=== PATIENT | male | born 1965 | race Caucasian/White ===

== ENCOUNTER 2018-01-26 13:25 | Emergency (ER) | payer SELFPAY ==
[2018-01-26 13:26] VITALS: BP 210/106; PULSE 101; RESP 18; TEMP 35.7; O2SAT 96; BMI 48.7
--- NOTE | 2018-01-26 13:35 | CT_ITS ---
STUDY: CT ABDOMEN AND PELVIS WITHOUT CONTRAST REASON FOR EXAM: Male, 52 years old. Pain, hernia RADIATION DOSAGE (If Supplied By Facility): CTDIvol = ( 33.97 ) mGy, DLP = ( 2071.05 ) mGycm TECHNIQUE: Transaxial images were obtained from the dome of the diaphragm to the symphysis pubis without oral contrast, and without intravenous contrast. Sagittal and coronal images were reconstructed. Individualized dose optimization techniques were used for this CT. COMPARISON: None. FINDINGS: Body wall soft tissues: Wall portions of the right and left anterior lateral abdominal wall are partially excluded from the field of view and not dilated. There is a tiny fat filled umbilical hernia. There is no inguinal hernia. Osseous structures: No acute osseous process. Inferior chest: Bibasilar bronchial wall thickening with mild tubular bronchiectasis, in a pattern most consistent with chronic inflammation/infection/chronic bronchiolitis. This could potentially reflect chronic low-grade aspiration. Close attention is advised. A follow-up CT chest for evaluation of the remainder of each Distal esophagus is normal. The cardiac base is normal in size with no effusion. Coronary calcifications are present. Hepatobiliary: Craniocaudal liver 24 cm, hepatomegaly. Normal gallbladder and biliary tree. Pancreas: No acute process. Spleen: Normal. Adrenal glands: Normal. Urogenital: Chronic bilateral perinephric stranding. Punctate nonobstructing calyceal calculus left renal lower pole, 3 punctate nonobstructing calyceal calculus of the right kidney mid to lower pole. Each of these calculi measures less than 2 mm. There is a cyst of the right renal inferior pole measuring approximately 2.9 cm in diameter, a small portion of which is exophytic, round shape with sharply circumscribed cuello. Grossly simple cystic features but incompletely characterized. Collecting systems and ureters are nondilated. Normal urinary bladder. Normal prostate and seminal vesicles. Pelvic floor and sidewalls and retroperitoneum: No mass or adenopathy. Vasculature: No acute process. Stomach: No acute process. Small bowel and mesentery: No acute process. Large bowel: Normal appendix. Unremarkable large bowel and rectum. Free fluid or free air: None. CT/Abdomen/Pelvis without Cont IMPRESSION: 1. There is a small fat filled umbilical hernia, likely of no clinical consequence. 2. Hepatomegaly. 3. Nonobstructing calyceal calculi of the right and left kidneys. No evidence of recent calculus passage. 4. No other acute abdominopelvic process is evident. Electronically Signed: Renny Jo, at 15:30 EDT Tel , Service support ,
--- NOTE | 2018-01-26 13:37 | ED.DCSUM_ITS ---
- ER Visit Summary Date of Service: 01/26/18 Chief Complaint: I think I have a hernia History of Present Illness: The patient is a 52 M who believes he has a hernia. He has felt pressure in his left upper quadrant for 1 month. No nausea, vomiting, diarrhea or constipation. No urinary symptoms. He has no history of hernias in the past that his has had a hernia. No history of any abdominal surgeries. He states he has a history of fatty liver disease. Physical Examination: Vital signs reviewed. HEENT exam unremarkable. Heart is regular rate and rhythm without murmurs. Lungs are clear to auscultation. Abdomen is soft and nontender. Extremities reveal no edema. Skin exam normal. Neurologic exam normal. Test Results: Labs are unremarkable except for glucose of 192. CAT scan reveals a very small umbilical hernia with other chronic issues. Emergency Department Course and Treatment: Patient has a very small umbilical hernia. It is not causing the pain and pressure in his left upper quadrant. Patient will be discharged he will follow-up with the surgeon for the small hernia. Treatment Plan: [] Disposition: Discharge Impression: Umbilical hernia This note was generated with [employer] dictation software. It may contain incorrect words, spelling, and punctuation that were not noted in review of the chart prior to signing ED Disposition - Plan for ED Patient: Chief Complaint: Abd Pain Referrals: Vimal White DO [Primary Care Provider] -
[2018-01-26] MEDS: 0.9% Normal Saline 1,000 ML 1000 ML IV (13:59)
[2018-01-26 14:03] VITALS: BP 172/85; PULSE 91; RESP 16; O2SAT 98
[2018-01-26 14:05] LABS: Absolute Lymphocyte Count 2.04 X10^3/ul (0.83-4.51); Basophil# 0.07 X10^3/uL; Basophil% 0.8 % (0-1); Eosinophils% 4.5 % (0-5); Hematocrit 41.9 % (40-54); Hemoglobin 14.2 g/dl (13.0-16.5); Lymphocyte # 2.04 X10^3/ul (4.0); Lymphocyte % 22.8 % (19-41); Mean Corp Hgb Conc 33.9 g/gl (32-36); Mean Corpuscular Hgb 32.1 pg (27.0-32.0); Mean Corpuscular Volume 94.6 fL (80-94); Mean Platelet Vol. 9.9 fl (6.2-12.0); Monocyte% 4.5 % (0-10); Neutrophil # 6.02 X10^3/uL (2.7-7.7); Neutrophil % 67.2 % (47-70); Platelet Count 178 K/mm3 (150-450); RBC Distribution Width SD 43.4 fl (35.1-43.9); Red Blood Count 4.43 M/mm3 (4.6-6.2)
[2018-01-26 14:11] LABS: POSITIVE COUNT NO; POSITIVE DIFFERENTIAL NO; POSITIVE MORPHOLOGY NO
[2018-01-26 14:15] LABS: ALB/GLOB Ratio 0.9 RATIO (0.9-2.4); AST(SGOT) 28 U/L (15-37); Alanine Aminotransfer ALT/SGPT 26 U/L (16-61); Albumin, Serum 3.5 g/dL (3.2-5.0); Alkaline Phosphatase 101 U/L (45-117); Anion Gap 6 (5-15); BUN 9 mg/dL (7-18); BUN/Creat Ratio 9.6 RATIO (10-20); Chloride 104 mmol/L (98-107); Creatinine, Serum 0.93 mg/dL (0.70-1.30); EST Glomerular Filtration Rate 90 mL/min (>60); Est Glom Filt Rate - Afr Amer 109 mL/min (>60); Estimated Creatinine Clearance 92.92 ml/min; Globulin 3.9 g/dL (2.2-4.2); Glucose 192 mg/dL (74-106); Potassium 3.5 mmol/L (3.5-5.1); Protein, Total 7.4 g/dL (6.4-8.2); Sodium Level 138 mmol/L (136-145)
--- NOTE | 2018-01-26 15:40 | ED.DEP ---
ED Disposition - Plan for ED Patient: Disposition: Home or Assisted Living Chief Complaint: Abd Pain Instructions: What Is a Hernia? Referrals: Vimal White DO [Primary Care Provider] -
[2018-01-26 16:04] VITALS: BP 168/94; PULSE 80; RESP 16; O2SAT 97
== END 2018-01-26 16:06 | disposition home or self-care (01) ==
PROVIDERS: Emergency Provider Emergency Medicine; Family Provider Student in an Organized Health Care Education/Training Program; PCP Student in an Organized Health Care Education/Training Program
DX: K42.9 Umbilical hernia without obstruction or gangrene (principal); K76.0 Fatty (change of) liver, not elsewhere classified
CPT/HCPCS: 74176; 80053; 85025; 96360; 96361; 99283; J7030; A4216

== ENCOUNTER 2018-04-13 13:26 | Emergency (ER) | payer SELFPAY ==
[2018-04-13 13:27] VITALS: BP 175/97; PULSE 83; RESP 18; TEMP 36.1; O2SAT 97; BMI 47.9
--- NOTE | 2018-04-13 14:15 | EKG12_ITS ---
Test Reason : GEN ILLNESS Blood Pressure : / mmHG Vent. Rate : 072 BPM Atrial Rate : 072 BPM P-R Int : 206 ms QRS Dur : 100 ms QT Int : 392 ms P-R-T Axes : 052 000 103 degrees QTc Int : 429 ms Normal sinus rhythm Nonspecific T wave abnormality Abnormal ECG Confirmed by BREANNA HODGES, MONET ([id number]), clinical editor IMAN PAEZ ([id number]) on 04/15/2018 1:27:40 PM Referred By: JUAN DAVID Confirmed By:MONET CARLOS MD
--- NOTE | 2018-04-13 14:15 | RAD_ITS ---
STUDY: X-RAY CHEST REASON FOR EXAM: Male, 52 years old. Fatigue. Weakness and muscle cramping. TECHNIQUE: PA and lateral views of the chest. COMPARISON: Comparison is made with prior study dated April 11 FINDINGS: Increased markings at the left lung base with areas of confluence suggestive of a left basilar infiltrate. Mild increased markings at the right lung base suggestive of atelectasis. There is no demonstrated pleural abnormality. There is borderline cardiomegaly. Normal mediastinum and kalia. Normal visualized pulmonary arteries. There is atherosclerotic tortuosity of the aortic arch and descending thoracic aorta. There are diffuse degenerative changes of the visualized thoracic spine. Normal visualized ribs, clavicles, and shoulders. There is no demonstrated abnormality of the visualized soft tissue structures of the upper abdomen. RAD/Chest PA and Lateral IMPRESSION: 5 suggestive of infiltration and/or atelectasis at the left lung base with mild degree of increased markings at the right lung base as well. Electronically Signed: Hernando Cook MD at 15:34 EDT Tel [phone], Service support ,
[2018-04-13] MEDS: 0.9% Normal Saline 1,000 ML 1000 ML IV (14:34)
--- NOTE | 2018-04-13 15:00 | ED.VISSUMM ---
- ER Visit Summary Date of Service: 04/13/18 Chief Complaint: Generalized weakness History of Present Illness: The patient is a 52 M presents to the emergency department with approximately 6 weeks of generalized weakness. Patient does have a history of hypothyroidism, hypertension, and tdo-izigvly-rsrawykuo diabetes. He states he is not really been compliant with his medications. He describes some diffuse muscle aches and arthralgias. He describes low energy. He has had a scant cough. He denies any weight loss, fevers, or night sweats. He denies exertional dyspnea. The patient did have similar symptoms before when his thyroid was low. Physical Examination: Vital signs reviewed General: Well-nourished, well-developed Head: Normocephalic, atraumatic Eyes: Pupils equal and reactive, extraocular muscles intact Neck, supple, no lymphadenopathy Heart: Regular rate and rhythm Respiratory: No distress, clear bilaterally Abdomen: Soft, nontender, nondistended, no peritoneal signs Back: Nontender Extremities: Nontender, no edema, no cords Skin: Normal color no rash Neuro: Alert and oriented, no focal or lateralizing deficits Test Results: [] Emergency Department Course and Treatment: Metabolic workup was pursued. IV was established. Patient was given IV fluids. EKG was obtained which showed sinus rhythm without acute ischemic change. Labs are relatively unremarkable except for a markedly decreased thyroid with a TSH of almost 60. The patient does have the same symptoms before secondary to not taking his medications. I was going to order IV replacement, but the patient is able to tolerate p.o. He is given a large dose of 400 which is equivalent to 200 IV. His x-ray shows atelectasis versus infiltrate in the left base. He has had a scant cough. Again, is not hypoxic or tachypneic. He does smoke. I am going to cover him for atypical infection with doxycycline. The patient was counseled on the importance of taking his medications. At this time, I do feel it is safe for outpatient therapy. He will be discharged home. Treatment Plan: [] Disposition: Discharge Impression: 1. Hypothyroidism 2. Bronchitis This note was generated with [employer] software. It may contain incorrect words, spelling, and punctuation that were not noted in review of the chart prior to signing ED Disposition - Plan for ED Patient: Chief Complaint: General Illness Instructions: ED Upper Resp Infec Abx Tx, ED Hypothyroidism Prescriptions: Levothyroxine [Synthroid] 75 mcg PO DAILY #30 tab Doxycycline Monohydrate 100 mg PO BID #20 cap Referrals: Vimal White DO [Primary Care Provider] -
[2018-04-13 15:07] LABS: ALB/GLOB Ratio 0.8 RATIO (0.9-2.4); AST(SGOT) 38 U/L (15-37); Alanine Aminotransfer ALT/SGPT 37 U/L (16-61); Albumin, Serum 3.6 g/dL (3.2-5.0); Alkaline Phosphatase 96 U/L (45-117); Anion Gap 7 (5-15); BUN 11 mg/dL (7-18); BUN/Creat Ratio 9.5 RATIO (10-20); Calcium,Total 8.3 mg/dL (8.5-10.1); Chloride 99 mmol/L (98-107); Creatinine, Serum 1.16 mg/dL (0.70-1.30); EST Glomerular Filtration Rate 70 mL/min (>60); Est Glom Filt Rate - Afr Amer 85 mL/min (>60); Estimated Creatinine Clearance 74.49 ml/min; Globulin 4.5 g/dL (2.2-4.2); Glucose 146 mg/dL (74-106); Potassium 3.5 mmol/L (3.5-5.1); Protein, Total 8.1 g/dL (6.4-8.2); Sodium Level 138 mmol/L (136-145)
[2018-04-13 15:14] LABS: Absolute Lymphocyte Count 1.88 X10^3/ul (0.83-4.51); Absolute Neutrophil Count 6.5 X10^3/uL (2.0-7.7); Basophil# 0.05 X10^3/uL; Basophil% 0.5 % (0-1); Eosinophils% 3.3 % (0-5); Hematocrit 43.6 % (40-54); Hemoglobin 14.4 g/dl (13.0-16.5); Lymphocyte # 1.88 X10^3/ul (4.0); Lymphocyte % 20.6 % (19-41); Mean Corpuscular Hgb 31.8 pg (27.0-32.0); Mean Corpuscular Volume 96.2 fL (80-94); Mean Platelet Vol. 10.3 fl (6.2-12.0); Monocyte# 0.36 X10^3/uL; Monocyte% 3.9 % (0-10); Neutrophil # 6.51 X10^3/uL (2.7-7.7); Neutrophil % 71.5 % (47-70); Platelet Count 198 K/mm3 (150-450); RBC Distribution Width CV 14.2 % (11.6-14.6); RBC Distribution Width SD 50.3 fl (35.1-43.9); Red Blood Count 4.53 M/mm3 (4.6-6.2); White Blood Count 9.1 K/mm3 (4.4-11.0)
[2018-04-13 15:15] LABS: POSITIVE COUNT NO; POSITIVE DIFFERENTIAL NO; POSITIVE MORPHOLOGY NO
[2018-04-13] MEDS: Levothyroxine 100 MCG Tablet 400 MCG PO (15:38)
[2018-04-13 15:47] VITALS: BP 145/84; PULSE 72; RESP 18
== END 2018-04-13 15:47 | disposition home or self-care (01) ==
LOC: ED 14:43
PROVIDERS: Emergency Provider Emergency Medicine; Family Provider Student in an Organized Health Care Education/Training Program; PCP Student in an Organized Health Care Education/Training Program
DX: E03.9 Hypothyroidism, unspecified (principal); J40 Bronchitis, not specified as acute or chronic; I10 Essential (primary) hypertension; E11.9 Type 2 diabetes mellitus without complications; E66.9 Obesity, unspecified; Z72.0 Tobacco use; Z91.14 Patient's other noncompliance with medication regimen
CPT/HCPCS: 71046; 80053; 84443; 85025; 93005; 96360; 99285; A4216

== ENCOUNTER 2018-07-07 08:53 | Outpatient (RCR) | payer SELFPAY ==
[2018-07-07 09:13] VITALS: BP 149/98; PULSE 78; RESP 18; TEMP 36.8; BMI 53.1
--- NOTE | 2018-07-07 10:20 | HP.PCM_ITS ---
(1) Leg swelling Status: Chronic Current Visit: Yes Code(s): M79.89 - Other specified soft tissue disorders (2) Edema of both legs Status: Chronic Current Visit: Yes Code(s): R60.0 - Localized edema (3) Dependent edema Status: Chronic Current Visit: Yes Code(s): R60.9 - Edema, unspecified (4) Diabetes mellitus Status: Chronic Current Visit: Yes Qualifiers: Diabetes mellitus type: type 2 Code(s): E11.9 - Type 2 diabetes mellitus without complications (5) Morbid obesity with BMI of 50.0-59.9, adult Status: Chronic Current Visit: Yes Code(s): E66.01 - Morbid (severe) obesity due to excess calories; Z68.43 - Body mass index (BMI) 50-59.9, adult (6) Poor hygiene Status: Chronic Current Visit: Yes Code(s): R46.0 - Very low level of personal hygiene (7) Hypertension Status: Chronic Current Visit: No Code(s): I10 - Essential (primary) hypertension (8) Hypothyroidism Status: Chronic Current Visit: No Qualifiers: Hypothyroidism type: postoperative Qualified Code(s): E89.0 - Postprocedural hypothyroidism Code(s): E03.9 - Hypothyroidism, unspecified (9) Depression Status: Chronic Current Visit: No Code(s): F32.9 - Major depressive disorder, single episode, unspecified (10) Callus of foot Status: Chronic Current Visit: Yes Code(s): L84 - Corns and callosities (11) Hypertrophic condition of skin Status: Chronic Current Visit: Yes Code(s): L91.9 - Hypertrophic disorder of the skin, unspecified (12) History of thyroid cancer Status: Chronic Current Visit: No Code(s): Z85.850 - Personal history of malignant neoplasm of thyroid History of Present Illness Date of Service: 07/07/18 Chief Complaint: Chronic swelling and edema of the lower extremities, associated with skin changes of the right great toe and left posterior calf History of Wound: This is a 53-year-old morbidly obese male with multiple medical problems, which include diabetes mellitus, hypertension, hypothyroidism, depression, and a history of thyroid cancer. The patient presents with significant skin changes involving the left posterior calf and on the right great toe. These do not appear to be josé luis open ulcerations at this time. The patient has a history of chronic swelling and edema in his lower extremities bilaterally. It appears to be due to chronic dependency. The patient sleeps in a sitting position. He sits a great deal of each day. He claims to be active, though his lifestyle, pre-existing medical conditions, and need to assist his ill likely limit his activity level. Patient claims to have had skin changes on the left posterior calf for many months. He has a large callus on his right great toe as well, which she admits is likely due to poorly-fitted boots. He is currently on a prescription for Keflex orally, as prescribed by his primary care physician. Past Medical History Past Medical History: Chronic Problems Leg swelling (Chronic) Edema of both legs (Chronic) Dependent edema (Chronic) Diabetes mellitus (Chronic) Morbid obesity with BMI of 50.0-59.9, adult (Chronic) Poor hygiene (Chronic) Hypertension (Chronic) Hypothyroidism (Chronic) Depression (Chronic) Callus of foot (Chronic) Hypertrophic condition of skin (Chronic) History of thyroid cancer (Chronic) Past Medical History: The patient denies a history of myocardial infarction, congestive heart failure, cerebrovascular accident, pulmonary disease, and renal disease. He has a history of thyroid cancer. He has a history of diabetes mellitus, hypertension, hypothyroidism (postsurgical), depression, and morbid obesity. Surgical History: - - Patient has previously undergone partial thyroidectomy. He has also undergone left knee surgery in the past. Allergies/Adverse Reactions: Allergies No Known Allergies Allergy (Verified 04/13/18 13:31) Home Medications: Ambulatory Orders Medication Instructions Recorded Aspirin [Aspir-Low] 81 mg PO DAILY 04/11/17 Citalopram Hydrobromide [Celexa] 40 mg PO DAILY #60 tablet 04/11/17 Levothyroxine [Synthroid] 75 mcg PO DAILY 04/11/17 Lisinopril [Zestril] 10 mg PO DAILY 04/11/17 Metformin HCl 500 mg PO BID 04/11/17 Simvastatin 20 mg PO QHS 05/29/17 Penicillin V Potassium 500 mg PO 4X/DAY #40 tablet 07/16/17 Doxycycline Monohydrate 100 mg PO BID #20 cap 04/13/18 Levothyroxine [Synthroid] 75 mcg PO DAILY #30 tab 04/13/18 - Family History Paternal - - The patient's father is 78 years of age, with a history of diabetes mellitus, alcoholism, and heart disease. The patient's mother is , having at the age of 73 with a history of cerebrovascular accident. Social History: The patient lives with his sick , who suffers from morbid obesity, Parkinson's disease, and diabetes mellitus, among other elements. The patient claims he spends a great deal of his time tending to her medical needs. 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 He quit smoking in the . He is a former heavy user of alcohol, having quit approximately 26 years ago, now only drinking occasionally. Lives: Spouse/ Significant Other Smoking Status: Former smoker Tobacco Use: Non-smoker Alcohol: Rare Drugs: None Review of Systems Constitutional: Denies: Chills, Fever, Weight Change Eyes: Denies: Pain, Vision Change HEENT: Denies: Difficulty Hearing, Difficulty Swallowing, Sinus Congestion Cardiovascular: Denies: Chest Pain, Palpitations Respiratory: Denies: Cough, Shortness of Breath Gastrointestinal: Denies: Diarrhea, Nausea, Vomiting Genitourinary: Denies: Dysuria, Hematuria Endocrine: Denies: Heat/ Cold Intolerance, Polydipsia, Polyuria Hematologic/ Lymphatic: Denies: Easy Bruising, Easy Bleeding - Physical Exam Vital Signs Temp Pulse Resp BP 98.2 F 78 18 149/98 H 07/07/18 09:13 07/07/18 09:13 07/07/18 09:13 07/07/18 09:13 General: Alert, Oriented x3, Cooperative, No apparent distress, Well developed, Well nourished, - - The patient is morbidly obese. The patient's hygiene is suboptimal. It appears as though he has not bathed or showered in quite some time, with dirt noted diffusely about his body and limbs. Furthermore, there is an odor which corresponds to the patient's appearance. HEENT: Atraumatic, PERRLA, EOMI, Normocephalic Oral: Moist Mucosa, - - Poor dentition is noted Neck: Supple, No JVD, Negative Hepatojugular Reflux, No Nuchal Rigidity, Trachea Midline Lungs: Clear to auscultation, Normal air movement, No rhonchi Cardiovascular: Regular rate, Regular Rhythm, Normal S1, Normal S2 Abdomen: Soft, Non Tender, Non-Distended, Obese Extremities: No clubbing, No cyanosis, No Calf Tenderness, Edema - Bilateral lower extremity swelling and edema is noted. It is rather significant in severity. Circumference measurements are documented elsewhere. The left posterior calf reveals diffusely hypertrophic skin with multiple fissures and crevices. There are no josé luis open wounds or ulcerations. There is a very large callus involving the right great toe, though no josé luis open wounds. Patient's toenails are extremely long and untended. Dirt and debris is caked on the the digits of the patient's feet., - - The left posterior calf reveals diffusely hypertrophic skin with multiple fissures and crevices. There are no josé luis open wounds or ulcerations. There is a very large callus involving the right great toe, though no josé luis open wounds. Patient's toenails are extremely long and untended. Dirt and debris is caked on the the digits of the patient's feet. Multiple skin tags are noted in the patient's axillary regions bilaterally. Skin: No rashes Wound Measurements and Assessment WC - Nurse 1 - General Ulcer Measurement Start: 07/07/18 09:04 Freq: Status: Active Protocol: Activity Type Activity Date Activity User E-Sign Co-Sign Detail Recorded Client Recorded Date Recorded By Document 07/07/18 09:13 AN [id number] 07/07/18 09:48 AN 07/07/18 09:13 Wound Center Nurse 1 [Ulcer Assessment] #2 Right great toe plantar -Current Size (cm) - Length 0.7 -Current Size (cm) - Width 0.3 -Current Size (cm) - Depth 0.4 -Total Square Cm 0.21 -Date of Last Picture (Recall this 07/07/18 field) -Photo Taken Yes -Epithelialization None Present -Tunneling No -Undermining/Tunneling No -Classification - Thickness Full Thickness without Exposed Support Structure -Classification - Pressure Ulcer Unstageable -Exudate Amt Small -Exudate Type Serous -Wound Margin Distinct, Outline Attached -Granulation Amt None Present (0 %) -Necrosis Amt Large (67-100%) -Necrotic Tissue Type Eschar -Texture (Capri-wound Skin Appearance) Callus -Temperature (Capri-wound Skin No Abnormality Appearance) (Pt Warm) -Tenderness on Palpation (Capri-wound No Skin Appearance) -Ulcer Cleansing Rinsed/ Irrigated with Saline -Foul Odor after Cleansing Yes -Anesthetic Used 4% Lidocaine Solution #1 left posterior calf -Current Size (cm) - Length 16 -Current Size (cm) - Width 21 -Current Size (cm) - Depth 0.1 -Total Square Cm 336 -Date of Last Picture (Recall this 07/07/18 field) -Photo Taken Yes -Epithelialization None Present -Tunneling No -Undermining/Tunneling No -Classification - Thickness Full Thickness without Exposed Support Structure -Exudate Amt Large -Exudate Type Serosanguineous -Wound Margin Indistinct, Non -Visible -Granulation Amt Small (1-33%) -Granulation Quality [place] -Slough/Fibrin Yes -Necrosis Amt Large (67-100%) -Necrotic Tissue Type Adherent Slough -Texture (Capri-wound Skin Appearance) Localized Edema -Moisture (Capri-wound Skin Appearance Weeping ) Dry/Scaly -Color (Capri-wound Skin Appearance) Erythema -Temperature (Capri-wound Skin No Abnormality Appearance) (Pt Warm) -Tenderness on Palpation (Capri-wound No Skin Appearance) -Ulcer Cleansing Rinsed/ Irrigated with Saline -Foul Odor after Cleansing Yes -Anesthetic Used 4% Lidocaine Solution [Edema Assessment] -Right Calf (cm) 54.5 -Right Ankle (cm) 32.5 -Left Calf (cm) 53.6 -Left Ankle (cm) 33.8 Musculoskeletal: No Muscle Wasting Neurological: Cranial nerves II-XII grossly intact, Neuro grossly intact Psych/Mental Status: Normal Affect, Appropriate, Alert and oriented to time, place, person, mood and affect Debridement Note No debridement was completed today Assessment/Plan Active Problems Leg swelling (Chronic) Edema of both legs (Chronic) Dependent edema (Chronic) Diabetes mellitus (Chronic) Morbid obesity with BMI of 50.0-59.9, adult (Chronic) Poor hygiene (Chronic) Callus of foot (Chronic) Hypertrophic condition of skin (Chronic) Assessment: This is a 53-year-old morbidly obese male with medical problems as delineated above. He presents with chronic swelling and edema in his lower extremities, which appears to be related to chronic dependency. Skin changes are noted on the left posterior calf and on the right great toe. Initial inspection reveals no josé luis open wounds. Plan: We are to initiate a diagnostic evaluation. Blood tests will be obtained, including a CBC, conference of metabolic profile, hemoglobin A1c, and a serum prealbumin. We are to obtain lower extremity vascular studies, both a noninvasive lower extremity arterial study and a venous duplex examination. Patient will return following completion of his diagnostic studies. We are to implement conservative treatment measures initially, which have been discussed with the patient thoroughly and in detail. Patient is to elevate his lower extremities as much as possible. Elevation is to be to heart level, or higher. This is to occur even during daytime hours. He is to sleep on a flat mattress at night, rather than in a sitting position. Activity has been encouraged. Prolonged idle sitting has been discouraged. The patient has been advised to lose weight. Ultimately, following completion of his vascular studies, the patient will be introduced to some form of compression to his lower extremities. This will likely involve either [place] boots or multilayer compression wraps, and ultimately graduated compression stockings, which can be worn for the long-term. Issues related to hygiene are clearly an issue for this patient. This has been discussed with the patient. He has been encouraged to improve hygiene, and to bathe or shower frequently. We are to request consultation with podiatry for assessment of the callus on the patient's right great toe, counseling as to proper foot care, implementation of proper footwear, and trimming of the patient's toenails, as he is known to be diabetic. The patient is non-smoker. Influenza vaccine was not administered today. The patient stands 5 feet 9 inches tall. He weighs 260 pounds. His BMI is 53.1, which places him in a morbidly obese, stage III obesity category. Weight loss has been recommended, in collaboration with the patient's primary care physician has been advised.
== END 2018-07-23 23:59 ==
LOC: WC 08:53
PROVIDERS: Family Provider Student in an Organized Health Care Education/Training Program; PCP Student in an Organized Health Care Education/Training Program; Visit Provider Surgery
DX: R60.0 Localized edema (principal); M79.89 Other specified soft tissue disorders; E66.9 Obesity, unspecified; E66.01 Morbid (severe) obesity due to excess calories; Z68.43 Body mass index [BMI] 50.0-59.9, adult; Z71.3 Dietary counseling and surveillance; I10 Essential (primary) hypertension; L84 Corns and callosities; Z85.850 Personal history of malignant neoplasm of thyroid; E03.9 Hypothyroidism, unspecified; F32.9 Major depressive disorder, single episode, unspecified; Z79.899 Other long term (current) drug therapy; Z79.82 Long term (current) use of aspirin; Z79.84 Long term (current) use of oral hypoglycemic drugs; Z87.891 Personal history of nicotine dependence
CPT/HCPCS: 99205; G0463

== ENCOUNTER 2018-10-28 23:27 | Emergency (ER) | payer SELFPAY ==
[2018-10-28 23:28] VITALS: BP 185/103; PULSE 92; RESP 16; TEMP 37; O2SAT 95; BMI 54.6
--- NOTE | 2018-10-28 23:44 | CT_ITS ---
STUDY: CT ABDOMEN AND PELVIS WITHOUT CONTRAST REASON FOR EXAM: Male, 53 years old. Left flank pain RADIATION DOSAGE (If Supplied By Facility): CTDIvol = ( 24.18 ) mGy, DLP = ( 2502.97 ) mGycm TECHNIQUE: Transaxial images were obtained from the dome of the diaphragm to the symphysis pubis without oral contrast, and without intravenous contrast. Sagittal and coronal images were reconstructed. Individualized dose optimization techniques were used for this CT. COMPARISON: None. FINDINGS: The platelike atelectatic changes in the lung bases-especially the left The liver is normal. No dilated intrahepatic biliary radicles. The gallbladder is contracted and contains no calculi. The spleen is normal. The pancreas is normal. Both adrenals are normal. Nonobstructing calyceal calculi bilaterally. 3 are in the right kidney with the largest measuring 1.2 cm 2. Are in the left kidney with the larger measuring 3.7 mm. No hydronephrosis The stomach is normal. There is no bowel distention, acute appendicitis or diverticulitis. No constricting lesions are seen in large bowel. The abdominal wall is intact with no hernias. There is no ascites or any free intraperitoneal air. No indication of epiploic appendagitis The vascular structures in the retroperitoneum are normal. There is no retrocrural, retroperitoneal or mesenteric adenopathy. The bones and joints are normal. The urinary bladder is normal.--The prostate is normal. There is no inguinal or pelvic adenopathy. There is no inguinal hernia. . CT/Abdomen/Pelvis without Cont IMPRESSION: Nonobstructing calyceal calculi bilaterally. No acute appendicitis or diverticulitis. Bibasilar platelike atelectatic changes Electronically Signed: Ender Siddiqui MD at 1:04 EDT Tel , Service support ,
--- NOTE | 2018-10-28 23:47 | RAD_ITS ---
STUDY: X-RAY CHEST REASON FOR EXAM: Male, 53 years old. Cough TECHNIQUE: One view COMPARISON: April 13, 2018 FINDINGS: There is cardiomegaly with central vascular congestive changes. Platelike atelectatic changes remain in the left lung base. This is slightly elevated left hemidiaphragm. Normal visualized thoracic spine. Normal visualized ribs, clavicles, and shoulders. There is no demonstrated abnormality of the visualized soft tissue structures of the upper abdomen. RAD/Chest PA and Lateral IMPRESSION: Cardiomegaly with central vascular congestion. Platelike atelectatic changes in the left lung base Electronically Signed: Ender Siddiqui MD at 0:57 EDT Tel , Service support ,
--- NOTE | 2018-10-28 23:59 | ED.DCSUM_ITS ---
- ER Visit Summary Date of Service: 10/28/18 Chief Complaint: Abdominal pain History of Present Illness: The patient is a 53 M who presents for 4 months of abdominal pain. Patient states he has an upset stomach and left upper quadrant pain, and he has been working with his primary care doctor's nurse practitioner for it. He has been on Pepto-Bismol but denies being on any prescription medicines for it. He denies any nausea, vomiting, diarrhea or urinary symptoms. His concern today is that he is felt more tired and he had a panic attack last night. Patient has a history of hypothyroidism and GERD. Patient is a poor historian and is unable to give many details about why he is here today. He does state his is in hospice at this time. He denies any current alcohol or tobacco use. Physical Examination: Vital signs: afebrile, hemodynamically stable, no hypoxia on room air General: well nourished, well developed, BMI of 55, unkempt appearing, in no distress Skin: warm, dry, no rash, no pallor, significant acanthosis nigra cans of the neck HEENT: normocephalic and atraumatic; PERRL, EOMI, bilateral watery discharge and mild conjunctival injection, moist mucous membranes Cardiovascular: regular rate and rhythm without murmurs, 2+ radial pulses Respiratory: No increased work of breathing, lungs are clear to auscultation bilaterally, no rales, rhonchi or wheezing Abdominal: Abdomen is soft, obese, nontender with normoactive bowel sounds, no guarding or rebound, no masses MSK: Moves all extremities, no deformities, normal strength Neuro: Awake and alert, oriented ?4. No facial droop, sensation and motor function intact and symmetric Test Results: Abnormal Lab Results 10/28/18 10/29/18 10/29/18 23:59 00:10 00:10 WBC 8.6 RBC 4.86 Hgb 15.1 Hct 45.6 MCV 93.8 MCH 31.1 MCHC 33.1 RDW 14.1 RDW Differential 48.4 H Plt Count 104 L MPV 11.4 Immature Gran % (Auto) 0.100 Neut % (Auto) 69.6 Lymph % (Auto) 22.0 [place] % (Auto) 4.6 Eos % (Auto) 3.3 Baso % (Auto) 0.4 Absolute Neuts (auto) 6.0 Absolute Lymphs (auto) 1.88 Total Counted Not Reportable Sodium 133 L Potassium 3.3 L Chloride 97 L Carbon Dioxide 31.0 Anion Gap 5 BUN 8 Creatinine 1.04 Estim Creat Clear Calc 82.14 Est GFR (MDRD) Af Amer 96 Est GFR (MDRD) Non-Af 79 BUN/Creatinine Ratio 7.7 L Glucose 251 H Calcium 7.7 L Total Bilirubin 0.30 AST 37 ALT 34 Alkaline Phosphatase 131 H Total Protein 8.3 H Albumin 4.0 Globulin 4.3 H Albumin/Globulin Ratio 0.9 Lipase 202 TSH 60.90 H Free T4 Urine Color Urine Clarity Urine pH Ur Specific [place] Urine Protein Urine Glucose (UA) Urine Ketones Urine Occult Blood Urine Nitrite Urine Bilirubin Urine Urobilinogen Ur Leukocyte Esterase Urine RBC Urine WBC Ur Squamous Epith Cells Urine Bacteria Urine Mucus POC Glucose 268 H 10/29/18 10/29/18 00:10 00:27 WBC RBC Hgb Hct MCV MCH MCHC RDW RDW Differential Plt Count MPV Immature Gran % (Auto) Neut % (Auto) Lymph % (Auto) [place] % (Auto) Eos % (Auto) Baso % (Auto) Absolute Neuts (auto) Absolute Lymphs (auto) Total Counted Sodium Potassium Chloride Carbon Dioxide Anion Gap BUN Creatinine Estim Creat Clear Calc Est GFR (MDRD) Af Amer Est GFR (MDRD) Non-Af BUN/Creatinine Ratio Glucose Calcium Total Bilirubin AST ALT Alkaline Phosphatase Total Protein Albumin Globulin Albumin/Globulin Ratio Lipase TSH Free T4 0.16 L Urine Color Straw Urine Clarity Clear Urine pH 7.0 Ur Specific [place] 1.010 Urine Protein Negative Urine Glucose (UA) 250 H Urine Ketones Negative Urine Occult Blood Negative Urine Nitrite Negative Urine Bilirubin Negative Urine Urobilinogen Normal Ur Leukocyte Esterase Negative Urine RBC 0 SEEN Urine WBC 0-5 SEEN Ur Squamous Epith Cells 0-5 SEEN Urine Bacteria 0 SEEN Urine Mucus 0 SEEN POC Glucose Medications Given Discontinued Medications Al Hydroxide/Mg Hydroxide (Mylanta Ii) 30 ml PO X1 ONE Stop: 10/28/18 23:44 Last Admin: 10/29/18 00:47 Dose: 30 ml Sodium Chloride () 1,000 mls @ 1,000 mls/hr IV .Q1H ONE Stop: 10/29/18 00:42 Last Admin: 10/29/18 00:57 Dose: 1,000 mls/hr Levothyroxine Sodium (Synthroid) 150 mcg PO X1 ONE Stop: 10/29/18 01:44 Lidocaine HCl (Xylocaine Viscous) 15 ml PO X1 ONE Stop: 10/28/18 23:44 Last Admin: 10/29/18 00:47 Dose: 15 ml Multi-Ingredient GI Drug () 1 each PO X1 ONE Stop: 10/28/18 23:44 Last Admin: 10/29/18 00:47 Dose: 1 each Emergency Department Course and Treatment: Patient presents with vague complaints with nothing acute, mainly abdominal discomfort for 4 months for which he is seeing his primary care doctor and feeling tired for the last month. Patient is a poor historian and does not seem health literate, thus a comprehensive work-up was performed to look for underlying issues contributing to the patient's ongoing symptoms. Patient's blood sugar is elevated but no signs of DKA or HHS. Patient was given IV fluids due to complaint of feeling dehydrated. Patient's TSH was significantly elevated at 60, with a free T4 low at 0.16. Patient was questioned about his thyroid medications, and he does not know the dose. He then stated he has not been taking them and he thinks he is out of them. Patient was given an initial dose of levothyroxine in the emergency department of 150 mcg, and a prescription for his normal dose was written so that he can resume the medication. Patient was strongly encouraged to follow-up as soon as possible with his primary care doctor to get his hypothyroidism back under control. We discussed that his tiredness could easily be related to his hypothyroidism. Patient did not have any concerning findings on his physical exam for myxedema that would be an emergent hypothyroid crisis. Patient CT of his abdomen and pelvis did not show any acute findings concerning for his ongoing complaint of the upper abdominal pressure and discomfort. Patient did receive a GI cocktail. On reevaluation he was well-appearing and in no distress. Patient was discharged home and again strongly encouraged to follow-up as soon as possible with his primary care doctor to get his health care needs back under close management. Treatment Plan: [] Disposition: [] Impression: Hypothyroidism, medication noncompliance This note was generated with [employer]cher[employer]ation software. It may contain incorrect words, spelling, and punctuation that were not noted in review of the chart prior to signing ED Disposition - Plan for ED Patient: Disposition: Home or Assisted Living Instructions: ED Abdominal Pain Unkn Cause, ED Hypothyroidism Prescriptions: Levothyroxine [Synthroid] 75 mcg PO DAILY 30 Days #30 tab Referrals: Vimal White DO [Primary Care Provider] - As soon as possible Additional Instructions: You have been given refills of your hypothyroidism medication, levothyroxine. Take it every morning before breakfast. Do not miss any doses. Please follow- up as soon as possible with your doctor to further discuss your medical conditions, including hypothyroidism, your diabetes, and your ongoing abdominal pain. If you have any worsening of your condition or any new concerning symptoms, please return immediately to the emergency department for another evaluation.
[2018-10-29 00:06] LABS: Bedside Glucose 268 mg/dL (70-110)
[2018-10-29 00:27] LABS: Absolute Lymphocyte Count 1.88 X10^3/ul (0.83-4.51); Basophil# 0.03 X10^3/uL; Basophil% 0.4 % (0-1); Eosinophil# 0.28 X10^3/uL; Eosinophils% 3.3 % (0-5); Hematocrit 45.6 % (40-54); Hemoglobin 15.1 g/dl (13.0-16.5); Lymphocyte # 1.88 X10^3/ul (4.0); Mean Corp Hgb Conc 33.1 g/gl (32-36); Mean Corpuscular Hgb 31.1 pg (27.0-32.0); Mean Corpuscular Volume 93.8 fL (80-94); Mean Platelet Vol. 11.4 fl (6.2-12.0); Monocyte# 0.39 X10^3/uL; Monocyte% 4.6 % (0-10); Neutrophil # 5.96 X10^3/uL (2.7-7.7); Neutrophil % 69.6 % (47-70); Platelet Count 104 K/mm3 (150-450); RBC Distribution Width CV 14.1 % (11.6-14.6); RBC Distribution Width SD 48.4 fl (35.1-43.9); Red Blood Count 4.86 M/mm3 (4.6-6.2); White Blood Count 8.6 K/mm3 (4.4-11.0)
[2018-10-29 00:28] LABS: POSITIVE COUNT NO; POSITIVE DIFFERENTIAL NO; POSITIVE MORPHOLOGY NO
[2018-10-29 00:31] LABS: Bacteria 0 SEEN /hpf (None Seen); Mucous, Urine 0 SEEN /hpf (<or=2+); Red Blood Cells-Urine 0 SEEN /hpf (0-5)
[2018-10-29 00:41] LABS: Color, Urine Straw (Yellow); Glucose, Dipstick 250 mg/dl (Normal); Ketone-Dipstick Negative (Negative); Leukocyte Esterase-Dipstick Negative /ul (Negative); Nitrite-Dipstick Negative (Negative); Occult Blood-Urine Negative /ul (Negative); Protein-Dipstick Negative (Negative); Urine Bilirubin Dipstick Negative (Negative); Urine Clarity Clear (Clear); Urine Urobilinogen Normal (Normal)
[2018-10-29 00:47] LABS: Squamous Epithelial Cells - UA 0-5 SEEN /hpf (0-5); White Blood Cells 0-5 SEEN /hpf (0-5)
[2018-10-29] MEDS: Mag Hydrox/Al Hydrox/Simeth 30 ML UDC PO (00:47)
[2018-10-29 00:49] LABS: ALB/GLOB Ratio 0.9 RATIO (0.9-2.4); AST(SGOT) 37 U/L (15-37); Alanine Aminotransfer ALT/SGPT 34 U/L (16-61); Alkaline Phosphatase 131 U/L (45-117); Anion Gap 5 (5-15); BUN 8 mg/dL (7-18); BUN/Creat Ratio 7.7 RATIO (10-20); Calcium,Total 7.7 mg/dL (8.5-10.1); Chloride 97 mmol/L (98-107); Creatinine, Serum 1.04 mg/dL (0.70-1.30); EST Glomerular Filtration Rate 79 mL/min (>60); Est Glom Filt Rate - Afr Amer 96 mL/min (>60); Estimated Creatinine Clearance 82.14 ml/min; Globulin 4.3 g/dL (2.2-4.2); Glucose 251 mg/dL (74-106); Lipase 202 U/L (73-393); Potassium 3.3 mmol/L (3.5-5.1); Protein, Total 8.3 g/dL (6.4-8.2); Sodium Level 133 mmol/L (136-145)
[2018-10-29] MEDS: 0.9% Normal Saline 1,000 ML 1000 ML IV (00:57)
[2018-10-29 01:21] LABS: T4 Free Direct 0.16 ng/dL (0.76-1.46)
[2018-10-29] MEDS: Levothyroxine 150 MCG Tablet PO (02:01)
[2018-10-29 02:03] VITALS: BP 164/102; PULSE 76; O2SAT 92
== END 2018-10-29 02:06 | disposition home or self-care (01) ==
PROVIDERS: Emergency Provider Emergency Medicine; Family Provider Student in an Organized Health Care Education/Training Program; PCP Student in an Organized Health Care Education/Training Program
DX: E03.9 Hypothyroidism, unspecified (principal); Z91.14 Patient's other noncompliance with medication regimen; R10.12 Left upper quadrant pain; R05 Cough; K21.9 Gastro-esophageal reflux disease without esophagitis; E66.9 Obesity, unspecified; Z68.43 Body mass index [BMI] 50.0-59.9, adult; Z79.82 Long term (current) use of aspirin; Z79.899 Other long term (current) drug therapy
CPT/HCPCS: 71046; 74176; 80053; 81001; 82962; 83690; 84439; 84443; 85025; 96360; 99285; J7030; A4216

== ENCOUNTER 2018-12-12 11:47 | Inpatient (IN) | payer MEDICAID, SELFPAY ==
[2018-12-12] VITALS (9 sets, daily range): BP systolic 135–210; BP diastolic 85–102; PULSE 74–100; RESP 16–20; TEMP 36.7–37.1; O2SAT 84–98; BMI 47.2; BMI 56.2; BMI 56.3
--- NOTE | 2018-12-12 11:53 | EKG12_ITS ---
Test Reason : SOB Blood Pressure : / mmHG Vent. Rate : 086 BPM Atrial Rate : 086 BPM P-R Int : 188 ms QRS Dur : 096 ms QT Int : 350 ms P-R-T Axes : 044 -08 085 degrees QTc Int : 418 ms Poor data quality, interpretation may be adversely affected Normal sinus rhythm Inferior infarct , age undetermined Abnormal ECG Confirmed by GALINA GARVEY ([id number]), editor farm journal MAXIMILIANO SORIA ([id number]) on 12/16/2018 1:59:43 PM Referred By: Marcellus Gunn Confirmed By:GALINA GARVEY
--- NOTE | 2018-12-12 11:53 | RAD_ITS ---
STUDY: X-RAY CHEST REASON FOR EXAM: Male, 53 years old. TECHNIQUE: 1 view COMPARISON: October 29, 2018 FINDINGS: Again noted. Linear atelectasis in the left base. With heavy markings in the right base. The apices are clear. The trachea is in the midline. The cardiac silhouette is not enlarged. There is mild tortuosity of the thoracic aorta. The visualized bones are intact RAD/Chest 1 View IMPRESSION: Still noted linear atelectasis in the left base with heavy markings in the right lower lung. Electronically Signed: Sandy Salas, at 14:04 EDT Tel , Service support ,
--- NOTE | 2018-12-12 12:05 | ED.DCSUM_ITS ---
History of Present Illness Chief Complaint: Shortness of Breath Informant: Patient Onset: Month(s) Current Severity: Moderate Narrative: Patient has history of diabetes most this he denies other conditions, he indicates he supposed to be on metformin but because of his social economic issues he does not take that medicine for months he is living in his truck, his has cancer and is a resident in a intermediate in [place], indicates he is been sleeping upright in his truck he can only take those symptoms, he also reports progressively worsening drainage related to infection left leg that had cleared up Past Medical History - Allergies and Home Meds Allergies/Adverse Reactions: Allergies No Known Allergies Allergy (Verified 12/12/18 11:48) Primary Care Physician: Vimal White DO [Primary Care Provider] - Past Medical History: - - He indicates his only past history is diabetes infection in the leg possibly to MRSA he denies a history of [place] PE DVT CHF or heart disease Surgical History: - - Patient has previously undergone partial thyroidectomy. He has also undergone left knee surgery in the past. Smoking Status: Former smoker - Family History Paternal Family History: Reports: - - The patient's father is 78 years of age, with a history of diabetes mellitus, alcoholism, and heart disease. The patient's mother is , having at the age of 73 with a history of cere brovascular accident. Review of Systems General: Denies: Chills, Fever, Sweats Eyes: Denies: Visual changes - bilaterally, Diplopia ENT: Denies: Rhinorrhea, Sore throat Cardiovascular: Denies: Chest pain, Palpitations Respiratory: Reports: Dyspnea, Dyspnea on exertion, Orthopnea, Paroxysmal nocturnal dyspnea. Denies: Cough Gastrointestinal: Denies: Abdominal pain, Nausea, Vomiting, Diarrhea, Melena, Hematochezia Genitourinary: Denies: Dysuria, Hematuria, Frequency Musculoskeletal: Denies: Back pain, Extremity Pain Skin: Reports: Wounds, - - He has excoriation and thick skin edema to both lower extremities he has a draining shallow ulcer to the left calf region. Denies: Rash Neurological: Denies: Headache, Weakness, Numbness Physical Exam Vital Signs/Narrative: Vital Signs Temp Pulse Resp BP Pulse Ox 12/12/18 11:49 98.0 F 98 20 H 210/102 H 89 General: Well nourished, Well developed, - - The patient is just generally disheveled with very poor hygiene overall he has a draining lesion to his left leg that has foul odor to it., He indicates been living in his truck due to homelessness Head: Normocephalic, Atraumatic Eyes: Perrl, EOMI ENT: Moist mucous membranes, No rhinorrhea Neck: Supple, Nontender Cardiovascular: Regular rate, Regular rhythm, No murmurs Respiratory: No distress, Chest nontender, Rales, - - His breath sounds are markedly reduced he has lower excursion he has a slight distended abdomen he denies shortness of breath in the room on 2 L of oxygen his pulse ox is 98% is afebrile, his blood pressure noted to be 200/100 he denies history of hypertension Abdomen: Soft, Nontender, Nondistended, Normal bowel sounds Back: Nontender, Normal Inspection Extremities: Nontender, Edema, - - He has diffuse extensive edema to his lower extremities scaling of the skin thick brawny skin bilaterally, to the left mid medial calf area there is about a 10 cm circular ulcer that is draining clear fluid there is an odor to his skin, he has generally poor hygiene Skin: Normal color, No rash Neurological: Alert, Oriented x3, Cranial nerves II-XII grossly intact, Normal Strength, Normal Sensation Psychological: Normal affect, Normal Mood Diagnostic/Tx/Re-eval - Medical Decision Making The differential on this patient is quite extensive includes CHF lower extremity infection diabetic related infection there is some notation from his history he may have MRSA there are certainly other complication related to diabetes given all the above complaints of elevations pursued Patient screening labs are generally unremarkable chest x-ray shows no acute changes, see all those reports Patient indicates that he is feeling better while at rest if he moves at all he gets quite dyspneic he has chronic changes of edema and early infection involving the left leg given his diabetes and his overall disheveled condition I believe he might benefit from admission for management of the leg infection his dyspnea, I have asked to the hospitalist have see him. For further management. Admission status pending hospitalist evaluation Final impression Dyspnea, extensive lower extremity edema, left lower extremity infection, diabetes congestive heart failure ED Disposition - Plan for ED Patient: Referrals: Vimal White DO [Primary Care Provider] -
[2018-12-12] MEDS: Ipratropium/Albuterol Sulfate 3 ML AMPUL.NEB INHALATION (12:18)
[2018-12-12 12:21] LABS: Absolute Lymphocyte Count 1.55 X10^3/ul (0.83-4.51); Absolute Neutrophil Count 6.4 X10^3/uL (2.0-7.7); Basophil# 0.02 X10^3/uL; Basophil% 0.2 % (0-1); Eosinophil# 0.36 X10^3/uL; Eosinophils% 4.1 % (0-5); Hematocrit 45.1 % (40-54); Hemoglobin 14.6 g/dl (13.0-16.5); Lymphocyte # 1.55 X10^3/ul (4.0); Lymphocyte % 17.5 % (19-41); Mean Corp Hgb Conc 32.4 g/gl (32-36); Mean Corpuscular Volume 95.8 fL (80-94); Mean Platelet Vol. 9.7 fl (6.2-12.0); Monocyte% 5.6 % (0-10); POSITIVE COUNT NO; POSITIVE DIFFERENTIAL NO; POSITIVE MORPHOLOGY NO; Platelet Count 157 K/mm3 (150-450); RBC Distribution Width CV 14.1 % (11.6-14.6); RBC Distribution Width SD 49.3 fl (35.1-43.9); Red Blood Count 4.71 M/mm3 (4.6-6.2); White Blood Count 8.9 K/mm3 (4.4-11.0)
[2018-12-12 12:34] LABS: Anion Gap 5 (5-15); BUN 8 mg/dL (7-18); BUN/Creat Ratio 7.5 RATIO (10-20); Calcium,Total 7.8 mg/dL (8.5-10.1); Chloride 97 mmol/L (98-107); Creatinine, Serum 1.06 mg/dL (0.70-1.30); EST Glomerular Filtration Rate 78 mL/min (>60); Est Glom Filt Rate - Afr Amer 94 mL/min (>60); Estimated Creatinine Clearance 80.59 ml/min; Glucose 316 mg/dL (74-106); Potassium 3.8 mmol/L (3.5-5.1); Sodium Level 135 mmol/L (136-145)
[2018-12-12 12:46] LABS: BNP,B-Type NATRIURETIC PEPTIDE 6.6 pg/mL (0-100)
--- NOTE | 2018-12-12 13:30 | RAD_ITS ---
STUDY: X-RAY - LEFT TIBIA AND FIBULA REASON FOR EXAM: Male, 53 years old. TECHNIQUE: view(s) of the tibia and fibula were obtained. COMPARISON: None. FINDINGS: Normal visualized tibia. Normal visualized fibula. The soft tissue structures are unremarkable. Inferior to the patella there are some calcifications that are needed to be evaluated by CT scan. RAD/Tibia & Fibula 2 Views IMPRESSION: No fracture of the tibia or fibula but there is. Calcification inferior to the patella as mentioned above Electronically Signed: Sandy Salas, at 14:02 EDT Tel , Service support ,
--- NOTE | 2018-12-12 14:36 | NURSING ---
DR KIANA FARIAS
[2018-12-12 14:59] LABS: Mucous, Urine 0 SEEN /hpf (<or=2+); Red Blood Cells-Urine 0 SEEN /hpf (0-5); White Blood Cells 0 SEEN /hpf (0-5)
[2018-12-12 15:01] LABS: Color, Urine Yellow (Yellow); Glucose, Dipstick 250 mg/dl (Normal); Ketone-Dipstick Negative (Negative); Leukocyte Esterase-Dipstick Negative /ul (Negative); Nitrite-Dipstick Negative (Negative); Occult Blood-Urine Negative /ul (Negative); Protein-Dipstick Negative (Negative); Urine Bilirubin Dipstick Negative (Negative); Urine Clarity Clear (Clear); Urine Urobilinogen Normal (Normal)
[2018-12-12] MEDS: Furosemide 40 MG/4 ML Vial IV ×2 (15:01→17:02)
--- NOTE | 2018-12-12 15:05 | NURSING ---
MED SURG KIANA CHF, DIABETES, LOWER EXTREMITY EDEMA INFECTION OBS
[2018-12-12 15:07] LABS: Bacteria RARE /hpf (None Seen); Squamous Epithelial Cells - UA 0-5 SEEN /hpf (0-5)
--- NOTE | 2018-12-12 15:17 | HP.PCM_ITS ---
Problem List (1) Leg swelling Status: Chronic (2) Edema of both legs Status: Chronic (3) Dependent edema Status: Chronic (4) Diabetes mellitus Status: Chronic Qualifiers: Diabetes mellitus type: type 2 (5) Morbid obesity with BMI of 50.0-59.9, adult Status: Chronic (6) Poor hygiene Status: Chronic (7) Hypertension Status: Chronic (8) Hypothyroidism Status: Chronic Qualifiers: Hypothyroidism type: postoperative Qualified Code(s): E89.0 - Postprocedural hypothyroidism (9) Depression Status: Chronic (10) Callus of foot Status: Chronic (11) Hypertrophic condition of skin Status: Chronic (12) History of thyroid cancer Status: Chronic (13) Acute respiratory insufficiency Status: Acute (14) Possible pneumonia Status: Acute History of Present Illness Date of Admission: 12/12/18 Chief Complaint: Shortness of breath for 2 to 3 weeks The patient is a 53 year old M with multiple comorbidities including diabetes mellitus type 2, hypertension and hypothyroidism, homeless, not able to afford medications came to ED for progressively worsening shortness of breath for 2 to 3 weeks. The patient also has dry cough and feels chest congestion, not able to bring up phlegm. Patient has history of smoking a pack per day for 3 to 4 years, quit about 10 years ago. Patient has chills but denies any fever. Denies chest pain. In ED, basic evaluation shows blood pressure 210/102, heart rate 98/min, pulse ox 89% on room air. Patient is morbidly obese, 320 pounds. Chest x-ray shows linear atelectasis in left base with 3 markings in the right lung base possible effusion on left lung base. EKG shows normal sinus rhythm at 86 bpm sinus arrhythmia. Bilateral lower extremities chronic edema for more than 6 months, probably for 2 to 3 years. There is a skin tear on the anterior aspect of left leg. Past Medical History Past Medical History (Chronic Problems): Chronic Problems Leg swelling (Chronic) Edema of both legs (Chronic) Dependent edema (Chronic) Diabetes mellitus (Chronic) Morbid obesity with BMI of 50.0-59.9, adult (Chronic) Poor hygiene (Chronic) Hypertension (Chronic) Hypothyroidism (Chronic) Depression (Chronic) Callus of foot (Chronic) Hypertrophic condition of skin (Chronic) History of thyroid cancer (Chronic) Allergies No Known Allergies Allergy (Verified 12/12/18 11:48) Home Medications: Ambulatory Orders Medication Instructions Recorded Aspirin [Aspir-Low] 81 mg PO DAILY 04/11/17 Levothyroxine [Synthroid] 75 mcg PO DAILY 04/11/17 Lisinopril [Zestril] 10 mg PO DAILY 04/11/17 Metformin HCl 500 mg PO BID 04/11/17 Simvastatin 20 mg PO QHS 05/29/17 Surgical History: - - Patient has previously undergone partial thyroidectomy. He has also undergone left knee surgery in the past. Smoking Status: Former smoker - *Family History Paternal History Items: - - The patient's father is 78 years of age, with a history of diabetes mellitus, alcoholism, and heart disease. The patient's mother is , having at the age of 73 with a history of cerebrovascular accident. Review of Systems Constitutional: Reports: Chills, - - Morbid obesity HEENT: Denies: Head Aches, Sinus Congestion, Sinus Drainage Cardiovascular: Reports: Edema. Denies: Chest Pain, Palpitations Respiratory: Reports: Cough, Shortness of breath upon exertion. Denies: Shortness of breath at rest, Sputum production Gastrointestinal: Reports: Abdominal Pain - Sometimes abdominal pain on left side, most probably due to pendulous fat abdomen, Constipation. Denies: Nausea, Vomiting Genitourinary: Denies: Dysuria Musculoskeletal: Reports: Joint Pain, Joint stiffness. Denies: Joint Tenderness Skin: Reports: Skin Changes, Wounds - Superficial skin tear/ulcer on the anterior aspect of left leg, - - Bilateral toes are dirty with black stain. Overall unhygienic condition of the skin. Denies: Rash Neurological: Denies: Numbness, Tingling, Focal weakness Psychiatric: Denies: Anxiety, Depression, Homicidal Ideations, Suicidal Ideations Hematologic/ Lymphatic: Denies: Easy Bruising, Easy Bleeding VTE Information - Inpt Only VTE Present on Admission: No VTE Mechan Device Prophylaxis: None VTE Pharm Prophylaxis ordered?: Yes Patient Problems: Active and Suspected Problems Acute respiratory insufficiency (Acute) Possible pneumonia (Acute) - Physical Exam General: Alert, Oriented x3, Cooperative HEENT: Atraumatic, PERRLA, EOMI, Normocephalic Oral: - - Deep pharyngeal structures are crowded and not clearly visualized Neck: Supple, No JVD, Negative Carotid Bruits Lungs: Clear to auscultation, Diminished - Air entry is diminished in bilateral lung bases., Wheezes Cardiovascular: Regular rate, Regular Rhythm, Normal S1, Normal S2, No murmurs Abdomen: Bowel Sounds Present, Soft, Non Tender, Non-Distended Extremities: Capillary Refill Less than 3 Seconds, Edema - Bilateral chronic edema/soft tissue hypertrophy bilateral lower extremities Skin: Ulcer/ Wound - Ulcer of anterior aspect of left leg Musculoskeletal: No Tenderness to Palpation of Joints or Extremities, Arthritic Changes Lymphatic: No Cervical, Supraclavicular, or Inguinal Adenopathy Neurological: Cranial nerves II-XII grossly intact, Deep Tendon Reflexes 2+/4 and Symmetrical, Neuro grossly intact Psych/Mental Status: Normal Affect, Appropriate Vital Signs Temp Pulse Resp BP Pulse Ox 98.0 F 78 16 150/96 H 96 12/12/18 11:49 12/12/18 15:06 12/12/18 15:06 12/12/18 15:06 12/12/18 15:06 Oxygen Flow Rate (L/min) 2 Oxygen Delivery Method Nasal Cannula Weight: 320 lb Body Mass Index (BMI) 47.2 Finger Stick Blood Glucose 268 Laboratory Tests Past 24 Hrs 12/12/18 12/12/18 12/12/18 12:01 12:01 12:01 WBC 8.9 RBC 4.71 Hgb 14.6 Hct 45.1 MCV 95.8 H MCH 31.0 MCHC 32.4 RDW 14.1 RDW Differential 49.3 H Plt Count 157 MPV 9.7 Immature Gran % (Auto) 0.600 Neut % (Auto) 72.0 H Lymph % (Auto) 17.5 L [place] % (Auto) 5.6 Eos % (Auto) 4.1 Baso % (Auto) 0.2 Absolute Neuts (auto) 6.4 Absolute Lymphs (auto) 1.55 Total Counted Not Reportable Sodium 135 L Potassium 3.8 Chloride 97 L Carbon Dioxide 33.0 H Anion Gap 5 BUN 8 Creatinine 1.06 Estim Creat Clear Calc 80.59 Est GFR (MDRD) Af Amer 94 Est GFR (MDRD) Non-Af 78 BUN/Creatinine Ratio 7.5 L Glucose 316 H Lactic Acid Calcium 7.8 L Troponin I < 0.015 B-Natriuretic Peptide 6.6 Urine Color Urine Clarity Urine pH Ur Specific [place] Urine Protein Urine Glucose (UA) Urine Ketones Urine Occult Blood Urine Nitrite Urine Bilirubin Urine Urobilinogen Ur Leukocyte Esterase Urine RBC Urine WBC Ur Squamous Epith Cells Urine Bacteria Urine Mucus Acetone Level 12/12/18 12/12/18 12/12/18 12:26 12:26 14:50 WBC RBC Hgb Hct MCV MCH MCHC RDW RDW Differential Plt Count MPV Immature Gran % (Auto) Neut % (Auto) Lymph % (Auto) [place] % (Auto) Eos % (Auto) Baso % (Auto) Absolute Neuts (auto) Absolute Lymphs (auto) Total Counted Sodium Potassium Chloride Carbon Dioxide Anion Gap BUN Creatinine Estim Creat Clear Calc Est GFR (MDRD) Af Amer Est GFR (MDRD) Non-Af BUN/Creatinine Ratio Glucose Lactic Acid 2.0 Calcium Troponin I B-Natriuretic Peptide Urine Color Yellow Urine Clarity Clear Urine pH 7.0 Ur Specific [place] 1.010 Urine Protein Negative Urine Glucose (UA) 250 H Urine Ketones Negative Urine Occult Blood Negative Urine Nitrite Negative Urine Bilirubin Negative Urine Urobilinogen Normal Ur Leukocyte Esterase Negative Urine RBC 0 SEEN Urine WBC 0 SEEN Ur Squamous Epith Cells 0-5 SEEN Urine Bacteria RARE Urine Mucus 0 SEEN Acetone Level NEGATIVE Assessment/Plan All Active Problems Acute respiratory insufficiency (Acute) Possible pneumonia (Acute) The patient is a 53 year old M with multiple comorbidities including diabetes mellitus type 2, hypertension and hypothyroidism, homeless, not able to afford medications came to ED for progressively worsening shortness of breath for 2 to 3 weeks. The patient also has dry cough and feels chest congestion, not able to bring up phlegm. Patient has history of smoking a pack per day for 3 to 4 years, quit about 10 years ago. Patient has chills but denies any fever. Denies chest pain. In ED, basic evaluation shows blood pressure 210/102, heart rate 98/min, pulse ox 89% on room air. Patient is morbidly obese, 320 pounds. Chest x-ray shows linear atelectasis in left base with 3 markings in the right lung base possible effusion on left lung base. EKG shows normal sinus rhythm at 86 bpm sinus arrhythmia. Bilateral lower extremities chronic edema for more than 6 months, probably for 2 to 3 years. There is a skin tear on the anterior aspect of left leg. 1 acute respiratory insufficiency, possible due to community-acquired pneumonia/mild pleural effusions and atelectasis: Patient is being admitted to [facility] floor. Started on IV Rocephin and Zithromax. Patient received vancomycin and Zosyn the ED. Pneumonia work-up including urinary antigens, MRSA nasal screen, respiratory panel and sputum culture. Incentive spirometry and chest physiotherapy. Albuterol as needed. 2. Chronic cough with former smoking, 3-4 pack years of his smoking: Will need formal PFT as an outpatient. 3. Bilateral lower extremity swelling/edema with concern of heart failure: BNP 6. But BNP is of lower sensitivity in morbidly obese patient. Patient BMI is 47. 2D echo is ordered to further evaluate for heart failure. Empirically started on Lasix 40 mg IV q. 12 hourly. Blood pressure was uncontrolled 210/102. Currently 150/96. Continue lisinopril 10 mg daily. Superficial ulcer on the left lower lower leg. Dressing as per nursing protocol. 4. type II with hyperglycemia: Accu-Chek before meals and at bedtime cover with Humalog sliding scale. A1c tomorrow a.m. Glucose and BMP 10 at 16. Lantus 10 seconds twice daily diabetes mellitus 5. Hypertension and hypothyroidism: Continue Synthroid 75 mcg daily. TSH and free T4 tomorrow a.m. 6. DVT prophylaxis: Lovenox 40 subcu daily Laboratory Results 12/12/18 12:01: WBC 8.9, RBC 4.71, Hgb 14.6, Hct 45.1, MCV 95.8 H, MCH 31.0, M CHC 32.4, RDW 14.1, RDW Differential 49.3 H, Plt Count 157, MPV 9.7, Immature Gran % (Auto) 0.600, Neut % (Auto) 72.0 H, Lymph % (Auto) 17.5 L, [place] % (Auto) 5.6, Eos % (Auto) 4.1, Baso % (Auto) 0.2, Absolute Neuts (auto) 6.4, Absolute Lymphs (auto) 1.55, Total Counted Not Reportable 12/12/18 12:01: Sodium 135 L, Potassium 3.8, Chloride 97 L, Carbon Dioxide 33.0 H, Anion Gap 5, BUN 8, Creatinine 1.06, Estim Creat Clear Calc 80.59, Est GFR (MDRD) Af Amer 94, Est GFR (MDRD) Non-Af 78, BUN/Creatinine Ratio 7.5 L, Glucose 316 H, Calcium 7.8 L, Troponin I < 0.015 06/22/19 12:01: B-Natriuretic Peptide 6.6 12/12/18 12:26: Acetone Level NEGATIVE 12/12/18 12:26: Lactic Acid 2.0 12/12/18 14:50: Urine Color Yellow, Urine Clarity Clear, Urine pH 7.0, Ur Specific [place] 1.010, Urine Protein Negative, Urine Glucose (UA) 250 H, Urine Ketones Negative, Urine Occult Blood Negative, Urine Nitrite Negative, Urine Bilirubin Negative, Urine Urobilinogen Normal, Ur Leukocyte Esterase Negative, Urine RBC 0 SEEN, Urine WBC 0 SEEN, Ur Squamous Epith Cells 0-5 SEEN, Urine Bacteria RARE, Urine Mucus 0 SEEN Clinical Impression(s) from Imaging Studies Chest X-Ray 12/12/18 11:53 IMPRESSION: Still noted linear atelectasis in the left base with heavy markings in the right lower lung. Electronically Signed: Sandy Salas, at 14:04 EDT Tel , Service support , Tibia/Fibula X-Ray 12/12/18 13:30 IMPRESSION: No fracture of the tibia or fibula but there is. Calcification inferior to the patella as mentioned above Code Visit Inpatient E&M: 04267 Init Hosp L3
--- NOTE | 2018-12-12 16:10 | NURSING ---
PT ARRIVED TO UNIT APPROX [id number], USED RESTROOM AND THEN IV SITE COVERED AND PT INTO SHOWER
[2018-12-12 16:26] LABS: Reflex Lactate? Y
[2018-12-12] MEDS: guaiFENesin 1,200 MG Tablet 1200 MG PO ×2 (16:37→21:28)
[2018-12-12] MEDS: Enoxaparin 40 MG/0.4 ML Syringe SC (16:38)
[2018-12-12 16:50] LABS: Bedside Glucose 176 mg/dL (70-110)
[2018-12-12] MEDS: Insulin Lispro 100 UNIT/ML INSULN.PEN SC ×2 (17:02→21:17)
[2018-12-12 17:32] LABS: Lactic Acid 1.6 mmol/L (0.4-2.0)
[2018-12-12 18:13] LABS: Probe Check PASS
[2018-12-12 18:15] LABS: M R Staph aureus DNA By PCR POSITIVE (Negative)
[2018-12-12 21:25] LABS: Bedside Glucose 214 mg/dL (70-110)
[2018-12-12] MEDS: Famotidine 20 MG Tablet PO (21:28)
[2018-12-12] MEDS: Ceftriaxone 1 GM/50 ML BAG IV (21:29)
[2018-12-12] MEDS: Atorvastatin Calcium 10 MG Tablet PO (21:29)
[2018-12-13] MEDS: Levothyroxine 75 MCG Tablet PO (05:24)
[2018-12-13 05:26] VITALS: BP 131/66; PULSE 77; RESP 18; TEMP 36.6; O2SAT 94
[2018-12-13] MEDS: Insulin Lispro 100 UNIT/ML INSULN.PEN SC ×4 (05:33→22:17)
[2018-12-13 05:41] LABS: Bedside Glucose 186 mg/dL (70-110)
--- NOTE | 2018-12-13 05:55 | ECHOD_ITS ---
Reason For Study: Leg Swelling Procedure This was a 2D Doppler, Color Flow transthoracic echocardiogram. The study was technically difficult. Exam performed portable in patient room. Left Ventricle Normal LV size. Moderate concentric left ventricular hypertrophy. Left ventricular systolic function is normal. The estimated ejection fraction is 60 %. Stage 1 diastolic dysfunction. No regional wall motion abnormalities noted. Right Ventricle Normal RV size. Normal systolic function. Atria Normal left atrium. Normal right atrium. Mitral Valve Normal mitral valve. Tricuspid Valve Normal tricuspid valve. Aortic Valve The aortic valve is not well visualized. Pulmonic Valve The pulmonic valve is not well visualized. Great Vessels Normal aortic root. The pulmonary artery is normal size. Normal inferior vena cava. Pericardium/Pleural No pericardial effusion. MMode/2D Measurements & Calculations LVIDd: 4.6 cm IVSd: 1.9 cm Ao root diam: 3.7 cm LVIDs: 3.1 cm LVPWd: 1.3 cm FS: 32.4 % LAV(MOD-bp): 41.2 ml LVAd ap4: 24.8 cm2 SV(MOD-sp4): 41.6 ml LAV(MOD-bp) Indexed: 15.2 ml/m2 EDV(MOD-sp4): 67.7 ml LAV(MOD-sp2): 39.8 ml EDV(sp4-el): 66.7 ml LAV(MOD-sp4): 42.8 ml LVAs ap4: 14.0 cm2 ESV(MOD-sp4): 26.1 ml ESV(sp4-el): 25.5 ml EF(MOD-sp4): 61.5 % EF(sp4-el): 61.8 % SV(sp4-el): 41.2 ml LA A4 area: 18.0 cm2 LA dimension(2D): 4.3 cm RA A4 area: 15.7 cm2 Doppler Measurements & Calculations MV E max navin: 40.8 cm/sec Lat Peak E' Navin: 3.9 cm/sec Med Peak E' Navin: 5.7 cm/sec MV A max navin: 51.2 cm/sec E/E' lat: 10.5 E/E' med: 7.2 MV E/A: 0.80 Ao V2 max: 105.0 cm/sec LV V1 max: 92.0 cm/sec PA V2 max: 79.6 cm/sec Ao max P.4 mmHg LV V1 max P.4 mmHg Ao V2 mean: 88.6 cm/sec Ao mean P.3 mmHg Ao V2 VTI: 23.4 cm Interpretation Summary Normal LV size. Moderate concentric left ventricular hypertrophy. Left ventricular systolic function is normal. The estimated ejection fraction is 60 %. Stage 1 diastolic dysfunction. Ordering Physician: Marcellus Gunn Referring Physician: Vimal Hyman Performed By: Alise George, ARLEEN, RVT
[2018-12-13 06:35] LABS: Absolute Lymphocyte Count 1.48 X10^3/ul (0.83-4.51); Absolute Neutrophil Count 7.5 X10^3/uL (2.0-7.7); Basophil# 0.04 X10^3/uL; Basophil% 0.4 % (0-1); Eosinophil# 0.42 X10^3/uL; Eosinophils% 4.2 % (0-5); Hematocrit 47.3 % (40-54); Lymphocyte # 1.48 X10^3/ul (4.0); Lymphocyte % 14.9 % (19-41); Mean Corp Hgb Conc 31.7 g/gl (32-36); Mean Corpuscular Hgb 30.4 pg (27.0-32.0); Mean Corpuscular Volume 95.7 fL (80-94); Mean Platelet Vol. 9.9 fl (6.2-12.0); Monocyte# 0.46 X10^3/uL; Monocyte% 4.6 % (0-10); Neutrophil # 7.46 X10^3/uL (2.7-7.7); Neutrophil % 75.5 % (47-70); Platelet Count 164 K/mm3 (150-450); RBC Distribution Width CV 14.4 % (11.6-14.6); RBC Distribution Width SD 48.8 fl (35.1-43.9); Red Blood Count 4.94 M/mm3 (4.6-6.2); White Blood Count 9.9 K/mm3 (4.4-11.0)
[2018-12-13 06:37] LABS: POSITIVE COUNT NO; POSITIVE DIFFERENTIAL NO; POSITIVE MORPHOLOGY NO
[2018-12-13 06:56] LABS: Anion Gap 7 (5-15); BUN 9 mg/dL (7-18); BUN/Creat Ratio 10.4 RATIO (10-20); Calcium,Total 7.7 mg/dL (8.5-10.1); Chloride 94 mmol/L (98-107); Cholesterol 210 mg/dL (200); Creatinine, Serum 0.86 mg/dL (0.70-1.30); EST Glomerular Filtration Rate 98 mL/min (>60); Est Glom Filt Rate - Afr Amer 119 mL/min (>60); Glucose 162 mg/dL (74-106); High Density Lipoprotein 37 mg/dL; Potassium 3.4 mmol/L (3.5-5.1); Sodium Level 138 mmol/L (136-145); T4 Free Direct 0.15 ng/dL (0.76-1.46); Triglycerides 259 mg/dL; Very Low Density Lipoprotein 52 mg/dL (5-40)
[2018-12-13 09:38] LABS: Hemoglobin A1c 7.5 % (4.2-6.3)
[2018-12-13 09:50] VITALS: BP 138/78; PULSE 78; RESP 16; TEMP 36.6; O2SAT 92
[2018-12-13] MEDS: Ceftriaxone 1 GM/50 ML BAG IV ×2 (09:58→22:19)
[2018-12-13] MEDS: guaiFENesin 1,200 MG Tablet 1200 MG PO ×2 (10:00→22:19)
[2018-12-13] MEDS: Aspirin E.C. 81 MG Tablet PO (10:00)
[2018-12-13] MEDS: Famotidine 20 MG Tablet PO ×2 (10:00→22:19)
[2018-12-13] MEDS: Lisinopril 10 MG Tablet PO (10:00)
[2018-12-13] MEDS: Furosemide 40 MG/4 ML Vial IV ×2 (10:01→17:03)
[2018-12-13] MEDS: Enoxaparin 40 MG/0.4 ML Syringe SC (10:02)
--- NOTE | 2018-12-13 11:48 | PCM.PN.HOSP ---
Patient Problems: Active and Suspected Problems Acute respiratory insufficiency (Acute) Possible pneumonia (Acute) Subjective: Patient feels improvement in shortness of breath. Patient is more awake and alert. Pulse ox 92% on room air. Patient is diuresing well. Vitals/I&O's: Vital Signs Temp Pulse Resp BP Pulse Ox 97.9 F 77 18 131/66 H 94 12/13/18 05:26 12/13/18 05:26 12/13/18 05:26 12/13/18 05:26 12/13/18 05:26 Oxygen Flow Rate (L/min) 2 Oxygen Delivery Method Room Air Weight: 370 lb 5 oz Body Mass Index (BMI) 56.2 Finger Stick Blood Glucose 268 Intake and Output for Last 24 Hours 12/11/18 12/12/18 12/13/18 23:59 23:59 23:59 Intake Total 813.7 / 813.7 Output Total 275 / 275 Balance 538.7 / 538.7 General: Alert, Oriented x3, Cooperative HEENT: Atraumatic, PERRLA, EOMI, Normocephalic Neck: Supple, No JVD, Negative Carotid Bruits Lungs: Clear to auscultation, No rhonchi, No wheeze, No rales, Diminished - Air entry is diminished bilateral lung bases Cardiovascular: Regular rate, Regular Rhythm, Normal S1, Normal S2, No murmurs Abdomen: Bowel Sounds Present, Soft, Non Tender, Non-Distended Extremities: Capillary Refill Less than 3 Seconds, Edema - Bilateral chronic lymphedema of lower extremities. Soft tissue hypertrophy Skin: Ulcer/ Wound - Superficial Ulcer of anterior aspect of left leg Musculoskeletal: No Tenderness to Palpation of Joints or Extremities, Arthritic Changes Lymphatic: No Cervical, Supraclavicular, or Inguinal Adenopathy Neurological: Cranial nerves II-XII grossly intact, Deep Tendon Reflexes 2+/4 and Symmetrical, Neuro grossly intact Psych/Mental Status: Normal Affect, Appropriate Microbiology Past 72 Hours 12/12/18 19:50 Mucosa - Nasopharyngeal Respiratory Panel (PCR) - Final 12/12/18 14:50 Urine, Clean Catch Legionella Antigen - Final 12/12/18 14:50 Urine, Clean Catch Streptococcus pneumoniae Antigen (M - Final Laboratory Results 12/12/18 12:01: WBC 8.9, RBC 4.71, Hgb 14.6, Hct 45.1, MCV 95.8 H, MCH 31.0, MCHC 32.4, RDW 14.1, RDW Differential 49.3 H, Plt Count 157, MPV 9.7, Immature Gran % (Auto) 0.600, Neut % (Auto) 72.0 H, Lymph % (Auto) 17.5 L, [place] % (Auto) 5.6, Eos % (Auto) 4.1, Baso % (Auto) 0.2, Absolute Neuts (auto) 6.4, Absolute Lymphs (auto) 1.55, Total Counted Not Reportable 12/12/18 12:01: Sodium 135 L, Potassium 3.8, Chloride 97 L, Carbon Dioxide 33.0 H, Anion Gap 5, BUN 8, Creatinine 1.06, Estim Creat Clear Calc 80.59, Est GFR (MDRD) Af Amer 94, Est GFR (MDRD) Non-Af 78, BUN/Creatinine Ratio 7.5 L, Glucose 316 H, Calcium 7.8 L, Troponin I < 0.015 12/12/18 12:01: B-Natriuretic Peptide 6.6 12/12/18 12:26: Acetone Level NEGATIVE 12/12/18 12:26: Lactic Acid 2.0 12/12/18 14:50: Urine Color Yellow, Urine Clarity Clear, Urine pH 7.0, Ur Specific Grace 1.010, Urine Protein Negative, Urine Glucose (UA) 250 H, Urine Ketones Negative, Urine Occult Blood Negative, Urine Nitrite Negative, Urine Bilirubin Negative, Urine Urobilinogen Normal, Ur Leukocyte Esterase Negative, Urine RBC 0 SEEN, Urine WBC 0 SEEN, Ur Squamous Epith Cells 0-5 SEEN, Urine Bacteria RARE, Urine Mucus 0 SEEN 12/12/18 15:55: MRSA (PCR) POSITIVE H 12/12/18 16:35: Lactic Acid 1.6 12/12/18 16:43: POC Glucose 176 H 12/12/18 21:16: POC Glucose 214 H 12/13/18 05:28: WBC 9.9, RBC 4.94, Hgb 15.0, Hct 47.3, MCV 95.7 H, MCH 30.4, MCHC 31.7 L, RDW 14.4, RDW Differential 48.8 H, Plt Count 164, MPV 9.9, Immature Gran % (Auto) 0.400, Neut % (Auto) 75.5 H, Lymph % (Auto) 14.9 L, [place] % (Auto) 4.6, Eos % (Auto) 4.2, Baso % (Auto) 0.4, Absolute Neuts (auto) 7.5, Absolute Lymphs (auto) 1.48, Total Counted Not Reportable 12/13/18 05:28: Sodium 138, Potassium 3.4 L, Chloride 94 L, Carbon Dioxide 37.0 H, Anion Gap 7, BUN 9, Creatinine 0.86, Estim Creat Clear Calc 96.10, Est GFR (MDRD) Af Amer 119, Est GFR (MDRD) Non-Af 98, BUN/Creatinine Ratio 10.4, Glucose 162 H, Calcium 7.7 L, Triglycerides 259 H, Cholesterol 210 H, LDL Cholesterol 121, VLDL Cholesterol 52 H, HDL Cholesterol 37 L, TSH 47.30 H, Free T4 0.15 L 12/13/18 05:28: Hemoglobin A1c 7.5 H 12/13/18 05:31: POC Glucose 186 H Current Medications Acetaminophen (Tylenol) 650 mg PO Q6H PRN PRN PRN Reason: Mild Pain (1-3)/Temp > 100.7 F Al Hydroxide/Mg Hydroxide (Mylanta Ii) 30 ml PO Q6H PRN PRN PRN Reason: Gastric Burning Albuterol Sulfate (Ventolin Aerosols) 2.5 mg INHALATION Q2H PRN PRN PRN Reason: SHORTNESS OF BREATH Aspirin (Ecotrin) 81 mg PO DAILY@0800 [facility] Last Admin: 12/13/18 10:00 Dose: 81 mg Documented by: Atorvastatin Calcium (Lipitor) 10 mg PO QHS [facility] Last Admin: 12/12/18 21:29 Dose: 10 mg Documented by: Dextrose (D50w Syringe) 0 gm IV X1 PRN; Protocol PRN Reason: Hypoglycemia Enoxaparin Sodium (Lovenox) 40 mg SC DAILY [facility] Last Admin: 12/13/18 10:02 Dose: 40 mg Documented by: Famotidine (Pepcid) 20 mg PO BID [facility] Last Admin: 12/13/18 10:00 Dose: 20 mg Documented by: Furosemide (Lasix) 40 mg IV BID@1000,1800 [facility] Last Admin: 12/13/18 10:01 Dose: 40 mg Documented by: Glucagon () 1 mg IM .X1 PRN PRN Reason: Hypoglycemia Guaifenesin (Mucinex) 1,200 mg PO BID [facility] Last Admin: 12/13/18 10:00 Dose: 1,200 mg Documented by: Ceftriaxone Sodium (Rocephin) 1 gm in 50 mls @ 100 mls/hr IV Q12H [facility] Last Admin: 12/13/18 09:58 Dose: 100 mls/hr Documented by: Azithromycin 500 mg/ Dextrose 255 mls @ 250 mls/hr IV Q24 [facility] Stop: 12/14/18 11:02 Last Admin: 12/13/18 10:48 Dose: 250 mls/hr Documented by: Insulin Glargine (Lantus (Bk)) 10 units SC BREAKFAST [facility] Last Admin: 12/13/18 08:28 Dose: 10 units Documented by: Insulin Glargine (Lantus (Bk)) 10 units SC QHS [facility] Last Admin: 12/12/18 21:18 Dose: 10 units Documented by: Insulin Human Lispro (Humalog Kwikpen ([facility])) 0 unit SC ACHS [facility]; Protocol Last Admin: 12/13/18 11:45 Dose: 4 u Documented by: Levothyroxine Sodium (Synthroid) 75 mcg PO DAILY@0600 [facility] Last Admin: 12/13/18 05:24 Dose: 75 mcg Documented by: Lisinopril (Zestril) 10 mg PO DAILY [facility] Last Admin: 12/13/18 10:00 Dose: 10 mg Documented by: Ondansetron HCl (Zofran) 4 mg IV Q8H PRN PRN PRN Reason: NAUSEA Oxycodone HCl (Oxyir) 10 mg PO Q4H PRN PRN PRN Reason: Moderate Pain (4-6/10) Promethazine HCl (Phenergan) 25 mg IV Q6H PRN PRN PRN Reason: Breakthrough nausea/vomiting Psyllium Hydrophilic Mucilloid (Metamucil) 1 packet PO DAILY PRN PRN PRN Reason: Constipation Senna/Docusate Sodium (Senokot-S, Capri-Colace) 2 tablet PO BID [facility] Last Admin: 12/13/18 10:01 Dose: Not Given Documented by: Zolpidem Tartrate (Ambien (Generic)) 5 mg PO QHS PRN PRN PRN Reason: SLEEP Medical Necessity - Tobacco Use Smoking Status: Former smoker Assessment/Plan All Active Problems Acute respiratory insufficiency (Acute) Possible pneumonia (Acute) The patient is a 53 year old M with multiple comorbidities including diabetes mellitus type 2, hypertension and hypothyroidism, homeless, not able to afford medications came to ED for progressively worsening shortness of breath for 2 to 3 weeks. The patient also has dry cough and feels chest congestion, not able to bring up phlegm. Patient has history of smoking a pack per day for 3 to 4 years, quit about 10 years ago. Patient has chills but denies any fever. Denies chest pain. In ED, basic evaluation shows blood pressure 210/102, heart rate 98/min, pulse ox 89% on room air. Patient is morbidly obese, 320 pounds. Chest x-ray shows linear atelectasis in left base with 3 markings in the right lung base possible effusion on left lung base. EKG shows normal sinus rhythm at 86 bpm sinus arrhythmia. Bilateral lower extremities chronic edema for more than 6 months, probably for 2 to 3 years. There is a skin tear on the anterior aspect of left leg. 1 acute respiratory insufficiency, possible due to community-acquired pneumonia/mild pleural effusions and atelectasis: Patient is being admitted to MedSurg floor. Started on IV Rocephin and Zithromax. Patient received vancomycin and Zosyn the ED. Pneumonia work-up including urinary antigens, respiratory panel are negative. Incentive spirometry and chest physiotherapy. Albuterol as needed. 2. Chronic cough with former smoking, 3-4 pack years of his smoking: Will need formal PFT as an outpatient. 3. Bilateral lower extremity swelling/edema with concern of heart failure: BNP 6. But BNP is of lower sensitivity in morbidly obese patient. Patient BMI is 47. 2D echo is ordered to further evaluate for heart failure. Empirically started on Lasix 40 mg IV q. 12 hourly. Blood pressure was uncontrolled 210/102. Blood pressure is controlled continue lisinopril 10 mg daily. Venous Doppler ordered. Podiatry consult. Monitor BMP. Superficial ulcer on the left lower lower leg, present since admission. Tissue culture from left leg showed staph aureus. MRSA PCR is positive. Started on the Bactrim. Wound care nurse consult. 4. Diabetes type II with hyperglycemia: Accu-Chek before meals and at bedtime cover with Humalog sliding scale. A1c 7.5. Lantus insulin further titrated up, 20 units breakfast and 15 units at bedtime daily. 5. Severe hypothyroidism :: TSH 47.3, free T4 0.15. TSH uninhibited, high. Increase Synthroid to 150 mcg daily. Synthroid increased to 150 mcg daily. Monitor TSH and free T4 after 1 week Hypertension: Blood pressure is controlled 6. DVT prophylaxis: Lovenox 40 MG subcu daily Microbiology Past 72 Hours 12/12/18 13:25 Tissue - Leg, Left Gram Stain - Final 12/12/18 13:25 Tissue - Leg, Left Wound Culture - Preliminary Staphylococcus aureus 12/12/18 19:50 Mucosa - Nasopharyngeal Respiratory Panel (PCR) - Final 12/12/18 14:50 Urine, Clean Catch Legionella Antigen - Final 12/12/18 14:50 Urine, Clean Catch Streptococcus pneumoniae Antigen (M - Final Laboratory Results 12/12/18 14:50: Urine Color Yellow, Urine Clarity Clear, Urine pH 7.0, Ur Specific Grace 1.010, Urine Protein Negative, Urine Glucose (UA) 250 H, Urine Ketones Negative, Urine Occult Blood Negative, Urine Nitrite Negative, Urine Bilirubin Negative, Urine Urobilinogen Normal, Ur Leukocyte Esterase Negative, Urine RBC 0 SEEN, Urine WBC 0 SEEN, Ur Squamous Epith Cells 0-5 SEEN, Urine Bacteria RARE, Urine Mucus 0 SEEN 12/12/18 15:55: MRSA (PCR) POSITIVE H 12/12/18 16:35: Lactic Acid 1.6 12/12/18 16:43: POC Glucose 176 H 12/12/18 21:16: POC Glucose 214 H 12/13/18 05:28: WBC 9.9, RBC 4.94, Hgb 15.0, Hct 47.3, MCV 95.7 H, MCH 30.4, MCHC 31.7 L, RDW 14.4, RDW Differential 48.8 H, Plt Count 164, MPV 9.9, Immature Gran % (Auto) 0.400, Neut % (Auto) 75.5 H, Lymph % (Auto) 14.9 L, [place] % (Auto) 4.6, Eos % (Auto) 4.2, Baso % (Auto) 0.4, Absolute Neuts (auto) 7.5, Absolute Lymphs (auto) 1.48, Total Counted Not Reportable 12/13/18 05:28: Sodium 138, Potassium 3.4 L, Chloride 94 L, Carbon Dioxide 37.0 H, Anion Gap 7, BUN 9, Creatinine 0.86, Estim Creat Clear Calc 96.10, Est GFR (MDRD) Af Amer 119, Est GFR (MDRD) Non-Af 98, BUN/Creatinine Ratio 10.4, Glucose 162 H, Calcium 7.7 L, Triglycerides 259 H, Cholesterol 210 H, LDL Cholesterol 121, VLDL Cholesterol 52 H, HDL Cholesterol 37 L, TSH 47.30 H, Free T4 0.15 L 12/13/18 05:28: Hemoglobin A1c 7.5 H 12/13/18 05:31: POC Glucose 186 H 12/13/18 11:43: POC Glucose 233 H Active Medications Acetaminophen (Tylenol) 650 mg PO Q6H PRN PRN PRN Reason: Mild Pain (1-3)/Temp > 100.7 F Al Hydroxide/Mg Hydroxide (Mylanta Ii) 30 ml PO Q6H PRN PRN PRN Reason: Gastric Burning Albuterol Sulfate (Ventolin Aerosols) 2.5 mg INHALATION Q2H PRN PRN PRN Reason: SHORTNESS OF BREATH Aspirin (Ecotrin) 81 mg PO DAILY@0800 [facility] Last Admin: 12/13/18 10:00 Dose: 81 mg Documented by: Atorvastatin Calcium (Lipitor) 10 mg PO QHS [facility] Last Admin: 12/12/18 21:29 Dose: 10 mg Documented by: Dextrose (D50w Syringe) 0 gm IV X1 PRN; Protocol PRN Reason: Hypoglycemia Enoxaparin Sodium (Lovenox) 40 mg SC DAILY [facility] Last Admin: 12/13/18 10:02 Dose: 40 mg Documented by: Famotidine (Pepcid) 20 mg PO BID [facility] Last Admin: 12/13/18 10:00 Dose: 20 mg Documented by: Furosemide (Lasix) 40 mg IV BID@1000,1800 [facility] Last Admin: 12/13/18 10:01 Dose: 40 mg Documented by: Glucagon () 1 mg IM .X1 PRN PRN Reason: Hypoglycemia Guaifenesin (Mucinex) 1,200 mg PO BID [facility] Last Admin: 12/13/18 10:00 Dose: 1,200 mg Documented by: Ceftriaxone Sodium (Rocephin) 1 gm in 50 mls @ 100 mls/hr IV Q12H [facility] Last Admin: 12/13/18 09:58 Dose: 100 mls/hr Documented by: Azithromycin 500 mg/ Dextrose 255 mls @ 250 mls/hr IV Q24 [facility] Stop: 12/14/18 11:02 Last Admin: 12/13/18 10:48 Dose: 250 mls/hr Documented by: Insulin Glargine (Lantus (Bkc)) 15 units SC QHS [facility] Insulin Glargine (Lantus (Bkc)) 20 units SC BREAKFAST [facility] Insulin Human Lispro (Humalog Kwikpen (Bkc)) 0 unit SC ACHS [facility]; Protocol Last Admin: 12/13/18 11:45 Dose: 4 u Documented by: Levothyroxine Sodium (Synthroid) 150 mcg PO DAILY@0600 [facility] Lisinopril (Zestril) 10 mg PO DAILY [facility] Last Admin: 12/13/18 10:00 Dose: 10 mg Documented by: Ondansetron HCl (Zofran) 4 mg IV Q8H PRN PRN PRN Reason: NAUSEA Oxycodone HCl (Oxyir) 10 mg PO Q4H PRN PRN PRN Reason: Moderate Pain (4-6/10) Promethazine HCl (Phenergan) 25 mg IV Q6H PRN PRN PRN Reason: Breakthrough nausea/vomiting Psyllium Hydrophilic Mucilloid (Metamucil) 1 packet PO DAILY PRN PRN PRN Reason: Constipation Senna/Docusate Sodium (Senokot-S, Capri-Colace) 2 tablet PO BID [facility] Last Admin: 12/13/18 10:01 Dose: Not Given Documented by: Zolpidem Tartrate (Ambien (Generic)) 5 mg PO QHS PRN PRN PRN Reason: SLEEP Clinical Impression(s) from Imaging Studies Chest X-Ray 12/12/18 11:53 IMPRESSION: Still noted linear atelectasis in the left base with heavy markings in the right lower lung. Electronically Signed: Sandy Salas, at 14:04 EDT Tel , Service support , Tibia/Fibula X-Ray 12/12/18 13:30 IMPRESSION: No fracture of the tibia or fibula but there is. Calcification inferior to the patella as mentioned above Code Visit Inpatient E&M: 25178 Subs Hosp L3
[2018-12-13 11:50] LABS: Bedside Glucose 233 mg/dL (70-110)
--- NOTE | 2018-12-13 14:08 | VDLE_ITS ---
Reason For Study: edema RIGHT LEFT GSV is normal. GSV is normal. CFV is compressible, spontaneous, phasic, CFV is compressible, spontaneous, phasic, competent and demonstrates normal competent, and demonstrates normal augmentation. augmentation. FV is compressible, spontaneous, phasic, FV is compressible, spontaneous, phasic, competent and demonstrates normal competent and demonstrates normal augmentation. augmentation. POP V is compressible, spontaneous, phasic, POP V is compressible, spontaneous, phasic, competent and demonstrates normal competent and demonstrates normal augmentation. augmentation. T/P Trunk is compressible. T/P Trunk is compressible. PTV is compressible. PTV is compressible. RT PerV is compressible. LT PerV is compressible. Procedure Exam performed portable in patient room. The study was technically difficult. Due to obesity. Interpretation Summary Deep veins of the lower extremities are bilaterally patent and compressible segmentally. There is no evidence of deep vein thrombosis on either side. Valvular competence appears intact within the proximal deep venous systems bilaterally. The greater saphenous veins appear bilaterally patent and compressible segmentally. Ordering Physician: Marcellus Gunn Referring Physician: Vimal Hyman Performed By: Lucita Maynard, ARLEEN, RVT
[2018-12-13 15:20] VITALS: BP 131/68; PULSE 79; RESP 18; TEMP 36.5; O2SAT 92
[2018-12-13] MEDS: Smz/Tmp Ds Tablet 1 TABLET PO ×2 (15:23→22:17)
[2018-12-13 17:41] LABS: Bedside Glucose 158 mg/dL (70-110)
[2018-12-13] MEDS: Glucerna Shake 120 ML LIQUID PO ×2 (18:06→22:25)
[2018-12-13 19:35] VITALS: BP 129/73; PULSE 80; RESP 16; TEMP 36.9; O2SAT 94
--- NOTE | 2018-12-13 19:49 | PCM.CONS.GEN ---
Problem List (1) Ulcer of left lower extremity with fat layer exposed Status: Chronic (2) Tinea unguium Status: Chronic (3) Edema of both legs Status: Chronic (4) Diabetes mellitus Status: Chronic Qualifiers: Diabetes mellitus type: type 2 (5) Poor hygiene Status: Chronic (6) Callus of foot Status: Chronic (7) Hypertrophic condition of skin Status: Chronic Reason for Consult Date of Consultation: 12/13/18 Reason for Consultation: Leg swelling, leg ulcer, thick toenails, calluses, diabetic neuropathy History of Present Illness: The patient is a 53 year old M with multiple comorbidities was seen bedside this evening for multiple concerns including thickened toenails, calluses, chronic leg swelling with some discomfort, left leg wound. He reports he is homeless and has trouble caring for himself. He relates he sleeps in a seated position and his legs are dangling down most of the time. He denies recent trauma. He is unaware of how long his left leg ulcer site has been present and reports it may have started in July 2018. He was previously seen at the [facility] in which debridements and compression therapies were administered. He also has skin buildup noted on his legs and feet which she denies known drainage or redness. His toenails are also long thick in which she is unable to trim safely on his own; he asked for help today. His pain is rated as a 7 out of 10. He denies previous history of congestive heart failure however does relate difficulty breathing while lying flat. He has diabetes and is unaware of his last hemoglobin A1c. He denies claudication with ambulation. He does not report rest burning tingling or numbness of the feet or legs. He reports he does not check his legs or feet on a regular basis. Past Medical History Past Medical History (Chronic Problems): Chronic Problems Leg swelling (Chronic) Edema of both legs (Chronic) Dependent edema (Chronic) Diabetes mellitus (Chronic) Morbid obesity with BMI of 50.0-59.9, adult (Chronic) Poor hygiene (Chronic) Hypertension (Chronic) Hypothyroidism (Chronic) Depression (Chronic) Callus of foot (Chronic) Hypertrophic condition of skin (Chronic) History of thyroid cancer (Chronic) Tinea unguium (Chronic) Ulcer of left lower extremity with fat layer exposed (Chronic) Allergies No Known Allergies Allergy (Verified 12/12/18 11:48) Home Medications: Ambulatory Orders Medication Instructions Recorded Aspirin [Aspir-Low] 81 mg PO DAILY 04/11/17 Levothyroxine [Synthroid] 75 mcg PO DAILY 04/11/17 Lisinopril [Zestril] 10 mg PO DAILY 04/11/17 Metformin HCl 500 mg PO BID 04/11/17 Simvastatin 20 mg PO QHS 05/29/17 Surgical History: - - Patient has previously undergone partial thyroidectomy. He has also undergone left knee surgery in the past. Lives: Homeless Smoking Status: Former smoker - *Family History Paternal History Items: - - The patient's father is 78 years of age, with a history of diabetes mellitus, alcoholism, and heart disease. The patient's mother is , having at the age of 73 with a history of cerebrovascular accident. Review of Systems Constitutional: Reports: Fatigue. Denies: Chills, Fever Cardiovascular: Reports: Edema, Orthopnea. Denies: Chest Pain, Claudication Respiratory: Reports: Shortness of Breath Gastrointestinal: Reports: Abdominal Pain. Denies: Vomiting Musculoskeletal: Reports: Joint stiffness. Denies: Foot Pain Skin: Reports: Skin Changes, Wounds, - - thick toenails Neurological: Reports: Balance problems, Incoordination. Denies: Numbness Patient Problems: Active and Suspected Problems Acute respiratory insufficiency (Acute) Possible pneumonia (Acute) - Physical Exam General: Alert, Oriented x3, Cooperative HEENT: Atraumatic Extremities: No cyanosis, Capillary Refill Less than 3 Seconds, No Calf Tenderness - Negative Mendosa sign bilateral. Compartments are soft to palpate bilateral lower extremities, Diminished Peripheral Pulses - 2 out of 4 palpable DP pulses bilateral and 0 out of 4 PT pulses bilateral possibly secondary to +3 lower extremity edema bilateral. This edema also has concurrent hyperpigmentation and lichenification of the skin bilateral legs., Edema, - - Active range of motion toes and ankles bilateral. No pain on palpation to callus or nail sites. No pain with ulcer manipulation or debridement left leg Skin: Ulcer/ Wound - Pre-debridement 3.8 x 3.8 x 0.1 cm ulcer to anterior medial left leg and post debridement measurement 4.0 x 4.0 x 0.1 cm. The ulcer bed is 100% granular and overlying skin from previous bulla was removed. Excisional subcutaneous debridement was performed to remove nonviable subcutaneous tissue, fibrous tissue, biofilm, slough. No deep tissue or necrosis erythema or purulence or streaking was identified. Most of the lichenification is located to posterior mid leg bilateral with some skin invagination., - - There is no interdigital maceration bilateral the skin is atrophic and hairless to bilateral lower extremities. There is a callus sub-first metatarsal head plantar medial aspect of the right foot and left foot. And also to the medial rim of the right heel. His toenails are long thick dystrophic with subungual debris with discomfort on palpation bilateral 1, 2, 3, 4, 5 Musculoskeletal: No Tenderness to Palpation of Joints or Extremities, Muscle Wasting Neurological: - - Altered sensation light touch bilateral lower extremities Psych/Mental Status: Normal Affect, Appropriate Vital Signs Temp Pulse Resp BP Pulse Ox 98.5 F 80 16 129/73 H 94 12/13/18 19:35 12/13/18 19:35 12/13/18 19:35 12/13/18 19:35 12/13/18 19:35 Oxygen Flow Rate (L/min) 2 Oxygen Delivery Method Room Air Weight: 168 kg Body Mass Index (BMI) 56.2 Finger Stick Blood Glucose 268 Intake and Output for Last 24 Hours 12/11/18 12/12/18 12/13/18 23:59 23:59 23:59 Intake Total 1982.7 / 1982.7 Output Total 275 / 275 Balance 1707.7 / 1707.7 Microbiology Past 72 Hours 12/12/18 13:25 Gram Stain - Final Tissue - Leg, Left Wound Culture - Preliminary Staphylococcus aureus 12/12/18 19:50 Respiratory Panel (PCR) - Final Mucosa - Nasopharyngeal 12/12/18 14:50 Legionella Antigen - Final Urine, Clean Catch 12/12/18 14:50 Streptococcus pneumoniae Antigen (M - Final Urine, Clean Catch Laboratory Tests Past 24 Hrs 12/13/18 12/13/18 12/13/18 05:28 05:28 05:28 WBC 9.9 RBC 4.94 Hgb 15.0 Hct 47.3 MCV 95.7 H MCH 30.4 MCHC 31.7 L RDW 14.4 RDW Differential 48.8 H Plt Count 164 MPV 9.9 Immature Gran % (Auto) 0.400 Neut % (Auto) 75.5 H Lymph % (Auto) 14.9 L [place] % (Auto) 4.6 Eos % (Auto) 4.2 Baso % (Auto) 0.4 Absolute Neuts (auto) 7.5 Absolute Lymphs (auto) 1.48 Total Counted Not Reportable Sodium 138 Potassium 3.4 L Chloride 94 L Carbon Dioxide 37.0 H Anion Gap 7 BUN 9 Creatinine 0.86 Estim Creat Clear Calc 96.10 Est GFR (MDRD) Af Amer 119 Est GFR (MDRD) Non-Af 98 BUN/Creatinine Ratio 10.4 Glucose 162 H Hemoglobin A1c 7.5 H Calcium 7.7 L Triglycerides 259 H Cholesterol 210 H LDL Cholesterol 121 VLDL Cholesterol 52 H HDL Cholesterol 37 L TSH 47.30 H Free T4 0.15 L POC Glucose 12/13/18 12/13/18 12/13/18 17:01 11:43 05:31 POC Glucose 158 H 233 H 186 H 12/12/18 21:16 POC Glucose 214 H Assessment/Plan All Active Problems Acute respiratory insufficiency (Acute) Possible pneumonia (Acute) Left leg ulcer with fat layer exposed, no infection Lower extremity edema secondary to potential venous insufficiency, lymphedema, fluid overload, other etiologies Chronic lower extremity skin changes including lichenification Callus bilateral hallux and right heel Tinea unguium versus onychomycosis bilateral 1, 2, 3, 4, 5 with bilateral toe pain Diabetes with neuropathy I reviewed and discussed his case his evening. Other comorbidities Poor hygiene His diagnostic data was reviewed. He does not demonstrate any local lower extremity signs of infection and his white blood cell count is 9.9. It is noted his last hemoglobin A1c on file 7.5%. To continue proper glycemic control to optimize diabetes management. To check feet daily and wear protective shoes and socks to prevent ulcer and infection formation. To dry well between the webspaces. To moisturize legs with lotion. This will be ordered while he was in the hospital as well with additional surgical scrub to help remove dried skin debris. The left leg ulcer site was debrided with a 15 blade scalpel as noted in the physical exam section after verbal consent was obtained. He tolerated this well and no local anesthetic was deemed necessary. Pressure was applied to maintain hemostasis. A dry gauze dressing was applied. I recommend application of Aquacel Ag daily. Edema control with continued Lasix and bilateral lower extremity elevation is recommended. I do also recommend compression garments after deep venous thrombosis is ruled out. It is noted these exams for bilateral lower extremity was ordered for tomorrow and the compression plan will be revisited after that is reviewed. He was reassured no local signs of infection are noted. The calluses were also debrided with a 15 blade without incident. To moisturize and file with an emery board periodically. His toenails were also debrided with a sterile nail nipper in length and thickness bilateral 1, 2, 3, 4, 5 without incident. This was performed to reduce fungal load, decreased pressure and wound formation. He tolerated this well. I recommend he follows up with the wound healing center within 1 week of discharge. Nutritional supplementation was also recommended to optimize heailng; Germán ordered. Medical management and DVT prophylaxis per medical team is appreciated. We will continue to follow him on a weekly basis while in house. Thank you very much for the consultation. Please not hesitate to call if you have any questions. Janeen Wilkinson DPM, F[facility] [phone]
--- NOTE | 2018-12-13 20:07 | DCINST_ITS ---
Weight Bearing Status: Weight bearing as tolerated - with protective shoe gear Keep extremity elevated above heart level: Left Leg, Right Leg Call your doctor if your incision/area has: Continuous Slow Oozing, Sudden Increased Bleeding, Increased Pain/ Swelling, Increased Redness, Foul Smelling Discharge Call your doctor if you observe: Fever of 101 or Higher, Calf discomfort, Uncontrolled pain Cleanse incision/area with: Soap & Water - wash daily, Keep Dressing Clean & Dry, - - change dressing every 1 - 2 days with aquacel ag, gauze, kerlix Allergies/Adverse Reactions: Allergies No Known Allergies Allergy (Verified 12/12/18 11:48) Medications to take at Discharge Aspirin [Aspir-Low] 81 mg PO DAILY 04/11/17 Levothyroxine [Synthroid] 75 mcg PO DAILY 04/11/17 Lisinopril [Zestril] 10 mg PO DAILY 04/11/17 Metformin HCl 500 mg PO BID 04/11/17 Simvastatin 20 mg PO QHS 05/29/17 Primary Care Physician: Vimal White DO [Primary Care Provider] - Test Results: Test results from this visit will be discussed in further detail at your follow- up appointment, if applicable. Please Follow Up With: Clinic,Wound When: 1 week after discharge
[2018-12-13] MEDS: Atorvastatin Calcium 10 MG Tablet PO (22:19)
[2018-12-13 22:26] LABS: Bedside Glucose 181 mg/dL (70-110)
[2018-12-14 04:44] VITALS: BP 118/75; PULSE 73; RESP 16; TEMP 36.7; O2SAT 93
[2018-12-14] MEDS: Levothyroxine 150 MCG Tablet PO (05:00)
[2018-12-14 06:07] LABS: Anion Gap 8 (5-15); BUN 12 mg/dL (7-18); BUN/Creat Ratio 13.9 RATIO (10-20); Calcium,Total 8.3 mg/dL (8.5-10.1); Chloride 94 mmol/L (98-107); Creatinine, Serum 0.86 mg/dL (0.70-1.30); EST Glomerular Filtration Rate 98 mL/min (>60); Est Glom Filt Rate - Afr Amer 119 mL/min (>60); Glucose 154 mg/dL (74-106); Potassium 3.7 mmol/L (3.5-5.1); Sodium Level 137 mmol/L (136-145)
[2018-12-14] MEDS: Insulin Lispro 100 UNIT/ML INSULN.PEN SC ×3 (06:39→17:21)
[2018-12-14 06:45] LABS: Bedside Glucose 158 mg/dL (70-110)
[2018-12-14 08:13] VITALS: BP 105/74; PULSE 701; RESP 18; TEMP 36.6; O2SAT 93
[2018-12-14] MEDS: Glucerna Shake 120 ML LIQUID PO ×3 (08:30→17:20)
[2018-12-14] MEDS: Aspirin E.C. 81 MG Tablet PO (08:56)
[2018-12-14] MEDS: Enoxaparin 40 MG/0.4 ML Syringe SC (08:57)
[2018-12-14] MEDS: Smz/Tmp Ds Tablet 1 TABLET PO (08:57)
[2018-12-14] MEDS: guaiFENesin 1,200 MG Tablet 1200 MG PO (08:57)
[2018-12-14] MEDS: Furosemide 40 MG/4 ML Vial IV (08:58)
[2018-12-14] MEDS: Senna/Docusate Sodium 1 Tablet 2 TABLET PO (08:58)
[2018-12-14] MEDS: Lisinopril 10 MG Tablet PO (08:58)
[2018-12-14] MEDS: Famotidine 20 MG Tablet PO (08:58)
--- NOTE | 2018-12-14 11:04 | PCM.DC ---
- Discharge Diagnoses Current Active Problems: Current Active and Chronic Problems Acute respiratory insufficiency (Acute) Possible pneumonia (Acute) Tinea unguium (Chronic) Ulcer of left lower extremity with fat layer exposed (Chronic) You will use the following diet at home:: Calorie/Carbohydrate Controlled (specify 1200, 1400, etc) - 1800 CHUN Your food should be the consistency of: Regular Your liquids should be the consistency of: Regular/Thin Discharge Activity: Return to Normal Activity Weight Bearing Status: Weight bearing as tolerated - with protective shoe gear Keep extremity elevated above heart level: Left Leg, Right Leg Call your doctor if your incision/area has: Continuous Slow Oozing, Sudden Increased Bleeding, Increased Pain/ Swelling, Increased Redness, Foul Smelling Discharge Call your doctor if you observe: Fever of 101 or Higher, Calf discomfort, Uncontrolled pain Cleanse incision/area with: Soap & Water - wash daily, Keep Dressing Clean & Dry, - - change dressing every 1 - 2 days with aquacel ag, gauze, kerlix Allergies/Adverse Reactions: Allergies No Known Allergies Allergy (Verified 12/12/18 11:48) Medications to take at Discharge Aspirin [Aspir-Low] 81 mg PO DAILY 04/11/17 Levothyroxine [Synthroid] 75 mcg PO DAILY 04/11/17 Atorvastatin Calcium [Lipitor] 10 mg PO QHS #30 tab 12/14/18 Furosemide [Lasix] 40 mg PO DAILY #30 tab 12/14/18 Lisinopril [Zestril] 10 mg PO DAILY #30 tab 12/14/18 Metformin HCl 500 mg PO BID #60 tab 12/14/18 Smz/Tmp Ds [Bactrim Ds] 1 tab PO BID #20 tab 12/14/18 The following prescriptions were given: Smz/Tmp Ds [Bactrim Ds] 1 tab PO BID #20 tab Transmission Status: Received by [facility] Furosemide [Lasix] 40 mg PO DAILY #30 tab Transmission Status: Received by [facility] Atorvastatin Calcium [Lipitor] 10 mg PO QHS #30 tab Transmission Status: Received by [facility] Metformin HCl 500 mg PO BID #60 tab Transmission Status: Received by [facility] Lisinopril [Zestril] 10 mg PO DAILY #30 tab Transmission Status: Received by [facility] Primary Care Physician: Vimal White DO [Primary Care Provider] - Please follow up with your Primary Care Physician in: IN ONE WEEK Test Results: Test results from this visit will be discussed in further detail at your follow-up appointment, if applicable. Please Follow Up With: Clinic,Wound When: 1 week after discharge
[2018-12-14 11:21] LABS: Bedside Glucose 250 mg/dL (70-110)
--- NOTE | 2018-12-14 11:43 | CASEMGMT ---
Addendum entered by Christine Bush 12/14/18 12:03: Pt states that he also has a history of anxiety and depression, states that he was going to counseling at [facility] and states that once he finds a place to live he wants to get back into counseling at [facility]. Pt denied additional needs or concerns. Original Note: Social Work Note SW updated by that pt is homeless and living in his car. SW met with pt, introduced self and role at [facility]. Pt is alert and orientated x3. Pt confirms that he is homeless and living in his car. Pt denied having any family or friends that he can live with. Pt states that he has burned those bridges and denied having any supports from any family or friends. Pt states that he has started the process of filling out social security but has questions regarding the application. SW encouraged pt to call Social Security office in regards to his questions and ask Social Security if he is able to get assistance with the application if needed. NORMA educated pt on [facility], [place] [id number], [employer], [facility], and RX assistance program. SW encouraged pt to either call or stop into [facility] and ask for application/assistance completing application. Pt states understanding, states that he will be able to do daily dressing changes. Pt denied additional needs or concerns at this time. Christine Bush [employer], [employer]ER
[2018-12-14 14:00] VITALS: BP 119/74; PULSE 82; RESP 18; TEMP 36.8; O2SAT 91
[2018-12-14 16:45] LABS: Bedside Glucose 170 mg/dL (70-110)
[2018-12-14 17:53] VITALS: BP 119/74; PULSE 82; RESP 18; TEMP 36.8; O2SAT 91
--- NOTE | 2018-12-16 08:49 | PCM.DC.SUM ---
Discharge Date and Diagnosis Date of Admission: 12/12/18 Date of Discharge: 12/14/18 - Primary Discharge Diagnosis #1 dyspnea secondary to atelectasis and deconditioning #2 probable chronic obstructive pulmonary disease #3 lower extremity edema-etiology unclear #4 type 2 diabetes-uncontrolled #5 hypothyroidism #6 noncompliance with medical regimen #7 superficial ulceration of the skin of the left lower leg due to stasis dermatitis #8 stasis dermatitis of both lower legs - Secondary Discharge Diagnosis Chronic Problems Leg swelling (Chronic) Edema of both legs (Chronic) Dependent edema (Chronic) Diabetes mellitus (Chronic) Morbid obesity with BMI of 50.0-59.9, adult (Chronic) Poor hygiene (Chronic) Hypertension (Chronic) Hypothyroidism (Chronic) Depression (Chronic) Callus of foot (Chronic) Hypertrophic condition of skin (Chronic) History of thyroid cancer (Chronic) Tinea unguium (Chronic) Ulcer of left lower extremity with fat layer exposed (Chronic) Hospital Course and Treatment Operations: None Procedures: 2-D Echocardiogram Summary of Care Provided: The patient is a 53 year old M who was seen in the emergency room at [facility] with a chief complaint of shortness of breath over the last several months. Patient is noncompliant with his medications and is supposed to be taking medications for diabetes and other medical problems but does not follow-up as directed and does not take medications. Patient lives in a truck. Chest x-ray was obtained in the emergency room which showed atelectasis but there is no evidence of CHF. His CBC was unremarkable, BMP was remarkable for a glucose of 316, beta nitrate peptide was normal. Patient was admitted to [place] [address], he was placed on IV Lasix for generalized leg edema, he had a chronic wound on his left leg which appeared to be superficial and noninfected, dressings were placed over this area. Patient had evidence of stasis dermatitis on both lower extremities. Patient had an echocardiogram performed which showed a normal EF and no evidence of pulmonary hypertension. Patient had a TSH performed which was highly elevated and his free T4 was low, however, patient had not been taking any medication as prescribed previously. Patient was also seen by podiatry due to a chronic left lower leg wound felt to be secondary to stasis dermatitis, this wound did not appear to be infected and podiatry recommended follow-up at the wound care center for the patient. On 12/14/2018, patient was seen and examined: On examination he appeared in good health and spirits. Vital signs as documented. Skin warm and dry and without overt rashes. Neck without JVD. Lungs clear. Heart exam notable for regular rhythm, normal sounds and absence of murmurs, rubs or gallops. Abdomen unremarkable and without evidence of organomegaly, masses, or abdominal aortic enlargement. Extremities-generalized edema both lower legs is noted along with stasis dermatitis changes. Neuro: Cranial nerves II through XII are grossly intact, no focal motor deficits were noted, sensation to light touch and pinprick intact. Psych: Patient is alert and oriented x3, he does not appear anxious or depressed On 12/14/2018, patient was seen and examined and felt to be in stable condition for discharge, this examiner felt that the patient would probably not be compliant with medical treatment, his prescriptions were phoned in and he was instructed to follow-up with his family doctor. - Physical Exam Vital Signs Temp Pulse Resp BP Pulse Ox 98.3 F 82 18 119/74 91 12/14/18 17:53 12/14/18 17:53 12/14/18 17:53 12/14/18 17:53 12/14/18 17:53 Oxygen Flow Rate (L/min) 2 Oxygen Delivery Method Room Air Weight: 160.3 kg Body Mass Index (BMI) 56.2 Finger Stick Blood Glucose 268 Intake and Output for Last 24 Hours 12/14/18 12/15/18 12/16/18 23:59 23:59 23:59 Intake Total 1210.4 / 1210.4 Balance 1210.4 / 1210.4 Microbiology Past 72 Hours 12/14/18 13:42 Gram Stain - Final Sputum, Expectorated/Coughed Respiratory Culture - Preliminary Appears to be normal respiratory danielle. Further studies to follow. 12/12/18 13:25 Gram Stain - Final Tissue - Leg, Left Wound Culture - Final Meth. resistant Staph. aureus 12/12/18 19:50 Respiratory Panel (PCR) - Final Mucosa - Nasopharyngeal Discharge Activity: Return to Normal Activity Weight Bearing Status: Weight bearing as tolerated - with protective shoe gear Keep extremity elevated above heart level: Left Leg, Right Leg Call your doctor if your incision/area has: Continuous Slow Oozing, Sudden Increased Bleeding, Increased Pain/ Swelling, Increased Redness, Foul Smelling Discharge Call your doctor if you observe: Fever of 101 or Higher, Calf discomfort, Uncontrolled pain Cleanse incision/area with: Soap & Water - wash daily, Keep Dressing Clean & Dry, - - change dressing every 1 - 2 days with aquacel ag, gauze, kerlix Home Medications: Medications to take at Discharge Aspirin [Aspir-Low] 81 mg PO DAILY 04/11/17 Levothyroxine [Synthroid] 75 mcg PO DAILY 04/11/17 Atorvastatin Calcium [Lipitor] 10 mg PO QHS #30 tab 12/14/18 Furosemide [Lasix] 40 mg PO DAILY #30 tab 12/14/18 Lisinopril [Zestril] 10 mg PO DAILY #30 tab 12/14/18 Metformin HCl 500 mg PO BID #60 tab 12/14/18 Smz/Tmp Ds [Bactrim Ds] 1 tab PO BID #20 tab 12/14/18 Following Prescrptions Were Given to Patient: Smz/Tmp Ds [Bactrim Ds] 1 tab PO BID #20 tab Transmission Status: Received by [facility] 181 Furosemide [Lasix] 40 mg PO DAILY #30 tab Transmission Status: Received by [facility] 181 Atorvastatin Calcium [Lipitor] 10 mg PO QHS #30 tab Transmission Status: Received by [facility] 181 Metformin HCl 500 mg PO BID #60 tab Transmission Status: Received by [facility] 181 Lisinopril [Zestril] 10 mg PO DAILY #30 tab Transmission Status: Received by [facility] [id number] Primary Care Physician: Vimal White DO [Primary Care Provider] - Please follow up with your Primary Care Physician in: IN ONE WEEK Please Follow Up With: Clinic,Wound When: 1 week after discharge Disposition: Home Minutes spent on discharge:: 32 Patient Condition:: Stable Medical Necessity - Tobacco Use Smoking Status: Former smoker Meaningful Use Info Meaningful Use Diagnoses (Choose all that apply): None applicable Code Visit Inpatient E&M: 55137 Disch Hosp
== END 2018-12-14 17:53 | disposition home or self-care (01) | DRG 143 ==
LOC: ED 12:35 → MS3 15:27
PROVIDERS: Admitting Provider Internal Medicine; Emergency Provider Emergency Medicine; Family Provider Student in an Organized Health Care Education/Training Program; PCP Student in an Organized Health Care Education/Training Program; Referring Provider Internal Medicine; Visit Provider Internal Medicine
DX: J98.11 Atelectasis (principal); E66.01 Morbid (severe) obesity due to excess calories; Z68.43 Body mass index [BMI] 50.0-59.9, adult; E11.65 Type 2 diabetes mellitus with hyperglycemia; Z59.0 Homelessness; L84 Corns and callosities; L97.222 Non-pressure chronic ulcer of left calf with fat layer exposed; E11.40 Type 2 diabetes mellitus with diabetic neuropathy, unspecified; B35.1 Tinea unguium; L28.0 Lichen simplex chronicus; R06.00 Dyspnea, unspecified; E89.0 Postprocedural hypothyroidism; I87.2 Venous insufficiency (chronic) (peripheral); T38.3X6A Underdosing of insulin and oral hypoglycemic [antidiabetic] drugs, initial encounter; Z91.120 Patient's intentional underdosing of medication regimen due to financial hardship; I10 Essential (primary) hypertension; J44.9 Chronic obstructive pulmonary disease, unspecified; R60.0 Localized edema; Z85.850 Personal history of malignant neoplasm of thyroid; Z87.891 Personal history of nicotine dependence; F32.9 Major depressive disorder, single episode, unspecified
CPT/HCPCS: 36415; 71045; 73590; 80048; 80061; 81001; 82009; 82962; 83036; 83605; 83880; 84439; 84443; 84484; 85025; 87070; 87077; 87186; 87205; 87449; 87633; 87641; 93005; 93306; 93970; 94640; 94667; 97802; 99285; J7030; J7050; Q9957; A4216; J1940

== ENCOUNTER 2018-12-14 20:48 | Emergency (ER) | payer MEDICAID, SELFPAY ==
[2018-12-12 15:40] VITALS: BMI 56.2
[2018-12-14 20:49] VITALS: BP 160/85; PULSE 89; RESP 23; TEMP 36.8; O2SAT 95; BMI 55.2
--- NOTE | 2018-12-14 23:07 | EKG12_ITS ---
Test Reason : Blood Pressure : / mmHG Vent. Rate : 079 BPM Atrial Rate : 079 BPM P-R Int : 184 ms QRS Dur : 088 ms QT Int : 400 ms P-R-T Axes : 048 000 093 degrees QTc Int : 458 ms Normal sinus rhythm Low voltage QRS Non- specific T- Wave Abnormality Abnormal ECG Confirmed by BREANNA HODGES, MONET ([id number]), loan expeditor MAXIMILIANO SORIA ([id number]) on 12/16/2018 8:01:19 AM Referred By: ARCELIA Confirmed By:MONET CARLOS MD
--- NOTE | 2018-12-14 23:07 | RAD_ITS ---
HISTORY: Short of Breath/Dyspnea EXAMINATION/TECHNIQUE: XR Chest 2 Views: COMPARISON: Chest x-ray exams 12/12/2018 and 10/29/[address] abdomen and pelvis 10/29/2018 FINDINGS: No significant change. Chronic mild elevation of left hemidiaphragm accompanied by left basilar and lingular segment chronic discoid atelectasis/scarring. Bibasilar coarse bronchovascular markings without significant change in keeping with bronchiectasis. Left apical emphysema suggested. No new or acute infiltrate seen. Normal heart size. No vascular congestion or significant pleural effusion. No pneumothorax. RAD/Chest PA and Lateral IMPRESSION: 1. Chronic lung disease with left basilar and lingular segment chronic discoid atelectasis/scarring. 2. Bibasilar chronic bronchiectasis suggested. 3. No acute infiltrate seen. at 0134 Reported and signed by: Jarad Ramos MD Electronically Signed: Jarad Ramos, at 1:33 EDT Tel , Service support ,
--- NOTE | 2018-12-14 23:20 | ED.VIS.GEN ---
History of Present Illness Chief Complaint: Shortness of Breath Informant: Patient Narrative: Complaining of persistent shortness of breath. Patient stated that he was in the hospital and discharged at 5:00 today. He stated that he was never given a diagnosis but they did send him some antibiotics to the pharmacy that he has not filled. He is unsure if he actually has a pneumonia. He denies any chronic lung or heart problems. He had a echocardiogram of his heart that showed no significant abnormalities. EF was 60%. He had a ultrasound of his lower extremities due to chronic venous stasis insufficiency. There is no DVT found. He was started on a water pill and that hospital. Patient has a finger pulse ox and he is been checking at home. Its been ranging from 80 to 94%. This is why he came in. He denies any new cough fevers or chills. Denies any chest pain. Wanted to be checked out again. - Past Medical History (1) Acute respiratory insufficiency Status: Acute (2) Possible pneumonia Status: Acute (3) Callus of foot Status: Chronic (4) Dependent edema Status: Chronic (5) Depression Status: Chronic (6) Diabetes mellitus Status: Chronic (7) Edema of both legs Status: Chronic (8) History of thyroid cancer Status: Chronic (9) Hypertension Status: Chronic (10) Hypertrophic condition of skin Status: Chronic (11) Hypothyroidism Status: Chronic (12) Leg swelling Status: Chronic (13) Morbid obesity with BMI of 50.0-59.9, adult Status: Chronic (14) Poor hygiene Status: Chronic (15) Tinea unguium Status: Chronic (16) Ulcer of left lower extremity with fat layer exposed Status: Chronic Past Medical History - Allergies and Home Meds Allergies/Adverse Reactions: Allergies No Known Allergies Allergy (Verified 12/14/18 20:52) Primary Care Physician: Vimal White DO [Primary Care Provider] - Prior records reviewed: Yes Surgical History: - - Patient has previously undergone partial thyroidectomy. He has also undergone left knee surgery in the past. Lives: Alone Smoking Status: Former smoker Alcohol: None Drugs: None - Family History Paternal Family History: Reports: - - The patient's father is 78 years of age, with a history of diabetes mellitus, alcoholism, and heart disease. The patient's mother is , having at the age of 73 with a history of cerebrovascular accident. Review of Systems General: Denies: Chills, Fever, Sweats Eyes: Denies: Visual changes - bilaterally, Diplopia ENT: Denies: Rhinorrhea, Sore throat Cardiovascular: Denies: Chest pain, Palpitations Respiratory: Reports: Dyspnea. Denies: Cough, Dyspnea on exertion Gastrointestinal: Denies: Abdominal pain, Nausea, Vomiting, Diarrhea, Melena, Hematochezia Genitourinary: Denies: Dysuria, Hematuria, Frequency Musculoskeletal: Denies: Back pain, Extremity Pain Skin: Denies: Rash, Wounds Neurological: Denies: Headache, Weakness, Numbness Physical Exam Vital Signs/Narrative: Vital Signs Temp Pulse Resp BP Pulse Ox 12/14/18 20:49 98.3 F 89 23 H 160/85 H 95 General: Well nourished, Well developed, No Acute Distress Head: Normocephalic, Atraumatic Eyes: Perrl, EOMI ENT: Moist mucous membranes, No rhinorrhea Neck: Supple, Nontender Cardiovascular: Regular rate, Regular rhythm, No murmurs Respiratory: No distress, CTA bilaterally, Chest nontender Abdomen: Soft, Nontender, Nondistended, Normal bowel sounds Back: Nontender, Normal Inspection Extremities: Nontender, Edema - Chronic edema of the lower extremities bilaterally due to venous stasis that is severe. Negative for: No edema Skin: - - Half-dollar sized venous stasis ulcer on the left medial ankle. No evidence of infection.. Negative for: Normal color, No rash Neurological: Alert, Oriented x3, Cranial nerves II-XII grossly intact, Normal Strength, Normal Sensation Psychological: Normal affect, Normal Mood Diagnostic/Tx/Re-eval - Medical Decision Making Resting comfortably. Reassured in the department that his lungs sound nice and clear. Nonetheless repeat lab work EKG and chest x-ray obtained to rule out abnormality lab work reviewed. Patient has slight leukocytosis. Troponin negative. EKG shows normal sinus rhythm at a rate of 79. No acute ischemia. Troponin negative. Chest x-ray shows chronic changes. Chronic elevation left hemidiaphragm. Atelectasis noted. No new infiltrates. Patient remains stable resting comfortably. Reassured. I do not think he has CHF. He had normal echocardiogram on his last admission. Will be discharged to follow-up. ED Disposition - Plan for ED Patient: Disposition: Home or Assisted Living Diagnosis: Dyspnea Instructions: Dyspnea Referrals: Vimal White DO [Primary Care Provider] -
[2018-12-14 23:38] VITALS: BP 131/82; PULSE 77; RESP 18; O2SAT 91
[2018-12-15 00:05] LABS: Absolute Lymphocyte Count 2.16 X10^3/ul (0.83-4.51); Absolute Neutrophil Count 8.6 X10^3/uL (2.0-7.7); Basophil# 0.03 X10^3/uL; Basophil% 0.3 % (0-1); Eosinophil# 0.43 X10^3/uL; Eosinophils% 3.6 % (0-5); Hematocrit 48.4 % (40-54); Hemoglobin 15.8 g/dl (13.0-16.5); Lymphocyte # 2.16 X10^3/ul (4.0); Lymphocyte % 18.3 % (19-41); Mean Corp Hgb Conc 32.6 g/gl (32-36); Mean Corpuscular Hgb 31.3 pg (27.0-32.0); Mean Platelet Vol. 10.1 fl (6.2-12.0); Monocyte% 5.1 % (0-10); Neutrophil # 8.55 X10^3/uL (2.7-7.7); Neutrophil % 72.4 % (47-70); Platelet Count 187 K/mm3 (150-450); RBC Distribution Width CV 14.4 % (11.6-14.6); RBC Distribution Width SD 50.6 fl (35.1-43.9); Red Blood Count 5.04 M/mm3 (4.6-6.2); White Blood Count 11.8 K/mm3 (4.4-11.0)
[2018-12-15 00:06] LABS: POSITIVE COUNT NO; POSITIVE DIFFERENTIAL NO; POSITIVE MORPHOLOGY NO
[2018-12-15 00:32] LABS: Anion Gap 3 (5-15); BUN 20 mg/dL (7-18); BUN/Creat Ratio 16.1 RATIO (10-20); Calcium,Total 9.1 mg/dL (8.5-10.1); Chloride 96 mmol/L (98-107); Creatinine, Serum 1.24 mg/dL (0.70-1.30); EST Glomerular Filtration Rate 65 mL/min (>60); Est Glom Filt Rate - Afr Amer 78 mL/min (>60); Estimated Creatinine Clearance 66.65 ml/min; Glucose 146 mg/dL (74-106); Potassium 3.8 mmol/L (3.5-5.1); Sodium Level 135 mmol/L (136-145)
[2018-12-15 00:43] VITALS: O2SAT 95
[2018-12-15 01:52] VITALS: BP 121/78; PULSE 82; RESP 20; O2SAT 96
== END 2018-12-15 01:53 | disposition home or self-care (01) ==
PROVIDERS: Emergency Provider Emergency Medicine; Family Provider Student in an Organized Health Care Education/Training Program; PCP Student in an Organized Health Care Education/Training Program
DX: R06.00 Dyspnea, unspecified (principal); E11.9 Type 2 diabetes mellitus without complications; I10 Essential (primary) hypertension; R60.0 Localized edema; E66.01 Morbid (severe) obesity due to excess calories; Z68.43 Body mass index [BMI] 50.0-59.9, adult; Z85.850 Personal history of malignant neoplasm of thyroid; Z87.891 Personal history of nicotine dependence; Z79.84 Long term (current) use of oral hypoglycemic drugs; Z79.899 Other long term (current) drug therapy; Z79.82 Long term (current) use of aspirin
CPT/HCPCS: 71046; 80048; 84484; 85025; 93005; 99285; A4216

== ENCOUNTER 2018-12-17 13:18 | Outpatient (RCR) | payer MEDICAID, SELFPAY ==
[2018-12-12 15:40] VITALS: BMI 56.2
[2018-12-17 13:32] VITALS: BP 153/93; PULSE 88; RESP 18; TEMP 36.9; BMI 55.0
--- NOTE | 2018-12-17 14:06 | WC ---
WOUND ADMIT COMPLETE. PT CONVEYED TO THIS NURSE THAT HE IS HOMELESS. LIVING OUT OF TRUCK. DOES NOT HAVE MONEY FOR MEDICATIONS. ONLY HAD 4$ RECENTLY AFTER BEING DISCHARGED FROM [facility] TO GET HIS SYNTHROID. WILL REPORT TO SAVANNAH PAREDES AND ELODIA NAVAS.
--- NOTE | 2018-12-17 18:44 | PCM.WC.HP ---
(1) Ulcer of left lower extremity with fat layer exposed Status: Chronic Current Visit: Yes Code(s): L97.922 - Non-pressure chronic ulcer of unspecified part of left lower leg with fat layer exposed (2) Venous insufficiency (chronic) (peripheral) Status: Chronic Current Visit: Yes Code(s): I87.2 - Venous insufficiency (chronic) (peripheral) (3) Venous stasis dermatitis of both lower extremities Status: Acute Current Visit: Yes Code(s): I87.2 - Venous insufficiency (chronic) (peripheral) (4) Hypertension Status: Chronic Current Visit: No Code(s): I10 - Essential (primary) hypertension (5) Hypothyroidism Status: Chronic Current Visit: No Qualifiers: Code(s): E03.9 - Hypothyroidism, unspecified (6) Morbid obesity with BMI of 50.0-59.9, adult Status: Chronic Current Visit: No Code(s): E66.01 - Morbid (severe) obesity due to excess calories; Z68.43 - Body mass index (BMI) 50-59.9, adult History of Present Illness Date of Service: 12/18/18 Chief Complaint: Chronic swelling and edema of the lower extremities, associated with ulceration to left lower extremity History of Wound: This is a 53-year-old morbidly obese male with multiple medical problems, which include uncontrolled diabetes mellitus, hypertension, hypothyroidism, depression, and a history of thyroid cancer. The patient was recently admitted to [facility] from 12/12/2018 through 12/14/2018 for dyspnea. He was worked up with an echocardiogram and BNP which was normal. He was discharged home and instructed to follow-up with his primary care for management of his diabetes which is poorly controlled. Patient does have a history of noncompliance with medical management. The patient states that he has had his wound to his left lower extremity for approximately 6 months. He is currently living out of his truck and is not using anything for wound care. He states that he has a history of chronic lower extremity edema and spends a majority of his time sitting. He denies. He does state that there is a small amount of serous drainage coming from the open ulceration. He otherwise denies any fever, chills, nausea, vomiting, worsening shortness of breath, chest pain or pressure, syncope or presyncopal episodes. Past Medical History Past Medical History: Chronic Problems Leg swelling (Chronic) Edema of both legs (Chronic) Dependent edema (Chronic) Diabetes mellitus (Chronic) Morbid obesity with BMI of 50.0-59.9, adult (Chronic) Poor hygiene (Chronic) Hypertension (Chronic) Hypothyroidism (Chronic) Depression (Chronic) Callus of foot (Chronic) Hypertrophic condition of skin (Chronic) History of thyroid cancer (Chronic) Tinea unguium (Chronic) Ulcer of left lower extremity with fat layer exposed (Chronic) Venous insufficiency (chronic) (peripheral) (Chronic) Surgical History: - - Patient has previously undergone partial thyroidectomy. He has also undergone left knee surgery in the past. Allergies/Adverse Reactions: Allergies No Known Allergies Allergy (Verified 12/17/18 13:56) Home Medications: Ambulatory Orders Medication Instructions Recorded Aspirin [Aspir-Low] 81 mg PO DAILY 04/11/17 Levothyroxine [Synthroid] 75 mcg PO DAILY 04/11/17 Atorvastatin Calcium [Lipitor] 10 mg PO QHS #30 tab 12/14/18 Furosemide [Lasix] 40 mg PO DAILY #30 tab 12/14/18 Lisinopril [Zestril] 10 mg PO DAILY #30 tab 12/14/18 Metformin HCl 500 mg PO BID #60 tab 12/14/18 Smz/Tmp Ds [Bactrim Ds] 1 tab PO BID #20 tab 12/14/18 - Family History Paternal - - The patient's father is 78 years of age, with a history of diabetes mellitus, alcoholism, and heart disease. The patient's mother is , having at the age of 73 with a history of cerebrovascular accident. Smoking Status: Former smoker Review of Systems Constitutional: Denies: Chills, Fever, Weight Change Eyes: Denies: Pain, Vision Change HEENT: Denies: Difficulty Hearing, Difficulty Swallowing, Sinus Congestion Cardiovascular: Denies: Chest Pain, Palpitations Respiratory: Denies: Cough, Shortness of Breath Gastrointestinal: Denies: Diarrhea, Nausea, Vomiting Genitourinary: Denies: Dysuria, Hematuria Skin: Reports: Wounds - See HPI Endocrine: Denies: Heat/ Cold Intolerance, Polydipsia, Polyuria Hematologic/ Lymphatic: Denies: Easy Bruising, Easy Bleeding - Physical Exam Vital Signs Temp Pulse Resp BP 98.4 F 88 18 153/93 H 12/17/18 13:32 12/17/18 13:32 12/17/18 13:32 12/17/18 13:32 General: Alert, Oriented x3, Cooperative, No apparent distress HEENT: PERRLA, EOMI Neck: Supple, No JVD Lungs: Clear to auscultation, Diminished - In the bases Cardiovascular: Regular rate, Regular Rhythm Abdomen: Soft, Non Tender, Obese Extremities: Capillary Refill Less than 3 Seconds, Edema - 3+ pitting edema bilateral lower extremities, Peripheral Pulses Normal - Bilateral dorsal pedis pulses normal, - - Chronic venous changes noted to bilateral lower extremities Skin: Ulcer/ Wound - Ulceration present to the left lower extremity with adherent slough to wound bed, no redness streaking or warmth at this time Wound Measurements and Assessment WC - Nurse 1 - General Ulcer Measurement Start: 12/17/18 13:29 Freq: Status: Active Protocol: Activity Type Activity Date Activity User E-Sign Co-Sign Detail Recorded Client Recorded Date Recorded By Document 12/17/18 13:32 [facility] [id number] 12/17/18 13:53 [facility] 12/17/18 13:32 Wound Center Nurse 1 [Ulcer Assessment] #3- L MEDIAL LE -Combined with other wound No -Current Size (cm) - Length 3.2 -Current Size (cm) - Width 4 -Current Size (cm) - Depth 0.1 -Total Square Cm 12.8 -Date of Last Picture (Recall this 12/17/18 field) -Photo Taken Yes -Epithelialization None Present -Tunneling No -Undermining/Tunneling No -Circular Undermining No -Exudate Amt Small -Exudate Type Serous -Wound Margin Distinct, Outline Attached -Granulation Amt Large (67-100%) -Granulation Quality [place] -Slough/Fibrin Yes -Necrosis Amt Small (1-33%) -Necrotic Tissue Type Adherent Slough -Texture (Capri-wound Skin Appearance) Assessed, Scarring -Moisture (Capri-wound Skin Appearance Assessed,Dry/ ) Scaly -Color (Capri-wound Skin Appearance) Assessed, Hemosiderin Staining -Temperature (Capri-wound Skin No Abnormality Appearance) (Pt Warm) -Tenderness on Palpation (Capri-wound No Skin Appearance) -Foul Odor after Cleansing No -Anesthetic Used 5% Lidocaine Gel [Edema Assessment] -Lower Limb Edema Present Yes -Right Calf (cm) 55.5 -Right Ankle (cm) 32.8 -Left Calf (cm) 55.5 -Left Ankle (cm) 33.1 WC - Nurse 2 - General Ulcer CM Notes Start: 12/17/18 13:29 Freq: Status: Active Protocol: Activity Type Activity Date Activity User E-Sign Co-Sign Detail Recorded Client Recorded Date Recorded By Document 12/17/18 14:26 AN [id number] 12/17/18 14:34 AN 12/17/18 14:26 Wound Center Nurse 2 [Procedure/Treatment] #3- L MEDIAL LE -Time 14:32 -Correct Patient Yes -Correct Side, Site, Position Yes -Correct Procedure Yes -Procedure Performed Yes -Type of Procedure Debridement -Clinical Debridement Subcutaneous -Post Debridement Size (cm) - Length 4.5 -Post Debridement Size (cm) - Width 5 -Post Debridement Size (cm) - Depth 0.1 -Total Square Cm 22.5 -Wound/Ulcer Outcome Not Healed -Ulcer Cleansing Rinsed/ Irrigated with Saline -Foul Odor after Cleansing No -Bioengineered Tissue No -Bleeding Controlled with Pressure -Offloading No -Treatment Response Procedure Tolerated Well [See Physician Procedure note for Specifics] Pain Scale: 0-10 Numeric [Pain] -Is Patient Pain Free? Yes Neurological: Neuro grossly intact Psych/Mental Status: Normal Affect, Appropriate, Alert and oriented to time, place, person, mood and affect Debridement Note Post-Debridement Measurements/Treatment WC - Nurse 2 - General Ulcer CM Notes Start: 12/17/18 13:29 Freq: Status: Active Protocol: Activity Type Activity Date Activity User E-Sign Co-Sign Detail Recorded Client Recorded Date Recorded By Document 12/17/18 14:26 AN [id number] 12/17/18 14:34 AN 12/17/18 14:26 Wound Center Nurse 2 #3- L MEDIAL LE -Time 14:32 -Correct Patient Yes -Correct Side, Site, Position Yes -Correct Procedure Yes -Procedure Performed Yes -Type of Procedure Debridement -Clinical Debridement Subcutaneous -Post Debridement Size (cm) - Length 4.5 -Post Debridement Size (cm) - Width 5 -Post Debridement Size (cm) - Depth 0.1 -Total Square Cm 22.5 -Wound/Ulcer Outcome Not Healed -Ulcer Cleansing Rinsed/ Irrigated with Saline -Foul Odor after Cleansing No -Bioengineered Tissue No -Bleeding Controlled with Pressure -Offloading No -Treatment Response Procedure Tolerated Well Pain Scale: 0-10 Numeric Is Patient Pain Free? Yes Wound debrided: Venous leg ulcer left lower extremity Type of Debridement: Excisional debridement Anesthesia Used: 4% Lidocaine Solution Depth: in the subcutaneous layer Percentage of wound debrided: 100 Instrument Used: 5mm curette Tissue Removed: Slough and devitalized tissue Severity: Fat Layer Exposed Amount of bleeding with debridement: Mild Bleeding Controlled with: Pressure Patient tolerated procedure well Assessment/Plan Active Problems Ulcer of left lower extremity with fat layer exposed (Chronic) Venous insufficiency (chronic) (peripheral) (Chronic) Venous stasis dermatitis of both lower extremities (Acute) Assessment: See above diagnoses Plan: The patient was seen and examined at the wound center today and was updated on the plan of care. A subcutaneous debridement was performed today. The patient tolerated the procedure well. The patients wound care will consist of: Application of Aquacel silver and Unna boot which patient has tolerated well in the past, patient to return 4 days for nurse visit and change of Unna boot. Wound cultures were held at this time as wound appears noninfected. Baseline bloodwork reviewed from hospitalization and patient instructed to follow-up with primary care regarding his poorly controlled diabetes as this will help optimize wound healing and regarding his hypothyroidism. Vascular studies held at this time, patient does have a history of venous insufficiency. Patient educated on the importance of diet on wound healing and instructed to increase protein and vitamin C intake. Patient verbalized understanding. Patient will follow up at wound healing center in one week or sooner if needed with provider in 4 days for Unna boot change. This note was generated with [employer] dictation software. It may contain incorrect words, spelling, and punctuation that were not noted in checking the note before signing. Code Visit Office Visits / Consults: [id number] OV L4 Est 111xxx-113xx: [id number] Meli subq tissue 20 sq cm/<
== END 2018-12-20 23:59 ==
LOC: WC 13:18
PROVIDERS: Family Provider Student in an Organized Health Care Education/Training Program; PCP Student in an Organized Health Care Education/Training Program; Visit Provider Nurse Practitioner Family
DX: E11.622 Type 2 diabetes mellitus with other skin ulcer (principal); I87.2 Venous insufficiency (chronic) (peripheral); L97.822 Non-pressure chronic ulcer of other part of left lower leg with fat layer exposed; I10 Essential (primary) hypertension; E03.9 Hypothyroidism, unspecified; E66.01 Morbid (severe) obesity due to excess calories; Z68.43 Body mass index [BMI] 50.0-59.9, adult; Z71.3 Dietary counseling and surveillance; Z79.899 Other long term (current) drug therapy; R60.0 Localized edema; E11.65 Type 2 diabetes mellitus with hyperglycemia; Z85.850 Personal history of malignant neoplasm of thyroid; Z79.82 Long term (current) use of aspirin; Z79.84 Long term (current) use of oral hypoglycemic drugs; Z87.891 Personal history of nicotine dependence
CPT/HCPCS: 11042; 99213; G0463

== ENCOUNTER 2019-01-01 14:45 | Outpatient (RCR) | payer MEDICAID, SELFPAY ==
[2018-12-21 01:10] VITALS: BP 153/93; PULSE 88; RESP 18; TEMP 36.9
[2018-12-21 13:55] VITALS: BP 168/92; PULSE 91; RESP 16; TEMP 37; O2SAT 94; BMI 55.0
[2018-12-25 16:07] VITALS: BP 182/91; PULSE 82; RESP 18; TEMP 36.6; BMI 55.0
--- NOTE | 2018-12-25 18:52 | HP.PCM_ITS ---
(1) Edema of both legs Status: Chronic Current Visit: Yes Code(s): R60.0 - Localized edema (2) Diabetes mellitus Status: Chronic Current Visit: Yes Qualifiers: Diabetes mellitus type: type 2 Diabetes mellitus terminal carman insulin use: unspecified terminal carman insulin use status Diabetes mellitus complication status: with skin complications Diabetes mellitus complication detail: with other skin ulcer Qualified Code(s): E11.622 - Type 2 diabetes mellitus with other skin ulcer; L98.499 - Non-pressure chronic ulcer of skin of other sites with unspecified severity Code(s): E11.9 - Type 2 diabetes mellitus without complications (3) Morbid obesity with BMI of 50.0-59.9, adult Status: Chronic Current Visit: Yes Code(s): E66.01 - Morbid (severe) obesity due to excess calories; Z68.43 - Body mass index (BMI) 50-59.9, adult (4) Poor hygiene Status: Chronic Current Visit: Yes Code(s): R46.0 - Very low level of personal hygiene (5) Ulcer of left lower extremity with fat layer exposed Status: Chronic Current Visit: Yes Code(s): L97.922 - Non-pressure chronic ulcer of unspecified part of left lower leg with fat layer exposed History of Present Illness Date of Service: 12/25/18 Chief Complaint: Chronic swelling and edema of the lower extremities, associated with ulceration to left lower extremity History of Wound: This is a 53-year-old morbidly obese male with multiple medical problems, which include uncontrolled diabetes mellitus, hypertension, hypothyroidism, depression, and a history of thyroid cancer. The patient was recently admitted to [facility] from 12/12/2018 through 12/14/2018 for dyspnea. He was worked up with an echocardiogram and BNP which was normal. He was discharged home and instructed to follow-up with his primary care for management of his diabetes which is poorly controlled. Patient does have a history of noncompliance with medical management. The patient states that he has had the wound to his left lower extremity for approximately 6 months. He tolerated UNNA boot and Aquacel dressing last week. He states that he has a history of chronic lower extremity edema and spends a majority of his time sitting. He does state that there is a small amount of serous drainage coming from the open ulceration. He otherwise denies any fever, chills, nausea, vomiting, worsening shortness of breath, chest pain or pressure, syncope or presyncopal episodes. Past Medical History Past Medical History: Chronic Problems Leg swelling (Chronic) Edema of both legs (Chronic) Dependent edema (Chronic) Diabetes mellitus (Chronic) Morbid obesity with BMI of 50.0-59.9, adult (Chronic) Poor hygiene (Chronic) Hypertension (Chronic) Hypothyroidism (Chronic) Depression (Chronic) Callus of foot (Chronic) Hypertrophic condition of skin (Chronic) History of thyroid cancer (Chronic) Tinea unguium (Chronic) Ulcer of left lower extremity with fat layer exposed (Chronic) Venous insufficiency (chronic) (peripheral) (Chronic) Surgical History: - - Patient has previously undergone partial thyroidectomy. He has also undergone left knee surgery in the past. Allergies/Adverse Reactions: Allergies No Known Allergies Allergy (Verified 12/17/18 13:56) Home Medications: Ambulatory Orders Medication Instructions Recorded Aspirin [Aspir-Low] 81 mg PO DAILY 04/11/17 Levothyroxine [Synthroid] 75 mcg PO DAILY 04/11/17 Atorvastatin Calcium [Lipitor] 10 mg PO QHS #30 tab 12/14/18 Furosemide [Lasix] 40 mg PO DAILY #30 tab 12/14/18 Lisinopril [Zestril] 10 mg PO DAILY #30 tab 12/14/18 Metformin HCl 500 mg PO BID #60 tab 12/14/18 Smz/Tmp Ds [Bactrim Ds] 1 tab PO BID #20 tab 12/14/18 - Family History Paternal - - The patient's father is 78 years of age, with a history of diabetes mellitus, alcoholism, and heart disease. The patient's mother is , having at the age of 73 with a history of cerebrovascular accident. Lives: Alone Smoking Status: Former smoker Tobacco Use: Non-smoker Alcohol: None Drugs: None Review of Systems Constitutional: Denies: Chills, Fever, Weight Change Eyes: Denies: Pain, Vision Change HEENT: Denies: Difficulty Hearing, Difficulty Swallowing, Sinus Congestion Cardiovascular: Denies: Chest Pain, Palpitations Respiratory: Denies: Cough, Shortness of Breath Gastrointestinal: Denies: Diarrhea, Nausea, Vomiting Genitourinary: Denies: Dysuria, Hematuria Skin: Reports: Wounds Psychiatric: Reports: Depression Endocrine: Denies: Heat/ Cold Intolerance, Polydipsia, Polyuria Hematologic/ Lymphatic: Denies: Easy Bruising, Easy Bleeding - Physical Exam Vital Signs Temp Pulse Resp BP Pulse Ox 98 F 82 18 182/91 H 94 12/25/18 16:07 12/25/18 16:07 12/25/18 16:07 12/25/18 16:07 12/21/18 13:55 General: Alert, Oriented x3, Cooperative, No apparent distress HEENT: Atraumatic, Normocephalic Oral: Moist Mucosa Neck: Supple Lungs: Clear to auscultation Cardiovascular: Regular rate, Regular Rhythm Abdomen: Soft Extremities: Edema Skin: Ulcer/ Wound Wound Measurements and Assessment WC - Nurse 1 - General Ulcer Measurement Start: 12/21/18 13:54 Freq: Status: Active Protocol: Activity Type Activity Date Activity User E-Sign Co-Sign Detail Recorded Client Recorded Date Recorded By Document 12/25/18 16:07 RB [id number] 12/25/18 16:11 RB 12/25/18 16:07 Wound Center Nurse 1 [Ulcer Assessment] #3- L MEDIAL LE -Combined with other wound No -Current Size (cm) - Length 2.2 -Current Size (cm) - Width 2.4 -Current Size (cm) - Depth 0.1 -Total Square Cm 5.28 -Tunneling No -Undermining/Tunneling No -Circular Undermining No -Exudate Amt Small -Exudate Type Serosanguineous -Wound Margin Distinct, Outline Attached -Granulation Amt Medium (34-66%) -Granulation [employer] -Slough/Fibrin Yes -Necrosis Amt Small (1-33%) -Necrotic Tissue Type Adherent Slough -Structure Exposed N/A -Texture (Capri-wound Skin Appearance) Assessed -Moisture (Capri-wound Skin Appearance Dry/Scaly ) -Color (Capri-wound Skin Appearance) Hemosiderin Staining -Temperature (Capri-wound Skin No Abnormality Appearance) (Pt Warm) -Tenderness on Palpation (Capri-wound No Skin Appearance) -Ulcer Cleansing Wound Cleanser -Anesthetic Used 5% Lidocaine Gel [Edema Assessment] -Lower Limb Edema Present Yes -Left Calf (cm) 51.5 -Left Ankle (cm) 35.5 WC - Nurse 2 - General Ulcer CM Notes Start: 12/21/18 13:54 Freq: Status: Active Protocol: Activity Type Activity Date Activity User E-Sign Co-Sign Detail Recorded Client Recorded Date Recorded By Document 12/25/18 16:42 DV [id number] 12/25/18 16:47 DV 12/25/18 16:42 Wound Center Nurse 2 [Procedure/Treatment] #3- L [facility] LE -Time 16:45 -Correct Patient Yes -Correct Side, Site, Position Yes -Correct Procedure Yes -Procedure Performed Yes -Type of Procedure Debridement -Clinical Debridement Subcutaneous -Post Debridement Size (cm) - Length 2.0 -Post Debridement Size (cm) - Width 2.5 -Post Debridement Size (cm) - Depth 0.1 -Total Square Cm 5.00 -Wound/Ulcer Outcome Not Healed -Ulcer Cleansing Rinsed/ Irrigated with Saline -Foul Odor after Cleansing No -Bioengineered Tissue No -Bleeding Controlled with Pressure -Treatment Response Procedure Tolerated Well [See Physician Procedure note for Specifics] Pain Scale: 0-10 Numeric [Pain] -Is Patient Pain Free? Yes Psych/Mental Status: Normal Affect, Appropriate Debridement Note Post-Debridement Measurements/Treatment WC - Nurse 2 - General Ulcer CM Notes Start: 12/21/18 13:54 Freq: Status: Active Protocol: Activity Type Activity Date Activity User E-Sign Co-Sign Detail Recorded Client Recorded Date Recorded By Document 12/25/18 16:42 DV [id number] 12/25/18 16:47 DV 12/25/18 16:42 Wound Center Nurse 2 #3- L [facility] LE -Time 16:45 -Correct Patient Yes -Correct Side, Site, Position Yes -Correct Procedure Yes -Procedure Performed Yes -Type of Procedure Debridement -Clinical Debridement Subcutaneous -Post Debridement Size (cm) - Length 2.0 -Post Debridement Size (cm) - Width 2.5 -Post Debridement Size (cm) - Depth 0.1 -Total Square Cm 5.00 -Wound/Ulcer Outcome Not Healed -Ulcer Cleansing Rinsed/ Irrigated with Saline -Foul Odor after Cleansing No -Bioengineered Tissue No -Bleeding Controlled with Pressure -Treatment Response Procedure Tolerated Well Pain Scale: 0-10 Numeric Is Patient Pain Free? Yes Wound debrided: left medial LE Laterality: Left Type of Debridement: Excisional debridement Anesthesia Used: 4% Lidocaine Solution, 5% Lidocaine Gel Depth: Down to and including healthy tissue, in the subcutaneous layer Percentage of wound debrided: 100 Instrument Used: 5mm curette Tissue Removed: yellow slough, devitalized tissue Severity: Fat Layer Exposed Amount of bleeding with debridement: Mild Bleeding Controlled with: Compression and gauze Patient tolerated procedure well Assessment/Plan Active Problems Edema of both legs (Chronic) Diabetes mellitus (Chronic) Morbid obesity with BMI of 50.0-59.9, adult (Chronic) Poor hygiene (Chronic) Ulcer of left lower extremity with fat layer exposed (Chronic) Assessment: See above diagnoses Plan: The patient was seen and examined at the wound center today and was updated on the plan of care. A subcutaneous debridement was performed today. The patient tolerated the procedure well. The patients wound care will consist of: Application of Aquacel silver and Unna boot which patient has tolerated well in the past, patient to return in 1 week for nurse visit and change of Unna boot. Wound cultures were held at this time as wound appears noninfected. Baseline bloodwork reviewed from hospitalization and patient instructed to follow-up with primary care regarding his poorly controlled diabetes as this will help optimize wound healing and regarding his hypothyroidism. Vascular studies held at this time, patient does have a history of venous insufficiency. Patient educated on the importance of diet on wound healing and instructed to increase protein and vitamin C intake. Patient verbalized understanding. Patient will follow up at wound healing center in one week. This note was generated with [employer] dictation software. It may contain incorrect words, spelling, and punctuation that were not noted in checking the note before signing.
[2018-12-29 11:43] VITALS: BP 139/91; PULSE 79; RESP 20; TEMP 36.6; BMI 55.0
[2019-01-01 14:22] VITALS: BP 158/99; PULSE 84; RESP 16; TEMP 35.9; BMI 55.0
--- NOTE | 2019-01-01 18:33 | PCM.WC.PN ---
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: unspecified intermodal owner operator truck driver insulin use status Diabetes mellitus complication status: with skin complications Diabetes mellitus complication detail: with other skin ulcer Qualified Code(s): E11.622 - Type 2 diabetes mellitus with other skin ulcer; L98.499 - Non-pressure chronic ulcer of skin of other sites with unspecified severity Code(s): E11.9 - Type 2 diabetes mellitus without complications (3) Morbid obesity with BMI of 50.0-59.9, adult Status: Chronic Current Visit: Yes Code(s): E66.01 - Morbid (severe) obesity due to excess calories; Z68.43 - Body mass index (BMI) 50-59.9, adult (4) Poor hygiene Status: Chronic Current Visit: Yes Code(s): R46.0 - Very low level of personal hygiene (5) Ulcer of left lower extremity with fat layer exposed Status: Chronic Current Visit: Yes Code(s): L97.922 - Non-pressure chronic ulcer of unspecified part of left lower leg with fat layer exposed Type of Wound Date of Service: 01/01/19 Chief Complaint: Chronic swelling and edema of the lower extremities, associated with ulceration to left lower extremity History of Wound: This is a 53-year-old morbidly obese male with multiple medical problems, which include uncontrolled diabetes mellitus, hypertension, hypothyroidism, depression, and a history of thyroid cancer. The patient was recently admitted to [facility] from 12/12/2018 through 12/14/2018 for dyspnea. He was worked up with an echocardiogram and BNP which was normal. He was discharged home and instructed to follow-up with his primary care for management of his diabetes which is poorly controlled. Patient does have a history of noncompliance with medical management. The patient states that he has had the wound to his left lower extremity for approximately 6 months. He tolerated UNNA boot and Aquacel dressing last week. He states that he has a history of chronic lower extremity edema and spends a majority of his time sitting. He does state that there is a small amount of serous drainage coming from the open ulceration. He otherwise denies any fever, chills, nausea, vomiting, worsening shortness of breath, chest pain or pressure, syncope or presyncopal episodes. Progress of Wound: His ulcers are healed today. - Physical Exam Vital Signs Temp Pulse Resp BP Pulse Ox 96.6 F L 84 16 158/99 H 94 01/01/19 14:22 01/01/19 14:22 01/01/19 14:22 01/01/19 14:22 12/21/18 13:55 General: Alert, Oriented x3, Cooperative, No apparent distress HEENT: Atraumatic, Normocephalic Oral: Moist Mucosa Abdomen: Obese Extremities: Edema Skin: Ulcer/ Wound Wound Measurements and Assessment WC - Nurse 1 - General Ulcer Measurement Start: 12/21/18 13:54 Freq: Status: Active Protocol: Activity Type Activity Date Activity User E-Sign Co-Sign Detail Recorded Client Recorded Date Recorded By Document 01/01/19 14:22 [facility] [id number] 01/01/19 14:32 [facility] 01/01/19 14:22 Wound Center Nurse 1 [Ulcer Assessment] #3- L MEDIAL LE -Combined with other wound No -Current Size (cm) - Length 0.1 -Current Size (cm) - Width 0.1 -Current Size (cm) - Depth 0.1 -Total Square Cm 0.01 -Photo Taken No -Epithelialization Large 67-100% -Tunneling No -Undermining/Tunneling No -Circular Undermining No -Exudate Amt None Present -Texture (Capri-wound Skin Appearance) Assessed, Scarring -Moisture (Capri-wound Skin Appearance Assessed,Dry/ ) Scaly -Color (Capri-wound Skin Appearance) Assessed, Hemosiderin Staining -Temperature (Capri-wound Skin No Abnormality Appearance) (Pt Warm) -Tenderness on Palpation (Capri-wound No Skin Appearance) -Ulcer Cleansing SOAP AND WATER -Foul Odor after Cleansing No -Anesthetic Used 4% Lidocaine Solution [Edema Assessment] -Lower Limb Edema Present Yes -Left Calf (cm) 50.6 -Left Ankle (cm) 32.4 WC - Nurse 2 - General Ulcer CM Notes Start: 12/21/18 13:54 Freq: Status: Active Protocol: Activity Type Activity Date Activity User E-Sign Co-Sign Detail Recorded Client Recorded Date Recorded By Document 01/01/19 15:17 DV [id number] 01/01/19 15:20 DV 01/01/19 15:17 Wound Center Nurse 2 [Procedure/Treatment] #3- L MEDIAL LE -Time 15:19 -Correct Patient Yes -Correct Side, Site, Position Yes -Correct Procedure No -Procedure Performed No -Post Debridement Size (cm) - Length 0 -Post Debridement Size (cm) - Width 0 -Post Debridement Size (cm) - Depth 0 -Total Square Cm 0 -Wound/Ulcer Outcome Healed- Epithelialized [See Physician Procedure note for Specifics] Pain Scale: 0-10 Numeric [Pain] -Is Patient Pain Free? Yes Psych/Mental Status: Normal Affect, Appropriate Debridement Note Post-Debridement Measurements/Treatment WC - Nurse 2 - General Ulcer CM Notes Start: 12/21/18 13:54 Freq: Status: Active Protocol: Activity Type Activity Date Activity User E-Sign Co-Sign Detail Recorded Client Recorded Date Recorded By Document 12/25/18 16:42 DV [id number] 12/25/18 16:47 DV Document 01/01/19 15:17 DV [id number] 01/01/19 15:20 DV 12/25/18 01/01/19 16:42 15:17 Wound Center Nurse 2 #3- L MEDIAL LE -Time 16:45 15:19 -Correct Patient Yes Yes -Correct Side, Site, Position Yes Yes -Correct Procedure Yes No -Procedure Performed Yes No -Type of Procedure Debridement -Clinical Debridement Subcutaneous -Post Debridement Size (cm) - Length 2.0 0 -Post Debridement Size (cm) - Width 2.5 0 -Post Debridement Size (cm) - Depth 0.1 0 -Total Square Cm 5.00 0 -Wound/Ulcer Outcome Not Healed Healed- Epithelialized -Ulcer Cleansing Rinsed/ Irrigated with Saline -Foul Odor after Cleansing No -Bioengineered Tissue No -Bleeding Controlled with Pressure -Treatment Response Procedure Tolerated Well Pain Scale: 0-10 Numeric Is Patient Pain Free? Yes Yes Wound debrided: left medial LE Laterality: Left No debridement was completed today - due to it being healed Assessment/Plan Active Problems Edema of both legs (Chronic) Diabetes mellitus (Chronic) Morbid obesity with BMI of 50.0-59.9, adult (Chronic) Poor hygiene (Chronic) Ulcer of left lower extremity with fat layer exposed (Chronic) Assessment: See above diagnoses Plan: The patient was seen and examined at the wound center today and is healed. He will use spandigrip for compression and was advised to follow up as needed. He will be discharged from treatment at this time.
== END 2019-01-20 23:59 ==
LOC: WC 14:45
PROVIDERS: Family Provider Student in an Organized Health Care Education/Training Program; PCP Student in an Organized Health Care Education/Training Program; Visit Provider Nurse Practitioner Family
DX: E11.622 Type 2 diabetes mellitus with other skin ulcer (principal); R60.0 Localized edema; E66.01 Morbid (severe) obesity due to excess calories; L97.822 Non-pressure chronic ulcer of other part of left lower leg with fat layer exposed; I10 Essential (primary) hypertension; E11.65 Type 2 diabetes mellitus with hyperglycemia; E03.9 Hypothyroidism, unspecified; Z68.43 Body mass index [BMI] 50.0-59.9, adult; Z71.3 Dietary counseling and surveillance; Z85.850 Personal history of malignant neoplasm of thyroid; Z91.19 Patient's noncompliance with other medical treatment and regimen; Z87.891 Personal history of nicotine dependence; I87.2 Venous insufficiency (chronic) (peripheral)
CPT/HCPCS: 11042; 29580; 29581; 99212; 99213; G0463

== ENCOUNTER 2019-02-28 16:00 | Emergency (ER) | payer MEDICAID, SELFPAY ==
[2019-02-28 16:01] VITALS: BP 164/99; PULSE 75; RESP 18; TEMP 36.4; O2SAT 95; BMI 52.5
--- NOTE | 2019-02-28 16:20 | CT_ITS ---
STUDY: CT ABDOMEN AND PELVIS WITHOUT CONTRAST REASON FOR EXAM: Male, 53 years old. Left flank pain and pressure today RADIATION DOSAGE (If Supplied By Facility): CTDIvol = ( 33.96 ) mGy, DLP = ( 2257.51 ) mGycm TECHNIQUE: Transaxial images were obtained from the dome of the diaphragm to the symphysis pubis without oral contrast, and without intravenous contrast. Sagittal and coronal images were reconstructed. Exam is limited due to patient body habitus. Individualized dose optimization techniques were used for this CT. COMPARISON: 10/29/2018 FINDINGS: The visualized lung bases are unremarkable. The visualized portions of the heart are within normal limits. There is decreased attenuation of the liver consistent with steatosis. Normal gallbladder and extrahepatic biliary system. Normal spleen. Normal pancreas. Normal bilateral adrenal glands. Simple cyst of the inferior right kidney is stable. There is small bilateral renal calcifications, similar in size and number since the prior study. No hydronephrosis. There is a 2 mm calcification in the left urinary bladder in the region of the UVJ on image 166 of series 2. Normal visualized stomach. Normal small intestine. Normal colon. There is non-visualization of the appendix. There is diffuse atherosclerotic calcification of the abdominal aorta, without a demonstrated aneurysm. Normal inferior vena cava. Normal retroperitoneum. Nondistended urinary bladder. Normal abdominal wall. There are degenerative changes of the thoracolumbar spine. CT/Abdomen/Pelvis without Cont IMPRESSION: 1. 2 mm calculus in the region of the left UVJ/urinary bladder. No hydronephrosis. 2. Bilateral nephrolithiasis. 3. Hepatic steatosis. Electronically Signed: Иван Michaud MD ([place]) at 17:00 EDT , Service support ,
[2019-02-28] MEDS: Ondansetron 4 MG/2 ML Vial IV (16:33)
[2019-02-28] MEDS: Ketorolac 30 MG/ML Syringe IV (16:33)
[2019-02-28] MEDS: 0.9% Normal Saline 1,000 ML 1000 ML IV (16:33)
[2019-02-28 16:34] LABS: Bacteria 0 SEEN /hpf (None Seen); White Blood Cells 0 SEEN /hpf (0-5)
[2019-02-28 16:38] LABS: Color, Urine Yellow (Yellow); Glucose, Dipstick 50 mg/dl (Normal); Ketone-Dipstick Negative (Negative); Leukocyte Esterase-Dipstick Negative /ul (Negative); Nitrite-Dipstick Negative (Negative); Occult Blood-Urine 250 /ul (Negative); Protein-Dipstick 15 mg/dl (Negative); Specific Gravity, Urine 1.015 (1.002-1.030); Urine Bilirubin Dipstick Negative (Negative); Urine Clarity Clear (Clear); Urine Urobilinogen 4 mg/dl (Normal); Urine pH 6.5 (5.0 - 8.0)
[2019-02-28 16:45] LABS: Red Blood Cells-Urine 10-25 SEEN /hpf (0-5)
[2019-02-28 16:46] LABS: Mucous, Urine 1+ /hpf (<or=2+); Squamous Epithelial Cells - UA 0-5 SEEN /hpf (0-5)
[2019-02-28 16:48] LABS: Absolute Lymphocyte Count 1.35 X10^3/uL (0.83-4.51); Absolute Neutrophil Count 6.4 X10^3/uL (2.0-7.7); Basophil# 0.05 X10^3/uL; Basophil% 0.6 % (0-1); Eosinophils% 2.3 % (0-5); Hematocrit 44.1 % (40-54); Hemoglobin 14.5 g/dL (13.0-16.5); Lymphocyte # 1.35 X10^3/ul (4.0); Lymphocyte % 15.8 % (19-41); Mean Corp Hgb Conc 32.9 g/dL (32-36); Mean Corpuscular Hgb 31.2 pg (27.0-32.0); Mean Corpuscular Volume 94.8 fL (80-94); Mean Platelet Vol. 10.5 fl (6.2-12.0); Monocyte# 0.51 X10^3/uL; NRBC Flagged by Analyzer 0 % (0-5); Neutrophil # 6.39 X10^3/uL (2.7-7.7); Neutrophil % 74.6 % (47-70); Platelet Count 165 K/mm3 (150-450); RBC Distribution Width CV 13.2 % (11.6-14.6); RBC Distribution Width SD 45.9 fl (35.1-43.9); Red Blood Count 4.65 M/mm3 (4.6-6.2); White Blood Count 8.6 K/mm3 (4.4-11.0)
[2019-02-28 17:02] LABS: Anion Gap 5 (5-15); BUN 12 mg/dL (7-18); BUN/Creat Ratio 14.2 RATIO (10-20); Calcium,Total 7.9 mg/dL (8.5-10.1); Chloride 104 mmol/L (98-107); Creatinine, Serum 0.84 mg/dL (0.70-1.30); EST Glomerular Filtration Rate 101 mL/min (>60); Est Glom Filt Rate - Afr Amer 122 mL/min (>60); Glucose 189 mg/dL (74-106); Potassium 3.9 mmol/L (3.5-5.1); Sodium Level 137 mmol/L (136-145)
--- NOTE | 2019-02-28 17:09 | ED.VISSUMM ---
- ER Visit Summary Date of Service: 02/28/19 Chief Complaint: Flank pain History of Present Illness: The patient is a 53 M with left flank pain. He also reports gas. Denies any history of kidney stones. Denies any urinary symptoms. Physical Examination: Left CVA mildly tender. Abdomen nontender. Vital signs unremarkable. Skin normal. Test Results: Blood in his urine. CBC and BMP unremarkable. CT showed a 2 mm left UVJ stone without hydro-. He has fatty liver. Emergency Department Course and Treatment: Patient treated with fluids, Zofran, Toradol. He is appropriate for outpatient care based on his findings and symptoms. He will be treated with pain meds, nausea meds, Flomax. Strain urine. Referred to urology. Treatment Plan: As above Disposition: Discharged Impression: 1. Left ureteral colic This note was generated with [employer] dictation software. It may contain incorrect words, spelling, and punctuation that were not noted in review of the chart prior to signing ED Disposition - Plan for ED Patient: Referrals: Vimal White DO [Primary Care Provider] -
--- NOTE | 2019-02-28 17:10 | ED.DEP ---
ED Disposition - Plan for ED Patient: Instructions: KIDNEY STONE w/ Colic Prescriptions: Tamsulosin HCl [Flomax] 0.4 mg PO DAILY #7 cap Prescription Printed Oxycodone HCl/Acetaminophen [Percocet 5/325] 1 tab PO Q6H PRN PRN 3 Days #12 tab PRN Reason: Pain Prescription Printed Ondansetron [Zofran Odt] 4 mg PO Q8H PRN PRN #10 tab PRN Reason: Nausea Prescription Printed Referrals: Kory Longo MD [STAFF PHYSICIAN] -
[2019-02-28] MEDS: proMETHazine 25 MG/ML Syringe 6.25 MG IV (17:23)
[2019-02-28] MEDS: HYDROcodone Bitartrate/Apap 5/325 Tablet PO (17:23)
[2019-02-28 17:30] VITALS: BP 153/90; PULSE 80; RESP 16
== END 2019-02-28 17:34 | disposition home or self-care (01) ==
LOC: ED 16:24
PROVIDERS: Emergency Provider Emergency Medicine; Family Provider Student in an Organized Health Care Education/Training Program; PCP Student in an Organized Health Care Education/Training Program
DX: N20.1 Calculus of ureter (principal); E11.9 Type 2 diabetes mellitus without complications; I10 Essential (primary) hypertension; Z87.891 Personal history of nicotine dependence; Z79.84 Long term (current) use of oral hypoglycemic drugs; Z79.82 Long term (current) use of aspirin; Z79.899 Other long term (current) drug therapy
CPT/HCPCS: 74176; 80048; 81001; 85025; 96361; 96374; 96375; 99284; J7030; A4216; J2405

== ENCOUNTER 2019-04-20 13:12 | Outpatient (RCR) | payer MEDICAID, SELFPAY ==
--- NOTE | 2019-04-20 13:49 | WC ---
pt to room for new admission . Pt states he saw Brissa SQUADRON WORKER at [facility] last week and hasn't changed dressing since then . He also never filled RX as ordered. Washed pt feet of stool between toes bilat. Pt was foul smelling very poor hygiene . Pt states he is homeless. Pt left lower lateral extremity was wrapped in a adwoa wrap and kerlix when starting to remove dressing maggots and several different bugs came from wound bed . we closed dressing back up and wrapped an adwoa around LLE. covered with chux secured with tape. Charge nurse Ismael notified and instructed pt to go Emergency department at [facility]. Emergency wall mirror department supervisor nurse called with report and p left per own self per his vehicle. assisted to vehicle per .
== END 2019-04-22 23:59 ==
LOC: WC 13:12
PROVIDERS: Family Provider Student in an Organized Health Care Education/Training Program; PCP Student in an Organized Health Care Education/Training Program; Visit Provider Nurse Practitioner Family
DX: Z09 Encounter for follow-up examination after completed treatment for conditions other than malignant neoplasm (principal)

== ENCOUNTER 2019-04-20 14:33 | Inpatient (IN) | payer MEDICAID, SELFPAY ==
[2019-04-20 14:34] VITALS: BP 149/79; PULSE 88; RESP 20; TEMP 36.6; O2SAT 95; BMI 55.5
[2019-04-20 15:15] LABS: Bedside Glucose 389 mg/dL (70-110)
[2019-04-20 15:38] VITALS: BP 137/69; PULSE 89; RESP 18; RESP 19; TEMP 36.6; O2SAT 97
--- NOTE | 2019-04-20 15:50 | ED.VISSUMM ---
- ER Visit Summary Date of Service: 04/20/19 Chief Complaint: Left leg wound History of Present Illness: The patient is a 53 M 3 of diabetes, hypertension, high cholesterol and hypothyroidism. Patient states he had a wound on his left calf for approximately a month. He has been taking care of by the wound care center. The centimeter for evaluation today. He said it is red and warm. It also smells. Has had some drainage. Physical Examination: Middle-aged male no acute distress vital signs are stable and afebrile. He does not look septic or toxic.H EENT exam poor dentition. Neck nontender. Lungs clear to auscultation bilaterally. Heart regular rhythm no murmur. Abdomen morbidly obese but soft. Nontender normal bowel sounds no peritoneal signs. Patient is moving all 4 extremities. He is chronic venous stasis changes to both lower extremities and the skin. On the left calf is red mildly tender and warm to touch. There is a very foul odor from the skin but currently no pus. Both feet are motor intact with normal dorsi and plantar flexion. Decreased mental status neurologically is awake alert with no focal motor deficits. Test Results: BC white count is 9. Hemoglobin 14. Chemistries unremarkable sodium 132. Gap is 6. BUN 9 creatinine of 1. Blood sugars elevated. Emergency Department Course and Treatment: Concerned that the patient's left leg is cellulitis. Started on IV antibiotics both Zosyn and vancomycin. Treatment Plan: Hospitalist on page for admission Disposition: Admission Impression: Acute left calf cellulitis Diabetic lower extremity Infection Hyperglycemia with a history of diabetes This note was generated with [employer] dictation software. It may contain incorrect words, spelling, and punctuation that were not noted in review of the chart prior to signing ED Disposition - Plan for ED Patient: Referrals: Vimal White DO [Primary Care Provider] -
[2019-04-20 16:20] VITALS: BP 150/94; PULSE 87; RESP 18; TEMP 37.1; O2SAT 98
[2019-04-20 16:26] LABS: Anion Gap 6 (5-15); BUN 9 mg/dL (7-18); Calcium,Total 8.5 mg/dL (8.5-10.1); Chloride 92 mmol/L (98-107); EST Glomerular Filtration Rate 83 mL/min (>60); Est Glom Filt Rate - Afr Amer 101 mL/min (>60); Estimated Creatinine Clearance 85.43 ml/min; Glucose 349 mg/dL (74-106); Potassium 3.9 mmol/L (3.5-5.1); Sodium Level 132 mmol/L (136-145)
[2019-04-20 16:27] LABS: Absolute Lymphocyte Count 1.57 X10^3/uL (0.83-4.51); Absolute Neutrophil Count 6.8 X10^3/uL (2.0-7.7); Basophil# 0.06 X10^3/uL; Basophil% 0.7 % (0-1); Eosinophil# 0.25 X10^3/uL; Eosinophils% 2.7 % (0-5); Hemoglobin 14.7 g/dL (13.0-16.5); Lymphocyte # 1.57 X10^3/ul (4.0); Lymphocyte % 17.2 % (19-41); Mean Corp Hgb Conc 32.7 g/dL (32-36); Mean Corpuscular Volume 94.9 fL (80-94); Mean Platelet Vol. 10.3 fl (6.2-12.0); Monocyte# 0.38 X10^3/uL; Monocyte% 4.2 % (0-10); NRBC Flagged by Analyzer 0 % (0-5); Neutrophil # 6.82 X10^3/uL (2.7-7.7); Neutrophil % 74.7 % (47-70); Platelet Count 175 K/mm3 (150-450); RBC Distribution Width CV 13.5 % (11.6-14.6); RBC Distribution Width SD 47.4 fl (35.1-43.9); Red Blood Count 4.74 M/mm3 (4.6-6.2); White Blood Count 9.1 K/mm3 (4.4-11.0)
[2019-04-20 17:36] VITALS: BP 158/96; PULSE 90; RESP 18; TEMP 37.1; O2SAT 96
[2019-04-20] MEDS: 0.9% Normal Saline 1,000 ML 999 ML IV (17:36)
--- NOTE | 2019-04-20 17:39 | HP.PCM_ITS ---
Problem List (1) Cellulitis of left lower extremity Status: Acute History of Present Illness Date of Admission: 04/20/19 Chief Complaint: left leg wound The patient is a 53 year old M sent over from the wound care center for nonhealing left lower extremity wound. Patient has had this wound for sometimes been cared for by the wound center. Today, the patient presented to the wound clinic and it was red, warm and malodorous with drainage. Sent to the emergency room. In the emergency room, the patient's work-up was unremarkable with lab work. Patient received Pipracil and/tazobactam and vancomycin. Patient was also noted to have maggots coming out of the wound as well. Patient really denies any complaints other than the odor. Has no fever but states that he did feel slightly chilled. Patient is a diabetic and states that he has not checked his blood sugar in sometime. When asked to clarify what sometimes is, he said it was about 6 months. [] Past Medical History Past Medical History (Chronic Problems): Chronic Problems Leg swelling (Chronic) Edema of both legs (Chronic) Dependent edema (Chronic) Diabetes mellitus (Chronic) Morbid obesity with BMI of 50.0-59.9, adult (Chronic) Poor hygiene (Chronic) Hypertension (Chronic) Hypothyroidism (Chronic) Depression (Chronic) Callus of foot (Chronic) Hypertrophic condition of skin (Chronic) History of thyroid cancer (Chronic) Tinea unguium (Chronic) Ulcer of left lower extremity with fat layer exposed (Chronic) Venous insufficiency (chronic) (peripheral) (Chronic) Allergies No Known Allergies Allergy (Verified 04/20/19 14:41) Home Medications: Ambulatory Orders Medication Instructions Recorded Levothyroxine [Synthroid] 75 mcg PO DAILY 04/11/17 Lisinopril [Zestril] 10 mg PO DAILY #30 tab 12/14/18 Metformin HCl 500 mg PO BID #60 tab 12/14/18 Tamsulosin HCl [Flomax] 0.4 mg PO DAILY #7 cap 02/28/19 Surgical History: - - Patient has previously undergone partial thyroidectomy. He has also undergone left knee surgery in the past. Smoking Status: Former smoker Tobacco Use: Non-smoker Alcohol: Rare - *Family History Paternal History Items: - - The patient's father is 78 years of age, with a history of diabetes mellitus, alcoholism, and heart disease. The patient's mother is , having at the age of 73 with a history of cerebrovascular accident. Review of Systems Constitutional: Reports: Chills. Denies: Anorexia, Fever Eyes: Denies: Blurred vision, Double vision HEENT: Denies: Head Aches, Sinus Congestion, Sinus Drainage Cardiovascular: Denies: Chest Pain, Palpitations Respiratory: Denies: Cough, Shortness of breath at rest, Sputum production Gastrointestinal: Reports: Abdominal Pain - Left upper quadrant. Denies: Diarrhea, Nausea, Vomiting Genitourinary: Denies: Dysuria, Frequency Musculoskeletal: Denies: Joint Pain, Joint Tenderness Skin: Reports: - - Left leg wound. Neurological: Denies: Numbness, Tingling, Focal weakness Psychiatric: Denies: Anxiety, Depression Endocrine: Denies: Change in Body Habitus, Heat/ Cold Intolerance Hematologic/ Lymphatic: Denies: Easy Bruising, Easy Bleeding, Hx of blood clot Comment: All review systems are otherwise negative except for as mentioned above and in HPI. VTE Information - Inpt Only VTE Present on Admission: No VTE Mechan Device Prophylaxis: None Patient Problems: Active and Suspected Problems Cellulitis of left lower extremity (Acute) - Physical Exam Vitals/I&O's: Vital Signs Temp Pulse Resp BP Pulse Ox 37.1 C 90 18 158/96 H 96 04/20/19 17:36 04/20/19 17:36 04/20/19 17:36 04/20/19 17:36 04/20/19 17:36 Oxygen Delivery Method Room Air Weight: 170.8 kg Body Mass Index (BMI) 55.5 Finger Stick Blood Glucose 389 General: Alert, No apparent distress, - - Disheveled HEENT: Atraumatic, Normocephalic, - - No icterus Oral: Moist Mucosa, - - Poor dentition Neck: No Nodes, Thyroid Normal Size and Texture Lungs: Clear to auscultation, Normal air movement, No rhonchi, No wheeze, No rales Cardiovascular: Regular rate, Regular Rhythm, Normal S1, Normal S2, No murmurs Abdomen: Bowel Sounds Present, Soft, Non Tender, Non-Distended, Obese Extremities: No Calf Tenderness, Edema Skin: - - Acanthosis nigricans around the nape of his neck. Venous stasis dermatitis changes to the right lower extremity. Patient also has venous stasis dermatitis on the left anterior franklin but also a very macerated large lesion in the posterior aspect of his left leg which is able to express some maggot out of. Very malodorous with some serous drainage appreciated no purulence that I can see. Musculoskeletal: No Tenderness to Palpation of Joints or Extremities, No Muscle Wasting Neurological: Coordination normal, - - No clonus Psych/Mental Status: Normal Affect, Appropriate Laboratory Results 04/20/19 14:57: POC Glucose 389 H 04/20/19 15:20: WBC Cancelled, Corrected WBC Cancelled, RBC Cancelled, Hgb Cancelled, Hct Cancelled, MCV Cancelled, MCH Cancelled, MCHC Cancelled, RDW Std Deviation Cancelled, RDW Coeff of Jovany Cancelled, Plt Count Cancelled, MPV Cancelled, Immature Gran % (Auto) Cancelled, Neut % (Auto) Cancelled, Lymph % (Auto) Cancelled, Bacon % (Auto) Cancelled, Eos % (Auto) Cancelled, Baso % (Auto) Cancelled, Absolute Neuts (auto) Cancelled, Absolute Lymphs (auto) Cancelled, Total Counted Cancelled, Neutrophils % (Manual) Cancelled, Band Neutrophils % Cancelled, Lymphocytes % (Manual) Cancelled, Monocytes % (Manual) Cancelled, Eosinophils % (Manual) Cancelled, Basophils % (Manual) Cancelled, Metamyelocytes % Cancelled, Myelocytes % Cancelled, Promyelocytes % Cancelled, Blast Cells % Cancelled, Plasma Cell % (Manual) Cancelled, Other Cells % Cancelled, Nucleated RBC % Cancelled, Nucleated RBCs/100 WBC Cancelled, Differential Comment Cancelled, Diff Path Review Cancelled, Hypersegmented Neuts Cancelled, Atypical Lymphocytes Cancelled, Reactive Lymphocytes Cancelled, Smudge Cells Cancelled, Toxic Granulation Cancelled, Toxic Vacuolation Cancelled, Dohle Bodies Cancelled, Kanwal Rods Cancelled, Platelet Estimate Cancelled, Plt Morphology Comment Cancelled, RBC Morphology Cancelled, Polychromasia Cancelled, Hypochromasia Cancelled, Poikilocytosis Cancelled, Basophilic Stippling Cancelled, Anisocytosis Cancelled, Microcytosis Cancelled, Macrocytosis Cancelled, Spherocytes Cancelled, Sickle Cells Cancelled, Target Cells Cancelled, Tear Drop Cells Cancelled, Ovalocytes Cancelled, Stomatocytes Cancelled, De Oliveira-Storrs Bodies Cancelled, [place] Cells Cancelled, Bite Cells Cancelled, Crenated Cell Cancelled, Acanthocytes (Spur) Cancelled, Rouleaux Cancelled, Schistocytes Cancelled 04/20/19 15:20: Sodium Cancelled, Potassium Cancelled, Chloride Cancelled, Carbon Dioxide Cancelled, Anion Gap Cancelled, BUN Cancelled, Creatinine Cancelled, Estim Creat Clear Calc Cancelled, Est GFR (MDRD) Af Amer Cancelled, Est GFR (MDRD) Non-Af Cancelled, BUN/Creatinine Ratio Cancelled, Glucose Cancelled, Calcium Cancelled 04/20/19 15:58: Sodium 132 L, Potassium 3.9, Chloride 92 L, Carbon Dioxide 34.0 H, Anion Gap 6, BUN 9, Creatinine 1.00, Estim Creat Clear Calc 85.43, Est GFR (MDRD) Af Amer 101, Est GFR (MDRD) Non-Af 83, BUN/Creatinine Ratio 9.0 L, Glucose 349 H, Calcium 8.5 04/20/19 15:58: WBC 9.1, RBC 4.74, Hgb 14.7, Hct 45.0, MCV 94.9 H, MCH 31.0, MCHC 32.7, RDW Std Deviation 47.4 H, RDW Coeff of Jovany 13.5, Plt Count 175, MPV 10.3, Immature Gran % (Auto) 0.500, Neut % (Auto) 74.7 H, Lymph % (Auto) 17.2 L, Bacon % (Auto) 4.2, Eos % (Auto) 2.7, Baso % (Auto) 0.7, Absolute Neuts (auto) 6.8, Absolute Lymphs (auto) 1.57, Nucleated RBC % 0 Current Medications Vancomycin HCl 2,000 mg/ (Sodium Chloride) 540 mls @ 250 mls/hr IV X1 ONE Stop: 04/20/19 19:39 Sodium Chloride () 1,000 mls @ 999 mls/hr IV .Q1H1M ONE Stop: 04/20/19 18:14 Last Admin: 04/20/19 17:36 Dose: 999 mls/hr Documented by: Sodium Chloride () 10 - 40 ml IV UD PRN PRN Reason: SALINE FLUSH Assessment/Plan All Active Problems Acute respiratory insufficiency (Acute) Possible pneumonia (Acute) Venous stasis dermatitis of both lower extremities (Acute) Cellulitis of left lower extremity (Acute) 1. Left lower extremity cellulitis/diabetic leg wound * Given the location I imagine it may be some maceration due to pressure., Try to offload pressure as much as possible. * Patient received Pipracil and/tazobactam and vancomycin in the emergency room. I will continue with vancomycin given the ongoing drainage though not seeing any obvious purulence but also add ampicillin/sulbactam * Check a wound culture as well as wound MRSA * Check a CT scan of his leg. Given the patient's body habitus, I do not feel that he would fit into an MRI machine * Will consult plastic surgery for evaluation and potential debridement. Before any kind of surgery goes underway patient will need ankle-brachial index which I have ordered as well. 2. Diabetes mellitus type 2 * Uncontrolled and elevated * I suspect that the patient is chronically elevated as he states that he has not checked his blood sugar in 6 months * Patient has signs of just chronic uncontrolled diabetes with acanthosis * Patient be on a sliding scale insulin for now but imagine the patient would require some basal and prandial insulin tubing and how his blood sugars performed. I would prefer to wait before initiating insulin to know what his blood sugars are on other checks during his hospitalization * Check an A1c 3. Hypertension * Fair control * Continue with lisinopril 4. Hypothyroidism * Continue with levothyroxine * Check TSH 5. VTE prophylaxis: Moderate risk. Low molecular weight heparin Code Visit Inpatient E&M: 97060 Init Hosp L3
[2019-04-20 18:13] VITALS: BP 163/100; PULSE 86; RESP 18; TEMP 36.6; O2SAT 95
[2019-04-20 18:15] VITALS: BMI 54.5
[2019-04-20 18:20] VITALS: BMI 54.5
--- NOTE | 2019-04-20 19:14 | CT_ITS ---
Comparison: None available. TECHNIQUE: Multiple CT images were obtained of the left leg without IV contrast. Reconstructions were performed. FINDINGS: There is no fracture or dislocation. There are no aggressive appearing osseous lesions or erosions. There is prominent diffuse soft tissue swelling. There is no discrete loculated fluid collection. No foreign body is present. CT/Extremity Lower WITH Contrast IMPRESSION: No fracture or dislocation. Diffuse prominent soft tissue swelling without discrete loculated fluid collection. Pending Final Proof Editing
--- NOTE | 2019-04-20 19:14 | ART_ITS ---
Reason For Study: LLE Cellulitis/Infected left leg wound Procedure A bilateral lower extremity continuous wave Doppler with analog waveform analysis and ankle brachial indexes. Left Segmental Pressures Left brachial= 137mmHg. Left posterior tibial artery = 179mmHg. Left dorsalis pedis artery = 174mmHg. Left digit = 109 mmHg. The left dorsalis pedis waveforms are triphasic. The left posterior tibial artery waveforms are triphasic. Right Segmental Pressures Right brachial= 140mmHg. Right posterior tibial artery = 177mmHg. Right dorsalis pedis artery = 155mmHg. Right digit = 117 mmHg. The right dorsalis pedis waveforms are triphasic. The right posterior tibial artery waveforms are triphasic. Indices The right ankle brachial index by the dorsalis pedis is 1.11. The right ankle brachial index by the posterior tibial artery is 1.26. The right digital-brachial index is 0.84. The left ankle brachial index by the dorsalis pedis is 1.24. The left ankle brachial index by the posterior tibial artery is 1.28. The left digital-brachial index is 0.78. Interpretation Summary Triphasic Doppler waveforms are noted at ankle level bilaterally. Pulse-volume recordings appear satisfactory at ankle and digital level bilaterally. Resting ankle-brachial indices are normal bilaterally. Digital-brachial indices are normal bilaterally. There is no evidence of significant arterial occlusive disease in the lower extremities bilaterally. Ordering Physician: Alex Mayen Referring Physician: Vimal Hyman Performed By: Christine Hodgson RVT
--- NOTE | 2019-04-20 19:35 | PCM.RX.CS ---
Consult Pharmacy has been consulted to manage selected antiobiotic: Vancomycin Type of Consult: New start Suspected Infection: Skin/Soft tissue Prior Doses of Antibiotics Received/Current Regimen: Received 2000mg IV x1 in E.R. tonight starting at 18:40 Labs: Sodium 132 mmol/L (136-145) L 04/20/19 15:58 Potassium 3.9 mmol/L (3.5-5.1) 04/20/19 15:58 Chloride 92 mmol/L (98-107) L 04/20/19 15:58 Carbon Dioxide 34.0 mmol/L (21.0-32.0) H 04/20/19 15:58 Anion Gap 6 (5-15) 04/20/19 15:58 BUN 9 mg/dL (7-18) 04/20/19 15:58 Creatinine 1.00 mg/dL (0.70-1.30) 04/20/19 15:58 Est GFR (MDRD) Af Amer 101 mL/min (>60) 04/20/19 15:58 Est GFR (MDRD) Non-Af 83 mL/min (>60) 04/20/19 15:58 BUN/Creatinine Ratio 9.0 RATIO (10-20) L 04/20/19 15:58 Glucose 349 mg/dL (74-106) H 04/20/19 15:58 Weight used for dosin.5 kg Estimated Creatinine Clearance: 132ml/min Goal Trough: 10-15 mcg/mL Pharmacy Plan for Drug Dosing: After initial dose in E.R. as noted above, will continue with 1750mg IV q12h to start tomorrow morning. A trough will be drawn before the 4th total dose. The patient's CrCl of 132 ml/min was calculated using an adjusted body weight of 109.4 kg since the patient's actual weight is more then 120% over ideal body weight. Pharmacy Service will continue to monitor and adjust dosing as required. Follow-Up Labs: Trough Vancomycin Labs to be done on [date and time ordered]: 04/22/19 06:30
[2019-04-20 23:18] LABS: M R Staph aureus DNA By PCR Negative (Negative); Probe Check PASS; Specimen Processing Control PASS; Staph aureus DNA By PCR NEGATIVE (Negative)
[2019-04-20 23:31] LABS: Bedside Glucose 240 mg/dL (70-110)
[2019-04-21] MEDS: Insulin Lispro 100 UNIT/ML INSULN.PEN SC ×5 (00:22→22:33)
[2019-04-21 00:30] VITALS: BP 135/66; PULSE 86; RESP 18; TEMP 37; O2SAT 94
[2019-04-21 05:43] LABS: Absolute Lymphocyte Count 1.58 X10^3/uL (0.83-4.51); Absolute Neutrophil Count 7.1 X10^3/uL (2.0-7.7); Basophil# 0.06 X10^3/uL; Basophil% 0.6 % (0-1); Eosinophil# 0.27 X10^3/uL; Eosinophils% 2.8 % (0-5); Hematocrit 41.4 % (40-54); Hemoglobin 13.4 g/dL (13.0-16.5); Lymphocyte # 1.58 X10^3/ul (4.0); Lymphocyte % 16.5 % (19-41); Mean Corp Hgb Conc 32.4 g/dL (32-36); Mean Corpuscular Hgb 31.1 pg (27.0-32.0); Mean Corpuscular Volume 96.1 fL (80-94); Mean Platelet Vol. 9.9 fl (6.2-12.0); Monocyte# 0.49 X10^3/uL; Monocyte% 5.1 % (0-10); NRBC Flagged by Analyzer 0 % (0-5); Neutrophil # 7.11 X10^3/uL (2.7-7.7); Neutrophil % 74.5 % (47-70); Platelet Count 174 K/mm3 (150-450); RBC Distribution Width CV 13.6 % (11.6-14.6); RBC Distribution Width SD 48.3 fl (35.1-43.9); Red Blood Count 4.31 M/mm3 (4.6-6.2); White Blood Count 9.6 K/mm3 (4.4-11.0)
[2019-04-21] MEDS: Levothyroxine 75 MCG Tablet PO (06:11)
[2019-04-21 06:19] LABS: ALB/GLOB Ratio 0.8 RATIO (0.9-2.4); AST(SGOT) 27 U/L (15-37); Alanine Aminotransfer ALT/SGPT 30 U/L (16-61); Alkaline Phosphatase 104 U/L (45-117); Anion Gap 6 (5-15); BUN 8 mg/dL (7-18); BUN/Creat Ratio 9.9 RATIO (10-20); Calcium,Total 7.7 mg/dL (8.5-10.1); Chloride 96 mmol/L (98-107); Creatinine, Serum 0.81 mg/dL (0.70-1.30); EST Glomerular Filtration Rate 106 mL/min (>60); Est Glom Filt Rate - Afr Amer 128 mL/min (>60); Estimated Creatinine Clearance 105.47 ml/min; Glucose 233 mg/dL (74-106); Sodium Level 132 mmol/L (136-145)
[2019-04-21 06:42] VITALS: BP 119/67; PULSE 79; RESP 18; TEMP 36.8; O2SAT 92
[2019-04-21 07:06] LABS: Bedside Glucose 229 mg/dL (70-110)
[2019-04-21 07:56] LABS: Hemoglobin A1c 9.5 % (4.2-6.3)
--- NOTE | 2019-04-21 08:42 | NURSING ---
skin photo: left lower leg
--- NOTE | 2019-04-21 08:44 | NURSING ---
wound photo: left posterior lower leg
[2019-04-21] MEDS: Glucerna Shake 120 ML LIQUID PO ×3 (09:07→16:16)
[2019-04-21] MEDS: Lisinopril 10 MG Tablet PO (09:08)
[2019-04-21] MEDS: metFORMIN HCl 500 MG Tablet PO ×2 (09:08→16:16)
[2019-04-21] MEDS: Enoxaparin 40 MG/0.4 ML Syringe SC (09:08)
[2019-04-21 09:10] VITALS: BP 146/80; PULSE 81; RESP 16; TEMP 36.7; O2SAT 94
[2019-04-21 11:35] LABS: Bedside Glucose 257 mg/dL (70-110)
--- NOTE | 2019-04-21 12:10 | CASEMGMT ---
Addendum entered by Dolly Astudillo 04/21/19 13:39: Pt states he does not have a Stained Glass Installer through [facility], but he is interested in having one. Call placed to [facility]. Pt then got on the phone and spoke with a [facility] hospital insurance representative to get established with a Stained Glass Installer at this time. Addendum entered by Dolly Astudillo 04/21/19 13:36: If pt does not go to a SNF @ discharge, will need a glucometer. Original Note: RN CM ERP MANAGER CM to room to meet with patient for initial transition planning/care coordination assessment. RN CM introduced self and role at [facility]. Pt voices understanding and consents to assessment at this time. Pt resting in bed in no distress at this time. Pt is A/O at this time and answers all questions appropriately. Care providers, pharmacy, and demographics verified/updated at this time. He states the address listed on the demographics is his daughter's address where he receives his mail, but he is living with his grandson and grandson's orquidea and that address is: [address] [place] [address] [address] [place], [place] PCP: [facility]: Wound Center, Also, states someone is supposed to be sending me information about making an appt with the lung doctor--Dr Bustillo I think. Preferred Pharmacy: [facility] Insurance: [facility] Prescription Benefit: Yes Living Will/HPOA: does not have LW or HCPOA . Interested in more information and would like to talk with SW to complete paperwork. Given info packet on AD and Analysis Director Rac Card. LNOK: Daughter, Nikunj Naranjo Living Arrangements: stays in a room in trailer with his grandson and grandsons orquidea. He states they both work full-time and are not home often. He states he takes care of his own meals, finances, and meds/appts. He states it is difficult to bathe himself d/t can't bend over. States he showers when I'm able to. Stressors/barrriers: just recently (December 2018) and that he has not checked his blood sugar levels for many months d/t depression. He states he has limited income. He states he just recently filed for disability. Transportation: Pt states drives self and states no transportation concerns at this time. States is aware of [facility] Van transportation because. Made aware of [facility] free transportation assistance as well, if in the future he needs assistance with transportation. DME: Has only DME is a hand-held shower. States does not have a glucometer and would like one. Denies need for further DME at this time. HHC/SNF: States no history of HHC or SNF. States is interested in going to a SNF @ discharge. Also states has been interested in going to an Assisted Living facility long-term. Discussed options of HHC and CCN at this time. Pt declines both, stating he does not want anyone coming into the home. Pt states, The home ain't the best right now. SW/CM to follow for further discharge planning/needs. Advised pt to ask for CM if any further questions/concerns/needs arise. Voices understanding. PLAN: TBD. Is interested in going to a SNF @ discharge. SW referral for depression/loss of spouse recently, limited support, limited income, AD, interested in information re: Assisted Living, and SNF. Jyoti RHODESN RN CM
--- NOTE | 2019-04-21 12:52 | CASEMGMT ---
SW received referral from CM for pt for: follow up w/pulmonology, possible SNF placement, waiver application, LW/POA forms, counseling. NORMA called Dr. Bustillo/Josr's office. They do not have a referral, pt can call himself to make an appt and they will reach out to pt's PCP, w/pt's permission, for records. SW spoke w/pt in room. SW inquired initially about appt w/pulmonology. Pt explained he applied for disability and they are to make referral, they want pt to see pulmonology. SW explained that pt can also call to make appt and they will follow up w/his PCP, w/his permission, for records, then set up appt. Pt states understanding. NORMA asked pt about going to SNF. Pt may be agreeable to this, depending on what his needs are. He has difficulty attending to his wound care. SW gave pt a list of nursing homes that take his insurance. Pt states his was at [facility] but he did not particularly like this facility. NORMA explained we can see the plan w/Dr. Morris, and see if he will qualify for jail. SW provided a list of nursing homes that take pt's insurance. SW asked pt to choose a couple of facilities, explained not all the facilities can accommodate him due to his weight. Pt may be interested in [facility]. NORMA explained we can follow up w/him on this tomorrow. NORMA also spoke w/pt about waiver, as he had mentioned to CM interested in assisted living. NORMA explained that the first step will be to complete the waiver application. Once his phone is more charged he will be able to look up phone numbers on the phone so the application can be completed. NORMA explained we can return tomorrow to attain the rest of this demographic information, complete the form and have him sign it, and mail it. Pt agreeable to completed the form tomorrow. NORMA gave pt copies of LW/POA, ELOISE had already given pt the rack card. NORMA explained to pt when he is ready to call the dept and he can make an appointment to complete the forms. Pt states understanding. NORMA also asked pt about mental health. Pt reports lost his recently. He was interested in starting counseling but has not been able to do so due to not feeling well. SW gave pt information on counseling options in the area. Pt's was on hospice. SW let pt know that they offer bereavement services. Pt was aware of this. SW added [facility] to list of counseling agencies and encouraged pt to follow up. SW will continue to follow, will assist in completing waiver application and will make referral to pt's jail of choice should this level of care be needed. SANJIV Veronica
--- NOTE | 2019-04-21 14:32 | PCM.CONS.GEN ---
Reason for Consult Date of Consultation: 04/21/19 Reason for Consultation: Macerated infected diabetic ulcer left posterior leg. REFERRING PHYSICIAN: Dr. Mayen. LADIES' HAT TRIMMER: Dr. Morris. History of Present Illness: The patient is a 53 year old M was admitted yesterday after coming over from the wound care center for nonhealing left lower extremity wound. The wound was red, warm and malodorous with drainage and had the presence of maggots. In the emergency room, the WBC was normal at 9.1. His HgbA1c was 9.5. He was admitted and started on Vancomycin and Unasyn. CT scan showed No fracture or dislocation. Diffuse prominent soft tissue swelling without discrete loculated fluid collection. I was asked to evaluate this patient for surgical options for treatment. 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) Leg swelling (Chronic) Edema of both legs (Chronic) Dependent edema (Chronic) Diabetes mellitus (Chronic) Morbid obesity with BMI of 50.0-59.9, adult (Chronic) Poor hygiene (Chronic) Hypertension (Chronic) Hypothyroidism (Chronic) Depression (Chronic) Callus of foot (Chronic) Hypertrophic condition of skin (Chronic) History of thyroid cancer (Chronic) Tinea unguium (Chronic) Ulcer of left lower extremity with fat layer exposed (Chronic) Venous insufficiency (chronic) (peripheral) (Chronic) Venous stasis dermatitis of both lower extremities (Chronic) Allergies No Known Allergies Allergy (Verified 04/20/19 14:41) Current Medications Acetaminophen (Tylenol) 650 mg PO Q6H PRN PRN PRN Reason: Pain Score 1-3/Temp > 100.7 F Dextrose (D50w Syringe) 0 gm IV X1 PRN; Protocol PRN Reason: Hypoglycemia Enoxaparin Sodium (Lovenox) 40 mg SC DAILY@1000 [facility] Last Admin: 04/21/19 09:08 Dose: 40 mg Documented by: Glucagon () 1 mg IM .X1 PRN PRN Reason: Hypoglycemia Ampicillin Sodium/Sulbactam (Sodium 3 gm/ Sodium Chloride) 112 mls @ 150 mls/hr IV Q6 [facility] Last Infusion: 04/21/19 12:11 Dose: Infused Documented by: Vancomycin IV Pharmacy to Dose (1 ea/ Sodium Chloride) 500 mls @ 250 mls/hr IV X1 PRN; Protocol PRN Reason: Rx to Dose Vancomycin HCl 1,750 mg/ (Sodium Chloride) 535 mls @ 250 mls/hr IV Q12H [facility] Last Infusion: 04/21/19 09:17 Dose: Infused Documented by: Insulin Human Lispro (Humalog Kwikpen (Bkc)) 0 unit SC ACHS [facility]; Protocol Last Admin: 04/21/19 11:24 Dose: 3 u Documented by: Levothyroxine Sodium (Synthroid) 75 mcg PO DAILY@0600 [facility] Last Admin: 04/21/19 06:11 Dose: 75 mcg Documented by: Lisinopril (Zestril) 10 mg PO DAILY [facility] Last Admin: 04/21/19 09:08 Dose: 10 mg Documented by: Melatonin (Melatonin) 3 mg PO QHS PRN PRN PRN Reason: INSOMNIA Metformin HCl (Glucophage) 500 mg PO BIDCM [facility] Last Admin: 04/21/19 09:08 Dose: 500 mg Documented by: Nutritional Formula (Lactose Free) (Glucerna Shake) 120 ml PO TIDCM [facility] Last Admin: 04/21/19 11:26 Dose: 120 ml Documented by: Nystatin (Mycostatin Powder) 1 applic TOPICAL TID [facility]; Protocol Ondansetron HCl (Zofran) 4 mg IV Q8H PRN PRN PRN Reason: NAUSEA/VOMITING Oxycodone HCl (Oxyir) 5 mg PO Q4H PRN PRN PRN Reason: Pain Score 4-10/10 Senna/Docusate Sodium (Senokot-S, Capri-Colace) 2 tablet PO BID PRN PRN PRN Reason: Constipation Sodium Chloride () 10 - 40 ml IV UD PRN PRN Reason: SALINE FLUSH Tamsulosin HCl (Flomax) 0.4 mg PO DAILY@1730 [facility] Home Medications: Ambulatory Orders Medication Instructions Recorded Levothyroxine [Synthroid] 75 mcg PO DAILY 04/11/17 Lisinopril [Zestril] 10 mg PO DAILY #30 tab 12/14/18 Metformin HCl 500 mg PO BID #60 tab 12/14/18 Tamsulosin HCl [Flomax] 0.4 mg PO DAILY #7 cap 02/28/19 Surgical History: - - Patient has previously undergone partial thyroidectomy. He has also undergone left knee surgery in the past. Smoking Status: Former smoker Tobacco Use: Cigarettes, Cigars, Chew, Pipe Alcohol: Rare - *Family History Paternal History Items: - - The patient's father is 78 years of age, with a history of diabetes mellitus, alcoholism, and heart disease. The patient's mother is , having at the age of 73 with a history of cerebrovascular accident. Review of Systems Comment: Constitutional: Reports: Chills. Denies: Anorexia, Fever. Eyes: Denies: Blurred vision, Double vision. HEENT: Denies: Head Aches, Sinus Congestion, Sinus Drainage. Cardiovascular: Denies: Chest Pain, Palpitations. Respiratory: Denies: Cough, Shortness of breath at rest, Sputum production. Gastrointestinal: Reports: Abdominal Pain - Left upper quadrant. Denies: Diarrhea, Nausea, Vomiting. Genitourinary: Denies: Dysuria, Frequency. Musculoskeletal: Denies: Joint Pain, Joint Tenderness. Skin: Reports: - - Left leg wound. Neurological: Denies: Numbness, Tingling, Focal weakness. Psychiatric: Denies: Anxiety, Depression. Endocrine: Denies: Change in Body Habitus, Heat/ Cold Intolerance. Hematologic/ Lymphatic: Denies: Easy Bruising, Easy Bleeding, Hx of blood clot Patient Problems: Active and Suspected Problems Cellulitis of left lower extremity (Acute) - Physical Exam Vitals/I&O's: General: Alert, No apparent distress, - - Disheveled HEENT: PERRL. EOMI. Oral: Moist Mucosa, - - Poor dentition Neck: soft, nontender. No cervical adenopathy. Lungs: Clear to auscultation. Cardiovascular: Regular rate, Regular Rhythm. Abdomen: Soft, Non-Distended, Obese Extremities: Venous stasis dermatitis changes to bilateral lower extremities. Edema present. Large macerated area in the posterior aspect of his left leg which is able to express some maggots and some drainage. Very malodorous with some serous drainage appreciated, but no purulence noted. Some tenderness to palpation. Measures 18 x 18 cm. Musculoskeletal: No Tenderness to Palpation of Joints or Extremities, No Muscle Wasting Neurological: CN II - XII grossly intact. Psych/Mental Status: Normal Affect, Appropriate Vital Signs Temp Pulse Resp BP Pulse Ox 98.1 F 81 16 146/80 H 94 04/21/19 09:10 04/21/19 09:10 04/21/19 09:10 04/21/19 09:10 04/21/19 09:10 Oxygen Flow Rate (L/min) 2 Oxygen Delivery Method Room Air Weight: 369 lb 4.812 oz Body Mass Index (BMI) 54.5 Finger Stick Blood Glucose 389 Intake and Output for Last 24 Hours 04/19/19 04/20/19 04/21/19 23:59 23:59 23:59 Intake Total 1640 / 1640 2251 / 2251 Balance 1640 / 1640 2251 / 2251 Microbiology Past 72 Hours 04/20/19 21:30 Wound Abcess - Leg, Left Gram Stain - Final 04/20/19 21:30 Wound Abcess - Leg, Left Wound Culture - Preliminary Gram negative mark Beta streptococcus Laboratory Results 04/20/19 14:57: POC Glucose 389 H 04/20/19 15:20: WBC Cancelled, Corrected WBC Cancelled, RBC Cancelled, Hgb Cancelled, Hct Cancelled, MCV Cancelled, MCH Cancelled, MCHC Cancelled, RDW Std Deviation Cancelled, RDW Coeff of Jovany Cancelled, Plt Count Cancelled, MPV Cancelled, Immature Gran % (Auto) Cancelled, Neut % (Auto) Cancelled, Lymph % (Auto) Cancelled, [place] % (Auto) Cancelled, Eos % (Auto) Cancelled, Baso % (Auto) Cancelled, Absolute Neuts (auto) Cancelled, Absolute Lymphs (auto) Cancelled, Total Counted Cancelled, Neutrophils % (Manual) Cancelled, Band Neutrophils % Cancelled, Lymphocytes % (Manual) Cancelled, Monocytes % (Manual) Cancelled, Eosinophils % (Manual) Cancelled, Basophils % (Manual) Cancelled, Metamyelocytes % Cancelled, Myelocytes % Cancelled, Promyelocytes % Cancelled, Blast Cells % Cancelled, Plasma Cell % (Manual) Cancelled, Other Cells % Cancelled, Nucleated RBC % Cancelled, Nucleated RBCs/100 WBC Cancelled, Differential Comment Cancelled, Diff Path Review Cancelled, Hypersegmented Neuts Cancelled, Atypical Lymphocytes Cancelled, Reactive Lymphocytes Cancelled, Smudge Cells Cancelled, Toxic Granulation Cancelled, Toxic Vacuolation Cancelled, Dohle Bodies Cancelled, Kanwal Rods Cancelled, Platelet Estimate Cancelled, Plt Morphology Comment Cancelled, RBC Morphology Cancelled, Polychromasia Cancelled, Hypochromasia Cancelled, Poikilocytosis Cancelled, Basophilic Stippling Cancelled, Anisocytosis Cancelled, Microcytosis Cancelled, Macrocytosis Cancelled, Spherocytes Cancelled, Sickle Cells Cancelled, Target Cells Cancelled, Tear Drop Cells Cancelled, Ovalocytes Cancelled, Stomatocytes Cancelled, De Olive[place] Bodies Cancelled, Keyser Cells Cancelled, Bite Cells Cancelled, Crenated Cell Cancelled, Acanthocytes (Spur) Cancelled, Rouleaux Cancelled, Schistocytes Cancelled 04/20/19 15:20: Sodium Cancelled, Potassium Cancelled, Chloride Cancelled, Carbon Dioxide Cancelled, Anion Gap Cancelled, BUN Cancelled, Creatinine Cancelled, Estim Creat Clear Calc Cancelled, Est GFR (MDRD) Af Amer Cancelled, Est GFR (MDRD) Non-Af Cancelled, BUN/Creatinine Ratio Cancelled, Glucose Cancelled, Calcium Cancelled 04/20/19 15:58: Sodium 132 L, Potassium 3.9, Chloride 92 L, Carbon Dioxide 34.0 H, Anion Gap 6, BUN 9, Creatinine 1.00, Estim Creat Clear Calc 85.43, Est GFR (MDRD) Af Amer 101, Est GFR (MDRD) Non-Af 83, BUN/Creatinine Ratio 9.0 L, Glucose 349 H, Calcium 8.5 04/20/19 15:58: WBC 9.1, RBC 4.74, Hgb 14.7, Hct 45.0, MCV 94.9 H, MCH 31.0, MCHC 32.7, RDW Std Deviation 47.4 H, RDW Coeff of Jovany 13.5, Plt Count 175, MPV 10.3, Immature Gran % (Auto) 0.500, Neut % (Auto) 74.7 H, Lymph % (Auto) 17.2 L, [place] % (Auto) 4.2, Eos % (Auto) 2.7, Baso % (Auto) 0.7, Absolute Neuts (auto) 6.8, Absolute Lymphs (auto) 1.57, Nucleated RBC % 0 04/20/19 21:30: S.aureus Protein A PCR NEGATIVE, MRSA (PCR) Negative 04/20/19 23:27: POC Glucose 240 H 04/21/19 05:20: Sodium 132 L, Potassium 4.0, Chloride 96 L, Carbon Dioxide 30.0, Anion Gap 6, BUN 8, Creatinine 0.81, Estim Creat Clear Calc 105.47, Est GFR (MDRD) Af Amer 128, Est GFR (MDRD) Non-Af 106, BUN/Creatinine Ratio 9.9 L, Glucose 233 H, Calcium 7.7 L, Total Bilirubin 1.00, AST 27, ALT 30, Alkaline Phosphatase 104, Total Protein 7.0, Albumin 3.0 L, Globulin 4.0, Albumin/Globulin Ratio 0.8 L, TSH 53.10 H 04/21/19 05:20: WBC 9.6, RBC 4.31 L, Hgb 13.4, Hct 41.4, MCV 96.1 H, MCH 31.1, MCHC 32.4, RDW Std Deviation 48.3 H, RDW Coeff of Jovany 13.6, Plt Count 174, MPV 9.9, Immature Gran % (Auto) 0.500, Neut % (Auto) 74.5 H, Lymph % (Auto) 16.5 L, [place] % (Auto) 5.1, Eos % (Auto) 2.8, Baso % (Auto) 0.6, Absolute Neuts (auto) 7.1, Absolute Lymphs (auto) 1.58, Nucleated RBC % 0 04/21/19 05:20: Hemoglobin A1c 9.5 H 04/21/19 06:52: POC Glucose 229 H 04/21/19 11:23: POC Glucose 257 H Diagnostic Data Lower Extremity CT 04/20/19 19:14 IMPRESSION: No fracture or dislocation. Diffuse prominent soft tissue swelling without discrete loculated fluid collection. Current Medications Acetaminophen (Tylenol) 650 mg PO Q6H PRN PRN PRN Reason: Pain Score 1-3/Temp > 100.7 F Dextrose (D50w Syringe) 0 gm IV X1 PRN; Protocol PRN Reason: Hypoglycemia Enoxaparin Sodium (Lovenox) 40 mg SC DAILY@1000 [facility] Last Admin: 04/21/19 09:08 Dose: 40 mg Documented by: Glucagon () 1 mg IM .X1 PRN PRN Reason: Hypoglycemia Ampicillin Sodium/Sulbactam (Sodium 3 gm/ Sodium Chloride) 112 mls @ 150 mls/hr IV Q6 [facility] Last Infusion: 04/21/19 12:11 Dose: Infused Documented by: Vancomycin IV Pharmacy to Dose (1 ea/ Sodium Chloride) 500 mls @ 250 mls/hr IV X1 PRN; Protocol PRN Reason: Rx to Dose Vancomycin HCl 1,750 mg/ (Sodium Chloride) 535 mls @ 250 mls/hr IV Q12H [facility] Last Infusion: 04/21/19 09:17 Dose: Infused Documented by: Insulin Human Lispro (Humalog Kwikpen (Bkc)) 0 unit SC ACHS [facility]; Protocol Last Admin: 04/21/19 11:24 Dose: 3 u Documented by: Levothyroxine Sodium (Synthroid) 75 mcg PO DAILY@0600 [facility] Last Admin: 04/21/19 06:11 Dose: 75 mcg Documented by: Lisinopril (Zestril) 10 mg PO DAILY [facility] Last Admin: 04/21/19 09:08 Dose: 10 mg Documented by: Melatonin (Melatonin) 3 mg PO QHS PRN PRN PRN Reason: INSOMNIA Metformin HCl (Glucophage) 500 mg PO BIDCM [facility] Last Admin: 04/21/19 09:08 Dose: 500 mg Documented by: Nutritional Formula (Lactose Free) (Glucerna Shake) 120 ml PO TIDCM [facility] Last Admin: 04/21/19 11:26 Dose: 120 ml Documented by: Nystatin (Mycostatin Powder) 1 applic TOPICAL TID [facility]; Protocol Ondansetron HCl (Zofran) 4 mg IV Q8H PRN PRN PRN Reason: NAUSEA/VOMITING Oxycodone HCl (Oxyir) 5 mg PO Q4H PRN PRN PRN Reason: Pain Score 4-10/10 Senna/Docusate Sodium (Senokot-S, Capri-Colace) 2 tablet PO BID PRN PRN PRN Reason: Constipation Sodium Chloride () 10 - 40 ml IV UD PRN PRN Reason: SALINE FLUSH Tamsulosin HCl (Flomax) 0.4 mg PO DAILY@1730 [facility] Assessment/Plan All Active Problems Skin maceration (Acute) Cellulitis and abscess of left leg (Acute) Infected stasis ulcer of left lower extremity (Acute) Acute respiratory insufficiency (Resolved) Possible pneumonia (Resolved) Cellulitis of left lower extremity (Acute) 1. Nonhealing infected diabetic macerated ulcer left posterior leg with cellulitis. 2. Diabetes mellitus. 3. Chronic venous stasis dermatitis bilateral lower extremities. 4. Infected stasis ulcer left posterior leg. 5. Bilateral lower extremity edema. 6. Poor hygiene. 7. Obesity. CT reviewed. No discrete abscess seen. Extensive swelling and edema present. Continue Vancomycin and Unasyn. Wound culture thus far shows Gram negative mark and Beta Streptococcus. Recommend operative intervention with incision and drainage and excisional debridement of this nonhealing infected diabetic ulcer left posterior leg. He is a poorly controlled diabetic with a HgbA1c of 9.5. Upon presentation there were maggots coming from the ulcer which is indicative of presence of nonviable tissue. No discrete ulcer noted as there is large amount of maceration present which is what is causing the skin breakdown leading to scattered ulcerations in the macerated tissue. He is at risk for worsening of the infection which can be life threatening and which increases the risk of amputation. Will send tissue to Pathology for analysis to rule out carcinoma and to Microbiology for culture. A positive culture will necessitate antibiotic therapy. The wound will be left open and wound care started with the VAC. His home situation is less than optimal and he would be best served to go to an ECF at discharge especially with the presence of a complex VAC dressing change. He may also need IV antibiotics through a PICC line. After discharge he may followup at the Wound Center. If there is a plateau in the healing process and his HgbA1c decreases down to 8 or less, then can proceed with delayed closure with skin grafting. Because of the infection and proposed surgery, he will have increased metabolic demands. Will check a Prealbumin and encourage nutritional supplementation with protein to help the healing process. Patient was informed of the risks and complications of the procedure including alternatives to surgery. These were discussed with the patient personally. Patient voices understanding and wishes to proceed. He understands that he is at increased risk for amputation if aggressive measures are not taken and he voices understanding and wishes to proceed. Will schedule the surgery for tomorrow. Code Visit Inpatient E&M: 13874 Init Hosp L2 - ICD-10 - E11.622, L03.116, I83.229, L98.8, I87.2, R60.0, R46.0, E66.01
[2019-04-21 14:35] VITALS: BP 135/65; PULSE 89; RESP 16; TEMP 36.9; O2SAT 92
--- NOTE | 2019-04-21 15:11 | CHAPLAIN ---
patient was on phone but welcomed this burnishing machine operator into room; pt continued on phone for long time for medical questions, but this burnishing machine operator waited in room; then came to see pt; visit was not completed
[2019-04-21] MEDS: Nystatin Powder 15gm Bottle 1 APPLIC TOPICAL ×2 (16:11→22:33)
[2019-04-21] MEDS: 0.9% Saline Lock 10 ML Syringe IV (16:13)
[2019-04-21] MEDS: Tamsulosin HCl 0.4 MG Capsule PO (16:17)
--- NOTE | 2019-04-21 16:21 | PN_ITS ---
Patient Problems: Active and Suspected Problems Cellulitis of left lower extremity (Acute) Subjective: Patient was seen and examined today, his hygiene is very poor and there is an odor in the room during the time of my examination which I believe is from the patient's poor hygiene (lack of bathing). I noted that the patient's TSH was high-I am not sure he is taking his medications as directed, I saw this patient earlier this year and was unconvinced he was able to be compliant with his medications. I talked to the wound care nurse briefly about his left leg wound. I examined the pictures that were taken by the wound care nurse, I am not sure that any surgery needs to be done on the patient's leg at this time. He is be ing seen by plastic surgery for consultation regarding possible surgery. - Physical Exam Vitals/I&O's: Vital Signs Temp Pulse Resp BP Pulse Ox 98.5 F 89 16 135/65 H 92 04/21/19 14:35 04/21/19 14:35 04/21/19 14:35 04/21/19 14:35 04/21/19 14:35 Oxygen Flow Rate (L/min) 2 Oxygen Delivery Method Room Air Weight: 167.512 kg Body Mass Index (BMI) 54.5 Finger Stick Blood Glucose 389 Intake and Output for Last 24 Hours 04/19/19 04/20/19 04/21/19 23:59 23:59 23:59 Intake Total 1640 / 1640 2251 / 2251 Balance 1640 / 1640 2251 / 2251 General: Alert, Oriented x3, Cooperative, No apparent distress, - - Patient exhibits poor overall hygiene HEENT: Atraumatic, PERRLA, EOMI, Normocephalic Oral: Moist Mucosa Neck: Supple, No JVD, Negative Carotid Bruits, Trachea Midline, Thyroid Normal Size and Texture Lungs: Clear to auscultation, Normal air movement, No rhonchi, No wheeze, No rales Cardiovascular: Regular rate, Regular Rhythm, Normal S1, Normal S2, No murmurs, No Ectopic Activity Abdomen: Bowel Sounds Present, Soft, Non Tender, Non-Distended, Obese Extremities: No clubbing, No cyanosis, Capillary Refill Less than 3 Seconds, Edema - Generalized lower leg edema is noted bilaterally, I did not remove the patient's David wraps for inspection of the patient's left leg wound Neurological: Cranial nerves II-XII grossly intact, Neuro grossly intact, Sensory exam intact to light touch and pain, Coordination normal Psych/Mental Status: Normal Affect, Appropriate, Alert and oriented to time, place, person, mood and affect Microbiology Past 72 Hours 04/20/19 21:30 Wound Abcess - Leg, Left Gram Stain - Final 04/20/19 21:30 Wound Abcess - Leg, Left Wound Culture - Preliminary Gram negative mark Beta streptococcus Laboratory Results 04/20/19 15:58: Sodium 132 L, Potassium 3.9, Chloride 92 L, Carbon Dioxide 34.0 H, Anion Gap 6, BUN 9, Creatinine 1.00, Estim Creat Clear Calc 85.43, Est GFR (MDRD) Af Amer 101, Est GFR (MDRD) Non-Af 83, BUN/Creatinine Ratio 9.0 L, Glucose 349 H, Calcium 8.5 04/20/19 15:58: WBC 9.1, RBC 4.74, Hgb 14.7, Hct 45.0, MCV 94.9 H, MCH 31.0, MCHC 32.7, RDW Std Deviation 47.4 H, RDW Coeff of Jovany 13.5, Plt Count 175, MPV 10.3, Immature Gran % (Auto) 0.500, Neut % (Auto) 74.7 H, Lymph % (Auto) 17.2 L, [place] % (Auto) 4.2, Eos % (Auto) 2.7, Baso % (Auto) 0.7, Absolute Neuts (auto) 6.8, Absolute Lymphs (auto) 1.57, Nucleated RBC % 0 04/20/19 21:30: S.aureus Protein A PCR NEGATIVE, MRSA (PCR) Negative 04/20/19 23:27: POC Glucose 240 H 04/21/19 05:20: Sodium 132 L, Potassium 4.0, Chloride 96 L, Carbon Dioxide 30.0, Anion Gap 6, BUN 8, Creatinine 0.81, Estim Creat Clear Calc 105.47, Est GFR (MDRD) Af Amer 128, Est GFR (MDRD) Non-Af 106, BUN/Creatinine Ratio 9.9 L, Glucose 233 H, Calcium 7.7 L, Total Bilirubin 1.00, AST 27, ALT 30, Alkaline Phosphatase 104, Total Protein 7.0, Albumin 3.0 L, Globulin 4.0, Albumin/Globulin Ratio 0.8 L, TSH 53.10 H 04/21/19 05:20: WBC 9.6, RBC 4.31 L, Hgb 13.4, Hct 41.4, MCV 96.1 H, MCH 31.1, MCHC 32.4, RDW Std Deviation 48.3 H, RDW Coeff of Jovany 13.6, Plt Count 174, MPV 9.9, Immature Gran % (Auto) 0.500, Neut % (Auto) 74.5 H, Lymph % (Auto) 16.5 L, [place] % (Auto) 5.1, Eos % (Auto) 2.8, Baso % (Auto) 0.6, Absolute Neuts (auto) 7.1, Absolute Lymphs (auto) 1.58, Nucleated RBC % 0 04/21/19 05:20: Hemoglobin A1c 9.5 H 04/21/19 06:52: POC Glucose 229 H 04/21/19 11:23: POC Glucose 257 H Current Medications Acetaminophen (Tylenol) 650 mg PO Q6H PRN PRN PRN Reason: Pain Score 1-3/Temp > 100.7 F Dextrose (D50w Syringe) 0 gm IV X1 PRN; Protocol PRN Reason: Hypoglycemia Enoxaparin Sodium (Lovenox) 40 mg SC DAILY@1000 [facility] Last Admin: 04/21/19 09:08 Dose: 40 mg Documented by: Furosemide (Lasix) 40 mg PO BID@1000,1800 [facility] Glucagon () 1 mg IM .X1 PRN PRN Reason: Hypoglycemia Ampicillin Sodium/Sulbactam (Sodium 3 gm/ Sodium Chloride) 112 mls @ 150 mls/hr IV Q6 [facility] Last Infusion: 04/21/19 12:11 Dose: Infused Documented by: Vancomycin IV Pharmacy to Dose (1 ea/ Sodium Chloride) 500 mls @ 250 mls/hr IV X1 PRN; Protocol PRN Reason: Rx to Dose Vancomycin HCl 1,750 mg/ (Sodium Chloride) 535 mls @ 250 mls/hr IV Q12H [facility] Last Infusion: 04/21/19 09:17 Dose: Infused Documented by: Insulin Human Lispro (Humalog Kwikpen (Bkc)) 0 unit SC ACHS [facility]; Protocol Last Admin: 04/21/19 16:11 Dose: 2 u Documented by: Levothyroxine Sodium (Synthroid) 75 mcg PO DAILY@0600 [facility] Last Admin: 04/21/19 06:11 Dose: 75 mcg Documented by: Lisinopril (Zestril) 10 mg PO DAILY [facility] Last Admin: 04/21/19 09:08 Dose: 10 mg Documented by: Melatonin (Melatonin) 3 mg PO QHS PRN PRN PRN Reason: INSOMNIA Metformin [facility] ([facility]) [facility] Last Admin: 04/21/19 16:16 Dose: 500 mg Documented by: Nutritional Formula (Lactose Free) (Glucerna Shake) 120 ml PO TIDCM [facility] Last Admin: 04/21/19 16:16 Dose: 120 ml Documented by: Nystatin (Mycostatin Powder) 1 applic TOPICAL TID [facility]; Protocol Last Admin: 04/21/19 16:11 Dose: 1 applic Documented by: Ondansetron HCl (Zofran) 4 mg IV Q8H PRN PRN PRN Reason: NAUSEA/VOMITING Oxycodone HCl (Oxyir) 5 mg PO Q4H PRN PRN PRN Reason: Pain Score 4-10/10 Potassium Chloride (K-Dur) 20 meq [facility] Senna/Docusate Sodium (Senokot-S, Capri-Colace) 2 tablet PO BID PRN PRN PRN Reason: Constipation Sodium Chloride () 10 - 40 ml IV UD PRN PRN Reason: SALINE FLUSH Last Admin: 04/21/19 16:13 Dose: 10 ml Documented by: Tamsulosin HCl (Flomax) 0.4 mg PO DAILY@1730 [facility] Last Admin: 04/21/19 16:17 Dose: 0.4 mg Documented by: Medical Necessity - Tobacco Use Smoking Status: Former smoker Tobacco Use: Cigarettes, Cigars, Chew, Pipe Assessment/Plan All Active Problems Acute respiratory insufficiency (Resolved) Possible pneumonia (Resolved) Cellulitis of left lower extremity (Acute) #1 cellulitis of the left lower leg-patient's culture results grew out gram- negative mark and strep-I have decided to stop the patient's vancomycin and keep the patient on Unasyn for now, due to chronic leg edema, I decided to place patient on Lasix. The last time I took care of the patient earlier this year he was discharged to home on Lasix, I do not know how this got stopped. #2 [id number] complicates care with the patient and recovery, patient states that he lives with his grandson #3 chronic stasis edema of the legs-again I placed the patient on Lasix today #4 hypothyroidism-patient appears noncompliant with taking his thyroid medication, I will check a T3 and T4. #5 essential hypertension #6 morbid obesity Code Visit Inpatient E&M: 77395 Subs Hosp L2
[2019-04-21 16:41] LABS: Bedside Glucose 210 mg/dL (70-110)
[2019-04-21 16:55] LABS: Free T3 0.7 pg/mL (2.18-3.98); T4 Free Direct 0.29 ng/dL (0.76-1.46)
[2019-04-21] MEDS: Furosemide 40 MG Tablet PO (17:37)
[2019-04-21 22:38] VITALS: BP 116/67; PULSE 86; RESP 20; TEMP 36.7; O2SAT 92
[2019-04-21 22:41] VITALS: O2SAT 95
[2019-04-22 00:01] LABS: Bedside Glucose 262 mg/dL (70-110)
[2019-04-22 02:32] VITALS: BP 105/58; PULSE 90; RESP 16; TEMP 36.5; O2SAT 94
[2019-04-22 06:40] LABS: Bedside Glucose 248 mg/dL (70-110)
[2019-04-22] MEDS: Levothyroxine 75 MCG Tablet PO (06:59)
[2019-04-22] MEDS: Nystatin Powder 15gm Bottle 1 APPLIC TOPICAL ×3 (07:02→21:20)
[2019-04-22 08:07] VITALS: BP 117/67; PULSE 82; RESP 16; TEMP 36.6; O2SAT 97
[2019-04-22 09:00] VITALS: PULSE 76
--- NOTE | 2019-04-22 10:44 | CASEMGMT ---
Social Work Note SW met with pt to follow up on discharge plans. Pt singed waiver form. SW to mail form for pt to [facility]. SW discussed SNF options with pt. Pt is scheduled to have debridement with Dr. Morris today at 1300. Pt states that he is agreeable to either [facility] or [facility]. SW explained referral process and that pt will need insurance approval. Pt states understanding, denied additional needs or concerns at this time. SW placed a call to both Jackie at [facility] and Laure at [facility] and provide referral. SW faxed referral to both [facility] and [facility]. Plan: SNF pending acceptance and pre-cert Christine Bush TOOL SHAPER SET UP OPERATOR, IRRIGATOR HEAD
--- NOTE | 2019-04-22 10:47 | NURSING ---
Pt is scheduled for surgery with Dr Morris this afternoon. will leave dressing intact at this time since patient will be picked up in about an hour. possible wound VAC post op depending on the extent of debridement.
--- NOTE | 2019-04-22 11:30 | NURSING ---
skin photo: left lower leg
--- NOTE | 2019-04-22 11:30 | NURSING ---
skin photo: left lower leg
[2019-04-22 12:05] LABS: Bedside Glucose 223 mg/dL (70-110)
--- NOTE | 2019-04-22 12:08 | PN.SURG_ITS ---
Patient Problems: Active and Suspected Problems Cellulitis of left lower extremity (Acute) Subjective: Patient resting comfortably. He was given Lasix and applied adwoa wrap for compression. His legs feel better with no pain. The macerated area in question has dried up and appears stable at this time. - Physical Exam Vitals/I&O's: Vital Signs Temp Pulse Resp BP Pulse Ox 97.9 F 76 16 117/67 97 04/22/19 08:07 04/22/19 09:00 04/22/19 08:07 04/22/19 08:07 04/22/19 08:07 Oxygen Flow Rate (L/min) 2 Oxygen Delivery Method Nasal Cannula Weight: 369 lb 4.812 oz Body Mass Index (BMI) 54.5 Finger Stick Blood Glucose 389 Intake and Output for Last 24 Hours 04/20/19 04/21/19 04/22/19 23:59 23:59 23:59 Intake Total 1640 / 1640 2763 / 3430 891 / 891 Balance 1640 / 1640 2763 / 3430 891 / 891 General: Alert, Oriented x3 HEENT: PERRLA, EOMI Oral: Moist Mucosa Neck: Supple Lungs: Clear to auscultation Cardiovascular: Regular rate, Regular Rhythm Abdomen: Soft, Non-Distended Extremities: Edema - much improved with the Lasix and adwoa compression. Skin: Ulcer/ Wound - macerated area dry and stable. Nontender. Cellulitis resolved. Will hold off on surgery today. Neurological: Cranial nerves II-XII grossly intact Psych/Mental Status: Normal Affect, Appropriate Microbiology Past 72 Hours 04/20/19 21:30 Wound Abcess - Leg, Left Gram Stain - Final 04/20/19 21:30 Wound Abcess - Leg, Left Wound Culture - Preliminary Gram negative mark Streptococcus group C Laboratory Results 04/21/19 05:20: Free T4 0.29 L, Free T3 pg/dL 0.7 L 04/21/19 16:10: POC Glucose 210 H 04/21/19 22:31: POC Glucose 262 H 04/22/19 06:19: POC Glucose 248 H 04/22/19 12:01: POC Glucose 223 H Current Medications Acetaminophen (Tylenol) 650 mg PO Q6H PRN PRN PRN Reason: Pain Score 1-3/Temp > 100.7 F Dextrose (D50w Syringe) 0 gm IV X1 PRN; Protocol PRN Reason: Hypoglycemia Enoxaparin Sodium (Lovenox) 40 mg SC DAILY@1000 [facility] Last Admin: 04/22/19 10:27 Dose: Not Given Documented by: Furosemide (Lasix) 40 mg PO BID@1000,1800 [facility] Last Admin: 04/22/19 10:26 Dose: Not Given Documented by: Glucagon () 1 mg IM .X1 PRN PRN Reason: Hypoglycemia Ampicillin Sodium/Sulbactam (Sodium 3 gm/ Sodium Chloride) 112 mls @ 150 mls/hr IV Q6 [facility] Last Infusion: 04/22/19 07:42 Dose: Infused Documented by: Sodium Chloride () 250 mls @ 15 mls/hr IV .[id number] PRN PRN Reason: Saline Flush Insulin Human Lispro (Humalog Kwikpen (Bkc)) 0 unit SC ACHS [facility]; Protocol Last Admin: 04/22/19 07:28 Dose: Not Given Documented by: Levothyroxine Sodium (Synthroid) 75 mcg PO DAILY@0600 [facility] Last Admin: 04/22/19 06:59 Dose: 75 mcg Documented by: Lisinopril (Zestril) 10 mg PO DAILY [facility] Last Admin: 04/21/19 09:08 Dose: 10 mg Documented by: Melatonin (Melatonin) 3 mg PO QHS PRN PRN PRN Reason: INSOMNIA Metformin [facility] ([facility]ucophage) [facility] Last Admin: 04/22/19 10:26 Dose: Not Given Documented by: Nutritional Formula (Lactose Free) (Glucerna Shake) 120 ml PO TIDCM [facility] Last Admin: 04/22/19 10:26 Dose: Not Given Documented by: Nystatin (Mycostatin Powder) 1 applic TOPICAL TID [facility]; Protocol Last Admin: 04/22/19 07:02 Dose: 1 applic Documented by: Ondansetron HCl (Zofran) 4 mg IV Q8H PRN PRN PRN Reason: NAUSEA/VOMITING Oxycodone HCl (Oxyir) 5 mg PO Q4H PRN PRN PRN Reason: Pain Score 4-10/10 Potassium Chloride (K-Dur) 20 meq [facility] Last Admin: 04/22/19 10:26 Dose: Not Given Documented by: Senna/Docusate Sodium (Senokot-S, Capri-Colace) 2 tablet PO BID PRN PRN PRN Reason: Constipation Sodium Chloride () 10 - 40 ml IV UD PRN PRN Reason: SALINE FLUSH Last Admin: 04/21/19 16:13 Dose: 10 ml Documented by: Tamsulosin HCl (Flomax) 0.4 mg PO DAILY@1730 [facility] Last Admin: 04/21/19 16:17 Dose: 0.4 mg Documented by: Medical Necessity - Tobacco Use Smoking Status: Former smoker Tobacco Use: Cigarettes, Cigars, Chew, Pipe Assessment/Plan All Active Problems Skin maceration (Acute) Cellulitis and abscess of left leg (Acute) Infected stasis ulcer of left lower extremity (Acute) Acute respiratory insufficiency (Resolved) Possible pneumonia (Resolved) Cellulitis of left lower extremity (Acute) 1. Nonhealing infected diabetic macerated ulcer left posterior leg, greatly improved. 2. Cellulitis resolved. 2. Diabetes mellitus. 3. Chronic venous stasis dermatitis bilateral lower extremities. 4. Infected stasis ulcer left posterior leg, greatly improved. 5. Bilateral lower extremity edema, greatly improved with adwoa compression and Lasix. 6. Poor hygiene. 7. Obesity. Macerated area dryer and much improved with Lasix and adwoa compression. Continue Unasyn. The Vancomycin has been stopped. Wound culture thus far shows Gram negative mark and Streptococcus group C. Can switch to po antibiotics at discharge. Will hold off on surgical debridement today. Had a discussion with the patient. Even though the legs look better with Lasix and adwoa compression, it is imperative that he continue the adwoa compression after discharge. He is still at risk for worsening of the infection which can be life threatening and which increases the risk of amputation. He voices understanding that he will followup with his PCP on a more consistent basis and keep his diabetes under much better control. His home situation is less than optimal and he would be best served to go to an ECF at discharge. He is being evaluated for that. Patient understands that even though surgery is postponed for today, he may still need surgery in the future depending on how he takes care of his legs after discharge. Code Visit Inpatient E&M: 21519 Subs Hosp L2 - ICD-10 - E11.622, L03.116, I83.229, L98.8, I87.2, R60.0, R46.0, E66.01
[2019-04-22] MEDS: Insulin Lispro 100 UNIT/ML INSULN.PEN SC ×3 (12:14→21:20)
[2019-04-22] MEDS: Lisinopril 10 MG Tablet PO (12:35)
[2019-04-22] MEDS: Glucerna Shake 120 ML LIQUID PO ×2 (12:36→17:42)
--- NOTE | 2019-04-22 13:31 | PN_ITS ---
Patient Problems: Active and Suspected Problems Cellulitis of left lower extremity (Acute) Subjective: Patient was seen and examined today, I talked extensively with plastic surgery today concerning his care, plastic surgery reevaluated his medical condition today and did not feel that they need to do surgery on the patient's left leg. Patient will need outpatient wound care and it is still unclear whether the patient needs to go to an extended care facility-PT and OT will see the patient today. Patient's thyroid levels were low indicating is probably not taking his Synthroid as an outpatient. Patient's hemoglobin A1c was also elevated. - Physical Exam Vitals/I&O's: Vital Signs Temp Pulse Resp BP Pulse Ox 97.9 F 76 16 117/67 97 04/22/19 08:07 04/22/19 09:00 04/22/19 08:07 04/22/19 08:07 04/22/19 08:07 Oxygen Flow Rate (L/min) 2 Oxygen Delivery Method Nasal Cannula Weight: 167.512 kg Body Mass Index (BMI) 54.5 Finger Stick Blood Glucose 389 Intake and Output for Last 24 Hours 04/20/19 04/21/19 04/22/19 23:59 23:59 23:59 Intake Total 1640 / 1640 2763 / 3430 1003 / 1003 Balance 1640 / 1640 2763 / 3430 1003 / 1003 General: Alert, Oriented x3, Cooperative, No apparent distress, Well developed HEENT: Atraumatic, PERRLA, EOMI, Normocephalic Oral: Moist Mucosa Neck: Supple, Trachea Midline, Thyroid Normal Size and Texture Lungs: Clear to auscultation, Normal air movement, No rhonchi, No wheeze, No rales Cardiovascular: Regular rate, Regular Rhythm, Normal S1, Normal S2, No murmurs Abdomen: Bowel Sounds Present, Soft, Non Tender, Non-Distended Extremities: Capillary Refill Less than 3 Seconds, Edema - Generalized edema is noted over the patient's both lower legs Skin: Excoriated - There is excoriation noted over the posterior aspect of the patient's left calf area, this area is approximately 5 inches x 3 inches across. Neurological: Cranial nerves II-XII grossly intact, Neuro grossly intact, Sensory exam intact to light touch and pain, Coordination normal Psych/Mental Status: Normal Affect, Appropriate, Alert and oriented to time, place, person, mood and affect Microbiology Past 72 Hours 04/20/19 21:30 Wound Abcess - Leg, Left Gram Stain - Final 04/20/19 21:30 Wound Abcess - Leg, Left Wound Culture - Preliminary Gram negative mark Streptococcus group C Laboratory Results 04/21/19 05:20: Free T4 0.29 L, Free T3 pg/dL 0.7 L 04/21/19 16:10: POC Glucose 210 H 04/21/19 22:31: POC Glucose 262 H 04/22/19 06:19: POC Glucose 248 H 04/22/19 12:01: POC Glucose 223 H Current Medications Acetaminophen (Tylenol) 650 mg PO Q6H PRN PRN PRN Reason: Pain Score 1-3/Temp > 100.7 F Dextrose (D50w Syringe) 0 gm IV X1 PRN; Protocol PRN Reason: Hypoglycemia Enoxaparin Sodium (Lovenox) 40 mg SC DAILY@1000 [facility] Last Admin: 04/22/19 10:27 Dose: Not Given Documented by: Furosemide (Lasix) 40 mg PO BID@1000,1800 [facility] Last Admin: 04/22/19 10:26 Dose: Not Given Documented by: Glucagon () 1 mg IM .X1 PRN PRN Reason: Hypoglycemia Ampicillin Sodium/Sulbactam (Sodium 3 gm/ Sodium Chloride) 112 mls @ 150 mls/hr IV Q6 [facility] Last Infusion: 04/22/19 13:17 Dose: Infused Documented by: Sodium Chloride () 250 mls @ 15 mls/hr IV .[id number] PRN PRN Reason: Saline Flush Last Admin: 04/22/19 13:30 Dose: 15 mls/hr Documented by: Insulin Human Lispro (Humalog Kwikpen (Bkc)) 0 unit SC ACHS [facility]; Protocol Last Admin: 04/22/19 12:14 Dose: 2 u Documented by: Levothyroxine Sodium (Synthroid) 75 mcg PO DAILY@0600 [facility] Last Admin: 04/22/19 06:59 Dose: 75 mcg Documented by: Lisinopril (Zestril) 10 mg PO DAILY [facility] Last Admin: 04/22/19 12:35 Dose: 10 mg Documented by: Melatonin (Melatonin) 3 mg PO QHS PRN PRN PRN Reason: INSOMNIA Metformin HCl (Glucophage) 500 mg PO BIDCM [facility] Last Admin: 04/22/19 10:26 Dose: Not Given Documented by: Nutritional Formula (Lactose Free) (Glucerna Shake) 120 ml PO TIDCM [facility] Last Admin: 04/22/19 12:36 Dose: 120 ml Documented by: Nystatin (Mycostatin Powder) 1 applic TOPICAL TID [facility]; Protocol Last Admin: 04/22/19 07:02 Dose: 1 applic Documented by: Ondansetron HCl (Zofran) 4 mg IV Q8H PRN PRN PRN Reason: NAUSEA/VOMITING Oxycodone HCl (Oxyir) 5 mg PO Q4H PRN PRN PRN Reason: Pain Score 4-10/10 Pot[facility] Admin: 04/22/19 10:26 Dose: Not Given Documented by: Senna/Docusate Sodium (Senokot-S, Capri-Colace) 2 tablet PO BID PRN PRN PRN Reason: Constipation Sodium Chloride () 10 - 40 ml IV UD PRN PRN Reason: SALINE FLUSH Last Admin: 04/21/19 16:13 Dose: 10 ml Documented by: Tamsulosin HCl (Flomax) 0.4 mg PO DAILY@1730 [facility] Last Admin: 04/21/19 16:17 Dose: 0.4 mg Documented by: Medical Necessity - Tobacco Use Smoking Status: Former smoker Tobacco Use: Cigarettes, Cigars, Chew, Pipe Assessment/Plan All Active Problems Skin maceration (Acute) Cellulitis and abscess of left leg (Acute) Infected stasis ulcer of left lower extremity (Acute) Acute respiratory insufficiency (Resolved) Possible pneumonia (Resolved) Cellulitis of left lower extremity (Acute) #1 cellulitis of the left lower leg-patient's culture results grew out gram- negative mark and strep-patient will remain on Unasyn #2 [id number]-[id number]-[id number] complicates care with the patient and recovery, patient states that he lives with his grandson, he will be seen by PT and OT in the hospital, it is unknown whether he will need inpatient skilled care #3 chronic stasis edema of the legs-patient will remain on Lasix #4 hypothyroidism-patient appears noncompliant with taking his thyroid medication #5 essential hypertension #6 morbid obesity #7 type 2 diabetes-uncontrolled, continue to monitor blood sugars, I will place the patient on Humulin N for improved blood sugar control. Code Visit Inpatient E&M: 47112 Subs Hosp L2
--- NOTE | 2019-04-22 14:00 | CHAPLAIN ---
Type of Pastoral Visit _x__ Initial Visit ___ Follow-up Visit ___ On-call Visit ___ General Patient Visit ___ Spiritual Assessment ___ Family Conference ___ Bereavement ___ Rapid Response ___ Code Blue ___ Other (describe below) Pastoral Care Referral From _x__ Patient ___ Family ___ Nurse ___ Physician ___ Oil Plant Operator ___ Claim Specialist ___ Other (describe below) Sacrament/Intervention _x__ Active listening ___ Anointing ___ Catholic ___ Bereavement ___ Communion _x__ Rosa exploration ___ ___ Life review _x__ Prayer ___ Reconciliation ___ Sacrament of Sick _x__ Supportive presence ___ Wedding ___ Other (describe below) Pastoral Comments
[2019-04-22 14:04] VITALS: BP 129/70; PULSE 85; RESP 16; TEMP 36.8; O2SAT 93
[2019-04-22] MEDS: DULoxetine Hcl 30 MG Capsule PO (14:48)
--- NOTE | 2019-04-22 16:05 | CASEMGMT ---
Social Work Note SW received message from Jackie at [facility] stating [facility] is able to accept pt but not [facility]. NORMA received message from Laure at [facility] stating they are able to accept pt. NORMA met with pt. NORMA updated pt on acceptance to [facility] not [facility] and acceptance to [facility]. Pt agreeable to [facility]. Pt is not having surgery with Dr. Morris now. NORMA spoke with PT/OT who state pt would benefit from SNF at discharge. NORMA faxed PT/OT notes to [facility] and wrote on fax coversheet to submit for pre-cert. Plan: [facility] pending pre-cert Christine Bush BLENDER SNUFF, DOPE FIRER
[2019-04-22 16:45] LABS: Bedside Glucose 277 mg/dL (70-110)
[2019-04-22] MEDS: 0.9% Saline Lock 10 ML Syringe IV (17:44)
[2019-04-22] MEDS: Tamsulosin HCl 0.4 MG Capsule PO (17:45)
[2019-04-22] MEDS: Furosemide 40 MG Tablet PO (17:46)
[2019-04-22] MEDS: metFORMIN HCl 500 MG Tablet PO (17:46)
[2019-04-22] MEDS: Insulin NPH Human 100 UNITS/ML PEN 15 UNITS SC (17:47)
[2019-04-22 20:19] VITALS: BP 147/81; PULSE 84; RESP 16; TEMP 37.2; O2SAT 94
[2019-04-22 21:30] LABS: Bedside Glucose 220 mg/dL (70-110)
[2019-04-23] VITALS (7 sets, daily range): BP systolic 117–139; BP diastolic 63–79; PULSE 73–83; RESP 16–18; TEMP 36.5–36.7; O2SAT 88–96
[2019-04-23] MEDS: Levothyroxine 75 MCG Tablet PO (05:02)
[2019-04-23] MEDS: Nystatin Powder 15gm Bottle 1 APPLIC TOPICAL ×2 (05:03→15:31)
[2019-04-23] MEDS: Glucerna Shake 120 ML LIQUID PO ×2 (08:18→11:17)
[2019-04-23] MEDS: metFORMIN HCl 500 MG Tablet PO ×2 (08:21→17:41)
[2019-04-23] MEDS: Insulin Lispro 100 UNIT/ML INSULN.PEN SC ×3 (08:21→17:40)
[2019-04-23] MEDS: Insulin NPH Human 100 UNITS/ML PEN 15 UNITS SC ×2 (08:22→17:41)
[2019-04-23] MEDS: Lisinopril 10 MG Tablet PO (08:23)
[2019-04-23] MEDS: DULoxetine Hcl 30 MG Capsule PO (08:23)
[2019-04-23] MEDS: Furosemide 40 MG Tablet PO ×2 (08:23→17:42)
[2019-04-23 08:36] LABS: Bedside Glucose 219 mg/dL (70-110)
[2019-04-23] MEDS: Enoxaparin 40 MG/0.4 ML Syringe SC (11:13)
[2019-04-23] MEDS: 0.9% Saline Lock 10 ML Syringe IV (11:17)
[2019-04-23 11:31] LABS: Bedside Glucose 228 mg/dL (70-110)
--- NOTE | 2019-04-23 12:41 | PCM.TXEXTCAR ---
- Diet 04/22/19 12:08 Diet: Calorie Controlled Is pt able to select menu?: Yes How many daily calories?: 1800 calorie - Routine Orders/Code Status Routine Lab Work: - - fingerstick blood sugars ACQHS, coverage with sliding scale Humalog SQ per protocol: 200-250: 5 units, 251-300: 10 units, 301-350: 12 units, 351-400: 15 units - Wound(s) L LEG Wound Type: Abscess left posterior lower leg Wound Type: healed dry skin Dressing Change: Dry Sterile Dressing - Therapies Weight Bearing: Full weight bearing Physical Therapy: Eval and Treat Occupational Therapy: Eval and Treat - Problem/Diagnosis (1) Cellulitis of leg without foot, left Status: Acute Current Visit: Yes (2) Edema of both legs Status: Chronic Current Visit: No (3) Diabetes mellitus Status: Chronic Current Visit: No (4) Morbid obesity with BMI of 50.0-59.9, adult Status: Chronic Current Visit: No (5) Hypertension Status: Chronic Current Visit: No (6) Hypothyroidism Status: Chronic Current Visit: No (7) Depression Status: Chronic Current Visit: No (8) Non compliance w medication regimen Status: Chronic Current Visit: Yes (9) Poor hygiene Status: Chronic Current Visit: No - Allergies/Procedures Done in Hospital Allergies/Adverse Reactions: Allergies No Known Allergies Allergy (Verified 04/20/19 14:41) Procedures: None - Type of Care/Length of Stay Estimated LOS: Convalescent Care Less Than 30 days Type of Care Needed: Skilled Rehab Potential: Good Prognosis: Good - Additional Orders/Day of Discharge H&P will serve as current which was dated: 04/21/19 Day of Discharge: 04/23/19 - Dietary and Speech Recommendations Dietitian Recommendations/Changes: Recommend 1800 Calorie Controlled Diet. Recommend Germán 1 pckt BID--order from pharmacy. - Follow Up Care Primary Care Physician: Vimal White DO [Primary Care Provider] -
--- NOTE | 2019-04-23 12:59 | CASEMGMT ---
Addendum entered by Christine Bush 04/23/19 13:52: NORMA faxed completed discharge paperwork to Laure at [facility] including transfer to extended care facility, signed medication list and any scripts. Original in SNF Folder and copy on pt's chart. NORMA completed convalescent 7000 in [facility] and original in SNF folder and copy on pt's chart. Original Note: Social Work Note NORMA received call from Laure at [facility] stating pre-cert has been obtained and pt can discharge to [facility] today. Physician updated. NORMA spoke with RN regarding transportation. RN states pt has to have his legs elevated during transportation, is not in isolation and will need to transport with oxygen. SW in to speak with pt. NORMA asked pt if his family is able to transport pt. Pt states no, pt states that his car is at [facility] and asked if he could transport pt. NORMA informed pt that it is not likely that he will be able to transport himself. SW will not be able to get bariatric wheelchair for pt due to pt's weight and no bariatric wheelchair's being available. NORMA placed a call to Laure at [facility] and asked if they have any bariatric wheelchair vans available and if they are able to transport pt. Laure states she will check and call this worker. NORMA received call from Laure at [facility] stating they are not able to transport pt as their van is in the shop. NORMA placed a call to [facility] and spoke with Jelena and asked if pt qualifies for bariatric cot. Jelena states pt will qualify for bariatric cot. NORMA arranged transportation via bariatric cot for 6:30pm. Transportation form completed and placed on pt's chart. NORMA placed a call to Laure at [facility] and updated her on transportation time. NORMA updated RN on transportation time. NORMA attempted to update pt but pt soundly sleeping. SW to fax completed discharge paperwork once completed by physician. Plan: [facility] today skilled with [facility] transporting via bariatric cot at 6:30pm Christine Bush MSW, ICE CREAM MIXER
[2019-04-23] MEDS: levoFLOXacin 500 MG Tablet PO (15:30)
[2019-04-23] MEDS: Tamsulosin HCl 0.4 MG Capsule PO (17:41)
[2019-04-23 17:56] LABS: Bedside Glucose 242 mg/dL (70-110)
--- NOTE | 2019-04-23 18:22 | NURSING ---
called Zandra at [facility] and gave report. pt transferred via cot at this time.
--- NOTE | 2019-04-24 08:42 | PCM.DC.SUM ---
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) Leg swelling (Chronic) Edema of both legs (Chronic) Dependent edema (Chronic) Diabetes mellitus (Chronic) Morbid obesity with BMI of 50.0-59.9, adult (Chronic) Poor hygiene (Chronic) Hypertension (Chronic) Hypothyroidism (Chronic) Depression (Chronic) Callus of foot (Chronic) Hypertrophic condition of skin (Chronic) History of thyroid cancer (Chronic) Tinea unguium (Chronic) Ulcer of left lower extremity with fat layer exposed (Chronic) Venous insufficiency (chronic) (peripheral) (Chronic) Venous stasis dermatitis of both lower extremities (Chronic) Hospital Course and Treatment Consultations 04/20/19 19:14 Consult: Onc/Wound/roundhouse worker Routine Comment: Operations: None Procedures: None Summary of Care Provided: The patient is a 53 year old M seen in the emergency room at [facility] with a chief complaint of a wound on his left calf area for approximately a month and complains of warmth and redness in the area and drainage from the left calf area. Work-up in the emergency room included labs which showed a normal white blood cell count, blood sugars were elevated, on examination of the patient's left calf area, there was foul-smelling odor but no obvious purulent discharge. The left calf was tender and warm to the touch. Patient was started on Zosyn and vancomycin for left leg cellulitis, he was admitted to [place] [id number] and seen by the wound care nurse, his hygiene was noted to be very poor and his body had terrible odor. Patient stated that he was not taking care of himself at home due to a lack of motivation to do so. He felt that he was depressed. Patient was seen in consultation by PT and OT as well as Lasix surgery, initially plastic surgery felt that the patient would benefit from surgery in the left calf area but the patient's wound improved during his hospital stay and it was not felt that surgery was necessary. Patient's thyroid functions were checked and it was noted that he was hypothyroid-patient however was not taking his medication at home. Patient was started on an antidepressant during his hospital stay. On 04/23/2019, patient was seen and examined: On examination he appeared in good health and spirits. Vital signs as documented. Skin: There was noted to be excoriation of the patient's left posterior calf area, no purulent drainage was noted to be present however, the area was slightly warm to the touch but did not seem tender.. Neck without JVD. Lungs clear. Heart exam notable for regular rhythm, normal sounds and absence of murmurs, rubs or gallops. Abdomen unremarkable and without evidence of organomegaly, masses, or abdominal aortic enlargement. Extremities and stasis dermatitis changes were noted over both lower legs along with chronic edematous changes.. Neuro: Cranial nerves II through XII are grossly intact, no focal motor deficits were noted, sensation to light touch and pinprick intact. Psych: Patient is alert and oriented x3, he does not appear anxious or depressed On 04/23/2019, we received approval for the patient to go to a care home facility for short-term care, he was discharged on that date in stable condition. - Physical Exam Vitals/I&O's: Vital Signs Temp Pulse Resp BP Pulse Ox 97.9 F 83 18 139/79 H 94 04/23/19 17:44 04/23/19 17:44 04/23/19 17:44 04/23/19 17:44 04/23/19 17:44 Oxygen Flow Rate (L/min) 2 Oxygen Delivery Method Nasal Cannula Weight: 167.512 kg Body Mass Index (BMI) 54.5 Finger Stick Blood Glucose 389 Intake and Output for Last 24 Hours 04/22/19 04/23/19 04/24/19 23:59 23:59 23:59 Intake Total 1148.75 / 1148.75 1190.5 / 1190.5 Balance 1148.75 / 1148.75 1190.5 / 1190.5 Microbiology Past 72 Hours 04/20/19 21:30 Wound Abcess - Leg, Left Gram Stain - Final 04/20/19 21:30 Wound Abcess - Leg, Left Wound Culture - Final Morganella morganii sp morgani Streptococcus group C Proteus mirabilis Laboratory Results 04/23/19 11:15: POC Glucose 228 H 04/23/19 17:39: POC Glucose 242 H Home Medications: Medications to take at Discharge Lisinopril [Zestril] 10 mg PO DAILY #30 tab 12/14/18 Tamsulosin HCl [Flomax] 0.4 mg PO DAILY #7 cap 02/28/19 Acetaminophen [Tylenol Tablet] 650 mg PO Q6H PRN PRN tab 04/23/19 Furosemide [Lasix] 40 mg PO BID@1000,1800 tab 04/23/19 Insulin NPH Human [Humulin N Pen] 20 units SUBCUT BIDCM #1 pen 04/23/19 Levofloxacin [Levaquin] 500 mg PO DAILY #10 tab 04/23/19 Levothyroxine [Synthroid] 100 mcg PO DAILY #1 tab 04/23/19 Metformin HCl 1,000 mg PO BID #1 tab 04/23/19 Nystatin Powder [Mycostatin Powder] 1 applic TOPICAL TID bottle 04/23/19 Potassium Chloride [K-Dur] 20 meq PO DAILYCM tab 04/23/19 Following Prescrptions Were Given to Patient: Insulin NPH Human [Humulin N Pen] 20 units SUBCUT BIDCM #1 pen Levofloxacin [Levaquin] 500 mg PO DAILY #10 tab Metformin HCl 1,000 mg PO BID #1 tab Levothyroxine [Synthroid] 100 mcg PO DAILY #1 tab Primary Care Physician: Vimal White DO [Primary Care Provider] - Disposition: [facility] facility Minutes spent on discharge:: 32 Patient Condition:: Stable Medical Necessity - Tobacco Use Smoking Status: Former smoker Tobacco Use: Cigarettes, Cigars, Chew, Pipe Meaningful Use Info Meaningful Use Diagnoses (Choose all that apply): None applicable Code Visit Inpatient E&M: 66892 Disch Hosp
== END 2019-04-23 18:13 | disposition skilled nursing facility (03) | DRG 383 ==
LOC: ED 15:18 → MS3 17:56
PROVIDERS: Emergency Provider Emergency Medicine; Family Provider Student in an Organized Health Care Education/Training Program; PCP Student in an Organized Health Care Education/Training Program; Visit Provider Internal Medicine
DX: L03.116 Cellulitis of left lower limb (principal); B96.89 Other specified bacterial agents as the cause of diseases classified elsewhere; E03.9 Hypothyroidism, unspecified; Z68.43 Body mass index [BMI] 50.0-59.9, adult; E66.01 Morbid (severe) obesity due to excess calories; I87.2 Venous insufficiency (chronic) (peripheral); L97.929 Non-pressure chronic ulcer of unspecified part of left lower leg with unspecified severity; R60.0 Localized edema; I10 Essential (primary) hypertension; E11.65 Type 2 diabetes mellitus with hyperglycemia; B95.4 Other streptococcus as the cause of diseases classified elsewhere; B96.4 Proteus (mirabilis) (morganii) as the cause of diseases classified elsewhere; Z91.19 Patient's noncompliance with other medical treatment and regimen; F32.9 Major depressive disorder, single episode, unspecified; Z79.84 Long term (current) use of oral hypoglycemic drugs
CPT/HCPCS: 36415; 73701; 80048; 80053; 82962; 83036; 84439; 84443; 84481; 85025; 87070; 87077; 87186; 87205; 87640; 93922; 97116; 97162; 97166; 97530; 97802; 99285; J7030; J7040; J7050; Q9967; A4216; J0295

== ENCOUNTER → 2019-08-12 05:00 | Outpatient (REF) | payer MEDICAID, SELFPAY ==
[2019-04-23 01:35] VITALS: BMI 55.5
[2019-08-12 07:52] LABS: Hematocrit 43.8 % (40-54); Mean Corpuscular Hgb 31.6 pg (27.0-32.0); Mean Corpuscular Volume 98.9 fL (80-94); Mean Platelet Vol. 10.1 fl (6.2-12.0); Platelet Count 154 K/mm3 (150-450); RBC Distribution Width CV 13.3 % (11.6-14.6); RBC Distribution Width SD 48.2 fl (35.1-43.9); Red Blood Count 4.43 M/mm3 (4.6-6.2)
[2019-08-12 08:26] LABS: Anion Gap 6 (5-15); BUN 10 mg/dL (7-18); BUN/Creat Ratio 14.6 RATIO (10-20); Calcium,Total 8.5 mg/dL (8.5-10.1); Chloride 97 mmol/L (98-107); Cholesterol 124 mg/dL (200); Creatinine, Serum 0.69 mg/dL (0.70-1.30); EST Glomerular Filtration Rate 128 mL/min (>60); Est Glom Filt Rate - Afr Amer 154 mL/min (>60); Glucose 138 mg/dL (74-106); High Density Lipoprotein 34 mg/dL; Potassium 4.2 mmol/L (3.5-5.1); Sodium Level 135 mmol/L (136-145); Triglycerides 167 mg/dL; Very Low Density Lipoprotein 33 mg/dL (5-40)
[2019-08-12 08:43] LABS: Hemoglobin A1c 6.1 % (4.2-6.3)
== END ==
LOC: OLS.WCC 05:00
PROVIDERS: PCP Student in an Organized Health Care Education/Training Program; Visit Provider Family Medicine
DX: E11.9 Type 2 diabetes mellitus without complications (principal); I10 Essential (primary) hypertension; E78.5 Hyperlipidemia, unspecified; E03.9 Hypothyroidism, unspecified; Z79.899 Other long term (current) drug therapy
CPT/HCPCS: 36415; 80048; 80061; 83036; 84443; 85027

== ENCOUNTER → 2019-09-24 05:00 | Outpatient (REF) | payer MEDICAID, SELFPAY ==
[2019-04-23 01:35] VITALS: BMI 55.5
== END ==
LOC: OLS.WCC 05:00
PROVIDERS: PCP Student in an Organized Health Care Education/Training Program; Visit Provider Family Medicine
DX: E03.9 Hypothyroidism, unspecified (principal)
CPT/HCPCS: 36415; 84443

== ENCOUNTER → 2019-11-03 05:00 | Outpatient (REF) | payer MEDICAID, SELFPAY ==
[2019-04-23 01:35] VITALS: BMI 55.5
[2019-11-03 08:19] LABS: Hematocrit 44.8 % (40-54); Hemoglobin 14.2 g/dL (13.0-16.5); Mean Corp Hgb Conc 31.7 g/dL (32-36); Mean Corpuscular Hgb 30.1 pg (27.0-32.0); Mean Corpuscular Volume 95.1 fL (80-94); Mean Platelet Vol. 10.8 fl (6.2-12.0); Platelet Count 170 K/mm3 (150-450); RBC Distribution Width CV 13.2 % (11.6-14.6); RBC Distribution Width SD 45.8 fl (35.1-43.9); Red Blood Count 4.71 M/mm3 (4.6-6.2); White Blood Count 10.5 K/mm3 (4.4-11.0)
[2019-11-03 08:43] LABS: Anion Gap 4 (5-15); BUN 9 mg/dL (7-18); Calcium,Total 8.7 mg/dL (8.5-10.1); Chloride 100 mmol/L (98-107); EST Glomerular Filtration Rate 149 mL/min (>60); Est Glom Filt Rate - Afr Amer 181 mL/min (>60); Glucose 87 mg/dL (74-106); Potassium 4.5 mmol/L (3.5-5.1); Sodium Level 136 mmol/L (136-145); Thyroid Stim Hormone (TSH) 6.58 uIU/mL (0.358-3.74)
== END ==
LOC: OLS.WCC 05:00
PROVIDERS: PCP Student in an Organized Health Care Education/Training Program; Visit Provider Family Medicine
DX: E03.9 Hypothyroidism, unspecified (principal); Z79.899 Other long term (current) drug therapy
CPT/HCPCS: 36415; 80048; 84443; 85027

== ENCOUNTER → 2019-11-22 10:20 | Outpatient (REF) | payer MEDICAID, SELFPAY ==
[2019-04-23 01:35] VITALS: BMI 55.5
== END ==
LOC: OLS.WCC 10:20
PROVIDERS: PCP Student in an Organized Health Care Education/Training Program; Visit Provider Family Medicine
DX: Z11.59 Encounter for screening for other viral diseases (principal)
CPT/HCPCS: 87635; U0003

== ENCOUNTER → 2019-12-13 04:00 | Outpatient (REF) | payer MEDICAID, SELFPAY ==
[2019-04-23 01:35] VITALS: BMI 55.5
[2019-12-13 08:21] LABS: Thyroid Stim Hormone (TSH) 2.86 uIU/mL (0.358-3.74)
== END ==
LOC: OLS.WCC 04:00
PROVIDERS: PCP Student in an Organized Health Care Education/Training Program; Referring Provider Family Medicine; Visit Provider Family Medicine
DX: E03.9 Hypothyroidism, unspecified (principal); Z79.899 Other long term (current) drug therapy
CPT/HCPCS: 36415; 84436; 84443

== ENCOUNTER → 2020-02-03 05:00 | Outpatient (REF) | payer MEDICAID, SELFPAY ==
[2019-04-23 01:35] VITALS: BMI 55.5
[2020-02-03 09:07] LABS: Hematocrit 42.9 % (40-54); Hemoglobin 13.4 g/dL (13.0-16.5); Mean Corp Hgb Conc 31.2 g/dL (32-36); Mean Platelet Vol. 10.9 fl (6.2-12.0); Platelet Count 167 K/mm3 (150-450); RBC Distribution Width CV 14.3 % (11.6-14.6); RBC Distribution Width SD 49.9 fl (35.1-43.9); Red Blood Count 4.47 M/mm3 (4.6-6.2); White Blood Count 11.1 K/mm3 (4.4-11.0)
[2020-02-03 09:12] LABS: Scan Indicated on CBC? Y/N NO
[2020-02-03 09:26] LABS: Anion Gap 3 (5-15); BUN 12 mg/dL (7-18); BUN/Creat Ratio 20.3 RATIO (10-20); Calcium,Total 8.3 mg/dL (8.5-10.1); Chloride 102 mmol/L (98-107); Cholesterol 110 mg/dL (200); Creatinine, Serum 0.59 mg/dL (0.70-1.30); EST Glomerular Filtration Rate 152 mL/min (>60); Est Glom Filt Rate - Afr Amer 183 mL/min (>60); Glucose 115 mg/dL (74-106); High Density Lipoprotein 30 mg/dL; Sodium Level 137 mmol/L (136-145); Thyroid Stim Hormone (TSH) 6.74 uIU/mL (0.358-3.74); Triglycerides 102 mg/dL; Very Low Density Lipoprotein 20 mg/dL (5-40)
[2020-02-03 09:43] LABS: Hemoglobin A1c 6.8 % (3.8-5.6)
== END ==
LOC: OLS.WCC 05:00
PROVIDERS: PCP Student in an Organized Health Care Education/Training Program; Visit Provider Family Medicine
DX: E11.9 Type 2 diabetes mellitus without complications (principal); I10 Essential (primary) hypertension; E78.5 Hyperlipidemia, unspecified; E03.9 Hypothyroidism, unspecified; Z79.899 Other long term (current) drug therapy
CPT/HCPCS: 36415; 80048; 80061; 83036; 84443; 85027

== ENCOUNTER → 2020-02-16 13:30 | Outpatient (REF) | payer MEDICAID, SELFPAY ==
[2019-04-23 01:35] VITALS: BMI 55.5
== END ==
LOC: OLS.WCC 13:30
PROVIDERS: PCP Student in an Organized Health Care Education/Training Program; Referring Provider Family Medicine; Visit Provider Family Medicine
DX: Z20.828 Contact with and (suspected) exposure to other viral communicable diseases (principal)
CPT/HCPCS: 87635; U0003

== ENCOUNTER → 2020-02-23 20:05 | Outpatient (REF) | payer MEDICAID, SELFPAY ==
[2019-04-23 01:35] VITALS: BMI 55.5
== END ==
LOC: OLS.WCC 20:05
PROVIDERS: PCP Student in an Organized Health Care Education/Training Program; Referring Provider Family Medicine; Visit Provider Family Medicine
DX: Z20.828 Contact with and (suspected) exposure to other viral communicable diseases (principal)
CPT/HCPCS: 87635; U0003

== ENCOUNTER → 2020-03-08 13:15 | Outpatient (REF) | payer MEDICAID, SELFPAY ==
[2019-04-23 01:35] VITALS: BMI 55.5
== END ==
LOC: LABSPEC 13:15
PROVIDERS: PCP Student in an Organized Health Care Education/Training Program; Referring Provider Family Medicine; Visit Provider Family Medicine
DX: Z20.828 Contact with and (suspected) exposure to other viral communicable diseases (principal)
CPT/HCPCS: 87635; U0003

== ENCOUNTER → 2020-03-15 12:58 | Outpatient (REF) | payer MEDICAID, SELFPAY ==
[2019-04-23 01:35] VITALS: BMI 55.5
== END ==
LOC: OLS.WCC 12:58
PROVIDERS: PCP Student in an Organized Health Care Education/Training Program; Visit Provider Family Medicine
DX: Z20.828 Contact with and (suspected) exposure to other viral communicable diseases (principal)
CPT/HCPCS: 87635; U0003

== ENCOUNTER → 2020-03-16 15:20 | Outpatient (REF) | payer MEDICAID, SELFPAY ==
[2019-04-23 01:35] VITALS: BMI 55.5
[2020-03-16 17:35] LABS: T4 Free Direct 1.12 ng/dL (0.76-1.46); Thyroid Stim Hormone (TSH) 9.13 uIU/mL (0.358-3.74)
== END ==
LOC: OLS.WCC 15:20
PROVIDERS: PCP Student in an Organized Health Care Education/Training Program; Referring Provider Family Medicine; Visit Provider Family Medicine
DX: E03.9 Hypothyroidism, unspecified (principal)
CPT/HCPCS: 84439; 84443

== ENCOUNTER → 2020-04-05 14:15 | Outpatient (REF) | payer MEDICAID, SELFPAY ==
[2019-04-23 01:35] VITALS: BMI 55.5
== END ==
LOC: OLS.WCC 14:15
PROVIDERS: PCP Student in an Organized Health Care Education/Training Program; Visit Provider Family Medicine
DX: Z20.828 Contact with and (suspected) exposure to other viral communicable diseases (principal)
CPT/HCPCS: 87635; U0003

== ENCOUNTER → 2020-04-10 12:15 | Outpatient (REF) | payer MEDICAID, SELFPAY ==
[2019-04-23 01:35] VITALS: BMI 55.5
== END ==
LOC: OLS.WCC 12:15
PROVIDERS: PCP Student in an Organized Health Care Education/Training Program; Visit Provider Family Medicine
DX: Z20.828 Contact with and (suspected) exposure to other viral communicable diseases (principal)
CPT/HCPCS: 87635; U0003

== ENCOUNTER → 2020-04-17 11:57 | Outpatient (REF) | payer MEDICAID, SELFPAY ==
[2019-04-23 01:35] VITALS: BMI 55.5
== END ==
LOC: OLS.WCC 11:57
PROVIDERS: PCP Student in an Organized Health Care Education/Training Program; Visit Provider Family Medicine
DX: Z20.828 Contact with and (suspected) exposure to other viral communicable diseases (principal)
CPT/HCPCS: 87635; U0003

== ENCOUNTER → 2020-04-20 12:15 | Outpatient (REF) | payer MEDICAID, SELFPAY ==
[2019-04-23 01:35] VITALS: BMI 55.5
== END ==
LOC: OLS.WCC 12:15
PROVIDERS: PCP Student in an Organized Health Care Education/Training Program; Visit Provider Family Medicine
DX: Z20.828 Contact with and (suspected) exposure to other viral communicable diseases (principal)
CPT/HCPCS: 87635; U0003

== ENCOUNTER → 2020-05-05 05:00 | Outpatient (REF) | payer MEDICAID, SELFPAY ==
[2019-04-23 01:35] VITALS: BMI 55.5
[2020-05-05 09:01] LABS: Hematocrit 42.4 % (40-54); Hemoglobin 13.2 g/dL (13.0-16.5); Mean Corp Hgb Conc 31.1 g/dL (32-36); Mean Corpuscular Hgb 29.5 pg (27.0-32.0); Mean Corpuscular Volume 94.6 fL (80-94); Mean Platelet Vol. 11.1 fl (6.2-12.0); Platelet Count 153 K/mm3 (150-450); RBC Distribution Width CV 14.3 % (11.6-14.6); RBC Distribution Width SD 49.7 fl (35.1-43.9); Red Blood Count 4.48 M/mm3 (4.6-6.2); White Blood Count 11.1 K/mm3 (4.4-11.0)
[2020-05-05 09:16] LABS: Anion Gap 4 (5-15); BUN 11 mg/dL (7-18); BUN/Creat Ratio 15.5 RATIO (10-20); Calcium,Total 8.5 mg/dL (8.5-10.1); Chloride 100 mmol/L (98-107); Creatinine, Serum 0.71 mg/dL (0.70-1.30); EST Glomerular Filtration Rate 123 mL/min (>60); Est Glom Filt Rate - Afr Amer 148 mL/min (>60); Glucose 170 mg/dL (74-106); Potassium 4.1 mmol/L (3.5-5.1); Sodium Level 135 mmol/L (136-145)
== END ==
LOC: OLS.WCC 05:00
PROVIDERS: PCP Student in an Organized Health Care Education/Training Program; Visit Provider Family Medicine
DX: I10 Essential (primary) hypertension (principal); Z79.899 Other long term (current) drug therapy
CPT/HCPCS: 36415; 80048; 85027

== ENCOUNTER → 2020-07-28 05:00 | Outpatient (REF) | payer MEDICAID, SELFPAY ==
[2019-04-23 01:35] VITALS: BMI 55.5
[2020-07-28 07:48] LABS: Hemoglobin 13.5 g/dL (13.0-16.5); Mean Corp Hgb Conc 32.1 g/dL (32-36); Mean Corpuscular Hgb 29.8 pg (27.0-32.0); Mean Corpuscular Volume 92.7 fL (80-94); Mean Platelet Vol. 11.2 fl (6.2-12.0); Platelet Count 187 K/mm3 (150-450); RBC Distribution Width CV 14.2 % (11.6-14.6); RBC Distribution Width SD 47.4 fl (35.1-43.9); Red Blood Count 4.53 M/mm3 (4.6-6.2); White Blood Count 11.5 K/mm3 (4.4-11.0)
[2020-07-28 08:24] LABS: Anion Gap 5 (5-15); BUN 11 mg/dL (7-18); Calcium,Total 8.7 mg/dL (8.5-10.1); Chloride 98 mmol/L (98-107); Cholesterol 123 mg/dL (200); Creatinine, Serum 0.69 mg/dL (0.70-1.30); EST Glomerular Filtration Rate 127 mL/min (>60); Est Glom Filt Rate - Afr Amer 154 mL/min (>60); Glucose 166 mg/dL (74-106); High Density Lipoprotein 32 mg/dL; Potassium 3.9 mmol/L (3.5-5.1); Sodium Level 133 mmol/L (136-145); Triglycerides 152 mg/dL; Very Low Density Lipoprotein 30 mg/dL (5-40)
[2020-07-28 09:14] LABS: Hemoglobin A1c 8.6 % (3.8-5.6)
== END ==
LOC: OLS.WCC 05:00
PROVIDERS: PCP Student in an Organized Health Care Education/Training Program; Visit Provider Family Medicine
DX: E11.9 Type 2 diabetes mellitus without complications (principal); E03.9 Hypothyroidism, unspecified; Z79.899 Other long term (current) drug therapy
CPT/HCPCS: 36415; 80048; 80061; 83036; 84443; 85027

== ENCOUNTER → 2020-10-25 05:00 | Outpatient (REF) | payer MEDICAID, SELFPAY ==
[2019-04-23 01:35] VITALS: BMI 55.5
[2020-10-25 08:07] LABS: Hemoglobin 13.4 g/dL (13.0-16.5); Mean Corp Hgb Conc 31.2 g/dL (32-36); Mean Corpuscular Hgb 29.6 pg (27.0-32.0); Mean Corpuscular Volume 94.9 fL (80-94); Platelet Count 169 K/mm3 (150-450); RBC Distribution Width CV 13.8 % (11.6-14.6); RBC Distribution Width SD 48.2 fl (35.1-43.9); Red Blood Count 4.53 M/mm3 (4.6-6.2); White Blood Count 11.3 K/mm3 (4.4-11.0)
[2020-10-25 08:24] LABS: Anion Gap 6 (5-15); BUN 8 mg/dL (7-18); BUN/Creat Ratio 12.3 RATIO (10-20); Calcium,Total 8.6 mg/dL (8.5-10.1); Chloride 96 mmol/L (98-107); Creatinine, Serum 0.65 mg/dL (0.70-1.30); EST Glomerular Filtration Rate 135 mL/min (>60); Est Glom Filt Rate - Afr Amer 163 mL/min (>60); Glucose 235 mg/dL (74-106); Potassium 4.3 mmol/L (3.5-5.1); Sodium Level 133 mmol/L (136-145)
[2020-10-25 08:28] LABS: Hemoglobin A1c 9.1 % (3.8-5.6)
== END ==
LOC: OLS.WCC 05:00
PROVIDERS: PCP Student in an Organized Health Care Education/Training Program; Visit Provider Family Medicine
DX: E11.9 Type 2 diabetes mellitus without complications (principal); I10 Essential (primary) hypertension; E03.9 Hypothyroidism, unspecified; Z79.899 Other long term (current) drug therapy
CPT/HCPCS: 36415; 80048; 83036; 85027

== ENCOUNTER → 2021-01-15 05:00 | Outpatient (REF) | payer MEDICAID, SELFPAY ==
[2019-04-23 01:35] VITALS: BMI 55.5
[2021-01-15 08:35] LABS: Hematocrit 41.8 % (40-54); Hemoglobin 13.3 g/dL (13.0-16.5); Mean Corp Hgb Conc 31.8 g/dL (32-36); Mean Corpuscular Hgb 29.8 pg (27.0-32.0); Mean Corpuscular Volume 93.7 fL (80-94); Mean Platelet Vol. 11.1 fl (6.2-12.0); Platelet Count 168 K/mm3 (150-450); RBC Distribution Width CV 14.2 % (11.6-14.6); RBC Distribution Width SD 48.5 fl (35.1-43.9); Red Blood Count 4.46 M/mm3 (4.6-6.2); White Blood Count 13.2 K/mm3 (4.4-11.0)
[2021-01-15 09:06] LABS: Anion Gap 5 (5-15); BUN 10 mg/dL (7-18); BUN/Creat Ratio 14.1 RATIO (10-20); Calcium,Total 8.5 mg/dL (8.5-10.1); Chloride 97 mmol/L (98-107); Creatinine, Serum 0.71 mg/dL (0.70-1.30); EST Glomerular Filtration Rate 123 mL/min (>60); Est Glom Filt Rate - Afr Amer 149 mL/min (>60); Glucose 235 mg/dL (74-106); Potassium 4.1 mmol/L (3.5-5.1); Sodium Level 133 mmol/L (136-145); Thyroid Stim Hormone (TSH) 2.78 uIU/mL (0.358-3.74); Troponin-I HS 12.5 pg/mL (3.0-78.5)
== END ==
LOC: OLS.WCC 05:00
PROVIDERS: PCP Student in an Organized Health Care Education/Training Program; Visit Provider Family Medicine
DX: I10 Essential (primary) hypertension (principal); E03.9 Hypothyroidism, unspecified; Z79.899 Other long term (current) drug therapy
CPT/HCPCS: 36415; 80048; 84443; 84484; 85027

== ENCOUNTER 2021-01-18 09:41 | Inpatient (IN) | payer MEDICAID, SELFPAY ==
[2019-04-23 01:35] VITALS: BMI 55.5
[2021-01-18] VITALS (28 sets, daily range): BP systolic 100–149; BP diastolic 44–107; PULSE 9–185; RESP 14–30; TEMP 35.5–37.3; O2SAT 88–100; BMI 51.2; BMI 50.4
--- NOTE | 2021-01-18 09:49 | EKG12_ITS ---
Test Reason : CHEST PAIN Blood Pressure : / mmHG Vent. Rate : 122 BPM Atrial Rate : 100 BPM P-R Int : 176 ms QRS Dur : 092 ms QT Int : 352 ms P-R-T Axes : 043 020 050 degrees QTc Int : 501 ms Sinus rhythm with frequent and consecutive Premature ventricular complexes Nonspecific ST abnormality Abnormal ECG Confirmed by ETHAN HODGES, PARK ([id number]), food editor ELODIA FARRAR ([id number]) on 01/22/2021 9:11:42 AM Referred By: STEPHEN Confirmed By:JODY LONG MD
--- NOTE | 2021-01-18 09:58 | EDS_ITS ---
HPI History of Present Illness Chief Complaint: Chest Pain Informant: patient Onset/Context/Timing Onset: Today Activity at onset: gradual Timing: Continuous Quality: Positive for Tightness Location: Substernal Worsened By: Nothing Relieved By: Nothing Associated Symptoms: Positive for Nausea, Diaphoresis, Dyspnea and Lightheadedness; Negative for Vomiting, Cough, Fever, Acid Reflux and Palpitations Narrative Narrative: Patient presents with chest pain and shortness of breath that began today. Patient states he was at rest when the pain began. Patient describes it as a tightness. Patient states it is over the substernal area. Patient states nothing makes it better nothing makes it worse. Patient denies any fevers or chills. Patient admits to some diaphoresis with the pain. Patient admits to nausea but denies any vomiting. Patient also admits to some lightheadedness. [facility] Medical History (Updated 01/18/21 @ 13:[address] Alex Mccray, DO) Asthma Diabetes Hypertension Hypothyroidism Home Medications lisinopril 10 mg PO DAILY #30 tab 12/14/18 [Rx Last Taken 04/19/19] tamsulosin 0.4 mg PO DAILY #7 cap 02/28/19 [Rx Last Taken 04/20/19] acetaminophen 650 mg PO Q6H PRN PRN tab 04/23/19 [Rx Last Taken Unknown] furosemide 40 mg PO BID@1000,1800 tab 04/23/19 [Rx Last Taken Unknown] insulin NPH isoph U-100 human 20 units SUBCUT BIDCM #1 pen 04/23/19 [Rx Last Taken Unknown] levofloxacin 500 mg PO DAILY #10 tab 04/23/19 [Rx Last Taken Unknown] metformin 1,000 mg PO BID #1 tab 04/23/19 [Rx Last Taken Unknown] nystatin 1 applic TOPICAL TID bottle 04/23/19 [Rx Last Taken Unknown] potassium chloride 20 meq PO DAILYCM tab 04/23/19 [Rx Last Taken Unknown] atorvastatin 10 mg PO DAILY 01/18/21 [History Last Taken Unknown] citalopram 20 mg PO DAILY 01/18/21 [History Last Taken Unknown] dulaglutide [Trulicity] 3 mg SUBCUT QWEEK 01/18/21 [History Last Taken Unknown] duloxetine 60 mg PO DAILY 01/18/21 [History Last Taken Unknown] glipizide 5 mg PO DAILY 01/18/21 [History Last Taken Unknown] levothyroxine 200 mcg PO DAILY 01/18/21 [History Last Taken Unknown] mometasone-formoterol [Dulera] 2 puff INHALATION DAILY 01/18/21 [History Last Taken Unknown] omeprazole 40 mg PO DAILY 01/18/21 [History Last Taken Unknown] Allergy/AdvReac Type Severity Reaction Status Date / Time No Known Allergies Allergy Verified 04/20/19 14:41 Surgical History (Updated 01/18/21 @ 10:[address] Alex Mccray DO) History of thyroidectomy Social History Smoking Status: Unknown if ever smoked ROS ROS ED Constitutional Constitutional ED: Denies chills or fever(s) Eyes Eyes: Denies blurry vision or change in vision ENT ENT ED: Denies rhinorrhea or sore throat Cardiovascular Cardiovascular: Reports chest pain; Denies palpitations Respiratory/Chest Respiratory/Chest: Reports dyspnea; Denies cough Gastrointestinal Gastrointestinal: Reports nausea; Denies abdominal pain or vomiting Genitourinary Genitourinary ED: Denies dysuria or hematuria Musculoskeletal Musculoskeletal: Denies back pain or neck pain Integumentary Denies abscess or rash Neurologic Neurologic: Denies headache(s) or weakness Allergic/Immunologic Allergic/Immunologic ED: Denies mouth swelling or urticaria EXAM Physical Exam Const Vital Signs: 01/18/21 09:42 01/18/21 09:47 01/18/21 09:48 Temperature 96 F L Temperature Source Temporal Pulse Rate 111 H 118 H Respiratory Rate 20 H 19 H Respiratory Effort Short of Breath Labored Respiratory Pattern Tachypnea Blood Pressure 149/49 H 149/49 H Blood Pressure Mean 82 82 Blood Pressure Source Blood Pressure Position Blood Pressure Location Pulse Ox 96 97 Oxygen Delivery Method Nasal Cannula Nasal Cannula Oxygen Flow Rate (L/min) 6 6 01/18/21 09:49 01/18/21 09:56 01/18/21 10:07 Temperature Temperature Source Pulse Rate 185 H 115 H Respiratory Rate 18 20 H Respiratory Effort Respiratory Pattern Blood Pressure 139/107 H Blood Pressure Mean 117 Blood Pressure Source Monitor Blood Pressure Position Semi-Fowlers Blood Pressure Location Right Arm Pulse Ox 97 96 99 Oxygen Delivery Method Nasal Cannula Nasal Cannula Nasal Cannula Oxygen Flow Rate (L/min) 6 6 6 01/18/21 10:30 01/18/21 10:31 01/18/21 12:35 Temperature Temperature Source Pulse Rate 140 H 9 L 108 H Respiratory Rate 18 22 H 18 Respiratory Effort Respiratory Pattern Blood Pressure 146/93 H 101/70 122/87 H Blood Pressure Mean 110 80 98 Blood Pressure Source Monitor Blood Pressure Position Semi-Fowlers Blood Pressure Location Right Arm Pulse Ox 97 93 Oxygen Delivery Method Nasal Cannula Room Air Oxygen Flow Rate (L/min) 6 Positive well nourished, well developed and obese General Appearance ED: well developed Nutritional Appearance: obese HEENT normocephalic and atraumatic Eyes PERRL and EOMs intact bilaterally Neck supple and no JVD Chest Wall palpation of chest normal Resp normal respiratory effort and clear to auscultation bilaterally Effort and Inspection: Negative for respiratory distress Cardio regular rate Rhythm: abnormal rhythm regularly irregular GI normal to inspection, nondistended, normoactive bowel sounds, soft to palpation, non-tender and non-distended Extremity normal to inspection General Extremety ED: Negative for edema or tenderness General Extremity: Negative for edema Neuro oriented x3, CN's II-XII intact bilaterally and no sensory deficits noted Sensorium / Orientation: awake and alert Motor Exam: strength 5/5 throughout Psych mental status grossly normal Heart Score History: Moderately Suspicious ECG: Nonspecific Repolarization Age: >45 - <65 years Risk Factors: 1 or 2 Risk Factors Troponin: </= Normal Limit Score: 4 MDM MDM MDM Narrative Medical decision making narrative: EKG was obtained. On my interpretation, it showed sinus tachycardia with runs of ventricular tachycardia. There are no acute ST or T wave changes noted. CBC and basic metabolic profile were obtained and were essentially within normal limits. Leukos was elevated at 275. White blood cell count was 11.3. PT with INR and PTT were normal. High-sensitivity troponin was normal at 10.1. Portable chest x-ray was obtained. There is 1 view. On my interpretation, there is evidence of congestive heart failure. There is left basilar atelectasis. Bony thorax is normal. There is borderline cardiomegaly. Radiologist also interpreted the x-ray and agrees. Patient was having longer runs of ventricular tachycardia. Patient was given bolus of amiodarone 150 mg and started on amiodarone drip. Patient was still having persistent runs of ventricular tachycardia and a repeat bolus of amiodarone 150 mg was given. Patient's PVCs decreased down to couplets and triplets. BNP was ordered and is slightly elevated at 222. Patient was given a dose of Lasix. Case was discussed with the hospitalist. He will admit the patient to ICU. He requested I discussed the case with cardiology. Case was discussed with Dr. Rodriguez. He did not have any further recommendations. He will follow the patient in the ICU. Patient understood and was agreeable with the plan. All questions were answered. Lab Data Attestation: I reviewed the patient's lab results. Labs: Laboratory Results - last 24 hr 01/18/21 01/18/21 01/18/21 09:45 09:45 09:45 WBC 11.3 H RBC 4.75 Hgb 14.3 Hct 44.3 MCV 93.3 MCH 30.1 MCHC 32.3 RDW Std Deviation 48.5 H RDW Coeff of Jovany 14.3 Plt Count 152 MPV 10.7 Immature Gran % (Auto) 0.600 Neut % (Auto) 74.0 H Lymph % (Auto) 16.2 L [place] % (Auto) 4.7 Eos % (Auto) 4.0 Baso % (Auto) 0.5 Absolute Neuts (auto) 8.4 H Absolute Lymphs (auto) 1.83 Nucleated RBC % 0 PT INR APTT Sodium 133 L Potassium 4.2 Chloride 95 L Carbon Dioxide 30.0 Anion Gap 8 BUN 20 H Creatinine 0.97 Estim Creat Clear Calc 94.44 Est GFR (MDRD) Af Amer 103 Est GFR (MDRD) Non-Af 85 BUN/Creatinine Ratio 20.6 H Glucose 275 H Calcium 8.6 Troponin I High Sens 10.1 B-Natriuretic Peptide 222.0 H 01/18/21 01/18/21 10:00 11:35 WBC RBC Hgb Hct MCV MCH MCHC RDW Std Deviation RDW Coeff of Jovany Plt Count MPV Immature Gran % (Auto) Neut % (Auto) Lymph % (Auto) [place] % (Auto) Eos % (Auto) Baso % (Auto) Absolute Neuts (auto) Absolute Lymphs (auto) Nucleated RBC % PT 13.9 INR 1.1 APTT 30.8 Sodium Potassium Chloride Carbon Dioxide Anion Gap BUN Creatinine Estim Creat Clear Calc Est GFR (MDRD) Af Amer Est GFR (MDRD) Non-Af BUN/Creatinine Ratio Glucose Calcium Troponin I High Sens 12.1 B-Natriuretic Peptide Radiography Chest X-Ray - ED: 1 View, Read by ED Physician, Read by Radiologist and CHF Diagnostic Testing: Radiology Impression Chest X-Ray 01/18/21 10:15 IMPRESSION: Findings in keeping with CHF and left basilar atelectasis. Electronically Signed: Hernando Cook MD at 10:32 EDT , Service support , EKG Initial EKG: Attestation: I personally reviewed and interpreted this EKG as follows: Interpretation: Sinus Tachycardia (122 with 4 beat runs of ventricular tachycardia) and Non-Specific ST Changes Prior EKG tracings: available for review Prior: Changed (The episodes of ventricular tachycardia are new compared to prior EKG, otherwise there are no changes from previous EKG) Treatment and Re-Evaluation Vital Sign Attestation:: Vital signs were reviewed prior to admission. Patient's heart rate is improved but is still tachycardic at 108. Critical Care Time Critical Care Time: Yes Critical care time (excluding procedures): 30-74 minutes (37), Including time spent:, Discussing w/Patient &/or Family/Manager Requirements, Discussing w/Consultants, Arranging Admission or Transfer and Performing Direct Patient Care at Bedside Discharge Plan Dx/Rx/DC Orders Clinical Impression: Ventricular tachycardia Disposition Disposition: Acute Care [facility]
[2021-01-18 10:01] LABS: Absolute Lymphocyte Count 1.83 X10^3/uL (0.83-4.51); Absolute Neutrophil Count 8.4 X10^3/uL (2.0-7.7); Basophil# 0.06 X10^3/uL; Basophil% 0.5 % (0-1); Eosinophil# 0.45 X10^3/uL; Hematocrit 44.3 % (40-54); Hemoglobin 14.3 g/dL (13.0-16.5); Lymphocyte # 1.83 X10^3/ul (0.83-4.51); Lymphocyte % 16.2 % (19-41); Mean Corp Hgb Conc 32.3 g/dL (32-36); Mean Corpuscular Hgb 30.1 pg (27.0-32.0); Mean Corpuscular Volume 93.3 fL (80-94); Mean Platelet Vol. 10.7 fl (6.2-12.0); Monocyte# 0.53 X10^3/uL; Monocyte% 4.7 % (0-10); NRBC Flagged by Analyzer 0 % (0-5); Neutrophil # 8.37 X10^3/uL (2.7-7.7); Platelet Count 152 K/mm3 (150-450); RBC Distribution Width CV 14.3 % (11.6-14.6); RBC Distribution Width SD 48.5 fl (35.1-43.9); Red Blood Count 4.75 M/mm3 (4.6-6.2); White Blood Count 11.3 K/mm3 (4.4-11.0)
[2021-01-18] MEDS: Amiodarone 360 MG in Dextrose 5% Viaflo Bag 192.8 ML 33.3 MG CONT INF (10:07)
[2021-01-18 10:13] LABS: International Normalized Ratio 1.1; Prothrombin Time (Protime)PT. 13.9 SECONDS (11.7-14.9)
[2021-01-18 10:14] LABS: Partial Thromboplast Time 30.8 Seconds (24.1-36.2)
--- NOTE | 2021-01-18 10:15 | RAD_ITS ---
STUDY: X-RAY CHEST REASON FOR EXAM: Male, 55 years old. Chest pain. Shortness of breath. TECHNIQUE: Single AP portable view of the chest. COMPARISON: Comparison is made with prior study dated 12/14/2018. FINDINGS: EKG electrodes are seen. There is evidence of vascular congestion and mild CHF. There is elevation of the left hemidiaphragm with evidence of atelectasis at the left lung base. There is borderline cardiomegaly. Normal mediastinum and kalia. Normal visualized pulmonary arteries. Normal visualized aortic arch and descending thoracic aorta. There are diffuse degenerative changes of the visualized thoracic spine. Normal visualized ribs, clavicles, and shoulders. There is no demonstrated abnormality of the visualized soft tissue structures of the upper abdomen. RAD/Chest 1 View (Portable) IMPRESSION: Findings in keeping with CHF and left basilar atelectasis. Electronically Signed: Hernando Cook MD at 10:32 EDT , Service support ,
[2021-01-18 10:19] LABS: Anion Gap 8 (5-15); BUN 20 mg/dL (7-18); BUN/Creat Ratio 20.6 RATIO (10-20); Calcium,Total 8.6 mg/dL (8.5-10.1); Chloride 95 mmol/L (98-107); Creatinine, Serum 0.97 mg/dL (0.70-1.30); EST Glomerular Filtration Rate 85 mL/min (>60); Est Glom Filt Rate - Afr Amer 103 mL/min (>60); Estimated Creatinine Clearance 94.44 ml/min; Glucose 275 mg/dL (74-106); Potassium 4.2 mmol/L (3.5-5.1); Sodium Level 133 mmol/L (136-145); Troponin-I HS 10.1 pg/mL (3.0-78.5)
--- NOTE | 2021-01-18 10:32 | ED.RN ---
iv push amio trevor and second dose, pushed by елена cantu, per verbal orders.
[2021-01-18 11:59] LABS: Troponin-I HS 12.1 pg/mL (3.0-78.5)
[2021-01-18] MEDS: Furosemide 40 MG/4 ML Vial IV ×2 (12:35→18:09)
--- NOTE | 2021-01-18 13:31 | ED.RN ---
PT REPORT CALLED TO ICU BY THIS RN.
--- NOTE | 2021-01-18 13:35 | HP.PCM.HOS_ITS ---
HPI - General HPI Narrative ZAK HOYT, is a 55 M with known history of COPD, HFpEF, EF 60% on last echo 12/03/2018 came to ER from [facility] with shortness of breath and intermittent chest pressure for last 1 week. Patient states he has been short of breath for 1 year progressively getting worse to minimal exertion. He described chest pain as right to midsternal, tightness, localized without radiation which is more frequent on exertion, every few days. No fever or chills. No new cough or fever. The EMS found intermittent 4 beats of ventricular beats and in the ER patient had long runs of V. tach. Patient also has generalized swelling of lower extremities and is morbidly obese on 40 mg Lasix twice daily. Twelve-lead EKG shows sinus rhythm with 4 beats of intermittent ventricular rhythm. Previous EKG 12/14/2018 shows normal sinus rhythm, low voltage with nonspecific ST-T abnormalities. Chest x-ray suggestive of pulmonary venous congestion. BNP elevated. ER physician started on amiodarone drip and disk operator notified. [facility] Medical History (Updated 01/18/21 @ 13:[address] Marcellus Gunn MD) Asthma COPD exacerbation Diabetes Hypertension Hypothyroidism Home Medications lisinopril 10 mg PO DAILY #30 tab 12/14/18 [Rx Last Taken 04/19/19] tamsulosin 0.4 mg PO DAILY #7 cap 02/28/19 [Rx Last Taken 04/20/19] acetaminophen 650 mg PO Q6H PRN PRN tab 04/23/19 [Rx Last Taken Unknown] furosemide 40 mg PO BID@1000,1800 tab 04/23/19 [Rx Last Taken Unknown] insulin NPH isoph U-100 human 20 units SUBCUT BIDCM #1 pen 04/23/19 [Rx Last Taken Unknown] levofloxacin 500 mg PO DAILY #10 tab 04/23/19 [Rx Last Taken Unknown] metformin 1,000 mg PO BID #1 tab 04/23/19 [Rx Last Taken Unknown] nystatin 1 applic TOPICAL TID bottle 04/23/19 [Rx Last Taken Unknown] potassium chloride 20 meq PO DAILYCM tab 04/23/19 [Rx Last Taken Unknown] atorvastatin 10 mg PO DAILY 01/18/21 [History Last Taken Unknown] citalopram 20 mg PO DAILY 01/18/21 [History Last Taken Unknown] dulaglutide [Trulicity] 3 mg SUBCUT QWEEK 01/18/21 [History Last Taken Unknown] duloxetine 60 mg PO DAILY 01/18/21 [History Last Taken Unknown] glipizide 5 mg PO DAILY 01/18/21 [History Last Taken Unknown] levothyroxine 200 mcg PO DAILY 01/18/21 [History Last Taken Unknown] mometasone-formoterol [Dulera] 2 puff INHALATION DAILY 01/18/21 [History Last Taken Unknown] omeprazole 40 mg PO DAILY 01/18/21 [History Last Taken Unknown] Allergy/AdvReac Type Severity Reaction Status Date / Time No Known Allergies Allergy Verified 04/20/19 14:41 Surgical History History of thyroidectomy Social History Smoking Status: Unknown if ever smoked ROS ROS Narrative Constitutional: Reports fatigue and weakness, shortness of breath on minimal exertion. Generalized swelling HEENT: Reports systems reviewed and no addt'l complaints, except as documented Respiratory/Chest: Shortness of breath. Chest pain on exertion at rest Gastrointestinal: Denies coffee ground emesis, hematemesis or vomiting Genitourinary: Denies burning urination or new urinary tract symptoms Musculoskeletal: Mild arthritis in hip and knee joints. limited range of motion Neurologic: Denies seizure-like activity skin: On abdominal fold of his skin Endocrinology: Reports systems reviewed and no addt'l complaints, except as documented Hematologic/Lymphatic: Reports systems reviewed and no addt'l complaints, except as documented Rest 12 ROS are negative except as mentioned in HPI Vital Signs Vital Signs Vital Signs: 01/18/21 09:42 01/18/21 09:47 01/18/21 09:48 Temperature 96 F L Temperature Source Temporal Pulse Rate 111 H 118 H Respiratory Rate 20 H 19 H Respiratory Effort Short of Breath Labored Respiratory Pattern Tachypnea Blood Pressure 149/49 H 149/49 H Blood Pressure Mean 82 82 Blood Pressure Source Blood Pressure Position Blood Pressure Location Pulse Ox 96 97 Oxygen Delivery Method Nasal Cannula Nasal Cannula Oxygen Flow Rate (L/min) 6 6 01/18/21 09:49 01/18/21 09:56 01/18/21 10:07 Temperature Temperature Source Pulse Rate 185 H 115 H Respiratory Rate 18 20 H Respiratory Effort Respiratory Pattern Blood Pressure 139/107 H Blood Pressure Mean 117 Blood Pressure Source Monitor Blood Pressure Position Semi-Fowlers Blood Pressure Location Right Arm Pulse Ox 97 96 99 Oxygen Delivery Method Nasal Cannula Nasal Cannula Nasal Cannula Oxygen Flow Rate (L/min) 6 6 6 01/18/21 10:30 01/18/21 10:31 01/18/21 12:35 Temperature Temperature Source Pulse Rate 140 H 9 L 108 H Respiratory Rate 18 22 H 18 Respiratory Effort Respiratory Pattern Blood Pressure 146/93 H 101/70 122/87 H Blood Pressure Mean 110 80 98 Blood Pressure Source Monitor Blood Pressure Position Semi-Fowlers Blood Pressure Location Right Arm Pulse Ox 97 93 Oxygen Delivery Method Nasal Cannula Room Air Oxygen Flow Rate (L/min) 6 Weight Weight: 377 lb 6.902 oz Body Mass Index (BMI) 51.2 Physical Exam Narrative Physical exam General: Alert, Oriented x3, Cooperative morbid obese BMI 51.2 kg/m? HEENT: Atraumatic, PERRLA, EOMI, Normocephalic Oral: No Gingival or Mucosal Lesions/ Ulcerations. Oral mucosa dry. Neck: Supple, No JVD, Negative Carotid Bruits Lungs: Air entry diminished in all over. No wheezing but fine rales. Hypoxia. Cardiovascular: Sinus rhythm with NSVT, PVCs. Normal S1, Normal S2, No murmurs Abdomen: Bowel Sounds Present, Soft, Non Tender, Non-Distended. Fat abdomen : No renal angle tenderness. No suprapubic tenderness. Extremities: Bilateral lower extremity pitting edema. Capillary Refill Less than 3 Seconds Skin: Erythema/intertrigo over abdominal fat and groin. Macerated skin of the above toes. Musculoskeletal: No Tenderness to Palpation of Joints or Extremities Neurological: Cranial nerves II-XII grossly intact, Deep Tendon Reflexes 2+/4 and Symmetrical, Neuro grossly intact Psych/Mental Status: Normal Affect, Appropriate. Results Lab / Micro Data Result Diagrams: 01/18/21 09:45 01/18/21 09:45 Labs: Laboratory Results - last 24 hr 01/18/21 09:45: WBC 11.3 H, RBC 4.75, Hgb 14.3, Hct 44.3, MCV 93.3, MCH 30.1, MCHC 32.3, RDW Std Deviation 48.5 H, RDW Coeff of Jovany 14.3, Plt Count 152, MPV 10.7, Immature Gran % (Auto) 0.600, Neut % (Auto) 74.0 H, Lymph % (Auto) 16.2 L, [place] % (Auto) 4.7, Eos % (Auto) 4.0, Baso % (Auto) 0.5, Absolute Neuts (auto) 8.4 H, Absolute Lymphs (auto) 1.83, Nucleated RBC % 0 01/18/21 09:45: Sodium 133 L, Potassium 4.2, Chloride 95 L, Carbon Dioxide 30.0, Anion Gap 8, BUN 20 H, Creatinine 0.97, Estim Creat Clear Calc 94.44, Est GFR (MDRD) Af Amer 103, Est GFR (MDRD) Non-Af 85, BUN/Creatinine Ratio 20.6 H, Glucose 275 H, Calcium 8.6, Troponin I High Sens 10.1 01/18/21 09:45: B-Natriuretic Peptide 222.0 H 01/18/21 10:00: PT 13.9, INR 1.1, APTT 30.8 01/18/21 11:35: Troponin I High Sens 12.1 Radiology Impression Chest X-Ray 01/18/21 10:15 IMPRESSION: Findings in keeping with CHF and left basilar atelectasis. Electronically Signed: Hernando Cook MD at 10:32 EDT , Service support , Assessment & Plan Assessment/Plan (1) NSVT (nonsustained ventricular tachycardia): (2) Atypical chest pain: (3) Diabetes mellitus: QUALIFIERS: Diabetes mellitus type: type 2 Diabetes mellitus long distance operator insulin use: unspecified long distance operator insulin use status Diabetes mellitus complication status: with skin complications Diabetes mellitus complication detail: with other skin ulcer Qualified Code(s): E11.622 - Type 2 diabetes mellitus with other skin ulcer; L98.499 - Non-pressure chronic ulcer of skin of other sites with unspecified severity PLAN: ZAK HOYT, is a 55 M with known history of COPD, HFpEF, EF 60% on last echo 12/03/2018 came to ER from [facility] with shortness of breath and intermittent chest pressure for last 1 week Twelve-lead EKG shows sinus rhythm with 4 beats of intermittent ventricular rhythm. Previous EKG 12/14/2018 shows normal sinus rhythm, low voltage with nonspecific ST-T abnormalities. Chest x-ray suggestive of pulmonary venous congestion. BNP elevated. 1. Atypical chest pain with NSVT: Patient is being admitted in ICU on amiodarone drip. Patient agreeable to DC cardioversion if gets hemodynamically unstable for V. tach. Honey Blender consult. Serial hs-troponin enzymes. Repeat EKG. 2D echo today. Previous echo of November 2018 shows EF 60% with moderate concentric LVH and diastolic dysfunction. Last arterial study of March 2019 reported normal. 2. Acute hypoxic respiratory failure most recent COPD exacerbation and CHF exacerbation: ABG ordered. Patient chest pain/tightness might be pleuritic as it is more right-sided. BiPAP as needed. DuoNeb, Solu-Medrol, incentive spirometry and Pep. 3. Acute on chronic HFpEF/diastolic CHF exacerbation: Lasix 40 mg IV twice daily. Heart failure core measures including intake and output, fluid restricti on less than 1500 mL, daily weight monitoring, kidney and electrolytes monitoring. Continue lisinopril. Beta-mili once patient gets euvolemic and COPD exacerbation controlled. David wrap bandage. 4. Diabetes mellitus type 2, hypertension, hypothyroidism, anxiety and depression and morbid obesity: Accu-Cheks before meals and cover with Humalog sliding scale. Lantus 10 units subcutaneous twice daily. Glipizide 5 mg daily. Hold Metformin. DVT prophylaxis, high risk: Lovenox 40 mg subcu twice daily because of morbid obesity Living will/advanced directive/end of life care: Patient does not have living will or advanced directive. After discussion of benefits/risks procedures involved with full code, DNR CC arrest and DNR CC, the patient opted for full code Patient does want artificial life support including intubation, tube feed, ventilator and/chest compression, central venous catheter, vasopressor and DC shock if needed Total time spent in [id number] encounter in discussion of advanced directive 16 minutes. Charges/Coding Visit Charges Inpatient E&M: 56067 Init Hosp L3 Procedures Hospitalists Procedures: 48424 Advncd Care Plan 30 Min
--- NOTE | 2021-01-18 14:04 | EKG12_ITS ---
Test Reason : AM EKG Blood Pressure : / mmHG Vent. Rate : 069 BPM Atrial Rate : 069 BPM P-R Int : 190 ms QRS Dur : 098 ms QT Int : 418 ms P-R-T Axes : 015 010 031 degrees QTc Int : 447 ms Normal sinus rhythm Normal ECG Confirmed by BREANNA HODGES, MONET ([id number]), editorial director ELODIA FARRAR ([id number]) on 01/26/2021 9:11:25 AM Referred By: DR BRUNO Confirmed By:MONET CARLOS MD
--- NOTE | 2021-01-18 14:04 | ECHOCS_ITS ---
Reason For Study: Arrhythmia Procedure This was a 2D Doppler, Color Flow transthoracic echocardiogram. The study was technically difficult. Contrast injection was performed. Exam performed portable in ICU/CCU. Left Ventricle Based upon the 2D echocardiographic and contrast enhanced images obtained appears to be grossly normal left ventricular size, wall motion, and systolic function. The estimated ejection fraction is 60 %. Diastolic function is indeterminate. Right Ventricle Based upon the 2D echocardiographic images obtained there appears to be grossly normal right ventricular size and systolic function. Atria The left atrium is mildly enlarged. Normal right atrium. No doppler evidence for ASD. Mitral Valve There is no mitral annular calcification. Normal mitral valve. Trivial mitral valve insufficiency. Tricuspid Valve Normal tricuspid valve. Trivial tricuspid valve insufficiency. Unable to estimate RV systolic pressure/pulmonary artery pressure due to technically difficult study. Aortic Valve Trisinus/trileaflet aortic valve. Mild focal aortic valve calcification. Pulmonic Valve The pulmonic valve is not well visualized. Great Vessels Normal sized aortic root. Pericardium/Pleural No pericardial effusion. Medication Diluted definity 2ml given slow IV push to enhance endocardial definition. MMode/2D Measurements & Calculations LVIDd: 6.0 cm IVSd: 1.3 cm Ao root diam: 3.5 cm LVIDs: 4.4 cm LVPWd: 1.5 cm RVDd: 3.4 cm FS: 25.9 % LAV(MOD-bp): 66.7 ml LVAd ap4: 41.0 cm2 SV(MOD-sp4): 108.1 ml LAV(MOD-bp) Indexed: 23.9 ml/m2 LVLd ap4: 8.6 cm LAV(MOD-sp2): 65.8 ml EDV(MOD-sp4): 159.8 ml LAV(MOD-sp4): 64.1 ml EDV(sp4-el): 165.0 ml LVAs ap4: 20.7 cm2 LVLs ap4: 6.9 cm ESV(MOD-sp4): 51.7 ml ESV(sp4-el): 52.7 ml EF(MOD-sp4): 67.7 % EF(sp4-el): 68.0 % SV(sp4-el): 112.3 ml LA A4 area: 24.6 cm2 LA dimension(2D): 4.4 cm RA A4 area: 20.7 cm2 Doppler Measurements & Calculations MV E max navin: 91.1 cm/sec Lat Peak E' Navin: 8.4 cm/sec Med Peak E' Navin: 9.3 cm/sec MV A max navin: 87.3 cm/sec E/E' lat: 10.8 E/E' med: 9.8 MV E/A: 1.0 Ao V2 max: 173.7 cm/sec LV V1 max: 130.3 cm/sec PA V2 max: 128.9 cm/sec Ao max P.1 mmHg LV V1 max P.8 mmHg Ao V2 mean: 121.8 cm/sec Ao mean P.5 mmHg Ao V2 VTI: 32.5 cm ECHO/Echo Complete W/ Contrast Interpretation Summary The study was technically difficult. Contrast injection was performed. Based upon the 2D echocardiographic and contrast enhanced images obtained appea rs to be grossly normal left ventricular size, wall motion, and systolic function. The estimated ejection fraction is 60 %. The left atrium is mildly enlarged. Trivial mitral valve insufficiency. Trivial tricuspid valve insufficiency. Mild focal aortic valve calcification. Unable to estimate RV systolic pressure/pulmonary artery pressure due to techni sarah difficult study. Diastolic function is indeterminate. Ordering Physician: Marcellus Gunn Referring Physician: Nain Elizalde Performed By: Alise George, ARLEEN, RVT
--- NOTE | 2021-01-18 14:42 | CASEMGMT ---
Addendum entered by Theresa Fry 01/18/21 14:44: [facility] pt [facility] from their assisted living. SW will update [facility] tomorrow regarding pt. SANJIV Veronica Original Note: As per the demographics, pt is here from [facility]. SW called [facility], message left for admissions to call SW back. SANJIV Veronica
--- NOTE | 2021-01-18 14:51 | PCM.CONS.C ---
Assessment & Plan Assessment/Plan (1) NSVT (nonsustained ventricular tachycardia): PLAN: Improved with amiodarone drip. We will proceed with coronary angiography to look for ischemic etiology. Magnesium level is pending. Potassium is 4.2. BNP is elevated. He had an echo in 2019 that showed preserved EF. HPI Consult Data Date of Consult: 01/18/21 HPI Narrative HPI Narrative: ZAK HOYT, is a 55 M who presents with what he describes as heart not beating right. He states that he felt his heart was going to slow. In the emergency room he was found to have frequent PVCs sometimes and short runs of nonsustained V. tach. Patient states that he has had on and off chest pain. Currently he does not have any chest pain and the last episode of chest pain he says is a few days back. He says when he does have the chest pain it is like a pressure in the retrosternal region. He denies any shortness of breath but does appear to be dyspneic. Review of systems: All systems reviewed. All else is negative except that in the HPI. [facility] Medical History (Updated 01/18/21 @ 14:25 by Karen Tineo) Asthma Chest pain COPD (chronic obstructive pulmonary disease) COPD exacerbation Diabetes Former smoker Hepatitis Hypertension Hypothyroidism Irregular heart beat Kidney stones Home Medications lisinopril 10 mg PO DAILY #30 tab 12/14/18 [Rx Last Taken 01/18/21] furosemide 40 mg PO BID@1000,1800 tab 04/23/19 [Rx Last Taken 01/18/21] potassium chloride 20 meq PO DAILYCM tab 04/23/19 [Rx Last Taken 01/18/21] atorvastatin 10 mg PO QHS 01/18/21 [History Last Taken 01/17/21] citalopram 20 mg PO DAILY 01/18/21 [History Last Taken 01/18/21] dulaglutide [Trulicity] 3 mg SUBCUT FR 01/18/21 [History Last Taken Unknown] duloxetine 60 mg PO DAILY 01/18/21 [History Last Taken 01/18/21] guaifenesin [Greer-Tussin] 200 mg PO QHS 01/18/21 [History Last Taken 01/17/21] metformin 1,000 mg PO DAILY 01/18/21 [History Last Taken 01/18/21] metoprolol tartrate 25 mg PO BID 01/18/21 [History Last Taken 01/17/21] mometasone-formoterol [Dulera] 2 puff INHALATION DAILY 01/18/21 [History Last Taken 01/18/21] omeprazole 40 mg PO DAILY 01/18/21 [History Last Taken 01/18/21] Allergy/AdvReac Type Severity Reaction Status Date / Time No Known Allergies Allergy Verified 04/20/19 14:41 Surgical History History of thyroidectomy Social History Smoking Status: Former smoker Physical Exam Const alert and oriented x3 Orientation / Consciousness: awake HEENT normocephalic Eyes no scleral icterus Chest inspection of chest normal Resp clear to auscultation bilaterally Cardio Cardio Narrative: Irregular rhythm Extremity General Extremity: edema bilateral lower extremity Details: mild Skin no rashes or lesions noted Neuro oriented x3 Psych mental status grossly normal Charges/Coding Visit Charges Inpatient E&M: 65027 Init Hosp L3 Objective Data Vital Signs: Vital Signs Temp Pulse Resp BP Pulse Ox 97.2 F L 90 19 H 100/53 L 95 01/18/21 13:53 01/18/21 13:53 01/18/21 13:53 01/18/21 13:53 01/18/21 13:53 Oxygen Flow Rate (L/min) 6 Oxygen Delivery Method Room Air Weight: 372 lb 2.244 oz Body Mass Index (BMI) 50.4 Lab / Micro Data Result Diagrams: 01/18/21 09:45 01/18/21 09:45 Labs: Laboratory Results - last 24 hr 01/18/21 09:45: WBC 11.3 H, RBC 4.75, Hgb 14.3, Hct 44.3, MCV 93.3, MCH 30.1, MCHC 32.3, RDW Std Deviation 48.5 H, RDW Coeff of Jovany 14.3, Plt Count 152, MPV 10.7, Immature Gran % (Auto) 0.600, Neut % (Auto) 74.0 H, Lymph % (Auto) 16.2 L, [place] % (Auto) 4.7, Eos % (Auto) 4.0, Baso % (Auto) 0.5, Absolute Neuts (auto) 8.4 H, Absolute Lymphs (auto) 1.83, Nucleated RBC % 0 01/18/21 09:45: Sodium 133 L, Potassium 4.2, Chloride 95 L, Carbon Dioxide 30.0, Anion Gap 8, BUN 20 H, Creatinine 0.97, Estim Creat Clear Calc 94.44, Est GFR (MDRD) Af Amer 103, Est GFR (MDRD) Non-Af 85, BUN/Creatinine Ratio 20.6 H, Glucose 275 H, Calcium 8.6, Troponin I High Sens 10.1 01/18/21 09:45: B-Natriuretic Peptide 222.0 H 01/18/21 10:00: PT 13.9, INR 1.1, APTT 30.8 01/18/21 11:35: Troponin I High Sens 12.1 Cardiology Labs/Tests 01/18/21 09:45: WBC 11.3 H, RBC 4.75, Hgb 14.3, Hct 44.3, MCV 93.3, MCH 30.1, MCHC 32.3, Plt Count 152, MPV 10.7, Immature Gran % (Auto) 0.600, Neut % (Auto) 74.0 H, Lymph % (Auto) 16.2 L, [place] % (Auto) 4.7, Eos % (Auto) 4.0, Baso % (Auto) 0.5, Absolute Neuts (auto) 8.4 H, Nucleated RBC % 0 01/18/21 09:45: Sodium 133 L, Potassium 4.2, Chloride 95 L, Carbon Dioxide 30.0, Anion Gap 8, BUN 20 H, Creatinine 0.97, Est GFR (MDRD) Af Amer 103, Est GFR (MDRD) Non-Af 85, BUN/Creatinine Ratio 20.6 H, Glucose 275 H, Calcium 8.6 01/18/21 09:45: B-Natriuretic Peptide 222.0 H 01/18/21 10:00: PT 13.9, INR 1.1, APTT 30.8 Rhythm: EKG: ECHO: Stress Test: Cardiac Cath: PCI: CT Surgery: Holter monitor: EPS: PPM: CXR: Chest CT Scan: Radiography Diagnostic Testing: Radiology Impression Chest X-Ray 01/18/21 10:15 IMPRESSION: Findings in keeping with CHF and left basilar atelectasis. Electronically Signed: Hernando Cook MD at 10:32 EDT , Service support ,
[2021-01-18] MEDS: Amiodarone 360 MG in Dextrose 5% Viaflo Bag 192.8 ML 16.7 MG CONT INF (17:00)
--- NOTE | 2021-01-18 17:00 | EKG12_ITS ---
Test Reason : AM EKG Blood Pressure : / mmHG Vent. Rate : 112 BPM Atrial Rate : 037 BPM P-R Int : 216 ms QRS Dur : 096 ms QT Int : 374 ms P-R-T Axes : 019 017 050 degrees QTc Int : 510 ms Marked sinus bradycardia with 1st degree A-V block with frequent and consecutive Premature ventricula r complexes Low voltage QRS Abnormal ECG Confirmed by BREANNA HODGES, MONET ([id number]), development editor ELODIA FARRAR ([id number]) on 01/26/2021 9:19:13 AM Referred By: ETHAN Confirmed By:MONET CARLOS MD
[2021-01-18 17:56] LABS: Base Excess 3 mmol/L (-2 to +2); Bicarbonate 28.5 mmol/L (22-26); Blood Gas Specimen Type ART; O2 Delivery Device Cannula; PO2 77 mmHG (75-100); SITE L Radial; SO2 95 % (95-99); Total Carbon Dioxide 30 mmol/L; pCO2 48.1 mmHg (35-45); pH 7.38 (7.35-7.45)
[2021-01-18] MEDS: Enoxaparin 40 MG/0.4 ML Syringe SC ×2 (18:09→21:20)
[2021-01-18] MEDS: 0.9% Normal Saline 1,000 ML 80 ML IV (18:10)
[2021-01-18 18:51] LABS: Absolute Lymphocyte Count 1.26 X10^3/uL (0.83-4.51); Absolute Neutrophil Count 7.5 X10^3/uL (2.0-7.7); Basophil# 0.06 X10^3/uL; Basophil% 0.6 % (0-1); Eosinophil# 0.35 X10^3/uL; Eosinophils% 3.6 % (0-5); Hematocrit 30.8 % (40-54); Lymphocyte # 1.26 X10^3/ul (0.83-4.51); Mean Corp Hgb Conc 32.5 g/dL (32-36); Mean Corpuscular Hgb 30.2 pg (27.0-32.0); Mean Corpuscular Volume 93.1 fL (80-94); Mean Platelet Vol. 11.2 fl (6.2-12.0); Monocyte# 0.43 X10^3/uL; Monocyte% 4.4 % (0-10); NRBC Flagged by Analyzer 0 % (0-5); Neutrophil % 77.5 % (47-70); Platelet Count 100 K/mm3 (150-450); RBC Distribution Width CV 14.3 % (11.6-14.6); RBC Distribution Width SD 48.7 fl (35.1-43.9); Red Blood Count 3.31 M/mm3 (4.6-6.2); White Blood Count 9.7 K/mm3 (4.4-11.0)
[2021-01-18 19:35] LABS: Anion Gap 9 (5-15); BUN 12 mg/dL (7-18); BUN/Creat Ratio 32.6 RATIO (10-20); Calcium,Total 5.4 mg/dL (8.5-10.1); Chloride 113 mmol/L (98-107); Creatinine, Serum 0.37 mg/dL (0.70-1.30); EST Glomerular Filtration Rate 261 mL/min (>60); Est Glom Filt Rate - Afr Amer 316 mL/min (>60); Glucose 129 mg/dL (74-106); Magnesium 1.2 mg/dL (1.6-2.6); Phosphorus 2.6 mg/dL (2.5-4.9); Potassium 2.8 mmol/L (3.5-5.1); Sodium Level 143 mmol/L (136-145)
[2021-01-18] MEDS: Ipratropium/Albuterol Sulfate 3 ML AMPUL.NEB INHALATION (19:35)
[2021-01-18] MEDS: TICAGRELOR 90 MG TABLET PO (21:19)
[2021-01-18] MEDS: Metoprolol Tartrate 25 MG Tablet PO (21:19)
[2021-01-18] MEDS: Atorvastatin Calcium 40 MG Tablet PO (21:19)
[2021-01-18] MEDS: Potassium Chloride Oral Tablet 20 MEQ 60 MEQ PO (21:21)
[2021-01-19] VITALS (33 sets, daily range): BP systolic 112–136; BP diastolic 46–97; PULSE 72–116; RESP 16–24; TEMP 36.2–37.2; O2SAT 92–98
[2021-01-19 01:04] LABS: Absolute Lymphocyte Count 1.41 X10^3/uL (0.83-4.51); Absolute Neutrophil Count 11.7 X10^3/uL (2.0-7.7); Basophil# 0.08 X10^3/uL; Basophil% 0.6 % (0-1); Eosinophil# 0.39 X10^3/uL; Eosinophils% 2.7 % (0-5); Hematocrit 42.6 % (40-54); Hemoglobin 13.8 g/dL (13.0-16.5); Lymphocyte # 1.41 X10^3/ul (0.83-4.51); Lymphocyte % 9.8 % (19-41); Mean Corp Hgb Conc 32.4 g/dL (32-36); Mean Corpuscular Volume 92.6 fL (80-94); Mean Platelet Vol. 10.9 fl (6.2-12.0); Monocyte# 0.75 X10^3/uL; Monocyte% 5.2 % (0-10); NRBC Flagged by Analyzer 0 % (0-5); Neutrophil # 11.66 X10^3/uL (2.7-7.7); Neutrophil % 81.1 % (47-70); Platelet Count 150 K/mm3 (150-450); RBC Distribution Width CV 14.5 % (11.6-14.6); RBC Distribution Width SD 48.3 fl (35.1-43.9); White Blood Count 14.4 K/mm3 (4.4-11.0)
[2021-01-19 01:19] LABS: Anion Gap 5 (5-15); BUN 15 mg/dL (7-18); Calcium,Total 8.8 mg/dL (8.5-10.1); Chloride 101 mmol/L (98-107); Creatinine, Serum 0.71 mg/dL (0.70-1.30); EST Glomerular Filtration Rate 121 mL/min (>60); Est Glom Filt Rate - Afr Amer 147 mL/min (>60); Estimated Creatinine Clearance 129.03 ml/min; Glucose 214 mg/dL (74-106); Potassium 4.6 mmol/L (3.5-5.1); Sodium Level 133 mmol/L (136-145)
[2021-01-19] MEDS: Amiodarone 360 MG in Dextrose 5% Viaflo Bag 192.8 ML 16.7 MG CONT INF (05:00)
[2021-01-19] MEDS: CHLORHEXIDINE GLUC 2% CLOTH 1 EACH TOWELETTE TOPICAL (05:21)
[2021-01-19] MEDS: Levothyroxine 100 MCG Tablet 200 MCG PO (05:21)
[2021-01-19] MEDS: 0.9% Saline Lock 10 ML Syringe IV ×2 (05:22→22:49)
[2021-01-19 05:32] LABS: Hematocrit 42.9 % (40-54); Hemoglobin 14.1 g/dL (13.0-16.5); Mean Corp Hgb Conc 32.9 g/dL (32-36); Mean Corpuscular Hgb 30.6 pg (27.0-32.0); Mean Corpuscular Volume 93.1 fL (80-94); Mean Platelet Vol. 11.1 fl (6.2-12.0); Platelet Count 180 K/mm3 (150-450); RBC Distribution Width CV 14.7 % (11.6-14.6); RBC Distribution Width SD 49.9 fl (35.1-43.9); Red Blood Count 4.61 M/mm3 (4.6-6.2); White Blood Count 14.3 K/mm3 (4.4-11.0)
[2021-01-19 06:18] LABS: ALB/GLOB Ratio 0.7 RATIO (0.9-2.4); AST(SGOT) 43 U/L (15-37); Alanine Aminotransfer ALT/SGPT 54 U/L (16-61); Albumin, Serum 3.3 g/dL (3.2-5.0); Alkaline Phosphatase 197 U/L (45-117); Anion Gap 6 (5-15); BUN 12 mg/dL (7-18); BUN/Creat Ratio 14.1 RATIO (10-20); Calcium,Total 8.6 mg/dL (8.5-10.1); Chloride 99 mmol/L (98-107); Cholesterol 116 mg/dL (200); Creatinine, Serum 0.85 mg/dL (0.70-1.30); EST Glomerular Filtration Rate 99 mL/min (>60); Est Glom Filt Rate - Afr Amer 120 mL/min (>60); Estimated Creatinine Clearance 107.78 ml/min; Globulin 4.5 g/dL (2.2-4.2); Glucose 204 mg/dL (74-106); High Density Lipoprotein 28 mg/dL; Magnesium 2.3 mg/dL (1.6-2.6); Potassium 4.8 mmol/L (3.5-5.1); Protein, Total 7.8 g/dL (6.4-8.2); Sodium Level 133 mmol/L (136-145); Thyroid Stim Hormone (TSH) 3.81 uIU/mL (0.358-3.74); Triglycerides 191 mg/dL; Very Low Density Lipoprotein 38 mg/dL (5-40)
[2021-01-19] MEDS: Ipratropium/Albuterol Sulfate 3 ML AMPUL.NEB INHALATION ×3 (06:45→19:09)
--- NOTE | 2021-01-19 07:50 | PN.HOSP_ITS ---
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 Patient had frequent PVCs, runs of NSVT for which patient on amiodarone. Magnesium and potassium are low and replaced. Frequency of NSVT decreased. Patient denies exacerbation of cough, shortness of breath or chest tightness. Objective Data Objective Data Vital Signs: Vital Signs Temp Pulse Resp BP Pulse Ox 98.8 F 113 H 18 113/59 L 94 01/19/21 05:00 01/19/21 06:45 01/19/21 06:45 01/19/21 06:00 01/19/21 06:45 Oxygen Flow Rate (L/min) 2 Oxygen Delivery Method Room Air Weight: 366 lb 13.587 oz Body Mass Index (BMI) 50.4 Intake & Output: Intake and Output for Last 24 Hours 01/17/21 01/18/21 01/19/21 23:59 23:59 23:59 Intake Total 1147.17 / 1147.17 304 / 304 Output Total 2500 / 3650 1350 / 1350 Balance -1352.83 / -2502.83 -1046 / -1046 Lab / Micro Data Result Diagrams: 01/19/21 05:25 01/19/21 05:25 Labs: Laboratory Results - last 24 hr 01/18/21 09:45: WBC 11.3 H, RBC 4.75, Hgb 14.3, Hct 44.3, MCV 93.3, MCH 30.1, MCHC 32.3, RDW Std Deviation 48.5 H, RDW Coeff of Jovany 14.3, Plt Count 152, MPV 10.7, Immature Gran % (Auto) 0.600, Neut % (Auto) 74.0 H, Lymph % (Auto) 16.2 L, [place] % (Auto) 4.7, Eos % (Auto) 4.0, Baso % (Auto) 0.5, Absolute Neuts (auto) 8.4 H, Absolute Lymphs (auto) 1.83, Nucleated RBC % 0 01/18/21 09:45: Sodium 133 L, Potassium 4.2, Chloride 95 L, Carbon Dioxide 30.0, Anion Gap 8, BUN 20 H, Creatinine 0.97, Estim Creat Clear Calc 94.44, Est GFR (MDRD) Af Amer 103, Est GFR (MDRD) Non-Af 85, BUN/Creatinine Ratio 20.6 H, Glucose 275 H, Calcium 8.6, Troponin I High Sens 10.1 01/18/21 09:45: B-Natriuretic Peptide 222.0 H 01/18/21 10:00: PT 13.9, INR 1.1, APTT 30.8 01/18/21 11:35: Troponin I High Sens 12.1 01/18/21 17:15: Magnesium Cancelled 01/18/21 17:15: Phosphorus Cancelled 01/18/21 17:15: WBC Cancelled, Corrected WBC Cancelled, RBC Cancelled, Hgb Cancelled, Hct Cancelled, MCV Cancelled, MCH Cancelled, MCHC Cancelled, RDW Std Deviation Cancelled, RDW Coeff of Jovany Cancelled, Plt Count Cancelled, MPV Cancelled, Diff Path Review Cancelled 01/18/21 17:15: WBC Cancelled, Corrected WBC Cancelled, RBC Cancelled, Hgb Cancelled, Hct Cancelled, MCV Cancelled, MCH Cancelled, MCHC Cancelled, RDW Std Deviation Cancelled, RDW Coeff of Jovany Cancelled, Plt Count Cancelled, MPV Cancelled, Diff Path Review Cancelled 01/18/21 18:40: WBC 9.7, RBC 3.31 L, Hgb 10.0 L, Hct 30.8 L, MCV 93.1, MCH 30.2, MCHC 32.5, RDW Std Deviation 48.7 H, RDW Coeff of Jovany 14.3, Plt Count 100 L, MPV 11.2, Immature Gran % (Auto) 0.900, Neut % (Auto) 77.5 H, Lymph % (Auto) 13.0 L, [place] % (Auto) 4.4, Eos % (Auto) 3.6, Baso % (Auto) 0.6, Absolute Neuts (auto) 7.5, Absolute Lymphs (auto) 1.26, Nucleated RBC % 0 01/18/21 18:40: Sodium 143, Potassium 2.8 L, Chloride 113 H, Carbon Dioxide 21.0, Anion Gap 9, BUN 12, Creatinine 0.37 L, Estim Creat Clear Calc 247.60, Est GFR (MDRD) Af Amer 316, Est GFR (MDRD) Non-Af 261, BUN/Creatinine Ratio 32.6 H, Glucose 129 H, Calcium 5.4 L*, Phosphorus 2.6, Magnesium 1.2 L 01/19/21 00:50: WBC 14.4 H, RBC 4.60, Hgb 13.8, Hct 42.6, MCV 92.6, MCH 30.0, MCHC 32.4, RDW Std Deviation 48.3 H, RDW Coeff of Jovany 14.5, Plt Count 150, MPV 10.9, Immature Gran % (Auto) 0.600, Neut % (Auto) 81.1 H, Lymph % (Auto) 9.8 L, [place] % (Auto) 5.2, Eos % (Auto) 2.7, Baso % (Auto) 0.6, Absolute Neuts (auto) 11.7 H, Absolute Lymphs (auto) 1.41, Nucleated RBC % 0 01/19/21 00:50: Sodium 133 L, Potassium 4.6, Chloride 101, Carbon Dioxide 27.0, Anion Gap 5, BUN 15, Creatinine 0.71, Estim Creat Clear Calc 129.03, Est GFR (MDRD) Af Amer 147, Est GFR (MDRD) Non-Af 121, BUN/Creatinine Ratio 21.0 H, Glucose 214 H, Calcium 8.8 01/19/21 05:25: WBC 14.3 H, RBC 4.61, Hgb 14.1, Hct 42.9, MCV 93.1, MCH 30.6, MCHC 32.9, RDW Std Deviation 49.9 H, RDW Coeff of Jovany 14.7 H, Plt Count 180, MPV 11.1 01/19/21 05:25: Sodium 133 L, Potassium 4.8, Chloride 99, Carbon Dioxide 28.0, Anion Gap 6, BUN 12, Creatinine 0.85, Estim Creat Clear Calc 107.78, Est GFR (MDRD) Af Amer 120, Est GFR (MDRD) Non-Af 99, BUN/Creatinine Ratio 14.1, Glucose 204 H, Calcium 8.6, Magnesium 2.3, Total Bilirubin 0.70, AST 43 H, ALT 54, Alkaline Phosphatase 197 H, Total Protein 7.8, Albumin 3.3, Globulin 4.5 H, Albumin/Globulin Ratio 0.7 L, Triglycerides 191, Cholesterol 116, LDL Cholesterol 50, VLDL Cholesterol 38, HDL Cholesterol 28 L, TSH 3.81 H ABG Data ABG results: ABG 01/18/21 17:48 Specimen Type ART Sample Site L Radial pH 7.38 Bicarbonate Actual 28.5 H Total CO2 30 Base Excess 3 H O2 Saturation 95 ABG pCO2 48.1 H ABG pO2 77 O2 Delivery Device Cannula Liter Flow 2.0 Radiography Diagnostic Testing: Radiology Impression Chest X-Ray 01/18/21 10:15 IMPRESSION: Findings in keeping with CHF and left basilar atelectasis. Electronically Signed: Hernando Cook MD at 10:32 EDT , Service support , Physical Exam Narrative Physical exam General: Alert, Oriented x3, morbid obese BMI 51.2 kg/m? HEENT: Atraumatic, PERRLA, EOMI, Normocephalic Oral: No Gingival or Mucosal Lesions/ Ulcerations. Oral mucosa dry. Neck: Supple, No JVD, Negative Carotid Bruits Lungs: Air entry diminished in all over. No wheezing crepitation/rhonchi. Not tachypneic. Cardiovascular: Sinus rhythm with couplets and PVCs. Normal S1, Normal S2, No murmurs Abdomen: Bowel Sounds Present, Soft, Non Tender, Non-Distended. Fat abdomen : No renal angle tenderness. No suprapubic tenderness. Extremities: Bilateral lower extremity pitting edema better. Capillary Refill Less than 3 Seconds Skin: Erythema/intertrigo over abdominal fat and groin. Macerated skin of the above toes. Musculoskeletal: No Tenderness to Palpation of Joints or Extremities Neurological: Cranial nerves II-XII grossly intact, Deep Tendon Reflexes 2+/4 Psych/Mental Status: Normal Affect, Appropriate. Assessment & Plan Assessment/Plan (1) NSVT (nonsustained ventricular tachycardia): (2) Atypical chest pain: (3) Diabetes mellitus: QUALIFIERS: Diabetes mellitus type: type 2 Diabetes mellitus senior care insulin use: unspecified senior care insulin use status Diabetes mellitus complication status: with skin complications Diabetes mellitus complication detail: with other skin ulcer Qualified Code(s): E11.622 - Type 2 diabetes jackelin litus with other skin ulcer; L98.499 - Non-pressure chronic ulcer of skin of other sites with unspecified severity PLAN: ZAK HOYT, is a 55 M with known history of COPD, HFpEF, EF 60% on last echo 12/03/2018 came to ER from [facility] with shortness of breath and intermittent chest pressure for last 1 week Twelve-lead EKG shows sinus rhythm with 4 beats of intermittent ventricular rhythm. Previous EKG 12/14/2018 shows normal sinus rhythm, low voltage with nons pecific ST-T abnormalities. Chest x-ray suggestive of pulmonary venous congestion. BNP elevated. 1. Atypical chest pain with NSVT: Patient is being admitted in ICU on amiodarone drip. Patient agreeable to DC cardioversion if gets hemodynamically unstable for V. tach. General Technician consult. Serial hs-troponin enzymes. Repeat EKG. 2D echo today. Previous echo of November 2018 shows EF 60% with moderate concentric LVH and diastolic dysfunction. Last arterial study of March 2019 reported normal. 01/19: Patient had cardiac cath on 01/18 and PCI/stent to mid LAD. Arrhythmia is controlled with intermittent couplets and PVCs but frequency is less. 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 Transfer to PCU later today. Magnesium and potassium electrolytes are normal range. LDL 50. HDL 28. Continue high intensity statin 2. Acute hypoxic respiratory failure most recent COPD exacerbation and CHF exacerbation: ABG ordered. Patient chest pain/tightness might be pleuritic as it is more right-sided. BiPAP as needed. DuoNeb, Solu-Medrol, incentive spirometry and Pep. 01/19: ABG 7.38/48/77/30 on 2 L of oxygen overall it seems patient is a chronic CO2 retainer and that is baseline. Discontinue Solu-Medrol. COPD exacerbation got better. Patient seems mainly CHF exacerbation. Patient will need formal PFT and sleep study evaluation as an outpatient 3. Acute on chronic HFpEF/diastolic CHF exacerbation: Lasix 40 mg IV twice daily. Heart failure core measures including intake and output, fluid restriction less than 1500 mL, daily weight monitoring, kidney and electrolytes monitoring. Continue lisinopril. Beta-mili once patient gets euvolemic and COPD exacerbation controlled. David wrap bandage. 4. Diabetes mellitus type 2, hypertension, hypothyroidism, anxiety and depression and morbid obesity: Accu-Cheks before meals and cover with Humalog sliding scale. Lantus 10 units subcutaneous twice daily. Glipizide 5 mg daily. Hold Metformin. TSH elevated 3.81. Free T4 ordered. DVT prophylaxis, high risk: Lovenox 40 mg subcu twice daily because of morbid obesity Living will/advanced directive/end of life care: Patient does not have living will or advanced directive. After discussion of benefits/risks procedures involved with full code, DNR CC arrest and DNR CC, the patient opted for full code Patient does want artificial life support including intubation, tube feed, ventilator and/chest compression, central venous catheter, vasopressor and DC shock if needed Total time spent in [id number] encounter in discussion of advanced dir ective 16 minutes. 01/19/21 05:25: WBC 14.3 H, RBC 4.61, Hgb 14.1, Hct 42.9, MCV 93.1, MCH 30.6, MCHC 32.9, RDW Std Deviation 49.9 H, RDW Coeff of Jovany 14.7 H, Plt Count 180, MPV 11.1 01/19/21 05:25: Sodium 133 L, Potassium 4.8, Chloride 99, Carbon Dioxide 28.0, Anion Gap 6, BUN 12, Creatinine 0.85, Estim Creat Clear Calc 107.78, Est GFR (MDRD) Af Amer 120, Est GFR (MDRD) Non-Af 99, BUN/Creatinine Ratio 14.1, Glucose 204 H, Calcium 8.6, Magnesium 2.3, Total Bilirubin 0.70, AST 43 H, ALT 54, Alkaline Phosphatase 197 H, Total Protein 7.8, Albumin 3.3, Globulin 4.5 H, Albumin/Globulin Ratio 0.7 L, Triglycerides 191, Cholesterol 116, LDL Cholesterol 50, VLDL Cholesterol 38, HDL Cholesterol 28 L, TSH 3.81 H Charges/Coding Visit Charges Inpatient E&M: 60038 Subs Hosp L3
[2021-01-19 08:30] LABS: T4 Free Direct 1.12 ng/dL (0.76-1.46)
--- NOTE | 2021-01-19 08:52 | CRPHASE1 ---
Patient Communication PHII Cardiac Rehab Discussed with Patient:: Yes Guide to Cardiac Rehab Given to Patient:: Yes Cardiac Rehab Facility Choice List Given to Patient:: Yes Choice Program [facility] CR PHII:: Communication Given to CR Choice Program Other:: Communication Given to CR Block Sealer:: Ty Rodriguez Refer Phase II Cardiac Rehab:: Yes Sessions:: 36 sessions - 3 days/wk, 12 weeks - pt from [facility] Cardiac Rehabilitation Info Cardiac Rehabilitation Program Information: Cardiac Rehabilitation is important for patients like you who are recovering from a heart problem. Cardiac rehabilitation programs are recognized as integral to the continued care of the patient with coronary heart disease. The cardiac rehabilitation program is designed to optimize a patient's physical, psychological, and social functioning. Health healthcare administrator work in cardiac rehabilitation programs and assist you with getting the treatments you need to get stronger and healthier - like exercise, healthy eating habits, and medications. Cardiac rehabilitation has been show to help people with heart problems live longer and have better life enjoyment than people who do not go to cardiac rehabilitation. Please contact the Cardiac Rehabilitation Program at [facility] at in two weeks if you have not heard from them.
--- NOTE | 2021-01-19 08:53 | CRPH1.INSTRU ---
General Education CAD and cardiac anatomy and function:: Patient communicates acknowledgment Explanation of diagnoses and procedures:: Patient communicates acknowledgment Sign/Symptoms of UT:: Patient communicates acknowledgment Antiplatelet therapy: Patient communicates acknowledgment Smoking Patient Nicotine/Smoking Risk Factors Are:: Never smoked Dyslipidemia Patient Dyslipidemia Risk Factors Are:: Total Cholesterol, Triglycerides, HDL, LDL Recommendations Include:: Lipid profile provided, Reviewed NCEP/ATP guidelines, Therapeutic Lifestyle Change dietary guidelines Dyslipidemia Response Code:: Patient communicates acknowledgment Overweight/Obesity Patient Overweight/Obesity Risk Factors Are:: Obesity - > or = 30 Recommendations Include:: Weight loss of 5-10%, Reduced calorie diet, Exercise 5-7 times/week Overweight/Obesity:: Patient communicates acknowledgment Hypertension Recommendations Include:: Maintain BP <130/85, DASH dietary guidelines, Decrease/maintain normal body weight Hypertension:: Patient communicates acknowledgment Diabetes Patient Diabetes Risk Factors Are:: No documented hx of diabetes Metabolic Syndrome Patient Metabolic Syndrome Risk Factors Are [3 of 5]:: Fasting blood sugar > 100 mg/dL, Waist circumference > 35 [female] or 40 [male], High triglyceride >150, Hypertension, Low HDL <40 [male] or < 50 [female] Recommendations Include:: Reinforce compliance to risk factor modifications, Encouraged follow-up with Primary Care Physician Metabolic Syndrome Response Code:: Patient communicates acknowledgment Sedentary Patient Sedentary Risk Factors Are:: Lack of regular exercise Recommendations Include:: Aerobic exercise 5-7 times/week for 20-30 minutes continuously, Benefits of regular exercise, Discussed home walking program, Monitored Outpatient Cardiac Rehab Sedentary Response Code:: Patient communicates acknowledgment Stress Patient Stress Risk Factors Are:: Patient denies stress as a risk factor
[2021-01-19] MEDS: Aspirin E.C. 81 MG Tablet PO (10:16)
[2021-01-19] MEDS: glipiZIDE 5 MG Tablet PO (10:16)
[2021-01-19] MEDS: Tamsulosin HCl 0.4 MG Capsule PO (10:17)
[2021-01-19] MEDS: Potassium Chloride Oral Tablet 20 MEQ PO (10:17)
[2021-01-19] MEDS: DULoxetine Hcl 60 MG Capsule PO (10:17)
[2021-01-19] MEDS: TICAGRELOR 90 MG TABLET PO ×2 (10:17→21:43)
[2021-01-19] MEDS: Enoxaparin 40 MG/0.4 ML Syringe SC ×2 (10:17→21:43)
[2021-01-19] MEDS: Metoprolol Tartrate 25 MG Tablet PO ×3 (10:17→22:49)
[2021-01-19] MEDS: Lisinopril 10 MG Tablet PO (10:17)
[2021-01-19] MEDS: Pantoprazole Sodium 40 MG Tablet PO (10:17)
[2021-01-19] MEDS: guaiFENesin 1,200 MG Tablet 1200 MG PO ×2 (10:18→21:43)
--- NOTE | 2021-01-19 10:50 | CASEMGMT ---
Addendum entered by Theresa Fry 01/19/21 12:04: Pt would need transport back to [place] at time of discharge. Green sheet with ambulette form on chart in anticipation of weekend discharge. [facility] did request a COVID test be completed prior to discharge, this has been written on the green sheet. SANJIV Veronica Original Note: SW met w/pt in room, pt confirms he lives at the assisted living at [facility]. Pt is independent in ambulation, uses no cane or walker. Pt confirms has been up out of bed here and is moving fine. Pt plans to return to [facility] [place] at discharge. Pt does get his medications through the pharmacy at the [facility]. SW has a Brillinta card for pt, he states to put w/his discharge instructions. SW put on chart for staff to put with his discharge instructions. NORMA called [facility], left message for Lucinda letting her know pt will be returning to [place] at discharge. NORMA will fax updates shortly and will place green sheet on the chart. SANJIV Veronica
[2021-01-19 11:41] LABS: Bedside Glucose 199 mg/dL (70-110)
--- NOTE | 2021-01-19 13:51 | PN.CARD_ITS ---
Subjective Subjective Patient is doing well. Overnight his potassium and magnesium were also replaced and his PVC/nonsustained V. tach burden has gone down significantly. He is also status post FFR guided PCI to the LAD. Objective Data Vital Signs: Vital Signs Temp Pulse Resp BP Pulse Ox 97.5 F L 75 22 H 125/66 H 92 01/19/21 12:00 01/19/21 13:00 01/19/21 13:00 01/19/21 13:00 01/19/21 13:00 Oxygen Flow Rate (L/min) 2 Oxygen Delivery Method Room Air Weight: 366 lb 13.587 oz Body Mass Index (BMI) 50.4 Intake & Output: Intake and Output for Last 24 Hours 01/17/21 01/18/21 01/19/21 23:59 23:59 23:59 Intake Total 1147.17 / 1147.17 437 / 437 Output Total 2500 / 3650 1650 / 1650 Balance -1352.83 / -2502.83 -1213 / -1213 Lab / Micro Data Result Diagrams: 01/19/21 05:25 01/19/21 05:25 Labs: Laboratory Results - last 24 hr 01/18/21 17:15: Magnesium Cancelled 01/18/21 17:15: Phosphorus Cancelled 01/18/21 17:15: WBC Cancelled, Corrected WBC Cancelled, RBC Cancelled, Hgb Cancelled, Hct Cancelled, MCV Cancelled, MCH Cancelled, MCHC Cancelled, RDW Std Deviation Cancelled, RDW Coeff of Jovany Cancelled, Plt Count Cancelled, MPV Cancelled, Diff Path Review Cancelled 01/18/21 17:15: WBC Cancelled, Corrected WBC Cancelled, RBC Cancelled, Hgb Cancelled, Hct Cancelled, MCV Cancelled, MCH Cancelled, MCHC Cancelled, RDW Std Deviation Cancelled, RDW Coeff of Jovany Cancelled, Plt Count Cancelled, MPV Cancelled, Diff Path Review Cancelled 01/18/21 18:40: WBC 9.7, RBC 3.31 L, Hgb 10.0 L, Hct 30.8 L, MCV 93.1, MCH 30.2, MCHC 32.5, RDW Std Deviation 48.7 H, RDW Coeff of Jovany 14.3, Plt Count 100 L, MPV 11.2, Immature Gran % (Auto) 0.900, Neut % (Auto) 77.5 H, Lymph % (Auto) 13.0 L, [place] % (Auto) 4.4, Eos % (Auto) 3.6, Baso % (Auto) 0.6, Absolute Neuts (auto) 7.5, Absolute Lymphs (auto) 1.26, Nucleated RBC % 0 01/18/21 18:40: Sodium 143, Potassium 2.8 L, Chloride 113 H, Carbon Dioxide 21.0, Anion Gap 9, BUN 12, Creatinine 0.37 L, Estim Creat Clear Calc 247.60, Est GFR (MDRD) Af Amer 316, Est GFR (MDRD) Non-Af 261, BUN/Creatinine Ratio 32.6 H, Glucose 129 H, Calcium 5.4 L*, Phosphorus 2.6, Magnesium 1.2 L 01/19/21 00:50: WBC 14.4 H, RBC 4.60, Hgb 13.8, Hct 42.6, MCV 92.6, MCH 30.0, MCHC 32.4, RDW Std Deviation 48.3 H, RDW Coeff of Jovany 14.5, Plt Count 150, MPV 10.9, Immature Gran % (Auto) 0.600, Neut % (Auto) 81.1 H, Lymph % (Auto) 9.8 L, [place] % (Auto) 5.2, Eos % (Auto) 2.7, Baso % (Auto) 0.6, Absolute Neuts (auto) 11.7 H, Absolute Lymphs (auto) 1.41, Nucleated RBC % 0 01/19/21 00:50: Sodium 133 L, Potassium 4.6, Chloride 101, Carbon Dioxide 27.0, Anion Gap 5, BUN 15, Creatinine 0.71, Estim Creat Clear Calc 129.03, Est GFR (MDRD) Af Amer 147, Est GFR (MDRD) Non-Af 121, BUN/Creatinine Ratio 21.0 H, Glucose 214 H, Calcium 8.8 01/19/21 05:25: WBC 14.3 H, RBC 4.61, Hgb 14.1, Hct 42.9, MCV 93.1, MCH 30.6, MCHC 32.9, RDW Std Deviation 49.9 H, RDW Coeff of Jovany 14.7 H, Plt Count 180, MPV 11.1 01/19/21 05:25: Sodium 133 L, Potassium 4.8, Chloride 99, Carbon Dioxide 28.0, Anion Gap 6, BUN 12, Creatinine 0.85, Estim Creat Clear Calc 107.78, Est GFR (MDRD) Af Amer 120, Est GFR (MDRD) Non-Af 99, BUN/Creatinine Ratio 14.1, Glucose 204 H, Calcium 8.6, Magnesium 2.3, Total Bilirubin 0.70, AST 43 H, ALT 54, Alkaline Phosphatase 197 H, Total Protein 7.8, Albumin 3.3, Globulin 4.5 H, Albumin/Globulin Ratio 0.7 L, Triglycerides 191, Cholesterol 116, LDL Cholesterol 50, VLDL Cholesterol 38, HDL Cholesterol 28 L, TSH 3.81 H 01/19/21 05:25: Free T4 1.12 01/19/21 11:32: POC Glucose 199 H ABG Data ABG results: ABG 01/18/21 17:48 Specimen Type ART Sample Site L Radial pH 7.38 Bicarbonate Actual 28.5 H Total CO2 30 Base Excess 3 H O2 Saturation 95 ABG pCO2 48.1 H ABG pO2 77 O2 Delivery Device Cannula Liter Flow 2.0 Cardiology Labs/Tests 01/18/21 17:15: Magnesium Cancelled 01/18/21 17:15: Phosphorus Cancelled 01/18/21 17:15: WBC Cancelled, Corrected WBC Cancelled, RBC Cancelled, Hgb Cancelled, Hct Cancelled, MCV Cancelled, MCH Cancelled, MCHC Cancelled, Plt Count Cancelled, MPV Cancelled 01/18/21 17:15: WBC Cancelled, Corrected WBC Cancelled, RBC Cancelled, Hgb Cancelled, Hct Cancelled, MCV Cancelled, MCH Cancelled, MCHC Cancelled, Plt Count Cancelled, MPV Cancelled 01/18/21 17:48: pH 7.38, Bicarbonate Actual 28.5 H, Base Excess 3 H, O2 Saturation 95, ABG pCO2 48.1 H, ABG pO2 77 01/18/21 18:40: WBC 9.7, RBC 3.31 L, Hgb 10.0 L, Hct 30.8 L, MCV 93.1, MCH 30.2, MCHC 32.5, Plt Count 100 L, MPV 11.2, Immature Gran % (Auto) 0.900, Neut % (Auto) 77.5 H, Lymph % (Auto) 13.0 L, [place] % (Auto) 4.4, Eos % (Auto) 3.6, Baso % (Auto) 0.6, Absolute Neuts (auto) 7.5, Nucleated RBC % 0 01/18/21 18:40: Sodium 143, Potassium 2.8 L, Chloride 113 H, Carbon Dioxide 21.0, Anion Gap 9, BUN 12, Creatinine 0.37 L, Est GFR (MDRD) Af Amer 316, Est GFR (MDRD) Non-Af 261, BUN/Creatinine Ratio 32.6 H, Glucose 129 H, Calcium 5.4 L*, Phosphorus 2.6, Magnesium 1.2 L 01/19/21 00:50: WBC 14.4 H, RBC 4.60, Hgb 13.8, Hct 42.6, MCV 92.6, MCH 30.0, MCHC 32.4, Plt Count 150, MPV 10.9, Immature Gran % (Auto) 0.600, Neut % (Auto) 81.1 H, Lymph % (Auto) 9.8 L, [place] % (Auto) 5.2, Eos % (Auto) 2.7, Baso % (Auto) 0.6, Absolute Neuts (auto) 11.7 H, Nucleated RBC % 0 01/19/21 00:50: Sodium 133 L, Potassium 4.6, Chloride 101, Carbon Dioxide 27.0, Anion Gap 5, BUN 15, Creatinine 0.71, Est GFR (MDRD) Af Amer 147, Est GFR (MDRD) Non-Af 121, BUN/Creatinine Ratio 21.0 H, Glucose 214 H, Calcium 8.8 01/19/21 05:25: WBC 14.3 H, RBC 4.61, Hgb 14.1, Hct 42.9, MCV 93.1, MCH 30.6, MCHC 32.9, Plt Count 180, MPV 11.1 01/19/21 05:25: Sodium 133 L, Potassium 4.8, Chloride 99, Carbon Dioxide 28.0, Anion Gap 6, BUN 12, Creatinine 0.85, Est GFR (MDRD) Af Amer 120, Est GFR (MDRD) Non-Af 99, BUN/Creatinine Ratio 14.1, Glucose 204 H, Calcium 8.6, Magnesium 2.3, Total Bilirubin 0.70, Triglycerides 191, Cholesterol 116, LDL Cholesterol 50, VLDL Cholesterol 38, HDL Cholesterol 28 L Rhythm: EKG: ECHO: Stress Test: Cardiac Cath: PCI: CT Surgery: Holter monitor: EPS: PPM: CXR: Chest CT Scan: Radiography Diagnostic Testing: Radiology Impression Echocardiogram 01/18/21 14:04 Interpretation Summary The study was technically difficult. Contrast injection was performed. Based upon the 2D echocardiographic and contrast enhanced images obtained appears to be grossly normal left ventricular size, wall motion, and systolic function. The estimated ejection fraction is 60 %. The left atrium is mildly enlarged. Trivial mitral valve insufficiency. Trivial tricuspid valve insufficiency. Mild focal aortic valve calcification. Unable to estimate RV systolic pressure/pulmonary artery pressure due to technically difficult study. Diastolic function is indeterminate. Ordering Physician: Marcellus Gunn Referring Physician: Nain Elizalde Performed By: Alise George RDCS, RVT Physical Exam Const alert and oriented x3 Orientation / Consciousness: awake HEENT normocephalic Chest inspection of chest normal Resp normal respiratory effort Cardio regular rate Assessment & Plan Assessment/Plan (1) Atherosclerosis of coronary artery of [place] heart without angina pectoris: QUALIFIERS: Coronary Disease-Associated Artery/Lesion type: [place] artery Qualified Code(s): I25.10 - Atherosclerotic heart disease of [place] coronary artery without angina pectoris PLAN: Status post FFR guided PCI to the LAD. Continue aspirin, Brilinta, beta-mili, statin. He does have preserved EF. (2) NSVT (nonsustained ventricular tachycardia): PLAN: Likely due to a combination of hypokalemia, hypomagnesemia and CAD. His electrolytes have been replaced and he is status post PCI to the LAD. Okay to stop the amiodarone and monitor him overnight. Charges/Coding Visit Charges Inpatient E&M: 92777 Subs Hosp L3
--- NOTE | 2021-01-19 14:30 | CL.I_ITS ---
Patient Name: ZAK HOYT Study Date: 01/18/2021 Performing: Ludwig Rodriguez MD Ht: 72 inches 183 cm : 1965 Wt: 373.1 lbs 169 kg Age: 55 Gender: male BSA: 2.78 PROCEDURE(S) PERFORMED BX49-ZLR/COR/LV ZE62-FFG W OR WO PTCA, SINGLE CORONARY ARTERY CLINICAL PROFILE AND CO-MORBIDITIES Indications: Cardiac Arrythmia Heart Failure: None Stress/Imaging Stress/Image Study Performed: No CAD Presentations: Unstable angina. CONCLUSIONS Single vessel CAD as described. Preserved EF. No significant or MR. Successful PCI to mLAD with ba re metal stent RECOMMENDATIONS DESCRIPTION OF PROCEDURE The patient arrived to the procedure lab. The risks and benefits of the procedure as well as a full d escription of our services here and lack of surgical backup were fully explained to the patient and/o r their significant other prior to the catheterization. The Timeout was completed, verifying the daniel ect patient and procedure. The patient's procedural site was prepped and draped in the usual fashion. Local anesthetic was given subcutaneously to right radial region with Lidocaine 2%. Using a modified Seldinger technique, arterial access was obtained via the right radial artery, a 6Fr sheath was inse rted.. Right Coronary Artery selective angiography was then performed in multiple views using a 5 Fr . JR 4 catheter. Left Ventriculography was performed in ODOM projection using a 5 Fr. Pigtail catheter . LV to AO pullback pressures were then recordedThe images were reviewed and options discussed. A dec ision was then made to proceed with an Intervention, IVUS or other adjunct procedure. Angiogram performed pre balloon dilatation. XB 3.5 Guide catheter was inserted and engaged into t he LCA. The FFR/iFR wire was inserted. Adenosine was then given per protocol. Pressures and FFR/iFR w ere then recorded. FFR Ratio Baseline: .99 FFR Ratio post Adenosine: 0.78 3.0 x 12 Emerge Balloon cat heter was advanced across lesion in the LAD, mid. PTCA balloon inflated at 6 atms for 11 secs. Rebel 4.0 X 32 Bare Metal stent was advanced across the lesion in the LAD, mid. Angiogram performed post st ent deployment. 4.0 x 20 NC Emerge Balloon catheter was inserted post stent. PTCA balloon inflated at 12 atms for 14 secs. Angiogram performed post balloon dilatation. The arterial sheath was pulled a nd a TR Band was applied for hemostasis CORONARY ANGIOGRAPHY DOMINANCE: Right Dominant LEFT HEART ASSESSMENT Left Ventricular Ejection Fraction: by LV Gram 65 % Normal LV wall motion LEFT MAIN: Mild luminal irregularities LEFT ANTERIOR DESCENDING ARTERY: MID LAD: 70 % Stenosis CIRCUMFLEX ARTERY: Angiographically normal RIGHT CORONARY ARTERY: Angiographically normal VALVE FINDINGS: No Aortic Valve Stenosis No Mitral Insufficency INTERVENTION INFORMATION LESION SITE: LAD (Mid) Lesion Complexity: High/C, chronic total occlusion: No, lesion at bifurcation: No, thrombus present: No, lesion length: 32 mm, culprit lesion: Yes, Previously treated lesion: No Pre Stenosis: 70 % Pre intervention ANAHI flow: 3 PROCEDURE: FFR, Bare Metal Stent with pre and post dilatation. Post Stenosis: 0 % Post intervention ANAHI flow: 3 Lesion Devices: Cardinal 6 Fr XB3.5 100cm Guide Catheter IGT Devices ( [employer] [employer]) Coronary FFR Wire [employer] Dae Sci EMERGE MR 3.00x12 BALLOON Dae Sci Rebel MR BMS 4.00x32 Dae Sci NC EMERGE MR 4.00x20 BALLOON COMPLICATIONS No Complications PROCEDURE MEDICATIONS Versed 1 mg IV Fentanyl 50 mcg IV Oxygen: 4 L/min via nasal cannula Amiodarone drip continues to run at 16.7 mls/hr ^FreeText^ 01/18/2021 16:20:08 Adenosine drip for FFR 999 ml IV, 47.3 ml infused. 01/18/2021 16:20:36 Brilinta 180 mg PO @ 01/18/2021 16:49:00 Heparin given IA 01/18/2021 15:40:53 Heparin 23878 unit(s) IV 01/18/2021 16:16:38 Heparin 3000 unit(s) IV 01/18/2021 16:31:13 Verapamil 2.5mg, Ntg 100mcgs, 3000 units of Heparin given IA 01/18/2021 15:40:53 SUMMARY OF HEMODYNAMIC DATA Time AIR REST ECG 15:19:30 ECG 15:27:58 AO 102/76 (86) SA 15:44:57 AO 102/73 (83) 15:54:20 AO 114/82 (97) 16:00:14 LV 101/6, 12 16:03:58 LV 109/9, 10 16:04:14 LV 112/7, 18 16:04:23 LV 116/-2, 20 16:05:04 LV 115/4, 22 16:05:18 LVp 116/-4, 21 16:05:26 AOp 111/68 (88) 16:05:31 AO 112/67 (87) 16:05:42 AO 121/76 (95) 16:34:44 Signed By Ludwig Rodriguez MD On 01/19/2021 14:29:34 Ludwig Rodriguez MD
--- NOTE | 2021-01-19 15:38 | CM.UR ---
SW spoke w/Lucinda at [facility], she states that they can take pt Friday into their skilled unit, they don't want to take him back into assisted living as they do not have 24 hour nursing in the assisted living. SW inquired why pt needs skilled care, she states her director biostatistics said he needs it. SW inquired if a precert is needed, she states yes. SW inquired if they need therapy, as pt is up independent in the room. She states therapy would be needed. SW explained it can be ordered though it did not seem necessary as pt is up independent in the room. She is going to check back with her director biostatistics and let this SW know. SANJIV Veronica
--- NOTE | 2021-01-19 15:42 | CASEMGMT ---
Addendum entered by Theresa Fry 01/19/21 16:06: NORMA spoke Joi again at [facility] and she again reiterated the learning coach Yuki is saying pt needs to come back skilled. SW called Yuki, spoke w/her in regard to pt. She states that there is no nursing in the [place], and they think pt needs to go to the skilled side for a short time to be monitored, and have PT/OT. As per Yuki, pt was getting PT/OT prior to coming to the hospital. She states pt needs to be able to walk 200-300 feet independently to get to the dining crockett. Additionally, she states pt should be monitored when he returns by nursing. Yuki states if pt becomes short of breath or is having chest pain in the assisted living, pt would need to return to the hospital, vs if he is in the intermediate side, they can call the stonemason supervisor doctor, provide O2, monitor pt. Upon further discussion, plan now is for pt to have PT/OT here at the hospital on the weekend and follow up w/Yuki on Friday, to see if pt is doing well enough to return to assisted living. NORMA did explain to Yuki that if pt does not have the need for PT/OT or other skilled needs however, he may not be authorized by insurance for a skilled stay. Yuki states understanding, SW to follow up w/Yuki on Friday. NORMA spoke w/pt, explained that [facility] is concerned w/pt returning to [place]. NORMA explained that he will have PT/OT on the weekend and we will reassess Friday to see if pt needs to go to [facility] on the skilled side or can return to the assisted living. Pt would prefer to return to [place] and not the skilled side. NORMA explained we will follow up w/him and with [facility] on Friday. SANJIV Veronica Original Note: NORMA spoke Joi at [facility], she states that they can take pt Friday into their skilled unit, they don't want to take him back into assisted living as they do not have 24 hour nursing in the assisted living. SW inquired why pt needs skilled care, she states her director external communications said he needs it. SW inquired if a precert is needed, she states yes. SW inquired if they need therapy, as pt is up independent in the room. She states therapy would be needed. NORMA explained it can be ordered though it did not seem necessary as pt is up independent in the room. She is going to check back with her director external communications and let this SW know. SANJIV Veronica
[2021-01-19] MEDS: Atorvastatin Calcium 40 MG Tablet PO (21:43)
[2021-01-19 21:50] LABS: Bedside Glucose 308 mg/dL (70-110)
[2021-01-19] MEDS: Insulin Lispro 100 UNIT/ML INSULN.PEN SC (22:50)
[2021-01-19] MEDS: Amiodarone 360 MG in Dextrose 5% Viaflo Bag 192.8 ML 33.3 MG CONT INF (22:51)
[2021-01-20] VITALS (20 sets, daily range): BP systolic 101–142; BP diastolic 52–89; PULSE 67–107; RESP 11–23; TEMP 36.2–36.6; O2SAT 92–98
[2021-01-20] MEDS: Amiodarone 360 MG in Dextrose 5% Viaflo Bag 192.8 ML 16.7 MG CONT INF ×2 (04:26→15:56)
[2021-01-20] MEDS: Levothyroxine 100 MCG Tablet 200 MCG PO (06:32)
[2021-01-20] MEDS: 0.9% Saline Lock 10 ML Syringe IV (06:33)
[2021-01-20] MEDS: Insulin Lispro 100 UNIT/ML INSULN.PEN SC ×3 (06:33→16:46)
[2021-01-20 06:55] LABS: Bedside Glucose 233 mg/dL (70-110)
[2021-01-20] MEDS: Ipratropium/Albuterol Sulfate 3 ML AMPUL.NEB INHALATION ×2 (06:56→13:14)
[2021-01-20 08:25] LABS: Hematocrit 41.4 % (40-54); Hemoglobin 13.5 g/dL (13.0-16.5); Mean Corp Hgb Conc 32.6 g/dL (32-36); Mean Corpuscular Hgb 30.5 pg (27.0-32.0); Mean Corpuscular Volume 93.5 fL (80-94); Mean Platelet Vol. 10.7 fl (6.2-12.0); Platelet Count 185 K/mm3 (150-450); RBC Distribution Width CV 14.6 % (11.6-14.6); RBC Distribution Width SD 50.3 fl (35.1-43.9); Red Blood Count 4.43 M/mm3 (4.6-6.2); White Blood Count 22.7 K/mm3 (4.4-11.0)
[2021-01-20 08:40] LABS: ALB/GLOB Ratio 0.8 RATIO (0.9-2.4); AST(SGOT) 27 U/L (15-37); Alanine Aminotransfer ALT/SGPT 46 U/L (16-61); Albumin, Serum 3.3 g/dL (3.2-5.0); Alkaline Phosphatase 175 U/L (45-117); Anion Gap 6 (5-15); BUN 16 mg/dL (7-18); BUN/Creat Ratio 19.8 RATIO (10-20); Calcium,Total 8.6 mg/dL (8.5-10.1); Chloride 102 mmol/L (98-107); Creatinine, Serum 0.81 mg/dL (0.70-1.30); EST Glomerular Filtration Rate 105 mL/min (>60); Est Glom Filt Rate - Afr Amer 127 mL/min (>60); Globulin 4.3 g/dL (2.2-4.2); Glucose 184 mg/dL (74-106); Magnesium 2.2 mg/dL (1.6-2.6); Potassium 4.6 mmol/L (3.5-5.1); Protein, Total 7.6 g/dL (6.4-8.2); Sodium Level 133 mmol/L (136-145)
[2021-01-20] MEDS: Pantoprazole Sodium 40 MG Tablet PO (09:12)
[2021-01-20] MEDS: Aspirin E.C. 81 MG Tablet PO (09:12)
[2021-01-20] MEDS: guaiFENesin 1,200 MG Tablet 1200 MG PO (09:12)
[2021-01-20] MEDS: TICAGRELOR 90 MG TABLET PO (09:12)
[2021-01-20] MEDS: Tamsulosin HCl 0.4 MG Capsule PO (09:12)
[2021-01-20] MEDS: glipiZIDE 5 MG Tablet PO (09:12)
[2021-01-20] MEDS: DULoxetine Hcl 60 MG Capsule PO (09:12)
[2021-01-20] MEDS: Potassium Chloride Oral Tablet 20 MEQ PO (09:13)
[2021-01-20] MEDS: Enoxaparin 40 MG/0.4 ML Syringe SC (09:13)
[2021-01-20] MEDS: Metoprolol Tartrate 50 MG Tablet PO (09:23)
--- NOTE | 2021-01-20 09:39 | CASEMGMT ---
According to the [facility] website, the following are in-network tertiary facilities: [facility], [place], [facility], [facility], [facility], [facility], [facility], [facility], and . Juaquin BEARD CM
--- NOTE | 2021-01-20 09:59 | PN.CARD_ITS ---
Subjective Subjective The patient is awake and alert. He denies any ongoing chest discomfort, difficulty breathing, or the obvious sensation of palpitations. There is been no sensation of lightheadedness, dizziness, nor has he experienced near syncope or syncope. Objective Data Vital Signs: Vital Signs Temp Pulse Resp BP Pulse Ox 97.8 F 99 19 H 115/55 L 97 01/20/21 09:00 01/20/21 09:23 01/20/21 09:00 01/20/21 09:00 01/20/21 09:00 Oxygen Flow Rate (L/min) 2 Oxygen Delivery Method Room Air Weight: 361 lb 12.457 oz Body Mass Index (BMI) 50.4 Intake & Output: Intake and Output for Last 24 Hours 01/18/21 01/19/21 01/20/21 23:59 23:59 23:59 Intake Total 1147.17 / 1147.17 809.99 / 1118.32 731.67 / 731.67 Output Total 2500 / 3650 1650 / 1650 0 / 0 Balance -1352.83 / -2502.83 -840.01 / -531.68 731.67 / 731.67 Lab / Micro Data Result Diagrams: 01/20/21 08:10 01/20/21 08:10 Labs: Laboratory Results - last 24 hr 01/19/21 11:32: POC Glucose 199 H 01/19/21 21:46: POC Glucose 308 H 01/20/21 06:32: POC Glucose 233 H 01/20/21 08:10: WBC 22.7 H, RBC 4.43 L, Hgb 13.5, Hct 41.4, MCV 93.5, MCH 30.5, MCHC 32.6, RDW Std Deviation 50.3 H, RDW Coeff of Jovany 14.6, Plt Count 185, MPV 10.7 01/20/21 08:10: Sodium 133 L, Potassium 4.6, Chloride 102, Carbon Dioxide 25.0, Anion Gap 6, BUN 16, Creatinine 0.81, Estim Creat Clear Calc 113.10, Est GFR (MDRD) Af Amer 127, Est GFR (MDRD) Non-Af 105, BUN/Creatinine Ratio 19.8, Glucose 184 H, Calcium 8.6, Magnesium 2.2, Total Bilirubin 0.60, AST 27, ALT 46, Alkaline Phosphatase 175 H, Total Protein 7.6, Albumin 3.3, Globulin 4.3 H, Albumin/Globulin Ratio 0.8 L Cardiology Labs/Tests 01/20/21 08:10: WBC 22.7 H, RBC 4.43 L, Hgb 13.5, Hct 41.4, MCV 93.5, MCH 30.5, MCHC 32.6, Plt Count 185, MPV 10.7 01/20/21 08:10: Sodium 133 L, Potassium 4.6, Chloride 102, Carbon Dioxide 25.0, Anion Gap 6, BUN 16, Creatinine 0.81, Est GFR (MDRD) Af Amer 127, Est GFR (MDRD) Non-Af 105, BUN/Creatinine Ratio 19.8, Glucose 184 H, Calcium 8.6, Magnesium 2.2, Total Bilirubin 0.60 Rhythm: Sinus rhythm; frequent episodes of PVCs, ventricular couplets, ventricular triplets, as well as runs of wide-complex tachycardia lasting up to approximately 8-9 beats in duration. Of note based upon the cardiac telemetry available for review it appears the underlying ventricular morphology appears to be uniform. EKG: Sinus rhythm Cardiac Cath / PCI: 01-18-2021 Left ventricle: Normal LV wall motion: LVEF 65% Left main: Mild irregularities LAD: Mid 70% stenosis LCx: Angiographically normal RCA: Angiographically normal FFR of the LAD: 0.78 PCI of the LAD: 4.0x32 bare-metal stent Radiography Diagnostic Testing: Radiology Impression Echocardiogram 01/18/21 14:04 Interpretation Summary The study was technically difficult. Contrast injection was performed. Based upon the 2D echocardiographic and contrast enhanced images obtained appears to be grossly normal left ventricular size, wall motion, and systolic function. The estimated ejection fraction is 60 %. The left atrium is mildly enlarged. Trivial mitral valve insufficiency. Trivial tricuspid valve insufficiency. Mild focal aortic valve calcification. Unable to estimate RV systolic pressure/pulmonary artery pressure due to technic ally difficult study. Diastolic function is indeterminate. Ordering Physician: Marcellus Gunn Referring Physician: Nain Elizalde Performed By: Alise George RDCS, RVT Physical Exam Narrative The patient is awake and alert and in no acute distress. Const alert, oriented x3 and no apparent distress Orientation / Consciousness: awake HEENT normocephalic, head/scalp atraumatic and hearing grossly normal bilaterally Eyes PERRL and EOMs intact bilaterally Neck full ROM, supple and no JVD Chest inspection of chest normal Resp normal respiratory effort and clear to auscultation bilaterally Cardio regular rate, regular rhythm, S1 normal heart sound and S2 normal heart sound Cardio Narrative: Ectopic complexes GI normal to inspection, nondistended, normoactive bowel sounds Psych mental status grossly normal Assessment & Plan Assessment/Plan (1) Atherosclerosis of coronary artery of [place] heart without angina pectoris: QUALIFIERS: Coronary Disease-Associated Artery/Lesion type: [place] artery Qualified Code(s): I25.10 - Atherosclerotic heart disease of [place] coronary artery without angina pectoris PLAN: The patient has been diagnosed with underlying CAD. He has undergone noninvasive and invasive studies. This led to LAD PCI with a bare-metal stent. He appears to be without acute symptoms at this time. (2) History of coronary artery stent placement: PLAN: The patient's coronary artery disease history was reviewed. He has recently received LAD bare-metal stent. He continues medical therapy. (3) Ventricular tachycardia: PLAN: The patient was noted to have episodes of frequent ventricular ectopy and nonsustained ventricular tachycardia. It reportedly improved after electrolyte supplements and initiation of IV amio darone therapy. He then had discontinuation of his IV amiodarone therapy. He has now had recurrence of his frequent ventricular ectopy and nonsustained ventricular tachycardia. This is despite his electrolytes appearing to be acceptable at this time. His beta-mili dose has been increased. He has been placed back on IV amiodarone. If his cardiac ectopy/dysrhythmia does not appear to improve then he may need to be considered for transfer to a tertiary care center for further electrophysio logy opinion as to whether or not he requires additional diagnostic studies, additional antiarrhythmic therapy, or as his underlying ventricular ectopy appears to be uniform in morphology at this time whether he would be considered a candidate for an EPS/RFA procedure. The above has been discussed with the patient. He states he was agreeable to continued medical therapy locally and/or transfer to a tertiary care center for additional evaluation and care if needed. (4) Hypertension: QUALIFIERS: Hypertension type: unspecified Qualified Code(s): I10 - Essential (primary) hypertension PLAN: His blood pressure will be followed. His medications can be adjusted accordingly. Addt'l Comments This note was generated using a voice recognition system and there may be incorrect words, spelling or punctuation that were not noted when reviewing the office note prior to saving.
--- NOTE | 2021-01-20 10:00 | EKG12_ITS ---
Test Reason : PCI Blood Pressure : / mmHG Vent. Rate : 081 BPM Atrial Rate : 081 BPM P-R Int : 192 ms QRS Dur : 092 ms QT Int : 396 ms P-R-T Axes : 017 008 036 degrees QTc Int : 460 ms Normal sinus rhythm Low voltage QRS Borderline ECG Confirmed by BREANNA HODGES, MONET ([id number]), assistant production editor ELODIA FARRAR ([id number]) on 01/26/2021 9:19:26 AM Referred By: ETHAN Confirmed By:MONET CARLOS MD
--- NOTE | 2021-01-20 11:31 | PCM.PN.HOSP ---
Subjective Subjective Patient is still having short runs of NSVT about 4 beats frequent. It was more frequent yesterday and started on amiodarone drip. Patient does not have shortness of breath, fever or chest pain. Patient was started on amiodarone drip again yesterday night. Discussed with the rotary veneer machine operator. Patient heart rate is controlled. Patient does not have fever, chills, chest pain or shortness of breath. Mild clear sputum that is his baseline. No clear focus of signs and symptoms of sepsis. Leukocytosis probably of steroid. Objective Data Objective Data Vital Signs: Vital Signs Temp Pulse Resp BP Pulse Ox 97.8 F 83 20 H 113/70 93 01/20/21 09:00 01/20/21 11:00 01/20/21 11:00 01/20/21 11:00 01/20/21 11:00 Oxygen Flow Rate (L/min) 2 Oxygen Delivery Method Room Air Weight: 361 lb 12.457 oz Body Mass Index (BMI) 50.4 Intake & Output: Intake and Output for Last 24 Hours 01/18/21 01/19/21 01/20/21 23:59 23:59 23:59 Intake Total 1147.17 / 1147.17 809.99 / 1118.32 765.07 / 765.07 Output Total 2500 / 3650 1650 / 1650 0 / 0 Balance -1352.83 / -2502.83 -840.01 / -531.68 765.07 / 765.07 Medical Nutrition Assessment Dietitian: Nutrition Therapy Diagnosis Start: 01/19/21 10:09 Freq: Status: Active Protocol: Document 01/19/21 10:09 JANIYA (Rec: 01/19/21 10:09 JANIYA [id number]) Nutrition Malnutrition Evidence of Malnutrition Exists No Intake Problem Inadequate Oral Intake Etiology r/t acute illness and decreased appetite Signs/Symptoms as evidenced by pt report of consuming 50% of meals. Status Active Problem Recommendation Dietitian Recommendations/Changes Change to cardiac consistent carbohydrate diet without calorie restriction. Monitor daily weight. Oral nutrition supplement such as glucerna if intake regresses at meals. Lab / Micro Data Result Diagrams: 01/20/21 08:10 01/20/21 08:10 Labs: Laboratory Results - last 24 hr 01/19/21 11:32: POC Glucose 199 H 01/19/21 21:46: POC Glucose 308 H 01/20/21 06:32: POC Glucose 233 H 01/20/21 08:10: WBC 22.7 H, RBC 4.43 L, Hgb 13.5, Hct 41.4, MCV 93.5, MCH 30.5, MCHC 32.6, RDW Std Deviation 50.3 H, RDW Coeff of Jovany 14.6, Plt Count 185, MPV 10.7 01/20/21 08:10: Sodium 133 L, Potassium 4.6, Chloride 102, Carbon Dioxide 25.0, Anion Gap 6, BUN 16, Creatinine 0.81, Estim Creat Clear Calc 113.10, Est GFR (MDRD) Af Amer 127, Est GFR (MDRD) Non-Af 105, BUN/Creatinine Ratio 19.8, Glucose 184 H, Calcium 8.6, Magnesium 2.2, Total Bilirubin 0.60, AST 27, ALT 46, Alkaline Phosphatase 175 H, Total Protein 7.6, Albumin 3.3, Globulin 4.3 H, Albumin/Globulin Ratio 0.8 L Radiography Diagnostic Testing: Radiology Impression Echocardiogram 01/18/21 14:04 Interpretation Summary The study was technically difficult. Contrast injection was performed. Based upon the 2D echocardiographic and contrast enhanced images obtained appears to be grossly normal left ventricular size, wall motion, and systolic function. The estimated ejection fraction is 60 %. The left atrium is mildly enlarged. Trivial mitral valve insufficiency. Trivial tricuspid valve insufficiency. Mild focal aortic valve calcification. Unable to estimate RV systolic pressure/pulmonary artery pressure due to technically difficult study. Diastolic function is indeterminate. Ordering Physician: Marcellus Gunn Referring Physician: Nain Elizalde Performed By: Alise George, ARLEEN, RVT Physical Exam Narrative On environmental monitoring specialist, 4-5 beats of NSVT on fairly regular interval after every 4-5 normal sinus beats. General: Alert, Oriented x3, Cooperative morbid obese BMI 51.2 kg/m? HEENT: Atraumatic, PERRLA, EOMI, Normocephalic Oral: No Gingival or Mucosal Lesions/ Ulcerations. Oral mucosa dry. Neck: Supple, No JVD, Negative Carotid Bruits Lungs: Air entry diminished in all over. No wheezing/crepitation or rhonchi. Cardiovascular: Sinus rhythm with NSVT, PVCs. Normal S1, Normal S2, No murmurs Abdomen: Bowel Sounds Present, Soft, Non Tender, Non-Distended. Fat abdomen : No renal angle tenderness. No suprapubic tenderness. Extremities: Bilateral lower extremity pitting edema much improved. Capillary Refill Less than 3 Seconds Skin: Erythema/intertrigo over abdominal fat and groin. Macerated skin of the above toes. Musculoskeletal: No Tenderness to Palpation of Joints or Extremities Neurological: Cranial nerves II-XII grossly intact, Deep Tendon Reflexes 2+/4 and Symmetrical, Neuro grossly intact Psych/Mental Status: Normal Affect, Appropriate. Assessment & Plan Assessment/Plan (1) NSVT (nonsustained ventricular tachycardia): (2) Atypical chest pain: (3) Diabetes mellitus: QUALIFIERS: Diabetes mellitus complication detail: with other skin ulcer Diabetes mellitus complication status: with skin complications Diabetes mellitus shelter insulin use: unspecified shelter insulin use status Diabetes mellitus type: type 2 Qualified Code(s): E11.622 - Type 2 diabetes mellitus with other skin ulcer; L98.499 - Non-pressure chronic ulcer of skin of other sites with unspecified severity PLAN: ZAK HOYT, is a 55 M with known history of COPD, HFpEF, EF 60% on last echo 12/03/2018 came to ER from [facility] with shortness of breath and intermittent chest pressure for last 1 week Twelve-lead EKG shows sinus rhythm with 4 beats of intermittent ventricular rhythm. Previous EKG 12/14/2018 shows normal sinus rhythm, low voltage with nonspecific ST-T abnormalities. Chest x-ray suggestive of pulmonary venous congestion. BNP elevated. 1. Atypical chest pain with NSVT: Patient is being admitted in ICU on amiodarone drip. Patient agreeable to DC cardioversion if gets hemodynamically unstable for V. tach. Accounts Receivable Clerk consult. Serial hs-troponin enzymes. Repeat EKG. 2D echo today. Previous echo of November 2018 shows EF 60% with moderate concentric LVH and diastolic dysfunction. Last arterial study of March 2019 reported normal. 01/19: Patient had cardiac cath on 01/18 and PCI/stent to mid LAD. Arrhythmia is controlled with intermittent couplets and PVCs but frequency is less. Continue amiodarone infusion transition to oral as per rotary veneer machine operator. Transfer to PCU later today. Magnesium and potassium electrolytes are normal range. LDL 50. HDL 28. Continue high intensity statin 01/20: Patient was again started on IV midodrine around 10 PM on 01/19 after going frequent NSVT. No chest pain or shortness of breath but frequent regular monomorphic 4 beats of NSVT and then 4-5 beats of sinus rhythm. Discussed with the rotary veneer machine operator. As the NSVT still regular, there is suspicion of unifocal arrhythmogenic point therefore may be amenable to ablation. Need EP evaluation therefore called [facility] for further evaluation and management. 2. Acute hypoxic respiratory failure most recent COPD exacerbation and CHF exacerbation: ABG ordered. Patient chest pain/tightness might be pleuritic as it is more right-sided. BiPAP as needed. DuoNeb, Solu-Medrol, incentive spirometry and Pep. 01/19: ABG 7.38/48//30 on 2 L of oxygen overall it seems patient is a chronic CO2 retainer and that is baseline. Discontinue Solu-Medrol. COPD exacerbation got better. Patient seems mainly CHF exacerbation. Patient will need formal PFT and sleep study evaluation as an outpatient 01/20: Leukocytosis probably reactive from steroid. Solu-Medrol has been discontinued. Monitor CBC. Patient does not have fever chills or signs and symptoms of obvious infection or sepsis. 3. Acute on chronic HFpEF/diastolic CHF exacerbation: Lasix 40 mg IV twice daily. Heart failure core measures including intake and output, fluid restriction less than 1500 mL, daily weight monitoring, kidney and electrolytes monitoring. Continue lisinopril. Beta-mili once patient gets euvolemic and COPD exacerbation controlled. David wrap bandage. 4. Diabetes mellitus type 2, hypertension, hypothyroidism, anxiety and depression and morbid obesity: Accu-Cheks before meals and cover with Humalog sliding scale. Lantus 10 units subcutaneous twice daily. Glipizide 5 mg daily. Hold Metformin. TSH elevated 3.81. Free T4 ordered. DVT prophylaxis, high risk: Lovenox 40 mg subcu twice daily because of morbid obesity Patient is septic in [facility]. Please see discharge summary Living will/advanced directive/end of life care: Patient does not have living will or advanced directive. After discussion of benefits/risks procedures involved with full code, DNR CC arrest and DNR CC, the patient opted for full code Patient does want artificial life support including intubation, tube feed, ventilator and/chest compression, central venous catheter, vasopressor and DC shock if needed Total time spent in [id number] encounter in discussion of advanced directive 16 minutes. 01/19/21 05:25: , Triglycerides 191, Cholesterol 116, LDL Cholesterol 50, VLDL Cholesterol 38, HDL Cholesterol 28 L, TSH 3.81 H
[2021-01-20 11:46] LABS: Bedside Glucose 301 mg/dL (70-110)
--- NOTE | 2021-01-20 11:59 | PCM.DC.SUM ---
Providers Date of Admission: 01/18/21 Primary Care Physician: Dr. Nain Elizalde MD Consultations 01/18/21 13:54 Consult: Cardiology Routine Consulting Provider: Ty Rodriguez Reason for Consult: Chest pain with NSVT, CHF exa EMERGENT Consult: No MD Notified: Yes Date Notified: 01/18/21 Time Notified: 13:00 Method of Notification: Verbal Reason For Visit: V. TACH WITH CHEST PAIN Diagnosis Discharge Diagnosis (1) NSVT (nonsustained ventricular tachycardia): Status: Acute Code(s): I47.2 - Ventricular tachycardia (2) Atypical chest pain: Status: Acute Code(s): R07.89 - Other chest pain (3) Diabetes mellitus: Status: Chronic Code(s): E11.9 - Type 2 diabetes mellitus without complications Qualifiers: Diabetes mellitus complication detail: with other skin ulcer Diabetes mellitus complication status: with skin complications Diabetes mellitus terminal operations supervisor insulin use: unspecified terminal operations supervisor insulin use status Diabetes mellitus type: type 2 Qualified Code(s): E11.622 - Type 2 diabetes mellitus with other skin ulcer; L98.499 - Non-pressure chronic ulcer of skin of other sites with unspecified severity Medications at Discharge Home Medications lisinopril 10 mg PO DAILY #30 tab 12/14/18 furosemide 40 mg PO BID@1000,1800 tab 04/23/19 potassium chloride 20 meq PO DAILYCM tab 04/23/19 atorvastatin 10 mg PO QHS 01/18/21 citalopram 20 mg PO DAILY 01/18/21 dulaglutide [Trulicity] 3 mg SUBCUT FR 01/18/21 duloxetine 60 mg PO DAILY 01/18/21 guaifenesin [Greer-Tussin] 200 mg PO QHS 01/18/21 metformin 1,000 mg PO DAILY 01/18/21 metoprolol tartrate 25 mg PO BID 01/18/21 mometasone-formoterol [Dulera] 2 puff INHALATION DAILY 01/18/21 omeprazole 40 mg PO DAILY 01/18/21 Hospital Course Summary of Care Provided Hospital Course: ZAK HOYT, is a 55 M with known history of COPD, HFpEF, EF 60% on last echo 12/03/2018 came to ER from [facility] with shortness of breath and intermittent chest pressure for last 1 week Twelve-lead EKG shows sinus rhythm with 4 beats of intermittent ventricular rhythm. Previous EKG 12/14/2018 shows normal sinus rhythm, low voltage with nonspecific ST-T abnormalities. Chest x-ray suggestive of pulmonary venous congestion. BNP elevated. 1. Atypical chest pain with NSVT: Patient is being admitted in ICU on amiodarone drip. Patient agreeable to DC cardioversion if gets hemodynamically unstable for V. tach. Cement Patcher consult. Serial hs-troponin enzymes. Repeat EKG. 2D echo today. Previous echo of November 2018 shows EF 60% with moderate concentric LVH and diastolic dysfunction. Last arterial study of March 2019 reported normal.Patient had cardiac cath on 01/18 and PCI/stent to mid LAD. Initially NSVT was controlled with intermittent couplets and PVC on amiodarone drip and was discontinued on 01/19 morning but by same day evening, he was having frequent and prolonged NSVT therefore put back on amiodarone drip at about 10 PM. Patient is still having frequent and regular 4 beats NSVT about 4 beats after 4-5 beats of sinus rhythm. Discussed with napper fixer Dr. Graham and it seems patient might have unifocal arrhythmogenic point at [facility] Arrhythmia is controlled with intermittent couplets and PVCs but frequency is less. Continue amiodarone infusion transition to oral as per napper fixer. Transfer to PCU later today. Magnesium and potassium electrolytes are normal range. LDL 50. HDL 28. Continue high intensity statin 01/20: Patient was again started on IV midodrine around 10 PM on 01/19 after going frequent NSVT. No chest pain or shortness of breath but frequent regular monomorphic 4 beats of NSVT and then 4-5 beats of sinus rhythm. Discussed with the napper fixer. As the NSVT still regular, there is suspicion of unifocal arrhythmogenic point therefore may be amenable to ablation. I talked with [facility] and discussed the clinical information and findings with Dr. Renteria, client manager large law and he was accepted in his service. Transfer to a [facility] when bed is available. 2. Acute hypoxic respiratory failure most recent COPD exacerbation and CHF exacerbation: ABG ordered. Patient chest pain/tightness might be pleuritic as it is more right-sided. BiPAP as needed. DuoNeb, Solu-Medrol, incentive spirometry and Pep. ABG 7.38/48/77/30 on 2 L of oxygen overall it seems patient is a chronic CO2 retainer and that is baseline. Discontinue Solu-Medrol. COPD exacerbation got better. Patient seems mainly CHF exacerbation. Patient will need formal PFT and sleep study evaluation as an outpatient Leukocytosis probably reactive from steroid. Solu-Medrol has been discontinued. Monitor CBC. Patient does not have fever chills or signs and symptoms of obvious infection or sepsis. 3. Acute on chronic HFpEF/diastolic CHF exacerbation: Lasix 40 mg IV twice daily. Heart failure core measures including intake and output, fluid restriction less than 1500 mL, daily weight monitoring, kidney and electrolytes monitoring. Continue lisinopril. Beta-mili was resumed and uptitrated. David wrap bandage. 4. Diabetes mellitus type 2, hypertension, hypothyroidism, anxiety and depression and morbid obesity: Accu-Cheks before meals and cover with Humalog sliding scale. Lantus 10 units subcutaneous twice daily. Glipizide 5 mg daily. Hold Metformin. TSH elevated 3.81. Free T4 1.12 normal. DVT prophylaxis, high risk: Lovenox 40 mg subcu twice daily because of morbid obesity Patient is being accepted in [facility]. Transfer process is in progress. Living will/advanced directive/end of life care: Patient does not have living will or advanced directive. After discussion of benefits/risks procedures involved with full code, DNR CC arrest and DNR CC, the patient opted for full code Patient does want artificial life support including intubation, tube feed, ventilator and/chest compression, central venous catheter, vasopressor and DC shock if needed Total time of the visit including total time spent in counseling or coordination of care, (more than 50% of the total time, spent in obtaining medical information from nurses and other ancillary care providers,explaining to the patient about labs, imaging, diagnosis and management), discussion with consultants, napper fixer and transfer process to [facility], Dr Renteria, review of labs and imaging is 35 minutes. 01/19/21 05:25: , Triglycerides 191, Cholesterol 116, LDL Cholesterol 50, VLDL Cholesterol 38, HDL Cholesterol 28 L, TSH 3.81 H Physical Exam Narrative Please see exam findings and progress note of same date. Medical Records Data Medical Nutrition Assessment Dietitian: Nutrition Therapy Diagnosis Start: 01/19/21 10:09 Freq: Status: Active Protocol: Document 01/19/21 10:09 JANIYA (Rec: 01/19/21 10:09 [facility] [id number]) Nutrition Malnutrition Evidence of Malnutrition Exists No Intake Problem Inadequate Oral Intake Etiology r/t acute illness and decreased appetite Signs/Symptoms as evidenced by pt report of consuming 50% of meals. Status Active Problem Recommendation Dietitian Recommendations/Changes Change to cardiac consistent carbohydrate diet without calorie restriction. Monitor daily weight. Oral nutrition supplement such as glucerna if intake regresses at meals. Weight / BMI Weight Weight: 361 lb 12.457 oz Body Mass Index (BMI) 50.4 ABG / Lab / Microbiology Data Result Diagrams: 01/20/21 08:10 01/20/21 08:10 Laboratory: Laboratory Results - last 24 hr 01/19/21 21:46: POC Glucose 308 H 01/20/21 06:32: POC Glucose 233 H 01/20/21 08:10: WBC 22.7 H, RBC 4.43 L, Hgb 13.5, Hct 41.4, MCV 93.5, MCH 30.5, MCHC 32.6, RDW Std Deviation 50.3 H, RDW Coeff of Jovany 14.6, Plt Count 185, MPV 10.7 01/20/21 08:10: Sodium 133 L, Potassium 4.6, Chloride 102, Carbon Dioxide 25.0, Anion Gap 6, BUN 16, Creatinine 0.81, Estim Creat Clear Calc 113.10, Est GFR (MDRD) Af Amer 127, Est GFR (MDRD) Non-Af 105, BUN/Creatinine Ratio 19.8, Glucose 184 H, Calcium 8.6, Magnesium 2.2, Total Bilirubin 0.60, AST 27, ALT 46, Alkaline Phosphatase 175 H, Total Protein 7.6, Albumin 3.3, Globulin 4.3 H, Albumin/Globulin Ratio 0.8 L 01/20/21 11:35: POC Glucose 301 H Radiography Diagnostic Testing: Radiology Impression Echocardiogram 01/18/21 14:04 Interpretation Summary The study was technically difficult. Contrast injection was performed. Based upon the 2D echocardiographic and contrast enhanced images obtained appears to be grossly normal left ventricular size, wall motion, and systolic function. The estimated ejection fraction is 60 %. The left atrium is mildly enlarged. Trivial mitral valve insufficiency. Trivial tricuspid valve insufficiency. Mild focal aortic valve calcification. Unable to estimate RV systolic pressure/pulmonary artery pressure due to technically difficult study. Diastolic function is indeterminate. Ordering Physician: Marcellus Gunn Referring Physician: Nain Elizalde Performed By: Alise George RDCS, RVT Meaningful Use Info Meaningful Use Diagnoses (Choose all that apply): None applicable Discharge Plan Admission Admit Date/Time: 01/18/21 13:33 Attending Provider: Marcellus Gunn Primary Care Provider: Nain Elizalde Consulting Providers: Ty Rodriguez Discharge Orders/Prescriptions Prescriptions: No Action lisinopril 10 MG tablet 10 mg PO DAILY Qty: 30 RF: 0 furosemide 40 MG tablet 40 mg PO BID@1000,1800 RF: 0 potassium chloride 20 MEQ tablet 20 meq PO DAILYCM RF: 0 atorvastatin 10 mg tablet 10 mg PO QHS RF: 0 duloxetine 60 mg capsule,delayed release(DR/EC) 60 mg PO DAILY RF: 0 Dulera 100-5 mcg/actuation Hfa Aerosol Inhaler 2 puff INHALATION DAILY RF: 0 omeprazole 40 mg Capsule,Delayed Release(Dr/Ec) 40 mg PO DAILY RF: 0 Trulicity 3 mg/0.5 mL Pen Injector 3 mg SUBCUT FR RF: 0 guaifenesin [Greer-Tussin] 100 mg/5 mL Liquid 200 mg PO QHS RF: 0 citalopram 20 mg tablet 20 mg PO DAILY RF: 0 metformin 1,000 mg tablet 1,000 mg PO DAILY RF: 0 metoprolol tartrate 25 mg tablet 25 mg PO BID RF: 0 Referrals / Follow Up: Nain Elizalde MD [Primary Care Provider] - Disposition Discharge Orders: Discharge Patient (Routine); Ordered 01/20/21 Ordered By: Dr. Marcellus Gunn Charges/Coding Visit Charges Inpatient E&M: 90813 Disch Hosp
[2021-01-20 17:00] LABS: Bedside Glucose 240 mg/dL (70-110)
== END 2021-01-20 17:27 | disposition short-term general hospital (02) | DRG 175 ==
LOC: ED 13:08 → ICU 13:39 → PCU 01-20 02:32
PROVIDERS: Family Medicine; Specialist; Admitting Provider Internal Medicine; Emergency Provider Emergency Medicine; Visit Provider Internal Medicine
DX: I47.2 Ventricular tachycardia (principal); I50.33 Acute on chronic diastolic (congestive) heart failure; I25.110 Atherosclerotic heart disease of native coronary artery with unstable angina pectoris; Z68.43 Body mass index [BMI] 50.0-59.9, adult; E11.622 Type 2 diabetes mellitus with other skin ulcer; L98.499 Non-pressure chronic ulcer of skin of other sites with unspecified severity; I11.0 Hypertensive heart disease with heart failure; J44.9 Chronic obstructive pulmonary disease, unspecified; E66.01 Morbid (severe) obesity due to excess calories; E03.9 Hypothyroidism, unspecified; F41.9 Anxiety disorder, unspecified; F32.9 Major depressive disorder, single episode, unspecified; R07.89 Other chest pain; I49.3 Ventricular premature depolarization; Z79.899 Other long term (current) drug therapy; Z79.84 Long term (current) use of oral hypoglycemic drugs; Z87.891 Personal history of nicotine dependence
CPT/HCPCS: 36415; 36600; 71045; 80048; 80053; 80061; 82803; 82962; 83735; 83880; 84100; 84439; 84443; 84484; 85025; 85027; 85610; 85730; 92928; 93005; 93306; 93458; 93571; 94640; 94667; 94668; 97802; 99152; 99153; 99285; J0153; J7030; J7040; Q9957; Q9967; A4216; C1725; C1769; C1876; C1887; C1894; C8929; J0610; J1327; J1940; J3490

== ENCOUNTER 2021-02-11 21:04 | Emergency (ER) | payer MEDICAID, SELFPAY ==
[2021-02-11 21:08] VITALS: BP 135/113; PULSE 92; RESP 16; TEMP 37.2; O2SAT 94; BMI 49.1
[2021-02-11 21:20] VITALS: BP 119/60; PULSE 90; RESP 16; O2SAT 94
--- NOTE | 2021-02-11 21:32 | EX.ED.DYSGE1 ---
HPI History of Present Illness Chief Complaint: Chest Pain Narrative Narrative: Patient presenting for evaluation secondary to dyspnea. Patient states that today he has been dealing with some feelings of exertional dyspnea. States that it also has been associated with a pounding in his head tonight. Patient states that he took nitro this evening, it seemed to alleviate both of those symptoms. Patient states that he has chest pain chronically, this is unchanged. It typically is on his right side. Some also been associated with some chronic left-sided abdominal pain. Patient does report that he had a recent hospital admission with cardiac stenting. Patient denies any history of DVT or PE, any hemoptysis. He denies any recent infectious signs or symptoms. Review of systems otherwise negative. [facility] Medical History Asthma Atherosclerosis of coronary artery of [place] heart without angina pectoris Chest pain COPD (chronic obstructive pulmonary disease) COPD exacerbation Diabetes Former smoker Hepatitis Hypertension Hypothyroidism Irregular heart beat Kidney stones Home Medications lisinopril 10 mg PO DAILY #30 tab 12/14/18 [Rx Last Taken 01/18/21] furosemide 40 mg PO BID@1000,1800 tab 04/23/19 [Rx Last Taken 01/18/21] potassium chloride 20 meq PO DAILYCM tab 04/23/19 [Rx Last Taken 01/18/21] citalopram 20 mg PO DAILY 01/18/21 [History Last Taken 01/18/21] dulaglutide [Trulicity] 4.5 mg SUBCUT FR 01/18/21 [History Last Taken Unknown] duloxetine 60 mg PO DAILY 01/18/21 [History Last Taken 01/18/21] guaifenesin [Greer-Tussin] 200 mg PO QHS 01/18/21 [History Last Taken 01/17/21] metformin 1,000 mg PO BID 01/18/21 [History Last Taken 01/18/21] metoprolol tartrate 25 mg PO BID 01/18/21 [History Last Taken 01/17/21] mometasone-formoterol [Dulera] 2 puff INHALATION DAILY 01/18/21 [History Last Taken 01/18/21] aspirin 81 mg tablet,delayed release 81 mg PO DAILY 02/05/21 [History Last Taken Unknown] atorvastatin 10 mg tablet 80 mg PO QHS tab 02/05/21 [History Last Taken Unknown] levothyroxine 200 mcg capsule 200 mcg PO DAILY 02/05/21 [History Last Taken Unknown] levothyroxine 25 mcg capsule 25 mcg PO DAILY 02/05/21 [History Last Taken Unknown] sennosides 8.6 mg-docusate sodium 50 mg tablet 1 tab-cap PO QHS 02/05/21 [History Last Taken Unknown] sotalol 120 mg tablet 120 mg PO BID 02/05/21 [History Last Taken Unknown] tamsulosin 0.4 mg capsule 0.4 mg PO DAILY 02/05/21 [History Last Taken Unknown] ticagrelor 90 mg tablet 90 mg PO BID 02/05/21 [History Last Taken Unknown] albuterol sulfate 2 puff INHALATION Q4H PRN 02/11/21 [History Last Taken Unknown] Allergy/AdvReac Type Severity Reaction Status Date / Time No Known Allergies Allergy Verified 02/11/21 21:07 Surgical History History of coronary artery stent placement (01/18/21) History of thyroidectomy Social History Smoking Status: Former smoker ROS ROS ED Constitutional Constitutional ED: Denies fever(s) Eyes Eyes: Denies change in vision ENT ENT ED: Denies rhinorrhea or sore throat Cardiovascular Cardiovascular: Reports chest pain Respiratory/Chest Respiratory/Chest: Reports dyspnea Gastrointestinal Gastrointestinal: Denies abdominal pain, nausea or vomiting Genitourinary Genitourinary ED: Denies dysuria Musculoskeletal Musculoskeletal: Denies myalgias or neck pain Integumentary Denies rash Neurologic Neurologic: Reports headache(s) Psychiatric Psychiatric: Denies depression Endocrine Endocrinology: Denies polydipsia or polyuria Hematologic/Lymphatic Hematologic/Lymphatic: Denies easy bleeding or easy bruising Allergic/Immunologic Allergic/Immunologic ED: Denies urticaria EXAM Physical Exam Const Vital Signs: 02/11/21 21:08 02/11/21 21:11 02/11/21 21:20 Temperature 98.9 F Temperature Source Temporal Pulse Rate 92 90 Respiratory Rate 16 16 Respiratory Pattern Normal Blood Pressure 135/113 H 119/60 Blood Pressure Mean 120 79 Pulse Ox 94 94 Oxygen Delivery Method Room Air Room Air 02/11/21 21:51 Temperature Temperature Source Pulse Rate Respiratory Rate Respiratory Pattern Blood Pressure Blood Pressure Mean Pulse Ox 94 Oxygen Delivery Method Room Air Positive well nourished and well developed Constitutional Narrative: Obese male sitting upright in bed no acute distress General Appearance ED: well developed and NAD HEENT Reports moist mucous membranes normocephalic and atraumatic Eyes EOMs intact bilaterally Neck no lymphadenopathy, supple and no JVD Chest Wall inspection of chest normal and palpation of chest normal Chest Narrative: No evidence of vesicular rash Resp normal respiratory effort and clear to auscultation bilaterally Auscultation: Negative for rales, rhonchi or wheezes Cardio regular rate, regular rhythm, S1 normal heart sound, S2 normal heart sound and no murmurs Peripheral Pulses: radial pulses present and posterior tibial pulses present GI normal to inspection, nondistended, normoactive bowel sounds and soft to palpation GI Narrative: Tenderness palpation noted in the left mid abdomen which the patient states is chronic and unchanged Extremity normal to inspection Extremity Narrative: Calves are supple no palpable cord General Extremety ED: Yes edema; Negative for tenderness General Extremity: edema Neuro oriented x3 and no sensory deficits noted Sensorium / Orientation: awake and alert Psych mental status grossly normal Skin no rashes or lesions noted Skin Narrative: Chronic venous stasis changes of the legs bilaterally MDM MDM MDM Narrative Medical decision making narrative: Patient presented with chronic chest pain, some exertional dyspnea and pounding in his head. EKG was obtained was found to be unremarkable. CBC shows leukocytosis of 12,000 which is actually improved from patient's prior labs where he had 22,000. No signs of anemia, normal platelet count. Chemistry was unremarkable with normal renal function no electrolyte derangements. High-sensitivity troponin was found to be 5. Chest x-ray by my personal review as well as radiology shows some elevation of the patient's left hemidiaphragm, no signs of infiltrate. Patient had very atypical sounding symptoms, I do not believe that he requires further cardiac work-up or admission. Patient was given reassurance. Patient was discharged in stable condition. Lab Data Labs: Laboratory Results - last 24 hr 02/11/21 02/11/21 21:50 21:50 WBC 12.9 H RBC 4.46 L Hgb 13.7 Hct 41.2 MCV 92.4 MCH 30.7 MCHC 33.3 RDW Std Deviation 48.1 H RDW Coeff of Jovany 14.2 Plt Count 187 MPV 9.8 Immature Gran % (Auto) 0.400 Neut % (Auto) 72.9 H Lymph % (Auto) 15.9 L [place] % (Auto) 6.9 Eos % (Auto) 3.6 Baso % (Auto) 0.3 Absolute Neuts (auto) 9.4 H Absolute Lymphs (auto) 2.05 Nucleated RBC % 0 Sodium 135 L Potassium 4.3 Chloride 98 Carbon Dioxide 28.0 Anion Gap 9 BUN 15 Creatinine 0.83 Estim Creat Clear Calc 110.37 Est GFR (MDRD) Af Amer 123 Est GFR (MDRD) Non-Af 102 BUN/Creatinine Ratio 18.1 Glucose 228 H Calcium 8.9 Troponin I High Sens 5 Radiography Chest X-Ray - ED: 2 View, Read by ED Physician and Chronic Changes Diagnostic Testing: Radiology Impression Chest X-Ray 02/11/21 21:34 IMPRESSION: CHF and chronic left hemidiaphragm elevation. Electronically Signed: Javon Lee MD at 22:24 EDT Tel , Service support , EKG Initial EKG: Attestation: I personally reviewed and interpreted this EKG as follows: (Sinus rhythm at [address] segments normal T waves normal [place] and QTc intervals no evidence of acute ischemia or arrhythmia. No change from prior EKG in December of this year.) Discharge Plan Triage Chief Complaint: Chest Pain ED Provider: Michael Hermosillo Dx/Rx/DC Orders Clinical Impression: Atypical chest pain Instructions: ED Chest Pain, Noncardiac Prescriptions: No Action aspirin [Adult Low Dose Aspirin] 81 mg tablet,delayed release (DR/EC) 81 mg PO DAILY RF: 0 levothyroxine 200 mcg capsule 200 mcg PO DAILY RF: 0 levothyroxine 25 mcg capsule 25 mcg PO DAILY RF: 0 sennosides-docusate sodium [Senna Plus] 8.6-50 mg tablet 1 tab-cap PO QHS RF: 0 sotalol 120 mg tablet 120 mg PO BID RF: 0 tamsulosin 0.4 mg capsule 0.4 mg PO DAILY RF: 0 ticagrelor 90 mg tablet 90 mg PO BID RF: 0 lisinopril 10 MG tablet 10 mg PO DAILY Qty: 30 RF: 0 furosemide 40 MG tablet 40 mg PO BID@1000,1800 RF: 0 potassium chloride 20 MEQ tablet 20 meq PO DAILYCM RF: 0 duloxetine 60 mg capsule,delayed release(DR/EC) 60 mg PO DAILY RF: 0 Dulera 100-5 mcg/actuation Hfa Aerosol Inhaler 2 puff INHALATION DAILY RF: 0 Trulicity 3 mg/0.5 mL Pen Injector 4.5 mg SUBCUT FR RF: 0 guaifenesin [Gerer-Tussin] 100 mg/5 mL Liquid 200 mg PO QHS RF: 0 citalopram 20 mg tablet 20 mg PO DAILY RF: 0 metformin 1,000 mg tablet 1,000 mg PO BID RF: 0 metoprolol tartrate 25 mg tablet 25 mg PO BID RF: 0 atorvastatin 10 mg tablet 80 mg PO QHS RF: 0 albuterol sulfate 90 mcg/actuation HFA aerosol inhaler 2 puff INHALATION Q4H PRN (Reason: Shortness Of Breath Or Wheezing) RF: 0 Primary Care Provider: Nain Elizalde Referrals: Nain Elizalde MD [Primary Care Provider] - 3-5 Days Disposition Disposition: Home, Self Care
--- NOTE | 2021-02-11 21:34 | EKG12_ITS ---
Test Reason : CP Blood Pressure : / mmHG Vent. Rate : 090 BPM Atrial Rate : 090 BPM P-R Int : 192 ms QRS Dur : 090 ms QT Int : 366 ms P-R-T Axes : 030 -04 040 degrees QTc Int : 447 ms Normal sinus rhythm Inferior infarct , age undetermined Abnormal ECG Confirmed by JOSE ALEJANDRO HODGES, MYRIAM ([id number]), city editor ELODIA FARRAR ([id number]) on 02/15/2021 10:55:59 AM Referred By: JANETTE ZAPATA Confirmed By:MYRIAM BLOUNT MD
--- NOTE | 2021-02-11 21:34 | RAD_ITS ---
STUDY: X-RAY CHEST REASON FOR EXAM: Male, 55 years old. Chest pain TECHNIQUE: Portable, upright, AP chest radiograph COMPARISON: 01/18/2021 FINDINGS: Persistent left basilar atelectasis with elevated hemidiaphragm. The right lung appears clear. There is no demonstrated pleural abnormality. There is borderline cardiomegaly. Normal mediastinum and kalia. There is prominence of the pulmonary hilar arteries and peripheral pulmonary arteries, consistent with congestive heart failure (CHF). Normal visualized aortic arch and descending thoracic aorta. Thoracic Spine there is obscured by overlying soft tissue structures. Normal visualized ribs, clavicles, and shoulders. There is no demonstrated abnormality of the visualized soft tissue structures of the upper abdomen. RAD/Chest 1 View (Portable) IMPRESSION: CHF and chronic left hemidiaphragm elevation. Electronically Signed: Javon Lee MD at 22:24 EDT Tel , Service support ,
[2021-02-11 21:51] VITALS: O2SAT 94
[2021-02-11 21:59] LABS: Absolute Lymphocyte Count 2.05 X10^3/uL (0.83-4.51); Absolute Neutrophil Count 9.4 X10^3/uL (2.0-7.7); Basophil# 0.04 X10^3/uL; Basophil% 0.3 % (0-1); Eosinophil# 0.46 X10^3/uL; Eosinophils% 3.6 % (0-5); Hematocrit 41.2 % (40-54); Hemoglobin 13.7 g/dL (13.0-16.5); Lymphocyte # 2.05 X10^3/ul (0.83-4.51); Lymphocyte % 15.9 % (19-41); Mean Corp Hgb Conc 33.3 g/dL (32-36); Mean Corpuscular Hgb 30.7 pg (27.0-32.0); Mean Corpuscular Volume 92.4 fL (80-94); Mean Platelet Vol. 9.8 fl (6.2-12.0); Monocyte# 0.89 X10^3/uL; Monocyte% 6.9 % (0-10); NRBC Flagged by Analyzer 0 % (0-5); Neutrophil % 72.9 % (47-70); Platelet Count 187 K/mm3 (150-450); RBC Distribution Width CV 14.2 % (11.6-14.6); RBC Distribution Width SD 48.1 fl (35.1-43.9); Red Blood Count 4.46 M/mm3 (4.6-6.2); White Blood Count 12.9 K/mm3 (4.4-11.0)
[2021-02-11 22:30] LABS: Anion Gap 9 (5-15); BUN 15 mg/dL (7-18); BUN/Creat Ratio 18.1 RATIO (10-20); Calcium,Total 8.9 mg/dL (8.5-10.1); Chloride 98 mmol/L (98-107); Creatinine, Serum 0.83 mg/dL (0.70-1.30); EST Glomerular Filtration Rate 102 mL/min (>60); Est Glom Filt Rate - Afr Amer 123 mL/min (>60); Estimated Creatinine Clearance 110.37 ml/min; Glucose 228 mg/dL (74-106); Potassium 4.3 mmol/L (3.5-5.1); Sodium Level 135 mmol/L (136-145); Troponin-I HS 5 pg/mL (3.0-78.0)
[2021-02-11 23:10] VITALS: BP 120/83; PULSE 84; RESP 16; O2SAT 98
== END 2021-02-12 | disposition home or self-care (01) ==
PROVIDERS: Emergency Provider Emergency Medicine
DX: R07.89 Other chest pain (principal); I25.10 Atherosclerotic heart disease of native coronary artery without angina pectoris; J44.9 Chronic obstructive pulmonary disease, unspecified; E11.9 Type 2 diabetes mellitus without complications; I10 Essential (primary) hypertension; E03.9 Hypothyroidism, unspecified; Z79.51 Long term (current) use of inhaled steroids; Z79.82 Long term (current) use of aspirin; Z79.84 Long term (current) use of oral hypoglycemic drugs; Z87.891 Personal history of nicotine dependence; Z95.5 Presence of coronary angioplasty implant and graft
CPT/HCPCS: 71045; 80048; 84484; 85025; 93005; 99285; A4216

== ENCOUNTER → 2021-02-16 11:55 | Outpatient (CLI) | payer MEDICAID, SELFPAY ==
[2021-01-18 14:10] VITALS: BMI 50.4
== END ==
PROVIDERS: Referring Provider Internal Medicine Cardiovascular Disease; Visit Provider Internal Medicine Cardiovascular Disease
DX: I25.10 Atherosclerotic heart disease of native coronary artery without angina pectoris (principal); I47.2 Ventricular tachycardia; R55 Syncope and collapse; Z95.5 Presence of coronary angioplasty implant and graft
CPT/HCPCS: 93225; 93226

== ENCOUNTER → 2021-02-27 04:00 | Outpatient (REF) | payer MEDICAID, SELFPAY ==
[2021-02-27 09:16] LABS: Hematocrit 43.7 % (40-54); Hemoglobin 14.5 g/dL (13.0-16.5); Mean Corp Hgb Conc 33.2 g/dL (32-36); Mean Corpuscular Hgb 30.9 pg (27.0-32.0); Mean Platelet Vol. 9.8 fl (6.2-12.0); Platelet Count 188 K/mm3 (150-450); RBC Distribution Width CV 14.5 % (11.6-14.6); RBC Distribution Width SD 49.5 fl (35.1-43.9); White Blood Count 12.4 K/mm3 (4.4-11.0)
[2021-02-27 09:46] LABS: Anion Gap 7 (5-15); BUN 10 mg/dL (7-18); BUN/Creat Ratio 15.7 RATIO (10-20); Calcium,Total 8.8 mg/dL (8.5-10.1); Chloride 93 mmol/L (98-107); Cholesterol 101 mg/dL (200); Creatinine, Serum 0.64 mg/dL (0.70-1.30); EST Glomerular Filtration Rate 139 mL/min (>60); Est Glom Filt Rate - Afr Amer 168 mL/min (>60); Glucose 172 mg/dL (74-106); High Density Lipoprotein 33 mg/dL; Sodium Level 131 mmol/L (136-145); Thyroid Stim Hormone (TSH) 1.64 uIU/mL (0.358-3.74); Triglycerides 155 mg/dL; Very Low Density Lipoprotein 31 mg/dL (5-40)
[2021-02-27 09:49] LABS: Hemoglobin A1c 7.4 % (3.8-5.6)
== END ==
LOC: OLS.WCC 04:00
PROVIDERS: Visit Provider Family Medicine
DX: E11.9 Type 2 diabetes mellitus without complications (principal); I10 Essential (primary) hypertension; E78.5 Hyperlipidemia, unspecified; E03.9 Hypothyroidism, unspecified; Z79.899 Other long term (current) drug therapy
CPT/HCPCS: 36415; 80048; 80061; 83036; 84443; 85027

== ENCOUNTER → 2021-04-27 05:00 | Outpatient (REF) | payer MEDICAID, SELFPAY ==
[2021-04-27 07:20] LABS: Hematocrit 36.9 % (40-54); Hemoglobin 11.9 g/dL (13.0-16.5); Mean Corp Hgb Conc 32.2 g/dL (32-36); Mean Corpuscular Hgb 30.9 pg (27.0-32.0); Mean Corpuscular Volume 95.8 fL (80-94); Platelet Count 166 K/mm3 (150-450); RBC Distribution Width CV 13.8 % (11.6-14.6); RBC Distribution Width SD 48.4 fl (35.1-43.9); Red Blood Count 3.85 M/mm3 (4.6-6.2); White Blood Count 11.1 K/mm3 (4.4-11.0)
[2021-04-27 07:39] LABS: Anion Gap 5 (5-15); BUN 9 mg/dL (7-18); BUN/Creat Ratio 13.6 RATIO (10-20); Calcium,Total 8.3 mg/dL (8.5-10.1); Chloride 98 mmol/L (98-107); Creatinine, Serum 0.66 mg/dL (0.70-1.30); EST Glomerular Filtration Rate 133 mL/min (>60); Est Glom Filt Rate - Afr Amer 160 mL/min (>60); Glucose 268 mg/dL (74-106); Potassium 3.9 mmol/L (3.5-5.1); Sodium Level 133 mmol/L (136-145)
== END ==
LOC: OLS.WCC 05:00
PROVIDERS: Visit Provider Family Medicine
DX: E11.9 Type 2 diabetes mellitus without complications (principal); I10 Essential (primary) hypertension; E78.5 Hyperlipidemia, unspecified; Z79.899 Other long term (current) drug therapy; Z79.01 Long term (current) use of anticoagulants
CPT/HCPCS: 36415; 80048; 83036; 85027

== ENCOUNTER → 2021-07-16 | Outpatient (REF) | payer MEDICAID, SELFPAY | END | disposition home or self-care (01) | LOC: OLS.WCC 15:55 | PROVIDERS: Visit Provider Family Medicine | DX: Z20.822 Contact with and (suspected) exposure to COVID-19 (principal) | CPT/HCPCS: 87635; U0003; U0005 ==

== ENCOUNTER 2021-09-13 11:28 | Inpatient (IN) | payer MEDICARE, MEDICAID, SELFPAY ==
[2021-09-13] VITALS (11 sets, daily range): BP systolic 109–126; BP diastolic 52–86; PULSE 58–123; RESP 12–18; TEMP 36.1–36.6; O2SAT 92–100; BMI 43.8; BMI 41.0
--- NOTE | 2021-09-13 12:23 | EKG12_ITS ---
Test Reason : VTACH Blood Pressure : / mmHG Vent. Rate : 102 BPM Atrial Rate : 102 BPM P-R Int : 174 ms QRS Dur : 090 ms QT Int : 362 ms P-R-T Axes : 043 005 047 degrees QTc Int : 471 ms Sinus tachycardia with frequent and consecutive Premature ventricular complexes Low voltage QRS Abnormal ECG Confirmed by JOSE ALEJANDRO HODGES, MYRIAM ([id number]), assistant production editor ELODIA FARRAR ([id number]) on 09/17/2021 10:40:12 AM Referred By: SLOAN/ESTRELLA Confirmed By:MYRIAM BLOUNT MD
--- NOTE | 2021-09-13 12:25 | EX.ED.DYSGE1 ---
HPI History of Present Illness Chief Complaint: Weakness Informant: patient Onset/Context/Timing Onset: Today Current Severity: Mild Maximum Severity: Mild Narrative Narrative: 56-year-old male history of CAD with 1 stent, COPD and diabetes. Today just felt weak. At times he felt dizzy and lightheaded. Says he thought his heart rate might be running low. He denies any chest pain. Currently denies any shortness of breath. Denies any nausea vomiting or diarrhea or recent illness. No fever or chills. Prior similar symptoms: No Recent Illness/Hospitalization: No PFSH PFSH Medical History Asthma Atherosclerosis of coronary artery of [place] heart without angina pectoris Chest pain COPD (chronic obstructive pulmonary disease) COPD exacerbation Diabetes Former smoker Hepatitis Hypertension Hypothyroidism Irregular heart beat Kidney stones Home Medications lisinopril 10 mg PO DAILY #30 tab 12/14/18 [Rx Last Taken 01/18/21] furosemide 40 mg PO BID@1000,1800 tab 04/23/19 [Rx Last Taken 01/18/21] potassium chloride 20 meq PO DAILYCM tab 04/23/19 [Rx Last Taken 01/18/21] metformin 1,000 mg PO BID 01/18/21 [History Last Taken 01/18/21] metoprolol tartrate 25 mg PO BID 01/18/21 [History Last Taken 01/17/21] mometasone-formoterol [Dulera] 2 puff INHALATION DAILY 01/18/21 [History Last Taken 01/18/21] aspirin 81 mg tablet,delayed release 81 mg PO DAILY 02/05/21 [History Last Taken Unknown] atorvastatin 10 mg tablet 80 mg PO QHS tab 02/05/21 [History Last Taken Unknown] levothyroxine 200 mcg capsule 200 mcg PO DAILY 02/05/21 [History Last Taken Unknown] levothyroxine 25 mcg capsule 25 mcg PO DAILY 02/05/21 [History Last Taken Unknown] sennosides 8.6 mg-docusate sodium 50 mg tablet 2 tab-cap PO QHS 02/05/21 [History Last Taken Unknown] sotalol 120 mg tablet 120 mg PO BID 02/05/21 [History Last Taken Unknown] tamsulosin 0.4 mg capsule 0.4 mg PO DAILY 02/05/21 [History Last Taken Unknown] ticagrelor 90 mg tablet 90 mg PO BID 02/05/21 [History Last Taken Unknown] albuterol sulfate 2 puff INHALATION Q4H PRN 02/11/21 [History Last Taken Unknown] dulaglutide 4.5 mg/0.5 mL subcutaneous pen injector 4.5 mg SUBCUT QWEEK ml 05/22/21 [History Last Taken Unknown] duloxetine 60 mg capsule,delayed release 60 mg PO BID cap 05/22/21 [History Last Taken Unknown] Allergy/AdvReac Type Severity Reaction Status Date / Time No Known Allergies Allergy Verified 09/13/21 11:33 Surgical History History of coronary artery stent placement (01/18/21) History of thyroidectomy Social History Smoking Status: Former smoker how long ago did patient quit smokin years ago alcohol intake: never substance use type: does not use caffeine: Yes Type: carbonated beverages ROS ROS ED ROS Narrative Lightheaded. Review of Systems ROS Unobtainable: Denies due to encephalopathy Constitutional Constitutional ED: Denies fever(s) Eyes Eyes: Denies change in vision ENT ENT ED: Denies ear pain Cardiovascular Cardiovascular: Denies chest pain Respiratory/Chest Respiratory/Chest: Denies dyspnea Gastrointestinal Gastrointestinal: Denies abdominal pain, constipation, diarrhea, nausea or vomiting Musculoskeletal Musculoskeletal: Denies myalgias Integumentary Denies rash Neurologic Neurologic: Denies headache(s) Psychiatric Psychiatric: Denies depression Endocrine Endocrinology: Denies polyuria Allergic/Immunologic Allergic/Immunologic ED: Denies urticaria EXAM Physical Exam Narrative Exam Narrative: 56-year-old male no acute distress. Vital signs stable afebrile has frequent PVCs on the monitor. HEENT exam unremarkable. Neck nontender. No JVD. Lungs clear to auscultation. Heart tachycardic rate about 110 no murmur. Chest wall nontender. Abdomen soft nontender. Obese. Moving all 4 extremities. 1+ pitting edema. Normal interventional radiology tech strength bilaterally. Normal dorsi plantar flexion. Neurologically awake with no focal motor deficits. Const Vital Signs: 09/13/21 11:29 09/13/21 13:11 09/13/21 14:12 Temperature 97.8 F Temperature Source Temporal Pulse Rate 111 H 85 86 Respiratory Rate 12 16 14 Blood Pressure 122/64 H 110/66 123/60 H Blood Pressure Mean 83 80 81 Pulse Ox 97 100 96 Oxygen Delivery Method Room Air Room Air Room Air Positive well nourished and well developed; Negative for obese, cachectic, contractures or unkempt General Appearance ED: well developed and NAD; Negative for unkempt, cachectic, contractures, cyanotic, diaphoretic or pallor Nutritional Appearance: Negative for cachectic or obese HEENT Reports moist mucous membranes Negative for trauma or tenderness Eyes PERRL and EOMs intact bilaterally General Eye ED: Negative for pale conjunctiva or scleral icterus Neck no lymphadenopathy, supple and no JVD General: Negative for tenderness Chest Wall inspection of chest normal and palpation of chest normal Resp normal respiratory effort and clear to auscultation bilaterally Auscultation: Negative for rales, rhonchi or wheezes Cardio regular rate, regular rhythm, S1 normal heart sound, S2 normal heart sound and no murmurs GI normal to inspection, nondistended, normoactive bowel sounds, non-tender, non-distended and no masses Inspection: Negative for abdominal distention Auscultation: normoactive bowel sounds Palpation: soft; Negative for tender, guarding or rebound tenderness present Back/Spine no CVA tenderness General Back: Negative for CVA tenderness Cervical Spine: Negative for cervical spine tenderness Thoracic Spine / Upper Back: Negative for thoracic spinal tenderness Extremity normal to inspection General Extremety ED: Yes edema; Negative for tenderness General Extremity: edema Neuro oriented x3 Sensorium / Orientation: alert; Negative for orientation impaired, lethargic or stuporous Motor Exam: strength 5/5 throughout Psych mental status grossly normal Appearance: Negative for unkempt Mood & Affect: Negative for depressed or tearful Skin no rashes or lesions noted and no wounds General Skin Exam: Negative for jaundice or pallor MDM MDM MDM Narrative Medical decision making narrative: 56-year-old male with lightheadedness. Undergo a cardiac work-up. Repeat exam patient is doing well 3:30 PM. Exam benign. I will speak to the hospitalist about admission. Lab Data Attestation: I reviewed the patient's lab results. Lab results narrative: CBC shows white count 13. H&H of 13 and 41. Platelets 209. Electrolytes show a gap of 8 normal BUN and creatinine. Glucose 213. Troponin normal at 3. Labs: Laboratory Results - last 24 hr 09/13/21 09/13/21 12:10 12:10 WBC 13.0 H RBC 4.49 L Hgb 13.8 Hct 41.3 MCV 92.0 MCH 30.7 MCHC 33.4 RDW Std Deviation 46.7 H RDW Coeff of Jovany 13.9 Plt Count 209 MPV 10.0 Immature Gran % (Auto) 0.500 Neut % (Auto) 75.1 H Lymph % (Auto) 15.4 L [place] % (Auto) 5.4 Eos % (Auto) 3.2 Baso % (Auto) 0.4 Absolute Neuts (auto) 9.8 H Absolute Lymphs (auto) 2.01 Nucleated RBC % 0 Sodium 136 Potassium 3.8 Chloride 98 Carbon Dioxide 30.0 Anion Gap 8 BUN 10 Creatinine 0.81 Estim Creat Clear Calc 115.08 Est GFR (MDRD) Af Amer 127 Est GFR (MDRD) Non-Af 105 BUN/Creatinine Ratio 12.4 Glucose 213 H Calcium 9.1 Troponin I High Sens 3 Radiography Chest X-Ray - ED: 1 View, Read by ED Physician, Heart, Lungs, Mediastinum, Bony Structures, No Acute Disease and Chronic Changes Diagnostic Testing: Clinical Impression(s) from Imaging Studies Chest X-Ray 09/13/21 12:30 IMPRESSION: Elevation of the left hemidiaphragm with increased markings at the left lung base suggestive of a basilar atelectasis superimposed on scarring. This has progressed as compared to prior study. Electronically Signed: Hernando Cook MD at 12:55 EDT , Chest x-ray, portable, read by myself and radiologist shows chronic changes. Atelectasis. No acute process. Rhythm Strip Rhythm Strip: Sinus Tach Rate: 102 Ectopy: PVC(s) EKG Initial EKG: Interpretation: Sinus Rhythm, No Acute Injury Pattern and Sinus Tachycardia Comments: Sinus tachycardia rate of 102. Frequent PVCs. No acute signs of UT or ischemia. Discharge Plan Triage Chief Complaint: Weakness ED Provider: Antoine Hahn Dx/Rx/DC Orders Prescriptions: No Action aspirin [Adult Low Dose Aspirin] 81 mg tablet,delayed release (DR/EC) 81 mg PO DAILY RF: 0 levothyroxine 200 mcg capsule 200 mcg PO DAILY RF: 0 levothyroxine 25 mcg capsule 25 mcg PO DAILY RF: 0 sennosides-docusate sodium [Senna Plus] 8.6-50 mg tablet 2 tab-cap PO QHS RF: 0 sotalol 120 mg tablet 120 mg PO BID RF: 0 tamsulosin 0.4 mg capsule 0.4 mg PO DAILY RF: 0 ticagrelor 90 mg tablet 90 mg PO BID RF: 0 Trulicity 4.5 mg/0.5 mL pen injector 4.5 mg subcut QWEEK RF: 0 lisinopril 10 MG tablet 10 mg PO DAILY Qty: 30 RF: 0 furosemide 40 MG tablet 40 mg PO BID@1000,1800 RF: 0 potassium chloride 20 MEQ tablet 20 meq PO DAILYCM RF: 0 Dulera 100-5 mcg/actuation Hfa Aerosol Inhaler 2 puff INHALATION DAILY RF: 0 metformin 1,000 mg tablet 1,000 mg PO BID RF: 0 metoprolol tartrate 25 mg tablet 25 mg PO BID RF: 0 atorvastatin 10 mg tablet 80 mg PO QHS RF: 0 duloxetine 60 mg capsule,delayed release(DR/EC) 60 mg PO BID RF: 0 albuterol sulfate 90 mcg/actuation HFA aerosol inhaler 2 puff INHALATION Q4H PRN (Reason: Shortness Of Breath Or Wheezing) RF: 0 Primary Care Provider: Nain Elizalde
--- NOTE | 2021-09-13 12:30 | RAD_ITS ---
STUDY: X-RAY CHEST REASON FOR EXAM: Male, 56 years old. Chest pain TECHNIQUE: Single AP portable view of the chest. COMPARISON: Comparison is made with prior study dated 02/11/2021. FINDINGS: EKG electrodes are seen. Stable elevation of the left hemidiaphragm with left basilar atelectasis and/or infiltrate. This has progressed as compared to prior study. There is no demonstrated pleural abnormality. Normal size heart. Normal mediastinum and kalia. Normal visualized pulmonary arteries. There is atherosclerotic tortuosity of the aortic arch and descending thoracic aorta. There are diffuse degenerative changes of the visualized thoracic spine. Normal visualized ribs, clavicles, and shoulders. There is no demonstrated abnormality of the visualized soft tissue structures of the upper abdomen. RAD/Chest 1 View (Portable) IMPRESSION: Elevation of the left hemidiaphragm with increased markings at the left lung base suggestive of a basilar atelectasis superimposed on scarring. This has progressed as compared to prior study. Electronically Signed: Hernando Cook MD at 12:55 EDT ,
[2021-09-13 12:32] LABS: Absolute Lymphocyte Count 2.01 X10^3/uL (0.83-4.51); Absolute Neutrophil Count 9.8 X10^3/uL (2.0-7.7); Basophil# 0.05 X10^3/uL; Basophil% 0.4 % (0-1); Eosinophil# 0.42 X10^3/uL; Eosinophils% 3.2 % (0-5); Hematocrit 41.3 % (40-54); Hemoglobin 13.8 g/dL (13.0-16.5); Lymphocyte # 2.01 X10^3/ul (0.83-4.51); Lymphocyte % 15.4 % (19-41); Mean Corp Hgb Conc 33.4 g/dL (32-36); Mean Corpuscular Hgb 30.7 pg (27.0-32.0); Monocyte# 0.71 X10^3/uL; Monocyte% 5.4 % (0-10); NRBC Flagged by Analyzer 0 % (0-5); Neutrophil # 9.77 X10^3/uL (2.7-7.7); Neutrophil % 75.1 % (47-70); Platelet Count 209 K/mm3 (150-450); RBC Distribution Width CV 13.9 % (11.6-14.6); RBC Distribution Width SD 46.7 fl (35.1-43.9); Red Blood Count 4.49 M/mm3 (4.6-6.2)
[2021-09-13 13:01] LABS: Anion Gap 8 (5-15); BUN 10 mg/dL (7-18); BUN/Creat Ratio 12.4 RATIO (10-20); Calcium,Total 9.1 mg/dL (8.5-10.1); Chloride 98 mmol/L (98-107); Creatinine, Serum 0.81 mg/dL (0.70-1.30); EST Glomerular Filtration Rate 105 mL/min (>60); Est Glom Filt Rate - Afr Amer 127 mL/min (>60); Estimated Creatinine Clearance 115.08 ml/min; Glucose 213 mg/dL (74-106); Potassium 3.8 mmol/L (3.5-5.1); Sodium Level 136 mmol/L (136-145); Troponin-I HS 3 pg/mL (3.0-78.0)
--- NOTE | 2021-09-13 16:24 | HP.PCM.HOS_ITS ---
HPI - General General Date of Admission: 09/13/21 HPI Narrative ZAK HOYT, is a 56 M who presents via the ED with a complaint of weakness. He said he felt dizzy and lightheaded, though he didnt pass out. Patient thought he may be having a slow heart rate. He tells me his heart rate went as low as the 40s. He says he has had such bradycardia in the past. EMR captured some PVCs and ?wide complex tachycardia. There was concern about whether he was having Vtach. HE denied any nausea, vomiting, fever, chills, palpitations, chest pain, diarrhea or any other symptoms. Review of systems is otherwise negative. Vitals in the ED were blood pressure 121/73, pulse rate of 85, respiratory rate of 16 and oxygen saturation of 97% on room air. CBC showed WBC of 13 and hemoglobin of 13.8 and platelets of 219. BMP was unremarkable. Chest x-ray showed elevation of the left hemidiaphragm with increased markings at the left lung base suggestive of basal atelectasis superimposed on scarring. He is being admitted to be managed for weakness and bradycardia. [facility] Medical History Asthma Atherosclerosis of coronary artery of [place] heart without angina pectoris Chest pain COPD (chronic obstructive pulmonary disease) COPD exacerbation Diabetes Former smoker Hepatitis Hypertension Hypothyroidism Irregular heart beat Kidney stones Home Medications furosemide 40 mg PO BID@1000,1800 tab 04/23/19 [Rx Last Taken 09/12/21] potassium chloride 20 meq PO DAILYCM tab 04/23/19 [Rx Last Taken 09/13/21] metformin 1,000 mg PO BID 01/18/21 [History Last Taken 09/13/21] metoprolol tartrate 25 mg PO BID 01/18/21 [History Last Taken 09/13/21] mometasone-formoterol [Dulera] 2 puff INHALATION DAILY 01/18/21 [History Last Taken 09/13/21] aspirin 81 mg tablet,delayed release 81 mg PO DAILY 02/05/21 [History Last Taken Unknown] atorvastatin 10 mg tablet 80 mg PO QHS tab 02/05/21 [History Last Taken 09/12/21] levothyroxine 200 mcg capsule 225 mcg PO DAILY 02/05/21 [History Last Taken 09/13/21] sennosides 8.6 mg-docusate sodium 50 mg tablet 2 tab-cap PO QHS 02/05/21 [History Last Taken Unknown] sotalol 120 mg tablet 120 mg PO BID 02/05/21 [History Last Taken 09/13/21] tamsulosin 0.4 mg capsule 0.4 mg PO DAILY 02/05/21 [History Last Taken 09/12/21] ticagrelor 90 mg tablet 90 mg PO BID 02/05/21 [History Last Taken 09/13/21] albuterol sulfate 2 puff INHALATION Q4H PRN 02/11/21 [History Last Taken Unknown] dulaglutide 4.5 mg/0.5 mL subcutaneous pen injector 4.5 mg SUBCUT QWEEK ml 05/22/21 [History Last Taken 09/07/21] duloxetine 60 mg capsule,delayed release 60 mg PO BID cap 05/22/21 [History Last Taken 09/13/21] lisinopril 10 mg PO DAILY 09/13/21 [History Last Taken 09/13/21] Allergy/AdvReac Type Severity Reaction Status Date / Time No Known Allergies Allergy Verified 09/13/21 11:33 Surgical History History of coronary artery stent placement (01/18/21) History of thyroidectomy Social History Smoking Status: Former smoker how long ago did patient quit smokin years ago alcohol intake: never substance use type: does not use caffeine: Yes Type: carbonated beverages ROS Constitutional Constitutional: Reports fatigue, malaise and weakness; Denies anorexia, chills or fever(s) Eyes Eyes: Denies change in vision ENT HEENT: Denies abnormal hearing or dysphagia Cardiovascular Cardiovascular: Reports lightheadedness; Denies chest pain, dyspnea on exertion, edema, orthopnea, palpitations, paroxysmal nocturnal dyspnea, rapid heart rate or syncope Respiratory/Chest Respiratory/Chest: Denies cough, dyspnea, productive cough, shortness of breath at rest, shortness of breath with exertion or wheezing Gastrointestinal Gastrointestinal: Denies abdominal pain, nausea or vomiting Genitourinary Genitourinary: Denies burning urination or dysuria Musculoskeletal Musculoskeletal: Denies back pain or joint pain Neurologic Neurologic: Denies confusion Psychiatric Psychiatric: Denies anxiety or depression Hematologic/Lymphatic Hematologic/Lymphatic: Denies anemia Allergic/Immunologic Allergic/Immunologic: Reports asthma Vital Signs Vital Signs Vital Signs: 09/13/21 11:29 09/13/21 13:11 09/13/21 14:12 Temperature 97.8 F Temperature Source Temporal Pulse Rate 111 H 85 86 Respiratory Rate 12 16 14 Blood Pressure 122/64 H 110/66 123/60 H Blood Pressure Mean 83 80 81 Pulse Ox 97 100 96 Oxygen Delivery Method Room Air Room Air Room Air 09/13/21 15:57 Temperature Temperature Source Pulse Rate 85 Respiratory Rate 16 Blood Pressure 121/73 H Blood Pressure Mean 89 Pulse Ox 97 Oxygen Delivery Method Room Air Weight Weight: 332 lb 7.313 oz Body Mass Index (BMI) 43.8 Physical Exam Const alert, oriented x3 and no apparent distress General Appearance: cooperative HEENT normocephalic, head/scalp atraumatic, hearing grossly normal bilaterally and moist oral mucous membranes Eyes PERRL, EOMs intact bilaterally and conjunctivae normal Neck no lymphadenopathy, supple and no JVD Resp normal respiratory effort, no retractions, no use of accessory muscles and clear to auscultation bilaterally Cardio regular rate, regular rhythm, S1 normal heart sound, S2 normal heart sound and no murmurs GI normal to inspection, nondistended, normoactive bowel sounds, soft to palpation and non-tender Extremity normal to inspection, full ROM and no clubbing, cyanosis or edema Peripheral Pulses: Yes pulses 2+ throughout Skin no rashes or lesions noted Neuro oriented x3 and CN's II-XII intact bilaterally Sensorium / Orientation: awake and alert Psych affect normal Results Lab / Micro Data Result Diagrams: 09/13/21 12:10 09/13/21 12:10 Labs: Laboratory Results - last 24 hr 09/13/21 12:10: WBC 13.0 H, RBC 4.49 L, Hgb 13.8, Hct 41.3, MCV 92.0, MCH 30.7, MCHC 33.4, RDW Std Deviation 46.7 H, RDW Coeff of Jovany 13.9, Plt Count 209, MPV 10.0, Immature Gran % (Auto) 0.500, Neut % (Auto) 75.1 H, Lymph % (Auto) 15.4 L, [place] % (Auto) 5.4, Eos % (Auto) 3.2, Baso % (Auto) 0.4, Absolute Neuts (auto) 9.8 H, Absolute Lymphs (auto) 2.01, Nucleated RBC % 0 09/13/21 12:10: Sodium 136, Potassium 3.8, Chloride 98, Carbon Dioxide 30.0, Anion Gap 8, BUN 10, Creatinine 0.81, Estim Creat Clear Calc 115.08, Est GFR (MDRD) Af Amer 127, Est GFR (MDRD) Non-Af 105, BUN/Creatinine Ratio 12.4, Glucose 213 H, Calcium 9.1, Troponin I High Sens 3 Rhythm Strip Rhythm Strip: Sinus Tach Rate: 102 Ectopy: PVC(s) Radiology Impression Chest X-Ray 09/13/21 12:30 IMPRESSION: Elevation of the left hemidiaphragm with increased markings at the left lung base suggestive of a basilar atelectasis superimposed on scarring. This has progressed as compared to prior study. Electronically Signed: Hernando Cook MD at 12:55 EDT , Assessment & Plan Assessment/Plan (1) Dizziness: (2) Bradycardia: PLAN: #Near syncope * thought to be due to near syncope * patient says he felt lightheaded and dizzy and realised his heart rate was slow * per EMS, there was concern for vtach, * EKG showed NSR with some PVCs * admit to PCU with telemetry * potassium WNL; will check magnesium * consult cardiology * ordeer 2D echo * #History of CAD s/p stent * On aspirin and Brilinta as well as metoprolol and high intensity statin * #Type 2 diabetes mellitus: Hold Metformin. On dulaglutide weekly. Insulin sliding scale. Checks ACH S. #Hypothyroidism: On Synthroid #Hypertension: On lisinopril and metoprolol #Hypothyroidism: On Synthroid #Hyperlipidemia: On statin * #HFpEF: has known EF of 60%. nOt in exacerbation. on lasix 40mg bid * DVT prophylaxis: lovenox CODE STATUS: Full code * Patient counseled extensively about different types of CODE STATUS including full code, DNR CCA and DNR CCA. Patient elects to be full code. * Total [id number] time 17 minutes. Charges/Coding Visit Charges OBSV E&M: 19390 Initial observation care L3 Procedures Hospitalists Procedures: 94218 Advncd Care Plan 30 Min
--- NOTE | 2021-09-13 17:43 | ECHOCS_ITS ---
Reason For Study: Arrhythmia Procedure This was a 2D Doppler, Color Flow transthoracic echocardiogram. The study was technically difficult. The study was technically limited. Exam performed portable in patient room. Left Ventricle Normal left ventricle. The estimated ejection fraction is 55-60 %. Right Ventricle The right ventricle is not well visualized. Atria The left atrium is mildly enlarged. Normal right atrium. Mitral Valve Trivial eccentric mitral valve insufficiency. Tricuspid Valve Normal tricuspid valve. No tricuspid valve insufficiency. Aortic Valve Mild focal aortic valve calcification. Trivial aortic valve insufficiency. Pulmonic Valve The pulmonic valve is not well visualized. Pericardium/Pleural No pericardial effusion. Medication Diluted definity 2ml given slow IV push to enhance endocardial definition. MMode/2D Measurements & Calculations Ao root diam: 3.7 cm LA dimension(2D): 4.0 cm Doppler Measurements & Calculations MV E max navin: 49.0 cm/sec Lat Peak E' Navin: 9.9 cm/sec Med Peak E' Navin: 6.9 cm/sec MV A max navin: 73.6 cm/sec E/E' lat: 5.0 E/E' med: 7.1 MV E/A: 0.67 Ao V2 max: 153.9 cm/sec LV V1 max: 112.2 cm/sec PA V2 max: 119.2 cm/sec Ao max P.5 mmHg LV V1 max P.0 mmHg ECHO/Echo Complete W/ Contrast Interpretation Summary The estimated ejection fraction is 55-60 %. Normal LV systolic function No significant changes from prior Echo Ordering Physician: Iwona Benton Performed By: Mayuri Kelsey RDCS
[2021-09-13 18:25] LABS: Bedside Glucose 111 mg/dL (74-106)
[2021-09-13] MEDS: Furosemide 40 MG Tablet PO (18:46)
[2021-09-13 19:19] LABS: Troponin-I HS < 3 pg/mL (3.0-78.0)
[2021-09-13] MEDS: Senna/Docusate Sodium 1 Tablet 2 TABLET PO (19:45)
[2021-09-13] MEDS: DULoxetine Hcl 60 MG Capsule PO (19:45)
[2021-09-13] MEDS: TICAGRELOR 90 MG TABLET PO (19:45)
[2021-09-13] MEDS: Atorvastatin Calcium 80 MG Tablet PO (19:45)
--- NOTE | 2021-09-13 19:47 | NURSING ---
Meds given. Pt new admission getting caught up on missed meds
--- NOTE | 2021-09-13 20:48 | NURSING ---
pt up to bathroom. return to his chair. pt has 6 beat run of vtach and then a couple 3 beats. denies any complaints . vitals done
[2021-09-13] MEDS: Budesonide Respules 0.5 MG/2 ML AMPUL.NEB. INHALATION (21:10)
[2021-09-13] MEDS: Albuterol 2.5 MG/3 ML VIAL.NEB. INHALATION (21:10)
[2021-09-13 21:31] LABS: Magnesium 1.8 mg/dL (1.6-2.6); Phosphorus 3.2 mg/dL (2.5-4.9)
[2021-09-13] MEDS: Potassium Chloride Oral Tablet 20 MEQ 40 MEQ PO (21:39)
--- NOTE | 2021-09-13 21:47 | NURSING ---
Pt having 13 beat run of vtach. pt denies and complaints. hr 116. bp 109/57
[2021-09-13] MEDS: Insulin Lispro 100 UNIT/ML INSULN.PEN SC (21:48)
[2021-09-13 22:01] LABS: Bedside Glucose 197 mg/dL (74-106)
--- NOTE | 2021-09-13 22:34 | EKG12_ITS ---
Test Reason : RHYTHM CHANGE Blood Pressure : / mmHG Vent. Rate : 137 BPM Atrial Rate : 101 BPM P-R Int : 214 ms QRS Dur : 094 ms QT Int : 344 ms P-R-T Axes : 057 012 056 degrees QTc Int : 519 ms Sinus tachycardia with 1st degree A-V block with frequent and consecutive Premature ventricular compl exes Abnormal ECG When compared with ECG of 13-SEP-2021 11:34, MANUAL COMPARISON REQUIRED, DATA IS UNCONFIRMED Confirmed by JOSE ALEJANDRO HODGES, MYRIAM ([id number]), film and video editor ELODIA FARRAR ([id number]) on 09/17/2021 10:48:27 AM Referred By: DR ALVARADO Confirmed By:MYRIAM BLOUNT MD
[2021-09-13] MEDS: Metoprolol Tartrate 25 MG Tablet PO (22:46)
--- NOTE | 2021-09-13 22:48 | NURSING ---
ekg texted to denzel
--- NOTE | 2021-09-13 22:56 | PCM.HOSP.N ---
Hospitalist Note Nurse called me that patient has frequent PVCs. Twelve-lead EKG done shows sinus tachycardia at 137 bpm with frequent PVCs. First-degree block. Metoprolol 25 mg p.o. twice daily started first dose now. Magnesium 1.8, magnesium 2 g IV infusion 1 dose started. Potassium 3.8. Patient is on potassium supplement. Serum phosphorus normal. Continue to monitor.
[2021-09-13] MEDS: Acetaminophen 325 MG Tablet 650 MG PO (23:42)
[2021-09-14] VITALS (17 sets, daily range): BP systolic 100–117; BP diastolic 64–78; PULSE 60–120; RESP 18–20; TEMP 36.4–36.6; O2SAT 95–100
--- NOTE | 2021-09-14 00:25 | NURSING ---
Dr mahoney here to see pt
[2021-09-14] MEDS: Metoprolol Tartrate 25 MG Tablet 12.5 MG PO (00:45)
[2021-09-14 05:38] LABS: Absolute Lymphocyte Count 2.74 X10^3/uL (0.83-4.51); Absolute Neutrophil Count 9.7 X10^3/uL (2.0-7.7); Basophil# 0.06 X10^3/uL; Basophil% 0.4 % (0-1); Eosinophil# 0.74 X10^3/uL; Eosinophils% 5.3 % (0-5); Hematocrit 39.5 % (40-54); Hemoglobin 13.3 g/dL (13.0-16.5); Lymphocyte # 2.74 X10^3/ul (0.83-4.51); Lymphocyte % 19.7 % (19-41); Mean Corp Hgb Conc 33.7 g/dL (32-36); Mean Corpuscular Hgb 30.9 pg (27.0-32.0); Mean Corpuscular Volume 91.9 fL (80-94); Mean Platelet Vol. 9.7 fl (6.2-12.0); Monocyte# 0.68 X10^3/uL; Monocyte% 4.9 % (0-10); NRBC Flagged by Analyzer 0 % (0-5); Neutrophil # 9.65 X10^3/uL (2.7-7.7); Neutrophil % 69.2 % (47-70); Platelet Count 204 K/mm3 (150-450); RBC Distribution Width SD 47.1 fl (35.1-43.9); White Blood Count 13.9 K/mm3 (4.4-11.0)
[2021-09-14] MEDS: Levothyroxine 100 MCG Tablet 200 MCG PO (05:41)
[2021-09-14] MEDS: 0.9% Saline Lock 10 ML Syringe IV (05:42)
[2021-09-14 06:10] LABS: Anion Gap 6 (5-15); BUN 12 mg/dL (7-18); Calcium,Total 8.5 mg/dL (8.5-10.1); Chloride 100 mmol/L (98-107); Creatinine, Serum 0.63 mg/dL (0.70-1.30); EST Glomerular Filtration Rate 140 mL/min (>60); Est Glom Filt Rate - Afr Amer 169 mL/min (>60); Estimated Creatinine Clearance 147.96 ml/min; Glucose 152 mg/dL (74-106); Potassium 3.9 mmol/L (3.5-5.1); Sodium Level 134 mmol/L (136-145)
[2021-09-14] MEDS: Insulin Lispro 100 UNIT/ML INSULN.PEN SC ×4 (06:34→20:52)
[2021-09-14 06:41] LABS: Bedside Glucose 157 mg/dL (74-106)
[2021-09-14] MEDS: Albuterol 2.5 MG/3 ML VIAL.NEB. INHALATION ×3 (07:01→19:32)
[2021-09-14] MEDS: Budesonide Respules 0.5 MG/2 ML AMPUL.NEB. INHALATION ×2 (07:01→19:32)
--- NOTE | 2021-09-14 08:35 | CON.PCM.CA_ITS ---
Documented by User: CLAUDIA Zhang 09/14/21 14:57 Assessment & Plan Assessment/Plan (1) Atherosclerosis of coronary artery of quinault heart without angina pectoris: QUALIFIERS: Coronary Disease-Associated Artery/Lesion type: [place] artery Qualified Code(s): I25.10 - Atherosclerotic heart disease of [place] coronary artery without angina pectoris (2) History of coronary artery stent placement: (3) Hypertension: QUALIFIERS: Hypertension type: unspecified Qualified Code(s): I10 - Essential (primary) hypertension (4) NSVT (nonsustained ventricular tachycardia): (5) Bradycardia: PLAN: * Pt does have a hx of NSVT. Would like to resume his sotalol and discontinue his metoprolol. Will monitor his PVCs. If they are stable and have not worsening okay to d/c home with a 30 day event monitor. * with his negative troponin feel that stress test/echo could be done on OP basis. * electrolytes are normal HPI Consult Data Date of Consult: 09/14/21 HPI Narrative HPI Narrative: ZAK HOYT, is a 56 M who presented to the ER for over low HR. He also had weakness/lightheadedness. he did have NSVT on monitor. He was admitted for a cardiac workup. He does have a history of CAD with bare metal stenting to his mid LAD (12/2020). After his stenting he continued to have concerns over NSVT despite being on amiodarone. He was transferred to [facility] for EP evaluation. Amiodarone was switched to Sotalol. he did not undergo an ablation. Pt notes that at home he was having low HRs in the 40s. On the EMS telemetry there was concern over wide complex tachycardia. he is a resident at [facility]. he notes that the staff noted that his HR was in the 40's and he just felt off. At that time he did not have any chest pain, although today he does have some right shoulder pain. Last night he did have ST with HR of 137 with frequent PVCs. Metoprolol increased to 25 mg BID. He was also given Mg. Electrolytes were normal [facility] Medical History (Updated 09/14/21 @ 10:54 by Rupali TAYLOR PA) Asthma Atherosclerosis of coronary artery of quina[place] heart without angina pectoris Chest pain COPD (chronic obstructive pulmonary disease) COPD exacerbation Diabetes Former smoker Hepatitis Hypertension Hypothyroidism Irregular heart beat Kidney stones NSVT (nonsustained ventricular tachycardia) Home Medications furosemide 40 mg PO BID@1000,1800 tab 04/23/19 [Rx Last Taken 09/12/21] potassium chloride 20 meq PO DAILYCM tab 04/23/19 [Rx Last Taken 09/13/21] metformin 1,000 mg PO BID 01/18/21 [History Last Taken 09/13/21] metoprolol tartrate 25 mg PO BID 01/18/21 [History Last Taken 09/13/21] mometasone-formoterol [Dulera] 2 puff INHALATION DAILY 01/18/21 [History Last Taken 09/13/21] aspirin 81 mg tablet,delayed release 81 mg PO DAILY 02/05/21 [History Last Taken Unknown] atorvastatin 10 mg tablet 80 mg PO QHS tab 02/05/21 [History Last Taken 09/12/21] levothyroxine 200 mcg capsule 200 mcg PO DAILY 02/05/21 [History Last Taken 09/13/21] sennosides 8.6 mg-docusate sodium 50 mg tablet 2 tab-cap PO QHS 02/05/21 [History Last Taken Unknown] sotalol 120 mg tablet 120 mg PO BID 02/05/21 [History Last Taken 09/13/21] tamsulosin 0.4 mg capsule 0.4 mg PO DAILY 02/05/21 [History Last Taken 09/12/21] ticagrelor 90 mg tablet 90 mg PO BID 02/05/21 [History Last Taken 09/13/21] albuterol sulfate 2 puff INHALATION Q4H PRN 02/11/21 [History Last Taken Unknown] dulaglutide 4.5 mg/0.5 mL subcutaneous pen injector 4.5 mg SUBCUT QWEEK ml 05/22/21 [History Last Taken 09/07/21] duloxetine 60 mg capsule,delayed release 60 mg PO BID cap 05/22/21 [History Last Taken 09/13/21] lisinopril 10 mg PO DAILY 09/13/21 [History Last Taken 09/13/21] Allergy/AdvReac Type Severity Reaction Status Date / Time No Known Allergies Allergy Verified 09/13/21 11:33 Surgical History (Updated 09/14/21 @ 10:54 by Rupali TAYLOR, PA) History of coronary artery stent placement (01/18/21) History of thyroidectomy Social History Smoking Status: Former smoker how long ago did patient quit smokin years ago alcohol intake: never substance use type: does not use caffeine: Yes Type: carbonated beverages ROS Constitutional Constitutional: Reports fatigue and malaise; Denies chills or frequent falls Eyes Eyes: Reports acute decrease in peripheral vision; Denies change in vision, double vision or loss of vision ENT HEENT: Reports dizziness; Denies bleeding gums Cardiovascular Cardiovascular: Reports as per HPI Respiratory/Chest Respiratory/Chest: Denies cough, shortness of breath at rest or shortness of breath with exertion Gastrointestinal Gastrointestinal: Reports other Details: Some lLUQ pain that is not new ; Denies bloating or heartburn Musculoskeletal Musculoskeletal: Reports arthralgias Physical Exam Const alert, oriented x3 and no apparent distress Nutritional Appearance: obese HEENT normocephalic, head/scalp atraumatic, hearing grossly normal bilaterally, external nose normal and moist oral mucous membranes Eyes PERRL, EOMs intact bilaterally, conjunctivae normal and no scleral icterus Neck full ROM, supple and no JVD Resp normal respiratory effort Auscultation: crackles bilateral base Cardio regular rate, regular rhythm, S1 normal heart sound, S2 normal heart sound, no murmurs, no rub, no gallops and no clicks GI normal to inspection, nondistended, normoactive bowel sounds, soft to palpation, non-tender and non-distended Extremity no clubbing, cyanosis or edema Extremity Narrative: chronic venous status Neuro oriented x3, CN's II-XII intact bilaterally, moves all extremities, no focal motor deficits and no sensory deficits noted Risk Stratification Risk Stratification Applicable: No Charges/Coding Visit Charges Office Visits / Consults: 92453 IP Consult L3 Objective Data Vital Signs: Vital Signs Temp Pulse Resp BP Pulse Ox 98 F 81 18 108/66 96 09/14/21 05:39 09/14/21 07:00 09/14/21 06:59 09/14/21 05:39 09/14/21 06:59 Oxygen Flow Rate (L/min) 2 Oxygen Delivery Method Room Air Weight: 310 lb 13.628 oz Body Mass Index (BMI) 41.0 Intake & Output: Intake and Output for Last 24 Hours 09/12/21 09/13/21 09/14/21 23:59 23:59 23:59 Intake Total 600 / 600 344 / 344 Balance 600 / 600 344 / 344 Lab / Micro Data Result Diagrams: 09/14/21 05:30 09/14/21 05:30 Labs: Laboratory Results - last 24 hr 09/13/21 12:10: WBC 13.0 H, RBC 4.49 L, Hgb 13.8, Hct 41.3, MCV 92.0, MCH 30.7, MCHC 33.4, RDW Std Deviation 46.7 H, RDW Coeff of Jovany 13.9, Plt Count 209, MPV 10.0, Immature Gran % (Auto) 0.500, Neut % (Auto) 75.1 H, Lymph % (Auto) 15.4 L, [place] % (Auto) 5.4, Eos % (Auto) 3.2, Baso % (Auto) 0.4, Absolute Neuts (auto) 9.8 H, Absolute Lymphs (auto) 2.01, Nucleated RBC % 0 09/13/21 12:10: Sodium 136, Potassium 3.8, Chloride 98, Carbon Dioxide 30.0, Anion Gap 8, BUN 10, Creatinine 0.81, Estim Creat Clear Calc 115.08, Est GFR (MDRD) Af Amer 127, Est GFR (MDRD) Non-Af 105, BUN/Creatinine Ratio 12.4, Glucose 213 H, Calcium 9.1, Troponin I High Sens 3 09/13/21 12:10: Phosphorus 3.2, Magnesium 1.8 09/13/21 18:18: POC Glucose 111 H 09/13/21 18:50: Troponin I High Sens < 3 L 09/13/21 21:36: POC Glucose 197 H 09/14/21 05:30: WBC 13.9 H, RBC 4.30 L, Hgb 13.3, Hct 39.5 L, MCV 91.9, MCH 30.9, MCHC 33.7, RDW Std Deviation 47.1 H, RDW Coeff of Jovany 14.0, Plt Count 204, MPV 9.7, Immature Gran % (Auto) 0.500, Neut % (Auto) 69.2, Lymph % (Auto) 19.7, [place] % (Auto) 4.9, Eos % (Auto) 5.3 H, Baso % (Auto) 0.4, Absolute Neuts (auto) 9.7 H, Absolute Lymphs (auto) 2.74, Nucleated RBC % 0 09/14/21 05:30: Sodium 134 L, Potassium 3.9, Chloride 100, Carbon Dioxide 28.0, Anion Gap 6, BUN 12, Creatinine 0.63 L, Estim Creat Clear Calc 147.96, Est GFR (MDRD) Af Amer 169, Est GFR (MDRD) Non-Af 140, BUN/Creatinine Ratio 19.0, Glucose 152 H, Calcium 8.5 09/14/21 06:32: POC Glucose 157 H Rhythm Strip Rhythm Strip: Sinus Tach Rate: 102 Ectopy: PVC(s) Cardiology Labs/Tests 09/13/21 12:10: WBC 13.0 H, RBC 4.49 L, Hgb 13.8, Hct 41.3, MCV 92.0, MCH 30.7, MCHC 33.4, Plt Count 209, MPV 10.0, Immature Gran % (Auto) 0.500, Neut % (Auto) 75.1 H, Lymph % (Auto) 15.4 L, [place] % (Auto) 5.4, Eos % (Auto) 3.2, Baso % (Auto) 0.4, Absolute Neuts (auto) 9.8 H, Nucleated RBC % 0 09/13/21 12:10: Sodium 136, Potassium 3.8, Chloride 98, Carbon Dioxide 30.0, Anion Gap 8, BUN 10, Creatinine 0.81, Est GFR (MDRD) Af Amer 127, Est GFR (MDRD) Non-Af 105, BUN/Creatinine Ratio 12.4, Glucose 213 H, Calcium 9.1 09/13/21 12:10: Phosphorus 3.2, Magnesium 1.8 09/14/21 05:30: WBC 13.9 H, RBC 4.30 L, Hgb 13.3, Hct 39.5 L, MCV 91.9, MCH 30.9, MCHC 33.7, Plt Count 204, MPV 9.7, Immature Gran % (Auto) 0.500, Neut % (A uto) 69.2, Lymph % (Auto) 19.7, [place] % (Auto) 4.9, Eos % (Auto) 5.3 H, Baso % (Auto) 0.4, Absolute Neuts (auto) 9.7 H, Nucleated RBC % 0 09/14/21 05:30: Sodium 134 L, Potassium 3.9, Chloride 100, Carbon Dioxide 28.0, Anion Gap 6, BUN 12, Creatinine 0.63 L, Est GFR (MDRD) Af Amer 169, Est GFR (MDRD) Non-Af 140, BUN/Creatinine Ratio 19.0, Glucose 152 H, Calcium 8.5 Rhythm: SR with PVCs, episdoes of NSVT ECHO from 01/18/2021: Based upon the 2D echocardiographic and contrast enhanced images obtained appears to be grossly normal left ventricular size, wall motion, and systolic function. The estimated ejection fraction is 60 %. The left atrium is mildly enlarged. Trivial mitral valve insufficiency. Trivial tricuspid valve insufficiency. Mild focal aortic valve calcification. Unable to estimate RV systolic pressure/pulmonary artery pressure due to technically difficult study. Diastolic function is indeterminate. Radiography Diagnostic Testing: Radiology Impression Chest X-Ray 09/13/21 12:30 IMPRESSION: Elevation of the left hemidiaphragm with increased markings at the left lung base suggestive of a basilar atelectasis superimposed on scarring. This has progressed as compared to prior study. Electronically Signed: Hernando Cook MD at 12:55 EDT , Documented by User: Dr. Cliff Roman MD 09/14/21 16:13 Assessment & Plan Assessment/Plan (1) Atherosclerosis of coronary artery of qu[place] heart without angina pectoris: QUALIFIERS: Coronary Disease-Associated Artery/Lesion type: [place] artery Qualified Code(s): I25.10 - Atherosclerotic heart disease of [place] coronary artery without angina pectoris (2) History of coronary artery stent placement: (3) NSVT (nonsustained ventricular tachycardia): PLAN: I independently evaluated this patient, examined, reviewed the current data including the lab tests, cardiac telemetry, EKG's current medication Patient had history of CAD with a PCI and stent of the mid LAD and had episodes of nonsustained ventricular tachycardia seen and evaluated by the hand paint mixer and started on sotalol He does not have any active chest pain and cardiac work-up with a series of high sensitive troponins were negative I formulated cardiac care plan and agree with the current cardiac care plan as documented by the midlevel Patient will follow up with his primary gauge checker at [facility]. With the plan of event monitor, echocardiogram and myocardial perfusion study which can be set up as an outpatient. HPI Consult Data Date of Consult: 09/14/21 [facility] Medical History (Updated 09/14/21 @ 10:54 by Rupali Wheatley PA, PA) Asthma Atherosclerosis of coronary artery of qu[place] heart without angina pectoris Chest pain COPD (chronic obstructive pulmonary disease) COPD exacerbation Diabetes Former smoker Hepatitis Hypertension Hypothyroidism Irregular heart beat Kidney stones NSVT (nonsustained ventricular tachycardia) Home Medications furosemide 40 mg PO BID@1000,1800 tab 04/23/19 [Rx Last Taken 09/12/21] potassium chloride 20 meq PO DAILYCM tab 04/23/19 [Rx Last Taken 09/13/21] metformin 1,000 mg PO BID 01/18/21 [History Last Taken 09/13/21] metoprolol tartrate 25 mg PO BID 01/18/21 [History Last Taken 09/13/21] mometasone-formoterol [Dulera] 2 puff INHALATION DAILY 01/18/21 [History Last Taken 09/13/21] aspirin 81 mg tablet,delayed release 81 mg PO DAILY 02/05/21 [History Last Taken Unknown] atorvastatin 10 mg tablet 80 mg PO QHS tab 02/05/21 [History Last Taken 09/12/21] levothyroxine 200 mcg capsule 200 mcg PO DAILY 02/05/21 [History Last Taken 09/13/21] sennosides 8.6 mg-docusate sodium 50 mg tablet 2 tab-cap PO QHS 02/05/21 [Histor y Last Taken Unknown] sotalol 120 mg tablet 120 mg PO BID 02/05/21 [History Last Taken 09/13/21] tamsulosin 0.4 mg capsule 0.4 mg PO DAILY 02/05/21 [History Last Taken 09/12/21] ticagrelor 90 mg tablet 90 mg PO BID 02/05/21 [History Last Taken 09/13/21] albuterol sulfate 2 puff INHALATION Q4H PRN 02/11/21 [History Last Taken Unknown] dulaglutide 4.5 mg/0.5 mL subcutaneous pen injector 4.5 mg SUBCUT QWEEK ml 05/22/21 [History Last Taken 09/07/21] duloxetine 60 mg capsule,delayed release 60 mg PO BID cap 05/22/21 [History Last Taken 09/13/21] lisinopril 10 mg PO DAILY 09/13/21 [History Last Taken 09/13/21] Allergy/AdvReac Type Severity Reaction Status Date / Time No Known Allergies Allergy Verified 09/13/21 11:33 Surgical History (Updated 09/14/21 @ 10:54 by Rupali Wheatley PA, PA) History of coronary artery stent placement (01/18/21) History of thyroidectomy Social History Smoking Status: Former smoker how long ago did patient quit smokin years ago alcohol intake: never substance use type: does not use caffeine: Yes Type: carbonated beverages Lab / Micro Data Result Diagrams: 09/14/21 05:30 09/14/21 05:30
[2021-09-14] MEDS: DULoxetine Hcl 60 MG Capsule PO ×2 (10:52→20:52)
[2021-09-14] MEDS: Potassium Chloride Oral Tablet 20 MEQ 40 MEQ PO (10:52)
[2021-09-14] MEDS: Tamsulosin HCl 0.4 MG Capsule PO (10:52)
[2021-09-14] MEDS: Aspirin E.C. 81 MG Tablet PO (10:52)
[2021-09-14] MEDS: TICAGRELOR 90 MG TABLET PO ×2 (10:52→20:52)
[2021-09-14] MEDS: Furosemide 40 MG Tablet PO ×2 (10:52→17:49)
[2021-09-14] MEDS: Lisinopril 10 MG Tablet PO (10:53)
[2021-09-14] MEDS: Enoxaparin 40 MG/0.4 ML Syringe SC (10:53)
[2021-09-14] MEDS: Metoprolol Tartrate 25 MG Tablet PO (11:02)
[2021-09-14 11:21] LABS: Bedside Glucose 222 mg/dL (74-106)
--- NOTE | 2021-09-14 11:31 | CASEMGMT ---
Addendum entered by Parisa Abel 09/14/21 12:15: Social Work Return call from Yuki at [facility]. Yuki states pt lives in an independent living apartment at [facility]. The staff is not involved with pt, he must be completely independent. Pt is active with [facility]. Pt can return to his home at time of discharge. Plan: Return home with resumption of [facility] ROSALIO Edgar Original Note: Social Work Pt is currently living at [facility]. NORMA placed call to Aundrea at [facility] who states pt is a resident of the Assisted Living. In the [place], there is no nursing supervision. If pt would need nursing supervision, they do have a bed available in the SNF. NORMA met with pt and introduced self and role of SW. Pt would prefer to return to Assisted Living and does not feel this will be a problem. Pt will need transportation back to [place]. Updated clinicals faxed to [facility]. Cardiology reports pt can follow up as an outpt. Plan is to return to [place]. Plan: [facility], Assisted Living ROSALIO Edgar
--- NOTE | 2021-09-14 14:18 | PN.HOSP_ITS ---
Subjective Subjective Patient seen and examined. He felt well and had no active complaints today. He had an uneventful night and review of systems otherwise negative. He was noted to have some PVCs overnight. He was therefore given a dose of metoprolol. Cardiology consulted. Objective Data Objective Data Vital Signs: Vital Signs Temp Pulse Resp BP Pulse Ox 97.8 F 90 18 114/78 96 09/14/21 10:50 09/14/21 12:56 09/14/21 12:56 09/14/21 11:02 09/14/21 12:56 Oxygen Flow Rate (L/min) 2 Oxygen Delivery Method Room Air Weight: 310 lb 13.628 oz Body Mass Index (BMI) 41.0 Intake & Output: Intake and Output for Last 24 Hours 09/12/21 09/13/21 09/14/21 23:59 23:59 23:59 Intake Total 600 / 600 824 / 824 Balance 600 / 600 824 / 824 Lab / Micro Data Result Diagrams: 09/14/21 05:30 09/14/21 05:30 Labs: Laboratory Results - last 24 hr 09/13/21 12:10: Phosphorus 3.2, Magnesium 1.8 09/13/21 18:18: POC Glucose 111 H 09/13/21 18:50: Troponin I High Sens < 3 L 09/13/21 21:36: POC Glucose 197 H 09/14/21 05:30: WBC 13.9 H, RBC 4.30 L, Hgb 13.3, Hct 39.5 L, MCV 91.9, MCH 30.9, MCHC 33.7, RDW Std Deviation 47.1 H, RDW Coeff of Jovany 14.0, Plt Count 204, MPV 9.7, Immature Gran % (Auto) 0.500, Neut % (Auto) 69.2, Lymph % (Auto) 19.7, [place] % (Auto) 4.9, Eos % (Auto) 5.3 H, Baso % (Auto) 0.4, Absolute Neuts (auto) 9.7 H, Absolute Lymphs (auto) 2.74, Nucleated RBC % 0 09/14/21 05:30: Sodium 134 L, Potassium 3.9, Chloride 100, Carbon Dioxide 28.0, Anion Gap 6, BUN 12, Creatinine 0.63 L, Estim Creat Clear Calc 147.96, Est GFR (MDRD) Af Amer 169, Est GFR (MDRD) Non-Af 140, BUN/Creatinine Ratio 19.0, Glucose 152 H, Calcium 8.5 09/14/21 06:32: POC Glucose 157 H 09/14/21 11:07: POC Glucose 222 H Rhythm Strip Rhythm Strip: Sinus Tach Rate: 102 Ectopy: PVC(s) Physical Exam Const alert, oriented x3 and no apparent distress General Appearance: cooperative Exam Limitations: no limitations HEENT normocephalic, head/scalp atraumatic, hearing grossly normal bilaterally and moist oral mucous membranes Head and Scalp: normocephalic Eyes PERRL, EOMs intact bilaterally and conjunctivae normal Neck no lymphadenopathy, supple and no JVD Resp normal respiratory effort, no retractions, no use of accessory muscles and clear to auscultation bilaterally Cardio regular rate, regular rhythm, S1 normal heart sound, S2 normal heart sound and no murmurs GI normal to inspection, nondistended, normoactive bowel sounds, soft to palpation and non-tender Extremity normal to inspection, full ROM and no clubbing, cyanosis or edema Peripheral Pulses: Yes pulses 2+ throughout Skin no rashes or lesions noted Neuro oriented x3 and CN's II-XII intact bilaterally Sensorium / Orientation: awake and alert Psych affect normal Assessment & Plan Assessment/Plan (1) Dizziness: (2) Bradycardia: PLAN: #Near syncope * had numerous PVCs overnight. * potassium WNL. magnesium was also WNL * metoprlol discontinued. Sotalol resumed per cardiology * per cardiology, to have stress test and echo on outpatient basis. * does have a history of nonsustained Vtach. * if he doesnt have any more sVTs overnight, to be discharged home on a 30 day event monitor * #History of CAD s/p stent * On aspirin and Brilinta as well as metoprolol and high intensity statin. Metoprolol discontinued * #History of nonsustained vtach * Electrolytes are within normal limits. * On sotalol * #Type 2 diabetes mellitus: Hold Metformin. On dulaglutide weekly. Insulin sliding scale. Checks ACH S. #Hypertension: On lisinopril and metoprolol #Hypothyroidism: On Synthroid #Hyperlipidemia: On statin * #HFpEF: has known EF of 60%. NOt in exacerbation. on lasix 40mg bid * DVT prophylaxis: lovenox CODE STATUS: Full code * Disposition: For likely discharge tomorrow Charges/Coding Visit Charges Inpatient E&M: 25627 Subs Hosp L2
--- NOTE | 2021-09-14 15:02 | CASEMGMT ---
Patient will need transportation home. SW put a transport form and green sheet on patient's chart. Plan: d/c home which is independent living at [facility]. Elisabeth KING
--- NOTE | 2021-09-14 15:10 | CASEMGMT ---
CHIRAG NAVAS assessment: Face to Face with patient for initial transition planning/care coordination assessment. CHIRAG NAVAS introduced self and role at [facility], pt voices understanding and consents to assessment. Pt is sitting up in chair in no distress on room air. Pt is A/Ox4 and answers most questions appropriately. Care providers, pharmacy, and demographics verified. Presentation: Pt c/o lightheaded/weakness-pt had runs of vtach on EMS 12 lead Admitting dx: Intermittent Vtach, weakness, falls PCP: Tonio Specialists: Gladys, cardio Preferred Pharmacy: [facility] gets pt's meds-he was in there [place] but is now independent living-pt states 'I am the only one left.' Insurance: [employer] A/B, [facility] Prescription Benefit: [employer]ACI Living Will/HPOA: Pt does not have LW/HPOA and declines AD info. LNOK: Nikunj Naranjo, daughter Living Arrangements: Pt lives alone in independent living at [facility] and states no concerns at home. Pt states is independent with ADL's. Transportation: Pt states can drive self, if needed and declines transportation concerns. DME/HHC: Pt states has grab bars and shower chair. Pt declines need for any further DME. Pt states have been to [facility] in past. Pt is active with [facility]. Pt states no concerns with going home at time of discharge. Pt is on disability. Pt states does not smoke cigarettes or drink ETOH but did in the past. Pt voices no further concerns/needs. CM to follow for any further discharge planning/needs. Advised pt to ask for CM if any further questions/concerns/needs arise, voices understanding. Pt Goal: Home Plan[place] CHIRAG NAVAS
[2021-09-14] MEDS: Sotalol Hydrochloride 80 MG Tablet 120 MG PO ×2 (16:06→20:53)
[2021-09-14 16:26] LABS: Bedside Glucose 241 mg/dL (74-106)
[2021-09-14] MEDS: Atorvastatin Calcium 80 MG Tablet PO (20:52)
[2021-09-14] MEDS: Senna/Docusate Sodium 1 Tablet 2 TABLET PO (20:53)
[2021-09-14 21:11] LABS: Bedside Glucose 248 mg/dL (74-106)
[2021-09-15 03:00] VITALS: PULSE 80
[2021-09-15 03:25] VITALS: BP 117/73; PULSE 81; RESP 16; TEMP 35.6; O2SAT 99
[2021-09-15 05:14] LABS: Absolute Lymphocyte Count 1.87 X10^3/uL (0.83-4.51); Absolute Neutrophil Count 9.1 X10^3/uL (2.0-7.7); Basophil# 0.05 X10^3/uL; Basophil% 0.4 % (0-1); Eosinophil# 0.55 X10^3/uL; Eosinophils% 4.4 % (0-5); Hematocrit 40.6 % (40-54); Hemoglobin 13.8 g/dL (13.0-16.5); Lymphocyte # 1.87 X10^3/ul (0.83-4.51); Lymphocyte % 15.1 % (19-41); Mean Corpuscular Hgb 30.5 pg (27.0-32.0); Mean Corpuscular Volume 89.8 fL (80-94); Mean Platelet Vol. 9.8 fl (6.2-12.0); Monocyte# 0.72 X10^3/uL; Monocyte% 5.8 % (0-10); NRBC Flagged by Analyzer 0 % (0-5); Neutrophil # 9.11 X10^3/uL (2.7-7.7); Neutrophil % 73.7 % (47-70); Platelet Count 187 K/mm3 (150-450); RBC Distribution Width CV 14.1 % (11.6-14.6); RBC Distribution Width SD 45.8 fl (35.1-43.9); Red Blood Count 4.52 M/mm3 (4.6-6.2); White Blood Count 12.4 K/mm3 (4.4-11.0)
[2021-09-15] MEDS: Levothyroxine 100 MCG Tablet 200 MCG PO (05:20)
[2021-09-15 05:30] LABS: Anion Gap 4 (5-15); BUN 14 mg/dL (7-18); Calcium,Total 8.4 mg/dL (8.5-10.1); Chloride 100 mmol/L (98-107); EST Glomerular Filtration Rate 124 mL/min (>60); Est Glom Filt Rate - Afr Amer 150 mL/min (>60); Estimated Creatinine Clearance 133.17 ml/min; Glucose 221 mg/dL (74-106); Potassium 3.9 mmol/L (3.5-5.1); Sodium Level 134 mmol/L (136-145)
[2021-09-15] MEDS: Insulin Lispro 100 UNIT/ML INSULN.PEN SC ×2 (06:51→11:28)
[2021-09-15 07:00] VITALS: PULSE 85
[2021-09-15 07:01] LABS: Bedside Glucose 197 mg/dL (74-106)
[2021-09-15] MEDS: Albuterol 2.5 MG/3 ML VIAL.NEB. INHALATION (07:30)
[2021-09-15] MEDS: Budesonide Respules 0.5 MG/2 ML AMPUL.NEB. INHALATION (07:30)
[2021-09-15 07:45] VITALS: PULSE 83; RESP 21
[2021-09-15 08:18] VITALS: O2SAT 95
[2021-09-15] MEDS: Potassium Chloride Oral Tablet 20 MEQ 40 MEQ PO (08:53)
[2021-09-15] MEDS: Aspirin E.C. 81 MG Tablet PO (08:53)
[2021-09-15] MEDS: Lisinopril 10 MG Tablet PO (08:54)
[2021-09-15] MEDS: Furosemide 40 MG Tablet PO (08:54)
[2021-09-15] MEDS: Tamsulosin HCl 0.4 MG Capsule PO (08:54)
[2021-09-15] MEDS: DULoxetine Hcl 60 MG Capsule PO (08:54)
[2021-09-15] MEDS: TICAGRELOR 90 MG TABLET PO (08:54)
[2021-09-15] MEDS: Sotalol Hydrochloride 80 MG Tablet 120 MG PO (08:55)
[2021-09-15] MEDS: Enoxaparin 40 MG/0.4 ML Syringe SC (08:55)
[2021-09-15 09:00] VITALS: BP 124/77; PULSE 80; RESP 18; TEMP 36.2; O2SAT 100
--- NOTE | 2021-09-15 11:35 | PCM.DC.SUM ---
Providers Date of Admission: 09/14/21 Primary Care Physician: Dr. Nain Elizalde MD Consultations 09/13/21 17:43 Consult: Cardiology Routine Consulting Provider: Cliff Roman Reason for Consult: symptomatic bradycardia EMERGENT Consult: No MD Notified: Yes Date Notified: 09/13/21 Time Notified: 17:40 Method of Notification: Text Reason For Visit: WEAKNESS Diagnosis Discharge Diagnosis (1) Atherosclerosis of coronary artery of [place] heart without angina pectoris: Status: Acute Code(s): I25.10 - Atherosclerotic heart disease of [place] coronary artery without angina pectoris Qualifiers: Coronary Disease-Associated Artery/Lesion type: [place] artery Qualified Code(s): I25.10 - Atherosclerotic heart disease of [place] coronary artery without angina pectoris (2) History of coronary artery stent placement: Status: Chronic Code(s): Z95.5 - Presence of coronary angioplasty implant and graft (3) NSVT (nonsustained ventricular tachycardia): Status: Acute Code(s): I47.2 - Ventricular tachycardia Medications at Discharge Home Medications furosemide 40 mg PO BID@1000,1800 tab 04/23/19 potassium chloride 20 meq PO DAILYCM tab 04/23/19 Dulera 2 puff INHALATION DAILY 01/18/21 metformin 1,000 mg PO BID 01/18/21 aspirin 81 mg tablet,delayed release 81 mg PO DAILY 02/05/21 atorvastatin 10 mg tablet 80 mg PO QHS tab 02/05/21 levothyroxine 200 mcg capsule 200 mcg PO DAILY 02/05/21 sennosides 8.6 mg-docusate sodium 50 mg tablet 2 tab-cap PO QHS 02/05/21 sotalol 120 mg tablet 120 mg PO BID 02/05/21 tamsulosin 0.4 mg capsule 0.4 mg PO DAILY 02/05/21 ticagrelor 90 mg tablet 90 mg PO BID 02/05/21 albuterol sulfate 2 puff INHALATION Q4H PRN 02/11/21 dulaglutide 4.5 mg/0.5 mL subcutaneous pen injector 4.5 mg SUBCUT QWEEK ml 05/22/21 duloxetine 60 mg capsule,delayed release 60 mg PO BID cap 05/22/21 lisinopril 10 mg PO DAILY 09/13/21 Hospital Course Operations None Procedures 2-D Echocardiogram Summary of Care Provided Minutes Spent on Discharge: 40 Hospital Course: ZAK HOYT, is a 56 M who presents via the ED with a complaint of weakness. He said he felt dizzy and lightheaded, though he didnt pass out. Patient thought he may be having a slow heart rate. He tells me his heart rate went as low as the 40s. He says he has had such bradycardia in the past. EMR captured some PVCs and ?wide complex tachycardia. There was concern about whether he was having Vtach. HE denied any nausea, vomiting, fever, chills, palpitations, chest pain, diarrhea or any other symptoms. Review of systems is otherwise negative. Vitals in the ED were blood pressure 121/73, pulse rate of 85, respiratory rate of 16 and oxygen saturation of 97% on room air. CBC showed WBC of 13 and hemoglobin of 13.8 and platelets of 219. BMP was unremarkable. Chest x-ray showed elevation of the left hemidiaphragm with increased markings at the left lung base suggestive of basal atelectasis superimposed on scarring. He was admitted to be managed for weakness and bradycardia. Cardiology was consulted and his sotalol and metoprolol were initially held. He subsequently developed numerous PVCs and sotalol was restarted. He had 2D echo which showed EF of 55 to 60% with mildly enlarged left atrium and normal right atrium m and normal left ventricular systolic function. His medications were adjusted by cardiology. Patient did not have any arrhythmias anymore during admission and per cardiology, he could have outpatient stress test. His sotalol was resumed and metoprolol discontinued. His electrolytes were stable during admission. His troponins were also negative. Patient remained stable and was discharged on 09/15/2021. He is to follow-up with cardiology on outpatient basis for stress test and was also sent home with a 48-hour Holter monitor in the interim while the 30-day event monitor is also ordered to assess for arrhythmias. Patient seen and examined prior to discharge. He felt much better and had no active complaints. He had an uneventful night and review of systems otherwise negative. Labs and vitals reviewed. Home medication reviewed and reconciled. Physical Exam Const alert, oriented x3 and no apparent distress General Appearance: cooperative, comfortable and well kempt Exam Limitations: no limitations HEENT normocephalic, head/scalp atraumatic, hearing grossly normal bilaterally and moist oral mucous membranes Eyes PERRL, EOMs intact bilaterally and conjunctivae normal Neck no lymphadenopathy, supple and no JVD Resp normal respiratory effort, no retractions, no use of accessory muscles and clear to auscultation bilaterally Cardio regular rate, regular rhythm, S1 normal heart sound, S2 normal heart sound and no murmurs GI normal to inspection, nondistended, normoactive bowel sounds, soft to palpation and non-tender Extremity normal to inspection, full ROM and no clubbing, cyanosis or edema Skin no rashes or lesions noted Neuro oriented x3 and CN's II-XII intact bilaterally Sensorium / Orientation: awake and alert Psych affect normal Weight / BMI Weight Weight: 310 lb 13.628 oz Body Mass Index (BMI) 41.0 ABG / Lab / Microbiology Data Result Diagrams: 09/15/21 04:50 09/15/21 04:50 Laboratory: Laboratory Results - last 24 hr 09/14/21 16:04: POC Glucose 241 H 09/14/21 20:48: POC Glucose 248 H 09/15/21 04:50: WBC 12.4 H, RBC 4.52 L, Hgb 13.8, Hct 40.6, MCV 89.8, MCH 30.5, MCHC 34.0, RDW Std Deviation 45.8 H, RDW Coeff of Jovany 14.1, Plt Count 187, MPV 9.8, Immature Gran % (Auto) 0.600, Neut % (Auto) 73.7 H, Lymph % (Auto) 15.1 L, Beadle % (Auto) 5.8, Eos % (Auto) 4.4, Baso % (Auto) 0.4, Absolute Neuts (auto) 9.1 H, Absolute Lymphs (auto) 1.87, Nucleated RBC % 0 09/15/21 04:50: Sodium 134 L, Potassium 3.9, Chloride 100, Carbon Dioxide 30.0, Anion Gap 4 L, BUN 14, Creatinine 0.70, Estim Creat Clear Calc 133.17, Est GFR (MDRD) Af Amer 150, Est GFR (MDRD) Non-Af 124, BUN/Creatinine Ratio 20.0, Glucose 221 H, Calcium 8.4 L 09/15/21 06:50: POC Glucose 197 H Radiography Diagnostic Testing: Radiology Impression Echocardiogram 09/13/21 17:43 Interpretation Summary The estimated ejection fraction is 55-60 %. Normal LV systolic function No significant changes from prior Echo Ordering Physician: Iwona Benton Performed By: Mayuri Kelsey RDCS D/C Instructions Discharge Diet: Low fat / Low cholesterol Discharge Activity: Return to Normal Activity Weight Bearing Status: Weight bearing as tolerated Call your doctor if you observe: Fever of 101 or Higher, Shortness of breath, Dizziness, Chest pain and Increased palpitations (irregular heartbeat) Meaningful Use Info Meaningful Use Diagnoses (Choose all that apply): None applicable Discharge Plan Admission Admit Date/Time: 09/14/21 14:54 Primary Reason for Your Visit: bradycardia, arrhythmia Attending Provider: Iwona Benton Primary Care Provider: Nain Elizalde Consulting Providers: Cliff Roman Instructions Patient Instructions: Understanding Bradycardia Discharge Orders/Prescriptions Prescriptions: Continued aspirin [Adult Low Dose Aspirin] 81 mg tablet,delayed release (DR/EC) 81 mg PO DAILY RF: 0 levothyroxine 200 mcg capsule 200 mcg PO DAILY RF: 0 sennosides-docusate sodium [Senna Plus] 8.6-50 mg tablet 2 tab-cap PO QHS RF: 0 sotalol 120 mg tablet 120 mg PO BID RF: 0 tamsulosin 0.4 mg capsule 0.4 mg PO DAILY RF: 0 ticagrelor 90 mg tablet 90 mg PO BID RF: 0 dulaglutide 4.5 mg/0.5 mL pen injector 4.5 mg subcut QWEEK RF: 0 furosemide 40 MG tablet 40 mg PO BID@1000,1800 RF: 0 potassium chloride 20 MEQ tablet 20 meq PO DAILYCM RF: 0 Dulera 100-5 mcg/actuation Hfa Aerosol Inhaler 2 puff INHALATION DAILY RF: 0 metformin 1,000 mg tablet 1,000 mg PO BID RF: 0 atorvastatin 10 mg tablet 80 mg PO QHS RF: 0 duloxetine 60 mg capsule,delayed release(DR/EC) 60 mg PO BID RF: 0 albuterol sulfate 90 mcg/actuation HFA aerosol inhaler 2 puff INHALATION Q4H PRN (Reason: Shortness Of Breath Or Wheezing) RF: 0 lisinopril 10 MG tablet 10 mg PO DAILY RF: 0 Discontinued metoprolol tartrate 25 mg tablet 25 mg PO BID RF: 0 Referrals / Follow Up: Nain Elizalde MD [Primary Care Provider] - Within 2 Weeks Javon Graham MD [STAFF PHYSICIAN] - Within 2 Weeks Disposition Disposition (needs filled in before D/C Order can be placed): Home, Self Care Charges/Coding Visit Charges Inpatient E&M: 84788 Disch Hosp
[2021-09-15 11:36] LABS: Bedside Glucose 287 mg/dL (74-106)
== END 2021-09-15 13:23 | disposition home or self-care (01) | DRG 309 ==
LOC: ED 16:19 → PCU 16:58
PROVIDERS: Internal Medicine; Admitting Provider Student in an Organized Health Care Education/Training Program; Emergency Provider Emergency Medicine; Visit Provider Student in an Organized Health Care Education/Training Program
DX: R00.1 Bradycardia, unspecified (principal); I50.30 Unspecified diastolic (congestive) heart failure; I11.0 Hypertensive heart disease with heart failure; I47.2 Ventricular tachycardia; E11.9 Type 2 diabetes mellitus without complications; J44.9 Chronic obstructive pulmonary disease, unspecified; I25.10 Atherosclerotic heart disease of native coronary artery without angina pectoris; E78.5 Hyperlipidemia, unspecified; E03.9 Hypothyroidism, unspecified; Z87.891 Personal history of nicotine dependence; I49.3 Ventricular premature depolarization; Z79.02 Long term (current) use of antithrombotics/antiplatelets; Z79.84 Long term (current) use of oral hypoglycemic drugs; Z79.82 Long term (current) use of aspirin; Z79.51 Long term (current) use of inhaled steroids; Z79.899 Other long term (current) drug therapy; Z79.890 Hormone replacement therapy
CPT/HCPCS: 36415; 71045; 80048; 82962; 83735; 84100; 84484; 85025; 93005; 93225; 93226; 93306; 94640; 99285; Q9957; A4216; C8929

== ENCOUNTER 2021-09-15 13:26 | Outpatient (CLI) | payer MEDICARE, MEDICAID, SELFPAY | END 2021-09-15 23:59 | disposition home or self-care (01) | PROVIDERS: Visit Provider Student in an Organized Health Care Education/Training Program | DX: Z00.00 Encounter for general adult medical examination without abnormal findings (principal) ==

== ENCOUNTER → 2022-01-23 | Outpatient (CLI) | payer MEDICARE, MEDICAID, SELFPAY | END | disposition home or self-care (01) | PROVIDERS: PCP Family Medicine; Referring Provider Nurse Practitioner Adult Health; Visit Provider Nurse Practitioner Adult Health | DX: G47.33 Obstructive sleep apnea (adult) (pediatric) (principal) | CPT/HCPCS: 95810 ==

== ENCOUNTER → 2022-02-18 | Outpatient (CLI) | payer MEDICARE, MEDICAID, SELFPAY ==
--- NOTE | 2022-02-18 14:22 | PFTCOMP_ITS ---
COMPLETE PULMONARY FUNCTION TEST INTERPRETATION Brief HPI: Patient is a 56-year-old male, currently under the care of myself, who presents to [facility] for complete pulmonary function tests secondary to diagnosis of dyspnea. Respiratory therapist reports good effort and reproducible results. Interpretation: Forced expiration spirometry shows a severe large airways obstructive ventilatory defect with an FEV1 of 44% predicted. There is no significant bronchodilator response by strict ATS criteria. Spirograms are of good quality and plateau slowly, indicating slowly emptying areas of the lungs. The respiratory flow volume loop shows decreased expiratory flow rates at high lung volumes consistent with small airways obstruction. Lung volumes by body plethysmography show a decreased total lung capacity at 5.01 L, 70% predicted. FRC and RV are elevated out of proportion. Lung volume measurements are consistent with air-trapping. Diffusion capacity by carbon monoxide is decreased at 54% predicted. The airway resistance is normal. No previous pulmonary function tests were available for review. Impression: Irreversible severe mixed ventilatory defect with a symmetric reduction diffusion capacity
== END | disposition home or self-care (01) ==
LOC: PSN 10:31
PROVIDERS: PCP Family Medicine; Referring Provider Internal Medicine Critical Care Medicine; Visit Provider Internal Medicine Critical Care Medicine
DX: R06.02 Shortness of breath (principal)
CPT/HCPCS: 94060; 94726; 94729

== ENCOUNTER 2022-02-26 10:00 | Outpatient (RCR) | payer MEDICARE, MEDICAID, SELFPAY ==
--- NOTE | 2022-01-17 10:57 | HP.OTEVAL ---
Patient's Visit Information ZAK HOYT is a 56 year old M, referred to Occupational Therapy by Radha Barajas, DANISH-C, with a diagnosis of lack of coordination/weakness. Date of Evaluation: 01/17/22 Occupational Therapist: Rupali Slaughter, OTR/L, CHT - Subjective This 56 year old male was seen for OT eval with dx lack of coordination and weakness- pt states about 8 weeks ago he had a fall on the sidewalk outside his apt. pt states he did get skinned up. pt states he does not exercise but will walk about a city block or even up to 3 blocks. pt states he gets winded or SOB with ambulation- pt states his cutter first follows him. - ADLs Comments: pt states he was living at [facility] (lived there late 2018 until October 2021) but due to changes in insurance he was transferred to [facility]. pt states this is an assisted living facility- the staff helps pt by making sure he takes his medication-. pt states he has a tub shower combination- has grab bars states he can perform his bathing at DWIGHT level-. pt reports he is DWIGHT with dressing. using a sock aide. Pt states he does not have any other adaptive eq. at this time- denies need. pt states he sleep in recliner lift chair. Meals are provided. Cleaning is provided 1x a week. [place] is provided. Takes public transportation - ROM ROM Comments: pt demo ROM WFL in bilateral UE- - Strength Shoulder: peak force right 32 left 31 Elbow: peak force right 20 left 19 Enterprise Application Administrator: right 100# left 85# Lateral Pinch: right 16# left 12# Tripod Pinch: right 16# left 14# Strength Comments: pt states left hand strength has not been same since a spider bite in the 90's - Sensation Sensation Comments: denies - Quick DASH-Disab of Arm,Shoulder& Hand Quick DASH Score: 4.5450 - Rehabilitation General Assessment: pt demo functional ROM of UB and strength pt ambulated 300 feet IND with a steady gait- pt denies needs for adaptive equipment at his apt. Staff assist with his meals, cleaning and laundry-pt does not demo need for skilled OT services will defer care to PT to address pts concerns of ambulation and leg weakness. pt agrees to POC. - Anticipated Interventions Other Other Interventions: At this time pt demo UE ROM and strength WFL-. Pts concerns with ambulation and will be evaluated by physical therapy - Visit Plan General Plan: Pt will be seen by Physical therapy for his concerns with leg weakness TEXT: Thank you for the opportunity to evaluate your patient. For Medicare and Medicare HMO plans, please review the plan of care and approve it. It will need to be FAXED BACK to us at [phone] for Medicare purposes. Please let me know if there are questions or concerns regarding this plan of care. Physician Signature: Date:
--- NOTE | 2022-01-17 13:26 | HP.PTEVAL_ITS ---
Patient's Visit Information ZAK HOYT is a 56 year old M referred to Physical Therapy by CHRISTIANO TamezC with a diagnosis of UNSTEADY GAIT. Date of Evaluation: 01/17/22 Physical Therapist: Jeferson Amin, PT, Cert MDT, OCS - Visit Plan Frequency: 2x /Week Duration: 4 Weeks Plan: PT INTERVETIONS ENDURANCE PROGRAM , STRENGTHENING BLE ,BALANCE PROGRAM AND FUNCTIONAL STRENGTHNEING - Subjective This 56 y/o male presents to physical therapy with unsteady gait. Patient has had problems with weakness and SOB affects ADL's. Patient has been in Assisted living at [facility] then transferred to [facility]. Patient has h ad fall 2 weeks on uneven cement on side walk -mechanical fall . Patient main issue is weakness and tiredness with gait ~ 3 blocks . Patient has occasional paresthesia/tingling leg. Patient able to bath and dress self. Meals are provided. Patient has tub/shower set-up. Patient has difficulty sleeping. Patient has occasional pain feet and knees left > right. Patient condition affects QOL and function. SOCIAL: . VOCATION: disability - Objective POSTURE: mild forward posture. EDEMA: 2+ lower legs. GAIT: reciprocal pattern slow kwesi mild antalgic gait no LOB. SKIN: dry, scaly. BALANCE: good-. AROM KNEE FLEXION: 0-125. MMT: (PEAK FORCE) quads 26.7,hams 27.8 ,hip flexion 28 .7 - Balance/Special Test Scores Functional Gait Assessment Score: 22 % Disability: 26.6700 CATSIB Score (Max score 120 seconds): 110 Lower Extremity Functional Score: 23 30 Second Chair Rise Test Seconds: 12 - Goals Goal 1:: Patient to be I with HEP Goal Time Frame: 4-6 Weeks Goal 2:: Patient to demonstrate 50% improvement to improve function with ADLS Goal Time Frame: 4-6 Weeks Goal 3:: Patient improve 30sec sit-stand by 4-5x to improve endurance Goal Time Frame: 4-6 Weeks Goal 4:: Patient to improve LFES by 5-10 to improve function and gait. Goal Time Frame: 4-6 Weeks Goal 5:: Patient to improve peak force quads/hams by 5-10 to improve function and gait Goal Time Frame: 4-6 Weeks - Rehabilitation Potential Physical Therapy Diagnosis: This patient has generalized weakness and decrease endurance for function impairs and ADL's thus benefit from skilled PT Rehabilitation Potential: Good - Anticipated Interventions Patient/Client Instruction: Educate patient on: Condition, Plan of Care For the Purpose of:: To decrease pain, To improve nutrient delivery to tissue, To improve muscle performance and motor function, To improve ability to perform ADL's, To increase tolerance to activity/condition/position, To improve ability of physical actions for home/community/work/leisure, To improve gait and locomotor functions, To increase flexibility/ROM, To improve endurance, To improve balance, To assume or resume ADL's, To improve tolerance to ADL's Therapeutic Exercise to Include: Strength training, Endurance training, Balance training, Flexibilty training, Gait and locomotor training, Active ROM For the Purpose of:: To improve muscle performance and motor function, To improve ability to perform ADL's, To increase tolerance to activity/condition/position, To improve ability of physical actions for home/community/work/leisure, To increase flexibility/ROM, To improve endurance, To improve balance, To improve health and function, To improve tolerance to ADL's Thank you for the opportunity to evaluate your patient. For Medicare and Medicare HMO plans, please review the plan of care and approve it. It will need to be FAXED BACK to us at [phone] for Medicare purposes. For Medicare only, by signing this I certify the plan of care. Please let me know if there are questions or concerns regarding this plan of care. Physician Signature: Date:
--- NOTE | 2022-01-21 19:11 | HP.PTEVAL_ITS ---
Patient's Visit Information ZAK HOYT is a 56 year old M referred to Physical Therapy by Radha Barajas NP-C with a diagnosis of MUSCLE WEAKNESS,REPEATED FALLS,. Date of Evaluation: 01/17/22 Physical Therapist: Jeferson Amin, PT, Cert MDT, OCS - Visit Plan Frequency: 2x /Week Duration: 4 Weeks Plan: PT INTERVETIONS ENDURANCE PROGRAM , STRENGTHENING BLE ,BALANCE PROGRAM AND FUNCTIONAL STRENGTHNEING - Subjective This 56 y/o male presents to physical therapy with unsteady gait. Patient has had problems with weakness and SOB affects ADL's. Patient has been in Assisted living at [facility] then transferred to [facility]. Patient has had fall 2 weeks on uneven cement on side walk -mechanical fall . Patient main issue is weakness and tiredness with gait ~ 3 blocks . Patient has occasional paresthesia/tingling leg. Patient able to bath and dress self. Meals are provided. Patient has tub/shower set-up. Patient has difficulty sleeping. Patient has occasional pain feet and knees left > right. Patient condition affe cts QOL and function. SOCIAL: . VOCATION: disability - Objective POSTURE: mild forward posture. EDEMA: 2+ lower legs. GAIT: reciprocal pattern slow kwesi mild antalgic gait no LOB. SKIN: dry, scaly. BALANCE: good-. AROM KNEE FLEXION: 0-125. MMT: (PEAK FORCE) quads 26.7,hams 27.8 ,hip flexion 28 .7 - Balance/Special Test Scores Functional Gait Assessment Score: 22 % Disability: 26.6700 CATSIB Score (Max score 120 seconds): 110 Lower Extremity Functional Score: 23 30 Second Chair Rise Test Seconds: 12 - Goals Goal 1:: Patient to be I with HEP Goal Time Frame: 4-6 Weeks Goal 2:: Patient to demonstrate 50% improvement to improve function with ADLS Goal Time Frame: 4-6 Weeks Goal 3:: Patient improve 30sec sit-stand by 4-5x to improve endurance Goal Time Frame: 4-6 Weeks Goal 4:: Patient to improve LFES by 5-10 to improve function and gait. Goal Time Frame: 4-6 Weeks Goal 5:: Patient to improve peak force quads/hams by 5-10 to improve function and gait Goal Time Frame: 4-6 Weeks - Rehabilitation Potential Physical Therapy Diagnosis: This patient has generalized weakness and decrease endurance for function impairs and ADL's thus benefit from skilled PT Rehabilitation Potential: Good - Anticipated Interventions Patient/Client Instruction: Educate patient on: Condition, Plan of Care For the Purpose of:: To decrease pain, To improve nutrient delivery to tissue, To improve muscle performance and motor function, To improve ability to perform ADL's, To increase tolerance to activity/condition/position, To improve ability of physical actions for home/community/work/leisure, To improve gait and locomotor functions, To increase flexibility/ROM, To improve endurance, To improve balance, To assume or resume ADL's, To improve tolerance to ADL's Therapeutic Exercise to Include: Strength training, Endurance training, Balance training, Flexibilty training, Gait and locomotor training, Active ROM For the Purpose of:: To improve muscle performance and motor function, To improve ability to perform ADL's, To increase tolerance to activity/condition/position, To improve ability of physical actions for home/community/work/leisure, To increase flexibility/ROM, To improve endurance, To improve balance, To improve health and function, To improve tolerance to ADL's Thank you for the opportunity to evaluate your patient. For Medicare and Medicare HMO plans, please review the plan of care and approve it. It will need to be FAXED BACK to us at [phone] for Medicare purposes. For Medicare only, by signing this I certify the plan of care. Please let me know if there are questions or concerns regarding this plan of care. Physician Signature: Date:
--- NOTE | 2022-02-26 10:36 | HP.PTDCSUM ---
It has been my pleasure to treat ZAK HOYT referred by Radha Barajas NP-C, with the diagnosis of MUSCLE WEAKNESS,REPEATED FALLS, for a total of 9 visit(s). Discharge Date: Please see the following information for a summary of their discharge status. Subjective: Doing better overall. Like to improve endurance . Patient has to do 6 min walk test.. cardiopulmonary % Improvement: 70 Objective/Function: POSTURE: mild forward posture. GAIT: reciprocal pattern. MMT: quads/hams/hips by increase 10 peak forse Goal 1:: Patient to be I with HEP Goal Progress: Goal Met Goal 2:: Patient to demonstrate 50% improvement to improve function with ADLS Goal Progress: Goal Met Goal 3:: Patient improve 30sec sit-stand by 4-5x to improve endurance Goal Progress: Progressing Goal 4:: Patient to improve LFES by 5-10 to improve function and gait. Goal Progress: Progressing Goal 5:: Patient to improve peak force quads/hams by 5-10 to improve function and gait Goal Progress: Goal Met Plan: D/C If there are questions or concerns regarding this patient's physical therapy, please feel free to call me at [phone]. Thank you for the referral of this patient. Sincerely, Jeferson Amin, PT, Cert MDT, OCS Balance/Gait/Functional tests - Balance/Special Test Scores Functional Gait Assessment Score: 24 % Disability: 20.0000 CATSIB Score (Max score 120 seconds): 115 Lower Extremity Functional Score: 51 30 Second Chair Rise Test Seconds: 10 6 Minute Walk Test: 1088 feet
== END 2022-02-26 19:00 | disposition home or self-care (01) ==
LOC: PT 10:00
PROVIDERS: PCP Family Medicine; Referring Provider Nurse Practitioner Adult Health; Visit Provider Nurse Practitioner Adult Health
DX: M62.81 Muscle weakness (generalized) (principal); R29.6 Repeated falls
CPT/HCPCS: 97110; 97162; 97166; 97530

== ENCOUNTER → 2022-02-26 | Outpatient (CLI) | payer MEDICARE, MEDICAID, SELFPAY ==
[2022-02-26 13:43] VITALS: PULSE 103; PULSE 106; PULSE 107; PULSE 108; PULSE 87; PULSE 88; O2SAT 92; O2SAT 93; O2SAT 94; O2SAT 96; O2SAT 97; O2SAT 98
--- NOTE | 2022-02-27 10:09 | PCM.PSN.6M ---
PSN 6 Minute Walk Test 6 Minute Walk Test 6 Minute Walk Test: 6 Minute Walk Test PSN:6-Minute Walk Test Start: 02/26/22 13:42 Freq: Status: Active Protocol: [id number].6MINW Document 02/26/22 13:43 [email or web address] (Rec: 02/26/22 13:45 BRYANT [id number]) 6 Minute Walk Test Date Performed 02/26/22 Time Performed 13:30 Height 6 ft 1 in Weight: 321 lb Weight in Pounds 321.[address]: Enrico Bustillo Assistive device used: None Pre-test Oxygen Delivery Method Room Air Pulse Ox (%) 96 Pulse Rate (60-100 beats/min) 88 Dyspnea Fabian Scale (0-10) 0.5 Exertion Fabian Scale (6-20) 6 1st minute Oxygen Delivery Method Room Air Pulse Ox (%) 97 Pulse Rate (60-100 beats/min) 103 H 2nd minute Oxygen Delivery Method Room Air Pulse Ox (%) 94 Pulse Rate (60-100 beats/min) 107 H 3rd minute Oxygen Delivery Method Room Air Pulse Ox (%) 94 Pulse Rate (60-100 beats/min) 106 H 4th minute Oxygen Delivery Method Room Air Pulse Ox (%) 92 Pulse Rate (60-100 beats/min) 107 H 5th minute Oxygen Delivery Method Room Air Pulse Ox (%) 93 Pulse Rate (60-100 beats/min) 107 H 6th minute Oxygen Delivery Method Room Air Pulse Ox (%) 92 Pulse Rate (60-100 beats/min) 108 H Dyspnea Fabian Scale (0-10) 3 Exertion Fabian Scale (6-20) 13 Post-test Oxygen Delivery Method Room Air Pulse Ox (%) 98 Pulse Rate (60-100 beats/min) 87 Full Laps Walked 18 Partial Lap, Number of Tiles Walked 22 Total Distance Walked (ft) 1084 Interpretation Interpretation: The patient ambulated 1084 feet over the course of 6 minutes beginning on room air without assistive devices. Pretesting oxygen saturation was noted to be 96% on room air. With ambulation, the birgit oxygen saturation was 92%. This represents a significant exertional oxygen desaturation. Recommendations Recommendations: There is no indication for the use of supplemental oxygen at this time.
== END | disposition home or self-care (01) ==
LOC: PSN 13:11
PROVIDERS: PCP Family Medicine; Referring Provider Internal Medicine Critical Care Medicine; Visit Provider Internal Medicine Critical Care Medicine
DX: R06.02 Shortness of breath (principal)
CPT/HCPCS: 94618

== ENCOUNTER 2022-03-21 07:31 | Day surgery (SDC) | payer MEDICARE, MEDICAID, SELFPAY ==
[2022-03-21] VITALS (8 sets, daily range): BP systolic 86–129; BP diastolic 58–81; PULSE 73–79; RESP 16–18; TEMP 36.4–36.7; O2SAT 92–98; BMI 41.8
[2022-03-21] MEDS: Lactated Ringers 1,000 ML 15 ML IV (07:45)
[2022-03-21] MEDS: Ipratropium/Albuterol Sulfate 3 ML AMPUL.NEB INHALATION (08:14)
--- NOTE | 2022-03-21 08:45 | COLBX_PTH ---
PATIENT: ZAK HOYT LOC: EN U#:[id number] AGE/SX: 56/M ROOM: RE03/21/[address]: Dr. Mata Pastor DO : 1965 BED: DIS: 03/21/2022 SPEC #: [id number] RECD: 03/21/22 11:41 STATUS: ARY JOSÉ #: [id number] ABELARDO: 03/21/22 08:[address]: Mata Pastor DEPT: SURGICAL PATHOLOGY RECD BY: Latrice Garcia ENTERED: 03/21/22 12:37 SP TYPE: COLON BX MILADY DR: Dr. Nain Elizalde MD Tissues: A - COLON BIOPSY B - COLON BIOPSY C - Sigmoid colon biopsy D - Rectum, NOS Procedures: Surgery Specimen Level IV HEADER OPERATION: Colonoscopy ? open access (MAC), polypectomy PRE-OP DIAGNOSIS: Screening TISSUE SUBMITTED: A ? Random colonic biopsy, B ? Splenic flexure polyp, C ? Sigmoid polyp, D ? Rectal polyp MICROSCOPIC DIAGNOSIS A. Colon, random biopsy: Mild melanosis coli. B. Colonic polyp at splenic flexure, biopsy: Inflammatory polyp. C. Sigmoid colon polyp, biopsy: Fragments of inflammatory polyp. D. Rectal polyp, biopsy: Inflammatory polyp. AM:natalie 03/22/2022 MICROSCOPIC DESCRIPTION Slides are reviewed. GROSS DESCRIPTION A - Received in fixative is one container labeled with the patient's name and designated random colonic biopsy. The specimen consists of multiple irregular fragments of light holley soft tissue that in aggregate measure 1.5 x 0.3 x 0.1 cm. The specimen is totally submitted in one cassette. B - Received in fixative is one container labeled with the patient's name and designated splenic flexure polyp. The specimen consists of a holley-pink polyp measuring 0.5 x 0.5 x 0.4 cm. The entire specimen is submitted in one cassette. C - Received in fixative is one container labeled with the patient's name and designated sigmoid polyp. The specimen consists of two irregular fragments of light holley soft tissue that in aggregate measure 0.9 x 0.5 x 0.3 cm. The specimen is totally submitted in one cassette. D - Received in fixative is one container labeled with the patient's name and designated rectal polyp. The specimen consists of a holley-pink polyp measuring 1 x 1 x 0.6 cm. The apparent base is inked and the polyp is bisected. The entire specimen is submitted in one cassette. / TASHIA:natalie 03/21/2022 TC:5 CPT: 98490 x4
[2022-03-21 08:50] LABS: Bedside Glucose 151 mg/dL (74-106)
--- NOTE | 2022-03-21 09:03 | PCM.HP.STD ---
[facility] - General General Date of Admission: 03/21/22 Date of Service: 03/21/22 Chief Complaint: Screening colonoscopy HPI Misa HOYT, is a 56 M who presents today for screening colonoscopy. He is not having any nausea vomiting or diarrhea. He is not having chest pain or shortness of breath. He is not have any weakness. He is not have any headache or dizziness. He has not had a colonoscopy in the past. He has no family history of colorectal malignancy. [facility] Medical History (Updated 03/21/22 @ 08:25 by Yeni Wu RN) Asthma Atherosclerosis of coronary artery of [place] heart without angina pectoris Chest pain COPD (chronic obstructive pulmonary disease) COPD exacerbation Diabetes Former smoker Hepatitis Hypertension Hypertension Hypothyroidism Irregular heart beat Kidney stones NSVT (nonsustained ventricular tachycardia) Tumor Home Medications furosemide 40 mg tablet 40 mg PO BID@1000,1800 04/23/19 [Rx Last Taken 09/12/21] potassium chloride 20 mEq tablet,extended release(part/cryst) 20 meq PO DAILYCM 04/23/19 [Rx Last Taken 09/13/21] metformin 1,000 mg tablet 1,000 mg PO BID DM 01/18/21 [History Last Taken 09/13/21] atorvastatin 10 mg tablet 80 mg PO QHS CHOLESTEROL 02/05/21 [History Last Taken 09/12/21] levothyroxine 200 mcg capsule 200 mcg PO DAILY thyroid 02/05/21 [History Last Taken 09/13/21] sennosides 8.6 mg-docusate sodium 50 mg tablet (Senna Plus) 2 tab-cap PO QHS constipation 02/05/21 [History Last Taken Unknown] sotalol 120 mg tablet 120 mg PO BID heart rate 02/05/21 [History Last Taken 09/13/21] tamsulosin 0.4 mg capsule 0.4 mg PO DAILY prostate 02/05/21 [History Last Taken 09/12/21] albuterol sulfate 90 mcg/actuation aerosol inhaler 2 puff inhalation Q4H PRN Shortness Of Breath Or Wheezing 02/11/21 [History Last Taken Unknown] dulaglutide 4.5 mg/0.5 mL subcutaneous pen injector 4.5 mg subcut QWEEK diabetes 05/22/21 [History Last Taken 09/07/21] duloxetine 60 mg capsule,delayed release 60 mg PO BID DEPRESSION 05/22/21 [History Last Taken 09/13/21] metoprolol tartrate 25 mg tablet 25 mg PO BID 10/02/21 [History Last Taken Unknown] lisinopril 10 mg tablet 5 mg PO DAILY blood pressure 01/10/22 [History Last Taken Unknown] melatonin 3 mg capsule 3 mg PO HS PRN Sleep 01/10/22 [History Last Taken Unknown] montelukast 10 mg tablet (Singulair) 10 mg PO QHS 01/10/22 [History Last Taken Unknown] acetaminophen 650 mg tablet,extended release (Tylenol Arthritis Pain) 650 mg PO Q8H PRN pain 02/04/22 [History Last Taken Unknown] aluminum-mag hydroxide-simethicone 400 mg-400 mg-40 mg/5 mL oral susp (Mylanta Maximum Strength) 30 ml PO TID PRN Indigestion 02/04/22 [History Last Taken Unknown] guaifenesin 600 mg tablet, extended release 12 hr (Mucinex) 600 mg PO Q12H PRN Congestion 02/04/22 [History Last Taken Unknown] omega-3 fatty acids 1,000 mg capsule 1,000 mg PO BID 02/04/22 [History Last Taken Unknown] Allergy/AdvReac Type Severity Reaction Status Date / Time No Known Allergies Allergy Verified 03/21/22 08:11 Surgical History History of coronary artery stent placement (01/18/21) History of thyroidectomy Social History Smoking Status: Former smoker how long ago did patient quit smokin years ago alcohol intake: never substance use type: does not use caffeine: Yes Type: carbonated beverages ROS Constitutional Constitutional: Reports fatigue and malaise; Denies chills or frequent falls Eyes Eyes: Reports acute decrease in peripheral vision; Denies change in vision, double vision or loss of vision ENT HEENT: Reports dizziness; Denies bleeding gums Cardiovascular Cardiovascular: Reports as per HPI Respiratory/Chest Respiratory/Chest: Denies cough, shortness of breath at rest or shortness of breath with exertion Gastrointestinal Gastrointestinal: Reports other Details: Some lLUQ pain that is not new ; Denies bloating or heartburn Musculoskeletal Musculoskeletal: Reports arthralgias Vital Signs Vital Signs Vital Signs: 03/21/22 08:13 03/21/22 08:13 03/21/22 08:14 Temperature 97.6 F L Temperature Source Temporal Pulse Rate 79 79 Respiratory Rate 16 18 Respiratory Pattern Normal Normal Blood Pressure 129/81 H Blood Pressure Mean 97 Blood Pressure Source Monitor Blood Pressure Position Sitting Blood Pressure Location Right Arm Pulse Ox 98 Oxygen Delivery Method Room Air Weight Weight: 308 lb 3.3 oz Body Mass Index (BMI) 41.8 Physical Exam Const alert, oriented x3 and no apparent distress General Appearance: cooperative, comfortable and well kempt Exam Limitations: no limitations HEENT normocephalic, head/scalp atraumatic, hearing grossly normal bilaterally and moist oral mucous membranes Eyes PERRL, EOMs intact bilaterally and conjunctivae normal Neck no lymphadenopathy, supple and no JVD Resp normal respiratory effort, no retractions, no use of accessory muscles and clear to auscultation bilaterally Cardio regular rate, regular rhythm, S1 normal heart sound, S2 normal heart sound and no murmurs GI normal to inspection, nondistended, normoactive bowel sounds, soft to palpation and non-tender Extremity normal to inspection, full ROM and no clubbing, cyanosis or edema Skin no rashes or lesions noted Neuro oriented x3 and CN's II-XII intact bilaterally Sensorium / Orientation: awake and alert Psych affect normal Results Lab / Micro Data Labs: Laboratory Results - last 24 hr 03/21/22 08:09: POC Glucose 151 H Assessment & Plan Assessment/Plan (1) Encounter for screening for malignant neoplasm of colon: PLAN: He was explained alternatives, risk, benefits include not withstanding bleeding, infection, sepsis, perforation, need for emergent turn to . He will look have an ASA of 3.
--- NOTE | 2022-03-21 09:58 | OP.COLON_ITS ---
Patient Name: Derrell Naranjo Procedure Date: 03/21/2022 9:05 AM Date of : 1965 Age: 56 Procedure: Colonoscopy Indications: Screening for colorectal malignant neoplasm Providers: Mata Pastor DO Referring MD: Mata Pastor DO Medicines: Monitored Anesthesia Care Patient Profile: This is a 56 year old male. Refer to note in patient chart for documentation of history and physical. Last Colonoscopy: none. The patient's first colonoscopy is today. Complications: No immediate complications. Procedure: Pre-Anesthesia Assessment: - Prior to the procedure, a History and Physical was performed, and patient medications and allergies were reviewed. The patient is competent. The risks and benefits of the procedure and the sedation options and risks were discussed with the patient. All questions were answered and informed consent was obtained. Patient identification and proposed procedure were verified by the physician in the pre-procedure area. Mental Status Examination: alert and oriented. Airway Examination: normal oropharyngeal airway and neck mobility. Respiratory Examination: clear to auscultation. CV Examination: normal. Prophylactic Antibiotics: The patient does not require prophylactic antibiotics. Prior Anticoagulants: The patient has taken no previous anticoagulant or antiplatelet agents. After reviewing the risks and benefits, the patient was deemed in satisfactory condition to undergo the procedure. The anesthesia plan was to use monitored anesthesia care (MAC). Immediately prior to administration of medications, the patient was re-assessed for adequacy to receive sedatives. The heart rate, respiratory rate, oxygen saturations, blood pressure, adequacy of pulmonary ventilation, and response to care were monitored throughout the procedure. The physical status of the patient was re-assessed after the procedure. After I obtained informed consent, the scope was passed under direct vision. Throughout the procedure, the patient's blood pressure, pulse, and oxygen saturations were monitored continuously. The was introduced through the anus and advanced to the cecum, identified by appendiceal orifice and ileocecal valve. The colonoscopy was performed without difficulty. The patient tolerated the procedure well. The quality of the bowel preparation was fair. Scope In: 9:17:33 AM Scope Withdrawal Time 0 hours 19 minutes 17 seconds Scope Out: 9:43:57 AM Total Procedure Duration Time 0 hours 26 minutes 24 seconds Findings: The perianal and digital rectal examinations were normal. Multiple sessile, non-bleeding polyps were found in the entire colon. The polyps were 5 mm in size. Three sessile polyps were found in the rectum, sigmoid colon and descending colon. The polyps were 1 to 2 mm in size. These polyps were removed with a hot snare. Resection and retrieval were complete. Verification of patient identification for the specimen was done. Estimated blood loss was minimal. An area of moderately congested mucosa was found in the entire colon. Biopsies were taken with a cold forceps for histology. Verification of patient identification for the specimen was done. Estimated blood loss was minimal. A few small and large-mouthed diverticula were found in the recto-sigmoid colon and sigmoid colon. Impression: - Preparation of the colon was fair. - Multiple 5 mm, non-bleeding polyps in the entire colon. - Three 1 to 2 mm polyps in the rectum, in the sigmoid colon and in the descending colon, removed with a hot snare. Resected and retrieved. - Congested mucosa in the entire examined colon. Biopsied. - Diverticulosis in the recto-sigmoid colon and in the sigmoid colon. Recommendation: - Discharge patient to home. - Resume previous diet. - Continue present medications. - Repeat colonoscopy in 3 months because the bowel preparation was poor. -I suspect that there is a hereditary polyposis syndrome. This is possibly secondary to hyperplastic polyposis syndrome. I will see what the pathology is from the polyps that were removed and the biopsies that were taken so we can know if there needs to be genetic testing done. Procedure Code(s): --- Professional --- 57411, Colonoscopy, flexible; with removal of tumor(s), polyp(s), or other lesion(s) by snare technique 71742, 59, Colonoscopy, flexible; with biopsy, single or multiple CPT copyright 2017 [employer]. All rights reserved. The codes documented in this report are preliminary and upon woodworking machinist review may be revised to meet current compliance requirements. Mata Pastor DO 03/21/2022 9:57:42 AM This report has been signed electronically. Number of Addenda: 0 Note Initiated On: 03/21/2022 9:05 AM
--- NOTE | 2022-03-21 09:59 | OP.CCLET_ITS ---
03/21/2022 Nain Elizalde [address] [place] [id number] Re : Colonoscopy procedure for Derrell Woodsover Dear Dr. Elizalde This procedure was performed on February. My impressions and recommendations are as follows: Impressions : - Preparation of the colon was fair. - Multiple 5 mm, non-bleeding polyps in the entire colon. - Three 1 to 2 mm polyps in the rectum, in the sigmoid colon and in the descending colon, removed with a hot snare. Resected and retrieved. - Congested mucosa in the entire examined colon. Biopsied. - Diverticulosis in the recto-sigmoid colon and in the sigmoid colon. Recommendations : - Discharge patient to home. - Resume previous diet. - Continue present medications. - Repeat colonoscopy in 3 months because the bowel preparation was poor. -I suspect that there is a hereditary polyposis syndrome. This is possibly secondary to hyperplastic polyposis syndrome. I will see what the pathology is from the polyps that were removed and the biopsies that were taken so we can know if there needs to be genetic testing done. My findings are described in the full procedure note, which is enclosed. If I can be of further assistance, please feel free to contact me at . Sincerely, Mata Pastor, 03/21/2022 9:57:42 AM This report has been signed electronically.
--- NOTE | 2022-03-21 11:02 | SUR.PHASEII ---
Dr. Pastor updated that patient arrived to the hospital via hospital transportation and does not have a responsible person with him or that he can call to ride home with him. Dr. Pastor states patient is cleared to go home with hospital transportation with no responsible person. Patient aware of risks of not having someone with him.
== END 2022-03-21 11:11 | disposition home or self-care (01) ==
LOC: EN 07:32 → AC 07:33
PROVIDERS: PCP Family Medicine; Referring Provider Family Medicine; Visit Provider Internal Medicine Gastroenterology
PROC: 0DJD8ZZ Inspection of Lower Intestinal Tract, Via Natural or Artificial Opening Endoscopic (ICD-10-PCS; CPT 45378; principal; 2022-03-21 08:40)
DX: Z12.11 Encounter for screening for malignant neoplasm of colon (principal); J44.9 Chronic obstructive pulmonary disease, unspecified; K51.40 Inflammatory polyps of colon without complications; E11.9 Type 2 diabetes mellitus without complications; I25.10 Atherosclerotic heart disease of native coronary artery without angina pectoris; K63.89 Other specified diseases of intestine; K57.30 Diverticulosis of large intestine without perforation or abscess without bleeding; K62.1 Rectal polyp; I10 Essential (primary) hypertension; E78.5 Hyperlipidemia, unspecified; E03.9 Hypothyroidism, unspecified; Z79.84 Long term (current) use of oral hypoglycemic drugs; Z95.5 Presence of coronary angioplasty implant and graft; Z87.891 Personal history of nicotine dependence; Z79.899 Other long term (current) drug therapy
CPT/HCPCS: 45385; 45380; 82962; 88305; 94640; J7120; J2405

== ENCOUNTER 2022-09-17 11:08 | Day surgery (SDC) | payer MEDICARE, MEDICAID, SELFPAY ==
[2022-09-17 11:55] VITALS: BP 136/83; PULSE 80; RESP 16; TEMP 36.4; O2SAT 95; BMI 42.7
[2022-09-17] MEDS: Lactated Ringers 1,000 ML 15 ML IV (11:58)
[2022-09-17 12:20] LABS: Bedside Glucose 148 mg/dL (74-106)
--- NOTE | 2022-09-17 12:30 | COLBX_PTH ---
PATIENT: ZAK HOYT LOC: EN U#:[id number] AGE/SX: 57/M ROOM: RE09/17/[address]: Dr. Mata Pastor DO : 1965 BED: DIS: 09/17/2022 SPEC #: [id number] RECD: 09/17/22 16:43 STATUS: ARY JOSÉ #: [id number] ABELARDO: 09/17/22 12:[address]: Mata Pastor DEPT: SURGICAL PATHOLOGY RECD BY: Latrice Garcia ENTERED: 09/18/22 09:24 SP TYPE: COLON BX MILADY DR: Dr. Nain Elizalde MD Tissues: A - Sigmoid colon biopsy B - Transverse colon C - Ascending colon Procedures: Surgery Specimen Level IV HEADER OPERATION: Colonoscopy (MAC), polypectomy PRE-OP DIAGNOSIS: History of colonic polyps TISSUE SUBMITTED: A ? Sigmoid polyp x2, B ? Transverse colon polyp, C ? Ascending colon polyp MICROSCOPIC DIAGNOSIS A. Sigmoid colon polyps, biopsy: Consistent with fragments of inflammatory polyp. B. Transverse colon polyp, biopsy: Fragments of tubular adenoma. C. Ascending colon polyp, biopsy: Consistent with inflammatory polyp. AM:natalie 09/19/2022 MICROSCOPIC DESCRIPTION Slides are reviewed. GROSS DESCRIPTION A - Received in fixative is one container labeled with the patient's name and designated sigmoid polyp x2. The specimen consists of multiple irregular fragments of light holley soft tissue that in aggregate measure 1.5 x 0.5 x 0.1 cm. The specimen is totally submitted in one cassette. B - Received in fixative is one container labeled with the patient's name and designated transverse colon polyp. The specimen consists of two irregular fragments of light holley soft tissue that in aggregate measure 0.8 x 0.5 x 0.3 cm. The specimen is totally submitted in one cassette. C - Received in fixative is one container labeled with the patient's name and designated ascending colon polyp. The specimen consists of one irregular fragment of light holley soft tissue that measures 0.3 x 0.3 x 0.2 cm. The specimen is totally submitted in one cassette. / TASHIA:natalie 09/18/2022 TC:5 CPT: 31918 x3
--- NOTE | 2022-09-17 12:36 | HP.PCM_ITS ---
[facility] - General General Date of Admission: 09/17/22 Date of Service: 09/17/22 Chief Complaint: History of polyps [facility] Narrative ZAK HOYT, is a 57 M who presents today for follow-up colonoscopy. He had a colonoscopy approximately 5 months ago and was discovered to have multiple polyps during the procedure. He also had a very poor prep during the procedure. He comes back today for follow-up colonoscopy. He has a past medical history morbid obesity, diabetes, chronic basis uses, history of pneumonia, OPD, CAD status post PTCA with stents and hyperlipidemia. He is not have any chest pain at this time. He denies any shortness of breath. He does not have any nausea vomit diarrhea. [facility] Medical History (Updated 09/17/22 @ 12:[address] August Friend, DO) Asthma Atherosclerosis of coronary artery of [place] heart without angina pectoris Cardiology follow-up encounter COPD (chronic obstructive pulmonary disease) CPAP (continuous positive airway pressure) dependence Depression Diabetes Dietary restriction Fatty liver Former smoker History of echocardiogram History of edema Hypertension Hypothyroidism Irregular heart beat Kidney stones Lives in assisted living facility [place] NSVT (nonsustained ventricular tachycardia) Shortness of breath on exertion Syncope Tumor Wears dentures Wears glasses Home Medications furosemide 40 mg tablet 40 mg PO BID@1000,1800 04/23/19 [Rx Last Taken 09/12/21] potassium chloride 20 mEq tablet,extended release(part/cryst) 20 meq PO DAILYCM 04/23/19 [Rx Last Taken 09/13/21] metformin 1,000 mg tablet 1,000 mg PO BID DM 01/18/21 [History Last Taken 09/13/21] atorvastatin 10 mg tablet 80 mg PO QHS CHOLESTEROL 02/05/21 [History Last Taken 09/12/21] sennosides 8.6 mg-docusate sodium 50 mg tablet (Senna Plus) 2 tab-cap PO QHS constipation 02/05/21 [History Last Taken Unknown] sotalol 120 mg tablet 120 mg PO BID heart rate 02/05/21 [History Last Taken 09/17/22 07:55] tamsulosin 0.4 mg capsule 0.4 mg PO QHS prostate 02/05/21 [History Last Taken 09/12/21] albuterol sulfate 90 mcg/actuation aerosol inhaler 2 puff inhalation Q4H PRN Shortness Of Breath Or Wheezing 02/11/21 [History Last Taken Unknown] duloxetine 60 mg capsule,delayed release 60 mg PO BID DEPRESSION 05/22/21 [History Last Taken 09/13/21] metoprolol tartrate 25 mg tablet 25 mg PO BID 10/02/21 [History Last Taken 08/22 02/12 07:55] lisinopril 10 mg tablet 5 mg PO DAILY blood pressure 01/10/22 [History Last Taken 09/17/22 07:55] montelukast 10 mg tablet (Singulair) 10 mg PO QHS 01/10/22 [History Last Taken Unknown] acetaminophen 650 mg tablet,extended release (Tylenol Arthritis Pain) 650 mg PO Q8H PRN pain 02/04/22 [History Last Taken Unknown] aluminum-mag hydroxide-simethicone 400 mg-400 mg-40 mg/5 mL oral susp (Mylanta Maximum Strength) 30 ml PO TID PRN Indigestion 02/04/22 [History Last Taken Unknown] guaifenesin 600 mg tablet, extended release 12 hr (Mucinex) 600 mg PO Q12H PRN Congestion 02/04/22 [History Last Taken Unknown] omega-3 fatty acids 1,000 mg capsule 2,000 mg PO BID 02/04/22 [History Last Taken Unknown] dulaglutide 4.5 mg/0.5 mL subcutaneous pen injector (Trulicity) 4.5 mg subcut FR 07/31/22 [History Last Taken Unknown] fluticasone propionate 115 mcg-salmeterol 21 mcg/actuation HFA inhaler (Advair HFA) 2 puff inhalation BID 07/31/22 [History Last Taken Unknown] levothyroxine 175 mcg tablet 200 mcg PO DAILY 07/31/22 [History Last Taken 09/17/22 07:55] melatonin 10 mg tablet 10 mg PO HS 07/31/22 [History Last Taken Unknown] Allergy/AdvReac Type Severity Reaction Status Date / Time No Known Allergies Allergy Verified 09/17/22 11:53 Surgical History History of coronary artery stent placement (01/18/21) History of thyroidectomy Social History Smoking Status: Former smoker how long ago did patient quit smokin years ago alcohol intake: never substance use type: does not use caffeine: Yes Type: carbonated beverages ROS Constitutional Constitutional: Reports fatigue and malaise; Denies chills or frequent falls Eyes Eyes: Reports acute decrease in peripheral vision; Denies change in vision, double vision or loss of vision ENT HEENT: Reports dizziness; Denies bleeding gums Cardiovascular Cardiovascular: Reports as per HPI Respiratory/Chest Respiratory/Chest: Denies cough, shortness of breath at rest or shortness of breath with exertion Gastrointestinal Gastrointestinal: Reports other Details: Some lLUQ pain that is not new ; Denies bloating or heartburn Musculoskeletal Musculoskeletal: Reports arthralgias Vital Signs Vital Signs Vital Signs: 09/17/22 11:55 09/17/22 11:55 Temperature 97.6 F L Temperature Source Temporal Pulse Rate 80 Respiratory Rate 16 Respiratory Pattern Normal Blood Pressure 136/83 H Blood Pressure Mean 100 Blood Pressure Source Monitor Blood Pressure Position Sitting Blood Pressure Location Right Forearm Pulse Ox 95 Oxygen Delivery Method Room Air Weight Weight: 324 lb 4.8 oz Body Mass Index (BMI) 42.7 Physical Exam Const alert, oriented x3 and no apparent distress General Appearance: cooperative, comfortable and well kempt Exam Limitations: no limitations HEENT normocephalic, head/scalp atraumatic, hearing grossly normal bilaterally and moist oral mucous membranes Eyes PERRL, EOMs intact bilaterally and conjunctivae normal Neck no lymphadenopathy, supple and no JVD Resp normal respiratory effort, no retractions, no use of accessory muscles and clear to auscultation bilaterally Cardio regular rate, regular rhythm, S1 normal heart sound, S2 normal heart sound and no murmurs GI normal to inspection, nondistended, normoactive bowel sounds, soft to palpation and non-tender Extremity normal to inspection, full ROM and no clubbing, cyanosis or edema Skin no rashes or lesions noted Neuro oriented x3 and CN's II-XII intact bilaterally Sensorium / Orientation: awake and alert Psych affect normal Results Lab / Micro Data Labs: Laboratory Results - last 24 hr 09/17/22 11:45: POC Glucose 148 H Assessment & Plan Assessment/Plan (1) Personal history of colonic polyps: PLAN: He will undergo colonoscopy. He was explained alternatives, risk, benefits including outstanding bleeding, infection, sepsis, perforation, need for emergent . He will have an ASA of 3.
[2022-09-17 13:20] VITALS: BP 101/64; BP 136/83; PULSE 75; RESP 16; TEMP 36.3; O2SAT 100
--- NOTE | 2022-09-17 13:24 | OP.COLON_ITS ---
Patient Name: Derrell Naranjo Procedure Date: 09/17/2022 12:31 PM Date of : 1965 Age: 57 Procedure: Colonoscopy Indications: High risk colon cancer surveillance: Personal history of colonic polyps Providers: Mata Pastor DO Medicines: Monitored Anesthesia Care Patient Profile: This is a 57 year old male. Refer to note in patient chart for documentation of history and physical. Last Colonoscopy: 6 months ago. Complications: No immediate complications. Procedure: Pre-Anesthesia Assessment: - Prior to the procedure, a History and Physical was performed, and patient medications and allergies were reviewed. The risks and benefits of the procedure and the sedation options and risks were discussed with the patient. All questions were answered and informed consent was obtained. Patient identification and proposed procedure were verified by the physician. Mental Status Examination: normal. Airway Examination: normal oropharyngeal airway and neck mobility. Respiratory Examination: clear to auscultation. CV Examination: normal. Prophylactic Antibiotics: The patient does not require prophylactic antibiotics. Prior Anticoagulants: The patient has taken no previous anticoagulant or antiplatelet agents. After reviewing the risks and benefits, the patient was deemed in satisfactory condition to undergo the procedure. The anesthesia plan was to use monitored anesthesia care (MAC). Immediately prior to administration of medications, the patient was re-assessed for adequacy to receive sedatives. The heart rate, respiratory rate, oxygen saturations, blood pressure, adequacy of pulmonary ventilation, and response to care were monitored throughout the procedure. The physical status of the patient was re-assessed after the procedure. After I obtained informed consent, the scope was passed under direct vision. Throughout the procedure, the patient's blood pressure, pulse, and oxygen saturations were monitored continuously. The pediatric colonoscope was introduced through the anus and advanced to the cecum, identified by appendiceal orifice and ileocecal valve. The colonoscopy was performed without difficulty. The patient tolerated the procedure well. The quality of the bowel preparation was fair. Scope In: 12:44:56 PM Scope Withdrawal Time 0 hours 15 minutes 49 seconds Scope Out: 1:12:13 PM Total Procedure Duration Time 0 hours 27 minutes 17 seconds Findings: The perianal and digital rectal examinations were normal. A few small-mouthed diverticula were found in the recto-sigmoid colon and sigmoid colon. Five sessile polyps were found in the sigmoid colon, transverse colon and ascending colon. The polyps were 1 to 2 mm in size. These polyps were removed with a hot snare. Resection and retrieval were complete. Verification of patient identification for the specimen was done. Estimated blood loss was minimal. A moderate amount of stool was found in the rectum, in the recto-sigmoid colon, in the sigmoid colon, in the descending colon, at the splenic flexure and in the cecum, precluding visualization. Impression: - Preparation of the colon was fair. - Diverticulosis in the recto-sigmoid colon and in the sigmoid colon. - Five 1 to 2 mm polyps in the sigmoid colon, in the transverse colon and in the ascending colon, removed with a hot snare. Resected and retrieved. - Stool in the rectum, in the recto-sigmoid colon, in the sigmoid colon, in the descending colon, at the splenic flexure and in the cecum. Recommendation: - Discharge patient to home. - Resume previous diet. - Repeat colonoscopy in 6 months for surveillance. - Continue present medications. Procedure Code(s): --- Professional --- 38403, Colonoscopy, flexible; with removal of tumor(s), polyp(s), or other lesion(s) by snare technique CPT copyright 2017 [employer]. All rights reserved. The codes documented in this report are preliminary and upon dining room captain review may be revised to meet current compliance requirements. Mata Pastor DO 09/17/2022 1:24:01 PM This report has been signed electronically. Number of Addenda: 0 Note Initiated On: 09/17/2022 12:31 PM
[2022-09-17 13:25] VITALS: BP 100/65; BP 136/83; PULSE 75; RESP 18; O2SAT 96
--- NOTE | 2022-09-17 13:25 | OP.CCLET_ITS ---
09/17/2022 Nain Elizalde [address] [place] [id number] Re : Colonoscopy procedure for Derrell [place] Dear Dr. Elizalde This procedure was performed on Saturday, September 17, 2022. My impressions and recommendations are as follows: Impressions : - Preparation of the colon was fair. - Diverticulosis in the recto-sigmoid colon and in the sigmoid colon. - Five 1 to 2 mm polyps in the sigmoid colon, in the transverse colon and in the ascending colon, removed with a hot snare. Resected and retrieved. - Stool in the rectum, in the recto-sigmoid colon, in the sigmoid colon, in the descending colon, at the splenic flexure and in the cecum. Recommendations : - Discharge patient to home. - Resume previous diet. - Repeat colonoscopy in 6 months for surveillance. - Continue present medications. My findings are described in the full procedure note, which is enclosed. If I can be of further assistance, please feel free to contact me at . Sincerely, Mata Pastor, 09/17/2022 1:24:01 PM This report has been signed electronically.
[2022-09-17 13:30] VITALS: BP 111/69; BP 136/83; PULSE 75; RESP 16; O2SAT 96
[2022-09-17 13:35] VITALS: BP 120/71; BP 136/83; PULSE 77; RESP 18; TEMP 36.7; O2SAT 94
[2022-09-17 13:56] VITALS: BP 136/83
== END 2022-09-17 14:08 | disposition home or self-care (01) ==
PROVIDERS: PCP Family Medicine; Referring Provider Family Medicine; Visit Provider Internal Medicine Gastroenterology
PROC: 0DJD8ZZ Inspection of Lower Intestinal Tract, Via Natural or Artificial Opening Endoscopic (ICD-10-PCS; CPT 45378; principal; 2022-09-17 12:25)
DX: D12.3 Benign neoplasm of transverse colon (principal); J44.9 Chronic obstructive pulmonary disease, unspecified; E66.01 Morbid (severe) obesity due to excess calories; E11.9 Type 2 diabetes mellitus without complications; K57.30 Diverticulosis of large intestine without perforation or abscess without bleeding; I10 Essential (primary) hypertension; I25.10 Atherosclerotic heart disease of native coronary artery without angina pectoris; E78.5 Hyperlipidemia, unspecified; K76.0 Fatty (change of) liver, not elsewhere classified; F32.A Depression, unspecified; E03.9 Hypothyroidism, unspecified; Z95.5 Presence of coronary angioplasty implant and graft; Z79.899 Other long term (current) drug therapy; Z79.84 Long term (current) use of oral hypoglycemic drugs; Z86.010 Personal history of colon polyps; Z87.891 Personal history of nicotine dependence
CPT/HCPCS: 45385; 82962; 88305; J7120; J2405

== ENCOUNTER 2022-11-15 13:14 | Emergency (ER) | payer MEDICARE, MEDICAID, SELFPAY ==
[2022-11-15 13:15] VITALS: BP 144/84; PULSE 81; RESP 20; TEMP 36.1; O2SAT 97; BMI 45.0
--- NOTE | 2022-11-15 14:48 | EDS_ITS ---
HPI History of Present Illness Chief Complaint: Fall Narrative Narrative: Patient is a 57-year-old male who is presenting to the ER after he fell face forward and hit the right side of his face on the ground. Patient has no symptoms at this time. Patient lives at assisted living facility. Patient says that he was bending down to pick something off the ground, lost his balance, and then fell forward, landing on his knees and the right side of his face. Patient takes a baby aspirin daily. Patient has no symptoms. Patient is currently living at a nursing facility. He has no headache, neck pain, no facial pain. Patient did have a small episode of right epistaxis that has stopped. Patient has no pain in the facial bones, no pain to his nose. No dental injury. No extremity complaints. Patient is not sure why he is here in the Emergency Room, he believes that the nursing facility sent him in because a close head injury just to be safe. Patient's had no nausea, vomiting, no loss of consciousness, patient looks well. Patient presented by EMS, no cervical collar. [facility] Medical History (Updated 11/15/22 @ 14:[address] Abdi Cohen, ) Asthma Atherosclerosis of coronary artery of [place] heart without angina pectoris Cardiology follow-up encounter COPD (chronic obstructive pulmonary disease) CPAP (continuous positive airway pressure) dependence Depression Diabetes Dietary restriction Fatty liver Former smoker History of echocardiogram History of edema Hypertension Hypothyroidism Irregular heart beat Kidney stones Lives in assisted living facility Low iron NSVT (nonsustained ventricular tachycardia) Shortness of breath on exertion Syncope Tumor Wears dentures Wears glasses Home Medications furosemide 40 mg tablet 40 mg PO BID@1000,1800 04/23/19 [Rx Last Taken 09/12/21] potassium chloride 20 mEq tablet,extended release(part/cryst) 20 meq PO DAILYCM 04/23/19 [Rx Last Taken 09/13/21] metformin 1,000 mg tablet 1,000 mg PO BID DM 01/18/21 [History Last Taken 09/13/21] atorvastatin 10 mg tablet 80 mg PO QHS CHOLESTEROL 02/05/21 [History Last Taken 09/12/21] sennosides 8.6 mg-docusate sodium 50 mg tablet (Senna Plus) 2 tab-cap PO QHS constipation 02/05/21 [History Last Taken Unknown] sotalol 120 mg tablet 120 mg PO BID heart rate 02/05/21 [History Last Taken 09/17/22 07:55] tamsulosin 0.4 mg capsule 0.4 mg PO QHS prostate 02/05/21 [History Last Taken 09/12/21] albuterol sulfate 90 mcg/actuation aerosol inhaler 2 puff inhalation Q4H PRN Shortness Of Breath Or Wheezing 02/11/21 [History Last Taken Unknown] duloxetine 60 mg capsule,delayed release 60 mg PO BID DEPRESSION 05/22/21 [History Last Taken 09/13/21] metoprolol tartrate 25 mg tablet 25 mg PO BID 10/02/21 [History Last Taken 09/17/22 07:55] lisinopril 10 mg tablet 5 mg PO DAILY blood pressure 01/10/22 [History Last Taken 09/17/22 07:55] montelukast 10 mg tablet (Singulair) 10 mg PO QHS 01/10/22 [History Last Taken Unknown] acetaminophen 650 mg tablet,extended release (Tylenol Arthritis Pain) 650 mg PO Q8H PRN pain 02/04/22 [History Last Taken Unknown] aluminum-mag hydroxide-simethicone 400 mg-400 mg-40 mg/5 mL oral susp (Mylanta Maximum Strength) 30 ml PO TID PRN Indigestion 02/04/22 [History Last Taken Unknown] guaifenesin 600 mg tablet, extended release 12 hr (Mucinex) 600 mg PO Q12H PRN Congestion 02/04/22 [History Last Taken Unknown] omega-3 fatty acids 1,000 mg capsule 2,000 mg PO BID 02/04/22 [History Last Taken Unknown] dulaglutide 4.5 mg/0.5 mL subcutaneous pen injector (Trulicity) 4.5 mg subcut FR 07/31/22 [History Last Taken Unknown] fluticasone propionate 115 mcg-salmeterol 21 mcg/actuation HFA inhaler (Advair HFA) 2 puff inhalation BID 07/31/22 [History Last Taken Unknown] levothyroxine 175 mcg tablet 200 mcg PO DAILY 07/31/22 [History Last Taken 09/17/22 07:55] melatonin 10 mg tablet 10 mg PO HS 07/31/22 [History Last Taken Unknown] Allergy/AdvReac Type Severity Reaction Status Date / Time No Known Allergies Allergy Verified 09/17/22 11:53 Surgical History History of coronary artery stent placement (01/18/21) History of thyroidectomy Social History Smoking Status: Former smoker how long ago did patient quit smokin years ago alcohol intake: never substance use type: does not use caffeine: Yes Type: carbonated beverages ROS ROS ED ROS Narrative All systems are negative except as noted/marked. All systems reviewed and otherwise negative. EXAM Physical Exam Narrative Exam Narrative: Nurses note and vital signs reviewed and patient is not hypoxic. General: The patient appears well and in no apparent distress. Patient is resting comfortably on cart. Patient is not toxic, lethargic, or listless Skin: Warm, dry, no pallor noted. There is no rash noted. No petechiae, purpura. Head: Normocephalic, atraumatic. Patient has no tenderness to palpation around his orbits bilateral, no pain and nasal bridge, no facial bony tenderness to palpation. Eye: Normal conjunctiva, no drainage, EOMI. PERRL. Ears, Nose, Mouth, and Throat: oral mucosa is moist. Nares patent. Mouth without vesicles. Patient has minimal amount of dried blood in the right nostril. No septal hematoma, no septal deviation. No active bleeding. No blood to the posterior pharynx. Cardiovascular: Regular Rate and Rhythm, no murmur, gallop, rub Respiratory: Patient is in no distress, no accessory muscle use, lungs are clear to auscultation, no wheezing, rales or rhonchi. Back: non-tender, no CVA tenderness bilaterally to percussion. No CT LS midline pain GI: soft, obese, no tenderness to palpation, no masses appreciated. No sukhdev ound, guarding, or rigidity noted. No flank pain bilateral, No distention Musculoskeletal: Patient has full range of motion of all of the extremities, no motor, sensory, or focal neurological deficits Neurological: A&O x3, normal speech Psychiatric: Cooperative Const Vital Signs: 11/15/22 13:15 11/15/22 13:18 Temperature 97.0 F L Temperature Source Temporal Pulse Rate 81 Respiratory Rate 20 H Respiratory Effort Normal Non-Labored Respiratory Pattern Normal Blood Pressure 144/84 H Blood Pressure Mean 104 Pulse Ox 97 Oxygen Delivery Method Room Air Room Air MDM MDM MDM Narrative Medical decision making narrative: Patient has been eating and drinking with no difficulty. Patient drank 2 cokes. Patient will be sent back to nursing facility. Close head injury and epistaxis was discussed at bedside and on discharge paperwork. There is no indication for any testing. Patient is not on blood thinners. Patient has no symptoms at all. Patient not needing any type of medical workup, patient states that he's had some imbalance and intermittent lightheaded and dizziness for months to years, there is nothing acute about his fall today. Patient did not want any type of lab testing or imaging either, but it did not appear to be warranted. Patient is thankful for having the drinks, has been pleasant waiting several hours for transport to go back to nursing facility. Discharge Plan Triage Chief Complaint: Fall ED Provider: Abdi Cohen Dx/Rx/DC Orders Clinical Impression: CHI (closed head injury), Facial contusion, Right-sided epistaxis Instructions: ED Epistaxis (Adult), ED Facial Contusion, ED Head Injury (Adult) Prescriptions: No Action sennosides-docusate sodium [Senna Plus] 8.6-50 mg tablet 2 tab-cap PO QHS sotalol 120 mg tablet 120 mg PO BID tamsulosin 0.4 mg capsule 0.4 mg PO QHS acetaminophen [Tylenol Arthritis Pain] 650 mg tablet extended release 650 mg PO Q8H PRN (Reason: pain) alum-mag hydroxide-simeth [Mylanta Maximum Strength] 400-400-40 mg/5 mL suspension 30 ml PO TID PRN (Reason: Indigestion) guaifenesin [Mucinex] 600 mg tablet extended release 12hr 600 mg PO Q12H PRN (Reason: Congestion) omega-3 fatty acids 1,000 mg capsule 2,000 mg PO BID metoprolol tartrate 25 mg tablet 25 mg PO BID montelukast [Singulair] 10 mg tablet 10 mg PO QHS levothyroxine 175 mcg tablet 200 mcg PO DAILY Advair HFA 115-21 mcg/actuation HFA aerosol inhaler 2 puff inhalation BID melatonin 10 mg tablet 10 mg PO HS Trulicity 4.5 mg/0.5 mL pen injector 4.5 mg subcut FR furosemide 40 MG tablet 40 mg PO BID@1000,1800 0RF potassium chloride 20 MEQ tablet 20 meq PO DAILYCM 0RF metformin 1,000 mg tablet 1,000 mg PO BID atorvastatin 10 mg tablet 80 mg PO QHS duloxetine 60 mg capsule,delayed release(DR/EC) 60 mg PO BID albuterol sulfate 90 mcg/actuation HFA aerosol inhaler 2 puff INHALATION Q4H PRN (Reason: Shortness Of Breath Or Wheezing) lisinopril 10 mg tablet 5 mg PO DAILY Primary Care Provider: Nain Elizalde Referrals: Nain Elizalde MD [Primary Care Provider] - Activity Restrictions/Additional Instructions: Use Tylenol as needed for headache or pain. Increase fluids. Follow-up with PCP. Disposition Disposition: Home, Self Care Discharge Date/Time: 11/15/22 16:30
[2022-11-15 14:58] VITALS: RESP 18
== END 2022-11-15 16:30 | disposition home or self-care (01) ==
PROVIDERS: Emergency Provider Emergency Medicine; PCP Family Medicine; Visit Provider Emergency Medicine
DX: S00.83XA Contusion of other part of head, initial encounter (principal); R04.0 Epistaxis; I25.10 Atherosclerotic heart disease of native coronary artery without angina pectoris; Z87.891 Personal history of nicotine dependence; Z95.5 Presence of coronary angioplasty implant and graft; W19.XXXA Unspecified fall, initial encounter; Z79.82 Long term (current) use of aspirin
CPT/HCPCS: 99284

== ENCOUNTER 2023-11-06 05:56 | Day surgery (SDC) | payer MEDICARE, MEDICAID, SELFPAY ==
[2023-11-06] MEDS: Lactated Ringers 1,000 ML 15 ML IV (06:45)
[2023-11-06 06:46] VITALS: BP 111/67; PULSE 74; RESP 18; TEMP 36.7; O2SAT 96; BMI 41.5
--- NOTE | 2023-11-06 07:00 | COLBX_PTH ---
PATIENT: ZAK HOYT LOC: EN U#:[id number] AGE/SX: 58/M ROOM: RE11/06/[address]: Dr. Mata Pastor DO : 1965 BED: DIS: 11/06/2023 SPEC #: [id number] RECD: 11/06/23 09:18 STATUS: ARY JOSÉ #: [id number] ABELARDO: 11/06/23 07:[address]: Mata Pastor DEPT: SURGICAL PATHOLOGY RECD BY: Anastacio Orozco ENTERED: 11/06/23 12:31 SP TYPE: COLON BX OT DR: Radha Barajas, DIRECTOR OF STAFF DEVELOPMENT-C Tissues: A - Ascending colon B - Gastric mucous membrane C - SPLENIC FLEXURE D - Sigmoid colon biopsy Procedures: Surgery Specimen Level IV HEADER OPERATION: Colonoscopy, polypectomy PRE-OP DIAGNOSIS: Personal history of colonic polyps TISSUE SUBMITTED: A- Ascending polyps snare and biopsy, B- Hepatic flexure polyp , C- Splenic flexure polyps, D- Sigmoid polyps MICROSCOPIC DIAGNOSIS A. Ascending colon polyp, biopsy: Fragments of inflammatory polyp. B. Colonic polyp at hepatic flexure , biopsy: Polypoid fragments of benign colonic tissue with focal hyperplastic change. C. Splenic flexure polyp, biopsy: Tubular adenoma. D. Sigmoid colon polyps, biopsy: Polypoid fragments of colonic mucosa with focal hyperplastic change. / 11/07/2023 MICROSCOPIC DESCRIPTION Slides are reviewed. GROSS DESCRIPTION A. Received in fixative is one container labeled with the patient's name and designated Ascending polyps. The specimen consists of multiple irregular fragments of light [place] soft tissue that in aggregate measure 2.0 x 0.5 x 0.1 cm. The specimen is totally submitted in one cassette. B. Received in fixative is one container labeled with the patient's name and designated Hepatic flexure polyp. The specimen consists of two irregular fragments of light [place] soft tissue that in aggregate measure 0.6 x 0.4 x 0.1 cm. The specimen is totally submitted in one cassette. C. Received in fixative is one container labeled with the patient's name and designated Splenic flexure polyp. The specimen consists of multiple irregular fragments of light [place] soft tissue that in aggregate measure 0.8 x 0.5 x 0.1 cm. The specimen is totally submitted in one cassette. D. Received in fixative is one container labeled with the patient's name and designated Sigmoid polyps. The specimen consists of multiple irregular fragments of light [place] soft tissue that in aggregate measure 1.2 x 0.5 x 0.1 cm. The specimen is totally submitted in one cassette. TASHIA/ 11/06/2023 TC:5 CPT:02149l8
--- NOTE | 2023-11-06 07:15 | PCM.HP.BLA ---
History and Physical Date of Admission: 11/06/23 ZAK HOYT, is a 57 M who presents today for follow-up colonoscopy. He had a colonoscopy approximately 12 months ago and was discovered to have multiple polyps during the procedure. He also had a very poor prep during the procedure. He comes back today for follow-up colonoscopy. He has a past medical history morbid obesity, diabetes, chronic basis uses, history of pneumonia, OPD, CAD status post PTCA with stents and hyperlipidemia. He is not have any chest pain at this time. He denies any shortness of breath. He does not have any nausea vomit diarrhea. [facility] Medical History (Updated 09/17/22 @ 12:[address] August Friend, DO) Asthma Atherosclerosis of coronary artery of [place] heart without angina pectoris Cardiology follow-up encounter COPD (chronic obstructive pulmonary disease) CPAP (continuous positive airway pressure) dependence Depression Diabetes Dietary restriction Fatty liver Former smoker History of echocardiogram History of edema Hypertension Hypothyroidism Irregular heart beat Kidney stones Lives in assisted living facility Low iron NSVT (nonsustained ventricular tachycardia) Shortness of breath on exertion Syncope Tumor Wears dentures Wears glasses Home Medications furosemide 40 mg tablet 40 mg PO BID@1000,1800 04/23/19 [Rx Last Taken 09/12/21] potassium chloride 20 mEq tablet,extended release(part/cryst) 20 meq PO DAILYCM 04/23/19 [Rx Last Taken 09/13/21] metformin 1,000 mg tablet 1,000 mg PO BID DM 01/18/21 [History Last Taken 09/13/21] atorvastatin 10 mg tablet 80 mg PO QHS CHOLESTEROL 02/05/21 [History Last Taken 09/12/21] sennosides 8.6 mg-docusate sodium 50 mg tablet (Senna Plus) 2 tab-cap PO QHS constipation 02/05/21 [History Last Taken Unknown] sotalol 120 mg tablet 120 mg PO BID heart rate 02/05/21 [History Last Taken 09/17/22 07:55] tamsulosin 0.4 mg capsule 0.4 mg PO QHS prostate 02/05/21 [History Last Taken 09/12/21] albuterol sulfate 90 mcg/actuation aerosol inhaler 2 puff inhalation Q4H PRN Shortness Of Breath Or Wheezing 02/11/21 [History Last Taken Unknown] duloxetine 60 mg capsule,delayed release 60 mg PO BID DEPRESSION 11/30/21 [History Last Taken 09/13/21] metoprolol tartrate 25 mg tablet 25 mg PO BID 10/02/21 [History Last Taken 09/17/22 07:55] lisinopril 10 mg tablet 5 mg PO DAILY blood pressure 01/10/22 [History Last Taken 09/17/22 07:55] montelukast 10 mg tablet (Singulair) 10 mg PO QHS 01/10/22 [History Last Taken Unknown] acetaminophen 650 mg tablet,extended release (Tylenol Arthritis Pain) 650 mg PO Q8H PRN pain 02/04/22 [History Last Taken Unknown] aluminum-mag hydroxide-simethicone 400 mg-400 mg-40 mg/5 mL oral susp (Mylanta Maximum Strength) 30 ml PO TID PRN Indigestion 02/04/22 [History Last Taken Unknown] guaifenesin 600 mg tablet, extended release 12 hr (Mucinex) 600 mg PO Q12H PRN Congestion 02/04/22 [History Last Taken Unknown] omega-3 fatty acids 1,000 mg capsule 2,000 mg PO BID 02/04/22 [History Last Taken Unknown] dulaglutide 4.5 mg/0.5 mL subcutaneous pen injector (Trulicity) 4.5 mg subcut FR 07/31/22 [History Last Taken Unknown] fluticasone propionate 115 mcg-salmeterol 21 mcg/actuation HFA inhaler (Advair HFA) 2 puff inhalation BID 07/31/22 [History Last Taken Unknown] levothyroxine 175 mcg tablet 200 mcg PO DAILY 07/31/22 [History Last Taken 09/17/22 07:55] melatonin 10 mg tablet 10 mg PO HS 07/31/22 [History Last Taken Unknown] Allergy/AdvReac Type Severity Reaction Status Date / Time No Known Allergies Allergy Verified 09/17/22 11:53 Surgical History History of coronary artery stent placement (01/18/21) History of thyroidectomy Social History Smoking Status: Former smoker how long ago did patient quit smokin years ago alcohol intake: never substance use type: does not use caffeine: Yes Type: carbonated beverages ROS Constitutional Constitutional: Reports fatigue and malaise; Denies chills or frequent falls Eyes Eyes: Reports acute decrease in peripheral vision; Denies change in vision, double vision or loss of vision ENT HEENT: Reports dizziness; Denies bleeding gums Cardiovascular Cardiovascular: Reports as per HPI Respiratory/Chest Respiratory/Chest: Denies cough, shortness of breath at rest or shortness of breath with exertion Gastrointestinal Gastrointestinal: Reports other Details: Some lLUQ pain that is not new ; Denies bloating or heartburn Musculoskeletal Musculoskeletal: Reports arthralgias Vital Signs Vital Signs Vital Signs: 09/17/2310:55 09/17/2310:55 Temperature 97.6 F L Temperature Source Temporal Pulse Rate 80 Respiratory Rate 16 Respiratory Pattern Normal Blood Pressure 136/83 H Blood Pressure Mean 100 Blood Pressure Source Monitor Blood Pressure Position Sitting Blood Pressure Location Right Forearm Pulse Ox 95 Oxygen Delivery Method Room Air Weight Weight: 324 lb 4.8 oz Body Mass Index (BMI) 42.7 Physical Exam Const alert, oriented x3 and no apparent distress General Appearance: cooperative, comfortable and well kempt Exam Limitations: no limitations HEENT normocephalic, head/scalp atraumatic, hearing grossly normal bilaterally and moist oral mucous membranes Eyes PERRL, EOMs intact bilaterally and conjunctivae normal Neck no lymphadenopathy, supple and no JVD Resp normal respiratory effort, no retractions, no use of accessory muscles and clear to auscultation bilaterally Cardio regular rate, regular rhythm, S1 normal heart sound, S2 normal heart sound and no murmurs GI normal to inspection, nondistended, normoactive bowel sounds, soft to palpation and non-tender Extremity normal to inspection, full ROM and no clubbing, cyanosis or edema Skin no rashes or lesions noted Neuro oriented x3 and CN's II-XII intact bilaterally Sensorium / Orientation: awake and alert Psych affect normal Results Lab / Micro Data Labs: Laboratory Results - last 24 hr 09/17/22 11:45: POC Glucose 148 H Assessment & Plan Assessment/Plan (1) Personal history of colonic polyps: PLAN: He will undergo colonoscopy. He was explained alternatives, risk, benefits including outstanding bleeding, infection, sepsis, perforation, need for emergent . He will have an ASA of 3. I have examined the patient and the H&P has been reviewed. There are no clinical changes since date of exam.
[2023-11-06 07:16] LABS: Bedside Glucose 165 mg/dL (74-106)
[2023-11-06 08:11] VITALS: BP 111/67; BP 115/71; PULSE 76; RESP 18; TEMP 36.4; O2SAT 96
[2023-11-06 08:15] VITALS: BP 111/67; BP 115/74; PULSE 79; RESP 18; O2SAT 96
--- NOTE | 2023-11-06 08:15 | OP.COLON_ITS ---
Patient Name: Derrell Naranjo Procedure Date: 11/06/2023 7:14 AM Date of : 1965 Age: 58 Procedure: Colonoscopy Indications: High risk colon cancer surveillance: Personal history of colonic polyps Providers: Mata Pastor DO Medicines: Monitored Anesthesia Care Patient Profile: This is a 58 year old male. Refer to note in patient chart for documentation of history and physical. Last Colonoscopy: 1 year ago. Complications: No immediate complications. Procedure: Pre-Anesthesia Assessment: - Prior to the procedure, a History and Physical was performed, and patient medications and allergies were reviewed. The patient is competent. The risks and benefits of the procedure and the sedation options and risks were discussed with the patient. All questions were answered and informed consent was obtained. Patient identification and proposed procedure were verified by the physician in the pre-procedure area. Mental Status Examination: alert and oriented. Airway Examination: normal oropharyngeal airway and neck mobility. Respiratory Examination: clear to auscultation. CV Examination: normal. Prophylactic Antibiotics: The patient does not require prophylactic antibiotics. Prior Anticoagulants: The patient has taken no anticoagulant or antiplatelet agents. ASA Grade Assessment: III - A patient with severe systemic disease. After reviewing the risks and benefits, the patient was deemed in satisfactory condition to undergo the procedure. The anesthesia plan was to use monitored anesthesia care (MAC). Immediately prior to administration of medications, the patient was re-assessed for adequacy to receive sedatives. The heart rate, respiratory rate, oxygen saturations, blood pressure, adequacy of pulmonary ventilation, and response to care were monitored throughout the procedure. The physical status of the patient was re-assessed after the procedure. After I obtained informed consent, the scope was passed under direct vision. Throughout the procedure, the patient's blood pressure, pulse, and oxygen saturations were monitored continuously. The Colonoscope was introduced through the anus and advanced to the ascending colon. The colonoscopy was performed without difficulty. The patient tolerated the procedure well. The quality of the bowel preparation was poor. Anatomical landmarks were photographed. Scope In: 7:24:07 AM Scope Withdrawal Time 0 hours 29 minutes 26 seconds Scope Out: 8:04:46 AM Total Procedure Duration Time 0 hours 40 minutes 39 seconds Findings: The perianal and digital rectal examinations were normal. Many sessile polyps were found in the sigmoid colon, hepatic flexure and ascending colon. The polyps were 1 to 2 mm in size. These polyps were removed with a hot snare. Resection and retrieval were complete. Verification of patient identification for the specimen was done. Estimated blood loss was minimal. Multiple sessile polyps were found in the sigmoid colon and transverse colon. The polyps were 4 mm in size. These polyps were removed with a jumbo cold forceps. Resection and retrieval were complete. Verification of patient identification for the specimen was done. Estimated blood loss was minimal. A large amount of stool was found in the rectum, in the recto-sigmoid colon, in the transverse colon, at the hepatic flexure, in the ascending colon and in the cecum. Small and large-mouthed diverticula were found in the recto-sigmoid colon and sigmoid colon. Impression: - Preparation of the colon was poor. - Many 1 to 2 mm polyps in the sigmoid colon, at the hepatic flexure and in the ascending colon, removed with a hot snare. Resected and retrieved. - Multiple 4 mm polyps in the sigmoid colon and in the transverse colon, removed with a jumbo cold forceps. Resected and retrieved. - Stool in the rectum, in the recto-sigmoid colon, in the transverse colon, at the hepatic flexure, in the ascending colon and in the cecum. - Diverticulosis in the recto-sigmoid colon and in the sigmoid colon. Recommendation: - Discharge patient to home. - Resume previous diet. - Continue present medications. - Await pathology results. - Repeat colonoscopy in 6 months for surveillance of multiple polyps. Procedure Code(s): --- Professional --- 43329, 52, Colonoscopy, flexible; with removal of tumor(s), polyp(s), or other lesion(s) by snare technique 93667, 59,52, Colonoscopy, flexible; with biopsy, single or multiple CPT copyright 2021 [employer]. All rights reserved. The codes documented in this report are preliminary and upon division chair review may be revised to meet current compliance requirements. Mata Pastor DO 11/06/2023 8:14:47 AM This report has been signed electronically. Number of Addenda: 0 Note Initiated On: 11/06/2023 7:14 AM
--- NOTE | 2023-11-06 08:15 | OP.CCLET_ITS ---
11/06/2023 Radha Barajas Re : Colonoscopy procedure for Derrell Naranjo Dear Karl This procedure was performed on October. My impressions and recommendations are as follows: Impressions : - Preparation of the colon was poor. - Many 1 to 2 mm polyps in the sigmoid colon, at the hepatic flexure and in the ascending colon, removed with a hot snare. Resected and retrieved. - Multiple 4 mm polyps in the sigmoid colon and in the transverse colon, removed with a jumbo cold forceps. Resected and retrieved. - Stool in the rectum, in the recto-sigmoid colon, in the transverse colon, at the hepatic flexure, in the ascending colon and in the cecum. - Diverticulosis in the recto-sigmoid colon and in the sigmoid colon. Recommendations : - Discharge patient to home. - Resume previous diet. - Continue present medications. - Await pathology results. - Repeat colonoscopy in 6 months for surveillance of multiple polyps. My findings are described in the full procedure note, which is enclosed. If I can be of further assistance, please feel free to contact me at . Sincerely, Mata Pastor DO 11/06/2023 8:14:47 AM This report has been signed electronically.
[2023-11-06 08:20] VITALS: BP 111/67; BP 125/64; PULSE 77; RESP 18; O2SAT 97
[2023-11-06 08:25] VITALS: BP 111/67; BP 124/73; PULSE 76; RESP 18; TEMP 36.6; O2SAT 100
[2023-11-06 08:32] VITALS: BP 111/67
== END 2023-11-06 08:46 | disposition home or self-care (01) ==
LOC: EN 05:56 → AC 05:58
PROVIDERS: PCP Nurse Practitioner Adult Health; Referring Provider Nurse Practitioner Adult Health; Visit Provider Internal Medicine Gastroenterology
PROC: 0DJD8ZZ Inspection of Lower Intestinal Tract, Via Natural or Artificial Opening Endoscopic (ICD-10-PCS; CPT 45378; principal; 2023-11-06 06:55)
DX: D12.3 Benign neoplasm of transverse colon (principal); J44.9 Chronic obstructive pulmonary disease, unspecified; E66.01 Morbid (severe) obesity due to excess calories; E11.9 Type 2 diabetes mellitus without complications; K57.30 Diverticulosis of large intestine without perforation or abscess without bleeding; Z87.891 Personal history of nicotine dependence; I10 Essential (primary) hypertension; Z86.010 Personal history of colon polyps; I25.10 Atherosclerotic heart disease of native coronary artery without angina pectoris; Z79.51 Long term (current) use of inhaled steroids; Z95.5 Presence of coronary angioplasty implant and graft; Z79.84 Long term (current) use of oral hypoglycemic drugs; Z79.899 Other long term (current) drug therapy; E89.0 Postprocedural hypothyroidism; Z79.890 Hormone replacement therapy
CPT/HCPCS: 45385; 45380; 82962; 88305; J7120; J2405

== ENCOUNTER 2023-11-18 09:47 | Emergency (ER) | payer MEDICARE, MEDICAID, SELFPAY ==
[2023-11-18] VITALS (9 sets, daily range): BP systolic 76–128; BP diastolic 51–87; PULSE 35–140; RESP 12–20; TEMP 36.1–37.1; O2SAT 96–99; BMI 43.4
--- NOTE | 2023-11-18 10:15 | EKG12_ITS ---
Test Reason : WEAKNESS Blood Pressure : / mmHG Vent. Rate : 108 BPM Atrial Rate : 108 BPM P-R Int : 196 ms QRS Dur : 150 ms QT Int : 338 ms P-R-T Axes : 000 077 -87 degrees QTc Int : 452 ms Sinus tachycardia with Premature ventricular complexes or Fusion complexes Abnormal ECG Confirmed by ETHAN HODGES, PARK ([id number]), web content editor ELODIA FARRAR ([id number]) on 11/20/2023 6:26:01 AM Referred By: Confirmed By:JODY LONG MD
--- NOTE | 2023-11-18 10:33 | EDS_ITS ---
HPI History of Present Illness Chief Complaint: Weakness Informant: patient and EMS Narrative Narrative: 58-year-old male multiple medical problems presenting to the emergency department chief complaint of lightheadedness. Patient states symptoms have been ongoing for the past several weeks. About 2 weeks ago he underwent colonoscopy and did well. He states that yesterday and this morning he had more lightheadedness than normal. He denies chest pain. He states that breathing is off. He states he is not breathing fast. He does not have a sensation of shortness of breath but at times feels the need to take a deep breath. He states he has a history of coronary artery disease having had a stent placed here and was transferred to [facility] for doing that (as he points to the monitor). He states that he has not seen cardiology in over a year. From what I can see in the computer he was transferred to [facility] after his cardiac cath for nonsustained V. tach and electrophysiologic study medical therapy was recommended. He has had Holter monitor that showed significant amount of ectopy/NSVT/ventricular couplets. [facility] Medical History Lives in assisted living facility Wears glasses Wears dentures Depression Low iron Fatty liver Syncope Dietary restriction CPAP (continuous positive airway pressure) dependence Shortness of breath on exertion History of edema History of echocardiogram Cardiology follow-up encounter Tumor Atherosclerosis of coronary artery of [place] heart without angina pectoris Kidney stones COPD (chronic obstructive pulmonary disease) Former smoker Irregular heart beat NSVT (nonsustained ventricular tachycardia) Diabetes Asthma Hypothyroidism Hypertension Home Medications ?Medication ?Instructions ?Recorded ?Last Taken ?Type furosemide 40 mg tablet 40 mg PO BID@1000,1800 04/23/19 11/18/23 Rx potassium chloride 20 mEq 20 meq PO DAILYCM 04/23/19 11/18/23 Rx tablet,extended release(part/cryst) metformin 1,000 mg tablet 1,000 mg PO BID DM 01/18/21 11/18/23 History sennosides 8.6 mg-docusate sodium 2 tab PO QHS constipation 02/05/21 Unknown History 50 mg tablet (Senna Plus) sotalol 120 mg tablet 120 mg PO BID heart rate 02/05/21 11/18/23 History tamsulosin 0.4 mg capsule 0.4 mg PO QHS prostate 02/05/21 11/17/23 History albuterol sulfate 90 mcg/actuation 2 puff inhalation Q4H PRN 02/11/21 Unknown History aerosol inhaler Shortness Of Breath Or Wheezing duloxetine 60 mg capsule,delayed 60 mg PO BID DEPRESSION 05/22/21 11/18/23 History release metoprolol tartrate 25 mg tablet 12.5 mg PO BID 10/02/21 11/18/23 History montelukast 10 mg tablet 10 mg PO QHS 01/10/22 11/17/23 History (Singulair) acetaminophen 650 mg 650 mg PO Q8H PRN pain 02/04/22 Unknown History tablet,extended release (Tylenol Arthritis Pain) aluminum-mag hydroxide-simethicone 30 ml PO TID PRN Indigestion 02/04/22 11/18/23 History 400 mg-400 mg-40 mg/5 mL oral susp (Mylanta Maximum Strength) guaifenesin 600 mg tablet, 600 mg PO Q12H PRN Congestion 02/04/22 11/18/23 Hi story extended release 12 hr (Mucinex) omega-3 fatty acids 1,000 mg 2,000 mg PO BID 02/04/22 11/18/23 History capsule fluticasone propionate 115 2 puff inhalation BID 07/31/22 11/18/23 History mcg-salmeterol 21 mcg/actuation HFA inhaler (Advair HFA) melatonin 10 mg tablet 10 mg PO HS 07/31/22 11/17/23 History artifi.tears(hypromellose)(PF) 1.7 1 drp ophthalmic (eye) Q6H PRN dry 11/25/22 Unknown History % eye drops with applicator eyes blood sugar diagnostic 11/25/22 Unknown History sodium chloride 0.65 % nasal spray 2 spray intranasal Q4H PRN dry 11/25/22 U nknown History aerosol (Deep Sea Nasal) nares omeprazole 20 mg capsule,delayed 20 mg PO DAILY 10/22/23 11/18/23 History release semaglutide 2 mg/dose (8 mg/3 mL) 2 mg subcut TH 10/22/23 11/13/23 History subcutaneous pen injector (Ozempic) trazodone 50 mg tablet 25 mg PO QHS 11/05/23 11/17/23 History atorvastatin 80 mg tablet 80 mg PO DAILY 11/18/23 11/18/23 History insulin glargine 100 unit/mL (3 38 unit subcut QPM 11/18/23 11/17/23 History mL) subcutaneous pen (Lantus Solostar U-100 Insulin) levothyroxine 200 mcg tablet 200 mcg PO DAILY 11/18/23 11/17/23 History lisinopril 2.5 mg tablet 2.5 mg PO DAILY 11/18/23 11/18/23 History Allergy/AdvReac Type Severity Reaction Status Date / Time No Known Allergies Allergy Verified 11/18/23 09:48 Family History Unknown Colon polyps Surgical History Hx of colonoscopy History of coronary artery stent placement (01/18/21) History of thyroidectomy Social History household members: other details: Assisted living housing: assisted living facility current occupational status: disabled Smoking Status: Former smoker how long ago did patient quit smokin years ago alcohol intake: never substance use type: does not use caffeine: Yes Type: carbonated beverages ROS ROS ED ROS Narrative Lightheadedness Constitutional Constitutional ED: Denies chills or weight loss Eyes Eyes: Denies blurry vision, change in vision or diplopia ENT ENT ED: Denies ear pain, rhinorrhea or sore throat Cardiovascular Cardiovascular: Denies chest pain, orthopnea, palpitations or racing heartbeat Respiratory/Chest Respiratory/Chest: Denies cough, dyspnea or orthopnea Gastrointestinal Gastrointestinal: Denies abdominal pain, diarrhea, nausea or vomiting Genitourinary Genitourinary ED: Denies dysuria, hematuria or urinary frequency Musculoskeletal Musculoskeletal: Denies arthralgias or myalgias Integumentary Denies abscess or rash Neurologic Neurologic: Denies headache(s) or weakness Psychiatric Psychiatric: Denies anxiety, depression, suicidal ideation or suicidal thoughts Endocrine Endocrinology: Denies polydipsia, polyphagia or polyuria Allergic/Immunologic Allergic/Immunologic ED: Denies mouth swelling, tongue swelling or urticaria EXAM Physical Exam Const Vital Signs: 11/18/23 09:48 11/18/23 09:49 11/18/23 10:46 Temperature 96.9 F L Temperature Source Temporal Pulse Rate 56 L 35 L Pulse Rate [Lying] 95 Pulse Rate [Sitting (for 1 minute prior to obtaining)] 104 H Pulse Rate [Standing (for 1 minute prior to obtaining)] 64 Respiratory Rate 12 Blood Pressure 110/56 L Blood Pressure [Lying] 115/73 Blood Pressure [Sitting (for 1 minute prior to obtaining)] 109/59 L Blood Pressure [Standing (for 1 minute prior to obtaining)] 76/51 L Blood Pressure Mean 74 Blood Pressure Mean [Lying] 87 Blood Pressure Mean [Sitting (for 1 minute prior to obtaining)] 75 Blood Pressure Mean [Standing (for 1 minute prior to obtaining)] 59 Pulse Ox 97 Oxygen Delivery Method Room Air 11/18/23 11:16 11/18/23 13:00 Temperature Temperature Source Pulse Rate 140 H Pulse Rate [Lying] Pulse Rate [Sitting (for 1 minute prior to obtaining)] Pulse Rate [Standing (for 1 minute prior to obtaining)] Respiratory Rate 15 Blood Pressure 103/65 108/60 Blood Pressure [Lying] Blood Pressure [Sitting (for 1 minute prior to obtaining)] Blood Pressure [Standing (for 1 minute prior to obtaining)] Blood Pressure Mean 77 76 Blood Pressure Mean [Lying] Blood Pressure Mean [Sitting (for 1 minute prior to obtaining)] Blood Pressure Mean [Standing (for 1 minute prior to obtaining)] Pulse Ox 96 Oxygen Delivery Method Room Air Positive well nourished, well developed and obese General Appearance ED: well developed Nutritional Appearance: obese HEENT Reports normocephalic, head/scalp atraumatic and moist mucous membranes Eyes PERRL and EOMs intact bilaterally Neck no lymphadenopathy, supple and no JVD Resp normal respiratory effort and clear to auscultation bilaterally Cardio regular rate, regular rhythm and no murmurs Rhythm: abnormal rhythm other (Palpation of his heart rate appears in a bigeminy like fashion.) GI normal to inspection, nondistended, normoactive bowel sounds and non-tender Palpation: soft Back/Spine no CVA tenderness and normal ROM Extremity Extremity Narrative: Chronic venous stasis changes bilaterally with a woody like skin appearance and mild edema Neuro oriented x3 and CN's II-XII intact bilaterally Sensorium / Orientation: alert Motor Exam: strength 5/5 throughout Psych mental status grossly normal Mood & Affect: Negative for depressed or tearful Skin no rashes or lesions noted and no wounds MDM MDM MDM Narrative Medical decision making narrative: Differential diagnosis includes but not limited to ACS, electrolyte abnormality, electrophysiologic abnormalities such as reentry rhythm versus nonsustained A. tach versus other, anemia, dehydration. Patient's EKG shows a sinus rhythm followed by a couplet of ventricular beats and sinus and repeating. White count 11.5 hemoglobin 12 platelet count of 169. INR 1.2 PTT 31.1 sodium 131 potassium 4.7 magnesium is normal at 1.9 glucose 192 normal creatinine 0.89. Initial troponin is 10. My independent interpretation of the single view chest x-ray is chronic scarring at the left base. It is noted that the patient is orthostatic when he stands his blood pressure went to about 76 systolic and he was very diaphoretic. Patient states if I can just keep moving and power through it I would be okay. No chest pain. I asked local cardiology to review the EKG here. I am not sure if this may require a formal EP study or if increasing his sotalol would be reasonable option. Recommendation is to get EP input. We went ahead and gave 2 g of magnesium while we worked on disposition. About 20 minutes into the magnesium run he went into a normal sinus rhythm for about 5 minutes then went back to the frequent ventricular beats. As mentioned above the patient had prior EP evaluation in [facility]. They do not have readily available beds and may be up to 3 days. I spoke with the patient who states that wherever he can be transferred to would be acceptable. I spoke with [facility] transfer line and then medicine and then cardiology at [facility]. Patient has been accepted. History & Record Review Discussion w/independent historian: Patient Additional record(s) reviewed:: Prior inpatient record, Prior outpatient record, Prior ED visit and Prior labs Lab Data Attestation: I reviewed the patient's lab results. Labs: Laboratory Results - last 24 hr 11/18/23 10:30 WBC 11.5 H RBC 5.09 Hgb 12.0 L Hct 40.1 MCV 78.8 L MCH 23.6 L MCHC 29.9 L RDW Std Deviation 48.8 H RDW Coeff of Jovany 17.1 H Plt Count 169 MPV 10.2 Immature Gran % (Auto) 0.300 Neut % (Auto) 73.2 H Lymph % (Auto) 16.8 L [place] % (Auto) 5.9 Eos % (Auto) 3.2 Baso % (Auto) 0.6 Absolute Neuts (auto) 8.4 H Absolute Lymphs (auto) 1.93 Nucleated RBC % 0 PT 14.7 INR 1.2 APTT 31.1 Sodium 131 L Potassium 4.7 Chloride 98 Carbon Dioxide 27.0 Anion Gap 6 BUN 13 Creatinine 0.89 Est GFR (MDRD) Af Amer 113 Est GFR (MDRD) Non-Af 94 BUN/Creatinine Ratio 14.7 Glucose 192 H Calcium 8.8 Magnesium 1.9 Total Bilirubin 0.70 AST 57 H ALT 44 Alkaline Phosphatase 263 H Troponin I High Sens 10 Total Protein 7.8 Albumin 3.2 Globulin 4.6 H Albumin/Globulin Ratio 0.7 L Radiography Diagnostic Testing: Clinical Impression(s) from Imaging Studies Chest X-Ray 11/18/23 10:35 IMPRESSION: Stable elevation of the left hemidiaphragm with increased markings at the left lung base suggestive of scarring. Mild increased markings at the right lung base suggests mild scarring. There has been no change. Electronically Signed: Hernando Cook MD at 11:03 EDT , EKG Initial EKG: Attestation: I personally reviewed and interpreted this EKG as follows: Comments: Sinus rhythm with ventricular ectopy and a couplet like fashion Management Discussion w/another healthcare provider: Feed Research Aide (Dr. Rodriguez ([facility] Cardiology) [facility] Medicine and Cardiology inclusion manager) Discharge Plan Triage Chief Complaint: Weakness ED Provider: Honorio Morris Dx/Rx/DC Orders Prescriptions: No Action sennosides-docusate sodium [Senna Plus] 8.6-50 mg tablet 2 tab PO QHS sotalol 120 mg tablet 120 mg PO BID tamsulosin 0.4 mg capsule 0.4 mg PO QHS acetaminophen [Tylenol Arthritis Pain] 650 mg tablet extended release 650 mg PO Q8H PRN (Reason: pain) alum-mag hydroxide-simeth [Mylanta Maximum Strength] 400-400-40 mg/5 mL suspension 30 ml PO TID PRN (Reason: Indigestion) guaifenesin [Mucinex] 600 mg tablet extended release 12hr 600 mg PO Q12H PRN (Reason: Congestion) omega-3 fatty acids 1,000 mg capsule 2,000 mg PO BID metoprolol tartrate 25 mg tablet 12.5 mg PO BID montelukast [Singulair] 10 mg tablet 10 mg PO QHS Advair HFA 115-21 mcg/actuation HFA aerosol inhaler 2 puff inhalation BID melatonin 10 mg tablet 10 mg PO HS (DME) blood sugar diagnostic Kit See Rx Instructions .Route Rx Instructions: As directed Deep Sea Nasal 0.65 % aerosol,spray 2 spray intranasal Q4H PRN (Reason: dry nares) artifi.tears(hypromellose)(PF) 1.7 % drops with applicator 1 drp ophthalmic (eye) Q6H PRN (Reason: dry eyes) omeprazole 20 mg capsule,delayed release(DR/EC) 20 mg PO DAILY Ozempic 2 mg/dose (8 mg/3 mL) pen injector 2 mg subcut TH Patient Comments: PT TOOK HALF DOSE ON 11/13/23 BECAUSE HE HAD TO MISS THE WEEK BEFORE. furosemide 40 MG tablet 40 mg PO BID@1000,1800 0RF potassium chloride 20 MEQ tablet 20 meq PO DAILYCM 0RF metformin 1,000 mg tablet 1,000 mg PO BID duloxetine 60 mg capsule,delayed release(DR/EC) 60 mg PO BID albuterol sulfate 90 mcg/actuation HFA aerosol inhaler 2 puff INHALATION Q4H PRN (Reason: Shortness Of Breath Or Wheezing) trazodone 50 mg tablet 25 mg PO QHS atorvastatin 80 mg tablet 80 mg PO DAILY levothyroxine 200 mcg tablet 200 mcg PO DAILY lisinopril 2.5 mg tablet 2.5 mg PO DAILY insulin glargine [Lantus Solostar U-100 Insulin] 100 unit/mL (3 mL) insulin pen 38 unit subcut QPM Primary Care Provider: Radha Barajas CLINICAL BIOSTATISTICIAN Referrals: Radha Barajas CLINICAL BIOSTATISTICIAN, CLINICAL BIOSTATISTICIAN-C [Primary Care Provider] - Print Language: Palestinian
--- NOTE | 2023-11-18 10:35 | RAD_ITS ---
STUDY: X-RAY CHEST REASON FOR EXAM: Male, 58 years old. cad TECHNIQUE: Single AP portable view of the chest. COMPARISON: Comparison is made with prior study dated September 13, 2021. FINDINGS: EKG electrodes are seen. Stable elevation of the left hemidiaphragm with increased markings at the left lung base suggestive of left basilar scarring. This is unchanged. Mild degree of scarring at the right lung base as well. Blunting of the left costophrenic angle. Normal size heart. Normal mediastinum and kalia. Normal visualized pulmonary arteries. Normal visualized aortic arch and descending thoracic aorta. Normal visualized thoracic spine. Normal visualized ribs, clavicles, and shoulders. There is no demonstrated abnormality of the visualized soft tissue structures of the upper abdomen. RAD/Chest 1 View (Portable) IMPRESSION: Stable elevation of the left hemidiaphragm with increased markings at the left lung base suggestive of scarring. Mild increased markings at the right lung base suggests mild scarring. There has been no change. Electronically Signed: Hernando Cook MD at 11:03 EDT ,
[2023-11-18 10:41] LABS: Absolute Lymphocyte Count 1.93 X10^3/uL (0.83-4.51); Absolute Neutrophil Count 8.4 X10^3/uL (2.0-7.7); Basophil# 0.07 X10^3/uL; Basophil% 0.6 % (0-1); Eosinophil# 0.37 X10^3/uL; Eosinophils% 3.2 % (0-5); Hematocrit 40.1 % (40-54); Lymphocyte # 1.93 X10^3/ul (0.83-4.51); Lymphocyte % 16.8 % (19-41); Mean Corp Hgb Conc 29.9 g/dL (32-36); Mean Corpuscular Hgb 23.6 pg (27.0-32.0); Mean Corpuscular Volume 78.8 fL (80-94); Mean Platelet Vol. 10.2 fl (6.2-12.0); Monocyte# 0.68 X10^3/uL; Monocyte% 5.9 % (0-10); NRBC Flagged by Analyzer 0 % (0-5); Neutrophil # 8.39 X10^3/uL (2.7-7.7); Neutrophil % 73.2 % (47-70); Platelet Count 169 K/mm3 (150-450); RBC Distribution Width CV 17.1 % (11.6-14.6); RBC Distribution Width SD 48.8 fl (35.1-43.9); Red Blood Count 5.09 M/mm3 (4.6-6.2); White Blood Count 11.5 K/mm3 (4.4-11.0)
[2023-11-18 11:01] LABS: International Normalized Ratio 1.2; Partial Thromboplast Time 31.1 Seconds (24.1-36.2); Prothrombin Time (Protime)PT. 14.7 SECONDS (11.7-14.9)
--- NOTE | 2023-11-18 11:05 | ED.RN ---
Dr Morris notified of orthostatic vital sign results.
[2023-11-18 11:11] LABS: ALB/GLOB Ratio 0.7 RATIO (0.9-2.4); AST(SGOT) 57 U/L (15-37); Alanine Aminotransfer ALT/SGPT 44 U/L (16-61); Albumin, Serum 3.2 g/dL (3.2-5.0); Alkaline Phosphatase 263 U/L (45-117); Anion Gap 6 (5-15); BUN 13 mg/dL (7-18); BUN/Creat Ratio 14.7 RATIO (10-20); Calcium,Total 8.8 mg/dL (8.5-10.1); Chloride 98 mmol/L (98-107); Creatinine, Serum 0.89 mg/dL (0.70-1.30); EST Glomerular Filtration Rate 94 mL/min (>60); Est Glom Filt Rate - Afr Amer 113 mL/min (>60); Globulin 4.6 g/dL (2.2-4.2); Glucose 192 mg/dL (74-106); Magnesium 1.9 mg/dL (1.6-2.6); Potassium 4.7 mmol/L (3.5-5.1); Protein, Total 7.8 g/dL (6.4-8.2); Sodium Level 131 mmol/L (136-145); Troponin-I HS 10 pg/mL (3.0-78.0)
[2023-11-18] MEDS: Magnesium Sulfate 2 GM in Dextrose 5%-Water (100mL Bag) 100 ML IV (13:48)
--- NOTE | 2023-11-18 13:58 | NURSING ---
CALLED [facility] FOR TRANSFER
--- NOTE | 2023-11-18 14:02 | NURSING ---
FAXED FACESHEET TO [facility] CALLED RADIOLOGY TO TRANSMIT RAD
--- NOTE | 2023-11-18 14:16 | EKG12_ITS ---
Test Reason : REPEAT Blood Pressure : / mmHG Vent. Rate : 104 BPM Atrial Rate : 078 BPM P-R Int : 188 ms QRS Dur : 090 ms QT Int : 376 ms P-R-T Axes : 048 003 038 degrees QTc Int : 494 ms Sinus rhythm with frequent and consecutive Premature ventricular complexes Possible Inferior infarct , age undetermined Abnormal ECG Confirmed by ETHAN HODGES, PARK ([id number]), editor sound ELODIA FARRAR ([id number]) on 11/20/2023 6:27:26 AM Referred By: Confirmed By:JODY LONG MD
--- NOTE | 2023-11-18 14:53 | ED.RN ---
Updated Arturo of 13 run of Ruthie
--- NOTE | 2023-11-18 15:02 | NURSING ---
[facility] ACCEPTED. WAITING ON ACCEPTING INFO
--- NOTE | 2023-11-18 15:48 | NURSING ---
ACCEPTING DR IS DR SINGH
--- NOTE | 2023-11-18 15:56 | NURSING ---
[facility] BED 4 REPORT [id number]
[2023-11-18 18:53] LABS: Bedside Glucose 154 mg/dL (74-106)
== END 2023-11-18 20:20 | disposition short-term general hospital (02) ==
LOC: ED 10:38
PROVIDERS: Emergency Provider Emergency Medicine; PCP Nurse Practitioner Adult Health; Visit Provider Emergency Medicine
DX: R53.1 Weakness (principal); J44.9 Chronic obstructive pulmonary disease, unspecified; E11.9 Type 2 diabetes mellitus without complications; I25.10 Atherosclerotic heart disease of native coronary artery without angina pectoris; F32.A Depression, unspecified; E03.9 Hypothyroidism, unspecified; I10 Essential (primary) hypertension; E66.9 Obesity, unspecified; Z79.51 Long term (current) use of inhaled steroids; Z79.899 Other long term (current) drug therapy; Z79.84 Long term (current) use of oral hypoglycemic drugs; Z95.5 Presence of coronary angioplasty implant and graft; Z87.891 Personal history of nicotine dependence
CPT/HCPCS: 71045; 80053; 82962; 83735; 84484; 85025; 85610; 85730; 93005; 96365; 96366; 99285; A4216

== ENCOUNTER 2023-12-14 19:15 | Emergency (ER) | payer MEDICARE, MEDICAID, SELFPAY ==
[2023-12-14 19:16] VITALS: BP 142/74; PULSE 85; RESP 16; TEMP 36.7; O2SAT 95; BMI 45.8
--- NOTE | 2023-12-14 19:44 | EKG12_ITS ---
Test Reason : DYSRHYTHMIA Blood Pressure : / mmHG Vent. Rate : 083 BPM Atrial Rate : 083 BPM P-R Int : 196 ms QRS Dur : 092 ms QT Int : 358 ms P-R-T Axes : 015 -01 028 degrees QTc Int : 420 ms Normal sinus rhythm Inferior infarct (cited on or before 18-NOV-2023) Abnormal ECG Confirmed by Michael Allred ([id number]), manager editorial SHIELA ALBERTO ([id number]) on 12/16/2023 8:01:23 AM Referred By: Confirmed By:Michael Allred
--- NOTE | 2023-12-14 19:44 | ED.VIS.CHEST ---
HPI History of Present Illness Chief Complaint: Edema Detail of Chief Complaint: Worsening bilateral lower extremity edema over the last several days. Informant: patient Onset/Context/Timing Onset: Days Activity at onset: gradual Timing: Continuous Current Severity: Mild Maximum Severity: Mild Worsened By: Nothing Relieved By: Nothing Narrative Narrative: 38-year-old male history of anemia, diabetes, CHF, CAD with cardiac stents. His most recent echo here was 2021 with a EF of 55%. Since he was told to take his Lasix as needed by his nurse practitioner. When his leg started swelling he began taking it last several days. Denies any chest pain. Denies any fever. Denies any shortness of breath. Just says his legs are more swollen than normal. Prior Similar Symptoms: Yes Recent Illness/Hospitalization: Yes CVD Risk Factors: Positive for Diabetes PE Risk Factors: Positive for Recent Immobilization; Negative for Recent Travel/Surgery, Prior DVT or PE or Cancer TAD Risk Factors: Negative for Marfan's Syndrome, Hypertension or Family History [facility] Medical History Lives in assisted living facility Wears glasses Wears dentures Depression Low iron Fatty liver Syncope Dietary restriction CPAP (continuous positive airway pressure) dependence Shortness of breath on exertion History of edema History of echocardiogram Cardiology follow-up encounter Tumor Atherosclerosis of coronary artery of [place] heart without angina pectoris Kidney stones COPD (chronic obstructive pulmonary disease) Former smoker Irregular heart beat NSVT (nonsustained ventricular tachycardia) Diabetes Asthma Hypothyroidism Hypertension Home Medications ?Medication ?Instructions ?Recorded ?Last Taken ?Type furosemide 40 mg tablet 40 mg PO BID@1000,1800 04/23/19 11/18/23 Rx potassium chloride 20 mEq 20 meq PO DAILYCM 04/23/19 11/18/23 Rx tablet,extended release(part/cryst) metformin 1,000 mg tablet 1,000 mg PO BID DM 01/18/21 11/18/23 History sennosides 8.6 mg-docusate sodium 2 tab PO QHS constipation 02/05/21 Unknown History 50 mg tablet (Senna Plus) sotalol 120 mg tablet 120 mg PO BID heart rate 02/05/21 11/18/23 History tamsulosin 0.4 mg capsule 0.4 mg PO QHS prostate 02/05/21 11/17/23 History albuterol sulfate 90 mcg/actuation 2 puff inhalation Q4H PRN 02/11/21 Unknown History aerosol inhaler Shortness Of Breath Or Wheezing duloxetine 60 mg capsule,delayed 60 mg PO BID DEPRESSION 05/22/21 11/18/23 History release montelukast 10 mg tablet 10 mg PO QHS 01/10/22 11/17/23 History (Singulair) acetaminophen 650 mg 650 mg PO Q8H PRN pain 02/04/22 Unknown History tablet,extended release (Tylenol Arthritis Pain) aluminum-mag hydroxide-simethicone 30 ml PO TID PRN Indigestion 02/04/22 11/18/23 History 400 mg-400 mg-40 mg/5 mL oral susp (Mylanta Maximum Strength) guaifenesin 600 mg tablet, 600 mg PO Q12H PRN Congestion 02/04/22 11/18/23 History extended release 12 hr (Mucinex) omega-3 fatty acids 1,000 mg 2,000 mg PO BID 02/04/22 11/18/23 History capsule fluticasone propionate 115 2 puff inhalation BID 07/31/22 11/18/23 History mcg-salmeterol 21 mcg/actuation HFA inhaler (Advair HFA) melatonin 10 mg tablet 10 mg PO HS 07/31/22 11/17/23 History artifi.tears(hypromellose)(PF) 1.7 1 drp ophthalmic (eye) Q6H PRN dry 11/25/22 Unknown History % eye drops with applicator eyes blood sugar diagnostic 11/25/22 Unknown History sodium chloride 0.65 % nasal spray 2 spray intranasal Q4H PRN dry 11/25/22 Unknown History aerosol (Deep Sea Nasal) nares omeprazole 20 mg capsule,delayed 20 mg PO DAILY 10/22/23 11/18/23 History release semaglutide 2 mg/dose (8 mg/3 mL) 2 mg subcut TH 10/22/23 11/13/23 History subcutaneous pen injector (Ozempic) trazodone 50 mg tablet 25 mg PO QHS 11/05/23 11/17/23 History atorvastatin 80 mg tablet 80 mg PO DAILY 11/18/23 11/18/23 History insulin glargine 100 unit/mL (3 38 unit subcut QPM 11/18/23 11/17/23 History mL) subcutaneous pen (Lantus Solostar U-100 Insulin) levothyroxine 200 mcg tablet 225 mcg PO DAILY 11/18/23 11/17/23 History lisinopril 2.5 mg tablet 2.5 mg PO DAILY 11/18/23 11/18/23 History metoprolol tartrate 100 mg tablet 100 mg PO BID 12/14/23 Unknown History Allergy/AdvReac Type Severity Reaction Status Date / Time No Known Allergies Allergy Verified 12/14/23 19:18 Family History Unknown Colon polyps Surgical History Hx of colonoscopy History of coronary artery stent placement (01/18/21) History of thyroidectomy Social History household members: other details: Assisted living housing: assisted living facility current occupational status: disabled Smoking Status: Former smoker how long ago did patient quit smokin years ago alcohol intake: never substance use type: does not use caffeine: Yes Type: carbonated beverages ROS ROS ED ROS Narrative Increased lower extremity edema. No chest pain. Review of Systems ROS Unobtainable: Denies due to encephalopathy Constitutional Constitutional ED: Denies chills or fever(s) ENT ENT ED: Denies ear pain Cardiovascular Cardiovascular: Denies as per HPI or chest pain Respiratory/Chest Respiratory/Chest: Denies cough, dyspnea or dyspnea on exertion Gastrointestinal Gastrointestinal: Denies abdominal pain, diarrhea or vomiting Genitourinary Genitourinary ED: Denies dysuria or hematuria Musculoskeletal Musculoskeletal: Denies arthralgias Integumentary Denies abscess Neurologic Neurologic: Denies headache(s) Psychiatric Psychiatric: Denies anxiety Endocrine Endocrinology: Denies cold intolerance Hematologic/Lymphatic Hematologic/Lymphatic: Denies easy bleeding Allergic/Immunologic Allergic/Immunologic ED: Denies mouth swelling, tongue swelling or urticaria EXAM Physical Exam Narrative Exam Narrative: 58-year-old male vital signs are stable afebrile. Pulse ox 95% room air no signs hypoxia. He is in no distress. He is actually standing when I came in the room. H EENT exam unremarkable. Neck nontender no JVD. Lungs clear to auscultation bilaterally. Heart regular rhythm rate about 80 no murmur. Chest wall and ribs nontender. Abdomen soft nontender. Moving all 4 extremities. Normal motor strength. 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 Normal dorsi plantarflexion. 1-2+ pitting edema both lower extremities. Equal symmetrical. Calves are nontender without cords. Neurologically is awake alert no focal motor deficits. Const Vital Signs: 12/14/23 19:16 12/14/23 19:37 12/14/23 19:44 Temperature 98.1 F Temperature Source Oral Pulse Rate 85 Respiratory Rate 16 Respiratory Effort Normal Respiratory Pattern Normal Blood Pressure 142/74 H Blood Pressure Mean 96 Pulse Ox 95 Oxygen Delivery Method Room Air Room Air 12/14/23 20:18 12/14/23 20:30 12/14/23 20:45 Temperature Temperature Source Pulse Rate 85 84 Respiratory Rate 18 18 Respiratory Effort Respiratory Pattern Blood Pressure 119/79 115/74 Blood Pressure Mean 91 86 Pulse Ox 96 Oxygen Delivery Method Positive well nourished and well developed; Negative for cachectic, contractures or unkempt General Appearance ED: well developed and NAD; Negative for unkempt, cachectic, contractures or pallor Nutritional Appearance: Negative for cachectic HEENT Reports moist mucous membranes normocephalic and atraumatic; Negative for trauma or tenderness Eyes PERRL and EOMs intact bilaterally General Eye ED: Negative for pale conjunctiva or scleral icterus Neck no lymphadenopathy, supple and no JVD General: Negative for tenderness Chest Wall inspection of chest normal and palpation of chest normal Resp normal respiratory effort and clear to auscultation bilaterally Effort and Inspection: Negative for respiratory distress Auscultation: Negative for rales, rhonchi or wheezes Cardio regular rate, regular rhythm, S1 normal heart sound, S2 normal heart sound and no murmurs Rate: Negative for bradycardia or tachycardic Rhythm: Negative for abnormal rhythm GI normal to inspection, nondistended, normoactive bowel sounds, soft to palpation, non-tender, non-distended and no masses Back/Spine no CVA tenderness and no thoracic nor lumbar tenderness General Back: Negative for CVA tenderness Cervical Spine: Negative for cervical spine tenderness Extremity Negative for normal to inspection Extremity Narrative: Bilateral lower extremity 1-2+ pitting edema from the knees down. Nontender. General Extremety ED: Yes edema; Negative for pulses abnormal or tenderness General Extremity: edema; Negative for pulses abnormal Neuro oriented x3 and CN's II-XII intact bilaterally Sensorium / Orientation: awake, alert, oriented to person, oriented to place and oriented to time; Negative for confused, lethargic or stuporous Motor Exam: strength 5/5 throughout Psych mental status grossly normal Appearance: Negative for unkempt Attitude: No agitated Mood & Affect: Negative for depressed, anxious or tearful Skin no rashes or lesions noted General Skin Exam: Negative for jaundice or pallor Trauma: Negative for abrasion MDM MDM MDM Narrative Medical decision making narrative: 58-year-old male with bilateral lower extremity edema with a history of CHF. He will undergo cardiac workup. He is not hypoxic. He is really not complaining of any chest pain or shortness of breath. He is already on Lasix and been taking it. Repeat exam patient is doing well at 10 PM. He is in no distress. He said he feels fine. He and I discussed his test results. He will continue on his Lasix 20 a day. He has an appointment to see the cardiology office in a little over a month. I told him to call them to see if and get in sooner. He knows to return if worse. He is comfortable with the plan of being discharged home. History & Record Review Discussion w/independent historian: Patient Additional record(s) reviewed:: Prior inpatient record, Prior outpatient record, Prior ED visit and Prior labs Lab Data Attestation: I reviewed the patient's lab results. Lab results narrative: CBC shows a normal white count 10.8. H&H 12.1 and 39. Platelets 164. Electrolytes show sodium 133. A gap of 5. A normal BUN of 9 and creatinine 0.8. A glucose of 177. Troponin is normal at 10. BNP is only 6.6 Chest x-ray shows bilateral lower lobe vascular congestion consistent with mild pulmonary edema. Labs: Laboratory Results - last 24 hr 12/14/23 19:57 WBC 10.8 RBC 4.80 Hgb 12.1 L Hct 39.7 L MCV 82.7 MCH 25.2 L MCHC 30.5 L RDW Std Deviation 59.3 H RDW Coeff of Jovany 20.0 H Plt Count 164 MPV 10.1 Immature Gran % (Auto) 0.400 Neut % (Auto) 69.2 Lymph % (Auto) 18.1 L Davidson % (Auto) 6.8 Eos % (Auto) 4.9 Baso % (Auto) 0.6 Absolute Neuts (auto) 7.5 Absolute Lymphs (auto) 1.96 Nucleated RBC % 0 Sodium 133 L Potassium 4.2 Chloride 96 L Carbon Dioxide 32.0 Anion Gap 5 BUN 9 Creatinine 0.80 Estim Creat Clear Calc 153.47 Est GFR (MDRD) Af Amer 127 Est GFR (MDRD) Non-Af 105 BUN/Creatinine Ratio 11.2 Glucose 177 H Calcium 9.1 Troponin I High Sens 10 B-Natriuretic Peptide 6.6 Radiography Chest X-Ray - ED: 1 View, Read by ED Physician, Normal, Heart, Mediastinum, Bony Structures, Chronic Changes and - (Bibasilar congestion.) Diagnostic Testing: Clinical Impression(s) from Imaging Studies Chest X-Ray 12/14/23 20:00 IMPRESSION: 1. Vascular congestion without josé luis interstitial edema. 2. Stable LEFT basilar volume loss atelectasis and elevation LEFT hemidiaphragm. 3. Interval increase in interstitial markings at the RIGHT lung base. Early interstitial infiltrate in the RIGHT lower lobe is a consideration Electronically Signed: Renny Herrmann MD at 20:25 EDT , Chest x-ray, portable, single view shows extra congestion in both bases consistent with mild pulmonary edema. Rhythm Strip Rhythm Strip: Sinus Rhythm Rate: 83 Ectopy: None EKG Initial EKG: Attestation: I personally reviewed and interpreted this EKG as follows: Interpretation: Sinus Rhythm and No Acute Injury Pattern Comments: Normal sinus rhythm rate 83 no acute signs of acute IA or ischemia. May be an old inferior IA. Discharge Plan Triage Chief Complaint: Edema ED Provider: Antoine Hahn Dx/Rx/DC Orders Clinical Impression: Bilateral edema of lower extremity, History of diabetes mellitus, History of CHF (congestive heart failure), History of coronary artery disease, History of COPD, History of anemia Instructions: ED Peripheral Edema, Bilateral Prescriptions: No Action sennosides-docusate sodium [Senna Plus] 8.6-50 mg tablet 2 tab PO QHS sotalol 120 mg tablet 120 mg PO BID tamsulosin 0.4 mg capsule 0.4 mg PO QHS acetaminophen [Tylenol Arthritis Pain] 650 mg tablet extended release 650 mg PO Q8H PRN (Reason: pain) alum-mag hydroxide-simeth [Mylanta Maximum Strength] 400-400-40 mg/5 mL suspension 30 ml PO TID PRN (Reason: Indigestion) guaifenesin [Mucinex] 600 mg tablet extended release 12hr 600 mg PO Q12H PRN (Reason: Congestion) omega-3 fatty acids 1,000 mg capsule 2,000 mg PO BID montelukast [Singulair] 10 mg tablet 10 mg PO QHS Advair HFA 115-21 mcg/actuation HFA aerosol inhaler 2 puff inhalation BID melatonin 10 mg tablet 10 mg PO HS (DME) blood sugar diagnostic Kit See Rx Instructions .Route Rx Instructions: As directed Deep Sea Nasal 0.65 % aerosol,spray 2 spray intranasal Q4H PRN (Reason: dry nares) artifi.tears(hypromellose)(PF) 1.7 % drops with applicator 1 drp ophthalmic (eye) Q6H PRN (Reason: dry eyes) omeprazole 20 mg capsule,delayed release(DR/EC) 20 mg PO DAILY Ozempic 2 mg/dose (8 mg/3 mL) pen injector 2 mg subcut TH Patient Comments: PT TOOK HALF DOSE ON 11/13/23 BECAUSE HE HAD TO MISS THE WEEK BEFORE. furosemide 40 MG tablet 40 mg PO BID@1000,1800 0RF potassium chloride 20 MEQ tablet 20 meq PO DAILYCM 0RF metformin 1,000 mg tablet 1,000 mg PO BID duloxetine 60 mg capsule,delayed release(DR/EC) 60 mg PO BID albuterol sulfate 90 mcg/actuation HFA aerosol inhaler 2 puff INHALATION Q4H PRN (Reason: Shortness Of Breath Or Wheezing) trazodone 50 mg tablet 25 mg PO QHS atorvastatin 80 mg tablet 80 mg PO DAILY levothyroxine 200 mcg tablet 225 mcg PO DAILY lisinopril 2.5 mg tablet 2.5 mg PO DAILY insulin glargine [Lantus Solostar U-100 Insulin] 100 unit/mL (3 mL) insulin pen 38 unit subcut QPM metoprolol tartrate 100 mg tablet 100 mg PO BID Primary Care Provider: Radha Barajas BLUE CRABBER Referrals: Radha Barajas BLUE CRABBER, BL[facility]-C [Primary Care Provider] - As soon as possible Activity Restrictions/Additional Instructions: For now take your Lasix 20 mg a day. If the swelling is getting worse increase it to 40 mg a day. Continue to take the 20 mg every day for now. Follow-up with your nurse practitioner Heather Barajas. Call your computer designer office and see if they can move up your appointment to the next 1 to 2 weeks. Return to emergency department if you are feeling worse. Your labs, EKG and chest x-ray today looks good. Print Language: Bangladeshi Disposition Disposition: Home, Self Care
--- NOTE | 2023-12-14 20:00 | RAD_ITS ---
INDICATION: chest pain EXAMINATION/TECHNIQUE: X-RAY - XR Chest 1 View COMPARISON: 528.4 FINDINGS: LIFE-SUPPORT AND LINES: 1. None HEART AND VESSELS: Cardiac silhouette is unchanged, there is vascular congestion. No josé luis interstitial edema. LUNGS AND PLEURAL SPACES: Persistent elevation LEFT hemidiaphragm and LEFT basilar volume loss and atelectasis. There are is an increase in interstitial markings at the RIGHT lung base. MEDIASTINUM AND HILAR REGIONS: No masses adenopathy noted. No areas of calcification. Visualized upper airway is normal in position. BONY ELEMENTS: No acute bony changes noted. RAD/Chest 1 View (Portable) IMPRESSION: 1. Vascular congestion without josé luis interstitial edema. 2. Stable LEFT basilar volume loss atelectasis and elevation LEFT hemidiaphragm. 3. Interval increase in interstitial markings at the RIGHT lung base. Early interstitial infiltrate in the RIGHT lower lobe is a consideration Electronically Signed: Renny Herrmann MD at 20:25 EDT ,
[2023-12-14 20:03] LABS: Absolute Lymphocyte Count 1.96 X10^3/uL (0.83-4.51); Absolute Neutrophil Count 7.5 X10^3/uL (2.0-7.7); Basophil# 0.06 X10^3/uL; Basophil% 0.6 % (0-1); Eosinophil# 0.53 X10^3/uL; Eosinophils% 4.9 % (0-5); Hematocrit 39.7 % (40-54); Hemoglobin 12.1 g/dL (13.0-16.5); Lymphocyte # 1.96 X10^3/ul (0.83-4.51); Lymphocyte % 18.1 % (19-41); Mean Corp Hgb Conc 30.5 g/dL (32-36); Mean Corpuscular Hgb 25.2 pg (27.0-32.0); Mean Corpuscular Volume 82.7 fL (80-94); Mean Platelet Vol. 10.1 fl (6.2-12.0); Monocyte# 0.74 X10^3/uL; Monocyte% 6.8 % (0-10); NRBC Flagged by Analyzer 0 % (0-5); Neutrophil # 7.48 X10^3/uL (2.7-7.7); Neutrophil % 69.2 % (47-70); Platelet Count 164 K/mm3 (150-450); RBC Distribution Width SD 59.3 fl (35.1-43.9); White Blood Count 10.8 K/mm3 (4.4-11.0)
[2023-12-14 20:18] VITALS: PULSE 85; RESP 18; O2SAT 96
[2023-12-14 20:27] LABS: Anion Gap 5 (5-15); BUN 9 mg/dL (7-18); BUN/Creat Ratio 11.2 RATIO (10-20); Calcium,Total 9.1 mg/dL (8.5-10.1); Chloride 96 mmol/L (98-107); EST Glomerular Filtration Rate 105 mL/min (>60); Est Glom Filt Rate - Afr Amer 127 mL/min (>60); Estimated Creatinine Clearance 153.47 ml/min; Glucose 177 mg/dL (74-106); Potassium 4.2 mmol/L (3.5-5.1); Sodium Level 133 mmol/L (136-145); Troponin-I HS 10 pg/mL (3.0-78.0)
[2023-12-14 20:30] VITALS: BP 119/79
[2023-12-14 20:45] VITALS: BP 115/74; PULSE 84; RESP 18
[2023-12-14 21:02] LABS: BNP,B-Type NATRIURETIC PEPTIDE 6.6 pg/mL (0-100)
[2023-12-14 22:15] VITALS: BP 108/80; PULSE 83; RESP 18; TEMP 36.1; O2SAT 98
--- NOTE | 2023-12-14 22:30 | NURSING ---
Pt up for dc back to [facility]. Pt does not have a ride here and does not qualify for squad or WC transport. Pt able to ambulate independantly. Pt reports he has no money for Taxi. Facility called and notified pt is dc'ed and is waiting in the waiting room for ride back to their facility. Verbalized understanding.
== END 2023-12-14 22:41 | disposition home or self-care (01) ==
PROVIDERS: Emergency Provider Emergency Medicine; PCP Nurse Practitioner Adult Health; Visit Provider Emergency Medicine
DX: M79.89 Other specified soft tissue disorders (principal); I11.0 Hypertensive heart disease with heart failure; I50.9 Heart failure, unspecified; J44.9 Chronic obstructive pulmonary disease, unspecified; E11.9 Type 2 diabetes mellitus without complications; Z79.4 Long term (current) use of insulin; I25.10 Atherosclerotic heart disease of native coronary artery without angina pectoris; E03.9 Hypothyroidism, unspecified; Z95.5 Presence of coronary angioplasty implant and graft; Z79.51 Long term (current) use of inhaled steroids; Z79.899 Other long term (current) drug therapy; Z79.84 Long term (current) use of oral hypoglycemic drugs; Z87.891 Personal history of nicotine dependence
CPT/HCPCS: 71045; 80048; 83880; 84484; 85025; 93005; 99284; A4216

== ENCOUNTER 2023-12-30 10:59 | Inpatient (IN) | payer MEDICARE, MEDICAID, SELFPAY ==
[2023-12-30] VITALS (9 sets, daily range): BP systolic 122–152; BP diastolic 68–81; PULSE 71–95; RESP 16–19; TEMP 35.7–36.9; O2SAT 92–98; BMI 45.5; BMI 44.6
--- NOTE | 2023-12-30 12:36 | EX.ED.DYSGE1 ---
HPI History of Present Illness Chief Complaint: Lower Extremity Injury [facility] Medical History Lives in assisted living facility Wears glasses Wears dentures Depression Low iron Fatty liver Syncope Dietary restriction CPAP (continuous positive airway pressure) dependence Shortness of breath on exertion History of edema History of echocardiogram Cardiology follow-up encounter Tumor Atherosclerosis of coronary artery of [place] heart without angina pectoris Kidney stones COPD (chronic obstructive pulmonary disease) Former smoker Irregular heart beat NSVT (nonsustained ventricular tachycardia) Diabetes Asthma Hypothyroidism Hypertension Home Medications ?Medication ?Instructions ?Recorded ?Last Taken ?Type potassium chloride 20 mEq 20 meq PO DAILYCM SUPPLEMENT 04/23/19 12/30/23 Rx tablet,extended release(part/cryst) metformin 1,000 mg tablet 1,000 mg PO BID DIABETES 01/18/21 12/30/23 History sennosides 8.6 mg-docusate sodium 2 tab PO QPM CONSTIPATION 02/05/21 12/29/23 History 50 mg tablet (Senna Plus) sotalol 120 mg tablet 120 mg PO Q12H HEART ARRHYTHMIA 02/05/21 12/30/23 History tamsulosin 0.4 mg capsule 0.4 mg PO QHS PROSTATE 02/05/21 12/29/23 History albuterol sulfate 90 mcg/actuation 2 puff inhalation Q4H PRN 02/11/21 Unknown History aerosol inhaler SHORTNESS OF BREATH/WHEEZING duloxetine 60 mg capsule,delayed 60 mg PO BID DEPRESSION 05/22/21 12/30/23 History release montelukast 10 mg tablet 10 mg PO QHS ALLERGIES 01/10/22 12/29/23 History (Singulair) acetaminophen 650 mg 650 mg PO Q8H PRN PAIN/FEVER 02/04/22 Unknown History tablet,extended release (Tylenol Arthritis Pain) aluminum-mag hydroxide-simethicone 30 ml PO TID PRN INDIGESTION 02/04/22 11/18/23 History 400 mg-400 mg-40 mg/5 mL oral susp (Mylanta Maximum Strength) guaifenesin 600 mg tablet, 600 mg PO Q12H PRN CONGESTION 02/04/22 11/18/23 History extended release 12 hr (Mucinex) omega-3 fatty acids 1,000 mg 2,000 mg PO BID SUPPLEMENT 02/04/22 12/30/23 History capsule fluticasone propionate 115 2 puff inhalation BID COPD 07/31/22 12/30/23 History mcg-salmeterol 21 mcg/actuation HFA inhaler (Advair HFA) melatonin 10 mg tablet 10 mg PO QHS SLEEP 07/31/22 12/29/23 History artifi.tears(hypromellose)(PF) 1.7 1 drp ophthalmic (eye) Q6H PRN DRY 11/25/22 Unknown History % eye drops with applicator EYES blood sugar diagnostic 11/25/22 Unknown History sodium chloride 0.65 % nasal spray 2 spray intranasal Q4H PRN DRY 11/25/22 Unknown History aerosol (Deep Sea Nasal) NARES omeprazole 20 mg capsule,delayed 20 mg PO DAILY GERD 10/22/23 12/30/23 History release semaglutide 2 mg/dose (8 mg/3 mL) 2 mg subcut TH DIABETES 10/22/23 12/25/23 History subcutaneous pen injector (Ozempic) trazodone 50 mg tablet 25 mg PO QHS SLEEP 11/05/23 12/29/23 History atorvastatin 80 mg tablet 80 mg PO QHS CHOLESTEROL 11/18/23 12/29/23 History insulin glargine 100 unit/mL (3 38 unit subcut QHS DIABETES 11/18/23 12/29/23 History mL) subcutaneous pen (Lantus Solostar U-100 Insulin) levothyroxine 200 mcg tablet 200 mcg PO DAILY THYROID 11/18/23 12/30/23 History lisinopril 2.5 mg tablet 2.5 mg PO DAILY BLOOD PRESSURE 11/18/23 12/30/23 History furosemide 40 mg tablet 40 mg PO BID EDEMA 12/30/23 12/30/23 History metoprolol tartrate 25 mg tablet 12.5 mg PO BID BLOOD PRESSURE 12/30/23 12/30/23 History mineral oil-hydrophil petrolat 1 applic topical QHS DRY SKIN 12/30/23 12/29/23 History topical ointment (AmeriPhor topical ointment) nystatin 100,000 unit/gram topical 1 applic topical TID PRN 12/30/23 Unknown History powder REDNESS/RASH Allergy/AdvReac Type Severity Reaction Status Date / Time No Known Allergies Allergy Verified 06/23/24 19:18 Family History Unknown Colon polyps Surgical History Hx of colonoscopy History of coronary artery stent placement (01/18/21) History of thyroidectomy Social History household members: other details: Assisted living housing: assisted living facility current occupational status: disabled Smoking Status: Former smoker how long ago did patient quit smokin years ago alcohol intake: never substance use type: does not use caffeine: Yes Type: carbonated beverages EXAM Physical Exam Const Vital Signs: 12/30/23 11:00 12/30/23 11:00 12/30/23 13:00 Temperature 96.3 F L 96.3 F L Temperature Source Temporal Temporal Pulse Rate 87 71 86 Respiratory Rate 16 16 Blood Pressure 122/68 H 131/71 H Blood Pressure Mean 86 91 Pulse Ox 96 98 Oxygen Delivery Method Room Air Room Air 12/30/23 16:00 12/30/23 16:40 Temperature 96.8 F L 97.2 F L Temperature Source Temporal Temporal Pulse Rate 91 90 Respiratory Rate 17 18 Blood Pressure 137/71 H 152/81 H Blood Pressure Mean 93 104 Pulse Ox 98 97 Oxygen Delivery Method Room Air MDM MDM MDM Narrative Medical decision making narrative: HISTORY OF PRESENT ILLNESS: 58-year-old male presents with concern for infected legs. Notes a nurse at [facility] he thinks he may have a severe infection of his lower extremity. Notes 2 to 3 weeks of increasing redness and drainage from specifically left lower extremity also noticed redness of right lower extremity. Denies any significant pain, fever, vomiting REVIEW OF SYSTEMS: Pertinent positives: Leg swelling, leg redness and pain Pertinent negatives: Fever, vomiting PHYSICAL EXAM: Nursing triage notes reviewed, Vital signs reviewed Constitutional: please see mdm HENT: MMM Eyes: Pupils equal round and reactive to light, Extraocular muscles intact Neck: No stridor, no JVD, full neck ROM Lungs: Clear to auscultation, No wheezing or rales. No increased work of breathing, no conversational dyspnea, no accessory muscle use, no nasal flaring. No respiratory distress noted Heart: Regular rate and rhythm, No murmurs, No rubs and No gallops, 2+ distal pulses (radial, femoral, posterior tibial) in all extremities Abdomen: Soft, there is no tenderness, rigidity, rebound or guarding, no obvious peritoneal signs, no palpable pulsatile abdominal masses, no auscultated abdominal bruit : No CVAT Extremities: No edema, 1-2+ edema in bilateral lower extremities Neuro: No focal neurological deficits, cranial nerves II through XII intact, 5/5 strength in all extremities. Intact sensation to light touch in all extremities, 2+ reflexes bilateral patella tendons. No ataxia. Skin: Erythema, large ulceration noted to left lower extremity it is very superficial but has yellow drainage, is warm it is not tender to touch, MEDICAL DECISION MAKING: Chief Complaint: Leg pain, concern for leg infection External records reviewed: Seen in November 2023 in the ED for leg swelling. That time he had 1-2+ pitting edema in the legs from the knees down. Factors affecting care: Type 2 diabetes, hypertension, GERD, hyperlipidemia, CHF, CAD with cardiac stent Social determinants of health: History of medication noncompliance History obtained from others: none Consults: Internal medicine open sees Dr. Gunn) MDM Narrative: Patient was hemodynamically stable, afebrile and nontoxic-appearing. Exam with confluent erythema noted to bilateral lower extremities, warmth, yellow drainage chronic appearing ulceration to left lower extremity. Patient's clinical exam is not consistent with necrotizing fasciitis as there is no bullae or crepitus or pain on proportion to exam. There is no signs of gangrene, eschar, significant decreased perfusion. There is no evidence of septic joint as he had no joint tenderness. I considered the following differential diagnosis: Cellulitis, necrotizing fasciitis, DVT, compartment syndrome, septic arthritis ALL IMAGES (IF OBTAINED) HAVE BEEN PERSONALLY REVIEWED AND INTERPRETED BY MYSELF. CBC with leukocytosis suggestive of systemic inflammation, noted mild anemia but no thrombocytopenia BMP without evidence of significant electrolyte abnormalities, no anion gap, no acute kidney injury. Lactate consistent with endorgan hypoperfusion DVT ultrasound was negative for acute DVT 3:31 PM: Given bilateral nature of the patient's erythema, history of diabetes, evidence of systemic inflammation and endorgan hypoperfusion with elevated white blood cell count and elevated lactate patient require inpatient mission. Give 1 L normal saline IV vancomycin. After discussion with the hospitalist he requested a CT scan lower extremity to rule out gangrene. CT scan was obtained. Awaiting final read on CT scan at this time. 4:[address] was read by myself shows no evidence of obvious deep infection or obvious gangrene or significant tissue gas. Awaiting radiologist read. Dr. Gunn is seeing the patient. He is okay with admission without final CT results. The patient and/or family, caregivers express understanding. The patient and/or family, caregivers agrees with the plan. Shared decision making: I will have a discussion with the patient and or visitors regarding risk/benefits of further testing or admission. They will be made aware of of the risk/benefits inherent in this decision they will be given the opportunity to voice understanding. Total critical care time today provided was at least 0 minutes. This excludes separately billable procedures. Critical care time (if documented) is secondary to the patient having high probability of clinically significant/life threatening deterioration in the patient's condition which required my urgent intervention. Impression: 1. Bilateral lower extremity cellulitis 2. History of type 2 diabetes 3. Elevated lactate Dispo: Admit to [facility] This note was generated with [employer] dictation software. It may contain incorrect words, spelling, and punctuation that were not noted in review of the chart prior to signing. Lab Data Labs: Laboratory Results - last 24 hr 12/30/23 12/30/23 13:00 14:09 WBC 11.1 H RBC 4.58 L Hgb 11.5 L Hct 37.6 L MCV 82.1 MCH 25.1 L MCHC 30.6 L RDW Std Deviation 57.0 H RDW Coeff of Jovany 19.3 H Plt Count 164 MPV 9.5 Immature Gran % (Auto) 0.500 Neut % (Auto) 76.0 H Lymph % (Auto) 13.1 L Russell % (Auto) 6.2 Eos % (Auto) 3.7 Baso % (Auto) 0.5 Absolute Neuts (auto) 8.4 H Absolute Lymphs (auto) 1.45 Nucleated RBC % 0 Sodium 131 L Potassium 3.9 Chloride 95 L Carbon Dioxide 30.0 Anion Gap 6 BUN 10 Creatinine 0.72 Estim Creat Clear Calc 170.14 Est GFR (MDRD) Af Amer 144 Est GFR (MDRD) Non-Af 119 BUN/Creatinine Ratio 13.9 Glucose 253 H Lactic Acid 2.5 H* Calcium 8.9 Radiography Diagnostic Testing: Clinical Impression(s) from Imaging Studies Venous Doppler Study 12/30/23 13:00 Interpretation Summary Deep veins of the left lower extremity are patent and compressible segmentally. There is no evidence of left lower extremity deep vein thrombosis. The left great saphenous vein appears patent and compressible segmentally. Ordering Physician: Von Gutierrez Referring Physician: Radha Barajas Performed By: Trey Nettles RVT Discharge Plan Triage Chief Complaint: Lower Extremity Injury ED Provider: Von Gutierrez Dx/Rx/DC Orders Primary Care Provider: Radha Barajas [employer]
--- NOTE | 2023-12-30 13:00 | VDLE_ITS ---
Reason For Study: LLE Swelling RIGHT LEFT FV is compressible, spontaneous, phasic, GSV is normal. competent and demonstrates normal CFV is compressible, spontaneous, phasic, augmentation. competent, and demonstrates normal Procedure augmentation. This is a venous duplex using B-mode, color FV is compressible, spontaneous, phasic, flow and spectral Doppler. competent and demonstrates normal Exam performed portable in ED. augmentation. The study was technically difficult. POP V is compressible, spontaneous, phasic, A preliminary report was called and/or faxed competent and demonstrates normal to ED RN Responsible for patient. augmentation. T/P Trunk is compressible. PTV is compressible. LT PerV is compressible. Unable to visualize distal PTV / Alin V due to wound. VL/Venous Duplex US, Unilateral Interpretation Summary Deep veins of the left lower extremity are patent and compressible segmentally. There is no evidence of left lower extremity deep vein thrombosis. The left great saphenous vein susi ears patent and compressible segmentally. Ordering Physician: Von Gutierrez Referring Physician: Radha Barajas Performed By: Trey Nettles RVT
[2023-12-30 13:06] LABS: Absolute Lymphocyte Count 1.45 X10^3/uL (0.83-4.51); Absolute Neutrophil Count 8.4 X10^3/uL (2.0-7.7); Basophil# 0.05 X10^3/uL; Basophil% 0.5 % (0-1); Eosinophil# 0.41 X10^3/uL; Eosinophils% 3.7 % (0-5); Hematocrit 37.6 % (40-54); Hemoglobin 11.5 g/dL (13.0-16.5); Lymphocyte # 1.45 X10^3/ul (0.83-4.51); Lymphocyte % 13.1 % (19-41); Mean Corp Hgb Conc 30.6 g/dL (32-36); Mean Corpuscular Hgb 25.1 pg (27.0-32.0); Mean Corpuscular Volume 82.1 fL (80-94); Mean Platelet Vol. 9.5 fl (6.2-12.0); Monocyte# 0.69 X10^3/uL; Monocyte% 6.2 % (0-10); NRBC Flagged by Analyzer 0 % (0-5); Neutrophil # 8.44 X10^3/uL (2.7-7.7); Platelet Count 164 K/mm3 (150-450); RBC Distribution Width CV 19.3 % (11.6-14.6); Red Blood Count 4.58 M/mm3 (4.6-6.2); White Blood Count 11.1 K/mm3 (4.4-11.0)
[2023-12-30] MEDS: Vancomycin HCl 2,000 MG in 0.9% Normal Saline (500mL Bag) 500 ML 250 MG IV (13:21)
[2023-12-30 13:23] LABS: Anion Gap 6 (5-15); BUN 10 mg/dL (7-18); BUN/Creat Ratio 13.9 RATIO (10-20); Calcium,Total 8.9 mg/dL (8.5-10.1); Chloride 95 mmol/L (98-107); Creatinine, Serum 0.72 mg/dL (0.70-1.30); EST Glomerular Filtration Rate 119 mL/min (>60); Est Glom Filt Rate - Afr Amer 144 mL/min (>60); Estimated Creatinine Clearance 170.14 ml/min; Glucose 253 mg/dL (74-106); Potassium 3.9 mmol/L (3.5-5.1); Sodium Level 131 mmol/L (136-145)
[2023-12-30 14:53] LABS: Lactic Acid 2.5 mmol/L (0.4-1.9)
--- NOTE | 2023-12-30 14:54 | ED.RN ---
lactic 2.5 dr rowan
--- NOTE | 2023-12-30 15:22 | CT_ITS ---
INDICATION: gangrene EXAMINATION: - CT Left Tibia/Fibula W/O Contrast Injection TECHNIQUE: Routine noncontrast bone CT protocol was performed of the left lower leg. 2-D reformats were performed by the technologist. The protocol utilizes one or more of the following dose reduction techniques: automated exposure control, adjustment of mA and/or kV according to patient size,and/or use of iterative reconstruction technique. IV Contrast dosage and agent: None. RADIATION DOSAGE (If Supplied By Facility): CTDIvol = ( 15.35 ) mGy, DLP = ( 887.21 ) mGycm COMPARISON: FINDINGS: SOFT TISSUES: There is lateral and posterior subcutaneous edema of the lower leg. Calcifications in the Hoffa''s fat pad. No subcutaneous emphysema. No drainable collection. No radiopaque foreign body. BONES/JOINTS: No acute fracture or subluxation. Focal sclerosis and possible osteochondral lesion of the lateral femoral condyle. Normal alignment. Preservation of the joint space. CT/Extremity Lower without Contra IMPRESSION: Subcutaneous edema. No drainable collection. Electronically Signed: Benjamin Bishop DO at 16:59 EDT Reading Location ID and State: [facility] / [place] Tel [phone], Service support ,
--- NOTE | 2023-12-30 16:35 | NURSING ---
MED SURG KIANA CELLULITIS
[2023-12-30] MEDS: 0.9% Normal Saline (1000mL) 1,000 ML 999 ML IV (16:39)
--- NOTE | 2023-12-30 17:05 | PCM.HP.STD ---
HPI - General General Date of Admission: 12/30/23 Date of Service: 12/30/23 Chief Complaint: Left leg yellowish discharge and crust, cellulitis for 4 weeks HPI Narrative ZAK HOYT, is a 58 M with history of diabetes mellitus was sent to ED from [facility] for left leg cellulitis. Patient has increased swelling of left leg below knee level with erythema, yellowish discharge with crust and sometimes clear oozing of fluid. This has been ongoing for 4 weeks. Patient denies fever. Vitals in the ED in normal range. Mild leukocytosis. Patient had CT of the lower extremity which shows subcutaneous edema but no drainable collection. Venous Doppler study shows deep veins of left lower extremity are patent and compressible with no evidence of DVT [facility] Medical History Sleep apnea Lives in assisted living facility Wears glasses Wears dentures Depression Low iron Fatty liver Syncope Dietary restriction CPAP (continuous positive airway pressure) dependence Shortness of breath on exertion History of edema History of echocardiogram Cardiology follow-up encounter Tumor Atherosclerosis of coronary artery of [place] heart without angina pectoris Kidney stones COPD (chronic obstructive pulmonary disease) Former smoker Irregular heart beat NSVT (nonsustained ventricular tachycardia) Diabetes Asthma Hypothyroidism Hypertension Home Medications ?Medication ?Instructions ?Recorded ?Last Taken ?Type potassium chloride 20 mEq 20 meq PO DAILYCM SUPPLEMENT 04/23/19 12/30/23 Rx tablet,extended release(part/cryst) metformin 1,000 mg tablet 1,000 mg PO BID DIABETES 01/18/21 12/30/23 History sennosides 8.6 mg-docusate sodium 2 tab PO QPM CONSTIPATION 02/05/21 12/29/23 History 50 mg tablet (Senna Plus) sotalol 120 mg tablet 120 mg PO Q12H HEART ARRHYTHMIA 02/05/21 12/30/23 History tamsulosin 0.4 mg capsule 0.4 mg PO QHS PROSTATE 02/05/21 12/29/23 History albuterol sulfate 90 mcg/actuation 2 puff inhalation Q4H PRN 02/11/21 Unknown History aerosol inhaler SHORTNESS OF BREATH/WHEEZING duloxetine 60 mg capsule,delayed 60 mg PO BID DEPRESSION 05/22/21 12/30/23 History release montelukast 10 mg tablet 10 mg PO QHS ALLERGIES 01/10/22 12/29/23 History (Singulair) acetaminophen 650 mg 650 mg PO Q8H PRN PAIN/FEVER 02/04/22 Unknown History tablet,extended release (Tylenol Arthritis Pain) aluminum-mag hydroxide-simethicone 30 ml PO TID PRN INDIGESTION 02/04/22 11/18/23 History 400 mg-400 mg-40 mg/5 mL oral susp (Mylanta Maximum Strength) guaifenesin 600 mg tablet, 600 mg PO Q12H PRN CONGESTION 02/04/22 11/18/23 History extended release 12 hr (Mucinex) omega-3 fatty acids 1,000 mg 2,000 mg PO BID SUPPLEMENT 02/04/22 12/30/23 History capsule fluticasone propionate 115 2 puff inhalation BID COPD 07/31/22 12/30/23 History mcg-salmeterol 21 mcg/actuation HFA inhaler (Advair HFA) melatonin 10 mg tablet 10 mg PO QHS SLEEP 07/31/22 12/29/23 History artifi.tears(hypromellose)(PF) 1.7 1 drp ophthalmic (eye) Q6H PRN DRY 11/25/22 Unknown History % eye drops with applicator EYES blood sugar diagnostic 11/25/22 Unknown History sodium chloride 0.65 % nasal spray 2 spray intranasal Q4H PRN DRY 11/25/22 Unknown History aerosol (Deep Sea Nasal) NARES omeprazole 20 mg capsule,delayed 20 mg PO DAILY GERD 10/22/23 12/30/23 History release semaglutide 2 mg/dose (8 mg/3 mL) 2 mg subcut TH DIABETES 10/22/23 12/25/23 History subcutaneous pen injector (Ozempic) trazodone 50 mg tablet 25 mg PO QHS SLEEP 11/05/23 12/29/23 History atorvastatin 80 mg tablet 80 mg PO QHS CHOLESTEROL 11/18/23 12/29/23 History insulin glargine 100 unit/mL (3 38 unit subcut QHS DIABETES 11/18/23 12/29/23 History mL) subcutaneous pen (Lantus Solostar U-100 Insulin) levothyroxine 200 mcg tablet 200 mcg PO DAILY THYROID 11/18/23 12/30/23 History lisinopril 2.5 mg tablet 2.5 mg PO DAILY BLOOD PRESSURE 11/18/23 12/30/23 History furosemide 40 mg tablet 40 mg PO BID EDEMA 12/30/23 12/30/23 History metoprolol tartrate 25 mg tablet 12.5 mg PO BID BLOOD PRESSURE 12/30/23 12/30/23 History mineral oil-hydrophil petrolat 1 applic topical QHS DRY SKIN 12/30/23 12/29/23 History topical ointment (AmeriPhor topical ointment) nystatin 100,000 unit/gram topical 1 applic topical TID PRN 12/30/23 Unknown History powder REDNESS/RASH Allergy/AdvReac Type Severity Reaction Status Date / Time No Known Allergies Allergy Verified 12/14/23 19:18 Family History Unknown Colon polyps Surgical History Hx of colonoscopy History of coronary artery stent placement (01/18/21) History of thyroidectomy Social History household members: other details: Assisted living housing: assisted living facility current occupational status: disabled Smoking Status: Former smoker how long ago did patient quit smokin years ago alcohol intake: never substance use type: does not use caffeine: Yes Type: carbonated beverages ROS ROS Narrative Constitutional: Reports chronic fatigue and weakness. Mild fever. HEENT: Reports systems reviewed and no addt'l complaints, except as documented Respiratory/Chest: No acute shortness of breath or respiratory distress or wheezing. CVS: No chest pain or tightness. Gastrointestinal: Denies coffee ground emesis, hematemesis or vomiting Genitourinary: Denies burning urination or new urinary tract symptoms Musculoskeletal: Denies acute joint pain or limited range of motion. No acute injury Neurologic: Denies seizure-like symptoms. skin: Rash with superficial ulceration left leg Endocrinology: History of diabetes mellitus type 2 on insulin. Reports systems reviewed and no addt'l complaints, except as documented Hematologic/Lymphatic: Reports systems reviewed and no addt'l complaints, except as documented Rest 14 ROS are negative except as mentioned in HPI Vital Signs Vital Signs Vital Signs: 12/30/23 11:00 12/30/23 11:00 12/30/23 13:00 Temperature 96.3 F L 96.3 F L Temperature Source Temporal Temporal Pulse Rate 87 71 86 Respiratory Rate 16 16 Blood Pressure 122/68 H 131/71 H Blood Pressure Mean 86 91 Pulse Ox 96 98 Oxygen Delivery Method Room Air Room Air 12/30/23 16:00 12/30/23 16:40 12/30/23 16:57 Temperature 96.8 F L 97.2 F L 98.5 F Temperature Source Temporal Temporal Pulse Rate 91 90 92 Respiratory Rate 17 18 19 H Blood Pressure 137/71 H 152/81 H 147/75 H Blood Pressure Mean 93 104 99 Pulse Ox 98 97 92 Oxygen Delivery Method Room Air Weight Weight: 336 lb 3.279 oz Body Mass Index (BMI) 45.5 Physical Exam Narrative General: Alert, Oriented x3, Cooperative. Morbid obesity BMI 44.7 kg/m? HEENT: Atraumatic, PERRLA, EOMI, Normocephalic Oral: No Gingival or Mucosal Lesions/ Ulcerations Neck: Supple, No JVD, Negative Carotid Bruits Chest wall/Lungs: Air entry diminished in bilateral lung bases. No crepitation/rhonchi Cardiovascular: Regular rate, Regular Rhythm, Normal S1, Normal S2, No M/G/R Abdomen: Bowel Sounds Present, Soft, Non Tender, Non-Distended : No dysuria. No renal angle tenderness. No suprapubic tenderness. Extremities: Mild superficial edema of left leg, Capillary Refill Less than 3 Seconds Skin: Left leg below knee is edematous, tender, induration with superficial ulceration on the medial aspect with yellow crust. Venous trademark Musculoskeletal: No Tenderness to Palpation of Joints or Extremities Neurological: Cranial nerves II-XII grossly intact, DTR 2+/4. No acute focal neurological deficit. Psych/Mental Status: Flat affect Results Lab / Micro Data 12/30/23 13:00 12/30/23 13:00 Labs: Laboratory Results - last 24 hr 12/30/23 13:00: WBC 11.1 H, RBC 4.58 L, Hgb 11.5 L, Hct 37.6 L, MCV 82.1, MCH 25.1 L, MCHC 30.6 L, RDW Std Deviation 57.0 H, RDW Coeff of Jovany 19.3 H, Plt Count 164, MPV 9.5, Immature Gran % (Auto) 0.500, Neut % (Auto) 76.0 H, Lymph % (Auto) 13.1 L, Adams % (Auto) 6.2, Eos % (Auto) 3.7, Baso % (Auto) 0.5, Absolute Neuts (auto) 8.4 H, Absolute Lymphs (auto) 1.45, Nucleated RBC % 0, Sodium 131 L, Potassium 3.9, Chloride 95 L, Carbon Dioxide 30.0, Anion Gap 6, BUN 10, Creatinine 0.72, Estim Creat Clear Calc 170.14, Est GFR (MDRD) Af Amer 144, Est GFR (MDRD) Non-Af 119, BUN/Creatinine Ratio 13.9, Glucose 253 H, Calcium 8.9 12/30/23 14:09: Lactic Acid 2.5 H* Imaging Radiology Impression Venous Doppler Study 12/30/23 13:00 Interpretation Summary Deep veins of the left lower extremity are patent and compressible segmentally. There is no evidence of left lower extremity deep vein thrombosis. The left great saphenous vein appears patent and compressible segmentally. Ordering Physician: Von Gutierrez Referring Physician: Radha Barajas Performed By: Trey Nettles, Ro Lower Extremity CT 12/30/23 15:22 IMPRESSION: Subcutaneous edema. No drainable collection. Electronically Signed: Benjamin Bishop DO at 16:59 EDT Reading Location ID and State: [facility] / [place] Tel [phone], Service support , Assessment & Plan Assessment/Plan (1) Cellulitis: PLAN: Plan This is 58-year-old gentleman being admitted for left lower leg cellulitis. 1. Left lower leg cellulitis with superficial ulceration and venous hypertension and lymphedema: Patient is being admitted [facility] floor. Patient started on IV antibiotic vancomycin and ceftriaxone. Lactic acid elevated 2.5 but patient clinically does not look septic therefore sepsis ruled out. Lactic acidosis most likely due to metformin or sluggish circulation of lower extremities. Tylenol for fever. Marsala from left leg superficial ulcer ordered. Mild leukocytosis. CT of lower extremity shows subcutaneous edema but no drainable collection. Venous duplex was negative for DVT and left lower extremity. 2. History of CAD status post stent: Patient also had NSVT during previous hospitalization in August. Home cardiac medications metoprolol, lisinopril, atorvastatin and sotalol continued. Hold furosemide now but reevaluate later on as patient might need to be resumed 3. Diabetes mellitus type 2, uncontrolled: Glucose 253 in BMP. Patient on Lantus insulin 32 subcutaneously at bedtime daily. Lantus continued. Hold metformin. 4. Hypertension: On lisinopril and metoprolol 5. Hypothyroidism: On levothyroxine, continued 6. Hyperlipidemia: On atorvastatin 7. Chronic HFpEF: Echo in August 2018 shows EF 55 to 60%. Normal LV systolic function. Patient on Lasix 40 mg twice daily which is held but might be continued later on. 8. DVT prophylaxis, high risk: Enoxaparin 40 mg SQ twice daily. Living will/advanced directive/end of life care: Patient does not have living will or advanced directive. After discussion of benefits/risks procedures involved with full code, DNR CC arrest and DNR CC, the patient opted for full code. Patient does want artificial life support including intubation, tube feed, ventilator and/chest compression, central venous catheter, vasopressor and DC shock if needed Total time spent in [id number] encounter in discussion of advanced directive 17 minutes. Clinical Impression(s) from Imaging Studies Venous Doppler Study 12/30/23 13:00 Interpretation Summary Deep veins of the left lower extremity are patent and compressible segmentally. There is no evidence of left lower extremity deep vein thrombosis. The left great saphenous vein appears patent and compressible segmentally. Lower Extremity CT 12/30/23 15:22 IMPRESSION: Subcutaneous edema. No drainable collection. Electronically Signed: Benjamin Bishop at 16:59 EDT , 2D echo in August 2021 Interpretation Summary The estimated ejection fraction is 55-60 %. Normal LV systolic function No significant changes from prior Echo Laboratory Results 12/30/23 13:00: WBC 11.1 H, RBC 4.58 L, Hgb 11.5 L, Hct 37.6 L, MCV 82.1, MCH 25.1 L, MCHC 30.6 L, RDW Std Deviation 57.0 H, RDW Coeff of Jovany 19.3 H, Plt Count 164, MPV 9.5, Immature Gran % (Auto) 0.500, Neut % (Auto) 76.0 H, Lymph % (Auto) 13.1 L, Adams % (Auto) 6.2, Eos % (Auto) 3.7, Baso % (Auto) 0.5, Absolute Neuts (auto) 8.4 H, Absolute Lymphs (auto) 1.45, Nucleated RBC % 0, Sodium 131 L, Potassium 3.9, Chloride 95 L, Carbon Dioxide 30.0, Anion Gap 6, BUN 10, Creatinine 0.72, Estim Creat Clear Calc 170.14, Est GFR (MDRD) Af Amer 144, Est GFR (MDRD) Non-Af 119, BUN/Creatinine Ratio 13.9, Glucose 253 H, Calcium 8.9 12/30/23 14:09: Lactic Acid 2.5 H* Charges/Coding Visit Charges Inpatient E&M: 80853 Init Hosp L3 Procedures Hospitalists Procedures: 80414 Advncd Care Plan 30 Min
[2023-12-30] MEDS: 0.9% Normal Saline (1000mL) 1,000 ML 100 ML IV (17:31)
[2023-12-30] MEDS: Ceftriaxone 2 GM in 0.9% Normal Saline (50mL MB+) 50 ML IV (17:49)
[2023-12-30 18:16] LABS: Reflex Lactate? Y
--- NOTE | 2023-12-30 18:29 | PCM.RX.CS ---
Consult Antibiotic Management Pharmacy has been consulted to manage selected antibiotic: Vancomycin Type of Intervention Type of Consult: New start Suspected Infection Suspected Infection: Skin/Soft tissue Prior Doses of Antibiotics Prior Doses of Antibiotics Received/Current Regimen: the patient received 2000mg IV x1 in E.R. starting at 13:21 today Labs Labs: Sodium 131 mmol/L (136-145) L 12/30/23 13:00 Potassium 3.9 mmol/L (3.5-5.1) 12/30/23 13:00 Chloride 95 mmol/L (98-107) L 12/30/23 13:00 Carbon Dioxide 30.0 mmol/L (21.0-32.0) 12/30/23 13:00 Anion Gap 6 (5-15) 12/30/23 13:00 BUN 10 mg/dL (7-18) 12/30/23 13:00 Creatinine 0.72 mg/dL (0.70-1.30) 12/30/23 13:00 Est GFR (MDRD) Af Amer 144 mL/min (>60) 12/30/23 13:00 Est GFR (MDRD) Non-Af 119 mL/min (>60) 12/30/23 13:00 BUN/Creatinine Ratio 13.9 RATIO (10-20) 12/30/23 13:00 Glucose 253 mg/dL (74-106) H 12/30/23 13:00 Dosing Weight Weight used for dosin lb 9.457 oz Estimated Creatinine Clearance Estimated Creatinine Clearance: >100ml/min Goal Trough Goal Trough: 15-20 mcg/mL Pharmacy Plan for Drug Dosing Pharmacy Plan for Drug Dosing: The patient already got the loading dose in ER so will continue after that with vanc 1500mg IV q8h per [facility] dosing protocol. Will check a trough before the 4th total dose tomorrow. Pharmacy Service will continue to monitor and adjust dosing as required. Follow-Up Labs Follow-Up Labs: Trough: Vancomycin Date/Time Labs Ordered Labs to be done on [date and time ordered]: 12/31/23 13:30
[2023-12-30 19:22] LABS: Lactic Acid 2.2 mmol/L (0.4-1.9)
[2023-12-30] MEDS: Albuterol 2.5 MG/3 ML VIAL.NEB. INHALATION (20:15)
[2023-12-30] MEDS: Budesonide Respules 0.5 MG/2 ML AMPUL.NEB. INHALATION (20:16)
[2023-12-30 21:12] LABS: M R Staph aureus DNA By PCR Negative (Negative); Probe Check PASS; Specimen Processing Control PASS; Staph aureus DNA By PCR NEGATIVE (Negative)
[2023-12-30] MEDS: Senna/Docusate Sodium 1 Tablet 2 TABLET PO (21:15)
[2023-12-30] MEDS: DULoxetine Hcl 60 MG Capsule PO (21:15)
[2023-12-30] MEDS: Sotalol Hydrochloride 80 MG Tablet 120 MG PO (21:15)
[2023-12-30] MEDS: traZODone 50 MG Tablet 25 MG PO (21:16)
[2023-12-30] MEDS: Tamsulosin HCl 0.4 MG Capsule PO (21:16)
[2023-12-30] MEDS: Insulin Lispro 100 UNIT/ML INSULN.PEN SC (21:16)
[2023-12-30] MEDS: Insulin Glargine-YFGN 100 UNIT/ML Pen 38 UNIT SC (21:16)
[2023-12-30] MEDS: Vancomycin HCl 1,500 MG in 0.9% Normal Saline (500mL Bag) 500 ML 250 MG IV (21:17)
[2023-12-30] MEDS: Metoprolol Tartrate 25 MG Tablet 12.5 MG PO (21:17)
[2023-12-30] MEDS: Montelukast 10 MG Tablet PO (21:17)
[2023-12-30] MEDS: Atorvastatin Calcium 80 MG Tablet PO (21:17)
[2023-12-30] MEDS: MELATONIN 10 MG TABLET PO (21:17)
[2023-12-30] MEDS: Enoxaparin 40 MG/0.4 ML Syringe SC (21:17)
[2023-12-30 23:14] LABS: Bedside Glucose 190 mg/dL (74-106)
[2023-12-31] VITALS (8 sets, daily range): BP systolic 118–137; BP diastolic 62–85; PULSE 79–85; RESP 16–20; TEMP 36.3–37; O2SAT 93–95; BMI 44.6
[2023-12-31] MEDS: 0.9% Normal Saline (1000mL) 1,000 ML 100 ML IV (03:26)
[2023-12-31] MEDS: Nystatin Powder 15gm Bottle 1 APPLIC TOPICAL ×3 (06:28→21:06)
[2023-12-31] MEDS: Levothyroxine 100 MCG Tablet 200 MCG PO (06:28)
[2023-12-31] MEDS: Vancomycin HCl 1,500 MG in 0.9% Normal Saline (500mL Bag) 500 ML 250 MG IV (06:28)
[2023-12-31] MEDS: Insulin Lispro 100 UNIT/ML INSULN.PEN SC ×4 (06:28→21:02)
[2023-12-31 07:02] LABS: Bedside Glucose 173 mg/dL (74-106)
--- NOTE | 2023-12-31 07:08 | PCM.PN.HOSP ---
Reason for Visit Reason for Visit: Diagnoses Cellulitis, unspecified (12/30/23) Subjective Subjective Patient is a 58-year-old gentleman admitted with left lower extremity redness and warmth consistent with cellulitis admitted to regular nursing floor for further management Objective Data Objective Data Vital Signs: Vital Signs Temp Pulse Resp BP Pulse Ox O2 Del Method 98.2 F 80 18 118/66 95 Room Air 12/31/23 03:25 12/31/23 03:25 12/31/23 03:25 12/31/23 03:25 12/31/23 03:25 12/31/23 03:33 Oxygen Delivery Method Room Air Weight: 149.5 kg Body Mass Index (BMI) 44.6 Intake & Output: Intake and Output for Last 24 Hours 12/29/23 12/30/23 12/31/23 23:59 23:59 23:59 Intake Total 2151.67 / 2771.67 1530 / 1530 Balance 2151.67 / 2771.67 1530 / 1530 Lab / Micro Data 12/31/23 06:20 12/31/23 06:20 Labs: Laboratory Results - last 24 hr 12/30/23 13:00: WBC 11.1 H, RBC 4.58 L, Hgb 11.5 L, Hct 37.6 L, MCV 82.1, MCH 25.1 L, MCHC 30.6 L, RDW Std Deviation 57.0 H, RDW Coeff of Jovany 19.3 H, Plt Count 164, MPV 9.5, Immature Gran % (Auto) 0.500, Neut % (Auto) 76.0 H, Lymph % (Auto) 13.1 L, [place] % (Auto) 6.2, Eos % (Auto) 3.7, Baso % (Auto) 0.5, Absolute Neuts (auto) 8.4 H, Absolute Lymphs (auto) 1.45, Nucleated RBC % 0, Sodium 131 L, Potassium 3.9, Chloride 95 L, Carbon Dioxide 30.0, Anion Gap 6, BUN 10, Creatinine 0.72, Estim Creat Clear Calc 170.14, Est GFR (MDRD) Af Amer 144, Est GFR (MDRD) Non-Af 119, BUN/Creatinine Ratio 13.9, Glucose 253 H, Calcium 8.9 12/30/23 14:09: Lactic Acid 2.5 H* 12/30/23 18:48: Lactic Acid 2.2 H* 12/30/23 19:25: S.aureus Protein A PCR NEGATIVE, MRSA (PCR) Negative 12/30/23 21:12: POC Glucose 190 H 12/31/23 06:27: POC Glucose 173 H Radiography Diagnostic Testing: Radiology Impression Venous Doppler Study 12/30/23 13:00 Interpretation Summary Deep veins of the left lower extremity are patent and compressible segmentally. There is no evidence of left lower extremity deep vein thrombosis. The left great saphenous vein appears patent and compressible segmentally. Ordering Physician: Von Gutierrez Referring Physician: Radha Barajas Performed By: Trey Nettles, T Lower Extremity CT 12/30/23 15:22 IMPRESSION: Subcutaneous edema. No drainable collection. Electronically Signed: Benjamin Bishop DO at 16:59 EDT Reading Location ID and State: [facility] / [place] Tel [phone], Service support , Physical Exam Narrative GENERAL: cooperative HEENT: Atraumatic; normocephalic EYES; Anicteric, Normal Conjunctiva NECK; supple, normal thyroid, RESPIRATORY: Diminished to auscultation CARDIOVASCULAR: Regular S1 S2, GI: soft, normoactive bowel sounds, : No Renal angle tenderness; EXTREMITIES: No edema, no clubbing, MUSCULOSKELETAL: no muscle wasting NEURO: Awake; no lateralizing signs. SKIN: superficial ulceration on the medial aspect LLE distally PSYCH; Flat affect Assessment & Plan Assessment/Plan (1) Cellulitis: PLAN: Plan This is 58-year-old gentleman being admitted for left lower leg cellulitis. 1. Left lower leg cellulitis -with superficial ulceration and venous hypertension and lymphedema. Patient was admitted to regular nursing floor treatment initiated with ceftriaxone as well as vancomycin cultures including MRSA swab ordered 2. Lactic acidosis ? Patient did not meet criteria for sepsis on admission this was attributed to patient being on metformin 3. Coronary artery disease ? With previous stent placement remained stable 4. Diabetes mellitus type II -patient's oral hypoglycemics held. Placed on long acting insulin, Accu-Cheks a.c. and at bedtime and covered with sliding scale insulin 5. Hypothyroidism - Patient is on levothyroxine home dose continued 6. Hypertension - Blood pressure controlled, home medications continued with dose adjustment as needed 7. Dyslipidemia -Patient is on statin therapy, continued at home dose 8. Class III obesity with BMI of 44.7 ? Complicating care weight loss advised 9. Chronic congestive heart failure with preserved ejection fraction ? Echo from August 2018 demonstrated EF of 55 to 60%. Patient remains euvolemic 10. DVT prophylaxis ? SC Lovenox Time spent in the patient's overall evaluation,decision-making process, review of diagnostic data, adjustment of management, discussion with other providers, nursing nursing and ancillary staff involved in patient's care documentation, 35 Minutes Charges/Coding Visit Charges Inpatient E&M: 39294 Subs Hosp L2
[2023-12-31 07:33] LABS: Absolute Lymphocyte Count 1.28 X10^3/uL (0.83-4.51); Absolute Neutrophil Count 6.4 X10^3/uL (2.0-7.7); Basophil# 0.05 X10^3/uL; Basophil% 0.6 % (0-1); Eosinophil# 0.41 X10^3/uL; Eosinophils% 4.7 % (0-5); Hemoglobin 11.8 g/dL (13.0-16.5); Lymphocyte # 1.28 X10^3/ul (0.83-4.51); Lymphocyte % 14.6 % (19-41); Mean Corp Hgb Conc 29.5 g/dL (32-36); Mean Corpuscular Volume 84.7 fL (80-94); Mean Platelet Vol. 9.9 fl (6.2-12.0); Monocyte# 0.59 X10^3/uL; Monocyte% 6.7 % (0-10); NRBC Flagged by Analyzer 0 % (0-5); Neutrophil # 6.39 X10^3/uL (2.7-7.7); Neutrophil % 72.9 % (47-70); Platelet Count 167 K/mm3 (150-450); RBC Distribution Width CV 19.3 % (11.6-14.6); RBC Distribution Width SD 59.7 fl (35.1-43.9); Red Blood Count 4.72 M/mm3 (4.6-6.2); White Blood Count 8.8 K/mm3 (4.4-11.0)
[2023-12-31 08:01] LABS: Anion Gap 4 (5-15); BUN 8 mg/dL (7-18); BUN/Creat Ratio 12.4 RATIO (10-20); Calcium,Total 8.5 mg/dL (8.5-10.1); Chloride 100 mmol/L (98-107); Creatinine, Serum 0.64 mg/dL (0.70-1.30); EST Glomerular Filtration Rate 136 mL/min (>60); Est Glom Filt Rate - Afr Amer 164 mL/min (>60); Estimated Creatinine Clearance 189.27 ml/min; Glucose 180 mg/dL (74-106); Potassium 3.9 mmol/L (3.5-5.1); Sodium Level 134 mmol/L (136-145)
[2023-12-31] MEDS: Sotalol Hydrochloride 80 MG Tablet 120 MG PO ×2 (08:04→21:01)
[2023-12-31] MEDS: Lisinopril 2.5 MG Tablet PO (08:04)
[2023-12-31] MEDS: Pantoprazole Sodium 20 MG Tablet PO (08:04)
[2023-12-31] MEDS: Metoprolol Tartrate 25 MG Tablet 12.5 MG PO ×2 (08:04→21:01)
[2023-12-31] MEDS: DULoxetine Hcl 60 MG Capsule PO ×2 (08:04→21:00)
[2023-12-31] MEDS: Enoxaparin 40 MG/0.4 ML Syringe SC ×2 (08:05→21:06)
--- NOTE | 2023-12-31 09:17 | WOUNDNOTE ---
wound photo: left lower leg
--- NOTE | 2023-12-31 09:18 | WOUNDNOTE ---
wound photo: left lower leg
--- NOTE | 2023-12-31 09:49 | CASEMGMT ---
Social Work- SW met with pt to complete SDOH; findings in assessment. SW provided transportation resources. Pt reports plans to return to [facility]. Pt reports that he receives cleaning and laundry assistance once per week. SW called [facility] to confirm service connection. Pt CM is Lena Meyers [phone], fax: [phone]. SW called [facility] and left a voicemail to confirm pt return at d/c. ROSALIO Montague
[2023-12-31] MEDS: Ceftriaxone 2 GM in 0.9% Normal Saline (50mL MB+) 50 ML IV (10:38)
[2023-12-31 11:21] LABS: Bedside Glucose 209 mg/dL (74-106)
[2023-12-31] MEDS: Albuterol 2.5 MG/3 ML VIAL.NEB. INHALATION ×2 (12:47→19:13)
[2023-12-31 14:17] LABS: Vancomycin, Trough Level 14.5 ug/mL (5.0-15.0)
--- NOTE | 2023-12-31 14:32 | PHA.PHARE_ITS ---
Consult Antibiotic Management Pharmacy has been consulted to manage selected antibiotic: Vancomycin Type of Intervention Type of Consult: Follow-up Suspected Infection Suspected Infection: Skin/Soft tissue Labs Labs: Sodium 134 mmol/L (136-145) L 12/31/23 06:20 Potassium 3.9 mmol/L (3.5-5.1) 12/31/23 06:20 Chloride 100 mmol/L (98-107) 12/31/23 06:20 Carbon Dioxide 30.0 mmol/L (21.0-32.0) 12/31/23 06:20 Anion Gap 4 (5-15) L 12/31/23 06:20 BUN 8 mg/dL (7-18) 12/31/23 06:20 Creatinine 0.64 mg/dL (0.70-1.30) L 12/31/23 06:20 Est GFR (MDRD) Af Amer 164 mL/min (>60) 12/31/23 06:20 Est GFR (MDRD) Non-Af 136 mL/min (>60) 12/31/23 06:20 BUN/Creatinine Ratio 12.4 RATIO (10-20) 12/31/23 06:20 Glucose 180 mg/dL (74-106) H 12/31/23 06:20 Vancomycin Trough 14.5 ug/mL (5.0-15.0) 12/31/23 13:41 Pharmacy Plan for Drug Dosing Pharmacy Plan for Drug Dosing: VANCOMYCIN LEVEL RECEIVED Current Vancomycin Dose: 1500MG Q8 Number of Doses Received: 2 X 1500MG, 1 X 2000MG Vancomycin Level: 14.5 MG/DL Hours Since Last Dose: 7 Renal Function: SCr 0.64 mg/dL, CrCl 189 mL/min Renal Function Trend: stable Lab/Micro: wound cx with morganella, Group G strep, proetus Vancomycin Plan/Comments: 7 hour level is subtherapeutic at 14.5mg/dL (goal 15- 20 mg/dL). Will increase dose to 1750mg Q8 and get a level prior to 4th dose per policy. Pending Level: 01/01/24 @ 1430 Pharmacy Service will continue to monitor and adjust dosing as required.
--- NOTE | 2023-12-31 14:57 | CHAPLAIN ---
Type of Pastoral Visit _x__ Initial Visit ___ Follow-up Visit ___ On-call Visit ___ General Patient Visit ___ Spiritual Assessment ___ Family Conference ___ Bereavement ___ Rapid Response ___ Code Blue ___ Other (describe below) Pastoral Care Referral From _x__ Patient ___ Family ___ Nurse ___ Physician ___ Cotton Presser ___ Street Photographer ___ Other (describe below) Sacrament/Intervention ___ Active listening ___ Anointing ___ Restoration ___ Bereavement ___ Communion ___ Rosa exploration ___ ___ Life review ___ Prayer ___ Reconciliation ___ Sacrament of Sick _x__ Supportive presence ___ Wedding ___ Other (describe below) Pastoral Comments offered presence and support to patient; pt declares that he is fine and just relaxed about everything; pt says that someone is watching his pet and he has no other worries; declined offer of care
[2023-12-31] MEDS: Vancomycin HCl 1,750 MG in 0.9% Normal Saline (500mL Bag) 500 ML 250 MG IV ×2 (15:08→22:27)
[2023-12-31] MEDS: 0.9% Normal Saline (250mL Bag) 250 ML 15 ML IV (15:09)
[2023-12-31 16:44] LABS: Bedside Glucose 217 mg/dL (74-106)
[2023-12-31] MEDS: Budesonide Respules 0.5 MG/2 ML AMPUL.NEB. INHALATION (19:14)
[2023-12-31] MEDS: Senna/Docusate Sodium 1 Tablet 2 TABLET PO (20:54)
[2023-12-31] MEDS: Atorvastatin Calcium 80 MG Tablet PO (21:00)
[2023-12-31] MEDS: MELATONIN 10 MG TABLET PO (21:00)
[2023-12-31] MEDS: Montelukast 10 MG Tablet PO (21:00)
[2023-12-31] MEDS: traZODone 50 MG Tablet 25 MG PO (21:01)
[2023-12-31] MEDS: Tamsulosin HCl 0.4 MG Capsule PO (21:01)
[2023-12-31] MEDS: Insulin Glargine-YFGN 100 UNIT/ML Pen 38 UNIT SC (21:02)
[2023-12-31 21:15] LABS: Bedside Glucose 202 mg/dL (74-106)
[2024-01-01 02:19] VITALS: BP 122/68; PULSE 80; RESP 16; TEMP 36.6; O2SAT 92
[2024-01-01 05:15] VITALS: BMI 45.3
[2024-01-01] MEDS: Insulin Lispro 100 UNIT/ML INSULN.PEN SC ×2 (06:21→12:04)
[2024-01-01] MEDS: Vancomycin HCl 1,750 MG in 0.9% Normal Saline (500mL Bag) 500 ML 250 MG IV (06:21)
[2024-01-01] MEDS: Nystatin Powder 15gm Bottle 1 APPLIC TOPICAL (06:21)
[2024-01-01] MEDS: Levothyroxine 100 MCG Tablet 200 MCG PO (06:23)
[2024-01-01 06:49] LABS: Bedside Glucose 179 mg/dL (74-106)
[2024-01-01 07:37] VITALS: PULSE 80; RESP 18
[2024-01-01] MEDS: Budesonide Respules 0.5 MG/2 ML AMPUL.NEB. INHALATION (07:37)
[2024-01-01] MEDS: Albuterol 2.5 MG/3 ML VIAL.NEB. INHALATION ×2 (07:37→13:18)
[2024-01-01 08:41] LABS: Absolute Lymphocyte Count 1.35 X10^3/uL (0.83-4.51); Absolute Neutrophil Count 6.5 X10^3/uL (2.0-7.7); Basophil# 0.05 X10^3/uL; Basophil% 0.6 % (0-1); Eosinophil# 0.49 X10^3/uL; Eosinophils% 5.4 % (0-5); Hematocrit 37.7 % (40-54); Hemoglobin 11.4 g/dL (13.0-16.5); Lymphocyte # 1.35 X10^3/ul (0.83-4.51); Mean Corp Hgb Conc 30.2 g/dL (32-36); Mean Corpuscular Hgb 25.2 pg (27.0-32.0); Mean Corpuscular Volume 83.4 fL (80-94); Mean Platelet Vol. 9.5 fl (6.2-12.0); Monocyte# 0.55 X10^3/uL; Monocyte% 6.1 % (0-10); NRBC Flagged by Analyzer 0 % (0-5); Neutrophil # 6.54 X10^3/uL (2.7-7.7); Neutrophil % 72.3 % (47-70); Platelet Count 156 K/mm3 (150-450); RBC Distribution Width CV 18.9 % (11.6-14.6); RBC Distribution Width SD 57.1 fl (35.1-43.9); Red Blood Count 4.52 M/mm3 (4.6-6.2)
[2024-01-01 09:09] LABS: Anion Gap 4 (5-15); BUN 7 mg/dL (7-18); BUN/Creat Ratio 11.6 RATIO (10-20); Calcium,Total 8.6 mg/dL (8.5-10.1); Chloride 103 mmol/L (98-107); EST Glomerular Filtration Rate 146 mL/min (>60); Est Glom Filt Rate - Afr Amer 176 mL/min (>60); Estimated Creatinine Clearance 203.79 ml/min; Glucose 184 mg/dL (74-106); Magnesium 2.1 mg/dL (1.6-2.6); Potassium 4.4 mmol/L (3.5-5.1); Sodium Level 135 mmol/L (136-145)
[2024-01-01 09:26] VITALS: BP 134/69; PULSE 79; RESP 16; TEMP 36.6; O2SAT 92
[2024-01-01] MEDS: Ceftriaxone 2 GM in 0.9% Normal Saline (50mL MB+) 50 ML IV (09:27)
[2024-01-01] MEDS: Enoxaparin 40 MG/0.4 ML Syringe SC (09:28)
[2024-01-01] MEDS: Lisinopril 2.5 MG Tablet PO (09:28)
[2024-01-01] MEDS: Pantoprazole Sodium 20 MG Tablet PO (09:28)
[2024-01-01] MEDS: Sotalol Hydrochloride 80 MG Tablet 120 MG PO (09:28)
[2024-01-01 09:29] VITALS: BP 134/69; PULSE 79
[2024-01-01] MEDS: Metoprolol Tartrate 25 MG Tablet 12.5 MG PO (09:29)
[2024-01-01] MEDS: DULoxetine Hcl 60 MG Capsule PO (09:30)
[2024-01-01 11:37] LABS: Bedside Glucose 185 mg/dL (74-106)
[2024-01-01] MEDS: 0.9% Saline Lock 10 ML Syringe IV (12:05)
--- NOTE | 2024-01-01 12:27 | PCM.DC ---
Discharge Instructions Diet Discharge Diet: 1800 Calorie Control Diet Activity Discharge Activity: Return to Normal Activity Weight Bearing Status: Full weight bearing Follow Up Care Test Results: Test results from this visit will be discussed in further detail at your follow-up appointment, if applicable. Discharge Plan Admission Admit Date/Time: 12/30/23 17:07 Primary Reason for Your Visit: Cellulitis of the left leg Attending Provider: Chandu Pierson Primary Care Provider: Radha Barajas [employer] [facility] Consulting Providers: Marcellus Gunn; Ernesto Shultz Discharge Orders/Prescriptions Prescriptions: New ciprofloxacin HCl [Cipro] 500 mg tablet 500 mg PO BID Qty: 10 0RF Rx Instructions: start on 01/02/24 Continued sennosides-docusate sodium [Senna Plus] 8.6-50 mg tablet 2 tab PO QPM sotalol 120 mg tablet 120 mg PO Q12H tamsulosin 0.4 mg capsule 0.4 mg PO QHS acetaminophen [Tylenol Arthritis Pain] 650 mg tablet extended release 650 mg PO Q8H PRN (Reason: PAIN/FEVER) alum-mag hydroxide-simeth [Mylanta Maximum Strength] 400-400-40 mg/5 mL suspension 30 ml PO TID PRN (Reason: INDIGESTION ) guaifenesin [Mucinex] 600 mg tablet extended release 12hr 600 mg PO Q12H PRN (Reason: CONGESTION ) montelukast [Singulair] 10 mg tablet 10 mg PO QHS fluticasone propion-salmeterol [Advair HFA] 115-21 mcg/actuation HFA aerosol inhaler 2 puff inhalation BID melatonin 10 mg tablet 10 mg PO QHS (DME) blood sugar diagnostic Kit See Rx Instructions .Route Rx Instructions: As directed Deep Sea Nasal 0.65 % aerosol,spray 2 spray intranasal Q4H PRN (Reason: DRY NARES ) artifi.tears(hypromellose)(PF) 1.7 % drops with applicator 1 drp ophthalmic (eye) Q6H PRN (Reason: DRY EYES ) omeprazole 20 mg capsule,delayed release(DR/EC) 20 mg PO DAILY Ozempic 2 mg/dose (8 mg/3 mL) pen injector 2 mg subcut TH potassium chloride 20 MEQ tablet 20 meq PO DAILYCM 0RF metformin 1,000 mg tablet 1,000 mg PO BID duloxetine 60 mg capsule,delayed release(DR/EC) 60 mg PO BID albuterol sulfate 90 mcg/actuation HFA aerosol inhaler 2 puff INHALATION Q4H PRN (Reason: SHORTNESS OF BREATH/WHEEZING ) trazodone 50 mg tablet 25 mg PO QHS atorvastatin 80 mg tablet 80 mg PO QHS levothyroxine 200 mcg tablet 200 mcg PO DAILY lisinopril 2.5 mg tablet 2.5 mg PO DAILY insulin glargine [Lantus Solostar U-100 Insulin] 100 unit/mL (3 mL) insulin pen 38 unit subcut QHS metoprolol tartrate 25 mg tablet 12.5 mg PO BID AmeriPhor Ointment 1 applic topical QHS Rx Instructions: APPLY ONE APPLICATION TOPICALLY TO BILATERAL LOWER EXTREMITIES AT BEDTIME nystatin 100,000 unit/gram powder 1 applic topical TID PRN (Reason: REDNESS/RASH) Rx Instructions: APPLY ONE APPLICATION TOPICALLY TO ABDOMINAL FOLDS THREE TIMES DAILY NEEDED FOR REDNESS/RASH furosemide 40 MG tablet 40 mg PO BID Discontinued omega-3 fatty acids 1,000 mg capsule 2,000 mg PO BID Referrals / Follow Up: Radha Barajas [employer], [facility] [facility] [facility] [Primary Care Provider] - Within 2 Weeks Disposition Disposition (needs filled in before D/C Order can be placed): Assisted Living
--- NOTE | 2024-01-01 12:43 | PCM.DC.SUM ---
Providers Date of Admission: 12/30/23 Date of Discharge: 01/01/24 Primary Care Physician: Radha Barajas, [facility] Reason For Visit: CELLULITIS Diagnosis Discharge Diagnosis (1) Cellulitis: Status: Acute Code(s): L03.90 - Cellulitis, unspecified Plan 1. Left lower leg cellulitis #2 coronary artery disease #3 type 2 diabetes #4 morbid obesity #5 essential hypertension #6 lactic acidosis-etiology unclear, not related to sepsis Medications at Discharge Home Medications potassium chloride 20 mEq tablet,extended release(part/cryst) 20 meq PO DAILYCM SUPPLEMENT 04/23/19 metformin 1,000 mg tablet 1,000 mg PO BID DIABETES 01/18/21 sennosides 8.6 mg-docusate sodium 50 mg tablet (Senna Plus) 2 tab PO QPM CONSTIPATION 02/05/21 sotalol 120 mg tablet 120 mg PO Q12H HEART ARRHYTHMIA 02/05/21 tamsulosin 0.4 mg capsule 0.4 mg PO QHS PROSTATE 02/05/21 albuterol sulfate 90 mcg/actuation aerosol inhaler 2 puff inhalation Q4H PRN SHORTNESS OF BREATH/WHEEZING 02/11/21 duloxetine 60 mg capsule,delayed release 60 mg PO BID DEPRESSION 05/22/21 montelukast 10 mg tablet (Singulair) 10 mg PO QHS ALLERGIES 01/10/22 acetaminophen 650 mg tablet,extended release (Tylenol Arthritis Pain) 650 mg PO Q8H PRN PAIN/FEVER 02/04/22 aluminum-mag hydroxide-simethicone 400 mg-400 mg-40 mg/5 mL oral susp (Mylanta Maximum Strength) 30 ml PO TID PRN INDIGESTION 02/04/22 guaifenesin 600 mg tablet, extended release 12 hr (Mucinex) 600 mg PO Q12H PRN CONGESTION 02/04/22 fluticasone propionate 115 mcg-salmeterol 21 mcg/actuation HFA inhaler (Advair HFA) 2 puff inhalation BID COPD 07/31/22 melatonin 10 mg tablet 10 mg PO QHS SLEEP 07/31/22 artifi.tears(hypromellose)(PF) 1.7 % eye drops with applicator 1 drp ophthalmic (eye) Q6H PRN DRY EYES 11/25/22 blood sugar diagnostic 11/25/22 sodium chloride 0.65 % nasal spray aerosol (Deep Sea Nasal) 2 spray intranasal Q4H PRN DRY NARES 11/25/22 omeprazole 20 mg capsule,delayed release 20 mg PO DAILY GERD 10/22/23 semaglutide 2 mg/dose (8 mg/3 mL) subcutaneous pen injector (Ozempic) 2 mg subcut TH DIABETES 10/22/23 trazodone 50 mg tablet 25 mg PO QHS SLEEP 11/05/23 atorvastatin 80 mg tablet 80 mg PO QHS CHOLESTEROL 11/18/23 insulin glargine 100 unit/mL (3 mL) subcutaneous pen (Lantus Solostar U-100 Insulin) 38 unit subcut QHS DIABETES 11/18/23 levothyroxine 200 mcg tablet 200 mcg PO DAILY THYROID 11/18/23 lisinopril 2.5 mg tablet 2.5 mg PO DAILY BLOOD PRESSURE 11/18/23 furosemide 40 mg tablet 40 mg PO BID EDEMA 12/30/23 metoprolol tartrate 25 mg tablet 12.5 mg PO BID BLOOD PRESSURE 12/30/23 mineral oil-hydrophil petrolat topical ointment (AmeriPhor topical ointment) 1 applic topical QHS DRY SKIN 12/30/23 nystatin 100,000 unit/gram topical powder 1 applic topical TID PRN REDNESS/RASH 12/30/23 ciprofloxacin HCl 500 mg tablet (Cipro) 500 mg PO BID #10 tabs 01/01/24 Hospital Course Operations None Procedures None Summary of Care Provided Minutes Spent on Discharge: 32 Hospital Course: This 58-year-old white male was seen in the emergency room at [facility] with concerns regarding a possible cellulitis of his legs. He noted 2 to 3 weeks of increased redness and drainage from the left lower extremity along with redness of the right lower extremity. Workup in the emergency room included a CBC which was abnormal for a white blood cell count of 11.1 and hemoglobin of 11.5. Chemistry profile was remarkable for glucose of 253, patient's lactic acid was elevated at 2.5. Patient had evidence of stasis dermatitis of both lower extremities and there was an open area on the patient's left lower leg. Patient was admitted to [place] [address], he was placed on IV antibiotics, cultures grew out Morganella, strep group C, and Proteus mirabilis. He was seen in consultation by the wound care nurse. On 01/01/2024, patient was seen and examined: On examination he appeared in good health and spirits. Patient was morbidly obese. Vital signs as documented. Skin warm and dry and without overt rashes. Neck without JVD, neck was supple, trachea midline, thyroid was normal. Lungs clear bilaterally, normal air movement was noted. Heart exam notable for regular rhythm, normal sounds and absence of murmurs, rubs or gallops. Abdomen unremarkable and without evidence of organomegaly, masses, or abdominal aortic enlargement. Bowel sounds are present, abdomen is not distended. Extremities there is noted to be generalized edema of both lower extremities, stasis dermatitis changes were noted over the patient's lower legs, there is a small open area present over the anterior aspect of the patient's left lower leg. Neuro: Cranial nerves II through XII are grossly intact, no focal motor deficits were noted, sensation to light touch and pinprick intact, motor exam 5/5 throughout. Psych: Patient is alert and oriented x3, he does not appear anxious or depressed, he does not appear agitated. Patient was felt to be stable for discharge to assisted living on 01/01/2024. Weight / BMI Weight Weight: 152 kg Body Mass Index (BMI) 45.3 ABG / Lab / Microbiology Data 01/01/24 08:22 01/01/24 08:22 Laboratory: Laboratory Results - last 24 hr 12/31/23 13:41: Vancomycin Trough 14.5 12/31/23 16:08: POC Glucose 217 H 12/31/23 20:52: POC Glucose 202 H 01/01/24 06:20: POC Glucose 179 H 01/01/24 08:22: WBC 9.0, RBC 4.52 L, Hgb 11.4 L, Hct 37.7 L, MCV 83.4, MCH 25.2 L, MCHC 30.2 L, RDW Std Deviation 57.1 H, RDW Coeff of Jovany 18.9 H, Plt Count 156, MPV 9.5, Immature Gran % (Auto) 0.600, Neut % (Auto) 72.3 H, Lymph % (Auto) 15.0 L, Forrest % (Auto) 6.1, Eos % (Auto) 5.4 H, Baso % (Auto) 0.6, Absolute Neuts (auto) 6.5, Absolute Lymphs (auto) 1.35, Nucleated RBC % 0, Sodium 135 L, Potassium 4.4, Chloride 103, Carbon Dioxide 28.0, Anion Gap 4 L, BUN 7, Creatinine 0.60 L, Estim Creat Clear Calc 203.79, Est GFR (MDRD) Af Amer 176, Est GFR (MDRD) Non-Af 146, BUN/Creatinine Ratio 11.6, Glucose 184 H, Calcium 8.6, Phosphorus 3.0, Magnesium 2.1 01/01/24 11:15: POC Glucose 185 H D/C Instructions Discharge Diet: 1800 Calorie Control Diet Weight Bearing Status: Full weight bearing Meaningful Use Info Meaningful Use Meaningful Use Diagnoses (Choose all that apply): None applicable Ischemic Stroke Statin Dosing Therapy Reference: STATIN DOSE THERAPY REFERENCE: * Patients > 75 years receive moderate or high dose statin therapy. * Patients 75 years or YOUNGER should receive HIGH intensity statin dose unless contraindicated. You will be required to document reason for non-treatment if statin daily dose does not meet guidelines. HIGH DOSE STATIN THERAPY DAILY Atorvastatin > than or = to 40 mg Rosuvastatin > than or = to 20 mg Amlodipine + Atorvastatin > than or = to 2.5/40 mg Ezetimibe + Simvastatin 10/80 mg Simvastatin 80mg Discharge Plan Admission Admit Date/Time: 12/30/23 17:07 Primary Reason for Your Visit: Cellulitis of the left leg Attending Provider: Chandu Pierson Primary Care Provider: Radha Barajas [facility] Consulting Providers: Marcellus Gunn; Ernesto Shultz Discharge Orders/Prescriptions Prescriptions: New ciprofloxacin HCl [Cipro] 500 mg tablet 500 mg PO BID Qty: 10 0RF Rx Instructions: start on 01/02/24 Continued sennosides-docusate sodium [Senna Plus] 8.6-50 mg tablet 2 tab PO QPM sotalol 120 mg tablet 120 mg PO Q12H tamsulosin 0.4 mg capsule 0.4 mg PO QHS acetaminophen [Tylenol Arthritis Pain] 650 mg tablet extended release 650 mg PO Q8H PRN (Reason: PAIN/FEVER) alum-mag hydroxide-simeth [Mylanta Maximum Strength] 400-400-40 mg/5 mL suspension 30 ml PO TID PRN (Reason: INDIGESTION ) guaifenesin [Mucinex] 600 mg tablet extended release 12hr 600 mg PO Q12H PRN (Reason: CONGESTION ) montelukast [Singulair] 10 mg tablet 10 mg PO QHS fluticasone propion-salmeterol [Advair HFA] 115-21 mcg/actuation HFA aerosol inhaler 2 puff inhalation BID melatonin 10 mg tablet 10 mg PO QHS (DME) blood sugar diagnostic Kit See Rx Instructions .Route Rx Instructions: As directed Deep Sea Nasal 0.65 % aerosol,spray 2 spray intranasal Q4H PRN (Reason: DRY NARES ) artifi.tears(hypromellose)(PF) 1.7 % drops with applicator 1 drp ophthalmic (eye) Q6H PRN (Reason: DRY EYES ) omeprazole 20 mg capsule,delayed release(DR/EC) 20 mg PO DAILY Ozempic 2 mg/dose (8 mg/3 mL) pen injector 2 mg subcut TH potassium chloride 20 MEQ tablet 20 meq PO DAILYCM 0RF metformin 1,000 mg tablet 1,000 mg PO BID duloxetine 60 mg capsule,delayed release(DR/EC) 60 mg PO BID albuterol sulfate 90 mcg/actuation HFA aerosol inhaler 2 puff INHALATION Q4H PRN (Reason: SHORTNESS OF BREATH/WHEEZING ) trazodone 50 mg tablet 25 mg PO QHS atorvastatin 80 mg tablet 80 mg PO QHS levothyroxine 200 mcg tablet 200 mcg PO DAILY lisinopril 2.5 mg tablet 2.5 mg PO DAILY insulin glargine [Lantus Solostar U-100 Insulin] 100 unit/mL (3 mL) insulin pen 38 unit subcut QHS metoprolol tartrate 25 mg tablet 12.5 mg PO BID AmeriPhor Ointment 1 applic topical QHS Rx Instructions: APPLY ONE APPLICATION TOPICALLY TO BILATERAL LOWER EXTREMITIES AT BEDTIME nystatin 100,000 unit/gram powder 1 applic topical TID PRN (Reason: REDNESS/RASH) Rx Instructions: APPLY ONE APPLICATION TOPICALLY TO ABDOMINAL FOLDS THREE TIMES DAILY NEEDED FOR REDNESS/RASH furosemide 40 MG tablet 40 mg PO BID Discontinued omega-3 fatty acids 1,000 mg capsule 2,000 mg PO BID Referrals / Follow Up: Radha Barajas [facility], [facility] [Primary Care Provider] - Within 2 Weeks Disposition Disposition (needs filled in before D/C Order can be placed): Assisted Living Charges/Coding Visit Charges Inpatient E&M: 23794 Disch Hosp >30min
[2024-01-01 13:18] VITALS: PULSE 76; RESP 18
--- NOTE | 2024-01-01 13:29 | CASEMGMT ---
Social Work- Pt determined to be medically ready for d/c by physician. SW called [facility] for transportation. Pt to be picked up between 1:30-3:30. Confirmation #: [id number]. Discharge paperwork faxed to [facility]. SW called to confirm receipt and provide d/c timeframe. Discharge paperwork also faxed to [facility] and a voicemail left to advise of discharge. Pt and bedside nurse notified of discharge time. ROSALIO Montague
--- NOTE | 2024-01-01 14:51 | PHA.DC.MR.R ---
Pharmacy PA Med Reconciliation Pharmacy Service has performed discharge medication reconciliation for this patient. The patient's discharge medication list was reviewed for discrepancies and discrepancies were resolved. Medications at Discharge Home Medications potassium chloride 20 mEq tablet,extended release(part/cryst) 20 meq PO DAILYCM SUPPLEMENT 04/23/19 metformin 1,000 mg tablet 1,000 mg PO BID DIABETES 01/18/21 sennosides 8.6 mg-docusate sodium 50 mg tablet (Senna Plus) 2 tab PO QPM CONSTIPATION 02/05/21 sotalol 120 mg tablet 120 mg PO Q12H HEART ARRHYTHMIA 02/05/21 tamsulosin 0.4 mg capsule 0.4 mg PO QHS PROSTATE 02/05/21 albuterol sulfate 90 mcg/actuation aerosol inhaler 2 puff inhalation Q4H PRN SHORTNESS OF BREATH/WHEEZING 02/11/21 duloxetine 60 mg capsule,delayed release 60 mg PO BID DEPRESSION 05/22/21 montelukast 10 mg tablet (Singulair) 10 mg PO QHS ALLERGIES 01/10/22 acetaminophen 650 mg tablet,extended release (Tylenol Arthritis Pain) 650 mg PO Q8H PRN PAIN/FEVER 02/04/22 aluminum-mag hydroxide-simethicone 400 mg-400 mg-40 mg/5 mL oral susp (Mylanta Maximum Strength) 30 ml PO TID PRN INDIGESTION 02/04/22 guaifenesin 600 mg tablet, extended release 12 hr (Mucinex) 600 mg PO Q12H PRN CONGESTION 02/04/22 fluticasone propionate 115 mcg-salmeterol 21 mcg/actuation HFA inhaler (Advair HFA) 2 puff inhalation BID COPD 07/31/22 melatonin 10 mg tablet 10 mg PO QHS SLEEP 07/31/22 artifi.tears(hypromellose)(PF) 1.7 % eye drops with applicator 1 drp ophthalmic (eye) Q6H PRN DRY EYES 11/25/22 blood sugar diagnostic 11/25/22 sodium chloride 0.65 % nasal spray aerosol (Deep Sea Nasal) 2 spray intranasal Q4H PRN DRY NARES 11/25/22 omeprazole 20 mg capsule,delayed release 20 mg PO DAILY GERD 10/22/23 semaglutide 2 mg/dose (8 mg/3 mL) subcutaneous pen injector (Ozempic) 2 mg subcut TH DIABETES 10/22/23 trazodone 50 mg tablet 25 mg PO QHS SLEEP 11/05/23 atorvastatin 80 mg tablet 80 mg PO QHS CHOLESTEROL 11/18/23 insulin glargine 100 unit/mL (3 mL) subcutaneous pen (Lantus Solostar U-100 Insulin) 38 unit subcut QHS DIABETES 11/18/23 levothyroxine 200 mcg tablet 200 mcg PO DAILY THYROID 11/18/23 lisinopril 2.5 mg tablet 2.5 mg PO DAILY BLOOD PRESSURE 11/18/23 furosemide 40 mg tablet 40 mg PO BID EDEMA 12/30/23 metoprolol tartrate 25 mg tablet 12.5 mg PO BID BLOOD PRESSURE 12/30/23 mineral oil-hydrophil petrolat topical ointment (AmeriPhor topical ointment) 1 applic topical QHS DRY SKIN 12/30/23 nystatin 100,000 unit/gram topical powder 1 applic topical TID PRN REDNESS/RASH 12/30/23 ciprofloxacin HCl 500 mg tablet (Cipro) 500 mg PO BID #10 tabs 01/01/24
[2024-01-01 15:12] VITALS: BP 156/96; PULSE 79; RESP 18; TEMP 36.6; O2SAT 96
== END 2024-01-01 15:17 | disposition home or self-care (01) | DRG 638 ==
LOC: ED 13:07 → MS3 17:00
PROVIDERS: Internal Medicine; Admitting Provider Internal Medicine; Emergency Provider Emergency Medicine; PCP Nurse Practitioner Adult Health; Visit Provider Internal Medicine
DX: E11.628 Type 2 diabetes mellitus with other skin complications (principal); L03.116 Cellulitis of left lower limb; E87.20 Acidosis, unspecified; L03.115 Cellulitis of right lower limb; Z68.41 Body mass index [BMI] 40.0-44.9, adult; L97.921 Non-pressure chronic ulcer of unspecified part of left lower leg limited to breakdown of skin; I50.32 Chronic diastolic (congestive) heart failure; E11.622 Type 2 diabetes mellitus with other skin ulcer; B96.4 Proteus (mirabilis) (morganii) as the cause of diseases classified elsewhere; B95.4 Other streptococcus as the cause of diseases classified elsewhere; J44.9 Chronic obstructive pulmonary disease, unspecified; I11.0 Hypertensive heart disease with heart failure; E66.01 Morbid (severe) obesity due to excess calories; Z79.4 Long term (current) use of insulin; E89.0 Postprocedural hypothyroidism; I89.0 Lymphedema, not elsewhere classified; E78.5 Hyperlipidemia, unspecified; I25.10 Atherosclerotic heart disease of native coronary artery without angina pectoris; Z95.5 Presence of coronary angioplasty implant and graft; Z66 Do not resuscitate; Z79.51 Long term (current) use of inhaled steroids; Z51.5 Encounter for palliative care; Z87.891 Personal history of nicotine dependence; Z79.84 Long term (current) use of oral hypoglycemic drugs
CPT/HCPCS: 36415; 73700; 80048; 80202; 82962; 83605; 83735; 84100; 85025; 87640; 93971; 94640; 97802; 99285; J7030; J7040; J7050; A4216; J0696

== ENCOUNTER 2024-03-10 13:30 | Outpatient (RCR) | payer MEDICARE, MEDICAID, SELFPAY ==
--- NOTE | 2024-01-29 15:21 | HP.PTEVAL_ITS ---
Patient's Visit Information Visit Information Visit Information: ZAK HOYT is a 58 year old M referred to Physical Therapy by UNRULY Tamez with a diagnosis of weakness/falls. Date of Evaluation: 01/29/24 Physical Therapist: Stephanie Lorenzo MPT Visit Plan Frequency: 2x /Week Duration: 3 Months Plan: 2X/ week for 12 weeks for endurance (increase walking capacity), transfers, stairs, LE strength, and HEP Subjective Subjective: Pt has no endurance. He still gets winded with walking. If he tries to get a quicker pace he gets winded. This has always been going on and basically getting worse. He has stairs at home and he can alternate feet and he uses 1 railing. He has to make sure he plants his feet going up and down curb steps. He stumbles if he does not pay attention to his feet. Sit to stand and uses his legs to push up he might get a little unsteady when he stands up. He has had a fall in the past but none recently. He has some trouble getting out of a car. He sleeps sitting up. Pain Headache: Pain Intensity (Out of 10): 3 Objective Objective: R hip flex 12.7 and L 11.4 R knee ext 15.1 and l 17 R knee flex 9.7 and L 10.8 Gait: walked 49 seconds (88 feet) and felt tired and asked to sit due to starting to get winded. Walks with WBOS, decrease stride length and decrease heel to toe. Able to walk with horizontal head turns with no dizziness at slow pace Pt is able to stand for 30 sec with EO/EC WITH NO LOB Sit to stand: able to get up slowly on first attempt with using hands on thighs and very Wide legs. Stairs: up and down varying reciprocal and step two pattern using 2 hand rails to help pull self up Balance/Special Test Scores Lower Extremity Functional Score: 44 Goals Goal 1:: I HEP Goal Time Frame: 6-8 Weeks Goal 2:: Be able to walk entire lap around inside building (around 340 feet) without having to take a rest break (at eval walked 88 feet in 49 seconds) Goal Time Frame: 6-8 Weeks Goal 3:: Be able to perform 10 sit to stands with ease and no SOB Goal Time Frame: 6-8 Weeks Goal 4:: Stairs: up and down recip with 1-2 hand rail with ease Goal Time Frame: 6-8 Weeks Rehabilitation Potential Rehabilitation Potential: Good Anticipated Interventions Patient/Client Instruction: Educate patient on: Condition and Plan of Care For the Purpose of:: To improve muscle performance and motor function, To improve ability to perform ADL's, To increase tolerance to activity/condition /position, To improve performance and independence with ADL's, To decrease level of supervision to perform tasks, To improve ability of physical actions for home/community/work/leisure, To improve gait and locomotor functions, To decrease soft tissue restriction, To increase flexibility/ROM, To improve endurance, To improve balance and To improve safety with gait Therapeutic Exercise to Include: Strength training, Endurance training, Balance training, Postural training, Flexibilty training, Gait and locomotor training, Active ROM and Dynamic Lumbar Stabilization For the Purpose of:: To improve muscle performance and motor function, To improve ability to perform ADL's, To increase tolerance to activity/condition/position, To improve performance and independence with ADL's, To decrease level of supervision to perform tasks, To improve ability of physical actions for home/community/work/leisure, To improve gait and locomotor functions, To improve health of tissue, To decrease soft tissue restriction, To increase flexibility/ROM, To improve endurance and To improve balance Functional Training to Include: Gait training For the Purpose of:: To improve gait and locomotor functions and To improve safety with gait Text: Thank you for the opportunity to evaluate your patient. For Medicare and Medicare HMO plans, please review the plan of care and approve it. It will need to be FAXED BACK to us at [phone] for Medicare purposes. For Medicare only, by signing this I certify the plan of care. Please let me know if there are questions or concerns regarding this plan of care. Physician Signature: Date:
--- NOTE | 2024-03-10 13:55 | HP.PTDCSUM_ITS ---
Discharge Summary D/C summary: It has been my pleasure to treat ZAK HOYT referred by Radha Barajas NP-C, with the diagnosis of weakness/falls for a total of 9 visit(s). Discharge Date: 03/10/24 Please see the following information for a summary of their discharge status. Subjective Subjective: Pt feels that he is getting stronger and his walking time is better. He is still winded and struggles with that. He sets his own pace and he does well. He walks a lot at home.... to the [facility] and back. Pain Headache: Pain Intensity (Out of 10): 0 Overall Improvement % Improvement: 70 Objective Objective/Function: Sit to stands: X 10 with light SOB Stairs: up and down recip with 2 hand rails (he struggles with his L foot ascending the step but this is nothing new) Goals Goal 1:: I HEP Goal Progress: Goal Met Goal 2:: Be able to walk entire lap around inside building (around 340 feet) without having to take a rest break (at eval walked 88 feet in 49 seconds) Goal Progress: Goal Met Goal 3:: Be able to perform 10 sit to stands with ease and no SOB Goal Progress: Goal Met Goal 4:: Stairs: up and down recip with 1-2 hand rail with ease Goal Progress: Goal Met Plan Plan: 2X/ week for 12 weeks for endurance (increase walking capacity), transfers, stairs, LE strength, and HEP D/C Information Discharge Comments: DC PT to walking program at home d/c sentence: If there are questions or concerns regarding this patient's physical therapy, please feel free to call me at [phone]. Thank you for the referral of this patient. Sincerely, Stephanie Lorenzo, MPT Balance/Gait/Functional tests Balance/Special Test Scores Lower Extremity Functional Score: 52 TUG Test Time Seconds: 12.24 Tug Test: <20 sec.=mostly independent 30 Second Chair Rise Test Seconds: 8 6 Minute Walk Test: 210 Improvement % Improvement: 70
== END 2024-03-10 19:00 | disposition home or self-care (01) ==
LOC: PT 13:30
PROVIDERS: PCP Nurse Practitioner Adult Health; Referring Provider Nurse Practitioner Adult Health; Visit Provider Nurse Practitioner Adult Health
DX: R53.1 Weakness (principal); Z91.81 History of falling
CPT/HCPCS: 97110; 97161; 97530

== ENCOUNTER 2024-03-29 08:25 | Inpatient (IN) | payer MEDICARE, MEDICAID, SELFPAY ==
[2024-03-29 07:57] VITALS: BMI 44.4
[2024-03-29 08:06] VITALS: BP 111/57; PULSE 110; RESP 18; TEMP 36.4; O2SAT 97
--- OUTSIDE RECORDS SUMMARY | 2024-03-29 08:08 | XMS RPT_ITS | CCD ---
Author Organization [facility] Care Team Providers Care Drive Worker Name Role Phone RABIA POE, (RE EXAMINER) Attending FRANCHESKA Wilson (RE EXAMINER) Referring RABIA Frankel, (RE EXAMINER) Referring RABIA Santana, (RE EXAMINER) Attending FRANCHESKA Wilson (RE EXAMINER) Referring RABIA Frankel, (RE EXAMINER) Attending RABIA Santana, (RE EXAMINER) Attending RABIA Santana, (RE EXAMINER) Attending LUKAS Serna Referring Reinaldo Serrano MD Primary Care Provider HONORIO OVALLE Referring Unavailable REINALDO PAEZ Primary Care Unavailable CHIDI LIU Admitting Unavailable CHIDI ARROYO Consulting Unavailable AIXA PAEZ Attending EDY Logan Referring Unavailable REINALDO PAEZ Primary Care Unavailable Medications Current Medications Medication Drug Class(es) Dates Sig (Normalized) Sig (Original) acetaminophen 325 mg oral tablet (2 sources) take 2 tablets by mouth every eight hours as needed acetaminophen (TYLENOL) 325 mg tablet Take 650 mg by mouth every 8 hours as needed for pain or fever (specify temp.). 0 Active [id number] 200 actuat albuterol 0.09 mg/actuat metered dose inhaler (2 sources) beta2-Adrenergic Agonist take 2 puff(s) by inhalation every four hours as needed for wheezing albuterol HFA (PROVENTIL HFA, VENTOLIN HFA) 90 mcg/actuation inhaler Inhale 2 Puffs as instructed every 4 hours as needed for wheezing/shortness of breath. 0 Active aluminum hydroxide 80 mg/ml / magnesium hydroxide 80 mg/ml / simethicone 8 mg/ml oral suspension (2 sources) take 15 mL by mouth every three hours as needed aluminum & magnesium hydroxide-simethico ne (MYLANTA MAXIMUM STRENGTH) 400-400-40 mg/5 mL suspension Take 15 mL by mouth every 3 hours as needed (indigestion). 0 Active aspirin 81 mg delayed release oral tablet (2 sources) Platelet Aggregation Inhibitor, Nonsteroidal Anti-inflammatory Drug Start: 01-24-2021 take 1 tablet by mouth once daily aspirin, enteric coated (ASPIRIN, ENTERIC COATED) 81 mg EC tablet Take 1 tablet by mouth once daily. 7 tablet 0 01/24/2021 Active atorvastatin 80 mg oral tablet (2 sources) HMG-CoA Reductase Inhibitor Start: 01-24-2021 take 1 tablet by mouth once daily atorvastatin (LIPITOR) 80 mg tablet Take 1 tablet by mouth once daily. 30 tablet 2 01/24/2021 Active benzocaine 0.2 mg/mg oral gel (2 sources) Standardized Chemical Allergen benzocaine 20 % gel Use 1 application as instructed as needed (sore gums). One dental application every 4 hours as needed for sore gums (supervised self-administration ) 0 Active Blood-Glucose Meter (FREESTYLE LITE METER) monitoring kit (2 sources) Start: 09-01-2014 Blood-Glucose Meter (FREESTYLE LITE METER) monitoring kit Freestyle LITE Meter Kit - 1 Each 0 09/01/2014 Active Start: 09-01-2014 Blood-Glucose Meter (FREESTYLE LITE METER) monitoring kit Freestyle LITE Meter Kit - 1 Each 0 09/01/2014 Suspended carboxymethylcellulose sodium 10 mg/ml ophthalmic solution (2 sources) carboxymethylcel lulose sodium (ARTIFICIAL TEARS) 1 % drops Use 1 Drop in both eyes as needed (dry eyes). 0 Active citalopram 20 mg oral tablet (2 sources) Serotonin Reuptake Inhibitor take 1 tablet by mouth once daily citalopram (CELEXA) 20 mg tablet Take 20 mg by mouth once daily. 0 Active docusate sodium 50 mg / sennosides, residential 8.6 mg oral tablet (2 sources) take 2 tablets by mouth once daily at bedtime senna-docusate (SENNA-S) 8.6-50 mg per tablet Take 2 tablets by mouth daily at bedtime. 0 Active DULoxetine 60 mg delayed release oral capsule (2 sources) Serotonin and Norepinephrine Reuptake Inhibitor take 1 capsule by mouth twice daily DULoxetine (CYMBALTA) 60 mg capsule Take 60 mg by mouth two times a day. 0 Active Fish Oil-[place]-3 Fatty Acids (FISH OIL) 340-1,000 mg cap (2 sources) take 2 capsules by mouth once daily Fish Oil-[place]-3 Fatty Acids (FISH OIL) 340-1,000 mg cap Take 2 capsules by mouth once daily. 0 Active take 2 capsules by mouth once da nguyen Fish Oil-[place]-3 Fatty Acids (FISH OIL) 340-1,000 mg cap Take 2 capsules by mouth once daily. 0 Suspended 120 actuat fluticasone propionate 0.115 mg/actuat / salmeterol 0.021 mg/actuat metered dose inhaler (2 sources) Corticosteroid, beta2-Adrenergic Agonist take 2 puff(s) by inhalation twice daily fluticasone-salmeterol HFA (ADVAIR HFA) 115-21 mcg/actuation inhaler Inhale 2 Puffs as instructed two times a day. 0 Active 60 actuat formoterol fumarate 0.005 mg/actuat / mometasone furoate 0.1 mg/actuat metered dose inhaler (2 sources) Corticosteroid, beta2-Adrenergic Agonist take 2 puff(s) by inhalation twice daily mometasone-formoterol (DULERA) 100-5 mcg/actuation inhaler Inhale 2 Puffs as instructed twice daily. 0 Active furosemide 40 mg oral tablet (2 sources) Loop Diuretic Start : 11-21 take 1 tablet by mouth once daily as needed for edema, then take 3 tablets by mouth once daily as needed for edema furosemide (LASIX) 40 mg tablet Take 1 tablet by mouth once daily as needed (Lower extremity edema if persisting despite leg elevation and/or COREY hose, or greater than 3 lb weight gain within days). 0 11/22/2023 Active take 1 tablet by mouth twice josé miguel ly furosemide (LASIX) 40 mg tablet Take 40 mg by mouth twice daily. 0 Suspended 0.2 ml glucagon 5 mg/ml auto-injector (2 sources) Antihypoglycemic Agent glucagon (GVOKE HYPOPEN 1-PACK) 1 mg/0.2 mL AutoInjector Inject 1 Dose subcutaneously as needed (for unresponsive hypoglycemia). 0 Active guaiFENesin 20 mg/ml oral solution (4 sources) take 200 mg by mouth once daily at bedtime for cough guaiFENesin (ROBITUSSIN) 100 mg/5 mL syrup Take 200 mg by mouth daily at bedtime. For cough 0 Active guaiFENesin (MUC INEX) 600 mg 12 hr tablet Take 1,200 mg by mouth twice daily as needed (congestion). 0 Active insulin glargine 100 unt/ml injectable solution (2 sources) Insulin Analog inject 38 [IU] by subcutaneous injection once daily at bedtime insulin glargine (LANTUS U-100 INSULIN) 100 unit/mL injection Inject 38 Units subcutaneously daily at bedtime. 0 Active levothyroxine sodium 0.025 mg oral tablet (5 sources) l-Thyroxine Start: 11-22-19 24 take 1 tablet by mouth once daily in the morning levothyroxine (SYNTHROID) 25 mcg tablet Take 1 tablet by mouth daily at 6 am. Add to 200 mcg tablets for total 225 mcg 30 tablet 1 11/23/2023 Active levothyroxine (S YNTHROID) 200 mcg tablet Take 200 mcg by mouth daily before breakfast. Add to 25 mcg tablet for a total dose of 225 mcg each morning. 0 Active levothyroxine (S YNTHROID) 25 mcg tablet Take 25 mcg by mouth daily before breakfast. Add to 200 mcg tablet for a total dose of 225 mcg each morning. 0 Suspended melatonin 3 mg oral tablet (2 sources) Start: 11-22-2023 take 1 tablet by mouth once daily at bedtime melatonin 3 mg tablet Take 1 tablet by mouth daily at bedtime. 30 tablet 0 11/22/2023 Active take 1 tablet by roosevelt th once daily at bedtime melatonin 10 mg tab Take 10 mg by mouth daily at bedtime. 0 Suspended metFORMIN hydrochloride 1000 mg oral tablet (2 sources) Biguanide take 1 tablet by mouth twice daily metFORMIN (GLUCOPHAGE) 1,000 mg tablet Take 1,000 mg by mouth twice daily with meals. Give one tablet in the morning and one tablet in the afternoon (supervised self-administration) 0 Active metoprolol tartrate 100 mg oral tablet (2 sources) beta-Adrenergic Ligia Start: 024 take 1 tablet by mouth twice daily metoprolol tartrate, short acting, (LOPRESSOR) 100 mg tablet Take 1 tablet by mouth two times a day. 60 tablet 0 11/22/2023 Active metoprolol tartr ate, short acting, (LOPRESSOR) 25 mg tablet Take 12.5 mg by mouth two times a day. For frequent PVCs. Hold medication if pulse is 0 Suspended montelukast 10 mg oral tablet (2 sources) Leukotriene Receptor Antagonist take 1 tablet by mouth once daily at bedtime montelukast (SINGULAIR) 10 mg tablet Take 10 mg by mouth daily at bedtime. 0 Active omeprazole 20 mg delayed release oral capsule (2 sources) Proton Pump Inhibitor take 1 capsule by mouth once daily omeprazole (PRILOSEC) 20 mg capsule Take 20 mg by mouth once daily. 0 Active polyethylene glycol 3350 18930 mg powder for oral solution (2 sources) Osmotic Laxative polyethylene gl ycol 3350 17 gram packet Take 17 g by mouth once daily as needed for constipation. Dissolve dose in 4 - 8 ounces of liquid and take as directed. 0 Active microencapsulated potassium chloride 20 meq extended release oral tablet (2 sources) Start: 11-22-19 24 potassium chloride ER (KLOR-CON) 20 mEq tablet Take 1 tablet by mouth as directed. Only need to take if taking lasix/furosemide 0 11/22/2023 Active potassium chlori de ER (K-DUR, KLOR-CON) 20 mEq tablet Take 20 mEq by mouth daily in the late morning. 0 Suspended 1 mg dose 1.5 ml semaglutide 1.34 mg/ml pen injector (2 sources) inject 2 mg by subcu taneous injection every week semaglutide (OZEMPIC) 1 mg/0.75 ml subcutaneous pen injector Inject 2 mg subcutaneously one time a week. 0 Active Sodium Chloride (2 sources) sodium chloride (OCEAN NASAL MIST NASAL) Use 2 Sprays in the nose every 4 hours as needed (For dry nares). 0 Active sodium chloride (OCEAN NASAL MIST NASAL) Use 2 Sprays in the nose every 4 hours as needed (For dry nares). 0 Suspended tamsulosin hydrochloride 0.4 mg oral capsule (2 sources) alpha-Adrenergic Ligia take 0.4 mg by mouth once daily at bedtime tamsulosin (FLOMAX) 0.4 mg Take 0.4 mg by mouth daily at bedtime. 0 Active traZODone hydrochloride 50 mg oral tablet (2 sources) Serotonin Reuptake Inhibitor take 1 tablet by mouth once daily at bedtime traZODone (DESYREL) 50 mg tablet Take 50 mg by mouth daily at bedtime. 0 Active Completed/Discontinued Medications Medication Drug Class(es) Dates Sig (Normalized) Sig (Original) dulaglutide (TRULICITY) 4.5 mg/0.5 mL pen injector (1 source) Start: 01-24-2021 inject 4.5 mg by subcutaneous injection every week dulaglutide (TRULICITY) 4.5 mg/0.5 mL pen injector Inject 4.5 mg subcutaneously one time a week. 2 mL 1 01/24/2021 Suspended lisinopril 10 mg oral tablet (1 source) Angiotensin Converting Enzyme Inhibitor Start: 04-12-2019 take 1 tablet by mouth once daily lisinopril (PRINIVIL) 10 mg tablet Take 1 tablet by mouth once daily. 30 tablet 3 04/12/2019 Suspended sotalol hydrochloride 120 mg oral tablet (1 source) Antiarrhythmic Start: 01-24-2021 take 1 tablet by mouth twice daily sotalol (BETAPACE) 120 mg tablet Take 1 tablet by mouth twice daily. 30 tablet 2 01/24/2021 Suspended ticagrelor 90 mg oral tablet (1 source) Start: 01-24-2021 take 1 tablet by mouth twice daily ticagrelor (BRILINTA) 90 mg tablet Take 1 tablet by mouth twice daily. 60 tablet 1 01/24/2021 Suspended Problems Active Problems Problem Classification Problem Date Documented Da te Episodic/Chronic Cancer of thyroid (2 sources) Papillary thyroid carcinoma; Translations: [Malignant neoplasm of thyroid gland] Onset: 05-11-2015 05-11-2015 Chronic Cardiac dysrhythmias (7 sources) Nonsustained ventricular tachycardia ; Translations: [Ventricular tachycardia, nonsustained] Onset: 01-20-2021 Resolved: 11-22-2023 01-22-2021 Chronic Chronic ulcer of skin (2 sources) Non-pressure chronic ulcer of unspecified part of left lower leg limited to breakdown of skin; Translations: [Non-pressure chronic ulcer of other part of right foot with necrosis of muscle] Onset: 08-20-2018 Chronic Congestive heart failure; nonhypertensive (2 sources) Chronic heart failure co-occurrent with normal ejection fraction; Translations: [Chronic diastolic (congestive) heart failure] Onset: 01-22-2021 01-22-2021 Chronic Coronary atherosclerosis and other heart disease (2 sources) Coronary arteriosclerosis; Translations: [Atherosclerotic heart disease of hopi coronary artery without angina pectoris] Onset: 01-22-2021 01-22-2021 Chronic Diabetes mellitus with complications (3 sources) Type 2 diabetes mellitus with foot ulcer; Translations: [Type 2 diabetes mellitus in obese] Onset: 11-02-2012 01-22-2021 Chronic Essential hypertension (2 sources) Essential hypertension; Translations: [Essential (primary) hypertension] Onset: 10-16-2012 01-22-2021 Chronic Immunizations and screening for infectious disease (1 source) Carrier or suspected carrier of Methicillin resistant Staphylococcus aureus; Translations: [Carrier or suspected carrier of methicillin resistant Staphylococcus aureus] Onset: 08-28-2018 Episodic Other nutritional; endocrine; and metabolic disorders (2 sources) Cholesterol level - finding; Translations: [Lipoprotein deficiency] Onset: 10-19-2012 10-19-2012 Chronic Other nutritional; endocrine; and metabolic disorders (2 sources) Body mass index 40+ - severely obese; Translations: [Morbid (severe) obesity due to excess calories] Onset: 10-30-2017 01-22-2021 Chronic Thyroid disorders (2 sources) Non-toxic multinodular goiter; Translations: [Nontoxic multinodular goiter] Onset: 02-05-2015 02-05-2015 Chronic Unclassified (1 source) Wound Care Onset: 08-21-2018 Unclassified (1 source) NSVT (nonsustained ventricular tachycardia) (HCC); Translations: [NSVT (nonsustained ventricular tachycardia) (HCC)] Onset: 11-18-2023 Past or Other Problems Problem Classification Problem Date Documented Da te Episodic/Chronic Diabetes mellitus without complication (2 sources) Hyperglycemia; Translations: [Hyperglycemia, unspecified] Onset: 10-19-2012 Resolved: 01-17-2016 01-17-2016 Episodic Other aftercare (2 sources) Taking high risk medication; Translations: [Other termite technician (current) drug therapy] Onset: 01-22-2021 01-22-2021 Episodic Other aftercare (2 sources) Patient encounter status; Translations: [Encounter for therapeutic drug level monitoring] Onset: 01-24-2021 01-24-2021 Episodic Results Test Name Value Interpretation Reference Range [facility] 01-21-2024 CNCO Letter Text Normal [facility] CNPNon 11-26-2023 CNPN Telephone ([facility]) ----- DERRELL HOYT ([id number]) 1965 Bren[place] Date Time Provider Department 11/26/23 BOB DU [facility] During your visit today, we recorded the following information about you: Bob Du, FABRIC WORKER SUPERVISOR.RE EXAMINER 11/26/2023 3:10 PM Signed 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 He was sent home on Lopressor 100 mg twice daily. Patient needs a 30-day event monitor then Hospital follow-up in 8 weeks. Yris Lyn MA 11/26/2023 3:42 PM Addendum Left voicemail for patient to return call in regards to Providers message. Follow up appointment for patient already made. I am going to see if the patient wants to have the monitor mailed to him or if he wants to come in the office to have it put on. Yris Lyn MA 11/27/2023 3:10 PM Signed Left voicemail for patient to return call in regards to Providers message. Follow up appointment for patient already made. I am going to see if the patient wants to have the monitor mailed to him or if he wants to come in the office to have it put on. Yris Lyn MA 11/28/2023 11:44 AM Signed Left voicemail for patient to return call in regards to Providers message. Follow up appointment for patient already made. I am going to see if the patient wants to have the monitor mailed to him or if he wants to come in the office to have it put on. Yris Lyn MA 12/01/2023 11:05 AM Signed Left voicemail for patient to return call in regards to Providers message. Follow up appointment for patient already made. I am going to see if the patient wants to have the monitor mailed to him or if he wants to come in the office to have it put on. Yris Lyn MA 12/03/2023 11:55 AM Signed Left voicemail for patient to return call in regards to Providers message. Follow up appointment for patient already made. I am going to see if the patient wants to have the monitor mailed to him or if he wants to come in the office to have it put on. Yris Lyn MA 12/04/2023 9:54 AM Signed Letter mailed to patient due to not being able to get a hold of the patient.. Allergies As of Date: 11/26/2023 (No Known Allergies) Date Reviewed: 11/22/2023 Reviewed by: Nikunj Lizama RN - Fully Assessed Reason for Visit: Results [95] Patient Update [1234] Prescriptions as of 12/04/2023 - levothyroxine (SYNTHROID) 25 mcg tablet Take 1 tablet by mouth daily before breakfast. Add to 200 mcg tablet for a total dose of 225 mcg each morning. - metoprolol tartrate, short acting, (LOPRESSOR) 100 mg tablet Take 1 tablet by mouth two times a day. - melatonin 3 mg tablet Take 1 tablet by mouth daily at bedtime. - levothyroxine (SYNTHROID) 25 mcg tablet Take 1 tablet by mouth daily at 6 am. Add to 200 mcg tablets for total 225 mcg - furosemide (LASIX) 40 mg tablet Take 1 tablet by mouth once daily as needed (Lower extremity edema if persisting despite leg elevation and/or COREY hose, or greater than 3 lb weight gain within days). - potassium chloride ER (KLOR-CON) 20 mEq tablet Take 1 tablet by mouth as directed. Only need to take if taking lasix/furosemide - sodium chloride (OCEAN NASAL MIST NASAL) Use 2 Sprays in the nose every 4 hours as needed (For dry nares). - polyethylene glycol 3350 17 gram packet Take 17 g by mouth once daily as needed for constipation. Dissolve dose in 4 - 8 ounces of liquid and take as directed. - fluticasone-salmeterol HFA (ADVAIR HFA) 115-21 mcg/actuation inhaler Inhale 2 Puffs as instructed two times a day. - Fish Oil-[place]-3 Fatty Acids (FISH OIL) 340-1,000 mg cap Take 2 capsules by mouth once daily. - montelukast (SINGULAIR) 10 mg tablet Take 10 mg by mouth daily at bedtime. - omeprazole (PRILOSEC) 20 mg capsule Take 20 mg by mouth once daily. - semaglutide (OZEMPIC) 1 mg/0.75 ml subcutaneous pen injector Inject 2 mg subcutaneously one time a week. - insulin glargine (LANTUS U-100 INSULIN) 100 unit/mL injection Inject 38 Units subcutaneously daily at bedtime. - traZODone (DESYREL) 50 mg tablet Take 50 mg by mouth daily at bedtime. - aspirin, enteric coated (ASPIRIN, ENTERIC COATED) 81 mg EC tablet Take 1 tablet by mouth once daily. - atorvastatin (LIPITOR) 80 mg tablet Take 1 tablet by mouth once daily. - acetaminophen (TYLENOL) 325 mg tablet Take 650 mg by mouth every 8 hours as needed for pain or fever (specify temp.). - albuterol HFA (PROVENTIL HFA, VENTOLIN HFA) 90 mcg/actuation inhaler Inhale 2 Puffs as instructed every 4 hours as needed for wheezing/shortness of breath. - benzocaine 20 % gel Use 1 application as instructed as needed (sore gums). One dental application every 4 hours as needed for sore gums (supervised self-administration) - carboxymethylcellulose sodium (ARTIFICIAL TEARS) 1 % drops Use 1 Drop in both eyes as needed (dry eyes). - citalopram (CELEXA) 20 mg tablet Take 20 mg by mouth once daily (more content not included)... Normal [facility] Basic metabolic 2000 panelon 11-22-2023 Anion gap [Moles/Vol] 3 mmol/L Low 5-16 [facility] Comment on above: Order Comment: Yogi plascencia Type: BLOOD SPECIMEN Ordering Facility: [facility] Address: [address] [place] [id number] Performed By: #### 3 4528-0, 12975-4 #### [facility] CLIA [id number] [facility] [place] [address] [place] Calcium [Mass/Vol] 8.4 mg/dL Low 8.5-10.5 [facility] Comment on above: Order Comment: Speci men Type: BLOOD SPECIMEN Ordering Facility: [facility] Address: [address] [place] [address] Performed By: #### 3 4528-0, 93942-3 #### [facility] CLIA [id number] [address] [place], [place] [id number] [place] Chloride [Moles/Vol] 104 mmol/L Normal 98-107 [facility] Comment on above: Order Comment: Speci men Type: BLOOD SPECIMEN Ordering Facility: [facility] Address: [address] [place] [address] Performed By: #### 3 4528-0, 23523-5 #### [facility] CLIA [id number] [address] [place] [address] [place] CO2 [Moles/Vol] 32 mmol/L Normal 21-32 [facility] Comment on above: Order Comment: Speci men Type: BLOOD SPECIMEN Ordering Facility: [facility] Address: [address] [place] [address] Performed By: #### 3 4528-0, 52353-0 #### [facility] CLIA [id number] [address] [place] [address] [place] Creatinine [Mass/Vol] 0.61 mg/dL Normal 0.50-1.40 [facility] Comment on above: Order Comment: Speci men Type: BLOOD SPECIMEN Ordering Facility: [facility] Address: [address] [place] [address] Result Comment: Diane ents receiving either N-Acetylcysteine (NAC) or Metamizole prior to venipuncture, may have falsely depressed results. Performed By: #### 3 4528-0, 83072-9 #### [facility] CLIA [id number] [address] [place] [address] [place] Creatinine and Glomerular filtration rate.predicted panel (S/P/Bld) 111 mL/min/1.73m??? Normal >=60 [facility] Comment on above: Order Comment: Speci men Type: BLOOD SPECIMEN Ordering Facility: [facility] Address: [address] [place] [address] Result Comment: Sudha mated Glomerular Filtration Rate (eGFR) is calculated using the 2020 CKD-EPI creatinine equation. This equation utilizes serum creatinine, sex, and age as parameters. The creatinine assay has traceable calibration to isotope dilution-mass spectrometry. Refer to KDIGO guidelines for clinical interpretation. In patients with unstable renal function, e.g. those with acute kidney injury, the eGFR may not accurately reflect actual GFR. Performed By: #### 3 4528-0, 63044-6 #### [facility] CLIA [id number] [address] [place] [address] [place] Glucose [Mass/Vol] 134 mg/dL High 70-100 [facility] Comment on above: Order Comment: Yogi plascencia Type: BLOOD SPECIMEN Ordering Facility: [facility] Address: [address] [place] [address] Result Comment: The [place] Diabetes Association (ADA) provides guidance for cutoff values for fasting glucose and random glucose. The ADA defines fasting as no caloric intake for at least 8 hours. Fasting plasma glucose results between 100 to 125 mg/dL indicate increased risk for diabetes (prediabetes). Fasting plasma glucose results greater than or equal to 126 mg/dL meet the criteria for diagnosis of diabetes. In the absence of unequivocal hyperglycemia, results should be confirmed by repeat testing. In a patient with classic symptoms of hyperglycemia or hyperglycemic crisis, random plasma glucose results greater than or equal to 200 mg/dL meet the criteria for diagnosis of diabetes. Reference: Standards of Medical Care in Diabetes 2016, [place] [employer] Association. Diabetes Care. 2016.39(Suppl 1). Results may be falsely elevated after the administration of Sulfapyridine. Results may be falsely depressed after the administration of Sulfasalazine. Performed By: #### 3 4528-0, 90459-3 #### [facility] CLIA [id number] [address] [place], [place] [id number] [place] Potassium [Moles/Vol] 4.2 mmol/L Normal 3.5-5.1 [facility] Comment on above: Order Comment: Yogi plascencia Type: BLOOD SPECIMEN Ordering Facility: [facility] Address: [address] [id number] Performed By: #### 3 4528-0, 25431-9 #### [facility] CLIA [id number] [address] [place] [address] [place] Sodium [Moles/Vol] 139 mmol/L Normal 136-145 [facility] Comment on above: Order Comment: Speci men Type: BLOOD SPECIMEN Ordering Facility: [facility] Address: [address] [place] [address] Performed By: #### 3 4528-0, 71018-6 #### [facility] CLIA [id number] [address] [place] [address] [place] Urea nitrogen [Mass/Vol] 8 mg/dL Normal 7-26 [facility] Comment on above: Order Comment: Speci men Type: BLOOD SPECIMEN Ordering Facility: [facility] Address: [address] [place] [address] Performed By: #### 3 4528-0, 66932-2 #### [facility] CLIA [id number] [address] [place] [address] CNDSon 11-22-2023 CNDS HNO ID: [id number] Author: AIXA PAEZ DO Service: Hospital Medicine Author Type: Physician Type: Discharge Summary Filed: 11/22/2023 19:54 Note Text: DISCHARGE SUMMARY PATIENT NAME: Derrell Hoyt Code Status: Full Code Highest Readmission Risk Score: 14 The 30 day readmissions risk score is derived from an internally validated risk model which evaluates patient level characteristics, utilization history, medication orders and lab results up until the day of discharge. Patients with a score of 40 or above are considered highest risk for readmission. Specific patient level drivers will be listed at the bottom of the summary. Admission Information Admission Information ADMIT DATE: 11/18/2023 DISCHARGE DATE: 11/22/2023 MY DOCTORS AND MEDICAL TEAM: My Main Hospital Doctor: Aixa Paez DO Primary Care Provider: Reinaldo Paez MD My Medical Team Members: Treatment Team: Attending Provider: Aixa Paez DO Consulting: Chidi Arroyo MD Attending: MR NILESH CALVIN MY CONDITION AT DISCHARGE: Fair REASON I WAS IN THE HOSPITAL: Pre-syncopal episode with cardiac dysrhythmia SUMMARY OF WHAT HAPPENED WHILE I WAS IN THE HOSPITAL: Was transferred to our heart unit for close monitoring of NSVT with Cardiology/Electrophysiol ogy consultation to adjust medications, needed off lasix and to give fluids to help blood pressures especially when standing. Symptoms improved, underwent stress test which was indeterminate followed by left heart cath which was clean for coronary arteries. Notably very iron deficient and anemic so iv iron was supplemented and thyroid not appearing fully hormonally replaced so intended increase of levothyroxine accomplished, Cardiology cleared pt for discharge on new regimen. Echo cardiogram - EF 63% moderate LVH. 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 BPH Hypothyroidism Resolved Problems: BOY on CKD OPERATIONS PERFORMED WHILE IN THE HOSPITAL: None IMPORTANT TEST/PROCEDURES: Echocardiogram, Heart Catheterization: No intervention, and Stress Test TEST RESULTS NOT AVAILABLE AT THIS TIME: No pending results Discharge Disposition Discharge Disposition: [facility] Activity When You Leave the Hospital Lifting is restricted to: less than 10 pounds with right hand for 2 days after cath procedure Resume pre-hospital activity Diet Instructions Diabetic Low Cholesterol Low Fat Low Salt Regular Wound/Surgical Site Care Check your wound every day If the bruising expands or the bump enlarges please call your doctor Some bruising, soreness or a small bump under the skin at the inserion site is normal Call Your Doctor If There is an unusual odor from the wound area There is an unusual odor from the wound area There is severe pain at the operative site There is severe pain at the operative site You have a severe headache You have lightheadedness, fainting, or confusion You have persistent nausea/vomiting over 24 hours You have persistent or heavy bleeding You have redness, swelling, pus or drainage from the wound You have redness, swelling, pus or drainage from the wound You have swollen glands or cold and clammy skin Your temperature is greater than 101F Follow Up Appointments Follow-Up Appointment Within upcoming week - May change office based on proximity/availability - to set up 30 day monitor When: In: Chidi Arroyo MD [phone] [facility] RADHA BARNETT [facility] [address] PCP Requested Referral Additional Provider to Provider Information: Treatment Team: Attending Provider: Aixa Paez DO Consulting: Chidi Arrooy MD Attending: MR NILESH CALVIN Transitions of Care Critical Issues: SPECIALIST FOLLOW-UP: Cardiology LABS AND PROCEDURES PENDING AT DISCHARGE: No pending results. FOLLOW-UP APPOINTMENTS ALREADY SCHEDULED WITH A [facility] PROVIDER: No future appointments. ALLERGIES No Known Allergies DISCHARGE MEDICATION: Medication List CHANGE how you take these medications atorvastatin 80 mg tablet Commonly known as: LIPITOR Take 1 tablet by mouth once daily. What changed: when to take this Blood-Glucose Meter monitoring kit Commonly known as: FREESTYLE LITE METER Freestyle LITE Meter Kit - What changed: how much to take how to take this when to take this furosemide 40 mg tablet Commonly known as: LASIX Take 1 tablet by mouth once daily as needed (Lower extremity edema if persisting despite leg elevation and/or COREY hose, or greater than 3 lb weight gain within days). What changed: when to take this reasons to take this Lancet (more content not included)... Normal [facility] ECG COMPLETEon 11-22-2023 ECG COMPLETE Ventricular Rate : 8 0 BPM Atrial Rate : 80 BPM P-R Interval : 190 ms QRS Duration : 92 ms Q-T Interval : 366 ms QTC Calculation(Bazett) : 422 ms Calculated P Charlotte : 5 degrees Calculated R Charlotte : 4 degrees Calculated T Charlotte : 28 degrees Normal sinus rhythm EKG done during metoprolol tartrate 75 mg po q12 hrs Normal ECG When compared with ECG of 21-Nov-2023 06:21, No significant change was found Confirmed by CHIDI ARROYO MD ([id number]) on 11/22/2023 9:45:33 AM NAME : DERRELL HOYT PID : [id number] : 1965 Gender : Male Race : Unknown ORD : [id number] Procedure Date : Nov 22 2023 06:46:11 Edit Date : Nov 22 2023 09:45:35 Diagnosis: Normal sinus rhythm EKG done during metoprolol tartrate 75 mg po q12 hrs Normal ECG When compared with ECG of 21-Nov-2023 06:21, No significant change was found Confirmed by CHIDI ARROYO MD ([id number]) on 11/22/2023 9:45:33 AM Test Reason : RT Location : 13 : U CCU Overread By : CHIDI ARROYO MD Edited By : CHIDI ARROYO MD Referred By : HONORIO OVALLE Acquired by : MIGUEL YODER [facility] Magnesium Venessal-marianne 11-21 Magnesium [Mass/Vol] 2.1 mg/dL Normal 1.6-2.6 [facility] Comment on above: Order Comment: Speci men Type: BLOOD SPECIMEN Ordering Facility: [facility] Address: [facility] [place] [address] Performed By: #### 3 4528-0, 12946-3 #### [facility] CLIA [id number] [address] BRIEF OP NOTon 11-21-2023 BRIEF OP NOT HNO ID: [id number] Author: CHIDI BOYER MD Service: Cardiovascular Medicine Author Type: Physician Type: Brief Op Note Filed: 11/21/2023 09:56 Note Text: Left heart catheterization with bilateral coronary angiography without crossing aortic valve or ventriculgram via the right radial artery Date of procedure: 11/20/2021. Indication 58-year-old ith a past medical history of CAD, COPD, NAFLD, morbid obesity, hypertension, papillary thyroid carcinoma s/p thyroidectomy now with hypothyroidism, Hx nonsustained VT treated with sotalol, syncope, asthma, diabetes, SHAHANA (noncompliant) and CAD s/p stent of the mid LAD performed [facility] 01/18/2021 (images available and single but no report available) who initially presented to [facility] with complaints of lightheadedness and dizziness found to have bradycardia and intermittent runs of nonsustained VT. He was having some vague feelings of feeling unwell as well as some abdominal pain. Been evaluated Dr. Arroyo of EP who is impression that the VT is right ventricular outflow tract PVCs and nonsustained ventricular tachycardia. This arrhythmia is associated with normal hearts and does not have an adverse prognostic significance in terms of sudden . The patient is completely asymptomatic with this ectopy. He continues to have normal left ventricular systolic function and thus does not have evidence of a tachycardia induced cardiomyopathy from this ectopy. He is recommended continuing sotalol and uptitrating metoprolol. Because of his vague symptoms he underwent stress testing which showed a possible small area of ischemia in the lateral wall. Findings: Left main: Normal LAD: Widely patent stent in the proximal LAD beginning of the large diagonal branch with maximal 20% narrowing the distal edge of the stent and otherwise mild irregularities LCx: Minimal luminal regularities RCA: Minimal luminal regularities LV: Not performed see recent echo Impression: 1. Widely patent stent in LAD and otherwise minimal coronary disease 2. Normal LV function 3. Right ventricular outflow track tachycardia Plan: 1. Patient remain on aspirin long-term if well-tolerated given his history of LAD stenting. 2. Continue high intensity atorvastatin 80 mg 3. Continue treatment with sotalol and metoprolol as guided by Dr. Arroyo of EP. 4. Follow-up with electrophysiology postdischarge to determine whether with Dr. 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 Can be seen by either [facility] or [facility] dusting and brushing machine operator approximately once yearly if requested. Chidi Boyer MD Normal [facility] Basic metabolic 2000 panelon 11-21-2023 Anion gap [Moles/Vol] 3 mmol/L Low 5-16 [facility] Comment on above: Order Comment: Yogi plascencia Type: BLOOD SPECIMEN Ordering Facility: [facility] Address: [address] [place] [address] Performed By: #### 3 4528-0, 94438-6 #### [facility] CLIA [id number] [address] [place] [address] [place] Calcium [Mass/Vol] 8.7 mg/dL Normal 8.5-10.5 [facility] Comment on above: Order Comment: Yogi plascencia Type: BLOOD SPECIMEN Ordering Facility: [facility] Address: [address] [place] [address] Performed By: #### 3 4528-0, 77153-9 #### [facility] CLIA [id number] [address] [place] [address] [place] Chloride [Moles/Vol] 103 mmol/L Normal 98-107 [facility] Comment on above: Order Comment: Yogi plascencia Type: BLOOD SPECIMEN Ordering Facility: [facility] Address: [address] [place] [address] Performed By: #### 3 4528-0, 13645-2 #### [facility] CLIA [id number] [address] [place] [address] [place] CO2 [Moles/Vol] 30 mmol/L Normal 21-32 [facility] Comment on above: Order Comment: Speci men Type: BLOOD SPECIMEN Ordering Facility: [facility] Address: [address] [place] [address] Performed By: #### 3 4528-0, 13003-5 #### [facility] CLIA [id number] [address] [place] [address] [place] Creatinine [Mass/Vol] 0.75 mg/dL Normal 0.50-1.40 [facility] Comment on above: Order Comment: Speci men Type: BLOOD SPECIMEN Ordering Facility: [facility] Address: [address] [place] [address] Result Comment: Diane ents receiving either N-Acetylcysteine (NAC) or Metamizole prior to venipuncture, may have falsely depressed results. Performed By: #### 3 4528-0, 90098-0 #### [facility] CLIA [id number] [address] [place] [address] Creatinine and Glomerular filtration rate.predicted panel (S/P/Bld) 105 mL/min/1.73m??? Normal >=60 [facility] Comment on above: Order Comment: Speci men Type: BLOOD SPECIMEN Ordering Facility: [facility] Address: [address] [place] [address] Result Comment: Sudha mated Glomerular Filtration Rate (eGFR) is calculated using the 2020 CKD-EPI creatinine equation. This equation utilizes serum creatinine, sex, and age as parameters. The creatinine assay has traceable calibration to isotope dilution-mass spectrometry. Refer to KDIGO guidelines for clinical interpretation. In patients with unstable renal function, e.g. those with acute kidney injury, the eGFR may not accurately reflect actual GFR. Performed By: #### 3 4528-0, 71073-4 #### [facility] CLIA [id number] [address] [place] [address] [place] Glucose [Mass/Vol] 145 mg/dL High 70-100 [facility] Comment on above: Order Comment: Yogi plascencia Type: BLOOD SPECIMEN Ordering Facility: [facility] Address: [address] [place] [address] Result Comment: The [place] Diabetes Association (ADA) provides guidance for cutoff values for fasting glucose and random glucose. The ADA defines fasting as no caloric intake for at least 8 hours. Fasting plasma glucose results between 100 to 125 mg/dL indicate increased risk for diabetes (prediabetes). Fasting plasma glucose results greater than or equal to 126 mg/dL meet the criteria for diagnosis of diabetes. In the absence of unequivocal hyperglycemia, results should be confirmed by repeat testing. In a patient with classic symptoms of hyperglycemia or hyperglycemic crisis, random plasma glucose results greater than or equal to 200 mg/dL meet the criteria for diagnosis of diabetes. Reference: Standards of Medical Care in Diabetes 2016, [place] [employer] Association. Diabetes Care. 2016.39(Suppl 1). Results may be falsely elevated after the administration of Sulfapyridine. Results may be falsely depressed after the administration of Sulfasalazine. Performed By: #### 3 4528-0, 54710-8 #### [facility] CLIA [id number] [address] [place] [address] [place] Potassium [Moles/Vol] 4.0 mmol/L Normal 3.5-5.1 [facility] Comment on above: Order Comment: Yogi plascencia Type: BLOOD SPECIMEN Ordering Facility: [facility] Address: [address] [place] [address] Performed By: #### 3 4528-0, 79105-8 #### [facility] CLIA [id number] [address] [place] [address] [place] Sodium [Moles/Vol] 136 mmol/L Normal 136-145 [facility] Comment on above: Order Comment: Yogi plascencia Type: BLOOD SPECIMEN Ordering Facility: [facility] Address: [address] [place], [place] [address] Performed By: #### 3 4528-0, 54548-0 #### [facility] CLIA [id number] [address] [place] [address] STATES [facility] Urea nitrogen [Mass/Vol] 8 mg/dL Normal 7-26 [facility] Comment on above: Order Comment: Speci men Type: BLOOD SPECIMEN Ordering Facility: [facility] Address: [address] [place] [address] Performed By: #### 3 4528-0, 70598-9 #### [facility] CLIA [id number] [address] [place], [place] [id number] [facility] [place] CARD CATH DIAGNOSTICon 11-20 CARD CATH DIAGNOSTIC Site Id: [facility] Lab #: DEFAULT Study Date: 11/21/2023 Start Time: End Time: Name Duty Chidi Boyer MD PROC MD 1 Mayuri Sapp(R) [facility] Yadira Maria RN PROC CIRC 1 KyawCarmen RN PROC RECORD 1 + + PATIENT INFORMATION + + Name: DERRELL HOYT : 1965 Age: 58 years Gender: M + ----+ CLINICAL HISTORY/INDICATIONS + ----+ Appropriate Use Criteria (Diag): Ventricular tachycardia with symptoms; AUC score = 9Mid Risk (5-10% Ischemia on Stress SPECT/PET Induced 1 seg WMA on SE/CMR) Symptomatic; AUC score = 7. Procedural Status: Elective CAD Presentation: Symptoms Likely to be Ischemic Angina Classification (within 2 weeks): CCS I No Heart Failure Clinical History: 58-year-old ith a past medical history of CAD, COPD, NAFLD, morbid obesity, hypertension, papillary thyroid carcinoma s/p thyroidectomy now with hypothyroidism, Hx nonsustained VT treated with sotalol, syncope, asthma, diabetes, SHAHANA (noncompliant) and CAD s/p stent of the mid LAD performed [facility] 01/18/2021 (images available and single but no report available) who initially presented to [facility] with complaints of lightheadedness and dizziness found to have bradycardia and intermittent runs of nonsustained VT. He was having some vague feelings of feeling unwell as well as some abdominal pain. Been evaluated Dr. Arroyo of EP who is impression that the VT is right ventricular outflow tract PVCs and nonsustained ventricular tachycardia. This arrhythmia is associated with normal hearts and does not have an adverse prognostic significance in terms of sudden . The patient is completely asymptomatic with this ectopy. He continues to have normal left ventricular systolic function and thus does not have evidence of a tachycardia induced cardiomyopathy from this ectopy. He is recommended continuing sotalol and uptitrating metoprolol. Because of his vague symptoms he underwent stress testing which showed a possible small area of ischemia in the lateral wall. + + DIAGNOSTIC FINDINGS + + Coronary Anatomy: Right Dominant Injection Site(s): Left Main Coronary Artery and Right Coronary Artery LMT: _ The LMT is normal. LAD: _ The mid LAD is narrowed 20 % - focal disease. Additional Comment: Widely patent stent in the proximal LAD beginning of the large diagonal branch with maximal 20% narrowing the distal edge of the stent and otherwise mild irregularities. LCX: _ The Circumflex has mild luminal irregularities. RAMUS: _ The Ramus is Absent. RCA: _ The RCA has mild luminal irregularities. + + IMPRESSION/PLAN + + Impression:Left heart catheterization with bilateral coronary angiography without crossing aortic valve or ventriculgram via the right radial artery Impression: 1. Widely patent stent in LAD and otherwise minimal coronary disease 2. Normal LV function 3. Right ventricular outflow track tachycardia Recommended Treatment: Medical Therapy. Plan: 1. Patient remain on aspirin long-term if well-tolerated given his history of LAD stenting. 2. Continue high intensity atorvastatin 80 mg 3. Continue treatment with sotalol and metoprolol as guided by Dr. Arroyo of EP. 4. Follow-up with electrophysiology postdischarge to determine whether with Dr. 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 Can be seen by either [facility] or [facility] dusting and brushing machine operator approximately once yearly if requested. + + HEMODYNAMICS - XPER + + + +------+ -----+-------+-----+----- -+------+ Measurement Name Sys Devika End Devika Mean A Wave V Wave + +------+ -----+-------+-----+----- -+------+ AO 102.00 75.00 87.00 + +------+ -----+-------+-----+----- -+------+ Oximetry: +----+----+ + --+---+--+ Time Site O2 Saturation O2 PO2 HB +----+----+ + --+---+--+ + + ADVERSE OUTCOME(s)/COMPLICATION(s ) + + None + ------+ PROCEDURAL & TECHNICAL DETAILS + ------+ Date Time Description 11/21/2023 12:00:00 AM D - CORS- LV *MEDICAL HISTORY* CAD Presentation: Symptoms Likely to be Ischemic Angina Classification (within 2 weeks): CCS I No Heart Failure Family History of CAD: Unknown Coronary Artery Disease: Yes Dyslipidemia: Yes Dialysis: Currently not on dialysis Left Ventricle EF: 63% by Echo. LVEF at Discharge: Procedure Details: Blood Loss: < 30ml Specimen: No Specimen Obtained Recent PCI Failure of Treated Vessel: Contrast: Radiation: Procedure performed under Fluoroscopic Guidance Total Dose 2 (more content not included)... Normal [facility] CBC panel Auto (Bld)on 11-20 Erythrocyte distribution width (RBC) [Ratio] 17.5 % High 11.5-15.0 [facility] Comment on above: Order Comment: Yogi plascencia Type: BLOOD SPECIMEN Ordering Facility: [facility] Address: [address] [place] [address] Performed By: #### 3 4528-0, 21767-0 #### [facility] CLIA [id number] [address] [place] [address] [place] Hematocrit (Bld) [Volume fraction] 37.8 % Low 39.0-51.0 [facility] Comment on above: Order Comment: Yogi plascencia Type: BLOOD SPECIMEN Ordering Facility: [facility] Address: [address] [place] [address] Performed By: #### 3 4528-0, 16829-2 #### [facility] CLIA [id number] [address] [place] [address] [place] Hemoglobin (Bld) [Mass/Vol] 11.2 g/dL Low 13.0-17.0 [facility] Comment on above: Order Comment: Yogi plascencia Type: BLOOD SPECIMEN Ordering Facility: [facility] Address: [address] [place] [address] Performed By: #### 3 4528-0, 97986-0 #### [facility] CLIA [id number] [address] [place] [address] [place] MCH (RBC) [Entitic mass] 24.0 pg Low 26.0-34.0 [facility] Comment on above: Order Comment: Speci men Type: BLOOD SPECIMEN Ordering Facility: [facility] Address: [address] [place] [address] Performed By: #### 3 4528-0, 71868-6 #### [facility] CLIA [id number] [address] [place] [address] [place] MCHC (RBC) [Mass/Vol] 29.6 g/dL Low 30.5-36.0 [facility] Comment on above: Order Comment: Speci men Type: BLOOD SPECIMEN Ordering Facility: [facility] Address: [address] [place] [address] Performed By: #### 3 4528-0, 03575-6 #### [facility] CLIA [id number] [address] [place] [address] [place] MCV (RBC) [Entitic vol] 81.1 fL Normal 80.0-100.0 [facility] Comment on above: Order Comment: Speci men Type: BLOOD SPECIMEN Ordering Facility: [facility] Address: [address] [place] [address] Performed By: #### 3 4528-0, 71621-9 #### [facility] CLIA [id number] [address] [place] [address] [place] Nucleated RBC (Bld) [#/Vol] 10*3/uL Normal <0.01 [facility] Comment on above: Order Comment: Speci men Type: BLOOD SPECIMEN Ordering Facility: [facility] Address: [address] [place] [address] Performed By: #### 3 4528-0, 07270-7 #### [facility] CLIA [id number] [address] [place] [address] [place] Platelet mean volume (Bld) [Entitic vol] 10.1 fL Normal 9.0-12.7 [facility] Comment on above: Order Comment: Speci men Type: BLOOD SPECIMEN Ordering Facility: [facility] Address: [address] [place], [place] [address] [id number] Performed By: #### 3 4528-0, 45964-5 #### [facility] CLIA [id number] [address] [place], [place] [id number] [facility] Platelets (Bld) [#/Vol] 179 10*3/uL Normal 150-400 [facility] Comment on above: Order Comment: Speci men Type: BLOOD SPECIMEN Ordering Facility: [facility] Address: [address] [place] [address] [place] [address] Performed By: #### 3 4528-0, 51178-0 #### [facility] CLIA [id number] [address] [place] [address] [place] RBC (Bld) [#/Vol] 4.66 10*6/uL Normal 4.20-6.00 [facility] Comment on above: Order Comment: Speci men Type: BLOOD SPECIMEN Ordering Facility: [facility] Address: [address] [place] [address] Performed By: #### 3 4528-0, 51216-5 #### [facility] CLIA [id number] [address] [place] [address] OF [place] WBC (Bld) [#/Vol] 12.39 10*3/uL High 3.70-11.00 [facility] Comment on above: Order Comment: Speci men Type: BLOOD SPECIMEN Ordering Facility: [facility] Address: [address] [place] [address] Performed By: #### 3 4528-0, 38731-2 #### [facility] CLIA [id number] [address] [place], [place] [id number] [facility] ECG COMPLETEon 11-21-2023 ECG COMPLETE Ventricular Rate : 8 0 BPM Atrial Rate : 80 BPM P-R Interval : 194 ms QRS Duration : 92 ms Q-T Interval : 376 ms QTC Calculation(Bazett) : 433 ms Calculated P Charlotte : 42 degrees Calculated R Charlotte : 7 degrees Calculated T Charlotte : 48 degrees Normal sinus rhythm Low voltage QRS Borderline ECG When compared with ECG of 20-Nov-2023 16:13, No PVC or ventricular couplets noted on current EKG Confirmed by JASON MORALES MD ([id number]) on 11/21/2023 4:48:08 PM NAME : DERRELL HOYT PID : [id number] : 1965 Gender : Male Race : Unknown ORD : [id number] Procedure Date : Nov 21 2023 06:21:33 Edit Date : Nov 21 2023 16:48:10 Diagnosis: Normal sinus rhythm Low voltage QRS Borderline ECG When compared with ECG of 20-Nov-2023 16:13, No PVC or ventricular couplets noted on current EKG Confirmed by JASON MORALES MD ([id number]) on 11/21/2023 4:48:08 PM Test Reason : RT Location : 13 : [facility] CCU Overread By : JASON MORALES MD Edited By : JASON MORALES MD Referred By : HONORIO OVALLE Acquired by : LAILA GRIER [facility] Hepatic function 2000 panelo n 11-21-2023 Albumin [Mass/Vol] 3.4 g/dL Normal 3.2-5.0 [facility] Comment on above: Order Comment: Speci men Type: BLOOD SPECIMEN Ordering Facility: [facility] Address: [address] [place] [address] Performed By: #### 3 4528-0, 11814-1 #### [facility] CLIA [id number] [address] [place] [address] [place] ALP [Catalytic activity/Vol] 250 U/L High 45-117 [facility] Comment on above: Order Comment: Speci men Type: BLOOD SPECIMEN Ordering Facility: [facility] Address: [address] [place] [address] Performed By: #### 3 4528-0, 24819-6 #### [facility] CLIA [id number] [address] [place] [address] [place] ALT [Catalytic activity/Vol] 25 U/L Normal 13-61 [facility] Comment on above: Order Comment: Speci men Type: BLOOD SPECIMEN Ordering Facility: [facility] Address: [address] [place] [address] Result Comment: Resu lts may be falsely depressed after the administration of Sulfasalazine and/or Sulfapyridine. Performed By: #### 3 4528-0, 88306-0 #### [facility] CLIA [id number] [address] [place] [address] [place] AST [Catalytic activity/Vol] 32 U/L Normal 8-34 [facility] Comment on above: Order Comment: Speci temo Type: BLOOD SPECIMEN Ordering Facility: [facility] Address: [address] [place] [address] Result Comment: Resu lts may be falsely depressed after the administration of Sulfasalazine and/or Sulfapyridine. Performed By: #### 3 4528-0, 71364-8 #### [facility] CLIA [id number] [address] [place] [address] [place] Bilirubin [Mass/Vol] 0.5 mg/dL Normal 0.2-1.0 [facility] Comment on above: Order Comment: Elpidioi temo Type: BLOOD SPECIMEN Ordering Facility: [facility] Address: [address] [place] [address] Performed By: #### 3 4528-0, 70678-0 #### [facility] CLIA [id number] [address] [place] [address] [place] Bilirubin.conjugated [Mass/Vol] 0.2 mg/dL Normal 0.0-0.4 [facility] Comment on above: Order Comment: Yogi plascencia Type: BLOOD SPECIMEN Ordering Facility: [facility] Address: [address] [place] [address] Performed By: #### 3 4528-0, 24728-7 #### [facility] CLIA [id number] [address] [place] [address] [place] Protein [Mass/Vol] 7.1 g/dL Normal 6.0-8.5 [facility] Comment on above: Order Comment: Yogi plascencia Type: BLOOD SPECIMEN Ordering Facility: [facility] Address: [address] [place] [address] Performed By: #### 3 4528-0, 01933-5 #### [facility] CLIA [id number] [address] [place] [address] [place] Magnesium SerPl-mCncon 11-20 Magnesium [Mass/Vol] 2.2 mg/dL Normal 1.6-2.6 [facility] Comment on above: Order Comment: Speci men Type: BLOOD SPECIMEN Ordering Facility: [facility] Address: [address] [place] [address] Performed By: #### 3 4528-0, 36078-8 #### [facility] CLIA [id number] [address] [place] [address] [place] Basic metabolic 2000 panelon 11-20-2023 Anion gap [Moles/Vol] 3 mmol/L Low 5-16 [facility] Comment on above: Order Comment: Speci men Type: BLOOD SPECIMENOrdering Facility: [facility] Address: [address] [place] [address] Performed By: #### 2 4321-2, 07967-3, ####[facility]ORYCLIA [id number] [place] [address] [place] Calcium [Mass/Vol] 8.7 mg/dL Normal 8.5-10.5 [facility] Comment on above: Order Comment: Speci men Type: BLOOD SPECIMENOrdering Facility: [facility] Address: [address] [place] [address] Performed By: #### 2 4321-2, 00707-6, ####[facility]ORYCLIA [id number] [place] [id number] [place] Chloride [Moles/Vol] 102 mmol/L Normal 98-107 [facility] Comment on above: Order Comment: Speci men Type: BLOOD SPECIMENOrdering Facility: [facility] Address: [address] [place] [address] Performed By: #### 2 4321-2, 00533-7, ####[facility]ORYCLIA [id number] [place] [address] [place] CO2 [Moles/Vol] 32 mmol/L Normal 21-32 [facility] Comment on above: Order Comment: Speci men Type: BLOOD SPECIMENOrdering Facility: [facility] Address: [address] [place] [address] Performed By: #### 2 4321-2, 97802-0, ####[facility]ORYCLIA [id number] [place] [id number] [place] Creatinine [Mass/Vol] 0.71 mg/dL Normal 0.50-1.40 [facility] Comment on above: Order Comment: Speci men Type: BLOOD SPECIMENOrdering Facility: [facility] Address: [address] [place] [address] Result Comment: Diane ents receiving either N-Acetylcysteine (NAC) or Metamizole prior to venipuncture, may have falsely depressed results. Performed By: #### 2 4321-2, 98372-8, ####[facility]ORYCLIA [id number] [address] Creatinine and Glomerular filtration rate.predicted panel (S/P/Bld) 106 mL/min/1.73m??? Normal >=60 [facility] Comment on above: Order Comment: Speci men Type: BLOOD SPECIMENOrdering Facility: [facility] Address: [address] [place] [address] Result Comment: Sudha mated Glomerular Filtration Rate (eGFR) is calculated using the 2020 CKD-EPI creatinine equation. This equation utilizes serum creatinine, sex, and age as parameters. The creatinine assay has traceable calibration to isotope dilution-mass spectrometry. Refer to KDIGO guidelines for clinical interpretation. In patients with unstable renal function, e.g. those with acute kidney injury, the eGFR may not accurately reflect actual GFR. Performed By: #### 2 4321-2, 66593-8, ####[facility]ORYCLIA [id number] [place] [id number] [place] Glucose [Mass/Vol] 145 mg/dL High 70-100 [facility] Comment on above: Order Comment: Yogi plascencia Type: BLOOD SPECIMENOrdering Facility: [facility] Address: [address] [place] [id number] Result Comment: The [place] Diabetes Association (ADA) provides guidance for cutoff values for fasting glucose and random glucose. The ADA defines fasting as no caloric intake for at least 8 hours. Fasting plasma glucose results between 100 to 125 mg/dL indicate increased risk for diabetes (prediabetes). Fasting plasma glucose results greater than or equal to 126 mg/dL meet the criteria for diagnosis of diabetes. In the absence of unequivocal hyperglycemia, results should be confirmed by repeat testing. In a patient with classic symptoms of hyperglycemia or hyperglycemic crisis, random plasma glucose results greater than or equal to 200 mg/dL meet the criteria for diagnosis of diabetes. Reference: Standards of Medical Care in Diabetes 2016, [place] Diabetes Association. Diabetes Care. 2016.39(Suppl 1). Results may be falsely elevated after the administration of Sulfapyridine. Results may be falsely depressed after the administration of Sulfasalazine. Performed By: #### 2 4321-2, 35240-5, ####[facility]ORYCLIA [id number] [place] [address] [place] Potassium [Moles/Vol] 4.5 mmol/L Normal 3.5-5.1 [facility] Comment on above: Order Comment: Yogi plascencia Type: BLOOD SPECIMENOrdering Facility: [facility] Address: [address] [place] [address] Performed By: #### 2 4321-2, 36079-5, ####[facility]ORYCLIA [id number] [place] [id number] [place] Sodium [Moles/Vol] 137 mmol/L Normal 136-145 [facility] Comment on above: Order Comment: Yogi plascencia Type: BLOOD SPECIMENOrdering Facility: [facility] Address: [address] [place] [address] Performed By: #### 2 4321-2, 86811-3, ####[facility]ORYCLIA [id number] [address] [place] Urea nitrogen [Mass/Vol] 8 mg/dL Normal 7-26 [facility] Comment on above: Order Comment: Speci men Type: BLOOD SPECIMENOrdering Facility: [facility] Address: [address] [place] [address] Performed By: #### 2 4321-2, 91333-3, 66075-2 ####[facility]ORYCLIA [id number] [place] [id number] [place] CBC panel Auto (Bld)on 11-19 Erythrocyte distribution width (RBC) [Ratio] 17.3 % High 11.5-15.0 [facility] Comment on above: Order Comment: Speci men Type: BLOOD SPECIMENOrdering Facility: [facility] Address: [address] [place] [address] Performed By: #### 5 8410-2 ####[facility]ORYCLIA [id number] [place] [id number] [place] Hematocrit (Bld) [Volume fraction] 37.5 % Low 39.0-51.0 [facility] Comment on above: Order Comment: Speci men Type: BLOOD SPECIMENOrdering Facility: [facility] Address: [address] [place] [address] Performed By: #### 5 8410-2 ####[facility]ORYCLIA [id number] [place] [id number] [place] Hemoglobin (Bld) [Mass/Vol] 11.1 g/dL Low 13.0-17.0 [facility] Comment on above: Order Comment: Speci men Type: BLOOD SPECIMENOrdering Facility: [facility] Address: [address] [place] [address] Performed By: #### 5 8410-2 ####[facility]ORYCLIA [id number] [place] [id number] [place] MCH (RBC) [Entitic mass] 23.6 pg Low 26.0-34.0 [facility] Comment on above: Order Comment: Speci men Type: BLOOD SPECIMENOrdering Facility: [facility] Address: [address] [place] [address] Performed By: #### 5 8410-2 ####[facility]ORYCLIA [id number] [place] [id number] [place] MCHC (RBC) [Mass/Vol] 29.6 g/dL Low 30.5-36.0 [facility] Comment on above: Order Comment: Speci men Type: BLOOD SPECIMENOrdering Facility: [facility] Address: [address] [place] [address] Performed By: #### 5 8410-2 ####[facility]ORYCLIA [id number] [place] [address] [facility] [place] MCV (RBC) [Entitic vol] 79.6 fL Low 80.0-100.0 [facility] Comment on above: Order Comment: Speci men Type: BLOOD SPECIMENOrdering Facility: [facility] Address: [address] [place] [address] Performed By: #### 5 8410-2 ####[facility]ORYCLIA [id number] [place] [address] [place] Nucleated RBC (Bld) [#/Vol] 10*3/uL Normal <0.01 [facility] Comment on above: Order Comment: Speci men Type: BLOOD SPECIMENOrdering Facility: [facility] Address: [address] [place] [address] Performed By: #### 5 8410-2 ####[facility]ORYCLIA [id number] [place] [address] [place] Platelet mean volume (Bld) [Entitic vol] 10.0 fL Normal 9.0-12.7 [facility] Comment on above: Order Comment: Speci men Type: BLOOD SPECIMENOrdering Facility: [facility] Address: [address] [place] [address] Performed By: #### 5 8410-2 ####[facility]ORYCLIA [id number] [place] [id number] [place] Platelets (Bld) [#/Vol] 173 10*3/uL Normal 150-400 [facility] Comment on above: Order Comment: Speci men Type: BLOOD SPECIMENOrdering Facility: [facility] Address: [address] [place], [place] [address] Performed By: #### 5 8410-2 ####[facility]ORYCLIA [id number] [place] [id number] [place] RBC (Bld) [#/Vol] 4.71 10*6/uL Normal 4.20-6.00 [facility] Comment on above: Order Comment: Speci men Type: BLOOD SPECIMENOrdering Facility: [facility] Address: [address] [place], [place] [address] Performed By: #### 5 8410-2 ####[facility]ORYCLIA [id number] [place] [id number] [facility] WBC (Bld) [#/Vol] 9.70 10*3/uL Normal 3.70-11.00 [facility] Comment on above: Order Comment: Speci men Type: BLOOD SPECIMENOrdering Facility: [facility] Address: [address] [place], [place] [address] Performed By: #### 5 8410-2 ####[facility]ATORYCLIA [id number] [place] [id number] [facility] EKGon 11-20-2023 Electrocardiogram Ventricular Rate : 1 18 BPM Atrial Rate : 87 BPM P-R Interval : 212 ms QRS Duration : 88 ms Q-T Interval : 336 ms QTC Calculation(Bazett) : 470 ms Calculated P Charlotte : 55 degrees Calculated R Charlotte : 16 degrees Calculated T Charlotte : 57 degrees Sinus rhythm 1st degree AV block with frequent and consecutive Premature ventricular complexes Low voltage QRS Abnormal ECG When compared with ECG of 20-Nov-2023 09:06, Frequent PVC and PVC couplets noted on current EKG. Confirmed by JASON MORALES MD ([id number]) on 11/21/2023 4:43:02 PM NAME : DERRELL HOYT PID : [id number] : 1965 Gender : Male Race : Unknown ORD : Procedure Date : Nov 20 2023 16:13:23 Edit Date : Nov 21 2023 16:43:04 Diagnosis: Sinus rhythm 1st degree AV block with frequent and consecutive Premature ventricular complexes Low voltage QRS Abnormal ECG When compared with ECG of 20-Nov-2023 09:06, Frequent PVC and PVC couplets noted on current EKG. Confirmed by JASON MORALES MD ([id number]) on 11/21/2023 4:43:02 PM Test Reason : RT Location : 13 : CCU CCU4 Overread By : JASON MORALES MD Edited By : JASON MORALES MD Referred By : CADY SANCHEZ Acquired by : PAULIE LICEA Normal [facility] HbA1c (Bld)on 11-20-2023 Average glucose Estimated from glycated hemoglobin (Bld) [Mass/Vol] 217 mg/dL Normal [facility] Comment on above: Order Comment: Yogi plascencia Type: BLOOD SPECIMEN Ordering Facility: [facility] Address: [address] [place] [address] Result Comment: eAG: (Estimated average glucose) is a calculated value from HgbA1c and is account representative of the average blood glucose level in the last 2-3 month period. Performed By: #### 3 4528-0, 50507-1 #### [facility] CLIA [id number] [address] [place] [address] [place] HbA1c (Bld) [Mass fraction] 9.2 % High 4.3-5.6 [facility] Comment on above: Order Comment: Yogi plascencia Type: BLOOD SPECIMEN Ordering Facility: [facility] Address: [address] [place] [address] Result Comment: [place] Diabetes Association guidelines indicate that patients with HgbA1c in the range 5.7-6.4% are at increased risk for development of diabetes, and intervention by lifestyle modification may be beneficial. HgbA1c greater or equal to 6.5% is considered diagnostic of diabetes. Performed By: #### 3 4528-0, 53548-6 #### [facility] CLIA [id number] [address] [place] [address] [place] Lipid 1996 panelon Cholesterol [Mass/Vol] 90 mg/dL Normal 0-199 [facility] Comment on above: Order Comment: Speci men Type: BLOOD SPECIMENOrdering Facility: [facility] Address: [address] [place] [address] Result Comment: <200 mg/dL, Desirable 200-239 mg/dL, Borderline high >239 mg/dL, High Performed By: #### 2 4321-2, 59550-5, ####[facility]ATORYCLIA [id number] [place] [id number] [facility] Cholesterol in HDL [Mass/Vol] 24 mg/dL Low >40 [facility] Comment on above: Order Comment: Speci men Type: BLOOD SPECIMENOrdering Facility: [facility] Address: [address] [place] [address] Result Comment: 40-5 9 mg/dL, Acceptable >59 mg/dL, High: Negative risk factor for coronary heart disease <40 mg/dL, Low: Positive risk factor for coronary heart disease Performed By: #### 2 4321-2, 66446-2, ####[facility]ATORYCLIA [id number] [place] [address] [place] Cholesterol in LDL [Mass/Vol] 38 mg/dL Normal 0-129 [facility] Comment on above: Order Comment: Speci men Type: BLOOD SPECIMENOrdering Facility: [facility] Address: [address] [place] [address] Result Comment: <100 mg/dL, Optimal 100-129 mg/dL, Near optimal/above optimal 130-159 mg/dL, Borderline high 160-189 mg/dL, High >189 mg/dL, Very high Secondary prevention optimal LDL Cholesterol levels are recommended to be < 70 mg/dL Performed By: #### 2 4321-2, 71749-3, ####[facility]ORYCLIA [id number] [place] [id number] [facility] OF [place] Cholesterol in LDL/Cholesterol in HDL [Mass ratio] 1.58 {ratio} Normal <2.54 [facility] Comment on above: Order Comment: Speci men Type: BLOOD SPECIMENOrdering Facility: [facility] Address: [address] [place] [address] Result Comment: Efraín dickerson: 1. National Cholesterol Education Program ATP III Guideline At-A-Glance Quick Desk Reference: National Heart, Lung, and Blood [place]. National Institutes of Health. 2001: NIH Publication No. 01-3305. 2. An International Atherosclerosis Society position paper: global recommendations for the management of dyslipidemia: executive summary, Atherosclerosis. 2014: 232(2):410-413. Performed By: #### 2 4321-2, 47230-9, ####[facility]ATORYCLIA [id number] [place] [id number] [place] Cholesterol in VLDL [Mass/Vol] 28 mg/dL Normal <30 [facility] Comment on above: Order Comment: Speci men Type: BLOOD SPECIMENOrdering Facility: [facility] Address: [address] [place] [address] Performed By: #### 2 4321-2, 54014-9, ####[facility]ORATORYCLIA [id number] [place] [id number] [place] Cholesterol non HDL [Mass/Vol] 66 mg/dL Normal <130 [facility] Comment on above: Order Comment: Yogi plascencia Type: BLOOD SPECIMENOrdering Facility: [facility] Address: [address] [place] [address] Result Comment: <130 mg/dL, Optimal 130-159 mg/dL, Near optimal/above optimal 160-189 mg/dL, Borderline high 190-219 mg/dL, High >219 mg/dL, Very high Secondary prevention optimal non HDL Cholesterol levels are recommended to be <100 mg/dL Performed By: #### 2 4321-2, 80743-5, ####[facility]ATORYCLIA [id number] [place] [id number] [facility] OF [place] Cholesterol.total/Ch olesterol in HDL [Mass ratio] 3.75 {ratio} Normal <5.10 [facility] Comment on above: Order Comment: Elpidioi men Type: BLOOD SPECIMENOrdering Facility: [facility] Address: [address] [place] [address] Performed By: #### 2 4321-2, 36126-2, ####[facility]ORATORYCLIA [id number] [place] [address] [place] FASTING TIME 8 hours Normal [facility] Comment on above: Order Comment: Speci men Type: BLOOD SPECIMENOrdering Facility: [facility] Address: [address] [place] [address] Performed By: #### 2 4321-2, 61669-3, ####[facility]ATORYCLIA [id number] [place] [id number] [place] Triglyceride [Mass/Vol] 140 mg/dL Normal 30-149 [facility] Comment on above: Order Comment: Speci men Type: BLOOD SPECIMENOrdering Facility: [facility] Address: [address] [place] [address] Result Comment: <150 mg/dL, Normal 150-199 mg/dL, Borderline high 200-499 mg/dL, High >499 mg/dL, Very high Patients receiving either N-Acetylcysteine (NAC) or Metamizole prior to venipuncture, may have falsely depressed results. Performed By: #### 2 4321-2, 95452-8, ####[facility]ATORYCLIA [id number] [place] [id number] [place] Magnesium SerPl-mCncon 11-19 Magnesium [Mass/Vol] 2.2 mg/dL Normal 1.6-2.6 [facility] Comment on above: Order Comment: Speci men Type: BLOOD SPECIMENOrdering Facility: [facility] Address: [address] [place] [address] Performed By: #### 2 4321-2, 94490-0, ####[facility] LABORATORYCLIA [id number] [place] [address] [place] NM CARDIAC PERF STRESS/PHARM on 11-20-2023 NM CARDIAC PERF STRESS/PHARM * * *Final Report* * * DATE OF EXAM: Nov 20 2023 10:40AM RHN 0006 - NM CARDIAC PERF STRESS/PHARM / PROCEDURE REASON: Chest pain/anginal equiv, high CAD risk, treadmill candidate * * * * Physician Interpretation * * * * Stress Certified Prosthetist Vice President Report: [facility] Date of service: 11/20/2023 8:31:18 AM Supervising physician: Jason Morales MD PATIENT: Name: MR. DERRELL HOYT Age: 58 years Gender: M The supervising physician was in the department and immediately available. * * * Final * * * PATIENT: Name: MR. DERRELL HOYT Age: 58 years Gender: M CONCLUSIONS: 1. SPECT Perfusion Study: Abnormal. 2. No evidence of scarred myocardium. 3. There is mild (<10%) ischemia in the territory of the LCX. 4. Left ventricle is normal in size. The left ventricle systolic function is hyperdynamic. 5. Right ventricle is normal in size. The right ventricle systolic function is normal. 6. This is an indeterminate risk scan. Gated Stress FBP LVEF % 75 Prior Study Comparison No prior nuclear cardiology exam available for comparison. Nuclear Med Report:1-Day Gated SPECT Myocardial Perfusion with Regadenoson Stress: Myocardial perfusion imaging was performed at rest 30 minutes following the IV injection of the radiotracer. The patient received 0.4 mg of regadenoson, via rapid IV push, immediately followed by radiotracer IV. Gated post stress tomographic imaging was performed 30 to 60 minutes later. See administered radiotracer and doses below. [facility] Date of service: 11/20/2023 8:31:18 AM Ordering Physician: CADY SANCHEZ. Requesting Physician: CADY SANCHEZ Indication: Arrhythmia Interpreting physician: Jason Morales MD Previous Cardiovascular Interventions: Diagnostic cath (2021) PCI (2021) Height: 185.42 cm BSA: 2.68 m? Weight: 139.71 kg BMI: 40.6 kg/m? Exam Type: Rest Stress Radiopharm: Tc-99m Tetrofosmin Tc-99m Tetrofosmin Dosage(mCi): 16.9 53.8 Atten Correction: not performed not performed Stress Agent: Regadenoson 0.4mg Supply provided from [facility] Resting Blood Press: 124/67 mmHg Image Quality The overall study imaging quality was deemed to be good. FINDINGS: Stress FBP Gated Stress FBP LVEF: 75 % ED Volume: 175 ml ES Volume: 44 ml TID: 1.11 Perfusion Findings Stress FBP - Summed Score=4 There is a moderate perfusion defect in the mid inferolateral segment. There is a mild perfusion defect in the basal inferolateral segment and apical lateral segment. All remaining scored segments show normal perfusion. Rest FBP - Summed Score=5 There is a moderate perfusion defect in the basal inferolateral segment and apical lateral segment. There is a mild perfusion defect in the mid inferolateral segment. All remaining scored segments show normal perfusion. Gated Stress FBP - Summed Score=4 There is a moderate perfusion defect in the mid inferolateral segment. There is a mild perfusion defect in the basal inferolateral segment and apical lateral segment. All remaining scored segments show normal perfusion. Stress FBP Rest FBP Gated Stress FBP Summed Score=4 Summed Score=5 Summed Score=4 LEFT VENTRICLE The left ventricle is normal in size. Left ventricular systolic function is hyperdynamic. Right Ventricle The right ventricle is normal in size. Right ventricle systolic function is normal. Stress Test Findings: There is no evidence of scarring. The left ventricular cavity size is unchanged with stress. * * * Final * * * Stress ECG Report: [facility] Date of service: 11/20/2023 8:31:18 AM Ordering physician: CADY SANCHEZ citizen participation specialist: Stephanie Flower Interpreting physician: Jason Morales MD Patient name: MR. DERRELL HOYT Age: 58 years Gender: M Height: 185.42 cm BSA: 2.68 m? Weight: 139.71 kg BMI: 40.6 kg/m? Indication: Encounter for screening for cardiovascular disorders and Abnormal resting ECG Stress ECG Conclusion: Conclusion: Non-diagnostic due to inadequate HR response Stress ECG Summary: The patient's resting heart rate was 81 bpm and blood pressure was 124/67 mmHg. The patient received regadenoson 0.4 mg IVP over approximately 15 seconds followed immediately by injection of nuclear isotope. The test was terminated due to end of protocol. Other symptoms during the test included SOB and headache. The maximum heart rate was 99 bpm, which is 61% of the predicted heart rate for age. This is an inadequate heart rate response. Peak blood pressure was 138/75 mmHg. The double product achieved was [address]. Previ (more content not included)... Normal [facility] Urate SerPl-mCncon Urate [Mass/Vol] 6.6 mg/dL High 2.6-6.0 [facility] Comment on above: Order Comment: Yogi plascencia Type: BLOOD SPECIMENOrdering Facility: [facility] Address: [address] [place] [address] Result Comment: Diane ents receiving Metamizole prior to venipuncture, may have falsely depressed results. Performed By: #### 3 084-1 ####[facility] [id number] [place] [address] [place] Basic metabolic 2000 panelon 11-19-2023 Anion gap [Moles/Vol] 3 mmol/L Low 5-16 [facility] Comment on above: Order Comment: Yogi plascencia Type: BLOOD SPECIMEN Ordering Facility: [facility] Address: [address] [place] [address] Performed By: #### 1 995-0 #### [facility] CLIA [id number] [address] [place] [address] [place] Calcium [Mass/Vol] 9.2 mg/dL Normal 8.5-10.5 [facility] Comment on above: Order Comment: Yogi plascencia Type: BLOOD SPECIMEN Ordering Facility: [facility] Address: [address] [place] [address] Performed By: #### 1 995-0 #### [facility] CLIA [id number] [address] [place] [address] [place] Chloride [Moles/Vol] 101 mmol/L Normal 98-107 [facility] Comment on above: Order Comment: Speci men Type: BLOOD SPECIMEN Ordering Facility: [facility] Address: [address] [place] [address] Performed By: #### 1 995-0 #### [facility] CLIA [id number] [address] [place] [address] [place] CO2 [Moles/Vol] 31 mmol/L Normal 21-32 [facility] Comment on above: Order Comment: Speci men Type: BLOOD SPECIMEN Ordering Facility: [facility] Address: [address] [place] [address] Performed By: #### 1 995-0 #### [facility] CLIA [id number] [address] [place] [address] [place] Creatinine [Mass/Vol] 0.61 mg/dL Normal 0.50-1.40 [facility] Comment on above: Order Comment: Speci men Type: BLOOD SPECIMEN Ordering Facility: [facility] Address: [address] [place] [address] Result Comment: Diane ents receiving either N-Acetylcysteine (NAC) or Metamizole prior to venipuncture, may have falsely depressed results. Performed By: #### 1 995-0 #### [facility] CLIA [id number] [address] [place] [address] [place] Creatinine and Glomerular filtration rate.predicted panel (S/P/Bld) 111 mL/min/1.73m??? Normal >=60 [facility] Comment on above: Order Comment: Speci men Type: BLOOD SPECIMEN Ordering Facility: [facility] Address: [address] [place] [address] Result Comment: Sudha mated Glomerular Filtration Rate (eGFR) is calculated using the 2020 CKD-EPI creatinine equation. This equation utilizes serum creatinine, sex, and age as parameters. The creatinine assay has traceable calibration to isotope dilution-mass spectrometry. Refer to KDIGO guidelines for clinical interpretation. In patients with unstable renal function, e.g. those with acute kidney injury, the eGFR may not accurately reflect actual GFR. Performed By: #### 1 995-0 #### [facility] CLIA [id number] [address] [place] [address] [place] Glucose [Mass/Vol] 113 mg/dL High 70-100 [facility] Comment on above: Order Comment: Yogi plascencia Type: BLOOD SPECIMEN Ordering Facility: [facility] Address: [facility] [place] [id number] Result Comment: The [place] Diabetes Association (ADA) provides guidance for cutoff values for fasting glucose and random glucose. The ADA defines fasting as no caloric intake for at least 8 hours. Fasting plasma glucose results between 100 to 125 mg/dL indicate increased risk for diabetes (prediabetes). Fasting plasma glucose results greater than or equal to 126 mg/dL meet the criteria for diagnosis of diabetes. In the absence of unequivocal hyperglycemia, results should be confirmed by repeat testing. In a patient with classic symptoms of hyperglycemia or hyperglycemic crisis, random plasma glucose results greater than or equal to 200 mg/dL meet the criteria for diagnosis of diabetes. Reference: Standards of Medical Care in Diabetes 2016, [place] [employer]. Diabetes Care. 2016.39(Suppl 1). Results may be falsely elevated after the administration of Sulfapyridine. Results may be falsely depressed after the administration of Sulfasalazine. Performed By: #### 1 995-0 #### [facility] CLIA [id number] [address] [place] [address] [place] Potassium [Moles/Vol] 3.8 mmol/L Normal 3.5-5.1 [facility] Comment on above: Order Comment: Yogi plascencia Type: BLOOD SPECIMEN Ordering Facility: [facility] Address: [address] [place] [address] Performed By: #### 1 995-0 #### [facility] CLIA [id number] [address] [place] [address] [place] Sodium [Moles/Vol] 135 mmol/L Low 136-145 [facility] Comment on above: Order Comment: Yogi plascencia Type: BLOOD SPECIMEN Ordering Facility: [facility] Address: [address] [place] [address] Performed By: #### 1 995-0 #### [facility] CLIA [id number] [address] [place] [address] [place] Urea nitrogen [Mass/Vol] 9 mg/dL Normal - [facility] Comment on above: Order Comment: Speci men Type: BLOOD SPECIMEN Ordering Facility: [facility] Address: [address] [place] [address] Performed By: #### 1 995-0 #### [facility] CLIA [id number] [address] [place] [address] [place] CBC W Auto Differential pane l (Bld)on 11-19-2023 Basophils (Bld) [#/Vol] 0.05 10*3/uL Normal <0.11 [facility] Comment on above: Order Comment: Speci men Type: BLOOD SPECIMEN Ordering Facility: [facility] Address: [address] [place] [address] Performed By: #### 1 995-0 #### [facility] CLIA [id number] [address] [place] [address] [place] Basophils/100 WBC (Bld) 0.4 % Normal [facility] Comment on above: Order Comment: Speci men Type: BLOOD SPECIMEN Ordering Facility: [facility] Address: [address] [place] [address] Performed By: #### 1 995-0 #### [facility] CLIA [id number] [address] [place] [address] [place] Differential cell count method Nom (Bld) Auto Normal [facility] Comment on above: Order Comment: Speci men Type: BLOOD SPECIMEN Ordering Facility: [facility] Address: [address] [place] [address] Performed By: #### 1 995-0 #### [facility] CLIA [id number] [address] [place] [address] [place] Eosinophils (Bld) [#/Vol] 0.42 10*3/uL Normal <0.46 [facility] Comment on above: Order Comment: Speci men Type: BLOOD SPECIMEN Ordering Facility: [facility] Address: [address] [place] [address] Performed By: #### 1 995-0 #### [facility] CLIA [id number] [address] [place] [address] [place] Eosinophils/100 WBC (Bld) 3.3 % Normal [facility] Comment on above: Order Comment: Speci men Type: BLOOD SPECIMEN Ordering Facility: [facility] Address: [address] [place] [address] Performed By: #### 1 995-0 #### [facility] CLIA [id number] [address] [place] [address] [place] Erythrocyte distribution width (RBC) [Ratio] 17.7 % High 11.5-15.0 [facility] Comment on above: Order Comment: Speci men Type: BLOOD SPECIMEN Ordering Facility: [facility] Address: [address] [place] [address] Performed By: #### 1 995-0 #### [facility] CLIA [id number] [address] [place] [address] [place] Hematocrit (Bld) [Volume fraction] 39.5 % Normal 39.0-51.0 [facility] Comment on above: Order Comment: Speci men Type: BLOOD SPECIMEN Ordering Facility: [facility] Address: [address] [place] [address] Performed By: #### 1 995-0 #### [facility] CLIA [id number] [address] [place] [address] [place] Hemoglobin (Bld) [Mass/Vol] 12.1 g/dL Low 13.0-17.0 [facility] Comment on above: Order Comment: Speci men Type: BLOOD SPECIMEN Ordering Facility: [facility] Address: [address] [place] [address] Performed By: #### 1 995-0 #### [facility] CLIA [id number] [address] [place] [address] [place] Immature granulocytes (Bld) [#/Vol] 0.06 10*3/uL Normal <0.10 [facility] Comment on above: Order Comment: Speci men Type: BLOOD SPECIMEN Ordering Facility: [facility] Address: [address] [place] [address] Performed By: #### 1 995-0 #### [facility] CLIA [id number] [address] [place] [address] [place] Immature granulocytes/100 WBC (Bld) 0.5 % Normal [facility] Comment on above: Order Comment: Speci men Type: BLOOD SPECIMEN Ordering Facility: [facility] Address: [address] [place] [address] Performed By: #### 1 995-0 #### [facility] IA [id number] [address] [place] [address] [place] Lymphocytes (Bld) [#/Vol] 2.44 10*3/uL Normal 1.00-4.00 [facility] Comment on above: Order Comment: Speci men Type: BLOOD SPECIMEN Ordering Facility: [facility] Address: [address] [place] [address] Performed By: #### 1 995-0 #### [facility] IA [id number] [address] [place] [address] [place] Lymphocytes/100 WBC (Bld) 19.3 % Normal [facility] Comment on above: Order Comment: Speci men Type: BLOOD SPECIMEN Ordering Facility: [facility] Address: [address] [place] [address] Performed By: #### 1 995-0 #### [facility] IA [id number] [address] [place] [address] [place] MCH (RBC) [Entitic mass] 23.9 pg Low 26.0-34.0 [facility] Comment on above: Order Comment: Speci men Type: BLOOD SPECIMEN Ordering Facility: [facility] Address: [address] [place] [address] Performed By: #### 1 995-0 #### [facility] CLIA [id number] [address] [place] [address] [place] MCHC (RBC) [Mass/Vol] 30.6 g/dL Normal 30.5-36.0 [facility] Comment on above: Order Comment: Speci men Type: BLOOD SPECIMEN Ordering Facility: [facility] Address: [address] [place] [address] Performed By: #### 1 995-0 #### [facility] CLIA [id number] [address] [place] [address] [place] MCV (RBC) [Entitic vol] 77.9 fL Low 80.0-100.0 [facility] Comment on above: Order Comment: Speci men Type: BLOOD SPECIMEN Ordering Facility: [facility] Address: [address] [place] [address] Performed By: #### 1 995-0 #### [facility] CLIA [id number] [address] [place] [address] [place] Monocytes (Bld) [#/Vol] 0.88 10*3/uL High <0.87 [facility] Comment on above: Order Comment: Speci men Type: BLOOD SPECIMEN Ordering Facility: [facility] Address: [address] [place] [address] Performed By: #### 1 995-0 #### [facility] CLIA [id number] [address] [place] [address] [place] Monocytes/100 WBC (Bld) 6.9 % Normal [facility] Comment on above: Order Comment: Speci men Type: BLOOD SPECIMEN Ordering Facility: [facility] Address: [address] [place] [address] Performed By: #### 1 995-0 #### [facility] CLIA [id number] [address] [place] [address] [place] Neutrophils (Bld) [#/Vol] 8.82 10*3/uL High 1.45-7.50 [facility] Comment on above: Order Comment: Speci men Type: BLOOD SPECIMEN Ordering Facility: [facility] Address: [address] [place] [address] Performed By: #### 1 995-0 #### [facility] CLIA [id number] [address] [place] [address] [place] Neutrophils/100 WBC (Bld) 69.6 % Normal [facility] Comment on above: Order Comment: Speci men Type: BLOOD SPECIMEN Ordering Facility: [facility] Address: [address] [place] [address] Performed By: #### 1 995-0 #### [facility] CLIA [id number] [address] [place] [address] [place] Nucleated RBC (Bld) [#/Vol] 10*3/uL Normal <0.01 [facility] Comment on above: Order Comment: Speci men Type: BLOOD SPECIMEN Ordering Facility: [facility] Address: [address] [place] [address] Performed By: #### 1 995-0 #### [facility] CLIA [id number] [address] [place] [address] [place] Nucleated RBC/100 WBC (Bld) [Ratio] 0.0 /100 WBC Normal [facility] Comment on above: Order Comment: Speci men Type: BLOOD SPECIMEN Ordering Facility: [facility] Address: [address] [place] [address] Performed By: #### 1 995-0 #### [facility] CLIA [id number] [address] [place] [address] [place] Platelet mean volume (Bld) [Entitic vol] 10.1 fL Normal 9.0-12.7 [facility] Comment on above: Order Comment: Speci men Type: BLOOD SPECIMEN Ordering Facility: [facility] Address: [address] [place] [address] Performed By: #### 1 995-0 #### [facility] CLIA [id number] [address] [place] [address] [place] Platelets (Bld) [#/Vol] 193 10*3/uL Normal 150-400 [facility] Comment on above: Order Comment: Speci men Type: BLOOD SPECIMEN Ordering Facility: [facility] Address: [address] [place], [place] [id number] Performed By: #### 1 995-0 #### [facility] CLIA [id number] [address] [place], [place] [id number] [facility] [place] RBC (Bld) [#/Vol] 5.07 10*6/uL Normal 4.20-6.00 [facility] Comment on above: Order Comment: Speci men Type: BLOOD SPECIMEN Ordering Facility: [facility] Address: [address] [place], [place] [id number] Performed By: #### 1 995-0 #### [facility] CLIA [id number] [address] [place], [place] [id number] [facility] WBC (Bld) [#/Vol] 12.67 10*3/uL High 3.70-11.00 [facility] Comment on above: Order Comment: Speci men Type: BLOOD SPECIMEN Ordering Facility: [facility] Address: [address] [place] [address] Performed By: #### 1 995-0 #### [facility] CLIA [id number] [address] [place], [place] [id number] [facility] ECG COMPLETEon 11-19-2023 ECG COMPLETE Ventricular Rate : 8 5 BPM Atrial Rate : 85 BPM P-R Interval : 182 ms QRS Duration : 90 ms Q-T Interval : 376 ms QTC Calculation(Bazett) : 447 ms Calculated P [place] : 36 degrees Calculated R [place] : 13 degrees Calculated T [place] : 42 degrees Normal sinus rhythm Low voltage QRS Borderline ECG When compared with ECG of 18-Nov-2023 23:05, No significant change was found Confirmed by JASON MORALES MD ([id number]) on 11/21/2023 3:34:16 PM NAME : DERRELL HOYT PID : [id number] : 1965 Gender : Male Race : Unknown ORD : [id number] Procedure Date : Nov 19 2023 06:07:47 Edit Date : Nov 21 2023 15:34:19 Diagnosis: Normal sinus rhythm Low voltage QRS Borderline ECG When compared with ECG of 18-Nov-2023 23:05, No significant change was found Confirmed by JASON MORALES MD ([id number]) on 11/21/2023 3:34:16 PM Test Reason : RT Location : 13 : [facility] CCU Overread By : JASON MORALES MD Edited By : JASON MORALES MD Referred By : HONORIO OVALLE Acquired by : OMAR SIM [facility] ECHOon 11-19-2023 Echocardiography Echocardiography Rep ort: Transthoracic Echo [facility] Date of service: 11/19/2023 9:10:02 AM Ordering physician: EDY BHATIA Indication: [place] Technologist: Clarence Riley RDCS Interpreting physician: Rachel Silva MD PATIENT: Name: DERRELL HOYT : 1965 Age: 58 years Gender: M History of hypertension, diabetes mellitus and coronary artery disease. Primary rhythm: sinus. Height: 185.40 cm BSA: 2.69 m Weight: 140.00 kg BMI: 40.7 kg/m Heart rate 86 bpm Blood pressure 120/60 mmHg Technically difficult exam due to body habitus. Color Doppler was utilized to interrogate the cardiac valves assessed and spectral Doppler was utilized to determine the flow velocities and pressure gradients reported in this exam. MEASUREMENTS: Value Indexed Normal Max aortic dimension 3.5 cm Ao < 3.8 Left atrial volume 53 ml (biplane A-L) 20 ml/m Vanesa <= 34 LV ID (diastole) 4.5 cm (2D) 1.68 cm/m LV ID (systole) 3.3 cm (2D) 1.23 cm/m IVS, leaflet tips 1.6 cm (2D) Posterior wall thickness 1.6 cm (2D) Left ventricular mass 305 g (2D) 113 g/m LV stroke volume 130 ml (2D biplane) LVOT stroke volume 57 ml 22 ml/m LV end diastolic volume 207 ml (2D biplane) 76.9 ml/m 34<=EDVi<75 LV end systolic volume 77 ml (2D biplane) 28.5 ml/m Ejection Fraction 63 % (2D biplane) EF > 52 FINDINGS: LEFT VENTRICLE The left ventricle is mildly dilated. There is moderate concentric left ventricular hypertrophy. Left ventricular systolic function is normal. Left ventricular diastolic function was not evaluated due to inconsistent or technically suboptimal data. Mitral annular lateral E/e': 4.8. Mitral annular septal E/e': 6.7. Definity contrast used for endocardial border detection. Wall Motion: All scored segments are normal. RIGHT VENTRICLE The right ventricle is unseen or not interrogated. RV systolic tissue Doppler velocity is 15.0 cm/s. Tricuspid annular displacement is 2.1 cm. Estimated right ventricular systolic pressure is 7 mmHg consistent with normal pulmonary artery pressures. Estimated right atrial pressure is 3 mmHg based on IVC assessment. LEFT ATRIUM Unable to reliably measure LA volume due to technical limitations. RIGHT ATRIUM Unable to reliably measure RA volume due to technical limitations. Inferior Vena Cava: The inferior vena cava appears normal measuring 2.1 cm. The vessel decreases greater than 50 percent with inspiration. MITRAL VALVE [place] mitral valve. There is no mitral stenosis. There is trace mitral valve regurgitation. There is no thickening. The peak mitral valve gradient is 3 mmHg. The mean mitral valve gradient is 2 mmHg. The pressure half time is 72 msec. The peak mitral E/A ratio is 0.78. The average mitral E/e' ratio is 5.8. The mitral flow deceleration time is 248 msec. TRICUSPID VALVE [place] tricuspid valve. There is no tricuspid stenosis. There is trace tricuspid valve regurgitation. There is no calcification. AORTIC VALVE The aortic valve was not seen or not interrogated. There is no aortic valve stenosis. There is no aortic valve regurgitation. The peak gradient is 6 mmHg (peak velocity = 120.5 cm/s). The mean gradient is 3 mmHg. The LVOT mean velocity is 60.0 cm/s. The LVOT diameter is 2.0 cm. The aortic VTI is 22.0 cm. The mean velocity in the aortic valve is 79.6 cm/s. The dimensionless valve index is 0.83. AV area is 2.61 cm (0.97 cm /m ) by continuity, VTI. The LVOT stroke volume index is 22 ml/m . PULMONIC VALVE The pulmonic valve was not seen or not interrogated. The peak gradient is 5 mmHg. AORTA The visualized aorta is normal in size. Measurements - Sinus: 3.5 cm. Sinotubular junction 3.4 cm. Mid ascending aorta 3.5 cm. INTERATRIAL SEPTUM There is no patent foramen ovale as detected by Doppler. PERICARDIUM The pericardium is normal. CONCLUSIONS: - Technically difficult exam due to body habitus. - Exam indication: VT - The left ventricle is mildly dilated. There is moderate concentric left ventricular hypertrophy. Left ventricular systolic function is normal. EF = 63 5% (2D biplane) Definity contrast used for endocardial border detection. No RWMA - There is no patent foramen ovale as detected by Doppler. rest of lory study is difficult due to body habitus - Exam was compared with the prior OUTSIDE echocardiographic exam performed on 01/19/2021 * * * Final * * * [facility] [employer] [facility] : [id number] Normal [facility] Ferritin SerPl-mCncon 2023 Ferritin [Mass/Vol] 12.5 ng/mL Low 24.0-388.0 [facility] Comment on above: Order Comment: Speci men Type: BLOOD SPECIMEN Ordering Facility: [facility] Address: [address] [place], [place] [address] Performed By: #### 1 995-0 #### [facility] CLIA [id number] [address] [place] [address] [place] Gas and Carbon monoxide pane l (BldV)on 11-19-2023 Base excess Calc (BldV) [Moles/Vol] 2 mmol/L Normal 0-2 [facility] Comment on above: Order Comment: Speci men Type: BLOOD SPECIMEN Ordering Facility: [facility] Address: [address] [place] [address] Performed By: #### 1 995-0 #### [facility] CLIA [id number] [address] [place] [address] [place] Body temperature 98.06 [degF] Normal [facility] Comment on above: Order Comment: Speci men Type: BLOOD SPECIMEN Ordering Facility: [facility] Address: [address] [place] [address] Performed By: #### 1 995-0 #### [facility] CLIA [id number] [address] [place] [address] [place] Calcium.ionized (Bld) [Mass/Vol] 1.09 mmol/L Normal 1.08-1.30 [facility] Comment on above: Order Comment: Speci men Type: BLOOD SPECIMEN Ordering Facility: [facility] Address: [address] [place] [address] Performed By: #### 1 995-0 #### [facility] CLIA [id number] [address] [place] [address] [place] Carboxyhemoglobin (BldV) [Mass fraction] 2.2 % High 0.0-2.0 [facility] Comment on above: Order Comment: Speci men Type: BLOOD SPECIMEN Ordering Facility: [facility] Address: [address] [place] [address] Result Comment: Carb oxyhemoglobin Reference Range for Smokers: 2.0-8.0% Performed By: #### 1 995-0 #### [facility] CLIA [id number] [address] [place] [address] [place] CO2 (BldV) [Partial pressure] 43 mm[Hg] Normal 42-55 [facility] Comment on above: Order Comment: Speci men Type: BLOOD SPECIMEN Ordering Facility: [facility] Address: [address] [place] [address] Performed By: #### 1 995-0 #### [facility] CLIA [id number] [address] [place] [address] [place] CO2 adjusted to patient's actual temperature (BldV) [Partial pressure] Normal [facility] Comment on above: Order Comment: Speci men Type: BLOOD SPECIMEN Ordering Facility: [facility] Address: [address] [place] [address] Performed By: #### 1 995-0 #### [facility] CLIA [id number] [address] [place] [address] [place] Glucose [Mass/Vol] 109 mg/dL High 60-105 [facility] Comment on above: Order Comment: Speci men Type: BLOOD SPECIMEN Ordering Facility: [facility] Address: [address] [place] [address] Performed By: #### 1 995-0 #### [facility] CLIA [id number] [address] [place] [address] [place] HCO3 (Bld) [Moles/Vol] 27 mmol/L Normal 24-28 [facility] Comment on above: Order Comment: Speci men Type: BLOOD SPECIMEN Ordering Facility: [facility] Address: [address] [place] [address] Performed By: #### 1 995-0 #### [facility] CLIA [id number] [address] [place] [address] [place] Hemoglobin (Bld) [Mass/Vol] 13.5 g/dL Normal 13.0-17.0 [facility] Comment on above: Order Comment: Speci men Type: BLOOD SPECIMEN Ordering Facility: [facility] Address: [address] [place] [address] Performed By: #### 1 995-0 #### [facility] CLIA [id number] [address] [place] [address] [place] Lactate [Moles/Vol] 1.7 mmol/L Normal 0.5-2.2 [facility] Comment on above: Order Comment: Speci men Type: BLOOD SPECIMEN Ordering Facility: [facility] Address: [address] [place] [address] Performed By: #### 1 995-0 #### [facility] CLIA [id number] [address] [place] [address] [place] Methemoglobin (Bld) [Mass fraction] 0.2 % Normal 0.0-1.5 [facility] Comment on above: Order Comment: Speci men Type: BLOOD SPECIMEN Ordering Facility: [facility] Address: [address] [place] [address] Performed By: #### 1 995-0 #### [facility] CLIA [id number] [address] [place] [address] [place] O2 THERAPY RA=Room Air Normal [facility] Comment on above: Order Comment: Speci men Type: BLOOD SPECIMEN Ordering Facility: [facility] Address: [address] [place], [place] [address] Performed By: #### 1 995-0 #### [facility] CLIA [id number] [address] [place] [address] [facility] [place] Oxygen (BldV) [Partial pressure] 98 mm[Hg] High 35-45 [facility] Comment on above: Order Comment: Speci men Type: BLOOD SPECIMEN Ordering Facility: [facility] Address: [address] [place] [address] Performed By: #### 1 995-0 #### [facility] [place] [id number] [address] [place] [address] [place] Oxygen adjusted to patient's actual temperature (BldV) [Partial pressure] [facility] Comment on above: Order Comment: Speci men Type: BLOOD SPECIMEN Ordering Facility: [facility] Address: [address] [place] [address] Performed By: #### 1 995-0 #### [facility] [place] [id number] [address] [place] [address] [place] Oxygen saturation in Venous blood 94 % High 60-85 [facility] Comment on above: Order Comment: Speci men Type: BLOOD SPECIMEN Ordering Facility: [facility] Address: [address] [place] [address] Performed By: #### 1 995-0 #### [facility] [place] [id number] [address] [place] [address] [place] Oxyhemoglobin (BldV) [Mass fraction] 94 % Normal 4-98 [facility] Comment on above: Order Comment: Speci men Type: BLOOD SPECIMEN Ordering Facility: [facility] Address: [address] [place] [address] Performed By: #### 1 995-0 #### [facility] CLIA [id number] [address] [place] [address] [place] pH (BldV) 7.42 [pH] Normal 7.32-7.42 [facility] Comment on above: Order Comment: Speci men Type: BLOOD SPECIMEN Ordering Facility: [facility] Address: [address] [place] [address] Performed By: #### 1 995-0 #### [facility] CLIA [id number] [address] [place] [address] STATES [facility] pH adjusted to patient's actual temperature (BldV) Normal [facility] Comment on above: Order Comment: Speci men Type: BLOOD SPECIMEN Ordering Facility: [facility] Address: [address] [place] [address] Performed By: #### 1 995-0 #### [facility] CLIA [id number] [address] [place] [address] [place] Potassium [Moles/Vol] 3.8 mmol/L Normal 2.5-6.0 [facility] Comment on above: Order Comment: Speci men Type: BLOOD SPECIMEN Ordering Facility: [facility] Address: [address] [place] [address] Performed By: #### 1 995-0 #### [facility] CLIA [id number] [address] [place] [address] [place] Sodium [Moles/Vol] 136 mmol/L Normal 136-144 [facility] Comment on above: Order Comment: Speci men Type: BLOOD SPECIMEN Ordering Facility: [facility] Address: [address] [place] [address] Performed By: #### 1 995-0 #### [facility] CLIA [id number] [address] [place] [address] [place] Iron and Iron binding capaci ty panelon 11-19-2023 Iron [Mass/Vol] 26 ug/dL Low 65-175 [facility] Comment on above: Order Comment: Speci men Type: BLOOD SPECIMEN Ordering Facility: [facility] Address: [address] [place], [place] [address] Result Comment: Diane ents treated with metal-binding drugs (e.g.deferoxamine) may have depressed iron values, as chelated iron may not properly react in the Siemens iron assay. Performed By: #### 1 995-0 #### [facility] CLIA [id number] [address] [place] [address] [place] Iron binding capacity [Mass/Vol] 329 ug/dL Normal 221-481 [facility] Comment on above: Order Comment: Speci men Type: BLOOD SPECIMEN Ordering Facility: [facility] Address: [address] [place] [address] Performed By: #### 1 995-0 #### [facility] CLIA [id number] [address] [place] [address] [place] Iron/TIBC [Molar ratio] 7.9 % Low 22.0-44.0 [facility] Comment on above: Order Comment: Speci men Type: BLOOD SPECIMEN Ordering Facility: [facility] Address: [address] [place] [address] Performed By: #### 1 995-0 #### [facility] CLIA [id number] [address] [place] [address] [place] Magnesium SerPl-mCncon 11-18 Magnesium [Mass/Vol] 1.9 mg/dL Normal 1.6-2.6 [facility] Comment on above: Order Comment: Speci men Type: BLOOD SPECIMEN Ordering Facility: [facility] Address: [address] [place] [address] Performed By: #### 1 995-0 #### [facility] CLIA [id number] [address] [place] [address] [place] T3Free SerPl-mCncon 11-19-19 24 Free T3 [Mass/Vol] 2.2 pg/mL Normal 2.2-4.0 [facility] Comment on above: Order Comment: Speci men Type: BLOOD SPECIMEN Ordering Facility: [facility] Address: [address] [address] Performed By: #### 1 995-0 #### [facility] CLIA [id number] [address] [place], [place] [address] [place] T4 Free SerPl-mCncon 024 Free T4 [Mass/Vol] 1.1 ng/dL Normal 0.8-1.5 [facility] Comment on above: Order Comment: Speci men Type: BLOOD SPECIMEN Ordering Facility: [facility] Address: [address] [place], [place] [address] Performed By: #### 1 995-0 #### [facility] CLIA [id number] [address] [place], [place] [address] [place] Basic metabolic 2000 panelon 11-18-2023 Anion gap [Moles/Vol] 3 mmol/L Low 5-16 [facility] Comment on above: Order Comment: Speci men Type: BLOOD SPECIMEN Ordering Facility: [facility] Address: [address] [place], [place] [address] Performed By: #### 2 4321-2, , 3015-3 #### [facility] CLIA [id number] [address] [place], [place] [address] [place] Calcium [Mass/Vol] 9.1 mg/dL Normal 8.5-10.5 [facility] Comment on above: Order Comment: Speci men Type: BLOOD SPECIMEN Ordering Facility: [facility] Address: [address] [place], [place] [address] Performed By: #### 2 4321-2, , 3015-3 #### [facility] CLIA [id number] [address] [place], [place] [address] [place] Chloride [Moles/Vol] 100 mmol/L Normal 98-107 [facility] Comment on above: Order Comment: Speci men Type: BLOOD SPECIMEN Ordering Facility: [facility] Address: [address] [place], [place] [address] Performed By: #### 2 4321-2, 42968-3, 3016-3 #### [facility] CLIA [id number] [address] [place] [address] [place] CO2 [Moles/Vol] 32 mmol/L Normal 21-32 [facility] Comment on above: Order Comment: Speci men Type: BLOOD SPECIMEN Ordering Facility: [facility] Address: [address] [place] [address] Performed By: #### 2 4321-2, , 3 #### [facility] CLIA [id number] [address] [place] [address] Creatinine [Mass/Vol] 0.66 mg/dL Normal 0.50-1.40 [facility] Comment on above: Order Comment: Speci men Type: BLOOD SPECIMEN Ordering Facility: [facility] Address: [address] [place] [address] Result Comment: Diane ents receiving either N-Acetylcysteine (NAC) or Metamizole prior to venipuncture, may have falsely depressed results. Performed By: #### 2 4321-2, , 3 #### [facility] CLIA [id number] [address] [place] [address] Creatinine and Glomerular filtration rate.predicted panel (S/P/Bld) 109 mL/min/1.73m??? Normal >=60 [facility] Comment on above: Order Comment: Speci men Type: BLOOD SPECIMEN Ordering Facility: [facility] Address: [address] [place] [address] Result Comment: Sudha mated Glomerular Filtration Rate (eGFR) is calculated using the 2020 CKD-EPI creatinine equation. This equation utilizes serum creatinine, sex, and age as parameters. The creatinine assay has traceable calibration to isotope dilution-mass spectrometry. Refer to KDIGO guidelines for clinical interpretation. In patients with unstable renal function, e.g. those with acute kidney injury, the eGFR may not accurately reflect actual GFR. Performed By: #### 2 4321-2, 11420-7, 3 #### [facility] CLIA [id number] [address] [place] [address] [place] Glucose [Mass/Vol] 135 mg/dL High 70-100 [facility] Comment on above: Order Comment: Yogi plascencia Type: BLOOD SPECIMEN Ordering Facility: [facility] Address: [address] [place] [address] Result Comment: The [place] [employer] (ADA) provides guidance for cutoff values for fasting glucose and random glucose. The ADA defines fasting as no caloric intake for at least 8 hours. Fasting plasma glucose results between 100 to 125 mg/dL indicate increased risk for diabetes (prediabetes). Fasting plasma glucose results greater than or equal to 126 mg/dL meet the criteria for diagnosis of diabetes. In the absence of unequivocal hyperglycemia, results should be confirmed by repeat testing. In a patient with classic symptoms of hyperglycemia or hyperglycemic crisis, random plasma glucose results greater than or equal to 200 mg/dL meet the criteria for diagnosis of diabetes. Reference: Standards of Medical Care in Diabetes 2016, [place] [employer]. Diabetes Care. 2016.39(Suppl 1). Results may be falsely elevated after the administration of Sulfapyridine. Results may be falsely depressed after the administration of Sulfasalazine. Performed By: #### 2 4321-2, , 3015-3 #### [facility] CLIA [id number] [address] [place] [address] [place] Potassium [Moles/Vol] 4.2 mmol/L Normal 3.5-5.1 [facility] Comment on above: Order Comment: Yogi plascencia Type: BLOOD SPECIMEN Ordering Facility: [facility] Address: [address] [place] [address] Performed By: #### 2 4321-2, , 3015-3 #### [facility] CLIA [id number] [address] [place], [place] [address] [place] Sodium [Moles/Vol] 135 mmol/L Low 136-145 [facility] Comment on above: Order Comment: Yogi plascencia Type: BLOOD SPECIMEN Ordering Facility: [facility] Address: [address] [place] [address] Performed By: #### 2 4321-2, , 3015-3 #### [facility] CLIA [id number] [address] [place] [address] [place] Urea nitrogen [Mass/Vol] 11 mg/dL Normal 01-15 [facility] Comment on above: Order Comment: Speci men Type: BLOOD SPECIMEN Ordering Facility: [facility] Address: [address] [place] [address] Performed By: #### 2 4321-2, 92235-9, 3016-3 #### [facility] CLIA [id number] [address] [place] [address] [place] CBC W Auto Differential pane l (Bld)on 11-18-2023 Basophils (Bld) [#/Vol] 0.06 10*3/uL Normal <0.11 [facility] Comment on above: Order Comment: Speci men Type: BLOOD SPECIMEN Ordering Facility: [facility] Address: [address] [place] [address] Performed By: #### 5 7021-8 #### [facility] CLIA [id number] [address] [place] [address] [place] Basophils/100 WBC (Bld) 0.5 % Normal [facility] Comment on above: Order Comment: Speci men Type: BLOOD SPECIMEN Ordering Facility: [facility] Address: [address] [place] [address] Performed By: #### 5 7021-8 #### [facility] CLIA [id number] [address] [place] [address] [place] Differential cell count method Nom (Bld) Auto Normal [facility] Comment on above: Order Comment: Speci men Type: BLOOD SPECIMEN Ordering Facility: [facility] Address: [address] [place] [address] Performed By: #### 5 7021-8 #### [facility] CLIA [id number] [address] [place], [place] [address] [place] Eosinophils (Bld) [#/Vol] 0.34 10*3/uL Normal <0.46 [facility] Comment on above: Order Comment: Speci men Type: BLOOD SPECIMEN Ordering Facility: [facility] Address: [address] [place] [address] Performed By: #### 5 7021-8 #### [facility] CLIA [id number] [address] [place] [address] [place] Eosinophils/100 WBC (Bld) 2.9 % Normal [facility] Comment on above: Order Comment: Speci men Type: BLOOD SPECIMEN Ordering Facility: [facility] Address: [address] [place] [address] Performed By: #### 5 7021-8 #### [facility] CLIA [id number] [address] [place] [address] [place] Erythrocyte distribution width (RBC) [Ratio] 17.8 % High 11.5-15.0 [facility] Comment on above: Order Comment: Speci men Type: BLOOD SPECIMEN Ordering Facility: [facility] Address: [address] [place] [address] Performed By: #### 5 7021-8 #### [facility] CLIA [id number] [address] [place] [address] [place] Hematocrit (Bld) [Volume fraction] 41.1 % Normal 39.0-51.0 [facility] Comment on above: Order Comment: Speci men Type: BLOOD SPECIMEN Ordering Facility: [facility] Address: [address] [place] [address] Performed By: #### 5 7021-8 #### [facility] CLIA [id number] [address] [place] [address] [place] Hemoglobin (Bld) [Mass/Vol] 12.5 g/dL Low 13.0-17.0 [facility] Comment on above: Order Comment: Speci men Type: BLOOD SPECIMEN Ordering Facility: [facility] Address: [address] [place] [address] Performed By: #### 5 7021-8 #### [facility] CLIA [id number] [address] [place] [address] [place] Immature granulocytes (Bld) [#/Vol] 0.04 10*3/uL Normal <0.10 [facility] Comment on above: Order Comment: Speci men Type: BLOOD SPECIMEN Ordering Facility: [facility] Address: [address] [place] [address] Performed By: #### 5 7021-8 #### [facility] CLIA [id number] [address] [place] [address] [place] Immature granulocytes/100 WBC (Bld) 0.3 % Normal [facility] Comment on above: Order Comment: Speci men Type: BLOOD SPECIMEN Ordering Facility: [facility] Address: [address] [place] [address] Performed By: #### 5 7021-8 #### [facility] CLIA [id number] [address] [place] [address] [place] Lymphocytes (Bld) [#/Vol] 2.21 10*3/uL Normal 1.00-4.00 [facility] Comment on above: Order Comment: Speci men Type: BLOOD SPECIMEN Ordering Facility: [facility] Address: [address] [place] [address] Performed By: #### 5 7021-8 #### [facility] CLIA [id number] [address] [place] [address] [place] Lymphocytes/100 WBC (Bld) 18.7 % Normal [facility] Comment on above: Order Comment: Speci men Type: BLOOD SPECIMEN Ordering Facility: [facility] Address: [address] [place] [address] Performed By: #### 5 7021-8 #### [facility] CLIA [id number] [address] [place] [address] [place] MCH (RBC) [Entitic mass] 23.7 pg Low 26.0-34.0 [facility] Comment on above: Order Comment: Speci men Type: BLOOD SPECIMEN Ordering Facility: [facility] Address: [address] [place] [address] Performed By: #### 5 7021-8 #### [facility] CLIA [id number] [address] [place] [address] [place] MCHC (RBC) [Mass/Vol] 30.4 g/dL Low 30.5-36.0 [facility] Comment on above: Order Comment: Speci men Type: BLOOD SPECIMEN Ordering Facility: [facility] Address: [address] [place] [address] Performed By: #### 5 7021-8 #### [facility] CLIA [id number] [address] [place] [address] [place] MCV (RBC) [Entitic vol] 77.8 fL Low 80.0-100.0 [facility] Comment on above: Order Comment: Speci men Type: BLOOD SPECIMEN Ordering Facility: [facility] Address: [address] [place] [address] Performed By: #### 5 7021-8 #### [facility] CLIA [id number] [address] [place] [address] [place] Monocytes (Bld) [#/Vol] 0.67 10*3/uL Normal <0.87 [facility] Comment on above: Order Comment: Speci men Type: BLOOD SPECIMEN Ordering Facility: [facility] Address: [address] [place] [address] Performed By: #### 5 7021-8 #### [facility] CLIA [id number] [address] [place] [address] [place] Monocytes/100 WBC (Bld) 5.7 % Normal [facility] Comment on above: Order Comment: Speci men Type: BLOOD SPECIMEN Ordering Facility: [facility] Address: [address] [place] [address] Performed By: #### 5 7021-8 #### [facility] CLIA [id number] [address] [place] [address] [place] Neutrophils (Bld) [#/Vol] 8.52 10*3/uL High 1.45-7.50 [facility] Comment on above: Order Comment: Speci men Type: BLOOD SPECIMEN Ordering Facility: [facility] Address: [address] [place] [address] Performed By: #### 5 7021-8 #### [facility] CLIA [id number] [address] [place] [address] [place] Neutrophils/100 WBC (Bld) 71.9 % Normal [facility] Comment on above: Order Comment: Speci men Type: BLOOD SPECIMEN Ordering Facility: [facility] Address: [address] [place] [address] Performed By: #### 5 7021-8 #### [facility] CLIA [id number] [address] [place] [address] [place] Nucleated RBC (Bld) [#/Vol] 10*3/uL Normal <0.01 [facility] Comment on above: Order Comment: Speci men Type: BLOOD SPECIMEN Ordering Facility: [facility] Address: [address] [place] [address] Performed By: #### 5 7021-8 #### [facility] CLIA [id number] [address] [place] [address] [place] Nucleated RBC/100 WBC (Bld) [Ratio] 0.0 /100 WBC Normal [facility] Comment on above: Order Comment: Speci men Type: BLOOD SPECIMEN Ordering Facility: [facility] Address: [address] [place] [address] Performed By: #### 5 7021-8 #### [facility] CLIA [id number] [address] [place] [address] [place] Platelet mean volume (Bld) [Entitic vol] 10.0 fL Normal 9.0-12.7 [facility] Comment on above: Order Comment: Speci men Type: BLOOD SPECIMEN Ordering Facility: [facility] Address: [address] [place] [address] Performed By: #### 5 7021-8 #### [facility] CLIA [id number] [address] [place], [place] [address] [place] Platelets (Bld) [#/Vol] 186 10*3/uL Normal 150-400 [facility] Comment on above: Order Comment: Yogi plascencia Type: BLOOD SPECIMEN Ordering Facility: [facility] Address: [address] [place] [address] Performed By: #### 5 7021-8 #### [facility] CLIA [id number] [address] [place] [address] [facility] [place] RBC (Bld) [#/Vol] 5.28 10*6/uL Normal 4.20-6.00 [facility] Comment on above: Order Comment: Elpidioi men Type: BLOOD SPECIMEN Ordering Facility: [facility] Address: [address] [place], [place] [address] Performed By: #### 5 7021-8 #### [facility] CLIA [id number] [address] [place], [place] [address] [facility] [place] WBC (Bld) [#/Vol] 11.84 10*3/uL High 3.70-11.00 [facility] Comment on above: Order Comment: Yogi plascencia Type: BLOOD SPECIMEN Ordering Facility: [facility] Address: [address] [place], [place] [address] Performed By: #### 5 7021-8 #### [facility] CLIA [id number] [address] [place], [place] [address] [facility] CONSULTon 11-18-2023 CONSULT HNO ID: [id number] Author: CHIDI ARROYO MD Service: Cardiovascular Medicine Author Type: Physician Type: Consults Filed: 11/19/2023 20:16 Note Text: CARDIOLOGY CONSULT STAFF CHIEF GREEN OFFICER: CHIDI ARROYO Requesting Provider: Chidi Liu MD Opinion/advice regarding: NSVT CHIEF COMPLAINT: Dizzy and lightheaded HPI: This is a 58 year old male with a past medical history of CAD, COPD, NAFLD, morbid obesity, hypertension, papillary thyroid carcinoma s/p thyroidectomy now with hypothyroidism, Hx NSVT, syncope, asthma, diabetes, SHAHANA (noncompliant) who initially presented to [facility] with complaints of lightheadedness and dizziness. He just had an feeling of being unwell , had some mild diaphoresis, denies palpitations, chest pain/discomfort. The symptoms have been ongoing for several weeks. He endorses baseline COPD so does have some shortness of breath but he felt that his breathing was a little off compared to the usual . Reported to have had cardiac cath with stent placement in 2020 [facility] however required transfer to [facility] for nonsustained V. tach and EP evaluation and possible ablation evaluation at that time. He required IV amiodarone at that time and then switched to oral sotalol, which was to be a short-term. There was no decision for further EP study or catheter ablation at the time and he was continued on antiarrhythmic drug therapy and he was to be monitored on the sotalol for ventricular polyarrhythmia such as polymorphic VT or torsades. He was eventually discharged back to his assisted living facility on sotalol. Unsure as to whether or not he has followed up with cardiology since that time. 58-year-old male who lives in an assisted living facility. He had previously been homeless, and he is unable to offer any further information as to why or how he ended up in the assisted living facility. He currently has most of his care provided at the facility by the advanced practice nurse. His current home medications included sotalol 120 mg tablets twice daily, metoprolol 25 mg twice daily Lasix 40 mg twice daily Synthroid 225 mcg daily. He is also on trazodone which can along with the sotalol increase the QTc on EKG. PAST MEDICAL HISTORY: PAST MEDICAL HISTORY Diagnosis Date Coronary artery disease involving hopi coronary artery of hopi heart without angina pectoris 01/22/2021 Depression DM (diabetes mellitus) (HCC) HTN (hypertension) Multinodular goiter 01/2015 Papillary thyroid carcinoma (HCC) 01/2015 PAST SURGICAL HISTORY: PAST SURGICAL HISTORY Procedure Laterality Date ; THYROIDECTOMY TOTAL OR COMPLETE 04/2015 KNEE LEFT OP SURGERY 1997 benign tumor TONSILLECTOMY AND ADENOIDECTOMY HX 73 FAMILY HISTORY: FAMILY HISTORY Problem Relation Age of Onset Heart Father valve disease Alcohol/Drug Father Diabetes Father Cancer Paternal Grandfather pancreatic, alcoholic Prostate Cancer Paternal Grandfather Hypertension Paternal Grandmother Heart Paternal Grandmother Colon Cancer Paternal Uncle Heart Mother Alcohol/Drug Mother Diabetes Mother Stroke Mother SOCIAL HISTORY: Social History Tobacco Use Smoking status: Former Packs/day: 1.00 Years: 10.00 Additional pack years: 0.00 Total pack years: 10.00 Types: Cigars, Cigarettes Quit date: 09/07/2010 Years since quittin.2 Smokeless tobacco: Never Tobacco comments: occasionally Substance Use Topics Alcohol use: No Comment: quit, hx of Drug use: No MEDICATIONS: Prior to Admission Medications: aspirin, enteric coated (ASPIRIN, ENTERIC COATED) 81 mg EC tabletTake 1 tablet by mouth once daily.Disp: 7 tabletRfl: 0 ticagrelor (BRILINTA) 90 mg tabletTake 1 tablet by mouth twice daily.Disp: 60 tabletRfl: 1 dulaglutide (TRULICITY) 4.5 mg/0.5 mL pen injectorInject 4.5 mg subcutaneously one time a week.Disp: 2 mLRfl: 1 atorvastatin (LIPITOR) 80 mg tabletTake 1 tablet by mouth once daily.Disp: 30 tabletRfl: 2 sotalol (BETAPACE) 120 mg tabletTake 1 tablet by mouth twice daily.Disp: 30 tabletRfl: 2 acetaminophen (TYLENOL) 325 mg tabletTake 650 mg by mouth every 4 hours as needed for pain or fever (specify).Disp: Rfl: albuterol HFA (PROVENTIL HFA, VENTOLIN HFA) 90 mcg/actuation inhalerInhale 2 Puffs as instructed every 4 hours as needed for wheezing/shortness of breath.Disp: Rfl: benzocaine 20 % gelUse 1 application as instructed as needed (sore gums). One dental application every 4 hours as needed for sore gums (supervised self-administration)Disp: Rfl: carboxymethylcellulose sodium (ARTIFICIAL TEARS) 1 % dropsUse 1 Drop in both eyes as needed (dry eyes).Disp: Rfl: citalopram (CELEXA) 20 mg tabletTake 20 mg by mouth once daily. Disp: Rfl: mometasone-formoterol (DULERA) 100-5 mcg/actuation inhalerInhale 2 Puffs as instructed twice daily.Disp: Rfl: DULoxetine (CYMBALTA) 6 (more content not included)... Normal [facility] Calcium.ionized [Moles/Vol]o n 11-18-2023 Calcium.ionized (Bld) [Mass/Vol] 1.15 mmol/L Low 1.16-1.32 [facility] Comment on above: Order Comment: Speci men Type: BLOOD SPECIMEN Ordering Facility: [facility] Address: [address] [place] [address] Performed By: #### 1 995-0 #### [facility] CLIA [id number] [address] [place], [place] [address] [facility] ECG COMPLETEon 11-18-2023 ECG COMPLETE Ventricular Rate : 8 2 BPM Atrial Rate : 82 BPM P-R Interval : 188 ms QRS Duration : 92 ms Q-T Interval : 388 ms QTC Calculation(Bazett) : 453 ms Calculated P Charlotte : 43 degrees Calculated R Charlotte : 9 degrees Calculated T Charlotte : 44 degrees Normal sinus rhythm Normal ECG No previous ECGs available Confirmed by JASON MORALES MD ([id number]) on 11/21/2023 3:24:15 PM NAME : DERRELL HOYT PID : [id number] : 1965 Gender : Male Race : Unknown ORD : [id number] Procedure Date : Nov 18 2023 23:05:42 Edit Date : Nov 21 2023 15:24:16 Diagnosis: Normal sinus rhythm Normal ECG No previous ECGs available Confirmed by JASON MORALES MD ([id number]) on 11/21/2023 3:24:15 PM Test Reason : VTACH Location : 13 : [facility] CCU4 Overread By : JASON MORALES MD Edited By : JASON MORALES MD Referred By : HONORIO OVALLE Acquired by : Rosaura FORD [facility] HIGH SENSITIVITY TROPONIN Io n 11-18-2023 Tropinin I.cardiac panel High sensitivity method 3.6 pg/mL Normal 0.0-54.0 [facility] Comment on above: Order Comment: Speci men Type: BLOOD SPECIMEN Ordering Facility: [facility] Address: [address] [place] [address] Result Comment: This assay uses different antibodies than our current assay, and assays, even by the same mine patrol may recognize different regions of the antibody and cannot be used interchangeably. Expect results of this assay to run higher than the previous assay. Performed By: #### H STROP #### [facility] CLIA [id number] [address] [place], [place] [address] [facility] [place] HISTORY PHYSICALon HISTORY PHYSICAL HNO ID: [id number] Author: CHIDI LIU MD Service: Hospital Medicine Author Type: Physician Type: H&P Filed: 11/18/2023 22:37 Note Text: HISTORY AND PHYSICAL EXAMINATION SERVICE DATE: 11/18/2023 SERVICE TIME: 10:28 PM PRIMARY CARE PHYSICIAN: Reinaldo Paez MD Subjective HPI the patient is a 58-year-old male who resides in an assisted living facility. Reportedly became lightheaded earlier today and nursing supposedly checked on him and noted him to have a low heart rate? Either way he was sent to outside hospital for evaluation and was thought to be having episodes of NSVT. They requested transfer to [facility] for evaluation by electrophysiology. He is not currently complaining of chest pain, shortness of breath. He stated earlier today he did break into a sweat with his symptoms. Denies fevers chills recent illness FUNCTIONAL STATUS: Independent PAST MEDICAL HISTORY Diagnosis Date Coronary artery disease involving hopi coronary artery of hopi heart without angina pectoris 01/22/2021 Depression DM (diabetes mellitus) (HCC) HTN (hypertension) Multinodular goiter 01/2015 Papillary thyroid carcinoma (HCC) 01/2015 Kidney stone, COPD, asthma, hypothyroidism PAST SURGICAL HISTORY Procedure Laterality Date ; THYROIDECTOMY TOTAL OR COMPLETE 04/2015 KNEE LEFT OP SURGERY 1998 benign tumor TONSILLECTOMY AND ADENOIDECTOMY HX 73 Colonoscopy, cardiac stent FAMILY HISTORY Problem Relation Age of Onset Heart Father valve disease Alcohol/Drug Father Diabetes Father Cancer Paternal Grandfather pancreatic, alcoholic Prostate Cancer Paternal Grandfather Hypertension Paternal Grandmother Heart Paternal Grandmother Colon Cancer Paternal Uncle Heart Mother Alcohol/Drug Mother Diabetes Mother Stroke Mother Social History Tobacco Use Smoking status: Former Packs/day: 1.00 Years: 10.00 Additional pack years: 0.00 Total pack years: 10.00 Types: Cigars, Cigarettes Quit date: 09/07/2010 Years since quittin.2 Smokeless tobacco: Never Tobacco comments: occasionally Substance Use Topics Alcohol use: No Comment: quit, hx of Drug use: No aspirin, enteric coated (ASPIRIN, ENTERIC COATED) 81 mg EC tablet, Take 1 tablet by mouth once daily., Disp: 7 tablet, Rfl: 0 ticagrelor (BRILINTA) 90 mg tablet, Take 1 tablet by mouth twice daily., Disp: 60 tablet, Rfl: 1 dulaglutide (TRULICITY) 4.5 mg/0.5 mL pen injector, Inject 4.5 mg subcutaneously one time a week., Disp: 2 mL, Rfl: 1 atorvastatin (LIPITOR) 80 mg tablet, Take 1 tablet by mouth once daily., Disp: 30 tablet, Rfl: 2 sotalol (BETAPACE) 120 mg tablet, Take 1 tablet by mouth twice daily., Disp: 30 tablet, Rfl: 2 acetaminophen (TYLENOL) 325 mg tablet, Take 650 mg by mouth every 4 hours as needed for pain or fever (specify)., Disp: , Rfl: albuterol HFA (PROVENTIL HFA, VENTOLIN HFA) 90 mcg/actuation inhaler, Inhale 2 Puffs as instructed every 4 hours as needed for wheezing/shortness of breath., Disp: , Rfl: benzocaine 20 % gel, Use 1 application as instructed as needed (sore gums). One dental application every 4 hours as needed for sore gums (supervised self-administration), Disp: , Rfl: carboxymethylcellulose sodium (ARTIFICIAL TEARS) 1 % drops, Use 1 Drop in both eyes as needed (dry eyes)., Disp: , Rfl: citalopram (CELEXA) 20 mg tablet, Take 20 mg by mouth once daily. , Disp: , Rfl: mometasone-formoterol (DULERA) 100-5 mcg/actuation inhaler, Inhale 2 Puffs as instructed twice daily., Disp: , Rfl: DULoxetine (CYMBALTA) 60 mg capsule, Take 60 mg by mouth once daily., Disp: , Rfl: furosemide (LASIX) 40 mg tablet, Take 40 mg by mouth twice daily., Disp: , Rfl: guaiFENesin (ROBITUSSIN) 100 mg/5 mL syrup, Take 200 mg by mouth daily at bedtime. For cough, Disp: , Rfl: guaiFENesin (MUCINEX) 600 mg 12 hr tablet, Take 1,200 mg by mouth twice daily as needed (congestion)., Disp: , Rfl: glucagon (GVOKE HYPOPEN 1-PACK) 1 mg/0.2 mL AutoInjector, Inject 1 Dose subcutaneously as needed (for unresponsive hypoglycemia)., Disp: , Rfl: levothyroxine (SYNTHROID) 200 mcg tablet, Take 200 mcg by mouth daily before breakfast. Add to 25 mcg tablet for a total dose of 225 mcg each morning., Disp: , Rfl: levothyroxine (SYNTHROID) 25 mcg tablet, Take 25 mcg by mouth daily before breakfast. Add to 200 mcg tablet for a total dose of 225 mcg each morning., Disp: , Rfl: metFORMIN (GLUCOPHAGE) 1,000 mg tablet, Take 1,000 mg by mouth twice daily with meals. Give one tablet in the morning and one tablet in the afternoon (supervised self-administration), Disp: , Rfl: metoprolol tartrate, short acting, (LOPRESSOR) 25 mg tablet, Take 25 mg by mouth twice daily. For frequent PVCs. Hold medication if pulse is <55, Disp: , Rfl: aluminum AND magnesium hydroxide-simethicone (MYLANTA MAXIMUM STRENGTH) 400-400-40 mg/5 mL suspension, Take 15 mL by mouth every 3 hours as needed (indigestion)., Disp: , Rfl (more content not included)... Normal [facility] Lactate (Bld) [Moles/Vol]on 11-18-2023 Lactate [Moles/Vol] 1.7 mmol/L Normal 0.4-2.0 [facility] Comment on above: Order Comment: Yogi plascencia Type: BLOOD SPECIMEN Ordering Facility: [facility] Address: [address] [place] [address] Performed By: #### 3 2693-4 #### [facility] CLIA [id number] [address] [place] [address] [place] Magnesium SerPl-mCncon 11-17 Magnesium [Mass/Vol] 2.1 mg/dL Normal 1.6-2.6 [facility] Comment on above: Order Comment: Yogi plascencia Type: BLOOD SPECIMEN Ordering Facility: [facility] Address: [address] [place], [place] [address] Performed By: #### 2 4321-2, 69776-0, 3016-3 #### [facility] CLIA [id number] [address] [place] [address] [place] PT panel Coag (PPP)on 2023 INR Coag (PPP) [Relative time] 1.1 {INR} Normal 0.9-1.3 [facility] Comment on above: Order Comment: Yogi plascencia Type: BLOOD SPECIMEN Ordering Facility: [facility] Address: [address] [place], [place] [address] Result Comment: Xin min K Antagonist (VKA) Therapeutic Range: INR 2 to 3 (Target INR of 2.5) Note: For patients treated with VKA drugs, such as warfarin, the [employer] 2012 Guideline recommends a therapeutic INR range of 2 to 3 (target INR of 2.5). This recommendation includes high-risk patients with antiphospholipid syndrome with previous arterial or venous thromboembolism, current-generation mechanical or bioprosthetic aortic heart valve replacement. Note: Patients with mechanical aortic valve replacement and additional risk factors for thromboembolic events (atrial fibrillation, previous thromboembolism, LV dysfunction, hypercoagulable conditions) or an older generation mechanical AVR (i.e., ball in-Cage) or any mechanical MVR should have a INR therapeutic range of 2.5 to 3.5 (target INR of 3). Erin VARMA, et al. Chest 2012, 141:7S-47S Radha RA, et al. [facility] 2017, 70: 252-289 Performed By: #### 3 4528-0, 27138-9 #### [facility] CLIA [id number] [address] [place] [address] [place] PT Coag (PPP) [Time] 11.7 s Normal 9.7-13.0 [facility] Comment on above: Order Comment: Speci men Type: BLOOD SPECIMEN Ordering Facility: [facility] Address: [address] [place] [address] Performed By: #### 3 4528-0, 48276-0 #### [facility] CLIA [id number] [address] [place] [address] [place] TSH SerPl-aCncon 11-18-2023 TSH Qn 10.919 m[IU]/L High 0.358-3.740 [facility] Comment on above: Order Comment: Speci men Type: BLOOD SPECIMEN Ordering Facility: [facility] Address: [address] [place] [address] Result Comment: 3rd generation ultra sensitive TSH. Performed By: #### 2 4321-2, 46855-0, 3016-3 #### [facility] CLIA [id number] [address] [place] [place] [address] [place] aPTT PPPon 11-18-2023 aPTT Coag (PPP) [Time] 28.8 s Normal 23.0-32.4 [facility] Comment on above: Order Comment: Speci men Type: BLOOD SPECIMEN Ordering Facility: [facility] Address: [facility] [place] [address] Performed By: #### 3 4528-0, 35550-0 #### [facility] CLIA [id number] [address] [place] [place] [address] [facility] [place] CNNURSEon 01-31-2021 CNNURSE Nurse Visit (AGCARDP OB) ----- DERRELL HOYT ([id number]) 1965 M Date Time Provider Department 01/31/21 11:00 AM NURSE CARD AG JOSE POB AGCARDPOB During your visit today, we recorded the following information about you: Pulse Blood pressure Weight Height 80/minute 99/66 167.8 kg 1.753 m Marlee Truong MA 01/31/2021 10:57 AM Signed No cardiac concerns today Sharon Eubanks RN 01/31/2021 11:09 AM Signed EKG reviewed. CHIRAG Cassidy APRN.JAVIER 01/31/2021 4:52 PM Signed I reviewed EKG done today in our office which showed normal sinus rhythm, 70 bpm, QTC 446 ms. Stable to continue sotalol 120 mg every 12 hours. I spoke to patient at this time and he verified that the assisted-living is giving him sotalol 120 mg twice a day and I told him that the same dose should be continued. I reminded him that he needs a 48-hour Holter monitor to be applied about 2 weeks after discharge from the hospital. He has not been notified yet from central scheduling department to schedule it. I tried to give him the phone number for central scheduling so he could call to get it scheduled but he assured me that the assisted living will take care of it. I told him the assisted living might not know what number to call and told him to call our office if he does not get it scheduled within the next week. I informed him that he has follow-up visit in our office with Yuki Hedrick on 02/27/2021 at 9:45 AM. Kaleb Duckworth APRN.[facility] Referring Provider: SELF [200] Allergies As of Date: 01/31/2021 (No Known Allergies) Date Reviewed: 01/31/2021 Reviewed by: Marlee Truong MA - Fully Assessed Reason for Visit: EKG [793] Cmt: nurse visit Primary Visit Diagnosis:Ventricular tachycardia, nonsustained (HCC) [I47.2] Order(s):ECG B/O W INTERP (MED OFFICE) [ECG06] Order #: [id number] Prescriptions as of 01/31/2021 - aspirin, enteric coated (ASPIRIN, ENTERIC COATED) 81 mg EC tablet Take 1 tablet by mouth once daily. - ticagrelor (BRILINTA) 90 mg tablet Take 1 tablet by mouth twice daily. - dulaglutide (TRULICITY) 4.5 mg/0.5 mL pen injector Inject 4.5 mg subcutaneously one time a week. - atorvastatin (LIPITOR) 80 mg tablet Take 1 tablet by mouth once daily. - sotalol (BETAPACE) 120 mg tablet Take 1 tablet by mouth twice daily. - acetaminophen (TYLENOL) 325 mg tablet Take 650 mg by mouth every 4 hours as needed for pain or fever (specify). - albuterol HFA (PROVENTIL HFA, VENTOLIN HFA) 90 mcg/actuation inhaler Inhale 2 Puffs as instructed every 4 hours as needed for wheezing/shortness of breath. - benzocaine 20 % gel Use 1 application as instructed as needed (sore gums). One dental application every 4 hours as needed for sore gums (supervised self-administration) - carboxymethylcellulose sodium (ARTIFICIAL TEARS) 1 % drops Use 1 Drop in both eyes as needed (dry eyes). - citalopram (CELEXA) 20 mg tablet Take 20 mg by mouth once daily. - mometasone-formoterol (DULERA) 100-5 mcg/actuation inhaler Inhale 2 Puffs as instructed twice daily. - DULoxetine (CYMBALTA) 60 mg capsule Take 60 mg by mouth once daily. - furosemide (LASIX) 40 mg tablet Take 40 mg by mouth twice daily. - guaiFENesin (ROBITUSSIN) 100 mg/5 mL syrup Take 200 mg by mouth daily at bedtime. For cough - guaiFENesin (MUCINEX) 600 mg 12 hr tablet Take 1,200 mg by mouth twice daily as needed (congestion). - glucagon (GVOKE HYPOPEN 1-PACK) 1 mg/0.2 mL AutoInjector Inject 1 Dose subcutaneously as needed (for unresponsive hypoglycemia). - levothyroxine (SYNTHROID) 200 mcg tablet Take 200 mcg by mouth daily before breakfast. Add to 25 mcg tablet for a total dose of 225 mcg each morning. - levothyroxine (SYNTHROID) 25 mcg tablet Take 25 mcg by mouth daily before breakfast. Add to 200 mcg tablet for a total dose of 225 mcg each morning. - metFORMIN (GLUCOPHAGE) 1,000 mg tablet Take 1,000 mg by mouth twice daily with meals. Give one tablet in the morning and one tablet in the afternoon (supervised self-administration) - metoprolol tartrate, short acting, (LOPRESSOR) 25 mg tablet Take 25 mg by mouth twice daily. For frequent PVCs. Hold medication if pulse is <55 - aluminum AND magnesium hydroxide-simethicone (MYLANTA MAXIMUM STRENGTH) 400-400-40 mg/5 mL suspension Take 15 mL by mouth every 3 hours as needed (indigestion). - potassium chloride ER (K-DUR, KLOR-CON) 20 mEq tablet Take 20 mEq by mouth daily in the late morning. - senna-docusate (SENNA-S) 8.6-50 mg per tablet Take 2 tablets by mouth daily at bedtime. - tamsulosin (FLOMAX) 0.4 mg Take 0.4 mg by mouth daily at bedtime. - lisinopril (PRINIVIL) 10 mg tablet Take 1 tablet by mouth once daily. - blood sugar diagnostic (FREESTYLE LITE STRIPS) test strip Test blood sugar(s) 1 times daily. Dx: Type 2 diabetes E11.9. - Blood-Glucose Meter (FREESTYLE LITE METER) monitoring kit Freestyle (more content not included)... Normal [facility] CBC W Auto Differential pane l (Bld)on 01-24-2021 Basophils (Bld) [#/Vol] 0.07 10*3/uL Normal <0.11 [facility] Comment on above: Order Comment: Speci men Type: BLOOD SPECIMEN Performed By: #### 5 7021-8 #### [facility] CLIA [id number] [address] [place] [address] Basophils/100 WBC (Bld) 0.5 % Normal [facility] Comment on above: Order Comment: Speci men Type: BLOOD SPECIMEN Performed By: #### 5 7021-8 #### [facility] CLIA [id number] [address] [place] [address] Differential cell count method Nom (Bld) Auto Normal [facility] Comment on above: Order Comment: Speci men Type: BLOOD SPECIMEN Performed By: #### 5 7021-8 #### [facility] CLIA [id number] [address] [place] [address] Eosinophils (Bld) [#/Vol] 0.91 10*3/uL High <0.46 [facility] Comment on above: Order Comment: Speci men Type: BLOOD SPECIMEN Performed By: #### 5 7021-8 #### [facility] CLIA [id number] [address] [place] [address] Eosinophils/100 WBC (Bld) 6.9 % Normal [facility] Comment on above: Order Comment: Speci men Type: BLOOD SPECIMEN Performed By: #### 5 7021-8 #### [facility] CLIA [id number] [address] [place] [address] Erythrocyte distribution width (RBC) [Ratio] 14.4 % Normal 11.5-15.0 [facility] Comment on above: Order Comment: Speci men Type: BLOOD SPECIMEN Performed By: #### 5 7021-8 #### [facility] CLIA [id number] [address] [place] [address] Hematocrit (Bld) [Volume fraction] 43.0 % Normal 39.0-51.0 [facility] Comment on above: Order Comment: Speci men Type: BLOOD SPECIMEN Performed By: #### 5 7021-8 #### [facility] CLIA [id number] [address] [place] [address] Hemoglobin (Bld) [Mass/Vol] 13.9 g/dL Normal 13.0-17.0 [facility] Comment on above: Order Comment: Speci men Type: BLOOD SPECIMEN Performed By: #### 5 7021-8 #### [facility] CLIA [id number] [address] [place] [address] IMMATURE GRAN % 0.9 % Normal [facility] Comment on above: Order Comment: Speci men Type: BLOOD SPECIMEN Performed By: #### 5 7021-8 #### [facility] CLIA [id number] [address] [place] [address] IMMATURE GRAN ABS 0.12 k/uL High <0.10 [facility] Comment on above: Order Comment: Speci men Type: BLOOD SPECIMEN Performed By: #### 5 7021-8 #### [facility] CLIA [id number] [address] [place] [address] Lymphocytes (Bld) [#/Vol] 1.95 10*3/uL Normal 1.00-4.00 [facility] Comment on above: Order Comment: Speci men Type: BLOOD SPECIMEN Performed By: #### 5 7021-8 #### [facility] CLIA [id number] [address] [place] [address] Lymphocytes/100 WBC (Bld) 14.7 % Normal [facility] Comment on above: Order Comment: Speci men Type: BLOOD SPECIMEN Performed By: #### 5 7021-8 #### [facility] CLIA [id number] [address] [place] [address] MCH (RBC) [Entitic mass] 30.8 pg Normal 26.0-34.0 [facility] Comment on above: Order Comment: Speci men Type: BLOOD SPECIMEN Performed By: #### 5 7021-8 #### [facility] CLIA [id number] [address] [place] [address] MCHC (RBC) [Mass/Vol] 32.3 g/dL Normal 30.5-36.0 [facility] Comment on above: Order Comment: Speci men Type: BLOOD SPECIMEN Performed By: #### 5 7021-8 #### [facility] CLIA [id number] [address] [place] [address] MCV (RBC) [Entitic vol] 95.1 fL Normal 80.0-100.0 [facility] Comment on above: Order Comment: Speci men Type: BLOOD SPECIMEN Performed By: #### 5 7021-8 #### [facility] CLIA [id number] [address] [place] [address] Monocytes (Bld) [#/Vol] 0.70 10*3/uL Normal <0.87 [facility] Comment on above: Order Comment: Speci men Type: BLOOD SPECIMEN Performed By: #### 5 7021-8 #### [facility] CLIA [id number] [address] [place] [address] Monocytes/100 WBC (Bld) 5.3 % Normal [facility] Comment on above: Order Comment: Speci men Type: BLOOD SPECIMEN Performed By: #### 5 7021-8 #### [facility] CLIA [id number] [address] [place] [address] Neutrophils (Bld) [#/Vol] 9.53 10*3/uL High 1.45-7.50 [facility] Comment on above: Order Comment: Speci men Type: BLOOD SPECIMEN Performed By: #### 5 7021-8 #### [facility] CLIA [id number] [address] [place] [address] Neutrophils/100 WBC (Bld) 71.7 % Normal [facility] Comment on above: Order Comment: Speci men Type: BLOOD SPECIMEN Performed By: #### 5 7021-8 #### [facility] CLIA [id number] [address] [place] [address] Nucleated RBC (Bld) [#/Vol] 10*3/uL Normal <0.01 [facility] Comment on above: Order Comment: Speci men Type: BLOOD SPECIMEN Performed By: #### 5 7021-8 #### [facility] CLIA [id number] [address] [place] [address] Nucleated RBC/100 WBC (Bld) [Ratio] 0.0 /100 WBC Normal 0.0 [facility] Comment on above: Order Comment: Speci men Type: BLOOD SPECIMEN Performed By: #### 5 7021-8 #### [facility] CLIA [id number] [address] [place] [address] Platelet mean volume (Bld) [Entitic vol] 10.2 fL Normal 9.0-12.7 [facility] Comment on above: Order Comment: Speci men Type: BLOOD SPECIMEN Performed By: #### 5 7021-8 #### [facility] CLIA [id number] [address] [place] [address] Platelets (Bld) [#/Vol] 199 10*3/uL Normal 150-400 [facility] Comment on above: Order Comment: Speci men Type: BLOOD SPECIMEN Performed By: #### 5 7021-8 #### [facility] CLIA [id number] [address] [place] [address] RBC (Bld) [#/Vol] 4.52 10*6/uL Normal 4.20-6.00 [facility] Comment on above: Order Comment: Speci men Type: BLOOD SPECIMEN Performed By: #### 5 7021-8 #### [facility] CLIA [id number] [address] [place] [address] WBC (Bld) [#/Vol] 13.28 10*3/uL High 3.70-11.00 [facility] Comment on above: Order Comment: Speci men Type: BLOOD SPECIMEN Performed By: #### 5 7021-8 #### [facility] CLIA [id number] [address] [place] [address] CNDSon 01-24-2021 CNDS HNO ID: [id number] Author: Karolina Broussard MD Service: Hospital Medicine Author Type: Physician Type: Discharge Summary Filed: 01/24/2021 8:53 PM Note Text: DISCHARGE SUMMARY PATIENT NAME: Derrell Hoyt ADMISSION DATE: 01/20/2021 DISCHARGE DATE: 01/24/2021 Attending Physician: Karolina Broussard MD Code Status: Not on file Highest Readmission Risk Score: 14 The 30 day readmissions risk score is derived from an internally validated risk model which evaluates patient level characteristics, utilization history, medication orders and lab results up until the day of discharge. Patients with a score of 40 or above are considered highest risk for readmission. Specific patient level drivers will be listed at the bottom of the summary. The 30 day readmissions risk score is derived from an internally validated risk model which evaluates patient level characteristics, utilization history, medication orders and lab results up until the day of discharge. Patients with a score of 40 or above are considered highest risk for readmission. Specific patient level drivers will be listed at the bottom of the summary. PRINCIPAL PROBLEM: Ventricular tachycardia, nonsustained (HCC) Operations During Hospitalization: None Procedures During Hospitalization: EKG Hospital Course: This is a 55 year old male with PMH of MDD, T2DM, HTN, COPD, NAFLD, Papillary Thyroid Carcinoma s/p Thyroidectomy --> Hypothyroidism presented [facility] due to palpitations. Patient states he felt like his heart was beating slower than normal. Patient was recently admitted for acute CHF exacerbation, EF (60% 12/2020), and underwent cath. Patient received stent in mid LAD and treated w/ Lasix and metoprolol. Also was treated for AECOPD on steroids and breathing tx. During admission patient had runs of NSVT and was started on amio drip. Patient did not respond well to transition to oral amiodarone and was kept on drip. Patient transferred to [facility] under EP for possible ablation. Outside Echo (01/18/21) showed EF 60%, mild LA enlargement, mild focal aortic calcification, trivial TV/MV insufficiency. Most recent outside hospital labs showed WBC 22.7, HgB 13.5, PLT 185, K 4.6, Na 133, CL 102, Mg 2.2, Glu 204, Cr 0.85, Pro-BNP 222, free T4 1.12, TSH 3.81, HDL 28, LDL 50, Total cholesterol 116. CXR obtained two days ago show findings consistent with CHF and left basilar atelectasis. Upon evaluation patient states he is currently asymptomatic, denies chest pain, palpitations, SOB, dizziness, abdominal pain, fever, chills, nausea, emesis, constipation, diarrhea, dysuria. Currently labs electrolytes, CBC, CMP being obtained along with CXR. In CVICU he the amiodarone drip was continued. EP study or catheter ablation for the ventricular arrhythmia(s) was not recommended at this time. Dr. Vinson recommended antiarrhythmic drug therapy. Discontinued the IV amiodarone and will start PO sotalol tonight. So far he has tolerated the transition well and it is recommended that he continue to be followed up on the floor. However while on the floor he is to be followed up with daily EKGs to monitor for formation of new arrhythmias before his discharge to home. The patient has been in sinus rhythm as has been cleared by EP for discharge. Principal Problem: Ventricular tachycardia, nonsustained (HCC) POA: Yes Active Problems: Essential hypertension POA: Yes Diabetes mellitus type 2 in obese (HCC) POA: Yes Morbid obesity with BMI of 50.0-59.9, adult (HCC) POA: Yes Premature ventricular contractions (PVCs) (VPCs) POA: Yes High risk medication use POA: Yes Coronary artery disease involving hopi coronary artery of hopi heart without angina pectoris POA: Yes Chronic heart failure with preserved ejection fraction (HCC) POA: Yes Encounter for monitoring sotalol therapy POA: No Resolved Problems: * No resolved hospital problems. * Transitions of Care Critical Issues: NEW BASELINE FOR PATIENT: No change IMAGING FOLLOW-UP: None LAB MONITORING NEEDED: None SPECIALIST FOLLOW-UP: Electrophysiology [facility] MEDICATION CHANGES: Citalopram [address] ecitalopram Metformin 1 gram twice daily Sotalol 120 mg twice daily dulaglutide dose increase to 3 mg/0.5 ml once a week PROCEDURES SCHEDULED: EKG in 1 week. Holter monitor in 2 weeks LABS AND PROCEDURES PENDING AT DISCHARGE: No pending results. Consulting Teams During Hospitalization: Cardiology: for NSVT Patient Condition @ Discharge: Stable Patient is able to complete both ADLS and IADLS which represents a return to baseline mental/physical health. Discharge Disposition: Home/Self Care Diet: Resume pre-hospital diet Low Salt Low Cholesterol Low carb diet: 3-5 carbs/meal, <200 mg cholesterol, low saturated fat Heart Health Diet: 4 gm sodium, <200 mg cholesterol, low saturated fat Activity: Resume pre-hospital activity Wound/Surgical Sit (more content not included)... Normal [facility] CNPNon 01-24-2021 CNPN Telephone (SONJA) ----- DERRELL HOYT ([id number]) 1965 M Date Time Provider Department 01/24/21 KALEB DUCKWORTH During your visit today, we recorded the following information about you: Kaleb Duckworth APRN.[facility] 01/24/2021 1:36 PM Signed Patient seen in the hospital by Dr. Spence and started on short-term sotalol therapy for PVCs/NSVT. He is being discharged today 01/24/2021. He needs nurse visit for EKG in our office in 1 week. I ordered 48-hour Holter monitor to be done in about 2 weeks. He will then need follow-up in the office with EP in 4 to 6 weeks. He lives at [facility] assisted living at [phone] and they arrange his transportation to appointments so he asked to schedule the appointment through them. Kaleb Duckworth APRN.BART Mendes 01/25/2021 8:58 AM Signed Contacted [facility] with scheduled appointments. Left message for Fuad at extension 2015 with dates and times. BART Sims Allergies As of Date: 01/24/2021 (No Known Allergies) Date Reviewed: 01/22/2021 Reviewed by: Vandana Castellon, CHIRAG - Fully Assessed Reason for Visit: Appointment [186] Prescriptions as of 01/25/2021 - aspirin, enteric coated (ASPIRIN, ENTERIC COATED) 81 mg EC tablet Take 1 tablet by mouth once daily. - ticagrelor (BRILINTA) 90 mg tablet Take 1 tablet by mouth twice daily. - dulaglutide (TRULICITY) 4.5 mg/0.5 mL pen injector Inject 4.5 mg subcutaneously one time a week. - atorvastatin (LIPITOR) 80 mg tablet Take 1 tablet by mouth once daily. - sotalol (BETAPACE) 120 mg tablet Take 1 tablet by mouth twice daily. - acetaminophen (TYLENOL) 325 mg tablet Take 650 mg by mouth every 4 hours as needed for pain or fever (specify). - albuterol HFA (PROVENTIL HFA, VENTOLIN HFA) 90 mcg/actuation inhaler Inhale 2 Puffs as instructed every 4 hours as needed for wheezing/shortness of breath. - benzocaine 20 % gel Use 1 application as instructed as needed (sore gums). One dental application every 4 hours as needed for sore gums (supervised self-administration) - carboxymethylcellulose sodium (ARTIFICIAL TEARS) 1 % drops Use 1 Drop in both eyes as needed (dry eyes). - citalopram (CELEXA) 20 mg tablet Take 20 mg by mouth once daily. - mometasone-formoterol (DULERA) 100-5 mcg/actuation inhaler Inhale 2 Puffs as instructed twice daily. - DULoxetine (CYMBALTA) 60 mg capsule Take 60 mg by mouth once daily. - furosemide (LASIX) 40 mg tablet Take 40 mg by mouth twice daily. - guaiFENesin (ROBITUSSIN) 100 mg/5 mL syrup Take 200 mg by mouth daily at bedtime. For cough - guaiFENesin (MUCINEX) 600 mg 12 hr tablet Take 1,200 mg by mouth twice daily as needed (congestion). - glucagon (GVOKE HYPOPEN 1-PACK) 1 mg/0.2 mL AutoInjector Inject 1 Dose subcutaneously as needed (for unresponsive hypoglycemia). - levothyroxine (SYNTHROID) 200 mcg tablet Take 200 mcg by mouth daily before breakfast. Add to 25 mcg tablet for a total dose of 225 mcg each morning. - levothyroxine (SYNTHROID) 25 mcg tablet Take 25 mcg by mouth daily before breakfast. Add to 200 mcg tablet for a total dose of 225 mcg each morning. - metFORMIN (GLUCOPHAGE) 1,000 mg tablet Take 1,000 mg by mouth twice daily with meals. Give one tablet in the morning and one tablet in the afternoon (supervised self-administration) - metoprolol tartrate, short acting, (LOPRESSOR) 25 mg tablet Take 25 mg by mouth twice daily. For frequent PVCs. Hold medication if pulse is <55 - aluminum AND magnesium hydroxide-simethicone (MYLANTA MAXIMUM STRENGTH) 400-400-40 mg/5 mL suspension Take 15 mL by mouth every 3 hours as needed (indigestion). - potassium chloride ER (K-DUR, KLOR-CON) 20 mEq tablet Take 20 mEq by mouth daily in the late morning. - senna-docusate (SENNA-S) 8.6-50 mg per tablet Take 2 tablets by mouth daily at bedtime. - tamsulosin (FLOMAX) 0.4 mg Take 0.4 mg by mouth daily at bedtime. - lisinopril (PRINIVIL) 10 mg tablet Take 1 tablet by mouth once daily. - blood sugar diagnostic (FREESTYLE LITE STRIPS) test strip Test blood sugar(s) 1 times daily. Dx: Type 2 diabetes E11.9. - Blood-Glucose Meter (FREESTYLE LITE METER) monitoring kit Freestyle LITE Meter Kit - - Lancets (FREESTYLE LANCETS) lancets Test blood sugar(s) 2 times daily. Dx: DM 250.0 Insulin: No Problem List As Of Date 01/24/2021 Noted Resolved Essential hypertension [I10] 10/16/2012 Low HDL (under 40) [E78.6] 10/19/2012 Hyperglycemia [R73.9] 10/19/2012 01/17/2016 Diabetes mellitus type 2 in obese (HCC) [E11.69*11/02/2012 Goiter, nontoxic, multinodular [E04.2] 02/05/2015 Papillary thyroid carcinoma (HCC) [C73] 05/11/2015 Morbid obesity with BMI of 50.0-59.9, adult (HC*10/30/2017 Ventricular tachycardia, nonsustained (HCC) [I4*01/20/2021 Premature ventricular contractions (PVCs) (VPCs*01/22/2021 High risk medication use [Z79.899] (more content not included)... Normal [facility] CONSULT PROGoene 01-24-2021 CONSULT PROG HNO ID: [id number] Author: Kaleb Duckworth APRN.[facility] Service: Electrophysiology Author Type: Nurse Specialist Type: Consult Progress Note Filed: 01/24/2021 1:30 PM Note Text: PROGRESS NOTE ELECTROPHYSIOLOGY SERVICE SERVICE DATE: 01/24/2021 SERVICE TIME: 11:33 AM Subjective INTERIM HISTORY: Chart reviewed. Discussed with Dr. Spence. Patient seen and examined. He was sitting in the chair at the bedside. He denied any palpitations, dizziness or lightheadedness, syncope or near syncope, chest discomfort or shortness of breath. Review of Systems Constitutional: Negative for chills, fever and malaise/fatigue. HENT: Negative. Respiratory: Positive for cough. Negative for hemoptysis, sputum production and shortness of breath. Cardiovascular: Positive for leg swelling. Negative for chest pain and palpitations. Gastrointestinal: Negative for blood in stool, constipation, diarrhea, nausea and vomiting. Genitourinary: Negative for dysuria and hematuria. Musculoskeletal: Negative for falls. Skin: Negative for rash. Neurological: Negative for dizziness and loss of consciousness. Objective PHYSICAL EXAM: Body mass index is 48.97 kg/m?. O2 Therapy: Room Air Patient Vitals for the past 24 hrs: BP Temp Temp src Pulse Resp SpO2 Weight 01/24/21 0830 125/67 36.3 ?C (97.3 ?F) Oral 66 18 93 % ? 01/24/21 0349 135/76 36 ?C (96.8 ?F) Axillary 68 16 96 % (!) 163.8 kg (361 lb 1.6 oz) 01/23/21 2320 123/56 36.1 ?C (97 ?F) Axillary 68 16 96 % ? 01/23/212022 130/70 36.8 ?C (98.2 ?F) Oral 73 18 94 % ? 01/23/21 1853 125/70 36.9 ?C (98.4 ?F) Oral 77 18 94 % ? 01/23/21 1800 100/55 ? ? 75 16 95 % ? 01/23/21 1700 118/92 ? ? 77 15 91 % ? 01/23/21 1600 120/78 ? ? 73 17 94 % ? 01/23/21 1500 112/72 36.1 ?C (97 ?F) Temporal 73 11 95 % ? 01/23/21 1400 107/78 ? ? 70 17 91 % ? 01/23/21 1300 107/59 ? ? 74 19 95 % ? 01/23/21 1200 105/72 ? ? 74 20 95 % ? Pleasant, comfortable, not in acute distress. SKIN: warm AND dry; normal color. HEENT: Normocephalic. NECK: Supple, thick, no JVD, no carotid bruits auscultated. LUNGS: Clear to auscultation bilaterally with decreased breath sounds throughout. Respirations unlabored at rest. CARDIAC: Normal S1, S2, regular rate AND rhythm, no murmurs or gallops auscultated. ABDOMEN: Soft, obese, nontender to superficial palpation, bowel sounds auscultated. EXTREMITIES: 1-2+ edema lower extremities and discolored brown NEURO: awake, alert, oriented X 3, moves all 4 extremities. PULSES: bilateral radial pulses palpable. MEDICATIONS: Current Facility-Administered Medications Medication Dose Route Frequency - lisinopril 10 mg tab(s) (ZESTRIL, PRINIVIL) 10 mg ORAL DAILY - fluticasone-vilanterol 100-25 mcg/dose 1 Inhalation (BREO ELLIPTA) 1 Inhalation INHALATION DAILY - citalopram 20 mg tab(s) (CeleXA) 20 mg ORAL DAILY - aspirin, enteric coated 81 mg tab(s) 81 mg ORAL DAILY - NaCl 0.9% iv flush bag 20 mL INTRAVENOUS PRN - sodium chloride 0.9 % (flush) 3-5 mL (BD POSIFLUSH) 3-5 mL INTRAVENOUS q 12 H - dextrose 40 % 15 g 15 g ORAL PRN Or - glucagon 1 mg injection 1 mg INTRAMUSCULAR PRN Or - dextrose 50% in water 25 mL syringe 12.5 g INTRAVENOUS PRN - rosuvastatin 40 mg tab(s) (CRESTOR) 40 mg ORAL AT BEDTIME - ticagrelor 90 mg tab(s) (BRILINTA) 90 mg ORAL BID - sotalol 120 mg (BETAPACE) 120 mg ORAL q 12 H - enoxaparin 60 mg injection (LOVENOX) 60 mg SUBCUTANEOUS q 12 HR - [MAR Hold due to Transfer] levothyroxine (SYNTHROID) tab(s) 225 mcg 225 mcg ORAL DAILY (6 AM) - insulin lispro pen (rapid acting) (HumaLOG KWIKPEN) SUBCUTANEOUS w MEALS - metFORMIN 1,000 mg tab(s) (GLUCOPHAGE) 1,000 mg ORAL BID w MEALS DATA: Diagnostic tests reviewed for today's visit: Most recent labs results. 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 Only 11 alarms for PVCs since 2209 on 01/23/21 Past 72 Hour Labs: Recent Labs 01/24/21 0348 01/24/21 0347 01/23/21 0606 WBC 13.28* -- < > RBC 4.52 -- < > HB 13.9 -- < > HCT 43.0 -- < > MCV 95.1 -- < > MCH 30.8 -- < > MCHC 32.3 -- < > RDWCV 14.4 -- < > PLT 199 -- < > MPV 10.2 -- < > NEUTP 71.7 -- < > LYMPHP 14.7 -- < > MONOP 5.3 -- < > BASOP 0.5 -- < > ABSNEUT 9.53* -- < > ABSMONO 0.70 -- < > ABSEOSIN 0.91* -- < > ABSBASO 0.07 -- < > GLUC -- 156* -- BUN -- 13 -- CREAT -- 0.69* -- NA -- 135* -- K -- 4.7 -- CHLOR -- 99 -- CO2 -- 28 -- TPROT -- 7.0 -- ALB -- 3.9 -- CA -- 8.8 -- ALKPHOS -- 252* -- TBILI -- 0.6 -- AST -- 33 -- ALT -- 36 -- MG -- 2.1 -- < > = values in this interval not displayed. Assessment/Plan Patient Active Hospital Problem List: Ventricular tachycardia, nonsustained (HCC) (01/20/2021) AND Premature ventricular contractions (PVCs) (VPCs) (01/22/2021) - NSVT noted at [facility] (more content not included)... Normal [facility] Comprehensive metabolic 2000 panelon 01-24-2021 Albumin [Mass/Vol] 3.9 g/dL Normal 3.9-4.9 [facility] Comment on above: Order Comment: Speci men Type: BLOOD SPECIMEN Performed By: #### 5 7021-8 #### [facility] CLIA [id number] [address] [place] [address] ALP [Catalytic activity/Vol] 252 U/L High 38-113 [facility] Comment on above: Order Comment: Speci men Type: BLOOD SPECIMEN Performed By: #### 5 7021-8 #### [facility] CLIA [id number] [address] [place] [address] ALT With P-5'-P [Catalytic activity/Vol] 36 U/L Normal 10-54 [facility] Comment on above: Order Comment: Speci men Type: BLOOD SPECIMEN Performed By: #### 5 7021-8 #### [facility] CLIA [id number] [address] [place] [address] Anion gap [Moles/Vol] 8 mmol/L Low 9-18 [facility] Comment on above: Order Comment: Speci men Type: BLOOD SPECIMEN Performed By: #### 5 7021-8 #### [facility] CLIA [id number] [address] [place] [address] AST With P-5'-P [Catalytic activity/Vol] 33 U/L Normal 14-40 [facility] Comment on above: Order Comment: Speci men Type: BLOOD SPECIMEN Performed By: #### 5 7021-8 #### [facility] CLIA [id number] [address] [place] [address] Bilirubin [Mass/Vol] 0.6 mg/dL Normal 0.2-1.3 [facility] Comment on above: Order Comment: Speci men Type: BLOOD SPECIMEN Performed By: #### 5 7021-8 #### [facility] CLIA [id number] [address] [place] [address] Calcium [Mass/Vol] 8.8 mg/dL Normal 8.5-10.2 [facility] Comment on above: Order Comment: Speci men Type: BLOOD SPECIMEN Performed By: #### 5 7021-8 #### [facility] CLIA [id number] [address] [place] [address] Chloride [Moles/Vol] 99 mmol/L Normal 97-105 [facility] Comment on above: Order Comment: Speci men Type: BLOOD SPECIMEN Performed By: #### 5 7021-8 #### [facility] CLIA [id number] [address] [place] [address] CO2 [Moles/Vol] 28 mmol/L Normal 22-30 [facility] Comment on above: Order Comment: Speci men Type: BLOOD SPECIMEN Performed By: #### 5 7021-8 #### [facility] CLIA [id number] [address] [place] [address] Creatinine [Mass/Vol] 0.69 mg/dL Low 0.73-1.22 [facility] Comment on above: Order Comment: Speci men Type: BLOOD SPECIMEN Performed By: #### 5 7021-8 #### [facility] CLIA [id number] [address] [place] [address] GFR/1.73 sq M.predicted MDRD (S/P/Bld) [Vol rate/Area] mL/min/{1.73_m2} Normal [facility] Comment on above: Order Comment: Speci men Type: BLOOD SPECIMEN Result Comment: >60 eGFR (Estimated GFR) Units of measure: mL/min/1.73 meters squared eGFR is derived from the reexpressed MDRD Study equation using the following parameters: serum creatinine, age, gender and race. The creatinine assay has been calibrated to be traceable to IDMS. An eGFR <60 mL/min/1.73m2 for >3 months is consistent with chronic kidney disease. Refer to KDOQI guidelines for clinical interpretation. In patients with unstable renal function, e.g. those with acute kidney injury, the eGFR may not accurately reflect actual GFR. Performed By: #### 5 7021-8 #### [facility] CLIA [id number] [address] [place] [address] Glucose [Mass/Vol] 156 mg/dL High 74-99 [facility] Comment on above: Order Comment: Speci men Type: BLOOD SPECIMEN Result Comment: The [place] Diabetes Association (ADA) provides guidance for cutoff values for fasting glucose and random glucose. The ADA defines fasting as no caloric intake for at least 8 hours. Fasting plasma glucose results between 100 to 125 mg/dL indicate increased risk for diabetes (prediabetes). Fasting plasma glucose results greater than or equal to 126 mg/dL meet the criteria for diagnosis of diabetes. In the absence of unequivocal hyperglycemia, results should be confirmed by repeat testing. In a patient with classic symptoms of hyperglycemia or hyperglycemic crisis, random plasma glucose results greater than or equal to 200 mg/dL meet the criteria for diagnosis of diabetes. Reference: Standards of Medical Care in Diabetes 2016, [place] [employer]. Diabetes Care. 2016.39(Suppl 1). Performed By: #### 5 7021-8 #### [facility] CLIA [id number] [address] [place] [address] Potassium [Moles/Vol] 4.7 mmol/L Normal 3.7-5.1 [facility] Comment on above: Order Comment: Speci men Type: BLOOD SPECIMEN Performed By: #### 5 7021-8 #### [facility] CLIA [id number] [address] [place] [address] Protein [Mass/Vol] 7.0 g/dL Normal 6.3-8.0 [facility] Comment on above: Order Comment: Speci men Type: BLOOD SPECIMEN Performed By: #### 5 7021-8 #### [facility] CLIA [id number] [address] [place] [address] Sodium [Moles/Vol] 135 mmol/L Low 136-144 [facility] Comment on above: Order Comment: Speci men Type: BLOOD SPECIMEN Performed By: #### 5 7021-8 #### [facility] CLIA [id number] [address] [place] [address] Urea nitrogen [Mass/Vol] 13 mg/dL Normal 9-24 [facility] Comment on above: Order Comment: Speci men Type: BLOOD SPECIMEN Performed By: #### 5 7021-8 #### [facility] CLIA [id number] [address] [place] [address] Magnesium SerPl-mCncon 01-24 Magnesium [Mass/Vol] 2.1 mg/dL Normal 1.7-2.3 [facility] Comment on above: Order Comment: Speci men Type: BLOOD SPECIMEN Performed By: #### 5 7021-8 #### [facility] CLIA [id number] [address] [place] [address] CBC W Auto Differential pane l (Bld)on 01-23-2021 Basophils (Bld) [#/Vol] 0.08 10*3/uL Normal <0.11 [facility] Comment on above: Order Comment: Speci men Type: BLOOD SPECIMEN Performed By: #### 5 7021-8 #### [facility] CLIA [id number] [address] [place] [address] Basophils/100 WBC (Bld) 0.6 % Normal [facility] Comment on above: Order Comment: Speci men Type: BLOOD SPECIMEN Performed By: #### 5 7021-8 #### [facility] CLIA [id number] [address] [place] [address] Differential cell count method Nom (Bld) Auto Normal [facility] Comment on above: Order Comment: Speci men Type: BLOOD SPECIMEN Performed By: #### 5 7021-8 #### [facility] CLIA [id number] [address] [place] [address] Eosinophils (Bld) [#/Vol] 0.71 10*3/uL High <0.46 [facility] Comment on above: Order Comment: Speci men Type: BLOOD SPECIMEN Performed By: #### 5 7021-8 #### [facility] CLIA [id number] [address] [place] [address] Eosinophils/100 WBC (Bld) 5.3 % Normal [facility] Comment on above: Order Comment: Speci men Type: BLOOD SPECIMEN Performed By: #### 5 7021-8 #### [facility] CLIA [id number] [address] [place] [address] Erythrocyte distribution width (RBC) [Ratio] 14.5 % Normal 11.5-15.0 [facility] Comment on above: Order Comment: Speci men Type: BLOOD SPECIMEN Performed By: #### 5 7021-8 #### [facility] CLIA [id number] [address] [place] [address] Hematocrit (Bld) [Volume fraction] 44.5 % Normal 39.0-51.0 [facility] Comment on above: Order Comment: Speci men Type: BLOOD SPECIMEN Performed By: #### 5 7021-8 #### [facility] CLIA [id number] [address] [place] [address] Hemoglobin (Bld) [Mass/Vol] 14.4 g/dL Normal 13.0-17.0 [facility] Comment on above: Order Comment: Speci men Type: BLOOD SPECIMEN Performed By: #### 5 7021-8 #### [facility] CLIA [id number] [address] [place] [address] IMMATURE GRAN % 0.9 % Normal [facility] Comment on above: Order Comment: Speci men Type: BLOOD SPECIMEN Performed By: #### 5 7021-8 #### [facility] CLIA [id number] [address] [place] [address] IMMATURE GRAN ABS 0.12 k/uL High <0.10 [facility] Comment on above: Order Comment: Speci men Type: BLOOD SPECIMEN Performed By: #### 5 7021-8 #### [facility] CLIA [id number] [address] [place] [address] Lymphocytes (Bld) [#/Vol] 1.65 10*3/uL Normal 1.00-4.00 [facility] Comment on above: Order Comment: Speci men Type: BLOOD SPECIMEN Performed By: #### 5 7021-8 #### [facility] CLIA [id number] [address] [place] [address] Lymphocytes/100 WBC (Bld) 12.3 % Normal [facility] Comment on above: Order Comment: Speci men Type: BLOOD SPECIMEN Performed By: #### 5 7021-8 #### [facility] CLIA [id number] [address] [place] [address] MCH (RBC) [Entitic mass] 30.3 pg Normal 26.0-34.0 [facility] Comment on above: Order Comment: Speci men Type: BLOOD SPECIMEN Performed By: #### 5 7021-8 #### [facility] CLIA [id number] [address] [place] [address] MCHC (RBC) [Mass/Vol] 32.4 g/dL Normal 30.5-36.0 [facility] Comment on above: Order Comment: Speci men Type: BLOOD SPECIMEN Performed By: #### 5 7021-8 #### [facility] CLIA [id number] [address] [place] [address] MCV (RBC) [Entitic vol] 93.5 fL Normal 80.0-100.0 [facility] Comment on above: Order Comment: Speci men Type: BLOOD SPECIMEN Performed By: #### 5 7021-8 #### [facility] CLIA [id number] [address] [place] [address] Monocytes (Bld) [#/Vol] 0.73 10*3/uL Normal <0.87 [facility] Comment on above: Order Comment: Speci men Type: BLOOD SPECIMEN Performed By: #### 5 7021-8 #### [facility] CLIA [id number] [address] [place] [address] Monocytes/100 WBC (Bld) 5.5 % Normal [facility] Comment on above: Order Comment: Speci men Type: BLOOD SPECIMEN Performed By: #### 5 7021-8 #### [facility] CLIA [id number] [address] [place] [address] Neutrophils (Bld) [#/Vol] 10.08 10*3/uL High 1.45-7.50 [facility] Comment on above: Order Comment: Speci men Type: BLOOD SPECIMEN Performed By: #### 5 7021-8 #### [facility] CLIA [id number] [address] [place] [address] Neutrophils/100 WBC (Bld) 75.4 % Normal [facility] Comment on above: Order Comment: Speci men Type: BLOOD SPECIMEN Performed By: #### 5 7021-8 #### [facility] CLIA [id number] [address] [place] [address] Nucleated RBC (Bld) [#/Vol] 10*3/uL Normal <0.01 [facility] Comment on above: Order Comment: Speci men Type: BLOOD SPECIMEN Performed By: #### 5 7021-8 #### [facility] CLIA [id number] [address] [place] [address] Nucleated RBC/100 WBC (Bld) [Ratio] 0.0 /100 WBC Normal 0.0 [facility] Comment on above: Order Comment: Speci men Type: BLOOD SPECIMEN Performed By: #### 5 7021-8 #### [facility] CLIA [id number] [address] [place] [address] Platelet mean volume (Bld) [Entitic vol] 9.9 fL Normal 9.0-12.7 [facility] Comment on above: Order Comment: Speci men Type: BLOOD SPECIMEN Performed By: #### 5 7021-8 #### [facility] CLIA [id number] [address] [place] [address] Platelets (Bld) [#/Vol] 183 10*3/uL Normal 150-400 [facility] Comment on above: Order Comment: Speci men Type: BLOOD SPECIMEN Performed By: #### 5 7021-8 #### [facility] CLIA [id number] [address] [place] [address] RBC (Bld) [#/Vol] 4.76 10*6/uL Normal 4.20-6.00 [facility] Comment on above: Order Comment: Speci men Type: BLOOD SPECIMEN Performed By: #### 5 7021-8 #### [facility] CLIA [id number] [address] [place] [address] WBC (Bld) [#/Vol] 13.37 10*3/uL High 3.70-11.00 [facility] Comment on above: Order Comment: Speci men Type: BLOOD SPECIMEN Performed By: #### 5 7021-8 #### [facility] CLIA [id number] [address] [place] [address] Comprehensive metabolic 2000 panelon 01-23-2021 Albumin [Mass/Vol] 4.1 g/dL Normal 3.9-4.9 [facility] Comment on above: Order Comment: Speci men Type: BLOOD SPECIMEN Performed By: #### 2 4323-8 #### [facility] CLIA [id number] [address] [place] [address] ALP [Catalytic activity/Vol] 266 U/L High 38-113 [facility] Comment on above: Order Comment: Speci men Type: BLOOD SPECIMEN Performed By: #### 2 4323-8 #### [facility] CLIA [id number] [address] [place] [address] ALT With P-5'-P [Catalytic activity/Vol] 38 U/L Normal 10-54 [facility] Comment on above: Order Comment: Speci men Type: BLOOD SPECIMEN Performed By: #### 2 4323-8 #### [facility] CLIA [id number] [address] [place] [address] Anion gap [Moles/Vol] 10 mmol/L Normal 9-18 [facility] Comment on above: Order Comment: Speci men Type: BLOOD SPECIMEN Performed By: #### 2 4323-8 #### [facility] CLIA [id number] [address] [place] [address] AST With P-5'-P [Catalytic activity/Vol] 35 U/L Normal 14-40 [facility] Comment on above: Order Comment: Speci men Type: BLOOD SPECIMEN Performed By: #### 2 4323-8 #### [facility] CLIA [id number] [address] [place] [address] Bilirubin [Mass/Vol] 0.7 mg/dL Normal 0.2-1.3 [facility] Comment on above: Order Comment: Speci men Type: BLOOD SPECIMEN Performed By: #### 2 4323-8 #### [facility] CLIA [id number] [address] [place] [address] Calcium [Mass/Vol] 8.9 mg/dL Normal 8.5-10.2 [facility] Comment on above: Order Comment: Speci men Type: BLOOD SPECIMEN Performed By: #### 2 4323-8 #### [facility] CLIA [id number] [address] [place] [address] Chloride [Moles/Vol] 98 mmol/L Normal 97-105 [facility] Comment on above: Order Comment: Speci men Type: BLOOD SPECIMEN Performed By: #### 2 4323-8 #### [facility] CLIA [id number] [address] [place] [address] CO2 [Moles/Vol] 26 mmol/L Normal 22-30 [facility] Comment on above: Order Comment: Speci men Type: BLOOD SPECIMEN Performed By: #### 2 4323-8 #### [facility] CLIA [id number] [address] [place] [address] Creatinine [Mass/Vol] 0.78 mg/dL Normal 0.73-1.22 [facility] Comment on above: Order Comment: Speci men Type: BLOOD SPECIMEN Performed By: #### 2 4323-8 #### [facility] CLIA [id number] [address] [place] [address] GFR/1.73 sq M.predicted MDRD (S/P/Bld) [Vol rate/Area] mL/min/{1.73_m2} Normal [facility] Comment on above: Order Comment: Speci men Type: BLOOD SPECIMEN Result Comment: >60 eGFR (Estimated GFR) Units of measure: mL/min/1.73 meters squared eGFR is derived from the reexpressed MDRD Study equation using the following parameters: serum creatinine, age, gender and race. The creatinine assay has been calibrated to be traceable to IDMS. An eGFR <60 mL/min/1.73m2 for >3 months is consistent with chronic kidney disease. Refer to KDOQI guidelines for clinical interpretation. In patients with unstable renal function, e.g. those with acute kidney injury, the eGFR may not accurately reflect actual GFR. Performed By: #### 2 4323-8 #### [facility] CLIA [id number] [address] [place] [address] Glucose [Mass/Vol] 166 mg/dL High 74-99 [facility] Comment on above: Order Comment: Speci men Type: BLOOD SPECIMEN Result Comment: The [place] Diabetes Association (ADA) provides guidance for cutoff values for fasting glucose and random glucose. The ADA defines fasting as no caloric intake for at least 8 hours. Fasting plasma glucose results between 100 to 125 mg/dL indicate increased risk for diabetes (prediabetes). Fasting plasma glucose results greater than or equal to 126 mg/dL meet the criteria for diagnosis of diabetes. In the absence of unequivocal hyperglycemia, results should be confirmed by repeat testing. In a patient with classic symptoms of hyperglycemia or hyperglycemic crisis, random plasma glucose results greater than or equal to 200 mg/dL meet the criteria for diagnosis of diabetes. Reference: Standards of Medical Care in Diabetes 2016, [place] [employer]. Diabetes Care. 2016.39(Suppl 1). Performed By: #### 2 4323-8 #### [facility] CLIA [id number] [address] [place] [address] Potassium [Moles/Vol] 4.6 mmol/L Normal 3.7-5.1 [facility] Comment on above: Order Comment: Speci men Type: BLOOD SPECIMEN Performed By: #### 2 4323-8 #### [facility] CLIA [id number] [address] [place] [address] Protein [Mass/Vol] 7.4 g/dL Normal 6.3-8.0 [facility] Comment on above: Order Comment: Speci men Type: BLOOD SPECIMEN Performed By: #### 2 4323-8 #### [facility] CLIA [id number] [address] [place] [address] Sodium [Moles/Vol] 134 mmol/L Low 136-144 [facility] Comment on above: Order Comment: Speci men Type: BLOOD SPECIMEN Performed By: #### 2 4323-8 #### [facility] CLIA [id number] [address] [place] [address] Urea nitrogen [Mass/Vol] 11 mg/dL Normal 9-24 [facility] Comment on above: Order Comment: Speci men Type: BLOOD SPECIMEN Performed By: #### 2 4323-8 #### [facility] CLIA [id number] [address] [place] [address] HISTORY PHYSICALon 1 HISTORY PHYSICAL HNO ID: [id number] Author: Karolina Broussard MD Service: Hospital Medicine Author Type: Physician Type: HANDP Filed: 01/24/2021 8:43 PM Note Text: HOUSE MEDICINE SERVICE HISTORY AND PHYSICAL SERVICE DATE: January 23, 2021 SERVICE TIME: 2.46PM NIGHT AND WEEKEND COVERAGE: From 6 AM to 5 PM: You may reach the House Medicine regulatory intern currently assigned to this patient by finding their pager number on the treatment team (they will be assigned as the regulatory intern or resident). It is the last four digits in the phone number beginning with ([phone]). We encourage the use of [employer] Secure Chat. PCP: Reinaldo Paez MD Admitting Attending: Lizbeth Renteria MD SUBJECTIVE Chief Complaint: SVT HPI: This is a 55 year old male with PMH of MDD, T2DM, HTN, COPD, NAFLD, Papillary Thyroid Carcinoma s/p Thyroidectomy --> Hypothyroidism presented [place] [facility] due to palpitations. Patient states he felt like his heart was beating slower than normal. Patient was recently admitted for acute CHF exacerbation, EF (60% 12/2020), and underwent cath. Patient received stent in mid LAD and treated w/ Lasix and metoprolol. Also was treated for AECOPD on steroids and breathing tx. During admission patient had runs of NSVT and was started on amio drip. Patient did not respond well to transition to oral amiodarone and was kept on drip. Patient transferred to [facility] under EP for possible ablation. Most recent outside hospital labs showed WBC 22.7, HgB 13.5, PLT 185, K 4.6, Na 133, CL 102, Mg 2.2, Glu 204, Cr 0.85, Pro-BNP 222, free T4 1.12, TSH 3.81, HDL 28, LDL 50, Total cholesterol 116. CXR obtained two days ago show findings consistent with CHF and left basilar atelectasis. Outside Echo (01/18/21) showed EF 60%, mild LA enlargement, mild focal aortic calcification, trivial TV/MV insufficiency. Upon evaluation patient states he is currently asymptomatic, denies chest pain, palpitations, SOB, dizziness, abdominal pain, fever, chills, nausea, emesis, constipation, diarrhea, dysuria. Currently labs electrolytes, CBC, CMP being obtained along with CXR. Review of Systems: GENERAL: No weight loss, malaise or fevers RESPIRATORY: Negative for cough, hemoptysis, wheezing, COPD, dyspnea or shortness of breath CARDIOVASCULAR: palpitations GI: No nausea, vomiting, or diarrhea : No history of dysuria, frequency or incontinence NEURO: No history of headaches, syncope, paralysis, seizures or tremors PAST MEDICAL HISTORY Diagnosis Date Coronary artery disease involving hopi coronary artery of hopi heart without angina pectoris 01/22/2021 Depression DM (diabetes mellitus) (HCC) HTN (hypertension) Multinodular goiter 01/2015 Papillary thyroid carcinoma (HCC) 01/2015 PAST SURGICAL HISTORY Procedure Laterality Date ; THYROIDECTOMY TOTAL OR COMPLETE 04/2015 KNEE LEFT OP SURGERY 1997 benign tumor TONSILLECTOMY AND ADENOIDECTOMY HX 73 FAMILY HISTORY Problem Relation Age of Onset Heart Father valve disease Alcohol/Drug Father Diabetes Father Cancer Paternal Grandfather pancreatic, alcoholic Prostate Cancer Paternal Grandfather Hypertension Paternal Grandmother Heart Paternal Grandmother Colon Cancer Paternal Uncle Heart Mother Alcohol/Drug Mother Diabetes Mother Stroke Mother Social History Tobacco Use Smoking status: Former Smoker Packs/day: 1.00 Years: 10.00 Pack years: 10.00 Types: Cigars Quit date: 09/07/2010 Years since quittin.3 Smokeless tobacco: Never Used Tobacco comment: occasionally Substance Use Topics Alcohol use: No Comment: quit, hx of Drug use: No Medications: acetaminophen (TYLENOL) 325 mg tablet, Take 650 mg by mouth every 4 hours as needed for pain or fever (specify)., Disp: , Rfl: albuterol HFA (PROVENTIL HFA, VENTOLIN HFA) 90 mcg/actuation inhaler, Inhale 2 Puffs as instructed every 4 hours as needed for wheezing/shortness of breath., Disp: , Rfl: benzocaine 20 % gel, Use 1 application as instructed as needed (sore gums). One dental application every 4 hours as needed for sore gums (supervised self-administration), Disp: , Rfl: carboxymethylcellulose sodium (ARTIFICIAL TEARS) 1 % drops, Use 1 Drop in both eyes as needed (dry eyes)., Disp: , Rfl: atorvastatin (LIPITOR) 10 mg tablet, Take 10 mg by mouth once daily., Disp: , Rfl: citalopram (CELEXA) 20 mg tablet, Take 20 mg by mouth once daily. , Disp: , Rfl: mometasone-formoterol (DULERA) 100-5 mcg/actuation inhaler, Inhale 2 Puffs as instructed twice daily., Disp: , Rfl: DULoxetine (CYMBALTA) 60 mg capsule, Take 60 mg by mouth once daily., Disp: , Rfl: furosemide (LASIX) 40 mg tablet, Take 40 mg by mouth twice daily., Disp: , Rfl: guaiFENesin (ROBITUSSIN) 100 mg/5 mL syrup, Take 200 mg by mouth daily at bedtime. For cough, Disp: , Rfl: glipiZIDE (GLUCOTROL) 5 mg tablet, Take 5 mg by mouth twice daily before meals., Disp: , Rfl: dextrose 40 % gel, Take 15 g by mouth as (more content not included)... Normal [facility] NURSING PROGon 01-23-2021 NURSING PROG HNO ID: [id number] Author: Kyra Hinson RN Service: Nursing Author Type: Registered Nurse Type: Nursing Progress Note Filed: 01/23/2021 6:37 PM Note Text: Summary: transfer note Transferred from [facility] to [facility] via wheelchair with all belongings. 4200 staff in room with patient. Normal [facility] HNO ID: [id number] Author: Connie Grier RN Service: ? 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 Last discharge within 30 days: No Advance Directive: Current Advance Directive: None Business Solutions Consultant Attempted to Assist with AD Completion: Yes Action: Education Provided Health LiteracyHow often do you need to have someone help you when you read instructions, pamphlets, or other written material from your doctor or pharmacy? : 2 - Rarely How confident are you filling out medical forms by yourself?: 2 - Quite a bit If Patient scores > 3 on either question, the following interventions were put into place:: Patient did not score > 3 on either question. Baseline Mental Status Prior to this Illness what was the patient's Baseline Mental Status?: Alert AND Oriented Prior to this illness, has anyone described the patient having any of the following behaviors?: Not Applicable Relationship of the informant to the patient:: Self Functional Status: Needs Assistance Does Patient Currently Receive Any Community Services or Home Care?: None Equipment Prior to Admission: None Has the Patient Been in a Senior Care Facility in the Past 30 days?: No SOCIAL: Living Arrangements: Assisted Living Lives With: Alone Facility Information: [facility] Financial Resources: Disabled Primary Contact: Extended Emergency Contact Information Primary Emergency Contact: No,One Relation: None Supportive Patient Contact:: Yes Contact Resources: Family Family Name/Phone: fabian Calvin Caregiver AssessmentCaregiver is ready, willing and able to meet the patient's needs as recommended by the inter-professional team:: Yes Does the patient have an acute stroke diagnosis, or has the patient had a stroke during this admission?: No Patient's transition needs and plan for meeting these needs: return to [place] Patient's perception of need for this admission: [place] Medication Adherance I am convinced of the importance of my prescription medication: 0 - Agree Completely I worry that my prescription medication will do more harm than good to me : 0 - Disagree Completely I feel financially burdened by my [id number] expenses for my prescription medication:: 0 - Disagree Completely Risk Score: 0 Patient is categorized as: Low risk < 2 Are you interested in bedside delivery of your medications? No Is Patient Psychosocially Complex?: No ASSESSMENT AND PLAN: Medical Needs: Medical Needs: Two or more chronic diseases;Obesity Psychosocial Needs: Psychosocial Needs: Mental Health Diagnosis Mental Health Information: MDD FREEDOM OF CHOICE EXPLAINED: [place] of Choice Given: No Reason Not Given: No placements necessary POTENTIAL TRANSITION PLANS Home Met with pt, explained CM role. Resides in [place] at [facility]. Facility manages his meds. He can drive if he wants to. Plan [place] to return [place] at [place]. SIGNATURE: Connie Grier RN PATIENT NAME: Derrell Hoyt DATE: January 22, 2021 TIME: 11:52 AM PAGER/CONTACT #: [phone] Normal [facility] CBC W Auto Differential pane l (Bld)on 01-22-2021 Basophils (Bld) [#/Vol] 0.07 10*3/uL Normal <0.11 [facility] Comment on above: Order Comment: Speci men Type: BLOOD SPECIMEN Performed By: #### 5 7021-8 #### [facility] CLIA [id number] [address] [place] [address] Basophils/100 WBC (Bld) 0.5 % Normal [facility] Comment on above: Order Comment: Speci men Type: BLOOD SPECIMEN Performed By: #### 5 7021-8 #### [facility] CLIA [id number] [address] [place] [address] Differential cell count method Nom (Bld) Auto Normal [facility] Comment on above: Order Comment: Speci men Type: BLOOD SPECIMEN Performed By: #### 5 7021-8 #### [facility] CLIA [id number] [address] [place] [address] Eosinophils (Bld) [#/Vol] 0.51 10*3/uL High <0.46 [facility] Comment on above: Order Comment: Speci men Type: BLOOD SPECIMEN Performed By: #### 5 7021-8 #### [facility] CLIA [id number] [address] [place] [address] Eosinophils/100 WBC (Bld) 3.9 % Normal [facility] Comment on above: Order Comment: Speci men Type: BLOOD SPECIMEN Performed By: #### 5 7021-8 #### [facility] CLIA [id number] [address] [place] [address] Erythrocyte distribution width (RBC) [Ratio] 14.8 % Normal 11.5-15.0 [facility] Comment on above: Order Comment: Speci men Type: BLOOD SPECIMEN Performed By: #### 5 7021-8 #### [facility] CLIA [id number] [address] [place] [address] Hematocrit (Bld) [Volume fraction] 41.8 % Normal 39.0-51.0 [facility] Comment on above: Order Comment: Speci men Type: BLOOD SPECIMEN Performed By: #### 5 7021-8 #### [facility] CLIA [id number] [address] [place] [address] Hemoglobin (Bld) [Mass/Vol] 13.2 g/dL Normal 13.0-17.0 [facility] Comment on above: Order Comment: Speci men Type: BLOOD SPECIMEN Performed By: #### 5 7021-8 #### [facility] CLIA [id number] [address] [place] [address] IMMATURE GRAN % 0.8 % Normal [facility] Comment on above: Order Comment: Speci men Type: BLOOD SPECIMEN Performed By: #### 5 7021-8 #### [facility] CLIA [id number] [address] [place] [address] IMMATURE GRAN ABS 0.10 k/uL High <0.10 [facility] Comment on above: Order Comment: Speci men Type: BLOOD SPECIMEN Performed By: #### 5 7021-8 #### [facility] CLIA [id number] [address] [place] [address] Lymphocytes (Bld) [#/Vol] 1.49 10*3/uL Normal 1.00-4.00 [facility] Comment on above: Order Comment: Speci men Type: BLOOD SPECIMEN Performed By: #### 5 7021-8 #### [facility] CLIA [id number] [address] [place] [address] Lymphocytes/100 WBC (Bld) 11.5 % Normal [facility] Comment on above: Order Comment: Speci men Type: BLOOD SPECIMEN Performed By: #### 5 7021-8 #### [facility] CLIA [id number] [address] [place] [address] MCH (RBC) [Entitic mass] 30.3 pg Normal 26.0-34.0 [facility] Comment on above: Order Comment: Speci men Type: BLOOD SPECIMEN Performed By: #### 5 7021-8 #### [facility] CLIA [id number] [address] [place] [address] MCHC (RBC) [Mass/Vol] 31.6 g/dL Normal 30.5-36.0 [facility] Comment on above: Order Comment: Speci men Type: BLOOD SPECIMEN Performed By: #### 5 7021-8 #### [facility] CLIA [id number] [address] [place] [address] MCV (RBC) [Entitic vol] 95.9 fL Normal 80.0-100.0 [facility] Comment on above: Order Comment: Speci men Type: BLOOD SPECIMEN Performed By: #### 5 7021-8 #### [facility] CLIA [id number] [address] [place] [address] Monocytes (Bld) [#/Vol] 0.78 10*3/uL Normal <0.87 [facility] Comment on above: Order Comment: Speci men Type: BLOOD SPECIMEN Performed By: #### 5 7021-8 #### [facility] CLIA [id number] [address] [place] [address] Monocytes/100 WBC (Bld) 6.0 % Normal [facility] Comment on above: Order Comment: Speci men Type: BLOOD SPECIMEN Performed By: #### 5 7021-8 #### [facility] CLIA [id number] [address] [place] [address] Neutrophils (Bld) [#/Vol] 10.05 10*3/uL High 1.45-7.50 [facility] Comment on above: Order Comment: Speci men Type: BLOOD SPECIMEN Performed By: #### 5 7021-8 #### [facility] CLIA [id number] [address] [place] [address] Neutrophils/100 WBC (Bld) 77.3 % Normal [facility] Comment on above: Order Comment: Speci men Type: BLOOD SPECIMEN Performed By: #### 5 7021-8 #### [facility] CLIA [id number] [address] [place] [address] Nucleated RBC (Bld) [#/Vol] 10*3/uL Normal <0.01 [facility] Comment on above: Order Comment: Speci men Type: BLOOD SPECIMEN Performed By: #### 5 7021-8 #### [facility] CLIA [id number] [address] [place] [address] Nucleated RBC/100 WBC (Bld) [Ratio] 0.0 /100 WBC Normal 0.0 [facility] Comment on above: Order Comment: Speci men Type: BLOOD SPECIMEN Performed By: #### 5 7021-8 #### [facility] CLIA [id number] [address] [place] [address] Platelet mean volume (Bld) [Entitic vol] 10.5 fL Normal 9.0-12.7 [facility] Comment on above: Order Comment: Speci men Type: BLOOD SPECIMEN Performed By: #### 5 7021-8 #### [facility] CLIA [id number] [address] [place] [address] Platelets (Bld) [#/Vol] 177 10*3/uL Normal 150-400 [facility] Comment on above: Order Comment: Speci men Type: BLOOD SPECIMEN Performed By: #### 5 7021-8 #### [facility] CLIA [id number] [address] [place] [address] RBC (Bld) [#/Vol] 4.36 10*6/uL Normal 4.20-6.00 [facility] Comment on above: Order Comment: Speci men Type: BLOOD SPECIMEN Performed By: #### 5 7021-8 #### [facility] CLIA [id number] [address] [place] [address] WBC (Bld) [#/Vol] 13.00 10*3/uL High 3.70-11.00 [facility] Comment on above: Order Comment: Speci men Type: BLOOD SPECIMEN Performed By: #### 5 7021-8 #### [facility] CLIA [id number] [address] [place] [address] Comprehensive metabolic 2000 panelon 01-22-2021 Albumin [Mass/Vol] 3.8 g/dL Low 3.9-4.9 [facility] Comment on above: Order Comment: Speci men Type: BLOOD SPECIMEN Performed By: #### 2 4323-8 #### [facility] CLIA [id number] [address] [place] [address] ALP [Catalytic activity/Vol] 217 U/L High 38-113 [facility] Comment on above: Order Comment: Speci men Type: BLOOD SPECIMEN Performed By: #### 2 4323-8 #### [facility] CLIA [id number] [address] [place] [address] ALT With P-5'-P [Catalytic activity/Vol] 33 U/L Normal 10-54 [facility] Comment on above: Order Comment: Speci men Type: BLOOD SPECIMEN Performed By: #### 2 4323-8 #### [facility] CLIA [id number] [address] [place] [address] Anion gap [Moles/Vol] 8 mmol/L Low 9-18 [facility] Comment on above: Order Comment: Speci men Type: BLOOD SPECIMEN Performed By: #### 2 4323-8 #### [facility] CLIA [id number] [address] [place] [address] AST With P-5'-P [Catalytic activity/Vol] 30 U/L Normal 14-40 [facility] Comment on above: Order Comment: Speci men Type: BLOOD SPECIMEN Performed By: #### 2 4323-8 #### [facility] CLIA [id number] [address] [place] [address] Bilirubin [Mass/Vol] 0.5 mg/dL Normal 0.2-1.3 [facility] Comment on above: Order Comment: Speci men Type: BLOOD SPECIMEN Performed By: #### 2 4323-8 #### [facility] CLIA [id number] [address] [place] [address] Calcium [Mass/Vol] 8.7 mg/dL Normal 8.5-10.2 [facility] Comment on above: Order Comment: Speci men Type: BLOOD SPECIMEN Performed By: #### 2 4323-8 #### [facility] CLIA [id number] [address] [place] [address] Chloride [Moles/Vol] 98 mmol/L Normal 97-105 [facility] Comment on above: Order Comment: Speci men Type: BLOOD SPECIMEN Performed By: #### 2 4323-8 #### [facility] CLIA [id number] [address] [place] [address] CO2 [Moles/Vol] 27 mmol/L Normal 22-30 [facility] Comment on above: Order Comment: Speci men Type: BLOOD SPECIMEN Performed By: #### 2 4323-8 #### [facility] CLIA [id number] [address] [place] [address] Creatinine [Mass/Vol] 0.82 mg/dL Normal 0.73-1.22 [facility] Comment on above: Order Comment: Speci men Type: BLOOD SPECIMEN Performed By: #### 2 4323-8 #### [facility] CLIA [id number] [address] [place] [address] GFR/1.73 sq M.predicted MDRD (S/P/Bld) [Vol rate/Area] mL/min/{1.73_m2} Normal [facility] Comment on above: Order Comment: Speci men Type: BLOOD SPECIMEN Result Comment: >60 eGFR (Estimated GFR) Units of measure: mL/min/1.73 meters squared eGFR is derived from the reexpressed MDRD Study equation using the following parameters: serum creatinine, age, gender and race. The creatinine assay has been calibrated to be traceable to IDMS. An eGFR <60 mL/min/1.73m2 for >3 months is consistent with chronic kidney disease. Refer to KDOQI guidelines for clinical interpretation. In patients with unstable renal function, e.g. those with acute kidney injury, the eGFR may not accurately reflect actual GFR. Performed By: #### 2 4323-8 #### [facility] CLIA [id number] [address] [place] [address] Glucose [Mass/Vol] 175 mg/dL High 74-99 [facility] Comment on above: Order Comment: Speci men Type: BLOOD SPECIMEN Result Comment: The [place] [employer] (ADA) provides guidance for cutoff values for fasting glucose and random glucose. The ADA defines fasting as no caloric intake for at least 8 hours. Fasting plasma glucose results between 100 to 125 mg/dL indicate increased risk for diabetes (prediabetes). Fasting plasma glucose results greater than or equal to 126 mg/dL meet the criteria for diagnosis of diabetes. In the absence of unequivocal hyperglycemia, results should be confirmed by repeat testing. In a patient with classic symptoms of hyperglycemia or hyperglycemic crisis, random plasma glucose results greater than or equal to 200 mg/dL meet the criteria for diagnosis of diabetes. Reference: Standards of Medical Care in Diabetes 2016, [place] [employer]. Diabetes Care. 2016.39(Suppl 1). Performed By: #### 2 4323-8 #### [facility] CLIA [id number] [address] [place] [address] Potassium [Moles/Vol] 4.4 mmol/L Normal 3.7-5.1 [facility] Comment on above: Order Comment: Speci men Type: BLOOD SPECIMEN Performed By: #### 2 4323-8 #### [facility] CLIA [id number] [address] [place] [address] Protein [Mass/Vol] 6.8 g/dL Normal 6.3-8.0 [facility] Comment on above: Order Comment: Speci men Type: BLOOD SPECIMEN Performed By: #### 2 4323-8 #### [facility] CLIA [id number] [address] [place] [address] Sodium [Moles/Vol] 133 mmol/L Low 136-144 [facility] Comment on above: Order Comment: Speci men Type: BLOOD SPECIMEN Performed By: #### 2 4323-8 #### [facility] CLIA [id number] [address] [place] [address] Urea nitrogen [Mass/Vol] 14 mg/dL Normal 9-24 [facility] Comment on above: Order Comment: Speci men Type: BLOOD SPECIMEN Performed By: #### 2 4323-8 #### [facility] CLIA [id number] [address] [place] [address] CBC W Auto Differential pane l (Bld)on 08-01-2021 Basophils (Bld) [#/Vol] 0.12 10*3/uL High <0.11 [facility] Comment on above: Order Comment: Speci men Type: BLOOD SPECIMEN Performed By: #### 5 7021-8 #### [facility] CLIA [id number] [address] [place] [address] Basophils/100 WBC (Bld) 0.8 % Normal [facility] Comment on above: Order Comment: Speci men Type: BLOOD SPECIMEN Performed By: #### 5 7021-8 #### [facility] CLIA [id number] [address] [place] [address] Differential cell count method Nom (Bld) Auto Normal [facility] Comment on above: Order Comment: Speci men Type: BLOOD SPECIMEN Performed By: #### 5 7021-8 #### [facility] CLIA [id number] [address] [place] [address] Eosinophils (Bld) [#/Vol] 0.19 10*3/uL Normal <0.46 [facility] Comment on above: Order Comment: Speci men Type: BLOOD SPECIMEN Performed By: #### 5 7021-8 #### [facility] CLIA [id number] [address] [place] [address] Eosinophils/100 WBC (Bld) 1.2 % Normal [facility] Comment on above: Order Comment: Speci men Type: BLOOD SPECIMEN Performed By: #### 5 7021-8 #### [facility] CLIA [id number] [address] [place] [address] Erythrocyte distribution width (RBC) [Ratio] 15.0 % Normal 11.5-15.0 [facility] Comment on above: Order Comment: Speci men Type: BLOOD SPECIMEN Performed By: #### 5 7021-8 #### [facility] CLIA [id number] [address] [place] [address] Hematocrit (Bld) [Volume fraction] 43.1 % Normal 39.0-51.0 [facility] Comment on above: Order Comment: Speci men Type: BLOOD SPECIMEN Performed By: #### 5 7021-8 #### [facility] CLIA [id number] [address] [place] [address] Hemoglobin (Bld) [Mass/Vol] 13.7 g/dL Normal 13.0-17.0 [facility] Comment on above: Order Comment: Speci men Type: BLOOD SPECIMEN Performed By: #### 5 7021-8 #### [facility] CLIA [id number] [address] [place] [address] IMMATURE GRAN % 0.9 % Normal [facility] Comment on above: Order Comment: Speci men Type: BLOOD SPECIMEN Performed By: #### 5 7021-8 #### [facility] CLIA [id number] [address] [place] [address] IMMATURE GRAN ABS 0.14 k/uL High <0.10 [facility] Comment on above: Order Comment: Speci men Type: BLOOD SPECIMEN Performed By: #### 5 7021-8 #### [facility] CLIA [id number] [address] [place] [address] Lymphocytes (Bld) [#/Vol] 2.45 10*3/uL Normal 1.00-4.00 [facility] Comment on above: Order Comment: Speci men Type: BLOOD SPECIMEN Performed By: #### 5 7021-8 #### [facility] CLIA [id number] [address] [place] [address] Lymphocytes/100 WBC (Bld) 15.9 % Normal [facility] Comment on above: Order Comment: Speci men Type: BLOOD SPECIMEN Performed By: #### 5 7021-8 #### [facility] CLIA [id number] [address] [place] [address] MCH (RBC) [Entitic mass] 30.4 pg Normal 26.0-34.0 [facility] Comment on above: Order Comment: Speci men Type: BLOOD SPECIMEN Performed By: #### 5 7021-8 #### [facility] CLIA [id number] [address] [place] [address] MCHC (RBC) [Mass/Vol] 31.8 g/dL Normal 30.5-36.0 [facility] Comment on above: Order Comment: Speci men Type: BLOOD SPECIMEN Performed By: #### 5 7021-8 #### [facility] CLIA [id number] [address] [place] [address] MCV (RBC) [Entitic vol] 95.8 fL Normal 80.0-100.0 [facility] Comment on above: Order Comment: Speci men Type: BLOOD SPECIMEN Performed By: #### 5 7021-8 #### [facility] CLIA [id number] [address] [place] [address] Monocytes (Bld) [#/Vol] 0.76 10*3/uL Normal <0.87 [facility] Comment on above: Order Comment: Speci men Type: BLOOD SPECIMEN Performed By: #### 5 7021-8 #### [facility] CLIA [id number] [address] [place] [address] Monocytes/100 WBC (Bld) 4.9 % Normal [facility] Comment on above: Order Comment: Speci men Type: BLOOD SPECIMEN Performed By: #### 5 7021-8 #### [facility] CLIA [id number] [address] [place] [address] Neutrophils (Bld) [#/Vol] 11.76 10*3/uL High 1.45-7.50 [facility] Comment on above: Order Comment: Speci men Type: BLOOD SPECIMEN Performed By: #### 5 7021-8 #### [facility] CLIA [id number] [address] [place] [address] Neutrophils/100 WBC (Bld) 76.3 % Normal [facility] Comment on above: Order Comment: Speci men Type: BLOOD SPECIMEN Performed By: #### 5 7021-8 #### [facility] CLIA [id number] [address] [place] [address] Nucleated RBC (Bld) [#/Vol] 10*3/uL Normal <0.01 [facility] Comment on above: Order Comment: Speci men Type: BLOOD SPECIMEN Performed By: #### 5 7021-8 #### [facility] CLIA [id number] [address] [place] [address] Nucleated RBC/100 WBC (Bld) [Ratio] 0.0 /100 WBC Normal 0.0 [facility] Comment on above: Order Comment: Speci men Type: BLOOD SPECIMEN Performed By: #### 5 7021-8 #### [facility] CLIA [id number] [address] [place] [address] Platelet mean volume (Bld) [Entitic vol] 10.3 fL Normal 9.0-12.7 [facility] Comment on above: Order Comment: Speci men Type: BLOOD SPECIMEN Performed By: #### 5 7021-8 #### [facility] CLIA [id number] [address] [place] [address] Platelets (Bld) [#/Vol] 180 10*3/uL Normal 150-400 [facility] Comment on above: Order Comment: Speci men Type: BLOOD SPECIMEN Performed By: #### 5 7021-8 #### [facility] CLIA [id number] [address] [place] [address] RBC (Bld) [#/Vol] 4.50 10*6/uL Normal 4.20-6.00 [facility] Comment on above: Order Comment: Speci men Type: BLOOD SPECIMEN Performed By: #### 5 7021-8 #### [facility] CLIA [id number] [address] [place] [address] WBC (Bld) [#/Vol] 15.42 10*3/uL High 3.70-11.00 [facility] Comment on above: Order Comment: Speci men Type: BLOOD SPECIMEN Performed By: #### 5 7021-8 #### [facility] CLIA [id number] [address] [place] [address] Comprehensive metabolic 2000 panelon 01-21-2021 Albumin [Mass/Vol] 4.0 g/dL Normal 3.9-4.9 [facility] Comment on above: Order Comment: Speci men Type: BLOOD SPECIMEN Performed By: #### 2 4323-8 #### [facility] CLIA [id number] [address] [place] [address] ALP [Catalytic activity/Vol] 196 U/L High 38-113 [facility] Comment on above: Order Comment: Speci men Type: BLOOD SPECIMEN Performed By: #### 2 4323-8 #### [facility] CLIA [id number] [address] [place] [address] ALT With P-5'-P [Catalytic activity/Vol] 37 U/L Normal 10-54 [facility] Comment on above: Order Comment: Speci men Type: BLOOD SPECIMEN Performed By: #### 2 4323-8 #### [facility] CLIA [id number] [address] [place] [address] Anion gap [Moles/Vol] 10 mmol/L Normal 9-18 [facility] Comment on above: Order Comment: Speci men Type: BLOOD SPECIMEN Performed By: #### 2 4323-8 #### [facility] CLIA [id number] [address] [place] [address] AST With P-5'-P [Catalytic activity/Vol] 29 U/L Normal 14-40 [facility] Comment on above: Order Comment: Speci men Type: BLOOD SPECIMEN Performed By: #### 2 4323-8 #### [facility] CLIA [id number] [address] [place] [address] Bilirubin [Mass/Vol] 0.4 mg/dL Normal 0.2-1.3 [facility] Comment on above: Order Comment: Speci men Type: BLOOD SPECIMEN Performed By: #### 2 4323-8 #### [facility] CLIA [id number] [address] [place] [address] Calcium [Mass/Vol] 8.6 mg/dL Normal 8.5-10.2 [facility] Comment on above: Order Comment: Speci men Type: BLOOD SPECIMEN Performed By: #### 2 4323-8 #### [facility] CLIA [id number] [address] [place] [address] Chloride [Moles/Vol] 99 mmol/L Normal 97-105 [facility] Comment on above: Order Comment: Speci men Type: BLOOD SPECIMEN Performed By: #### 2 4323-8 #### [facility] CLIA [id number] [address] [place] [address] CO2 [Moles/Vol] 25 mmol/L Normal 22-30 [facility] Comment on above: Order Comment: Speci men Type: BLOOD SPECIMEN Performed By: #### 2 4323-8 #### [facility] CLIA [id number] [address] [place] [address] Creatinine [Mass/Vol] 0.85 mg/dL Normal 0.73-1.22 [facility] Comment on above: Order Comment: Speci men Type: BLOOD SPECIMEN Performed By: #### 2 4323-8 #### [facility] CLIA [id number] [address] [place] [address] GFR/1.73 sq M.predicted MDRD (S/P/Bld) [Vol rate/Area] mL/min/{1.73_m2} Normal [facility] Comment on above: Order Comment: Speci men Type: BLOOD SPECIMEN Result Comment: >60 eGFR (Estimated GFR) Units of measure: mL/min/1.73 meters squared eGFR is derived from the reexpressed MDRD Study equation using the following parameters: serum creatinine, age, gender and race. The creatinine assay has been calibrated to be traceable to IDMS. An eGFR <60 mL/min/1.73m2 for >3 months is consistent with chronic kidney disease. Refer to KDOQI guidelines for clinical interpretation. In patients with unstable renal function, e.g. those with acute kidney injury, the eGFR may not accurately reflect actual GFR. Performed By: #### 2 4323-8 #### [facility] CLIA [id number] [address] [place] [address] Glucose [Mass/Vol] 156 mg/dL High 74-99 [facility] Comment on above: Order Comment: Speci men Type: BLOOD SPECIMEN Result Comment: The [place] [employer] (ADA) provides guidance for cutoff values for fasting glucose and random glucose. The ADA defines fasting as no caloric intake for at least 8 hours. Fasting plasma glucose results between 100 to 125 mg/dL indicate increased risk for diabetes (prediabetes). Fasting plasma glucose results greater than or equal to 126 mg/dL meet the criteria for diagnosis of diabetes. In the absence of unequivocal hyperglycemia, results should be confirmed by repeat testing. In a patient with classic symptoms of hyperglycemia or hyperglycemic crisis, random plasma glucose results greater than or equal to 200 mg/dL meet the criteria for diagnosis of diabetes. Reference: Standards of Medical Care in Diabetes 2016, [place] [employer]. Diabetes Care. 2016.39(Suppl 1). Performed By: #### 2 4323-8 #### [facility] CLIA [id number] [address] [place] [address] Potassium [Moles/Vol] 4.4 mmol/L Normal 3.7-5.1 [facility] Comment on above: Order Comment: Speci men Type: BLOOD SPECIMEN Performed By: #### 2 4323-8 #### [facility] CLIA [id number] [address] [place] [address] Protein [Mass/Vol] 7.3 g/dL Normal 6.3-8.0 [facility] Comment on above: Order Comment: Speci men Type: BLOOD SPECIMEN Performed By: #### 2 4323-8 #### [facility] CLIA [id number] [address] [place] [address] Sodium [Moles/Vol] 134 mmol/L Low 136-144 [facility] Comment on above: Order Comment: Speci men Type: BLOOD SPECIMEN Performed By: #### 2 4323-8 #### [facility] CLIA [id number] [address] [place] [address] Urea nitrogen [Mass/Vol] 16 mg/dL Normal 9-24 [facility] Comment on above: Order Comment: Speci men Type: BLOOD SPECIMEN Performed By: #### 2 4323-8 #### [facility] CLIA [id number] [address] [place] [address] Gas and Carbon monoxide pane l (BldV)on 01-21-2021 Base excess Calc (BldV) [Moles/Vol] 0.7 mmol/L Normal 0-2 [facility] Comment on above: Order Comment: Speci men Type: BLOOD SPECIMEN Performed By: #### 5 7021-8 #### [facility] CLIA [id number] [address] [place] [address] Body temperature 97.7 [degF] Normal [facility] Comment on above: Order Comment: Speci men Type: BLOOD SPECIMEN Performed By: #### 5 7021-8 #### [facility] CLIA [id number] [address] [place] [address] CALCIUM IONIZED, PH CORRECTED 1.10 mmol/L Normal 1.08-1.30 [facility] Comment on above: Order Comment: Speci men Type: BLOOD SPECIMEN Performed By: #### 5 7021-8 #### [facility] CLIA [id number] [address] [place] [address] Calcium.ionized (BldV) [Mass/Vol] 1.13 mmol/L Normal 1.08-1.30 [facility] Comment on above: Order Comment: Speci men Type: BLOOD SPECIMEN Performed By: #### 5 7021-8 #### [facility] CLIA [id number] [address] [place] [address] Carboxyhemoglobin (BldV) [Mass fraction] 2.2 % High 0.0-2.0 [facility] Comment on above: Order Comment: Speci men Type: BLOOD SPECIMEN Result Comment: Carb oxyhemoglobin Reference Range for Smokers: 2.0-8.0% Performed By: #### 5 7021-8 #### [facility] CLIA [id number] [address] [place] [address] CO2 (BldV) [Partial pressure] 51 mm[Hg] Normal 42-55 [facility] Comment on above: Order Comment: Speci men Type: BLOOD SPECIMEN Performed By: #### 5 7021-8 #### [facility] CLIA [id number] [address] [place] [address] CO2 [Moles/Vol] 24.0 mmol/L Low 25-29 [facility] Comment on above: Order Comment: Speci men Type: BLOOD SPECIMEN Performed By: #### 5 7021-8 #### [facility] CLIA [id number] [address] [place] [address] CO2 adjusted to patient's actual temperature (BldV) [Partial pressure] 50 mmHg Normal 42-55 [facility] Comment on above: Order Comment: Speci men Type: BLOOD SPECIMEN Performed By: #### 5 7021-8 #### [facility] CLIA [id number] [address] [place] [address] Glucose [Mass/Vol] 181 mg/dL High 60-105 [facility] Comment on above: Order Comment: Speci men Type: BLOOD SPECIMEN Performed By: #### 5 7021-8 #### [facility] CLIA [id number] [address] [place] [address] HCO3 (Bld) [Moles/Vol] 26.9 mmol/L Normal 24-28 [facility] Comment on above: Order Comment: Speci men Type: BLOOD SPECIMEN Performed By: #### 5 7021-8 #### [facility] CLIA [id number] [address] [place] [address] Hematocrit (Bld) [Volume fraction] 43.1 % Normal 39.0-51.0 [facility] Comment on above: Order Comment: Speci men Type: BLOOD SPECIMEN Performed By: #### 5 7021-8 #### [facility] CLIA [id number] [address] [place] [address] Hemoglobin (Bld) [Mass/Vol] 14.0 g/dL Normal 13.0-17.0 [facility] Comment on above: Order Comment: Speci men Type: BLOOD SPECIMEN Performed By: #### 5 7021-8 #### [facility] CLIA [id number] [address] [place] [address] Methemoglobin (Bld) [Mass fraction] % Normal 0.0-1.5 [facility] Comment on above: Order Comment: Speci men Type: BLOOD SPECIMEN Performed By: #### 5 7021-8 #### [facility] CLIA [id number] [address] [place] [address] O2 THERAPY NC = Nasal Cannula Normal [facility] Comment on above: Order Comment: Speci men Type: BLOOD SPECIMEN Performed By: #### 5 7021-8 #### [facility] CLIA [id number] [address] [place] [address] Oxygen (BldV) [Partial pressure] 150 mm[Hg] High 3545 [facility] Comment on above: Order Comment: Speci men Type: BLOOD SPECIMEN Performed By: #### 5 7021-8 #### [facility] CLIA [id number] [address] [place] [address] Oxygen adjusted to patient's actual temperature (BldV) [Partial pressure] 147 mmHg High 35-45 [facility] Comment on above: Order Comment: Speci men Type: BLOOD SPECIMEN Performed By: #### 5 7021-8 #### [facility] CLIA [id number] [address] [place] [address] Oxygen saturation in Blood 97.6 % High 60-85 [facility] Comment on above: Order Comment: Speci men Type: BLOOD SPECIMEN Performed By: #### 5 7021-8 #### [facility] CLIA [id number] [address] [place] [address] Oxyhemoglobin (BldV) [Mass fraction] 95 % High 60-85 [facility] Comment on above: Order Comment: Speci men Type: BLOOD SPECIMEN Performed By: #### 5 7021-8 #### [facility] CLIA [id number] [address] [place] [address] pH (BldV) 7.34 [pH] Normal 7.32-7.42 [facility] Comment on above: Order Comment: Speci men Type: BLOOD SPECIMEN Performed By: #### 5 7021-8 #### [facility] CLIA [id number] [address] [place] [address] pH adjusted to patient's actual temperature (BldV) 7.35 Normal 7.32-7.42 [facility] Comment on above: Order Comment: Speci men Type: BLOOD SPECIMEN Performed By: #### 5 7021-8 #### [facility] CLIA [id number] [address] [place] [address] Potassium [Moles/Vol] 4.6 mmol/L Normal 3.5-5.0 [facility] Comment on above: Order Comment: Speci men Type: BLOOD SPECIMEN Performed By: #### 5 7021-8 #### [facility] CLIA [id number] [address] [place] [address] Sodium [Moles/Vol] 134 mmol/L Low 136-144 [facility] Comment on above: Order Comment: Speci men Type: BLOOD SPECIMEN Performed By: #### 5 7021-8 #### [facility] CLIA [id number] [address] [place] [id number] HGB A1Con 01-21-2021 Average glucose Estimated from glycated hemoglobin (Bld) [Mass/Vol] 197 mg/dL Normal [facility] Comment on above: Order Comment: Speci men Type: BLOOD SPECIMEN Result Comment: eAG: (Estimated average glucose) is a calculated value from HgbA1c and is account representative of the average blood glucose level in the last 2-3 month period. Performed By: #### 5 7021-8 #### [facility] CLIA [id number] [address] [place] [address] HbA1c (Bld) [Mass fraction] 8.5 % High 4.3-5.6 [facility] Comment on above: Order Comment: Speci men Type: BLOOD SPECIMEN Result Comment: Amer [place] Diabetes Association guidelines indicate that patients with HgbA1c in the range 5.7-6.4% are at increased risk for development of diabetes, and intervention by lifestyle modification may be beneficial. HgbA1c greater or equal to 6.5% is considered diagnostic of diabetes. Performed By: #### 5 7021-8 #### [facility] CLIA [id number] [address] [place] [id number] Magnesium SerPl-mCncon 01-21 Magnesium [Mass/Vol] 2.0 mg/dL Normal 1.7-2.3 [facility] Comment on above: Order Comment: Speci men Type: BLOOD SPECIMEN Performed By: #### 5 7021-8 #### [facility] CLIA [id number] [address] [place] [address] PROCALCITONIN (LAB)on 2020 Procalcitonin [Mass/Vol] 0.13 ng/mL High <0.09 [facility] Comment on above: Order Comment: Speci men Type: BLOOD SPECIMEN Result Comment: For a guided interpretation of test results, please visit the Change in Procalcitonin Calculator, [email or web address]. Performed By: #### P ROCAL #### [facility] CLIA [id number] [address] [place] [address] Phosphate SerPl-mCncon 01-21 Phosphate [Mass/Vol] 3.9 mg/dL Normal 2.7-4.8 [facility] Comment on above: Order Comment: Speci men Type: BLOOD SPECIMEN Performed By: #### 5 7021-8 #### [facility] CLIA [id number] [address] [place] [address] SARS-CoV-2 RNA Resp Ql NAMAN+p robeon 01-21-2021 SARS-CoV-2 (COVID-19) RNA NAMAN+probe Ql (Resp) COVID 19 RESULT: SARS-CoV-2 (Agent of COVID-19) Not Detected by PCR. This test has been authorized by FDA under an Emergency Use Authorization (EUA) Normal [facility] Comment on above: Performed By: #### 9 4500-6 ####[facility] [id number] [place] [id number] STAPH AUREUS PCRon 1 S. aureus and MRSA panel NAMAN+probe (Nose) Normal Negative [facility] Comment on above: Order Comment: Speci men Type: SWAB OF INTERNAL NOSE Result Comment: Nega tive for Staphylococcus aureus by PCR. Negative for MRSA by PCR Performed By: #### S APCR #### [facility] CLIA [id number] [address] [place] [address] HISTORY PHYSICALon 1 HISTORY PHYSICAL HNO ID: [id number] Author: Mikhail Vinson MD Service: Cardiovascular Medicine Author Type: Physician Type: HANDP Filed: 01/21/2021 11:36 AM Note Text: HISTORY AND PHYSICAL EXAMINATION SERVICE DATE: 01/20/2021 SERVICE TIME: 7:50 PM PRIMARY CARE PHYSICIAN: Reinaldo Paez MD Subjective CHIEF COMPLAINT: Chest Pain HPI: This is a 55 year old male with PMH of MDD, T2DM, HTN, COPD, NAFLD, Papillary Thyroid Carcinoma s/p Thyroidectomy --> Hypothyroidism presented [place] [facility] due to palpitations. Patient states he felt like his heart was beating slower than normal. Patient was recently admitted for acute CHF exacerbation, EF (60% 12/2020), and underwent cath. Patient received stent in mid LAD and treated w/ Lasix and metoprolol. Also was treated for AECOPD on steroids and breathing tx. During admission patient had runs of NSVT and was started on amio drip. Patient did not respond well to transition to oral amiodarone and was kept on drip. Patient transferred to [facility] under EP for possible ablation. Most recent outside hospital labs showed WBC 22.7, HgB 13.5, PLT 185, K 4.6, Na 133, CL 102, Mg 2.2, Glu 204, Cr 0.85, Pro-BNP 222, free T4 1.12, TSH 3.81, HDL 28, LDL 50, Total cholesterol 116. CXR obtained two days ago show findings consistent with CHF and left basilar atelectasis. Outside Echo (01/18/21) showed EF 60%, mild LA enlargement, mild focal aortic calcification, trivial TV/MV insufficiency. Upon evaluation patient states he is currently asymptomatic, denies chest pain, palpitations, SOB, dizziness, abdominal pain, fever, chills, nausea, emesis, constipation, diarrhea, dysuria. Currently labs electrolytes, CBC, CMP being obtained along with CXR. PAST MEDICAL HISTORY Diagnosis Date - Depression - DM (diabetes mellitus) (HCC) - HTN (hypertension) - Multinodular goiter 01/2015 - Papillary thyroid carcinoma (HCC) 01/2015 PAST SURGICAL HISTORY Procedure Laterality Date - ; THYROIDECTOMY TOTAL OR COMPLETE 04/2015 - KNEE LEFT OP SURGERY 1997 benign tumor - TONSILLECTOMY AND ADENOIDECTOMY HX 73 FAMILY HISTORY Problem Relation Age of Onset - Heart Father valve disease - Alcohol/Drug Father - Diabetes Father - Cancer Paternal Grandfather pancreatic, alcoholic - Prostate Cancer Paternal Grandfather - Hypertension Paternal Grandmother - Heart Paternal Grandmother - Colon Cancer Paternal Uncle - Heart Mother - Alcohol/Drug Mother - Diabetes Mother - Stroke Mother Social History Tobacco Use - Smoking status: Former Smoker Packs/day: 1.00 Years: 10.00 Pack years: 10.00 Types: Cigars Quit date: 09/07/2010 Years since quittin.3 - Smokeless tobacco: Never Used - Tobacco comment: occasionally Substance Use Topics - Alcohol use: No Comment: quit, hx of - Drug use: No lisinopril (PRINIVIL) 10 mg tablet, Take 1 tablet by mouth once daily., Disp: 30 tablet, Rfl: 3 metFORMIN (GLUCOPHAGE) 500 mg tablet, Take 2 tablets by mouth twice daily with meals., Disp: 120 tablet, Rfl: 3 collagenase (SANTYL) ointment, Apply 1 application to affected area once daily., Disp: 250 g, Rfl: 1 citalopram (CELEXA) 40 mg tablet, Take 0.5 tablets by mouth once daily., Disp: 30 tablet, Rfl: 5 Gauze Bandage 4 X 4 bndg, Apply 1 application to affected area once daily., Disp: 100 Each, Rfl: 1 sodium chloride (STERILE SALINE) 0.9 % IRRIGATION, Wet gauze pads liberally, cover ulcer., Disp: 500 mL, Rfl: 1 Gauze Bandage 3 X 75 bndg, Apply 1 application to affected area once daily., Disp: 10 Each, Rfl: 1 Adhesive Tape (PAPER TAPE) 1 X 10 -yard tape, Apply 1 application to affected area once daily., Disp: 1 Each, Rfl: 1 Non-Adherent Bandage (TELFA) 8 X 10 bndg, Apply 1 application to affected area once daily. 4 x 8 inch, Disp: 20 Each, Rfl: 1 levothyroxine (SYNTHROID) 300 mcg tablet, Take 1 tablet by mouth once daily., Disp: 30 tablet, Rfl: 3 albuterol HFA (PROAIR HFA) 90 mcg/actuation inhaler, Inhale 2 Puffs as instructed every 6 hours as needed for Wheezing/Shortness of Breath., Disp: 1 Inhaler, Rfl: 2 fluticasone-vilanterol (BREO ELLIPTA) 100-25 mcg/dose inhaler, Inhale 1 Inhalation as instructed once daily., Disp: 1 Each, Rfl: 3 buPROPion SR (ZYBAN SR; WELLBUTRIN SR) 150 mg 12 hr tablet, Take 1 tablet by mouth once daily., Disp: 30 tablet, Rfl: 3 simvastatin (ZOCOR) 80 mg tablet, Take 1 tablet by mouth daily at bedtime. (Patient not taking: Reported on 04/12/2019 ), Disp: 30 tablet, Rfl: 3 aspirin, enteric coated (ASPIRIN, ENTERIC COATED) 81 mg EC tablet, Take 1 tablet by mouth once daily. (Patient taking differently: Take 81 mg by mouth once daily. Taking prn ), Disp: 7 tablet, Rfl: 0 blood sugar diagnostic (FREESTYLE LITE STRIPS) test strip, Test blood sugar(s) 1 times daily. Dx: Type 2 diabetes E11.9., Disp: 50 Strip, Rfl: 11 Blood-Glucose Meter (FREESTYLE LITE METER) monitoring kit, Freestyle LITE Meter Kit - ( (more content not included)... Normal [facility] US-Echo Complete IMPORTon US-Echo Complete IMPORT Images were obtained outside of [facility] [id number] Normal [facility] OT-Chest 1 View (Portable) I MPORTon 01-18-2021 OT-Chest 1 View (Portable) IMPORT Images were obtained outside of [facility] [id number] Normal [facility] XA-Cardiac IMPORTon 01-19-20 XA-Cardiac IMPORT Images were obtained outside of [facility] [id number] Normal [facility] CNOVon 09-11-2018 CNOV Office Visit ([facility] ) ----- DERRELL HOYT ([id number]) 1965 M Date Time Provider Department 09/11/18 8:00 AM RABIA POE, (RE EXAMINER) [facility] During your visit today, we recorded the following information about you: Temperature Pulse Respiration Blood pressure 98.2 degrees 87/minute 18/minute 176/99 Rabia Poe APRN.RE EXAMINER 09/23/2018 5:07 AM Signed DATE VISIT: 09/11/2018 REASON FOR VISIT: Follow-up, right great toe and left lower leg wounds. HISTORY OF PRESENT ILLNESS: Derrell Hoyt is a 53 year old male who presents to the [facility] for further evaluation and management of non-healing wounds involving the left lower leg and right diabetic foot ulcer. PAST MEDICAL HISTORY Diagnosis Date - Depression - DM (diabetes mellitus) (HCC) - HTN (hypertension) - Multinodular goiter 01/2015 - Papillary thyroid carcinoma (HCC) 01/2015 PAST SURGICAL HISTORY Procedure Laterality Date - ; THYROIDECTOMY TOTAL OR COMPLETE 04/2015 - KNEE LEFT OP SURGERY 1998 benign tumor - TONSILLECTOMY AND ADENOIDECTOMY HX 73 MEDICATIONS: silver sulfADIAZINE (SILVADENE) 1 % cream Apply to bilateral legs as directed levothyroxine (SYNTHROID) 300 mcg tablet Take 1 tablet by mouth once daily. lisinopril (PRINIVIL) 10 mg tablet Take 1 tablet by mouth once daily. metFORMIN (GLUCOPHAGE) 500 mg tablet Take 2 tablets by mouth twice daily with meals. aspirin, enteric coated (ASPIRIN, ENTERIC COATED) 81 mg EC tablet Take 1 tablet by mouth once daily. Lancets (FREESTYLE LANCETS) lancets Test blood sugar(s) 2 times daily. Dx: DM 250.0 Insulin: No sulfamethoxazole-trimetho prim (BACTRIM DS) 800-160 mg per tablet Take 1 tablet by mouth twice daily. clotrimazole (LOTRIMIN, CLOTRIM) 1 % cream Apply to bilateral legs as directed zinc oxide 22 % crea Apply to bilateral legs as directed. lansoprazole orally disintegrating (PREVACID) 30 mg disintegrating tablet Take 1 tablet by mouth twice daily for 14 days. bismuth subsalicylate (PEPTO-BISMOL) 262 mg chew Take 1 tablet by mouth four times daily for 14 days. simvastatin (ZOCOR) 80 mg tablet Take 1 tablet by mouth daily at bedtime. buPROPion SR (ZYBAN SR; WELLBUTRIN SR) 150 mg 12 hr tablet Take 1 tablet by mouth once daily. citalopram (CELEXA) 40 mg tablet Take 1 tablet by mouth once daily. albuterol HFA (PROAIR HFA) 90 mcg/actuation inhaler Inhale 2 Puffs as instructed every 6 hours as needed for Wheezing/Shortness of Breath. blood sugar diagnostic (FREESTYLE LITE STRIPS) test strip Test blood sugar(s) 1 times daily. Dx: Type 2 diabetes E11.9. Blood-Glucose Meter (FREESTYLE LITE METER) monitoring kit Freestyle LITE Meter Kit - ALLERGIES No Known Allergies FAMILY HISTORY Problem Relation Age of Onset - Heart Father valve disease - Cancer Paternal Grandfather pancreatic, alcoholic - Alcohol/Drug Father - Hypertension Paternal Grandmother - Prostate Cancer Paternal Grandfather - Colon Cancer Paternal Uncle - Heart Mother - Heart Paternal Grandmother - Alcohol/Drug Mother Social History Tobacco Use - Smoking status: Former Smoker Packs/day: 1.00 Years: 10.00 Pack years: 10.00 Types: Cigars Last attempt to quit: 09/07/2010 Years since quittin.0 - Smokeless tobacco: Never Used - Tobacco comment: occasionally Substance Use Topics - Alcohol use: No Comment: quit, hx of - Drug use: No REVIEW OF SYSTEM: PAIN ASSESSMENT: Negative for pain, history of chronic pain, or current treatment for a chronic pain condition. GENERAL: No weight loss, malaise or fevers HEENT: Negative for frequent or significant headaches, No changes in hearing or vision, no nose bleeds or other nasal problems NECK: Negative for lumps, goiter, pain and significant neck swelling RESPIRATORY: Negative for cough, hemoptysis, wheezing, COPD, dyspnea or shortness of breath CARDIOVASCULAR: Negative for chest pain, leg swelling, hypertension, CHF or palpitations GI: No nausea, vomiting, or diarrhea : No history of dysuria, frequency or incontinence MUSCULOSKELETAL: Negative for joint pain or swelling, back pain or muscle pain SKIN: As per HPI. Negative for any other lesions, rash, and itching PSYCH: Negative for sleep disturbance, mood disorder and recent psychosocial stressors HEMATOLOGY/LYMPHOLOGY: Negative for prolonged bleeding, bruising easily or swollen nodes ENDOCRINE: Negative for cold or heat intolerance, polyuria, polydipsia and goiter NEURO: No history of headaches, syncope, paralysis, seizures or tremors 09/11/18 0759 09/11/18 0820 BP: 186/92 176/99 Pulse: 87 Resp: 18 Temp: 36.8 ?C (98.2 ?F) TempSrc: Temporal SpO2: 95% PHYSICAL EXAMINATION: Constitutional: Alert and in no acute distress. Well developed, well nourished. HEENT: Head and face normal. Sclera non-icteric, EOM intact, Normal nasal mucosa, septum, and turbinates: Normal oropharynx. Comments: Neck: Supple, no bruit, no masses, thyroid not enlarged. Comments: Chest: Lungs clear to auscultation, no accessory muscle use for respiration Comments: Heart: Regular rate/rhythm, normal S1,S2, no murmur, rubs or gallops Comments: Abdomen: Soft, non-tender, non-distended, + bowel sounds, no bruit, no organomegaly Comments: Extremities: No clubbing, no cyanosis of fingers. Lower extremities normal strength. Dorsalis pedis : Present (Y) Absent Diminished Doppler Posterior Tibialis: Present (Y) Absent Diminished Doppler Capillary Refill: < 3 sec. (Y) > 3 sec. ABIs: Right Left Rubor of Dependency: Negative (Y) Positive (N) [place] Examination: Leg/ankle Measurements Right Calf: 50.0 cm Right Ankle: 28.4 cm Left Calf: 49.0 cm Left Ankle: 29.5 cm Length : 51.0 cm Skin: Normal skin color and pigmentation, normal skin turgor, and no rash. See Wound Assessment . Neurologic: Cortical function: Normal. Comments: Psychiatric: Judgment and insight: Intact. Mood and affect: Normal. Comments: Lymphatic: No cervical lymphadenopathy. Comments: Most recent laboratory data: Hemoglobin A1C = ?? WBC , Hgb , Hct , PLT , Glu , BUN , Cr , Na , K , Cl , Albumin , Total protein WOUND ASSESSMENT: IMPRESSION: 1. Right diabetic foot ulcer, iqbal grade 2, stable with no evidence of active infection. 2. Partial thickness wound (stasis) of the left lower leg in the setting of chronic venous insufficiency with secondary lymphedema. 3. Multiple risk factors or co-morbidities that may contribute to wound healing difficulties include obesity, diabetes mellitus, hypertension, depression and obesity. TREATMENT PLAN: Debridement Type: Autolytic Enzymatic Mechanical Surgical Sharp (N) Other: ?? Wound Dressing: See Nursing Notes for details. . Local Tx: 1. Right first toe plantar surface: Closed 2. Left posterior calf: Closed Area cleaned with soap and water. Skin prep used to remove the zinc oxide. Soap and water used to wash the lower legs. Vitamin AANDD ointment liberally applied to both lower legs. 4 layer profore wraps applied bilateral. 1. Right first toe plantar surface: Wound remains healed. 2. Left posterior calf: Wound remains healed Legs washed with dial soap and water. Vaseline ointment liberally applied to both lower legs. Double layer F tubigrip applied bilaterally. DARELL WRAP/SurePress/Tubi-teacher associate: Foot is warm and pink before and after application. It was demonstrated to the patient how to check for adequate circulation. Patient voices understanding. If circulation becomes compromised by a change in color, increased pain, numbness or tingling to the area, the patient knows to remove the compression and elevate the leg above the heart. PLAN: Return to the wound center to see Latoya as needed Make appt to see your primary care doctor for control of diabetes. PVR and venous doppler studies to be scheduled (09/28/18). Patient is to follow up for regular foot care with Dr Salgado Please see your primary care doctor for your high blood pressure. Follow up with lymphedema clinic Elevate your legs Follow up with [facility] for diabetic shoes. Rx given. Rx: compression stockings Rabia Poe, KELIN.RE EXAMINER Charge Capture: [id number] Barbara Lorenzo MA, FAHEEM 09/11/2018 1:17 PM Addendum Nursing Note See provider note for wound description and measurements Dressing removed In the presence and direction of the provider wound care as written below: Pedal pulses doppled per provider: Consent captured per provider for debridement good until January 2019 for Latoya ____- States his problem started with a scratch to his LLE calf posterior . MHO DM , obesity,.HTN, H/O smoking but not current. BiLE edema . Lives with a room mate, is in jail. Thickened and scaling on BiLE 1. Right first toe plantar surface: Wound remains healed. 2. Left posterior calf: Wound remains healed Legs washed with dial soap and water. Vaseline ointment liberally applied to both lower legs. Double layer F tubigrip applied bilaterally. DARELL WRAP/SurePress/Tubi-teacher associate: Foot is warm and pink before and after application. It was demonstrated to the patient how to check for adequate circulation. Patient voices understanding. If circulation becomes compromised by a change in color, increased pain, numbness or tingling to the area, the patient knows to remove the compression and elevate the leg above the heart. Measurements: Right Calf: 47.5 cm Right Ankle: 27.5 cm Left Calf: 46.0 cm Left Ankle: 28.0 cm Length : 51.0 cm PLAN: Return to the wound center to see Latoya as needed Make appt to see your primary care doctor for control of diabetes to assist in healing wound. PVR and venous doppler studies to be scheduled. Patient is to follow up for regular foot care with Dr Salgado Please see your primary care doctor for your high blood pressure. Follow up with lymphedema [facility] Follow up with [facility] for diabetic shoes Rx: compression stockings Barbara Lorenzo MA, FAHEEM 09/11/2018 8:23 AM Signed WOUND CARE INSTRUCTIONS- Derrell Hoyt Wound location: Right great toe and lower legs Wear compression DAILY Moisturize legs DAILY To give your wound the best chance to heal: - Eat three balanced meals daily focusing on the protein - Control swelling by elevating the extremity above your heart - exercise the extremity - Control your blood sugar. Keep blood sugar less than 200 - Complete your wound care instructions - Vitamin C 500 mg twice daily - Multiple Vitamin Daily - Drink a protein shake daily: Premier ochoa Report any of the following changes to the Wound Center at [phone] or go to the Emergency Department:? Fever or chills ? Increased drainage ? Green or yellow drainage ? Foul odor ? Increased pain ? Hardness around the wound ? Redness, warmth or swelling of the surrounding tissue ? Color change to the wound PLAN: Return to the wound center to see Latoya as needed Make appt to see your primary care doctor for control of diabetes to assist in healing wound. Patient is to follow up for regular foot care with Dr Salgado Please see your primary care doctor for your high blood pressure. Follow up with lymphedema clinic [facility] Follow up with [facility] for diabetic shoes or custom made shoe insert Measurements: Right Calf: 47.5 cm Right Ankle: 27.5 cm Left Calf: 46.0 cm Left Ankle: 28.0 cm Length : 51.0 cm Rabia Poe/ Referring Provider: LUKAS PEREZ [[id number]] Allergies As of Date: 09/11/2018 (No Known Allergies) Date Reviewed: 09/11/2018 Reviewed by: Barbara Ramsey) FAHEEM Lorenzo - Fully Assessed Reason for Visit: Wound Check [133] Cmt: bilateral lower legs Primary Visit Diagnosis:Non-pressure chronic ulcer of left lower leg, limited to breakdown of skin (HCC) [L97.921] Other Visit Diagnoses:Diabetic ulcer of toe of right foot associated with type 2 diabetes mellitus, with necrosis of muscle (HCC) [E11.621, L97.513] Stasis edema of both lower extremities [I87.303] Lymphedema of both lower extremities [I89.0] Prescriptions as of 09/11/2018 Sig: SULFAMETHOXAZOLE 800 MG-TRIME* Take 1 tablet by mouth twice * SILVER SULFADIAZINE 1 % TOPIC* Apply to bilateral legs as di* LEVOTHYROXINE 300 MCG TABLET Take 1 tablet by mouth once d* LISINOPRIL 10 MG TABLET Take 1 tablet by mouth once d* METFORMIN 500 MG TABLET Take 2 tablets by mouth twice* ASPIRIN 81 MG TABLET,DELAYED * Take 1 tablet by mouth once d* CLOTRIMAZOLE 1 % TOPICAL CREAM Apply to bilateral legs as di* Patient not taking: Reported on 08/25/2018 ZINC OXIDE 22 % TOPICAL CREAM Apply to bilateral legs as di* Patient not taking: Reported on 08/25/2018 LANSOPRAZOLE 30 MG DELAYED RE* Take 1 tablet by mouth twice * BISMUTH SUBSALICYLATE 262 MG * Take 1 tablet by mouth four t* SIMVASTATIN 80 MG TABLET Take 1 tablet by mouth daily * Patient not taking: Reported on 08/25/2018 BUPROPION HCL SR 150 MG TABLE* Take 1 tablet by mouth once d* Patient not taking: Reported on 08/25/2018 CITALOPRAM 40 MG TABLET Take 1 tablet by mouth once d* Patient not taking: Reported on 08/25/2018 ALBUTEROL SULFATE HFA 90 MCG/* Inhale 2 Puffs as instructed * Patient not taking: Reported on 08/20/2018 BLOOD SUGAR DIAGNOSTIC STRIPS Test blood sugar(s) 1 times d* Patient not taking: Reported on 08/25/2018 BLOOD-GLUCOSE METER KIT Freestyle LITE Meter Kit - Patient taking differently: 1 Each three times daily. Pierre* LANCETS Test blood sugar(s) 2 times d* Patient taking differently: 1 Each three times daily. Dx:* Problem List As Of Date 09/11/2018 Noted Resolved Hypertension [I10] INVALID FOR* Low HDL (under 40) [E78.6] INVALID FOR* Hyperglycemia [R73.9] INVALID FOR*01/17/2016 Diabetes mellitus type 2 in obese [E11.69, E66.*INVALID FOR* Goiter, nontoxic, multinodular [E04.2] INVALID FOR* Papillary thyroid carcinoma (HCC) [C73] INVALID FOR* Obesity, Class III, BMI 40-49.9 (morbid obesity*INVALID FOR* Other instructions from your clinician: WOUND CARE INSTRUCTIONS- Derrell Hoyt Wound location: Right great toe and lower legs Wear compression DAILY Moisturize legs DAILY To give your wound the best chance to heal: - Eat three balanced meals daily focusing on the protein - Control swelling by elevating the extremity above your heart - exercise the extremity - Control your blood sugar. Keep blood sugar less than 200 - Complete your wound care instructions - Vitamin C 500 mg twice daily - Multiple Vitamin Daily - Drink a protein shake daily: Premier ochoa Report any of the following changes to the Wound Center at [phone] or go to the Emergency Department:? Fever or chills ? Increased drainage ? Green or yellow drainage ? Foul odor ? Increased pain ? Hardness around the wound ? Redness, warmth or swelling of the surrounding tissue ? Color change to the wound PLAN: Return to the wound center to see Latoya as needed Make appt to see your primary care doctor for control of diabetes to assist in healing wound. Patient is to follow up for regular foot care with Dr Salgado Please see your primary care doctor for your high blood pressure. Follow up with lymphedema clinic [facility] Follow up with [facility] for diabetic shoes or custom made shoe insert Measurements: Right Calf: 47.5 cm Right Ankle: 27.5 cm Left Calf: 46.0 cm Left Ankle: 28.0 cm Length : 51.0 cm Rabia Poe/[facility] Visit Notes: >> Barbara (Faheem) FAHEEM Lorenzo FriSep 11, 2018 8:21 AM Status: Addendum Nursing Note See provider note for wound description and measurements Dressing removed In the presence and direction of the provider wound care as written below: Pedal pulses doppled per provider: Consent captured per provider for debridement good until January 2019 for Latoya States his problem started with a scratch to his LLE calf posterior . MHO DM , obesity,.HTN, H/O smoking but not current. BiLE edema . Lives with a room mate, is in jail. Thickened and scaling on BiLE 1. Right first toe plantar surface: Wound remains healed. 2. Left posterior calf: Wound remains healed Legs washed with dial soap and water. Vaseline ointment liberally applied to both lower legs. Double layer F tubigrip applied bilaterally. DARELL WRAP/SurePress/Tubi-teacher associate: Foot is warm and pink before and after application. It was demonstrated to the patient how to check for adequate circulation. Patient voices understanding. If circulation becomes compromised by a change in color, increased pain, numbness or tingling to the area, the patient knows to remove the compression and elevate the leg above the heart. Measurements: Right Calf: 47.5 cm Right Ankle: 27.5 cm Left Calf: 46.0 cm Left Ankle: 28.0 cm Length : 51.0 cm PLAN: Return to the wound center to see Latoya as needed Make appt to see your primary care doctor for control of diabetes to assist in healing wound. PVR and venous doppler studies to be scheduled. Patient is to follow up for regular foot care with Dr Salgado Please see your primary care doctor for your high blood pressure. Follow up with lymphedema clinic [facility] Follow up with [facility] for diabetic shoes Rx: compression stockings Encounter Status:Closed by RABIA POE on 09/23/18 [facility] PROGRESSon 09-11-2018 Protein mass conc HNO ID: [id number] Author: Rabia Soto (Emergency Communications Dispatcher) Consuelo Service: ? Author Type: Nurse Practitioner Type: Progress Notes Filed: 09/23/2018 5:07 AM Note Text: DATE VISIT: 09/11/2018 REASON FOR VISIT: Follow-up, right great toe and left lower leg wounds. HISTORY OF PRESENT ILLNESS: Derrell Hoyt is a 53 year old male who presents to the [facility] for further evaluation and management of non-healing wounds involving the left lower leg and right diabetic foot ulcer. PAST MEDICAL HISTORY Diagnosis Date - Depression - DM (diabetes mellitus) (HCC) - HTN (hypertension) - Multinodular goiter 01/2015 - Papillary thyroid carcinoma (HCC) 01/2015 PAST SURGICAL HISTORY Procedure Laterality Date - ; THYROIDECTOMY TOTAL OR COMPLETE 04/2015 - KNEE LEFT OP SURGERY 1998 benign tumor - TONSILLECTOMY AND ADENOIDECTOMY HX 73 MEDICATIONS: silver sulfADIAZINE (SILVADENE) 1 % cream Apply to bilateral legs as directed levothyroxine (SYNTHROID) 300 mcg tablet Take 1 tablet by mouth once daily. lisinopril (PRINIVIL) 10 mg tablet Take 1 tablet by mouth once daily. metFORMIN (GLUCOPHAGE) 500 mg tablet Take 2 tablets by mouth twice daily with meals. aspirin, enteric coated (ASPIRIN, ENTERIC COATED) 81 mg EC tablet Take 1 tablet by mouth once daily. Lancets (FREESTYLE LANCETS) lancets Test blood sugar(s) 2 times daily. Dx: DM 250.0 Insulin: No sulfamethoxazole-trimetho prim (BACTRIM DS) 800-160 mg per tablet Take 1 tablet by mouth twice daily. clotrimazole (LOTRIMIN, CLOTRIM) 1 % cream Apply to bilateral legs as directed zinc oxide 22 % crea Apply to bilateral legs as directed. lansoprazole orally disintegrating (PREVACID) 30 mg disintegrating tablet Take 1 tablet by mouth twice daily for 14 days. bismuth subsalicylate (PEPTO-BISMOL) 262 mg chew Take 1 tablet by mouth four times daily for 14 days. simvastatin (ZOCOR) 80 mg tablet Take 1 tablet by mouth daily at bedtime. buPROPion SR (ZYBAN SR; WELLBUTRIN SR) 150 mg 12 hr tablet Take 1 tablet by mouth once daily. citalopram (CELEXA) 40 mg tablet Take 1 tablet by mouth once daily. albuterol HFA (PROAIR HFA) 90 mcg/actuation inhaler Inhale 2 Puffs as instructed every 6 hours as needed for Wheezing/Shortness of Breath. blood sugar diagnostic (FREESTYLE LITE STRIPS) test strip Test blood sugar(s) 1 times daily. Dx: Type 2 diabetes E11.9. Blood-Glucose Meter (FREESTYLE LITE METER) monitoring kit Freestyle LITE Meter Kit - ALLERGIES No Known Allergies FAMILY HISTORY Problem Relation Age of Onset - Heart Father valve disease - Cancer Paternal Grandfather pancreatic, alcoholic - Alcohol/Drug Father - Hypertension Paternal Grandmother - Prostate Cancer Paternal Grandfather - Colon Cancer Paternal Uncle - Heart Mother - Heart Paternal Grandmother - Alcohol/Drug Mother Social History Tobacco Use - Smoking status: Former Smoker Packs/day: 1.00 Years: 10.00 Pack years: 10.00 Types: Cigars Last attempt to quit: 09/07/2010 Years since quittin.0 - Smokeless tobacco: Never Used - Tobacco comment: occasionally Substance Use Topics - Alcohol use: No Comment: quit, hx of - Drug use: No REVIEW OF SYSTEM: PAIN ASSESSMENT: Negative for pain, history of chronic pain, or current treatment for a chronic pain condition. GENERAL: No weight loss, malaise or fevers HEENT: Negative for frequent or significant headaches, No changes in hearing or vision, no nose bleeds or other nasal problems NECK: Negative for lumps, goiter, pain and significant neck swelling RESPIRATORY: Negative for cough, hemoptysis, wheezing, COPD, dyspnea or shortness of breath CARDIOVASCULAR: Negative for chest pain, leg swelling, hypertension, CHF or palpitations GI: No nausea, vomiting, or diarrhea : No history of dysuria, frequency or incontinence MUSCULOSKELETAL: Negative for joint pain or swelling, back pain or muscle pain SKIN: As per HPI. Negative for any other lesions, rash, and itching PSYCH: Negative for sleep disturbance, mood disorder and recent psychosocial stressors HEMATOLOGY/LYMPHOLOGY: Negative for prolonged bleeding, bruising easily or swollen nodes ENDOCRINE: Negative for cold or heat intolerance, polyuria, polydipsia and goiter NEURO: No history of headaches, syncope, paralysis, seizures or tremors 09/11/18 0759 09/11/18 0820 BP: 186/92 176/99 Pulse: 87 Resp: 18 Temp: 36.8 ?C (98.2 ?F) TempSrc: Temporal SpO2: 95% PHYSICAL EXAMINATION: Constitutional: Alert and in no acute distress. Well developed, well nourished. HEENT: Head and face normal. Sclera non-icteric, EOM intact, Normal nasal mucosa, septum, and turbinates: Normal oropharynx. Comments: Neck: Supple, no bruit, no masses, thyroid not enlarged. Comments: Chest: Lungs clear to auscultation, no accessory muscle use for respiration Comments: Heart: Regular rate/rhythm, normal S1,S2, no murmur, rubs or gallops Comments: Abdomen: Soft, non-tender, non-distended, + bowel sounds, no bruit, no organomegaly Comments: Extremities: No clubbing, no cyanosis of fingers. Lower extremities normal strength. Dorsalis pedis : Present (Y) Absent Diminished Doppler Posterior Tibialis: Present (Y) Absent Diminished Doppler Capillary Refill: < 3 sec. (Y) > 3 sec. ABIs: Right Left Rubor of Dependency: Negative (Y) Positive (N) [employer] Examination: Leg/ankle Measurements Right Calf: 50.0 cm Right Ankle: 28.4 cm Left Calf: 49.0 cm Left Ankle: 29.5 cm Length : 51.0 cm Skin: Normal skin color and pigmentation, normal skin turgor, and no rash. See Wound Assessment . Neurologic: Cortical function: Normal. Comments: Psychiatric: Judgment and insight: Intact. Mood and affect: Normal. Comments: Lymphatic: No cervical lymphadenopathy. Comments: Most recent laboratory data: Hemoglobin A1C = ?? WBC , Hgb , Hct , PLT , Glu , BUN , Cr , Na , K , Cl , Albumin , Total protein WOUND ASSESSMENT: IMPRESSION: 1. Right diabetic foot ulcer, iqbal grade 2, stable with no evidence of active infection. 2. Partial thickness wound (stasis) of the left lower leg in the setting of chronic venous insufficiency with secondary lymphedema. 3. Multiple risk factors or co-morbidities that may contribute to wound healing difficulties include obesity, diabetes mellitus, hypertension, depression and obesity. TREATMENT PLAN: Debridement Type: Autolytic Enzymatic Mechanical Surgical Sharp (N) Other: ?? Wound Dressing: See Nursing Notes for details. . Local Tx: 1. Right first toe plantar surface: Closed 2. Left posterior calf: Closed Area cleaned with soap and water. Skin prep used to remove the zinc oxide. Soap and water used to wash the lower legs. Vitamin AANDD ointment liberally applied to both lower legs. 4 layer profore wraps applied bilateral. 1. Right first toe plantar surface: Wound remains healed. 2. Left posterior calf: Wound remains healed Legs washed with dial soap and water. Vaseline ointment liberally applied to both lower legs. Double layer F tubigrip applied bilaterally. DARELL WRAP/SurePress/Tubi-teacher associate: Foot is warm and pink before and after application. It was demonstrated to the patient how to check for adequate circulation. Patient voices understanding. If circulation becomes compromised by a change in color, increased pain, numbness or tingling to the area, the patient knows to remove the compression and elevate the leg above the heart. PLAN: Return to the wound center to see Latoya as needed Make appt to see your primary care doctor for control of diabetes. PVR and venous doppler studies to be scheduled (09/28/18). Patient is to follow up for regular foot care with Dr Salgado Please see your primary care doctor for your high blood pressure. Follow up with lymphedema clinic [facility] Follow up with [facility] for diabetic shoes. Rx given. Rx: compression stockings Rabia Poe, KELIN.RE EXAMINER Charge Capture: [id number] [facility] 09-04-2018 [facility] Office Visit ([facility] ) ----- DERRELL HOYT ([id number]) 1965 M Date Time Provider Department 09/04/18 2:45 PM RABIA POE, (RE EXAMINER) [facility] During your visit today, we recorded the following information about you: Temperature Pulse Respiration Blood pressure 98.6 degrees 88/minute 20/minute 187/88 Barbara Lorenzo MA, FAHEEM 09/04/2018 2:37 PM Signed WOUND CENTER HYPERBARIC OXYGEN THERAPY SCREENING 1. Is the patient diabetic? (If No, skip to question 5) Yes 2. Does the patient have a lower extremity wound? Yes 3. Is there exposed/involved tendon or bone? No 4. Has the wound been present for 30 days? Yes If Yes to ALL questions above, consult the Hyperbaric Center 5. Has the patient been diagnosed with osteomyelitis? No 6. Has the patient had a previous skin graft or flap at the wound? No 7. Has the patient had or been offered vascular intervention/evaluation? No 8. Does the patient have a wound at an amputation site? No 9. Has the patient had radiation therapy at the site of the problem? No If Yes to ANY of questions 5-9, consult the Hyperbaric Center Yasemin Inman, RN, RN 09/04/2018 2:48 PM Signed Nursing Note See provider note for wound description and measurements Dressing removed In the presence and direction of the provider wound care as written below: Pedal pulses doppled per provider: Consent captured per provider for debridement good until January 2019 for Latoya ____- States his problem started with a scratch to his LLE calf posterior . MHO DM , obesity,.HTN, H/O smoking but not current. BiLE edema . Lives with a room mate, is in jail. Thickened and scaling on BiLE 1. Right first toe plantar surface: Wound remains healed. 2. Left posterior calf: Wound remains healed Skin prep used to remove the zinc oxide. Soap and water used to wash the lower legs. Vaseline ointment liberally applied to both lower legs. 4 layer profore wraps applied bilateral. Profore Multiple layer Application: A 4- layer system applied to the bilateral lower extremities. A layer of cast padding, crepe bandage, light compression bandage, followed with a layer of coban and stockinet from behind the toes to 1 below the knee. Toes were warm and pink before and post application. + dorsal pedis pulse on palpation. It was demonstrated to the patient how to check for adequate circulation. If the patient exhibits a change in color to the extremity: change in temperature, increased pain, or the compression wrap becomes wet or to tight, the patient has been instructed to remove the wrap or go to the Emergency Department. Patient voices understanding with intent to comply. Measurements: Right Calf: 49.5 cm Right Ankle: 27.5 cm Left Calf: 46.0 cm Left Ankle: 30.0 cm Length : 51.0 cm PLAN: Return to the wound center to see Latoya in one week Make appt to see your primary care doctor for control of diabetes to assist in healing wound. PVR and venous doppler studies to be scheduled. 09/10/09 Patient is to follow up for regular foot care with Dr Salgado Please see your primary care doctor for your high blood pressure. Follow up with lymphedema clinic Ele[facility] your legs Follow up with [facility] for diabetic shoes CHIRAG Luong, KELIN.RE EXAMINER 09/14/2018 10:40 AM Signed DATE VISIT: REASON FOR VISIT: Non-healing wounds of the right great toe and left lower leg. HISTORY OF PRESENT ILLNESS: Derrell Hoyt is a 53 year old male who presents to the [facility] for further evaluation and management of non-healing wounds involving the left lower leg and right diabetic foot ulcer. PAST MEDICAL HISTORY Diagnosis Date - Depression - DM (diabetes mellitus) (HCC) - HTN (hypertension) - Multinodular goiter 01/2015 - Papillary thyroid carcinoma (HCC) 01/2015 PAST SURGICAL HISTORY Procedure Laterality Date - ; THYROIDECTOMY TOTAL OR COMPLETE 04/2015 - KNEE LEFT OP SURGERY 1998 benign tumor - TONSILLECTOMY AND ADENOIDECTOMY HX 73 MEDICATIONS: silver sulfADIAZINE (SILVADENE) 1 % cream Apply to bilateral legs as directed levothyroxine (SYNTHROID) 300 mcg tablet Take 1 tablet by mouth once daily. lisinopril (PRINIVIL) 10 mg tablet Take 1 tablet by mouth once daily. metFORMIN (GLUCOPHAGE) 500 mg tablet Take 2 tablets by mouth twice daily with meals. aspirin, enteric coated (ASPIRIN, ENTERIC COATED) 81 mg EC tablet Take 1 tablet by mouth once daily. Lancets (FREESTYLE LANCETS) lancets Test blood sugar(s) 2 times daily. Dx: DM 250.0 Insulin: No sulfamethoxazole-trimetho prim (BACTRIM DS) 800-160 mg per tablet Take 1 tablet by mouth twice daily. clotrimazole (LOTRIMIN, CLOTRIM) 1 % cream Apply to bilateral legs as directed zinc oxide 22 % crea Apply to bilateral legs as directed. lansoprazole orally disintegrating (PREVACID) 30 mg disintegrating tablet Take 1 tablet by mouth twice daily for 14 days. bismuth subsalicylate (PEPTO-BISMOL) 262 mg chew Take 1 tablet by mouth four times daily for 14 days. simvastatin (ZOCOR) 80 mg tablet Take 1 tablet by mouth daily at bedtime. buPROPion SR (ZYBAN SR; WELLBUTRIN SR) 150 mg 12 hr tablet Take 1 tablet by mouth once daily. citalopram (CELEXA) 40 mg tablet Take 1 tablet by mouth once daily. albuterol HFA (PROAIR HFA) 90 mcg/actuation inhaler Inhale 2 Puffs as instructed every 6 hours as needed for Wheezing/Shortness of Breath. blood sugar diagnostic (FREESTYLE LITE STRIPS) test strip Test blood sugar(s) 1 times daily. Dx: Type 2 diabetes E11.9. Blood-Glucose Meter (FREESTYLE LITE METER) monitoring kit Freestyle LITE Meter Kit - ALLERGIES No Known Allergies FAMILY HISTORY Problem Relation Age of Onset - Heart Father valve disease - Cancer Paternal Grandfather pancreatic, alcoholic - Alcohol/Drug Father - Hypertension Paternal Grandmother - Prostate Cancer Paternal Grandfather - Colon Cancer Paternal Uncle - Heart Mother - Heart Paternal Grandmother - Alcohol/Drug Mother Social History Tobacco Use - Smoking status: Former Smoker Packs/day: 1.00 Years: 10.00 Pack years: 10.00 Types: Cigars Last attempt to quit: 09/07/2010 Years since quittin.0 - Smokeless tobacco: Never Used - Tobacco comment: occasionally Substance Use Topics - Alcohol use: No Comment: quit, hx of - Drug use: No REVIEW OF SYSTEM: PAIN ASSESSMENT: Negative for pain, history of chronic pain, or current treatment for a chronic pain condition. GENERAL: No weight loss, malaise or fevers HEENT: Negative for frequent or significant headaches, No changes in hearing or vision, no nose bleeds or other nasal problems NECK: Negative for lumps, goiter, pain and significant neck swelling RESPIRATORY: Negative for cough, hemoptysis, wheezing, COPD, dyspnea or shortness of breath CARDIOVASCULAR: Negative for chest pain, leg swelling, hypertension, CHF or palpitations GI: No nausea, vomiting, or diarrhea : No history of dysuria, frequency or incontinence MUSCULOSKELETAL: Negative for joint pain or swelling, back pain or muscle pain SKIN: As per HPI. Negative for any other lesions, rash, and itching PSYCH: Negative for sleep disturbance, mood disorder and recent psychosocial stressors HEMATOLOGY/LYMPHOLOGY: Negative for prolonged bleeding, bruising easily or swollen nodes ENDOCRINE: Negative for cold or heat intolerance, polyuria, polydipsia and goiter NEURO: No history of headaches, syncope, paralysis, seizures or tremors 09/04/18 1452 09/04/18 1453 BP: (!) 208/102 187/88 Pulse: 88 Resp: 20 Temp: 37 ?C (98.6 ?F) TempSrc: Oral SpO2: 94% PHYSICAL EXAMINATION: Constitutional: Alert and in no acute distress. Well developed, well nourished. HEENT: Head and face normal. Sclera non-icteric, EOM intact, Normal nasal mucosa, septum, and turbinates: Normal oropharynx. Comments: Neck: Supple, no bruit, no masses, thyroid not enlarged. Comments: Chest: Lungs clear to auscultation, no accessory muscle use for respiration Comments: Heart: Regular rate/rhythm, normal S1,S2, no murmur, rubs or gallops Comments: Abdomen: Soft, non-tender, non-distended, + bowel sounds, no bruit, no organomegaly Comments: Extremities: No clubbing, no cyanosis of fingers. Lower extremities normal strength. Dorsalis pedis : Present (Y) Absent Diminished Doppler Posterior Tibialis: Present (Y) Absent Diminished Doppler Capillary Refill: < 3 sec. (Y) > 3 sec. ABIs: Right Left Rubor of Dependency: Negative (Y) Positive (N) [facility] Examination: Leg/ankle Measurements Right Calf: 50.0 cm Right Ankle: 28.4 cm Left Calf: 49.0 cm Left Ankle: 29.5 cm Length : 51.0 cm Skin: Normal skin color and pigmentation, normal skin turgor, and no rash. See Wound Assessment . Neurologic: Cortical function: Normal. Comments: Psychiatric: Judgment and insight: Intact. Mood and affect: Normal. Comments: Lymphatic: No cervical lymphadenopathy. Comments: Most recent laboratory data: Hemoglobin A1C = ?? WBC , Hgb , Hct , PLT , Glu , BUN , Cr , Na , K , Cl , Albumin , Total protein WOUND ASSESSMENT: IMPRESSION: 1. Right diabetic foot ulcer, iqbal grade 2, stable with no evidence of active infection. 2. Partial thickness wound (stasis) of the left lower leg in the setting of chronic venous insufficiency with secondary lymphedema. 3. Multiple risk factors or co-morbidities that may contribute to wound healing difficulties include obesity, diabetes mellitus, hypertension, depression and obesity. TREATMENT PLAN: Debridement Type: Autolytic Enzymatic Mechanical Surgical Sharp (N) Other: ?? Wound Dressing: See Nursing Notes for details. . Local Tx: 1. Right first toe plantar surface: Closed 2. Left posterior calf: Closed Area cleaned with soap and water. Skin prep used to remove the zinc oxide. Soap and water used to wash the lower legs. Vitamin AANDD ointment liberally applied to both lower legs. 4 layer profore wraps applied bilateral. Profore Multiple layer Application: A 4- layer system applied to the bilateral lower extremities. A layer of cast padding, crepe bandage, light compression bandage, followed with a layer of coban and stockinet from behind the toes to 1 below the knee. Toes were warm and pink before and post application. + dorsal pedis pulse on palpation. It was demonstrated to the patient how to check for adequate circulation. If the patient exhibits a change in color to the extremity: change in temperature, increased pain, or the compression wrap becomes wet or to tight, the patient has been instructed to remove the wrap or go to the Emergency Department. Patient voices understanding with intent to comply. Rx: Doxycycline and Bactrim Nutritional Support: MVI, Zinc Supplement and Protein Supplement Patient is instructed to continue a healthy, well-balanced diet for nutritional support for optimal healing. Protein is the most important nutrient for wound healing. Eating adequate amounts of protein allows the body to create new cells and chemicals to heal the wound, and increases the body?s ability to fight infection. Eating high protein foods daily is recommended such as: lean meats, fish, poultry, cheese, milk, yogurt, eggs and legumes. Vitamins and minerals provide a full range of nutrients for wound healing. It can help jump start the body's production of cells and chemicals needed for healing. Vitamins and minerals can be obtained through healthy foods in your diet and by taking a multiple vitamin supplement. Vitamin C is essential for collagen synthesis. Collagen and fibroblasts compose the basis for the structure of a new wound bed. Also, a deficiency of Vitamin C prolongs the healing time and contributes to reduced resistance to infection. Laboratory: Wound cultures (aerobic, anaerobic and fungal) collected 08/20/18 positive for Strep agalactoae group B, Proteus mirabilis, MRSA. Wound cultures are collected to assess level of bacterial bio-burden. Excessive bio-burden can result in inflammatory and proliferative phase stagnation as well as compromise of normal wound healing physiology. Bacterial proliferation, biofilm production, critical colonization and the development of resistant organism can lead to wound infection, wound deterioration and devastating tissue loss. Knowing the organism that populated the wound can help direct therapy, particularly anti-microbial dressing choices. Diagnostics: We will obtain PVRs of bilateral lower extremity to determine amount of compression that can be safely applied to the patient. Also, venous doppler study to evaluate for thermostat mechanic incompetence. Follow-up is scheduled in 1 week, sooner with any concerns or worsening symptoms. - See patient instructions for further recommendations. - Pt education along with discharge instructions given to patient - Discussed Red Flag signs and when to go to ER. - Pt agreeable with plan and verbalize understanding. Rabia Poe, FABRIC WORKER SUPERVISOR.RE EXAMINER Charge Capture: [id number] Yasemin Inman, RN, RN 09/04/2018 2:48 PM Signed WOUND CARE INSTRUCTIONS- Derrell Hoyt Wound location: Right great toe and lower legs Leave leg wraps in place clean and dry until return to wound center If your leg wraps become uncomfortable - please elevate your legs above your heart. If it continues, please remove wraps and call us. To give your wound the best chance to heal: - Eat three balanced meals daily focusing on the protein - Control swelling by elevating the extremity above your heart - exercise the extremity - Control your blood sugar. Keep blood sugar less than 200 - Complete your wound care instructions - Vitamin C 500 mg twice daily - Multiple Vitamin Daily - Drink a protein shake daily: Premier ochoa Report any of the following changes to the Wound Center at [phone] or go to the Emergency Department:? Fever or chills ? Increased drainage ? Green or yellow drainage ? Foul odor ? Increased pain ? Hardness around the wound ? Redness, warmth or swelling of the surrounding tissue ? Color change to the wound PLAN: Return to the wound center to see Latoya in one week Make appt to see your primary care doctor for control of diabetes to assist in healing wound. PVR and venous doppler studies to be scheduled. 09/10/09 Patient is to follow up for regular foot care with Dr Salgado Please see your primary care doctor for your high blood pressure. 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 mellitus, with necrosis of muscle (HCC) [E11.621, L97.513] Stasis edema of both lower extremities [I87.303] Lymphedema of both lower extremities [I89.0] Prescriptions as of 09/04/2018 Sig: SULFAMETHOXAZOLE 800 MG-TRIME* Take 1 tablet by mouth twice * DOXYCYCLINE MONOHYDRATE 100 M* Take 1 capsule by mouth twice* DOXYCYCLINE MONOHYDRATE 100 M* Take 1 capsule by mouth twice* SILVER SULFADIAZINE 1 % TOPIC* Apply to bilateral legs as di* LEVOTHYROXINE 300 MCG TABLET Take 1 tablet by mouth once d* LISINOPRIL 10 MG TABLET Take 1 tablet by mouth once d* METFORMIN 500 MG TABLET Take 2 tablets by mouth twice* ASPIRIN 81 MG TABLET,DELAYED * Take 1 tablet by mouth once d* CLOTRIMAZOLE 1 % TOPICAL CREAM Apply to bilateral legs as di* Patient not taking: Reported on 08/25/2018 ZINC OXIDE 22 % TOPICAL CREAM Apply to bilateral legs as di* Patient not taking: Reported on 08/25/2018 LANSOPRAZOLE 30 MG DELAYED RE* Take 1 tablet by mouth twice * BISMUTH SUBSALICYLATE 262 MG * Take 1 tablet by mouth four t* SIMVASTATIN 80 MG TABLET Take 1 tablet by mouth daily * Patient not taking: Reported on 08/25/2018 BUPROPION HCL SR 150 MG TABLE* Take 1 tablet by mouth once d* Patient not taking: Reported on 08/25/2018 CITALOPRAM 40 MG TABLET Take 1 tablet by mouth once d* Patient not taking: Reported on 08/25/2018 ALBUTEROL SULFATE HFA 90 MCG/* Inhale 2 Puffs as instructed * Patient not taking: Reported on 08/20/2018 BLOOD SUGAR DIAGNOSTIC STRIPS Test blood sugar(s) 1 times d* Patient not taking: Reported on 08/25/2018 BLOOD-GLUCOSE METER KIT Freestyle LITE Meter Kit - Patient taking differently: 1 Each three times daily. Pierre* LANCETS Test blood sugar(s) 2 times d* Patient taking differently: 1 Each three times daily. Dx:* Problem List As Of Date 09/04/2018 Noted Resolved Hypertension [I10] INVALID FOR* Low HDL (under 40) [E78.6] INVALID FOR* Hyperglycemia [R73.9] INVALID FOR*01/17/2016 Diabetes mellitus type 2 in obese [E11.69, E66.*INVALID FOR* Goiter, nontoxic, multinodular [E04.2] INVALID FOR* Papillary thyroid carcinoma (HCC) [C73] INVALID FOR* Obesity, Class III, BMI 40-49.9 (morbid obesity*INVALID FOR* Other instructions from your clinician: WOUND CARE INSTRUCTIONS- Derrell Hoyt Wound location: Right great toe and lower legs Leave leg wraps in place clean and dry until return to wound center If your leg wraps become uncomfortable - please elevate your legs above your heart. If it continues, please remove wraps and call us. To give your wound the best chance to heal: - Eat three balanced meals daily focusing on the protein - Control swelling by elevating the extremity above your heart - exercise the extremity - Control your blood sugar. Keep blood sugar less than 200 - Complete your wound care instructions - Vitamin C 500 mg twice daily - Multiple Vitamin Daily - Drink a protein shake daily: Premier ochoa Report any of the following changes to the Wound Center at [phone] or go to the Emergency Department:? Fever or chills ? Increased drainage ? Green or yellow drainage ? Foul odor ? Increased pain ? Hardness around the wound ? Redness, warmth or swelling of the surrounding tissue ? Color change to the wound PLAN: Return to the wound center to see Latoya in one week Make appt to see your primary care doctor for control of diabetes to assist in healing wound. PVR and venous doppler studies to be scheduled. 09/10/09 Patient is to follow up for regular foot care with Dr Salgado Please see your primary care doctor for your high blood pressure. Follow up with lymphedema clinic Elevate your legs Follow up with [facility] for diabetic shoes or custom made shoe insert Rabia Poe/veronika Visit Notes: >> Barbara Lorenzo MA FriSep 04, 2018 2:37 PM Status: Signed WOUND CENTER HYPERBARIC OXYGEN THERAPY SCREENING 1. Is the patient diabetic? (If No, skip to question 5) Yes 2. Does the patient have a lower extremity wound? Yes 3. Is there exposed/involved tendon or bone? No 4. Has the wound been present for 30 days? Yes If Yes to ALL questions above, consult the Hyperbaric Center 5. Has the patient been diagnosed with osteomyelitis? No 6. Has the patient had a previous skin graft or flap at the wound? No 7. Has the patient had or been offered vascular intervention/evaluation? No 8. Does the patient have a wound at an amputation site? No 9. Has the patient had radiation therapy at the site of the problem? No If Yes to ANY of questions 5-9, consult the Hyperbaric Center >> Yasemin Perez) CHIRAG Inman FriSep 04, 2018 2:44 PM Status: Signed Nursing Note See provider note for wound description and measurements Dressing removed In the presence and direction of the provider wound care as written below: Pedal pulses doppled per provider: Consent captured per provider for debridement good until January 2019 for Latoya States his problem started with a scratch to his LLE calf posterior . MHO DM , obesity,.HTN, H/O smoking but not current. BiLE edema . Lives with a room mate, is in jail. Thickened and scaling on BiLE 1. Right first toe plantar surface: Wound remains healed. 2. Left posterior calf: Wound remains healed Skin prep used to remove the zinc oxide. Soap and water used to wash the lower legs. Vaseline ointment liberally applied to both lower legs. 4 layer profore wraps applied bilateral. Profore Multiple layer Application: A 4- layer system applied to the bilateral lower extremities. A layer of cast padding, crepe bandage, light compression bandage, followed with a layer of coban and stockinet from behind the toes to 1 below the knee. Toes were warm and pink before and post application. + dorsal pedis pulse on palpation. It was demonstrated to the patient how to check for adequate circulation. If the patient exhibits a change in color to the extremity: change in temperature, increased pain, or the compression wrap becomes wet or to tight, the patient has been instructed to remove the wrap or go to the Emergency Department. Patient voices understanding with intent to comply. Measurements: Right Calf: 49.5 cm Right Ankle: 27.5 cm Left Calf: 46.0 cm Left Ankle: 30.0 cm Length : 51.0 cm PLAN: Return to the wound center to see Latoya in one week Make appt to see your primary care doctor for control of diabetes to assist in healing wound. PVR and venous doppler studies to be scheduled. 09/10/09 Patient is to follow up for regular foot care with Dr Salgado Please see your primary care doctor for your high blood pressure. Follow up with lymphedema clinic Elevate your legs Follow up with [facility] for diabetic shoes Yasemin Inman RN Encounter Status:Closed by RABIA POE on 09/14/18 [facility] PROGRESSon 09-04-2018 Protein mass conc HNO ID: [id number] Author: Rabia Poe Service: ? Author Type: Nurse Practitioner Type: Progress Notes Filed: 09/14/2018 10:40 AM Note Text: DATE VISIT: REASON FOR VISIT: Non-healing wounds of the right great toe and left lower leg. HISTORY OF PRESENT ILLNESS: Derrell Hoyt is a 53 year old male who presents to the [facility] for further evaluation and management of non-healing wounds involving the left lower leg and right diabetic foot ulcer. PAST MEDICAL HISTORY Diagnosis Date - Depression - DM (diabetes mellitus) (HCC) - HTN (hypertension) - Multinodular goiter 01/2015 - Papillary thyroid carcinoma (HCC) 01/2015 PAST SURGICAL HISTORY Procedure Laterality Date - ; THYROIDECTOMY TOTAL OR COMPLETE 04/2015 - KNEE LEFT OP SURGERY 1998 benign tumor - TONSILLECTOMY AND ADENOIDECTOMY HX 73 MEDICATIONS: silver sulfADIAZINE (SILVADENE) 1 % cream Apply to bilateral legs as directed levothyroxine (SYNTHROID) 300 mcg tablet Take 1 tablet by mouth once daily. lisinopril (PRINIVIL) 10 mg tablet Take 1 tablet by mouth once daily. metFORMIN (GLUCOPHAGE) 500 mg tablet Take 2 tablets by mouth twice daily with meals. aspirin, enteric coated (ASPIRIN, ENTERIC COATED) 81 mg EC tablet Take 1 tablet by mouth once daily. Lancets (FREESTYLE LANCETS) lancets Test blood sugar(s) 2 times daily. Dx: DM 250.0 Insulin: No sulfamethoxazole-trimetho prim (BACTRIM DS) 800-160 mg per tablet Take 1 tablet by mouth twice daily. clotrimazole (LOTRIMIN, CLOTRIM) 1 % cream Apply to bilateral legs as directed zinc oxide 22 % crea Apply to bilateral legs as directed. lansoprazole orally disintegrating (PREVACID) 30 mg disintegrating tablet Take 1 tablet by mouth twice daily for 14 days. bismuth subsalicylate (PEPTO-BISMOL) 262 mg chew Take 1 tablet by mouth four times daily for 14 days. simvastatin (ZOCOR) 80 mg tablet Take 1 tablet by mouth daily at bedtime. buPROPion SR (ZYBAN SR; WELLBUTRIN SR) 150 mg 12 hr tablet Take 1 tablet by mouth once daily. citalopram (CELEXA) 40 mg tablet Take 1 tablet by mouth once daily. albuterol HFA (PROAIR HFA) 90 mcg/actuation inhaler Inhale 2 Puffs as instructed every 6 hours as needed for Wheezing/Shortness of Breath. blood sugar diagnostic (FREESTYLE LITE STRIPS) test strip Test blood sugar(s) 1 times daily. Dx: Type 2 diabetes E11.9. Blood-Glucose Meter (FREESTYLE LITE METER) monitoring kit Freestyle LITE Meter Kit - ALLERGIES No Known Allergies FAMILY HISTORY Problem Relation Age of Onset - Heart Father valve disease - Cancer Paternal Grandfather pancreatic, alcoholic - Alcohol/Drug Father - Hypertension Paternal Grandmother - Prostate Cancer Paternal Grandfather - Colon Cancer Paternal Uncle - Heart Mother - Heart Paternal Grandmother - Alcohol/Drug Mother Social History Tobacco Use - Smoking status: Former Smoker Packs/day: 1.00 Years: 10.00 Pack years: 10.00 Types: Cigars Last attempt to quit: 09/07/2010 Years since quittin.0 - Smokeless tobacco: Never Used - Tobacco comment: occasionally Substance Use Topics - Alcohol use: No Comment: quit, hx of - Drug use: No REVIEW OF SYSTEM: PAIN ASSESSMENT: Negative for pain, history of chronic pain, or current treatment for a chronic pain condition. GENERAL: No weight loss, malaise or fevers HEENT: Negative for frequent or significant headaches, No changes in hearing or vision, no nose bleeds or other nasal problems NECK: Negative for lumps, goiter, pain and significant neck swelling RESPIRATORY: Negative for cough, hemoptysis, wheezing, COPD, dyspnea or shortness of breath CARDIOVASCULAR: Negative for chest pain, leg swelling, hypertension, CHF or palpitations GI: No nausea, vomiting, or diarrhea : No history of dysuria, frequency or incontinence MUSCULOSKELETAL: Negative for joint pain or swelling, back pain or muscle pain SKIN: As per HPI. Negative for any other lesions, rash, and itching PSYCH: Negative for sleep disturbance, mood disorder and recent psychosocial stressors HEMATOLOGY/LYMPHOLOGY: Negative for prolonged bleeding, bruising easily or swollen nodes ENDOCRINE: Negative for cold or heat intolerance, polyuria, polydipsia and goiter NEURO: No history of headaches, syncope, paralysis, seizures or tremors 09/04/18 1452 09/04/18 1453 BP: (!) 208/102 187/88 Pulse: 88 Resp: 20 Temp: 37 ?C (98.6 ?F) TempSrc: Oral SpO2: 94% PHYSICAL EXAMINATION: Constitutional: Alert and in no acute distress. Well developed, well nourished. HEENT: Head and face normal. Sclera non-icteric, EOM intact, Normal nasal mucosa, septum, and turbinates: Normal oropharynx. Comments: Neck: Supple, no bruit, no masses, thyroid not enlarged. Comments: Chest: Lungs clear to auscultation, no accessory muscle use for respiration Comments: Heart: Regular rate/rhythm, normal S1,S2, no murmur, rubs or gallops Comments: Abdomen: Soft, non-tender, non-distended, + bowel sounds, no bruit, no organomegaly Comments: Extremities: No clubbing, no cyanosis of fingers. Lower extremities normal strength. Dorsalis pedis : Present (Y) Absent Diminished Doppler Posterior Tibialis: Present (Y) Absent Diminished Doppler Capillary Refill: < 3 sec. (Y) > 3 sec. ABIs: Right Left Rubor of Dependency: Negative (Y) Positive (N) [place] Examination: Leg/ankle Measurements Right Calf: 50.0 cm Right Ankle: 28.4 cm Left Calf: 49.0 cm Left Ankle: 29.5 cm Length : 51.0 cm Skin: Normal skin color and pigmentation, normal skin turgor, and no rash. See Wound Assessment . Neurologic: Cortical function: Normal. Comments: Psychiatric: Judgment and insight: Intact. Mood and affect: Normal. Comments: Lymphatic: No cervical lymphadenopathy. Comments: Most recent laboratory data: Hemoglobin A1C = ?? WBC , Hgb , Hct , PLT , Glu , BUN , Cr , Na , K , Cl , Albumin , Total protein WOUND ASSESSMENT: IMPRESSION: 1. Right diabetic foot ulcer, iqbal grade 2, stable with no evidence of active infection. 2. Partial thickness wound (stasis) of the left lower leg in the setting of chronic venous insufficiency with secondary lymphedema. 3. Multiple risk factors or co-morbidities that may contribute to wound healing difficulties include obesity, diabetes mellitus, hypertension, depression and obesity. TREATMENT PLAN: Debridement Type: Autolytic Enzymatic Mechanical Surgical Sharp (N) Other: ?? Wound Dressing: See Nursing Notes for details. . Local Tx: 1. Right first toe plantar surface: Closed 2. Left posterior calf: Closed Area cleaned with soap and water. Skin prep used to remove the zinc oxide. Soap and water used to wash the lower legs. Vitamin AANDD ointment liberally applied to both lower legs. 4 layer profore wraps applied bilateral. Profore Multiple layer Application: A 4- layer system applied to the bilateral lower extremities. A layer of cast padding, crepe bandage, light compression bandage, followed with a layer of coban and stockinet from behind the toes to 1 below the knee. Toes were warm and pink before and post application. + dorsal pedis pulse on palpation. It was demonstrated to the patient how to check for adequate circulation. If the patient exhibits a change in color to the extremity: change in temperature, increased pain, or the compression wrap becomes wet or to tight, the patient has been instructed to remove the wrap or go to the Emergency Department. Patient voices understanding with intent to comply. Rx: Doxycycline and Bactrim Nutritional Support: MVI, Zinc Supplement and Protein Supplement Patient is instructed to continue a healthy, well-balanced diet for nutritional support for optimal healing. Protein is the most important nutrient for wound healing. Eating adequate amounts of protein allows the body to create new cells and chemicals to heal the wound, and increases the body?s ability to fight infection. Eating high protein foods daily is recommended such as: lean meats, fish, poultry, cheese, milk, yogurt, eggs and legumes. Vitamins and minerals provide a full range of nutrients for wound healing. It can help jump start the body's production of cells and chemicals needed for healing. Vitamins and minerals can be obtained through healthy foods in your diet and by taking a multiple vitamin supplement. Vitamin C is essential for collagen synthesis. Collagen and fibroblasts compose the basis for the structure of a new wound bed. Also, a deficiency of Vitamin C prolongs the healing time and contributes to reduced resistance to infection. Laboratory: Wound cultures (aerobic, anaerobic and fungal) collected 08/20/18 positive for Strep agalactoae group B, Proteus mirabilis, MRSA. Wound cultures are collected to assess level of bacterial bio-burden. Excessive bio-burden can result in inflammatory and proliferative phase stagnation as well as compromise of normal wound healing physiology. Bacterial proliferation, biofilm production, critical colonization and the development of resistant organism can lead to wound infection, wound deterioration and devastating tissue loss. Knowing the organism that populated the wound can help direct therapy, particularly anti-microbial dressing choices. Diagnostics: We will obtain PVRs of bilateral lower extremity to determine amount of compression that can be safely applied to the patient. Also, venous doppler study to evaluate for thermostat mechanic incompetence. Follow-up is scheduled in 1 week, sooner with any concerns or worsening symptoms. - See patient instructions for further recommendations. - Pt education along with discharge instructions given to patient - Discussed Red Flag signs and when to go to ER. - Pt agreeable with plan and verbalize understanding. Rabia Poe APRN.CNP Charge Capture: [id number] [facility] 08-28-2018 [facility] Office Visit ([facility] ) ----- DERRELL HOYT ([id number]) 1965 M Date Time Provider Department 08/28/18 8:00 AM RABIA POE, (RE EXAMINER) [facility] During your visit today, we recorded the following information about you: Temperature Pulse Respiration Blood pressure 98.4 degrees 93/minute 19/minute 144/65 Rabia Poe APRN.CNP 09/07/2018 4:56 AM Signed DATE VISIT: 08/28/2018 REASON FOR VISIT: Non-healing wounds of the right great toe and left lower leg. HISTORY OF PRESENT ILLNESS: Derrell Hoyt is a 53 year old male who presents to the [facility] for further evaluation and management of non-healing wounds involving the left lower leg and right diabetic foot ulcer. PAST MEDICAL HISTORY Diagnosis Date - Depression - DM (diabetes mellitus) (HCC) - HTN (hypertension) - Multinodular goiter 01/2015 - Papillary thyroid carcinoma (HCC) 01/2015 PAST SURGICAL HISTORY Procedure Laterality Date - ; THYROIDECTOMY TOTAL OR COMPLETE 04/2015 - KNEE LEFT OP SURGERY 1998 benign tumor - TONSILLECTOMY AND ADENOIDECTOMY HX 73 MEDICATIONS: silver sulfADIAZINE (SILVADENE) 1 % cream Apply to bilateral legs as directed levothyroxine (SYNTHROID) 300 mcg tablet Take 1 tablet by mouth once daily. lisinopril (PRINIVIL) 10 mg tablet Take 1 tablet by mouth once daily. metFORMIN (GLUCOPHAGE) 500 mg tablet Take 2 tablets by mouth twice daily with meals. aspirin, enteric coated (ASPIRIN, ENTERIC COATED) 81 mg EC tablet Take 1 tablet by mouth once daily. Lancets (FREESTYLE LANCETS) lancets Test blood sugar(s) 2 times daily. Dx: DM 250.0 Insulin: No sulfamethoxazole-trimetho prim (BACTRIM DS) 800-160 mg per tablet Take 1 tablet by mouth twice daily. clotrimazole (LOTRIMIN, CLOTRIM) 1 % cream Apply to bilateral legs as directed zinc oxide 22 % crea Apply to bilateral legs as directed. lansoprazole orally disintegrating (PREVACID) 30 mg disintegrating tablet Take 1 tablet by mouth twice daily for 14 days. bismuth subsalicylate (PEPTO-BISMOL) 262 mg chew Take 1 tablet by mouth four times daily for 14 days. simvastatin (ZOCOR) 80 mg tablet Take 1 tablet by mouth daily at bedtime. buPROPion SR (ZYBAN SR; WELLBUTRIN SR) 150 mg 12 hr tablet Take 1 tablet by mouth once daily. citalopram (CELEXA) 40 mg tablet Take 1 tablet by mouth once daily. albuterol HFA (PROAIR HFA) 90 mcg/actuation inhaler Inhale 2 Puffs as instructed every 6 hours as needed for Wheezing/Shortness of Breath. blood sugar diagnostic (FREESTYLE LITE STRIPS) test strip Test blood sugar(s) 1 times daily. Dx: Type 2 diabetes E11.9. Blood-Glucose Meter (FREESTYLE LITE METER) monitoring kit Freestyle LITE Meter Kit - ALLERGIES No Known Allergies FAMILY HISTORY Problem Relation Age of Onset - Heart Father valve disease - Cancer Paternal Grandfather pancreatic, alcoholic - Alcohol/Drug Father - Hypertension Paternal Grandmother - Prostate Cancer Paternal Grandfather - Colon Cancer Paternal Uncle - Heart Mother - Heart Paternal Grandmother - Alcohol/Drug Mother Social History Tobacco Use - Smoking status: Former Smoker Packs/day: 1.00 Years: 10.00 Pack years: 10.00 Types: Cigars Last attempt to quit: 09/07/2010 Years since quittin.0 - Smokeless tobacco: Never Used - Tobacco comment: occasionally Substance Use Topics - Alcohol use: No Comment: quit, hx of - Drug use: No REVIEW OF SYSTEM: PAIN ASSESSMENT: Negative for pain, history of chronic pain, or current treatment for a chronic pain condition. GENERAL: No weight loss, malaise or fevers HEENT: Negative for frequent or significant headaches, No changes in hearing or vision, no nose bleeds or other nasal problems NECK: Negative for lumps, goiter, pain and significant neck swelling RESPIRATORY: Negative for cough, hemoptysis, wheezing, COPD, dyspnea or shortness of breath CARDIOVASCULAR: Negative for chest pain, leg swelling, hypertension, CHF or palpitations GI: No nausea, vomiting, or diarrhea : No history of dysuria, frequency or incontinence MUSCULOSKELETAL: Negative for joint pain or swelling, back pain or muscle pain SKIN: As per HPI. Negative for any other lesions, rash, and itching PSYCH: Negative for sleep disturbance, mood disorder and recent psychosocial stressors HEMATOLOGY/LYMPHOLOGY: Negative for prolonged bleeding, bruising easily or swollen nodes ENDOCRINE: Negative for cold or heat intolerance, polyuria, polydipsia and goiter NEURO: No history of headaches, syncope, paralysis, seizures or tremors 08/28/18 0815 BP: 144/65 Pulse: 93 Resp: 19 Temp: 36.9 ?C (98.4 ?F) TempSrc: Oral SpO2: 94% PHYSICAL EXAMINATION: Constitutional: Alert and in no acute distress. Well developed, well nourished. HEENT: Head and face normal. Sclera non-icteric, EOM intact, Normal nasal mucosa, septum, and turbinates: Normal oropharynx. Comments: Neck: Supple, no bruit, no masses, thyroid not enlarged. Comments: Chest: Lungs clear to auscultation, no accessory muscle use for respiration Comments: Heart: Regular rate/rhythm, normal S1,S2, no murmur, rubs or gallops Comments: Abdomen: Soft, non-tender, non-distended, + bowel sounds, no bruit, no organomegaly Comments: Extremities: No clubbing, no cyanosis of fingers. Lower extremities normal strength. Dorsalis pedis : Present (Y) Absent Diminished Doppler Posterior Tibialis: Present (Y) Absent Diminished Doppler Capillary Refill: < 3 sec. (Y) > 3 sec. ABIs: Right Left Rubor of Dependency: Negative (Y) Positive (N) [place] Examination: Leg/ankle Measurements Right Calf: 50.0 cm Right Ankle: 28.4 cm Left Calf: 49.0 cm Left Ankle: 29.5 cm Length : 51.0 cm Skin: Normal skin color and pigmentation, normal skin turgor, and no rash. See Wound Assessment . Neurologic: Cortical function: Normal. Comments: Psychiatric: Judgment and insight: Intact. Mood and affect: Normal. Comments: Lymphatic: No cervical lymphadenopathy. Comments: Most recent laboratory data: Hemoglobin A1C = ?? WBC , Hgb , Hct , PLT , Glu , BUN , Cr , Na , K , Cl , Albumin , Total protein WOUND ASSESSMENT: IMPRESSION: 1. Right diabetic foot ulcer, iqbal grade 2, stable with no evidence of active infection. 2. Partial thickness wound (stasis) of the left lower leg in the setting of chronic venous insufficiency with secondary lymphedema. 3. Multiple risk factors or co-morbidities that may contribute to wound healing difficulties include obesity, diabetes mellitus, hypertension, depression and obesity. TREATMENT PLAN: Debridement Type: Autolytic Enzymatic Mechanical Surgical Sharp (N) Other: ?? Wound Dressing: See Nursing Notes for details. . Local Tx: 1. Right first toe plantar surface: Closed 2. Left posterior calf: Closed Area cleaned with soap and water. Skin prep used to remove the zinc oxide. Soap and water used to wash the lower legs. Vitamin AANDD ointment liberally applied to both lower legs. 4 layer profore wraps applied bilateral. Profore Multiple layer Application: A 4- layer system applied to the bilateral lower extremities. A layer of cast padding, crepe bandage, light compression bandage, followed with a layer of coban and stockinet from behind the toes to 1 below the knee. Toes were warm and pink before and post application. + dorsal pedis pulse on palpation. It was demonstrated to the patient how to check for adequate circulation. If the patient exhibits a change in color to the extremity: change in temperature, increased pain, or the compression wrap becomes wet or to tight, the patient has been instructed to remove the wrap or go to the Emergency Department. Patient voices understanding with intent to comply. Rx: Doxycycline and Bactrim Nutritional Support: MVI, Zinc Supplement and Protein Supplement Patient is instructed to continue a healthy, well-balanced diet for nutritional support for optimal healing. Protein is the most important nutrient for wound healing. Eating adequate amounts of protein allows the body to create new cells and chemicals to heal the wound, and increases the body?s ability to fight infection. Eating high protein foods daily is recommended such as: lean meats, fish, poultry, cheese, milk, yogurt, eggs and legumes. Vitamins and minerals provide a full range of nutrients for wound healing. It can help jump start the body's production of cells and chemicals needed for healing. Vitamins and minerals can be obtained through healthy foods in your diet and by taking a multiple vitamin supplement. Vitamin C is essential for collagen synthesis. Collagen and fibroblasts compose the basis for the structure of a new wound bed. Also, a deficiency of Vitamin C prolongs the healing time and contributes to reduced resistance to infection. Laboratory: Wound cultures (aerobic, anaerobic and fungal) collected 08/20/18 positive for Strep agalactoae group B, Proteus mirabilis, MRSA. Wound cultures are collected to assess level of bacterial bio-burden. Excessive bio-burden can result in inflammatory and proliferative phase stagnation as well as compromise of normal wound healing physiology. Bacterial proliferation, biofilm production, critical colonization and the development of resistant organism can lead to wound infection, wound deterioration and devastating tissue loss. Knowing the organism that populated the wound can help direct therapy, particularly anti-microbial dressing choices. Diagnostics: We will obtain PVRs of bilateral lower extremity to determine amount of compression that can be safely applied to the patient. Also, venous doppler study to evaluate for thermostat mechanic incompetence. Follow-up is scheduled in 1 week, sooner with any concerns or worsening symptoms. - See patient instructions for further recommendations. - Pt education along with discharge instructions given to patient - Discussed Red Flag signs and when to go to ER. - Pt agreeable with plan and verbalize understanding. Rabia Poe APRN.[facility] Charge Capture: [id number] Yasemin Inman RN, RN 08/28/2018 8:35 AM Signed Nursing Note See provider note for wound description and measurements Dressing removed In the presence and direction of the provider wound care as written below: Pedal pulses doppled per provider: Consent captured per provider for debridement good until January 2019 for Latoya ____- States his problem started with a scratch to his LLE calf posterior . MHO DM , obesity,.HTN, H/O smoking but not current. BiLE edema . Lives with a room mate, is in jail. Thickened and scaling on BiLE 1. Right first toe plantar surface: Wound has healed and will follow up with Dr. Salgado for regular DM foot care 2. Left posterior calf: Wound has healed Skin prep used to remove the zinc oxide. Soap and water used to wash the lower legs. Vitamin AANDD ointment liberally applied to both lower legs. 4 layer profore wraps applied bilateral. Profore Multiple layer Application: A 4- layer system applied to the bilateral lower extremities. A layer of cast padding, crepe bandage, light compression bandage, followed with a layer of coban and stockinet from behind the toes to 1 below the knee. Toes were warm and pink before and post application. + dorsal pedis pulse on palpation. It was demonstrated to the patient how to check for adequate circulation. If the patient exhibits a change in color to the extremity: change in temperature, increased pain, or the compression wrap becomes wet or to tight, the patient has been instructed to remove the wrap or go to the Emergency Department. Patient voices understanding with intent to comply. Measurements: Right Calf: 50.0 cm Right Ankle: 28.4 cm Left Calf: 49.0 cm Left Ankle: 29.5 cm Length : 51.0 cm PLAN: Return to the wound center to see Latoya in one week Make appt to see your primary care doctor for control of diabetes to assist in healing wound. PVR and venous doppler studies to be scheduled. Patient is to follow up for regular foot care with Dr Salgado Please see your primary care doctor for your high blood pressure. Follow up with lymphedema clinic [facility] your [facility] Rx: Doxycycline and Bactrim CHIRAG Luongissa Leuchtag, RN, RN 08/28/2018 8:32 AM Signed WOUND CARE INSTRUCTIONS- Derrell Hoyt Wound location: Right great toe Leave leg wraps in place clean and dry until return to wound center If your leg wraps become uncomfortable - please elevate your legs above your heart. If it continues, please remove wraps and call us. To give your wound the best chance to heal: - Eat three balanced meals daily focusing on the protein - Control swelling by elevating the extremity above your heart - exercise the extremity - Control your blood sugar. Keep blood sugar less than 200 - Complete your wound care instructions - Vitamin C 500 mg twice daily - Multiple Vitamin Daily - Drink a protein shake daily: Premier ochoa Report any of the following changes to the Wound Center at [phone] or go to the Emergency Department:? Fever or chills ? Increased drainage ? Green or yellow drainage ? Foul odor ? Increased pain ? Hardness around the wound ? Redness, warmth or swelling of the surrounding tissue ? Color change to the wound PLAN: Return to the wound center to see Latoya in one week Make appt to see your primary care doctor for control of diabetes to assist in healing wound. PVR and venous doppler studies to be scheduled. Patient is to follow up for regular foot care with Dr Salgado Please see your primary care doctor for your high blood pressure. Follow up with lymphedema clinic [facility] your [facility] Rx: Doxycycline and Bactrim Rabia Poe/veronika Lorenzo MA, MA 08/28/2018 8:50 AM Signed WOUND CENTER HYPERBARIC OXYGEN THERAPY SCREENING 1. Is the patient diabetic? (If No, skip to question 5) Yes 2. Does the patient have a lower extremity wound? Yes 3. Is there exposed/involved tendon or bone? No 4. Has the wound been present for 30 days? Yes If Yes to ALL questions above, consult the Hyper[facility]ic Center 5. Has the patient been diagnosed with osteomyelitis? No 6. Has the patient had a previous skin graft or flap at the wound? No 7. Has the patient had or been offered vascular intervention/evaluation? No 8. Does the patient have a wound at an amputation site? No 9. Has the patient had radiation therapy at the site of the problem? No If Yes to ANY of questions 5-9, consult the Hyperbaric Center Referring Provider: SELF [[id number]] Allergies As of Date: 08/28/2018 (No Known Allergies) Date Reviewed: 08/28/2018 Reviewed by: Barbara Ramsey) FAHEEM Lorenzo - Fully Assessed Reason for Visit: Wound Check [133] Cmt: right great toe Primary Visit Diagnosis:Non-pressure chronic ulcer of left lower leg, limited to breakdown of skin (HCC) [L97.921] Other Visit Diagnosis:MRSA (methicillin resistant staph aureus) culture positive [Z22.322] Order(s):PVR LEG [facility] [[id number]] Order #: [id number] FUTURE US VENOUS INCOMPETENCY [facility] [[id number]] Order #: [id number] FUTURE sulfamethoxazole-trimetho prim (BACTRIM DS) 800-160 mg per tabletTake 1 tablet by mouth twice daily.Disp: 28 tabletRfl: 0 Prescriptions as of 08/28/2018 Sig: DOXYCYCLINE MONOHYDRATE 100 M* Take 1 capsule by mouth twice* DOXYCYCLINE MONOHYDRATE 100 M* Take 1 capsule by mouth twice* SILVER SULFADIAZINE 1 % TOPIC* Apply to bilateral legs as di* LEVOTHYROXINE 300 MCG TABLET Take 1 tablet by mouth once d* LISINOPRIL 10 MG TABLET Take 1 tablet by mouth once d* METFORMIN 500 MG TABLET Take 2 tablets by mouth twice* ASPIRIN 81 MG TABLET,DELAYED * Take 1 tablet by mouth once d* LANCETS Test blood sugar(s) 2 times d* Patient taking differently: 1 Each three times daily. Dx:* SULFAMETHOXAZOLE 800 MG-TRIME* Take 1 tablet by mouth twice * CLOTRIMAZOLE 1 % TOPICAL CREAM Apply to bilateral legs as di* Patient not taking: Reported on 08/25/2018 ZINC OXIDE 22 % TOPICAL CREAM Apply to bilateral legs as di* Patient not taking: Reported on 08/25/2018 CEPHALEXIN 500 MG CAPSULE Take 1 capsule by mouth four * Patient not taking: Reported on 08/25/2018 LANSOPRAZOLE 30 MG DELAYED RE* Take 1 tablet by mouth twice * BISMUTH SUBSALICYLATE 262 MG * Take 1 tablet by mouth four t* SIMVASTATIN 80 MG TABLET Take 1 tablet by mouth daily * Patient not taking: Reported on 08/25/2018 BUPROPION HCL SR 150 MG TABLE* Take 1 tablet by mouth once d* Patient not taking: Reported on 08/25/2018 CITALOPRAM 40 MG TABLET Take 1 tablet by mouth once d* Patient not taking: Reported on 08/25/2018 ALBUTEROL SULFATE HFA 90 MCG/* Inhale 2 Puffs as instructed * Patient not taking: Reported on 08/20/2018 BLOOD SUGAR DIAGNOSTIC STRIPS Test blood sugar(s) 1 times d* Patient not taking: Reported on 08/25/2018 BLOOD-GLUCOSE METER KIT Freestyle LITE Meter Kit - Patient taking differently: 1 Each three times daily. Pierre* Problem List As Of Date 08/28/2018 Noted Resolved Hypertension [I10] INVALID FOR* Low HDL (under 40) [E78.6] INVALID FOR* Hyperglycemia [R73.9] INVALID FOR*01/17/2016 Diabetes mellitus type 2 in obese [E11.69, E66.*INVALID FOR* Goiter, nontoxic, multinodular [E04.2] INVALID FOR* Papillary thyroid carcinoma (HCC) [C73] INVALID FOR* Obesity, Class III, BMI 40-49.9 (morbid obesity*INVALID FOR* Other instructions from your clinician: WOUND CARE INSTRUCTIONS- Derrell Hoyt Wound location: Right great toe Leave leg wraps in place clean and dry until return to wound center If your leg wraps become uncomfortable - please elevate your legs above your heart. If it continues, please remove wraps and call us. To give your wound the best chance to heal: - Eat three balanced meals daily focusing on the protein - Control swelling by elevating the extremity above your heart - exercise the extremity - Control your blood sugar. Keep blood sugar less than 200 - Complete your wound care instructions - Vitamin C 500 mg twice daily - Multiple Vitamin Daily - Drink a protein shake daily: Premier ochoa Report any of the following changes to the Wound Center at [phone] or go to the Emergency Department:? Fever or chills ? Increased drainage ? Green or yellow drainage ? Foul odor ? Increased pain ? Hardness around the wound ? Redness, warmth or swelling of the surrounding tissue ? Color change to the wound PLAN: Return to the wound center to see Latoya in one week Make appt to see your primary care doctor for control of diabetes to assist in healing wound. PVR and venous doppler studies to be scheduled. Patient is to follow up for regular foot care with Dr Salgado Please see your primary care doctor for your high blood pressure. Follow up with lymphedema clinic [facility] your [facility] Rx: Doxycycline and Bactrim Rabia Poe/veronika Visit Notes: >> Yasemin (Rn) CHIRAG Inman FriAug 28, 2018 8:23 AM Status: Signed Nursing Note See provider note for wound description and measurements Dressing removed In the presence and direction of the provider wound care as written below: Pedal pulses doppled per provider: Consent captured per provider for debridement good until January 2019 for Latoya States his problem started with a scratch to his LLE calf posterior . MHO DM , obesity,.HTN, H/O smoking but not current. BiLE edema . Lives with a room mate, is in jail. Thickened and scaling on BiLE 1. Right first toe plantar surface: Wound has healed and will follow up with Dr. Salgado for regular DM foot care 2. Left posterior calf: Wound has healed Skin prep used to remove the zinc oxide. Soap and water used to wash the lower legs. Vitamin AANDD ointment liberally applied to both lower legs. 4 layer profore wraps applied bilateral. Profore Multiple layer Application: A 4- layer system applied to the bilateral lower extremities. A layer of cast padding, crepe bandage, light compression bandage, followed with a layer of coban and stockinet from behind the toes to 1 below the knee. Toes were warm and pink before and post application. + dorsal pedis pulse on palpation. It was demonstrated to the patient how to check for adequate circulation. If the patient exhibits a change in color to the extremity: change in temperature, increased pain, or the compression wrap becomes wet or to tight, the patient has been instructed to remove the wrap or go to the Emergency Department. Patient voices understanding with intent to comply. Measurements: Right Calf: 50.0 cm Right Ankle: 28.4 cm Left Calf: 49.0 cm Left Ankle: 29.5 cm Length : 51.0 cm PLAN: Return to the wound center to see Latoya in one week Make appt to see your primary care doctor for control of diabetes to assist in healing wound. PVR and venous doppler studies to be scheduled. Patient is to follow up for regular foot care with Dr Salgado Please see your primary care doctor for your high blood pressure. Follow up with lymphedema clinic [facility] your [facility] Rx: Doxycycline and Bactrim Yasemin Inman RN >> Barbara Ramsey) FAHEEM Lorenzo FriAug 28, 2018 8:48 AM Status: Signed WOUND CENTER HYPERBARIC OXYGEN THERAPY SCREENING 1. Is the patient diabetic? (If No, skip to question 5) Yes 2. Does the patient have a lower extremity wound? Yes 3. Is there exposed/involved tendon or bone? No 4. Has the wound been present for 30 days? Yes If Yes to ALL questions above, consult the Hyperbaric Center 5. Has the patient been diagnosed with osteomyelitis? No 6. Has the patient had a previous skin graft or flap at the wound? No 7. Has the patient had or been offered vascular intervention/evaluation? No 8. Does the patient have a wound at an amputation site? No 9. Has the patient had radiation therapy at the site of the problem? No If Yes to ANY of questions 5-9, consult the Hyperbaric Center Prescriptions ordered this encounter Disp Refills Start End SULFAMETHOXAZOLE 800 MG-TRIMETHOPRIM* 28 t* 0 08/28/2018 Route: ORAL Sig: Take 1 tablet by mouth twice daily. Encounter Status:Closed by RABIA POE on 09/07/18 [facility] PROGRESSon 08-28-2018 Protein mass conc HNO ID: [id number] Author: Rabia Soto (Emergency Communications Dispatcher) Consuelo Service: ? Author Type: Nurse Practitioner Type: Progress Notes Filed: 09/07/2018 4:56 AM Note Text: DATE VISIT: 08/28/2018 REASON FOR VISIT: Non-healing wounds of the right great toe and left lower leg. HISTORY OF PRESENT ILLNESS: Derrell Hoyt is a 53 year old male who presents to the [facility] for further evaluation and management of non-healing wounds involving the left lower leg and right diabetic foot ulcer. PAST MEDICAL HISTORY Diagnosis Date - Depression - DM (diabetes mellitus) (HCC) - HTN (hypertension) - Multinodular goiter 01/2015 - Papillary thyroid carcinoma (HCC) 01/2015 PAST SURGICAL HISTORY Procedure Laterality Date - ; THYROIDECTOMY TOTAL OR COMPLETE 04/2015 - KNEE LEFT OP SURGERY 1997 benign tumor - TONSILLECTOMY AND ADENOIDECTOMY HX 73 MEDICATIONS: silver sulfADIAZINE (SILVADENE) 1 % cream Apply to bilateral legs as directed levothyroxine (SYNTHROID) 300 mcg tablet Take 1 tablet by mouth once daily. lisinopril (PRINIVIL) 10 mg tablet Take 1 tablet by mouth once daily. metFORMIN (GLUCOPHAGE) 500 mg tablet Take 2 tablets by mouth twice daily with meals. aspirin, enteric coated (ASPIRIN, ENTERIC COATED) 81 mg EC tablet Take 1 tablet by mouth once daily. Lancets (FREESTYLE LANCETS) lancets Test blood sugar(s) 2 times daily. Dx: DM 250.0 Insulin: No sulfamethoxazole-trimetho prim (BACTRIM DS) 800-160 mg per tablet Take 1 tablet by mouth twice daily. clotrimazole (LOTRIMIN, CLOTRIM) 1 % cream Apply to bilateral legs as directed zinc oxide 22 % crea Apply to bilateral legs as directed. lansoprazole orally disintegrating (PREVACID) 30 mg disintegrating tablet Take 1 tablet by mouth twice daily for 14 days. bismuth subsalicylate (PEPTO-BISMOL) 262 mg chew Take 1 tablet by mouth four times daily for 14 days. simvastatin (ZOCOR) 80 mg tablet Take 1 tablet by mouth daily at bedtime. buPROPion SR (ZYBAN SR; WELLBUTRIN SR) 150 mg 12 hr tablet Take 1 tablet by mouth once daily. citalopram (CELEXA) 40 mg tablet Take 1 tablet by mouth once daily. albuterol HFA (PROAIR HFA) 90 mcg/actuation inhaler Inhale 2 Puffs as instructed every 6 hours as needed for Wheezing/Shortness of Breath. blood sugar diagnostic (FREESTYLE LITE STRIPS) test strip Test blood sugar(s) 1 times daily. Dx: Type 2 diabetes E11.9. Blood-Glucose Meter (FREESTYLE LITE METER) monitoring kit Freestyle LITE Meter Kit - ALLERGIES No Known Allergies FAMILY HISTORY Problem Relation Age of Onset - Heart Father valve disease - Cancer Paternal Grandfather pancreatic, alcoholic - Alcohol/Drug Father - Hypertension Paternal Grandmother - Prostate Cancer Paternal Grandfather - Colon Cancer Paternal Uncle - Heart Mother - Heart Paternal Grandmother - Alcohol/Drug Mother Social History Tobacco Use - Smoking status: Former Smoker Packs/day: 1.00 Years: 10.00 Pack years: 10.00 Types: Cigars Last attempt to quit: 09/07/2010 Years since quittin.0 - Smokeless tobacco: Never Used - Tobacco comment: occasionally Substance Use Topics - Alcohol use: No Comment: quit, hx of - Drug use: No REVIEW OF SYSTEM: PAIN ASSESSMENT: Negative for pain, history of chronic pain, or current treatment for a chronic pain condition. GENERAL: No weight loss, malaise or fevers HEENT: Negative for frequent or significant headaches, No changes in hearing or vision, no nose bleeds or other nasal problems NECK: Negative for lumps, goiter, pain and significant neck swelling RESPIRATORY: Negative for cough, hemoptysis, wheezing, COPD, dyspnea or shortness of breath CARDIOVASCULAR: Negative for chest pain, leg swelling, hypertension, CHF or palpitations GI: No nausea, vomiting, or diarrhea : No history of dysuria, frequency or incontinence MUSCULOSKELETAL: Negative for joint pain or swelling, back pain or muscle pain SKIN: As per HPI. Negative for any other lesions, rash, and itching PSYCH: Negative for sleep disturbance, mood disorder and recent psychosocial stressors HEMATOLOGY/LYMPHOLOGY: Negative for prolonged bleeding, bruising easily or swollen nodes ENDOCRINE: Negative for cold or heat intolerance, polyuria, polydipsia and goiter NEURO: No history of headaches, syncope, paralysis, seizures or tremors 08/28/18 0815 BP: 144/65 Pulse: 93 Resp: 19 Temp: 36.9 ?C (98.4 ?F) TempSrc: Oral SpO2: 94% PHYSICAL EXAMINATION: Constitutional: Alert and in no acute distress. Well developed, well nourished. HEENT: Head and face normal. Sclera non-icteric, EOM intact, Normal nasal mucosa, septum, and turbinates: Normal oropharynx. Comments: Neck: Supple, no bruit, no masses, thyroid not enlarged. Comments: Chest: Lungs clear to auscultation, no accessory muscle use for respiration Comments: Heart: Regular rate/rhythm, normal S1,S2, no murmur, rubs or gallops Comments: Abdomen: Soft, non-tender, non-distended, + bowel sounds, no bruit, no organomegaly Comments: Extremities: No clubbing, no cyanosis of fingers. Lower extremities normal strength. Dorsalis pedis : Present (Y) Absent Diminished Doppler Posterior Tibialis: Present (Y) Absent Diminished Doppler Capillary Refill: < 3 sec. (Y) > 3 sec. ABIs: Right Left Rubor of Dependency: Negative (Y) Positive (N) [place] Examination: Leg/ankle Measurements Right Calf: 50.0 cm Right Ankle: 28.4 cm Left Calf: 49.0 cm Left Ankle: 29.5 cm Length : 51.0 cm Skin: Normal skin color and pigmentation, normal skin turgor, and no rash. See Wound Assessment . Neurologic: Cortical function: Normal. Comments: Psychiatric: Judgment and insight: Intact. Mood and affect: Normal. Comments: Lymphatic: No cervical lymphadenopathy. Comments: Most recent laboratory data: Hemoglobin A1C = ?? WBC , Hgb , Hct , PLT , Glu , BUN , Cr , Na , K , Cl , Albumin , Total protein WOUND ASSESSMENT: IMPRESSION: 1. Right diabetic foot ulcer, iqbal grade 2, stable with no evidence of active infection. 2. Partial thickness wound (stasis) of the left lower leg in the setting of chronic venous insufficiency with secondary lymphedema. 3. Multiple risk factors or co-morbidities that may contribute to wound healing difficulties include obesity, diabetes mellitus, hypertension, depression and obesity. TREATMENT PLAN: Debridement Type: Autolytic Enzymatic Mechanical Surgical Sharp (N) Other: ?? Wound Dressing: See Nursing Notes for details. . Local Tx: 1. Right first toe plantar surface: Closed 2. Left posterior calf: Closed Area cleaned with soap and water. Skin prep used to remove the zinc oxide. Soap and water used to wash the lower legs. Vitamin AANDD ointment liberally applied to both lower legs. 4 layer profore wraps applied bilateral. Profore Multiple layer Application: A 4- layer system applied to the bilateral lower extremities. A layer of cast padding, crepe bandage, light compression bandage, followed with a layer of coban and stockinet from behind the toes to 1 below the knee. Toes were warm and pink before and post application. + dorsal pedis pulse on palpation. It was demonstrated to the patient how to check for adequate circulation. If the patient exhibits a change in color to the extremity: change in temperature, increased pain, or the compression wrap becomes wet or to tight, the patient has been instructed to remove the wrap or go to the Emergency Department. Patient voices understanding with intent to comply. Rx: Doxycycline and Bactrim Nutritional Support: MVI, Zinc Supplement and Protein Supplement Patient is instructed to continue a healthy, well-balanced diet for nutritional support for optimal healing. Protein is the most important nutrient for wound healing. Eating adequate amounts of protein allows the body to create new cells and chemicals to heal the wound, and increases the body?s ability to fight infection. Eating high protein foods daily is recommended such as: lean meats, fish, poultry, cheese, milk, yogurt, eggs and legumes. Vitamins and minerals provide a full range of nutrients for wound healing. It can help jump start the body's production of cells and chemicals needed for healing. Vitamins and minerals can be obtained through healthy foods in your diet and by taking a multiple vitamin supplement. Vitamin C is essential for collagen synthesis. Collagen and fibroblasts compose the basis for the structure of a new wound bed. Also, a deficiency of Vitamin C prolongs the healing time and contributes to reduced resistance to infection. Laboratory: Wound cultures (aerobic, anaerobic and fungal) collected 08/20/18 positive for Strep agalactoae group B, Proteus mirabilis, MRSA. Wound cultures are collected to assess level of bacterial bio-burden. Excessive bio-burden can result in inflammatory and proliferative phase stagnation as well as compromise of normal wound healing physiology. Bacterial proliferation, biofilm production, critical colonization and the development of resistant organism can lead to wound infection, wound deterioration and devastating tissue loss. Knowing the organism that populated the wound can help direct therapy, particularly anti-microbial dressing choices. Diagnostics: We will obtain PVRs of bilateral lower extremity to determine amount of compression that can be safely applied to the patient. Also, venous doppler study to evaluate for thermostat mechanic incompetence. Follow-up is scheduled in 1 week, sooner with any concerns or worsening symptoms. - See patient instructions for further recommendations. - Pt education along with discharge instructions given to patient - Discussed Red Flag signs and when to go to ER. - Pt agreeable with plan and verbalize understanding. Rabia Poe APRN.RE EXAMINER Charge Capture: [id number] [facility] CNOVon 08-21-2018 CNOV Office Visit ([facility] ) ----- DERRELL HOYT ([id number]) 1965 M Date Time Provider Department 08/21/18 8:30 AM RABIA POE ([facility]) [facility] During your visit today, we recorded the following information about you: Temperature Pulse Respiration Blood pressure 98.1 degrees 97/minute 18/minute 195/95 Rabia Poe APRN.CNP 10/03/2018 2:53 PM Addendum DATE OF CONSULTATION: 08/21/2018 REQUESTING PHYSICIAN: Francheska Wagner CNP CONSULTING PROVIDER: Rabia Poe APRN.CNP REASON FOR CONSULTATION: Non-healing wounds of the right great toe and left lower leg. HISTORY OF PRESENT ILLNESS: Derrell Hoyt is a 53 year old male who presents to the [facility] for further evaluation and management of non-healing wounds involving the left lower leg and right diabetic foot ulcer. PAST MEDICAL HISTORY Diagnosis Date - Depression - DM (diabetes mellitus) (HCC) - HTN (hypertension) - Multinodular goiter 01/2015 - Papillary thyroid carcinoma (HCC) 01/2015 PAST SURGICAL HISTORY Procedure Laterality Date - ; THYROIDECTOMY TOTAL OR COMPLETE 04/2015 - KNEE LEFT OP SURGERY 1998 benign tumor - TONSILLECTOMY AND ADENOIDECTOMY HX 73 MEDICATIONS: silver sulfADIAZINE (SILVADENE) 1 % cream Apply to bilateral legs as directed zinc oxide 22 % crea Apply to bilateral legs as directed. levothyroxine (SYNTHROID) 300 mcg tablet Take 1 tablet by mouth once daily. simvastatin (ZOCOR) 80 mg tablet Take 1 tablet by mouth daily at bedtime. buPROPion SR (ZYBAN SR; WELLBUTRIN SR) 150 mg 12 hr tablet Take 1 tablet by mouth once daily. lisinopril (PRINIVIL) 10 mg tablet Take 1 tablet by mouth once daily. metFORMIN (GLUCOPHAGE) 500 mg tablet Take 2 tablets by mouth twice daily with meals. citalopram (CELEXA) 40 mg tablet Take 1 tablet by mouth once daily. blood sugar diagnostic (FREESTYLE LITE STRIPS) test strip Test blood sugar(s) 1 times daily. Dx: Type 2 diabetes E11.9. Blood-Glucose Meter (FREESTYLE LITE METER) monitoring kit Freestyle LITE Meter Kit - Lancets (FREESTYLE LANCETS) lancets Test blood sugar(s) 2 times daily. Dx: DM 250.0 Insulin: No sulfamethoxazole-trimetho prim (BACTRIM DS) 800-160 mg per tablet Take 1 tablet by mouth twice daily. doxycycline monohydrate (MONODOX) 100 mg capsule Take 1 capsule by mouth twice daily for 10 days. doxycycline monohydrate (MONODOX) 100 mg capsule Take 1 capsule by mouth twice daily for 10 days. clotrimazole (LOTRIMIN, CLOTRIM) 1 % cream Apply to bilateral legs as directed lansoprazole orally disintegrating (PREVACID) 30 mg disintegrating tablet Take 1 tablet by mouth twice daily for 14 days. bismuth subsalicylate (PEPTO-BISMOL) 262 mg chew Take 1 tablet by mouth four times daily for 14 days. aspirin, enteric coated (ASPIRIN, ENTERIC COATED) 81 mg EC tablet Take 1 tablet by mouth once daily. albuterol HFA (PROAIR HFA) 90 mcg/actuation inhaler Inhale 2 Puffs as instructed every 6 hours as needed for Wheezing/Shortness of Breath. ALLERGIES No Known Allergies FAMILY HISTORY Problem Relation Age of Onset - Heart Father valve disease - Cancer Paternal Grandfather pancreatic, alcoholic - Alcohol/Drug Father - Hypertension Paternal Grandmother - Prostate Cancer Paternal Grandfather - Colon Cancer Paternal Uncle - Heart Mother - Heart Paternal Grandmother - Alcohol/Drug Mother Social History Tobacco Use - Smoking status: Former Smoker Packs/day: 1.00 Years: 10.00 Pack years: 10.00 Types: Cigars Last attempt to quit: 09/07/2010 Years since quittin.9 - Smokeless tobacco: Never Used - Tobacco comment: occasionally Substance Use Topics - Alcohol use: No Comment: quit, hx of - Drug use: No REVIEW OF SYSTEM: PAIN ASSESSMENT: Negative for pain, history of chronic pain, or current treatment for a chronic pain condition. GENERAL: No weight loss, malaise or fevers HEENT: Negative for frequent or significant headaches, No changes in hearing or vision, no nose bleeds or other nasal problems NECK: Negative for lumps, goiter, pain and significant neck swelling RESPIRATORY: Negative for cough, hemoptysis, wheezing, COPD, dyspnea or shortness of breath CARDIOVASCULAR: Negative for chest pain, leg swelling, hypertension, CHF or palpitations GI: No nausea, vomiting, or diarrhea : No history of dysuria, frequency or incontinence MUSCULOSKELETAL: Negative for joint pain or swelling, back pain or muscle pain SKIN: As per HPI. Negative for any other lesions, rash, and itching PSYCH: Negative for sleep disturbance, mood disorder and recent psychosocial stressors HEMATOLOGY/LYMPHOLOGY: Negative for prolonged bleeding, bruising easily or swollen nodes ENDOCRINE: Negative for cold or heat intolerance, polyuria, polydipsia and goiter NEURO: No history of headaches, syncope, paralysis, seizures or tremors 08/21/18 0815 08/21/18 0818 BP: (!) 203/94 195/95 Pulse: 97 Resp: 18 Temp: 36.7 ?C (98.1 ?F) TempSrc: Oral SpO2: 97% PHYSICAL EXAMINATION: Constitutional: Alert and in no acute distress. Well developed, well nourished. HEENT: Head and face normal. Sclera non-icteric, EOM intact, Normal nasal mucosa, septum, and turbinates: Normal oropharynx. Comments: Neck: Supple, no bruit, no masses, thyroid not enlarged. Comments: Chest: Lungs clear to auscultation, no accessory muscle use for respiration Comments: Heart: Regular rate/rhythm, normal S1,S2, no murmur, rubs or gallops Comments: Abdomen: Soft, non-tender, non-distended, + bowel sounds, no bruit, no organomegaly Comments: Extremities: No clubbing, no cyanosis of fingers. Lower extremities normal strength. Dorsalis pedis : Present (Y) Absent Diminished Doppler Posterior Tibialis: Present (Y) Absent Diminished Doppler Capillary Refill: < 3 sec. (Y) > 3 sec. ABIs: Right Left Rubor of Dependency: Negative (Y) Positive (N) [place] Examination: Comments: Edema Right Calf: 56.5 had to be measured over pant leg Right Ankle: 33.5 Left Calf: 54.7 Left Ankle: 35.3 Length : Skin: Normal skin color and pigmentation, normal skin turgor, and no rash. See Wound Assessment . Neurologic: Cortical function: Normal. Comments: Psychiatric: Judgment and insight: Intact. Mood and affect: Normal. Comments: Lymphatic: No cervical lymphadenopathy. Comments: Most recent laboratory data: Hemoglobin A1C = ?? WBC , Hgb , Hct , PLT , Glu , BUN , Cr , Na , K , Cl , Albumin , Total protein WOUND ASSESSMENT: Wound Number: 1 First Assessed Date: 08/20/18 Pre-existing: YES Location: Foot Orientation: Right great toe plantar aspect Wound Etiology: Diabetic Depth of Tissue Injury (Non-pressure): Full ThicknessPartial Thickness Diabetic Wounds:N/A Pressure Injury: N/A Pre-debridement Measurements Initial (First Visit): 0.4 cm length x 1.0 cm width x eschar covered cm depth Post-debridement Measurements (Current): L 0.4 cm x W 1.2 cm X D 0.6 cm % Healing Rate/#Weeks: Initial assessment Wound Bed (Pre-debridement): Leola Wound Bed (Post-debridement): N/A Undermining: No Tunneling: No Tendon/bone exposed: NO Wound Edge/Margins: Well-defined wound edges, Edge attached to base, Epiboly/rolled and Fibrotic scarred Periwound Tissue: Dry,flaky, impaired and Edema Exudate Amount:Scant/Minimal Consistency:Serous Odor:None Localized s/s: None Systemic s/s: None Local/systemic Rx: None Wound Healing Status: Chronic Clinically presenting as: Stalled wound healing Wound Number: 2 First Assessed Date: 08/20/18 Pre-existing: YES Location: Leg Orientation: Left and Posterior Calf Wound Etiology: Venous Depth of Tissue Injury (Non-pressure): Partial Thickness Diabetic Wounds:N/A Pressure Injury: N/A Pre-debridement Measurements Initial (First Visit): 0.2 cm length x 0.8 cm width x 0.1 cm depth Pre-debridement Measurements (Current): N/A % Healing Rate/#Weeks: Week 1 -- Wound Bed (Pre-debridement): Red Wound Bed (Post-debridement): N/A Undermining: No Tunneling: No Tendon/bone exposed: NO Wound Edge/Margins: Well-defined wound edges, Edge attached to base and Fibrotic scarred Periwound Tissue: Normal, intact,uninvolved tissue Exudate Amount:Moderate Consistency:Serous Odor:None Localized s/s: Non-healing Systemic s/s: None Local/systemic Rx: None Wound Healing Status: Chronic Clinically presenting as: Stalled wound healing IMPRESSION: 1. Right diabetic foot ulcer, iqbal grade 2, stable with no evidence of active infection. 2. Partial thickness wound (stasis) of the left lower leg in the setting of chronic venous insufficiency with secondary lymphedema. 3. Multiple risk factors or co-morbidities that may contribute to wound healing difficulties include obesity, diabetes mellitus, hypertension, depression and obesity. TREATMENT PLAN: Debridement Type: Autolytic Enzymatic Mechanical Surgical Sharp (N) Other: ?? Wound Dressing: See Nursing Notes for details. . Local Tx: 1. Right first toe plantar surface, Cleaned with soap and water , Pack wound with vashe soaked gaze. Covered with 4x4 and conform gauze taped in place. 2. Left posterior calf: Area cleaned with soap and water,Cleaned with soap and water Equal parts zinc oxide and hydrocortisone cream applied to lower legs, 4 layer compression wrap applied from one inch below the knee to base of toes. Covered with stockinet, blue socks given and shoe given for BiLE Discussed with patient need for following a pipeman for foot care due to his diabetes, Systemic Rx: Keflex, Lotrimin, Silvadene cream Decongestive Management: Discussed management consisting of decongestive phase to decrease volume of the legs and maintenance when patient will be fitted for appropriate compression garments. Tissue edema compresses and further compromises the microcirculation, adding insult by decreasing O2 and nutrient delivery to the tissues. These factors synergistically threaten wound healing by contributing to the progression of infectious processes and by causing additional tissue necrosis. Right LE/UE: 4-layer Left LE/UE: 4-layer Nutritional Support: MVI, Zinc Supplement and Protein Supplement Patient is instructed to continue a healthy, well-balanced diet for nutritional support for optimal healing. Protein is the most important nutrient for wound healing. Eating adequate amounts of protein allows the body to create new cells and chemicals to heal the wound, and increases the body?s ability to fight infection. Eating high protein foods daily is recommended such as: lean meats, fish, poultry, cheese, milk, yogurt, eggs and legumes. Vitamins and minerals provide a full range of nutrients for wound healing. It can help jump start the body's production of cells and chemicals needed for healing. Vitamins and minerals can be obtained through healthy foods in your diet and by taking a multiple vitamin supplement. Vitamin C is essential for collagen synthesis. Collagen and fibroblasts compose the basis for the structure of a new wound bed. Also, a deficiency of Vitamin C prolongs the healing time and contributes to reduced resistance to infection. Laboratory: Wound cultures (aerobic, anaerobic and fungal) collected to assess level of bacterial bioburden. Patient will be treated accordingly. Wound cultures are collected to assess level of bacterial bio-burden. Excessive bio-burden can result in inflammatory and proliferative phase stagnation as well as compromise of normal wound healing physiology. Bacterial proliferation, biofilm production, critical colonization and the development of resistant organism can lead to wound infection, wound deterioration and devastating tissue loss. Knowing the organism that populated the wound can help direct therapy, particularly anti-microbial dressing choices. Diagnostics: We will obtain PVRs of bilateral lower extremity to determine amount of compression that can be safely applied to the patient. Also, venous doppler study to evaluate for thermostat mechanic incompetence. Follow-up is scheduled in 1 week, sooner with any concerns or worsening symptoms. - See patient instructions for further recommendations. - Pt education along with discharge instructions given to patient - Discussed Red Flag signs and when to go to ER. - Pt agreeable with plan and verbalize understanding. Rabia Poe APRN.RE EXAMINER Charge Capture: [id number] Marivel Benton, RN, RN 08/21/2018 9:47 AM Addendum Nursing Note Debridement signature captured with risks explained per provider Review of New Patient Folder with signature captured See provider note for wound description and measurements Dressing removed In the presence and direction of the provider wound care as written below: Pedal pulses doppled per provider: Consent captured per provider for debridement good until January 2019 for Latoya ____- States his problem started with a scratch to his LLE calf posterior . MHO DM , obesity,.HTN, H/O smoking but not current. BiLE edema . Lives with a room mate, is in jail. Thickened and scaling on BiLE 1. Right first toe plantar surface, probes to bone: L 0.4Cm x W 1.2 Cm X D 0.6 Cm Cleaned with soap and water , Pack wound with vashe soaked gaze. Covered with 4x4 and conform gauze taped in place. 2. Left posterior calf: L 2.0cm x W 8.0 cm X D 0.1cm Area cleaned with soap and water,Cleaned with soap and water BiLE equal parts zinc oxide and hydrocortisone cream applied to lower legs, 4 layer compression wrap applied from one inch below the knee to base of toes. Covered with stockinet, blue socks given and shoe given for BiLE DARELL WRAP/SurePress/Tubi-teacher associate: Foot is warm and pink before and after application. It was demonstrated to the patient how to check for adequate circulation. Patient voices understanding. If circulation becomes compromised by a change in color, increased pain, numbness or tingling to the area, the patient knows to remove the compression and elevate the leg above the heart. Measurements: Right Calf: 56.5 had to be measured over pant leg Right Ankle: 33.5 Left Calf: 54.7 Left Ankle: 35.3 Length : Discussed with patient need for following a pipeman for foot care due to his diabetes, PLAN: Return to the wound center to see Latoya in one week. Make appt to see your primary care doctor for control of diabetes to assist in healing wound. Rx Keflex ,silvadene , lotrimin PVR and venous doppler studies to be scheduled. Patient to see Dr Salgado for foot care Bring all ointments with you to all appointments Please see your primary care doctor for your high blood pressure. Marivel Benton, RN, RN 08/21/2018 9:34 AM Addendum WOUND CARE INSTRUCTIONS- Derrell Hoyt Wound location: Right great toe Leave leg wraps in place clean and dry until return to wound center 1. Wash your hands with soap and water before and after wound care. 2. Gather all supplies needed. 3. Wash wound with Vashe. Pat dry. 4. Apply gauzed moistened with vashe to the wound base. 5. Cover with 4x4, . 6. Secure dressing with conform gauze 7. Change your dressing daily DARELL WRAP/SurePress/Tubi-teacher associate: Foot is warm and pink before and after application. It was demonstrated to the patient how to check for adequate circulation. Patient voices understanding. If circulation becomes compromised by a change in color, increased pain, numbness or tingling to the area, the patient knows to remove the compression and elevate the leg above the heart. To give your wound the best chance to heal: - Eat three balanced meals daily focusing on the protein - Control swelling by elevating the extremity above your heart - exercise the extremity - Control your blood sugar. Keep blood sugar less than 200 - Complete your wound care instructions - Vitamin C 500 mg twice daily - Multiple Vitamin Daily - Drink a protein shake daily : Premier ochoa Report any of the following changes to the Wound Center at [phone] or go to the Emergency Department:? Fever or chills ? Increased drainage ? Green or yellow drainage ? Foul odor ? Increased pain ? Hardness around the wound ? Redness, warmth or swelling of the surrounding tissue ? Color change to the wound PLAN: Return to the wound center to see Latoya in one week. Make appt to see your primary care doctor for control of diabetes to assist in healing wound. Rx Keflex ,silvadene , lotrimin given to patient PVR and venous doppler studies to be scheduled. Patient to see Dr Salgado for foot care Bring all ointments with you to all appointments Please see your primary care doctor about your high blood pressure. Rabia Poe/ monika Referring Provider: FRANCHESKA WAGNER ([facility]) [[id number]] Allergies As of Date: 08/21/2018 (No Known Allergies) Date Reviewed: 08/20/2018 Reviewed by: Barbara Ramsey) FAHEEM Lorenzo - Fully Assessed Reason for Visit: Wound Care [485] Cmt: left lower leg Primary Visit Diagnosis:Diabetic ulcer of toe of right foot associated with type 2 diabetes mellitus, with necrosis of muscle (HCC) [E11.621, L97.513] Other Visit Diagnoses:Non-pressure chronic ulcer of left lower leg, limited to breakdown of skin (HCC) [L97.921] Stasis edema of both lower extremities [I87.303] Lymphedema of both lower extremities [I89.0] Prescriptions as of 08/21/2018 Sig: SILVER SULFADIAZINE 1 % TOPIC* Apply to bilateral legs as di* ZINC OXIDE 22 % TOPICAL CREAM Apply to bilateral legs as di* Patient not taking: Reported on 08/25/2018 CEPHALEXIN 500 MG CAPSULE Take 1 capsule by mouth four * Patient not taking: Reported on 08/25/2018 LEVOTHYROXINE 300 MCG TABLET Take 1 tablet by mouth once d* SIMVASTATIN 80 MG TABLET Take 1 tablet by mouth daily * Patient not taking: Reported on 08/25/2018 BUPROPION HCL SR 150 MG TABLE* Take 1 tablet by mouth once d* Patient not taking: Reported on 08/25/2018 LISINOPRIL 10 MG TABLET Take 1 tablet by mouth once d* METFORMIN 500 MG TABLET Take 2 tablets by mouth twice* CITALOPRAM 40 MG TABLET Take 1 tablet by mouth once d* Patient not taking: Reported on 08/25/2018 BLOOD SUGAR DIAGNOSTIC STRIPS Test blood sugar(s) 1 times d* Patient not taking: Reported on 08/25/2018 BLOOD-GLUCOSE METER KIT Freestyle LITE Meter Kit - Patient taking differently: 1 Each three times daily. Pierre* LANCETS Test blood sugar(s) 2 times d* Patient taking differently: 1 Each three times daily. Dx:* CLOTRIMAZOLE 1 % TOPICAL CREAM Apply to bilateral legs as di* Patient not taking: Reported on 08/25/2018 LANSOPRAZOLE 30 MG DELAYED RE* Take 1 tablet by mouth twice * BISMUTH SUBSALICYLATE 262 MG * Take 1 tablet by mouth four t* ASPIRIN 81 MG TABLET,DELAYED * Take 1 tablet by mouth once d* ALBUTEROL SULFATE HFA 90 MCG/* Inhale 2 Puffs as instructed * Patient not taking: Reported on 08/20/2018 Problem List As Of Date 08/21/2018 Noted Resolved Hypertension [I10] INVALID FOR* Low HDL (under 40) [E78.6] INVALID FOR* Hyperglycemia [R73.9] INVALID FOR*01/17/2016 Diabetes mellitus type 2 in obese [E11.69, E66.*INVALID FOR* Goiter, nontoxic, multinodular [E04.2] INVALID FOR* Papillary thyroid carcinoma (HCC) [C73] INVALID FOR* Obesity, Class III, BMI 40-49.9 (morbid obesity*INVALID FOR* Other instructions from your clinician: WOUND CARE INSTRUCTIONS- Derrell Robert Hoyt Wound location: Right great toe Leave leg wraps in place clean and dry until return to wound center 1. Wash your hands with soap and water before and after wound care. 2. Gather all supplies needed. 3. Wash wound with Vashe. Pat dry. 4. Apply gauzed moistened with vashe to the wound base. 5. Cover with 4x4, . 6. Secure dressing with conform gauze 7. Change your dressing daily DARELL WRAP/SurePress/Tubi-teacher associate: Foot is warm and pink before and after application. It was demonstrated to the patient how to check for adequate circulation. Patient voices understanding. If circulation becomes compromised by a change in color, increased pain, numbness or tingling to the area, the patient knows to remove the compression and elevate the leg above the heart. To give your wound the best chance to heal: - Eat three balanced meals daily focusing on the protein - Control swelling by elevating the extremity above your heart - exercise the extremity - Control your blood sugar. Keep blood sugar less than 200 - Complete your wound care instructions - Vitamin C 500 mg twice daily - Multiple Vitamin Daily - Drink a protein shake daily : Premier ochoa Report any of the following changes to the Wound Center at [phone] or go to the Emergency Department:? Fever or chills ? Increased drainage ? Green or yellow drainage ? Foul odor ? Increased pain ? Hardness around the wound ? Redness, warmth or swelling of the surrounding tissue ? Color change to the wound PLAN: Return to the wound center to see Latoya in one week. Make appt to see your primary care doctor for control of diabetes to assist in healing wound. Rx Keflex ,silvadene , lotrimin given to patient PVR and venous doppler studies to be scheduled. Patient to see Dr Salgado for foot care Bring all ointments with you to all appointments Please see your primary care doctor about your high blood pressure. Rabia Poe/ monika Visit Notes: >> Marivel (Rn) CHIRAG Benton FriAug 21, 2018 8:50 AM Status: Addendum Nursing Note Debridement signature captured with risks explained per provider Review of New Patient Folder with signature captured See provider note for wound description and measurements Dressing removed In the presence and direction of the provider wound care as written below: Pedal pulses doppled per provider: Consent captured per provider for debridement good until January 2019 for Latoya States his problem started with a scratch to his LLE calf posterior . MHO DM , obesity,.HTN, H/O smoking but not current. BiLE edema . Lives with a room mate, is in jail. Thickened and scaling on BiLE 1. Right first toe plantar surface, probes to bone: L 0.4Cm x W 1.2 Cm X D 0.6 Cm Cleaned with soap and water , Pack wound with vashe soaked gaze. Covered with 4x4 and conform gauze taped in place. 2. Left posterior calf: L 2.0cm x W 8.0 cm X D 0.1cm Area cleaned with soap and water,Cleaned with soap and water BiLE equal parts zinc oxide and hydrocortisone cream applied to lower legs, 4 layer compression wrap applied from one inch below the knee to base of toes. Covered with stockinet, blue socks given and shoe given for BiLE DARELL WRAP/SurePress/Tubi-teacher associate: Foot is warm and pink before and after application. It was demonstrated to the patient how to check for adequate circulation. Patient voices understanding. If circulation becomes compromised by a change in color, increased pain, numbness or tingling to the area, the patient knows to remove the compression and elevate the leg above the heart. Measurements: Right Calf: 56.5 had to be measured over pant leg Right Ankle: 33.5 Left Calf: 54.7 Left Ankle: 35.3 Length : Discussed with patient need for following a pipeman for foot care due to his diabetes, PLAN: Return to the wound center to see Latoya in one week. Make appt to see your primary care doctor for control of diabetes to assist in healing wound. Rx Keflex ,silvadene , lotrimin PVR and venous doppler studies to be scheduled. Patient to see Dr Salgado for foot care Bring all ointments with you to all appointments Please see your primary care doctor for your high blood pressure. Marivel Benton RN Encounter Status:Closed by RABIA POE on 08/31/18 [facility] PROGRESSon 08-21-2018 Protein mass conc HNO ID: [id number] Author: Rabia Herman) Consuelo Service: ? Author Type: Nurse Practitioner Type: Progress Notes Filed: 10/03/2018 2:53 PM Note Text: DATE OF CONSULTATION: 08/21/2018 REQUESTING PHYSICIAN: Francheska Wagner CNP CONSULTING PROVIDER: Rabia Poe APRN.CNP REASON FOR CONSULTATION: Non-healing wounds of the right great toe and left lower leg. HISTORY OF PRESENT ILLNESS: Derrell Hoyt is a 53 year old male who presents to the [facility] for further evaluation and management of non-healing wounds involving the left lower leg and right diabetic foot ulcer. PAST MEDICAL HISTORY Diagnosis Date - Depression - DM (diabetes mellitus) (HCC) - HTN (hypertension) - Multinodular goiter 01/2015 - Papillary thyroid carcinoma (HCC) 01/2015 PAST SURGICAL HISTORY Procedure Laterality Date - ; THYROIDECTOMY TOTAL OR COMPLETE 04/2015 - KNEE LEFT OP SURGERY 1998 benign tumor - TONSILLECTOMY AND ADENOIDECTOMY HX 73 MEDICATIONS: silver sulfADIAZINE (SILVADENE) 1 % cream Apply to bilateral legs as directed zinc oxide 22 % crea Apply to bilateral legs as directed. levothyroxine (SYNTHROID) 300 mcg tablet Take 1 tablet by mouth once daily. simvastatin (ZOCOR) 80 mg tablet Take 1 tablet by mouth daily at bedtime. buPROPion SR (ZYBAN SR; WELLBUTRIN SR) 150 mg 12 hr tablet Take 1 tablet by mouth once daily. lisinopril (PRINIVIL) 10 mg tablet Take 1 tablet by mouth once daily. metFORMIN (GLUCOPHAGE) 500 mg tablet Take 2 tablets by mouth twice daily with meals. citalopram (CELEXA) 40 mg tablet Take 1 tablet by mouth once daily. blood sugar diagnostic (FREESTYLE LITE STRIPS) test strip Test blood sugar(s) 1 times daily. Dx: Type 2 diabetes E11.9. Blood-Glucose Meter (FREESTYLE LITE METER) monitoring kit Freestyle LITE Meter Kit - Lancets (FREESTYLE LANCETS) lancets Test blood sugar(s) 2 times daily. Dx: DM 250.0 Insulin: No sulfamethoxazole-trimetho prim (BACTRIM DS) 800-160 mg per tablet Take 1 tablet by mouth twice daily. doxycycline monohydrate (MONODOX) 100 mg capsule Take 1 capsule by mouth twice daily for 10 days. doxycycline monohydrate (MONODOX) 100 mg capsule Take 1 capsule by mouth twice daily for 10 days. clotrimazole (LOTRIMIN, CLOTRIM) 1 % cream Apply to bilateral legs as directed lansoprazole orally disintegrating (PREVACID) 30 mg disintegrating tablet Take 1 tablet by mouth twice daily for 14 days. bismuth subsalicylate (PEPTO-BISMOL) 262 mg chew Take 1 tablet by mouth four times daily for 14 days. aspirin, enteric coated (ASPIRIN, ENTERIC COATED) 81 mg EC tablet Take 1 tablet by mouth once daily. albuterol HFA (PROAIR HFA) 90 mcg/actuation inhaler Inhale 2 Puffs as instructed every 6 hours as needed for Wheezing/Shortness of Breath. ALLERGIES No Known Allergies FAMILY HISTORY Problem Relation Age of Onset - Heart Father valve disease - Cancer Paternal Grandfather pancreatic, alcoholic - Alcohol/Drug Father - Hypertension Paternal Grandmother - Prostate Cancer Paternal Grandfather - Colon Cancer Paternal Uncle - Heart Mother - Heart Paternal Grandmother - Alcohol/Drug Mother Social History Tobacco Use - Smoking status: Former Smoker Packs/day: 1.00 Years: 10.00 Pack years: 10.00 Types: Cigars Last attempt to quit: 09/07/2010 Years since quittin.9 - Smokeless tobacco: Never Used - Tobacco comment: occasionally Substance Use Topics - Alcohol use: No Comment: quit, hx of - Drug use: No REVIEW OF SYSTEM: PAIN ASSESSMENT: Negative for pain, history of chronic pain, or current treatment for a chronic pain condition. GENERAL: No weight loss, malaise or fevers HEENT: Negative for frequent or significant headaches, No changes in hearing or vision, no nose bleeds or other nasal problems NECK: Negative for lumps, goiter, pain and significant neck swelling RESPIRATORY: Negative for cough, hemoptysis, wheezing, COPD, dyspnea or shortness of breath CARDIOVASCULAR: Negative for chest pain, leg swelling, hypertension, CHF or palpitations GI: No nausea, vomiting, or diarrhea : No history of dysuria, frequency or incontinence MUSCULOSKELETAL: Negative for joint pain or swelling, back pain or muscle pain SKIN: As per HPI. Negative for any other lesions, rash, and itching PSYCH: Negative for sleep disturbance, mood disorder and recent psychosocial stressors HEMATOLOGY/LYMPHOLOGY: Negative for prolonged bleeding, bruising easily or swollen nodes ENDOCRINE: Negative for cold or heat intolerance, polyuria, polydipsia and goiter NEURO: No history of headaches, syncope, paralysis, seizures or tremors 08/21/18 0815 08/21/18 0818 BP: (!) 203/94 195/95 Pulse: 97 Resp: 18 Temp: 36.7 ?C (98.1 ?F) TempSrc: Oral SpO2: 97% PHYSICAL EXAMINATION: Constitutional: Alert and in no acute distress. Well developed, well nourished. HEENT: Head and face normal. Sclera non-icteric, EOM intact, Normal nasal mucosa, septum, and turbinates: Normal oropharynx. Comments: Neck: Supple, no bruit, no masses, thyroid not enlarged. Comments: Chest: Lungs clear to auscultation, no accessory muscle use for respiration Comments: Heart: Regular rate/rhythm, normal S1,S2, no murmur, rubs or gallops Comments: Abdomen: Soft, non-tender, non-distended, + bowel sounds, no bruit, no organomegaly Comments: Extremities: No clubbing, no cyanosis of fingers. Lower extremities normal strength. Dorsalis pedis : Present (Y) Absent Diminished Doppler Posterior Tibialis: Present (Y) Absent Diminished Doppler Capillary Refill: < 3 sec. (Y) > 3 sec. ABIs: Right Left Rubor of Dependency: Negative (Y) Positive (N) [place] Examination: Comments: Edema Right Calf: 56.5 had to be measured over pant leg Right Ankle: 33.5 Left Calf: 54.7 Left Ankle: 35.3 Length : Skin: Normal skin color and pigmentation, normal skin turgor, and no rash. See Wound Assessment . Neurologic: Cortical function: Normal. Comments: Psychiatric: Judgment and insight: Intact. Mood and affect: Normal. Comments: Lymphatic: No cervical lymphadenopathy. Comments: Most recent laboratory data: Hemoglobin A1C = ?? WBC , Hgb , Hct , PLT , Glu , BUN , Cr , Na , K , Cl , Albumin , Total protein WOUND ASSESSMENT: Wound Number: 1 First Assessed Date: 08/20/18 Pre-existing: YES Location: Foot Orientation: Right great toe plantar aspect Wound Etiology: Diabetic Depth of Tissue Injury (Non-pressure): Full ThicknessPartial Thickness Diabetic Wounds:N/A Pressure Injury: N/A Pre-debridement Measurements Initial (First Visit): 0.4 cm length x 1.0 cm width x eschar covered cm depth Post-debridement Measurements (Current): L 0.4 cm x W 1.2 cm X D 0.6 cm % Healing Rate/#Weeks: Initial assessment Wound Bed (Pre-debridement): Leola Wound Bed (Post-debridement): N/A Undermining: No Tunneling: No Tendon/bone exposed: NO Wound Edge/Margins: Well-defined wound edges, Edge attached to base, Epiboly/rolled and Fibrotic scarred Periwound Tissue: Dry,flaky, impaired and Edema Exudate Amount:Scant/Minimal Consistency:Serous Odor:None Localized s/s: None Systemic s/s: None Local/systemic Rx: None Wound Healing Status: Chronic Clinically presenting as: Stalled wound healing Wound Number: 2 First Assessed Date: 08/20/18 Pre-existing: YES Location: Leg Orientation: Left and Posterior Calf Wound Etiology: Venous Depth of Tissue Injury (Non-pressure): Partial Thickness Diabetic Wounds:N/A Pressure Injury: N/A Pre-debridement Measurements Initial (First Visit): 0.2 cm length x 0.8 cm width x 0.1 cm depth Pre-debridement Measurements (Current): N/A % Healing Rate/#Weeks: Week 1 -- Wound Bed (Pre-debridement): Red Wound Bed (Post-debridement): N/A Undermining: No Tunneling: No Tendon/bone exposed: NO Wound Edge/Margins: Well-defined wound edges, Edge attached to base and Fibrotic scarred Periwound Tissue: Normal, intact,uninvolved tissue Exudate Amount:Moderate Consistency:Serous Odor:None Localized s/s: Non-healing Systemic s/s: None Local/systemic Rx: None Wound Healing Status: Chronic Clinically presenting as: Stalled wound healing IMPRESSION: 1. Right diabetic foot ulcer, iqbal grade 2, stable with no evidence of active infection. 2. Partial thickness wound (stasis) of the left lower leg in the setting of chronic venous insufficiency with secondary lymphedema. 3. Multiple risk factors or co-morbidities that may contribute to wound healing difficulties include obesity, diabetes mellitus, hypertension, depression and obesity. TREATMENT PLAN: Debridement Type: Autolytic Enzymatic Mechanical Surgical Sharp (N) Other: ?? Wound Dressing: See Nursing Notes for details. . Local Tx: 1. Right first toe plantar surface, Cleaned with soap and water , Pack wound with vashe soaked gaze. Covered with 4x4 and conform gauze taped in place. 2. Left posterior calf: Area cleaned with soap and water,Cleaned with soap and water Equal parts zinc oxide and hydrocortisone cream applied to lower legs, 4 layer compression wrap applied from one inch below the knee to base of toes. Covered with stockinet, blue socks given and shoe given for BiLE Discussed with patient need for following a pipeman for foot care due to his diabetes, Systemic Rx: Keflex, Lotrimin, Silvadene cream Decongestive Management: Discussed management consisting of decongestive phase to decrease volume of the legs and maintenance when patient will be fitted for appropriate compression garments. Tissue edema compresses and further compromises the microcirculation, adding insult by decreasing O2 and nutrient delivery to the tissues. These factors synergistically threaten wound healing by contributing to the progression of infectious processes and by causing additional tissue necrosis. Right LE/UE: 4-layer Left LE/UE: 4-layer Nutritional Support: MVI, Zinc Supplement and Protein Supplement Patient is instructed to continue a healthy, well-balanced diet for nutritional support for optimal healing. Protein is the most important nutrient for wound healing. Eating adequate amounts of protein allows the body to create new cells and chemicals to heal the wound, and increases the body?s ability to fight infection. Eating high protein foods daily is recommended such as: lean meats, fish, poultry, cheese, milk, yogurt, eggs and legumes. Vitamins and minerals provide a full range of nutrients for wound healing. It can help jump start the body's production of cells and chemicals needed for healing. Vitamins and minerals can be obtained through healthy foods in your diet and by taking a multiple vitamin supplement. Vitamin C is essential for collagen synthesis. Collagen and fibroblasts compose the basis for the structure of a new wound bed. Also, a deficiency of Vitamin C prolongs the healing time and contributes to reduced resistance to infection. Laboratory: Wound cultures (aerobic, anaerobic and fungal) collected to assess level of bacterial bioburden. Patient will be treated accordingly. Wound cultures are collected to assess level of bacterial bio-burden. Excessive bio-burden can result in inflammatory and proliferative phase stagnation as well as compromise of normal wound healing physiology. Bacterial proliferation, biofilm production, critical colonization and the development of resistant organism can lead to wound infection, wound deterioration and devastating tissue loss. Knowing the organism that populated the wound can help direct therapy, particularly anti-microbial dressing choices. Diagnostics: We will obtain PVRs of bilateral lower extremity to determine amount of compression that can be safely applied to the patient. Also, venous doppler study to evaluate for thermostat mechanic incompetence. Follow-up is scheduled in 1 week, sooner with any concerns or worsening symptoms. - See patient instructions for further recommendations. - Pt education along with discharge instructions given to patient - Discussed Red Flag signs and when to go to ER. - Pt agreeable with plan and verbalize understanding. Rabia Poe, FABRIC WORKER SUPERVISOR.RE EXAMINER Charge Capture: [id number] Normal [facility] Anaerobe Cultureon 9 Anaerobe Culture Sp. Request/Comment: - Eswab Culture Result - Moderate Mixed anaerobic danielle --> ABNORMAL ALERT No Clostridium perfringens isolated No Bacteroides fragilis group isolated. Critically abnormal [facility] Comment on above: Performed By: #### A AC #### [facility] [address] [place], [place] [address] CNOVon 08-20-2018 CNOV Office Visit ([facility] ) ----- DERRELL HOYT ([id number]) 1965 M Date Time Provider Department 08/20/18 1:00 PM RABIA POE (SOLITARIO) [facility] During your visit today, we recorded the following information about you: Rabia Poe APRN.CNP 09/03/2018 6:14 AM Signed A time out was performed immediately prior to procedure start with the wound care team, correctly identifying the patient name, date of , procedure, anatomy, patient position, safety precautions, and procedure-specific equipment needs. The procedure was explained to the patient including the risks, benefits and alternatives. The risks, including but not limited to infection and bleeding, were reviewed by this provider and the patient agreed to undergo the procedure. After providing local analgesia with Lidocaine 2% gel, a selective debridement of the left posterior calf wound was performed, using a sterile #15 blade, iris scissors, and forceps to remove the non-viable or devitalized tissue, the total surface area of which is (< 20 sq cm). The patient tolerated the procedure well without complications. Hemostasis was achieved with direct pressure. The wound/s was/were then copiously irrigated with sterile normal saline and dressings were applied. Rabia Poe APRN.CNP 09/03/2018 6:14 AM Signed DATE OF CONSULTATION: 08/20/2018 REQUESTING PHYSICIAN: Francheska Wagner CNP CONSULTING PROVIDER: Rabia Poe APRN.CNP REASON FOR CONSULTATION: Non-healing left calf stasis ulcer and right diabetic great toe ulcer. HISTORY OF PRESENT ILLNESS: Derrell Hoyt is a 53 year old male who presents to the [facility] for further evaluation and management of non-healing wounds involving his left [posterior calf and right great toe, plantar aspect. PAST MEDICAL HISTORY Diagnosis Date - Depression - DM (diabetes mellitus) (HCC) - HTN (hypertension) - Multinodular goiter 01/2015 - Papillary thyroid carcinoma (HCC) 01/2015 PAST SURGICAL HISTORY Procedure Laterality Date - ; THYROIDECTOMY TOTAL OR COMPLETE 04/2015 - KNEE LEFT OP SURGERY 1998 benign tumor - TONSILLECTOMY AND ADENOIDECTOMY HX 73 MEDICATIONS: levothyroxine (SYNTHROID) 300 mcg tablet Take 1 tablet by mouth once daily. simvastatin (ZOCOR) 80 mg tablet Take 1 tablet by mouth daily at bedtime. buPROPion SR (ZYBAN SR; WELLBUTRIN SR) 150 mg 12 hr tablet Take 1 tablet by mouth once daily. lisinopril (PRINIVIL) 10 mg tablet Take 1 tablet by mouth once daily. metFORMIN (GLUCOPHAGE) 500 mg tablet Take 2 tablets by mouth twice daily with meals. citalopram (CELEXA) 40 mg tablet Take 1 tablet by mouth once daily. blood sugar diagnostic (FREESTYLE LITE STRIPS) test strip Test blood sugar(s) 1 times daily. Dx: Type 2 diabetes E11.9. Blood-Glucose Meter (FREESTYLE LITE METER) monitoring kit Freestyle LITE Meter Kit - Lancets (FREESTYLE LANCETS) lancets Test blood sugar(s) 2 times daily. Dx: DM 250.0 Insulin: No sulfamethoxazole-trimetho prim (BACTRIM DS) 800-160 mg per tablet Take 1 tablet by mouth twice daily. doxycycline monohydrate (MONODOX) 100 mg capsule Take 1 capsule by mouth twice daily for 10 days. doxycycline monohydrate (MONODOX) 100 mg capsule Take 1 capsule by mouth twice daily for 10 days. silver sulfADIAZINE (SILVADENE) 1 % cream Apply to bilateral legs as directed clotrimazole (LOTRIMIN, CLOTRIM) 1 % cream Apply to bilateral legs as directed zinc oxide 22 % crea Apply to bilateral legs as directed. lansoprazole orally disintegrating (PREVACID) 30 mg disintegrating tablet Take 1 tablet by mouth twice daily for 14 days. bismuth subsalicylate (PEPTO-BISMOL) 262 mg chew Take 1 tablet by mouth four times daily for 14 days. aspirin, enteric coated (ASPIRIN, ENTERIC COATED) 81 mg EC tablet Take 1 tablet by mouth once daily. albuterol HFA (PROAIR HFA) 90 mcg/actuation inhaler Inhale 2 Puffs as instructed every 6 hours as needed for Wheezing/Shortness of Breath. ALLERGIES No Known Allergies FAMILY HISTORY Problem Relation Age of Onset - Heart Father valve disease - Cancer Paternal Grandfather pancreatic, alcoholic - Alcohol/Drug Father - Hypertension Paternal Grandmother - Prostate Cancer Paternal Grandfather - Colon Cancer Paternal Uncle - Heart Mother - Heart Paternal Grandmother - Alcohol/Drug Mother Social History Tobacco Use - Smoking status: Former Smoker Packs/day: 1.00 Years: 10.00 Pack years: 10.00 Types: Cigars Last attempt to quit: 09/07/2010 Years since quittin.9 - Smokeless tobacco: Never Used - Tobacco comment: occasionally Substance Use Topics - Alcohol use: No Comment: quit, hx of - Drug use: No REVIEW OF SYSTEM: PAIN ASSESSMENT: Negative for pain, history of chronic pain, or current treatment for a chronic pain condition. GENERAL: No weight loss, malaise or fevers HEENT: Negative for frequent or significant headaches, No changes in hearing or vision, no nose bleeds or other nasal problems NECK: Negative for lumps, goiter, pain and significant neck swelling RESPIRATORY: Negative for cough, hemoptysis, wheezing, COPD, dyspnea or shortness of breath CARDIOVASCULAR: Negative for chest pain, leg swelling, hypertension, CHF or palpitations GI: No nausea, vomiting, or diarrhea : No history of dysuria, frequency or incontinence MUSCULOSKELETAL: Negative for joint pain or swelling, back pain or muscle pain SKIN: As per HPI. Negative for any other lesions, rash, and itching PSYCH: Negative for sleep disturbance, mood disorder and recent psychosocial stressors HEMATOLOGY/LYMPHOLOGY: Negative for prolonged bleeding, bruising easily or swollen nodes ENDOCRINE: Negative for cold or heat intolerance, polyuria, polydipsia and goiter NEURO: No history of headaches, syncope, paralysis, seizures or tremors There were no vitals filed for this visit. PHYSICAL EXAMINATION: Constitutional: Alert and in no acute distress. Well developed, well nourished. HEENT: Head and face normal. Sclera non-icteric, EOM intact, Normal nasal mucosa, septum, and turbinates: Normal oropharynx. Comments: Neck: Supple, no bruit, no masses, thyroid not enlarged. Comments: Chest: Lungs clear to auscultation, no accessory muscle use for respiration Comments: Heart: Regular rate/rhythm, normal S1,S2, no murmur, rubs or gallops Comments: Abdomen: Soft, non-tender, non-distended, + bowel sounds, no bruit, no organomegaly Comments: Extremities: No clubbing, no cyanosis of fingers. Lower extremities normal strength. Dorsalis pedis : Present (Y) Absent Diminished Doppler Posterior Tibialis: Present (Y) Absent Diminished Doppler Capillary Refill: < 3 sec. (Y) > 3 sec. ABIs: Right Left Rubor of Dependency: Negative (Y) Positive (N) [place] Examination: Comments: Edema Measurements: Right Calf: 56.5 had to be measured over pant leg Right Ankle: 33.5 Left Calf: 54.7 Left Ankle: 35.3 Length : Skin: Normal skin color and pigmentation, normal skin turgor, and no rash. See Wound Assessment . Neurologic: Cortical function: Normal. Comments: Psychiatric: Judgment and insight: Intact. Mood and affect: Normal. Comments: Lymphatic: No cervical lymphadenopathy. Comments: Most recent laboratory data: Hemoglobin A1C = ?? WBC , Hgb , Hct , PLT , Glu , BUN , Cr , Na , K , Cl , Albumin , Total protein WOUND ASSESSMENT: IMPRESSION: 1. TREATMENT PLAN: Debridement Type: Autolytic Enzymatic Mechanical Surgical Sharp (Y) Other: ?? Sharp debridement is performed to freshen up the wound and stimulate the healing cascade. It allows the wound to progress from the inflammatory to the proliferative phase of wound healing. Wound Dressing: See Nursing Notes for details. . Local Tx: 1. Right first toe plantar surface, probes to bone: L 0.4Cm x W 1.2 Cm X D 0.6 Cm Cleaned with soap and water , Wound culture obtained. Pack wound with vashe soaked gaze. Covered with 4x4 and conform gauze taped in place. 2. Left posterior calf: L 2.0cm x W 8.0 cm X D 0.1cm Area cleaned with soap and water,Selective debridement per provider to posterior calf 25cm x 25cm . culture obtained Cleaned with vashe, applied antibiotic oint to open areas. Blood work ordered CBC/D, CRP, Sed rate, prealbumin CMP, HgA1C, xray also ordered Please get xray and blood work done today PVR and venous doppler studies to be scheduled. Patient to see Dr Salgado for foot care Rx Silvadene oint Rx Clotrimazole Systemic Rx: Keflex as prescribed. Decongestive Management: Discussed management consisting of decongestive phase to decrease volume of the legs and maintenance when patient will be fitted for appropriate compression garments. Tissue edema compresses and further compromises the microcirculation, adding insult by decreasing O2 and nutrient delivery to the tissues. These factors synergistically threaten wound healing by contributing to the progression of infectious processes and by causing additional tissue necrosis. Right LE/UE: Left LE/UE: Nutritional Support: MVI, Zinc Supplement and Protein Supplement as directed. Patient is instructed to continue a healthy, well-balanced diet for nutritional support for optimal healing. Protein is the most important nutrient for wound healing. Eating adequate amounts of protein allows the body to create new cells and chemicals to heal the wound, and increases the body?s ability to fight infection. Eating high protein foods daily is recommended such as: lean meats, fish, poultry, cheese, milk, yogurt, eggs and legumes. Vitamins and minerals provide a full range of nutrients for wound healing. It can help jump start the body's production of cells and chemicals needed for healing. Vitamins and minerals can be obtained through healthy foods in your diet and by taking a multiple vitamin supplement. Vitamin C is essential for collagen synthesis. Collagen and fibroblasts compose the basis for the structure of a new wound bed. Also, a deficiency of Vitamin C prolongs the healing time and contributes to reduced resistance to infection. Laboratory: Wound cultures (aerobic, anaerobic and fungal) collected to assess level of bacterial bioburden. Patient will be treated accordingly. Wound cultures are collected to assess level of bacterial bio-burden. Excessive bio-burden can result in inflammatory and proliferative phase stagnation as well as compromise of normal wound healing physiology. Bacterial proliferation, biofilm production, critical colonization and the development of resistant organism can lead to wound infection, wound deterioration and devastating tissue loss. Knowing the organism that populated the wound can help direct therapy, particularly anti-microbial dressing choices. Follow-up is scheduled in 1 week, sooner with any concerns or worsening symptoms. - See patient instructions for further recommendations. - Pt education along with discharge instructions given to patient - Discussed Red Flag signs and when to go to ER. - Pt agreeable with plan and verbalize understanding. RISKS AND BENEFITS OF ADVANCED WOUND CARE: At the time of the initial consultation, the risks and benefits of advanced wound care were discussed with the patient. The benefits, including enhancement of wound healing and the potential risks, including enhancement of wound healing and the potential risks, including mild to moderate pain, the risk of infection, and the potential deterioration of the wound were discussed and explained in detail. The need for periodic wound debridement, obtaining wound cultures and the use of digital photography to document wound progress was also discussed. The patient expressed an understanding of this discussion and was given the opportunity to have questions answered. Verbal acknowledgement of this understanding and consent prior to treatment was obtained. Thank you, Francheska Wagner CNP, for inviting us participate in the care of this patient. We appreciate the opportunity to assist. Please do not hesitate to call with any questions or concerns you may have regarding this patient's current and future wound care. Rabia Poe APRN.[facility] Charge Capture: [id number] aMrivel Benton, RN, RN 08/20/2018 2:40 PM Addendum Nursing Note Debridement signature captured with risks explained per provider Review of New Patient Folder with signature captured See provider note for wound description and measurements Dressing removed In the presence and direction of the provider wound care as written below: Pedal pulses doppled per provider: Consent captured per provider for debridement good until January 2019 for Latoya ____- States his problem started with a scratch to his LLE calf posterior . MHO DM , obesity,.HTN, H/O smoking but not current. BiLE edema . Lives with a room mate, is in jail. Thickened and scaling on BiLE BiLE toes: nails on toes trimmed, with nail clippers. Selective debridement per provider to the Left calf area 1. Right first toe plantar surface, probes to bone: L 0.4Cm x W 1.2 Cm X D 0.6 Cm Cleaned with soap and water , Wound culture obtained. Pack wound with vashe soaked gaze. Covered with 4x4 and conform gauze taped in place. 2. Left posterior calf: L 2.0cm x W 8.0 cm X D 0.1cm Area cleaned with soap and water,Selective debridement per provider to posterior calf 25cm x 25cm . culture obtained Cleaned with vashe, applied antibiotic oint to open areas. Measurements: Right Calf: 56.5 had to be measured over pant leg Right Ankle: 33.5 Left Calf: 54.7 Left Ankle: 35.3 Length : Discussed with patient need for following a pipeman for foot care due to his diabetes, PLAN: Return to the wound center to see Latoya on Friday Blood work ordered CBC/D, CRP, Sed rate, prealbumin CMP, HgA1C, xray also ordered Please get xray and blood work done today Rx Keflex PVR and venous doppler studies to be scheduled. Patient to see Dr Salgado for foot care Rx Silvadene oint Rx Clotrimazole Possible plan for next visits applying Equal amounts silvadene, clobetasol, zinc oxide and apply leg excoriations UNIVERSAL PROTOCOL / SAFETY CHECKLIST Procedure to be performed: Sharp debridement of LLE wound Sign in Communication: 1322 Time Out: Team Confirms the Correct Patient, Correct Procedure, Correct Site and Site Marking, Correct Position (if applicable), Prep and Dry Time (if applicable). Time: 1325 Affirmation of Time Out: 1355 Sign Out Discussion: Procedure completed and the patient tolerated it well without complications. Marivel Benton RN EDUCATION: The patient/family was instructed how to wash the wound(s) with dial soap, rinsing with water, AND patting dry. Visual demonstration on how to apply the dressing. Signs AND symptoms of infection were reviewed: Increased redness, swelling, pain, green, yellow drainage, fever or chills all would need to be evaluated by a Physician. Patient received typed homegoing wound care instructions and has expressed intent to comply. Marivel Benton, RN, RN 08/20/2018 2:27 PM Signed WOUND CARE INSTRUCTIONS- Derrell Jones Hoyt Wound location: Right great toe 1. Wash your hands with soap and water before and after wound care. 2. Gather all supplies needed. 3. Wash wound with Vashe. Pat dry. 4. Apply gauzed moistened with vashe to the wound base. 5. Cover with 4x4, . 6. Secure dressing with conform gauze 7. Change your dressing daily To give your wound the best chance to heal: - Eat three balanced meals daily focusing on the protein - Control swelling by elevating the extremity above your heart - exercise the extremity - Control your blood sugar. Keep blood sugar less than 200 - Complete your wound care instructions - Vitamin C 500 mg twice daily - Multiple Vitamin Daily - Drink a protein shake daily : Premier ochoa Report any of the following changes to the Wound Center at [phone] or go to the Emergency Department:? Fever or chills ? Increased drainage ? Green or yellow drainage ? Foul odor ? Increased pain ? Hardness around the wound ? Redness, warmth or swelling of the surrounding tissue ? Color change to the wound PLAN: Return to the wound center to see Latoya on Friday this week Blood work ordered CBC/D, CRP, Sed rate, prealbumin CMP, HgA1C, xray also ordered Please get xray and blood work done today Rx Keflex PVR and venous doppler studies to be scheduled. Patient to see Dr Salgado for foot care Rx Silvadene oint Rx Clobetasol Rabia Poe/ monika Referring Provider: FRANCHESKA WAGNER ([facility]) [[id number]] Allergies As of Date: 08/20/2018 (No Known Allergies) Date Reviewed: 08/20/2018 Reviewed by: Barbara Ramsey) FAHEEM Lorenzo - Fully Assessed Reason for Visit: Wound Evaluation [1021] Cmt: left lower leg Primary Visit Diagnosis:Diabetic ulcer of toe of right foot associated with type 2 diabetes mellitus, with necrosis of muscle (HCC) [E11.621, L97.513] Order(s):WOUND CULTURE AND GRAM STAIN [SQWCUL] Order #: [id number]. #:[id number] ANAEROBE CULTURE [SQANACUL] Order #: [id number]. #:[id number] FUNGAL CULTURE [SQFCUL] Order #: [id number]. #:[id number] CBC + DIFF [SQCBCDIF] Order #: [id number] FUTURE COMP METABOLIC PANEL [SQCMP] Order #: [id number] FUTURE SED RATE WESTERGREN [SQWSR] Order #: [id number] FUTURE C-REACTIVE PROTEIN (CRP) [SQCRP] Order #: [id number] FUTURE HGB A1C [YXIHR7N] Order #: [id number] FUTURE PREALBUMIN BLD [SQPREALB] Order #: [id number] FUTURE ZINC BLD [SQZINC] Order #: [id number] FUTURE XR FOOT GENERAL 3V AP/LAT/OBL RT [[id number]] Order #: [id number] FUTURE WOUND CULTURE AND GRAM STAIN [SQWCUL] Order #: [id number]. #:[id number] silver sulfADIAZINE (SILVADENE) 1 % creamApply to bilateral legs as directedDisp: 85 gRfl: 1 clotrimazole (LOTRIMIN, CLOTRIM) 1 % creamApply to bilateral legs as directedDisp: 113 gRfl: 1 zinc oxide 22 % creaApply to bilateral legs as directed.Disp: 113 gRfl: 1 [] cephALEXin (KEFLEX) 500 mg capsuleTake 1 capsule by mouth four times daily for 10 days.Disp: 40 capsuleRfl: 0 Prescriptions as of 08/20/2018 Sig: LEVOTHYROXINE 300 MCG TABLET Take 1 tablet by mouth once d* SIMVASTATIN 80 MG TABLET Take 1 tablet by mouth daily * Patient not taking: Reported on 08/25/2018 BUPROPION HCL SR 150 MG TABLE* Take 1 tablet by mouth once d* Patient not taking: Reported on 08/25/2018 LISINOPRIL 10 MG TABLET Take 1 tablet by mouth once d* METFORMIN 500 MG TABLET Take 2 tablets by mouth twice* CITALOPRAM 40 MG TABLET Take 1 tablet by mouth once d* Patient not taking: Reported on 08/25/2018 BLOOD SUGAR DIAGNOSTIC STRIPS Test blood sugar(s) 1 times d* Patient not taking: Reported on 08/25/2018 BLOOD-GLUCOSE METER KIT Freestyle LITE Meter Kit - Patient taking differently: 1 Each three times daily. Pierre* LANCETS Test blood sugar(s) 2 times d* Patient taking differently: 1 Each three times daily. Dx:* SILVER SULFADIAZINE 1 % TOPIC* Apply to bilateral legs as di* CLOTRIMAZOLE 1 % TOPICAL CREAM Apply to bilateral legs as di* Patient not taking: Reported on 08/25/2018 ZINC OXIDE 22 % TOPICAL CREAM Apply to bilateral legs as di* Patient not taking: Reported on 08/25/2018 CEPHALEXIN 500 MG CAPSULE Take 1 capsule by mouth four * Patient not taking: Reported on 08/25/2018 LANSOPRAZOLE 30 MG DELAYED RE* Take 1 tablet by mouth twice * BISMUTH SUBSALICYLATE 262 MG * Take 1 tablet by mouth four t* ASPIRIN 81 MG TABLET,DELAYED * Take 1 tablet by mouth once d* ALBUTEROL SULFATE HFA 90 MCG/* Inhale 2 Puffs as instructed * Patient not taking: Reported on 08/20/2018 Problem List As Of Date 08/20/2018 Noted Resolved Hypertension [I10] INVALID FOR* Low HDL (under 40) [E78.6] INVALID FOR* Hyperglycemia [R73.9] INVALID FOR*01/17/2016 Diabetes mellitus type 2 in obese [E11.69, E66.*INVALID FOR* Goiter, nontoxic, multinodular [E04.2] INVALID FOR* Papillary thyroid carcinoma (HCC) [C73] INVALID FOR* Obesity, Class III, BMI 40-49.9 (morbid obesity*INVALID FOR* Other instructions from your clinician: WOUND CARE INSTRUCTIONS- Derrell Hoyt Wound location: Right great toe 1. Wash your hands with soap and water before and after wound care. 2. Gather all supplies needed. 3. Wash wound with Vashe. Pat dry. 4. Apply gauzed moistened with vashe to the wound base. 5. Cover with 4x4, . 6. Secure dressing with conform gauze 7. Change your dressing daily To give your wound the best chance to heal: - Eat three balanced meals daily focusing on the protein - Control swelling by elevating the extremity above your heart - exercise the extremity - Control your blood sugar. Keep blood sugar less than 200 - Complete your wound care instructions - Vitamin C 500 mg twice daily - Multiple Vitamin Daily - Drink a protein shake daily : Premier ochoa Report any of the following changes to the Wound Center at [phone] or go to the Emergency Department:? Fever or chills ? Increased drainage ? Green or yellow drainage ? Foul odor ? Increased pain ? Hardness around the wound ? Redness, warmth or swelling of the surrounding tissue ? Color change to the wound PLAN: Return to the wound center to see Latoya on Friday this week Blood work ordered CBC/D, CRP, Sed rate, prealbumin CMP, HgA1C, xray also ordered Please get xray and blood work done today Rx Keflex PVR and venous doppler studies to be scheduled. Patient to see Dr Salgado for foot care Rx Silvadene oint Rx Clobetasol Rabia Poe/ monika Visit Notes: >> Marivel (Rn) CHIRAG Benton [facility] Aug 20, 2018 1:19 PM Status: Addendum Nursing Note Debridement signature captured with risks explained per provider Review of New Patient Folder with signature captured See provider note for wound description and measurements Dressing removed In the presence and direction of the provider wound care as written below: Pedal pulses doppled per provider: Consent captured per provider for debridement good until January 2019 for Latoya States his problem started with a scratch to his LLE calf posterior . MHO DM , obesity,.HTN, H/O smoking but not current. BiLE edema . Lives with a room mate, is in jail. Thickened and scaling on BiLE BiLE toes: nails on toes trimmed, with nail clippers. Selective debridement per provider to the Left calf area 1. Right first toe plantar surface, probes to bone: L 0.4Cm x W 1.2 Cm X D 0.6 Cm Cleaned with soap and water , Wound culture obtained. Pack wound with vashe soaked gaze. Covered with 4x4 and conform gauze taped in place. 2. Left posterior calf: L 2.0cm x W 8.0 cm X D 0.1cm Area cleaned with soap and water,Selective debridement per provider to posterior calf 25cm x 25cm . culture obtained Cleaned with vashe, applied antibiotic oint to open areas. Measurements: Right Calf: 56.5 had to be measured over pant leg Right Ankle: 33.5 Left Calf: 54.7 Left Ankle: 35.3 Length : Discussed with patient need for following a pipeman for foot care due to his diabetes, PLAN: Return to the wound center to see Latoya on Friday Blood work ordered CBC/D, CRP, Sed rate, prealbumin CMP, HgA1C, xray also ordered Please get xray and blood work done today Rx Keflex PVR and venous doppler studies to be scheduled. Patient to see Dr Salgado for foot care Rx Silvadene oint Rx Clotrimazole Possible plan for next visits applying Equal amounts silvadene, clobetasol, zinc oxide and apply leg excoriations UNIVERSAL PROTOCOL / SAFETY CHECKLIST Procedure to be performed: Sharp debridement of LLE wound Sign in Communication: 1322 Time Out: Team Confirms the Correct Patient, Correct Procedure, Correct Site and Site Marking, Correct Position (if applicable), Prep and Dry Time (if applicable). Time: 1325 Affirmation of Time Out: 1355 Sign Out Discussion: Procedure completed and the patient tolerated it well without complications. Marivel Benton RN EDUCATION: The patient/family was instructed how to wash the wound(s) with dial soap, rinsing with water, AND patting dry. Visual demonstration on how to apply the dressing. Signs AND symptoms of infection were reviewed: Increased redness, swelling, pain, green, yellow drainage, fever or chills all would need to be evaluated by a Physician. Patient received typed homegoing wound care instructions and has expressed intent to comply. Prescriptions ordered this encounter Disp Refills Start End SILVER SULFADIAZINE 1 % TOPICAL CREAM 85 g 1 08/20/2018 Sig: Apply to bilateral legs as directed CLOTRIMAZOLE 1 % TOPICAL CREAM 113 g 1 08/20/2018 Sig: Apply to bilateral legs as directed ZINC OXIDE 22 % TOPICAL CREAM 113 g 1 08/20/2018 Sig: Apply to bilateral legs as directed. CEPHALEXIN 500 MG CAPSULE 40 c* 0 08/20/2018 08/30/2018 Route: ORAL Sig: Take 1 capsule by mouth four times daily for 10 days. Encounter Status:Closed by RABIA POE on 09/03/18 [facility] Fungal Cultureon 08-20-2018 Fungal Culture Sp. Request/Comment: - Eswab Culture Result - No Fungus isolated after 32 days [facility] Comment on above: Performed By: #### W CUL #### [id number] [place], [place] [address] HISTORY PHYSICALon 9 HISTORY PHYSICAL HNO ID: [id number] Author: Rabia Poe Service: ? Author Type: Nurse Practitioner Type: HANDP Filed: 09/03/2018 6:14 AM Note Text: DATE OF CONSULTATION: 08/20/2018 REQUESTING PHYSICIAN: Francheska Wagner CNP CONSULTING PROVIDER: Rabia Poe APRN.CNP REASON FOR CONSULTATION: Non-healing left calf stasis ulcer and right diabetic great toe ulcer. HISTORY OF PRESENT ILLNESS: Derrell Hoyt is a 53 year old male who presents to the [facility] for further evaluation and management of non-healing wounds involving his left [posterior calf and right great toe, plantar aspect. PAST MEDICAL HISTORY Diagnosis Date - Depression - DM (diabetes mellitus) (HCC) - HTN (hypertension) - Multinodular goiter 01/2015 - Papillary thyroid carcinoma (HCC) 01/2015 PAST SURGICAL HISTORY Procedure Laterality Date - ; THYROIDECTOMY TOTAL OR COMPLETE 04/2015 - KNEE LEFT OP SURGERY 1998 benign tumor - TONSILLECTOMY AND ADENOIDECTOMY HX 73 MEDICATIONS: levothyroxine (SYNTHROID) 300 mcg tablet Take 1 tablet by mouth once daily. simvastatin (ZOCOR) 80 mg tablet Take 1 tablet by mouth daily at bedtime. buPROPion SR (ZYBAN SR; WELLBUTRIN SR) 150 mg 12 hr tablet Take 1 tablet by mouth once daily. lisinopril (PRINIVIL) 10 mg tablet Take 1 tablet by mouth once daily. metFORMIN (GLUCOPHAGE) 500 mg tablet Take 2 tablets by mouth twice daily with meals. citalopram (CELEXA) 40 mg tablet Take 1 tablet by mouth once daily. blood sugar diagnostic (FREESTYLE LITE STRIPS) test strip Test blood sugar(s) 1 times daily. Dx: Type 2 diabetes E11.9. Blood-Glucose Meter (FREESTYLE LITE METER) monitoring kit Freestyle LITE Meter Kit - Lancets (FREESTYLE LANCETS) lancets Test blood sugar(s) 2 times daily. Dx: DM 250.0 Insulin: No sulfamethoxazole-trimetho prim (BACTRIM DS) 800-160 mg per tablet Take 1 tablet by mouth twice daily. doxycycline monohydrate (MONODOX) 100 mg capsule Take 1 capsule by mouth twice daily for 10 days. doxycycline monohydrate (MONODOX) 100 mg capsule Take 1 capsule by mouth twice daily for 10 days. silver sulfADIAZINE (SILVADENE) 1 % cream Apply to bilateral legs as directed clotrimazole (LOTRIMIN, CLOTRIM) 1 % cream Apply to bilateral legs as directed zinc oxide 22 % crea Apply to bilateral legs as directed. lansoprazole orally disintegrating (PREVACID) 30 mg disintegrating tablet Take 1 tablet by mouth twice daily for 14 days. bismuth subsalicylate (PEPTO-BISMOL) 262 mg chew Take 1 tablet by mouth four times daily for 14 days. aspirin, enteric coated (ASPIRIN, ENTERIC COATED) 81 mg EC tablet Take 1 tablet by mouth once daily. albuterol HFA (PROAIR HFA) 90 mcg/actuation inhaler Inhale 2 Puffs as instructed every 6 hours as needed for Wheezing/Shortness of Breath. ALLERGIES No Known Allergies FAMILY HISTORY Problem Relation Age of Onset - Heart Father valve disease - Cancer Paternal Grandfather pancreatic, alcoholic - Alcohol/Drug Father - Hypertension Paternal Grandmother - Prostate Cancer Paternal Grandfather - Colon Cancer Paternal Uncle - Heart Mother - Heart Paternal Grandmother - Alcohol/Drug Mother Social History Tobacco Use - Smoking status: Former Smoker Packs/day: 1.00 Years: 10.00 Pack years: 10.00 Types: Cigars Last attempt to quit: 09/07/2010 Years since quittin.9 - Smokeless tobacco: Never Used - Tobacco comment: occasionally Substance Use Topics - Alcohol use: No Comment: quit, hx of - Drug use: No REVIEW OF SYSTEM: PAIN ASSESSMENT: Negative for pain, history of chronic pain, or current treatment for a chronic pain condition. GENERAL: No weight loss, malaise or fevers HEENT: Negative for frequent or significant headaches, No changes in hearing or vision, no nose bleeds or other nasal problems NECK: Negative for lumps, goiter, pain and significant neck swelling RESPIRATORY: Negative for cough, hemoptysis, wheezing, COPD, dyspnea or shortness of breath CARDIOVASCULAR: Negative for chest pain, leg swelling, hypertension, CHF or palpitations GI: No nausea, vomiting, or diarrhea : No history of dysuria, frequency or incontinence MUSCULOSKELETAL: Negative for joint pain or swelling, back pain or muscle pain SKIN: As per HPI. Negative for any other lesions, rash, and itching PSYCH: Negative for sleep disturbance, mood disorder and recent psychosocial stressors HEMATOLOGY/LYMPHOLOGY: Negative for prolonged bleeding, bruising easily or swollen nodes ENDOCRINE: Negative for cold or heat intolerance, polyuria, polydipsia and goiter NEURO: No history of headaches, syncope, paralysis, seizures or tremors There were no vitals filed for this visit. PHYSICAL EXAMINATION: Constitutional: Alert and in no acute distress. Well developed, well nourished. HEENT: Head and face normal. Sclera non-icteric, EOM intact, Normal nasal mucosa, septum, and turbinates: Normal oropharynx. Comments: Neck: Supple, no bruit, no masses, thyroid not enlarged. Comments: Chest: Lungs clear to auscultation, no accessory muscle use for respiration Comments: Heart: Regular rate/rhythm, normal S1,S2, no murmur, rubs or gallops Comments: Abdomen: Soft, non-tender, non-distended, + bowel sounds, no bruit, no organomegaly Comments: Extremities: No clubbing, no cyanosis of fingers. Lower extremities normal strength. Dorsalis pedis : Present (Y) Absent Diminished Doppler Posterior Tibialis: Present (Y) Absent Diminished Doppler Capillary Refill: < 3 sec. (Y) > 3 sec. ABIs: Right Left Rubor of Dependency: Negative (Y) Positive (N) [place] Examination: Comments: Edema Measurements: Right Calf: 56.5 had to be measured over pant leg Right Ankle: 33.5 Left Calf: 54.7 Left Ankle: 35.3 Length : Skin: Normal skin color and pigmentation, normal skin turgor, and no rash. See Wound Assessment . Neurologic: Cortical function: Normal. Comments: Psychiatric: Judgment and insight: Intact. Mood and affect: Normal. Comments: Lymphatic: No cervical lymphadenopathy. Comments: Most recent laboratory data: Hemoglobin A1C = ?? WBC , Hgb , Hct , PLT , Glu , BUN , Cr , Na , K , Cl , Albumin , Total protein WOUND ASSESSMENT: IMPRESSION: 1. TREATMENT PLAN: Debridement Type: Autolytic Enzymatic Mechanical Surgical Sharp (Y) Other: ?? Sharp debridement is performed to freshen up the wound and stimulate the healing cascade. It allows the wound to progress from the inflammatory to the proliferative phase of wound healing. Wound Dressing: See Nursing Notes for details. . Local Tx: 1. Right first toe plantar surface, probes to bone: L 0.4Cm x W 1.2 Cm X D 0.6 Cm Cleaned with soap and water , Wound culture obtained. Pack wound with vashe soaked gaze. Covered with 4x4 and conform gauze taped in place. 2. Left posterior calf: L 2.0cm x W 8.0 cm X D 0.1cm Area cleaned with soap and water,Selective debridement per provider to posterior calf 25cm x 25cm . culture obtained Cleaned with vashe, applied antibiotic oint to open areas. Blood work ordered CBC/D, CRP, Sed rate, prealbumin CMP, HgA1C, xray also ordered Please get xray and blood work done today PVR and venous doppler studies to be scheduled. Patient to see Dr Salgado for foot care Rx Silvadene oint Rx Clotrimazole Systemic Rx: Keflex as prescribed. Decongestive Management: Discussed management consisting of decongestive phase to decrease volume of the legs and maintenance when patient will be fitted for appropriate compression garments. Tissue edema compresses and further compromises the microcirculation, adding insult by decreasing O2 and nutrient delivery to the tissues. These factors synergistically threaten wound healing by contributing to the progression of infectious processes and by causing additional tissue necrosis. Right LE/UE: Left LE/UE: Nutritional Support: MVI, Zinc Supplement and Protein Supplement as directed. Patient is instructed to continue a healthy, well-balanced diet for nutritional support for optimal healing. Protein is the most important nutrient for wound healing. Eating adequate amounts of protein allows the body to create new cells and chemicals to heal the wound, and increases the body?s ability to fight infection. Eating high protein foods daily is recommended such as: lean meats, fish, poultry, cheese, milk, yogurt, eggs and legumes. Vitamins and minerals provide a full range of nutrients for wound healing. It can help jump start the body's production of cells and chemicals needed for healing. Vitamins and minerals can be obtained through healthy foods in your diet and by taking a multiple vitamin supplement. Vitamin C is essential for collagen synthesis. Collagen and fibroblasts compose the basis for the structure of a new wound bed. Also, a deficiency of Vitamin C prolongs the healing time and contributes to reduced resistance to infection. Laboratory: Wound cultures (aerobic, anaerobic and fungal) collected to assess level of bacterial bioburden. Patient will be treated accordingly. Wound cultures are collected to assess level of bacterial bio-burden. Excessive bio-burden can result in inflammatory and proliferative phase stagnation as well as compromise of normal wound healing physiology. Bacterial proliferation, biofilm production, critical colonization and the development of resistant organism can lead to wound infection, wound deterioration and devastating tissue loss. Knowing the organism that populated the wound can help direct therapy, particularly anti-microbial dressing choices. Follow-up is scheduled in 1 week, sooner with any concerns or worsening symptoms. - See patient instructions for further recommendations. - Pt education along with discharge instructions given to patient - Discussed Red Flag signs and when to go to ER. - Pt agreeable with plan and verbalize understanding. RISKS AND BENEFITS OF ADVANCED WOUND CARE: At the time of the initial consultation, the risks and benefits of advanced wound care were discussed with the patient. The benefits, including enhancement of wound healing and the potential risks, including enhancement of wound healing and the potential risks, including mild to moderate pain, the risk of infection, and the potential deterioration of the wound were discussed and explained in detail. The need for periodic wound debridement, obtaining wound cultures and the use of digital photography to document wound progress was also discussed. The patient expressed an understanding of this discussion and was given the opportunity to have questions answered. Verbal acknowledgement of this understanding and consent prior to treatment was obtained. Thank you, Francheska Wagner CNP, for inviting us participate in the care of this patient. We appreciate the opportunity to assist. Please do not hesitate to call with any questions or concerns you may have regarding this patient's current and future wound care. Rabia Poe, FABRIC WORKER SUPERVISOR.[facility] Charge Capture: [id number], [id number] [facility] PROCEDUREon 08-20-2018 Protein mass conc HNO ID: [id number] Author: Rabia Poe Service: ? Author Type: Nurse Practitioner Type: Procedures Filed: 09/03/2018 6:14 AM Note Text: A time out was performed immediately prior to procedure start with the wound care team, correctly identifying the patient name, date of , procedure, anatomy, patient position, safety precautions, and procedure-specific equipment needs. The procedure was explained to the patient including the risks, benefits and alternatives. The risks, including but not limited to infection and bleeding, were reviewed by this provider and the patient agreed to undergo the procedure. After providing local analgesia with Lidocaine 2% gel, a selective debridement of the left posterior calf wound was performed, using a sterile #15 blade, iris scissors, and forceps to remove the non-viable or devitalized tissue, the total surface area of which is (< 20 sq cm). The patient tolerated the procedure well without complications. Hemostasis was achieved with direct pressure. The wound/s was/were then copiously irrigated with sterile normal saline and dressings were applied. [facility] Wound Culture/Stainon 2018 Wound Culture/Stain Sp. Request/Comment: - Eswab Smear Result - Many Gram positive cocci in pairs --> ABNORMAL ALERT Few --> ABNORMAL ALERT Gram negative bacilli --> ABNORMAL ALERT Rare --> ABNORMAL ALERT Gram positive diphtheroid-like bacilli --> ABNORMAL ALERT Few Polymorphonuclear leukocytes Many Red Blood Cells Culture Result - Moderate Proteus mirabilis --> ABNORMAL ALERT Call the lab ([phone]) in 72 hours if susceptibility testing for ertapenem is required. --> ABNORMAL ALERT Moderate skin danielle ORGANISM: Proteus mirabilis METHOD: Minimum inhibitory concentration(Vitek) Antibiotic Interp ANGELA Status Ampicillin SUSCEPTIBLE <=2 F Gentamicin SUSCEPTIBLE <=1 F Trimeth sulfameth SUSCEPTIBLE <=20 F Ciprofloxacin SUSCEPTIBLE <=0.25 F Cefepime SUSCEPTIBLE <=1 F Piperacillin/Tazobac SUSCEPTIBLE <=4 F Ampicillin Sulbact SUSCEPTIBLE <=2 F Ceftriaxone SUSCEPTIBLE <=1 F Meropenem SUSCEPTIBLE <=0.25 F Critically abnormal [facility] Comment on above: Performed By: #### W CUL #### [place] [id number] [place] [address] Wound Culture/Stain Sp. Request/Comment: - Eswab Smear Result - Many Gram positive cocci in pairs --> ABNORMAL ALERT Few --> ABNORMAL ALERT Gram negative bacilli --> ABNORMAL ALERT Few Polymorphonuclear leukocytes Rare Mononuclear cells Culture Result - Many Streptococcus agalactiae (Group B streptococcus) --> ABNORMAL ALERT Susceptibility testing not performed on beta hemolytic streptococci due to predictable susceptibility to penicillin and other beta lactams. For testing, call Microbiology within 72 hours. --> ABNORMAL ALERT Few --> ABNORMAL ALERT Proteus mirabilis --> ABNORMAL ALERT Refer to specimen collected on --> ABNORMAL ALERT 2.28.19 AT 1430 ([id number]) --> ABNORMAL ALERT Rare --> ABNORMAL ALERT Lactose positive gram negative bacilli --> ABNORMAL ALERT No further workup --> ABNORMAL ALERT Many skin danielle Few --> ABNORMAL ALERT Methicillin resistant Staphylococcus aureus --> ABNORMAL ALERT ORGANISM: Methicillin resistant Staphylococcus aureus METHOD: Minimum inhibitory concentration(Vitek) Antibiotic Interp ANGELA Status Erythromycin RESISTANT >=8 F Clindamycin RESISTANT >=4 F Tetracycline RESISTANT >=16 F Vancomycin SUSCEPTIBLE 1 F Oxacillin RESISTANT >=4 F Oxacillin resistant staphylococci are resistant to all beta lactam antibiotics (except new cephalosporins with anti MRSA activity). Trimeth sulfameth SUSCEPTIBLE <=10 F Gentamicin SUSCEPTIBLE <=0.5 F Rifampin SUSCEPTIBLE <=0.5 F Rifampin should not be used alone for antimicrobial therapy. Daptomycin SUSCEPTIBLE 0.25 F Linezolid SUSCEPTIBLE 4 F Levofloxacin RESISTANT >=8 F Doxycycline SUSCEPTIBLE 2 F Critically abnormal [facility] Comment on above: Performed By: #### W CUL #### [facility] [address] [place], [place] [address] XR FOOT 3V AP/LAT/OBL RTon 0 08-20-2018 XR FOOT 3V AP/LAT/OBL RT * * *Final Report* * * DATE OF EXAM: Aug 20 2018 3:11PM MDX [id number] - XR FOOT 3V AP/LAT/OBL RT / PROCEDURE REASON: multiple diagnoses * * * * Physician Interpretation * * * * Right foot radiographs HISTORY: 53 years old Clinical information: Diabetic ulcer of toe of right foot associated with type 2 diabetes mellitus, with necrosis of muscle (HCC) Diabetic ulcer of toe of right foot associated with type 2 diabetes mellitus, with necrosis of muscle (HCC) TECHNIQUE: Images: XR FOOT 3V AP/LAT/OBL RT Comparison: None. RESULT: Findings: Osteophyte formation subjacent to the first metatarsophalangeal joint. Possible small marginal erosion involving the medial base of the proximal phalanx great toe. No acute fracture, dislocation, aggressive osseous lesion, or radiopaque foreign body identified. Plantar calcaneal spur. Enthesophyte at the Achilles insertion site on the calcaneus. Prominence of the soft tissues of the great toe. IMPRESSION: Soft tissue swelling of the great toe. No radiographic evidence of osteomyelitis.. Possible marginal erosion involving the medial base of the proximal phalanx great toe. This may be related to an underlying inflammatory arthropathy. 1. Pulp Machine Operator: PSCB Transcribe Date/Time: Aug 20 2018 3:38P Dictated by : TRUE ZAPIEN MD This examination was interpreted and the report reviewed and electronically signed by: TRUE ZAPIEN MD on Aug 20 2018 3:40PM EST [id number] Normal [facility] Encounters Encounter Date Encounter Type Care Provider Facility Start: 11-26-2023 Telephone encounter Bob renee APRN.RE EXAMINER Work Phone: [facility] Cardiology Comment on above: Results; Patient Upd ate Start: 11-20-2023 ambulatory Enedina Beckman RT(R) N uclear Medicine Comment on above: Radiology [place] Start: 11-20-2023 Patient encounter procedure Enedina Beckman RT(R) Nuclear Medicine Start: 11-19-2023 End: 11-19-2023 Evaluation and management of inpatient EDY BHATIA Facility:[id number] Start: 11-18-2023 End: 11-22-2023 Evaluation and management of inpatient HONORIO OVALLE Facility:[id number] Start: 09-11-2018 End: 09-11-2018 Patient encounter procedure RABIA Sanchez (RE EXAMINER) [facility] Start: 09-04-2018 End: 09-04-2018 Patient encounter procedure RABIA Sanchez (RE EXAMINER) [facility] Start: 08-28-2018 End: 08-28-2018 Patient encounter procedure RABIA Sanchez, ([facility]) [facility] Start: 08-21-2018 End: 08-21-2018 Patient encounter procedure RABIA Sanchez, ([facility]) [facility] Start: 08-20-2018 Patient encounter procedure RABIA Sanchez, ([facility]) [facility] Start: 08-20-2018 End: 08-20-2018 Patient encounter procedure RABIA J, ([facility]) [facility] Plan of Treatment Date Care Activity Detail Author Start: 11-19-2024 Hepatitis B surface antibody level LDL Cholesterol [facility] Start: 02-22-2024 Influenza vaccination Influenza Vaccine (Season Ended) [facility] Start: 02-20-2024 Hemoglobin A1c measurement HbA1C [facility] Start: 01-21-2024 End: 01-21-2024 Patient encounter procedure 01/21/2024 2:20 PM EDT Office Visit [facility] Cardiology [address] [place] [address] Bob Du APRN.RE EXAMINER [address] [facility] [address] [place] [address] 8 week follow up after [facility] d/c for RVOT [place] [facility] Dre Cardiology Comment on above: 8 week follow up after [facility] d/c for RVOT [place] Start: 11-21-2023 End: 11-21-2023 Evaluation and management of inpatient 11/21/2023 10:00 AM EDT - 11/21/2023 11:00 AM EDT Surgery MR CARDIAC BUNG DRIVER [address] [place] [address] Chidi Boyer MD [address] [place] [address] LEFT HEART CATH INTRAPROCEDURAL INJECT W/ LEFT VENTRICULOGRAPHY IMAGE SUPERVISION/INTERPRETATIO N MR CARDIAC [facility]UNG DRIVER Comment on above: LEFT HEART CATH INTRAPROCEDURAL INJECT W / LEFT VENTRICULOGRAPHY IMAGE SUPERVISION/INTERPRETATION Start: 11-21-2023 End: 11-21-2023 L hrt cath w/njx l ventriculography img s&i LEFT HEART CATH INTRAPROCEDURAL INJECT W/ LEFT VENTRICULOGRAPHY IMAGE SUPERVISION/INTERPRETATIO N Abnormal stress test 11/21/2023 10:00 AM EDT MR BUNG DRIVER Start: 06-23-2023 Behavioral Health Screening Behavioral Health Screening [facility] Start: 02-21-2023 Covid-19 Vaccine ( season) Covid-19 Vaccine ( season) [facility] Start: 10-16-2022 Urine microalbumin profile DTaP,Tdap,Td Vaccine (2 - Td or Tdap) [facility] Start: 04-22-2021 Hemoglobin A1c measurement HbA1C [facility] Start: 09-11-2020 Prostate specific antigen measurement Prostate Cancer Screening Discussion [facility] Start: 04-12-2020 Annual PCP Team Chronic Disease Visit Annual PCP Team Chronic Disease Visit [facility] Start: 04-12-2020 Pneumococcal vaccination Pneumococcal Vaccine (2 of 2 - PCV) [facility] Start: 07-02-2019 Hepatitis B screening Urine Albumin:Creatinine Ratio [facility] Start: 10-06-2016 Glaucoma screening Dilated Retinal Exam [facility] Start: 06-13-2016 Diabetic foot examination Diabetic Foot Exam [facility] Start: 2015 Shingrix Vaccine (1 of 2) Shingrix Vaccine (1 of 2) [facility] Start: 2010 Screening for malignant neoplasm of colon [facility] Start: 1984 Hepatitis B Vaccine (1 of 3 - 19+ 3-dose series) Hepatitis B Vaccine (1 of 3 - 19+ 3-dose series) [facility] Start: 1983 BP Controlled (<130/80) BP Controlled (<130/80) [facility] Start: 1983 Hepatitis C screening Hepatitis C Screening [facility] Start: 1983 HIV screening HIV Screening [facility] Immunizations Immunization Date Immunization Notes Care Provider Fa cility 04-13-2019 influenza, seasonal, injectable, preservative free Enedina McFeely RT(R) [facility] 04-13-2019 influenza virus vacc ine, unspecified formulation Enedina McFeely RT(R) [facility] 04-12-2019 influenza, injectabl e, quadrivalent, contains preservative Enedina McFeely RT(R) [facility] 04-12-2019 pneumococcal polysaccharide vaccine, 23 valent Enedina McFeely RT(R) [facility] 04-14-2017 influenza, injectabl e, quadrivalent, contains preservative Enedina McFeely RT(R) [facility] 10-16-2012 tetanus toxoid, redu susan diphtheria toxoid, and acellular pertussis vaccine, adsorbed Enedina McFeely RT(R) [facility] Payers Date Payer Category Payer Medicaid [id number] 2023 Medicare [id number] 2022 Medicaid [id number] 2022 Medicare [id number] Social History Date Type Detail Facility Start: 09-07-2014 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 [facility] Start: 10-16-2012 Tobacco Comment occasionally [facility] Start: 10-16-2012 Alcohol Comment quit, hx of [facility] Start: 1965 Sex Assigned At Not on file [facility] Medical Equipment Procedure Code Equipment Code Equipment Origin al Text Equipment Identifier Dates Test blood sugar (s) 1 times daily. Dx: Type 2 diabetes E11.9. [id number] Start: 04-18-2015 Test blood sugar (s) 2 times daily. Dx: DM 250.0 Insulin: No [id number] Start: 09-01-2014 Goals Date Patient Goal Desired Activity /State Personal health goal Clinical Notes 01-21-2021 to 11-26-2023 Telephone Encounter - Yris Lyn MA - 11/26/2023 3:38 PM EDTTelephone Encounter - Yris Lyn MA - 11/26/2023 3:38 PM EDTTelephone Encounter - Bob Du, FABRIC WORKER SUPERVISOR.RE EXAMINER - 11/26/2023 3:09 PM EDT Note Date & Type Note Facility 11-26-2023 Telephone encounter Note Left voicemail for patient to return call in regards to Providers message. Follow up appointment for patient already made. I am going to see if the patient wants to have the monitor mailed to him or if he wants to come in the office to have it put on. [facility] 11-26-2023 Miscellaneous Notes Left voicemail for patient to return call in regards to Providers message. Follow up appointment for patient already made. I am going to see if the patient wants to have the monitor mailed to him or if he wants to come in the office to have it put on. 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 He was sent home on Lopressor 100 mg twice daily. Patient needs a 30-day event monitor then Hospital follow-up in 8 weeks. documented in this encounter [facility] 11-26-2023 Telephone encounter Note 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 He was sent home on Lopressor 100 mg twice daily. Patient needs a 30-day event monitor then Hospital follow-up in 8 weeks. [facility] Work Phone: 11-22-2023 Note HNO ID: [id number] Author: CHIDI FRENCH RN Service: Care Management Author Type: Registered Nurse Type: Care Mgt Progress Note Filed: 11/22/2023 14:07 Note Text: CARE MANAGEMENT DISCHARGE NOTE SERVICE DATE: November 22, 2023 SERVICE TIME: 1:48 PM Admission Date: 11/18/2023 LOS: 4 days Discharge Arrangement Services Arranged Provider Name: Phone: Caregiver Assessment Transportation Arrangements Handoff Communication: Additional Information: patient to d/c back to [facility] today. [facility] to setup transport at d/c, transport setup for 5:30pm today. Transport form completed. SIGNATURE: Chidi French RN PATIENT NAME: Derrell Hoyt DATE: November 22, 2023 TIME: 1:47 PM CONTACT #: [phone] [facility] 11-21-2023 Note HNO ID: [id number] Author: AIXA PAEZ DO Service: Hospital Medicine Author Type: Physician Type: Progress Notes Filed: 11/21/2023 19:57 Note Text: INPATIENT PROGRESS NOTE SERVICE DATE: 11/21/2023 SERVICE TIME: 3:15 PM PRIMARY SERVICE: Hospitalist Subjective CHIEF COMPLAINT: Tired INTERVAL HPI: Pt went for heart cath, now trying to nap, denies symptoms or concerns at present. Current Facility-Administered Medications Medication Dose Route Frequency NaCl 0.9% iv flush bag 20 mL INTRAVENOUS PRN melatonin 3 mg tab(s) 3 mg ORAL DAILY (8 PM) ipratropium-albuterol 3 mL nebulizer solution (DUONEB) 3 mL INHALATION QID dextrose 40 % 15 g 15 g ORAL PRN Or dextrose 10% iv bolus 12.5 g INTRAVENOUS PRN insulin lispro injection (rapid acting) (ADMElog) SUBCUTANEOUS w MEALS sodium chloride 0.9 % (flush) 2-10 mL (BD POSIFLUSH) 2-10 mL INTRAVENOUS DIRECTED PRN And perflutren lipid microspheres 1.1 mg/mL 1.3 mL injection (DEFINITY) 1.3 mL INTRAVENOUS DIRECTED PRN aspirin, enteric coated 81 mg tab(s) 81 mg ORAL DAILY guaiFENesin 1,200 mg ER tab(s) (MUCINEX) 1,200 mg ORAL BID PRN guaiFENesin 200 mg oral liquid (ROBITUSSIN) 200 mg ORAL AT BEDTIME budesonide 0.5 mg/2 mL 0.5 mg (PULMICORT) 0.5 mg INHALATION BID senna-docusate 8.6-50 mg 2 tablet (SENNA-S) 2 tablet ORAL AT BEDTIME montelukast 10 mg tab(s) (SINGULAIR) 10 mg ORAL AT BEDTIME pantoprazole DR 20 mg tab(s) (PROTONIX) 20 mg ORAL DAILY (6 AM) traZODone 50 mg tab(s) (DESYREL) 50 mg ORAL AT BEDTIME levothyroxine 200 mcg tab(s) (SYNTHROID) 200 mcg ORAL DAILY (6 AM) atorvastatin 80 mg tab(s) (LIPITOR) 80 mg ORAL q 24 HR tamsulosin 0.4 mg cap(s) (FLOMAX) 0.4 mg ORAL q 24 HR ferric gluconate 250 mg in NaCl 0.9% 100 mL (FERRLECIT) 250 mg INTRAVENOUS DAILY AT 6 PM levothyroxine 25 mcg tab(s) (SYNTHROID) 25 mcg ORAL DAILY (6 AM) insulin glargine 19 Units pen (long acting) 19 Units SUBCUTANEOUS AT BEDTIME nitroglycerin sublingual 0.4 mg tab(s) (NITROQUICK) 0.4 mg SUBLINGUAL q 5 MIN PRN acetaminophen 650 mg tab(s) (TYLENOL) 650 mg ORAL q 6 H PRN ondansetron (PF) 4 mg injection (ZOFRAN) 4 mg INTRAVENOUS q 6 H PRN metoprolol tartrate (short acting) (LOPRESSOR) tab(s) 75 mg 75 mg ORAL BID Objective PHYSICAL EXAM: BP 97/51 Pulse 113 Temp 98 Resp 22 Ht 6' 1 (1.85m) Wt 319 lb 14.2 oz (145.1kg) SpO2 96% BMI 42.21 kg/(m2). O2 Therapy: Nasal Cannula, Liters: 2 Physical Exam Performed GENERAL: Drowsy but easily awoken for conversing, no distress, cooperative, Morbidly Obese, fairly kempt bearded, does fall back asleep LUNGS: Lungs clear to auscultation, Good diaphragmatic excursion CARDIAC: Normal S1 and S2; no rubs, murmurs, or gallops ABDOMEN: Soft, nontender EXTREMITIES: trace pitting edema bilateral lower extremities NEURO: Grossly normal cognition, motor function, and cranial nerves III-XII DATA: Diagnostic tests reviewed for today's visit: Most recent labs and imaging results. Assessment/Plan Principal Problem: NSVT (nonsustained ventricular tachycardia) (HCC) (POA: Yes) Assessment AND Plan: Being transitioned off sotalol by Cardiology in favor of metoprolol, since notably also on trazodone, LHC unremarkable, monitoring tolerance on uptitrated dose of levothyroxine and orthostatics as indicated, Cardio potentially putting back on sotalol, running fluids first to see blood pressure better as it was down after heart cath Orthostatic hypotension Main complaint seeming related to this, improving with fluids will continue assessing accordingly, Cardio notably adjusting fluids Iron deficiency anemia Ferritin is actually markedly low at 12.5 so pt would benefit from iv ferrlecit for maybe a few doses then replenished PO, monitor for bleeding sequelae but possibly diet related, pt had been homeless for a time and now at assisted living. Continuing with feric gluconate 250 mg iv over 2 hours daily tonight again as I ordered, total 4 doses if still in hospital by then vs transition to PO COPD Chronically somewhat dyspneic attributed to this, is on budesonide inh BID and duoneb qid at present, normally on Advair BPH Tamsulosin 0.4 mg po daily Insomnia Trazodone 50 mg po at bedtime Insulin dependent type 2 diabetes Home med list suggests dulaglutide and insulin glargine 38 units subcutaneously at bedtime - now that no longer on and off NPO for stress test and heart cath can consider resumption, has insulin sliding scale, blood sugars ranging 145-179 today and had been NPO, A1c came back at 9.2% so certainly will need blood sugar control 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 [facility] 11-21-2023 Note HNO ID: [id number] Author: EDGAR STEVENSON LSW Service: Care Management Author Type: Tire Repairman Type: Care Mgt Progress Note Filed: 11/21/2023 14:56 Note Text: CARE MANAGEMENT PROGRESS NOTE SERVICE DATE: 11/21/2023 SERVICE TIME: 2:49 PM LOS: 3 days IMM Follow Up Copy Given: Yes Copy given to:: Patient Method: In Person Pt dx: Right ventricular outflow tract PVCs and nonsustained ventricular tachycardia AND orthostatic hypotension Pt is recommended continuing sotalol and uptitrating metoprolol. Because of his vague symptoms he underwent stress testing which showed a possible small area of ischemia in the lateral wall. Pt is from [facility] and can d/c back when medically cleared. Transport referral and forms saved in [facility]. manager statistics, Steffen, from [facility] called asking when patient is discharged that AVS/discharge summary is sent to them at [phone] SIGNATURE: ROSALIO Núñez PATIENT NAME: Derrell Hoyt DATE: November 21, 2023 TIME: 2:49 PM PAGER/CONTACT #: [phone] [facility] 11-21-2023 Note HNO ID: [id number] Author: CHIDI ARROYO MD Service: Cardiovascular Medicine Author Type: Physician Type: Progress Notes Filed: 11/21/2023 20:22 Note Text: CARDIOLOGY INPATIENT PROGRESS NOTE SERVICE DATE: 11/21/2023 SERVICE TIME: 1000 PRIMARY SERVICE: Electrophysiology Subjective Patient is immediately post cardiac catheterization. He is complaining of a headache. He denies any dizziness today. He denies any chest pains, shortness of breath, palpitations, near syncope or syncope Objective SCHEDULED MEDICATIONS: metoprolol tartrate (short acting), 50 mg, BID insulin glargine, 19 Units, AT BEDTIME aspirin, enteric coated, 81 mg, DAILY guaiFENesin, 200 mg, AT BEDTIME budesonide, 0.5 mg, BID senna-docusate, 2 tablet, AT BEDTIME montelukast, 10 mg, AT BEDTIME pantoprazole DR, 20 mg, DAILY (6 AM) traZODone, 50 mg, AT BEDTIME levothyroxine, 200 mcg, DAILY (6 AM) atorvastatin, 80 mg, q 24 HR tamsulosin, 0.4 mg, q 24 HR ferric gluconate, 250 mg, DAILY AT 6 PM levothyroxine, 25 mcg, DAILY (6 AM) melatonin, 3 mg, DAILY (8 PM) ipratropium-albuterol, 3 mL, QID insulin lispro, , w MEALS IV MEDICATIONS: NaCl 0.9%, Last Rate: 75 mL/hr (11/21/23 1000) NaCl 0.9%, Last Rate: 50 mL/hr (11/21/23 0600) PRN MEDICATIONS: nitroglycerin sublingual, 0.4 mg, q 5 MIN PRN acetaminophen, 650 mg, q 6 H PRN ondansetron (PF), 4 mg, q 6 H PRN [COMPLETED] ECHO, , Once AND sodium chloride 0.9 % (flush), 2-10 mL, DIRECTED PRN AND perflutren lipid microspheres, 1.3 mL, DIRECTED PRN guaiFENesin, 1,200 mg, BID PRN NaCl 0.9%, 20 mL, PRN dextrose, 15 g, PRN OR [DISCONTINUED] glucagon, 1 mg, PRN OR dextrose 10%, 12.5 g, PRN PHYSICAL EXAM: 11/21/23 0945 11/21/23 1000 11/21/23 1015 11/21/23 1016 BP: 124/60 103/56 (!) 98/49 89/51 Pulse: 83 81 75 75 Resp: 17 18 17 Temp: SpO2: 98% 98% 98% Weight: Height: Temp (24hrs), Av.8 ?C (98.2 ?F), Min:36.8 ?C (98.2 ?F), Max:36.8 ?C (98.2 ?F) Physical Exam Vitals and nursing note reviewed. Constitutional: Appearance: He is obese. Cardiovascular: Rate and Rhythm: Normal rate and regular rhythm. Pulses: Normal pulses. Heart sounds: Normal heart sounds. Pulmonary: Effort: Pulmonary effort is normal. Breath sounds: Normal breath sounds. Comments: Diminished throughout. Musculoskeletal: Right lower leg: No edema. Left lower leg: No edema. Skin: General: Skin is warm and dry. Capillary Refill: Capillary refill takes less than 2 seconds. Neurological: General: No focal deficit present. Mental Status: He is alert and oriented to person, place, and time. Mental status is at baseline. Psychiatric: Mood and Affect: Mood normal. Behavior: Behavior normal. Thought Content: Thought content normal. Judgment: Judgment normal. DATA: Diagnostic tests reviewed for today's visit: Most recent labs and imaging results. Recent Labs 11/21/2332311/20/2341311/19/23326 HB 11.2* 11.1* 12.1* HCT 37.8* 37.5* 39.5 MCV 81.1 79.6* 77.9* WBC 12.39* 9.70 12.67* PLT 179 173 193 Recent Labs 11/18/233 INR 1.1 PTSEC 11.7 APTT 28.8 Recent Labs 11/21/2332311/20/2341311/19/23326 NA 136 137 135* K 4.0 4.5 3.8 CHLOR 103 102 101 CO2 30 32 31 BUN 8 8 9 CREAT 0.75 0.71 0.61 GLUC 145* 145* 113* MG 2.2 2.2 1.9 TPROT 7.1 -- -- ALB 3.4 -- -- ALKPHOS 250* -- -- TBILI 0.5 -- -- ALT 25 -- -- AST 32 -- -- Triglycerides, Nonfasting 140 11/20/2023 Total Cholesterol, Nonfasting 90 11/20/2023 HDL Cholesterol, Nonfasting 24 11/20/2023 LDL Chol, [place] 38 11/20/2023 Hemoglobin A1C 8.5 01/20/2021 TSH 10.919 11/18/2023 Uric Acid 6.6 11/20/2023 TELEMETRIC MONITORING: RVOT PVCs and NSVT. The last episode was around 10:30 PM November 20, 2023. Patient is asymptomatic. He is currently in normal sinus rhythm. He had a flury of nonsustained VT on the evening of November 20, 2023 and again on the early evening of November 21, 2023 EKG: Normal sinus rhythm at 80 bpm. Otherwise, within normal limits. ECHO: TRANSTHORACIC ECHOCARDIOGRAM AT [facility] NOVEMBER 19, 2023: CONCLUSIONS: - Technically difficult exam due to body habitus. - Exam indication: VT - The left ventricle is mildly dilated. There is moderate concentric left ventricular hypertrophy. Left ventricular systolic function is normal. EF = 63 ? 5% (2D biplane) Definity contrast used for endocardial border detection. No RWMA - There is no patent foramen ovale as detected by Doppler. rest of lory study is difficult due to body habitus - Exam was compared with the prior OUTSIDE echocardiographic exam performed on 01/19/2021 SS TEST: STRESS TEST AT [facility] NOVEMBER 20, 2023: CONCLUSIONS: 1. SPECT Perfusion Study: Abnormal. 2. No evidence of scarred myocardium. 3. There is mild (<10%) (more content not included)... [facility] 11-20-2023 Note HNO ID: [id number] Author: AIXA PAEZ DO Service: Hospital Medicine Author Type: Physician Type: Progress Notes Filed: 11/20/2023 19:28 Note Text: INPATIENT PROGRESS NOTE SERVICE DATE: 11/20/2023 SERVICE TIME: 2:22 PM PRIMARY SERVICE: Hospitalist Subjective CHIEF COMPLAINT: Planning for heart cath INTERVAL HPI: Pt feeling fair overall, less lightheaded less orthostatic, tolerated stress test and now planning for more definitive heart cath tomorrow, pt getting a late lunch in, NPO again at midnight Current Facility-Administered Medications Medication Dose Route Frequency NaCl 0.9% iv flush bag 20 mL INTRAVENOUS PRN melatonin 3 mg tab(s) 3 mg ORAL DAILY (8 PM) acetaminophen 650 mg tab(s) (TYLENOL) 650 mg ORAL q 6 H PRN ipratropium-albuterol 3 mL nebulizer solution (DUONEB) 3 mL INHALATION QID dextrose 40 % 15 g 15 g ORAL PRN Or dextrose 10% iv bolus 12.5 g INTRAVENOUS PRN insulin lispro injection (rapid acting) (ADMElog) SUBCUTANEOUS w MEALS sodium chloride 0.9 % (flush) 2-10 mL (BD POSIFLUSH) 2-10 mL INTRAVENOUS DIRECTED PRN And perflutren lipid microspheres 1.1 mg/mL 1.3 mL injection (DEFINITY) 1.3 mL INTRAVENOUS DIRECTED PRN aspirin, enteric coated 81 mg tab(s) 81 mg ORAL DAILY guaiFENesin 1,200 mg ER tab(s) (MUCINEX) 1,200 mg ORAL BID PRN guaiFENesin 200 mg oral liquid (ROBITUSSIN) 200 mg ORAL AT BEDTIME budesonide 0.5 mg/2 mL 0.5 mg (PULMICORT) 0.5 mg INHALATION BID senna-docusate 8.6-50 mg 2 tablet (SENNA-S) 2 tablet ORAL AT BEDTIME montelukast 10 mg tab(s) (SINGULAIR) 10 mg ORAL AT BEDTIME pantoprazole DR 20 mg tab(s) (PROTONIX) 20 mg ORAL DAILY (6 AM) traZODone 50 mg tab(s) (DESYREL) 50 mg ORAL AT BEDTIME levothyroxine 200 mcg tab(s) (SYNTHROID) 200 mcg ORAL DAILY (6 AM) atorvastatin 80 mg tab(s) (LIPITOR) 80 mg ORAL q 24 HR tamsulosin 0.4 mg cap(s) (FLOMAX) 0.4 mg ORAL q 24 HR ferric gluconate 250 mg in NaCl 0.9% 100 mL (FERRLECIT) 250 mg INTRAVENOUS DAILY AT 6 PM levothyroxine 25 mcg tab(s) (SYNTHROID) 25 mcg ORAL DAILY (6 AM) metoprolol tartrate (short acting) 50 mg tab(s) (LOPRESSOR) 50 mg ORAL BID NaCl 0.9% iv infusion 50 mL/hr INTRAVENOUS CONTINUOUS Objective PHYSICAL EXAM: BP 96/55 Pulse 121 Temp 98 Resp 16 Ht 6' 1 (1.85m) Wt 308 lb 10.3 oz (140.0kg) SpO2 95% BMI 40.73 kg/(m2). O2 Therapy: Room Air Physical Exam Performed GENERAL: Alert, no distress, cooperative, Morbidly Obese, fairly kempt bearded LUNGS: Lungs clear to auscultation, Good diaphragmatic excursion CARDIAC: Normal S1 and S2; no rubs, murmurs, or gallops ABDOMEN: Soft, nontender EXTREMITIES: trace pitting edema bilateral lower extremities, apparent lotion texture NEURO: Grossly normal cognition, motor function, and cranial nerves III-XII DATA: Diagnostic tests reviewed for today's visit: Most recent labs and imaging results. Assessment/Plan Principal Problem: NSVT (nonsustained ventricular tachycardia) (HCC) (POA: Yes) Assessment AND Plan: Being transitioned off sotalol by Cardiology in favor of metoprolol, since notably also on trazodone, Planning for [facility] tomorrow, monitoring tolerance on uptitrated dose of levothyroxine and orthostatics as indicated Orthostatic hypotension Main complaint seeming related to this, improving with fluids will continue assessing accordingly Iron deficiency anemia Ferritin is actually markedly low at 12.5 so pt would benefit from iv ferrlecit for maybe a few doses then replenished PO, monitor for bleeding sequelae but possibly diet related, pt had been homeless for a time and now at assisted living. Continuing with feric gluconate 250 mg iv over 2 hours daily tonight again as I ordered, total 4 doses if still in hospital by then vs transition to PO COPD Chronically somewhat dyspneic attributed to this, is on budesonide inh BID and duoneb qid at present, normally on Advair BPH Tamsulosin 0.4 mg po daily Insomnia Trazodone 50 mg po at bedtime Insulin dependent type 2 diabetes Home med list suggests dulaglutide and insulin glargine 38 units subcutaneously at bedtime - about to be NPO for stress test and has insulin sliding scale, blood sugars ranging 145-166 today but had been NPO, A1c came back at 9.2% so certainly will need blood sugar control - can give half as much as usual insulin glargine tonight anticipating NPO and not nothing, hypoglycemia protocol there, avoid metformin for now Hypothyroidism Pt does endorse occasional brittle nails but no overwhelming syndrome of hypothyroidism though otherwise is nonspecific, does likely need officially prescribed 225 mcg total of levothyroxine according to dispense history, TSH not reflective of control - to be followed up in 4-6 weeks repeat TSH Pending [facility] for further determination by Cardiology, Medication and Non-Pharmacologic VTE Prophylaxis/Anticoagulants Anticoagulant AND Antiplatelet Medications (From admission, onward) St (more content not included)... [facility] 11-20-2023 Note HNO ID: [id number] Author: CHIDI ARROYO MD Service: Cardiovascular Medicine Author Type: Physician Type: Progress Notes Filed: 11/20/2023 13:54 Note Text: CARDIOLOGY INPATIENT PROGRESS NOTE SERVICE DATE: 11/20/2023 SERVICE TIME: 12:26 PM PRIMARY SERVICE: Electrophysiology Subjective Patient without any complaints. He denies any dizziness today. He denies any chest pains, shortness of breath, palpitations, near syncope or syncope Objective SCHEDULED MEDICATIONS: metoprolol tartrate (short acting), 50 mg, BID aspirin, enteric coated, 81 mg, DAILY guaiFENesin, 200 mg, AT BEDTIME budesonide, 0.5 mg, BID senna-docusate, 2 tablet, AT BEDTIME montelukast, 10 mg, AT BEDTIME pantoprazole DR, 20 mg, DAILY (6 AM) traZODone, 50 mg, AT BEDTIME levothyroxine, 200 mcg, DAILY (6 AM) atorvastatin, 80 mg, q 24 HR tamsulosin, 0.4 mg, q 24 HR ferric gluconate, 250 mg, DAILY AT 6 PM levothyroxine, 25 mcg, DAILY (6 AM) melatonin, 3 mg, DAILY (8 PM) ipratropium-albuterol, 3 mL, QID insulin lispro, , w MEALS IV MEDICATIONS: PRN MEDICATIONS: [COMPLETED] ECHO, , Once AND sodium chloride 0.9 % (flush), 2-10 mL, DIRECTED PRN AND perflutren lipid microspheres, 1.3 mL, DIRECTED PRN guaiFENesin, 1,200 mg, BID PRN NaCl 0.9%, 20 mL, PRN acetaminophen, 650 mg, q 6 H PRN dextrose, 15 g, PRN OR [DISCONTINUED] glucagon, 1 mg, PRN OR dextrose 10%, 12.5 g, PRN PHYSICAL EXAM: 11/20/23 1000 11/20/23 1100 11/20/23 1114 11/20/23 1200 BP: Pulse: 82 81 82 Resp: 20 20 Temp: 36.8 ?C (98.2 ?F) SpO2: Weight: Height: Temp (24hrs), Av.8 ?C (98.2 ?F), Min:36.8 ?C (98.2 ?F), Max:36.8 ?C (98.2 ?F) Physical Exam Vitals and nursing note reviewed. Constitutional: Appearance: He is obese. Cardiovascular: Rate and Rhythm: Normal rate and regular rhythm. Pulses: Normal pulses. Heart sounds: Normal heart sounds. Pulmonary: Effort: Pulmonary effort is normal. Breath sounds: Normal breath sounds. Comments: Diminished throughout. Musculoskeletal: Right lower leg: No edema. Left lower leg: No edema. Skin: General: Skin is warm and dry. Capillary Refill: Capillary refill takes less than 2 seconds. Neurological: General: No focal deficit present. Mental Status: He is alert and oriented to person, place, and time. Mental status is at baseline. Psychiatric: Mood and Affect: Mood normal. Behavior: Behavior normal. Thought Content: Thought content normal. Judgment: Judgment normal. DATA: Diagnostic tests reviewed for today's visit: Most recent labs and imaging results. Recent Labs 11/20/2341311/19/2332611/18/232211 HB 11.1* 12.1* 12.5* HCT 37.5* 39.5 41.1 MCV 79.6* 77.9* 77.8* WBC 9.70 12.67* 11.84* PLT 173 193 186 Recent Labs 11/18/232212 INR 1.1 PTSEC 11.7 APTT 28.8 Recent Labs 11/20/2341311/19/2332611/18/232212 NA 137 135* 135* K 4.5 3.8 4.2 CHLOR 102 101 100 CO2 32 31 32 BUN 8 9 11 CREAT 0.71 0.61 0.66 GLUC 145* 113* 135* MG 2.2 1.9 2.1 Triglycerides, Nonfasting 140 11/20/2023 Total Cholesterol, Nonfasting 90 11/20/2023 HDL Cholesterol, Nonfasting 24 11/20/2023 LDL Chol, [place] 38 11/20/2023 Hemoglobin A1C 8.5 01/20/2021 TSH 10.919 11/18/2023 Uric Acid 6.6 11/20/2023 TELEMETRIC MONITORING: No events recorded overnight or today. Unfortunately events were erased we believe this morning. Per nursing patient did not have any ventricular ectopy overnight. He is currently in normal sinus rhythm. EKG: Normal sinus rhythm at 85 bpm. ECHO: TRANSTHORACIC ECHOCARDIOGRAM AT [facility] NOVEMBER 19, 2023: CONCLUSIONS: - Technically difficult exam due to body habitus. - Exam indication: VT - The left ventricle is mildly dilated. There is moderate concentric left ventricular hypertrophy. Left ventricular systolic function is normal. EF = 63 ? 5% (2D biplane) Definity contrast used for endocardial border detection. No RWMA - There is no patent foramen ovale as detected by Doppler. rest of lory study is difficult due to body habitus - Exam was compared with the prior OUTSIDE echocardiographic exam performed on 01/19/2021 SS TEST: STRESS TEST AT [facility] NOVEMBER 20, 2023: CONCLUSIONS: 1. SPECT Perfusion Study: Abnormal. 2. No evidence of scarred myocardium. 3. There is mild (<10%) ischemia in the territory of the LCX. 4. Left ventricle is normal in size. The left ventricle systolic function is hyperdynamic. 5. Right ventricle is normal in size. The right ventricle systolic function is normal. 6. This is an indeterminate risk scan. Gated Stress FBP LVEF % 75 T CATH: No prior records in epic. Assessment/Plan Patient Active Hospital Problem List: 1. Right ventric (more content not included)... [facility] 11-20-2023 Note HNO ID: [id number] Author: HONORIO MATHEWS RT(R) Service: ? Author Type: Technologist Type: Progress Notes Filed: 11/20/2023 09:32 Note Text: RADIOLOGY SERVICE PROGRESS NOTE SERVICE DATE: 11/20/2023 SERVICE TIME: 9:31 AM PATIENT IDENTITY VERIFICATION COMPLETED USING TWO (2) STANDARD IDENTIFIERS: Name and Date of confirmed by patient verbally FALL SCREENING: Has the patient had 2 falls in the last year or 1 fall with injury or currently using an Ambulatory Assistive Device (Walker, Cane, Wheelchair, Crutches, etc.)? Inpatient: Screened on floor PATIENT GENDER DATA: .male ALLERGIES: Reviewed and unchanged MEDICATIONS REVIEWED: Not applicable PATIENT RELEVANT IMPLANT DATA REVIEWED: Not Applicable PATIENT PRESENTS WITH AN IMPLANTABLE OR ATTACHED ENVIRONMENTAL ENGINEERING TECHNICIAN: No CREATININE: Creatinine Date Value Ref Range Status 11/20/2023 0.71 0.50 - 1.40 mg/dL Final Comment: Patients receiving either N-Acetylcysteine (NAC) or Metamizole prior to venipuncture, may have falsely depressed results. 11/19/2023 0.61 0.50 - 1.40 mg/dL Final Comment: Patients receiving either N-Acetylcysteine (NAC) or Metamizole prior to venipuncture, may have falsely depressed results. 11/18/2023 0.66 0.50 - 1.40 mg/dL Final Comment: Patients receiving either N-Acetylcysteine (NAC) or Metamizole prior to venipuncture, may have falsely depressed results. Estimated Glomerular Filtration Rate Date Value Ref Range Status 11/20/2023 106 >=60 mL/min/1.73m? Final Comment: Estimated Glomerular Filtration Rate (eGFR) is calculated using the 2020 CKD-EPI creatinine equation. This equation utilizes serum creatinine, sex, and age as parameters. The creatinine assay has traceable calibration to isotope dilution-mass spectrometry. Refer to KDIGO guidelines for clinical interpretation. In patients with unstable renal function, e.g. those with acute kidney injury, the eGFR may not accurately reflect actual GFR. eGFR- Date Value Ref Range Status 01/24/2021 >60 Final P.O.C.T. RESULTS: N/A November 20, [address] PERFORMED: No IV SITE: Inpatient - refer to LDA documentation POST EXAM PIV STATUS: Inpatient see LDA documentation PROCEDURE TYPE: NM Stress: 16.9 mCi [id number] was administered IV for Rest Imaging at 0810 by [facility]. 53.8 mCi [id number] was administered IV for Stress Imaging at 0930 by [facility]. ADMINISTRATION TIME: 09:30 PATIENT DISCHARGED TO: Patient taken to IP transport area for return to RNF/ICU/ED. A Diagnostic radioactive procedure has taken place, with no further precautions necessary other than routine body substance precautions. More information regarding radiation safety can be found using this link: [email or web address] SIGNATURE: RT Aracely(R) PATIENT NAME: Derrell Hoyt DATE: November 20, 2023 TIME: 9:31 AM PAGER/CONTACT #: [facility] 11-19-2023 Note HNO ID: [id number] Author: AIXA PAEZ DO Service: Hospital Medicine Author Type: Physician Type: Progress Notes Filed: 11/19/2023 21:27 Note Text: INPATIENT PROGRESS NOTE SERVICE DATE: 11/19/2023 SERVICE TIME: 2:49 PM PRIMARY SERVICE: Hospitalist Subjective CHIEF COMPLAINT: Stress testing INTERVAL HPI: Pt feeling fair overall, less lightheaded still slightly short of breath when getting up, blood pressures less orthostatic while having received iv fluids. Had caffeine this morning so stress test deferred to tomorrow. Current Facility-Administered Medications Medication Dose Route Frequency NaCl 0.9% iv flush bag 20 mL INTRAVENOUS PRN melatonin 3 mg tab(s) 3 mg ORAL DAILY (8 PM) acetaminophen 650 mg tab(s) (TYLENOL) 650 mg ORAL q 6 H PRN ipratropium-albuterol 3 mL nebulizer solution (DUONEB) 3 mL INHALATION QID dextrose 40 % 15 g 15 g ORAL PRN Or dextrose 10% iv bolus 12.5 g INTRAVENOUS PRN insulin lispro injection (rapid acting) (ADMElog) SUBCUTANEOUS w MEALS sodium chloride 0.9 % (flush) 2-10 mL (BD POSIFLUSH) 2-10 mL INTRAVENOUS DIRECTED PRN And perflutren lipid microspheres 1.1 mg/mL 1.3 mL injection (DEFINITY) 1.3 mL INTRAVENOUS DIRECTED PRN aspirin, enteric coated 81 mg tab(s) 81 mg ORAL DAILY guaiFENesin 1,200 mg ER tab(s) (MUCINEX) 1,200 mg ORAL BID PRN guaiFENesin 200 mg oral liquid (ROBITUSSIN) 200 mg ORAL AT BEDTIME budesonide 0.5 mg/2 mL 0.5 mg (PULMICORT) 0.5 mg INHALATION BID senna-docusate 8.6-50 mg 2 tablet (SENNA-S) 2 tablet ORAL AT BEDTIME montelukast 10 mg tab(s) (SINGULAIR) 10 mg ORAL AT BEDTIME pantoprazole DR 20 mg tab(s) (PROTONIX) 20 mg ORAL DAILY (6 AM) traZODone 50 mg tab(s) (DESYREL) 50 mg ORAL AT BEDTIME levothyroxine 200 mcg tab(s) (SYNTHROID) 200 mcg ORAL DAILY (6 AM) [START ON 11/20/2023] atorvastatin 80 mg tab(s) (LIPITOR) 80 mg ORAL q 24 HR [START ON 11/20/2023] tamsulosin 0.4 mg cap(s) (FLOMAX) 0.4 mg ORAL q 24 HR magnesium sulfate iv piggyback in sterile water 2 g 50 mL 2 g INTRAVENOUS ONCE NaCl 0.9% iv infusion 100 mL/hr INTRAVENOUS CONTINUOUS metoprolol tartrate (short acting) 25 mg tab(s) (LOPRESSOR) 25 mg ORAL BID Objective PHYSICAL EXAM: BP 137/66 Pulse 94 Temp 98.1 Resp 18 Ht 6' 1 (1.85m) Wt 308 lb 10.3 oz (140.0kg) SpO2 98% BMI 40.73 kg/(m2). O2 Therapy: Room Air Physical Exam Performed GENERAL: Alert, no distress, cooperative, Morbidly Obese, fairly kempt bearded LUNGS: Lungs clear to auscultation, Good diaphragmatic excursion CARDIAC: Normal S1 and S2; no rubs, murmurs, or gallops ABDOMEN: Soft, nontender EXTREMITIES: trace pitting edema bilateral lower extremities, apparent lotion texture NEURO: Grossly normal cognition, motor function, and cranial nerves III-XII DATA: Diagnostic tests reviewed for today's visit: Most recent labs and imaging results. Assessment/Plan Principal Problem: NSVT (nonsustained ventricular tachycardia) (HCC) (POA: Yes) Assessment AND Plan: Being transitioned off sotalol by Cardiology, notably also on trazodone stress test ordered and anticipated tomorrow - would possibly need to be changed to pharm/nuc if pt still orthostatic to be intolerant of exercise. K and Mg to optimize was 3.8 and 1.9 today respectively, received 2 gm magnesium sulfate iv but if persisting could reconsider pantoprazole in favor of famotidine and/or tums, 20 meq potassium chloride also ordered by cardiology with my appreciation. TSH quite elevated at 10.919 but normal T4, pt was on levothyroxine in Cardio's note mentions 225 mcg but 200 mcg appears to have been what's prescribed latest and ordered here - which is not to say pt wouldn't possibly benefit from uptitrating to 225 mcg levothyroxine, questioning first compliance and certainly needs followed up recheck in 4-6 weeks; on further review, it appeared addition of 25 mcg added to the 200 mcg was discussed but I dont see this ever having been dispensed so could prescribe with outpatient follow-up; rate control with metoprolol is anticipated by Cardiology to suffice over sotalol given also pts qtc risk with sotalol and trazodone. Orthostatic hypotension Main complaint seeming related to this, improving with fluids will continue assessing accordingly Iron deficiency anemia Ferritin specifically had not been checked, is actually markedly low at 12.5 so pt would benefit from iv ferrlecit for maybe a few doses then replenished PO, monitor for bleeding sequelae but possibly diet related, pt had been homeless for a time and now at assisted living. COPD Chronically somewhat dyspneic attributed to this, is on budesonide inh BID and duoneb qid at present, normally on Advair BPH Tamsulosin 0.4 mg po daily Insomnia Trazodone 50 mg po at bedtime Insulin dependent type 2 diabetes Home med list suggests dulaglutide and insulin glargine 38 units subcutaneously at bedtime - about to be NPO for stress test and has in (more content not included)... [facility] 11-19-2023 Note HNO ID: [id number] Author: EDGAR STEVENSON LSW Service: Care Management Author Type: Tire Repairman Type: Care Mgt Initial Assessment Filed: 11/19/2023 16:12 Note Text: CARE MANAGEMENT: ASSESSMENT AND DISCHARGE PLAN SERVICE DATE: November 19, 2023 SERVICE TIME: 11:05AM PCP: Reinaldo Paez MD Primary Contact: Extended Emergency Contact Information Primary Emergency Contact: Nikunj Hoyt Relation: Daughter Secondary Emergency Contact: [facility] Relation: Other Admission Status: Inpatient Insurance Provider: [employer]ARE Discharge Planning requested by: Per Department Practice Potential Transition Plans No Services Indicated Advance Directives Current Advance Directive: None Business Solutions Consultant Attempted to Assist with AD Completion: Yes Action: Education Provided;Patient Unwilling Current Living Arrangements and Support Lives with: Type of Residence: Assisted Living Facility Does the patient have to climb stairs at home?: No Care Facility Name: [facility] Support: manager statistics/psych social worker, Home care staff How do you manage to accomplish the following: Independent: Ambulation;Bathe/Shower;Dress;Go ing to the bathroom Needs Assistance: Medication Management Dependent: Meals/Meal Prep;Transportation to appointments/community Current Services/Equipment Current Post-Acute Service(s): None Discharge Planning Patient Goal(s): Increase strength, General wellness [place] [facility] [place] Explained: pt wants to return to current [place] Are you interested in bedside delivery of your medications? No Discharge Planning Participant(s): Patient Patient/Family Comments: Caregiver Assessment: Caregiver is ready, willing and able to meet the patient's needs as recommended by the inter-professional team: No Caregiver needed Transport at Discharge: Transportation Arrangements: [facility] Type of Service: BLS Non-emergency Is Patient Medicaid Pending?: No Was transportation financial coverage discussed with family?: Patient Heel Sander Location: [facility] Destination: [facility] Financial Care Management Responsibility: None Needs Prior to Discharge: Needs Prior to Discharge: To Be Determined;Discharge Prescriptions Post-Acute Discharge Plan: Chart reviewed. patient is a 58-year-old male who resides in an assisted living facility. Reportedly became lightheaded yesterday and nursing supposedly checked on him and noted him to have a low heart rate. [facility] requested transfer to [facility] for evaluation by electrophysiology -pt with several episodes of NSVT, cards consulted -pt with h/o COPD, CHF, DM2, morbid obesity, hypertension Patient lives at [facility] in [place] and pt desires to return there. Pt reports being pretty indpendent at baseline, they provide support for some ADL's. Pt endorses using a walker to ambulate, and has standard AL one floor living, showerseat with grab bars, raised toilet, meals provided along with med management. Facility is currently helping patient to get a liftchair. Pt will need discharge meds/script for his AL to fill through their pharmacy and will need return transportation set up. Initiated referral saved in [facility]. CM to follow for dc back to AL SIGNATURE: ROSALIO Núñez PATIENT NAME: Derrell Hoyt DATE: November 19, 2023 TIME: 2:05 PM CONTACT #: [id number] [facility] 10-22-2023 History of Presen t illness Narrative RADIOLOGY SERVICE PROGRESS NOTE SERVICE DATE: 11/20/2023 SERVICE TIME: 9:31 AM PATIENT IDENTITY VERIFICATION COMPLETED USING TWO (2) STANDARD IDENTIFIERS: Name and Date of confirmed by patient verbally FALL SCREENING: Has the patient had 2 falls in the last year or 1 fall with injury or currently using an Ambulatory Assistive Device (Walker, Cane, Wheelchair, Crutches, etc.)? Inpatient: Screened on floor PATIENT GENDER DATA: .male ALLERGIES: Reviewed and unchanged MEDICATIONS REVIEWED: Not applicable PATIENT RELEVANT IMPLANT DATA REVIEWED: Not Applicable PATIENT PRESENTS WITH AN IMPLANTABLE OR ATTACHED ENVIRONMENTAL ENGINEERING TECHNICIAN: No CREATININE: Creatinine Date Value Ref Range Status 11/20/2023 0.71 0.50 - 1.40 mg/dL Final Comment: Patients receiving either N-Acetylcysteine (NAC) or Metamizole prior to venipuncture, may have falsely depressed results. 11/19/2023 0.61 0.50 - 1.40 mg/dL Final Comment: Patients receiving either N-Acetylcysteine (NAC) or Metamizole prior to venipuncture, may have falsely depressed results. 11/18/2023 0.66 0.50 - 1.40 mg/dL Final Comment: Patients receiving either N-Acetylcysteine (NAC) or Metamizole prior to venipuncture, may have falsely depressed results. Estimated Glomerular Filtration Rate Date Value Ref Range Status 11/20/2023 106 >=60 mL/min/1.73m Final Comment: Estimated Glomerular Filtration Rate (eGFR) is calculated using the 2020 CKD-EPI creatinine equation. This equation utilizes serum creatinine, sex, and age as parameters. The creatinine assay has traceable calibration to isotope dilution-mass spectrometry. Refer to KDIGO guidelines for clinical interpretation. In patients with unstable renal function, e.g. those with acute kidney injury, the eGFR may not accurately reflect actual GFR. eGFR- Date Value Ref Range Status 01/24/2021 >60 Final P.O.C.T. RESULTS: N/A November 20, [address] PERFORMED: No IV SITE: Inpatient - refer to LDA documentation POST EXAM PIV STATUS: Inpatient see LDA documentation PROCEDURE TYPE: NM Stress: 16.9 mCi [id number] was administered IV for Rest Imaging at 0810 by TM. 53.8 mCi [id number] was administered IV for Stress Imaging at 0930 by TM. ADMINISTRATION TIME: 09:30 PATIENT DISCHARGED TO: Patient taken to IP transport area for return to RNF/ICU/ED. A Diagnostic radioactive procedure has taken place, with no further precautions necessary other than routine body substance precautions. More information regarding radiation safety can be found using this link: [email or web address] df SIGNATURE: KAYY Jessica) PATIENT NAME: Derrell Hoyt DATE: November 20, 2023 TIME: 9:31 AM PAGER/CONTACT #: documented in this encounter [facility] 01-31-2021 Note HNO ID: [id number] Author: Kaleb Duckworth APRN.CITY BAILIFF Service: ? Author Type: Nurse Specialist Type: Progress Notes Filed: 01/31/2021 4:52 PM Note Text: I reviewed EKG done today in our office which showed normal sinus rhythm, 70 bpm, QTC 446 ms. Stable to continue sotalol 120 mg every 12 hours. I spoke to patient at this time and he verified that the assisted-living is giving him sotalol 120 mg twice a day and I told him that the same dose should be continued. I reminded him that he needs a 48-hour Holter monitor to be applied about 2 weeks after discharge from the hospital. He has not been notified yet from central scheduling department to schedule it. I tried to give him the phone number for central scheduling so he could call to get it scheduled but he assured me that the assisted living will take care of it. I told him the assisted living might not know what number to call and told him to call our office if he does not get it scheduled within the next week. I informed him that he has follow-up visit in our office with Yuki Hedrick on 02/27/2021 at 9:45 AM. Kaleb Duckworth APRN.CITY BAILIFF [facility] 01-24-2021 Note HNO ID: [id number] Author: Sasha Koehler RN Service: Nursing Author Type: Registered Nurse Type: Progress Notes Filed: 01/24/2021 5:56 PM Note Text: Nurse to Nurse report given to CHIRAG Mirza, at [facility], and provided with patient's pickup up ETA today at 2000. Saran expressed concerns about patient managing his own health at the assisted [facility] and wanted to have the D/C orders postpone until tomorrow, with the hope of having the patient admitted to the skill/jail section of [facility]. This nurse spoke with attending, Dr. Broussard, by which it was stated the patient was cleared to go back to the [facility] with the new medical regimen by the Electro Physiology. At the [facility] patient will not have his new medication available until tomorrow, and this nurse assure to CHIRAG Mirza the patient will have tonight Med prior leaving facility. Per CHIRAG Mirza, she need it the D/C paper be fax to her BANG to [phone]. The discharge paper and MAR were successfully faxed , a copy of the confirmation is in patient's chart. [facility] 01-24-2021 Note HNO ID: [id number] Author: Serenity Virgen RN Service: Care Management Author Type: Registered Nurse Type: Care Mgt Progress Note Filed: 01/24/2021 4:16 PM Note Text: CARE MANAGEMENT DISCHARGE NOTE SERVICE DATE: 01/24/2021 SERVICE TIME: 4:14 PM LOS: 4 days Admission Date: 01/20/2021 DISCHARGE ARRANGEMENT (list agency and phone number) Discharge Arrangement: Assisted living Provider Name: [facility] CAREGIVER ASSESSMENT: HANDOFF COMMUNICATION: Handoff to: Primary Care Physician Primary Care Physician Name/Phone: Dr. Reinaldo Paez [phone] TRANSPORTATION ARRANGEMENTS: Transportation Arrangements: Ambulance/[facility] Transportation Agency and Phone #:: [facility] ( [facility] ) [phone] / [phone] Date of Trip: 01/24/21 Time of Trip: 1999 Type of Service: Wheelchair Is Patient Medicaid Pending?: No Discussion of financial coverage occurred with: Patient Heel Sander Location: [facility] Destination: [facility] Financial Care Management Responsibility: None ADDITIONAL CONTACT RESOURCES: none Patient has been discharged and will return to [facility]. [employer] is transporting patient via at 20:00. Patient notified who will contact his dtr. Morgan. BEARD aware of discharge time. SIGNATURE: Serenity Virgen RN PATIENT NAME: Derrell Hoyt DATE: January 24, 2021 TIME: 4:14 PM PAGER/CONTACT #: [phone] [facility] 01-24-2021 Note HNO ID: [id number] Author: Jose Carlos Dean RPh Service: Pharmacy Author Type: Pharmacist Type: Plan of Care Filed: 01/24/2021 4:10 PM Note Text: DISCHARGE MEDICATION REVIEW AND COUNSELING BY PHARMACY Patient Name: Derrell Hoyt Account #: Data Unavailable Admission Date: 01/20/2021 Date of Contact: January 24, 2021 Time of Contact: 3:46 PM LEARNERS Persons Present: Patient Primary Learner: Patient Medication list was reviewed by a Pharmacist for drug interactions or drug related problems:Yes Below is a summary of pharmacist recommendations discussed with LIP: ? The following medications were discussed with LIP for further review: Atorvastatin 10mg 8tablet qdaily I have discussed the recommendations and the medication orders have been addressed by LIP. ? Order changed to atorvastatin 80mg qdaily Spoke with patient. He is very energetic and excited to go back to his facility. Pt had a question about heart rate medication that he received for stent and the one hes continuing. Clarified to the patient that it is the same medication. READINESS TO LEARN COGNITIVE ABILITY:Alert and oriented MOTIVATION TO LEARN:Interested FAMILY SUPPORT:Unable to assess - Family not present INSTRUCTION PROVIDED TO:Patient PATIENT LEARNS BEST BY:Unable to Assess FACTORS AFFECTING LEARNING:None PHYSICAL LIMITATIONS AFFECTING LEARNING:None LEARNING RESPONSE PATIENT / FAMILY RESPONSE:Verbalizes understanding of: Accurate knowledge of prescribed medication prior to discharge. Daria Luh, [facility] January 24, 2021 3:46 PM Medication List START taking these medications ticagrelor 90 mg tablet Commonly known as: BRILINTA Take 1 tablet by mouth twice daily. TRULICITY 4.5 mg/0.5 mL pen injector Generic drug: dulaglutide Inject 4.5 mg subcutaneously one time a week. Replaces: TRULICITY 3 mg/0.5 mL pen injector CHANGE how you take these medications aspirin, enteric coated 81 mg EC tablet Commonly known as: ASPIRIN, ENTERIC COATED Take 1 tablet by mouth once daily. What changed: additional instructions atorvastatin 80 mg tablet Commonly known as: LIPITOR Take 1 tablet by mouth once daily. What changed: ? medication strength ? how much to take Blood-Glucose Meter monitoring kit Commonly known as: FREESTYLE LITE METER Freestyle LITE Meter Kit - What changed: ? how much to take ? how to take this ? when to take this Lancets lancets Commonly known as: FREESTYLE LANCETS Test blood sugar(s) 2 times daily. Dx: DM 250.0 Insulin: No What changed: ? how much to take ? how to take this ? when to take this ? additional instructions CONTINUE taking these medications acetaminophen 325 mg tablet Commonly known as: TYLENOL albuterol HFA 90 mcg/actuation inhaler Commonly known as: PROVENTIL HFA, VENTOLIN HFA benzocaine 20 % Gel blood sugar diagnostic test strip Commonly known as: FREESTYLE LITE STRIPS Test blood sugar(s) 1 times daily. Dx: Type 2 diabetes E11.9. carboxymethylcellulose sodium 1 % drops Commonly known as: ARTIFICIAL TEARS citalopram 20 mg tablet Commonly known as: CeleXA DULoxetine 60 mg capsule Commonly known as: CYMBALTA furosemide 40 mg tablet Commonly known as: LASIX * guaiFENesin 100 mg/5 mL syrup Commonly known as: ROBITUSSIN * guaiFENesin 600 mg 12 hr tablet Commonly known as: MUCINEX GVOKE HYPOPEN 1-PACK 1 mg/0.2 mL Autoinjector Generic drug: glucagon * levothyroxine 200 mcg tablet Commonly known as: SYNTHROID * levothyroxine 25 mcg tablet Commonly known as: SYNTHROID lisinopril 10 mg tablet Commonly known as: PriniviL Take 1 tablet by mouth once daily. metFORMIN 1,000 mg tablet Commonly known as: GLUCOPHAGE metoprolol tartrate (short acting) 25 mg tablet Commonly known as: LOPRESSOR mometasone-formoterol 100-5 mcg/actuation inhaler Commonly known as: DULERA MYLANTA MAXIMUM STRENGTH 400-400-40 mg/5 mL suspension Generic drug: aluminum AND magnesium hydroxide-simethicone potassium chloride ER 20 mEq tablet Commonly known as: K-DUR, KLOR-CON senna-docusate 8.6-50 mg per tablet Commonly known as: SENNA-S tamsulosin 0.4 mg Commonly known as: FLOMAX * This list has 4 medication(s) that are the same as other medications prescribed for you. Read the directions carefully, and ask your doctor or other care provider to review them with you. STOP taking these medications dextrose 40 % Gel glipiZIDE 5 mg tablet Commonly known as: GLUCOTROL TRULICITY 3 mg/0.5 mL pen injector Generic drug: dulaglutide Replaced by: TRULICITY 4.5 mg/0.5 mL pen injector Where to Get Your Medications These medications were sent to [facility] [address] [place] [address] - [phone] [place], [place] [id number] ? aspirin, enteric coated 81 mg EC tablet ? atorvastatin 80 mg tablet ? ticagrelor 90 mg tablet ? TRULICITY 4.5 mg/0.5 mL pen injector [facility] 01-24-2021 Note HNO ID: [id number] Author: Serenity Virgen RN Service: Care Management Author Type: Registered Nurse Type: Care Mgt Progress Note Filed: 01/24/2021 1:51 PM Note Text: CARE MANAGEMENT PROGRESS NOTE SERVICE DATE: 01/24/2021 SERVICE TIME: 1:46 PM LOS: 4 days Needs Prior to Discharge: Discharge Prescriptions;Pharmacy Bedside Delivery Epic reviewed. Patient with NSVT and frequent PVC's. Continuing with po Sotalol. No EP study or catheter ablation planned for now. Discharge plan is return to [facility] when medically ready . SIGNATURE: Serenity Virgen RN PATIENT NAME: Derrell Hoyt DATE: January 24, 2021 TIME: 1:46 PM PAGER/CONTACT #: [phone] [facility] 01-24-2021 Note HNO ID: [id number] Author: Karolina Broussard MD Service: Hospital Medicine Author Type: Physician Type: Progress Notes Filed: 01/24/2021 8:46 PM Note Text: HOUSE MEDICINE SERVICE PROGRESS NOTE SERVICE DATE: January 24, 2021 SERVICE TIME: 6:45 AM NIGHT AND WEEKEND COVERAGE: From 6 AM to 5 PM: You may reach the House Medicine regulatory intern currently assigned to this patient by finding their pager number on the treatment team (they will be assigned as the regulatory intern or resident). It is the last [phone] in the phone number beginning with ([phone]). We encourage the use of [employer] Secure Chat. SUBJECTIVE HPI: This is a 55 year old male with PMH of MDD, T2DM, HTN, COPD, NAFLD, Papillary Thyroid Carcinoma s/p Thyroidectomy --> Hypothyroidism presented [place] ED due to palpitations. Patient states he felt like his heart was beating slower than normal. Patient was recently admitted for acute CHF exacerbation, EF (60% 12/2020), and underwent cath. Patient received stent in mid LAD and treated w/ Lasix and metoprolol. Also was treated for AECOPD on steroids and breathing tx. During admission patient had runs of NSVT and was started on amio drip. Patient did not respond well to transition to oral amiodarone and was kept on drip. Patient transferred to [facility] under EP for possible ablation. Outside Echo (01/18/21) showed EF 60%, mild LA enlargement, mild focal aortic calcification, trivial TV/MV insufficiency. Most recent outside hospital labs showed WBC 22.7, HgB 13.5, PLT 185, K 4.6, Na 133, CL 102, Mg 2.2, Glu 204, Cr 0.85, Pro-BNP 222, free T4 1.12, TSH 3.81, HDL 28, LDL 50, Total cholesterol 116. CXR obtained two days ago show findings consistent with CHF and left basilar atelectasis. Upon evaluation patient states he is currently asymptomatic, denies chest pain, palpitations, SOB, dizziness, abdominal pain, fever, chills, nausea, emesis, constipation, diarrhea, dysuria. Currently labs electrolytes, CBC, CMP being obtained along with CXR. In CVICU he the amiodarone drip was continued. EP study or catheter ablation for the ventricular arrhythmia(s) was not recommended at this time. Dr. Vinson recommended antiarrhythmic drug therapy. Discontinued the IV amiodarone and will start PO sotalol tonight. So far he has tolerated the transition well and it is recommended that he continue to be followed up on the floor. However while on the floor he is to be followed up with daily EKGs to monitor for formation of new arrhythmias before his discharge to home Review of Systems Constitutional: Negative for chills and fever. Respiratory: Negative for shortness of breath. Cardiovascular: Negative for chest pain and palpitations. Gastrointestinal: Negative for abdominal pain. Musculoskeletal: Negative for myalgias. Interval Events: Improved Reports doing very well. No sob, chest pain, palpitations or dizziness. Feels ready to go home. OBJECTIVE Medications: IV Infusions: Scheduled: enoxaparin, 60 mg, q 12 HR [MAR Hold due to Transfer] levothyroxine, 225 mcg, DAILY (6 AM) insulin lispro, , w MEALS sotalol, 120 mg, q 12 H lisinopril, 10 mg, DAILY fluticasone-vilanterol, 1 Inhalation, DAILY citalopram, 20 mg, DAILY aspirin, enteric coated, 81 mg, DAILY sodium chloride 0.9 % (flush), 3-5 mL, q 12 H rosuvastatin, 40 mg, AT BEDTIME ticagrelor, 90 mg, BID PRN: NaCl 0.9%, 20 mL, PRN dextrose, 15 g, PRN Or glucagon, 1 mg, PRN Or dextrose 50% in water, 12.5 g, PRN Vital Signs: BP 135/76 Pulse 68 Temp (Src) 96.8 (Axillary) Resp 16 Ht 6' 0 (1.83m) Wt 361 lb 1.6 oz (163.8kg) SpO2 96% BMI 48.96 kg/(m2). O2 Therapy: Nasal Cannula, Liters: 2 Physical Exam Performed: HENT: Head: Normocephalic. Eyes: Extraocular Movements: Extraocular movements intact. Cardiovascular: Rate and Rhythm: Normal rate and regular rhythm. Pulmonary: Effort: Pulmonary effort is normal. No respiratory distress. Breath sounds: Normal breath sounds. Abdominal: General: There is no distension. Palpations: Abdomen is soft. Musculoskeletal: General: No swelling. Normal range of motion. Neurological: General: No focal deficit present. Mental Status: He is alert. Lines, Drains, and Airways Line Peripheral 01/20/212117 Left Forearm 20 Gauge 3 days Reviewed lines and needs to be continued: REASONS: Telemetry Data: I have reviewed all of the lab / imaging / pathology from today. Pertinent study results include: None Recent Labs 01/24/21346 CA 8.8 Recent Labs 01/24/21347 WBC 13.28* RBC 4.52 HB 13.9 HCT 43.0 PLT 199 MCV 95.1 MCH 30.8 MPV 10.2 ABSNEUT 9.53* NEUTP 71.7 LYMPHP 14.7 MONOP 5.3 Recent Labs 01/24/21346 GLUC 156* NA 135* K 4.7 CHLOR 99 CO2 28 CREAT 0.69* BUN 13 ANION 8* CA 8.8 TPROT 7.0 ALB 3.9 TBILI 0.6 ALKPHOS 252* AST 33 ALT 36 Recent Labs 01/24/2134601/23/212010 GLUC 15 (more content not included)... [facility] 01-23-2021 Note HNO ID: [id number] Author: Kyra Hinson RN Service: Nursing Author Type: Registered Nurse Type: Nursing Progress Note Filed: 01/23/2021 5:38 PM Note Text: Summary: transfer note Telephone report to Alise BEARD 4200. Plan to transfer when bed is ready. [facility] 01-23-2021 Note HNO ID: [id number] Author: Jose Carlos Dean [facility] Service: Pharmacy Author Type: Pharmacist Type: Plan of Care Filed: 01/24/2021 12:08 PM Note Text: PHARMACY MEDICATION REVIEW Patient Name: Derrell Hoyt : 1965 The following medications were updated within the [facility] medication list: Medications ADDED to [employer] medication list acetaminophen (TYLENOL) 325 mg tablet Take 650 mg by mouth every 4 hours as needed for pain or fever (specify). benzocaine 20 % gel Use 1 application as instructed as needed (sore gums). One dental application every 4 hours as needed for sore gums (supervised self-administration) carboxymethylcellulose sodium (ARTIFICIAL TEARS) 1 % drops Use 1 Drop in both eyes as needed (dry eyes). atorvastatin (LIPITOR) 10 mg tablet Take 10 mg by mouth once daily. mometasone-formoterol (DULERA) 100-5 mcg/actuation inhaler Inhale 2 Puffs as instructed twice daily. DULoxetine (CYMBALTA) 60 mg capsule Take 60 mg by mouth once daily. furosemide (LASIX) 40 mg tablet Take 40 mg by mouth twice daily. guaiFENesin (ROBITUSSIN) 100 mg/5 mL syrup Take 200 mg by mouth daily at bedtime. For cough glipiZIDE (GLUCOTROL) 5 mg tablet Take 5 mg by mouth twice daily before meals. dextrose 40 % gel Take 15 g by mouth as needed (for hypoglycemia). Supervised self-administration guaiFENesin (MUCINEX) 600 mg 12 hr tablet Take 1,200 mg by mouth twice daily as needed (congestion). glucagon (GVOKE HYPOPEN 1-PACK) 1 mg/0.2 mL AutoInjector Inject 1 Dose subcutaneously as needed (for unresponsive hypoglycemia). levothyroxine (SYNTHROID) 200 mcg tablet Take 200 mcg by mouth daily before breakfast. Add to 25 mcg tablet for a total dose of 225 mcg each morning. levothyroxine (SYNTHROID) 25 mcg tablet Take 25 mcg by mouth daily before breakfast. Add to 200 mcg tablet for a total dose of 225 mcg each morning. metoprolol tartrate, short acting, (LOPRESSOR) 25 mg tablet Take 25 mg by mouth twice daily. For frequent PVCs. Hold medication if pulse is <55 aluminum AND magnesium hydroxide-simethicone (MYLANTA MAXIMUM STRENGTH) 400-400-40 mg/5 mL suspension Take 15 mL by mouth every 3 hours as needed (indigestion). potassium chloride ER (K-DUR, KLOR-CON) 20 mEq tablet Take 20 mEq by mouth daily in the late morning. senna-docusate (SENNA-S) 8.6-50 mg per tablet Take 2 tablets by mouth daily at bedtime. tamsulosin (FLOMAX) 0.4 mg Take 0.4 mg by mouth daily at bedtime. dulaglutide (TRULICITY) 3 mg/0.5 mL pen injector Inject 3 mg subcutaneously one time a week. Every Friday. Medications CHANGED on [employer] medication list metFORMIN (GLUCOPHAGE) 1,000 mg tablet Take 1,000 mg by mouth twice daily with meals. Give one tablet in the morning and one tablet in the afternoon (supervised self-administration) albuterol HFA (PROVENTIL HFA, VENTOLIN HFA) 90 mcg/actuation inhaler Inhale 2 Puffs as instructed every 4 hours as needed for wheezing/shortness of breath. citalopram (CELEXA) 20 mg tablet Take 20 mg by mouth once daily. Medications REMOVED from [employer] medication list levothyroxine (SYNTHROID) 300 mcg tablet (See new strength above) Take 200 mcg by mouth daily before breakfast. aspirin, enteric coated (ASPIRIN, ENTERIC COATED) 81 mg EC tablet (not on [facility]) Take 1 tablet by mouth once daily. Patient taking differently: Take 81 mg by mouth once daily. Taking prn simvastatin (ZOCOR) 80 mg tablet (takes atorvastatin) Take 1 tablet by mouth daily at bedtime. Patient not taking: Reported on 04/12/2019 buPROPion SR (ZYBAN SR; WELLBUTRIN SR) 150 mg 12 hr tablet (not on [facility]) Take 1 tablet by mouth once daily. fluticasone-vilanterol (BREO ELLIPTA) 100-25 mcg/dose inhaler (uses Dulera) Inhale 1 Inhalation as instructed once daily. collagenase (SANTYL) ointment (not on [facility]) Apply 1 application to affected area once daily. Gauze Bandage 4 X 4 bndg (entry is from March 2019; not in [facility]) Apply 1 application to affected area once daily. sodium chloride (STERILE SALINE) 0.9 % IRRIGATION (entry is from March 2019; not in [facility]) Wet gauze pads liberally, cover ulcer. Gauze Bandage 3 X 75 bndg (entry is from March 2019; not in [facility]) Apply 1 application to affected area once daily. Adhesive Tape (PAPER TAPE) 1 X 10 -yard tape (entry is from March 2019; not in [facility]) Apply 1 application to affected area once daily. Non-Adherent Bandage (TELFA) 8 X 10 bndg (entry is from March 2019; not in [facility]) Apply 1 application to affected area once daily. 4 x 8 inch Additional comments: N/A The below information represents the best possible medication history: Yes Medication history completed by: Pharmacist: Stephanie Hernandez RPh Source of history: [facility]Other [facility] - [facility]- faxed from [facility] care facility Medication nonadherence identified: No b (more content not included)... [facility] 01-23-2021 Note HNO ID: [id number] Author: Mikhail Vinson MD Service: Cardiovascular Medicine Author Type: Physician Type: Progress Notes Filed: 01/23/2021 3:29 PM Note Text: [facility] CVICU PROGRESS NOTE Service Date: 01/23/2021 Service Time: 8:32 AM HPI: This is a 55 year old male with PMH of MDD, T2DM, HTN, COPD, NAFLD, Papillary Thyroid Carcinoma s/p Thyroidectomy --> Hypothyroidism presented [facility] due to palpitations. Patient states he felt like his heart was beating slower than normal. Patient was recently admitted for acute CHF exacerbation, EF (60% 12/2020), and underwent cath. Patient received stent in mid LAD and treated w/ Lasix and metoprolol. Also was treated for AECOPD on steroids and breathing tx. During admission patient had runs of NSVT and was started on amio drip. Patient did not respond well to transition to oral amiodarone and was kept on drip. Patient transferred to [facility] under EP for possible ablation. Outside Echo (01/18/21) showed EF 60%, mild LA enlargement, mild focal aortic calcification, trivial TV/MV insufficiency. Review of Systems Constitutional: Negative for chills and fever. Respiratory: Negative for shortness of breath. Cardiovascular: Negative for chest pain and palpitations. Gastrointestinal: Negative for abdominal pain. Musculoskeletal: Negative for myalgias. Interval History: No acute issues overnight. Telemetry: Random PVCs present. Inpatient Medications: Current Facility-Administered Medications Medication Dose Route Frequency lisinopril 10 mg tab(s) (ZESTRIL, PRINIVIL) 10 mg ORAL DAILY fluticasone-vilanterol 100-25 mcg/dose 1 Inhalation (BREO ELLIPTA) 1 Inhalation INHALATION DAILY citalopram 20 mg tab(s) (CeleXA) 20 mg ORAL DAILY aspirin, enteric coated 81 mg tab(s) 81 mg ORAL DAILY potassium chloride ER 20-40 mEq tab(s) (K-DUR, KLOR-CON) 20-40 mEq ORAL/FEEDING TUBE PRN Or potassium chloride iv piggyback 20 mEq/100 mL 20 mEq INTRAVENOUS PRN magnesium sulfate in sterile water 2 g in sterile water 50 ml 2 g INTRAVENOUS PRN sodium phosphate 45 mmol in NaCl 0.9% 250 mL 45 mmol INTRAVENOUS PRN calcium gluconate 4 g in NaCl 0.9% 250 mL 4 g INTRAVENOUS PRN enoxaparin 40 mg injection (LOVENOX) 40 mg SUBCUTANEOUS q 24 HR NaCl 0.9% iv flush bag 20 mL INTRAVENOUS PRN sodium chloride 0.9 % (flush) 3-5 mL (BD POSIFLUSH) 3-5 mL INTRAVENOUS q 12 H dextrose 40 % 15 g 15 g ORAL PRN Or glucagon 1 mg injection 1 mg INTRAMUSCULAR PRN Or dextrose 50% in water 25 mL syringe 12.5 g INTRAVENOUS PRN insulin lispro pen (rapid acting) (HumaLOG KWIKPEN) SUBCUTANEOUS q 6 H rosuvastatin 40 mg tab(s) (CRESTOR) 40 mg ORAL AT BEDTIME levothyroxine 200 mcg tab(s) (SYNTHROID) 200 mcg ORAL DAILY ticagrelor 90 mg tab(s) (BRILINTA) 90 mg ORAL BID sotalol 120 mg (BETAPACE) 120 mg ORAL q 12 H Home Medications: lisinopril (PRINIVIL) 10 mg tablet, Take 1 tablet by mouth once daily. metFORMIN (GLUCOPHAGE) 500 mg tablet, Take 2 tablets by mouth twice daily with meals. collagenase (SANTYL) ointment, Apply 1 application to affected area once daily. citalopram (CELEXA) 40 mg tablet, Take 0.5 tablets by mouth once daily. Gauze Bandage 4 X 4 bndg, Apply 1 application to affected area once daily. sodium chloride (STERILE SALINE) 0.9 % IRRIGATION, Wet gauze pads liberally, cover ulcer. Gauze Bandage 3 X 75 bndg, Apply 1 application to affected area once daily. Adhesive Tape (PAPER TAPE) 1 X 10 -yard tape, Apply 1 application to affected area once daily. Non-Adherent Bandage (TELFA) 8 X 10 bndg, Apply 1 application to affected area once daily. 4 x 8 inch levothyroxine (SYNTHROID) 300 mcg tablet, Take 1 tablet by mouth once daily. albuterol HFA (PROAIR HFA) 90 mcg/actuation inhaler, Inhale 2 Puffs as instructed every 6 hours as needed for Wheezing/Shortness of Breath. fluticasone-vilanterol (BREO ELLIPTA) 100-25 mcg/dose inhaler, Inhale 1 Inhalation as instructed once daily. buPROPion SR (ZYBAN SR; WELLBUTRIN SR) 150 mg 12 hr tablet, Take 1 tablet by mouth once daily. simvastatin (ZOCOR) 80 mg tablet, Take 1 tablet by mouth daily at bedtime. aspirin, enteric coated (ASPIRIN, ENTERIC COATED) 81 mg EC tablet, Take 1 tablet by mouth once daily. blood sugar diagnostic (FREESTYLE LITE STRIPS) test strip, Test blood sugar(s) 1 times daily. Dx: Type 2 diabetes E11.9. Blood-Glucose Meter (FREESTYLE LITE METER) monitoring kit, Freestyle LITE Meter Kit - Lancets (FREESTYLE LANCETS) lancets, Test blood sugar(s) 2 times daily. Dx: DM 250.0 Insulin: No Physical Exam: 01/23/21 0500 01/23/21 0600 01/23/21 0700 01/23/21 0800 BP: 107/64 114/50 102/58 Pulse: 70 75 73 Resp: 15 17 17 Temp: 36.2 ?C (97.2 ?F) TempSrc: SpO2: 96% 93% 93% Weight: Height: Physical Exam HENT: Head: Normocephalic. Eyes: Extraocular Movements: Extraocular movements intact. Cardiovascular: Rate and Rhythm: Normal rate and r (more content not included)... [facility] 01-22-2021 Note HNO ID: [id number] Author: Eren Spence MD Service: Electrophysiology Author Type: Physician Type: Progress Notes Filed: 01/22/2021 1:40 PM Note Text: PROGRESS NOTE CARDIOLOGY SERVICE [facility] Electrophysiology (EP) SERVICE DATE: 01/22/2021 SERVICE TIME: 1:29 PM Subjective INTERIM HISTORY: Mr. Hoyt has no complaints, states he feels well. No chest pain, shortness of breath, lightheadedness, palpitations. Objective PHYSICAL EXAM: Body mass index is 50.18 kg/m?. O2 Therapy: Room Air No data recorded Patient Vitals for the past 24 hrs: BP Temp Temp src Pulse Resp SpO2 01/22/21 1115 119/60 ? ? 73 18 93 % 01/22/21 1100 ? (!) 35.9 ?C (96.6 ?F) ? 72 18 94 % 01/22/21 1000 ? ? ? 77 15 93 % 01/22/21 0900 ? ? ? 80 19 94 % 01/22/21 0800 ? ? ? 76 14 97 % 01/22/21 0700 (!) 98/49 (!) 35.6 ?C (96.1 ?F) ? 69 15 96 % 01/22/21 0600 115/67 ? ? 67 16 97 % 01/22/21 0500 117/69 ? ? 64 14 99 % 01/22/21 0400 98/55 ? ? 65 14 91 % 01/22/21 0300 110/71 36.3 ?C (97.3 ?F) Temporal 66 15 97 % 01/22/21 0200 108/68 ? ? 69 14 97 % 01/22/21 0100 129/69 ? ? 69 19 97 % 01/22/21 0000 119/73 ? ? 67 13 100 % 01/21/21 2300 119/68 ? ? 66 14 99 % 01/21/21 2200 103/65 ? ? 66 13 99 % 01/21/21 2100 125/69 ? ? 70 17 100 % 01/21/21 1941 ? 36.6 ?C (97.9 ?F) Temporal ? ? ? 01/21/21 1900 107/65 ? ? 74 20 100 % 01/21/21 1800 107/61 ? ? 75 16 100 % 01/21/21 1700 116/74 ? ? 71 18 96 % 01/21/21 1600 111/74 ? ? 73 16 94 % 01/21/21 1500 115/65 ? ? 71 17 94 % 01/21/21 1400 109/63 ? ? 73 18 96 % Pleasant, comfortable, not in acute distress. Awake, alert, oriented times 3. Moves all extremities. SKIN: No rash or lumps. HEENT: Normocephalic, face symmetrical. EYES: EOMI NECK: No jugulovenous distention, Supple LUNGS: Clear to auscultation bilaterally. CARDIAC: Rhythm: regular rate and rhythm, Rate: normal, no loud murmurs or rubs ABDOMEN: Soft, nontender, bowel sounds present. +obesity EXTREMITIES: 1-2+ pitting edema both legs below knees, with chronic venous stasis changes NEURO: grossly nonfocal motor MEDICATIONS: Current Facility-Administered Medications Medication Dose Route Frequency - lisinopril 10 mg tab(s) (ZESTRIL, PRINIVIL) 10 mg ORAL DAILY - fluticasone-vilanterol 100-25 mcg/dose 1 Inhalation (BREO ELLIPTA) 1 Inhalation INHALATION DAILY - citalopram 20 mg tab(s) (CeleXA) 20 mg ORAL DAILY - aspirin, enteric coated 81 mg tab(s) 81 mg ORAL DAILY - potassium chloride ER 20-40 mEq tab(s) (K-DUR, KLOR-CON) 20-40 mEq ORAL/FEEDING TUBE PRN Or - potassium chloride iv piggyback 20 mEq/100 mL 20 mEq INTRAVENOUS PRN - magnesium sulfate in sterile water 2 g in sterile water 50 ml 2 g INTRAVENOUS PRN - sodium phosphate 45 mmol in NaCl 0.9% 250 mL 45 mmol INTRAVENOUS PRN - calcium gluconate 4 g in NaCl 0.9% 250 mL 4 g INTRAVENOUS PRN - enoxaparin 40 mg injection (LOVENOX) 40 mg SUBCUTANEOUS q 24 HR - NaCl 0.9% iv flush bag 20 mL INTRAVENOUS PRN - sodium chloride 0.9 % (flush) 3-5 mL (BD POSIFLUSH) 3-5 mL INTRAVENOUS q 12 H - dextrose 40 % 15 g 15 g ORAL PRN Or - glucagon 1 mg injection 1 mg INTRAMUSCULAR PRN Or - dextrose 50% in water 25 mL syringe 12.5 g INTRAVENOUS PRN - insulin lispro pen (rapid acting) (HumaLOG KWIKPEN) SUBCUTANEOUS q 6 H - rosuvastatin 40 mg tab(s) (CRESTOR) 40 mg ORAL AT BEDTIME - levothyroxine 200 mcg tab(s) (SYNTHROID) 200 mcg ORAL DAILY - ticagrelor 90 mg tab(s) (BRILINTA) 90 mg ORAL BID - sotalol 120 mg (BETAPACE) 120 mg ORAL q 12 H DATA: Diagnostic tests reviewed for today's visit: Most recent labs and imaging results. Most recent EKG Most recent telemetry monitoring Outside chart from [facility], Dr. Moodispaw reviewed. Past 72 Hour Labs: Recent Labs 01/22/21 0541 01/21/21 0349 01/20/21 2354 WBC 13.00* < > -- RBC 4.36 < > -- HB 13.2 < > -- HCT 41.8 < > -- MCV 95.9 < > -- MCH 30.3 < > -- MCHC 31.6 < > -- RDWCV 14.8 < > -- PLT 177 < > -- MPV 10.5 < > -- NEUTP 77.3 < > -- LYMPHP 11.5 < > -- MONOP 6.0 < > -- BASOP 0.5 < > -- ABSNEUT 10.05* < > -- ABSMONO 0.78 < > -- ABSEOSIN 0.51* < > -- ABSBASO 0.07 < > -- GLUC 175* < > -- BUN 14 < > -- CREAT 0.82 < > -- NA 133* < > -- K 4.4 < > -- CHLOR 98 < > -- CO2 27 < > 24.0* TPROT 6.8 < > -- ALB 3.8* < > -- CA 8.7 < > -- ALKPHOS 217* < > -- TBILI 0.5 < > -- AST 30 < > -- ALT 33 < > -- MG -- -- 2.0 < > = values in this interval not displayed. Last Lab Drawn: TSH 61.040 07/02/2018 Triglycerides, Nonfasting 614 04/12/2019 HDL Cholesterol, Nonfasting 27 04/12/2019 LDL Chol, [facility] Value: Unable to calculate due to increased Triglycerides. See LDL-Chol, Direct. 04/12/2019 Total Cholesterol, Nonfasting 219 04/12/2019 Assessment/Plan Principal Problem: Ventricular tachycardia, nonsustained (HCC) POA: Yes Assessment AND Plan: NSVT; seems to be stable now, not much arrhythmia by cardiac monitoring (more content not included)... [facility] 01-22-2021 Note HNO ID: [id number] Author: Bethany Douglass MD Service: Hospital Medicine Author Type: Resident Type: Progress Notes Filed: 01/22/2021 2:04 PM Note Text: Attestation signed by Eren Spence MD at 01/22/2021 2:10 PM [facility] Electrophysiology (EP) EP Attending Attending Note I personally saw and examined the patient. I reviewed the resident's note. I agree with the resident's assessment and plan unless otherwise noted (see my separate progress note from today where I articulate my treatment plan). Signature: Eren Spence MD Date: 01/22/2021 Time: 2:09 PM [facility] CVICU PROGRESS NOTE Service Date: 01/22/2021 Service Time: 7:31 AM HPI: This is a 55 year old male with PMH of MDD, T2DM, HTN, COPD, NAFLD, Papillary Thyroid Carcinoma s/p Thyroidectomy --> Hypothyroidism presented [facility] due to palpitations. Patient states he felt like his heart was beating slower than normal. Patient was recently admitted for acute CHF exacerbation, EF (60% 12/2020), and underwent cath. Patient received stent in mid LAD and treated w/ Lasix and metoprolol. Also was treated for AECOPD on steroids and breathing tx. During admission patient had runs of NSVT and was started on amio drip. Patient did not respond well to transition to oral amiodarone and was kept on drip. Patient transferred to [facility] under EP for possible ablation. Outside Echo (01/18/21) showed EF 60%, mild LA enlargement, mild focal aortic calcification, trivial TV/MV insufficiency. Interval History: No acute events overnight. Telemetry: Inpatient Medications: Current Facility-Administered Medications Medication Dose Route Frequency - lisinopril 10 mg tab(s) (ZESTRIL, PRINIVIL) 10 mg ORAL DAILY - fluticasone-vilanterol 100-25 mcg/dose 1 Inhalation (BREO ELLIPTA) 1 Inhalation INHALATION DAILY - citalopram 20 mg tab(s) (CeleXA) 20 mg ORAL DAILY - aspirin, enteric coated 81 mg tab(s) 81 mg ORAL DAILY - potassium chloride ER 20-40 mEq tab(s) (K-DUR, KLOR-CON) 20-40 mEq ORAL/FEEDING TUBE PRN Or - potassium chloride iv piggyback 20 mEq/100 mL 20 mEq INTRAVENOUS PRN - magnesium sulfate in sterile water 2 g in sterile water 50 ml 2 g INTRAVENOUS PRN - sodium phosphate 45 mmol in NaCl 0.9% 250 mL 45 mmol INTRAVENOUS PRN - calcium gluconate 4 g in NaCl 0.9% 250 mL 4 g INTRAVENOUS PRN - enoxaparin 40 mg injection (LOVENOX) 40 mg SUBCUTANEOUS q 24 HR - NaCl 0.9% iv flush bag 20 mL INTRAVENOUS PRN - sodium chloride 0.9 % (flush) 3-5 mL (BD POSIFLUSH) 3-5 mL INTRAVENOUS q 12 H - dextrose 40 % 15 g 15 g ORAL PRN Or - glucagon 1 mg injection 1 mg INTRAMUSCULAR PRN Or - dextrose 50% in water 25 mL syringe 12.5 g INTRAVENOUS PRN - insulin lispro pen (rapid acting) (HumaLOG KWIKPEN) SUBCUTANEOUS q 6 H - metoprolol tartrate (short acting) 25 mg tab(s) (LOPRESSOR) 25 mg ORAL q 12 H - rosuvastatin 40 mg tab(s) (CRESTOR) 40 mg ORAL AT BEDTIME - levothyroxine 200 mcg tab(s) (SYNTHROID) 200 mcg ORAL DAILY - amiodarone iv infusion 360 mg in D5W 200 mL (NEXTERONE) 0.5 mg/min INTRAVENOUS CONTINUOUS - ticagrelor 90 mg tab(s) (BRILINTA) 90 mg ORAL BID Home Medications: lisinopril (PRINIVIL) 10 mg tablet, Take 1 tablet by mouth once daily. metFORMIN (GLUCOPHAGE) 500 mg tablet, Take 2 tablets by mouth twice daily with meals. collagenase (SANTYL) ointment, Apply 1 application to affected area once daily. citalopram (CELEXA) 40 mg tablet, Take 0.5 tablets by mouth once daily. Gauze Bandage 4 X 4 bndg, Apply 1 application to affected area once daily. sodium chloride (STERILE SALINE) 0.9 % IRRIGATION, Wet gauze pads liberally, cover ulcer. Gauze Bandage 3 X 75 bndg, Apply 1 application to affected area once daily. Adhesive Tape (PAPER TAPE) 1 X 10 -yard tape, Apply 1 application to affected area once daily. Non-Adherent Bandage (TELFA) 8 X 10 bndg, Apply 1 application to affected area once daily. 4 x 8 inch levothyroxine (SYNTHROID) 300 mcg tablet, Take 1 tablet by mouth once daily. albuterol HFA (PROAIR HFA) 90 mcg/actuation inhaler, Inhale 2 Puffs as instructed every 6 hours as needed for Wheezing/Shortness of Breath. fluticasone-vilanterol (BREO ELLIPTA) 100-25 mcg/dose inhaler, Inhale 1 Inhalation as instructed once daily. buPROPion SR (ZYBAN SR; WELLBUTRIN SR) 150 mg 12 hr tablet, Take 1 tablet by mouth once daily. simvastatin (ZOCOR) 80 mg tablet, Take 1 tablet by mouth daily at bedtime. aspirin, enteric coated (ASPIRIN, ENTERIC COATED) 81 mg EC tablet, Take 1 tablet by mouth once daily. blood sugar diagnostic (FREESTYLE LITE STRIPS) test strip, Test blood sugar(s) 1 times daily. Dx: Type 2 diabetes E11.9. Blood-Glucose Meter (FREESTYLE LITE METER) monitoring kit, Freestyle LITE Meter Kit - [place] (more content not included)... [facility] 01-21-2021 Note HNO ID: [id number] Author: Adarsh Wilson MD Service: Cardiovascular Medicine Author Type: Resident Type: Progress Notes Filed: 01/21/2021 11:52 AM Note Text: Attestation signed by Mikhail Vinson MD at 01/21/2021 11:54 AM CVICU PROGRESS NOTE SERVICE DATE: 01/21/2021 SERVICE TIME: 6:15 AM PRIMARY CARE PHYSICIAN: Reinaldo Paez MD Subjective CHIEF COMPLAINT: Chest Pain HPI: This is a 55 year old male with PMH of MDD, T2DM, HTN, COPD, NAFLD, Papillary Thyroid Carcinoma s/p Thyroidectomy --> Hypothyroidism presented [facility] due to palpitations. Patient states he felt like his heart was beating slower than normal. Patient was recently admitted for acute CHF exacerbation, EF (60% 12/2020), and underwent cath. Patient received stent in mid LAD and treated w/ Lasix and metoprolol. Also was treated for AECOPD on steroids and breathing tx. During admission patient had runs of NSVT and was started on amio drip. Patient did not respond well to transition to oral amiodarone and was kept on drip. Patient transferred to [facility] under EP for possible ablation. Most recent outside hospital labs showed WBC 22.7, HgB 13.5, PLT 185, K 4.6, Na 133, CL 102, Mg 2.2, Glu 204, Cr 0.85, Pro-BNP 222, free T4 1.12, TSH 3.81, HDL 28, LDL 50, Total cholesterol 116. CXR obtained two days ago show findings consistent with CHF and left basilar atelectasis. Outside Echo (01/18/21) showed EF 60%, mild LA enlargement, mild focal aortic calcification, trivial TV/MV insufficiency. Upon initial CVICU evaluation patient states he is currently asymptomatic, denies chest pain, palpitations, SOB, dizziness, abdominal pain, fever, chills, nausea, emesis, constipation, diarrhea, dysuria. Currently labs electrolytes, CBC, CMP being obtained along with CXR. INTERVAL HISTORY: The patient is resting comfortably on evaluation. He is resting in an arm chair watching TV. He denies chest pain, palpitations, shortness of breath, abdominal pain, and nausea/vomiting. Vitals are HR 70 bpm, BP 115/67, and saturating at 94% on room air. TELEMETRY: NSR overnight with 5 beats NSVT x1 PAST MEDICAL HISTORY Diagnosis Date - Depression - DM (diabetes mellitus) (HCC) - HTN (hypertension) - Multinodular goiter 01/2015 - Papillary thyroid carcinoma (HCC) 01/2015 PAST SURGICAL HISTORY Procedure Laterality Date - ; THYROIDECTOMY TOTAL OR COMPLETE 04/2015 - KNEE LEFT OP SURGERY 1997 benign tumor - TONSILLECTOMY AND ADENOIDECTOMY HX 73 FAMILY HISTORY Problem Relation Age of Onset - Heart Father valve disease - Alcohol/Drug Father - Diabetes Father - Cancer Paternal Grandfather pancreatic, alcoholic - Prostate Cancer Paternal Grandfather - Hypertension Paternal Grandmother - Heart Paternal Grandmother - Colon Cancer Paternal Uncle - Heart Mother - Alcohol/Drug Mother - Diabetes Mother - Stroke Mother Social History Tobacco Use - Smoking status: Former Smoker Packs/day: 1.00 Years: 10.00 Pack years: 10.00 Types: Cigars Quit date: 09/07/2010 Years since quittin.3 - Smokeless tobacco: Never Used - Tobacco comment: occasionally Substance Use Topics - Alcohol use: No Comment: quit, hx of - Drug use: No lisinopril (PRINIVIL) 10 mg tablet, Take 1 tablet by mouth once daily., Disp: 30 tablet, Rfl: 3 metFORMIN (GLUCOPHAGE) 500 mg tablet, Take 2 tablets by mouth twice daily with meals., Disp: 120 tablet, Rfl: 3 collagenase (SANTYL) ointment, Apply 1 application to affected area once daily., Disp: 250 g, Rfl: 1 citalopram (CELEXA) 40 mg tablet, Take 0.5 tablets by mouth once daily., Disp: 30 tablet, Rfl: 5 Gauze Bandage 4 X 4 bndg, Apply 1 application to affected area once daily., Disp: 100 Each, Rfl: 1 sodium chloride (STERILE SALINE) 0.9 % IRRIGATION, Wet gauze pads liberally, cover ulcer., Disp: 500 mL, Rfl: 1 Gauze Bandage 3 X 75 bndg, Apply 1 application to affected area once daily., Disp: 10 Each, Rfl: 1 Adhesive Tape (PAPER TAPE) 1 X 10 -yard tape, Apply 1 application to affected area once daily., Disp: 1 Each, Rfl: 1 Non-Adherent Bandage (TELFA) 8 X 10 bndg, Apply 1 application to affected area once daily. 4 x 8 inch, Disp: 20 Each, Rfl: 1 levothyroxine (SYNTHROID) 300 mcg tablet, Take 1 tablet by mouth once daily. (Patient taking differently: Take 200 mcg by mouth once daily. ), Disp: 30 tablet, Rfl: 3 albuterol HFA (PROAIR HFA) 90 mcg/actuation inhaler, Inhale 2 Puffs as instructed every 6 hours as needed for Wheezing/Shortness of Breath., Disp: 1 Inhaler, Rfl: 2 fluticasone-vilanterol (BREO ELLIPTA) 100-25 mcg/dose inhaler, Inhale 1 Inhalation as instructed once daily., Disp: 1 Each, Rfl: 3 buPROPion SR (ZYBAN SR; WELLBUTRIN SR) 150 mg 12 hr tablet, Take 1 tablet by mouth once (more content not included)... [facility] Summary Purpose Family History No Family History Records FoundNo Family History Records FoundNo Family History Records FoundNo Family History Records Found Advance Directives No Advanced Directives Records Found Date Activated Date Inactivated Comments 11/18/2023 10:39 PM 11/22/2023 11:30 PM Question Answer Comments Full Code Order Discussed With: Patient Date Activated Date Inactivated Comments 11/18/2023 10:39 PM Additional Source Comments (unrecognized sect ion and content) No Status Records FoundNo Status Records FoundNo Status Records FoundNo Status Records Found INFORMATION SOURCE (unrecogn ized section and content) DATE CREATED AUTHOR 10/04/2018 [facility] DATE CREATED AUTHOR AUTHOR'S ORGANIZ ATION 02/01/2021 [facility] DATE CREATED AUTHOR AUTHOR'S ORGANIZ ATION 07/22/2021 [facility] DATE CREATED AUTHOR AUTHOR'S ORGANIZ ATION 01/24/2024 [facility] nter Source Comments (unrecognize d section and content) In the event this informatio n is protected by the Federal Confidentiality of Alcohol and Drug Abuse Patient Records regulations: The Federal rules restrict any use of the information to criminally investigate or prosecute any alcohol or drug abuse patient[facility] the event this information is protected by the Federal Confidentiality of Alcohol and Drug Abuse Patient Records regulations: The Federal rules restrict any use of the information to criminally investigate or prosecute any alcohol or drug abuse patient.[facility] Reason for Visit (unrecogniz ed section and content) Reason Comments Radiology NM Reason Comments Results Patient Update Care Teams (unrecognized sec tion and content) Drive 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 This clinical summary was aggregated from multiple sources. Caution should be exercised in using it in the provision of clinical care. This summary normalizes information from multiple sources, and as a consequence, information in this document may materially change the coding, format and clinical context of patient data. In addition, data may be omitted in some cases. CLINICAL DECISIONS SHOULD BE BASED ON THE PRIMARY CLINICAL RECORDS. [facility] [employer] [facility]. provides no warranty or guarantee of the accuracy or completeness of information in this document.
--- NOTE | 2024-03-29 08:24 | EKG12_ITS ---
Test Reason : Blood Pressure : / mmHG Vent. Rate : 075 BPM Atrial Rate : 075 BPM P-R Int : 204 ms QRS Dur : 088 ms QT Int : 402 ms P-R-T Axes : 037 007 044 degrees QTc Int : 448 ms Normal sinus rhythm Low voltage QRS Cannot rule out Inferior infarct , age undetermined Abnormal ECG When compared with ECG of 29-MAR-2024 08:42, MANUAL COMPARISON REQUIRED, DATA IS UNCONFIRMED Confirmed by JOSE ALEJANDRO HODGES, JEFF ([id number]), editor dictionary ELODIA FARRAR ([id number]) on 04/15/2024 2:13:20 PM Referred By: Jeff Weinstein Confirmed By:JEFF WEINSTEIN MD
[2024-03-29] MEDS: Enoxaparin 40 MG/0.4 ML Syringe SC (10:18)
[2024-03-29] MEDS: Sotalol Hydrochloride 80 MG Tablet 120 MG PO ×2 (10:18→21:26)
[2024-03-29] MEDS: Polyethylene Glycol 3350 17 GM PACKET PO (10:22)
[2024-03-29 12:20] VITALS: PULSE 48; RESP 18
[2024-03-29] MEDS: Albuterol 2.5 MG/3 ML VIAL.NEB. INHALATION (12:20)
--- NOTE | 2024-03-29 14:01 | CON.PCM.CA_ITS ---
Assessment & Plan Assessment/Plan (1) Atherosclerosis of coronary artery of [place] heart without angina pectoris: QUALIFIERS: Coronary Disease-Associated Artery/Lesion type: [place] artery Qualified Code(s): I25.10 - Atherosclerotic heart disease of [place] daniella n[place] artery without angina pectoris PLAN: Patient appears to be stable with respect to the above at this time. Last cardiac catheterization demonstrated patency of the previously placed stent. (2) Hypertension: QUALIFIERS: Hypertension type: unspecified Qualified Code(s): I10 - Essential (primary) hypertension PLAN: His blood pressure appears to be quite stable at this particular time I would not recommend that we make any major changes. (3) NSVT (nonsustained ventricular tachycardia): PLAN: He does have a history of nonsustained ventricular tachycardia. My recommendation will be to restart him on the sotalol and 120 mg twice a day with monitoring reduce the metoprolol to 25 mg twice a day and monitor him. He does have preserved left ventricular systolic function and we will repeat his stress test and echo on an outpatient basis. Per recommendation he would need to be here for 5 doses of the sotalol. Thank you for allowing me to participate in the care of your patient. Please don't hesitate to call if any issues arise. (4) Bradycardia: PLAN: Plan * HPI Consult Data Date of Consult: 03/29/24 HPI Narrative HPI Narrative: ZAK HOYT, is a 58 M who presents for sotalol loading. He has a history of CAD status post LAD PTCA/bare-metal stent (01/18/2021), nonsustained ventricular tachycardia status post [facility] electrophysiology evaluation-treated medically, hyperlipidemia, and hypertension. He had underg one a cardiac catheterization in 2021 demonstrating patent stents. In October 2023 he had been transferred to [facility] for close monitoring for nonsustained ventricular tachycardia. A stress test was indeterminate and a cardiac catheterization demonstrated minimal coronary artery disease. He was to continue sotalol and metoprolol as directed by Dr. Fish but he has not followed up with them. It appeared that his sotalol and lisinopril were discontinued. From a cardiac standpoint, the patient is doing well. He denies any palpitations, chest pain, pressure or heaviness. He does acknowledge SOB-he attributes this to his COPD. This is nothing new or worsening. He denies SOB, Orthopnea, and PND. He does not have bleeding issues; no blood in urine, stool or nosebleeds. He denies any decrease in energy level, myalgias, or claudication. He denies edema, or sudden weight gain. He does have chronic bilateral lower extremity edema, and color changes. He denies dizziness, lighth eadedness, syncopal or near syncopal episodes, and headaches. [facility] Medical History Cellulitis Sleep apnea Lives in assisted living facility Wears glasses Wears dentures Depression Low iron Fatty liver Syncope Dietary restriction CPAP (continuous positive airway pressure) dependence Shortness of breath on exertion History of edema History of echocardiogram Cardiology follow-up encounter Tumor Atherosclerosis of coronary artery of [place] heart without angina pectoris Kidney stones COPD (chronic obstructive pulmonary disease) Former smoker Irregular heart beat NSVT (nonsustained ventricular tachycardia) Diabetes Asthma Hypothyroidism Hypertension Home Medications ?Medication ?Instructions ?Recorded ?Last Taken ?Type potassium chloride 20 mEq 20 meq PO DAILYCM SUPPLEMENT 04/23/19 12/30/23 Rx tablet,extended release(part/cryst) metformin 1,000 mg tablet 1,000 mg PO BID DIABETES 01/18/21 12/30/23 History sennosides 8.6 mg-docusate sodium 2 tab PO QPM CONSTIPATION 02/05/21 12/29/23 History 50 mg tablet (Senna Plus) tamsulosin 0.4 mg capsule 0.4 mg PO QHS PROSTATE 02/05/21 12/29/23 History albuterol sulfate 90 mcg/actuation 2 puff inhalation Q4H PRN 02/11/21 Unknown History aerosol inhaler SHORTNESS OF BREATH/WHEEZING duloxetine 60 mg capsule,delayed 60 mg PO BID DEPRESSION 05/22/21 12/30/23 History release montelukast 10 mg tablet 10 mg PO QHS ALLERGIES 01/10/22 12/29/23 History (Singulair) acetaminophen 650 mg 650 mg PO Q8H PRN PAIN/FEVER 02/04/22 Unknown History tablet,extended release (Tylenol Arthritis Pain) aluminum-mag hydroxide-simethicone 30 ml PO TID PRN INDIGESTION 02/04/22 11/18/23 History 400 mg-400 mg-40 mg/5 mL oral susp (Mylanta Maximum Strength) guaifenesin 600 mg tablet, 600 mg PO Q12H PRN CONGESTION 02/04/22 11/18/23 History extended release 12 hr (Mucinex) fluticasone propionate 115 2 puff inhalation BID COPD 07/31/22 12/30/23 History mcg-salmeterol 21 mcg/actuation HFA inhaler (Advair HFA) melatonin 10 mg tablet 10 mg PO QHS SLEEP 07/31/22 12/29/23 History artifi.tears(hypromellose)(PF) 1.7 1 drp ophthalmic (eye) Q6H PRN DRY 11/25/22 Unknown History % eye drops with applicator EYES blood sugar diagnostic 11/25/22 Unknown History sodium chloride 0.65 % nasal spray 2 spray intranasal Q4H PRN DRY 11/25/22 Unknown History aerosol (Deep Sea Nasal) NARES semaglutide 2 mg/dose (8 mg/3 mL) 2 mg subcut TH DIABETES 10/22/23 12/25/23 History subcutaneous pen injector (Ozempic) trazodone 50 mg tablet 25 mg PO QHS SLEEP 11/05/23 12/29/23 History atorvastatin 80 mg tablet 80 mg PO QHS CHOLESTEROL 11/18/23 12/29/23 History nystatin 100,000 unit/gram topical 1 applic topical TID PRN 12/30/23 Unknown History powder REDNESS/RASH aspirin 81 mg tablet,delayed 81 mg PO DAILY 02/11/24 Unknown History release insulin glargine 100 unit/mL (3 40 unit subcut QHS DIABETES 02/11/24 Unknown History mL) subcutaneous pen (Lantus Solostar U-100 Insulin) omeprazole 20 mg capsule,delayed 20 mg PO DAILY PRN GERD 02/11/24 Unknown History release citalopram 20 mg tablet 20 mg PO DAILY 02/12/24 Unknown History furosemide 40 mg tablet 40 mg PO DAILY PRN EDEMA 02/12/24 Unknown History levothyroxine 200 mcg tablet 225 mcg PO DAILY THYROID 02/12/24 Unknown History metoprolol tartrate 25 mg tablet 100 mg PO BID BLOOD PRESSURE 02/12/24 Unknown History omega 3-gwg-pea-fish oil 300 1 cap PO DAILY 02/12/24 Unknown History mg-1,000 mg capsule (Fish Oil) polyethylene glycol 3350 17 4 g PO DAILY 02/12/24 Unknown History gram/dose oral powder (Miralax) Allergy/AdvReac Type Severity Reaction Status Date / Time No Known Allergies Allergy Verified 02/11/24 10:38 Family History Unknown Colon polyps Surgical History Hx of colonoscopy History of coronary artery stent placement (01/18/21) History of thyroidectomy Social History household members: other details: Assisted living housing: assisted living facility current occupational status: disabled Smoking Status: Former smoker how long ago did patient quit smokin years ago alcohol intake: never substance use type: does not use caffeine: Yes Type: carbonated beverages ROS Constitutional Constitutional: Denies fever(s) or weight loss Eyes Eyes: Reports systems reviewed and no addt'l complaints, except as documented ENT HEENT: Reports systems reviewed and no addt'l complaints, except as documented Cardiovascular Cardiovascular: Denies chest pain at rest, chest pain with activity, dyspnea at rest, dyspnea on exertion, edema, palpitations or paroxysmal nocturnal dyspnea Respiratory/Chest Respiratory/Chest: Denies dyspnea on exertion, productive cough, shortness of breath at rest or shortness of breath with exertion Gastrointestinal Gastrointestinal: Denies change in bowel habits, nausea, vomiting or weight changes Genitourinary Genitourinary: Denies difficulty urinating Musculoskeletal Musculoskeletal: Denies joint stiffness or muscle weakness Integumentary Integumentary: Denies lesions Neurologic Neurologic: Denies dizziness or syncope Psychiatric Psychiatric: Denies anxiety Endocrine Endocrinology: Denies excessive sweating or fatigue Hematologic/Lymphatic Hematologic/Lymphatic: Denies anemia Allergic/Immunologic Allergic/Immunologic: Denies seasonal rhinorrhea Physical Exam Const alert, oriented x3 and no apparent distress General Appearance: cooperative HEENT hearing grossly normal bilaterally Head and Scalp: atraumatic Eyes EOMs intact bilaterally Neck General: normal visual inspection Chest inspection of chest normal and palpation of chest normal Resp normal respiratory effort Auscultation: clear to auscultation bilaterally Cardio regular rate, regular rhythm, S1 normal heart sound and S2 normal heart sound Jugular Venous Distention: JVD GI normal to inspection, nondistended, normoactive bowel sounds Extremity normal capillary refill and no pedal edema Peripheral Pulses: Yes pulses 2+ throughout and femoral pulses present Skin no rashes or lesions noted Neuro oriented x3 and CN's II-XII intact bilaterally Psych Appearance: grossly normal and appropriate Risk Stratification Risk Stratification Applicable: No Objective Data Vital Signs: Vital Signs Temp Pulse Resp BP Pulse Ox O2 Del Method 97.6 F L 48 L 18 111/57 L 97 Room Air 03/29/24 08:06 03/29/24 12:20 03/29/24 12:20 03/29/24 08:06 03/29/24 08:06 03/29/24 08:06 Oxygen Delivery Method Room Air Weight: 327 lb 13.238 oz Body Mass Index (BMI) 44.4 Cardiology Labs/Tests Rhythm: EKG: ECHO: Stress Test: Cardiac Cath: PCI: CT Surgery: Holter monitor: EPS: PPM: CXR: Chest CT Scan:
[2024-03-29 14:15] VITALS: BP 92/58; PULSE 110; RESP 18; TEMP 36.9; O2SAT 98
[2024-03-29] MEDS: metFORMIN HCl 1,000 MG Tablet 1000 MG PO (16:17)
[2024-03-29 21:21] VITALS: BP 125/92; PULSE 92; RESP 18; TEMP 37; O2SAT 96
[2024-03-29 21:26] VITALS: PULSE 92
[2024-03-29] MEDS: Metoprolol Tartrate 25 MG Tablet PO (21:26)
[2024-03-29] MEDS: MELATONIN 10 MG TABLET PO (21:26)
[2024-03-29] MEDS: Montelukast 10 MG Tablet PO (21:26)
[2024-03-29] MEDS: Senna/Docusate Sodium 1 Tablet 2 TABLET PO (21:27)
[2024-03-29] MEDS: Atorvastatin Calcium 80 MG Tablet PO (21:27)
[2024-03-29] MEDS: Tamsulosin HCl 0.4 MG Capsule PO (21:27)
[2024-03-29] MEDS: DULoxetine Hcl 60 MG Capsule PO (21:27)
[2024-03-29] MEDS: traZODone 50 MG Tablet 25 MG PO (21:28)
[2024-03-29] MEDS: Insulin Glargine-YFGN 100 UNIT/ML Pen 40 UNIT SC (21:37)
[2024-03-29 21:58] LABS: Bedside Glucose 158 mg/dL (74-106)
[2024-03-30] VITALS (9 sets, daily range): BP systolic 104–130; BP diastolic 51–72; PULSE 62–80; RESP 12–18; TEMP 36.1–36.5; O2SAT 93–97
[2024-03-30] MEDS: Levothyroxine 100 MCG Tablet 200 MCG PO (06:07)
[2024-03-30] MEDS: Levothyroxine 25 MCG TABLET PO (06:07)
[2024-03-30] MEDS: Albuterol 2.5 MG/3 ML VIAL.NEB. INHALATION ×3 (07:18→20:11)
[2024-03-30] MEDS: Budesonide Respules 0.5 MG/2 ML AMPUL.NEB. INHALATION ×2 (07:18→20:11)
--- NOTE | 2024-03-30 08:37 | EKG12_ITS ---
Test Reason : Blood Pressure : / mmHG Vent. Rate : 111 BPM Atrial Rate : 083 BPM P-R Int : 194 ms QRS Dur : 094 ms QT Int : 360 ms P-R-T Axes : 043 -15 045 degrees QTc Int : 489 ms Sinus rhythm with frequent and consecutive Premature ventricular complexes Inferior infarct (cited on or before 18-NOV-2023) Abnormal ECG When compared with ECG of 14-DEC-2023 19:49, Premature ventricular complexes are now Present Confirmed by JEFF WEINSTEIN MD ([id number]), editor at large ELODIA FARRAR ([id number]) on 03/30/2024 11:42:11 AM Referred By: Jeff Weinstein Confirmed By:JEFF WEINSTEIN MD
--- NOTE | 2024-03-30 09:42 | CASEMGMT ---
Addendum entered by Yudi Mix 03/30/24 10:00: Fax confirmation rec'd. Yudi Mix DC Planning Asst. Original Note: [facility]. Yudi Mix DC Planning Asst.
[2024-03-30] MEDS: Potassium Chloride Oral Tablet 20 MEQ PO (09:51)
[2024-03-30] MEDS: Omega-3 Acid Ethyl Esters 1 GM Capsule PO (09:51)
[2024-03-30] MEDS: Aspirin E.C. 81 MG Tablet PO (09:51)
[2024-03-30] MEDS: metFORMIN HCl 1,000 MG Tablet 1000 MG PO ×2 (09:51→18:12)
[2024-03-30] MEDS: Polyethylene Glycol 3350 17 GM PACKET PO (09:52)
[2024-03-30] MEDS: Enoxaparin 40 MG/0.4 ML Syringe SC (09:52)
[2024-03-30] MEDS: DULoxetine Hcl 60 MG Capsule PO ×2 (09:52→22:32)
[2024-03-30] MEDS: Metoprolol Tartrate 25 MG Tablet PO ×2 (09:52→22:34)
[2024-03-30] MEDS: Sotalol Hydrochloride 80 MG Tablet 120 MG PO ×2 (09:53→22:30)
--- NOTE | 2024-03-30 12:16 | CASEMGMT ---
Patient is from [facility]. SW met with patient. Introduced self and role at [facility]. Patient confirmed his plan is to return to [facility] at discharge. Patient also stated he will need transportation back to [facility]. SW will continue to follow. Plan: d/c back to [facility] pending patient being medically ready. Elisabeth KING
--- NOTE | 2024-03-30 12:30 | EKG12_ITS ---
Test Reason : Blood Pressure : / mmHG Vent. Rate : 113 BPM Atrial Rate : 088 BPM P-R Int : 182 ms QRS Dur : 088 ms QT Int : 344 ms P-R-T Axes : 044 003 032 degrees QTc Int : 471 ms Sinus rhythm with frequent and consecutive Premature ventricular complexes Possible Inferior infarct , age undetermined Abnormal ECG When compared with ECG of 30-MAR-2024 07:49, MANUAL COMPARISON REQUIRED, DATA IS UNCONFIRMED Confirmed by JOSE ALEJANDRO HODGES, JEFF ([id number]), web editor SHIELA ALBERTO ([id number]) on 03/31/2024 6:22:31 AM Referred By: Jeff Weinstein Confirmed By:JEFF WEINSTEIN MD
[2024-03-30] MEDS: 0.9% Saline Lock 10 ML Syringe IV (22:29)
[2024-03-30] MEDS: Insulin Glargine-YFGN 100 UNIT/ML Pen 40 UNIT SC (22:29)
[2024-03-30] MEDS: Atorvastatin Calcium 80 MG Tablet PO (22:32)
[2024-03-30] MEDS: Senna/Docusate Sodium 1 Tablet 2 TABLET PO (22:32)
[2024-03-30] MEDS: traZODone 50 MG Tablet 25 MG PO (22:32)
[2024-03-30] MEDS: Montelukast 10 MG Tablet PO (22:35)
[2024-03-30] MEDS: MELATONIN 10 MG TABLET PO (22:35)
[2024-03-30] MEDS: Tamsulosin HCl 0.4 MG Capsule PO (22:35)
--- NOTE | 2024-03-31 00:30 | EKG12_ITS ---
Test Reason : post medication Blood Pressure : / mmHG Vent. Rate : 074 BPM Atrial Rate : 074 BPM P-R Int : 190 ms QRS Dur : 094 ms QT Int : 402 ms P-R-T Axes : 043 003 036 degrees QTc Int : 446 ms Normal sinus rhythm Cannot rule out Inferior infarct , age undetermined Abnormal ECG When compared with ECG of 30-MAR-2024 12:24, MANUAL COMPARISON REQUIRED, DATA IS UNCONFIRMED Confirmed by JOSE ALEJANDRO HODGES, JEFF ([id number]), industrial editor ELODIA FARRAR ([id number]) on 03/31/2024 9:40:25 AM Referred By: Jeff Weinstein Confirmed By:JEFF WEINSTEIN MD
[2024-03-31 00:37] LABS: Absolute Neutrophil Count 7.4 X10^3/uL (2.0-7.7); Basophil# 0.05 X10^3/uL; Basophil% 0.5 % (0-1); Eosinophil# 0.53 X10^3/uL; Eosinophils% 4.9 % (0-5); Hematocrit 39.6 % (40-54); Hemoglobin 11.7 g/dL (13.0-16.5); Lymphocyte % 18.3 % (19-41); Mean Corp Hgb Conc 29.5 g/dL (32-36); Mean Corpuscular Hgb 25.7 pg (27.0-32.0); Mean Corpuscular Volume 86.8 fL (80-94); Mean Platelet Vol. 10.1 fl (6.2-12.0); Monocyte# 0.88 X10^3/uL; Monocyte% 8.1 % (0-10); NRBC Flagged by Analyzer 0 % (0-5); Neutrophil # 7.41 X10^3/uL (2.7-7.7); Neutrophil % 67.7 % (47-70); Platelet Count 157 K/mm3 (150-450); RBC Distribution Width CV 16.4 % (11.6-14.6); RBC Distribution Width SD 52.4 fl (35.1-43.9); Red Blood Count 4.56 M/mm3 (4.6-6.2); White Blood Count 10.9 K/mm3 (4.4-11.0)
[2024-03-31 00:51] LABS: Anion Gap 6 (5-15); BUN 14 mg/dL (7-18); Calcium,Total 9.3 mg/dL (8.5-10.1); Chloride 100 mmol/L (98-107); Creatinine, Serum 0.74 mg/dL (0.70-1.30); EST Glomerular Filtration Rate 116 mL/min (>60); Est Glom Filt Rate - Afr Amer 140 mL/min (>60); Glucose 118 mg/dL (74-106); Potassium 4.6 mmol/L (3.5-5.1); Sodium Level 137 mmol/L (136-145)
[2024-03-31 01:59] LABS: Bedside Glucose 124 mg/dL (74-106)
[2024-03-31 04:00] VITALS: BP 102/63; PULSE 72; RESP 14; TEMP 36.2; O2SAT 95
[2024-03-31] MEDS: Levothyroxine 100 MCG Tablet 200 MCG PO (04:43)
[2024-03-31] MEDS: Levothyroxine 25 MCG TABLET PO (04:43)
[2024-03-31 07:16] VITALS: PULSE 80; RESP 18
[2024-03-31] MEDS: Albuterol 2.5 MG/3 ML VIAL.NEB. INHALATION (07:16)
[2024-03-31] MEDS: Budesonide Respules 0.5 MG/2 ML AMPUL.NEB. INHALATION (07:16)
[2024-03-31 07:17] VITALS: O2SAT 95
[2024-03-31] MEDS: Sotalol Hydrochloride 80 MG Tablet 120 MG PO (07:43)
[2024-03-31] MEDS: Potassium Chloride Oral Tablet 20 MEQ PO (07:43)
[2024-03-31 07:44] VITALS: PULSE 72
[2024-03-31] MEDS: Omega-3 Acid Ethyl Esters 1 GM Capsule PO (07:44)
[2024-03-31] MEDS: DULoxetine Hcl 60 MG Capsule PO (07:44)
[2024-03-31] MEDS: metFORMIN HCl 1,000 MG Tablet 1000 MG PO (07:44)
[2024-03-31] MEDS: Metoprolol Tartrate 25 MG Tablet PO (07:44)
[2024-03-31] MEDS: Aspirin E.C. 81 MG Tablet PO (07:44)
[2024-03-31] MEDS: Enoxaparin 40 MG/0.4 ML Syringe SC (07:44)
[2024-03-31] MEDS: Polyethylene Glycol 3350 17 GM PACKET PO (07:45)
[2024-03-31 10:00] VITALS: BP 124/55; PULSE 78; RESP 15; TEMP 36.6; O2SAT 96
--- NOTE | 2024-03-31 10:00 | EKG12_ITS ---
Test Reason : 10AM EKG Blood Pressure : / mmHG Vent. Rate : 084 BPM Atrial Rate : 084 BPM P-R Int : 174 ms QRS Dur : 084 ms QT Int : 382 ms P-R-T Axes : 031 -05 058 degrees QTc Int : 451 ms Sinus rhythm with occasional and consecutive Premature ventricular complexes Low voltage QRS Abnormal ECG When compared with ECG of 31-MAR-2024 01:12, Premature ventricular complexes are now Present Confirmed by JOSE ALEJANDRO HODGES, JEFF ([id number]), electronic news gathering editor ELODIA FARRAR ([id number]) on 04/01/2024 1:02:08 PM Referred By: Jeff Weinstein Confirmed By:JEFF WEINSTEIN MD
--- NOTE | 2024-03-31 10:28 | PCM.PN.CARD ---
Subjective Subjective Patient seen and evaluated. Appears to be doing well today. Has been asymptomatic. Tolerating the sotalol quite well. Objective Data Vital Signs: Vital Signs Temp Pulse Resp BP Pulse Ox O2 Del Method 98 F 78 15 124/55 H 96 Room Air 03/31/24 10:00 03/31/24 10:00 03/31/24 10:00 03/31/24 10:00 03/31/24 10:00 03/31/24 10:00 Oxygen Delivery Method Room Air Weight: 327 lb 13.238 oz Body Mass Index (BMI) 44.4 Intake & Output: Intake and Output for Last 24 Hours 03/29/24 03/30/24 03/31/24 23:59 23:59 23:59 Intake Total 620 / 620 Balance 620 / 620 Lab / Micro Data 03/31/24 00:20 03/31/24 00:20 Labs: Laboratory Results - last 24 hr 03/30/24 22:27: POC Glucose 124 H 03/31/24 00:20: WBC 10.9, RBC 4.56 L, Hgb 11.7 L, Hct 39.6 L, MCV 86.8, MCH 25.7 L, MCHC 29.5 L, RDW Std Deviation 52.4 H, RDW Coeff of Jovany 16.4 H, Plt Count 157, MPV 10.1, Immature Gran % (Auto) 0.500, Neut % (Auto) 67.7, Lymph % (Auto) 18.3 L, [place] % (Auto) 8.1, Eos % (Auto) 4.9, Baso % (Auto) 0.5, Absolute Neuts (auto) 7.4, Absolute Lymphs (auto) 2.00, Nucleated RBC % 0, Sodium 137, Potassium 4.6, Chloride 100, Carbon Dioxide 31.0, Anion Gap 6, BUN 14, Creatinine 0.74, Estim Creat Clear Calc 163.20, Est GFR (MDRD) Af Amer 140, Est GFR (MDRD) Non-Af 116, BUN/Creatinine Ratio 19.0, Glucose 118 H, Calcium 9.3, Magnesium 2.0 Cardiology Labs/Tests 03/31/24 00:20: WBC 10.9, RBC 4.56 L, Hgb 11.7 L, Hct 39.6 L, MCV 86.8, MCH 25.7 L, MCHC 29.5 L, Plt Count 157, MPV 10.1, Immature Gran % (Auto) 0.500, Neut % (Auto) 67.7, Lymph % (Auto) 18.3 L, [place] % (Auto) 8.1, Eos % (Auto) 4.9, Baso % (Auto) 0.5, Absolute Neuts (auto) 7.4, Nucleated RBC % 0, Sodium 137, Potassium 4.6, Chloride 100, Carbon Dioxide 31.0, Anion Gap 6, BUN 14, Creatinine 0.74, Est GFR (MDRD) Af Amer 140, Est GFR (MDRD) Non-Af 116, BUN/Creatinine Ratio 19.0, Glucose 118 H, Calcium 9.3, Magnesium 2.0 Rhythm: EKG: ECHO: Stress Test: Cardiac Cath: PCI: CT Surgery: Holter monitor: EPS: PPM: CXR: Chest CT Scan: Physical Exam Const alert, oriented x3 and no apparent distress General Appearance: cooperative HEENT hearing grossly normal bilaterally Head and Scalp: atraumatic Eyes EOMs intact bilaterally Neck General: normal visual inspection Chest inspection of chest normal and palpation of chest normal Resp normal respiratory effort Auscultation: clear to auscultation bilaterally Cardio regular rate, regular rhythm, S1 normal heart sound and S2 normal heart sound Jugular Venous Distention: JVD GI normal to inspection, nondistended, normoactive bowel sounds Extremity normal capillary refill and no pedal edema Peripheral Pulses: Yes pulses 2+ throughout and femoral pulses present Skin no rashes or lesions noted Neuro oriented x3 and CN's II-XII intact bilaterally Psych Appearance: grossly normal and appropriate Assessment & Plan Assessment/Plan (1) Atherosclerosis of coronary artery of [place] heart without angina pectoris: QUALIFIERS: Coronary Disease-Associated Artery/Lesion type: [place] artery Qualified Code(s): I25.10 - Atherosclerotic heart disease of [place] coronary artery without angina pectoris PLAN: Patient appears to be stable with respect to the above at this time. Last cardiac catheterization demonstrated patency of the previously placed stent. (2) Hypertension: QUALIFIERS: Hypertension type: unspecified Qualified Code(s): I10 - Essential (primary) hypertension PLAN: His blood pressure appears to be quite stable at this particular time I would not recommend that we make any major changes. (3) NSVT (nonsustained ventricular tachycardia): PLAN: He does have a history of nonsustained ventricular tachycardia. He was started on sotalol 120 mg twice a day and metoprolol 25 mg twice a day and has done remarkably well. His EKG has demonstrated no significant abnormalities and the QT intervals have been within normal limits. His QT C today after his fifth dose of sotalol is 451 ms with a heart rate of 84 bpm. Recommendation will therefore be to discharge him on the same and have an office follow-up in a month with a Holter monitor. Thank you for allowing me to participate in the care of your patient. Please don't hesitate to call if any issues arise. (4) Bradycardia: PLAN: Plan
--- NOTE | 2024-03-31 10:35 | PCM.DC ---
Discharge Instructions Diet Discharge Diet: Low fat / Low cholesterol and 2000 Calorie Control Diet Follow Up Care Please Follow Up With: Jeff Weinstein MD When: Follow -up in [facility] Test Results: Test results from this visit will be discussed in further detail at your follow-up appointment, if applicable. Discharge Plan Admission Admit Date/Time: 03/29/24 08:25 Attending Provider: Jeff Weinstein Primary Care Provider: Radha Barajas [employer] Discharge Orders/Prescriptions Prescriptions: New sotalol 80 mg Tablet 120 mg PO BID Qty: 120 3RF metoprolol tartrate 25 mg Tablet 25 mg PO BID Qty: 120 2RF Continued sennosides-docusate sodium [Senna Plus] 8.6-50 mg tablet 2 tab PO QPM tamsulosin 0.4 mg capsule 0.4 mg PO QHS acetaminophen [Tylenol Arthritis Pain] 650 mg tablet extended release 650 mg PO Q8H PRN (Reason: PAIN/FEVER) guaifenesin [Mucinex] 600 mg tablet extended release 12hr 600 mg PO Q12H PRN (Reason: CONGESTION ) montelukast [Singulair] 10 mg tablet 10 mg PO QHS fluticasone propion-salmeterol [Advair HFA] 115-21 mcg/actuation HFA aerosol inhaler 2 puff inhalation BID melatonin 10 mg tablet 10 mg PO QHS (DME) blood sugar diagnostic Kit See Rx Instructions .Route Rx Instructions: As directed Ozempic 2 mg/dose (8 mg/3 mL) pen injector 2 mg subcut TH omeprazole 20 mg capsule,delayed release(DR/EC) 20 mg PO DAILY PRN (Reason: GERD) polyethylene glycol 3350 [Miralax] 17 gram/dose powder 17 g PO DAILY potassium chloride 20 MEQ tablet 20 meq PO DAILYCM 0RF metformin 1,000 mg tablet 1,000 mg PO BID duloxetine 60 mg capsule,delayed release(DR/EC) 60 mg PO BID albuterol sulfate 90 mcg/actuation HFA aerosol inhaler 2 puff INHALATION Q4H PRN (Reason: SHORTNESS OF BREATH/WHEEZING ) trazodone 50 mg tablet 25 mg PO QHS atorvastatin 80 mg tablet 80 mg PO QHS insulin glargine [Lantus Solostar U-100 Insulin] 100 unit/mL (3 mL) insulin pen 40 unit subcut QHS levothyroxine 200 mcg tablet 225 mcg PO DAILY furosemide 40 mg tablet 40 mg PO DAILY PRN (Reason: EDEMA) Discontinued metoprolol tartrate 25 mg tablet 100 mg PO BID Referrals / Follow Up: Radha Barajas [employer], [employer] [Primary Care Provider] - Disposition Disposition (needs filled in before D/C Order can be placed): Home, Self Care
--- NOTE | 2024-03-31 10:55 | CASEMGMT ---
Patient is ready for discharge back to [facility]. Transport will be arranged with Physicians. Elisabeth KING
--- NOTE | 2024-03-31 10:56 | CASEMGMT ---
Discharge Planning Discharge instructions and transport time faxed to [facility]. Fax confirmation rec'd. Physicians will transport patient by wheelchair at 1p. Nursing, SW, and patient updated. Yudi Mix DC Planning Asst.
--- NOTE | 2024-03-31 11:36 | PHA.DC_ITS ---
Pharmacy [place] Med Reconciliation Pharmacy Service has performed discharge medication reconciliation for this patient. Upon review of fill history, patient has been on both medications before. Did not education counselor. Medications reviewed. The patient's discharge medication list was reviewed for discrepancies and discrepancies were resolved. Medications at Discharge Home Medications potassium chloride 20 mEq tablet,extended release(part/cryst) 20 meq PO DAILYCM SUPPLEMENT 04/23/19 metformin 1,000 mg tablet 1,000 mg PO BID DIABETES 01/18/21 sennosides 8.6 mg-docusate sodium 50 mg tablet (Senna Plus) 2 tab PO QPM CONSTIPATION 02/05/21 tamsulosin 0.4 mg capsule 0.4 mg PO QHS PROSTATE 02/05/21 albuterol sulfate 90 mcg/actuation aerosol inhaler 2 puff inhalation Q4H PRN SHORTNESS OF BREATH/WHEEZING 02/11/21 duloxetine 60 mg capsule,delayed release 60 mg PO BID DEPRESSION 05/22/21 montelukast 10 mg tablet (Singulair) 10 mg PO QHS ALLERGIES 01/10/22 acetaminophen 650 mg tablet,extended release (Tylenol Arthritis Pain) 650 mg PO Q8H PRN PAIN/FEVER 02/04/22 guaifenesin 600 mg tablet, extended release 12 hr (Mucinex) 600 mg PO Q12H PRN CONGESTION 02/04/22 fluticasone propionate 115 mcg-salmeterol 21 mcg/actuation HFA inhaler (Advair HFA) 2 puff inhalation BID COPD 07/31/22 melatonin 10 mg tablet 10 mg PO QHS SLEEP 07/31/22 blood sugar diagnostic 11/25/22 semaglutide 2 mg/dose (8 mg/3 mL) subcutaneous pen injector (Ozempic) 2 mg subcut TH DIABETES 10/22/23 trazodone 50 mg tablet 25 mg PO QHS SLEEP 11/05/23 atorvastatin 80 mg tablet 80 mg PO QHS CHOLESTEROL 11/18/23 insulin glargine 100 unit/mL (3 mL) subcutaneous pen (Lantus Solostar U-100 Insulin) 40 unit subcut QHS DIABETES 02/11/24 omeprazole 20 mg capsule,delayed release 20 mg PO DAILY PRN GERD 02/11/24 furosemide 40 mg tablet 40 mg PO DAILY PRN EDEMA 02/12/24 levothyroxine 200 mcg tablet 225 mcg PO DAILY THYROID 02/12/24 polyethylene glycol 3350 17 gram/dose oral powder (Miralax) 17 g PO DAILY Constipation 02/12/24 metoprolol tartrate 25 mg tablet 25 mg PO BID #120 tabs 03/31/24 sotalol 80 mg tablet 120 mg (1.5 x 80 mg) PO BID #120 tabs 03/31/24
== END 2024-03-31 13:51 | disposition home or self-care (01) | DRG 310 ==
PROVIDERS: Admitting Provider Internal Medicine Cardiovascular Disease; PCP Nurse Practitioner Adult Health; Referring Provider Internal Medicine Cardiovascular Disease; Visit Provider Internal Medicine Cardiovascular Disease
DX: I47.20 Ventricular tachycardia, unspecified (principal); E03.9 Hypothyroidism, unspecified; E11.9 Type 2 diabetes mellitus without complications; J44.9 Chronic obstructive pulmonary disease, unspecified; I10 Essential (primary) hypertension; F32.A Depression, unspecified; I25.10 Atherosclerotic heart disease of native coronary artery without angina pectoris; Z79.4 Long term (current) use of insulin; R00.1 Bradycardia, unspecified; E78.5 Hyperlipidemia, unspecified; G47.30 Sleep apnea, unspecified; Z79.82 Long term (current) use of aspirin; Z79.51 Long term (current) use of inhaled steroids; Z95.5 Presence of coronary angioplasty implant and graft; Z87.891 Personal history of nicotine dependence; Z99.89 Dependence on other enabling machines and devices; Z79.899 Other long term (current) drug therapy; Z79.84 Long term (current) use of oral hypoglycemic drugs; Z79.85 Long-term (current) use of injectable non-insulin antidiabetic drugs; Z79.890 Hormone replacement therapy
CPT/HCPCS: 36415; 80048; 82962; 83735; 85025; 93005; 94640; A4216

== ENCOUNTER 2024-09-22 13:20 | Outpatient (RCR) | payer MEDICARE, MEDICAID, SELFPAY | END 2024-09-22 19:00 | disposition home or self-care (01) | LOC: PT 13:20 | PROVIDERS: PCP Nurse Practitioner Adult Health; Referring Provider Nurse Practitioner Adult Health; Visit Provider Nurse Practitioner Adult Health | DX: R26.89 Other abnormalities of gait and mobility (principal); Z91.81 History of falling; E89.0 Postprocedural hypothyroidism ==

== ENCOUNTER 2024-10-20 07:06 | Day surgery (SDC) | payer MEDICARE, MEDICAID, SELFPAY ==
--- NOTE | 2024-10-18 12:26 | PAT.ANESEVAL ---
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 When Was Last Pacemaker Check QUESTION #4 FULL TEXT: You/Your Family Experience fever (hyperthermia) with Anesthesia Last Oral Intake Last Oral intake: Last Oral Intake NPO since Meds taken in AM with sips of water? Meds patient instructed to take am of surgery PONV PONV - saddle lining stitcher: PONV - saddle lining stitcher Female No 10/18/24 11:26 HX of Motion Sickness No 10/18/24 11:26 HX of N/V After Surgery No 10/18/24 11:26 Non-Smoker Yes 10/18/24 11:26 Duration of Surgery greater No 10/18/24 11:26 than 60 minutes Number of Risk Factors 1 10/18/24 11:26 PONV Score Low Risk 10/18/24 11:26 Height & Weight Height & Weight: Anesthesia: Height & Weight Height 6 ft 07/13/24 14:24 Respiratory Assessment Respiratory Assessment - saddle lining stitcher: Respiratory Tract Infection Hx - saddle lining stitcher Hx Respiratory Tract Infection No 10/18/24 11:26 STOP Sleep Apnea STOP Sleep Apnea - saddle lining stitcher: STOP Sleep Apnea - saddle lining stitcher Hx Hypertension Yes 10/18/24 11:26 Hx Sleep Apnea Yes: DOESNT WEAR CPAP OR 10/18/24 11:26 BIPAP CPAP No 10/18/24 11:26 BIPAP No 10/18/24 11:26 Do you snore loudly (louder than talking or can be heard Do you often feel tired/ fatigued/ sleepy during daytime? Has anyone observed you stop breathing during sleep? STOP Results Positive 10/18/24 11:26 QUESTION #5 FULL TEXT : Do you snore loudly (louder than talking or can be heard through closed doors)? 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 Specify any problems Hx of Preganancy in last 3 N/A 10/18/24 11:26 Months Nurse Filling Out Transfusion [facility] 10/18/24 11:26 & Questions: Date: 10/18/24 10/18/24 11:26 Time: 11:33 10/18/24 11:26 Patient unable to answer at this time (ie. confused, unrespo /Reproduction History /Reproductive History - saddle lining stitcher: /Reproductive Hx- saddle lining stitcher Hx Now No 10/18/24 11:26 Gestational Age (in weeks): EDC: Hx Hx Para Hx Section SAB No 10/18/24 11:26 [facility] Medical History (Updated 10/18/24 @ 11:44 by Cara Woodward) Redness of skin Thyroid disease Insulin dependent diabetes mellitus Anemia Hepatitis High cholesterol Difficulty swallowing History of diverticulitis Chronic cough History of pain when walking History of stress test History of irregular heartbeat Cellulitis Sleep apnea Lives in assisted living facility Wears glasses Wears dentures Depression Low iron Fatty liver Syncope Dietary restriction CPAP (continuous positive airway pressure) dependence Shortness of breath on exertion History of edema History of echocardiogram Cardiology follow-up encounter Tumor Atherosclerosis of coronary artery of [place] heart without angina pectoris Kidney stones COPD (chronic obstructive pulmonary disease) Former smoker Irregular heart beat NSVT (nonsustained ventricular tachycardia) Diabetes Asthma Hypothyroidism Hypertension Home Medications ?Medication ?Instructions ?Recorded ?Last Taken ?Type potassium chloride 20 mEq 20 meq PO DAILYCM SUPPLEMENT 04/23/19 12/30/23 Rx tablet,extended release(part/cryst) metformin 1,000 mg tablet 1,000 mg PO BID DIABETES 01/18/21 12/30/23 History tamsulosin 0.4 mg capsule 0.4 mg PO QHS PROSTATE 02/05/21 12/29/23 History albuterol sulfate 90 mcg/actuation 2 puff inhalation Q4H PRN 02/11/21 Unknown History aerosol inhaler SHORTNESS OF BREATH/WHEEZING duloxetine 60 mg capsule,delayed 60 mg PO BID DEPRESSION 05/22/21 12/30/23 History release montelukast 10 mg tablet 10 mg PO QHS ALLERGIES 01/10/22 12/29/23 History (Singulair) acetaminophen 650 mg 650 mg PO Q8H PRN PAIN/FEVER 02/04/22 Unknown History tablet,extended release (Tylenol Arthritis Pain) guaifenesin 600 mg tablet, 600 mg PO Q12H PRN CONGESTION 02/04/22 11/18/23 History extended release 12 hr (Mucinex) fluticasone propionate 115 2 puff inhalation BID COPD 07/31/22 12/30/23 History mcg-salmeterol 21 mcg/actuation HFA inhaler (Advair HFA) blood sugar diagnostic 11/25/22 Unknown History atorvastatin 80 mg tablet 80 mg PO QHS CHOLESTEROL 11/18/23 12/29/23 History polyethylene glycol 3350 17 17 g PO DAILY PRN Constipation 02/12/24 Unknown History gram/dose oral powder (Miralax) metoprolol tartrate 25 mg tablet 25 mg PO BID #120 tabs 03/31/24 Unknown Rx sotalol 80 mg tablet 120 mg (1.5 x 80 mg) PO BID #120 03/31/24 Unknown Rx tabs levothyroxine 200 mcg tablet 250 mcg PO DAILY THYROID 07/07/24 Unknown History trazodone 50 mg tablet 25 mg PO QHS SLEEP 07/07/24 Unknown History furosemide 40 mg tablet 40 mg PO DAILY PRN PRN EDEMA 07/13/24 Unknown History melatonin 10 mg tablet 9 mg PO QHS SLEEP 07/13/24 Unknown History omeprazole 20 mg capsule,delayed 20 mg PO DAILY GERD 07/13/24 Unknown History release semaglutide 2 mg/dose (8 mg/3 mL) 2 mg subcut .wed DIABETES 07/13/24 10/06/24 History subcutaneous pen injector (Ozempic) aspirin 81 mg capsule 81 mg PO DAILY 09/13/24 Unknown History insulin glargine 100 unit/mL (3 56 unit subcut QPM 09/13/24 Unknown History mL) subcutaneous pen (Lantus Solostar U-100 Insulin) nystatin 100,000 unit/gram topical 1 applic topical 4X/DAY PRN PRN 09/13/24 Unknown History powder SKIN FOLDS omega-3 fatty acids 2,000 mg PO DAILY 09/13/24 Unknown History senna-docusate sodium tablet 2 tab PO QHS 09/13/24 Unknown History Allergy/AdvReac Type Severity Reaction Status Date / Time No Known Allergies Allergy Verified 09/13/24 11:58 Family History Unknown Colon polyps Surgical History (Updated 10/18/24 @ 11:44 by Cara Woodward) History of cardiac catheterization Hx of colonoscopy History of coronary artery stent placement (01/18/21) History of thyroidectomy Social History household members: other details: Assisted living housing: assisted living facility current occupational status: disabled Smoking Status: Former smoker how long ago did patient quit smokin years ago alcohol intake: never substance use type: does not use caffeine: Yes Type: carbonated beverages Audit: Pertinent Findings Pertinent Findings EKG Perinent findings: 05/10/2024. Sinus rhythm. Echo (EF%) pertinent findings: 09/13/2021. EF 55 to 60%. Normal function. Consult pertinent findings: Cardiology 05/10/2024. Status post PTCA. LAD in December 2020. Cardiac catheterization performed in October 2023 which showed patent LAD. Stable. Nonsustained ventricular tachycardia. Directed to be initiated on sotalol therapy. Hypertension. Well-controlled. Pulmonary function results/spirometer pertinent findings: 02/18/2022. Irreversible severe mixed ventilatory defect. Metric reduction diffusion capacity. 54% predicted. Recommendation Anesthesia Recommendation Anesthesia recommendation: OPTIMIZED for anesthesia
[2024-10-20] VITALS (8 sets, daily range): BP systolic 85–118; BP diastolic 35–53; PULSE 75–79; RESP 16–20; TEMP 36.5–36.8; O2SAT 92–96; BMI 45.1
[2024-10-20] MEDS: Lactated Ringers 1,000 ML 15 ML IV (07:52)
--- NOTE | 2024-10-20 08:06 | PCM.PRE.AN2 ---
ASA Classification* ASA Classification ASA Classification: 3 Assessment & Plan Anesthesia* Anesthesia Assessment Anesthesia Assessment: Discussed sedation and/or anesthesia options, risks, benefits, and alternatives with patient/parents/legal guardian/POA. Questions invited. The patient/parents/legal guardian/POA seems to understand and agrees to proceed with anesthesia plan. Reviewed the physical assessment, medical history, allergy history and patient home medications list prior to surgery/procedure/anesthetic and documented any changes. Performed airway and anesthesia risk assessments. Anesthesia Type Anesthesia Type: MAC Anesthesia Focused Assessment* Temperature: 98.2 F Pulse Rate: 75 Blood Pressure: 118/53 Respiratory Rate: 20 Pulse Ox: 92 Airway Assessment Mouth opens: >3 cm Mallampati Score: II Focused Labs Anesthesia Preop lab: CBC WBC 10.9 K/mm3 (4.4-11.0) 03/31/24 00:20 03/31/24 RBC 4.56 M/mm3 (4.6-6.2) L 03/31/24 00:20 03/31/24 Hgb 11.7 g/dL (13.0-16.5) L 03/31/24 00:20 03/31/24 Hct 39.6 % (40-54) L 03/31/24 00:20 03/31/24 Plt Count 157 K/mm3 (150-450) 03/31/24 00:20 03/31/24 CHEMISTRY Potassium 4.6 mmol/L (3.5-5.1) 03/31/24 00:20 03/31/24 Sodium 137 mmol/L (136-145) 03/31/24 00:20 03/31/24 Magnesium 2.0 mg/dL (1.6-2.6) 03/31/24 00:20 03/31/24 Phosphorus 3.0 mg/dL (2.5-4.9) 01/01/24 08:22 01/01/24 BUN 14 mg/dL (7-18) 03/31/24 00:20 03/31/24 Creatinine 0.74 mg/dL (0.70-1.30) 03/31/24 00:20 03/31/24 Glucose 118 mg/dL (74-106) H 03/31/24 00:20 03/31/24 POC Glucose 124 mg/dL (74-106) H 03/30/24 22:27 03/30/24 TSH 1.64 uIU/mL (0.358-3.74) 02/27/21 08:10 02/27/21 COAG PT 14.7 SECONDS (11.7-14.9) 11/18/23 10:30 11/18/23 Pre-Assessment Diagnosis/Proposed Procedure Planned Operative Procedure(s): COLONOSCOPY, EGD Anesthesia History Anesthesia History - impregnator helper: Anesthesia History - impregnator helper Hx Hospitalization No 10/18/24 11:26 Any Problems With Anesthesia No 10/18/24 11:26 Cholinesterase deficiency No 10/18/24 11:26 You/Your Family Experience No 10/18/24 11:26 fever (hyperthermia) with Relationship Recent Exposure to Contagious No 11/06/23 06:46 Disease Does patient have nerve No 10/18/24 11:26 stimulator Patient instructed to have device shut off --Does patient have Pacemaker No 10/20/24 07:44 or ICD? When Was Last Pacemaker Check QUESTION #4 FULL TEXT: You/Your Family Experience fever (hyperthermia) with Anesthesia Last Oral Intake Last Oral intake: Last Oral Intake NPO since 06:30 10/20/24 07:44 Meds taken in AM with sips of water? Meds patient instructed to take am of surgery PONV PONV - impregnator helper: PONV - impregnator helper Female No 10/18/24 11:26 HX of Motion Sickness No 10/18/24 11:26 HX of N/V After Surgery No 10/18/24 11:26 Non-Smoker Yes 10/18/24 11:26 Duration of Surgery greater No 10/18/24 11:26 than 60 minutes Number of Risk Factors 1 10/18/24 11:26 PONV Score Low Risk 10/18/24 11:26 Height & Weight Height & Weight: Anesthesia: Height & Weight Height 6 ft 10/20/24 07:44 Weight: 150.9 kg 10/20/24 07:44 Body Mass Index (BMI) 45.1 10/20/24 07:44 Respiratory Assessment Respiratory Assessment - impregnator helper: Respiratory Tract Infection Hx - impregnator helper Hx Respiratory Tract Infection No 10/18/24 11:26 STOP Sleep Apnea STOP Sleep Apnea - impregnator helper: STOP Sleep Apnea - impregnator helper Hx Hypertension Yes 10/18/24 11:26 Hx Sleep Apnea Yes: DOESNT WEAR CPAP OR 10/18/24 11:26 BIPAP CPAP No 10/18/24 11:26 BIPAP No 10/18/24 11:26 Do you snore loudly (louder than talking or can be heard Do you often feel tired/ fatigued/ sleepy during daytime? Has anyone observed you stop breathing during sleep? STOP Results Positive 10/18/24 11:26 QUESTION #5 FULL TEXT : Do you snore loudly (louder than talking or can be heard through closed doors)? 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 Specify any problems Hx of Preganancy in last 3 N/A 10/18/24 11:26 Months Nurse Filling Out Transfusion [facility] 10/18/24 11:26 & Questions: Date: 10/18/24 10/18/24 11:26 Time: 11:33 10/18/24 11:26 Patient unable to answer at this time (ie. confused, unrespo /Reproduction History /Reproductive History - impregnator helper: /Reproductive Hx- impregnator helper Hx Now No 10/18/24 11:26 Gestational Age (in weeks): EDC: Hx Hx Para Hx Section SAB No 10/18/24 11:26 Active Medications Active Medications: Current Medications Generic Name Dose Route Start Last Admin Trade Name Freq PRN Reason Stop Dose Admin Lactated Ringer's 1,000 mls @ 15 mls/hr 10/20/24 07:30 10/20/24 07:52 IV 15 mls/hr .Q48H MARIAMA Administration PFSH Medical History Redness of skin Thyroid disease Insulin dependent diabetes mellitus Anemia Hepatitis High cholesterol Difficulty swallowing History of diverticulitis Chronic cough History of pain when walking History of stress test History of irregular heartbeat Cellulitis Sleep apnea Lives in assisted living facility Wears glasses Wears dentures Depression Low iron Fatty liver Syncope Dietary restriction CPAP (continuous positive airway pressure) dependence Shortness of breath on exertion History of edema History of echocardiogram Cardiology follow-up encounter Tumor Atherosclerosis of coronary artery of [place] heart without angina pectoris Kidney stones COPD (chronic obstructive pulmonary disease) Former smoker Irregular heart beat NSVT (nonsustained ventricular tachycardia) Diabetes Asthma Hypothyroidism Hypertension Home Medications ?Medication ?Instructions ?Recorded ?Last Taken ?Type potassium chloride 20 mEq 20 meq PO DAILYCM SUPPLEMENT 04/23/19 12/30/23 Rx tablet,extended release(part/cryst) metformin 1,000 mg tablet 1,000 mg PO BID DIABETES 01/18/21 12/30/23 History tamsulosin 0.4 mg capsule 0.4 mg PO QHS PROSTATE 02/05/21 12/29/23 History albuterol sulfate 90 mcg/actuation 2 puff inhalation Q4H PRN 02/11/21 Unknown History aerosol inhaler SHORTNESS OF BREATH/WHEEZING montelukast 10 mg tablet 10 mg PO QHS ALLERGIES 01/10/22 12/29/23 History (Singulair) acetaminophen 650 mg 650 mg PO Q8H PRN PAIN/FEVER 02/04/22 Unknown History tablet,extended release (Tylenol Arthritis Pain) guaifenesin 600 mg tablet, 600 mg PO Q12H PRN CONGESTION 02/04/22 11/18/23 History extended release 12 hr (Mucinex) fluticasone propionate 115 2 puff inhalation BID COPD 07/31/22 12/30/23 History mcg-salmeterol 21 mcg/actuation HFA inhaler (Advair HFA) blood sugar diagnostic 11/25/22 Unknown History atorvastatin 80 mg tablet 80 mg PO QHS CHOLESTEROL 11/18/23 12/29/23 History polyethylene glycol 3350 17 17 g PO DAILY PRN Constipation 02/12/24 10/19/24 History gram/dose oral powder (Miralax) metoprolol tartrate 25 mg tablet 25 mg PO BID #120 tabs 03/31/24 10/20/24 Rx sotalol 80 mg tablet 120 mg (1.5 x 80 mg) PO BID #120 03/31/24 Unknown Rx tabs levothyroxine 200 mcg tablet 275 mcg PO DAILY THYROID 07/07/24 10/20/24 History trazodone 50 mg tablet 25 mg PO QHS SLEEP 07/07/24 Unknown History furosemide 40 mg tablet 40 mg PO DAILY PRN PRN EDEMA 07/13/24 Unknown History melatonin 10 mg tablet 9 mg PO QHS SLEEP 07/13/24 Unknown History omeprazole 20 mg capsule,delayed 20 mg PO DAILY GERD 07/13/24 10/20/24 History release semaglutide 2 mg/dose (8 mg/3 mL) 2 mg subcut .wed DIABETES 07/13/24 10/06/24 History subcutaneous pen injector (Ozempic) aspirin 81 mg capsule 81 mg PO DAILY 09/13/24 Unknown History insulin glargine 100 unit/mL (3 56 unit subcut QPM 09/13/24 Unknown History mL) subcutaneous pen (Lantus Solostar U-100 Insulin) nystatin 100,000 unit/gram topical 1 applic topical 4X/DAY PRN PRN 09/13/24 Unknown History powder SKIN FOLDS omega-3 fatty acids 2,000 mg PO DAILY 09/13/24 Unknown History senna-docusate sodium tablet 2 tab PO QHS 09/13/24 Unknown History lisinopril 2.5 mg tablet 2.5 mg PO DAILY 10/20/24 Unknown History Allergy/AdvReac Type Severity Reaction Status Date / Time No Known Allergies Allergy Verified 10/20/24 07:38 Family History Unknown Colon polyps Surgical History History of cardiac catheterization Hx of colonoscopy History of coronary artery stent placement (01/18/21) History of thyroidectomy Social History household members: other details: Assisted living housing: assisted living facility current occupational status: disabled Smoking Status: Former smoker how long ago did patient quit smokin years ago alcohol intake: never substance use type: does not use caffeine: Yes Type: carbonated beverages Review of Systems (Anesthesia) ROS Narrative System reviewed and no additional complaints, except as documented.
[2024-10-20 08:11] LABS: Bedside Glucose 79 mg/dL (74-106)
--- NOTE | 2024-10-20 09:15 | EGD_PTH ---
PATIENT: ZAK HOYT LOC: [facility] U#:[id number] AGE/SX: 59/M ROOM: RE10/20/[address]: Dr. Mata Pastor DO : 1965 BED: DIS: 10/20/2024 SPEC #: [id number] RECD: 10/20/24 12:13 STATUS: ARY JOSÉ #: [id number] ABELARDO: 10/20/24 09:[address]: Mata Pastor DEPT: SURGICAL PATHOLOGY RECD BY: Nikunj Trevino ENTERED: 10/20/24 14:08 SP TYPE: EGD BIOPSY MILADY DR: Radha Barajas, BLADDER BLOWER-C Tissues: A - Esophagus, NOS B - Gastric fundus C - Gastric mucous membrane D - Ascending colon E - COLON BIOPSY F - Transverse colon G - COLON BIOPSY Procedures: Immunohistochemical Stains Surgery Specimen Level IV HEADER OPERATION: Colonoscopy, EGD and biopsy and polypectomy PRE-OP DIAGNOSIS: Anemia, left upper quadrant pain, personal history of colon polyps, loss of appetite TISSUE SUBMITTED: A- Random esophagus biopsy, B- Gastric fundus biopsy, C- Gastric antrum biopsy, D- Ascending colon polyp, E- Right colon polyp, F- Transverse colon polyp x2, G- Left side of colon biopsy MICROSCOPIC DIAGNOSIS A. Esophagus, random, biopsy: * Benign squamous epithelium with acute and chronic inflammation (See note) Note: A PAS stain is in progress and will be reported as an addendum B. Stomach, gastric fundus, biopsy: * Oxyntic mucosa with mild chronic inflammation * No morphologic evidence of Helicobacter pylori organisms C. Stomach, gastric antrum, biopsy: * Antral mucosa with mild chronic focal active inflammation with reactive changes and intestinal metaplasia * The Helicobacter pylori immunostain is negative D. Ascending colon, polyp, biopsy: * Inflammatory polyp E. Colon, right, polyp, biopsy: * Inflammatory polyp F. Transverse colon, polyp x 2, biopsy: * Colonic mucosa with dilated crypts and lymphoid aggregates G. Colon, left, biopsy: * Focal active cryptitis (See note) Note: Sections show focal active cryptitis with surface inflammation and a mild increase in mixed inflammatory cells within the lamina propria. There is Paneth cell metaplasia identified. There are no granulomas or areas of dysplasia. The findings are not specific and may be seen in infections, medication-induced, NSAIDS and inflammatory bowel disease, among others. Clinical correlation is recommended. MICROSCOPIC DESCRIPTION Slides are reviewed. These tests were developed and their performance characteristics determined by [facility]. They may not have been cleared or approved by the U.[place]. Food and Drug Administration. The FDA has determined that such clearance or approval is not necessary. The above immunohistochemical/dualISH markers are ordered and reviewed by the Pathologist. GROSS DESCRIPTION A. Received in formalin in a container labeled with the patient's name, date of , and random esophagus biopsies are 2 holley-pink fragments of mucosal tissue each measuring approximately 0.5 x 0.3 x 0.2 cm. Submitted in toto in A1. B. Received in formalin in a container labeled with the patient's name, date of , and gastric fundus biopsy are multiple holley-pink fragments of mucosal tissue measuring 0.8 x 0.5 x 0.3 cm in aggregate. Submitted in toto in B1. C. Received in formalin in a container labeled with the patient's name, date of , and gastric antrum biopsy-H. pylori and path are multiple holley-pink fragments of mucosal tissue measuring 0.9 x 0.6 x 0.3 cm in aggregate. Submitted in toto in C1. D. Received in formalin in a container labeled with the patient's name, date of , and ascending colon polyp are multiple holley-pink fragments of mucosal tissue measuring 1.5 x 0.6 x 0.3 cm in aggregate. Submitted in toto in D1. E. Received in formalin in a container labeled with the patient's name, date of , and right colon polyp are multiple holley-pink fragments of mucosal tissue measuring 1.3 x 0.5 x 0.2 cm in aggregate. Submitted in toto in E1. F. Received in formalin in a container labeled with the patient's name, date of , and transverse colon polyp x 2 are multiple holley-pink fragments of mucosal tissue measuring 1.6 x 0.5 x 0.3 cm in aggregate. Submitted in toto in F1. G. Received in formalin in a container labeled with the patient's name, date of , and left side of colon biopsy are multiple holley-pink fragments of mucosal tissue measuring 1.6 x 0.8 x 0.3 cm in aggregate. ES G1. [facility] 10-20-2024 CPT:[id number] ADDENDUM ADDENDUM 10/28/2024 13:35 ADDENDUM 10/28/2024 13:35 ADDENDUM 10/28/2024 13:35 ADDENDUM 10/28/2024 13:35 ADDENDUM 10/28/2024 13:35 The PAS stain is negative
--- NOTE | 2024-10-20 09:42 | PCM.HP.STD ---
HPI - General General Date of Admission: 10/20/24 Date of Service: 10/20/24 Chief Complaint: h/o polyps HPI Narrative ZAK HOYT, is a 59 M who need a colonoscopy LUQ pain - deep pressure applying pressure relieves pain - no change with PO intake or movement - denies any weight loss - denies any HB BOWEL PREP has never been good - no change with eating - Miralax PRN - denies any bleeding BM - daily - does not always fully eliminate - denies any bleeding - weight gain - denies any falls in the past year Colon 11/06/2023 - TA, hyperplastic and inflammatory polyps - Preparation of the colon was poor. - Many 1 to 2 mm polyps in the sigmoid colon, at the hepatic flexure and in the ascending colon, removed with a hot snare. Resected and retrieved. - Multiple 4 mm polyps in the sigmoid colon and in the transverse colon, removed with a jumbo cold forceps. Resected and retrieved. - Stool in the rectum, in the recto-sigmoid colon, in the transverse colon, at the hepatic flexure, in the ascending colon and in the cecum. - Diverticulosis in the recto-sigmoid colon and in the sigmoid colon. Colon 09/17/2022 - TA and inflammatory polyps - Preparation of the colon was fair. - Diverticulosis in the recto-sigmoid colon and in the sigmoid colon. - Five 1 to 2 mm polyps in the sigmoid colon, in the transverse colon and in the ascending colon, removed with a hot snare. Resected and retrieved. - Stool in the rectum, in the recto-sigmoid colon, in the sigmoid colon, in the descending colon, at the splenic flexure and in the cecum. Colon 03/21/2022 - inflammatory polyps, random biopsies melanosis coli - Preparation of the colon was fair. - Multiple 5 mm, non-bleeding polyps in the entire colon. - Three 1 to 2 mm polyps in the rectum, in the sigmoid colon and in the descending colon, removed with a hot snare. Resected and retrieved. - Congested mucosa in the entire examined colon. Biopsied. - Diverticulosis in the recto-sigmoid colon and in the sigmoid colon. [facility] Medical History Redness of skin Thyroid disease Insulin dependent diabetes mellitus Anemia Hepatitis High cholesterol Difficulty swallowing History of diverticulitis Chronic cough History of pain when walking History of stress test History of irregular heartbeat Cellulitis Sleep apnea Lives in assisted living facility Wears glasses Wears dentures Depression Low iron Fatty liver Syncope Dietary restriction CPAP (continuous positive airway pressure) dependence Shortness of breath on exertion History of edema History of echocardiogram Cardiology follow-up encounter Tumor Atherosclerosis of coronary artery of [place] heart without angina pectoris Kidney stones COPD (chronic obstructive pulmonary disease) Former smoker Irregular heart beat NSVT (nonsustained ventricular tachycardia) Diabetes Asthma Hypothyroidism Hypertension Home Medications ?Medication ?Instructions ?Recorded ?Last Taken ?Type potassium chloride 20 mEq 20 meq PO DAILYCM SUPPLEMENT 04/23/19 12/30/23 Rx tablet,extended release(part/cryst) metformin 1,000 mg tablet 1,000 mg PO BID DIABETES 01/18/21 12/30/23 History tamsulosin 0.4 mg capsule 0.4 mg PO QHS PROSTATE 02/05/21 12/29/23 History albuterol sulfate 90 mcg/actuation 2 puff inhalation Q4H PRN 02/11/21 Unknown History aerosol inhaler SHORTNESS OF BREATH/WHEEZING montelukast 10 mg tablet 10 mg PO QHS ALLERGIES 01/10/22 12/29/23 History (Singulair) acetaminophen 650 mg 650 mg PO Q8H PRN PAIN/FEVER 02/04/22 Unknown History tablet,extended release (Tylenol Arthritis Pain) guaifenesin 600 mg tablet, 600 mg PO Q12H PRN CONGESTION 02/04/22 11/18/23 History extended release 12 hr (Mucinex) fluticasone propionate 115 2 puff inhalation BID COPD 07/31/22 12/30/23 History mcg-salmeterol 21 mcg/actuation HFA inhaler (Advair HFA) blood sugar diagnostic 11/25/22 Unknown History atorvastatin 80 mg tablet 80 mg PO QHS CHOLESTEROL 11/18/23 12/29/23 History polyethylene glycol 3350 17 17 g PO DAILY PRN Constipation 02/12/24 10/19/24 History gram/dose oral powder (Miralax) metoprolol tartrate 25 mg tablet 25 mg PO BID #120 tabs 03/31/24 10/20/24 Rx sotalol 80 mg tablet 120 mg (1.5 x 80 mg) PO BID #120 03/31/24 Unknown Rx tabs levothyroxine 200 mcg tablet 275 mcg PO DAILY THYROID 07/07/24 10/20/24 History trazodone 50 mg tablet 25 mg PO QHS SLEEP 07/07/24 Unknown History furosemide 40 mg tablet 40 mg PO DAILY PRN PRN EDEMA 07/13/24 Unknown History melatonin 10 mg tablet 9 mg PO QHS SLEEP 07/13/24 Unknown History omeprazole 20 mg capsule,delayed 20 mg PO DAILY GERD 07/13/24 10/20/24 History release semaglutide 2 mg/dose (8 mg/3 mL) 2 mg subcut .wed DIABETES 07/13/24 10/06/24 History subcutaneous pen injector (Ozempic) aspirin 81 mg capsule 81 mg PO DAILY 09/13/24 Unknown History insulin glargine 100 unit/mL (3 56 unit subcut QPM 09/13/24 Unknown History mL) subcutaneous pen (Lantus Solostar U-100 Insulin) nystatin 100,000 unit/gram topical 1 applic topical 4X/DAY PRN PRN 09/13/24 Unknown History powder SKIN FOLDS omega-3 fatty acids 2,000 mg PO DAILY 09/13/24 Unknown History senna-docusate sodium tablet 2 tab PO QHS 09/13/24 Unknown History lisinopril 2.5 mg tablet 2.5 mg PO DAILY 10/20/24 Unknown History Allergy/AdvReac Type Severity Reaction Status Date / Time No Known Allergies Allergy Verified 10/20/24 07:38 Family History Unknown Colon polyps Surgical History History of cardiac catheterization Hx of colonoscopy History of coronary artery stent placement (01/18/21) History of thyroidectomy Social History household members: other details: Assisted living housing: assisted living facility current occupational status: disabled Smoking Status: Former smoker how long ago did patient quit smokin years ago alcohol intake: never substance use type: does not use caffeine: Yes Type: carbonated beverages ROS Constitutional Constitutional: Denies fatigue, fever(s), poor appetite, weight gain or weight loss Gastrointestinal Gastrointestinal: Denies belching, bloating, change in bowel habits, change in stool character, chewing difficulty, coffee ground emesis, constipation, cramping, diarrhea, dyspepsia, dysphagia, early satiety, excessive flatus, fecal incontinence, heartburn, hematemesis, hematochezia, hemorrhoids, loose stools, melena, nausea, odynophagia, rectal bleeding, tenesmus, vomiting or weight changes Vital Signs Vital Signs Vital Signs: 10/20/24 07:44 10/20/24 07:44 10/20/24 08:06 Temperature 98.2 F 98.2 F Temperature Source Temporal Pulse Rate 75 75 Respiratory Rate 20 H 20 H Respiratory Pattern Normal Blood Pressure 118/53 L 118/53 L Blood Pressure Mean 74 Blood Pressure Source Monitor Blood Pressure Position Semi-Fowlers Blood Pressure Location Left Arm Pulse Ox 92 92 Oxygen Delivery Method Room Air Weight Weight: 332 lb 10.841 oz Body Mass Index (BMI) 45.1 Results Lab / Micro Data Labs: Laboratory Results - last 24 hr 10/20/24 07:37: POC Glucose 79 Assessment & Plan Assessment/Plan (1) LUQ pain: (2) Anemia: (3) Encounter for screening for malignant neoplasm of colon: PLAN: Assessment and Plan Assessment and Plan (1) Personal history of colonic polyps: Status: Acute (2) LUQ pain: Status: Acute (3) Anemia: Status: Acute (4) Loss of appetite: Status: Acute Orders: Orders CBC W/Diff, Automated Today D64.9 - Anemia, unspecified, R10.12 - Left upper quadrant pain, R63.0 - Anorexia, Z86.010 - Personal history of colon polyps Comprehensive Metabolic Profil Today D64.9 - Anemia, unspecified, R10.12 - Left upper quadrant pain, R63.0 - Anorexia, Z86.010 - Personal history of colon polyps Abdomen Complete Today D64.9 - Anemia, unspecified, R10.12 - Left upper quadrant pain, R63.0 - Anorexia, Z86.010 - Personal history of colon polyps Medications: New peg 3350-electrolytes 236-22.74-6.74 -5.86 gram (Golytely) take as directed for split dose bowel prep until fecal effluent is clear 240 mL PO Q10M 4,000 mL 0RF polyethylene glycol 3350 (Miralax) Take as directed for 2day bowel prep 4 grams PO ONCE 238 grams 0RF colonoscopy polyethylene glycol 3350 (Miralax) Take as directed for 2day bowel prep 17 grams PO ONCE 238 grams 0RF colonoscopy Plan 59y/o male presents for consultation with a personal history of colon polyps and c/o LUQ pain. Colonoscopy was last performed October 2023 and revealed adenomas. Historically, all bowel preps in the past have been poor. He complains of LUQ abdominal pain. Pain is not exacerbated with PO intake or movement. He denies any N/V, but does endorse a loss of appetite. I have scheduled him for an ABD US, bidirectional endoscopies and ordered routine labs. Patient Instructions: Colon & EGD - 2 day bowel prep (1d GoLyte and 1d Miralax) ABD US CBC and CMP
--- NOTE | 2024-10-20 10:38 | OP.CCLET_ITS ---
10/20/2024 Radha Barajas Re : Upper GI endoscopy procedure for Derrell Naranjo Dear Karl This procedure was performed on Sunday, October 20, 2024. My impressions and recommendations are as follows: Impressions : - Esophageal polyp(s) were found. Biopsied. - Multiple gastric polyps. Biopsied. - Multiple duodenal polyps. Biopsied. Recommendations : - Discharge patient to home. - Resume previous diet. - Continue present medications. My findings are described in the full procedure note, which is enclosed. If I can be of further assistance, please feel free to contact me at . Sincerely, Mata Pastor, 10/20/2024 10:38:03 AM This report has been signed electronically.
--- NOTE | 2024-10-20 10:38 | OP.EGD_ITS ---
Patient Name: Derrell Naranjo Procedure Date: 10/20/2024 9:51 AM Date of : 1965 Age: 59 Procedure: Upper GI endoscopy Indications: Iron deficiency anemia Providers: Mata Pastor DO Medicines: Monitored Anesthesia Care Patient Profile: This is a 59 year old male. Refer to note in patient chart for documentation of history and physical. Patient has symptoms of chronic epigastric abdominal pain and chronic dyspepsia. Complications: No immediate complications. Procedure: Pre-Anesthesia Assessment: - Prior to the procedure, a History and Physical was performed, and patient medications and allergies were reviewed. The patient is competent. The risks and benefits of the procedure and the sedation options and risks were discussed with the patient. All questions were answered and informed consent was obtained. Patient identification and proposed procedure were verified by the physician in the pre-procedure area. Mental Status Examination: alert and oriented. Airway Examination: normal oropharyngeal airway and neck mobility. Respiratory Examination: clear to auscultation. CV Examination: normal. Prophylactic Antibiotics: The patient does not require prophylactic antibiotics. Prior Anticoagulants: The patient has taken no anticoagulant or antiplatelet agents except for NSAID medication. ASA Grade Assessment: II - A patient with mild systemic disease. After reviewing the risks and benefits, the patient was deemed in satisfactory condition to undergo the procedure. The anesthesia plan was to use monitored anesthesia care (MAC). Immediately prior to administration of medications, the patient was re-assessed for adequacy to receive sedatives. The heart rate, respiratory rate, oxygen saturations, blood pressure, adequacy of pulmonary ventilation, and response to care were monitored throughout the procedure. The physical status of the patient was re-assessed after the procedure. After obtaining informed consent, the endoscope was passed under direct vision. Throughout the procedure, the patient's blood pressure, pulse, and oxygen saturations were monitored continuously. The Colonoscope was introduced through the mouth, and advanced to the third part of duodenum. The upper GI endoscopy was accomplished with ease. The patient tolerated the procedure well. Scope In: 9:59:44 AM Scope Out: 10:04:52 AM Total Procedure Duration Time 0 hours 5 minutes 8 seconds Findings: Multiple 3 mm polyps with no bleeding were found 20 to 40 cm from the incisors. Biopsies were taken with a cold forceps for histology. Verification of patient identification for the specimen was done. Estimated blood loss was minimal. Multiple 5 mm hyperplastic polyps with no bleeding and no stigmata of recent bleeding were found in the entire examined stomach. Biopsies were taken with a cold forceps for histology. Verification of patient identification for the specimen was done. Estimated blood loss was minimal. Multiple 5 mm hyperplastic polyps with no bleeding were found in the entire duodenum. Biopsies were taken with a cold forceps for histology. Verification of patient identification for the specimen was done. Estimated blood loss was minimal. Impression: - Esophageal polyp(s) were found. Biopsied. - Multiple gastric polyps. Biopsied. - Multiple duodenal polyps. Biopsied. Recommendation: - Discharge patient to home. - Resume previous diet. - Continue present medications. Procedure Code(s): --- Professional --- 85938, Esophagogastroduodenoscopy, flexible, transoral; with biopsy, single or multiple CPT copyright 2021 [employer]. All rights reserved. The codes documented in this report are preliminary and upon drama teacher review may be revised to meet current compliance requirements. Mata Pastor DO 10/20/2024 10:38:03 AM This report has been signed electronically. Number of Addenda: 0 Note Initiated On: 10/20/2024 9:51 AM
--- NOTE | 2024-10-20 10:43 | OP.CCLET_ITS ---
10/20/2024 Radha Barajas Re : Colonoscopy procedure for Derrell Naranjo Dear Karl This procedure was performed on Sunday, October 20, 2024. My impressions and recommendations are as follows: Impressions : - Preparation of the colon was fair. - One 15 mm polyp in the ascending colon, removed with a hot snare. Resected and retrieved. - Diverticulosis in the recto-sigmoid colon, in the sigmoid colon and in the descending colon. - Multiple 1 to 2 mm polyps in the entire colon. Biopsied. Recommendations : - Repeat colonoscopy for surveillance. - Continue present medications. My findings are described in the full procedure note, which is enclosed. If I can be of further assistance, please feel free to contact me at . Sincerely, Mata Pastor, 10/20/2024 10:42:28 AM This report has been signed electronically.
--- NOTE | 2024-10-20 10:43 | OP.COLON_ITS ---
Patient Name: eDrrell Naranjo Procedure Date: 10/20/2024 10:04 AM Date of : 1965 Age: 59 Procedure: Colonoscopy Indications: Colon polyps of uncertain behavior Providers: Mata Pastor DO Medicines: Monitored Anesthesia Care Patient Profile: This is a 59 year old male. Refer to note in patient chart for documentation of history and physical. Patient has symptoms of chronic epigastric abdominal pain and chronic dyspepsia. This is a 59 year old male. Refer to note in patient chart for documentation of history and physical. Last Colonoscopy: within the past 3 years. Complications: No immediate complications. Procedure: Pre-Anesthesia Assessment: - Prior to the procedure, a History and Physical was performed, and patient medications and allergies were reviewed. The patient is competent. The risks and benefits of the procedure and the sedation options and risks were discussed with the patient. All questions were answered and informed consent was obtained. Patient identification and proposed procedure were verified by the physician in the pre-procedure area. Mental Status Examination: alert and oriented. Airway Examination: normal oropharyngeal airway and neck mobility. Respiratory Examination: clear to auscultation. CV Examination: normal. Prophylactic Antibiotics: The patient does not require prophylactic antibiotics. Prior Anticoagulants: The patient has taken no anticoagulant or antiplatelet agents except for NSAID medication. ASA Grade Assessment: II - A patient with mild systemic disease. After reviewing the risks and benefits, the patient was deemed in satisfactory condition to undergo the procedure. The anesthesia plan was to use monitored anesthesia care (MAC). Immediately prior to administration of medications, the patient was re-assessed for adequacy to receive sedatives. The heart rate, respiratory rate, oxygen saturations, blood pressure, adequacy of pulmonary ventilation, and response to care were monitored throughout the procedure. The physical status of the patient was re-assessed after the procedure. After I obtained informed consent, the scope was passed under direct vision. Throughout the procedure, the patient's blood pressure, pulse, and oxygen saturations were monitored continuously. The Colonoscope was introduced through the anus and advanced to the cecum, identified by appendiceal orifice and ileocecal valve. The colonoscopy was performed without difficulty. The patient tolerated the procedure well. The quality of the bowel preparation was fair. Scope In: 10:07:20 AM Scope Withdrawal Time 0 hours 14 minutes 54 seconds Scope Out: 10:28:04 AM Total Procedure Duration Time 0 hours 20 minutes 44 seconds Findings: The perianal and digital rectal examinations were normal. A 15 mm polyp was found in the ascending colon. The polyp was sessile. The polyp was removed with a hot snare. Resection and retrieval were complete. Verification of patient identification for the specimen was done. Estimated blood loss was minimal. Multiple small-mouthed diverticula were found in the recto-sigmoid colon, sigmoid colon and descending colon. Multiple sessile polyps were found in the entire colon. The polyps were 1 to 2 mm in size. Biopsies were taken with a cold forceps for histology. Verification of patient identification for the specimen was done. Estimated blood loss was minimal. Impression: - Preparation of the colon was fair. - One 15 mm polyp in the ascending colon, removed with a hot snare. Resected and retrieved. - Diverticulosis in the recto-sigmoid colon, in the sigmoid colon and in the descending colon. - Multiple 1 to 2 mm polyps in the entire colon. Biopsied. Recommendation: - Repeat colonoscopy for surveillance. - Continue present medications. Procedure Code(s): --- Professional --- 16278, Colonoscopy, flexible; with removal of tumor(s), polyp(s), or other lesion(s) by snare technique 11814, 59, Colonoscopy, flexible; with biopsy, single or multiple CPT copyright 2021 [employer] [employer]. All rights reserved. The codes documented in this report are preliminary and upon hims coder review may be revised to meet current compliance requirements. Mata Pastor DO 10/20/2024 10:42:28 AM This report has been signed electronically. Number of Addenda: 0 Note Initiated On: 10/20/2024 10:04 AM
--- NOTE | 2024-10-20 10:45 | PCM.POST.ANE ---
Anesthesia: Postop Eval I Current Vital Signs Temperature: 98.2 F Pulse Rate: 76 Blood Pressure: 85/42 Respiratory Rate: 16 Pulse Ox: 93 Oxygen Delivery Method: Room Air Assessment Airway patent: Yes Spontaneous unlabored respirations: Yes Mental status: Awake and Calm nausea: No Vomiting: No Anesthesia Complication: No Fluid Hydration Crystalloid volume administer (ml): 400 Total IV fluid infused: 400 Progress Note Anesthesia document: Postop Eval 1 completed: Yes
--- NOTE | 2024-10-20 11:08 | PCM.POSTANE2 ---
Anesthesia Postop Eval I Sum Postop Eval Completion status Anesthesia document: Postop Eval 1 completed: Yes Anesthesia Postop Eval I Summary Anesthesia Postop Eval I Summary: Anesthesia Postop Eval I: Assessment Summary Airway patent Yes 10/20/24 10:46 [email or web address] Spontaneous unlabored Yes 10/20/24 10:46 [email or web address] respirations Mental status Awake,Calm 10/20/24 10:46 [email or web address] nausea No 10/20/24 10:46 [email or web address] Vomiting No 10/20/24 10:46 [email or web address] Anesthesia Postop Eval I: Fluid Summary Crystalloid volume administer 400 10/20/24 10:46 [email or web address] (ml) Colloids volume administered ( ml) Blood Product volume administered (ml) Total IV fluid infused 400 10/20/24 10:46 [email or web address] Anesthesia Postop Eval I: Summary Notes Anesthesia Complication No 10/20/24 10:46 [email or web address] Anesthesia Complication Comment: Post-operative progress note Anesthesia: Postop Eval II Evaluation Mental status: Awake Pain Level: 0 nausea: No Vomiting: No
--- NOTE | 2024-10-20 11:08 | SUR.PHASEII ---
report given to nurse at [facility]
== END 2024-10-20 11:34 | disposition home or self-care (01) ==
LOC: EN 07:07 → AC 07:08
PROVIDERS: PCP Nurse Practitioner Adult Health; Referring Provider Nurse Practitioner Adult Health; Visit Provider Internal Medicine Gastroenterology
PROC: 0DJD8ZZ Inspection of Lower Intestinal Tract, Via Natural or Artificial Opening Endoscopic (ICD-10-PCS; CPT 45378; principal; 2024-10-20 09:10)
DX: Z12.11 Encounter for screening for malignant neoplasm of colon (principal); J44.9 Chronic obstructive pulmonary disease, unspecified; E11.9 Type 2 diabetes mellitus without complications; K63.5 Polyp of colon; Z87.891 Personal history of nicotine dependence; I10 Essential (primary) hypertension; K31.7 Polyp of stomach and duodenum; K57.30 Diverticulosis of large intestine without perforation or abscess without bleeding; I25.10 Atherosclerotic heart disease of native coronary artery without angina pectoris; K22.81 Esophageal polyp; Z86.0100 Personal history of colon polyps, unspecified; E78.00 Pure hypercholesterolemia, unspecified; D50.9 Iron deficiency anemia, unspecified; Z79.890 Hormone replacement therapy; Z79.85 Long-term (current) use of injectable non-insulin antidiabetic drugs; E03.9 Hypothyroidism, unspecified; K31.A0 Gastric intestinal metaplasia, unspecified; K62.89 Other specified diseases of anus and rectum; K20.90 Esophagitis, unspecified without bleeding; K29.50 Unspecified chronic gastritis without bleeding; Z79.899 Other long term (current) drug therapy
CPT/HCPCS: 45380; 45385; 43239; 82962; 88305; 88342; J2405

== ENCOUNTER 2024-11-30 12:35 | Emergency (ER) | payer MEDICARE, MEDICAID, SELFPAY ==
[2024-11-30] VITALS (8 sets, daily range): BP systolic 105–113; BP diastolic 51–54; PULSE 67–75; RESP 14–20; TEMP 36.3–36.9; O2SAT 91–100; BMI 45.9
--- NOTE | 2024-11-30 13:27 | EKG12_ITS ---
Test Reason : CHEST PRESSURE Blood Pressure : */* mmHG Vent. Rate : 74 BPM Atrial Rate : 74 BPM P-R Int : 184 ms QRS Dur : 90 ms QT Int : 414 ms P-R-T Axes : 30 23 27 degrees QTcB Int : 459 ms Normal sinus rhythm Normal ECG Confirmed by Michael Allred ([id number]), news video editor ELODIA FARRAR ([id number]) on 12/02/2024 6:11:18 AM Referred By: Confirmed By: Michael Allred
--- NOTE | 2024-11-30 13:30 | RAD_ITS ---
PROCEDURE: CHEST 1 VIEW (PORTABLE) 11/30/2024 REASON FOR EXAM: CHEST PAIN TECHNIQUE: Frontal view of the chest. COMPARISON: Chest x-ray of 12/14/2023. RAD/Chest 1 View (Portable) IMPRESSION: Left hemidiaphragm elevation with the adjacent compressive left basilar atelect asis is again seen. No evidence of pulmonary edema. No focal infiltrate is otherwise noted. No pleural effusion or pneumothorax is seen. Prior coronary artery stenting is again seen. The cardiomediastinal silhouette is stable, without evidence of cardiomegaly. Reading Location: [address]
[2024-11-30] MEDS: Aspirin 81 MG TAB.CHEW 324 MG PO (13:39)
--- NOTE | 2024-11-30 13:39 | EX.ED.DYSGE1 ---
HPI History of Present Illness Chief Complaint: Chest Other Detail of Chief Complaint: Just not feeling myself Informant: patient Onset/Context/Timing Onset: Days Context: Gradual Onset Timing: Continuous Current Severity: Mild Maximum Severity: Mild Narrative Narrative: 59-year-old male states past medical history including diabetes, anemia, COPD, hypertension. Last stress test was 11/20/2023 he said he had a heart cath last year also. Patient is just has not felt like himself the last several days. Said he had a constant chest discomfort. He had nausea and vomiting yesterday x 1. Denies diarrhea. No melena or hematemesis. No fever. No abdominal pain. No dysuria. Prior similar symptoms: No Recent Illness/Hospitalization: No PFSH PFSH Medical History Redness of skin Thyroid disease Insulin dependent diabetes mellitus Anemia Hepatitis High cholesterol Difficulty swallowing History of diverticulitis Chronic cough History of pain when walking History of stress test History of irregular heartbeat Cellulitis Sleep apnea Lives in assisted living facility Wears glasses Wears dentures Depression Low iron Fatty liver Syncope Dietary restriction CPAP (continuous positive airway pressure) dependence Shortness of breath on exertion History of edema History of echocardiogram Cardiology follow-up encounter Tumor Atherosclerosis of coronary artery of [place] heart without angina pectoris Kidney stones COPD (chronic obstructive pulmonary disease) Former smoker Irregular heart beat NSVT (nonsustained ventricular tachycardia) Diabetes Asthma Hypothyroidism Hypertension Home Medications ?Medication ?Instructions ?Recorded ?Last Taken ?Type potassium chloride 20 mEq 20 meq PO DAILYCM SUPPLEMENT 04/23/19 12/30/23 Rx tablet,extended release(part/cryst) metformin 1,000 mg tablet 1,000 mg PO BID DIABETES 01/18/21 12/30/23 History tamsulosin 0.4 mg capsule 0.4 mg PO QHS PROSTATE 02/05/21 12/29/23 History albuterol sulfate 90 mcg/actuation 2 puff inhalation Q4H PRN 02/11/21 Unknown History aerosol inhaler SHORTNESS OF BREATH/WHEEZING montelukast 10 mg tablet 10 mg PO QHS ALLERGIES 01/10/22 12/29/23 History (Singulair) acetaminophen 650 mg 650 mg PO Q8H PRN PAIN/FEVER 02/04/22 Unknown History tablet,extended release (Tylenol Arthritis Pain) guaifenesin 600 mg tablet, 600 mg PO Q12H PRN CONGESTION 02/04/22 11/18/23 History extended release 12 hr (Mucinex) fluticasone propionate 115 2 puff inhalation BID COPD 07/31/22 12/30/23 History mcg-salmeterol 21 mcg/actuation HFA inhaler (Advair HFA) blood sugar diagnostic 11/25/22 Unknown History atorvastatin 80 mg tablet 80 mg PO QHS CHOLESTEROL 11/18/23 12/29/23 History polyethylene glycol 3350 17 17 g PO DAILY PRN Constipation 02/12/24 10/19/24 History gram/dose oral powder (Miralax) metoprolol tartrate 25 mg tablet 25 mg PO BID #120 tabs 03/31/24 10/20/24 Rx levothyroxine 200 mcg tablet 275 mcg PO DAILY THYROID 07/07/24 10/20/24 History omeprazole 20 mg capsule,delayed 20 mg PO DAILY GERD 07/13/24 10/20/24 History release semaglutide 2 mg/dose (8 mg/3 mL) 2 mg subcut QWEEK DIABETES 07/13/24 10/06/24 History subcutaneous pen injector (Ozempic) insulin glargine 100 unit/mL (3 56 unit subcut QPM 09/13/24 Unknown History mL) subcutaneous pen (Lantus Solostar U-100 Insulin) lisinopril 2.5 mg tablet 2.5 mg PO DAILY 10/20/24 Unknown History finasteride 5 mg tablet (Proscar) 5 mg PO QDAY 11/11/24 Unknown History glipizide 5 mg tablet 5 mg PO QDAY 11/11/24 Unknown History melatonin 10 mg tablet 10 mg PO QHS SLEEP 11/11/24 Unknown History sennosides 8.6 mg tablet (Greer-danyel) 17.2 mg PO QDAY 11/11/24 Unknown History trazodone 50 mg tablet 150 mg PO QHS SLEEP 11/11/24 Unknown History bisacodyl 10 mg rectal suppository 10 mg TX ONCE PRN constipation 11/19/24 Unknown History doxycycline hyclate 100 mg capsule 100 mg PO BID 11/19/24 Unknown History furosemide 40 mg tablet 40 mg PO BID EDEMA 11/19/24 Unknown History venlafaxine 37.5 mg tablet 37.5 mg PO BID 11/19/24 Unknown History acetaminophen 325 mg capsule 650 mg PO Q6H PRN pain 11/30/24 Unknown History ammonium lactate 12 % topical cream 1 applic topical BID PRN dry skin 11/30/24 Unknown History levothyroxine 75 mcg tablet 75 mcg PO DAILY 11/30/24 Unknown History (Synthroid) magnesium hydroxide 400 mg/5 mL 30 ml PO DAILY PRN constipation 11/30/24 Unknown History oral suspension (Dulcolax (magnesium hydroxide)) mineral oil-hydrophil petrolat 1 applic topical DAILY 11/30/24 Unknown History topical ointment (AmeriPhor topical ointment) ondansetron 4 mg disintegrating 4 mg PO DAILY PRN nausea and 11/30/24 Unknown History tablet vomiting sotalol 120 mg tablet (Betapace) 120 mg PO BID 11/30/24 Unknown History Allergy/AdvReac Type Severity Reaction Status Date / Time No Known Allergies Allergy Verified 11/19/24 11:00 Family History Unknown Colon polyps Surgical History History of cardiac catheterization Hx of colonoscopy History of coronary artery stent placement (01/18/21) History of thyroidectomy Social History household members: other details: Assisted living housing: assisted living facility current occupational status: disabled Smoking Status: Former smoker how long ago did patient quit smokin years ago alcohol intake: never substance use type: does not use caffeine: Yes Type: carbonated beverages ROS ROS ED ROS Narrative Atypical chest pain. Constitutional Constitutional ED: Denies chills or fever(s) Eyes Eyes: Denies blurry vision ENT ENT ED: Denies ear pain Cardiovascular Cardiovascular: Reports chest pain; Denies palpitations or racing heartbeat Respiratory/Chest Respiratory/Chest: Reports dyspnea; Denies cough Gastrointestinal Gastrointestinal: Denies abdominal pain Genitourinary Genitourinary ED: Denies dysuria or hematuria Musculoskeletal Musculoskeletal: Denies arthralgias or back pain Integumentary Denies abscess or Abrasions Neurologic Neurologic: Denies headache(s) Psychiatric Psychiatric: Denies anxiety or depression Endocrine Endocrinology: Denies cold intolerance Hematologic/Lymphatic Hematologic/Lymphatic: Reports none Allergic/Immunologic Allergic/Immunologic ED: Denies mouth swelling, tongue swelling or urticaria EXAM Physical Exam Narrative Exam Narrative: 59-year-old male sitting upright in bed. Vital signs are stable. Room air sat 91%. Patient does not look septic dicey. He is in no distress. H EENT exam is round react light. Moist mucous membranes. Face scalp not atraumatic. Neck nontender JVD. Back nontender. Lungs clear to auscultation bilaterally. Heart regular rhythm rate about 70 no murmur. Chest wall and ribs nontender. No ecchymosis or bruising. Abdomen soft, nontender, nondistended normal vitals without peritoneal signs. Moving all 4 extremities. 5 out of 5 inspector water pollution control strength. Dorsi plantarflexion. Calves are nontender without edema or cords. Neurologically is awake alert. He is answering questions following commands. Const Vital Signs: 11/30/24 12:43 11/30/24 12:43 11/30/24 12:49 Temperature 98.4 F 98.4 F Temperature Source Oral Oral Pulse Rate 72 72 Respiratory Rate 19 H 20 H Respiratory Effort Normal Non-Labored Blood Pressure 109/51 L 105/52 L Blood Pressure Mean 70 69 Pulse Ox 91 96 Oxygen Delivery Method Room Air Nasal Cannula Oxygen Flow Rate (L/min) 2 11/30/24 13:31 11/30/24 13:38 11/30/24 13:48 Temperature 97.5 F L Temperature Source Oral Pulse Rate 75 72 Respiratory Rate 17 19 H Respiratory Effort Blood Pressure 110/53 L 110/53 L Blood Pressure Mean 72 72 Pulse Ox 98 98 98 Oxygen Delivery Method Room Air Nasal Cannula Oxygen Flow Rate (L/min) 2 2 11/30/24 14:00 11/30/24 14:48 11/30/24 15:45 Temperature 97.4 F L 97.8 F Temperature Source Oral Oral Pulse Rate 67 70 Respiratory Rate 14 14 Respiratory Effort Blood Pressure 108/53 L 108/53 L 113/54 L Blood Pressure Mean 71 71 70 Pulse Ox 97 98 100 Oxygen Delivery Method Nasal Cannula Nasal Cannula Oxygen Flow Rate (L/min) 2 2 Positive well nourished, well developed and obese; Negative for cachectic, contractures or unkempt General Appearance ED: well developed and NAD; Negative for unkempt, cachectic, contractures, cyanotic, diaphoretic or pallor Nutritional Appearance: obese; Negative for cachectic HEENT Reports moist mucous membranes Negative for trauma or tenderness Eyes PERRL and EOMs intact bilaterally General Eye ED: Negative for pale conjunctiva or scleral icterus Neck no lymphadenopathy, supple and no JVD General: Negative for tenderness Chest Wall inspection of chest normal and palpation of chest normal Resp normal respiratory effort and clear to auscultation bilaterally Auscultation: Negative for rales, rhonchi, wheezes or diminished lung sounds Cardio regular rate, regular rhythm, S1 normal heart sound, S2 normal heart sound and no murmurs Palpation: Negative for palpable S3 or palpable S4 Rate: Negative for bradycardia, tachycardic or other GI normal to inspection, nondistended, normoactive bowel sounds, non-tender, non-distended and no masses Auscultation: normoactive bowel sounds Palpation: soft; Negative for tender, guarding or rebound tenderness present Back/Spine no CVA tenderness General Back: Negative for CVA tenderness Cervical Spine: Negative for cervical spine tenderness Thoracic Spine / Upper Back: Negative for thoracic spinal tenderness or paraspinal muscle tenderness Lumbar Spine / Lower Back: Negative for lumbar spinal tenderness Extremity normal to inspection General Extremety ED: Negative for edema or tenderness General Extremity: Negative for edema Neuro oriented x3 and CN's II-XII intact bilaterally Sensorium / Orientation: alert; Negative for orientation impaired, lethargic or stuporous Motor Exam: strength 5/5 throughout Psych mental status grossly normal Appearance: Negative for unkempt Attitude: No agitated Mood & Affect: Negative for depressed, anxious or tearful Skin no rashes or lesions noted and no wounds General Skin Exam: Negative for jaundice or pallor Lesions: No lesion noted Rashes: No rashes noted Trauma: Negative for abrasion Wounds: Negative for wounds noted MDM MDM MDM Narrative Medical decision making narrative: 59-year-old male with complaint of just not feeling himself. Atypical constant chest pain for the last several days. History of cardiac disease. Last heart cath was last year. Denies any history of DVT or PE. Get a general medical workup with cardiac enzymes and a D-dimer. Repeat exam patient is doing well at 4:10 PM. Hemoglobin is 9.4 reportedly was 9.6 yesterday. Lateral most recent labs here 8 months ago. I did do a rectal exam there was no gross blood or black stool. I have his nurse practitioner on page. There is no reason to admit the patient at this time. He is comfortable being discharged home. He has eaten here his blood sugars improved. History & Record Review Discussion w/independent historian: Patient Additional record(s) reviewed:: Prior inpatient record, Prior outpatient record, Prior ED visit and Prior labs Lab Data Attestation: I reviewed the patient's lab results. Lab results narrative: CBC shows white count 13.8. H&H 9.4 and 34. Patient is at baseline anemia. Platelets 257. D-dimer is 0.27 normal. Electrolytes show sodium 136. Gap 11. BUN 13 creatinine 0.60. Initial glucose was only 40 nurses rechecked it was 72 show no signs of acute hypoglycemia. Initial troponin was 22. 2-hour troponin was 20. Labs: Laboratory Results - last 24 hr 11/30/24 11/30/24 11/30/24 12:23 14:30 15:00 WBC 13.8 H RBC 4.66 Hgb 9.4 L Hct 34.2 L MCV 73.4 L MCH 20.2 L MCHC 27.5 L RDW Std Deviation 52.0 H RDW Coeff of Jovany 20.2 H Plt Count 257 MPV 9.6 Immature Gran % (Auto) 0.400 Neut % (Auto) 77.4 H Lymph % (Auto) 11.5 L Ada % (Auto) 8.8 Eos % (Auto) 1.5 Baso % (Auto) 0.4 Absolute Neuts (auto) 10.7 H Absolute Lymphs (auto) 1.59 Nucleated RBC % 0 Platelet Estimate A Polychromasia 1+ Anisocytosis 1+ Ovalocytes 1+ D-Dimer Quant (PE/DVT) 0.27 Sodium 136 Potassium 4.2 Chloride 93 L Carbon Dioxide 32.0 Anion Gap 11 BUN 13 Creatinine 0.68 L Estim Creat Clear Calc 178.68 Est GFR (MDRD) Non-Af 107 BUN/Creatinine Ratio 19.2 Glucose 40 L* Calcium 9.3 Troponin T High Sens 22 Troponin T Hi Sens 2 Hr 20 POC Glucose 52 L 11/30/24 15:17 WBC RBC Hgb Hct MCV MCH MCHC RDW Std Deviation RDW Coeff of Jovany Plt Count MPV Immature Gran % (Auto) Neut % (Auto) Lymph % (Auto) Ada % (Auto) Eos % (Auto) Baso % (Auto) Absolute Neuts (auto) Absolute Lymphs (auto) Nucleated RBC % Platelet Estimate Polychromasia Anisocytosis Ovalocytes D-Dimer Quant (PE/DVT) Sodium Potassium Chloride Carbon Dioxide Anion Gap BUN Creatinine Estim Creat Clear Calc Est GFR (MDRD) Non-Af BUN/Creatinine Ratio Glucose Calcium Troponin T High Sens Troponin T Hi Sens 2 Hr POC Glucose 74 Radiography Chest X-Ray - ED: 1 View, Read by ED Physician, Read by Radiologist, Heart, Lungs, Mediastinum, Bony Structures, No Acute Disease and Chronic Changes Diagnostic Testing: Clinical Impression(s) from Imaging Studies Chest X-Ray 11/30/24 13:30 IMPRESSION: Left hemidiaphragm elevation with the adjacent compressive left basilar atelectasis is again seen. No evidence of pulmonary edema. No focal infiltrate is otherwise noted. No pleural effusion or pneumothorax is seen. Prior coronary artery stenting is again seen. The cardiomediastinal silhouette is stable, without evidence of cardiomegaly. Reading Location: [id number] Chest x-ray, 2 films AP view. Shows chronic changes. No acute process. Bibasilar atelectasis. Rhythm Strip Rhythm Strip: Sinus Rhythm Rate: 74 Ectopy: None EKG Initial EKG: Attestation: I personally reviewed and interpreted this EKG as follows: Interpretation: Sinus Rhythm and No Acute Injury Pattern Comments: Normal sinus rhythm rate of 74 no acute signs of [place] or ischemia. No dysrhythmia. Discharge Plan Triage Chief Complaint: Chest Other ED Provider: Antoine Hahn Dx/Rx/DC Orders Clinical Impression: Malaise, Atypical chest pain, Chronic anemia, Hypoglycemia, History of diabetes mellitus Instructions: ED Chest Pain, Uncertain Cause Prescriptions: No Action tamsulosin 0.4 mg capsule 0.4 mg PO QHS acetaminophen [Tylenol Arthritis Pain] 650 mg tablet extended release 650 mg PO Q8H PRN (Reason: PAIN/FEVER) guaifenesin [Mucinex] 600 mg tablet extended release 12hr 600 mg PO Q12H PRN (Reason: CONGESTION ) montelukast [Singulair] 10 mg tablet 10 mg PO QHS fluticasone propion-salmeterol [Advair HFA] 115-21 mcg/actuation HFA aerosol inhaler 2 puff inhalation BID melatonin 10 mg tablet 10 mg PO QHS (DME) blood sugar diagnostic Kit See Rx Instructions .Route Rx Instructions: As directed omeprazole 20 mg capsule,delayed release(DR/EC) 20 mg PO DAILY Ozempic 2 mg/dose (8 mg/3 mL) pen injector 2 mg subcut QWEEK Rx Instructions: FRIDAY polyethylene glycol 3350 [Miralax] 17 gram/dose powder 17 g PO DAILY PRN (Reason: Constipation) bisacodyl 10 mg suppository 10 mg TX ONCE PRN (Reason: constipation) doxycycline hyclate 100 mg capsule 100 mg PO BID venlafaxine 37.5 mg tablet 37.5 mg PO BID sennosides [Greer-danyel] 8.6 mg tablet 17.2 mg PO QDAY glipizide 5 mg tablet 5 mg PO QDAY finasteride [Proscar] 5 mg tablet 5 mg PO QDAY potassium chloride 20 MEQ tablet 20 meq PO DAILYCM 0RF metformin 1,000 mg tablet 1,000 mg PO BID albuterol sulfate 90 mcg/actuation HFA aerosol inhaler 2 puff INHALATION Q4H PRN (Reason: SHORTNESS OF BREATH/WHEEZING ) trazodone 50 mg tablet 150 mg PO QHS atorvastatin 80 mg tablet 80 mg PO QHS levothyroxine 200 mcg tablet 275 mcg PO DAILY furosemide 40 mg tablet 40 mg PO BID metoprolol tartrate 25 mg Tablet 25 mg PO BID Qty: 120 2RF insulin glargine [Lantus Solostar U-100 Insulin] 100 unit/mL (3 mL) insulin pen 56 unit subcut QPM acetaminophen 325 mg capsule 650 mg PO Q6H PRN (Reason: pain) ammonium lactate 12 % cream 1 applic topical BID PRN (Reason: dry skin) AmeriPhor Ointment 1 applic topical DAILY levothyroxine [Synthroid] 75 mcg tablet 75 mcg PO DAILY Rx Instructions: WITH 200MCG TAB magnesium hydroxide [Dulcolax (magnesium hydroxide)] 400 mg/5 mL suspension 30 ml PO DAILY PRN (Reason: constipation) ondansetron 4 mg tablet,disintegrating 4 mg PO DAILY PRN (Reason: nausea and vomiting) sotalol [Betapace] 120 mg tablet 120 mg PO BID lisinopril 2.5 mg tablet 2.5 mg PO DAILY Primary Care Provider: Radha Barajas [employer] Referrals: Radha Barajas [employer], [employer]-C [Primary Care Provider] - As soon as possible Activity Restrictions/Additional Instructions: Your labs and chest x-ray look good today. Your blood sugar is low that came back up. Your blood count is more anemic than you have been. You are 9.4 today. Supposedly you were 9.6 yesterday. Follow-up with your nurse practitioner Heather Barajas. For repeat evaluation. Probably need to have your blood count rechecked in 1 to 2 weeks. Print Language: [place] Disposition Disposition: Home, Self Care
[2024-11-30 13:42] LABS: Absolute Lymphocyte Count 1.59 X10^3/uL (0.83-4.51); Absolute Neutrophil Count 10.7 X10^3/uL (2.0-7.7); Basophil# 0.06 X10^3/uL; Basophil% 0.4 % (0-1); Eosinophils% 1.5 % (0-5); Hematocrit 34.2 % (40-54); Hemoglobin 9.4 g/dL (13.0-16.5); Lymphocyte # 1.59 X10^3/ul (0.83-4.51); Lymphocyte % 11.5 % (19-41); Mean Corp Hgb Conc 27.5 g/dL (32-36); Mean Corpuscular Hgb 20.2 pg (27.0-32.0); Mean Corpuscular Volume 73.4 fL (80-94); Mean Platelet Vol. 9.6 fl (6.2-12.0); Monocyte# 1.22 X10^3/uL; Monocyte% 8.8 % (0-10); NRBC Flagged by Analyzer 0 % (0-5); Neutrophil # 10.66 X10^3/uL (2.7-7.7); Neutrophil % 77.4 % (47-70); POSITIVE MORPHOLOGY YES; Platelet Count 257 K/mm3 (150-450); RBC Distribution Width CV 20.2 % (11.6-14.6); Red Blood Count 4.66 M/mm3 (4.6-6.2); White Blood Count 13.8 K/mm3 (4.4-11.0)
[2024-11-30 13:43] LABS: Differential Indicated SCAN CRITERIA MET
[2024-11-30 14:21] LABS: Troponin T High Sensitivity 22 ng/L (<=22)
[2024-11-30 14:28] LABS: Anisocytosis 1+; Ovalocyte 1+; Platelet Estimate A (ADEQ); Polychromasia 1+
[2024-11-30 14:35] LABS: Anion Gap 11 (5-15); BUN 13 mg/dL (4-19); BUN/Creat Ratio 19.2 RATIO (10-20); Calcium,Total 9.3 mg/dL (7.6-11.0); Chloride 93 mmol/L (98-108); Creatinine, Serum 0.68 mg/dL (0.70-1.20); EST Glomerular Filtration Rate 107 (>60); Estimated Creatinine Clearance 178.68 ml/min (50-250); Potassium 4.2 mmol/L (3.3-5.1); Sodium Level 136 mmol/L (133-145)
[2024-11-30 14:50] LABS: D-Dimer Quantitative (DVT/PE) 0.27 FEU/ug/m (0.27-0.49)
--- NOTE | 2024-11-30 14:55 | ED.RN ---
checked on pt. SPO2 88%. replace NC @ 2 L
[2024-11-30 15:17] LABS: Bedside Glucose 52 mg/dL (74-106)
[2024-11-30 15:21] LABS: Glucose 40 mg/dL (70-99)
[2024-11-30 15:32] LABS: Troponin T High Sens 2 HR 20 ng/L (<=22)
[2024-11-30 15:35] LABS: Bedside Glucose 74 mg/dL (74-106)
== END 2024-11-30 17:59 | disposition home or self-care (01) ==
PROVIDERS: Emergency Provider Emergency Medicine; PCP Nurse Practitioner Adult Health; Visit Provider Emergency Medicine
DX: R07.89 Other chest pain (principal); J44.9 Chronic obstructive pulmonary disease, unspecified; E11.649 Type 2 diabetes mellitus with hypoglycemia without coma; Z79.4 Long term (current) use of insulin; I25.10 Atherosclerotic heart disease of native coronary artery without angina pectoris; D64.9 Anemia, unspecified; E78.00 Pure hypercholesterolemia, unspecified; Z95.5 Presence of coronary angioplasty implant and graft; Z79.84 Long term (current) use of oral hypoglycemic drugs; Z79.85 Long-term (current) use of injectable non-insulin antidiabetic drugs; Z79.51 Long term (current) use of inhaled steroids; Z79.899 Other long term (current) drug therapy; Z87.891 Personal history of nicotine dependence
CPT/HCPCS: 71045; 80048; 82962; 84484; 85025; 85379; 93005; 99285; A4216

== ENCOUNTER 2024-12-15 18:37 | Inpatient (IN) | payer MEDICARE, MEDICAID, SELFPAY ==
[2024-12-15] VITALS (10 sets, daily range): BP systolic 100–132; BP diastolic 51–70; PULSE 75–89; RESP 18–20; TEMP 36.1–37.3; O2SAT 77–97; BMI 45.3; BMI 44.6
--- NOTE | 2024-12-15 20:18 | ED.RN ---
1999: This RN went into the room to obtain VS on the patient. This RN got a Sp02 reading of 77% on RA while the patient was laying down with his chin was resting on his chest. 2004: With the patient sitting up at the edge of the bed, the patient's Sp02 increased up to 90% on RA. The patient denied any SOB. 2009: The patient admitted to using supplemental oxygen at home for a time, but took himself off of it. While discussing the patient's Sp02 the reading decreased to 87% on RA. This RN put 2L on the patient. MD entered the room at this time, MD made aware of the situation. 2014: MD ordered the supplemental 02 to be taken off of the patient d/t the patient's history of COPD and Sp02 at 97% on 2L.
--- NOTE | 2024-12-15 20:39 | EX.ED.DYSGE1 ---
HPI History of Present Illness Chief Complaint: Wound Narrative Narrative: Chief complaint and HPI: Left lower extremity wounds. 59-year-old male with past medical history of DM2, COPD, HTN presents for evaluation of left lower extremity wounds. Patient states he lives in assisted care facility. States for the past week he has had wounds on his left lower extremity. States that he has been dressing them and applying a cream. He does not know what the cream is called however on chart review it appears that he is likely applying AmeriPhor. Patient states he is unsure if he follows with a foot doctor. Patient states the wounds have become more red and are now draining. Mild pain. He states his sugars have been controlled. He denies any fever, chills, shortness of breath, chest pain, nausea, vomiting. Patient endorses bilateral lower extremity swelling. Review of systems: See HPI Medications: As listed on the chart Allergies: As listed on the chart PFSH: Per chart Vital signs: As listed on the chart. Reviewed. Physical exam: Gen: A&O x3, NAD Head: Normocephalic, atraumatic Eyes: No sclera icterus, conjunctiva clear ENT: Moist mucous membranes Neck: Trachea midline, No JVD CV: RRR, no murmurs, + 2 bilateral peripheral edema of the lower extremities Resp: Lungs diminished in the bilateral bases, difficult to auscultate due to body habitus GI: Obese, abd soft, non-distended, non-tender, no r/r/g Musc: Moves all extremities, no deformity Skin: Warm, patient has chronic lymphedema skin changes to the bilateral lower extremities left lower extremity has multiple large ulcers that are weeping clear drainage, erythematous, mildly warm Neuro: Alert, oriented, grossly intact, sensation intact Psych: Cooperative, appropriate mood and affect [facility] Medical History Redness of skin Thyroid disease Insulin dependent diabetes mellitus Anemia Hepatitis High cholesterol Difficulty swallowing History of diverticulitis Chronic cough History of pain when walking History of stress test History of irregular heartbeat Cellulitis Sleep apnea Lives in assisted living facility Wears glasses Wears dentures Depression Low iron Fatty liver Syncope Dietary restriction CPAP (continuous positive airway pressure) dependence Shortness of breath on exertion History of edema History of echocardiogram Cardiology follow-up encounter Tumor Atherosclerosis of coronary artery of [place] heart without angina pectoris Kidney stones COPD (chronic obstructive pulmonary disease) Former smoker Irregular heart beat NSVT (nonsustained ventricular tachycardia) Diabetes Asthma Hypothyroidism Hypertension Home Medications ?Medication ?Instructions ?Recorded ?Last Taken ?Type potassium chloride 20 mEq 20 meq PO DAILYCM SUPPLEMENT 04/23/19 12/30/23 Rx tablet,extended release(part/cryst) metformin 1,000 mg tablet 1,000 mg PO BID DIABETES 01/18/21 12/30/23 History tamsulosin 0.4 mg capsule 0.4 mg PO QHS PROSTATE 02/05/21 12/29/23 History albuterol sulfate 90 mcg/actuation 2 puff inhalation Q4H PRN 02/11/21 Unknown History aerosol inhaler SHORTNESS OF BREATH/WHEEZING montelukast 10 mg tablet 10 mg PO QHS ALLERGIES 01/10/22 12/29/23 History (Singulair) acetaminophen 650 mg 650 mg PO Q8H PRN PAIN/FEVER 02/04/22 Unknown History tablet,extended release (Tylenol Arthritis Pain) guaifenesin 600 mg tablet, 600 mg PO Q12H PRN CONGESTION 02/04/22 11/18/23 History extended release 12 hr (Mucinex) fluticasone propionate 115 2 puff inhalation BID COPD 07/31/22 12/30/23 History mcg-salmeterol 21 mcg/actuation HFA inhaler (Advair HFA) blood sugar diagnostic 11/25/22 Unknown History atorvastatin 80 mg tablet 80 mg PO QHS CHOLESTEROL 11/18/23 12/29/23 History polyethylene glycol 3350 17 17 g PO DAILY PRN Constipation 02/12/24 10/19/24 History gram/dose oral powder (Miralax) metoprolol tartrate 25 mg tablet 25 mg PO BID #120 tabs 03/31/24 10/20/24 Rx levothyroxine 200 mcg tablet 275 mcg PO DAILY THYROID 07/07/24 10/20/24 History omeprazole 20 mg capsule,delayed 20 mg PO DAILY GERD 07/13/24 10/20/24 History release semaglutide 2 mg/dose (8 mg/3 mL) 2 mg subcut QWEEK DIABETES 07/13/24 10/06/24 History subcutaneous pen injector (Ozempic) insulin glargine 100 unit/mL (3 56 unit subcut QPM 09/13/24 Unknown History mL) subcutaneous pen (Lantus Solostar U-100 Insulin) lisinopril 2.5 mg tablet 2.5 mg PO DAILY 10/20/24 Unknown History finasteride 5 mg tablet (Proscar) 5 mg PO QDAY 11/11/24 Unknown History glipizide 5 mg tablet 5 mg PO QDAY 11/11/24 Unknown History melatonin 10 mg tablet 10 mg PO QHS SLEEP 11/11/24 Unknown History sennosides 8.6 mg tablet (Greer-danyel) 17.2 mg PO QDAY 11/11/24 Unknown History trazodone 50 mg tablet 150 mg PO QHS SLEEP 11/11/24 Unknown History bisacodyl 10 mg rectal suppository 10 mg NH ONCE PRN constipation 11/19/24 Unknown History doxycycline hyclate 100 mg capsule 100 mg PO BID 11/19/24 Unknown History furosemide 40 mg tablet 40 mg PO BID EDEMA 11/19/24 Unknown History venlafaxine 37.5 mg tablet 37.5 mg PO BID 11/19/24 Unknown History acetaminophen 325 mg capsule 650 mg PO Q6H PRN pain 11/30/24 Unknown History ammonium lactate 12 % topical cream 1 applic topical BID PRN dry skin 11/30/24 Unknown History levothyroxine 75 mcg tablet 75 mcg PO DAILY 11/30/24 Unknown History (Synthroid) magnesium hydroxide 400 mg/5 mL 30 ml PO DAILY PRN constipation 11/30/24 Unknown History oral suspension (Dulcolax (magnesium hydroxide)) mineral oil-hydrophil petrolat 1 applic topical DAILY 11/30/24 Unknown History topical ointment (AmeriPhor topical ointment) ondansetron 4 mg disintegrating 4 mg PO DAILY PRN nausea and 11/30/24 Unknown History tablet vomiting sotalol 120 mg tablet (Betapace) 120 mg PO BID 11/30/24 Unknown History Allergy/AdvReac Type Severity Reaction Status Date / Time No Known Allergies Allergy Verified 11/19/24 11:00 Family History Unknown Colon polyps Surgical History History of cardiac catheterization Hx of colonoscopy History of coronary artery stent placement (01/18/21) History of thyroidectomy Social History household members: other details: Assisted living housing: assisted living facility current occupational status: disabled Smoking Status: Former smoker how long ago did patient quit smokin years ago alcohol intake: never substance use type: does not use caffeine: Yes Type: carbonated beverages EXAM Physical Exam Const Vital Signs: 12/15/24 18:39 12/15/24 20:00 12/15/24 20:05 Temperature 99.1 F 98.5 F Temperature Source Oral Oral Pulse Rate 89 82 Respiratory Rate 20 H 18 Respiratory Effort Respiratory Pattern Blood Pressure 132/70 H 126/58 H Blood Pressure Mean 90 80 Pulse Ox 90 77 90 Oxygen Delivery Method Room Air Room Air Room Air Oxygen Flow Rate (L/min) 12/15/24 20:05 12/15/24 20:07 12/15/24 20:10 Temperature Temperature Source Pulse Rate Respiratory Rate Respiratory Effort Respiratory Pattern Blood Pressure Blood Pressure Mean Pulse Ox 90 87 96 Oxygen Delivery Method Room Air Room Air Nasal Cannula Oxygen Flow Rate (L/min) 2 12/15/24 20:15 12/15/24 20:20 12/15/24 20:26 Temperature Temperature Source Pulse Rate Respiratory Rate Respiratory Effort Normal Non-Labored Respiratory Pattern Normal Blood Pressure Blood Pressure Mean Pulse Ox 97 90 Oxygen Delivery Method Nasal Cannula Room Air Oxygen Flow Rate (L/min) 2 12/15/24 21:00 12/15/24 22:00 12/15/24 22:00 Temperature 98.4 F 98.4 F 98.4 F Temperature Source Oral Oral Pulse Rate 79 79 79 Respiratory Rate 18 18 18 Respiratory Effort Respiratory Pattern Blood Pressure 100/51 L 106/57 L 100/51 L Blood Pressure Mean 67 73 67 Pulse Ox 92 91 91 Oxygen Delivery Method Room Air Room Air Oxygen Flow Rate (L/min) MDM MDM MDM Narrative Medical decision making narrative: 59-year-old male with past medical history of DM2, COPD, HTN presents for evaluation of left lower extremity wounds. Left lower extremity wounds have been present for multiple weeks. More erythematous and now draining clear fluid. Also endorses bilateral lower extremity edema. Patient has no history of heart failure. See physical exam findings. Differential diagnosis includes but is not limited to left lower extremity cellulitis, heart failure, peripheral edema, electrolyte abnormality, bacteremia. On chart review, I do not see any notes from podiatry. However patient did see plastic surgery in the past for lower extremity wounds. Basic labs ordered with chest x-ray. CBC with mild leukocytosis 11.5. Patient has baseline anemia with a hemoglobin of 8.6. Platelets unremarkable. BMP relatively unremarkable except for hyperglycemia of 116. BNP unremarkable. Chest x-ray was personally reviewed and interpreted by me, ED physician. Patient has cardiomegaly with pulmonary vascular congestion and bilateral small effusions. Radiology in agreement. Lasix ordered. Although lactic acid is elevated at 2.2. Will not be giving any fluids due to patient's fluid overload. Patient would benefit from admission for continued diuresis as well as antibiotics for his left lower extremity. Originally I ordered Unasyn however on chart review, patient's previous wound cultures grew out multiple bacteria. One of the bacteria was resistant to Unasyn. They were all sensitive to Zosyn. Zosyn ordered and Unasyn DC'd.. Patient was updated of all the results and the plan. He confirmed understanding. Hospitalist accepted admission. Impression: 1. Left lower extremity cellulitis secondary to diabetic wound 2. Fluid overload with peripheral edema, concern for heart failure Lab Data Labs: Laboratory Results - last 24 hr 12/15/24 12/15/24 19:00 20:57 WBC 11.5 H RBC 4.31 L Hgb 8.6 L Hct 31.6 L MCV 73.3 L MCH 20.0 L MCHC 27.2 L RDW Std Deviation 53.4 H RDW Coeff of Jovany 20.6 H Plt Count 217 MPV 9.4 Immature Gran % (Auto) 0.300 Neut % (Auto) 78.6 H Lymph % (Auto) 12.[address] % (Auto) 7.7 Eos % (Auto) 1.1 Baso % (Auto) 0.3 Absolute Neuts (auto) 9.0 H Absolute Lymphs (auto) 1.38 Nucleated RBC % 0 Differential Comment SCANNED Platelet Estimate ADEQUATE Polychromasia 1+ Anisocytosis 1+ Sodium 133 Potassium 4.4 Chloride 92 L Carbon Dioxide 30.8 Anion Gap 10 BUN 14 Creatinine 0.73 Estim Creat Clear Calc 165.21 Est GFR (MDRD) Non-Af 105 BUN/Creatinine Ratio 19.3 Glucose 116 H Lactic Acid 2.2 H* Calcium 8.9 NT pro BNP II 220 Radiography Diagnostic Testing: Clinical Impression(s) from Imaging Studies Chest X-Ray 12/15/24 20:40 IMPRESSION: Findings compatible with CHF/volume overload. Reading Location: [id number] Discharge Plan Triage Chief Complaint: Wound ED Provider: Derrick Camejo Dx/Rx/DC Orders Prescriptions: No Action tamsulosin 0.4 mg capsule 0.4 mg PO QHS acetaminophen [Tylenol Arthritis Pain] 650 mg tablet extended release 650 mg PO Q8H PRN (Reason: PAIN/FEVER) guaifenesin [Mucinex] 600 mg tablet extended release 12hr 600 mg PO Q12H PRN (Reason: CONGESTION ) montelukast [Singulair] 10 mg tablet 10 mg PO QHS fluticasone propion-salmeterol [Advair HFA] 115-21 mcg/actuation HFA aerosol inhaler 2 puff inhalation BID melatonin 10 mg tablet 10 mg PO QHS (DME) blood sugar diagnostic Kit See Rx Instructions .Route Rx Instructions: As directed omeprazole 20 mg capsule,delayed release(DR/EC) 20 mg PO DAILY Ozempic 2 mg/dose (8 mg/3 mL) pen injector 2 mg subcut QWEEK Rx Instructions: FRIDAY polyethylene glycol 3350 [Miralax] 17 gram/dose powder 17 g PO DAILY PRN (Reason: Constipation) bisacodyl 10 mg suppository 10 mg NH ONCE PRN (Reason: constipation) doxycycline hyclate 100 mg capsule 100 mg PO BID venlafaxine 37.5 mg tablet 37.5 mg PO BID sennosides [Greer-danyel] 8.6 mg tablet 17.2 mg PO QDAY glipizide 5 mg tablet 5 mg PO QDAY finasteride [Proscar] 5 mg tablet 5 mg PO QDAY potassium chloride 20 MEQ tablet 20 meq PO DAILYCM 0RF metformin 1,000 mg tablet 1,000 mg PO BID albuterol sulfate 90 mcg/actuation HFA aerosol inhaler 2 puff INHALATION Q4H PRN (Reason: SHORTNESS OF BREATH/WHEEZING ) trazodone 50 mg tablet 150 mg PO QHS atorvastatin 80 mg tablet 80 mg PO QHS levothyroxine 200 mcg tablet 275 mcg PO DAILY furosemide 40 mg tablet 40 mg PO BID metoprolol tartrate 25 mg Tablet 25 mg PO BID Qty: 120 2RF insulin glargine [Lantus Solostar U-100 Insulin] 100 unit/mL (3 mL) insulin pen 56 unit subcut QPM acetaminophen 325 mg capsule 650 mg PO Q6H PRN (Reason: pain) ammonium lactate 12 % cream 1 applic topical BID PRN (Reason: dry skin) AmeriPhor Ointment 1 applic topical DAILY levothyroxine [Synthroid] 75 mcg tablet 75 mcg PO DAILY Rx Instructions: WITH 200MCG TAB magnesium hydroxide [Dulcolax (magnesium hydroxide)] 400 mg/5 mL suspension 30 ml PO DAILY PRN (Reason: constipation) ondansetron 4 mg tablet,disintegrating 4 mg PO DAILY PRN (Reason: nausea and vomiting) sotalol [Betapace] 120 mg tablet 120 mg PO BID lisinopril 2.5 mg tablet 2.5 mg PO DAILY Primary Care Provider: Radha Barajas [employer]UUM CLEANER OPERATOR Referrals: Radha Barajas VACUUM CLEANER OPERATOR, [employer] CLEANER OPERATOR-C [Primary Care Provider] - Print Language: Guinean
--- NOTE | 2024-12-15 20:40 | RAD_ITS ---
PROCEDURE: CHEST PA AND LATERAL 12/15/2024 REASON FOR EXAM: FLUID OVERLOAD TECHNIQUE: CHEST PA AND LATERAL COMPARISON: Chest radiograph 11/30/2024. FINDINGS: Hardware: None. Heart: Stable moderate cardiomegaly with pulmonary vascular congestion. Retrocardiac lucency, compatible with hiatal hernia. Mediastinum: The mediastinal contour is stable. Lungs: Trace pleural effusions. Bibasilar atelectasis/scarring. No obvious focal consolidation or pneumothorax. Bones: Degenerative changes are identified within the thoracic spine. RAD/Chest PA and Lateral IMPRESSION: Findings compatible with CHF/volume overload. Reading Location: [id number]
[2024-12-15 20:44] LABS: Absolute Lymphocyte Count 1.38 X10^3/uL (0.83-4.51); Basophil# 0.04 X10^3/uL; Basophil% 0.3 % (0-1); Eosinophil# 0.13 X10^3/uL; Eosinophils% 1.1 % (0-5); Hematocrit 31.6 % (40-54); Hemoglobin 8.6 g/dL (13.0-16.5); Lymphocyte # 1.38 X10^3/ul (0.83-4.51); Mean Corp Hgb Conc 27.2 g/dL (32-36); Mean Corpuscular Volume 73.3 fL (80-94); Mean Platelet Vol. 9.4 fl (6.2-12.0); Monocyte# 0.88 X10^3/uL; Monocyte% 7.7 % (0-10); NRBC Flagged by Analyzer 0 % (0-5); Neutrophil # 9.02 X10^3/uL (2.7-7.7); Neutrophil % 78.6 % (47-70); POSITIVE MORPHOLOGY YES; Platelet Count 217 K/mm3 (150-450); RBC Distribution Width CV 20.6 % (11.6-14.6); RBC Distribution Width SD 53.4 fl (35.1-43.9); Red Blood Count 4.31 M/mm3 (4.6-6.2); White Blood Count 11.5 K/mm3 (4.4-11.0)
[2024-12-15 20:48] LABS: Differential Indicated SCAN CRITERIA MET
[2024-12-15 21:09] LABS: Anion Gap 10 (5-15); BUN 14 mg/dL (4-19); BUN/Creat Ratio 19.3 RATIO (10-20); Calcium,Total 8.9 mg/dL (7.6-11.0); Carbon Dioxide 30.8 mmol/L (21.0-32.0); Chloride 92 mmol/L (98-108); Creatinine, Serum 0.73 mg/dL (0.70-1.20); EST Glomerular Filtration Rate 105 (>60); Estimated Creatinine Clearance 165.21 ml/min (50-250); Glucose 116 mg/dL (70-99); Potassium 4.4 mmol/L (3.3-5.1); Pro- Brain NATRIURETIC PEPTIDE 220 pg/mL (<=900); Sodium Level 133 mmol/L (133-145)
[2024-12-15 21:37] LABS: Differential Comment SCANNED; Platelet Estimate ADEQUATE (ADEQ)
[2024-12-15 21:38] LABS: Anisocytosis 1+; Polychromasia 1+
[2024-12-15 22:00] LABS: Lactic Acid 2.2 mmol/L (0.0-2.0)
[2024-12-15] MEDS: Piperacil/Tazobactam 3.375 GM in 0.9% Normal Saline (50mL MB+) 50 ML IV (22:12)
[2024-12-15] MEDS: Furosemide 40 MG/4 ML Vial IV (22:12)
--- NOTE | 2024-12-15 22:23 | PCM.HP.STD ---
HPI - General General Date of Admission: 12/15/24 Date of Service: 12/15/24 Chief Complaint: Worsening BL LE edema, LLE wound, increased pain, drainage. HPI Narrative The patient is a 59 y/o M w/ PMHx: Morbid obesity, BPH with obstructive pathology HTN, HLD, Hypothyroidism, IDDM, SHAHANA on CPAP, Chronic microcytic anemia/Fe deficiency anemia, Former tobacco use, Asthma/COPD, CAD s/p PCI who presents to the [facility] ED on 12/15/2024 with history of left lower extremity wounds noted to have worsened over the past week with self application of creams and dressings unclear of exactly what it is but following with podiatry however they become a red and are draining and mildly uncomfortable with no fevers or chills but given persistent worsening appearance prompted ED evaluation. Patient does have worsening bilateral lower extremity swelling with chronic orthopnea he notes. Review of weights in the system note 11/30/2024 weight 338 and now upon current presentation 12/15/2024 weight 334. He does report chronic orthopnea and has had increased bilateral lower extremity swelling but does report that he chronically has increased swelling more so to the left greater than the right. He is unsure of who from podiatry he has been following with outpatient. Patient reports that his left lower extremity primarily throbs and rates the discomfort 4 out of 10 in severity. He denies any severe dyspnea sensation but is chronically dyspneic with activity. Workup in the ED included T99.1 Oral, heart rate 89, BP 122/70, respiratory rate 20, initially 90% on room air however desaturated down to 77% with improvement to 97% on 2 L nasal cannula, CBC with WC 11.5, he one 8.6, MCV 73.3, platelet 217 with left shift, BMP with chloride 92, BUN/Willie 14/0.73, GFR 105, glucose 116, lactic acid 2.2, NT proBNP 220, chest x-ray with questionable pulmonary vascular congestion with stable moderate cardiomegaly. In the ED patient ministered IV Unasyn 3 g IV x 1, Zosyn 3.375 g IV x 1, Lasix 40 mg IV x 1. [facility] Medical History Redness of skin Thyroid disease Insulin dependent diabetes mellitus Anemia Hepatitis High cholesterol Difficulty swallowing History of diverticulitis Chronic cough History of pain when walking History of stress test History of irregular heartbeat Cellulitis Sleep apnea Lives in assisted living facility Wears glasses Wears dentures Depression Low iron Fatty liver Syncope Dietary restriction CPAP (continuous positive airway pressure) dependence Shortness of breath on exertion History of edema History of echocardiogram Cardiology follow-up encounter Tumor Atherosclerosis of coronary artery of [place] heart without angina pectoris Kidney stones COPD (chronic obstructive pulmonary disease) Former smoker Irregular heart beat NSVT (nonsustained ventricular tachycardia) Diabetes Asthma Hypothyroidism Hypertension Home Medications ?Medication ?Instructions ?Recorded ?Last Taken ?Type potassium chloride 20 mEq 20 meq PO DAILYCM SUPPLEMENT 04/23/19 12/30/23 Rx tablet,extended release(part/cryst) metformin 1,000 mg tablet 1,000 mg PO BID DIABETES 01/18/21 12/30/23 History tamsulosin 0.4 mg capsule 0.4 mg PO QHS PROSTATE 02/05/21 12/29/23 History albuterol sulfate 90 mcg/actuation 2 puff inhalation Q4H PRN 02/11/21 Unknown History aerosol inhaler SHORTNESS OF BREATH/WHEEZING montelukast 10 mg tablet 10 mg PO QHS PRN ALLERGIES 01/10/22 12/29/23 History (Singulair) guaifenesin 600 mg tablet, 600 mg PO Q12H PRN CONGESTION 02/04/22 11/18/23 History extended release 12 hr (Mucinex) fluticasone propionate 115 2 puff inhalation BID COPD 07/31/22 12/30/23 History mcg-salmeterol 21 mcg/actuation HFA inhaler (Advair HFA) blood sugar diagnostic 11/25/22 Unknown History atorvastatin 80 mg tablet 80 mg PO QHS CHOLESTEROL 11/18/23 12/29/23 History polyethylene glycol 3350 17 17 g PO DAILY PRN Constipation 02/12/24 10/19/24 History gram/dose oral powder (Miralax) metoprolol tartrate 25 mg tablet 25 mg PO BID #120 tabs 03/31/24 10/20/24 Rx levothyroxine 200 mcg tablet 275 mcg PO DAILY THYROID 07/07/24 10/20/24 History omeprazole 20 mg capsule,delayed 20 mg PO DAILY GERD 07/13/24 10/20/24 History release semaglutide 2 mg/dose (8 mg/3 mL) 2 mg subcut QWEEK DIABETES 07/13/24 10/06/24 History subcutaneous pen injector (Ozempic) insulin glargine 100 unit/mL (3 56 unit subcut QPM 09/13/24 Unknown History mL) subcutaneous pen (Lantus Solostar U-100 Insulin) lisinopril 2.5 mg tablet 2.5 mg PO DAILY 10/20/24 Unknown History finasteride 5 mg tablet (Proscar) 5 mg PO QDAY 11/11/24 Unknown History glipizide 5 mg tablet 5 mg PO QDAY 11/11/24 Unknown History melatonin 10 mg tablet 10 mg PO QHS SLEEP 11/11/24 Unknown History sennosides 8.6 mg tablet (Greer-danyel) 17.2 mg PO QDAY 11/11/24 Unknown History trazodone 50 mg tablet 150 mg PO QHS SLEEP 11/11/24 Unknown History bisacodyl 10 mg rectal suppository 10 mg TX ONCE PRN constipation 11/19/24 Unknown History doxycycline hyclate 100 mg capsule 100 mg PO BID 11/19/24 Unknown History furosemide 40 mg tablet 40 mg PO BID EDEMA 11/19/24 Unknown History venlafaxine 37.5 mg tablet 37.5 mg PO BID 11/19/24 Unknown History acetaminophen 325 mg capsule 650 mg PO Q6H PRN pain 11/30/24 Unknown History ammonium lactate 12 % topical cream 1 applic topical BID PRN dry skin 11/30/24 Unknown History magnesium hydroxide 400 mg/5 mL 30 ml PO DAILY PRN constipation 11/30/24 Unknown History oral suspension (Dulcolax (magnesium hydroxide)) mineral oil-hydrophil petrolat 1 applic topical DAILY 11/30/24 Unknown History topical ointment (AmeriPhor topical ointment) ondansetron 4 mg disintegrating 4 mg PO DAILY PRN nausea and 11/30/24 Unknown History tablet vomiting sotalol 120 mg tablet (Betapace) 120 mg PO BID 11/30/24 Unknown History Allergy/AdvReac Type Severity Reaction Status Date / Time No Known Allergies Allergy Verified 11/19/24 11:00 Family History Father Heart disease Hypertension Mother Brain aneurysm Surgical History History of cardiac catheterization Hx of colonoscopy History of coronary artery stent placement (01/18/21) History of thyroidectomy Social History household members: other details: Assisted living housing: assisted living facility current occupational status: disabled Smoking Status: Former smoker how long ago did patient quit smokin years ago alcohol intake: never substance use type: does not use caffeine: Yes Type: carbonated beverages ROS ROS Narrative Admission Review of Systems: CONSTITUTIONAL: No weight loss, fever, chills, +weakness or fatigue. HEENT: Eyes: No visual loss, blurred vision, double vision or yellow sclerae. Ears, Nose, Throat: No hearing loss, sneezing, congestion, runny nose or sore throat. SKIN: No rash or itching, lesions except + worsening bilateral lower extremity venous stasis disease with left lower extremity stasis blister with eventual stasis ulceration with drainage, purulent appearing, odor. CARDIOVASCULAR: No chest pain, chest pressure or chest discomfort, palpitations, edema, orthopnea, syncopal events. RESPIRATORY: + Increased lower extremity swelling, orthopnea, occasional dyspnea. No marked cough, productive sputum, wheezing or hemoptysis. GASTROINTESTINAL: No anorexia, nausea, vomiting or diarrhea, abdominal pain, melena, BRBPR. GENITOURINARY: No dysuria, frequency, urgency or retention. NEUROLOGICAL: No headache, dizziness, syncope, paralysis, ataxia, numbness or tingling in the extremities, focal weakness, change in bowel or bladder control, seizure. MUSCULOSKELETAL: + muscle, back pain, joint pain or stiffness. HEMATOLOGIC: + Chronic anemia, easy bleeding/bruising. LYMPHATICS: No enlarged nodes. No history of splenectomy. PSYCHIATRIC: No history of depression or anxiety. ENDOCRINOLOGIC: No reports of sweating, cold or heat intolerance. No polyuria or polydipsia. ALLERGIES: + History of asthma, allergic rhinitis. Vital Signs Vital Signs Vital Signs: 12/15/24 18:39 12/15/24 20:00 12/15/24 20:05 Temperature 99.1 F 98.5 F Temperature Source Oral Oral Pulse Rate 89 82 Respiratory Rate 20 H 18 Respiratory Effort Respiratory Pattern Blood Pressure 132/70 H 126/58 H Blood Pressure Mean 90 80 Pulse Ox 90 77 90 Oxygen Delivery Method Room Air Room Air Room Air Oxygen Flow Rate (L/min) 12/15/24 20:05 12/15/24 20:07 12/15/24 20:10 Temperature Temperature Source Pulse Rate Respiratory Rate Respiratory Effort Respiratory Pattern Blood Pressure Blood Pressure Mean Pulse Ox 90 87 96 Oxygen Delivery Method Room Air Room Air Nasal Cannula Oxygen Flow Rate (L/min) 2 12/15/24 20:15 12/15/24 20:20 12/15/24 20:26 Temperature Temperature Source Pulse Rate Respiratory Rate Respiratory Effort Normal Non-Labored Respiratory Pattern Normal Blood Pressure Blood Pressure Mean Pulse Ox 97 90 Oxygen Delivery Method Nasal Cannula Room Air Oxygen Flow Rate (L/min) 2 12/15/24 21:00 12/15/24 22:00 12/15/24 22:00 Temperature 98.4 F 98.4 F 98.4 F Temperature Source Oral Oral Pulse Rate 79 79 79 Respiratory Rate 18 18 18 Respiratory Effort Respiratory Pattern Blood Pressure 100/51 L 106/57 L 100/51 L Blood Pressure Mean 67 73 67 Pulse Ox 92 91 91 Oxygen Delivery Method Room Air Room Air Oxygen Flow Rate (L/min) Weight Weight: 334 lb 3.532 oz Body Mass Index (BMI) 45.3 Physical Exam Narrative Physical Examination: General: Awake, alert, oriented x 3 and cooperative, seated upright in ED bed, leaning forward, notes he cannot lay back because of dyspnea, notes some throbbing discomfort to the left lower extremity rating it 4 out of 10. Skin: Normal color, normal turgor, no icterus, no cyanosis except for significant bilateral lower extremity venous stasis skin changes, notable bilateral lichenification, left lower extremity lateral distal stasis wound with purulent discharge with mild odor noted with mild periwound increased erythema beyond the stasis changes. HEENT: AT/NC, EOMI, PERRLA, MMM, difficult to discern carotid bruit and JVD given thickened neck and frances. Lungs: Diminished, greater bases, mildly increased respiratory rate but no distress, despite chest x-ray unable to appreciate any rales, rhonchi or wheezing. Heart: Regular rate and rhythm; no gallop, rub audible. Abdomen: Soft, morbidly obese, distant BS, difficult to discern distention and HSM given habitus. Extremities: No cyanosis, no cyanosis, see skin, chronic significant bilateral lower extremity lymphedema. Neurological: Patient awake, alert, oriented as noted, cognitive function intact; pupils equally reactive to light and accommodation, cranial nerves grossly ormal, moving all 4 extremities, no focal deficits, strength moderately to severely global decreased Psychiatric: Affect appears fatigued, no acute evidence of depressive or anxiety feelings. Results Lab / Micro Data 12/15/24 19:00 12/15/24 19:00 Labs: Laboratory Results - last 24 hr 12/15/24 19:00: WBC 11.5 H, RBC 4.31 L, Hgb 8.6 L, Hct 31.6 L, MCV 73.3 L, MCH 20.0 L, MCHC 27.2 L, RDW Std Deviation 53.4 H, RDW Coeff of Jovany 20.6 H, Plt Count 217, MPV 9.4, Immature Gran % (Auto) 0.300, Neut % (Auto) 78.6 H, Lymph % (Auto) 12.0 L, Mccormick % (Auto) 7.7, Eos % (Auto) 1.1, Baso % (Auto) 0.3, Absolute Neuts (auto) 9.0 H, Absolute Lymphs (auto) 1.38, Nucleated RBC % 0, Differential Comment SCANNED, Platelet Estimate ADEQUATE, Polychromasia 1+, Anisocytosis 1+, Sodium 133, Potassium 4.4, Chloride 92 L, Carbon Dioxide 30.8, Anion Gap 10, BUN 14, Creatinine 0.73, Estim Creat Clear Calc 165.21, Est GFR (MDRD) Non-Af 105, BUN/Creatinine Ratio 19.3, Glucose 116 H, Calcium 8.9, NT pro BNP II 220 12/15/24 20:57: Lactic Acid 2.2 H* Imaging Radiology Impression Chest X-Ray 12/15/24 20:40 IMPRESSION: Findings compatible with CHF/volume overload. Reading Location: [id number] Assessment & Plan Assessment/Plan (1) Wound cellulitis: PLAN: Plan The patient is a 59 y/o M w/ PMHx: Morbid obesity, BPH with obstructive pathology HTN, HLD, Hypothyroidism, IDDM, SHAHANA on CPAP, Chronic microcytic anemia/Fe deficiency anemia, Former tobacco use, Asthma/COPD, CAD s/p PCI who presents to the [facility] ED on 12/15/2024 with history of left lower extremity wounds noted to have worsened over the past week with self application of creams and dressings unclear of exactly what it is but following with podiatry however they become a red and are draining and mildly uncomfortable with no fevers or chills but given persistent worsening appearance prompted ED evaluation. #1. Left lower extremity concern for infected stasis wound with mild lactic acidosis complicated by BL LE venous stasis disease and #2 potentially as noted: Given stasis wounds with significant discharge, mildly foul odor and mild WC elevation with left shift, will admit to PCU given concurrent #2, maintain on IV Vanco and Zosyn pending wound culture and wound MRSA PCR with de-escalation of antibiotic therapy and narrowing as able, will continue to trend CBC, continue affected extremity elevation above heart when seated and in bed, monitor erythema outline with VS checks, low threshold to obtain duplex US to assure no DVT concurrently. Wound care consulted. Will continue diuresis given this presentation but also #2, will place neck adwoa wraps with elevation of patient able to tolerate. #2. Acute Hypoxia, suspected primarily secondary to SHAHANA, Morbid obesity hypoventilation syndrome, but certainly could be component volume overload/HFpEF exacerbation but uncertain (given habitus do not always expect elevated BNP level) complicated by #3: Patient administered IV lasix in the ED, maintain on cardiac telemetry, continue IV lasix diuresis, monitor I/Os, maintain on intake restriction, continue medical therapy but clarifying antiplatelet therapy history and given worsening anemia we will hold off on adding pending anemia evaluation as noted, obtain TSH and magnesium level. Most recent ECHO noted 11/19/2023 from [facility] with LV mildly dilated, moderate concentric LVH, LV systolic function normal, EF 63? percent thus will request repeat. #3. Chronic COPD/asthma with allergic rhinitis: Will maintain on oxygen with wean as tolerated to room air complicated by presentation as noted #1, will temporally hold on inhaler in the interim will maintain on ATC duonebs, PRN albuterol, HOB, IS parameters, continue home montelukast regimen. #4. Chronic microcytic anemia/iron deficiency anemia: Admission hemoglobin 8.6, MCV 73.3, baseline hemoglobin noted previously 11/30/2024 9.4 and prior to this 03/31/2024 hemoglobin 11.7, has trended downward, currently does not appear to be listed on antiplatelet therapy, potentially bleed related, will obtain iron panel, ferritin, guaiac to be cautious and trend CBC. #5. History NSVT: Will continue patient on sotalol and metoprolol regimen, following with EP cardiology per most recent cardiology note 11/19/2024. #6. CAD: Status post previous PCI LAD PTCA/bare-metal stent 2020, will continue patient home metoprolol, lisinopril, statin therapy, clarifying antiplatelet regimen. #7. Diabetes mellitus type II: Hold oral home regimen, continue home insulin regimen, ADA diet, accu checks w/ ISS, HgbA1c requested given #1. #8. Anxiety and depression: Will continue patient home venlafaxine and low-dose trazodone regimen with hold for sedation if necessary. #9. Hypertension: Will continue patient home sotalol, lisinopril IV Lasix as noted. As needed IV hydralazine. #10. Hyperlipidemia: Will continue patient home statin therapy, FLP in AM. #11. Hypothyroidism: Status post previous thyroidectomy, resulting hypothyroidism, will continue patient home levothyroxine regimen. #12. Former tobacco usage: Encourage continued tobacco cessation. #13. Morbid Obesity: Weight loss and lifestyle changes encouraged. #14. SHAHANA: Will continue CPAP nightly. #15. BPH with obstructive pathology: Will continue patient on Flomax and finasteride regimen, monitor for urinary retention. #16. GERD: Will continue patient on PPI. #17. DVT prophylaxis: SCDs, clarifying why patient is not on antiplatelet therapies and given worsening anemia will hold off on chemoprophylaxis, add if workup unremarkable and noted to be clinically appropriate. #18. CODE status: Patient HCPOA and living will are not in place but he notes his daughter would be his medical decision-maker if necessary. Discussed CODE status at length including difference between FULL code, DNR-CCA and DNR-CC status. Following discussions about the differences in these status, requested Full Code status. Advanced Care Planning Face to Face Time: 16 minutes. Charges/Coding Visit Charges Inpatient E&M: 51093 Init Hosp L3 Procedures Hospitalists Procedures: 47796 Advncd Care Plan 30 Min
--- NOTE | 2024-12-15 22:40 | ED.RN ---
This RN obtained the medication reconciliation from the patient, however the patient is a poor historian. The list is completed to the best of the patient's knowledge but potentially inaccurate.
--- OUTSIDE RECORDS SUMMARY | 2024-12-15 23:04 | XMS RPT_ITS | CCD ---
Author Organization [facility] CliniSyvt Care Team Providers Care Coal Hauler Name Role Phone RABIA POE, (AGRICULTURAL SALES REPRESENTATIVE) Attending FRANCHESKA Wilson (AGRICULTURAL SALES REPRESENTATIVE) Referring UnaRABIA Marlow, (AGRICULTURAL SALES REPRESENTATIVE) Referring Unavaila RABIA Pineda, (AGRICULTURAL SALES REPRESENTATIVE) Attending Unavaila FRANCHESKA May (AGRICULTURAL SALES REPRESENTATIVE) Referring UnavaRABIA Rasmussen, (AGRICULTURAL SALES REPRESENTATIVE) Attending Unavaila RABIA Pineda, (AGRICULTURAL SALES REPRESENTATIVE) Attending Unavaila RABIA Pineda, (AGRICULTURAL SALES REPRESENTATIVE) Attending Unavaila LUKAS Whitaker Referring Unavailable Dr. Reinaldo Paez Primary Care Provider 1([facility])[phone] Dr. Reinaldo Paez Referring Provider 1([facility])[phone] [facility] MARINE CHRONOMETER ASSEMBLER, MARINE CHRONOMETER ASSEMBLER-Brittany Beltran Attending Provider 1([facility])[phone] Dr. Antoine Hahn Emergency Provider Dr. Iwona Benton Admit Provider Dr. Iwona Benton Other Provider Dr. Cliff Roman Other Provider Dr. Marcellus Gunn Attending Provider [phone] Cliff Roman Attending Provider Dr. Iwona Benton Attending Provider Dr. Reinaldo Paez Primary Care Provider 1([facility])[phone] Dr. Jeff Weinstein Attending Provider Dr. Iwona Benton Referring Provider Dr. Iwona Benton Attending Provider Dr. Reinaldo Paez Referring Provider Dioni TAYLOR, PA Rupali Hutton Attending Provider Dr. Reinaldo Paez Primary Care Provider Dr. Jeovany Ovalles Attending Provider Dr. Reinaldo Paez Primary Care Provider Dr. Reinaldo Paez Referring Provider Vesna Ley Attending Provider Unavailable Dr. Reinaldo Paez Referring Provider Dr. Javon Graham Attending Provider Dr. Enrico Bustillo Attending Provider Dr. Enrico Bustillo Referring Provider Dr. Enrico Bustillo Other Provider Reinaldo Paez MD Primary Care Provider HONORIO OVALLE Referring Unavailable REINALDO PAEZ Primary Care Unavailable CHIDI LIU Admitting Unavailable CHIDI ARROYO Consulting Unavailable AIXA PAEZ Attending Unavailable EDY BHATIA Referring Unavailable REINALDO PAEZ Primary Care Unavailable Karl MARINE CHRONOMETER ASSEMBLER-C, [facility] Primary Care Provider Karl MARINE CHRONOMETER ASSEMBLER-C, [facility] Referring Provider Akbar PENG-C, Karen Attending Provider Karl PENG-C, [facility] Attending Provider Dr. Mata Pastor DO Attending Provider Dr. Mata Pastor DO Other Provider ELLA BERNAL Attending Unavailable REINALDO PAEZ Referring Unavailable REINALDO PAEZ Primary Care Unavailable Karl MARINE CHRONOMETER ASSEMBLER-C, [facility] Primary Care Provider Karl MARINE CHRONOMETER ASSEMBLER-C, [facility] Referring Provider Akbar PENG-C, Karen Attending Provider Ross PENG-CBrissa Attending Provider [phone] Jovani HODGES, Dr. Schultz Emergency Provider [phone] aKrl MARINE CHRONOMETER ASSEMBLER, [facility] Referring Unavaila naomi Barajas MARINE CHRONOMETER ASSEMBLER, [facility] Primary Care Unavaila ble Ross MARINE CHRONOMETER ASSEMBLER, Brissa Attending Unavailable Karl MARINE CHRONOMETER ASSEMBLER, [facility] Referring Unavaila ble Karl MARINE CHRONOMETER ASSEMBLER, [facility] Primary Care Unavaila ble Ross PENG, Brissa Attending Unavailable Karl MARINE CHRONOMETER ASSEMBLER, [facility] Primary Care Unavaila ble Karl MARINE CHRONOMETER ASSEMBLER, [facility] Referring Unavaila ble Karen Webber Attending Unavailable Corinna, [place] Referring Unavailable Karl MARINE CHRONOMETER ASSEMBLER, [facility] Primary Care Unavaila ble Corinna, Jeff Admitting Unavailable Corinna, Jeff Consulting Unavailable Corinna, [place] Attending Unavailable Karl MARINE CHRONOMETER ASSEMBLER, [facility] Primary Care Unavaila Antoine Nagel Attending Unavailable Karl MARINE CHRONOMETER ASSEMBLER, [facility] Referring Unavaila ble Karl MARINE CHRONOMETER ASSEMBLER, [facility] Primary Care Unavaila ble Karl MARINE CHRONOMETER ASSEMBLER, [facility] Attending Unavaila ble Karl MARINE CHRONOMETER ASSEMBLER, [facility] Referring Unavaila ble Karl MARINE CHRONOMETER ASSEMBLER, [facility] Primary Care Unavaila ble Karen Webber Attending Unavailable Karl MARINE CHRONOMETER ASSEMBLER, [facility] Primary Care Unavaila ble Dilcia Light Attending Unavailable Ross MARINE CHRONOMETER ASSEMBLER, Brissa Referring Unavailable Karl MARINE CHRONOMETER ASSEMBLER, [facility] Referring Unavaila ble Karl MARINE CHRONOMETER ASSEMBLER, [facility] Primary Care Unavaila Karen Clifton Attending Unavailable Karl MARINE CHRONOMETER ASSEMBLER, [facility] Primary Care Unavaila ble Luis A, Marcellus Admitting Unavailable Luis A, Marcellus Consulting Unavailable Ernesto Shultz Attending Unavailable Ernesto Shultz Consulting Unavailable Chandu Pierson Attending Unavailable Chandu Pierson Consulting Unavailable Karl MARINE CHRONOMETER ASSEMBLER, [facility] Referring Unavaila ble Karl MARINE CHRONOMETER ASSEMBLER, [facility] Attending Unavaila ble Karl MARINE CHRONOMETER ASSEMBLER, [facility] Primary Care Unavaila ble Karl MARINE CHRONOMETER ASSEMBLER, [facility] Primary Care Unavaila Karen Clifton Attending Unavailable Karen Webber Referring Unavailable Karl MARINE CHRONOMETER ASSEMBLER, [facility] Primary Care Unavaila ble Ross MARINE CHRONOMETER ASSEMBLER, Brissa Attending Unavailable Ross MARINE CHRONOMETER ASSEMBLER, Brissa Referring Unavailable Corinna, [place] Attending Unavailable Corinna, [place] Referring Unavailable Karl MARINE CHRONOMETER ASSEMBLER, [facility] Primary Care Unavaila ble Corinna, [place] Admitting Unavailable Luis A, Marcellus Attending Unavailable Karl MARINE CHRONOMETER ASSEMBLER, [facility] Referring Unavaila ble Karl MARINE CHRONOMETER ASSEMBLER, [facility] Primary Care Unavaila ble FriendMata Consulting Unavailable Friend Mata Attending Unavailable Karl MARINE CHRONOMETER ASSEMBLER, [facility] Primary Care Unavaila ble Chandu Pierson Attending Unavailable Luis A, Marcellus Admitting Unavailable Luis A, Marcellus Consulting Unavailable Ernesto Shultz Consulting Unavailable Karl MARINE CHRONOMETER ASSEMBLER, [facility] Referring Unavaila ble Karl MARINE CHRONOMETER ASSEMBLER, [facility] Unavaila ble Darby Mata Attending Unavailable Karl MARINE CHRONOMETER ASSEMBLER, [facility] Unavaila naomi Barajas MARINE CHRONOMETER ASSEMBLER, [facility] Referring Unavaila ble Mata Pastor Attending Unavailable Reinaldo Paez Referring Unavailable Karl MARINE CHRONOMETER ASSEMBLER, [facility] Unavaila ble Michael MARINE CHRONOMETER ASSEMBLER, Priscila Attending Unavailable Alex Hart Attending Unavailable Von Gutierrez Referring Unavailable Karl MARINE CHRONOMETER ASSEMBLER, [facility] Unavaila naomi Barajas MARINE CHRONOMETER ASSEMBLER, [facility] Referring Unavaila naomi Barajas MARINE CHRONOMETER ASSEMBLER, [facility] Unavaila ble Karen Webber Attending Unavailable Karl MARINE CHRONOMETER ASSEMBLER, [facility] Referring Unavaila ble Karl MARINE CHRONOMETER ASSEMBLER, [facility] Unavaila ble Ross MARINE CHRONOMETER ASSEMBLER, Brissa Attending Unavailable Jeff Weinstein Referring Unavailable Karl MARINE CHRONOMETER ASSEMBLER, [facility] Unavaila ble Corinna, [place] Attending Unavailable Karl MARINE CHRONOMETER ASSEMBLER, [facility] Unavaila ble Corinna, [place] Attending Unavailable Ross MARINE CHRONOMETER ASSEMBLER, Brissa Referring Unavailable Medications Current Medications Medication Drug Class(es) Dates Sig (Normalized) Sig (Original) acetaminophen 325 mg oral capsule (13 sources) Start: 11-30-2024 take 2 capsules by mouth every six hours as needed for pain Acetaminophen 325 mg capsule Active 650 mg PO EVERY 6 HOURS as needed for pain November 30, 2024 12:00am Start: 02-04-2022 take 1 tablet by roosevelt th every eight hours as needed for pain Acetaminophen (Tylenol Arthritis Pain) 650 mg tablet extended release Active 650 mg PO Q8H as needed for PAIN/FEVER February 04, 2022 12:00am take 2 tablets by mo uth every eight hours as needed acetaminophen (TYLENOL) 325 mg tablet Take 650 mg by mouth every 8 hours as needed for pain or fever (specify temp.). Active [id number] 200 actuat albuterol 0.09 mg/actuat metered dose inhaler (16 sources) beta2-Adrenergic Agonist Start: 02-11-2021 Albut lloyd Sulfate 90 mcg/actuation HFA aerosol inhaler Active 2 NMA INHALATION Q4H as needed for SHORTNESS OF BREATH/WHEEZING February 11, 2021 12:00am Start: 02-11-2021 take 1 puff(s) by in halation every four hours Albuterol Sulfate Active 2 PUFF INHALATION Q4H February 11, 2021 12:00am take 2 puff(s) by in halation every four hours as needed for wheezing albuterol HFA (PROVENTIL HFA, VENTOLIN HFA) 90 mcg/actuation inhaler Inhale 2 Puffs as instructed every 4 hours as needed for wheezing/shortness of breath. Active aluminum hydroxide 80 mg/ml / magnesium hydroxide 80 mg/ml / simethicone 8 mg/ml oral suspension (7 sources) Start: 02-04-2022 take 1 mL by mouth three times daily Alum-Mag Hydroxide-Simeth (Mylanta Maximum Strength) 400-400-40 mg/5 mL suspension Active 30 ML PO THREE TIMES A DAY February 04, 2022 12:00am take 15 mL by mouth every three hours as needed aluminum & magnesium hydroxide-simethico ne (MYLANTA MAXIMUM STRENGTH) 400-400-40 mg/5 mL suspension Take 15 mL by mouth every 3 hours as needed (indigestion). Active bisacodyl 10 mg rectal suppository (3 sources) Stimulant Laxative Start: 11-19-2024 Bisacodyl 1 0 mg suppository Active 10 mg RC ONCE as needed for constipation November 19, 2024 12:00am Blood Sugar Diagnostic kit (4 sources) Start: 11-25-2022 Blood Sugar Di agnostic kit Active 0 .Route November 25, 2022 12:00am As directed Blood-Glucose Meter (FREESTYLE LITE METER) monitoring kit (4 sources) Start: 09-01-2014 Blood-Glucose Meter (FREESTYLE LITE METER) monitoring kit Freestyle LITE Meter Kit - 1 Each 0 09/01/2014 Active Start: 09-01-2014 Blood-Glucose Meter (FREESTYLE LITE METER) monitoring kit Freestyle LITE Meter Kit - 1 Each 0 09/01/2014 Suspended carboxymethylcellulose sodium 10 mg/ml ophthalmic solution (4 sources) carboxymethylcel lulose sodium (ARTIFICIAL TEARS) 1 % drops Use 1 Drop in both eyes as needed (dry eyes). Active doxycycline hyclate 100 mg oral capsule (3 sources) Tetracycline-c lass Drug Start : 11-19 take 1 capsule by mouth twice daily Doxycycline Hyclate 100 mg capsule Active 100 mg PO TWICE A DAY November 19, 2024 12:00am finasteride 5 mg oral tablet (4 sources) 5-alpha Reductase Inhibitor Start : 11-11 take 1 tablet by mouth once daily Finasteride (Proscar) 5 mg tablet Active 5 mg PO daily November 11, 2024 12:00am Start: 11-02-2024 take 1 tablet by roosevelt th once daily finasteride (PROSCAR) 5 mg tablet Indications: Increased frequency of urination Take 1 tablet by mouth once daily. 90 tablet 3 11/02/2024 Active Fish Oil-[place]-3 Fatty Acids (FISH OIL) 340-1,000 mg cap (4 sources) take 2 capsules by m outh once daily Fish Oil-[place]-3 Fatty Acids (FISH OIL) 340-1,000 mg cap Take 2 capsules by mouth once daily. Active take 2 capsules by mouth once da nguyen Fish Oil-[place]-3 Fatty Acids (FISH OIL) 340-1,000 mg cap Take 2 capsules by mouth once daily. 0 Active take 2 capsules by mouth once da nguyen Fish Oil-[place]-3 Fatty Acids (FISH OIL) 340-1,000 mg cap Take 2 capsules by mouth once daily. 0 Suspended Fluticasone Propion-Salmeterol (8 sources) Corticosteroid, beta2-Adrenergic Agonist Start: 07-31-2022 Fluticasone Propion-Salmeterol (Advair Hfa) 115-21 mcg/actuation HFA aerosol inhaler Active 2 NMA INHALATION TWICE A DAY July 31, 2022 1:00am take 2 puff(s) by in halation twice daily fluticasone-salmeterol HFA (ADVAIR HFA) 115-21 mcg/actuation inhaler Inhale 2 Puffs as instructed two times a day. Active 120 actuat formoterol fumarate 0.005 mg/actuat / mometasone furoate 0.1 mg/actuat metered dose inhaler (12 sources) Corticosteroid, beta2-Adrenergic Agonist Start: 01-18-2021 take 1 puff(s) by inhalation once daily Mometasone-Formoterol (Dulera) 100-5 mcg/actuation Hfa Aerosol Inhaler Active 2 PUFF INHALATION DAILY January 18, 2021 12:00am take 2 puff(s) by in halation twice daily mometasone-formoterol (DULERA) 100-5 mcg/actuation inhaler Inhale 2 Puffs as instructed twice daily. Active furosemide 40 mg oral tablet (20 sources) Loop Diuretic Start: 11-19-2024 take 1 tablet by mouth twice daily Furosemide 40 mg tablet Active 40 mg PO TWICE A DAY November 19, 2024 11:02am Start: 07-13-2024 End: 11-19-2024 take 1 tablet by mouth once daily as needed for edema Furosemide 40 mg tablet Discontinued 40 mg PO DAILY NEEDED as needed for EDEMA July 13, 2024 3:11pm November 19, 2024 11:05am Start: 05-10-2024 End: 07-13-2024 take 1 tablet by mouth twice daily as needed for edema Furosemide 40 mg tablet Discontinued 40 mg PO TWICE A DAY as needed for EDEMA May 10, 2024 11:57am July 13, 2024 3:19pm Start: 11-22-2023 End: 05-10-2024 take 1 tablet by mouth once daily as needed for edema Furosemide 40 mg tablet Discontinued 40 mg PO DAILY as needed for EDEMA February 12, 2024 4:06pm May 10, 2024 12:01pm Start: 04-23-2019 End: 02-12-2024 take 1 tablet by mouth twice daily Furosemide 40 MG tablet Discontinued 40 mg PO TWICE A DAY December 30, 2023 12:00am February 12, 2024 4:13pm glipiZIDE 5 mg oral tablet (8 sources) Sulfonylurea Start: 11-11-2024 take 1 tablet by mouth once daily Glipizide 5 mg tablet Active 5 mg PO daily November 11, 2024 12:00am Start: 05-10-2024 End: 09-13-2024 take 1 tablet by mouth once daily Glipizide 5 mg tablet Discontinued 5 mg PO daily May 10, 2024 1:00am September 13, 2024 12:13pm 0.2 ml glucagon 5 mg/ml auto-injector (4 sources) Antihypoglycemic Agent glucagon (GVOKE HYPOPEN 1-PACK) 1 mg/0.2 mL AutoInjector Inject 1 Dose subcutaneously as needed (for unresponsive hypoglycemia). Active 12 hr guaiFENesin 600 mg extended release oral tablet (15 sources) Start: 2021 take 1 tablet by mouth every twelve hours as needed for congestion, then take 1 tablet by mouth every twelve hours as needed for congestion Guaifenesin (Mucinex) 600 mg tablet extended release 12hr Active 600 mg PO Q12H as needed for CONGESTION February 04, 2022 12:00am take 200 mg by mouth once daily at bedtime for cough guaiFENesin (ROBITUSSIN) 100 mg/5 mL syr up Take 200 mg by mouth daily at bedtime. For cough Active guaiFENesin (MUC INEX) 600 mg 12 hr tablet Take 1,200 mg by mouth twice daily as needed (congestion). Active 3 ml insulin glargine 100 unt/ml pen injector (20 sources) Insulin Analog Start: 09-13-2024 Insulin Glargi ne (Lantus Solostar U-100 Insulin) 100 unit/mL (3 mL) insulin pen Active 56 U SC EVERY EVENING September 13, 2024 12:00am Start: 05-10-2024 End: 07-13-2024 Insulin Glargine (Lantus Jenny ostar U-100 Insulin) 100 unit/mL (3 mL) insulin pen Discontinued 54 U SC AT BEDTIME May 10, 2024 11:57am July 13, 2024 3:18pm Start: 02-11-2024 End: 05-10-2024 Insulin Glargine (Lantus Jenny ostar U-100 Insulin) 100 unit/mL (3 mL) insulin pen Discontinued 40 U SC AT BEDTIME February 11, 2024 11:35am May 10, 2024 12:01pm Start: 11-18-2023 End: 02-11-2024 Insulin Glargine (Lantus Jenny ostar U-100 Insulin) 100 unit/mL (3 mL) insulin pen Discontinued 38 U SC AT BEDTIME November 18, 2023 12:00am February 11, 2024 11:37am inject 38 [IU] by canela bcutaneous injection once daily at bedtime insulin glargine (LANTUS U-100 INSULIN) 100 unit/mL injection Inject 38 Units subcutaneously daily at bedtime. Active ammonium lactate 120 mg/ml topical cream (2 sources) Start: 11-30-2024 Ammonium Lacta te 12 % cream Active 1 NMA TOPICAL TWICE A DAY as needed for dry skin November 30, 2024 12:00am Lactobacillus acidophilus (4 sources) Start: 01-10-2022 Lactobacillus Acidophilus (Acidophilus) capsule Active 2000 MMU CELLS PO DAILY January 10, 2022 12:00am levothyroxine sodium 0.075 mg oral tablet (20 sources) l-Thyroxi ne Start: 11-30-2024 take 1 tablet by mouth once daily Levothyroxine (Synthroid) 75 mcg tablet Active 75 ug PO DAILY November 30, 2024 12:00am WITH 200MCG TAB Start: 07-07-2024 Levothyroxine 200 mcg tablet Active 275 ug PO DAILY July 07, 2024 9:15am Start: 07-07-2024 End: 07-07-2024 take 1 tablet by mouth once daily Levothyroxine 200 mcg tablet Discontinued 200 ug PO DAILY July 07, 2024 9:04am July 07, 2024 9:21am Start: 02-12-2024 End: 07-07-2024 Levothyroxine 200 mcg tablet Discontinued 225 ug PO DAILY February 12, 2024 4:05pm July 07, 2024 9:12am Start: 11-22-2023 take 1 tablet by roosevelt th once daily in the morning levothyroxine (SYNTHROID) 25 mcg tablet Take 1 tablet by mouth daily at 6 am. Add to 200 mcg tablets for total 225 mcg 30 tablet 1 11/23/2023 Active Start: 11-18-2023 End: 02-12-2024 take 1 tablet by mouth once daily Levothyroxine 200 mcg tablet Discontinued 200 ug PO DAILY November 18, 2023 12:00am February 12, 2024 4:13pm Start: 07-31-2022 End: 11-18-2023 Levothyroxine 175 mcg tablet Discontinued 200 ug PO DAILY July 31, 2022 1:00am November 18, 2023 11:56am Start: 10-02-2021 End: 02-04-2022 take 1 capsule by mouth once daily Levothyroxine 25 mcg capsule Discontinued 25 ug PO DAILY October 02, 2021 12:00am February 04, 2022 10:50am Start: 02-05-2021 take 225 ug by mouth once lauren y Levothyroxine Active 225 MCG PO DAILY February 05, 2021 10:30am Start: 02-05-2021 End: 07-31-2022 take 1 capsule by mouth once daily Levothyroxine 200 mcg capsule Discontinued 200 ug PO DAILY February 05, 2021 12:00am July 31, 2022 11:00am Start: 04-23-2019 End: 01-18-2021 take 1 tablet by mouth once daily Levothyroxine 100 MCG tablet Discontinued 100 ug PO DAILY April 23, 2019 12:00am January 18, 2021 10:06am Start: 04-11-2017 End: 04-23-2019 take 1 tablet by mouth once daily Levothyroxine 75 MCG tablet Discontinued 75 ug PO DAILY April 11, 2017 12:00am April 23, 2019 12:23pm levothyroxine (S YNTHROID) 25 mcg tablet Take 25 mcg by mouth daily before breakfast. Add to 200 mcg tablet for a total dose of 225 mcg each morning. 0 Suspended lisinopril 2.5 mg oral tablet (20 sources) Angiotensin Converting Enzyme Inhibitor Start: 10-20-2024 take 1 tablet by mouth once daily Lisinopril 2.5 mg tablet Active 2.5 mg PO DAILY October 20, 2024 12:00am Start: 07-13-2024 End: 09-13-2024 take 1 tablet by mouth once daily Lisinopril 2.5 mg tablet Discontinued 2.5 mg PO daily July 13, 2024 1:00am September 13, 2024 12:13pm Start: 05-10-2024 End: 07-07-2024 take 1 tablet by mouth once daily Lisinopril 2.5 mg tablet Discontinued 2.5 mg PO daily May 10, 2024 1:00am July 07, 2024 9:19am Start: 11-18-2023 End: 02-12-2024 take 1 tablet by mouth once daily Lisinopril 2.5 mg tablet Discontinued 2.5 mg PO DAILY November 18, 2023 12:00am February 12, 2024 4:11pm Start: 01-10-2022 End: 11-18-2023 take 2.5 mg by mouth once daily Lisinopril 10 mg table t Discontinued 2.5 mg PO DAILY January 10, 2022 10:02am November 18, 2023 11:56am Start: 01-10-2022 take 5 mg by mouth once daily Lisinopril Active 5 MG PO DAILY January 10, 2022 10:02am Start: 04-11-2017 End: 01-10-2022 take 1 tablet by mouth once daily Lisinopril 10 MG tablet Discontinued 10 mg PO DAILY September 13, 2021 4:58pm January 10, 2022 10:07am Magnesium Hydroxide (2 sources) Start: 11-30-2024 take 1 mL by mouth o nce daily as needed for constipation Magnesium Hydroxide (Dulcolax (Magnesium Hydroxide)) 400 mg/5 mL suspension Active 30 mL PO DAILY as needed for constipation November 30, 2024 12:00am melatonin 10 mg oral tablet (20 sources) Start: 11-11-2024 take 1 tablet by roosevelt th at bedtime Melatonin 10 mg tablet Active 10 mg PO AT BEDTIME November 11, 2024 3:00pm Start: 07-07-2024 End: 11-11-2024 take 9 mg by mouth at bedtime Melatonin 10 mg tablet Discontinued 9 mg PO AT BEDTIME July 13, 2024 3:14pm November 11, 2024 3:03pm Start: 11-22-2023 take 1 tablet by roosevelt th once daily at bedtime melatonin 3 mg tablet Take 1 tablet by mouth daily at bedtime. 30 tablet 11/22/2023 Active Start: 07-31-2022 End: 07-07-2024 take 1 tablet by mouth at bedtime Melatonin 10 mg tablet Discontinued 10 mg PO AT BEDTIME July 31, 2022 1:00am July 07, 2024 9:12am Start: 01-10-2022 End: 07-31-2022 take 1 capsule by mouth at bedtime as needed for sleep Melatonin 3 mg capsule Discontinued 3 mg PO BEDTIME as needed for Sleep January 10, 2022 12:00am July 31, 2022 11:03am metFORMIN hydrochloride 1000 mg oral tablet (20 sources) Biguanide Start: 01-18-2021 take 1 tablet by mouth twice daily Metformin 1,000 mg tablet Active 1000 mg PO TWICE A DAY January 18, 2021 12:00am Start: 04-11-2017 End: 04-23-2019 take 1 tablet by mouth twice daily Metformin 500 MG tablet Discontinued 500 mg PO TWICE A DAY 60 December 14, 2018 12:00am April 23, 2019 12:36pm metoprolol tartrate 25 mg oral tablet (20 sources) beta-Adrenergic Ligia Start: 03-31-2024 take 1 tablet by mouth twice daily Metoprolol Tartrate 25 mg Tablet Active 25 mg PO TWICE A DAY March 31, 2024 12:00am Start: 02-12-2024 End: 03-31-2024 take 4 tablets by mouth twice daily Metoprolol Tartrate 25 mg tablet Discontinued 100 mg PO TWICE A DAY February 12, 2024 4:05pm March 31, 2024 10:31am Start: 12-30-2023 End: 02-12-2024 Metoprolol Tartrate 25 mg ta blet Discontinued 12.5 mg PO TWICE A DAY December 30, 2023 12:00am February 12, 2024 4:13pm Start: 11-22-2023 End: 12-30-2023 take 1 tablet by mouth twice daily Metoprolol Tartrate 100 mg tablet Discontinued 100 mg PO TWICE A DAY December 14, 2023 12:00am December 30, 2023 3:26pm Start: 10-02-2021 End: 12-14-2023 Metoprolol Tartrate 25 mg ta blet Discontinued 12.5 mg PO TWICE A DAY October 02, 2021 12:00am December 14, 2023 7:30pm Start: 10-02-2021 take 25 mg by mouth twice lauren y Metoprolol Tartrate Active 25 MG PO TWICE A DAY October 02, 2021 12:00am Start: 01-18-2021 End: 09-15-2021 take 1 tablet by mouth twice daily Metoprolol Tartrate 25 mg tablet Discontinued 25 mg PO TWICE A DAY January 18, 2021 12:00am September 15, 2021 11:50am Mineral Oil-Hydrophil Petrol at (Ameriphor) ointment (6 sources) Start: 11-30-2024 Mineral Oil-Hy drophil Petrolat (Ameriphor) ointment Active 1 NMA TOPICAL DAILY November 30, 2024 12:00am Start: 12-30-2023 End: 02-12-2024 Mineral Oil-Hydrophil Petrol at (Ameriphor) ointment Discontinued 1 NMA TOPICAL AT BEDTIME December 30, 2023 12:00am February 12, 2024 4:11pm APPLY ONE APPLICATION TOPICALLY TO BILATERAL LOWER EXTREMITIES AT BEDTIME montelukast 10 mg oral tablet (12 sources) Leukotriene Receptor Antagonist Start: 01-10-2022 take 1 tablet by mouth at bedtime Montelukast (Singulair) 10 mg tablet Active 10 mg PO AT BEDTIME January 10, 2022 12:00am [place]-3 Fatty Acids (3 sources) Start: 02-04-2022 take 1000 mg by mouth twice daily [place]-3 Fatty Acids Active 1000 MG PO TWICE A DAY February 04, 2022 12:00am ondansetron 4 mg disintegrating oral tablet (2 sources) Serotonin-3 Receptor Antagonist Start: 11-30-2024 take 1 tablet by mouth once daily as needed for nausea and vomiting Ondansetron 4 mg tablet,disintegrat ing Active 4 mg PO DAILY as needed for nausea and vomiting November 30, 2024 12:00am microencapsulated potassium chloride 20 meq extended release oral tablet (16 sources) Start: 04-23-2019 take 1 tablet by mouth once daily at mealtime Potassium Chloride 20 MEQ tablet Active 20 meq PO DAILY WITH MEALS April 23, 2019 12:00am 1 mg dose 1.5 ml semaglutide 1.34 mg/ml pen injector (4 sources) inject 2 mg by subcutaneous injection every week semaglutide (OZEMPIC) 1 mg/0.75 ml subcutaneous pen injector Inject 2 mg subcutaneously one time a week. Active Semaglutide (Ozempic) 2 mg/dose (8 mg/3 mL) pen injector (8 sources) Start: 07-13-2024 Semaglutide (Ozempic) 2 mg/dose (8 mg/3 mL) pen injector Active 2 mg SC EVERY WEEK July 13, 2024 3:16pm FRIDAY Start: 07-13-2024 Semaglutide (O zempic) 2 mg/dose (8 mg/3 mL) pen injector Active 2 mg SC .friJuly 13, 2024 3:16pm Start: 10-22-2023 End: 07-13-2024 Semaglutide (Ozempic) 2 mg/d ose (8 mg/3 mL) pen injector Discontinued 2 mg SC TH October 22, 2023 12:00am July 13, 2024 3:18pm Sennosides (Greer-Ajith) 8.6 mg tablet (3 sources) Start: 11-11-2024 Sennosides (Greer-Ajith) 8.6 mg tablet Active 17.2 mg PO daily November 11, 2024 12:00am sennosides, prison 8.6 mg oral tablet (1 source) senna (GREER-AJITH) 8.6 mg tab Take 17.2 mg by mouth every evening. Active sotalol hydrochloride 120 mg oral tablet (20 sources) Antiarrhythmic Start: 11-30-2024 take 1 tablet by mouth twice daily Sotalol (Betapace) 120 mg tablet Active 120 mg PO TWICE A DAY November 30, 2024 12:00am Start: 03-31-2024 End: 11-30-2024 Sotalol 80 mg Tablet Discont inued 120 mg PO TWICE A DAY March 31, 2024 12:00am November 30, 2024 1:09pm Start: 02-05-2021 End: 02-12-2024 take 1 tablet by mouth every twelve hours Sotalol 120 mg tablet Discontinued 120 mg PO Q12H February 05, 2021 12:00am February 12, 2024 4:11pm Start: 01-24-2021 take 120 mg by mouth twice daily Sotalol Active 120 MG PO TWICE A DAY February 05, 2021 12:00am tamsulosin hydrochloride 0.4 mg oral capsule (16 sources) alpha-Adrenergic Ligia Start: 02-05-2021 take 1 capsule by mouth at bedtime Tamsulosin 0.4 mg capsule Active 0.4 mg PO AT BEDTIME February 05, 2021 12:00am traZODone hydrochloride 50 mg oral tablet (15 sources) Serotonin Reuptake Inhibitor Start: 11-11-2024 take 3 tablets by mouth at bedtime Trazodone 50 mg tablet Active 150 mg PO AT BEDTIME November 11, 2024 3:01pm Start: 11-05-2023 End: 11-11-2024 Trazodone 50 mg tablet Disco ntinued 25 mg PO AT BEDTIME July 07, 2024 9:16am November 11, 2024 3:03pm take 1 tablet by roosevelt th once daily at bedtime traZODone (DESYREL) 50 mg tablet Take 50 mg by mouth daily at bedtime. Active venlafaxine 37.5 mg oral tablet (4 sources) Serotonin and Norepinephrine Reuptake Inhibitor Start: 11-19-2024 take 1 tablet by mouth twice daily Venlafaxine 37.5 mg tablet Active 37.5 mg PO TWICE A DAY November 19, 2024 12:00am venlafaxine (EFF EXOR) 25 mg tablet Take 25 mg by mouth two times a day. Increase to 37.5 MG by mouth twice daily after 14 days Active Completed/Discontinued Medications Medication Drug Class(es) Dates Sig (Normalized) Sig (Original) acetaminophen 325 mg / oxyCODONE hydrochloride 5 mg oral tablet (12 sources) Opioid Agonist Start: 02-28-2019 End: 03-05-2019 Oxycodone-Acetamino phen 1 TABLET tablet Discontinued 1 {tbl} PO EVERY 6 HOURS NEEDED as needed for Pain 05 25February 28, 2019 March 02, 2019 12:00am March 05, 2019 12:11am Start: 02-28-2019 End: 03-05-2019 take 1 tablet by mouth every six hours as needed Oxycodone-Acetaminophen Discontinued 1 TABLET PO EVERY 6 HOURS NEEDED 12 February 28, 2019 March 05, 2019 12:11am Alum-Mag Hydroxide-Simeth (Mylanta Maximum Strength) 400-400-40 mg/5 mL suspension (4 sources) Start: 02-04-2022 End: 03-29-2024 take 1 mL by mouth three times daily as needed Alum-Mag Hydroxide-Simeth (Mylanta Maximum Strength) 400-400-40 mg/5 mL suspension Discontinued 30 mL PO THREE TIMES A DAY as needed for INDIGESTION February 04, 2022 12:00am March 29, 2024 4:32pm amoxicillin 875 mg / clavulanate 125 mg oral tablet (8 sources) Penicillin-class Antibacterial Start: 01-10-2022 End: 02-04-2022 Amoxicillin-Pot Clavulanate 875-125 mg tablet Discontinued 1 {tbl} PO TWICE A DAY January 10, 2022 12:00am February 04, 2022 10:50am Start: 01-10-2022 End: 02-04-2022 take 1 tablet by mouth twice daily Amoxicillin-Pot Clavulanate Discontinued 1 TABLET PO TWICE A DAY January 10, 2022 12:00am February 04, 2022 10:50am aspirin 81 mg oral tablet (20 sources) Platelet Aggregation Inhibitor, Nonsteroidal Anti-inflammatory Drug Start: 09-13-2024 End: 11-11-2024 take 1 capsule by mouth once daily Aspirin 81 mg capsule Discontinued 81 mg PO DAILY September 13, 2024 12:00am November 11, 2024 3:03pm Start: 01-24-2021 End: 03-29-2024 take 1 tablet by mouth once daily Aspirin 81 mg tablet,delayed release (DR/EC) Discontinued 81 mg PO DAILY February 11, 2024 12:00am March 29, 2024 4:32pm atorvastatin 10 mg oral tablet (20 sources) HMG-CoA Reductase Inhibitor Start: 02-05-2021 End: 11-18-2023 Atorvastatin 10 mg tablet Discontinued 80 mg PO AT BEDTIME February 05, 2021 10:29am November 18, 2023 11:54am Start: 02-05-2021 take 80 mg by mouth at bedtime Atorvastatin Active 80 MG PO AT BEDTIME February 05, 2021 10:29am Start: 01-24-2021 take 1 tablet by roosevelt th at bedtime Atorvastatin 80 mg tablet Active 80 mg PO AT BEDTIME November 18, 2023 12:00am Start: 01-18-2021 End: 02-05-2021 take 1 tablet by mouth at bedtime Atorvastatin 10 mg tablet Discontinued 10 mg PO AT BEDTIME January 18, 2021 12:00am February 05, 2021 10:32am Benzocaine (8 sources) Standardized Chemical Allergen Start: 11-25-2022 End: 11-05-2023 Benzocaine 7.5 % gel Discontinued NMA MUCOUS MEM EVERY 6 HOURS November 25, 2022 12:00am November 05, 2023 8:40am 4 times daily as needed benzocaine 20 % gel Use 1 application as instructed as needed (sore gums). One dental application every 4 hours as needed for sore gums (supervised self-administration) Active ciprofloxacin 500 mg oral tablet (4 sources) Quinolone Antimicrobial Start: 01-01-2024 End: 02-11-2024 take 1 tablet by mouth twice daily Ciprofloxacin Hcl (Cipro) 500 mg tablet Discontinued 500 mg PO TWICE A DAY January 01, 2024 12:00am February 11, 2024 11:35am start on 01/02/24 citalopram 20 mg oral tablet (20 sources) Serotonin Reuptake Inhibitor Start: 02-12-2024 End: 03-29-2024 take 1 tablet by mouth once daily Citalopram 20 mg tablet Discontinued 20 mg PO DAILY February 12, 2024 12:00am March 29, 2024 4:33pm Start: 01-18-2021 End: 05-22-2021 take 1 tablet by mouth once daily Citalopram 20 mg tablet Discontinued 20 mg PO DAILY January 18, 2021 12:00am May 22, 2021 11:34am [place] 3-Exg-Suq-Fish Oil (4 sources) Start: 02-12-2024 End: 03-29-2024 [place] 6-Yix-Hnp-Fish Oil (Fi sh Oil) 300-1,000 mg capsule Discontinued 1 NMA PO DAILY February 12, 2024 12:00am March 29, 2024 4:35pm docusate sodium 50 mg / sennosides, prison 8.6 mg oral tablet (16 sources) Start: 02-05-2021 End: 07-13-2024 Sennosides-Docusate Sodium (Senna Plus) 8.6-50 mg tablet Discontinued 2 {tbl} PO EVERY EVENING February 05, 2021 12:00am July 13, 2024 3:18pm Start: 02-05-2021 take 2 tablets by [facility] at bedtime Sennosides-Docusate Sodium (Senna Plus) 8.6-50 mg tablet Active 2 TAB-CAP PO AT BEDTIME February 05, 2021 12:00am Dulaglutide (20 sources) GLP-1 Receptor Agonist Start: 07-31-2022 End: 10-22-2023 Dulaglutide (Trulicity) 4.5 mg/0.5 mL pen injector Discontinued 4.5 mg SC FR July 31, 2022 1:00am October 22, 2023 8:49am Start: 05-22-2021 Dulaglutide Ac tive 4.5 MG SC EVERY WEEK May 22, 2021 11:33am Start: 05-22-2021 Dulaglutide (T rulicity) 4.5 mg/0.5 mL pen injector Active 4.5 MG SC EVERY WEEK May 22, 2021 11:33am Start: 05-22-2021 End: 07-31-2022 Dulaglutide 4.5 mg/0.5 mL pe n injector Discontinued 4.5 mg SC EVERY WEEK May 22, 2021 1:00am July 31, 2022 11:04am Start: 05-22-2021 Dulaglutide Ac tive 4.5 MG SC EVERY WEEK May 22, 2021 1:00am Start: 01-18-2021 End: 05-22-2021 Dulaglutide (Trulicity) 3 mg /0.5 mL Pen Injector Discontinued 4.5 MG SC FR January 18, 2021 10:04am May 22, 2021 11:33am Start: 01-18-2021 End: 05-22-2021 Dulaglutide (Trulicity) 3 mg /0.5 mL Pen Injector Discontinued 4.5 mg SC FR January 18, 2021 12:00am May 22, 2021 11:33am Start: 01-18-2021 End: 05-22-2021 Dulaglutide (Trulicity) 3 mg /0.5 mL Pen Injector Discontinued 4.5 MG SC FR January 18, 2021 12:00am May 22, 2021 11:33am dulaglutide (TRULICITY) 4.5 mg/0.5 mL pen injector (1 source) Start: 01-24-2021 inject 4.5 mg by subcutaneous injection every week dulaglutide (TRULICITY) 4.5 mg/0.5 mL pen injector Inject 4.5 mg subcutaneously one time a week. 2 mL 1 01/24/2021 Suspended DULoxetine 60 mg delayed release oral capsule (20 sources) Serotonin and Norepinephrine Reuptake Inhibitor Start: 05-22-2021 End: 10-20-2024 take 1 capsule by mouth twice daily Duloxetine 60 mg capsule,delayed release(DR/EC) Discontinued 60 mg PO TWICE A DAY May 22, 2021 11:31am October 20, 2024 7:41am Start: 01-18-2021 End: 05-22-2021 take 1 capsule by mouth once daily Duloxetine 60 mg capsule,delayed release(DR/EC) Discontinued 60 mg PO DAILY January 18, 2021 12:00am May 22, 2021 11:34am hypromellose 17 mg/ml ophthalmic solution (4 sources) Start: 11-25-2022 End: 03-29-2024 Artifi.Tears(Hypromellose)(P f) 1.7 % drops with applicator Discontinued 1 NMA OPHTHALMIC EVERY 6 HOURS as needed for DRY EYES November 25, 2022 12:00am March 29, 2024 4:32pm Insulin Glargine (Lantus U-100 Insulin) 100 unit/mL solution (8 sources) Start: 10-22-2023 End: 11-18-2023 Insulin Glargine (Lantus U-1 00 Insulin) 100 unit/mL solution Discontinued 38 U SC EVERY EVENING October 22, 2023 8:44am November 18, 2023 11:59am Start: 11-25-2022 End: 10-22-2023 Insulin Glargine (Lantus U-1 00 Insulin) 100 unit/mL solution Discontinued 7 U SC EVERY EVENING November 25, 2022 12:00am October 22, 2023 8:53am nystatin 100 unt/mg topical powder (18 sources) Polyene Antifungal Start: 09-13-2024 End: 11-11-2024 Nystatin 100,000 unit/gram powder Discontinued 1 NMA TOPICAL 4 TIMES DAILY NEEDED as needed for SKIN FOLDS September 13, 2024 12:00am November 11, 2024 3:03pm Start: 12-30-2023 End: 03-29-2024 Nystatin 100,000 unit/gram p owder Discontinued 1 NMA TOPICAL THREE TIMES A DAY as needed for REDNESS/RASH December 30, 2023 12:00am March 29, 2024 4:35pm APPLY ONE APPLICATION TOPICALLY TO ABDOMINAL FOLDS THREE TIMES DAILY NEEDED FOR REDNESS/RASH Start: 10-02-2021 End: 02-04-2022 Nystatin 100,000 unit/gram p owder Discontinued 1 NMA TOPICAL DAILY October 02, 2021 12:00am February 04, 2022 10:50am Start: 10-02-2021 End: 02-04-2022 Nystatin Discontinued 1 APPL IC TOPICAL DAILY October 02, 2021 12:00am February 04, 2022 10:50am [place]-3 Fatty Acids 1,000 mg capsule (8 sources) Start: 07-07-2024 End: 07-13-2024 take 1 capsule by mouth twice daily [place]-3 Fatty Acids 1,000 mg capsule Discontinued 1000 mg PO TWICE A DAY July 07, 2024 1:00am July 13, 2024 3:18pm Start: 02-04-2022 End: 01-01-2024 take 1 capsule by mouth twice daily [place]-3 Fatty Acids 1,000 mg capsule Discontinued 2000 mg PO TWICE A DAY February 04, 2022 12:00am January 01, 2024 12:30pm [place]-3 Fatty Acids capsule (4 sources) Start: 09-13-2024 End: 11-11-2024 take 1 capsule by mouth once daily [place]-3 Fatty Acids capsule Discontinued 2000 mg PO DAILY September 13, 2024 12:00am November 11, 2024 3:03pm Start: 09-13-2024 take 1 capsule by mouth once d aily [place]-3 Fatty Acids capsule Active 2000 mg PO DAILY September 13, 2024 12:00am omeprazole 20 mg delayed release oral capsule (16 sources) Proton Pump Inhibitor Start: 10-22-2023 End: 07-13-2024 take 1 capsule by mouth once daily as needed for gastroesophageal reflux disease Omeprazole 20 mg capsule,delayed release(DR/EC) Discontinued 20 mg PO DAILY as needed for GERD February 11, 2024 11:36am July 13, 2024 3:18pm polyethylene glycol 3350 93175 mg powder for oral solution (16 sources) Osmotic Laxative Start: 07-13-2024 End: 07-13-2024 Polyethylene Glycol 3350 (Miralax) 17 gram/dose powder Discontinued 4 g PO ONCE July 13, 2024 1:00am July 13, 2024 4:14pm Take as directed for 2day bowel prep Start: 02-12-2024 End: 09-13-2024 Polyethylene Glycol 3350 (Mi ralax) 17 gram/dose powder Discontinued 17 g PO ONCE July 13, 2024 4:13pm September 13, 2024 12:07pm Take as directed for 2day bowel prep polyethylene glycol 3350 [id number] mg / potassium chloride 2970 mg / sodium bicarbonate 6740 mg / sodium chloride 5860 mg / sodium sulfate 91585 mg powder for oral solution (4 sources) Osmotic Laxative Start: 07-13-2024 End: 09-13-2024 Peg 3350-Electrolytes (Golytely) 236-22.74-6.74 -5.86 gram recon soln Discontinued 240 mL PO Q10M 3999July 13, 2024 1:00am September 13, 2024 12:07pm take as directed for split dose bowel prep until fecal effluent is clear Senna-Docusate Sodium tablet (4 sources) Start: 09-13-2024 End: 11-11-2024 Senna-Docusate Sodium tablet Discontinued 2 {tbl} PO AT BEDTIME September 13, 2024 12:00am November 11, 2024 3:02pm Start: 09-13-2024 Senna-Docusate Sodium tablet Active 2 {tbl} PO AT BEDTIME September 13, 2024 12:00am simvastatin 20 mg oral tablet (20 sources) HMG-CoA Reductase Inhibitor Start: 04-11-2017 End: 12-14-2018 take 1 tablet by mouth at bedtime Simvastatin 20 MG tablet Discontinued 20 mg PO AT BEDTIME May 29, 2017 3:06pm December 14, 2018 10:57am sodium chloride 0.111 meq/ml nasal spray (8 sources) Start: 11-25-2022 End: 03-29-2024 Sodium Chloride ([place] Nasal) 0.65 % aerosol,spray Discontinued 2 NMA INTRANASAL Q4H as needed for DRY NARES November 25, 2022 12:00am March 29, 2024 4:37pm sodium chloride (OCEAN NASAL MIST NASAL) Use 2 Sprays in the nose every 4 hours as needed (For dry nares). Active sodium chloride (OCEAN NASAL MIST NASAL) Use 2 Sprays in the nose every 4 hours as needed (For dry nares). 0 Active sodium chloride (OCEAN NASAL MIST NASAL) Use 2 Sprays in the nose every 4 hours as needed (For dry nares). 0 Suspended ticagrelor 90 mg oral tablet (13 sources) Start: 01-24-2021 End: 02-04-2022 take 1 tablet by mouth twice daily Ticagrelor 90 mg tablet Discontinued 90 mg PO TWICE A DAY February 05, 2021 12:00am February 04, 2022 11:19am Problems Active Problems Problem Classification Problem Date Documented Da te Episodic/Chronic Abdominal pain (14 sources) Left upper quadrant pain; Translations: [Left upper quadrant pain] Onset: 10-29-2024 07-13-2024 Episodic Attention-deficit, conduct, and disruptive behavior disorders (12 sources) Very low level of personal hygiene; Translations: [Very low level of personal hygiene] 07-07-2018 Episodic Cancer of thyroid (4 sources) Papillary thyroid carcinoma; Translations: [Malignant neoplasm of thyroid gland] Onset: 05-11-2015 05-11-2015 Chronic Cancer of thyroid (12 sources) History of malignant neoplasm of thyroid; Translations: [Personal history of malignant neoplasm of thyroid] 07-07-2018 Episodic Cardiac dysrhythmias (20 sources) Ventricular tachycardia; Translations: [Ventricular tachycardia] Onset: 01-20-2021 Resolved: 11-22-2023 Chronic Chronic ulcer of skin (14 sources) Non-pressure chronic ulcer of unspecified part of left lower leg limited to breakdown of skin; Translations: [Non-pressure chronic ulcer of other part of right foot with necrosis of muscle] Onset: 08-20-2018 12-13-2018 Chronic Conditions associated with dizziness or vertigo (16 sources) Dizziness; Translations: [Dizziness and giddiness] Episodic Congestive heart failure; nonhypertensive (4 sources) Chronic heart failure co-occurrent with normal ejection fraction; Translations: [Chronic diastolic (congestive) heart failure] Onset: 01-22-2021 Resolved: 01-16-2024 01-22-2021 Chronic Coronary atherosclerosis and other heart disease (20 sources) Coronary atherosclerosis; Translations: [Atherosclerotic heart disease of [place] coronary artery without angina pectoris] Onset: 06-23-2020 Chronic Coronary atherosclerosis and other heart disease (17 sources) Presence of coronary angioplasty implant and graft; Translations: [Percutaneous transluminal coronary angioplasty status] Onset: 01-18-2021 Episodic Deficiency and other anemia (9 sources) Anemia; Translations: [Anemia, unspecified] 07-13-2024 Episodic Deficiency and other anemia (2 sources) Chronic anemia; Translations: [Anemia, unspecified] 11-30-2024 Episodic Deficiency and other anemia (2 sources) Anemia, unspecified; Translations: [Anemia, unspecified] Onset: 10-29-2024 Episodic Diabetes mellitus with complications (17 sources) Type 2 diabetes mellitus with foot ulcer; Translations: [Skin ulcer due to diabetes mellitus] Onset: 11-02-2012 Resolved: 01-16-2024 01-22-2021 Chronic Diabetes mellitus without complication (12 sources) Diabetes mellitus; Translations: [Type 2 diabetes mellitus without complications] 12-25-2018 Chronic Disorders of lipid metabolism (15 sources) Hyperlipidemia; Translations: [Hyperlipidemia, unspecified] Onset: 01-16-2024 Chronic Essential hypertension (12 sources) Hypertensive disorder; Translations: [Essential (primary) hypertension] Onset: 10-16-2012 Resolved: 01-16-2024 Chronic Genitourinary symptoms and ill-defined conditions (4 sources) Increased frequency of urination; Translations: [Frequency of micturition] Onset: 11-02-2024 11-02-2024 Episodic Immunizations and screening for infectious disease (1 source) Carrier or suspected carrier of Methicillin resistant Staphylococcus aureus; Translations: [Carrier or suspected carrier of methicillin resistant Staphylococcus aureus] Onset: 08-28-2018 Episodic Malaise and fatigue (2 sources) Malaise; Translations: [Other malaise] 11-30-2024 Episodic Mood disorders (14 sources) Depressive disorder; Translations: [Depression] Onset: 01-16-2024 07-07-2018 Chronic Mycoses (12 sources) Onychomycosis due to dermatophyte ; Translations: [Tinea unguium] 12-13-2018 Episodic Nonspecific chest pain (15 sources) Atypical chest pain; Translations: [Other chest pain] Onset: 12-06-2024 01-18-2021 Episodic Other and unspecified benign neoplasm (5 sources) History of polyp of colon; Translations: [History of colonic polyps] 09-17-2022 Episodic Other circulatory disease (4 sources) H/O: heart failure; Translations: [Personal history of other diseases of the circulatory system] 12-22-2023 Episodic Other circulatory disease (4 sources) H/O: heart disorder; Translations: [Personal history of other diseases of the circulatory system] 12-22-2023 Episodic Other connective tissue disease (12 sources) Swelling of lower limb; Translations: [Other specified soft tissue disorders] 07-07-2018 Episodic Other diseases of veins and lymphatics (8 sources) Stasis dermatitis; Translations: [Venous insufficiency (chronic) (peripheral)] Episodic Other diseases of veins and lymphatics (12 sources) Peripheral venous insufficiency; Translations: [Venous insufficiency (chronic) (peripheral)] 12-18-2018 Episodic Other diseases of veins and lymphatics (4 sources) Disorder of vein of lower extremity; Translations: [Venous insufficiency (chronic) (peripheral)] 04-21-2019 Episodic Other endocrine disorders (2 sources) Hypoglycemia; Translations: [Hypoglycemia, unspecified] 11-30-2024 Chronic Other hematologic conditions (4 sources) History of anemia; Translations: [Personal history of diseases of the blood and blood-forming organs and certain disorders involving the immune mechanism] 12-22-2023 Episodic Other injuries and conditions due to external causes (4 sources) Closed injury of head; Translations: [Unspecified injury of head, initial encounter] 11-23-2022 Episodic Other liver diseases (7 sources) Alkaline phosphatase raised; Translations: [Abnormal levels of other serum enzymes] 07-22-2024 Episodic Other liver diseases (1 source) Abnormal levels of other serum enzymes; Translations: [Abnormal levels of other serum enzymes] Onset: 11-11-2024 Episodic Other lower respiratory disease (12 sources) Acute respiratory insufficiency 04-21-2019 Episodic Other lower respiratory disease (20 sources) Dyspnea; Translations: [Dyspnea, unspecified] 01-10-2022 Episodic Other lower respiratory disease (4 sources) Shortness of breath; Translations: [Shortness of breath] Episodic Other lower respiratory disease (4 sources) History of chronic obstructive airway disease; Translations: [Personal history of other diseases of the respiratory system] 12-22-2023 Episodic Other nutritional; endocrine; and metabolic disorders (16 sources) Body mass index 40+ - severely obese; Translations: [Morbid (severe) obesity due to excess calories] Onset: 10-30-2017 Resolved: 01-16-2024 01-22-2021 Chronic Other nutritional; endocrine; and metabolic disorders (8 sources) Morbid obesity; Translations: [Morbid (severe) obesity due to excess calories] 01-10-2022 Chronic Other nutritional; endocrine; and metabolic disorders (4 sources) Morbid (severe) obesity due to excess calories; Translations: [Morbid obesity] Chronic Other nutritional; endocrine; and metabolic disorders (4 sources) Cholesterol level - finding; Translations: [Lipoprotein deficiency] Onset: 10-19-2012 10-19-2012 Chronic Other nutritional; endocrine; and metabolic disorders (5 sources) Loss of appetite; Translations: [Anorexia] 07-13-2024 Episodic Other nutritional; endocrine; and metabolic disorders (6 sources) H/O: diabetes mellitus; Translations: [Personal history of other endocrine, nutritional and metabolic disease] 12-22-2023 Episodic Other screening for suspected conditions (not mental disorders or infectious disease) (20 sources) Patient encounter status; Translations: [Encounter for screening for malignant neoplasm of colon] Onset: 01-24-2021 01-24-2021 Episodic Other skin disorders (12 sources) Macerated skin; Translations: [Other specified disorders of the skin and subcutaneous tissue] 04-22-2019 Episodic Other skin disorders (12 sources) Hypertrophic condition of skin; Translations: [Hypertrophic disorder of the skin, unspecified] 07-07-2018 Episodic Other skin disorders (12 sources) Foot callus; Translations: [Corns and callosities] 07-07-2018 Episodic Other upper respiratory disease (4 sources) Bleeding from nose; Translations: [Epistaxis] 11-23-2022 Episodic Residual codes; unclassified (4 sources) Obstructive sleep apnea syndrome; Translations: [Obstructive sleep apnea (adult) (pediatric)] 11-25-2022 Chronic Residual codes; unclassified (16 sources) Bilateral lower limb edema; Translations: [Localized edema] 07-07-2018 Episodic Residual codes; unclassified (12 sources) Noncompliance with medication regimen; Translations: [Patient's other noncompliance with medication regimen] 04-23-2019 Episodic Residual codes; unclassified (12 sources) Dependent edema; Translations: [Edema, unspecified] 07-07-2018 Episodic Superficial injury; contusion (4 sources) Contusion of face; Translations: [Contusion of other part of head, initial encounter] 11-23-2022 Episodic Thyroid disorders (20 sources) Hypothyroidism; Translations: [Hypothyroidism, unspecified] Onset: 02-05-2015 02-05-2015 Chronic Unclassified (1 source) Wound Care Onset: 08-21-2018 Unclassified (1 source) NSVT (nonsustained ventricular tachycardia) (HCC); Translations: [NSVT (nonsustained ventricular tachycardia) (HCC)] Onset: 11-18-2023 Unclassified (1 source) Ventricular tachycardia, unspecified; Translations: [Ventricular tachycardia, unspecified] Onset: 08-05-2024 Varicose veins of lower extremity (12 sources) Venous stasis ulcer of leg; Translations: [Varicose veins of left lower extremity with both ulcer of unspecified site and inflammation] 04-22-2019 Episodic Past or Other Problems Problem Classification Problem Date Documented Date Episodic/Chronic Cardiac dysrhythmias (17 sources) Bradycardia; Translations: [Bradycardia, unspecified] Onset: 08-05-2024 Episodic Diabetes mellitus without complication (4 sources) Hyperglycemia; Translations: [Hyperglycemia, unspecified] Onset: 10-19-2012 Resolved: 01-17-2016 01-17-2016 Episodic Other aftercare (4 sources) Taking high risk medication; Translations: [Other [facility] (current) drug therapy] Onset: 01-22-2021 01-22-2021 Episodic Other aftercare (2 sources) Long-term current use of drug therapy; Translations: [Encounter for therapeutic drug level monitoring] Onset: 01-24-2021 Resolved: 01-16-2024 01-16-2024 Episodic Other and unspecified benign neoplasm (1 source) Personal history of colonic polyps; Translations: [Personal history of colon polyps] Onset: 07-13-2024 Episodic Other circulatory disease (2 sources) Orthostatic hypotension; Translations: [Orthostatic hypotension] Onset: 01-16-2024 01-16-2024 Episodic Other nutritional; endocrine; and metabolic disorders (1 source) Anorexia; Translations: [Anorexia] Onset: 07-13-2024 Episodic Pneumonia (except that caused by tuberculosis or sexually transmitted disease) (12 sources) Pneumonia (except that caused by tuberculosis or sexually transmitted disease) 04-21-2019 Residual codes; unclassified (2 sources) History of cardiac catheterization; Translations: [Other specified postprocedural states] Onset: 11-21-2023 01-16-2024 Episodic Residual codes; unclassified (4 sources) Past history of procedure; Translations: [Personal history of other medical treatment] Onset: 11-19-2023 01-16-2024 Episodic Skin and subcutaneous tissue infections (20 sources) Cellulitis of lower limb; Translations: [Cellulitis of left lower limb] Onset: 01-04-2024 04-20-2019 Episodic Results Test Name Value Interpretation Reference Range Facility 12 Lead EKGon 11-30-2024 12 Lead EKG [facility] Cardiovascular Services [address] [place] [address] 12 Lead EKG 11/30/24 1251 MR#: [id number] Acct: [id number] Name: DERRELL HOYT Rep #: [id number] : 1965 59 From: Chidi Allred MD Attending Dr: Status: DEP ER Ordering Dr: Antoine Hahn MD Date: 11/30/24 Location: ED Sex: M C Admitted: Test Reason : CHEST PRESSURE Blood Pressure : */* mmHG Vent. Rate : 74 BPM Atrial Rate : 74 BPM P-R Int : 184 ms QRS Dur : 90 ms QT Int : 414 ms P-R-T Axes : 30 23 27 degrees QTcB Int : 459 ms Normal sinus rhythm Normal ECG Confirmed by Chidi Allred ([id number]), technical writer and editor FRANCHESKA FARRAR ([id number]) on 12/02/2024 6:11:18 AM Referred By: Confirmed By: Chidi Alrled 12/02/24610 Date Chidi Allred MD CC: MARINE CHRONOMETER ASSEMBLER-C Radha Barajas; Dr. Antoine Hahn MD Signed Normal [facility] Absolute lymphocyte countOrd ered By: Antoine Hahn on 11-30-2024 Lymphocytes Auto (Unsp spec) [#/Vol] 1.59 10*3/uL 0.83-4.51 [facility] Absolute neutrophil countOrd ered By: Antoine Hahn on 11-30-2024 Neutrophils (Bld) [#/Vol] 10.7 10*3/uL High 2.0-7.7 [facility] Anion gap in Serum or Plasma Ordered By: Antoine Hahn on 11-30-2024 Anion gap [Moles/Vol] 11 mmol/L 5-15 [facility] Automated lymphocyte count a s percentage of total leukocytesOrdered By: Antoine Hahn on 11-30-2024 Lymphocytes/100 WBC Auto (Unsp spec) 11.5 % Low 19-41 [facility] BUN/creatinine ratioOrdered By: Antoine Hahn on 11-30-2024 Urea nitrogen/Creatinine [Mass ratio] 19.2 mg/mg 10-20 [facility] Basic Metabolic Profile (BMP )on 11-30-2024 Glucose [Mass/Vol] 40 mg/dL Invalid Interpretation Code 70-99 [facility] Comment on above: Result Comment: Crit ical Result(s) Called at 1435: by: KEL NGUYEN [facility]. ??Results read back by same. Critical Result(s) Called at: by:??Results read back by same. AMENDED REPORT 11/30/24 1521 GLU previously reported as: 40 *L mg/dL Critical Result(s) Called at 1435: by: KEL MARTINEZ TO [facility]. ??Results read back by same. Performed By: #### L 500.2500, L100.0100 #### [facility] [address] [place], [address] Basophil percentageOrdered B y: Antoine Hahn on 11-30-2024 Basophils/100 WBC (Bld) 0.4 % 0-1 [facility] Bedside Glucoseon 11-30-2024 FINGERSTICK GLU 74 mg/dL Normal 74-106 [facility] Comment on above: Result Comment: MELI GEMENT OF PATIENT CARE PER NURSING PROTOCOL Performed By: #### L 501.080 #### [facility] [address] [place], [address] FINGERSTICK GLU 52 mg/dL Low 74-106 [facility] Comment on above: Result Comment: MELI GEMENT OF PATIENT CARE PER NURSING PROTOCOL Performed By: #### L 501.080 #### [facility] [address] [place], [address] Blood polychromasia detectio n by light microscopyOrdered By: Antoine Hahn on 11-30-2024 Polychromasia LM Ql (Bld) 1+ [facility] CBC W/Diff, Automatedon 11-21-2024 Anisocytosis Ql (Bld) 1+ Normal [facility] Comment on above: Performed By: #### L 100.0100, L500.2500, L501.4021 ####[facility] [address] [place], [address] OVALOCYTE 1+ Normal [facility] Comment on above: Performed By: #### L 100.0100, L500.2500, L501.4021 ####[facility] [address] [place], [address] PLT EST A Normal ADEQ [facility] Comment on above: Performed By: #### L 100.0100, L500.2500, L501.4021 ####[facility] [address] [place], [address] POLYCHROMASIA 1+ Normal [facility] Comment on above: Performed By: #### L 100.0100, L500.2500, L501.4021 ####[facility] [address] [place], [address] Carbon dioxide, total [Moles /volume] in Central venous bloodOrdered By: Antoine Hahn on 11-30-2024 CO2 [Moles/Vol] 32.0 mmol/L 21.0-32.0 [facility] Chest 1 View (Portable)on Chest 1 View (Portable) [facility] Imaging Services [address] [place] [address] Chest 1 View (Portable) MR#: [id number] Acct: [id number] Name: DERRELL HOYT Rep #: [id number] : 1965 M 59 From: Ernesto Cochran PCP: UNRULY Tamez Status: REG ER Study: Chest 1 View (Portable) Date of Exam: 11/30/24 Exam# [id number] Ordering Dr: Antoine Hahn MD PROCEDURE: CHEST 1 VIEW (PORTABLE) 11/30/2024 REASON FOR EXAM: CHEST PAIN TECHNIQUE: Frontal view of the chest. COMPARISON: Chest x-ray of 12/14/2023. RAD/Chest 1 View (Portable) IMPRESSION: Left hemidiaphragm elevation with the adjacent compressive left basilar atelectasis is again seen. No evidence of pulmonary edema. No focal infiltrate is otherwise noted. No pleural effusion or pneumothorax is seen. Prior coronary artery stenting is again seen. The cardiomediastinal silhouette is stable, without evidence of cardiomegaly. Reading Location: [address] CC: MARINE CHRONOMETER ASSEMBLER-C Radha Barajas; Dr. Antoine Hahn MD Coating Mixer: Signed Normal [facility] Chloride assayOrdered By: Rikki Hahn on 11-30-2024 Chloride [Moles/Vol] 93 mmol/L Low 98-108 [facility] D-Dimer Quantitative (DVT/PE )on 11-30-2024 D-DIMER QUANT 0.27 FEU/ug/m Normal 0.27-0.49 [facility] Comment on above: Result Comment: NORM AL D-Dimer level (<0.50) indicates no DVT or PE. Performed By: #### L 300.8000 ####[facility] [address] [facility] [place], [address] Emergency Department Summary on 11-30-2024 Emergency Department Summary [facility] Medical Records Department [address] [place] [address] Emergency Department Summary 11/30/24 MR#: [id number] Acct: [id number] Name: DERRELL HOYT Rep #: [id number] : 1965 59 From: Antoine Hahn MD PCP: UNRULY Tamez Status:REG ER Location: ED ADDENDUM by Dr. Antoine Hahn MD on 11/30/24 at 1625 Prior to discharge I did speak to the patient's nurse practitioner Heather Barajas. She will follow him up as an outpatient. These are consistent with his baseline labs including his anemia. Patient is comfortable with the plan. 11/30/24 1625 Cosigner Signature (if applicable): cc: MARINE CHRONOMETER ASSEMBLER-C Radha Barajas * Signed HPI History of Present Illness Chief Complaint: Chest Other Detail of Chief Complaint: Just not feeling myself Informant: patient Onset/Context/Timing Onset: Days Context: Gradual Onset Timing: Continuous Current Severity: Mild Maximum Severity: Mild Narrative Narrative: 59-year-old male states past medical history including diabetes, anemia, COPD, hypertension. Last stress test was 11/20/2023 he said he had a heart cath last year also. Patient is just has not felt like himself the last several days. Said he had a constant chest discomfort. He had nausea and vomiting yesterday x 1. Denies diarrhea. No melena or hematemesis. No fever. No abdominal pain. No dysuria. Prior similar symptoms: No Recent Illness/Hospitalization: No PFSH PFSH Medical History Redness of skin Thyroid disease Insulin dependent diabetes mellitus Anemia Hepatitis High cholesterol Difficulty swallowing History of diverticulitis Chronic cough History of pain when walking History of stress test History of irregular heartbeat Cellulitis Sleep apnea Lives in assisted living facility Wears glasses Wears dentures Depression Low iron Fatty liver Syncope Dietary restriction CPAP (continuous positive airway pressure) dependence Shortness of breath on exertion History of edema History of echocardiogram Cardiology follow-up encounter Tumor Atherosclerosis of coronary artery of [place] heart without angina pectoris Kidney stones COPD (chronic obstructive pulmonary disease) Former smoker Irregular heart beat NSVT (nonsustained ventricular tachycardia) Diabetes Asthma Hypothyroidism Hypertension Home Medications ???Medication ???Instructions ???Recorded ???Last Taken ???Type potassium chloride 20 mEq 20 meq PO DAILYCM SUPPLEMENT 04/2312/30/23 Rx tablet,extended release(part/cryst) metformin 1,000 mg tablet 1,000 mg PO BID DIABETES 01/18/21 12/30/23 History tamsulosin 0.4 mg capsule 0.4 mg PO QHS PROSTATE 02/05/21 History albuterol sulfate 90 mcg/actuation 2 puff inhalation Q4H PRN Unknown History aerosol inhaler SHORTNESS OF BREATH/WHEEZING montelukast 10 mg tablet 10 mg PO QHS ALLERGIES 01/10/22 History (Singulair) acetaminophen 650 mg 650 mg PO Q8H PRN PAIN/FEVER 02/04 Unknown History tablet,extended release (Tylenol Arthritis Pain) guaifenesin 600 mg tablet, 600 mg PO Q12H PRN CONGESTION 01/2111/18/23 History extended release 12 hr (Mucinex) fluticasone propionate 115 2 puff inhalation BID COPD 3 12/30/23 History mcg-salmeterol 21 mcg/actuation HFA inhaler (Advair HFA) blood sugar diagnostic 11/25/22 Unknown History atorvastatin 80 mg tablet 80 mg PO QHS CHOLESTEROL 11/18/23 12/29/23 History polyethylene glycol 3350 17 17 g PO DAILY PRN Constipation 10/19/24 History gram/dose oral powder (Miralax) metoprolol tartrate 25 mg tablet 25 mg PO BID #120 tabs 03/31/24 Rx levothyroxine 200 mcg tablet 275 mcg PO DAILY THYROID 07/07/24 10/20/24 History omeprazole 20 mg capsule,delayed 20 mg PO DAILY GERD 07/13/2410/20 History release semaglutide 2 mg/dose (8 mg/3 mL) 2 mg subcut QWEEK DIABETES 10/06/24 History subcutaneous pen injector (Ozempic) insulin glargine 100 unit/mL (3 56 unit subcut QPM 09/13/24 Unknow n History mL) subcutaneous pen (Lantus Solostar U-100 Insulin) lisinopril 2.5 mg tablet 2.5 mg PO DAILY 10/20/24 Unknown H istory finasteride 5 mg tablet (Proscar) 5 mg PO QDAY 11/11/24 Unknown His tory glipizide 5 mg tablet 5 mg PO QDAY 11/11/24 Unknown Hist ory melatonin 10 mg tablet 10 mg PO QHS SLEEP 11/11/24 Unknow n History sennosides 8.6 mg tablet (Greer-ajith) 17.2 mg PO QDAY 11/11/24 Unknow n History trazodone 50 mg tablet 150 mg PO QHS SLEEP 11/11/24 Unkno wn History bisacodyl 10 mg rectal suppository 10 mg OK ONCE PRN constipation 0 11/19/24 Unknown History doxycycline hyclate 100 mg capsule 100 mg PO BID 11/19/24 Unknown H istory furosemide 4 (more content not included)... Normal [facility] Eosinophil percentageOrdered By: Antoine Hahn on 11-30-2024 Eosinophils/100 WBC (Bld) 1.5 % 0-5 [facility] Erythrocyte distribution wid th ratioOrdered By: Antoine Hahn on 11-30-2024 Erythrocyte distribution width (RBC) [Ratio] 20.2 % High 11.6-14.6 [facility] Erythrocyte distribution wid th standard deviationOrdered By: Antoine Hahn on 11-30-2024 Erythrocyte distribution width (RBC) [Ratio] 52.0 fl High 35.1-43.9 [facility] Glomerular filtration rate ( GFR) estimation/1.73 sq m using serum, plasma, or whole bOrdered By: Antoine Hahn on 11-30-2024 GFR/1.73 sq M.predicted among non-blacks MDRD (S/P/Bld) [Vol rate/Area] 107 mL/min/{1.73_m2} >60 [facility] Comment on above: mL/min/1.73m2 CKD-EP I Creatinine Equation (2020) [facility] deOrdered By: Antoine Hahn on 11-30-2024 Glucose [Mass/Vol] 74 mg/dL 74-106 [facility] Comment on above: MANAGEMENT OF PATIEN T CARE PER NURSING PROTOCOL Hematocrit Auto (Bld) [Volum e fraction]Ordered By: Antoine Hahn on 11-30-2024 Hematocrit (Bld) [Volume fraction] 34.2 % Low 40-54 [facility] Hemoglobin measurementOrdere d By: Antoine Hahn on 11-30-2024 Hemoglobin (Bld) [Mass/Vol] 9.4 g/dL Low 13.0-16.5 [facility] Immature granulocytes/100 WB C Auto (Bld)Ordered By: Antoine Hahn on 11-30-2024 Immature granulocytes/100 WBC (Bld) 0.400 % 0.0-0.9 [facility] Comment on above: IG% - Immature Granu locytes (promyelocytes, myelocytes and metamyelocytes) > 1% indicates that a LEFT SHIFT is Present. L499.0042on 11-30-2024 Trop T High Sen 20 ng/L Normal <=22 [facility] Comment on above: Performed By: #### L 499.0042 ####[facility] [address] [place], [place], [address] L499.0043on 11-30-2024 Trop T High Sen Normal <=22 [facility] Comment on above: Result Comment: PT D ISCHARGED Performed By: #### L 499.0043 ####[facility] [address] [place], [place], [address] L501.4021on 11-30-2024 Trop T High Sen 22 ng/L Normal <=22 [facility] Comment on above: Performed By: #### L 500.2500, L100.0100 #### [facility] [address] [place], [address] Laboratory - Hematology and Cell countsOrdered By: Antoine Hahn on 11-30-2024 Anisocytosis Ql (Bld) 1+ [facility] MCV (mean corpuscular volume ) determinationOrdered By: Antoine Hahn on 11-30-2024 MCV (RBC) [Entitic vol] 73.4 fL Low 80-94 [facility] Mean corpuscular hemoglobin (MCH) determinationOrdered By: Antoine Hahn on 11-30-2024 MCH (RBC) [Entitic mass] 20.2 pg Low 27.0-32.0 [facility] Mean corpuscular hemoglobin concentration (MCHC) determinationOrdered By: Antoine Hahn on 11-30-2024 MCHC (RBC) [Mass/Vol] 27.5 g/dL Low 32-36 [facility] Mean platelet volume determi nationOrdered By: Antoine Hahn on 11-30-2024 Platelet mean volume (Bld) [Entitic vol] 9.6 fL 6.2-12.0 [facility] Monocyte percentageOrdered B y: Antoine Hahn on 11-30-2024 Monocytes/100 WBC (Bld) 8.8 % 0-10 [facility] Neutrophil percentageOrdered By: Antoine Hahn on 11-30-2024 Neutrophils/100 WBC (Bld) 77.4 % High 47-70 [facility] Nucleated red blood cell per centageOrdered By: Antoine Hahn on 11-30-2024 Nucleated RBC/100 WBC (Bld) [Ratio] 0 % 0-5 [facility] Ovalocyte detectionOrdered B y: Antoine Hahn on 11-30-2024 Ovalocytes LM Ql (Bld) 1+ [facility] Platelet countOrdered By: Rikki Hahn on 11-30-2024 Platelets (Bld) [#/Vol] 257 10*3/uL 150-450 [facility] Platelet estimateOrdered By: Antoine Hahn on 11-30-2024 Platelets LM Ql (Bld) A ADEQ [facility] Potassium measurement (mass/ volume)Ordered By: Antoine Hahn on 11-30-2024 Potassium (Unsp spec) [Mass/Vol] 4.2 mmol/L 3.3-5.1 [facility] RBC Auto (Bld) [#/Vol]Ordere d By: Antoine Hahn on 11-30-2024 RBC (Bld) [#/Vol] 4.66 10*6/uL 4.6-6.2 [facility] Serum creatinine measurement (mass/volume)Ordered By: Antoine Hahn on 11-30-2024 Creatinine [Mass/Vol] 0.68 mg/dL Low 0.70-1.20 [facility] Serum glucose measurement (m ass/volume)Ordered By: Antoine Hahn on 11-30-2024 Glucose [Mass/Vol] 40 mg/dL Low 70-99 [facility] Comment on above: Critical Result(s) C alled at 1435: by: KEL MARTINEZ TO [facility]. Results read back by same. Critical Result(s) Called at: by: Results read back by same.Previous reported result: 40 mg/dLEdited by: MARGO on 11/30/24:1521 AMENDED REPORT 11/30/24 1521 GLU previously reported as: 40 *L mg/dL Critical Result(s) Called at 1435: by: KEL MARTINEZ TO [facility]. Results read back by same. Serum or plasma calcium davidson urement (mass/volume)Ordered By: Antoine Hahn on 11-30-2024 Calcium [Mass/Vol] 9.3 mg/dL 7.6-11.0 [facility] Serum or plasma urea nitroge n measurement (mass/volume)Ordered By: Antoine Hahn on 11-30-2024 Urea nitrogen [Mass/Vol] 13 mg/dL 4-19 [facility] Sodium levelOrdered By: Antoine Hahn on 11-30-2024 Sodium [Moles/Vol] 136 mmol/L 133-145 [facility] Troponin T.cardiac [Mass/vol ume] in Serum or Plasma by High sensitivity methodOrdered By: Antoine Hahn on 11-30-2024 Troponin T.cardiac High sensitivity method [Mass/Vol] 20 ng/L <22 [facility] Troponin T.cardiac High sensitivity method [Mass/Vol] 22 ng/L <22 [facility] White blood cell (WBC) count Ordered By: Antoine Hahn on 11-30-2024 WBC (Bld) [#/Vol] 13.8 10*3/uL High 4.4-11.0 [facility] Cardiology Visit Reporton Cardiology Visit Report [facility] [address] [place] [address] OFFICE VISIT Date of Service: 11/19/24 MR#: [id number] Acct: [id number] Name: DERRELL HOYT Rep #: [id number] : 1965 Provider: UNRULY caal Age/Sex: 59/M [facility] Status: Signed HPI HPI History of Present Illness Details: This is a 59-year-old white male who presents to the office for outpatient cardiovascular follow-up visit. He has a history of CAD status post LAD PTCA/bare-metal stent (01/18/2021), nonsustained ventricular tachycardia status post [facility] electrophysiology evaluation- treated medically, hyperlipidemia, and hypertension. Patient was transferred to [facility] in October of this year for close monitoring of NSVT. He underwent a stress test which was indeterminate,followed by a left cardiac catheteriza tion which demonstrated widely patent stent in LAD and otherwise minimal coronary disease, normal LV function. He was to continue sotalol and metoprolol as directed by EP. He was to follow-up with EP after discharge from hospital. He states he has not followed up with EP due to location/transportation. After reviewing his discharge paperwork, it appears his sotalol, and lisinopril were discontinued. He was directed admitted to initiate sotalol therapy on 03/29/2024. From a cardiac standpoint, the patient is doing well. He denies any palpitations, chest pain, pressure or heaviness. He does have occasional SOB with exertion-this is nothing new or worsening. He denies Orthopnea, and PND. He does not have bleeding issues; no blood in urine, stool, or nosebleeds. He denies any decrease in energy level, myalgias, or claudication. He does acknowledge bilateral lower extremity edema. He does not have sudden weight gain. He denies lightheadedness, dizziness, syncopal or near syncopal episodes, and headaches. Intake Vital Signs 05/10/24 10:40 10/20/24 07:44 11/19/24 06:15 Height 6 ft 6 ft 6 ft Weight: 334 lb BMI 45.3 BP 111/69 Blood Pressure Location Lt brachial Position Sitting Respiration 20 H Pulse 82 Pulse Source Monitor Pulse Oximetry (%) 92 Intake Visit Reasons: 6 M FU Securities Broker Required: No Is patient in pain?: No Allergies No Known Allergies Allergy (Verified 11/19/24 11:00) Medications ???Medication ???Instructions ???Recorded ???Confirmed ???Type potassium chloride 20 mEq 20 meq PO DAILYCM SUPPLEMENT 04/2311/19/24 Rx tablet,extended release(part/cryst) metformin 1,000 mg tablet 1,000 mg PO BID DIABETES 01/18/21 11/19/24 History tamsulosin 0.4 mg capsule 0.4 mg PO QHS PROSTATE 02/05/21 History albuterol sulfate 90 mcg/actuation 2 puff inhalation Q4H PRN 11/19/24 History aerosol inhaler SHORTNESS OF BREATH/WHEEZING montelukast 10 mg tablet 10 mg PO QHS ALLERGIES 01/10/22 History (Singulair) acetaminophen 650 mg 650 mg PO Q8H PRN PAIN/FEVER 02/0411/19/24 History tablet,extended release (Tylenol Arthritis Pain) guaifenesin 600 mg tablet, 600 mg PO Q12H PRN CONGESTION 01/2111/19/24 History extended release 12 hr (Mucinex) fluticasone propionate 115 2 puff inhalation BID COPD 3 11/19/24 History mcg-salmeterol 21 mcg/actuation HFA inhaler (Advair HFA) blood sugar diagnostic 11/25/22 03/29/24 History atorvastatin 80 mg tablet 80 mg PO QHS CHOLESTEROL 11/18/23 11/19/24 History polyethylene glycol 3350 17 17 g PO DAILY PRN Constipation 11/19/24 History gram/dose oral powder (Miralax) metoprolol tartrate 25 mg tablet 25 mg PO BID #120 tabs 03/31/24 Rx sotalol 80 mg tablet 120 mg (1.5 x 80 mg) PO BID #120 1 11/19/24 Rx tabs levothyroxine 200 mcg tablet 275 mcg PO DAILY THYROID 07/07/24 11/19/24 History omeprazole 20 mg capsule,delayed 20 mg PO DAILY GERD 07/13/2411/19 History release semaglutide 2 mg/dose (8 mg/3 mL) 2 mg subcut .wed DIABETES 5 11/19/24 History subcutaneous pen injector (Ozempic) insulin glargine 100 unit/mL (3 56 unit subcut QPM 09/13/24 History mL) subcutaneous pen (Lantus Solostar U-100 Insulin) lisinopril 2.5 mg tablet 2.5 mg PO DAILY 10/20/24 11/19/24 History finasteride 5 mg tablet (Proscar) 5 mg PO QDAY 11/11/24 11/19/24 Hi story glipizide 5 mg tablet 5 mg PO QDAY 11/11/24 11/19/24 His tory melatonin 10 mg tablet 10 mg PO QHS SLEEP 11/11/24 History sennosides 8.6 mg tablet (Greer-ajith) 17.2 mg PO QDAY 11/11/24 History trazodone 50 mg tablet 150 mg PO QHS SLEEP 11/11/2411/19 History bisacodyl 10 mg rectal suppository 10 mg OK ONCE PRN 11/19/2411/19 History doxycycline hyclate 100 mg capsule 100 mg PO BID (more content not included)... Normal [facility] Gastroenterology Visit Repor ton 11-11-2024 Gastroenterology Visit Report [facility]astroenter[facility] [address] [place] [address] OFFICE VISIT Date of Service: 11/11/24 MR#: [id number] Acct: [id number] Name: DERRELL HOYT Rep #: [id number] : 1965 Provider: UNRULY izaguirre Age/Sex: 59/M [place] [facility] [place]: Signed Intake Vital Signs 10/20/24 07:44 11/11/24 15:19 Height 6 ft 6 ft Weight: 336 lb BMI 45.6 BP 115/74 Respiration 18 Pulse 78 Pulse Oximetry (%) 87 Oxygen Delivery Method room air Intake Visit Reasons: Test Result Chief Complaint: follow-up Securities Broker Required: No Accompanied by: Self Is patient in pain?: No Allergies No Known Allergies Allergy (Verified 11/19/24 11:00) Medications ???Medication ???Instructions ???Recorded ???Confirmed ???Type potassium chloride 20 mEq 20 meq PO DAILYCM SUPPLEMENT 04/2311/19/24 Rx tablet,extended release(part/cryst) metformin 1,000 mg tablet 1,000 mg PO BID DIABETES 01/18/21 11/19/24 History tamsulosin 0.4 mg capsule 0.4 mg PO QHS PROSTATE 02/05/21 History albuterol sulfate 90 mcg/actuation 2 puff inhalation Q4H PRN 11/19/24 History aerosol inhaler SHORTNESS OF BREATH/WHEEZING montelukast 10 mg tablet 10 mg PO QHS ALLERGIES 01/10/22 History (Singulair) acetaminophen 650 mg 650 mg PO Q8H PRN PAIN/FEVER 02/0411/19/24 History tablet,extended release (Tylenol Arthritis Pain) guaifenesin 600 mg tablet, 600 mg PO Q12H PRN CONGESTION 01/2111/19/24 History extended release 12 hr (Mucinex) fluticasone propionate 115 2 puff inhalation BID COPD 3 11/19/24 History mcg-salmeterol 21 mcg/actuation HFA inhaler (Advair HFA) blood sugar diagnostic 11/25/22 03/29/24 History atorvastatin 80 mg tablet 80 mg PO QHS CHOLESTEROL 11/18/23 11/19/24 History polyethylene glycol 3350 17 17 g PO DAILY PRN Constipation 11/19/24 History gram/dose oral powder (Miralax) metoprolol tartrate 25 mg tablet 25 mg PO BID #120 tabs 03/31/24 Rx sotalol 80 mg tablet 120 mg (1.5 x 80 mg) PO BID #120 1 11/19/24 Rx tabs levothyroxine 200 mcg tablet 275 mcg PO DAILY THYROID 07/07/24 11/19/24 History omeprazole 20 mg capsule,delayed 20 mg PO DAILY GERD 07/13/2411/19 History release semaglutide 2 mg/dose (8 mg/3 mL) 2 mg subcut .wed DIABETES 5 11/19/24 History subcutaneous pen injector (Ozempic) insulin glargine 100 unit/mL (3 56 unit subcut QPM 09/13/24 History mL) subcutaneous pen (Lantus Solostar U-100 Insulin) lisinopril 2.5 mg tablet 2.5 mg PO DAILY 10/20/24 11/19/24 History finasteride 5 mg tablet (Proscar) 5 mg PO QDAY 11/11/24 11/19/24 Hi story glipizide 5 mg tablet 5 mg PO QDAY 11/11/24 11/19/24 His tory melatonin 10 mg tablet 10 mg PO QHS SLEEP 11/11/24 History sennosides 8.6 mg tablet (Greer-ajith) 17.2 mg PO QDAY 11/11/24 History trazodone 50 mg tablet 150 mg PO QHS SLEEP 11/11/2411/19 History bisacodyl 10 mg rectal suppository 10 mg OK ONCE PRN 11/19/2411/19 History doxycycline hyclate 100 mg capsule 100 mg PO BID 11/19/24 11/19/24 History furosemide 40 mg tablet 40 mg PO BID PRN EDEMA 11/19/24 History venlafaxine 37.5 mg tablet 37.5 mg PO BID 11/19/24 11/19/24 H istory [facility] Medical History Redness of skin Thyroid disease Insulin dependent diabetes mellitus Anemia Hepatitis High cholesterol Difficulty swallowing History of diverticulitis Chronic cough History of pain when walking History of stress test History of irregular heartbeat Cellulitis Sleep apnea Lives in assisted living facility Wears glasses Wears dentures Depression Low iron Fatty liver Syncope Dietary restriction CPAP (continuous positive airway pressure) dependence Shortness of breath on exertion History of edema History of echocardiogram Cardiology follow-up encounter Tumor Atherosclerosis of coronary artery of [place] heart without angina pectoris Kidney stones COPD (chronic obstructive pulmonary disease) Former smoker Irregular heart beat NSVT (nonsustained ventricular tachycardia) Diabetes Asthma Hypothyroidism Hypertension Surgical History History of cardiac catheterization Hx of colonoscopy History of coronary artery stent placement (01/18/21) History of thyroidectomy Family History Unknown Colon polyps Social History household members: other details: Assisted living housing: assisted living facility current occupational status: dis (more content not included)... [facility] CNOVon 11-02-2024 CNOV Office Visit (UROLWS ) -------- DERRELL HOYT ([id number]) 1965 M Date Time Provider Department 11/02/24 8:30 AM ELLA BERNAL UROAVA During your visit today, we recorded the following information about you: Temperature Pulse Respiration Blood pressure 97.7 degrees 80/minute 20/minute 98/62 Weight Height 147 kg 1.854 m Barbara Arroyo LPN 11/02/2024 1:31 PM Signed Verified name and date of . CC Post Void Residual HPI: Derrell Hoyt is a 59 year old male. The patient is here now for an appointment with ANGELA Sesay MT, PA-COV. Procedure: Explained procedure to patient and verbalizes understanding. Performed a PVR. Patient attempted to urinate but was unable to at this time. Results of scan: 0 mL The patient tolerated the procedure well. Plan: Appointment with Elal Clement PA-C 11/02/2024 1:31 PM Signed [facility] PATIENT CLINIC NOTE (M) Note was generated by [employer] and edited as appropriate SERVICE DATE: November 02, 2024 NAME: Derrell Hoyt GENDER: male CHIEF COMPLAINT: for evaluation of decreased urinary stream. HISTORY OF PRESENT ILLNESS: The patient is a 59-year-old male presenting for evaluation of decreased urinary stream. Decreased Urinary Stream: - Decreased urinary stream, unclear duration. - Attributes symptoms to inadequate hydration. - Unable to provide urine sample today. - Denies recent UTIs, dysuria, or urgency. - Reports urinary frequency, including nocturia. - Currently taking Flomax at bedtime, duration unknown. > We discussed the common causes of urinary frequency and urgency, and restricting water intake In hopes to mitigate the need to urinate, we discussed how this behavior more often worsen the problem not improving it, > We discussed increasing daily water intake to 64-84 oz 7a -7p and try to reduce bladder irritants, caffeine, alcohol and acid foods and drink. LABS: PSA Screening (ng/mL) Date Value 09/12/2015 0.18 No results found for: TESTOST Hematocrit (%) Date Value 11/21/2023 37.8 11/20/2023 37.5 11/19/2023 39.5 04/12/2019 44.4 08/20/2018 45.9 07/02/2018 44.5 PSA Screening (ng/mL) Date Value 09/12/2015 0.18 MEDICATIONS: senna (GREER-AJITH) 8.6 mg tab Take 17.2 mg by mouth every evening. glipiZIDE (GLUCOTROL) 5 mg tablet Take 5 mg by mouth once daily. LISINOPRIL ORAL Take 2.5 mg by mouth once daily. venlafaxine (EFFEXOR) 25 mg tablet Take 25 mg by mouth two times a day. Increase to 37.5 MG by mouth twice daily after 14 days sotalol (BETAPACE) 120 mg tablet Take 120 mg by mouth two times a day. atorvastatin (LIPITOR) 80 mg tablet Take 1 tablet by mouth daily at bedtime. levothyroxine (SYNTHROID) 25 mcg tablet Take 1 tablet by mouth daily before breakfast. Add to 200 mcg tablet for a total dose of 225 mcg each morning. metoprolol tartrate, short acting, (LOPRESSOR) 100 mg tablet Take 1 tablet by mouth two times a day. (Patient taking differently: Take 25 mg by mouth two times a day.) melatonin 3 mg tablet Take 1 tablet by mouth daily at bedtime. (Patient taking differently: Take 10 mg by mouth daily at bedtime.) furosemide (LASIX) 40 mg tablet Take 1 tablet by mouth once daily as needed (Lower extremity edema if persisting despite leg elevation and/or COREY hose, or greater than 3 lb weight gain within days). (Patient taking differently: Take 40 mg by mouth two times a day.) potassium chloride ER (KLOR-CON) 20 mEq tablet Take 1 tablet by mouth as directed. Only need to take if taking lasix/furosemide (Patient taking differently: Take 20 mEq by mouth two times a day.) polyethylene glycol 3350 17 gram packet Take 17 g by mouth once daily as needed for constipation. Dissolve dose in 4 - 8 ounces of liquid and take as directed. fluticasone-salmeterol HFA (ADVAIR HFA) 115-21 mcg/actuation inhaler Inhale 2 Puffs as instructed two times a day. montelukast (SINGULAIR) 10 mg tablet Take 10 mg by mouth daily at bedtime. omeprazole (PRILOSEC) 20 mg capsule Take 20 mg by mouth once daily. semaglutide (OZEMPIC) 1 mg/0.75 ml subcutaneous pen injector Inject 2 mg subcutaneously one time a week. (Patient taking differently: Inject 2 mg subcutaneously one time a week. 0.75 mL sub-q every week on Friday) insulin glargine (LANTUS U-100 INSULIN) 100 unit/mL injection Inject 38 Units subcutaneously daily at bedtime. (Patient taking differently: Inject 56 Units subcutaneously daily at bedtime.) traZODone (DESYREL) 50 mg tablet Take 50 mg by mouth daily at bedtime. (Patient taking differently: Take 150 mg by mouth daily at bedtime.) acetaminophen (TYLENOL) 325 mg tablet Take 650 mg by mouth every 8 hours as needed for pain or fever (specify temp.). albuterol HFA (PROVENTIL HFA, VENTOLIN HFA) 90 mcg/actuation inhaler Inhale 2 (more content not included)... Normal [facility] Glucoseon 10-20-2024 FINGERSTICK GLU 79 mg/dL Normal 74-106 [facility] Comment on above: Result Comment: MELI NAVARRETEMARLENE OF PATIENT CARE PER NURSING PROTOCOL Performed By: #### L 500.2500, L100.0100 #### [facility] [address] [place], [address] Seema 10-20-2024 FRANCISCO JAVIER Telephone (UROLWS) -------- DERRELL HOYT ([id number]) 1965 M Date Time Provider Department 10/20/24 ELLA BERNAL During your visit today, we recorded the following information about you: Barbara Arroyo LPN 10/20/2024 9:24 AM Signed Called patient. No answer- left message to call clinic. Patient has appointment in October to see urology for Increased Urination AND Dysuria. No referral in system. Has patient been seen elsewhere for urological issues and if so where? We like to request records for appointment. MER Wellington Kimberly, LPN 10/28/2024 4:08 PM Signed Called [facility] due to CareEverywhere. Spoke with Rupali. Patient discharged with them in 2019. Barbara Arroyo LPN Allergies As of Date: 10/20/2024 (No Known Allergies) Date Reviewed: 11/22/2023 Reviewed by: Nikunj Lizama, RN - Fully Assessed Reason for Visit: Appointment [186] Prescriptions as of 11/03/2024 - senna (GREER-AJITH) 8.6 mg tab Take 17.2 mg by mouth every evening. - glipiZIDE (GLUCOTROL) 5 mg tablet Take 5 mg by mouth once daily. - LISINOPRIL ORAL Take 2.5 mg by mouth once daily. - venlafaxine (EFFEXOR) 25 mg tablet Take 25 mg by mouth two times a day. Increase to 37.5 MG by mouth twice daily after 14 days - sotalol (BETAPACE) 120 mg tablet Take 120 mg by mouth two times a day. - finasteride (PROSCAR) 5 mg tablet Take 1 tablet by mouth [...] instructed two times a day. - Fish Oil-[place]-3 Fatty Acids (FISH OIL) 340-1,000 mg cap [...] mg by mouth two times a day. - guaiFENesin (ROBITUSSIN) 100 mg/5 mL syrup [...] tablet in the afternoon (supervised self-administration) - (more content not included)... Normal [facility] Colonoscopy Reporton 025 Colonoscopy Report [facility] Medical Records Department [address] [place] [address] Colonoscopy Report MR#: [id number] Acct: [id number] Name: DERRELL HOYT Rep #: [id number] : 1965 59 From: Mata Friend DO PCP: UNRULY Tamez Status:REG [facility] Patient Name: Derrell Hoyt Procedure Date: 10/20/2024 10:04 AM Date of : 1965 Age: 59 Procedure: Colonoscopy Indications: Colon polyps of uncertain behavior Providers: Mata Pastor DO Medicines: Monitored Anesthesia Care Patient Profile: This is a 59 year old male. Refer to note in patient chart for documentation of history and physical. Patient has symptoms of chronic epigastric abdominal pain and chronic dyspepsia. This is a 59 year old male. Refer to note in patient chart for documentation of history and physical. Last Colonoscopy: within the past 3 years. Complications: No immediate complications. Procedure: Pre-Anesthesia Assessment: - Prior to the procedure, a History and Physical was performed, and patient medications and allergies were reviewed. The patient is competent. The risks and benefits of the procedure and the sedation options and risks were discussed with the patient. All questions were answered and informed consent was obtained. Patient identification and proposed procedure were verified by the physician in the pre-procedure area. Mental Status Examination: alert and oriented. Airway Examination: normal oropharyngeal airway and neck mobility. Respiratory Examination: clear to auscultation. CV Examination: normal. Prophylactic Antibiotics: The patient does not require prophylactic antibiotics. Prior Anticoagulants: The patient has taken no anticoagulant or antiplatelet agents except for NSAID medication. ASA Grade Assessment: II - A patient with mild systemic disease. After reviewing the risks and benefits, the patient was deemed in satisfactory condition to undergo the procedure. The anesthesia plan was to use monitored anesthesia care (MAC). Immediately prior to administration of medications, the patient was re-assessed for adequacy to receive sedatives. The heart rate, respiratory rate, oxygen saturations, blood pressure, adequacy of pulmonary ventilation, and response to care were monitored throughout the procedure. The physical status of the patient was re-assessed after the procedure. After I obtained informed consent, the scope was passed under direct vision. Throughout the procedure, the patient's blood pressure, pulse, and oxygen saturations were monitored continuously. The Colonoscope was introduced through the anus and advanced to the cecum, identified by appendiceal orifice and ileocecal valve. The colonoscopy was performed without difficulty. The patient tolerated the procedure well. The quality of the bowel preparation was fair. Scope In: 10:07:20 AM Scope Withdrawal Time 0 hours 14 minutes 54 seconds Scope Out: 10:28:04 AM Total Procedure Duration Time 0 hours 20 minutes 44 seconds Findings: The perianal and digital rectal examinations were normal. A 15 mm polyp was found in the ascending colon. The polyp was sessile. The polyp was removed with a hot snare. Resection and retrieval were complete. Verification of patient identification for the specimen was done. Estimated blood loss was minimal. Multiple small-mouthed diverticula were found in the recto-sigmoid colon, sigmoid colon and descending colon. Multiple sessile polyps were found in the entire colon. The polyps were 1 to 2 mm in size. Biopsies were taken with a cold forceps for histology. Verification of patient identification for the specimen was done. Estimated blood loss was minimal. Impression: - Preparation of the colon was fair. - One 15 mm polyp in the ascending colon, removed with a hot snare. Resected and retrieved. - Diverticulosis in the recto-sigmoid colon, in the sigmoid colon and in the descending colon. - Multiple 1 to 2 mm polyps in the entire colon. Biopsied. Recommendation: - Repeat colonoscopy for surveillance. - Continue present medications. Procedure Code(s): --- Professional --- 18500, Colonoscopy, flexible; with removal of tumor(s), polyp(s), or other lesion(s) by snare technique 18120, 59, Colonoscopy, flexible; with biopsy, single or multiple CPT copyright 2021 [employer]. All rights reserved. The codes documented in this report are preliminary and upon dock supervisor review may be revised to meet current compliance requirements. Mata Pastor DO 10/20/2024 10:42:28 AM This report has been signed electronically. Number of Addenda: 0 Note Initiated On: 10/20/2024 10:04 AM 10/20/24 1042 Date Mata Gaytan Signature: Date (more content not included)... Normal [facility] EGD Reporton 10-20-2024 EGD Report [facility] Medical Records Department [address] [place] [address] EGD Report MR#: [id number] Acct: [id number] Name: DERRELL HOYT Rep #: [id number] : 1965 59 From: Mata Pastor DO PCP: Radha Barajas, MARINE CHRONOMETER ASSEMBLER-C Status:REG [facility] Patient Name: Derrell Hoyt Procedure Date: 10/20/2024 9:51 AM Date of : 1965 Age: 59 Procedure: Upper GI endoscopy Indications: Iron deficiency anemia Providers: Mata Pastor DO Medicines: Monitored Anesthesia Care Patient Profile: This is a 59 year old male. Refer to note in patient chart for documentation of history and physical. Patient has symptoms of chronic epigastric abdominal pain and chronic dyspepsia. Complications: No immediate complications. Procedure: Pre-Anesthesia Assessment: - Prior to the procedure, a History and Physical was performed, and patient medications and allergies were reviewed. The patient is competent. The risks and benefits of the procedure and the sedation options and risks were discussed with the patient. All questions were answered and informed consent was obtained. Patient identification and proposed procedure were verified by the physician in the pre-procedure area. Mental Status Examination: alert and oriented. Airway Examination: normal oropharyngeal airway and neck mobility. Respiratory Examination: clear to auscultation. CV Examination: normal. Prophylactic Antibiotics: The patient does not require prophylactic antibiotics. Prior Anticoagulants: The patient has taken no anticoagulant or antiplatelet agents except for NSAID medication. ASA Grade Assessment: II - A patient with mild systemic disease. After reviewing the risks and benefits, the patient was deemed in satisfactory condition to undergo the procedure. The anesthesia plan was to use monitored anesthesia care (MAC). Immediately prior to administration of medications, the patient was re-assessed for adequacy to receive sedatives. The heart rate, respiratory rate, oxygen saturations, blood pressure, adequacy of pulmonary ventilation, and response to care were monitored throughout the procedure. The physical status of the patient was re-assessed after the procedure. After obtaining informed consent, the endoscope was passed under direct vision. Throughout the procedure, the patient's blood pressure, pulse, and oxygen saturations were monitored continuously. The Colonoscope was introduced through the mouth, and advanced to the third part of duodenum. The upper GI endoscopy was accomplished with ease. The patient tolerated the procedure well. Scope In: 9:59:44 AM Scope Out: 10:04:52 AM Total Procedure Duration Time 0 hours 5 minutes 8 seconds Findings: Multiple 3 mm polyps with no bleeding were found 20 to 40 cm from the incisors. Biopsies were taken with a cold forceps for histology. Verification of patient identification for the specimen was done. Estimated blood loss was minimal. Multiple 5 mm hyperplastic polyps with no bleeding and no stigmata of recent bleeding were found in the entire examined stomach. Biopsies were taken with a cold forceps for histology. Verification of patient identification for the specimen was done. Estimated blood loss was minimal. Multiple 5 mm hyperplastic polyps with no bleeding were found in the entire duodenum. Biopsies were taken with a cold forceps for histology. Verification of patient identification for the specimen was done. Estimated blood loss was minimal. Impression: - Esophageal polyp(s) were found. Biopsied. - Multiple gastric polyps. Biopsied. - Multiple duodenal polyps. Biopsied. Recommendation: - Discharge patient to home. - Resume previous diet. - Continue present medications. Procedure Code(s): --- Professional --- 00780, Esophagogastroduodenosco py, flexible, transoral; with biopsy, single or multiple CPT copyright 2021 [employer]. All rights reserved. The codes documented in this report are preliminary and upon dock supervisor review may be revised to meet current compliance requirements. Mata Pastor DO 10/20/2024 10:38:03 AM This report has been signed electronically. Number of Addenda: 0 Note Initiated On: 10/20/2024 9:51 AM 10/20/24 1038 Date Mata Pastor DO Cosigner Signature: Date (if indicated) CC: MARINE CHRONOMETER ASSEMBLERLakia Pastor DO Date Dictated: 10/20/24950 Date Transcribed: Coating Mixer: DEBBY Signed Normal [facility] deOrdered By: Mata Pastor on 10-20-2024 Bedside Glucose ([facility] Panel) 79 mg/dL 74-106 [facility] Comment on above: MANAGEMENT OF PATIEN T CARE PER NURSING PROTOCOL Glucose [Mass/Vol] 79 mg/dL 74-106 [facility] Comment on above: MANAGEMENT OF PATIEN T CARE PER NURSING PROTOCOL Immunohistochemical Stainson 10-20-2024 Immunohistochemical Stains Patient Age/Sex Location Account Attending Physician DERRELL HOYT 59/M EN [id number] Mata Pastor, DO Specimen: [id number] Received: 10/20/24 Status: ARY Calixto Num: [id number] Spec Type: EGD BIOPSY Subm Dr: Mata Pastor, DO HEADER OPERATION: Colonoscopy, EGD and biopsy and polypectomy PRE-OP DIAGNOSIS: Anemia, left upper quadrant pain, personal history of colon polyps, loss of appetite TISSUE SUBMITTED: A- Random esophagus biopsy, B- Gastric fundus biopsy, C- Gastric antrum biopsy, D- Ascending colon polyp, E- Right colon polyp, F- Transverse colon polyp x2, G- Left side of colon biopsy MICROSCOPIC DIAGNOSIS A. Esophagus, random, biopsy: * Benign squamous epithelium with acute and chronic inflammation (See note) Note: A PAS stain is in progress and will be reported as an addendum B. Stomach, gastric fundus, biopsy: * Oxyntic mucosa with mild chronic inflammation * No morphologic evidence of Helicobacter pylori organisms C. Stomach, gastric antrum, biopsy: * Antral mucosa with mild chronic focal active inflammation with reactive changes and intestinal metaplasia * The Helicobacter pylori immunostain is negative D. Ascending colon, polyp, biopsy: * Inflammatory polyp E. Colon, right, polyp, biopsy: * Inflammatory polyp F. Transverse colon, polyp x 2, biopsy: * Colonic mucosa with dilated crypts and lymphoid aggregates G. Colon, left, biopsy: * Focal active cryptitis (See note) Note: Sections show focal active cryptitis with surface inflammation and a mild increase in mixed inflammatory cells within the lamina propria. There is Paneth cell metaplasia identified. There are no granulomas or areas of dysplasia. The findings are not specific and may be seen in infections, medication-induced, NSAIDS and inflammatory bowel disease, among others. Clinical correlation is recommended. Patient Age/Sex Location Account Attending Physician DERRELL HOYT 59/M EN [id number] Mata Pastor DO MICROSCOPIC DESCRIPTION Slides are reviewed. These tests were developed and their performance characteristics determined by [facility]. They may not have been cleared or approved by the U.S. Food and Drug Administration. The FDA has determined that such clearance or approval is not necessary. The above immunohistochemical/dual IDA markers are ordered and reviewed by the Pathologist. GROSS DESCRIPTION A. Received in formalin in a container labeled with the patient's name, date of , and random esophagus biopsies are 2 holley-pink fragments of mucosal tissue each measuring approximately 0.5 x 0.3 x 0.2 cm. Submitted in toto in A1. B. Received in formalin in a container labeled with the patient's name, date of , and gastric fundus biopsy are multiple holley-pink fragments of mucosal tissue measuring 0.8 x 0.5 x 0.3 cm in aggregate. Submitted in toto in B1. C. Received in formalin in a container labeled with the patient's name, date of , and gastric antrum biopsy-H. pylori and path are multiple holley-pink fragments of mucosal tissue measuring 0.9 x 0.6 x 0.3 cm in aggregate. Submitted in toto in C1. D. Received in formalin in a container labeled with the patient's name, date of , and ascending colon polyp are multiple holley-pink fragments of mucosal tissue measuring 1.5 x 0.6 x 0.3 cm in aggregate. Submitted in toto in D1. E. Received in formalin in a container labeled with the patient's name, date of , and right colon polyp are multiple holley-pink fragments of mucosal tissue measuring 1.3 x 0.5 x 0.2 cm in aggregate. Submitted in toto in E1. F. Received in formalin in a container labeled with the patient's name, date of , and transverse colon polyp x 2 are multiple holley-pink fragments of mucosal tissue measuring 1.6 x 0.5 x 0.3 cm in aggregate. Submitted in toto in F1. G. Received in formalin in a container labeled with the patient's name, date of , and left side of colon biopsy are multiple holley-pink fragments of mucosal tissue measuring 1.6 x 0.8 x 0.3 cm in aggregate. ES G1. [facility] 10-20-2024 CPT:01070n1,16551 -- (more content not included)... Normal [facility] Comment on above: Performed By: #### P [facility] ####[facility] [address] [facility] [place], [address] MR/POSTOP.Gurpreet 10-20-2024 MR/POSTOP.[facility] Medical Records Department [address] [place] [address] Anesthesia Postop Eval I 10/20/24 1045 MR#: [id number] Acct: [id number] Name: DERRELL HOYT Rep #: [id number] : 1965 59 From: Diego Tejeda PCP: Radha Barajas, MARINE CHRONOMETER ASSEMBLER-Brittany Status:REG [facility] Y Race: C Location: [place] [address] Anesthesia: Postop Eval I Current Vital Signs Temperature: 98.2 F Pulse Rate: 76 Blood Pressure: 85/42 Respiratory Rate: 16 Pulse Ox: 93 Oxygen Delivery Method: Room Air Assessment Airway patent: Yes Spontaneous unlabored respirations: Yes Mental status: Awake and Calm nausea: No Vomiting: No Anesthesia Complication: No Fluid Hydration Crystalloid volume administer (ml): 400 Total IV fluid infused: 400 Progress Note Anesthesia document: Postop Eval 1 completed: Yes 10/20/24 1046 Date Diego Castellonshaheendhruv Signature: Date CC: Signed Normal [facility] MR/[id number] 10-20-2024 [facility] Medical Records Department [address] [place] [id number] Anesthesia Postop Eval II 10/20/24 1108 MR#: [id number] Acct: [id number] Name: DERRELL HOYT Rep #: [id number] : 1965 59 From: Steve Mckenzie MD PCP: HCRISTIANO TamezC Status:REG [facility] [place] Race: C Location: [place] [address] Anesthesia Postop Eval I Sum Postop Eval Completion status Anesthesia document: Postop Eval 1 completed: Yes Anesthesia Postop Eval I Summary Anesthesia Postop Eval I Summary: Anesthesia Postop Eval I: Assessment Summary Airway patent Yes 10/20/24 10:46 [email or web address] Spontaneous unlabored Yes 10/20/24 10:46 [email or web address] respirations Mental status Awake,Calm 10/20/24 10:46 [email or web address] nausea No 10/20/24 10:46 [email or web address] Vomiting No 10/20/24 10:46 [email or web address] Anesthesia Postop Eval I: Fluid Summary Crystalloid volume administer 400 10/20/24 10:46 [email or web address] (ml) Colloids volume administered ( ml) Blood Product volume administered (ml) Total IV fluid infused 400 10/20/24 10:46 [email or web address] Anesthesia Postop Eval I: Summary Notes Anesthesia Complication No 10/20/24 10:46 [email or web address] Anesthesia Complication Comment: Post-operative progress note Anesthesia: Postop Eval II Evaluation Mental status: Awake Pain Level: 0 nausea: No Vomiting: No 10/20/24 1108 Date Steve Mckenzie MD Cosigner Signature: Date CC: Signed Normal [facility] MR/PATJessicaLGon 10-18-2024 MR/PAT.[facility] Medical Records Department [address] [place] [address] PAT - Anesthesia 10/18/24 1226 MR#: [id number] Acct: [id number] Name: DERRELL HOYT Rep #: [id number] : 1965 59 From: Steve Mckenzie MD PCP: Radha Barajas MARINE CHRONOMETER ASSEMBLER-C Status:PRE [facility] [place]: C Location: [place] Pre-Assessment Diagnosis/Proposed Procedure Planned Operative Procedure(s): COLONOSCOPY, EGD Anesthesia History Anesthesia History - systems program manager: Anesthesia History - systems program manager Hx Hospitalization No 10/18/24 11:26 Any Problems With Anesthesia No 10/18/24 11:26 Cholinesterase deficiency No 10/18/24 11:26 You/Your Family Experience No 10/18/24 11:26 fever (hyperthermia) with Relationship Recent Exposure to Contagious No 11/06/23 06:46 Disease Does patient have nerve No 10/18/24 11:26 stimulator Patient instructed to have device shut off --Does patient have Pacemaker or ICD? When Was Last Pacemaker Check QUESTION #4 FULL TEXT: You/Your Family Experience fever (hyperthermia) with Anesthesia Last Oral Intake Last Oral intake: Last Oral Intake NPO since Meds taken in AM with sips of water? Meds patient instructed to take am of surgery PONV PONV - systems program manager: PONV - systems program manager Female No 10/18/24 11:26 HX of Motion Sickness No 10/18/24 11:26 HX of N/V After Surgery No 10/18/24 11:26 Non-Smoker Yes 10/18/24 11:26 Duration of Surgery greater No 10/18/24 11:26 than 60 minutes Number of Risk Factors 1 10/18/24 11:26 PONV Score Low Risk 10/18/24 11:26 Height Weight Height Weight: Anesthesia: Height Weight Height 6 ft 07/13/24 14:24 Respiratory Assessment Respiratory Assessment - systems program manager: Respiratory Tract Infection Hx - systems program manager Hx Respiratory Tract Infection No 10/18/24 11:26 STOP Sleep Apnea STOP Sleep Apnea - systems program manager: STOP Sleep Apnea - systems program manager Hx Hypertension Yes 10/18/24 11:26 Hx Sleep Apnea Yes: DOESNT WEAR CPAP OR 10/18/24 11:26 BIPAP CPAP No 10/18/24 11:26 BIPAP No 10/18/24 11:26 Do you snore loudly (louder than talking or can be heard Do you often feel tired/ fatigued/ sleepy during daytime? Has anyone observed you stop breathing during sleep? STOP Results Positive 10/18/24 11:26 QUESTION #5 FULL TEXT : Do you snore loudly (louder than talking or can be heard through closed doors)? 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 Specify any problems Hx of Preganancy in last 3 N/A 10/18/24 11:26 Months Nurse Filling Out Transfusion [place] 10/18/24 11:26 Questions: Date: 10/18/24 10/18/24 11:26 Time: 11:33 10/18/24 11:26 Patient unable to answer at this time (ie. confused, unrespo /Reproduction History /Reproductive History - systems program manager: /Reproductive Hx- systems program manager Hx Now No 10/18/24 11:26 Gestational Age (in weeks): EDC: Hx Hx Para Hx Section SAB No 10/18/24 11:26 [facility] Medical History (Updated 10/18/24 @ 11:44 by Cara Woodward) Redness of skin Thyroid disease Insulin dependent diabetes mellitus Anemia Hepatitis High cholesterol Difficulty swallowing History of diverticulitis Chronic cough History of pain when walking History of stress test History of irregular heartbeat Cellulitis Sleep apnea Lives in assisted living facility Wears glasses Wears dentures Depression Low iron Fatty liver Syncope Dietary restriction CPAP (continuous positive airway pressure) dependence Shortness of breath on exertion History of edema History of echocardiogram Cardiology follow-up encounter Tumor Atherosclerosis of coronary artery of [place] heart without angina pectoris Kidney stones COPD (chronic obstructive pulmonary disease) Former smoker Irregular heart beat NSVT (nonsustained ventricular tachycardia) Diabe (more content not included)... Normal [facility] Gastroenterology Visit Repor ton 07-13-2024 Gastroenterology Visit Report [facility] Gastroenterology [address] [place] [address] OFFICE VISIT Date of Service: 07/13/24 MR#: [id number] Acct: [id number] Name: DERRELL HOYT Rep #: [id number] : 1965 Provider: UNRULY izaguirre Age/Sex: 59/M [place] [facility] Status: Signed Intake Vital Signs 05/10/24 10:40 07/13/24 14:24 Height 6 ft 6 ft Weight: 325 lb 334 lb BMI 44.0 45.3 BP 109/64 114/71 Blood Pressure Location Lt brachial Position Sitting Respiration 18 16 Pulse 88 80 Pulse Source Monitor Pulse Oximetry (%) 95 93 Oxygen Delivery Method room air Intake Visit Reasons: Pre-Colon Chief Complaint: need a colonoscopy Securities Broker Required: No Is patient in pain?: No Allergies No Known Allergies Allergy (Verified 07/07/24 08:21) Medications ???Medication ???Instructions ???Recorded ???Confirmed ???Type potassium chloride 20 mEq 20 meq PO DAILYCM SUPPLEMENT 04/23/19 07/13/24 Rx tablet,extended release(part/cryst) metformin 1,000 mg tablet 1,000 mg PO BID DIABETES 01/18/21 07/13/24 History tamsulosin 0.4 mg capsule 0.4 mg PO QHS PROSTATE 02/05/21 07/13/24 History albuterol sulfate 90 mcg/actuation 2 puff inhalation Q4H PRN 02/11/21 07/13/24 History aerosol inhaler SHORTNESS OF BREATH/WHEEZING duloxetine 60 mg capsule,delayed 60 mg PO BID DEPRESSION 05/22/21 07/13/24 History release montelukast 10 mg tablet 10 mg PO QHS ALLERGIES 01/10/22 07/13/24 History (Singulair) acetaminophen 650 mg 650 mg PO Q8H PRN PAIN/FEVER 02/04/22 07/13/24 History tablet,extended release (Tylenol Arthritis Pain) guaifenesin 600 mg tablet, 600 mg PO Q12H PRN CONGESTION 02/04/22 07/13/24 History extended release 12 hr (Mucinex) fluticasone propionate 115 2 puff inhalation BID COPD 07/31/22 07/13/24 History mcg-salmeterol 21 mcg/actuation HFA inhaler (Advair HFA) blood sugar diagnostic 11/25/22 03/29/24 History atorvastatin 80 mg tablet 80 mg PO QHS CHOLESTEROL 11/18/23 07/13/24 History polyethylene glycol 3350 17 17 g PO DAILY Constipation 02/12/24 07/13/24 History gram/dose oral powder (Miralax) metoprolol tartrate 25 mg tablet 25 mg PO BID #120 tabs 03/31/24 07/13/24 Rx sotalol 80 mg tablet 120 mg (1.5 x 80 mg) PO BID #120 03/31/24 07/13/24 Rx tabs glipizide 5 mg tablet 5 mg PO QDAY 05/10/24 07/13/24 History levothyroxine 200 mcg tablet 225 mcg PO DAILY THYROID 07/07/24 07/13/24 History trazodone 50 mg tablet 50 mg PO QHS SLEEP 07/07/24 07/13/24 History furosemide 40 mg tablet 40 mg PO BID EDEMA 07/13/24 History lisinopril 2.5 mg tablet 2.5 mg PO QDAY 07/13/24 07/13/24 History melatonin 10 mg tablet 10 mg PO QHS SLEEP 07/13/24 07/13/24 History omeprazole 20 mg capsule,delayed 20 mg PO DAILY GERD 07/13/24 07/13/24 History release peg 3350-electrolytes 236 240 ml PO Q10M #4,000 mL 07/13/24 07/13/24 Rx gram-22.74 gram-6.74 gram-5.86 gram solution (Golytely) polyethylene glycol 3350 17 17 g PO ONCE colonoscopy #238 grams 07/13/24 07/13/24 Rx gram/dose oral powder (Miralax) semaglutide 2 mg/dose (8 mg/3 mL) 2 mg subcut .wed DIABETES 07/13/24 07/13/24 History subcutaneous pen injector (Ozempic) Nurse's Note: Here for a follow up. When he eats things he has to be careful. Doesn't have much of an appetite. PFSH Medical History Cellulitis Sleep apnea Lives in assisted living facility Wears glasses Wears dentures Depression Low iron Fatty liver Syncope Dietary restriction CPAP (continuous positive airway pressure) dependence Shortness of breath on exertion History of edema History of echocardiogram Cardiology follow-up encounter Tumor Atherosclerosis of coronary artery of [place] heart without angina pectoris Kidney stones COPD (chronic obstructive pulmonary disease) Former smoker Irregular heart beat NSVT (nonsustained ventricular tachycardia) Diabetes Asthma Hypothyroidism Hypertension Surgical History Hx of colonoscopy History of coronary artery stent placement (01/18/21) History of thyroidectomy Family History Unknown Colon polyps Social History household members: other details: Assisted living housing: assisted living facility current occupational status: disabled Smoking Status: Former smoker how long ago did patient quit smokin years ago alcohol intake: never substance use type: does not use caffeine: Yes Type: carbonated beverages HPI HPI Chief Complaint: need a colonoscopy Details: DERRELL HOYT, is a 59 M who presents to the office today for LUQ pain - deep pressure (more content not included)... Normal [facility] 12 [place] [facility] [place] 12 Lead EKG performed by [facility] [address] [place] [address] 12 Lead E[place] [facility] [place] 05/10/24 0806 MR#: [id number] Acct: [id number] Name: DERRELL HOYT Rep #: [id number] : 1965 58 From: Brissa Hawkins NP MARINE CHRONOMETER ASSEMBLER-C Attending Dr: Brissa Hawkins, MARINE CHRONOMETER ASSEMBLER-C Status: DEP A MB Ordering Dr: Brissa Hawkins NP MARINE CHRONOMETER ASSEMBLER-C Date: 05/10/24 [place] [facility] Sex: M C Admitted: BMS/12 Lead EKG performed [place] [facility] [place] Report Interpretation --Sinus Rhythm Low voltage in precordial leads. ABNORMAL Electronically signed on 05/11/2024 at 08:33 by Jeff Weinstein Software Version [id number] 05/11/24836 Date Brissa TOLLIVER CC: MARINE CHRONOMETER ASSEMBLER-Brittany Barajas Date Dictated: 05/10/24805 Date Transcribed: 05/10/24805 Coating Mixer: MARY Signed Normal [facility] Cardiology Visit Reporton Cardiology Visit Report [facility] [address] [place] [address] OFFICE VISIT Date of Service: 05/10/24 MR#: [id number] Acct: [id number] Name: DERRELL HOYT Rep #: [id number] : 1965 Provider: UNRULY caal Age/Sex: 58/M [place] [facility] Status: Signed HPI HPI History of Present Illness Details: This is a 58-year-old white male who presents to the office for outpatient cardiovascular follow-up visit. He has a history of CAD status post LAD PTCA/bare-metal stent (01/18/2021), nonsustained ventricular tachycardia status post [facility] electrophysiology evaluation- treated medically, hyperlipidemia, and hypertension. Patient was transferred to [facility] in October of this year for close monitoring of NSVT. He underwent a stress test which was indeterminate,followed by a left cardiac catheteriza tion which demonstrated widely patent stent in LAD and otherwise minimal coronary disease, normal LV function. He was to continue sotalol and metoprolol as directed by EP. He was to follow-up with EP after discharge from hospital. He states he has not followed up with EP due to location/transportation. After reviewing his discharge paperwork, it appears his sotalol, and lisinopril were discontinued. He was directed admitted to initiate sotalol therapy on 03/29/2024. From a cardiac standpoint, the patient is doing well. He denies any palpitations, chest pain, pressure or heaviness. He does have occasional SOB he is attributing this to possible pneumonia and COPD. He denies Orthopnea, and PND. He does not have bleeding issues; no blood in urine, stool or nosebleeds. He denies any decrease in energy level, myalgias, or claudication. He does have bilateral lower extremity edema, and color changes. He denies sudden weight gain. He denies dizziness, lightheadedness, syncopal or near syncopal episodes, and headaches. Intake Vital Signs 02/11/24 10:31 03/29/24 07:57 05/10/24 10:40 Height 6 ft 6 ft 6 ft Weight: 325 lb BMI 44.0 BP 109/64 Blood Pressure Location Lt brachial Position Sitting Respiration 18 Pulse 88 Pulse Source Monitor Pulse Oximetry (%) 95 Intake Visit Reasons: 3 M FU Securities Broker Required: No Is patient in pain?: No Allergies No Known Allergies Allergy (Verified 05/10/24 10:51) Medications ???Medication ???Instructions ???Recorded ???Confirmed ???Type potassium chloride 20 mEq 20 meq PO DAILYCM SUPPLEMENT 04/23/19 05/10/24 Rx tablet,extended release(part/cryst) metformin 1,000 mg tablet 1,000 mg PO BID DIABETES 01/18/21 05/10/24 History sennosides 8.6 mg-docusate sodium 2 tab PO QPM CONSTIPATION 02/05/21 05/10/24 History 50 mg tablet (Senna Plus) tamsulosin 0.4 mg capsule 0.4 mg PO QHS PROSTATE 02/05/21 05/10/24 History albuterol sulfate 90 mcg/actuation 2 puff inhalation Q4H PRN 02/11/21 05/10/24 History aerosol inhaler SHORTNESS OF BREATH/WHEEZING duloxetine 60 mg capsule,delayed 60 mg PO BID DEPRESSION 05/22/21 05/10/24 History release montelukast 10 mg tablet 10 mg PO QHS ALLERGIES 01/10/22 05/10/24 History (Singulair) acetaminophen 650 mg 650 mg PO Q8H PRN PAIN/FEVER 02/04/22 05/10/24 History tablet,extended release (Tylenol Arthritis Pain) guaifenesin 600 mg tablet, 600 mg PO Q12H PRN CONGESTION 02/04/22 05/10/24 History extended release 12 hr (Mucinex) fluticasone propionate 115 2 puff inhalation BID COPD 07/31/22 05/10/24 History mcg-salmeterol 21 mcg/actuation HFA inhaler (Advair HFA) melatonin 10 mg tablet 10 mg PO QHS SLEEP 07/31/22 05/10/24 History blood sugar diagnostic 11/25/22 03/29/24 History semaglutide 2 mg/dose (8 mg/3 mL) 2 mg subcut TH DIABETES 10/22/23 05/10/24 History subcutaneous pen injector (Ozempic) trazodone 50 mg tablet 25 mg PO QHS SLEEP 11/05/23 05/10/24 History atorvastatin 80 mg tablet 80 mg PO QHS CHOLESTEROL 11/18/23 05/10/24 History omeprazole 20 mg capsule,delayed 20 mg PO DAILY PRN GERD 02/11/24 05/10/24 History release levothyroxine 200 mcg tablet 225 mcg PO DAILY THYROID 02/12/24 05/10/24 History polyethylene glycol 3350 17 17 g PO DAILY Constipation 02/12/24 05/10/24 History gram/dose oral powder (Miralax) metoprolol tartrate 25 mg tablet 25 mg PO BID #120 tabs 03/31/24 05/10/24 Rx sotalol 80 mg tablet 120 mg (1.5 x 80 mg) PO BID #120 03/31/24 05/10/24 Rx tabs furosemide 40 mg tablet 40 mg PO BID PRN EDEMA 05/10/24 05/10/24 History glipizide 5 mg tablet 5 mg PO QDAY 05/10/24 05/10/24 History insulin glargine 100 unit/mL (3 54 unit subcut QHS DIABETES 05/10/24 05/10/24 History mL) subcutaneous pen (Lantus Solostar U-100 Insulin) lisinopril 2.5 mg tablet 2.5 mg PO QDAY 05/10/24 05/10/24 History PFSH Medical History (Reviewed 05/10/24 @ (more content not included)... Normal [facility] 12 Lead EKGon 03-31-2024 12 Lead EKG [facility] Cardiovascular Services [address] [place] [address] 12 Lead EKG 03/31/24 1004 MR#: [id number] Acct: [id number] Name: DERRELL HOYT Rep #: [id number] : 1965 58 From: Jeff Weinstein MD Attending Dr: Dr. Jeff Weinstein MD Status: DIS I N Ordering Dr: Jeff Weinstein MD Date: 03/31/24 Location: [facility] Sex: M C Admitted: 03/29/24 Test Reason : 10AM EKG Blood Pressure : / mmHG Vent. Rate : 084 BPM Atrial Rate : 084 BPM P-R Int : 174 ms QRS Dur : 084 ms QT Int : 382 ms P-R-T Axes : 031 -05 058 degrees QTc Int : 451 ms Sinus rhythm with occasional and consecutive Premature ventricular complexes Low voltage QRS Abnormal ECG When compared with ECG of 31-MAR-2024 01:12, Premature ventricular complexes are now Present Confirmed by CORINNA HODGES, JEFF ([id number]), technical writer and editor FRANCHESKA FARRAR ([id number]) on 04/01/2024 1:02:08 PM Referred By: Jeff Weinstein Confirmed By:JEFF WEINSTEIN MD 04/01/24 1302 Date Jeff Weinstein MD CC: UNRULY Barajas; Dr. Jeff Weinstein MD Signed [facility] 12 Lead EKG [facility] Cardiovascular Services [address] [place] [address] 12 Lead EKG 03/31/24 0112 MR#: [id number] Acct: [id number] Name: DERRELL HOYT Rep #: [id number] : 1965 58 From: Jeff Weinstein MD Attending Dr: Dr. Jeff Weinstein MD Status: ADM I N Ordering Dr: Jeff Weinstein MD Date: 03/31/24 Location: [facility] Sex: M C Admitted: 03/29/24 Test Reason : post medication Blood Pressure : / mmHG Vent. Rate : 074 BPM Atrial Rate : 074 BPM P-R Int : 190 ms QRS Dur : 094 ms QT Int : 402 ms P-R-T Axes : 043 003 036 degrees QTc Int : 446 ms Normal sinus rhythm Cannot rule out Inferior infarct , age undetermined Abnormal ECG When compared with ECG of 30-MAR-2024 12:24, MANUAL COMPARISON REQUIRED, DATA IS UNCONFIRMED Confirmed by JEFF WEINSTEIN MD ([id number]), technical writer and editor FRANCHESKA FARRAR ([id number]) on 03/31/2024 9:40:25 AM Referred By: Jeff Weinstein Confirmed By:JEFF WEINSTEIN MD 03/31/2440 Date Jeff Weinstein MD CC: UNRULY Barajas; Dr. Jeff Weinstein MD Signed [facility] Basic Metabolic Profile (BMP )on 03-31-2024 BUN/CRE 19.0 RATIO Normal 04-11 [facility] Comment on above: Performed By: #### L 500.2500, L100.0100 #### [facility] [address] [place], [address] CA,Total 9.3 mg/dL Normal 8.5-10.1 [facility] Comment on above: Performed By: #### L 500.2500, L100.0100 #### [facility] [address] [place], [address] Chloride [Moles/Vol] 100 mmol/L Normal 98-107 [facility] Comment on above: Performed By: #### L 500.2500, L100.0100 #### [facility] [address] [place], [address] CO2 [Moles/Vol] 31.0 mmol/L Normal 21.0-32.0 [facility] Comment on above: Performed By: #### L 500.2500, L100.0100 #### [facility] [address] [place], [address] Creatinine [Mass/Vol] 0.74 mg/dL Normal 0.70-1.30 [facility] Comment on above: Result Comment: The validity of the calculated GFR GFRAA in patients over 70 years has not been determined. Clinical correlation is essential. Performed By: #### L 500.2500, L100.0100 #### [facility] [address] [place], [address] ECRCL 163.20 ml/min Normal [facility] Comment on above: Performed By: #### L 500.2500, L100.0100 #### [facility] [address] [place], [address] EST GFR - AA 140 mL/min Normal >60 [facility] Comment on above: Result Comment: Afri can Maltese GFR Calc Performed By: #### L 500.2500, L100.0100 #### [facility] [address] [place], [address] GAP 6 Normal 5-15 [facility] Comment on above: Performed By: #### L 500.2500, L100.0100 #### [facility] [address] [place], [address] GFR/1.73 sq M.predicted among non-blacks MDRD (S/P/Bld) [Vol rate/Area] 116 mL/min/{1.73_m2} Normal >60 [facility] Comment on above: Result Comment: Non- GFR Calc Performed By: #### L 500.2500, L100.0100 #### [facility] [address] [place], [address] Glucose [Mass/Vol] 118 mg/dL High 74-106 [facility] Comment on above: Result Comment: Fast ing Glucose result from 100 to 125 mg/dL suggests IMPAIRED HOMEOSTASIS per A.D.A. criteria. Performed By: #### L 500.2500, L100.0100 #### [facility] [address] [place], [address] Potassium [Moles/Vol] 4.6 mmol/L Normal 3.5-5.1 [facility] Comment on above: Performed By: #### L 500.2500, L100.0100 #### [facility] [address] [place], [address] Sodium [Moles/Vol] 137 mmol/L Normal 136-145 [facility] Comment on above: Performed By: #### L 500.2500, L100.0100 #### [facility] [address] [place], [address] Urea nitrogen [Mass/Vol] 14 mg/dL Normal 7-18 [facility] Comment on above: Performed By: #### L 500.2500, L100.0100 #### [facility] [address] [place], [address] Bedside Glucoseon 03-31-2024 FINGERSTICK GLU 124 mg/dL High 74-106 [facility] Comment on above: Result Comment: MELI [place] OF PATIENT CARE PER NURSING PROTOCOL Performed By: #### L 500.2500, L100.0100 #### [facility] [address] [place], [address] CBC W/Diff, Automatedon 10-0 9-2023 Absolute Lymph 2.00 X10 3/uL Normal 0.83-4.51 [facility] Comment on above: Performed By: #### L 500.2500, L100.0100 #### [facility] [address] [place], [address] Absolute Neut 7.4 X10 3/uL Normal 2.0-7.7 [facility] Comment on above: Result Comment: NO S PEC RECEIVED REORDER IF INDICATED Performed By: #### L 500.2500, L100.0100 #### [facility] [address] [place], [address] Basophils/100 WBC (Bld) 0.5 % Normal 0-1 [facility] Comment on above: Performed By: #### L 500.2500, L100.0100 #### [facility] [address] [place], [address] Eosinophils/100 WBC (Bld) 4.9 % Normal 0-5 [facility] Comment on above: Performed By: #### L 500.2500, L100.0100 #### [facility] [address] [place], [address] Erythrocyte distribution width (RBC) [Ratio] 16.4 % High 11.6-14.6 [facility] Comment on above: Result Comment: NO S PEC RECEIVED REORDER IF INDICATED Performed By: #### L 500.2500, L100.0100 #### [facility] [address] [place], [address] Hematocrit (Bld) [Volume fraction] 39.6 % Low 40-54 [facility] Comment on above: Result Comment: NO S PEC RECEIVED REORDER IF INDICATED Performed By: #### L 500.2500, L100.0100 #### [facility] [address] [place], [address] Hemoglobin (Bld) [Mass/Vol] 11.7 g/dL Low 13.0-16.5 [facility] Comment on above: Result Comment: NO S PEC RECEIVED REORDER IF INDICATED Performed By: #### L 500.2500, L100.0100 #### [facility] [address] [place], [address] IG% 0.500 Normal 0.0-0.9 [facility] Comment on above: Result Comment: IG% - Immature Granulocytes (promyelocytes, myelocytes and metamyelocytes) > 1% indicates that a LEFT SHIFT is Present. Performed By: #### L 500.2500, L100.0100 #### [facility] [address] [place], [address] Lymphocytes/100 WBC (Bld) 18.3 % Low 19-41 [facility] Comment on above: Performed By: #### L 500.2500, L100.0100 #### [facility] [address] [place], [address] MCH (RBC) [Entitic mass] 25.7 pg Low 27.0-32.0 [facility] Comment on above: Result Comment: NO S PEC RECEIVED REORDER IF INDICATED Performed By: #### L 500.2500, L100.0100 #### [facility] [address] [place], [address] MCHC (RBC) [Mass/Vol] 29.5 g/dL Low 32-36 [facility] Comment on above: Result Comment: NO S PEC RECEIVED REORDER IF INDICATED Performed By: #### L 500.2500, L100.0100 #### [facility] [address] [place], [address] MCV (RBC) [Entitic vol] 86.8 fL Normal 80-94 [facility] Comment on above: Result Comment: NO S PEC RECEIVED REORDER IF INDICATED Performed By: #### L 500.2500, L100.0100 #### [facility] [address] [place], [address] Monocytes/100 WBC (Bld) 8.1 % Normal 0-10 [facility] Comment on above: Performed By: #### L 500.2500, L100.0100 #### [facility] [address] [place], [address] Neutrophils/100 WBC (Bld) 67.7 % Normal 47-70 [facility] Comment on above: Result Comment: NO S PEC RECEIVED REORDER IF INDICATED Performed By: #### L 500.2500, L100.0100 #### [facility] [address] [place], [address] Nucleated RBC (Bld) [#/Vol] 0 10*3/uL Normal 0-5 [facility] Comment on above: Performed By: #### L 500.2500, L100.0100 #### [facility] [address] [place], [address] Platelet mean volume (Bld) [Entitic vol] 10.1 fL Normal 6.2-12.0 [facility] Comment on above: Performed By: #### L 500.2500, L100.0100 #### [facility] [address] [place], [address] Platelets (Bld) [#/Vol] 157 10*3/uL Normal 150-450 [facility] Comment on above: Result Comment: NO S PEC RECEIVED REORDER IF INDICATED Performed By: #### L 500.2500, L100.0100 #### [facility] [address] [place], [address] RBC (Bld) [#/Vol] 4.56 10*6/uL Low 4.6-6.2 [facility] Comment on above: Result Comment: NO S PEC RECEIVED REORDER IF INDICATED Performed By: #### L 500.2500, L100.0100 #### [facility] [address] [place], [address] RDW SD 52.4 fl High 35.1-43.9 [facility] Comment on above: Result Comment: NO S PEC RECEIVED REORDER IF INDICATED Performed By: #### L 500.2500, L100.0100 #### [facility] [address] [place], [address] WBC (Bld) [#/Vol] 10.9 10*3/uL Normal 4.4-11.0 [facility] Comment on above: Result Comment: NO S PEC RECEIVED REORDER IF INDICATED Performed By: #### L 500.2500, L100.0100 #### [facility] [address] [place], [address] Discharge Instructionon 10-0 Discharge Instruction [facility] Medical Records Department [address] [place] [address] Instructions for Home/Discharge Instructions 03/31/24 1035 MR#: [id number] Acct: [id number] Name: DERRELL HOYT Rep #: [id number] : 1965 58 From: Jeff Weinstein MD PCP: Radha Barajas NP-C Status:ADM IN Discharge Instructions Diet Discharge Diet: Low fat / Low cholesterol and 2000 Calorie Control Diet Follow Up Care Please Follow Up With: Jeff Weinstein MD When: Follow -up in [facility] Test Results: Test results from this visit will be discussed in further detail at your follow-up appointment, if applicable. Discharge Plan Admission Admit Date/Time: 03/29/24 08:25 Attending Provider: Jeff Weinstein Primary Care Provider: Radha Barajas NP Discharge Orders/Prescriptions Prescriptions: New sotalol 80 mg Tablet 120 mg PO BID Qty: 120 3RF metoprolol tartrate 25 mg Tablet 25 mg PO BID Qty: 120 2RF Continued sennosides-docusate sodium [Senna Plus] 8.6-50 mg tablet 2 tab PO QPM tamsulosin 0.4 mg capsule 0.4 mg PO QHS acetaminophen [Tylenol Arthritis Pain] 650 mg tablet extended release 650 mg PO Q8H PRN (Reason: PAIN/FEVER) guaifenesin [Mucinex] 600 mg tablet extended release 12hr 600 mg PO Q12H PRN (Reason: CONGESTION ) montelukast [Singulair] 10 mg tablet 10 mg PO QHS fluticasone propion-salmeterol [Advair HFA] 115-21 mcg/actuation HFA aerosol inhaler 2 puff inhalation BID melatonin 10 mg tablet 10 mg PO QHS (DME) blood sugar diagnostic Kit See Rx Instructions .Route Rx Instructions: As directed Ozempic 2 mg/dose (8 mg/3 mL) pen injector 2 mg subcut TH omeprazole 20 mg capsule,delayed release(DR/EC) 20 mg PO DAILY PRN (Reason: GERD) polyethylene glycol 3350 [Miralax] 17 gram/dose powder 17 g PO DAILY potassium chloride 20 MEQ tablet 20 meq PO DAILYCM 0RF metformin 1,000 mg tablet 1,000 mg PO BID duloxetine 60 mg capsule,delayed release(DR/EC) 60 mg PO BID albuterol sulfate 90 mcg/actuation HFA aerosol inhaler 2 puff INHALATION Q4H PRN (Reason: SHORTNESS OF BREATH/WHEEZING ) trazodone 50 mg tablet 25 mg PO QHS atorvastatin 80 mg tablet 80 mg PO QHS insulin glargine [Lantus Solostar U-100 Insulin] 100 unit/mL (3 mL) insulin pen 40 unit subcut QHS levothyroxine 200 mcg tablet 225 mcg PO DAILY furosemide 40 mg tablet 40 mg PO DAILY PRN (Reason: EDEMA) Discontinued metoprolol tartrate 25 mg tablet 100 mg PO BID Referrals / Follow Up: Radha Barajas [employer]INE CHRONOMETER ASSEMBLER, MARINE CHRONOMETER ASSEMBLER-C [Primary Care Provider] - Disposition Disposition (needs filled in before D/C Order can be placed): Home, Self Care 03/31/24 1036 Jeff Weinstein MD CC: [employer]INE [employer]OMETER ASSEMBLER-C Radha Barajas Signed Normal [facility] Magnesiumon 03-31-2024 Magnesium [Mass/Vol] 2.0 mg/dL Normal 1.6-2.6 [facility] Comment on above: Performed By: #### L 500.2500, L100.0100 #### [facility] [address] [place], [address] 12 Lead EKGon 03-30-2024 12 Lead EKG [facility] Cardiovascular Services [address] [place] [address] 12 Lead EKG 03/30/24 1224 MR#: [id number] Acct: [id number] Name: DERRELL HOYT Rep #: [id number] : 1965 58 From: Jeff Weinstein MD Attending Dr: Dr. Jeff Weinstein MD Status: ADM I N Ordering Dr: Jeff Weinstein MD Date: 03/30/24 Location: [facility] Sex: M C Admitted: 03/29/24 Test Reason : Blood Pressure : / mmHG Vent. Rate : 113 BPM Atrial Rate : 088 BPM P-R Int : 182 ms QRS Dur : 088 ms QT Int : 344 ms P-R-T Axes : 044 003 032 degrees QTc Int : 471 ms Sinus rhythm with frequent and consecutive Premature ventricular complexes Possible Inferior infarct , age undetermined Abnormal ECG When compared with ECG of 30-MAR-2024 07:49, MANUAL COMPARISON REQUIRED, DATA IS UNCONFIRMED Confirmed by JEFF WEINSTEIN MD ([id number]), technical writer and editor SHIELA ALBERTO ([id number]) on 03/31/2024 6:22:31 AM Referred By: Jeff Weinstein Confirmed By:JEFF WEINSTEIN MD 03/31/24 0622 Date Jeff Weinstein MD CC: MARINE CHRONOMETER ASSEMBLERLakia Barajas; Dr. Jeff Weinstein MD Signed Normal [facility] 12 Lead EKG [facility] Cardiovascular Services [address] [place] [address] 12 Lead EKG 03/29/24 0842 MR#: [id number] Acct: [id number] Name: DERRELL HOYT Rep #: [id number] : 1965 58 From: Jeff Weinstein MD Attending Dr: Dr. Jeff Weinstein MD Status: ADM I N Ordering Dr: Jeff Weinstein MD Date: 03/30/24 Location: [facility] Sex: M C Admitted: 03/29/24 Test Reason : Blood Pressure : / mmHG Vent. Rate : 111 BPM Atrial Rate : 083 BPM P-R Int : 194 ms QRS Dur : 094 ms QT Int : 360 ms P-R-T Axes : 043 -15 045 degrees QTc Int : 489 ms Sinus rhythm with frequent and consecutive Premature ventricular complexes Inferior infarct (cited on or before 18-NOV-2023) Abnormal ECG When compared with ECG of 14-DEC-2023 19:49, Premature ventricular complexes are now Present Confirmed by JEFF WEINSTEIN MD ([id number]), technical writer and editor FRANCHESKA FARRAR ([id number]) on 03/30/2024 11:42:11 AM Referred By: Jeff Weinstein Confirmed By:JEFF WEINSTEIN MD 03/30/24 1142 Date Jeff Weinstein MD CC: MARINE CHRONOMETER ASSEMBLER-C Radha Barajas; Dr. eJff Weinstein MD Signed Normal [facility] CBC W/Diff, Automatedon 10-0 Absolute Neut Normal 2.0-7.7 [facility] Comment on above: Result Comment: Canc elled via OM: adusting time per Dr. Weinstein Performed By: #### L 500.2500, L100.0100 #### [facility] [address] [place], [address] HCT Normal 40-54 [facility] Comment on above: Result Comment: Canc elled via OM: adusting time per Dr. Weinstein Performed By: #### L 500.2500, L100.0100 #### [facility] [address] [place], [address] HGB Normal 13.0-16.5 [facility] Comment on above: Result Comment: Canc elled via OM: adusting time per Dr. Weinstein Performed By: #### L 500.2500, L100.0100 #### [facility] [address] [place], [address] MCH Normal 27.0-32.0 [facility] Comment on above: Result Comment: Canc elled via OM: adusting time per Dr. Weinstein Performed By: #### L 500.2500, L100.0100 #### [facility] [address] [place], [address] MCHC Normal 32-36 [facility] Comment on above: Result Comment: Canc elled via OM: adusting time per Dr. Weinstein Performed By: #### L 500.2500, L100.0100 #### [facility] [address] [place], [address] MCV Normal 80-94 [facility] Comment on above: Result Comment: Canc elled via OM: adusting time per Dr. Weinstein Performed By: #### L 500.2500, L100.0100 #### [facility] [address] [place], [address] NEUT% Normal 47-70 [facility] Comment on above: Result Comment: Canc elled via OM: adusting time per Dr. Weinstein Performed By: #### L 500.2500, L100.0100 #### [facility] [address] [place], [address] PLT Normal 150-450 [facility] Comment on above: Result Comment: Canc elled via OM: adusting time per Dr. Weinstein Performed By: #### L 500.2500, L100.0100 #### [facility] [address] [place], [address] RBC Normal 4.6-6.2 [facility] Comment on above: Result Comment: Canc elled via OM: adusting time per Dr. Weinstein Performed By: #### L 500.2500, L100.0100 #### [facility] [address] [place], [address] RDW CV Normal 11.6-14.6 [facility] Comment on above: Result Comment: Canc elled via OM: adusting time per Dr. Weinstein Performed By: #### L 500.2500, L100.0100 #### [facility] [address] [place], [address] RDW SD Normal 35.1-43.9 [facility] Comment on above: Result Comment: Canc elled via OM: adusting time per Dr. Weinstein Performed By: #### L 500.2500, L100.0100 #### [facility] [address] [place], [address] WBC Normal 4.4-11.0 [facility] Comment on above: Result Comment: Canc elled via OM: adusting time per Dr. Weinstein Performed By: #### L 500.2500, L100.0100 #### [facility] [address] [place], [address] 12 Lead EKGon 03-29-2024 12 Lead EKG [facility] Cardiovascular Services [address] [place] [address] 12 Lead EKG 03/30/24 0749 MR#: [id number] Acct: [id number] Name: DERRELL HOYT Rep #: [id number] : 1965 58 From: Jeff Weinstein MD Attending Dr: Dr. Jeff Weinstein MD Status: DIS I N Ordering Dr: Jeff Weinstein MD Date: 03/29/24 Location: [facility] Sex: M C Admitted: 03/29/24 Test Reason : Blood Pressure : / mmHG Vent. Rate : 075 BPM Atrial Rate : 075 BPM P-R Int : 204 ms QRS Dur : 088 ms QT Int : 402 ms P-R-T Axes : 037 007 044 degrees QTc Int : 448 ms Normal sinus rhythm Low voltage QRS Cannot rule out Inferior infarct , age undetermined Abnormal ECG When compared with ECG of 29-MAR-2024 08:42, MANUAL COMPARISON REQUIRED, DATA IS UNCONFIRMED Confirmed by CORINNA HODGES, JEFF ([id number]), technical writer and editor FRANCHESKA FARRAR ([id number]) on 04/15/2024 2:13:20 PM Referred By: Jeff Weinstein Confirmed By:JEFF WEINSTEIN MD 04/15/24 1413 Date Jeff Weinstein MD CC: MARINE CHRONOMETER ASSEMBLER-C Radha Barajas; Dr. Jeff Weinstein MD Signed Normal [facility] Bedside Glucoseon 03-29-2024 FINGERSTICK GLU 158 mg/dL High 74-106 [facility] Comment on above: Result Comment: MELI CLINTON OF PATIENT CARE PER NURSING PROTOCOL Performed By: #### L 500.2500, L100.0100 #### [facility] [address] [facility] [place], [address] Consultation - Cardiologyon 03-29-2024 Consultation - Cardiology [facility] Medical Records Department [address] [place] [address] Consultation - Cardiology 03/29/24 1401 MR#: [id number] Acct: [id number] Name: DERRELL HOYT Rep #: [id number] : 1965 58 From: Jeff Weinstein MD PCP: Radha Barajas, MARINE CHRONOMETER ASSEMBLER-C Status:ADM IN Location: [place] [address] Assessment Plan Assessment/Plan (1) Atherosclerosis of coronary artery of lovelock heart without angina pectoris: QUALIFIERS: Coronary Disease-Associated Artery/Lesion type: lovelock artery Qualified Code(s): I25.10 - Atherosclerotic heart disease of lovelock coronary artery without angina pectoris PLAN: Patient appears to be stable with respect to the above at this time. Last cardiac catheterization demonstrated patency of the previously placed stent. (2) Hypertension: QUALIFIERS: Hypertension type: unspecified Qualified Code(s): I10 - Essential (primary) hypertension PLAN: His blood pressure appears to be quite stable at this particular time I would not recommend that we make any major changes. (3) NSVT (nonsustained ventricular tachycardia): PLAN: He does have a history of nonsustained ventricular tachycardia. My recommendation will be to restart him on the sotalol and 120 mg twice a day with monitoring reduce the metoprolol to 25 mg twice a day and monitor him. He does have preserved left ventricular systolic function and we will repeat his stress test and echo on an outpatient basis. Per recommendation he would need to be here for 5 doses of the sotalol. Thank you for allowing me to participate in the care of your patient. Please don't hesitate to call if any issues arise. (4) Bradycardia: PLAN: Plan * HPI Consult Data Date of Consult: 03/29/24 HPI Narrative HPI Narrative: DERRELL HOYT, is a 58 M who presents for sotalol loading. He has a history of CAD status post LAD PTCA/bare-metal stent (01/18/2021), nonsustained ventricular tachycardia status post [facility] electrophysiology evaluation-treated medically, hyperlipidemia, and hypertension. He had undergone a cardiac catheterization in 2021 demonstrating patent stents. In October 2023 he had been transferred to [facility] for close monitoring for nonsustained ventricular tachycardia. A stress test was indeterminate and a cardiac catheterization demonstrated minimal coronary artery disease. He was to continue sotalol and metoprolol as directed by Dr. Fish but he has not followed up with them. It appeared that his sotalol and lisinopril were discontinued. From a cardiac standpoint, the patient is doing well. He denies any palpitations, chest pain, pressure or heaviness. He does acknowledge SOB-he attributes this to his COPD. This is nothing new or worsening. He denies SOB, Orthopnea, and PND. He does not have bleeding issues; no blood in urine, stool or nosebleeds. He denies any decrease in energy level, myalgias, or claudication. He denies edema, or sudden weight gain. He does have chronic bilateral lower extremity edema, and color changes. He denies dizziness, lightheadedness, syncopal or near syncopal episodes, and headaches. [facility] Medical History Cellulitis Sleep apnea Lives in assisted living facility Wears glasses Wears dentures Depression Low iron Fatty liver Syncope Dietary restriction CPAP (continuous positive airway pressure) dependence Shortness of breath on exertion History of edema History of echocardiogram Cardiology follow-up encounter Tumor Atherosclerosis of coronary artery of lovelock heart without angina pectoris Kidney stones COPD (chronic obstructive pulmonary disease) Former smoker Irregular heart beat NSVT (nonsustained ventricular tachycardia) Diabetes Asthma Hypothyroidism Hypertension Home Medications ???Medication ???Instructions ???Recorded ???Last Taken ???Type potassium chloride 20 mEq 20 meq PO DAILYCM SUPPLEMENT 04/23/19 12/30/23 Rx tablet,extended release(part/cryst) metformin 1,000 mg tablet 1,000 mg PO BID DIABETES 01/18/21 12/30/23 History sennosides 8.6 mg-docusate sodium 2 tab PO QPM CONSTIPATION 02/05/21 12/29/23 History 50 mg tablet (Senna Plus) tamsulosin 0.4 mg capsule 0.4 mg PO QHS PROSTATE 02/05/21 12/29/23 History albuterol sulfate 90 mcg/actuation 2 puff inhalation Q4H PRN 02/11/21 Unknown History aerosol inhaler SHORTNESS OF BREATH/WHEEZING duloxetine 60 mg capsule,delayed 60 mg PO BID DEPRESSION 05/22/21 12/30/23 History release montelukast 10 mg tablet 10 mg PO QHS ALLERGIES 01/10/22 12/29/23 History (Singulair) acetaminophen 650 mg 650 mg PO Q8H PRN PAIN/FEVER 02/04/22 Unknown History tablet,extended release (Tylenol Arthritis Pain) aluminum-mag hydroxide-simethicone 30 ml PO TID PRN INDIGESTION 02/04/22 11/18/23 History 400 mg-400 mg-40 mg/5 mL oral susp (more content not included)... Normal [facility] PT D/C Summary (1)on 024 PT D/C Summary (1) [facility] Physical Therapy [facility] [address] [place] [address] / REHABILITATION SERVICES DISCHARGE SUMMARY MR#: [id number] Acct: [id number] Name: DERRELL HOYT Rep #: [id number] : 1965 58 From: Stephanie MORALEZ Referring Dr.: UNRULY Barajas Status: REG RCR Insurance: [facility] Discharge Summary D/C summary: It has been my pleasure to treat DERRELL HOYT referred by UNRULY Tamez, with the diagnosis of weakness/falls for a total of 9 visit(s). Discharge Date: 03/10/24 Please see the following information for a summary of their discharge status. Subjective Subjective: Pt feels that he is getting stronger and his walking time is better. He is still winded and struggles with that. He sets his own pace and he does well. He walks a lot at home.... to the center of town and back. Pain Headache: Pain Intensity (Out of 10): 0 Overall Improvement % Improvement: 70 Objective Objective/Function: Sit to stands: X 10 with light SOB Stairs: up and down recip with 2 hand rails (he struggles with his L foot ascending the step but this is nothing new) Goals Goal 1:: I HEP Goal Progress: Goal Met Goal 2:: Be able to walk entire lap around inside building (around 340 feet) without having to take a rest break (at eval walked 88 feet in 49 seconds) Goal Progress: Goal Met Goal 3:: Be able to perform 10 sit to stands with ease and no SOB Goal Progress: Goal Met Goal 4:: Stairs: up and down recip with 1-2 hand rail with ease Goal Progress: Goal Met Plan Plan: 2X/ week for 12 weeks for endurance (increase walking capacity), transfers, stairs, LE strength, and HEP D/C Information Discharge Comments: DC PT to walking program at home d/c sentence: If there are questions or concerns regarding this patient's physical therapy, please feel free to call me at [phone]. Thank you for the referral of this patient. Sincerely, NAOMY Stevenson Balance/Gait/Functional tests Balance/Special Test Scores Lower Extremity Functional Score: 52 TUG Test Time Seconds: 12.24 Tug Test: <20 sec.=mostly independent 30 Second Chair Rise Test Seconds: 8 6 Minute Walk Test: 210 Improvement % Improvement: 70 03/10/24 1355 CC: UNRULY Barajas Signed Normal [facility] Cardiology Visit Reporton Cardiology Visit Report [facility] [address] [place] [address] OFFICE VISIT Date of Service: 02/11/24 MR#: [id number] Acct: [id number] Name: DERRELL HOYT Rep #: [id number] : 1965 Provider: UNRULY Quezada rts Age/Sex: 58/M Location: [facility] Status: Signed HPI HPI History of Present Illness Details: This is a 58-year-old white male who presents to the office for outpatient cardiovascular follow-up visit. He has a history of CAD status post LAD PTCA/bare-metal stent (01/18/2021), nonsustained ventricular tachycardia status post [facility] electrophysiology evaluation- treated medically, hyperlipidemia, and hypertension. Patient was transferred to [facility] in October of this year for close monitoring of NSVT. He underwent a stress test which was indeterminate,followed by a left cardiac catheterization which demonstrated widely patent stent in LAD and otherwise minimal coronary disease, normal LV function. He was to continue sotalol and metoprolol as directed by EP. He was to follow-up with EP after discharge from hospital. He states he has not followed up with EP due to location/transportation. After reviewing his discharge paperwork, it appears his sotalol, and lisinopril were discontinued. From a cardiac standpoint, the patient is doing well. He denies any palpitations, chest pain, pressure or heaviness. He does acknowledge SOB-he attributes this to his COPD. This is nothing new or worsening. He denies SOB, Orthopnea, and PND. He does not have bleeding issues; no blood in urine, stool or nosebleeds. He denies any decrease in energy level, myalgias, or claudication. He denies edema, or sudden weight gain. He does have chronic bilateral lower extremity edema, and color changes. He denies dizziness, lightheadedness, syncopal or near syncopal episodes, and headaches. Intake Vital Signs 12/31/23 15:16 02/11/24 10:29 02/11/24 10:31 Height 6 ft 6 ft 6 ft Weight: 324 lb BMI 43.9 BP 123/76 H Blood Pressure Location Lt brachial Position Sitting Respiration 20 H Pulse 83 Pulse Source Monitor Pulse Oximetry (%) 95 Intake Visit Reasons: 6 M [employer]U [employer]ker Required: No Is patient in pain?: No Allergies No Known Allergies Allergy (Verified 02/11/24 10:38) Medications ???Medication ???Instructions ???Recorded ???Confirmed ???Type potassium chloride 20 mEq 20 meq PO DAILYCM SUPPLEMENT 04/23/19 02/12/24 Rx tablet,extended release(part/cryst) metformin 1,000 mg tablet 1,000 mg PO BID DIABETES 01/18/21 02/12/24 History sennosides 8.6 mg-docusate sodium 2 tab PO QPM CONSTIPATION 02/05/21 02/12/24 History 50 mg tablet (Senna Plus) tamsulosin 0.4 mg capsule 0.4 mg PO QHS PROSTATE 02/05/21 02/12/24 History albuterol sulfate 90 mcg/actuation 2 puff inhalation Q4H PRN 02/11/21 02/12/24 History aerosol inhaler SHORTNESS OF BREATH/WHEEZING duloxetine 60 mg capsule,delayed 60 mg PO BID DEPRESSION 05/22/21 02/12/24 History release montelukast 10 mg tablet 10 mg PO QHS ALLERGIES 01/10/22 02/12/24 History (Singulair) acetaminophen 650 mg 650 mg PO Q8H PRN PAIN/FEVER 02/04/22 02/12/24 History tablet,extended release (Tylenol Arthritis Pain) aluminum-mag hydroxide-simethicone 30 ml PO TID PRN INDIGESTION 02/04/22 02/12/24 History 400 mg-400 mg-40 mg/5 mL oral susp (Mylanta Maximum Strength) guaifenesin 600 mg tablet, 600 mg PO Q12H PRN CONGESTION 02/04/22 02/12/24 History extended release 12 hr (Mucinex) fluticasone propionate 115 2 puff inhalation BID COPD 07/31/22 02/12/24 History mcg-salmeterol 21 mcg/actuation HFA inhaler (Advair HFA) melatonin 10 mg tablet 10 mg PO QHS SLEEP 07/31/22 02/12/24 History artifi.tears(hypromellos e)(PF) 1.7 1 drp ophthalmic (eye) Q6H PRN DRY 11/25/22 02/12/24 History % eye drops with applicator EYES blood sugar diagnostic 11/25/22 10/22/23 History sodium chloride 0.65 % nasal spray 2 spray intranasal Q4H PRN DRY 11/25/22 02/12/24 History aerosol (Deep Sea Nasal) NARES semaglutide 2 mg/dose (8 mg/3 mL) 2 mg subcut TH DIABETES 10/22/23 02/12/24 History subcutaneous pen injector (Ozempic) trazodone 50 mg tablet 25 mg PO QHS SLEEP 11/05/23 02/12/24 History atorvastatin 80 mg tablet 80 mg PO QHS CHOLESTEROL 11/18/23 02/12/24 History nystatin 100,000 unit/gram topical 1 applic topical TID PRN 12/30/23 02/12/24 History powder REDNESS/RASH aspirin 81 mg tablet,delayed 81 mg PO DAILY 02/11/24 02/12/24 History release insulin glargine 100 unit/mL (3 40 unit subcut QHS DIABETES 02/11/24 02/12/24 History mL) subcutaneous pen (Lantus Solostar U-100 Insulin) omeprazole 20 mg capsule,delayed 20 mg PO DAILY PRN GERD 02/11/24 02/12/24 History release citalopram 20 mg tablet 20 mg PO DAILY 08 (more content not included)... Normal [facility] Inital Evaluation (1) - PTon 01-29-2024 Inital Evaluation (1) - PT [facility] [place] [id number] [facility]. [address] [place] [address] / REHABILITATION SERVICES INITIAL EVALUATION MR#: [id number] Acct: [id number] Name: DERRELL HOYT Rep #: [id number] : 1965 58 From: Stephanie MORALEZ Referring DrJessica: Radha Barajas [employer]INE [employer]-C Status: REG R Insurance: [facility] Patient's Visit Information Visit Information Visit Information: DERRELL HOYT is a 58 year old M referred to Physical Therapy by UNRULY Tamez with a diagnosis of weakness/falls. Date of Evaluation: 01/29/24 Physical Therapist: NAOMY Stevenson Visit Plan Frequency: 2x /Week Duration: 3 Months Plan: 2X/ week for 12 weeks for endurance (increase walking capacity), transfers, stairs, LE strength, and HEP Subjective Subjective: Pt has no endurance. He still gets winded with walking. If he tries to get a quicker pace he gets winded. This has always been going on and basically getting worse. He has stairs at home and he can alternate feet and he uses 1 railing. He has to make sure he plants his feet going up and down curb steps. He stumbles if he does not pay attention to his feet. Sit to stand and uses his legs to push up he might get a little unsteady when he stands up. He has had a fall in the past but none recently. He has some trouble getting out of a car. He sleeps sitting up. Pain Headache: Pain Intensity (Out of 10): 3 Objective Objective: R hip flex 12.7 and L 11.4 R knee ext 15.1 and l 17 R knee flex 9.7 and L 10.8 Gait: walked 49 seconds (88 feet) and felt tired and asked to sit due to starting to get winded. Walks with WBOS, decrease stride length and decrease heel to toe. Able to walk with horizontal head turns with no dizziness at slow pace Pt is able to stand for 30 sec with EO/EC WITH NO LOB Sit to stand: able to get up slowly on first attempt with using hands on thighs and very Wide legs. Stairs: up and down varying reciprocal and step two pattern using 2 hand rails to help pull self up Balance/Special Test Scores Lower Extremity Functional Score: 44 Goals Goal 1:: I HEP Goal Time Frame: 6-8 Weeks Goal 2:: Be able to walk entire lap around inside building (around 340 feet) without having to take a rest break (at eval walked 88 feet in 49 seconds) Goal Time Frame: 6-8 Weeks Goal 3:: Be able to perform 10 sit to stands with ease and no SOB Goal Time Frame: 6-8 Weeks Goal 4:: Stairs: up and down recip with 1-2 hand rail with ease Goal Time Frame: 6-8 Weeks Rehabilitation Potential Rehabilitation Potential: Good Anticipated Interventions Patient/Client Instruction: Educate patient on: Condition and Plan of Care For the Purpose of:: To improve muscle performance and motor function, To improve ability to perform ADL's, To increase tolerance to activity/condition/posit ion, To improve performance and independence with ADL's, To decrease level of supervision to perform tasks, To improve ability of physical actions for home/community/work/leis ure, To improve gait and locomotor functions, To decrease soft tissue restriction, To increase flexibility/ROM, To improve endurance, To improve balance and To improve safety with gait Therapeutic Exercise to Include: Strength training, Endurance training, Balance training, Postural training, Flexibilty training, Gait and locomotor training, Active ROM and Dynamic Lumbar Stabilization For the Purpose of:: To improve muscle performance and motor function, To improve ability to perform ADL's, To increase tolerance to activity/condition/posit ion, To improve performance and independence with ADL's, To decrease level of supervision to perform tasks, To improve ability of physical actions for home/community/work/leis ure, To improve gait and locomotor functions, To improve health of tissue, To decrease soft tissue restriction, To increase flexibility/ROM, To improve endurance and To improve balance Functional Training to Include: Gait training For the Purpose of:: To improve gait and locomotor functions and To improve safety with gait Text: Thank you for the opportunity to evaluate your patient. For Medicare and Medicare HMO plans, please review the plan of care and approve it. It will need to be FAXED BACK to us at [phone] for Medicare purposes. For Medicare only, by signing this I certify the plan of care. Please let me know if there are questions or concerns regarding this plan of care. Physician Signature: Date: ____ 01/29/24 1521 CC: UNRULY Barajas Signed [facility] 01-21-2024 [facility]CO Letter Text Normal [facility] Basic Metabolic Profile (BMP )on 01-05-2024 BUN Normal 7-18 [facility] Comment on above: Result Comment: Canc elled via OM: Order cancelled - Patient discharged Performed By: #### L 500.2500, L100.0100 #### [facility] [address] [place], [address] BUN/CRE Normal 10-20 [facility] Comment on above: Result Comment: Canc elled via OM: Order cancelled - Patient discharged Performed By: #### L 500.2500, L100.0100 #### [facility] [address] [place], [address] CA,Total Normal 8.5-10.1 [facility] Comment on above: Result Comment: Canc elled via OM: Order cancelled - Patient discharged Performed By: #### L 500.2500, L100.0100 #### [facility] [address] [place], [address] CL Normal 98-107 [facility] Comment on above: Result Comment: Canc elled via OM: Order cancelled - Patient discharged Performed By: #### L 500.2500, L100.0100 #### [facility] [address] [place], [address] CO2 Normal 21.0-32.0 [facility] Comment on above: Result Comment: Canc elled via OM: Order cancelled - Patient discharged Performed By: #### L 500.2500, L100.0100 #### [facility] [address] [place], [address] CREAT,SERUM Normal 0.70-1.30 [facility] Comment on above: Result Comment: Canc elled via OM: Order cancelled - Patient discharged Performed By: #### L 500.2500, L100.0100 #### [facility] [address] [place], [address] EST GFR Normal >60 [facility] Comment on above: Result Comment: Canc elled via OM: Order cancelled - Patient discharged Performed By: #### L 500.2500, L100.0100 #### [facility] [address] [place], [address] EST GFR - AA Normal >60 [facility] Comment on above: Result Comment: Canc elled via OM: Order cancelled - Patient discharged Performed By: #### L 500.2500, L100.0100 #### [facility] [address] [place], [address] GAP Normal 5-15 [facility] Comment on above: Result Comment: Canc elled via OM: Order cancelled - Patient discharged Performed By: #### L 500.2500, L100.0100 #### [facility] [address] [place], [address] GLU Normal 74-106 [facility] Comment on above: Result Comment: Canc elled via OM: Order cancelled - Patient discharged Performed By: #### L 500.2500, L100.0100 #### [facility] [address] [place], [address] Potassium Normal 3.5-5.1 [facility] Comment on above: Result Comment: Canc elled via OM: Order cancelled - Patient discharged Performed By: #### L 500.2500, L100.0100 #### [facility] [address] [place], [address] Basic Metabolic Profile (BMP) Normal 136-145 [facility] Comment on above: Result Comment: Canc elled via OM: Order cancelled - Patient discharged Performed By: #### L 500.2500, L100.0100 #### [facility] [address] [place], [address] CBC W/Diff, Automatedon 07-1 Absolute Neut Normal 2.0-7.7 [facility] Comment on above: Result Comment: Canc elled via OM: Order cancelled - Patient discharged Performed By: #### L 500.2500, L100.0100 #### [facility] [address] [place], [address] HCT Normal 40-54 [facility] Comment on above: Result Comment: Canc elled via OM: Order cancelled - Patient discharged Performed By: #### L 500.2500, L100.0100 #### [facility] [address] [place], [address] HGB Normal 13.0-16.5 [facility] Comment on above: Result Comment: Canc elled via OM: Order cancelled - Patient discharged Performed By: #### L 500.2500, L100.0100 #### [facility] [address] [place], [address] MCH Normal 27.0-32.0 [facility] Comment on above: Result Comment: Canc elled via OM: Order cancelled - Patient discharged Performed By: #### L 500.2500, L100.0100 #### [facility] [address] [place], [address] MCHC Normal 32-36 [facility] Comment on above: Result Comment: Canc elled via OM: Order cancelled - Patient discharged Performed By: #### L 500.2500, L100.0100 #### [facility] [address] [place], [address] MCV Normal 80-94 [facility] Comment on above: Result Comment: Canc elled via OM: Order cancelled - Patient discharged Performed By: #### L 500.2500, L100.0100 #### [facility] [address] [place], [address] NEUT% Normal 47-70 [facility] Comment on above: Result Comment: Canc elled via OM: Order cancelled - Patient discharged Performed By: #### L 500.2500, L100.0100 #### [facility] [address] [place], [address] PLT Normal 150-450 [facility] Comment on above: Result Comment: Canc elled via OM: Order cancelled - Patient discharged Performed By: #### L 500.2500, L100.0100 #### [facility] [address] [place], [address] RBC Normal 4.6-6.2 [facility] Comment on above: Result Comment: Canc elled via OM: Order cancelled - Patient discharged Performed By: #### L 500.2500, L100.0100 #### [facility] [address] [place], [address] RDW CV Normal 11.6-14.6 [facility] Comment on above: Result Comment: Canc elled via OM: Order cancelled - Patient discharged Performed By: #### L 500.2500, L100.0100 #### [facility] [address] [place], [address] RDW SD Normal 35.1-43.9 [facility] Comment on above: Result Comment: Canc elled via OM: Order cancelled - Patient discharged Performed By: #### L 500.2500, L100.0100 #### [facility] [address] [place], [address] WBC Normal 4.4-11.0 [facility] Comment on above: Result Comment: Canc elled via OM: Order cancelled - Patient discharged Performed By: #### L 500.2500, L100.0100 #### [facility] [address] [place], [address] Basic Metabolic Profile (BMP )on 01-04-2024 BUN Normal 7-18 [facility] Comment on above: Result Comment: Canc elled via OM: Order cancelled - Patient discharged Performed By: #### L 500.2500, L100.0100 #### [facility] [address] [place], [address] BUN/CRE Normal 10-20 [facility] Comment on above: Result Comment: Canc elled via OM: Order cancelled - Patient discharged Performed By: #### L 500.2500, L100.0100 #### [facility] [address] [place], [address] CA,Total Normal 8.5-10.1 [facility] Comment on above: Result Comment: Canc elled via OM: Order cancelled - Patient discharged Performed By: #### L 500.2500, L100.0100 #### [facility] [address] [place], [address] CL Normal 98-107 [facility] Comment on above: Result Comment: Canc elled via OM: Order cancelled - Patient discharged Performed By: #### L 500.2500, L100.0100 #### [facility] [address] [place], [address] CO2 Normal 21.0-32.0 [facility] Comment on above: Result Comment: Canc elled via OM: Order cancelled - Patient discharged Performed By: #### L 500.2500, L100.0100 #### [facility] [address] [place], [address] CREAT,SERUM Normal 0.70-1.30 [facility] Comment on above: Result Comment: Canc elled via OM: Order cancelled - Patient discharged Performed By: #### L 500.2500, L100.0100 #### [facility] [address] [place], [address] EST GFR Normal >60 [facility] Comment on above: Result Comment: Canc elled via OM: Order cancelled - Patient discharged Performed By: #### L 500.2500, L100.0100 #### [facility] [address] [place], [address] EST GFR - AA Normal >60 [facility] Comment on above: Result Comment: Canc elled via OM: Order cancelled - Patient discharged Performed By: #### L 500.2500, L100.0100 #### [facility] [address] [place], [address] GAP Normal 5-15 [facility] Comment on above: Result Comment: Canc elled via OM: Order cancelled - Patient discharged Performed By: #### L 500.2500, L100.0100 #### [facility] [address] [place], [address] GLU Normal 74-106 [facility] Comment on above: Result Comment: Canc elled via OM: Order cancelled - Patient discharged Performed By: #### L 500.2500, L100.0100 #### [facility] [address] [place], [address] Potassium Normal 3.5-5.1 [facility] Comment on above: Result Comment: Canc elled via OM: Order cancelled - Patient discharged Performed By: #### L 500.2500, L100.0100 #### [facility] [address] [place], [address] Basic Metabolic Profile (BMP) Normal 136-145 [facility] Comment on above: Result Comment: Canc elled via OM: Order cancelled - Patient discharged Performed By: #### L 500.2500, L100.0100 #### [facility] [address] [place], [address] CBC W/Diff, Automatedon 07-1 Absolute Neut Normal 2.0-7.7 [facility] Comment on above: Result Comment: Canc elled via OM: Order cancelled - Patient discharged Performed By: #### L 500.2500, L100.0100 #### [facility] [address] [place], [address] HCT Normal 40-54 [facility] Comment on above: Result Comment: Canc elled via OM: Order cancelled - Patient discharged Performed By: #### L 500.2500, L100.0100 #### [facility] [address] [place], [address] HGB Normal 13.0-16.5 [facility] Comment on above: Result Comment: Canc elled via OM: Order cancelled - Patient discharged Performed By: #### L 500.2500, L100.0100 #### [facility] [address] [place], [address] MCH Normal 27.0-32.0 [facility] Comment on above: Result Comment: Canc elled via OM: Order cancelled - Patient discharged Performed By: #### L 500.2500, L100.0100 #### [facility] [address] [place], [address] MCHC Normal 32-36 [facility] Comment on above: Result Comment: Canc elled via OM: Order cancelled - Patient discharged Performed By: #### L 500.2500, L100.0100 #### [facility] [address] [place], [address] MCV Normal 80-94 [facility] Comment on above: Result Comment: Canc elled via OM: Order cancelled - Patient discharged Performed By: #### L 500.2500, L100.0100 #### [facility] [address] [place], [address] NEUT% Normal 47-70 [facility] Comment on above: Result Comment: Canc elled via OM: Order cancelled - Patient discharged Performed By: #### L 500.2500, L100.0100 #### [facility] [address] [place], [address] PLT Normal 150-450 [facility] Comment on above: Result Comment: Canc elled via OM: Order cancelled - Patient discharged Performed By: #### L 500.2500, L100.0100 #### [facility] [address] [place], [address] RBC Normal 4.6-6.2 [facility] Comment on above: Result Comment: Canc elled via OM: Order cancelled - Patient discharged Performed By: #### L 500.2500, L100.0100 #### [facility] [address] [place], [address] RDW CV Normal 11.6-14.6 [facility] Comment on above: Result Comment: Canc elled via OM: Order cancelled - Patient discharged Performed By: #### L 500.2500, L100.0100 #### [facility] [address] [place], [address] RDW SD Normal 35.1-43.9 [facility] Comment on above: Result Comment: Canc elled via OM: Order cancelled - Patient discharged Performed By: #### L 500.2500, L100.0100 #### [facility] [address] [place], [address] WBC Normal 4.4-11.0 [facility] Comment on above: Result Comment: Canc elled via OM: Order cancelled - Patient discharged Performed By: #### L 500.2500, L100.0100 #### [facility] [address] [place], [address] Basic Metabolic Profile (BMP )on 01-03-2024 BUN Normal 7-18 [facility] Comment on above: Result Comment: Canc elled via OM: Order cancelled - Patient discharged Performed By: #### L 500.2500, L100.0100 #### [facility] [address] [place], [address] BUN/CRE Normal 10-20 [facility] Comment on above: Result Comment: Canc elled via OM: Order cancelled - Patient discharged Performed By: #### L 500.2500, L100.0100 #### [facility] [address] [place], [address] CA,Total Normal 8.5-10.1 [facility] Comment on above: Result Comment: Canc elled via OM: Order cancelled - Patient discharged Performed By: #### L 500.2500, L100.0100 #### [facility] [address] [place], [address] CL Normal 98-107 [facility] Comment on above: Result Comment: Canc elled via OM: Order cancelled - Patient discharged Performed By: #### L 500.2500, L100.0100 #### [facility] [address] [place], [address] CO2 Normal 21.0-32.0 [facility] Comment on above: Result Comment: Canc elled via OM: Order cancelled - Patient discharged Performed By: #### L 500.2500, L100.0100 #### [facility] [address] [place], [address] CREAT,SERUM Normal 0.70-1.30 [facility] Comment on above: Result Comment: Canc elled via OM: Order cancelled - Patient discharged Performed By: #### L 500.2500, L100.0100 #### [facility] [address] [place], [address] EST GFR Normal >60 [facility] Comment on above: Result Comment: Canc elled via OM: Order cancelled - Patient discharged Performed By: #### L 500.2500, L100.0100 #### [facility] [address] [place], [address] EST GFR - AA Normal >60 [facility] Comment on above: Result Comment: Canc elled via OM: Order cancelled - Patient discharged Performed By: #### L 500.2500, L100.0100 #### [facility] [address] [place], [address] GAP Normal 5-15 [facility] Comment on above: Result Comment: Canc elled via OM: Order cancelled - Patient discharged Performed By: #### L 500.2500, L100.0100 #### [facility] [address] [place], [address] GLU Normal 74-106 [facility] Comment on above: Result Comment: Canc elled via OM: Order cancelled - Patient discharged Performed By: #### L 500.2500, L100.0100 #### [facility] [address] [place], [address] Potassium Normal 3.5-5.1 [facility] Comment on above: Result Comment: Canc elled via OM: Order cancelled - Patient discharged Performed By: #### L 500.2500, L100.0100 #### [facility] [address] [place], [address] Basic Metabolic Profile (BMP) Normal 136-145 [facility] Comment on above: Result Comment: Canc elled via OM: Order cancelled - Patient discharged Performed By: #### L 500.2500, L100.0100 #### [facility] [address] [place], [address] CBC W/Diff, Automatedon 07- Absolute Neut Normal 2.0-7.7 [facility] Comment on above: Result Comment: Canc elled via OM: Order cancelled - Patient discharged Performed By: #### L 500.2500, L100.0100 #### [facility] [address] [place], [address] HCT Normal 40-54 [facility] Comment on above: Result Comment: Canc elled via OM: Order cancelled - Patient discharged Performed By: #### L 500.2500, L100.0100 #### [facility] [address] [place], [address] HGB Normal 13.0-16.5 [facility] Comment on above: Result Comment: Canc elled via OM: Order cancelled - Patient discharged Performed By: #### L 500.2500, L100.0100 #### [facility] [address] [place], [address] MCH Normal 27.0-32.0 [facility] Comment on above: Result Comment: Canc elled via OM: Order cancelled - Patient discharged Performed By: #### L 500.2500, L100.0100 #### [facility] [address] [place], [address] MCHC Normal 32-36 [facility] Comment on above: Result Comment: Canc elled via OM: Order cancelled - Patient discharged Performed By: #### L 500.2500, L100.0100 #### [facility] [address] [place], [address] MCV Normal 80-94 [facility] Comment on above: Result Comment: Canc elled via OM: Order cancelled - Patient discharged Performed By: #### L 500.2500, L100.0100 #### [facility] [address] [place], [address] NEUT% Normal 47-70 [facility] Comment on above: Result Comment: Canc elled via OM: Order cancelled - Patient discharged Performed By: #### L 500.2500, L100.0100 #### [facility] [address] [place], [address] PLT Normal 150-450 [facility] Comment on above: Result Comment: Canc elled via OM: Order cancelled - Patient discharged Performed By: #### L 500.2500, L100.0100 #### [facility] [address] [place], [address] RBC Normal 4.6-6.2 [facility] Comment on above: Result Comment: Canc elled via OM: Order cancelled - Patient discharged Performed By: #### L 500.2500, L100.0100 #### [facility] [address] [place], [address] RDW CV Normal 11.6-14.6 [facility] Comment on above: Result Comment: Canc elled via OM: Order cancelled - Patient discharged Performed By: #### L 500.2500, L100.0100 #### [facility] [address] [place], [address] RDW SD Normal 35.1-43.9 [facility] Comment on above: Result Comment: Canc elled via OM: Order cancelled - Patient discharged Performed By: #### L 500.2500, L100.0100 #### [facility] [address] [place], [address] WBC Normal 4.4-11.0 [facility] Comment on above: Result Comment: Canc elled via OM: Order cancelled - Patient discharged Performed By: #### L 500.2500, L100.0100 #### [facility] [address] [place], [address] Basic Metabolic Profile (BMP )on 01-02-2024 BUN Normal 7-18 [facility] Comment on above: Result Comment: Canc elled via OM: Order cancelled - Patient discharged Performed By: #### L 500.2500, L100.0100 #### [facility] [address] [place], [address] BUN/CRE Normal 10-20 [facility] Comment on above: Result Comment: Canc elled via OM: Order cancelled - Patient discharged Performed By: #### L 500.2500, L100.0100 #### [facility] [address] [place], [address] CA,Total Normal 8.5-10.1 [facility] Comment on above: Result Comment: Canc elled via OM: Order cancelled - Patient discharged Performed By: #### L 500.2500, L100.0100 #### [facility] [address] [place], [address] CL Normal 98-107 [facility] Comment on above: Result Comment: Canc elled via OM: Order cancelled - Patient discharged Performed By: #### L 500.2500, L100.0100 #### [facility] [address] [place], [address] CO2 Normal 21.0-32.0 [facility] Comment on above: Result Comment: Canc elled via OM: Order cancelled - Patient discharged Performed By: #### L 500.2500, L100.0100 #### [facility] [address] [place], [address] CREAT,SERUM Normal 0.70-1.30 [facility] Comment on above: Result Comment: Canc elled via OM: Order cancelled - Patient discharged Performed By: #### L 500.2500, L100.0100 #### [facility] [address] [place], [address] EST GFR Normal >60 [facility] Comment on above: Result Comment: Canc elled via OM: Order cancelled - Patient discharged Performed By: #### L 500.2500, L100.0100 #### [facility] [address] [place], [address] EST GFR - AA Normal >60 [facility] Comment on above: Result Comment: Canc elled via OM: Order cancelled - Patient discharged Performed By: #### L 500.2500, L100.0100 #### [facility] [address] [place], [address] GAP Normal 5-15 [facility] Comment on above: Result Comment: Canc elled via OM: Order cancelled - Patient discharged Performed By: #### L 500.2500, L100.0100 #### [facility] [address] [place], [address] GLU Normal 74-106 [facility] Comment on above: Result Comment: Canc elled via OM: Order cancelled - Patient discharged Performed By: #### L 500.2500, L100.0100 #### [facility] [address] [place], [address] Potassium Normal 3.5-5.1 [facility] Comment on above: Result Comment: Canc elled via OM: Order cancelled - Patient discharged Performed By: #### L 500.2500, L100.0100 #### [facility] [address] [place], [address] Basic Metabolic Profile (BMP) Normal 136-145 [facility] Comment on above: Result Comment: Canc elled via OM: Order cancelled - Patient discharged Performed By: #### L 500.2500, L100.0100 #### [facility] [address] [place], [address] CBC W/Diff, Automatedon 07- Absolute Neut Normal 2.0-7.7 [facility] Comment on above: Result Comment: Canc elled via OM: Order cancelled - Patient discharged Performed By: #### L 500.2500, L100.0100 #### [facility] [address] [place], [address] HCT Normal 40-54 [facility] Comment on above: Result Comment: Canc elled via OM: Order cancelled - Patient discharged Performed By: #### L 500.2500, L100.0100 #### [facility] [address] [place], [address] HGB Normal 13.0-16.5 [facility] Comment on above: Result Comment: Canc elled via OM: Order cancelled - Patient discharged Performed By: #### L 500.2500, L100.0100 #### [facility] [address] [place], [address] MCH Normal 27.0-32.0 [facility] Comment on above: Result Comment: Canc elled via OM: Order cancelled - Patient discharged Performed By: #### L 500.2500, L100.0100 #### [facility] [address] [place], [address] MCHC Normal 32-36 [facility] Comment on above: Result Comment: Canc elled via OM: Order cancelled - Patient discharged Performed By: #### L 500.2500, L100.0100 #### [facility] [address] [place], [address] MCV Normal 80-94 [facility] Comment on above: Result Comment: Canc elled via OM: Order cancelled - Patient discharged Performed By: #### L 500.2500, L100.0100 #### [facility] [address] [place], [address] NEUT% Normal 47-70 [facility] Comment on above: Result Comment: Canc elled via OM: Order cancelled - Patient discharged Performed By: #### L 500.2500, L100.0100 #### [facility] [address] [place], [address] PLT Normal 150-450 [facility] Comment on above: Result Comment: Canc elled via OM: Order cancelled - Patient discharged Performed By: #### L 500.2500, L100.0100 #### [facility] [address] [place], [address] RBC Normal 4.6-6.2 [facility] Comment on above: Result Comment: Canc elled via OM: Order cancelled - Patient discharged Performed By: #### L 500.2500, L100.0100 #### [facility] [address] [place], [address] RDW CV Normal 11.6-14.6 [facility] Comment on above: Result Comment: Canc elled via OM: Order cancelled - Patient discharged Performed By: #### L 500.2500, L100.0100 #### [facility] [address] [place], [address] RDW SD Normal 35.1-43.9 [facility] Comment on above: Result Comment: Canc elled via OM: Order cancelled - Patient discharged Performed By: #### L 500.2500, L100.0100 #### [facility] [address] [place], [address] WBC Normal 4.4-11.0 [facility] Comment on above: Result Comment: Canc elled via OM: Order cancelled - Patient discharged Performed By: #### L 500.2500, L100.0100 #### [facility] [address] [place], [address] Basic Metabolic Profile (BMP )on 01-01-2024 BUN/CRE 11.6 RATIO Normal 10-20 [facility] Comment on above: Performed By: #### L 501.2300, L501.5200, L100.0100, L500.2500 ####[facility] [address] [place], [address] CA,Total 8.6 mg/dL Normal 8.5-10.1 [facility] Comment on above: Performed By: #### L 501.2300, L501.5200, L100.0100, L500.2500 ####[facility] [address] [place], [address] Chloride [Moles/Vol] 103 mmol/L Normal 98-107 [facility] Comment on above: Performed By: #### L 501.2300, L501.5200, L100.0100, L500.2500 ####[facility] [address] [place], [address] CO2 [Moles/Vol] 28.0 mmol/L Normal 21.0-32.0 [facility] Comment on above: Performed By: #### L 501.2300, L501.5200, L100.0100, L500.2500 ####[facility] [address] [place], [address] Creatinine [Mass/Vol] 0.60 mg/dL Low 0.70-1.30 [facility] Comment on above: Result Comment: The validity of the calculated GFR GFRAA in patients over 70 years has not been determined. Clinical correlation is essential. Performed By: #### L 501.2300, L501.5200, L100.0100, L500.2500 ####[facility] [address] [place], [address] ECRCL 203.79 ml/min Normal [facility] Comment on above: Performed By: #### L 501.2300, L501.5200, L100.0100, L500.2500 ####[facility] [address] [place], [address] EST GFR - AA 176 mL/min Normal >60 [facility] Comment on above: Result Comment: Afri can Maltese GFR Calc Performed By: #### L 501.2300, L501.5200, L100.0100, L500.2500 ####[facility] [address] [place], [address] GAP 4 Low 5-15 [facility] Comment on above: Performed By: #### L 501.2300, L501.5200, L100.0100, L500.2500 ####[facility] [address] [place], [address] GFR/1.73 sq M.predicted among non-blacks MDRD (S/P/Bld) [Vol rate/Area] 146 mL/min/{1.73_m2} Normal >60 [facility] Comment on above: Result Comment: Non- GFR Calc Performed By: #### L 501.2300, L501.5200, L100.0100, L500.2500 ####[facility] [address] [place], [address] Glucose [Mass/Vol] 184 mg/dL High 74-106 [facility] Comment on above: Result Comment: Fast ing Glucose result greater than or equal to 126 mg/dL suggests DIABETES MELLITUS per A.D.A. criteria. Performed By: #### L 501.2300, L501.5200, L100.0100, L500.2500 ####[facility] [address] [place], [address] Potassium [Moles/Vol] 4.4 mmol/L Normal 3.5-5.1 [facility] Comment on above: Result Comment: Slig ht Hemolysis, Result may be falsely increased. Performed By: #### L 501.2300, L501.5200, L100.0100, L500.2500 ####[facility] [address] [place], [address] Sodium [Moles/Vol] 135 mmol/L Low 136-145 [facility] Comment on above: Performed By: #### L 501.2300, L501.5200, L100.0100, L500.2500 ####[facility] [address] [place], [address] Urea nitrogen [Mass/Vol] 7 mg/dL Normal 7-18 [facility] Comment on above: Performed By: #### L 501.2300, L501.5200, L100.0100, L500.2500 ####[facility] [address] [place], [address] Bedside Glucoseon 01-01-2024 FINGERSTICK GLU 185 mg/dL High 74-106 [facility] Comment on above: Result Comment: MELI GEMENT OF PATIENT CARE PER NURSING PROTOCOL Performed By: #### L 500.2500, L100.0100 #### [facility] [address] [place], [address] FINGERSTICK GLU 179 mg/dL High 74-106 [facility] Comment on above: Result Comment: MELI GEMENT OF PATIENT CARE PER NURSING PROTOCOL Performed By: #### L 501.080 ####[facility] [address] [place], [address] CBC W/Diff, Automatedon 07-06 23-2023 Absolute Lymph 1.35 X10 3/uL Normal 0.83-4.51 [facility] Comment on above: Performed By: #### L 501.2300, L501.5200, L100.0100, L500.2500 ####[facility] [address] [place], [address] Absolute Neut 6.5 X10 3/uL Normal 2.0-7.7 [facility] Comment on above: Performed By: #### L 501.2300, L501.5200, L100.0100, L500.2500 ####[facility] [address] [place], [address] Basophils/100 WBC (Bld) 0.6 % Normal 0-1 [facility] Comment on above: Performed By: #### L 501.2300, L501.5200, L100.0100, L500.2500 ####[facility] [address] [place], [address] Eosinophils/100 WBC (Bld) 5.4 % High 0-5 [facility] Comment on above: Performed By: #### L 501.2300, L501.5200, L100.0100, L500.2500 ####[facility] [address] [place], [address] Erythrocyte distribution width (RBC) [Ratio] 18.9 % High 11.6-14.6 [facility] Comment on above: Performed By: #### L 501.2300, L501.5200, L100.0100, L500.2500 ####[facility] [address] [place], [address] Hematocrit (Bld) [Volume fraction] 37.7 % Low 40-54 [facility] Comment on above: Performed By: #### L 501.2300, L501.5200, L100.0100, L500.2500 ####[facility] [address] [place], [address] Hemoglobin (Bld) [Mass/Vol] 11.4 g/dL Low 13.0-16.5 [facility] Comment on above: Performed By: #### L 501.2300, L501.5200, L100.0100, L500.2500 ####[facility] [address] [place], [address] IG% 0.600 Normal 0.0-0.9 [facility] Comment on above: Result Comment: IG% - Immature Granulocytes (promyelocytes, myelocytes and metamyelocytes) > 1% indicates that a LEFT SHIFT is Present. Performed By: #### L 501.2300, L501.5200, L100.0100, L500.2500 ####[facility] [address] [place], [address] Lymphocytes/100 WBC (Bld) 15.0 % Low 19-41 [facility] Comment on above: Performed By: #### L 501.2300, L501.5200, L100.0100, L500.2500 ####[facility] [address] [place], [address] MCH (RBC) [Entitic mass] 25.2 pg Low 27.0-32.0 [facility] Comment on above: Performed By: #### L 501.2300, L501.5200, L100.0100, L500.2500 ####[facility] [address] [place], [address] MCHC (RBC) [Mass/Vol] 30.2 g/dL Low 32-36 [facility] Comment on above: Performed By: #### L 501.2300, L501.5200, L100.0100, L500.2500 ####[facility] [address] [place], [address] MCV (RBC) [Entitic vol] 83.4 fL Normal 80-94 [facility] Comment on above: Performed By: #### L 501.2300, L501.5200, L100.0100, L500.2500 ####[facility] [address] [place], [address] Monocytes/100 WBC (Bld) 6.1 % Normal 0-10 [facility] Comment on above: Performed By: #### L 501.2300, L501.5200, L100.0100, L500.2500 ####[facility] [address] [place], [address] Neutrophils/100 WBC (Bld) 72.3 % High 47-70 [facility] Comment on above: Performed By: #### L 501.2300, L501.5200, L100.0100, L500.2500 ####[facility] [address] [place], [address] Nucleated RBC (Bld) [#/Vol] 0 10*3/uL Normal 0-5 [facility] Comment on above: Performed By: #### L 501.2300, L501.5200, L100.0100, L500.2500 ####[facility] [address] [place], [address] Platelet mean volume (Bld) [Entitic vol] 9.5 fL Normal 6.2-12.0 [facility] Comment on above: Performed By: #### L 501.2300, L501.5200, L100.0100, L500.2500 ####[facility] [address] [place], [address] Platelets (Bld) [#/Vol] 156 10*3/uL Normal 150-450 [facility] Comment on above: Performed By: #### L 501.2300, L501.5200, L100.0100, L500.2500 ####[facility] [address] [place], [address] RBC (Bld) [#/Vol] 4.52 10*6/uL Low 4.6-6.2 [facility] Comment on above: Performed By: #### L 501.2300, L501.5200, L100.0100, L500.2500 ####[facility] [address] [place], [address] RDW SD 57.1 fl High 35.1-43.9 [facility] Comment on above: Performed By: #### L 501.2300, L501.5200, L100.0100, L500.2500 ####[facility] [address] [place], [address] WBC (Bld) [#/Vol] 9.0 10*3/uL Normal 4.4-11.0 [facility] Comment on above: Performed By: #### L 501.2300, L501.5200, L100.0100, L500.2500 ####[facility] [address] [place], [address] Discharge Instructionon 12-21 Discharge Instruction [facility] Medical Records Department [address] [place] [address] Instructions for Home/Discharge Instructions 01/01/24 1227 MR#: [id number] Acct: [id number] Name: DERRELL HOYT Rep #: [id number] : 1965 58 From: Chandu Pierson DO PCP: UNRULY Tamez Status:ADM IN Discharge Instructions Diet Discharge Diet: 1800 Calorie Control Diet Activity Discharge Activity: Return to Normal Activity Weight Bearing Status: Full weight bearing Follow Up Care Test Results: Test results from this visit will be discussed in further detail at your follow-up appointment, if applicable. Discharge Plan Admission Admit Date/Time: 12/30/23 17:07 Primary Reason for Your Visit: Cellulitis of the left leg Attending Provider: Chandu Pierson Primary Care Provider: Radha Barajas [employer] Consulting Providers: Marcellus Gunn; Ernesto Shultz Discharge Orders/Prescriptions Prescriptions: New ciprofloxacin HCl [Cipro] 500 mg tablet 500 mg PO BID Qty: 10 0RF Rx Instructions: start on 01/02/24 Continued sennosides-docusate sodium [Senna Plus] 8.6-50 mg tablet 2 tab PO QPM sotalol 120 mg tablet 120 mg PO Q12H tamsulosin 0.4 mg capsule 0.4 mg PO QHS acetaminophen [Tylenol Arthritis Pain] 650 mg tablet extended release 650 mg PO Q8H PRN (Reason: PAIN/FEVER) alum-mag hydroxide-simeth [Mylanta Maximum Strength] 400-400-40 mg/5 mL suspension 30 ml PO TID PRN (Reason: INDIGESTION ) guaifenesin [Mucinex] 600 mg tablet extended release 12hr 600 mg PO Q12H PRN (Reason: CONGESTION ) montelukast [Singulair] 10 mg tablet 10 mg PO QHS fluticasone propion-salmeterol [Advair HFA] 115-21 mcg/actuation HFA aerosol inhaler 2 puff inhalation BID melatonin 10 mg tablet 10 mg PO QHS (DME) blood sugar diagnostic Kit See Rx Instructions .Route Rx Instructions: As directed Deep Sea Nasal 0.65 % aerosol,spray 2 spray intranasal Q4H PRN (Reason: DRY NARES ) artifi.tears(hypromellos e)(PF) 1.7 % drops with applicator 1 drp ophthalmic (eye) Q6H PRN (Reason: DRY EYES ) omeprazole 20 mg capsule,delayed release(DR/EC) 20 mg PO DAILY Ozempic 2 mg/dose (8 mg/3 mL) pen injector 2 mg subcut TH potassium chloride 20 MEQ tablet 20 meq PO DAILYCM 0RF metformin 1,000 mg tablet 1,000 mg PO BID duloxetine 60 mg capsule,delayed release(DR/EC) 60 mg PO BID albuterol sulfate 90 mcg/actuation HFA aerosol inhaler 2 puff INHALATION Q4H PRN (Reason: SHORTNESS OF BREATH/WHEEZING ) trazodone 50 mg tablet 25 mg PO QHS atorvastatin 80 mg tablet 80 mg PO QHS levothyroxine 200 mcg tablet 200 mcg PO DAILY lisinopril 2.5 mg tablet 2.5 mg PO DAILY insulin glargine [Lantus Solostar U-100 Insulin] 100 unit/mL (3 mL) insulin pen 38 unit subcut QHS metoprolol tartrate 25 mg tablet 12.5 mg PO BID AmeriPhor Ointment 1 applic topical QHS Rx Instructions: APPLY ONE APPLICATION TOPICALLY TO BILATERAL LOWER EXTREMITIES AT BEDTIME nystatin 100,000 unit/gram powder 1 applic topical TID PRN (Reason: REDNESS/RASH) Rx Instructions: APPLY ONE APPLICATION TOPICALLY TO ABDOMINAL FOLDS THREE TIMES DAILY NEEDED FOR REDNESS/RASH furosemide 40 MG tablet 40 mg PO BID Discontinued omega-3 fatty acids 1,000 mg capsule 2,000 mg PO BID Referrals / Follow Up: Radha Barajas [employer]ER, [employer]BLER-C [Primary Care Provider] - Within 2 Weeks Disposition Disposition (needs filled in before D/C Order can be placed): Assisted Living 01/01/24 1243 Chandu Kenna CC: [employer]-C Radha Barajas; Dr. Ernesto Shultz MD; Dr. Marcellus Gunn MD Signed Normal [facility] Magnesiumon 01-01-2024 Magnesium [Mass/Vol] 2.1 mg/dL Normal 1.6-2.6 [facility] Comment on above: Result Comment: Slig ht Hemolysis, Result may be falsely increased. Performed By: #### L 501.2300, L501.5200, L100.0100, L500.2500 ####[facility] [address] [place], [address] Phosphoruson 01-01-2024 Phosphate [Mass/Vol] 3.0 mg/dL Normal 2.5-4.9 [facility] Comment on above: Performed By: #### L 501.2300, L501.5200, L100.0100, L500.2500 ####[facility] [address] [place], [address] Basic Metabolic Profile (BMP )on 12-31-2023 BUN/CRE 12.4 RATIO Normal 10-20 [facility] Comment on above: Performed By: #### L 500.2500, L100.0100 ####[facility] [address] [place], [address] CA,Total 8.5 mg/dL Normal 8.5-10.1 [facility] Comment on above: Performed By: #### L 500.2500, L100.0100 ####[facility] [address] [place], [address] Chloride [Moles/Vol] 100 mmol/L Normal 98-107 [facility] Comment on above: Performed By: #### L 500.2500, L100.0100 ####[facility] [address] [place], [address] CO2 [Moles/Vol] 30.0 mmol/L Normal 21.0-32.0 [facility] Comment on above: Performed By: #### L 500.2500, L100.0100 ####[facility] [address] [place], [address] Creatinine [Mass/Vol] 0.64 mg/dL Low 0.70-1.30 [facility] Comment on above: Result Comment: The validity of the calculated GFR GFRAA in patients over 70 years has not been determined. Clinical correlation is essential. Performed By: #### L 500.2500, L100.0100 ####[facility] [address] [place], [address] ECRCL 189.27 ml/min Normal [facility] Comment on above: Performed By: #### L 500.2500, L100.0100 ####[facility] [address] [place], [address] EST GFR - AA 164 mL/min Normal >60 [facility] Comment on above: Result Comment: Afri can Maltese GFR Calc Performed By: #### L 500.2500, L100.0100 ####[facility] [address] [place], [address] GAP 4 Low 5-15 [facility] Comment on above: Performed By: #### L 500.2500, L100.0100 ####[facility] [address] [place], [address] GFR/1.73 sq M.predicted among non-blacks MDRD (S/P/Bld) [Vol rate/Area] 136 mL/min/{1.73_m2} Normal >60 [facility] Comment on above: Result Comment: Non- GFR Calc Performed By: #### L 500.2500, L100.0100 ####[facility] [address] [place], [address] Glucose [Mass/Vol] 180 mg/dL High 74-106 [facility] Comment on above: Result Comment: Fast ing Glucose result greater than or equal to 126 mg/dL suggests DIABETES MELLITUS per A.D.A. criteria. Performed By: #### L 500.2500, L100.0100 ####[facility] [address] [place], [address] Potassium [Moles/Vol] 3.9 mmol/L Normal 3.5-5.1 [facility] Comment on above: Performed By: #### L 500.2500, L100.0100 ####[facility] [address] [place], [address] Sodium [Moles/Vol] 134 mmol/L Low 136-145 [facility] Comment on above: Performed By: #### L 500.2500, L100.0100 ####[facility] [address] [place], [address] Urea nitrogen [Mass/Vol] 8 mg/dL Normal 7-18 [facility] Comment on above: Performed By: #### L 500.2500, L100.0100 ####[facility] [address] [place], [address] Bedside Glucoseon 12-30-2023 FINGERSTICK GLU 202 mg/dL High 74-106 [facility] Comment on above: Result Comment: MELI GEMENT OF PATIENT CARE PER NURSING PROTOCOL Performed By: #### L 501.080 #### [facility] [address] [place], [address] FINGERSTICK GLU 217 mg/dL High 74-106 [facility] Comment on above: Result Comment: MELI GEMENT OF PATIENT CARE PER NURSING PROTOCOL Performed By: #### L 501.080 #### [facility] [address] [place], [address] FINGERSTICK GLU 209 mg/dL High 74-106 [facility] Comment on above: Result Comment: MELI GEMENT OF PATIENT CARE PER NURSING PROTOCOL Performed By: #### L 500.2500, L100.0100 #### [facility] [address] [place], [address] FINGERSTICK GLU 173 mg/dL High 74-106 [facility] Comment on above: Result Comment: MELI GEMENT OF PATIENT CARE PER NURSING PROTOCOL Performed By: #### L 501.080 ####[facility] [address] [place], [address] CBC W/Diff, Automatedon 07- 0-2023 Absolute Lymph 1.28 X10 3/uL Normal 0.83-4.51 [facility] Comment on above: Performed By: #### L 500.2500, L100.0100 #### [facility] [address] [place], [address] Absolute Neut 6.4 X10 3/uL Normal 2.0-7.7 [facility] Comment on above: Performed By: #### L 500.2500, L100.0100 #### [facility] [address] [place], [address] Basophils/100 WBC (Bld) 0.6 % Normal 0-1 [facility] Comment on above: Performed By: #### L 500.2500, L100.0100 #### [facility] [address] [place], [address] Eosinophils/100 WBC (Bld) 4.7 % Normal 0-5 [facility] Comment on above: Performed By: #### L 500.2500, L100.0100 #### [facility] [address] [place], [address] Erythrocyte distribution width (RBC) [Ratio] 19.3 % High 11.6-14.6 [facility] Comment on above: Performed By: #### L 500.2500, L100.0100 #### [facility] [address] [place], [address] Hematocrit (Bld) [Volume fraction] 40.0 % Normal 40-54 [facility] Comment on above: Performed By: #### L 500.2500, L100.0100 #### [facility] [address] [place], [address] Hemoglobin (Bld) [Mass/Vol] 11.8 g/dL Low 13.0-16.5 [facility] Comment on above: Performed By: #### L 500.2500, L100.0100 #### [facility] [address] [place], [address] IG% 0.500 Normal 0.0-0.9 [facility] Comment on above: Result Comment: IG% - Immature Granulocytes (promyelocytes, myelocytes and metamyelocytes) > 1% indicates that a LEFT SHIFT is Present. Performed By: #### L 500.2500, L100.0100 #### [facility] [address] [place], [address] Lymphocytes/100 WBC (Bld) 14.6 % Low 19-41 [facility] Comment on above: Performed By: #### L 500.2500, L100.0100 #### [facility] [address] [place], [address] MCH (RBC) [Entitic mass] 25.0 pg Low 27.0-32.0 [facility] Comment on above: Performed By: #### L 500.2500, L100.0100 #### [facility] [address] [place], [address] MCHC (RBC) [Mass/Vol] 29.5 g/dL Low 32-36 [facility] Comment on above: Performed By: #### L 500.2500, L100.0100 #### [facility] [address] [place], [address] MCV (RBC) [Entitic vol] 84.7 fL Normal 80-94 [facility] Comment on above: Performed By: #### L 500.2500, L100.0100 #### [facility] [address] [place], [address] Monocytes/100 WBC (Bld) 6.7 % Normal 0-10 [facility] Comment on above: Performed By: #### L 500.2500, L100.0100 #### [facility] [address] [place], [address] Neutrophils/100 WBC (Bld) 72.9 % High 47-70 [facility] Comment on above: Performed By: #### L 500.2500, L100.0100 #### [facility] [address] [place], [address] Nucleated RBC (Bld) [#/Vol] 0 10*3/uL Normal 0-5 [facility] Comment on above: Performed By: #### L 500.2500, L100.0100 #### [facility] [address] [place], [address] Platelet mean volume (Bld) [Entitic vol] 9.9 fL Normal 6.2-12.0 [facility] Comment on above: Performed By: #### L 500.2500, L100.0100 #### [facility] [address] [place], [address] Platelets (Bld) [#/Vol] 167 10*3/uL Normal 150-450 [facility] Comment on above: Performed By: #### L 500.2500, L100.0100 #### [facility] [address] [place], [address] RBC (Bld) [#/Vol] 4.72 10*6/uL Normal 4.6-6.2 [facility] Comment on above: Performed By: #### L 500.2500, L100.0100 #### [facility] [address] [place], [address] RDW SD 59.7 fl High 35.1-43.9 [facility] Comment on above: Performed By: #### L 500.2500, L100.0100 #### [facility] [address] [place], [address] WBC (Bld) [#/Vol] 8.8 10*3/uL Normal 4.4-11.0 [facility] Comment on above: Performed By: #### L 500.2500, L100.0100 #### [facility] [address] [place], [address] Vancomycin, Trough Levelon 0 12-31-2023 VANCO, TROUGH 14.5 ug/mL Normal 5.0-15.0 [facility] Comment on above: Order Comment: 1400 Result Comment: VANC OMYCIN STANDARED DRUG THERAPY TROUGH LEVEL: 5.0 - 15.0 mg/L VANCOMYCIN HIGH INTENSITY THERAPY TROUGH LEVEL: 15.0 - 20.0 mg/L High Intensity therapy recommended for serious life threatening infections include: - Meningitis -Endocarditis -Pneumonia (Ventilator/Healtcare Associated) -Sepsis PLEASE CONTACT PHARMACY SERVICES (#0740) FOR INTERPRETATION OF RESULTS. Performed By: #### L 501.8820 #### [facility] [address] [place], [address] Basic Metabolic Profile (BMP )on 12-30-2023 BUN/CRE 13.9 RATIO Normal 10-20 [facility] Comment on above: Performed By: #### L 500.2500, L100.0100 #### [facility] [address] [place], [address] CA,Total 8.9 mg/dL Normal 8.5-10.1 [facility] Comment on above: Performed By: #### L 500.2500, L100.0100 #### [facility] [address] [place], [address] Chloride [Moles/Vol] 95 mmol/L Low 98-107 [facility] Comment on above: Performed By: #### L 500.2500, L100.0100 #### [facility] [address] [place], [address] CO2 [Moles/Vol] 30.0 mmol/L Normal 21.0-32.0 [facility] Comment on above: Performed By: #### L 500.2500, L100.0100 #### [facility] [address] [place], [address] Creatinine [Mass/Vol] 0.72 mg/dL Normal 0.70-1.30 [facility] Comment on above: Result Comment: The validity of the calculated GFR GFRAA in patients over 70 years has not been determined. Clinical correlation is essential. Performed By: #### L 500.2500, L100.0100 #### [facility] [address] [place], [address] ECRCL 170.14 ml/min Normal [facility] Comment on above: Performed By: #### L 500.2500, L100.0100 #### [facility] [address] [place], [address] EST GFR - AA 144 mL/min Normal >60 [facility] Comment on above: Result Comment: Afri can Maltese GFR Calc Performed By: #### L 500.2500, L100.0100 #### [facility] [address] [place], [address] GAP 6 Normal 5-15 [facility] Comment on above: Performed By: #### L 500.2500, L100.0100 #### [facility] [address] [place], [address] GFR/1.73 sq M.predicted among non-blacks MDRD (S/P/Bld) [Vol rate/Area] 119 mL/min/{1.73_m2} Normal >60 [facility] Comment on above: Result Comment: Non- GFR Calc Performed By: #### L 500.2500, L100.0100 #### [facility] [address] [place], [address] Glucose [Mass/Vol] 253 mg/dL High 74-106 [facility] Comment on above: Result Comment: Gluc ose result greater than or equal to 200 mg/dL suggests DIABETES MELLITUS per A.D.A. criteria. Performed By: #### L 500.2500, L100.0100 #### [facility] [address] [place], [address] Potassium [Moles/Vol] 3.9 mmol/L Normal 3.5-5.1 [facility] Comment on above: Performed By: #### L 500.2500, L100.0100 #### [facility] [address] [place], [address] Sodium [Moles/Vol] 131 mmol/L Low 136-145 [facility] Comment on above: Performed By: #### L 500.2500, L100.0100 #### [facility] [address] [place], [address] Urea nitrogen [Mass/Vol] 10 mg/dL Normal 7-18 [facility] Comment on above: Performed By: #### L 500.2500, L100.0100 #### [facility] [address] [place], [address] Bedside Glucoseon --2023 FINGERSTICK GLU 190 mg/dL High 74-106 [facility] Comment on above: Result Comment: MELI CLINTON OF PATIENT CARE PER NURSING PROTOCOL Performed By: #### L 500.2500, L100.0100 #### [facility] [address] [place], [address] CBC W/Diff, Automatedon 07-0 Absolute Lymph 1.45 X10 3/uL Normal 0.83-4.51 [facility] Comment on above: Performed By: #### L 500.2500, L100.0100 #### [facility] [address] [place], [address] Absolute Neut 8.4 X10 3/uL High 2.0-7.7 [facility] Comment on above: Performed By: #### L 500.2500, L100.0100 #### [facility] [address] [place], [address] Basophils/100 WBC (Bld) 0.5 % Normal 0-1 [facility] Comment on above: Performed By: #### L 500.2500, L100.0100 #### [facility] [address] [place], [address] Eosinophils/100 WBC (Bld) 3.7 % Normal 0-5 [facility] Comment on above: Performed By: #### L 500.2500, L100.0100 #### [facility] [address] [place], [address] Erythrocyte distribution width (RBC) [Ratio] 19.3 % High 11.6-14.6 [facility] Comment on above: Performed By: #### L 500.2500, L100.0100 #### [facility] [address] [place], [address] Hematocrit (Bld) [Volume fraction] 37.6 % Low 40-54 [facility] Comment on above: Performed By: #### L 500.2500, L100.0100 #### [facility] [address] [place], [address] Hemoglobin (Bld) [Mass/Vol] 11.5 g/dL Low 13.0-16.5 [facility] Comment on above: Performed By: #### L 500.2500, L100.0100 #### [facility] [address] [place], [address] IG% 0.500 Normal 0.0-0.9 [facility] Comment on above: Result Comment: IG% - Immature Granulocytes (promyelocytes, myelocytes and metamyelocytes) > 1% indicates that a LEFT SHIFT is Present. Performed By: #### L 500.2500, L100.0100 #### [facility] [address] [place], [address] Lymphocytes/100 WBC (Bld) 13.1 % Low 19-41 [facility] Comment on above: Performed By: #### L 500.2500, L100.0100 #### [facility] [address] [place], [address] MCH (RBC) [Entitic mass] 25.1 pg Low 27.0-32.0 [facility] Comment on above: Performed By: #### L 500.2500, L100.0100 #### [facility] [address] [place], [address] MCHC (RBC) [Mass/Vol] 30.6 g/dL Low 32-36 [facility] Comment on above: Performed By: #### L 500.2500, L100.0100 #### [facility] [address] [place], [address] MCV (RBC) [Entitic vol] 82.1 fL Normal 80-94 [facility] Comment on above: Performed By: #### L 500.2500, L100.0100 #### [facility] [address] [place], [address] Monocytes/100 WBC (Bld) 6.2 % Normal 0-10 [facility] Comment on above: Performed By: #### L 500.2500, L100.0100 #### [facility] [address] [place], [address] Neutrophils/100 WBC (Bld) 76.0 % High 47-70 [facility] Comment on above: Performed By: #### L 500.2500, L100.0100 #### [facility] [address] [place], [address] Nucleated RBC (Bld) [#/Vol] 0 10*3/uL Normal 0-5 [facility] Comment on above: Performed By: #### L 500.2500, L100.0100 #### [facility] [address] [place], [address] Platelet mean volume (Bld) [Entitic vol] 9.5 fL Normal 6.2-12.0 [facility] Comment on above: Performed By: #### L 500.2500, L100.0100 #### [facility] [address] [place], [address] Platelets (Bld) [#/Vol] 164 10*3/uL Normal 150-450 [facility] Comment on above: Performed By: #### L 500.2500, L100.0100 #### [facility] [address] [place], [address] RBC (Bld) [#/Vol] 4.58 10*6/uL Low 4.6-6.2 [facility] Comment on above: Performed By: #### L 500.2500, L100.0100 #### [facility] [address] [place], [address] RDW SD 57.0 fl High 35.1-43.9 [facility] Comment on above: Performed By: #### L 500.2500, L100.0100 #### [facility] [address] [place], [address] WBC (Bld) [#/Vol] 11.1 10*3/uL High 4.4-11.0 [facility] Comment on above: Performed By: #### L 500.2500, L100.0100 #### [facility] [address] [place], [address] Emergency Department Summary on 12-30-2023 Emergency Department Summary [facility] Medical Records Department [address] [place] [address] Emergency Department Summary 12/30/23 MR#: [id number] Acct: [id number] Name: DERRELL HOYT Rep #: [id number] : 1965 58 From: Von Gutierrez DO PCP: Radha Barajas [employer] Status:ADM IN Location: [place] [address]-1 HPI History of Present Illness Chief Complaint: Lower Extremity Injury [facility] Medical History Lives in assisted living facility Wears glasses Wears dentures Depression Low iron Fatty liver Syncope Dietary restriction CPAP (continuous positive airway pressure) dependence Shortness of breath on exertion History of edema History of echocardiogram Cardiology follow-up encounter Tumor Atherosclerosis of coronary artery of [place] heart without angina pectoris Kidney stones COPD (chronic obstructive pulmonary disease) Former smoker Irregular heart beat NSVT (nonsustained ventricular tachycardia) Diabetes Asthma Hypothyroidism Hypertension Home Medications ???Medication ???Instructions ???Recorded ???Last Taken ???Type potassium chloride 20 mEq 20 meq PO DAILYCM SUPPLEMENT 04/23/19 12/30/23 Rx tablet,extended release(part/cryst) metformin 1,000 mg tablet 1,000 mg PO BID DIABETES 01/18/21 12/30/23 History sennosides 8.6 mg-docusate sodium 2 tab PO QPM CONSTIPATION 02/05/21 12/29/23 History 50 mg tablet (Senna Plus) sotalol 120 mg tablet 120 mg PO Q12H HEART ARRHYTHMIA 02/05/21 12/30/23 History tamsulosin 0.4 mg capsule 0.4 mg PO QHS PROSTATE 02/05/21 12/29/23 History albuterol sulfate 90 mcg/actuation 2 puff inhalation Q4H PRN 02/11/21 Unknown History aerosol inhaler SHORTNESS OF BREATH/WHEEZING duloxetine 60 mg capsule,delayed 60 mg PO BID DEPRESSION 05/22/21 12/30/23 History release montelukast 10 mg tablet 10 mg PO QHS ALLERGIES 01/10/22 12/29/23 History (Singulair) acetaminophen 650 mg 650 mg PO Q8H PRN PAIN/FEVER 02/04/22 Unknown History tablet,extended release (Tylenol Arthritis Pain) aluminum-mag hydroxide-simethicone 30 ml PO TID PRN INDIGESTION 02/04/22 11/18/23 History 400 mg-400 mg-40 mg/5 mL oral susp (Mylanta Maximum Strength) guaifenesin 600 mg tablet, 600 mg PO Q12H PRN CONGESTION 02/04/22 11/18/23 History extended release 12 hr (Mucinex) omega-3 fatty acids 1,000 mg 2,000 mg PO BID SUPPLEMENT 02/04/22 12/30/23 History capsule fluticasone propionate 115 2 puff inhalation BID COPD 07/31/22 12/30/23 History mcg-salmeterol 21 mcg/actuation HFA inhaler (Advair HFA) melatonin 10 mg tablet 10 mg PO QHS SLEEP 07/31/22 12/29/23 History artifi.tears(hypromellos e)(PF) 1.7 1 drp ophthalmic (eye) Q6H PRN DRY 11/25/22 Unknown History % eye drops with applicator EYES blood sugar diagnostic 11/25/22 Unknown History sodium chloride 0.65 % nasal spray 2 spray intranasal Q4H PRN DRY 11/25/22 Unknown History aerosol (Deep Sea Nasal) NARES omeprazole 20 mg capsule,delayed 20 mg PO DAILY GERD 10/22/23 12/30/23 History release semaglutide 2 mg/dose (8 mg/3 mL) 2 mg subcut TH DIABETES 10/22/23 12/25/23 History subcutaneous pen injector (Ozempic) trazodone 50 mg tablet 25 mg PO QHS SLEEP 11/05/23 12/29/23 History atorvastatin 80 mg tablet 80 mg PO QHS CHOLESTEROL 11/18/23 12/29/23 History insulin glargine 100 unit/mL (3 38 unit subcut QHS DIABETES 11/18/23 12/29/23 History mL) subcutaneous pen (Lantus Solostar U-100 Insulin) levothyroxine 200 mcg tablet 200 mcg PO DAILY THYROID 11/18/23 12/30/23 History lisinopril 2.5 mg tablet 2.5 mg PO DAILY BLOOD PRESSURE 11/18/23 12/30/23 History furosemide 40 mg tablet 40 mg PO BID EDEMA 12/30/23 12/30/23 History metoprolol tartrate 25 mg tablet 12.5 mg PO BID BLOOD PRESSURE 12/30/23 12/30/23 History mineral oil-hydrophil petrolat 1 applic topical QHS DRY SKIN 12/30/23 12/29/23 History topical ointment (AmeriPhor topical ointment) nystatin 100,000 unit/gram topical 1 applic topical TID PRN 12/30/23 Unknown History powder REDNESS/RASH Allergy/AdvReac Type Severity Reaction Status Date / Time No Known Allergies Allergy Verified 12/14/23 19:18 Family History Unknown Colon polyps Surgical History Hx of colonoscopy History of coronary artery stent placement (01/18/21) History of thyroidectomy Social History household members: other details: Assisted living housing: assisted living facility current occupational status: disabled Smoking Status: Former smoker how long ago did patient quit smokin years ago alcohol intake: never substance use type: does not use caffeine: Yes Type: carbonated beverages (more content not included)... Normal [facility] Extremity Lower without Cont raon 12-30-2023 Extremity Lower without Contra [facility] Services [address] [place] [address] Extremity Lower without Contra MR#: [id number] Acct: [id number] Name: DERRELL HOYT Rep #: [id number] : 1965 M 58 From: Benjamin Bishop DO PCP: UNRULY Tamez Status: ADM IN Study: Extremity Lower without Contra Date of Exam: 0 12/30/23 Exam# [id number] Ordering Dr: Von Gutierrez DO [id number] INDICATION: gangrene EXAMINATION: - CT Left Tibia/Fibula W/O Contrast Injection TECHNIQUE: Routine noncontrast bone CT protocol was performed of the left lower leg. 2-D reformats were performed by the technologist. The protocol utilizes one or more of the following dose reduction techniques: automated exposure control, adjustment of mA and/or kV according to patient size,and/or use of iterative reconstruction technique. IV Contrast dosage and agent: None. RADIATION DOSAGE (If Supplied By Facility): CTDIvol = ( 15.35 ) mGy, DLP = ( 887.21 ) mGycm COMPARISON: FINDINGS: SOFT TISSUES: There is lateral and posterior subcutaneous edema of the lower leg. Calcifications in the Hoffa''s fat pad. No subcutaneous emphysema. No drainable collection. No radiopaque foreign body. BONES/JOINTS: No acute fracture or subluxation. Focal sclerosis and possible osteochondral lesion of the lateral femoral condyle. Normal alignment. Preservation of the joint space. CT/Extremity Lower without Contra IMPRESSION: Subcutaneous edema. No drainable collection. Electronically Signed: Benjamin Bishop DO at 16:59 EDT , CC: [employer] Radha Barajas; Dr. Von Gutierrez DO Coating Mixer: Signed Normal [facility] H AND P Exam - [facility] 12-30-2023 H&P Exam - Hospitalist [facility] Medical Records Department [address] [place] [id number] H P Exam - Hospitalist 12/30/23 1705 MR#: [id number] Acct: [id number] Name: DERRELL HOYT Rep #: [id number] : 1965 58 From: Marcellus Gunn MD PCP: Radha Barajas, UNRULY Status:ADM IN Location: MS3 [id number] HPI - General General Date of Admission: 12/30/23 Date of Service: 12/30/23 Chief Complaint: Left leg yellowish discharge and crust, cellulitis for 4 weeks HPI Narrative DERRELL HOYT, is a 58 M with history of diabetes mellitus was sent to ED from [facility] for left leg cellulitis. Patient has increased swelling of left leg below knee level with erythema, yellowish discharge with crust and sometimes clear oozing of fluid. This has been ongoing for 4 weeks. Patient denies fever. Vitals in the ED in normal range. Mild leukocytosis. Patient had CT of the lower extremity which shows subcutaneous edema but no drainable collection. Venous Doppler study shows deep veins of left lower extremity are patent and compressible with no evidence of DVT [facility] Medical History Sleep apnea Lives in assisted living facility Wears glasses Wears dentures Depression Low iron Fatty liver Syncope Dietary restriction CPAP (continuous positive airway pressure) dependence Shortness of breath on exertion History of edema History of echocardiogram Cardiology follow-up encounter Tumor Atherosclerosis of coronary artery of [place] heart without angina pectoris Kidney stones COPD (chronic obstructive pulmonary disease) Former smoker Irregular heart beat NSVT (nonsustained ventricular tachycardia) Diabetes Asthma Hypothyroidism Hypertension Home Medications ???Medication ???Instructions ???Recorded ???Last Taken ???Type potassium chloride 20 mEq 20 meq PO DAILYCM SUPPLEMENT 04/23/19 12/30/23 Rx tablet,extended release(part/cryst) metformin 1,000 mg tablet 1,000 mg PO BID DIABETES 01/18/21 12/30/23 History sennosides 8.6 mg-docusate sodium 2 tab PO QPM CONSTIPATION 02/05/21 12/29/23 History 50 mg tablet (Senna Plus) sotalol 120 mg tablet 120 mg PO Q12H HEART ARRHYTHMIA 02/05/21 12/30/23 History tamsulosin 0.4 mg capsule 0.4 mg PO QHS PROSTATE 02/05/21 12/29/23 History albuterol sulfate 90 mcg/actuation 2 puff inhalation Q4H PRN 02/11/21 Unknown History aerosol inhaler SHORTNESS OF BREATH/WHEEZING duloxetine 60 mg capsule,delayed 60 mg PO BID DEPRESSION 05/22/21 12/30/23 History release montelukast 10 mg tablet 10 mg PO QHS ALLERGIES 01/10/22 12/29/23 History (Singulair) acetaminophen 650 mg 650 mg PO Q8H PRN PAIN/FEVER 02/04/22 Unknown History tablet,extended release (Tylenol Arthritis Pain) aluminum-mag hydroxide-simethicone 30 ml PO TID PRN INDIGESTION 02/04/22 11/18/23 History 400 mg-400 mg-40 mg/5 mL oral susp (Mylanta Maximum Strength) guaifenesin 600 mg tablet, 600 mg PO Q12H PRN CONGESTION 02/04/22 11/18/23 History extended release 12 hr (Mucinex) omega-3 fatty acids 1,000 mg 2,000 mg PO BID SUPPLEMENT 02/04/22 12/30/23 History capsule fluticasone propionate 115 2 puff inhalation BID COPD 07/31/22 12/30/23 History mcg-salmeterol 21 mcg/actuation HFA inhaler (Advair HFA) melatonin 10 mg tablet 10 mg PO QHS SLEEP 07/31/22 12/29/23 History artifi.tears(hypromellos e)(PF) 1.7 1 drp ophthalmic (eye) Q6H PRN DRY 11/25/22 Unknown History % eye drops with applicator EYES blood sugar diagnostic 11/25/22 Unknown History sodium chloride 0.65 % nasal spray 2 spray intranasal Q4H PRN DRY 11/25/22 Unknown History aerosol (Deep Sea Nasal) NARES omeprazole 20 mg capsule,delayed 20 mg PO DAILY GERD 10/22/23 12/30/23 History release semaglutide 2 mg/dose (8 mg/3 mL) 2 mg subcut TH DIABETES 10/22/23 12/25/23 History subcutaneous pen injector (Ozempic) trazodone 50 mg tablet 25 mg PO QHS SLEEP 11/05/23 12/29/23 History atorvastatin 80 mg tablet 80 mg PO QHS CHOLESTEROL 11/18/23 12/29/23 History insulin glargine 100 unit/mL (3 38 unit subcut QHS DIABETES 11/18/23 12/29/23 History mL) subcutaneous pen (Lantus Solostar U-100 Insulin) levothyroxine 200 mcg tablet 200 mcg PO DAILY THYROID 11/18/23 12/30/23 History lisinopril 2.5 mg tablet 2.5 mg PO DAILY BLOOD PRESSURE 11/18/23 12/30/23 History furosemide 40 mg tablet 40 mg PO BID EDEMA 12/30/23 12/30/23 History metoprolol tartrate 25 mg tablet 12.5 mg PO BID BLOOD PRESSURE 12/30/23 12/30/23 History mineral oil-hydrophil petrolat 1 applic topical QHS DRY SKIN 12/30/23 12/29/23 History topical ointment (AmeriPhor topical ointment) nystatin 100,000 unit/gram topical 1 applic topical TID PRN 12/30/23 Unknown History powder REDNESS/RASH Allergy/AdvReac Type Severity Reaction Status Date (more content not included)... Normal [facility] Lactic Acidon 12-30-2023 Lactate [Moles/Vol] 2.2 mmol/L Invalid Interpretation Code 0.4-1.9 [facility] Comment on above: Result Comment: Crit ical Result(s) Called at: 19:21:35 12/30/2023 by: Lucina Stout to Amber Perdomo. Results read back by same. Performed By: #### L 501.080 #### [facility] [address] [place], [address] Lactate [Moles/Vol] 2.5 mmol/L Invalid Interpretation Code 0.4-1.9 [facility] Comment on above: Order Comment: Y Result Comment: Crit ical Result(s) Called at: 14:52:02 12/30/2023 by: DANIELA GOTTLIEB to Bette Herron. Results read back by same. Performed By: #### L 503.6005 ####[facility] [address] [place], [address] MRSA Wound DNA by PCRon MRSA DNA ASSAY Negative Normal Negative [facility] Comment on above: Order Comment: Left leg Performed By: #### L 8200.1075 ####[facility] [address] [place], [address] SA DNA ASSAY Negative Normal Negative [facility] Comment on above: Order Comment: Left leg Performed By: #### L 8200.1075 ####[facility] [address] [place], [address] Venous Duplex US, Unilateral on 12-30-2023 Venous Duplex US, Unilateral [facility] [address] [place] [address] Venous Duplex US, Unilateral 12/30/23 1304 MR#: [id number] Acct: [id number] Name: DERRELL HOYT Rep #: [id number] : 1965 58 From: Alex Hart MD Attending Dr: Status: REG ER Ordering Dr: Von Gutierrez DO Date: 12/30/23 Location: ED Sex: M C Admitted: Reason For Study: LLE Swelling RIGHT LEFT FV is compressible, spontaneous, phasic, GSV is normal. competent and demonstrates normal CFV is compressible, spontaneous, phasic, augmentation. competent, and demonstrates normal Procedure augmentation. This is a venous duplex using B-mode, color FV is compressible, spontaneous, phasic, flow and spectral Doppler. competent and demonstrates normal Exam performed portable in ED. augmentation. The study was technically difficult. POP V is compressible, spontaneous, phasic, A preliminary report was called and/or faxed competent and demonstrates normal to ED RN Responsible for patient. augmentation. T/P Trunk is compressible. PTV is compressible. LT PerV is compressible. Unable to visualize distal PTV / Alin V due to wound. VL/Venous Duplex US, Unilateral Interpretation Summary Deep veins of the left lower extremity are patent and compressible segmentally. There is no evidence of left lower extremity deep vein thrombosis. The left great saphenous vein appears patent and compressible segmentally. Ordering Physician: Von Gutierrez Referring Physician: Radha Barajas Performed By: Trey Nettles, Ro 12/30/23 9430 Date Alex Hart MD CC: UNRULY Barajas; Dr. Von Gutierrez DO Date Dictated: 12/30/23 1304 Date Transcribed: 12/30/23 1624 Coating Mixer: Signed Normal [facility] -------- DERRELL HOYT ([id number]) 1965 M Date Time Provider Department 11/26/23 [facility] During your visit today, we recorded the following information about you: Bob Du, SOCIAL DIRECTOR.AGRICULTURAL SALES REPRESENTATIVE 11/26/2023 3:10 PM Signed Patient seen by Dr. Arroyo at [facility] for RVOT [place]. He was sent [...] instructed two times a day. - Fish Oil-[place]-3 Fatty Acids (FISH OIL) 340-1,000 mg cap [...] once daily (more content not included)... Normal [facility] Basic metabolic 2000 panelon 11-22-2023 Anion gap [Moles/Vol] 3 mmol/L Low 5-16 [facility] Comment on above: Order Comment: Speci men Type: BLOOD SPECIMEN Ordering Facility: [facility] Address: [address] [place] [address] Performed By: #### 3 4528-0, 13592-3 #### [facility] CLIA [id number] [address] [place] [address] [place] Calcium [Mass/Vol] 8.4 mg/dL Low 8.5-10.5 [facility] Comment on above: Order Comment: Speci men Type: BLOOD SPECIMEN Ordering Facility: [facility] Address: [address] [place] [address] Performed By: #### 3 4528-0, 42988-4 #### [facility] CLIA [id number] [address] [place] [address] [place] Chloride [Moles/Vol] 104 mmol/L Normal 98-107 [facility] Comment on above: Order Comment: Speci men Type: BLOOD SPECIMEN Ordering Facility: [facility] Address: [address] [place] [address] Performed By: #### 3 4528-0, 37686-1 #### [facility] CLIA [id number] [address] [place] [address] [place] CO2 [Moles/Vol] 32 mmol/L Normal 21-32 [facility] Comment on above: Order Comment: Speci men Type: BLOOD SPECIMEN Ordering Facility: [facility] Address: [address] [place] [address] Performed By: #### 3 4528-0, 79384-3 #### [facility] CLIA [id number] [address] [place] [address] [place] Creatinine [Mass/Vol] 0.61 mg/dL Normal 0.50-1.40 [facility] Comment on above: Order Comment: Speci men Type: BLOOD SPECIMEN Ordering Facility: [facility] Address: [address] [place] [address] Result Comment: Diane ents receiving either N-Acetylcysteine (NAC) or Metamizole prior to venipuncture, may have falsely depressed results. Performed By: #### 3 4528-0, 37620-3 #### [facility] CLIA [id number] [address] [place] [address] [place] Creatinine and Glomerular filtration rate.predicted panel (S/P/Bld) 111 mL/min/1.73m??? Normal >=60 [facility] Comment on above: Order Comment: Speci men Type: BLOOD SPECIMEN Ordering Facility: [facility] Address: [address] [place] [address] Result Comment: Sudha mated Glomerular Filtration Rate [...] actual GFR. Performed By: #### 3 4528-0, 69081-6 #### [facility] CLIA [id number] [address] [place] [address] [place] Glucose [Mass/Vol] 134 mg/dL High 70-100 [facility] Comment on above: Order Comment: Yogi plascencia Type: BLOOD SPECIMEN Ordering Facility: [facility] Address: [address] [place] [address] Result Comment: The [place] Diabetes Association (ADA) provides guidance for cutoff [...] Standards of Medical Care in Diabetes 2016, [place] Diabetes Association. Diabetes Care. 2016.39(Suppl 1). Results may be falsely elevated after the administration of Sulfapyridine. Results may be falsely depressed after the administration of Sulfasalazine. Performed By: #### 3 4528-0, 37113-6 #### [facility] CLIA [id number] [address] [place] [address] [place] Potassium [Moles/Vol] 4.2 mmol/L Normal 3.5-5.1 [facility] Comment on above: Order Comment: Yogi plascencia Type: BLOOD SPECIMEN Ordering Facility: [facility] Address: [address] [place] [address] Performed By: #### 3 4528-0, 58660-1 #### [facility] CLIA [id number] [address] [place] [address] [place] Sodium [Moles/Vol] 139 mmol/L Normal 136-145 [facility] Comment on above: Order Comment: Yogi plascencia Type: BLOOD SPECIMEN Ordering Facility: [facility] Address: [address] [place] [address] Performed By: #### 3 4528-0, 32692-0 #### [facility] CLIA [id number] [address] [place], [place] [address] [place] Urea nitrogen [Mass/Vol] 8 mg/dL Normal 7- [facility] Comment on above: Order Comment: Speci men Type: BLOOD SPECIMEN Ordering Facility: [facility] Address: [facility] [place] [address] Performed By: #### 3 4528-0, 52585-1 #### [facility] CLIA [id number] [address] [place], [place] [address] [place] CNDSon 11-22-2023 CNDS HNO ID: [id number] Author: AIXA PAEZ DO Service: Hospital Medicine [...] unit for close monitoring of NSVT with Cardiology/Electrophysio logy consultation to adjust medications, needed off lasix [...] No pending results Discharge Disposition Discharge Disposition: Half-Way For Intermediate Care/Assisted Living Activity When You [...] day monitor When: In: Chidi Arroyo MD [phone] [address] [facility] [address] PCP Requested Referral Additional Provider to Provider Information: Treatment Team: Attending Provider: Aixa Paez DO Consulting: Chidi Arroyo MD Attending: MR NILESH CALVIN Transitions of Care Critical Issues: SPECIALIST FOLLOW-UP: Cardiology LABS AND PROCEDURES PENDING AT DISCHARGE: No pending results. FOLLOW-UP APPOINTMENTS ALREADY SCHEDULED WITH A [facility] PROVIDER: No future appointments. ALLERGIES No [...] take this Lancet (more content not included)... [facility] ECG COMPLETEon 11-22-2023 ECG COMPLETE Ventricular Rate : 8 0 BPM Atrial Rate : 80 BPM P-R Interval : 190 ms QRS Duration : 92 ms Q-T Interval : 366 ms QTC Calculation(Bazett) : 422 ms Calculated P [place] : 5 degrees Calculated R [place] : 4 degrees Calculated T [place] : 28 degrees Normal sinus rhythm EKG done during metoprolol tartrate 75 mg po q12 hrs Normal ECG When compared with ECG of 21-Nov-2023 06:21, No significant change was found Confirmed by CHIDI ARROYO MD ([id number]) on 11/22/2023 9:45:33 AM NAME : DERRELL HOYT PID : [id number] : 1965 Gender : Male Race : Unknown ORD : [id number] Procedure Date : Nov 22 2023 06:46:11 Edit Date : Nov 22 2023 09:45:35 Diagnosis: Normal sinus rhythm EKG done during metoprolol tartrate 75 mg po q12 hrs Normal ECG When compared with ECG of 21-Nov-2023 06:21, No significant change was found Confirmed by CHIDI ARROYO MD ([id number]) on 11/22/2023 9:45:33 AM Test Reason : RT Location : 13 : [place] [address] Overread By : CHIDI ARROYO MD Edited By : CHIDI ARROYO MD Referred By : HONORIO OVALLE Acquired by : MIGUEL YODER [facility] Magnesium SerPl-mCncon 11-21 Magnesium [Mass/Vol] 2.1 mg/dL Normal 1.6-2.6 [facility] Comment on above: Order Comment: Speci men Type: BLOOD SPECIMEN Ordering Facility: [facility] Address: [address] [place] [address] Performed By: #### 3 4528-0, 40636-5 #### [facility] CLIA [id number] [address] [place], [place] [address] [place] BRIEF OP NOTon 11-21-2023 BRIEF OP NOT HNO ID: [id number] Author: CHIDI BOYER MD Service: Cardiovascular Medicine [...] s/p stent of the mid LAD performed [facility] 01/18/2021 (images available and single but no report available) who initially presented to [facility] with complaints of lightheadedness and dizziness found [...] with Dr. Arroyo or his previous EP charge hand at [facility] 5. Can be seen by either [facility] or [facility] charge hand approximately once yearly if requested. Chidi Boyer MD Normal [facility] Basic metabolic 2000 panelon 11-21-2023 Anion gap [Moles/Vol] 3 mmol/L Low 5-16 [facility] Comment on above: Order Comment: Speci men Type: BLOOD SPECIMEN Ordering Facility: [facility] Address: [address] [place] [address] Performed By: #### 3 4528-0, 72752-9 #### [facility] CLIA [id number] [address] [place] [address] [place] Calcium [Mass/Vol] 8.7 mg/dL Normal 8.5-10.5 [facility] Comment on above: Order Comment: Speci men Type: BLOOD SPECIMEN Ordering Facility: [facility] Address: [address] [place] [address] Performed By: #### 3 4528-0, 29841-4 #### [facility] CLIA [id number] [address] [place] [address] [place] Chloride [Moles/Vol] 103 mmol/L Normal 98-107 [facility] Comment on above: Order Comment: Speci men Type: BLOOD SPECIMEN Ordering Facility: [facility] Address: [address] [place] [address] Performed By: #### 3 4528-0, 52078-8 #### [facility] CLIA [id number] [address] [place] [address] [place] CO2 [Moles/Vol] 30 mmol/L Normal 21-32 [facility] Comment on above: Order Comment: Speci men Type: BLOOD SPECIMEN Ordering Facility: [facility] Address: [address] [place] [address] Performed By: #### 3 4528-0, 49186-1 #### [facility] CLIA [id number] [address] [place] [address] [place] Creatinine [Mass/Vol] 0.75 mg/dL Normal 0.50-1.40 [facility] Comment on above: Order Comment: Yogi plascencia Type: BLOOD SPECIMEN Ordering Facility: [facility] Address: [address] [place] [place] [address] Result Comment: Diane ents receiving either N-Acetylcysteine (NAC) or Metamizole prior to venipuncture, may have falsely depressed results. Performed By: #### 3 4528-0, 65297-2 #### [facility] CLIA [id number] [address] [place] [address] Creatinine and Glomerular filtration rate.predicted panel (S/P/Bld) 105 mL/min/1.73m??? Normal >=60 [facility] Comment on above: Order Comment: Yogi plascencia Type: BLOOD SPECIMEN Ordering Facility: [facility] Address: [address] [place] [address] Result Comment: Sudha mated Glomerular Filtration Rate [...] actual GFR. Performed By: #### 3 4528-0, 96903-0 #### [facility] CLIA [id number] [address] [place] [address] [place] Glucose [Mass/Vol] 145 mg/dL High 70-100 [facility] Comment on above: Order Comment: Yogi plascencia Type: BLOOD SPECIMEN Ordering Facility: [facility] Address: [address] [place] [address] Result Comment: The [place] Diabetes Association (ADA) provides guidance for cutoff [...] Standards of Medical Care in Diabetes 2016, [place] Diabetes [employer]. Diabetes Care. 2016.39(Suppl 1). Results may be falsely elevated after the administration of Sulfapyridine. Results may be falsely depressed after the administration of Sulfasalazine. Performed By: #### 3 4528-0, 61049-2 #### [facility] CLIA [id number] [address] [place] [address] [place] Potassium [Moles/Vol] 4.0 mmol/L Normal 3.5-5.1 [facility] Comment on above: Order Comment: Yogi plascencia Type: BLOOD SPECIMEN Ordering Facility: [facility] Address: [address] [place] [address] Performed By: #### 3 4528-0, 16749-5 #### [facility] CLIA [id number] [address] [place] [address] [place] Sodium [Moles/Vol] 136 mmol/L Normal 136-145 [facility] Comment on above: Order Comment: Yogi plascencia Type: BLOOD SPECIMEN Ordering Facility: [facility] Address: [address] [place] [address] Performed By: #### 3 4528-0, 93756-5 #### [facility] CLIA [id number] [address] [place] [address] [place] Urea nitrogen [Mass/Vol] 8 mg/dL Normal 7-26 [facility] Comment on above: Order Comment: Yogi plascencia Type: BLOOD SPECIMEN Ordering Facility: [facility] Address: [address] [place] [address] Performed By: #### 3 4528-0, 38161-6 #### [facility] CLIA [id number] [address] [place] [address] [place] CARD CATH DIAGNOSTICon 11-20 CARD CATH DIAGNOSTIC Site Id: [id number] Lab #: DEFAULT Study Date: 11/21/2023 Start Time: End Time: Name Duty Chidi Boyer MD PROC 1 Mayuri Sapp(R) PROC SCRUB 1 JbKia Tracey PROC SCRUB 2 Yadira Maria RN PROC CIRC 1 Carmen Lopez RN PROC RECORD 1 + + PATIENT INFORMATION + + Name: DRERELL HOYT : 1965 Age: 58 years Gender: M + -----+ CLINICAL HISTORY/INDICATIONS + -----+ Appropriate Use Criteria (Diag): Ventricular tachycardia with [...] s/p stent of the mid LAD performed [facility] 01/18/2021 (images available and single but no report available) who initially presented to [facility] with complaints of lightheadedness and dizziness found [...] with Dr. Arroyo or his previous EP charge hand at [facility] 5. Can be seen by either [facility] or [facility] charge hand approximately once yearly if requested. + + HEMODYNAMICS - XPER + + + +------ +-----+-------+-----+--- ---+------+ Measurement Name Sys Frandy End Frandy Mean A Wave V Wave + +------ +-----+-------+-----+--- ---+------+ AO 102.00 75.00 87.00 + +------ +-----+-------+-----+--- ---+------+ Oximetry: +----+----+ +--+---+--+ Time Site O2 Saturation O2 PO2 HB +----+----+ +--+---+--+ + + ADVERSE OUTCOME(s)/COMPLICATION( s) + + None + -------+ PROCEDURAL & TECHNICAL DETAILS + -------+ Date Time Description 11/21/2023 12:00:00 AM Sammie PRINCE *MEDICAL HISTORY* CAD Presentation: Symptoms Likely to [...] Dose 2 (more content not included)... Normal [facility] CBC panel Auto (Bld)on 11-20 Erythrocyte distribution width (RBC) [Ratio] 17.5 % High 11.5-15.0 [facility] Comment on above: Order Comment: Elpidioi temo Type: BLOOD SPECIMEN Order[facility] Facility[facility] Address: [address] [place] [address] Performed By: #### 3 4528-0, 54674-1 #### [facility] CLIA [id number] [address] [place] [address] [place] Hematocrit (Bld) [Volume fraction] 37.8 % Low 39.0-51.0 [facility] Comment on above: Order Comment: Yogi plascencia Type: BLOOD SPECIMEN Ordering Facility: [facility] Address: [address] [place] [address] Performed By: #### 3 4528-0, 50468-3 #### [facility] CLIA [id number] [address] [place] [address] [place] Hemoglobin (Bld) [Mass/Vol] 11.2 g/dL Low 13.0-17.0 [facility] Comment on above: Order Comment: Elpidioi men Type: BLOOD SPECIMEN Order[facility] Facility: [facility] Address: [address] [place] [address] Performed By: #### 3 4528-0, 86450-4 #### [facility] CLIA [id number] [address] [place] [address] [place] MCH (RBC) [Entitic mass] 24.0 pg Low 26.0-34.0 [facility] Comment on above: Order Comment: Elpidioi men Type: BLOOD SPECIMEN Order[facility] Facility: [facility] Address: [address] [place] [address] Performed By: #### 3 4528-0, 12324-2 #### [facility] CLIA [id number] [address] [place] [address] [place] MCHC (RBC) [Mass/Vol] 29.6 g/dL Low 30.5-36.0 [facility] Comment on above: Order Comment: Speci men Type: BLOOD SPECIMEN Ordering Facility: [facility] Address: [address] [place] [address] Performed By: #### 3 4528-0, 17260-9 #### [facility] CLIA [id number] [address] [place] [address] [place] MCV (RBC) [Entitic vol] 81.1 fL Normal 80.0-100.0 [facility] Comment on above: Order Comment: Speci men Type: BLOOD SPECIMEN Order[facility] Facility[facility] Address: [address] [place] [address] Performed By: #### 3 4528-0, 61705-3 #### [facility] CLIA [id number] [address] [place] [address] [place] Nucleated RBC (Bld) [#/Vol] 10*3/uL Normal <0.01 [facility] Comment on above: Order Comment: Speci men Type: BLOOD SPECIMEN Order[facility] Address: [address] [place] [address] Performed By: #### 3 4528-0, 30681-2 #### [facility] CLIA [id number] [address] [place] [address] [place] Platelet mean volume (Bld) [Entitic vol] 10.1 fL Normal 9.0-12.7 [facility] Comment on above: Order Comment: Speci men Type: BLOOD SPECIMEN Order[facility] Address: [address] [place] [address] Performed By: #### 3 4528-0, 96064-7 #### [facility] CLIA [id number] [address] [place] [address] [place] Platelets (Bld) [#/Vol] 179 10*3/uL Normal 150-400 [facility] Comment on above: Order Comment: Speci men Type: BLOOD SPECIMEN Ordering Facility: [facility] Address: [address] [place], [place] [address] Performed By: #### 3 4528-0, 05558-2 #### [facility] CLIA [id number] [address] [place], [place] [address] [facility] RBC (Bld) [#/Vol] 4.66 10*6/uL Normal 4.20-6.00 [facility] Comment on above: Order Comment: Speci men Type: BLOOD SPECIMEN Ordering Facility: [facility] Address: [address] [place], [place] [address] Performed By: #### 3 4528-0, 36078-1 #### [facility] CLIA [id number] [address] [place], [place] [address] [place] WBC (Bld) [#/Vol] 12.39 10*3/uL High 3.70-11.00 [facility] Comment on above: Order Comment: Speci men Type: BLOOD SPECIMEN Order[facility] Address: [address] [place], [place] [address] Performed By: #### 3 4528-0, 50899-3 #### [facility] CLIA [id number] [address] [place], [place] [address] [facility] OF [place] ECG COMPLETEon 11-21-2023 ECG COMPLETE Ventricular Rate : 8 0 BPM Atrial Rate : 80 BPM P-R Interval : 194 ms QRS Duration : 92 ms Q-T Interval : 376 ms QTC Calculation(Bazett) : 433 ms Calculated P [place] : 42 degrees Calculated R [place] : 7 degrees Calculated T [place] : 48 degrees Normal sinus rhythm Low voltage QRS Borderline ECG When compared with ECG of 20-Nov-2023 16:13, No PVC or ventricular couplets noted on current EKG Confirmed by JASON MORALES MD ([id number]) on 11/21/2023 4:48:08 PM NAME : DERRELL HOYT PID : [id number] : 1965 Gender : Male Race : Unknown ORD : [id number] Procedure Date : Nov 21 2023 06:21:33 Edit Date : Nov 21 2023 16:48:10 Diagnosis: Normal sinus rhythm Low voltage QRS Borderline ECG When compared with ECG of 20-Nov-2023 16:13, No PVC or ventricular couplets noted on current EKG Confirmed by JASON MORALES MD ([id number]) on 11/21/2023 4:48:08 PM Test Reason : RT Location : 13 : CCU [id number] Overread By : JASON MORALES MD Edited By : JASON MORALES MD Referred By : HONORIO OVALLE Acquired by : LAILA GRIER [facility] Hepatic function 2000 panelo n 11-21-2023 Albumin [Mass/Vol] 3.4 g/dL Normal 3.2-5.0 [facility] Comment on above: Order Comment: Speclivan plascencia Type: BLOOD SPECIMEN Order[facility] Address: [address] [place] [address] Performed By: #### 3 4528-0, 14378-3 #### [facility] CLIA [id number] [address] [place] [address] [place] ALP [Catalytic activity/Vol] 250 U/L High 45-117 [facility] Comment on above: Order Comment: Yogi plascencia Type: BLOOD SPECIMEN Order[facility] Address: [address] [place] [address] Performed By: #### 3 4528-0, 97098-6 #### [facility] CLIA [id number] [address] [place] [address] [place] ALT [Catalytic activity/Vol] 25 U/L Normal 13-61 [facility] Comment on above: Order Comment: Yogi plascencia Type: BLOOD SPECIMEN Order[facility] Facility[facility] Address: [address] [place] [address] Result Comment: Resu lts may be falsely depressed after the administration of Sulfasalazine and/or Sulfapyridine. Performed By: #### 3 4528-0, 72394-1 #### [facility] CLIA [id number] [address] [place] [address] [place] AST [Catalytic activity/Vol] 32 U/L Normal 8-34 [facility] Comment on above: Order Comment: Yogi plascencia Type: BLOOD SPECIMEN Order[facility] Facility[facility] Address: [address] [place], [place] [address] Result Comment: Resu lts may be falsely depressed after the administration of Sulfasalazine and/or Sulfapyridine. Performed By: #### 3 4528-0, 09509-5 #### [facility] CLIA [id number] [address] [place] [address] [place] Bilirubin [Mass/Vol] 0.5 mg/dL Normal 0.2-1.0 [facility] Comment on above: Order Comment: Speci men Type: BLOOD SPECIMEN Order[facility] Address: [address] [place] [address] Performed By: #### 3 4528-0, 29408-8 #### [facility] CLIA [id number] [address] [place] [address] [place] Bilirubin.conjugated [Mass/Vol] 0.2 mg/dL Normal 0.0-0.4 [facility] Comment on above: Order Comment: Speci men Type: BLOOD SPECIMEN Order[facility] Address: [address] [place], [place] [address] Performed By: #### 3 4528-0, 67781-4 #### [facility] CLIA [id number] [address] [place] [address] [place] Protein [Mass/Vol] 7.1 g/dL Normal 6.0-8.5 [facility] Comment on above: Order Comment: Speci men Type: BLOOD SPECIMEN Order[facility] Address: [address] [place] [address] Performed By: #### 3 4528-0, 47577-6 #### [facility] CLIA [id number] [address] [place] [address] [place] Magnesium SerPl-mCncon 11-20 Magnesium [Mass/Vol] 2.2 mg/dL Normal 1.6-2.6 [facility] Comment on above: Order Comment: Speci men Type: BLOOD SPECIMEN Order[facility] Address: [address] [place] [address] Performed By: #### 3 4528-0, 39154-9 #### [facility] CLIA [id number] [facility] [place] [id number] [place] Basic metabolic 2000 panelon 11-20-2023 Anion gap [Moles/Vol] 3 mmol/L Low 5-16 [facility] Comment on above: Order Comment: Speci men Type: BLOOD SPECIMENOrdering Facility: [facility] Address: [address] [place] [address] Performed By: #### 2 4321-2, 63358-8, ####[facility] [id number] [place] [address] [place] Calcium [Mass/Vol] 8.7 mg/dL Normal 8.5-10.5 [facility] Comment on above: Order Comment: Speci men Type: BLOOD SPECIMENOrdering Facility: [facility] Address: [address] [place] [address] Performed By: #### 2 4321-2, 24251-4, ####[facility] [id number] [place] [address] [place] Chloride [Moles/Vol] 102 mmol/L Normal 98-107 [facility] Comment on above: Order Comment: Speci men Type: BLOOD SPECIMENOrdering Facility: [facility] Address: [address] [place] [address] Performed By: #### 2 4321-2, 46449-4, ####[facility] [id number] [place] [address] [place] CO2 [Moles/Vol] 32 mmol/L Normal 21-32 [facility] Comment on above: Order Comment: Speci men Type: BLOOD SPECIMENOrdering Facility: [facility] Address: [address] [place] [address] Performed By: #### 2 4321-2, 00398-3, ####[facility] [id number] [place] [address] [place] Creatinine [Mass/Vol] 0.71 mg/dL Normal 0.50-1.40 [facility] Comment on above: Order Comment: Yogi plascencia Type: BLOOD SPECIMENOrdering Facility: [facility] Address: [address] [place] [id number] Result Comment: Diane ents receiving either N-Acetylcysteine (NAC) or Metamizole prior to venipuncture, may have falsely depressed results. Performed By: #### 2 4321-2, 45999-1, ####[facility]ATORYCLIA [id number] [place] [id number] [facility] Creatinine and Glomerular filtration rate.predicted panel (S/P/Bld) 106 mL/min/1.73m??? Normal >=60 [facility] Comment on above: Order Comment: Elpidioi temo Type: BLOOD SPECIMENOrdering Facility: [facility] Address: [address] [place] [address] Result Comment: Sudha mated Glomerular Filtration Rate [...] actual GFR. Performed By: #### 2 4321-2, 22004-2, ####[facility]ATORYCLIA [id number] [place] [id number] [place] Glucose [Mass/Vol] 145 mg/dL High 70-100 [facility] Comment on above: Order Comment: Yogi plascencia Type: BLOOD SPECIMENOrdering Facility: [facility] Address: [address] [place] [address] Result Comment: The [place] Diabetes Association (ADA) provides guidance for cutoff [...] Standards of Medical Care in Diabetes 2016, [place] Diabetes Association. Diabetes Care. 2016.39(Suppl 1). Results may be falsely elevated after the administration of Sulfapyridine. Results may be falsely depressed after the administration of Sulfasalazine. Performed By: #### 2 4321-2, 10116-3, ####[facility]ATORYCLIA [id number] [place] [address] [place] Potassium [Moles/Vol] 4.5 mmol/L Normal 3.5-5.1 [facility] Comment on above: Order Comment: Yogi plascencia Type: BLOOD SPECIMENOrdering Facility: [facility] Address: [address] [place] [place] [address] Performed By: #### 2 4321-2, 49039-7, ####[facility]ATORYCLIA [id number] [place] [address] [place] Sodium [Moles/Vol] 137 mmol/L Normal 136-145 [facility] Comment on above: Order Comment: Yoig plascencia Type: BLOOD SPECIMENOrdering Facility: [facility] Address: [address] [place] [address] Performed By: #### 2 4321-2, 04938-6, ####[facility]ORYCLIA [id number] [place] [id number] [place] Urea nitrogen [Mass/Vol] 8 mg/dL Normal 7-26 [facility] Comment on above: Order Comment: Yogi plascencia Type: BLOOD SPECIMENOrdering Facility: [facility] Address: [address] [place] [address] Performed By: #### 2 4321-2, 21829-7, ####[facility]ATORYCLIA [id number] [address] CBC panel Auto (Bld)on 11-19 Erythrocyte distribution width (RBC) [Ratio] 17.3 % High 11.5-15.0 [facility] Comment on above: Order Comment: Speci men Type: BLOOD SPECIMENOrdering Facility: [facility] Address: [address] [place] [address] Performed By: #### 5 8410-2 ####[facility]ORYCLIA [id number] [address] Hematocrit (Bld) [Volume fraction] 37.5 % Low 39.0-51.0 [facility] Comment on above: Order Comment: Speci men Type: BLOOD SPECIMENOrdering Facility: [facility] Address: [address] [place] [address] Performed By: #### 5 8410-2 ####[facility]ATORYCLIA [id number] [address] Hemoglobin (Bld) [Mass/Vol] 11.1 g/dL Low 13.0-17.0 [facility] Comment on above: Order Comment: Speci men Type: BLOOD SPECIMENOrdering Facility: [facility] Address: [address] [place] [address] Performed By: #### 5 8410-2 ####[facility]ATORYCLIA [id number] [address] [place] MCH (RBC) [Entitic mass] 23.6 pg Low 26.0-34.0 [facility] Comment on above: Order Comment: Speci men Type: BLOOD SPECIMENOrdering Facility: [facility] Address: [address] [place] [address] Performed By: #### 5 8410-2 ####[facility]ORYCLIA [id number] [address] [place] MCHC (RBC) [Mass/Vol] 29.6 g/dL Low 30.5-36.0 [facility] Comment on above: Order Comment: Speci men Type: BLOOD SPECIMENOrdering Facility: [facility] Address: [address] [place] [address] Performed By: #### 5 8410-2 ####[facility]ATORYCLIA [id number] [place] [id number] [place] MCV (RBC) [Entitic vol] 79.6 fL Low 80.0-100.0 [facility] Comment on above: Order Comment: Speci men Type: BLOOD SPECIMENOrdering Facility: [facility] Address: [address] [place] [address] Performed By: #### 5 8410-2 ####[facility]ORYCLIA [id number] [address] [place] Nucleated RBC (Bld) [#/Vol] 10*3/uL Normal <0.01 [facility] Comment on above: Order Comment: Speci men Type: BLOOD SPECIMENOrdering Facility: [facility] Address: [address] [place] [address] Performed By: #### 5 8410-2 ####[facility]ORYCLIA [id number] [place] [address] [place] Platelet mean volume (Bld) [Entitic vol] 10.0 fL Normal 9.0-12.7 [facility] Comment on above: Order Comment: Speci men Type: BLOOD SPECIMENOrdering Facility: [facility] Address: [address] [place] [address] Performed By: #### 5 8410-2 ####[facility]ATORYCLIA [id number] [place] [address] [place] Platelets (Bld) [#/Vol] 173 10*3/uL Normal 150-400 [facility] Comment on above: Order Comment: Speci men Type: BLOOD SPECIMENOrdering Facility: [facility] Address: [address] [place] [address] Performed By: #### 5 8410-2 ####[facility]ORYCLIA [id number] [place] [id number] [place] RBC (Bld) [#/Vol] 4.71 10*6/uL Normal 4.20-6.00 [facility] Comment on above: Order Comment: Speci men Type: BLOOD SPECIMENOrdering Facility: [facility] Address: [address] [place], [place] [address] Performed By: #### 5 8410-2 ####[facility]ATORYCLIA [id number] [place] [id number] [facility] WBC (Bld) [#/Vol] 9.70 10*3/uL Normal 3.70-11.00 [facility] Comment on above: Order Comment: Speci men Type: BLOOD SPECIMENOrdering Facility: [facility] Address: [address] [place], [place] [address] Performed By: #### 5 8410-2 ####[facility]ATORYCLIA [id number] [place] [id number] [facility] EKGon 11-20-2023 Electrocardiogram Ventricular Rate : 1 18 BPM Atrial Rate : 87 BPM P-R Interval : 212 ms QRS Duration : 88 ms Q-T Interval : 336 ms QTC Calculation(Bazett) : 470 ms Calculated P [place] : 55 degrees Calculated R [place] : 16 degrees Calculated T [place] : 57 degrees Sinus rhythm 1st degree AV block with frequent and consecutive Premature ventricular complexes Low voltage QRS Abnormal ECG When compared with ECG of 20-Nov-2023 09:06, Frequent PVC and PVC couplets noted on current EKG. Confirmed by JASON MORALES MD ([id number]) on 11/21/2023 4:43:02 PM NAME : DERRELL HOYT PID : [id number] : 1965 Gender : Male Race : [...] current EKG. Confirmed by JASON MORALES MD ([id number]) on 11/21/2023 4:43:02 PM Test Reason : RT Location : 13 : CCU CCU4 Overread By : JASON MORALES MD Edited By : JASON MORALES MD Referred By : CADY SANCHEZ Acquired by : PAULIE LICEA Normal [facility] HbA1c (Bld)on 11-20-2023 Average glucose Estimated from glycated hemoglobin (Bld) [Mass/Vol] 217 mg/dL Normal [facility] Comment on above: Order Comment: Yogi plascencia Type: BLOOD SPECIMEN [facility] Address: [address] [place] [address] Result Comment: eAG: (Estimated average glucose) is a calculated value from HgbA1c and is sales service representative of the average blood glucose level in the last 2-3 month period. Performed By: #### 3 4528-0, 80922-9 #### [facility] CLIA [id number] [address] [place] [address] [place] [facility] HbA1c (Bld) [Mass fraction] 9.2 % High 4.3-5.6 [facility] Comment on above: Order Comment: Yogi plascencia Type: BLOOD SPECIMEN [facility] Address: [address] [place] [address] Result Comment: [place] Diabetes Association guidelines indicate that patients with HgbA1c in the range 5.7-6.4% are at increased risk for development of diabetes, and intervention by lifestyle modification may be beneficial. HgbA1c greater or equal to 6.5% is considered diagnostic of diabetes. Performed By: #### 3 4528-0, 66815-3 #### [facility] CLIA [id number] [address] [place] [address] [place] Lipid 1996 panelon 4 Cholesterol [Mass/Vol] 90 mg/dL Normal 0-199 [facility] Comment on above: Order Comment: Yogi plascencia Type: BLOOD SPECIMENOrdering Facility: [facility] Address: [address] [place] [address] Result Comment: <200 mg/dL, Desirable 200-239 mg/dL, Borderline high >239 mg/dL, High Performed By: #### 2 4321-2, 08387-0, 77417-6 ####[facility]ATORYCLIA [id number] [address] Cholesterol in HDL [Mass/Vol] 24 mg/dL Low >40 [facility] Comment on above: Order Comment: Elpidiolivan plascencia Type: BLOOD SPECIMENOrdering Facility: [facility] Address: [address] [place] [address] Result Comment: 40-5 9 mg/dL, Acceptable >59 mg/dL, High: Negative risk factor for coronary heart disease <40 mg/dL, Low: Positive risk factor for coronary heart disease Performed By: #### 2 4321-2, 94512-4, ####[facility]ATORYCLIA [id number] [address] Cholesterol in LDL [Mass/Vol] 38 mg/dL Normal 0-129 [facility] Comment on above: Order Comment: Yogi temo Type: BLOOD SPECIMENOrdering Facility: [facility] Address: [address] [place] [address] Result Comment: <100 mg/dL, Optimal 100-129 mg/dL, Near optimal/above optimal 130-159 mg/dL, Borderline high 160-189 mg/dL, High >189 mg/dL, Very high Secondary prevention optimal LDL Cholesterol levels are recommended to be < 70 mg/dL Performed By: #### 2 4321-2, 32255-9, ####[facility]ORYCLIA [id number] [place] [id number] [facility] Cholesterol in LDL/Cholesterol in HDL [Mass ratio] 1.58 {ratio} Normal <2.54 [facility] Comment on above: Order Comment: Yogi plascencia Type: BLOOD SPECIMENOrdering Facility: [facility] Address: [address] [place] [address] Result Comment: Efraín dickerson: 1. National Cholesterol Education Program ATP III Guideline At-A-Glance Quick Desk Reference: National Heart, Lung, and Blood [place]. National Institutes of Health. 2001: NIH Publication No. 01-3305. 2. An International Atherosclerosis Society position paper: global recommendations for the management of dyslipidemia: executive summary, Atherosclerosis. 2014: 232(2):410-413. Performed By: #### 2 4321-2, 76740-5, ####[facility]ATORYCLIA [id number] [place] [id number] [facility] [place] Cholesterol in VLDL [Mass/Vol] 28 mg/dL Normal <30 [facility] Comment on above: Order Comment: Speci men Type: BLOOD SPECIMENOrdering Facility: [facility] Address: [address] [place] [address] Performed By: #### 2 4321-2, 85524-5, ####[facility]ORYCLIA [id number] [place] [id number] [facility] [place] Cholesterol non HDL [Mass/Vol] 66 mg/dL Normal <130 [facility] Comment on above: Order Comment: Speci men Type: BLOOD SPECIMENOrdering Facility: [facility] Address: [address] [place] [address] Result Comment: <130 mg/dL, Optimal 130-159 mg/dL, Near optimal/above optimal 160-189 mg/dL, Borderline high 190-219 mg/dL, High >219 mg/dL, Very high Secondary prevention optimal non HDL Cholesterol levels are recommended to be <100 mg/dL Performed By: #### 2 4321-2, 75337-8, ####[facility]ORYCLIA [id number] [place] [id number] [facility] Cholesterol.total/Dipti sterol in HDL [Mass ratio] 3.75 {ratio} Normal <5.10 [facility] Comment on above: Order Comment: Speci men Type: BLOOD SPECIMENOrdering Facility: [facility] Address: [address] [place] [address] Performed By: #### 2 4321-2, 45855-7, ####[facility]ORYCLIA [id number] [place] [id number] [facility] FASTING TIME 8 hours Normal [facility] Comment on above: Order Comment: Speci men Type: BLOOD SPECIMENOrdering Facility: [facility] Address: [address] [place] [address] Performed By: #### 2 4321-2, 12524-0, ####[facility]ORYCLIA [id number] [place] [id number] [place] Triglyceride [Mass/Vol] 140 mg/dL Normal 30-149 [facility] Comment on above: Order Comment: Speci men Type: BLOOD SPECIMENOrdering Facility: [facility] Address: [address] [place], [place] [address] Result Comment: <150 mg/dL, Normal 150-199 mg/dL, Borderline high 200-499 mg/dL, High >499 mg/dL, Very high Patients receiving either N-Acetylcysteine (NAC) or Metamizole prior to venipuncture, may have falsely depressed results. Performed By: #### 2 4321-2, 67931-9, ####[facility]ORYCLIA [id number] [place] [id number] [place] Magnesium SerPl-mCncon 11-19 Magnesium [Mass/Vol] 2.2 mg/dL Normal 1.6-2.6 [facility] Comment on above: Order Comment: Speci men Type: BLOOD SPECIMENOrdering Facility: [facility] Address: [address] [place] [address] Performed By: #### 2 4321-2, 36303-5, ####[facility]ATORYCLIA [id number] [place] [id number] [place] NM CARDIAC PERF STRESS/PHARM on 11-20-2023 NM CARDIAC PERF STRESS/PHARM * * *Final Report* * * DATE OF EXAM: Nov 20 2023 10:40AM N 0006 - NM CARDIAC PERF STRESS/PHARM / PROCEDURE REASON: Chest pain/anginal equiv, high CAD risk, treadmill candidate * * * * Physician Interpretation * * * * Stress Telecommunications Manager Report: [facility] Date of service: 11/20/2023 8:31:18 AM Supervising physician: Jason Morales MD PATIENT: Name: MR. DERRELL HOYT Age: 58 years Gender: M The supervising physician was in the department and immediately available. * * * Final * * * -- PATIENT: Name: MR. DERRELL HOYT Age: 58 [...] later. See administered radiotracer and doses below. [facility] Date of service: 11/20/2023 8:31:18 AM Ordering [...] * * * Final * * * -- Stress ECG Report: [facility] Date of service: 11/20/2023 8:31:18 AM Ordering physician: CADY SANCHEZ radiology specialist: Stephanie Flower Interpreting physician: Jason Morales [...] 138/75 mmHg. The double product achieved was [address]. Previ (more content not included)... Normal [facility] Urate SerPl-mCncon Urate [Mass/Vol] 6.6 mg/dL High 2.6-6.0 [facility] Comment on above: Order Comment: Yogi plascencia Type: BLOOD SPECIMENOrdering Facility: [facility] Address: [address] [place] [address] Result Comment: Diane ents receiving Metamizole prior to venipuncture, may have falsely depressed results. Performed By: #### 3 084-1 ####[facility]ATORYCLIA [id number] [place] [address] [place] Basic metabolic 2000 panelon 11-19-2023 Anion gap [Moles/Vol] 3 mmol/L Low 5-16 [facility] Comment on above: Order Comment: Yogi plascencia Type: BLOOD SPECIMEN [facility] Address: [address] [place] [address] Performed By: #### 1 995-0 #### [facility] CLIA [id number] [address] [place] [address] [place] Calcium [Mass/Vol] 9.2 mg/dL Normal 8.5-10.5 [facility] Comment on above: Order Comment: Yogi plascencia Type: BLOOD SPECIMEN [facility] Address: [address] [place] [address] Performed By: #### 1 995-0 #### [facility] CLIA [id number] [address] [place] [address] [place] Chloride [Moles/Vol] 101 mmol/L Normal 98-107 [facility] Comment on above: Order Comment: Yogi plascencia Type: BLOOD SPECIMEN [facility] Address: [address] [place] [address] Performed By: #### 1 995-0 #### [facility] CLIA [id number] [address] [place] [address] [place] CO2 [Moles/Vol] 31 mmol/L Normal 21-32 [facility] Comment on above: Order Comment: Speci temo Type: BLOOD SPECIMEN [facility] Address: [address] [place] [address] Performed By: #### 1 995-0 #### [facility] CLIA [id number] [address] [place] [address] [place] Creatinine [Mass/Vol] 0.61 mg/dL Normal 0.50-1.40 [facility] Comment on above: Order Comment: Speci men Type: BLOOD SPECIMEN [facility] Address: [address] [place] [address] Result Comment: Diane ents receiving either N-Acetylcysteine (NAC) or Metamizole prior to venipuncture, may have falsely depressed results. Performed By: #### 1 995-0 #### [facility] CLIA [id number] [address] [place] [address] [place] Creatinine and Glomerular filtration rate.predicted panel (S/P/Bld) 111 mL/min/1.73m??? Normal >=60 [facility] Comment on above: Order Comment: Speci men Type: BLOOD SPECIMEN [facility] Address: [address] [place] [address] Result Comment: Sudha mated Glomerular Filtration Rate [...] GFR. Performed By: #### 1 995-0 #### [facility] CLIA [id number] [address] [place] [address] [place] Glucose [Mass/Vol] 113 mg/dL High 70-100 [facility] Comment on above: Order Comment: Speci men Type: BLOOD SPECIMEN [facility] Address: [address] [place] [id number] Result Comment: The [place] Diabetes Association (ADA) provides guidance for cutoff [...] Standards of Medical Care in Diabetes 2016, [place] Diabetes Association. Diabetes Care. 2016.39(Suppl 1). Results may be falsely elevated after the administration of Sulfapyridine. Results may be falsely depressed after the administration of Sulfasalazine. Performed By: #### 1 995-0 #### [facility] CLIA [id number] [address] [place] [address] [place] Potassium [Moles/Vol] 3.8 mmol/L Normal 3.5-5.1 [facility] Comment on above: Order Comment: Yogi plascencia Type: BLOOD SPECIMEN [facility] Address: [address] [place] [address] Performed By: #### 1 995-0 #### [facility] CLIA [id number] [address] [place] [address] [place] Sodium [Moles/Vol] 135 mmol/L Low 136-145 [facility] Comment on above: Order Comment: Yogi plascencia Type: BLOOD SPECIMEN [facility] Address: [address] [place] [id number] Performed By: #### 1 995-0 #### [facility] CLIA [id number] [address] [place] [address] [place] Urea nitrogen [Mass/Vol] 9 mg/dL Normal 7-26 [facility] Comment on above: Order Comment: Elpidioi men Type: BLOOD SPECIMEN [facility] Address: [address] [place] [address] Performed By: #### 1 995-0 #### [facility] CLIA [id number] [address] [place] [address] [place] CBC W Auto Differential pane l (Bld)on 11-19-2023 Basophils (Bld) [#/Vol] 0.05 10*3/uL Normal <0.11 [facility] Comment on above: Order Comment: Speci men Type: BLOOD SPECIMEN [facility] Address: [address] [place] [address] Performed By: #### 1 995-0 #### [facility] CLIA [id number] [address] [place] [address] [place] Basophils/100 WBC (Bld) 0.4 % Normal [facility] Comment on above: Order Comment: Speci men Type: BLOOD SPECIMEN [facility] Address: [address] [place] [address] Performed By: #### 1 995-0 #### [facility] CLIA [id number] [address] [place] [address] [place] Differential cell count method Nom (Bld) Auto Normal [facility] Comment on above: Order Comment: Speci men Type: BLOOD SPECIMEN [facility] Address: [address] [place] [address] Performed By: #### 1 995-0 #### [facility] CLIA [id number] [address] [place] [address] [place] Eosinophils (Bld) [#/Vol] 0.42 10*3/uL Normal <0.46 [facility] Comment on above: Order Comment: Speci men Type: BLOOD SPECIMEN [facility] Address: [address] [place] [address] Performed By: #### 1 995-0 #### [facility] CLIA [id number] [address] [place] [address] [place] Eosinophils/100 WBC (Bld) 3.3 % Normal [facility] Comment on above: Order Comment: Speci men Type: BLOOD SPECIMEN [facility] Address: [address] [place] [address] Performed By: #### 1 995-0 #### [facility] CLIA [id number] [address] [place] [address] [place] Erythrocyte distribution width (RBC) [Ratio] 17.7 % High 11.5-15.0 [facility] Comment on above: Order Comment: Speci men Type: BLOOD SPECIMEN [facility] Address: [address] [place] [address] Performed By: #### 1 995-0 #### [facility] CLIA [id number] [address] [place] [address] [place] Hematocrit (Bld) [Volume fraction] 39.5 % Normal 39.0-51.0 [facility] Comment on above: Order Comment: Speci men Type: BLOOD SPECIMEN [facility] Address: [address] [place] [address] Performed By: #### 1 995-0 #### [facility] CLIA [id number] [address] [place] [address] [place] Hemoglobin (Bld) [Mass/Vol] 12.1 g/dL Low 13.0-17.0 [facility] Comment on above: Order Comment: Speci men Type: BLOOD SPECIMEN [facility] Address: [address] [place] [address] Performed By: #### 1 995-0 #### [facility] CLIA [id number] [address] [place] [address] [place] Immature granulocytes (Bld) [#/Vol] 0.06 10*3/uL Normal <0.10 [facility] Comment on above: Order Comment: Speci men Type: BLOOD SPECIMEN [facility] Address: [address] [place] [address] Performed By: #### 1 995-0 #### [facility] CLIA [id number] [address] [place] [address] [place] Immature granulocytes/100 WBC (Bld) 0.5 % Normal [facility] Comment on above: Order Comment: Speci men Type: BLOOD SPECIMEN [facility] Address: [address] [place] [address] Performed By: #### 1 995-0 #### [facility] CLIA [id number] [address] [place] [address] [place] Lymphocytes (Bld) [#/Vol] 2.44 10*3/uL Normal 1.00-4.00 [facility] Comment on above: Order Comment: Speci men Type: BLOOD SPECIMEN [facility] Address: [address] [place] [address] Performed By: #### 1 995-0 #### [facility] CLIA [id number] [address] [place] [address] [place] Lymphocytes/100 WBC (Bld) 19.3 % Normal [facility] Comment on above: Order Comment: Speci men Type: BLOOD SPECIMEN [facility] Address: [address] [place] [address] Performed By: #### 1 995-0 #### [facility] [place] [id number] [address] [place] [address] [place] MCH (RBC) [Entitic mass] 23.9 pg Low 26.0-34.0 [facility] Comment on above: Order Comment: Speci men Type: BLOOD SPECIMEN [facility] Address: [address] [place] [address] Performed By: #### 1 995-0 #### [facility] CLIA [id number] [address] [place] [address] [place] MCHC (RBC) [Mass/Vol] 30.6 g/dL Normal 30.5-36.0 [facility] Comment on above: Order Comment: Speci men Type: BLOOD SPECIMEN [facility] Address: [address] [place], [place] [id number] Performed By: #### 1 995-0 #### [facility] CLIA [id number] [address] [place] [address] [place] MCV (RBC) [Entitic vol] 77.9 fL Low 80.0-100.0 [facility] Comment on above: Order Comment: Speci men Type: BLOOD SPECIMEN Ordering Facility: [facility] Address: [address] [place] [address] Performed By: #### 1 995-0 #### [facility] CLIA [id number] [address] [place] [address] [place] Monocytes (Bld) [#/Vol] 0.88 10*3/uL High <0.87 [facility] Comment on above: Order Comment: Speci men Type: BLOOD SPECIMEN Ordering Facility: [facility] Address: [address] [place] [address] Performed By: #### 1 995-0 #### [facility] CLIA [id number] [address] [place] [address] [place] Monocytes/100 WBC (Bld) 6.9 % Normal [facility] Comment on above: Order Comment: Speci men Type: BLOOD SPECIMEN Ordering Facility: [facility] Address: [address] [place] [address] Performed By: #### 1 995-0 #### [facility] CLIA [id number] [address] [place] [address] [place] Neutrophils (Bld) [#/Vol] 8.82 10*3/uL High 1.45-7.50 [facility] Comment on above: Order Comment: Speci men Type: BLOOD SPECIMEN Ordering Facility: [facility] Address: [address] [place] [address] Performed By: #### 1 995-0 #### [facility] CLIA [id number] [address] [place], [place] [address] [place] Neutrophils/100 WBC (Bld) 69.6 % Normal [facility] Comment on above: Order Comment: Speci men Type: BLOOD SPECIMEN Ordering Facility: [facility] Address: [address] [place] [address] Performed By: #### 1 995-0 #### [facility] CLIA [id number] [address] [place] [address] [place] Nucleated RBC (Bld) [#/Vol] 10*3/uL Normal <0.01 [facility] Comment on above: Order Comment: Speci men Type: BLOOD SPECIMEN Ordering Facility: [facility] Address: [address] [place] [address] Performed By: #### 1 995-0 #### [facility] CLIA [id number] [address] [place] [address] [place] Nucleated RBC/100 WBC (Bld) [Ratio] 0.0 /100 WBC Normal [facility] Comment on above: Order Comment: Speci men Type: BLOOD SPECIMEN Ordering Facility: [facility] Address: [address] [place] [address] Performed By: #### 1 995-0 #### [facility] CLIA [id number] [address] [place] [address] [place] Platelet mean volume (Bld) [Entitic vol] 10.1 fL Normal 9.0-12.7 [facility] Comment on above: Order Comment: Speci men Type: BLOOD SPECIMEN Ordering Facility: [facility] Address: [address] [place] [address] Performed By: #### 1 995-0 #### [facility] CLIA [id number] [address] [place] [address] [place] Platelets (Bld) [#/Vol] 193 10*3/uL Normal 150-400 [facility] Comment on above: Order Comment: Speci men Type: BLOOD SPECIMEN Ordering Facility: [facility] Address: [address] [place] [address] Performed By: #### 1 995-0 #### [facility] CLIA [id number] [address] [place] [address] [place] RBC (Bld) [#/Vol] 5.07 10*6/uL Normal 4.20-6.00 [facility] Comment on above: Order Comment: Speci men Type: BLOOD SPECIMEN Ordering Facility: [facility] Address: [address] [place], [place] [address] Performed By: #### 1 995-0 #### [facility] CLIA [id number] [address] [place], [place] [address] [facility] [place] WBC (Bld) [#/Vol] 12.67 10*3/uL High 3.70-11.00 [facility] Comment on above: Order Comment: Speci men Type: BLOOD SPECIMEN Ordering Facility: [facility] Address: [address] [place], [place] [address] Performed By: #### 1 995-0 #### [facility] CLIA [id number] [address] [place], [place] [address] [facility] ECG COMPLETEon 11-19-2023 ECG COMPLETE Ventricular Rate : 8 5 BPM Atrial Rate : 85 BPM P-R Interval : 182 ms QRS Duration : 90 ms Q-T Interval : 376 ms QTC Calculation(Bazett) : 447 ms Calculated P [place] : 36 degrees Calculated R [place] : 13 degrees Calculated T [place] : 42 degrees Normal sinus rhythm Low voltage QRS Borderline ECG When compared with ECG of 18-Nov-2023 23:05, No significant change was found Confirmed by JASON MORALES MD ([id number]) on 11/21/2023 3:34:16 PM NAME : DERRELL HOYT PID : [id number] : 1965 Gender : Male Race : Unknown ORD : [id number] Procedure Date : Nov 19 2023 06:07:47 Edit Date : Nov 21 2023 15:34:19 Diagnosis: Normal sinus rhythm Low voltage QRS Borderline ECG When compared with ECG of 18-Nov-2023 23:05, No significant change was found Confirmed by JASON MORALES MD ([id number]) on 11/21/2023 3:34:16 PM Test Reason : RT Location : 13 : U CCU Overread By : JASON MORALES MD Edited By : MORALES MD,JASON Referred By : HONORIO OVALLE Acquired by : OMAR SIM Normal [facility] ECHOon 11-19-2023 Echocardiography Echocardiography Rep ort: Transthoracic Echo [facility] Date of service: 11/19/2023 9:10:02 AM Ordering [...] than 50 percent with inspiration. MITRAL VALVE [place] mitral valve. There is no mitral stenosis. [...] deceleration time is 248 msec. TRICUSPID VALVE [place] tricuspid valve. There is no tricuspid stenosis. [...] * * Final * * * CC [employer] [facility] : [id number] Normal [facility] Ferritin SerPl-mCncon 2023 Ferritin [Mass/Vol] 12.5 ng/mL Low 24.0-388.0 [facility] Comment on above: Order Comment: Yogi plascencia Type: BLOOD SPECIMEN Ordering Facility: [facility] Address: [address] [place] [address] Performed By: #### 1 995-0 #### [facility] CLIA [id number] [address] [place], [place] [address] [place] Gas and Carbon monoxide pane l (BldV)on 11-19-2023 Base excess Calc (BldV) [Moles/Vol] 2 mmol/L Normal 0-2 [facility] Comment on above: Order Comment: Elpidioi men Type: BLOOD SPECIMEN Ordering Facility: [facility] Address: [address] [place] [address] Performed By: #### 1 995-0 #### [facility] CLIA [id number] [address] [place], [place] [address] [place] Body temperature 98.06 [degF] [facility] Comment on above: Order Comment: Speci men Type: BLOOD SPECIMEN Ordering Facility: [facility] Address: [address] [place] [address] Performed By: #### 1 995-0 #### [facility] CLIA [id number] [address] [place], [place] [address] [place] Calcium.ionized (Bld) [Mass/Vol] 1.09 mmol/L Normal 1.08-1.30 [facility] Comment on above: Order Comment: Speci men Type: BLOOD SPECIMEN Ordering Facility: [facility] Address: [address] [place] [address] Performed By: #### 1 995-0 #### [facility] CLIA [id number] [address] [place] [address] [place] Carboxyhemoglobin (BldV) [Mass fraction] 2.2 % High 0.0-2.0 [facility] Comment on above: Order Comment: Speci men Type: BLOOD SPECIMEN Ordering Facility: [facility] Address: [address] [place] [address] Result Comment: Carb oxyhemoglobin Reference Range for Smokers: 2.0-8.0% Performed By: #### 1 995-0 #### [facility] CLIA [id number] [address] [place] [address] [place] CO2 (BldV) [Partial pressure] 43 mm[Hg] Normal 42-55 [facility] Comment on above: Order Comment: Speci men Type: BLOOD SPECIMEN Ordering Facility: [facility] Address: [address] [place] [address] Performed By: #### 1 995-0 #### [facility] CLIA [id number] [address] [place] [address] CO2 adjusted to patient's actual temperature (BldV) [Partial pressure] Normal [facility] Comment on above: Order Comment: Speci men Type: BLOOD SPECIMEN Ordering Facility: [facility] Address: [address] [place] [address] Performed By: #### 1 995-0 #### [facility] CLIA [id number] [address] [place] [address] [place] Glucose [Mass/Vol] 109 mg/dL High 60-105 [facility] Comment on above: Order Comment: Speci men Type: BLOOD SPECIMEN Ordering Facility: [facility] Address: [address] [place] [address] Performed By: #### 1 995-0 #### [facility] CLIA [id number] [address] [place] [address] [place] HCO3 (Bld) [Moles/Vol] 27 mmol/L Normal 24-28 [facility] Comment on above: Order Comment: Speci men Type: BLOOD SPECIMEN Ordering Facility: [facility] Address: [address] [place] [address] Performed By: #### 1 995-0 #### [facility] CLIA [id number] [address] [place] [address] [place] Hemoglobin (Bld) [Mass/Vol] 13.5 g/dL Normal 13.0-17.0 [facility] Comment on above: Order Comment: Speci men Type: BLOOD SPECIMEN Ordering Facility: [facility] Address: [address] [place] [address] Performed By: #### 1 995-0 #### [facility] CLIA [id number] [address] [place] [address] [place] Lactate [Moles/Vol] 1.7 mmol/L Normal 0.5-2.2 [facility] Comment on above: Order Comment: Speci men Type: BLOOD SPECIMEN Ordering Facility: [facility] Address: [address] [place] [address] Performed By: #### 1 995-0 #### [facility] CLIA [id number] [address] [place] [address] [place] Methemoglobin (Bld) [Mass fraction] 0.2 % Normal 0.0-1.5 [facility] Comment on above: Order Comment: Speci men Type: BLOOD SPECIMEN Ordering Facility: [facility] Address: [address] [place] [address] Performed By: #### 1 995-0 #### [facility] CLIA [id number] [address] [place] [address] [place] O2 THERAPY RA=Room Air Normal [facility] Comment on above: Order Comment: Speci men Type: BLOOD SPECIMEN Ordering Facility: [facility] Address: [address] [place] [address] Performed By: #### 1 995-0 #### [facility] CLIA [id number] [address] [place], [place] [address] [place] Oxygen (BldV) [Partial pressure] 98 mm[Hg] High 35-45 [facility] Comment on above: Order Comment: Speci men Type: BLOOD SPECIMEN Ordering Facility: [facility] Address: [address] [place] [address] Performed By: #### 1 995-0 #### [facility] CLIA [id number] [address] [place] [address] [place] Oxygen adjusted to patient's actual temperature (BldV) [Partial pressure] Normal [facility] Comment on above: Order Comment: Speci men Type: BLOOD SPECIMEN Ordering Facility: [facility] Address: [address] [place] [address] Performed By: #### 1 995-0 #### [facility] [place] [id number] [address] [place] [address] [place] Oxygen saturation in Venous blood 94 % High 60-85 [facility] Comment on above: Order Comment: Speci men Type: BLOOD SPECIMEN Ordering Facility: [facility] Address: [address] [place] [address] Performed By: #### 1 995-0 #### [facility] [place] [id number] [address] [place] [address] [place] Oxyhemoglobin (BldV) [Mass fraction] 94 % Normal 4-98 [facility] Comment on above: Order Comment: Speci men Type: BLOOD SPECIMEN Ordering Facility: [facility] Address: [address] [place] [address] Performed By: #### 1 995-0 #### [facility] [place] [id number] [address] [place] [address] [place] pH (BldV) 7.42 [pH] Normal 7.32-7.42 [facility] Comment on above: Order Comment: Speci men Type: BLOOD SPECIMEN Ordering Facility: [facility] Address: [address] [place] [address] Performed By: #### 1 995-0 #### [facility] CLIA [id number] [address] [place] [address] STATES [facility] pH adjusted to patient's actual temperature (BldV) Normal [facility] Comment on above: Order Comment: Speci men Type: BLOOD SPECIMEN Ordering Facility: [facility] Address: [address] [place] [address] Performed By: #### 1 995-0 #### [facility] CLIA [id number] [address] [place] [address] [place] Potassium [Moles/Vol] 3.8 mmol/L Normal 2.5-6.0 [facility] Comment on above: Order Comment: Speci men Type: BLOOD SPECIMEN Ordering Facility: [facility] Address: [address] [place] [address] Performed By: #### 1 995-0 #### [facility] CLIA [id number] [address] [place] [address] STATES [facility] Sodium [Moles/Vol] 136 mmol/L Normal 136-144 [facility] Comment on above: Order Comment: Speci men Type: BLOOD SPECIMEN Ordering Facility: [facility] Address: [address] [place] [address] Performed By: #### 1 995-0 #### [facility] CLIA [id number] [address] [place] [address] Iron and Iron binding capaci ty panelon 11-19-2023 Iron [Mass/Vol] 26 ug/dL Low 65-175 [facility] Comment on above: Order Comment: Speci men Type: BLOOD SPECIMEN Ordering Facility: [facility] Address: [address] [place] [address] Result Comment: Diane ents treated with metal-binding drugs (e.g.deferoxamine) may have depressed iron values, as chelated iron may not properly react in the Siemens iron assay. Performed By: #### 1 995-0 #### [facility] CLIA [id number] [address] [place] [address] [place] Iron binding capacity [Mass/Vol] 329 ug/dL Normal 221-481 [facility] Comment on above: Order Comment: Speci men Type: BLOOD SPECIMEN Ordering Facility: [facility] Address: [address] [place] [address] Performed By: #### 1 995-0 #### [facility] CLIA [id number] [address] [place] [address] [facility] [place] Iron/TIBC [Molar ratio] 7.9 % Low 22.0-44.0 [facility] Comment on above: Order Comment: Speci men Type: BLOOD SPECIMEN Ordering Facility: [facility] Address: [address] [place] [address] Performed By: #### 1 995-0 #### [facility] CLIA [id number] [address] [place] [address] [place] Magnesium SerPl-mCncon 11-18 Magnesium [Mass/Vol] 1.9 mg/dL Normal 1.6-2.6 [facility] Comment on above: Order Comment: Speci men Type: BLOOD SPECIMEN Ordering Facility: [facility] Address: [address] [place] [address] Performed By: #### 1 995-0 #### [facility] CLIA [id number] [address] [place] [address] [place] T3Free SerPl-mCncon 11-19-19 24 Free T3 [Mass/Vol] 2.2 pg/mL Normal 2.2-4.0 [facility] Comment on above: Order Comment: Speci men Type: BLOOD SPECIMEN Ordering Facility[facility] Address: [address] [place] [address] Performed By: #### 1 995-0 #### [facility] CLIA [id number] [address] [place] [address] [place] T4 Free SerPl-mCncon 024 Free T4 [Mass/Vol] 1.1 ng/dL Normal 0.8-1.5 [facility] Comment on above: Order Comment: Speci men Type: BLOOD SPECIMEN Ordering Facility: [facility] Address: [address] [place] [address] Performed By: #### 1 995-0 #### [facility] CLIA [id number] [address] [place] [address] [place] Basic metabolic 2000 panelon 11-18-2023 Anion gap [Moles/Vol] 3 mmol/L Low 5-16 [facility] Comment on above: Order Comment: Speci men Type: BLOOD SPECIMEN Ordering Facility: [facility] Address: [address] [place] [address] Performed By: #### 2 4321-2, , 3 #### [facility] CLIA [id number] [address] [place], [place] [address] [place] Calcium [Mass/Vol] 9.1 mg/dL Normal 8.5-10.5 [facility] Comment on above: Order Comment: Speci men Type: BLOOD SPECIMEN Ordering Facility: [facility] Address: [address] [place] [address] Performed By: #### 2 4321-2, , 3 #### [facility] CLIA [id number] [address] [place], [place] [address] [place] Chloride [Moles/Vol] 100 mmol/L Normal 98-107 [facility] Comment on above: Order Comment: Speci men Type: BLOOD SPECIMEN Ordering Facility: [facility] Address: [address] [place] [address] Performed By: #### 2 4321-2, , 3015-3 #### [facility] CLIA [id number] [address] [place] [address] [place] CO2 [Moles/Vol] 32 mmol/L Normal 21-32 [facility] Comment on above: Order Comment: Speci men Type: BLOOD SPECIMEN Ordering Facility[facility] Address: [address] [place] [address] Performed By: #### 2 4321-2, , 3015-08 #### [facility] CLIA [id number] [address] [place] [address] [place] Creatinine [Mass/Vol] 0.66 mg/dL Normal 0.50-1.40 [facility] Comment on above: Order Comment: Yogi plascencia Type: BLOOD SPECIMEN Ordering Facility: [facility] Address: [address] [place] [address] Result Comment: Diane ents receiving either N-Acetylcysteine (NAC) or Metamizole prior to venipuncture, may have falsely depressed results. Performed By: #### 2 4321-2, , 3015-08 #### [facility] CLIA [id number] [address] [place] [address] [facility] Creatinine and Glomerular filtration rate.predicted panel (S/P/Bld) 109 mL/min/1.73m??? Normal >=60 [facility] Comment on above: Order Comment: Yogi plascencia Type: BLOOD SPECIMEN Ordering Facility: [facility] Address: [address] [place] [address] Result Comment: Sudha mated Glomerular Filtration Rate [...] actual GFR. Performed By: #### 2 4321-2, , 3015-08 #### [facility] CLIA [id number] [address] [place], [place] [address] [place] Glucose [Mass/Vol] 135 mg/dL High 70-100 [facility] Comment on above: Order Comment: Yogi plascencia Type: BLOOD SPECIMEN Ordering Facility: [facility] Address: [address] [place] [address] Result Comment: The [place] [employer] (ADA) provides guidance for cutoff [...] Standards of Medical Care in Diabetes 2016, [place] [employer]. Diabetes Care. 2016.39(Suppl 1). Results may be falsely elevated after the administration of Sulfapyridine. Results may be falsely depressed after the administration of Sulfasalazine. Performed By: #### 2 4321-2, , 3 #### [facility] CLIA [id number] [address] [place] [address] [place] Potassium [Moles/Vol] 4.2 mmol/L Normal 3.5-5.1 [facility] Comment on above: Order Comment: Yogi plascencia Type: BLOOD SPECIMEN Ordering Facility: [facility] Address: [address] [place] [address] Performed By: #### 2 4321-2, , 3015-08 #### [facility] CLIA [id number] [address] [place] [address] [place] Sodium [Moles/Vol] 135 mmol/L Low 136-145 [facility] Comment on above: Order Comment: Yogi plascencia Type: BLOOD SPECIMEN Ordering Facility: [facility] Address: [address] [place] [address] Performed By: #### 2 4321-2, , 3 #### [facility] CLIA [id number] [address] [place] [address] [place] Urea nitrogen [Mass/Vol] 11 mg/dL Normal 7-26 [facility] Comment on above: Order Comment: Yogi plascencia Type: BLOOD SPECIMEN Ordering Facility: [facility] Address: [address] [place] [address] Performed By: #### 2 4321-2, , 3 #### [facility] CLIA [id number] [address] [place], [place] [address] [place] CBC W Auto Differential pane l (Bld)on 11-18-2023 Basophils (Bld) [#/Vol] 0.06 10*3/uL Normal <0.11 [facility] Comment on above: Order Comment: Speci men Type: BLOOD SPECIMEN Ordering Facility: [facility] Address: [address] [place] [address] Performed By: #### 5 7021-8 #### [facility] CLIA [id number] [address] [place] [address] [place] Basophils/100 WBC (Bld) 0.5 % Normal [facility] Comment on above: Order Comment: Speci men Type: BLOOD SPECIMEN Ordering Facility: [facility] Address: [address] [place] [address] Performed By: #### 5 7021-8 #### [facility] CLIA [id number] [address] [place] [address] [place] Differential cell count method Nom (Bld) Auto Normal [facility] Comment on above: Order Comment: Speci men Type: BLOOD SPECIMEN Ordering Facility[facility] Address: [address] [place] [address] Performed By: #### 5 7021-8 #### [facility] CLIA [id number] [address] [place] [address] [place] Eosinophils (Bld) [#/Vol] 0.34 10*3/uL Normal <0.46 [facility] Comment on above: Order Comment: Speci men Type: BLOOD SPECIMEN Ordering Facility[facility] Address: [address] [place] [address] Performed By: #### 5 7021-8 #### [facility] CLIA [id number] [address] [place] [address] [place] Eosinophils/100 WBC (Bld) 2.9 % Normal [facility] Comment on above: Order Comment: Speci men Type: BLOOD SPECIMEN Ordering Facility: [facility] Address: [address] [place] [address] Performed By: #### 5 7021-8 #### [facility] CLIA [id number] [address] [place] [address] [place] Erythrocyte distribution width (RBC) [Ratio] 17.8 % High 11.5-15.0 [facility] Comment on above: Order Comment: Speci men Type: BLOOD SPECIMEN Ordering Facility: [facility] Address: [address] [place] [address] Performed By: #### 5 7021-8 #### [facility] CLIA [id number] [address] [place] [address] [place] Hematocrit (Bld) [Volume fraction] 41.1 % Normal 39.0-51.0 [facility] Comment on above: Order Comment: Speci men Type: BLOOD SPECIMEN Ordering Facility: [facility] Address: [address] [place] [address] Performed By: #### 5 7021-8 #### [facility] CLIA [id number] [address] [place] [address] [place] Hemoglobin (Bld) [Mass/Vol] 12.5 g/dL Low 13.0-17.0 [facility] Comment on above: Order Comment: Speci men Type: BLOOD SPECIMEN Ordering Facility: [facility] Address: [address] [place] [address] Performed By: #### 5 7021-8 #### [facility] CLIA [id number] [address] [place] [address] [place] Immature granulocytes (Bld) [#/Vol] 0.04 10*3/uL Normal <0.10 [facility] Comment on above: Order Comment: Speci men Type: BLOOD SPECIMEN Ordering Facility: [facility] Address: [address] [place] [address] Performed By: #### 5 7021-8 #### [facility] CLIA [id number] [address] [place] [address] [place] Immature granulocytes/100 WBC (Bld) 0.3 % Normal [facility] Comment on above: Order Comment: Speci men Type: BLOOD SPECIMEN Ordering Facility[facility] Address: [address] [place] [address] Performed By: #### 5 7021-8 #### [facility] CLIA [id number] [address] [place] [address] [place] Lymphocytes (Bld) [#/Vol] 2.21 10*3/uL Normal 1.00-4.00 [facility] Comment on above: Order Comment: Speci men Type: BLOOD SPECIMEN [facility] Address: [address] [place] [address] Performed By: #### 5 7021-8 #### [facility] CLIA [id number] [address] [place] [address] [place] Lymphocytes/100 WBC (Bld) 18.7 % Normal [facility] Comment on above: Order Comment: Speci men Type: BLOOD SPECIMEN Ordering Facility: [facility] Address: [address] [place] [address] Performed By: #### 5 7021-8 #### [facility] CLIA [id number] [address] [place] [address] [place] MCH (RBC) [Entitic mass] 23.7 pg Low 26.0-34.0 [facility] Comment on above: Order Comment: Speci men Type: BLOOD SPECIMEN Ordering Facility: [facility] Address: [address] [place] [place] [address] Performed By: #### 5 7021-8 #### [facility] CLIA [id number] [address] [place] [address] [place] MCHC (RBC) [Mass/Vol] 30.4 g/dL Low 30.5-36.0 [facility] Comment on above: Order Comment: Speci men Type: BLOOD SPECIMEN Ordering Facility: [facility] Address: [address] [place] [address] Performed By: #### 5 7021-8 #### [facility] CLIA [id number] [address] [place] [address] [place] MCV (RBC) [Entitic vol] 77.8 fL Low 80.0-100.0 [facility] Comment on above: Order Comment: Speci men Type: BLOOD SPECIMEN Ordering Facility: [facility] Address: [address] [place] [address] Performed By: #### 5 7021-8 #### [facility] CLIA [id number] [address] [place] [address] [place] Monocytes (Bld) [#/Vol] 0.67 10*3/uL Normal <0.87 [facility] Comment on above: Order Comment: Speci men Type: BLOOD SPECIMEN Ordering Facility: [facility] Address: [address] [place] [address] Performed By: #### 5 7021-8 #### [facility] CLIA [id number] [address] [place] [address] [place] Monocytes/100 WBC (Bld) 5.7 % Normal [facility] Comment on above: Order Comment: Speci men Type: BLOOD SPECIMEN Ordering Facility: [facility] Address: [address] [place] [address] Performed By: #### 5 7021-8 #### [facility] CLIA [id number] [address] [place] [address] [place] Neutrophils (Bld) [#/Vol] 8.52 10*3/uL High 1.45-7.50 [facility] Comment on above: Order Comment: Speci men Type: BLOOD SPECIMEN Ordering Facility: [facility] Address: [address] [place] [address] Performed By: #### 5 7021-8 #### [facility] CLIA [id number] [address] [place] [address] [place] Neutrophils/100 WBC (Bld) 71.9 % Normal [facility] Comment on above: Order Comment: Speci men Type: BLOOD SPECIMEN Ordering Facility: [facility] Address: [address] [place] [address] Performed By: #### 5 7021-8 #### [facility] CLIA [id number] [address] [place], [place] [id number] [place] Nucleated RBC (Bld) [#/Vol] 10*3/uL Normal <0.01 [facility] Comment on above: Order Comment: Speci men Type: BLOOD SPECIMEN Ordering Facility: [facility] Address: [address] [place] [address] Performed By: #### 5 7021-8 #### [facility] CLIA [id number] [address] [place], [place] [id number] [place] Nucleated RBC/100 WBC (Bld) [Ratio] 0.0 /100 WBC Normal [facility] Comment on above: Order Comment: Speci men Type: BLOOD SPECIMEN Ordering Facility: [facility] Address: [address] [place] [address] Performed By: #### 5 7021-8 #### [facility] CLIA [id number] [address] [place] [address] [place] Platelet mean volume (Bld) [Entitic vol] 10.0 fL Normal 9.0-12.7 [facility] Comment on above: Order Comment: Speci men Type: BLOOD SPECIMEN Ordering Facility: [facility] Address: [address] [place] [place] [address] Performed By: #### 5 7021-8 #### [facility] CLIA [id number] [address] [place] [address] [place] Platelets (Bld) [#/Vol] 186 10*3/uL Normal 150-400 [facility] Comment on above: Order Comment: Speci men Type: BLOOD SPECIMEN Ordering Facility: [facility] Address: [address] [place] [address] Performed By: #### 5 7021-8 #### [facility] CLIA [id number] [address] [place], [place] [address] [place] RBC (Bld) [#/Vol] 5.28 10*6/uL Normal 4.20-6.00 [facility] Comment on above: Order Comment: Speci men Type: BLOOD SPECIMEN Ordering Facility: [facility] Address: [address] [place] [address] Performed By: #### 5 7021-8 #### [facility] CLIA [id number] [address] [place] [address] [place] WBC (Bld) [#/Vol] 11.84 10*3/uL High 3.70-11.00 [facility] Comment on above: Order Comment: Speci men Type: BLOOD SPECIMEN Ordering Facility: [facility] Address: [address] [place] [address] Performed By: #### 5 7021-8 #### [facility] CLIA [id number] [address] [place], [place] [address] [facility] CONSULTon 11-18-2023 CONSULT HNO ID: [id number] Author: CHIDI ARROYO MD Service: Cardiovascular Medicine Author Type: Physician Type: Consults Filed: 11/19/2023 20:16 Note Text: CARDIOLOGY CONSULT STAFF AUTOMOTIVE GLASS TECHNICIAN: CHIDI ARROYO Requesting Provider: Chidi Liu MD Opinion/advice regarding: NSVT CHIEF COMPLAINT: Dizzy and lightheaded HPI: This is a 58 year old male with a past medical history of CAD, COPD, NAFLD, morbid obesity, hypertension, papillary thyroid carcinoma s/p thyroidectomy now with hypothyroidism, Hx NSVT, syncope, asthma, diabetes, SHAHANA (noncompliant) who initially presented to [facility] with complaints of lightheadedness and dizziness. He just had an feeling of being unwell, had some mild diaphoresis, denies palpitations, chest pain/discomfort. The symptoms have been ongoing for several weeks. He endorses baseline COPD so does have some shortness of breath but he felt that his breathing was a little off compared to the usual. Reported to have had cardiac cath with stent placement in 2020 [facility] however required transfer to [facility] for nonsustained V. tach and EP evaluation [...] HISTORY Diagnosis Date Coronary artery disease involving lovelock coronary artery of lovelock heart without angina pectoris 01/22/2021 Depression DM [...] hours as needed for sore gums (supervised self-administration)Disp : Rfl: carboxymethylcellulose sodium (ARTIFICIAL TEARS) 1 % dropsUse 1 Drop in both eyes as needed (dry eyes).Disp: Rfl: citalopram (CELEXA) 20 mg tabletTake 20 mg by mouth once daily. Disp: Rfl: mometasone-formoterol (DULERA) 100-5 mcg/actuation inhalerInhale 2 Puffs as instructed twice daily.Disp: Rfl: DULoxetine (CYMBALTA) 6 (more content not included)... Normal [facility] Calcium.ionized [Moles/Vol]o n 11-18-2023 Calcium.ionized (Bld) [Mass/Vol] 1.15 mmol/L Low 1.16-1.32 [facility] Comment on above: Order Comment: Speci men Type: BLOOD SPECIMEN Ordering Facility: [facility] Address: [address] [place] [address] Performed By: #### 1 995-0 #### [facility] CLIA [id number] [address] [place] [address] [place] ECG COMPLETEon 11-18-2023 ECG COMPLETE Ventricular Rate : 8 2 BPM Atrial Rate : 82 BPM P-R Interval : 188 ms QRS Duration : 92 ms Q-T Interval : 388 ms QTC Calculation(Bazett) : 453 ms Calculated P [place] : 43 degrees Calculated R [place] : 9 degrees Calculated T [place] : 44 degrees Normal sinus rhythm Normal ECG No previous ECGs available Confirmed by JASON MORALES MD ([id number]) on 11/21/2023 3:24:15 PM NAME : DERRELL HOYT PID : [id number] : 1965 Gender : Male Race : Unknown ORD : [id number] Procedure Date : Nov 18 2023 23:05:42 Edit Date : Nov 21 2023 15:24:16 Diagnosis: Normal sinus rhythm Normal ECG No previous ECGs available Confirmed by JASON MORALES MD ([id number]) on 11/21/2023 3:24:15 PM Test Reason : VTACH Location : 13 : CCU CCU4 Overread By : JASON MORALES MD Edited By : JASON MORALES MD Referred By : HONORIO OVALLE Acquired by : Rosaura FORD [facility] HIGH SENSITIVITY TROPONIN Io n 11-18-2023 Tropinin I.cardiac panel High sensitivity method 3.6 pg/mL Normal 0.0-54.0 [facility] Comment on above: Order Comment: Speci men Type: BLOOD SPECIMEN Ordering Facility: [facility] Address: [address] [place] [address] Result Comment: This assay uses different antibodies than our current assay, and assays, even by the same data integration developer may recognize different regions of the antibody and cannot be used interchangeably. Expect results of this assay to run higher than the previous assay. Performed By: #### H STROP #### [facility] CLIA [id number] [address] [place] [address] [place] HISTORY PHYSICALon HISTORY PHYSICAL HNO ID: [id number] Author: CHIDI LIU MD Service: Hospital Medicine [...] episodes of NSVT. They requested transfer to [facility] for evaluation by electrophysiology. He is not currently complaining of chest pain, shortness of breath. He stated earlier today he did break into a sweat with his symptoms. Denies fevers chills recent illness FUNCTIONAL STATUS: Independent PAST MEDICAL HISTORY Diagnosis Date Coronary artery disease involving lovelock coronary artery of lovelock heart without angina pectoris 01/22/2021 Depression DM [...] , Rfl (more content not included)... Normal [facility] Lactate (Bld) [Moles/Vol]on 11-18-2023 Lactate [Moles/Vol] 1.7 mmol/L Normal 0.4-2.0 [facility] Comment on above: Order Comment: Yogi plascencia Type: BLOOD SPECIMEN Ordering Facility: [facility] Address: [address] [place], [place] [address] Performed By: #### 3 2693-4 #### [facility] CLIA [id number] [address] [place], [place] [address] [place] Magnesium SerPl-mCncon 11-17 Magnesium [Mass/Vol] 2.1 mg/dL Normal 1.6-2.6 [facility] Comment on above: Order Comment: Yogi plascencia Type: BLOOD SPECIMEN Ordering Facility: [facility] Address: [address] [place] [address] Performed By: #### 2 4321-2, 82780-4, 3016-3 #### [facility] CLIA [id number] [address] [place] [address] [place] PT panel Coag (PPP)on 2023 INR Coag (PPP) [Relative time] 1.1 {INR} Normal 0.9-1.3 [facility] Comment on above: Order Comment: Yogi plascencia Type: BLOOD SPECIMEN Ordering Facility: [facility] Address: [address] [place] [address] Result Comment: Xin min K Antagonist (VKA) Therapeutic Range: INR 2 to 3 (Target INR of 2.5) Note: For patients treated with VKA drugs, such as warfarin, the [place] 2012 Guideline recommends [...] to 3.5 (target INR of 3). Erin GH, et al. Chest 2012, 141:7S-47S Radha RA et al. [facility] 2017, 70: 252-289 Performed By: #### 3 4528-0, 23987-2 #### [facility] CLIA [id number] [address] [place] [address] [place] PT Coag (PPP) [Time] 11.7 s Normal 9.7-13.0 [facility] Comment on above: Order Comment: Speci men Type: BLOOD SPECIMEN Ordering Facility: [facility] Address: [address] [place] [address] Performed By: #### 3 4528-0, 06680-8 #### [facility] CLIA [id number] [address] [place] [address] [place] TSH SerPl-aCncon 11-18-2023 TSH Qn 10.919 m[IU]/L High 0.358-3.740 [facility] Comment on above: Order Comment: Speci men Type: BLOOD SPECIMEN Ordering Facility: [facility] Address: [address] [place] [address] Result Comment: 3rd generation ultra sensitive TSH. Performed By: #### 2 4321-2, 92561-1, 3016-3 #### [facility] CLIA [id number] [address] [place] [address] [place] aPTT PPPon 11-18-2023 aPTT Coag (PPP) [Time] 28.8 s Normal 23.0-32.4 [facility] Comment on above: Order Comment: Speci men Type: BLOOD SPECIMEN Ordering Facility: [facility] Address: [address] [place] [address] Performed By: #### 3 4528-0, 30604-8 #### [facility] CLIA [id number] [address] [place] [address] [place] Absolute lymphocyte counton 09-15-2021 Lymphocytes Auto (Unsp spec) [#/Vol] 1.87 10*3/uL 0.83-4.51 [facility] Work Phone: Basophil percentageon 2021 Basophils/100 WBC (Bld) 0.4 % 0-1 [facility] Work Phone: Chloride [Moles/Vol] 100 mmol/L 98-107 [facility] Work Phone: Eosinophils/100 WBC (Bld) 4.4 % 0-5 [facility] Work Phone: Glucose [Mass/Vol] 221 mg/dL 74-106 [facility] Work Phone: Comment on above: Glucose result great er than or equal to 200 mg/dLsuggests DIABETES MELLITUS per A.D.A. criteria. Neutrophils (Bld) [#/Vol] 9.1 10*3/uL 2.0-7.7 [facility] Work Phone: Neutrophils/100 WBC (Bld) 73.7 % 47-70 [facility] Work Phone: Potassium [Moles/Vol] 3.9 mmol/L 3.5-5.1 [facility] Work Phone: Sodium [Moles/Vol] 134 mmol/L 136-145 [facility] Work Phone: WBC (Bld) [#/Vol] 12.4 10*3/uL 4.4-11.0 [facility] Work Phone: Blood erythrocytes count (nu mber/volume)on 09-15-2021 RBC (Bld) [#/Vol] 4.52 10*6/uL 4.6-6.2 [facility] Work Phone: Blood hemoglobin measurement (mass/volume)on 09-15-2021 Hemoglobin (Bld) [Mass/Vol] 13.8 g/dL 13.0-16.5 [facility] Work Phone: Blood lymphocytes/100 leukoc yteson 09-15-2021 Lymphocytes/100 WBC (Bld) 15.1 % 19-41 [facility] Work Phone: Blood monocytes/100 leukocyt eson 09-15-2021 Monocytes/100 WBC (Bld) 5.8 % 0-10 [facility] Work Phone: Blood platelet mean volumeon 09-15-2021 Platelet mean volume (Bld) [Entitic vol] 9.8 fL 6.2-12.0 [facility] Work Phone: Determination of erythrocyte mean corpuscular volume (MCV)on 09-15-2021 MCV (RBC) [Entitic vol] 89.8 fL 80-94 [facility] Work Phone: Glucose Glucometer (BldC) [M ass/Vol]on 09-15-2021 Glucose [Mass/Vol] 287 mg/dL 74-106 [facility] Work Phone: Comment on above: MANAGEMENT OF PATIEN T CARE PER NURSING PROTOCOL Hematocrit Auto (Bld) [Volum e fraction]on 09-15-2021 Hematocrit (Bld) [Volume fraction] 40.6 % 40-54 [facility] Work Phone: Laboratory - Chemistry and C hemistry - challengeon 09-15-2021 CO2 [Moles/Vol] 30.0 mmol/L 21.0-32.0 [facility] Work Phone: Urea nitrogen/Creatinine [Mass ratio] 20.0 mg/mg 10-20 [facility] Work Phone: Laboratory - Hematology and Cell countson 09-15-2021 Erythrocyte distribution width (RBC) [Entitic vol] 45.8 fL 35.1-43.9 [facility] Work Phone: Erythrocyte distribution width (RBC) [Ratio] 14.1 % 11.6-14.6 [facility] Work Phone: Immature granulocytes/100 WBC (Bld) 0.600 % 0.0-0.9 [facility] Work Phone: Comment on above: IG% - Immature Granu locytes (promyelocytes, myelocytes and metamyelocytes) > 1% indicates that a LEFT SHIFT is Present. MCH (RBC) [Entitic mass] 30.5 pg 27.0-32.0 [facility] Work Phone: Nucleated RBC/100 WBC (Bld) [Ratio] 0 % 0-5 [facility] Work Phone: MCHC Auto (RBC) [Mass/Vol]on 09-15-2021 MCHC (RBC) [Mass/Vol] 34.0 g/dL 32-36 [facility] Work Phone: No Panel Informationon 09-15 Estimated Creatinine Clearance Calc 133.17 ml/min [facility] Work Phone: Estimated GFR (MDRD) Amer 150 mL/min >60 [facility] Work Phone: Comment on above: GFR Calc Estimated GFR (MDRD) Non-Af Amer 124 mL/min >60 [facility] Work Phone: Comment on above: Non- GFR Calc Platelets bldon 09-15-2021 Platelets (Bld) [#/Vol] 187 10*3/uL 150-450 [facility] Work Phone: Serum or plasma calcium davidson urement (mass/volume)on 09-15-2021 Calcium [Mass/Vol] 8.4 mg/dL 8.5-10.1 [facility] Work Phone: Serum or plasma creatinine m easurement (mass/volume)on 09-15-2021 Creatinine [Mass/Vol] 0.70 mg/dL 0.70-1.30 [facility] Work Phone: Comment on above: The validity of the calculated GFR & GFRAA in patients over 70 years has not been determined. Clinical correlation is essential. Serum or plasma urea nitroge n measurement (mass/volume)on 09-15-2021 Urea nitrogen [Mass/Vol] 14 mg/dL 7-18 [facility] Work Phone: Thin prep Papanicolaou smear with manual screeningon 09-15-2021 Thin prep Papanicolaou smear with manual screening 4 5-15 [facility] Work Phone: Absolute lymphocyte counton 09-13-2021 Lymphocytes Auto (Unsp spec) [#/Vol] 2.01 10*3/uL 0.83-4.51 [facility] Work Phone: Basophil percentageon 2021 Basophil percentage 3.2 mg/dL 2.5-4.9 [facility] Work Phone: Basophils/100 WBC (Bld) 0.4 % 0-1 [facility] Work Phone: Chloride [Moles/Vol] 98 mmol/L 98-107 [facility] Work Phone: Eosinophils/100 WBC (Bld) 3.2 % 0-5 [facility] Work Phone: Glucose [Mass/Vol] 213 mg/dL 74-106 [facility] Work Phone: Comment on above: Glucose result great er than or equal to 200 mg/dLsuggests DIABETES MELLITUS per A.D.A. criteria. Neutrophils (Bld) [#/Vol] 9.8 10*3/uL 2.0-7.7 [facility] Work Phone: Neutrophils/100 WBC (Bld) 75.1 % 47-70 [facility] Work Phone: Potassium [Moles/Vol] 3.8 mmol/L 3.5-5.1 [facility] Work Phone: Sodium [Moles/Vol] 136 mmol/L 136-145 [facility] Work Phone: WBC (Bld) [#/Vol] 13.0 10*3/uL 4.4-11.0 [facility] Work Phone: Blood erythrocytes count (nu mber/volume)on 09-13-2021 RBC (Bld) [#/Vol] 4.49 10*6/uL 4.6-6.2 [facility] Work Phone: Blood hemoglobin measurement (mass/volume)on 09-13-2021 Hemoglobin (Bld) [Mass/Vol] 13.8 g/dL 13.0-16.5 [facility] Work Phone: Blood lymphocytes/100 leukoc yteson 09-13-2021 Lymphocytes/100 WBC (Bld) 15.4 % 19-41 [facility] Work Phone: Blood monocytes/100 leukocyt eson 09-13-2021 Monocytes/100 WBC (Bld) 5.4 % 0-10 [facility] Work Phone: Blood platelet mean volumeon 09-13-2021 Platelet mean volume (Bld) [Entitic vol] 10.0 fL 6.2-12.0 [facility] Work Phone: Determination of erythrocyte mean corpuscular volume (MCV)on 09-13-2021 MCV (RBC) [Entitic vol] 92.0 fL 80-94 [facility] Work Phone: Hematocrit Auto (Bld) [Volum e fraction]on 09-13-2021 Hematocrit (Bld) [Volume fraction] 41.3 % 40-54 [facility] Work Phone: Laboratory - Chemistry and C hemistry - challengeon 09-13-2021 CO2 [Moles/Vol] 30.0 mmol/L 21.0-32.0 [facility] Work Phone: Magnesium [Mass/Vol] 1.8 mg/dL 1.6-2.6 [facility] Work Phone: Urea nitrogen/Creatinine [Mass ratio] 12.4 mg/mg 10-20 [facility] Work Phone: Laboratory - Hematology and Cell countson 03-24-2022 Erythrocyte distribution width (RBC) [Entitic vol] 46.7 fL 35.1-43.9 [facility] Work Phone: Erythrocyte distribution width (RBC) [Ratio] 13.9 % 11.6-14.6 [facility] Work Phone: Immature granulocytes/100 WBC (Bld) 0.500 % 0.0-0.9 [facility] Work Phone: Comment on above: IG% - Immature Granu locytes (promyelocytes, myelocytes and metamyelocytes) > 1% indicates that a LEFT SHIFT is Present. MCH (RBC) [Entitic mass] 30.7 pg 27.0-32.0 [facility] Work Phone: Nucleated RBC/100 WBC (Bld) [Ratio] 0 % 0-5 [facility] Work Phone: MCHC Auto (RBC) [Mass/Vol]on 09-13-2021 MCHC (RBC) [Mass/Vol] 33.4 g/dL 32-36 [facility] Work Phone: No Panel Informationon 09-13 Troponin I High Sensitivity < 3 pg/mL 3.0-78.0 [facility] Work Phone: Comment on above: Please Note: [place] t Units and Gender Specific Reference Ranges. For more information see Policy Stat Procedure [place] High Sensitivity Troponin (TNIH) and attachments. Estimated Creatinine Clearance Calc 115.08 ml/min [facility] Work Phone: Estimated GFR (MDRD) Amer 127 mL/min >60 [facility] Work Phone: Comment on above: GFR Calc Estimated GFR (MDRD) Non-Af Amer 105 mL/min >60 [facility] Work Phone: Comment on above: Non- GFR Calc Troponin I High Sensitivity 3 pg/mL 3.0-78.0 [facility] Work Phone: Comment on above: Please Note: [place] t Units and Gender Specific Reference Ranges. For more information see Policy Stat Procedure [place] High Sensitivity Troponin (TNIH) and attachments. Platelets bldon 09-13-2021 Platelets (Bld) [#/Vol] 209 10*3/uL 150-450 [facility] Work Phone: Serum or plasma calcium davidson urement (mass/volume)on 09-13-2021 Calcium [Mass/Vol] 9.1 mg/dL 8.5-10.1 [facility] Work Phone: Serum or plasma creatinine m easurement (mass/volume)on 09-13-2021 Creatinine [Mass/Vol] 0.81 mg/dL 0.70-1.30 [facility] Work Phone: Comment on above: The validity of the calculated GFR & GFRAA in patients over 70 years has not been determined. Clinical correlation is essential. Serum or plasma urea nitroge n measurement (mass/volume)on 09-13-2021 Urea nitrogen [Mass/Vol] 10 mg/dL 7-18 [facility] Work Phone: Thin prep Papanicolaou smear with manual screeningon 09-13-2021 Thin prep Papanicolaou smear with manual screening 8 5-15 [facility] Work Phone: Laboratory - Microbiology an d Antimicrobial susceptibilityon 07-16-2021 SARS-CoV-2 (COVID-19) RNA NAMAN+probe Ql (Unsp spec) Not detected Not Detect [facility] Work Phone: Comment on above: Normal Reference Ran ge: Not DetectedMethod:(RT-PCR) real-time reverse transcriptase PCRLuminex ANSLEY Instrument*The Food and Drug Administration (FDA) has issued an Emergency Use Authorization (EAU) for the ANSLEY SARS-CoV-2 Assay for the rapid detection of the virus that causes COVID-19. This test has been validated, but the FDAs independent review of this validation is pending.*Negative results do not preclude infection and should not be used as the sole basis for treatment or patient management. Optimum specimen types and timing for peak viral levels during infections caused by SARS-CoV-2 have not been determined. Collection of multiple specimens from the same patient may be necessary to detect the virus. The possibility of a false negative result should be considered if the patient has clinical presentation or has had recent exposure. CNNURSEon 01-31-2021 CNNURSE Nurse Visit (AGCARDP OB) -------- HOYTDERRELL ([id number]) 1965 M Date Time Provider Department 01/31/21 11:00 AM NURSE CARD WILIAN GARCIA POB AGCARDPOB During your visit today, we recorded the following information about you: Pulse Blood pressure Weight Height 80/minute 99/66 167.8 kg 1.753 m Marlee Truong MA 01/31/2021 10:57 AM Signed No cardiac concerns today Sharon Eubanks RN 01/31/2021 11:09 AM Signed EKG reviewed. CHIRAG Cassidy APRN.CASING SEWER 01/31/2021 4:52 PM Signed I reviewed EKG [...] on 02/27/2021 at 9:45 AM. Kaleb Duckworth APRN.CASING SEWER Referring Provider: SELF [200] Allergies As of Date: 01/31/2021 (No Known Allergies) Date Reviewed: 01/31/2021 Reviewed by: Marlee Truong MA - Fully Assessed Reason for Visit: EKG [793] Cmt: nurse visit Primary Visit Diagnosis:Ventricular tachycardia, nonsustained (HCC) [I47.2] Order(s):ECG B/O W INTERP (MED OFFICE) [ECG06] Order #: [id number] Prescriptions as of 01/31/2021 - aspirin, enteric [...] kit Freestyle (more content not included)... Normal [facility] CBC W Auto Differential pane l (Bld)on 01-24-2021 Basophils (Bld) [#/Vol] 0.07 10*3/uL Normal <0.11 [facility] Comment on above: Order Comment: Speci men Type: BLOOD SPECIMEN Performed By: #### 5 7021-8 #### [facility] CLIA [id number] [address] [place] [address] Basophils/100 WBC (Bld) 0.5 % Normal [facility] Comment on above: Order Comment: Speci men Type: BLOOD SPECIMEN Performed By: #### 5 7021-8 #### [facility] CLIA [id number] [address] [place] [address] Differential cell count method Nom (Bld) Auto Normal [facility] Comment on above: Order Comment: Speci men Type: BLOOD SPECIMEN Performed By: #### 5 7021-8 #### [facility] CLIA [id number] [address] [place] [address] Eosinophils (Bld) [#/Vol] 0.91 10*3/uL High <0.46 [facility] Comment on above: Order Comment: Speci men Type: BLOOD SPECIMEN Performed By: #### 5 7021-8 #### [facility] CLIA [id number] [address] [place] [address] Eosinophils/100 WBC (Bld) 6.9 % Normal [facility] Comment on above: Order Comment: Speci men Type: BLOOD SPECIMEN Performed By: #### 5 7021-8 #### [facility] CLIA [id number] [address] [place] [address] Erythrocyte distribution width (RBC) [Ratio] 14.4 % Normal 11.5-15.0 [facility] Comment on above: Order Comment: Speci men Type: BLOOD SPECIMEN Performed By: #### 5 7021-8 #### [facility] CLIA [id number] [address] [place] [address] Hematocrit (Bld) [Volume fraction] 43.0 % Normal 39.0-51.0 [facility] Comment on above: Order Comment: Speci men Type: BLOOD SPECIMEN Performed By: #### 5 7021-8 #### [facility] CLIA [id number] [address] [place] [address] Hemoglobin (Bld) [Mass/Vol] 13.9 g/dL Normal 13.0-17.0 [facility] Comment on above: Order Comment: Speci men Type: BLOOD SPECIMEN Performed By: #### 5 7021-8 #### [facility] CLIA [id number] [address] [place] [address] IMMATURE GRAN % 0.9 % Normal [facility] Comment on above: Order Comment: Speci men Type: BLOOD SPECIMEN Performed By: #### 5 7021-8 #### [facility] CLIA [id number] [address] [place] [address] IMMATURE GRAN ABS 0.12 k/uL High <0.10 [facility] Comment on above: Order Comment: Speci men Type: BLOOD SPECIMEN Performed By: #### 5 7021-8 #### [facility] CLIA [id number] [address] [place] [address] Lymphocytes (Bld) [#/Vol] 1.95 10*3/uL Normal 1.00-4.00 [facility] Comment on above: Order Comment: Speci men Type: BLOOD SPECIMEN Performed By: #### 5 7021-8 #### [facility] CLIA [id number] [address] [place] [address] Lymphocytes/100 WBC (Bld) 14.7 % Normal [facility] Comment on above: Order Comment: Speci men Type: BLOOD SPECIMEN Performed By: #### 5 7021-8 #### [facility] CLIA [id number] [address] [place] [address] MCH (RBC) [Entitic mass] 30.8 pg Normal 26.0-34.0 [facility] Comment on above: Order Comment: Speci men Type: BLOOD SPECIMEN Performed By: #### 5 7021-8 #### [facility] CLIA [id number] [address] [place] [address] MCHC (RBC) [Mass/Vol] 32.3 g/dL Normal 30.5-36.0 [facility] Comment on above: Order Comment: Speci men Type: BLOOD SPECIMEN Performed By: #### 5 7021-8 #### [facility] CLIA [id number] [address] [place] [address] MCV (RBC) [Entitic vol] 95.1 fL Normal 80.0-100.0 [facility] Comment on above: Order Comment: Speci men Type: BLOOD SPECIMEN Performed By: #### 5 7021-8 #### [facility] CLIA [id number] [address] [place] [address] Monocytes (Bld) [#/Vol] 0.70 10*3/uL Normal <0.87 [facility] Comment on above: Order Comment: Speci men Type: BLOOD SPECIMEN Performed By: #### 5 7021-8 #### [facility] CLIA [id number] [address] [place] [address] Monocytes/100 WBC (Bld) 5.3 % Normal [facility] Comment on above: Order Comment: Speci men Type: BLOOD SPECIMEN Performed By: #### 5 7021-8 #### [facility] CLIA [id number] [address] [place] [address] Neutrophils (Bld) [#/Vol] 9.53 10*3/uL High 1.45-7.50 [facility] Comment on above: Order Comment: Speci men Type: BLOOD SPECIMEN Performed By: #### 5 7021-8 #### [facility] CLIA [id number] [address] [place] [address] Neutrophils/100 WBC (Bld) 71.7 % Normal [facility] Comment on above: Order Comment: Speci men Type: BLOOD SPECIMEN Performed By: #### 5 7021-8 #### [facility] CLIA [id number] [address] [place] [address] Nucleated RBC (Bld) [#/Vol] 10*3/uL Normal <0.01 [facility] Comment on above: Order Comment: Speci men Type: BLOOD SPECIMEN Performed By: #### 5 7021-8 #### [facility] CLIA [id number] [address] [place] [address] Nucleated RBC/100 WBC (Bld) [Ratio] 0.0 /100 WBC Normal 0.0 [facility] Comment on above: Order Comment: Speci men Type: BLOOD SPECIMEN Performed By: #### 5 7021-8 #### [facility] CLIA [id number] [address] [place] [address] Platelet mean volume (Bld) [Entitic vol] 10.2 fL Normal 9.0-12.7 [facility] Comment on above: Order Comment: Speci men Type: BLOOD SPECIMEN Performed By: #### 5 7021-8 #### [facility] CLIA [id number] [address] [place] [address] Platelets (Bld) [#/Vol] 199 10*3/uL Normal 150-400 [facility] Comment on above: Order Comment: Speci men Type: BLOOD SPECIMEN Performed By: #### 5 7021-8 #### [facility] CLIA [id number] [address] [place] [address] RBC (Bld) [#/Vol] 4.52 10*6/uL Normal 4.20-6.00 [facility] Comment on above: Order Comment: Speci men Type: BLOOD SPECIMEN Performed By: #### 5 7021-8 #### [facility] CLIA [id number] [address] [place] [address] WBC (Bld) [#/Vol] 13.28 10*3/uL High 3.70-11.00 [facility] Comment on above: Order Comment: Speci men Type: BLOOD SPECIMEN Performed By: #### 5 7021-8 #### [facility] CLIA [id number] [address] [place] [address] CNDSon 01-24-2021 CNDS HNO ID: [id number] Author: Karolina Broussard MD Service: Hospital Medicine [...] was kept on drip. Patient transferred to [facility] under EP for possible ablation. Outside [...] use POA: Yes Coronary artery disease involving lovelock coronary artery of lovelock heart without angina pectoris POA: Yes Chronic [...] Wound/Surgical Sit (more content not included)... Normal [facility] Seema 01-24-2021 FRANCISCO JAVIER Telephone (SONJA) -------- DERRELL HOYT ([id number]) 1965 M Date Time Provider Department 01/24/21 KALEB DUCKWORTH During your visit today, we recorded the following information about you: Kaleb Duckworth APRN.CASING SEWER 01/24/2021 1:36 PM Signed Patient seen in [...] 4 to 6 weeks. He lives at [facility] assisted living at [phone] and they arrange his transportation to appointments so he asked to schedule the appointment through them. Kaleb Duckworth APRN.BART Mendes 01/25/2021 8:58 AM Signed Contacted [facility] with scheduled appointments. Left message for Fuad at extension 2014 with dates and times. BART Sims Allergies As of Date: 01/24/2021 (No Known Allergies) Date Reviewed: 01/22/2021 Reviewed by: Vandana Castellon RN - Fully Assessed Reason for Visit: Appointment [...] use [Z79.899] (more content not included)... Normal [facility] CONSULT PROGon 01-24-2021 CONSULT PROG HNO ID: [id number] Author: Kaleb Duckworth APRN.CASING SEWER Service: Electrophysiology Author Type: Nurse Specialist Type: [...] QRS duration 96 ms, QT/QTc 410/435 ms TELEMETRY/DISTRIBUTION ASSOCIATE: Normal sinus rhythm with infrequent polymorphic PVCs [...] at [place] (more content not included)... Normal [facility] Comprehensive metabolic 2000 panelon 01-24-2021 Albumin [Mass/Vol] 3.9 g/dL Normal 3.9-4.9 [facility] Comment on above: Order Comment: Speci men Type: BLOOD SPECIMEN Performed By: #### 5 7021-8 #### [facility] CLIA [id number] [address] [place] [address] ALP [Catalytic activity/Vol] 252 U/L High 38-113 [facility] Comment on above: Order Comment: Speci men Type: BLOOD SPECIMEN Performed By: #### 5 7021-8 #### [facility] CLIA [id number] [address] [place] [address] ALT With P-5'-P [Catalytic activity/Vol] 36 U/L Normal 10-54 [facility] Comment on above: Order Comment: Speci men Type: BLOOD SPECIMEN Performed By: #### 5 7021-8 #### [facility] CLIA [id number] [address] [place] [address] Anion gap [Moles/Vol] 8 mmol/L Low 9-18 [facility] Comment on above: Order Comment: Speci men Type: BLOOD SPECIMEN Performed By: #### 5 7021-8 #### [facility] CLIA [id number] [address] [place] [address] AST With P-5'-P [Catalytic activity/Vol] 33 U/L Normal 14-40 [facility] Comment on above: Order Comment: Speci men Type: BLOOD SPECIMEN Performed By: #### 5 7021-8 #### [facility] CLIA [id number] [address] [place] [address] Bilirubin [Mass/Vol] 0.6 mg/dL Normal 0.2-1.3 [facility] Comment on above: Order Comment: Speci men Type: BLOOD SPECIMEN Performed By: #### 5 7021-8 #### [facility] CLIA [id number] 1 [place] [address] Calcium [Mass/Vol] 8.8 mg/dL Normal 8.5-10.2 [facility] Comment on above: Order Comment: Speci men Type: BLOOD SPECIMEN Performed By: #### 5 7021-8 #### [facility] CLIA [id number] [address] [place] [address] Chloride [Moles/Vol] 99 mmol/L Normal 97-105 [facility] Comment on above: Order Comment: Speci men Type: BLOOD SPECIMEN Performed By: #### 5 7021-8 #### [facility] CLIA [id number] [address] [place] [address] CO2 [Moles/Vol] 28 mmol/L Normal 22-30 [facility] Comment on above: Order Comment: Speci men Type: BLOOD SPECIMEN Performed By: #### 5 7021-8 #### [facility] CLIA [id number] [address] [place] [address] Creatinine [Mass/Vol] 0.69 mg/dL Low 0.73-1.22 [facility] Comment on above: Order Comment: Speci men Type: BLOOD SPECIMEN Performed By: #### 5 7021-8 #### [facility] CLIA [id number] [address] [place] [address] GFR/1.73 sq M.predicted MDRD (S/P/Bld) [Vol rate/Area] mL/min/{1.73_m2} Normal [facility] Comment on above: Order Comment: Speci men [...] GFR. Performed By: #### 5 7021-8 #### [facility] CLIA [id number] [address] [place] [address] Glucose [Mass/Vol] 156 mg/dL High 74-99 [facility] Comment on above: Order Comment: Speci men Type: BLOOD SPECIMEN Result Comment: The [place] Diabetes Association (ADA) provides guidance for cutoff [...] Standards of Medical Care in Diabetes 2016, [place] [employer]. Diabetes Care. 2016.39(Suppl 1). Performed By: #### 5 7021-8 #### [facility] CLIA [id number] [address] [place] [address] Potassium [Moles/Vol] 4.7 mmol/L Normal 3.7-5.1 [facility] Comment on above: Order Comment: Speci men Type: BLOOD SPECIMEN Performed By: #### 5 7021-8 #### [facility] CLIA [id number] [address] [place] [address] Protein [Mass/Vol] 7.0 g/dL Normal 6.3-8.0 [facility] Comment on above: Order Comment: Speci men Type: BLOOD SPECIMEN Performed By: #### 5 7021-8 #### [facility] CLIA [id number] [address] [place] [address] Sodium [Moles/Vol] 135 mmol/L Low 136-144 [facility] Comment on above: Order Comment: Speci men Type: BLOOD SPECIMEN Performed By: #### 5 7021-8 #### [facility] CLIA [id number] [address] [place] [address] Urea nitrogen [Mass/Vol] 13 mg/dL Normal 9-24 [facility] Comment on above: Order Comment: Speci men Type: BLOOD SPECIMEN Performed By: #### 5 7021-8 #### [facility] CLIA [id number] [address] [place] [address] Magnesium SerPl-mCncon 01-24 Magnesium [Mass/Vol] 2.1 mg/dL Normal 1.7-2.3 [facility] Comment on above: Order Comment: Speci men Type: BLOOD SPECIMEN Performed By: #### 5 7021-8 #### [facility] CLIA [id number] [address] [place] [address] CBC W Auto Differential pane l (Bld)on 01-23-2021 Basophils (Bld) [#/Vol] 0.08 10*3/uL Normal <0.11 [facility] Comment on above: Order Comment: Speci men Type: BLOOD SPECIMEN Performed By: #### 5 7021-8 #### [facility] CLIA [id number] [address] [place] [address] Basophils/100 WBC (Bld) 0.6 % Normal [facility] Comment on above: Order Comment: Speci men Type: BLOOD SPECIMEN Performed By: #### 5 7021-8 #### [facility] CLIA [id number] [address] [place] [address] Differential cell count method Nom (Bld) Auto Normal [facility] Comment on above: Order Comment: Speci men Type: BLOOD SPECIMEN Performed By: #### 5 7021-8 #### [facility] CLIA [id number] [address] [place] [address] Eosinophils (Bld) [#/Vol] 0.71 10*3/uL High <0.46 [facility] Comment on above: Order Comment: Speci men Type: BLOOD SPECIMEN Performed By: #### 5 7021-8 #### [facility] CLIA [id number] [address] [place] [address] Eosinophils/100 WBC (Bld) 5.3 % Normal [facility] Comment on above: Order Comment: Speci men Type: BLOOD SPECIMEN Performed By: #### 5 7021-8 #### [facility] CLIA [id number] [address] [place] [address] Erythrocyte distribution width (RBC) [Ratio] 14.5 % Normal 11.5-15.0 [facility] Comment on above: Order Comment: Speci men Type: BLOOD SPECIMEN Performed By: #### 5 7021-8 #### [facility] CLIA [id number] [address] [place] [address] Hematocrit (Bld) [Volume fraction] 44.5 % Normal 39.0-51.0 [facility] Comment on above: Order Comment: Speci men Type: BLOOD SPECIMEN Performed By: #### 5 7021-8 #### [facility] CLIA [id number] [address] [place] [address] Hemoglobin (Bld) [Mass/Vol] 14.4 g/dL Normal 13.0-17.0 [facility] Comment on above: Order Comment: Speci men Type: BLOOD SPECIMEN Performed By: #### 5 7021-8 #### [facility] CLIA [id number] [address] [place] [address] IMMATURE GRAN % 0.9 % Normal [facility] Comment on above: Order Comment: Speci men Type: BLOOD SPECIMEN Performed By: #### 5 7021-8 #### [facility] CLIA [id number] [address] [place] [address] IMMATURE GRAN ABS 0.12 k/uL High <0.10 [facility] Comment on above: Order Comment: Speci men Type: BLOOD SPECIMEN Performed By: #### 5 7021-8 #### [facility] CLIA [id number] [address] [place] [address] Lymphocytes (Bld) [#/Vol] 1.65 10*3/uL Normal 1.00-4.00 [facility] Comment on above: Order Comment: Speci men Type: BLOOD SPECIMEN Performed By: #### 5 7021-8 #### [facility] CLIA [id number] [address] [place] [address] Lymphocytes/100 WBC (Bld) 12.3 % Normal [facility] Comment on above: Order Comment: Speci men Type: BLOOD SPECIMEN Performed By: #### 5 7021-8 #### [facility] CLIA [id number] [address] [place] [address] MCH (RBC) [Entitic mass] 30.3 pg Normal 26.0-34.0 [facility] Comment on above: Order Comment: Speci men Type: BLOOD SPECIMEN Performed By: #### 5 7021-8 #### [facility] CLIA [id number] [address] [place] [address] MCHC (RBC) [Mass/Vol] 32.4 g/dL Normal 30.5-36.0 [facility] Comment on above: Order Comment: Speci men Type: BLOOD SPECIMEN Performed By: #### 5 7021-8 #### [facility] CLIA [id number] [address] [place] [address] MCV (RBC) [Entitic vol] 93.5 fL Normal 80.0-100.0 [facility] Comment on above: Order Comment: Speci men Type: BLOOD SPECIMEN Performed By: #### 5 7021-8 #### [facility] CLIA [id number] [address] [place] [address] Monocytes (Bld) [#/Vol] 0.73 10*3/uL Normal <0.87 [facility] Comment on above: Order Comment: Speci men Type: BLOOD SPECIMEN Performed By: #### 5 7021-8 #### [facility] CLIA [id number] [address] [place] [address] Monocytes/100 WBC (Bld) 5.5 % Normal [facility] Comment on above: Order Comment: Speci men Type: BLOOD SPECIMEN Performed By: #### 5 7021-8 #### [facility] CLIA [id number] [address] [place] [address] Neutrophils (Bld) [#/Vol] 10.08 10*3/uL High 1.45-7.50 [facility] Comment on above: Order Comment: Speci men Type: BLOOD SPECIMEN Performed By: #### 5 7021-8 #### [facility] CLIA [id number] [address] [place] [address] Neutrophils/100 WBC (Bld) 75.4 % Normal [facility] Comment on above: Order Comment: Speci men Type: BLOOD SPECIMEN Performed By: #### 5 7021-8 #### [facility] CLIA [id number] [address] [place] [address] Nucleated RBC (Bld) [#/Vol] 10*3/uL Normal <0.01 [facility] Comment on above: Order Comment: Speci men Type: BLOOD SPECIMEN Performed By: #### 5 7021-8 #### [facility] CLIA [id number] [address] [place] [address] Nucleated RBC/100 WBC (Bld) [Ratio] 0.0 /100 WBC Normal 0.0 [facility] Comment on above: Order Comment: Speci men Type: BLOOD SPECIMEN Performed By: #### 5 7021-8 #### [facility] CLIA [id number] [address] [place] [address] Platelet mean volume (Bld) [Entitic vol] 9.9 fL Normal 9.0-12.7 [facility] Comment on above: Order Comment: Speci men Type: BLOOD SPECIMEN Performed By: #### 5 7021-8 #### [facility] CLIA [id number] [address] [place] [address] Platelets (Bld) [#/Vol] 183 10*3/uL Normal 150-400 [facility] Comment on above: Order Comment: Speci men Type: BLOOD SPECIMEN Performed By: #### 5 7021-8 #### [facility] CLIA [id number] [address] [place] [address] RBC (Bld) [#/Vol] 4.76 10*6/uL Normal 4.20-6.00 [facility] Comment on above: Order Comment: Speci men Type: BLOOD SPECIMEN Performed By: #### 5 7021-8 #### [facility] CLIA [id number] [address] [place] [address] WBC (Bld) [#/Vol] 13.37 10*3/uL High 3.70-11.00 [facility] Comment on above: Order Comment: Speci men Type: BLOOD SPECIMEN Performed By: #### 5 7021-8 #### [facility] CLIA [id number] [address] [place] [address] Comprehensive metabolic 2000 panelon 01-23-2021 Albumin [Mass/Vol] 4.1 g/dL Normal 3.9-4.9 [facility] Comment on above: Order Comment: Speci men Type: BLOOD SPECIMEN Performed By: #### 2 4323-8 #### [facility] CLIA [id number] [address] [place] [address] ALP [Catalytic activity/Vol] 266 U/L High 38-113 [facility] Comment on above: Order Comment: Speci men Type: BLOOD SPECIMEN Performed By: #### 2 4323-8 #### [facility] CLIA [id number] [address] [place] [address] ALT With P-5'-P [Catalytic activity/Vol] 38 U/L Normal 10-54 [facility] Comment on above: Order Comment: Speci men Type: BLOOD SPECIMEN Performed By: #### 2 4323-8 #### [facility] CLIA [id number] [address] [place] [address] Anion gap [Moles/Vol] 10 mmol/L Normal 9-18 [facility] Comment on above: Order Comment: Speci men Type: BLOOD SPECIMEN Performed By: #### 2 4323-8 #### [facility] CLIA [id number] [address] [place] [address] AST With P-5'-P [Catalytic activity/Vol] 35 U/L Normal 14-40 [facility] Comment on above: Order Comment: Speci men Type: BLOOD SPECIMEN Performed By: #### 2 4323-8 #### [facility] CLIA [id number] [address] [place] [address] Bilirubin [Mass/Vol] 0.7 mg/dL Normal 0.2-1.3 [facility] Comment on above: Order Comment: Speci men Type: BLOOD SPECIMEN Performed By: #### 2 4323-8 #### [facility] CLIA [id number] [address] [place] [address] Calcium [Mass/Vol] 8.9 mg/dL Normal 8.5-10.2 [facility] Comment on above: Order Comment: Speci men Type: BLOOD SPECIMEN Performed By: #### 2 4323-8 #### [facility] CLIA [id number] [address] [place] [address] Chloride [Moles/Vol] 98 mmol/L Normal 97-105 [facility] Comment on above: Order Comment: Speci men Type: BLOOD SPECIMEN Performed By: #### 2 4323-8 #### [facility] CLIA [id number] [address] [place] [address] CO2 [Moles/Vol] 26 mmol/L Normal 22-30 [facility] Comment on above: Order Comment: Speci men Type: BLOOD SPECIMEN Performed By: #### 2 4323-8 #### [facility] CLIA [id number] [address] [place] [address] Creatinine [Mass/Vol] 0.78 mg/dL Normal 0.73-1.22 [facility] Comment on above: Order Comment: Speci men Type: BLOOD SPECIMEN Performed By: #### 2 4323-8 #### [facility] CLIA [id number] [address] [place] [address] GFR/1.73 sq M.predicted MDRD (S/P/Bld) [Vol rate/Area] mL/min/{1.73_m2} Normal [facility] Comment on above: Order Comment: Speci men [...] GFR. Performed By: #### 2 4323-8 #### [facility] CLIA [id number] [address] [place] [address] Glucose [Mass/Vol] 166 mg/dL High 74-99 [facility] Comment on above: Order Comment: Speci men Type: BLOOD SPECIMEN Result Comment: The [place] Diabetes Association (ADA) provides guidance for cutoff [...] Standards of Medical Care in Diabetes 2016, [place] [employer]. Diabetes Care. 2016.39(Suppl 1). Performed By: #### 2 4323-8 #### [facility] CLIA [id number] [address] [place] [address] Potassium [Moles/Vol] 4.6 mmol/L Normal 3.7-5.1 [facility] Comment on above: Order Comment: Speci men Type: BLOOD SPECIMEN Performed By: #### 2 4323-8 #### [facility] CLIA [id number] [address] [place] [address] Protein [Mass/Vol] 7.4 g/dL Normal 6.3-8.0 [facility] Comment on above: Order Comment: Speci men Type: BLOOD SPECIMEN Performed By: #### 2 4323-8 #### [facility] CLIA [id number] [address] [place] [address] Sodium [Moles/Vol] 134 mmol/L Low 136-144 [facility] Comment on above: Order Comment: Speci men Type: BLOOD SPECIMEN Performed By: #### 2 4323-8 #### [facility] CLIA [id number] [address] [place] [address] Urea nitrogen [Mass/Vol] 11 mg/dL Normal 9-24 [facility] Comment on above: Order Comment: Speci men Type: BLOOD SPECIMEN Performed By: #### 2 4323-8 #### [facility] CLIA [id number] [address] [place] [address] HISTORY PHYSICALon HISTORY PHYSICAL HNO ID: [id number] Author: Karolina Broussard MD Service: Hospital Medicine [...] digits in the phone number beginning with ([phone]). We encourage the use of [employer] Secure Chat. PCP: Reinaldo Paez MD Admitting [...] was kept on drip. Patient transferred to [facility] under EP for possible ablation. 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 Normal [facility] NURSING PROGon 01-23-2021 NURSING PROG HNO ID: [id number] Author: Kyra Hinson RN Service: Nursing Author Type: Registered Nurse Type: Nursing Progress Note Filed: 01/23/2021 6:37 PM Note Text: Summary: transfer note Transferred from [facility] to 4202 via wheelchair with all belongings. 4200 staff in room with patient. Normal [facility] CASE MGT INIT ASSSTEPHENon 2020 CASE MGT INIT ASSES HNO ID: [id number] Author: Connie Grier RN Service: ? Author Type: Registered Nurse Type: Care Mgt Initial Assessment Filed: 01/22/2021 11:53 AM Note Text: CARE MANAGEMENT: ASSESSMENT AND DISCHARGE PLAN SERVICE DATE: January 22, 2021 SERVICE TIME: 11:52 AM PRIMARY CARE PHYSICIAN: Reinaldo Paez MD ADMISSION STATUS: Inpatient Needs Prior to Discharge: Discharge Prescriptions MEDICAL: 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 Last discharge within 30 days: No Advance Directive: Current Advance Directive: None Fare Enforcement Officer Attempted to Assist with AD Completion: Yes [...] Has the Patient Been in a Senior Living Facility in the Past 30 days?: No SOCIAL: Living Arrangements: Assisted Living Lives With: Alone Facility Information: [facility] Financial Resources: Disabled Primary Contact: Extended Emergency Contact Information Primary Emergency Contact: No,One Relation: None Supportive Patient Contact:: Yes Contact Resources: Family Family Name/Phone: [email or web address] Calvin Caregiver AssessmentCaregiver is ready, willing and [...] Completely I feel financially burdened by my [id number] expenses for my prescription medication:: 0 - Disagree Completely Risk Score: 0 Patient is categorized as: Low risk < 2 Are you interested in bedside delivery of your medications? No Is Patient Psychosocially Complex?: No ASSESSMENT AND PLAN: Medical Needs: Medical Needs: Two or more chronic diseases;Obesity Psychosocial Needs: Psychosocial Needs: Mental Health Diagnosis Mental Health Information: MDD FREEDOM OF CHOICE EXPLAINED: [place] of Choice Given: No Reason Not Given: No placements necessary POTENTIAL TRANSITION PLANS Home Met with pt, explained CM role. Resides in [place] at [facility]. Facility manages his meds. He can drive if he wants to. Plan is to return to [place]. SIGNATURE: Connie Grier RN PATIENT NAME: Derrell Hoyt DATE: January 22, 2021 TIME: 11:52 AM PAGER/CONTACT #: [phone] Normal [facility] CBC W Auto Differential pane l (Bld)on 01-22-2021 Basophils (Bld) [#/Vol] 0.07 10*3/uL Normal <0.11 [facility] Comment on above: Order Comment: Speci men Type: BLOOD SPECIMEN Performed By: #### 5 7021-8 #### [facility] CLIA [id number] [address] [place] [address] Basophils/100 WBC (Bld) 0.5 % Normal A [facility] Comment on above: Order Comment: Speci men Type: BLOOD SPECIMEN Performed By: #### 5 7021-8 #### [facility] CLIA [id number] [address] [place] [address] Differential cell count method Nom (Bld) Auto Normal [facility] Comment on above: Order Comment: Speci men Type: BLOOD SPECIMEN Performed By: #### 5 7021-8 #### [facility] CLIA [id number] [address] [place] [address] Eosinophils (Bld) [#/Vol] 0.51 10*3/uL High <0.46 [facility] Comment on above: Order Comment: Speci men Type: BLOOD SPECIMEN Performed By: #### 5 7021-8 #### [facility] CLIA [id number] [address] [place] [address] Eosinophils/100 WBC (Bld) 3.9 % Normal [facility] Comment on above: Order Comment: Speci men Type: BLOOD SPECIMEN Performed By: #### 5 7021-8 #### [facility] CLIA [id number] [address] [place] [address] Erythrocyte distribution width (RBC) [Ratio] 14.8 % Normal 11.5-15.0 [facility] Comment on above: Order Comment: Speci men Type: BLOOD SPECIMEN Performed By: #### 5 7021-8 #### [facility] CLIA [id number] [address] [place] [address] Hematocrit (Bld) [Volume fraction] 41.8 % Normal 39.0-51.0 [facility] Comment on above: Order Comment: Speci men Type: BLOOD SPECIMEN Performed By: #### 5 7021-8 #### [facility] CLIA [id number] [address] [place] [address] Hemoglobin (Bld) [Mass/Vol] 13.2 g/dL Normal 13.0-17.0 [facility] Comment on above: Order Comment: Speci men Type: BLOOD SPECIMEN Performed By: #### 5 7021-8 #### [facility] CLIA [id number] [address] [place] [address] IMMATURE GRAN % 0.8 % Normal [facility] Comment on above: Order Comment: Speci men Type: BLOOD SPECIMEN Performed By: #### 5 7021-8 #### [facility] CLIA [id number] [address] [place] [address] IMMATURE GRAN ABS 0.10 k/uL High <0.10 [facility] Comment on above: Order Comment: Speci men Type: BLOOD SPECIMEN Performed By: #### 5 7021-8 #### [facility] CLIA [id number] [address] [place] [address] Lymphocytes (Bld) [#/Vol] 1.49 10*3/uL Normal 1.00-4.00 [facility] Comment on above: Order Comment: Speci men Type: BLOOD SPECIMEN Performed By: #### 5 7021-8 #### [facility] CLIA [id number] [address] [place] [address] Lymphocytes/100 WBC (Bld) 11.5 % Normal [facility] Comment on above: Order Comment: Speci men Type: BLOOD SPECIMEN Performed By: #### 5 7021-8 #### [facility] CLIA [id number] [address] [place] [address] MCH (RBC) [Entitic mass] 30.3 pg Normal 26.0-34.0 [facility] Comment on above: Order Comment: Speci men Type: BLOOD SPECIMEN Performed By: #### 5 7021-8 #### [facility] CLIA [id number] [address] [place] [address] MCHC (RBC) [Mass/Vol] 31.6 g/dL Normal 30.5-36.0 [facility] Comment on above: Order Comment: Speci men Type: BLOOD SPECIMEN Performed By: #### 5 7021-8 #### [facility] CLIA [id number] [address] [place] [address] MCV (RBC) [Entitic vol] 95.9 fL Normal 80.0-100.0 [facility] Comment on above: Order Comment: Speci men Type: BLOOD SPECIMEN Performed By: #### 5 7021-8 #### [facility] CLIA [id number] [address] [place] [address] Monocytes (Bld) [#/Vol] 0.78 10*3/uL Normal <0.87 [facility] Comment on above: Order Comment: Speci men Type: BLOOD SPECIMEN Performed By: #### 5 7021-8 #### [facility] CLIA [id number] [address] [place] [address] Monocytes/100 WBC (Bld) 6.0 % Normal A [facility] Comment on above: Order Comment: Speci men Type: BLOOD SPECIMEN Performed By: #### 5 7021-8 #### [facility] CLIA [id number] [address] [place] [address] Neutrophils (Bld) [#/Vol] 10.05 10*3/uL High 1.45-7.50 [facility] Comment on above: Order Comment: Speci men Type: BLOOD SPECIMEN Performed By: #### 5 7021-8 #### [facility] CLIA [id number] [address] [place] [address] Neutrophils/100 WBC (Bld) 77.3 % Normal [facility] Comment on above: Order Comment: Speci men Type: BLOOD SPECIMEN Performed By: #### 5 7021-8 #### [facility] CLIA [id number] [address] [place] [address] Nucleated RBC (Bld) [#/Vol] 10*3/uL Normal <0.01 [facility] Comment on above: Order Comment: Speci men Type: BLOOD SPECIMEN Performed By: #### 5 7021-8 #### [facility] CLIA [id number] [address] [place] [address] Nucleated RBC/100 WBC (Bld) [Ratio] 0.0 /100 WBC Normal 0.0 [facility] Comment on above: Order Comment: Speci men Type: BLOOD SPECIMEN Performed By: #### 5 7021-8 #### [facility] CLIA [id number] [address] [place] [address] Platelet mean volume (Bld) [Entitic vol] 10.5 fL Normal 9.0-12.7 [facility] Comment on above: Order Comment: Speci men Type: BLOOD SPECIMEN Performed By: #### 5 7021-8 #### [facility] CLIA [id number] [address] [place] [address] Platelets (Bld) [#/Vol] 177 10*3/uL Normal 150-400 [facility] Comment on above: Order Comment: Speci men Type: BLOOD SPECIMEN Performed By: #### 5 7021-8 #### [facility] CLIA [id number] [address] [place] [address] RBC (Bld) [#/Vol] 4.36 10*6/uL Normal 4.20-6.00 [facility] Comment on above: Order Comment: Speci men Type: BLOOD SPECIMEN Performed By: #### 5 7021-8 #### [facility] CLIA [id number] [address] [place] [address] WBC (Bld) [#/Vol] 13.00 10*3/uL High 3.70-11.00 [facility] Comment on above: Order Comment: Speci men Type: BLOOD SPECIMEN Performed By: #### 5 7021-8 #### [facility] CLIA [id number] [address] [place] [address] Comprehensive metabolic 2000 panelon 01-22-2021 Albumin [Mass/Vol] 3.8 g/dL Low 3.9-4.9 [facility] Comment on above: Order Comment: Speci men Type: BLOOD SPECIMEN Performed By: #### 2 4323-8 #### [facility] CLIA [id number] [address] [place] [address] ALP [Catalytic activity/Vol] 217 U/L High 38-113 [facility] Comment on above: Order Comment: Speci men Type: BLOOD SPECIMEN Performed By: #### 2 4323-8 #### [facility] CLIA [id number] [address] [place] [address] ALT With P-5'-P [Catalytic activity/Vol] 33 U/L Normal 10-54 [facility] Comment on above: Order Comment: Speci men Type: BLOOD SPECIMEN Performed By: #### 2 4323-8 #### [facility] CLIA [id number] [address] [place] [address] Anion gap [Moles/Vol] 8 mmol/L Low 9-18 [facility] Comment on above: Order Comment: Speci men Type: BLOOD SPECIMEN Performed By: #### 2 4323-8 #### [facility] CLIA [id number] [address] [place] [address] AST With P-5'-P [Catalytic activity/Vol] 30 U/L Normal 14-40 [facility] Comment on above: Order Comment: Speci men Type: BLOOD SPECIMEN Performed By: #### 2 4323-8 #### [facility] CLIA [id number] [address] [place] [address] Bilirubin [Mass/Vol] 0.5 mg/dL Normal 0.2-1.3 [facility] Comment on above: Order Comment: Speci men Type: BLOOD SPECIMEN Performed By: #### 2 4323-8 #### [facility] CLIA [id number] [address] [place] [address] Calcium [Mass/Vol] 8.7 mg/dL Normal 8.5-10.2 [facility] Comment on above: Order Comment: Speci men Type: BLOOD SPECIMEN Performed By: #### 2 4323-8 #### [facility] CLIA [id number] [address] [place] [address] Chloride [Moles/Vol] 98 mmol/L Normal 97-105 [facility] Comment on above: Order Comment: Speci men Type: BLOOD SPECIMEN Performed By: #### 2 4323-8 #### [facility] CLIA [id number] [address] [place] [address] CO2 [Moles/Vol] 27 mmol/L Normal 22-30 [facility] Comment on above: Order Comment: Speci men Type: BLOOD SPECIMEN Performed By: #### 2 4323-8 #### [facility] CLIA [id number] [address] [place] [address] Creatinine [Mass/Vol] 0.82 mg/dL Normal 0.73-1.22 [facility] Comment on above: Order Comment: Speci men Type: BLOOD SPECIMEN Performed By: #### 2 4323-8 #### [facility] CLIA [id number] [address] [place] [address] GFR/1.73 sq M.predicted MDRD (S/P/Bld) [Vol rate/Area] mL/min/{1.73_m2} Normal [facility] Comment on above: Order Comment: Speci men [...] GFR. Performed By: #### 2 4323-8 #### [facility] CLIA [id number] [address] [place] [address] Glucose [Mass/Vol] 175 mg/dL High 74-99 [facility] Comment on above: Order Comment: Speci men Type: BLOOD SPECIMEN Result Comment: The [place] [employer] (ADA) provides guidance for cutoff [...] Standards of Medical Care in Diabetes 2016, [place] [employer]. Diabetes Care. 2016.39(Suppl 1). Performed By: #### 2 4323-8 #### [facility] CLIA [id number] [address] [place] [address] Potassium [Moles/Vol] 4.4 mmol/L Normal 3.7-5.1 [facility] Comment on above: Order Comment: Speci men Type: BLOOD SPECIMEN Performed By: #### 2 4323-8 #### [facility] CLIA [id number] [address] [place] [address] Protein [Mass/Vol] 6.8 g/dL Normal 6.3-8.0 [facility] Comment on above: Order Comment: Speci men Type: BLOOD SPECIMEN Performed By: #### 2 4323-8 #### [facility] CLIA [id number] [address] [place] [address] Sodium [Moles/Vol] 133 mmol/L Low 136-144 [facility] Comment on above: Order Comment: Speci men Type: BLOOD SPECIMEN Performed By: #### 2 4323-8 #### [facility] CLIA [id number] [address] [place] [address] Urea nitrogen [Mass/Vol] 14 mg/dL Normal 9-24 [facility] Comment on above: Order Comment: Speci men Type: BLOOD SPECIMEN Performed By: #### 2 4323-8 #### [facility] CLIA [id number] [address] [place] [address] CBC W Auto Differential pane l (Bld)on 01-21-2021 Basophils (Bld) [#/Vol] 0.12 10*3/uL High <0.11 [facility] Comment on above: Order Comment: Speci men Type: BLOOD SPECIMEN Performed By: #### 5 7021-8 #### [facility] CLIA [id number] [address] [place] [address] Basophils/100 WBC (Bld) 0.8 % Normal A [facility] Comment on above: Order Comment: Speci men Type: BLOOD SPECIMEN Performed By: #### 5 7021-8 #### [facility] CLIA [id number] [address] [place] [address] Differential cell count method Nom (Bld) Auto Normal [facility] Comment on above: Order Comment: Speci men Type: BLOOD SPECIMEN Performed By: #### 5 7021-8 #### [facility] CLIA [id number] [address] [place] [address] Eosinophils (Bld) [#/Vol] 0.19 10*3/uL Normal <0.46 [facility] Comment on above: Order Comment: Speci men Type: BLOOD SPECIMEN Performed By: #### 5 7021-8 #### [facility] CLIA [id number] [address] [place] [address] Eosinophils/100 WBC (Bld) 1.2 % Normal [facility] Comment on above: Order Comment: Speci men Type: BLOOD SPECIMEN Performed By: #### 5 7021-8 #### [facility] CLIA [id number] [address] [place] [address] Erythrocyte distribution width (RBC) [Ratio] 15.0 % Normal 11.5-15.0 [facility] Comment on above: Order Comment: Speci men Type: BLOOD SPECIMEN Performed By: #### 5 7021-8 #### [facility] CLIA [id number] [address] [place] [address] Hematocrit (Bld) [Volume fraction] 43.1 % Normal 39.0-51.0 [facility] Comment on above: Order Comment: Speci men Type: BLOOD SPECIMEN Performed By: #### 5 7021-8 #### [facility] CLIA [id number] [address] [place] [address] Hemoglobin (Bld) [Mass/Vol] 13.7 g/dL Normal 13.0-17.0 [facility] Comment on above: Order Comment: Speci men Type: BLOOD SPECIMEN Performed By: #### 5 7021-8 #### [facility] CLIA [id number] [address] [place] [address] IMMATURE GRAN % 0.9 % Normal [facility] Comment on above: Order Comment: Speci men Type: BLOOD SPECIMEN Performed By: #### 5 7021-8 #### [facility] CLIA [id number] [address] [place] [address] IMMATURE GRAN ABS 0.14 k/uL High <0.10 [facility] Comment on above: Order Comment: Speci men Type: BLOOD SPECIMEN Performed By: #### 5 7021-8 #### [facility] CLIA [id number] [address] [place] [address] Lymphocytes (Bld) [#/Vol] 2.45 10*3/uL Normal 1.00-4.00 [facility] Comment on above: Order Comment: Speci men Type: BLOOD SPECIMEN Performed By: #### 5 7021-8 #### [facility] CLIA [id number] [address] [place] [address] Lymphocytes/100 WBC (Bld) 15.9 % Normal [facility] Comment on above: Order Comment: Speci men Type: BLOOD SPECIMEN Performed By: #### 5 7021-8 #### [facility] CLIA [id number] [address] [place] [address] MCH (RBC) [Entitic mass] 30.4 pg Normal 26.0-34.0 [facility] Comment on above: Order Comment: Speci men Type: BLOOD SPECIMEN Performed By: #### 5 7021-8 #### [facility] CLIA [id number] [address] [place] [address] MCHC (RBC) [Mass/Vol] 31.8 g/dL Normal 30.5-36.0 [facility] Comment on above: Order Comment: Speci men Type: BLOOD SPECIMEN Performed By: #### 5 7021-8 #### [facility] CLIA [id number] [address] [place] [address] MCV (RBC) [Entitic vol] 95.8 fL Normal 80.0-100.0 [facility] Comment on above: Order Comment: Speci men Type: BLOOD SPECIMEN Performed By: #### 5 7021-8 #### [facility] CLIA [id number] [address] [place] [address] Monocytes (Bld) [#/Vol] 0.76 10*3/uL Normal <0.87 [facility] Comment on above: Order Comment: Speci men Type: BLOOD SPECIMEN Performed By: #### 5 7021-8 #### [facility] CLIA [id number] [address] [place] [address] Monocytes/100 WBC (Bld) 4.9 % Normal [facility] Comment on above: Order Comment: Speci men Type: BLOOD SPECIMEN Performed By: #### 5 7021-8 #### [facility] CLIA [id number] [address] [place] [address] Neutrophils (Bld) [#/Vol] 11.76 10*3/uL High 1.45-7.50 [facility] Comment on above: Order Comment: Speci men Type: BLOOD SPECIMEN Performed By: #### 5 7021-8 #### [facility] CLIA [id number] [address] [place] [address] Neutrophils/100 WBC (Bld) 76.3 % Normal [facility] Comment on above: Order Comment: Speci men Type: BLOOD SPECIMEN Performed By: #### 5 7021-8 #### [facility] CLIA [id number] [address] [place] [address] Nucleated RBC (Bld) [#/Vol] 10*3/uL Normal <0.01 [facility] Comment on above: Order Comment: Speci men Type: BLOOD SPECIMEN Performed By: #### 5 7021-8 #### [facility] CLIA [id number] [address] [place] [address] Nucleated RBC/100 WBC (Bld) [Ratio] 0.0 /100 WBC Normal 0.0 [facility] Comment on above: Order Comment: Speci men Type: BLOOD SPECIMEN Performed By: #### 5 7021-8 #### [facility] CLIA [id number] [address] [place] [address] Platelet mean volume (Bld) [Entitic vol] 10.3 fL Normal 9.0-12.7 [facility] Comment on above: Order Comment: Speci men Type: BLOOD SPECIMEN Performed By: #### 5 7021-8 #### [facility] CLIA [id number] [address] [place] [address] Platelets (Bld) [#/Vol] 180 10*3/uL Normal 150-400 [facility] Comment on above: Order Comment: Speci men Type: BLOOD SPECIMEN Performed By: #### 5 7021-8 #### [facility] CLIA [id number] [address] [place] [address] RBC (Bld) [#/Vol] 4.50 10*6/uL Normal 4.20-6.00 [facility] Comment on above: Order Comment: Speci men Type: BLOOD SPECIMEN Performed By: #### 5 7021-8 #### [facility] CLIA [id number] [address] [place] [address] WBC (Bld) [#/Vol] 15.42 10*3/uL High 3.70-11.00 [facility] Comment on above: Order Comment: Speci men Type: BLOOD SPECIMEN Performed By: #### 5 7021-8 #### [facility] CLIA [id number] [address] [place] [address] Comprehensive metabolic 2000 panelon 01-21-2021 Albumin [Mass/Vol] 4.0 g/dL Normal 3.9-4.9 [facility] Comment on above: Order Comment: Speci men Type: BLOOD SPECIMEN Performed By: #### 2 4323-8 #### [facility] CLIA [id number] [address] [place] [address] ALP [Catalytic activity/Vol] 196 U/L High 38-113 [facility] Comment on above: Order Comment: Speci men Type: BLOOD SPECIMEN Performed By: #### 2 4323-8 #### [facility] CLIA [id number] [address] [place] [address] ALT With P-5'-P [Catalytic activity/Vol] 37 U/L Normal 10-54 [facility] Comment on above: Order Comment: Speci men Type: BLOOD SPECIMEN Performed By: #### 2 4323-8 #### [facility] CLIA [id number] [address] [place] [address] Anion gap [Moles/Vol] 10 mmol/L Normal 9-18 [facility] Comment on above: Order Comment: Speci men Type: BLOOD SPECIMEN Performed By: #### 2 4323-8 #### [facility] CLIA [id number] [address] [place] [address] AST With P-5'-P [Catalytic activity/Vol] 29 U/L Normal 14-40 [facility] Comment on above: Order Comment: Speci men Type: BLOOD SPECIMEN Performed By: #### 2 4323-8 #### [facility] CLIA [id number] [address] [place] [address] Bilirubin [Mass/Vol] 0.4 mg/dL Normal 0.2-1.3 [facility] Comment on above: Order Comment: Speci men Type: BLOOD SPECIMEN Performed By: #### 2 4323-8 #### [facility] CLIA [id number] [address] [place] [address] Calcium [Mass/Vol] 8.6 mg/dL Normal 8.5-10.2 [facility] Comment on above: Order Comment: Speci men Type: BLOOD SPECIMEN Performed By: #### 2 4323-8 #### [facility] CLIA [id number] [address] [place] [address] Chloride [Moles/Vol] 99 mmol/L Normal 97-105 [facility] Comment on above: Order Comment: Speci men Type: BLOOD SPECIMEN Performed By: #### 2 4323-8 #### [facility] CLIA [id number] [address] [place] [address] CO2 [Moles/Vol] 25 mmol/L Normal 22-30 [facility] Comment on above: Order Comment: Speci men Type: BLOOD SPECIMEN Performed By: #### 2 4323-8 #### [facility] CLIA [id number] [address] [place] [address] Creatinine [Mass/Vol] 0.85 mg/dL Normal 0.73-1.22 [facility] Comment on above: Order Comment: Speci men Type: BLOOD SPECIMEN Performed By: #### 2 4323-8 #### [facility] CLIA [id number] [address] [place] [address] GFR/1.73 sq M.predicted MDRD (S/P/Bld) [Vol rate/Area] mL/min/{1.73_m2} Normal [facility] Comment on above: Order Comment: Speci men [...] GFR. Performed By: #### 2 4323-8 #### [facility] CLIA [id number] [address] [place] [address] Glucose [Mass/Vol] 156 mg/dL High 74-99 [facility] Comment on above: Order Comment: Speci men Type: BLOOD SPECIMEN Result Comment: The [place] [employer] (ADA) provides guidance for cutoff [...] Standards of Medical Care in Diabetes 2016, [place] [employer]. Diabetes Care. 2016.39(Suppl 1). Performed By: #### 2 4323-8 #### [facility] CLIA [id number] [address] [place] [address] Potassium [Moles/Vol] 4.4 mmol/L Normal 3.7-5.1 [facility] Comment on above: Order Comment: Speci men Type: BLOOD SPECIMEN Performed By: #### 2 4323-8 #### [facility] CLIA [id number] [address] [place] [address] Protein [Mass/Vol] 7.3 g/dL Normal 6.3-8.0 [facility] Comment on above: Order Comment: Speci men Type: BLOOD SPECIMEN Performed By: #### 2 4323-8 #### [facility] CLIA [id number] [address] [place] [address] Sodium [Moles/Vol] 134 mmol/L Low 136-144 [facility] Comment on above: Order Comment: Speci men Type: BLOOD SPECIMEN Performed By: #### 2 4323-8 #### [facility] CLIA [id number] [address] [place] [address] Urea nitrogen [Mass/Vol] 16 mg/dL Normal 9-24 [facility] Comment on above: Order Comment: Speci men Type: BLOOD SPECIMEN Performed By: #### 2 4323-8 #### [facility] CLIA [id number] [address] [place] [address] Gas and Carbon monoxide pane l (BldV)on 01-21-2021 Base excess Calc (BldV) [Moles/Vol] 0.7 mmol/L Normal 0-2 [facility] Comment on above: Order Comment: Speci men Type: BLOOD SPECIMEN Performed By: #### 5 7021-8 #### [facility] CLIA [id number] [address] [place] [address] Body temperature 97.7 [degF] Normal [facility] Comment on above: Order Comment: Speci men Type: BLOOD SPECIMEN Performed By: #### 5 7021-8 #### [facility] CLIA [id number] [address] [place] [address] CALCIUM IONIZED, PH CORRECTED 1.10 mmol/L Normal 1.08-1.30 [facility] Comment on above: Order Comment: Speci men Type: BLOOD SPECIMEN Performed By: #### 5 7021-8 #### [facility] CLIA [id number] [address] [place] [address] Calcium.ionized (BldV) [Mass/Vol] 1.13 mmol/L Normal 1.08-1.30 [facility] Comment on above: Order Comment: Speci men Type: BLOOD SPECIMEN Performed By: #### 5 7021-8 #### [facility] CLIA [id number] [address] [place] [address] Carboxyhemoglobin (BldV) [Mass fraction] 2.2 % High 0.0-2.0 [facility] Comment on above: Order Comment: Speci men Type: BLOOD SPECIMEN Result Comment: Carb oxyhemoglobin Reference Range for Smokers: 2.0-8.0% Performed By: #### 5 7021-8 #### [facility] CLIA [id number] [address] [place] [address] CO2 (BldV) [Partial pressure] 51 mm[Hg] Normal 42-55 [facility] Comment on above: Order Comment: Speci men Type: BLOOD SPECIMEN Performed By: #### 5 7021-8 #### [facility] CLIA [id number] [address] [place] [address] CO2 [Moles/Vol] 24.0 mmol/L Low 25-29 [facility] Comment on above: Order Comment: Speci men Type: BLOOD SPECIMEN Performed By: #### 5 7021-8 #### [facility] CLIA [id number] [address] [place] [address] CO2 adjusted to patient's actual temperature (BldV) [Partial pressure] 50 mmHg Normal 42-55 [facility] Comment on above: Order Comment: Speci men Type: BLOOD SPECIMEN Performed By: #### 5 7021-8 #### [facility] CLIA [id number] [address] [place] [address] Glucose [Mass/Vol] 181 mg/dL High 60-105 [facility] Comment on above: Order Comment: Speci men Type: BLOOD SPECIMEN Performed By: #### 5 7021-8 #### [facility] CLIA [id number] [address] [place] [address] HCO3 (Bld) [Moles/Vol] 26.9 mmol/L Normal 24-28 [facility] Comment on above: Order Comment: Speci men Type: BLOOD SPECIMEN Performed By: #### 5 7021-8 #### [facility] CLIA [id number] [address] [place] [address] Hematocrit (Bld) [Volume fraction] 43.1 % Normal 39.0-51.0 [facility] Comment on above: Order Comment: Speci men Type: BLOOD SPECIMEN Performed By: #### 5 7021-8 #### [facility] CLIA [id number] [address] [place] [address] Hemoglobin (Bld) [Mass/Vol] 14.0 g/dL Normal 13.0-17.0 [facility] Comment on above: Order Comment: Speci men Type: BLOOD SPECIMEN Performed By: #### 5 7021-8 #### [facility] CLIA [id number] [address] [place] [address] Methemoglobin (Bld) [Mass fraction] % Normal 0.0-1.5 [facility] Comment on above: Order Comment: Speci men Type: BLOOD SPECIMEN Performed By: #### 5 7021-8 #### [facility] CLIA [id number] [address] [place] [address] O2 THERAPY NC = Nasal Cannula Normal [facility] Comment on above: Order Comment: Speci men Type: BLOOD SPECIMEN Performed By: #### 5 7021-8 #### [facility] CLIA [id number] [address] [place] [address] Oxygen (BldV) [Partial pressure] 150 mm[Hg] High 35-45 [facility] Comment on above: Order Comment: Speci men Type: BLOOD SPECIMEN Performed By: #### 5 7021-8 #### [facility] CLIA [id number] [address] [place] [address] Oxygen adjusted to patient's actual temperature (BldV) [Partial pressure] 147 mmHg High 35-45 [facility] Comment on above: Order Comment: Speci men Type: BLOOD SPECIMEN Performed By: #### 5 7021-8 #### [facility] CLIA [id number] [address] [place] [address] Oxygen saturation in Blood 97.6 % High 60-85 [facility] Comment on above: Order Comment: Speci men Type: BLOOD SPECIMEN Performed By: #### 5 7021-8 #### [facility] CLIA [id number] [address] [place] [address] Oxyhemoglobin (BldV) [Mass fraction] 95 % High 60-85 [facility] Comment on above: Order Comment: Speci men Type: BLOOD SPECIMEN Performed By: #### 5 7021-8 #### [facility] CLIA [id number] [address] [place] [address] pH (BldV) 7.34 [pH] Normal 7.32-7.42 [facility] Comment on above: Order Comment: Speci men Type: BLOOD SPECIMEN Performed By: #### 5 7021-8 #### [facility] CLIA [id number] [address] [place] [address] pH adjusted to patient's actual temperature (BldV) 7.35 Normal 7.32-7.42 [facility] Comment on above: Order Comment: Speci men Type: BLOOD SPECIMEN Performed By: #### 5 7021-8 #### [facility] CLIA [id number] [address] [place] [address] Potassium [Moles/Vol] 4.6 mmol/L Normal 3.5-5.0 [facility] Comment on above: Order Comment: Speci men Type: BLOOD SPECIMEN Performed By: #### 5 7021-8 #### [facility] CLIA [id number] [address] [place] [address] Sodium [Moles/Vol] 134 mmol/L Low 136-144 [facility] Comment on above: Order Comment: Speci men Type: BLOOD SPECIMEN Performed By: #### 5 7021-8 #### [facility] CLIA [id number] [address] [place] [address] HGB A1Con 01-21-2021 Average glucose Estimated from glycated hemoglobin (Bld) [Mass/Vol] 197 mg/dL Normal [facility] Comment on above: Order Comment: Speci men Type: BLOOD SPECIMEN Result Comment: eAG: (Estimated average glucose) is a calculated value from HgbA1c and is sales service representative of the average blood glucose level in the last 2-3 month period. Performed By: #### 5 7021-8 #### [facility] CLIA [id number] [address] [place] [id number] HbA1c (Bld) [Mass fraction] 8.5 % High 4.3-5.6 [facility] Comment on above: Order Comment: Speci men Type: BLOOD SPECIMEN Result Comment: [facility] Diabetes Association guidelines indicate that patients with HgbA1c in the range 5.7-6.4% are at increased risk for development of diabetes, and intervention by lifestyle modification may be beneficial. HgbA1c greater or equal to 6.5% is considered diagnostic of diabetes. Performed By: #### 5 7021-8 #### [facility] CLIA [id number] [address] [place] [address] Magnesium SerPl-mCncon 01-21 Magnesium [Mass/Vol] 2.0 mg/dL Normal 1.7-2.3 [facility] Comment on above: Order Comment: Speci men Type: BLOOD SPECIMEN Performed By: #### 5 7021-8 #### [facility] CLIA [id number] [address] [place] [address] PROCALCITONIN (LAB)on 2020 Procalcitonin [Mass/Vol] 0.13 ng/mL High <0.09 [facility] Comment on above: Order Comment: Speci men Type: BLOOD SPECIMEN Result Comment: For a guided interpretation of test results, please visit the Change in Procalcitonin Calculator, [email or web address]. Performed By: #### P ROCAL #### [facility] CLIA [id number] [address] [place] [address] Phosphate SerPl-mCncon 01-21 Phosphate [Mass/Vol] 3.9 mg/dL Normal 2.7-4.8 [facility] Comment on above: Order Comment: Speci men Type: BLOOD SPECIMEN Performed By: #### 5 7021-8 #### [facility] CLIA [id number] [address] [place] [address] SARS-CoV-2 RNA Resp Ql NAMAN+p robeon 01-21-2021 SARS-CoV-2 (COVID-19) RNA NAMAN+probe Ql (Resp) COVID 19 RESULT: SARS-CoV-2 (Agent of COVID-19) Not Detected by PCR. This test has been authorized by FDA under an Emergency Use Authorization (EUA) Normal [facility] Comment on above: Performed By: #### 9 4500-6 ####[facility] [id number] [place] [address] STAPH AUREUS PCRon 1 S. aureus and MRSA panel NAMAN+probe (Nose) Normal Negative [facility] Comment on above: Order Comment: Speci men Type: SWAB OF INTERNAL NOSE Result Comment: Nega tive for Staphylococcus aureus by PCR. Negative for MRSA by PCR Performed By: #### S APCR #### [facility] CLIA [id number] [address] [place] [address] HISTORY PHYSICALon HISTORY PHYSICAL HNO ID: [id number] Author: Mikhail Vinson MD Service: Cardiovascular Medicine [...] was kept on drip. Patient transferred to [facility] under EP for possible ablation. Most [...] - ( (more content not included)... Normal [facility] XA-Cardiac IMPORTon 01-19-20 XA-Cardiac IMPORT Images were obtained outside of [facility] [id number] [facility] CNOVon 09-11-2018 CNOV Office Visit (PLWDMR ) -------- DERRELL HOYT ([id number]) 1965 M Date Time Provider Department 09/11/18 8:00 AM RABIA POE, (AGRICULTURAL SALES REPRESENTATIVE) PLWDMR During your visit today, we recorded the following information about you: Temperature Pulse Respiration Blood pressure 98.2 degrees 87/minute 18/minute 176/99 Rabia Poe APRN.AGRICULTURAL SALES REPRESENTATIVE 09/23/2018 5:07 AM Signed DATE VISIT: 09/11/2018 REASON FOR VISIT: Follow-up, right great toe and left lower leg wounds. HISTORY OF PRESENT ILLNESS: Derrell Hoyt is a 53 year old male who presents to the [facility] for further evaluation and [...] times daily. Dx: DM 250.0 Insulin: No sulfamethoxazole-trimeth oprim (BACTRIM DS) 800-160 mg per tablet Take [...] Rubor of Dependency: Negative (Y) Positive (N) De Borgia-Weistein Examination: Leg/ankle Measurements Right Calf: 50.0 cm [...] Double layer F tubigrip applied bilaterally. DARELL WRAP/SurePress/Tubi-as400 programmer : Foot is warm and pink before and [...] shoes. Rx given. Rx: compression stockings Rabia Poe APRN.AGRICULTURAL SALES REPRESENTATIVE Charge Capture: [id number] Barbara Lorenzo MA, FAHEEM 09/11/2018 1:17 PM Addendum Nursing Note See provider note for wound description and measurements Dressing removed In the presence and direction of the provider wound care as written below: Pedal pulses doppled per provider: Consent captured per provider for debridement good until January 2019 for Latoya - States his problem started with a scratch to his LLE calf posterior . MHO DM , obesity,.HTN, H/O smoking but not current. BiLE edema . Lives with a room mate, is in long-term. Thickened and scaling on BiLE 1. Right first toe plantar surface: Wound remains healed. 2. Left posterior calf: Wound remains healed Legs washed with dial soap and water. Vaseline ointment liberally applied to both lower legs. Double layer F tubigrip applied bilaterally. DARELL WRAP/SurePress/Tubi-as400 programmer : Foot is warm and pink before and [...] following changes to the Wound Center at [phone] or go to the Emergency Department:? Fever [...] 28.0 cm Length : 51.0 cm Rabia Poe/[facility] Referring Provider: LUKAS PEREZ [[id number]] Allergies As of Date: 09/11/2018 (No Known Allergies) Date Reviewed: 09/11/2018 Reviewed by: Barbara (Faheem) FAHEEM Lorenzo - Fully Assessed Reason for [...] Robert Hoyt Wound location: Right great toe and [...] following changes to the Wound Center at [phone] or go to the Emergency Department:? Fever [...] 28.0 cm Length : 51.0 cm Rabia Poe/[facility] Visit Notes: >> Barbara Ramsey) FAHEEM Lorenzo FriSep 11, 2018 8:21 AM Status: Addendum Nursing Note See provider note for wound description and measurements Dressing removed In the presence and direction of the provider wound care as written below: Pedal pulses doppled per provider: Consent captured per provider for debridement good until January 2019 for Latoya ___ States his problem started with a scratch to his LLE calf posterior . MHO DM , obesity,.HTN, H/O smoking but not current. BiLE edema . Lives with a room mate, is in long-term. Thickened and scaling on BiLE 1. Right first toe plantar surface: Wound remains healed. 2. Left posterior calf: Wound remains healed Legs washed with dial soap and water. Vaseline ointment liberally applied to both lower legs. Double layer F tubigrip applied bilaterally. DARELL WRAP/SurePress/Tubi-as400 programmer : Foot is warm and pink before and [...] Encounter Status:Closed by RABIA POE on 09/23/18 [facility] PROGRESSon 09-11-2018 Protein mass conc HNO ID: [id number] Author: Rabia Soto (Insulation Technician) Consuelo Service: ? Author Type: Nurse Practitioner Type: Progress Notes Filed: 09/23/2018 5:07 AM Note Text: DATE VISIT: 09/11/2018 REASON FOR VISIT: Follow-up, right great toe and left lower leg wounds. HISTORY OF PRESENT ILLNESS: Derrell Hoyt is a 53 year old male who presents to the [facility] for further evaluation and [...] times daily. Dx: DM 250.0 Insulin: No sulfamethoxazole-trimeth oprim (BACTRIM DS) 800-160 mg per tablet Take [...] Rubor of Dependency: Negative (Y) Positive (N) De Borgia-Weistein Examination: Leg/ankle Measurements Right Calf: 50.0 cm [...] Double layer F tubigrip applied bilaterally. DARELL WRAP/SurePress/Tubi-as400 programmer : Foot is warm and pink before and [...] Rx given. Rx: compression stockings Rabia Poe, SOCIAL DIRECTOR.AGRICULTURAL SALES REPRESENTATIVE Charge Capture: [id number] [facility] 09-04-2018 CN Office Visit (PLWDMR ) -------- DERRELL HOYT ([id number]) 1965 M Date Time Provider Department 09/04/18 2:45 PM RABIA POE, (AGRICULTURAL SALES REPRESENTATIVE) PLWDMR During your visit today, we recorded the following information about you: Temperature Pulse Respiration Blood pressure 98.6 degrees 88/minute 20/minute 187/88 Barbara Lorenzo MA, MA 09/04/2018 2:37 PM Signed WOUND CENTER HYPERBARIC [...] debridement good until January 2019 for Latoya - States his problem started with a scratch to his LLE calf posterior . MHO DM , obesity,.HTN, H/O smoking but not current. BiLE edema . Lives with a room mate, is in long-term. Thickened and scaling on BiLE 1. Right [...] up with [employer] for diabetic shoes CHIRAG Luong, SOCIAL DIRECTOR.AGRICULTURAL SALES REPRESENTATIVE 09/14/2018 10:40 AM Signed DATE VISIT: REASON FOR VISIT: Non-healing wounds of the right great toe and left lower leg. HISTORY OF PRESENT ILLNESS: Derrell Hoyt is a 53 year old male who presents to the [facility] for further evaluation and [...] times daily. Dx: DM 250.0 Insulin: No sulfamethoxazole-trimeth oprim (BACTRIM DS) 800-160 mg per tablet Take [...] Rubor of Dependency: Negative (Y) Positive (N) De Borgia-Weistein Examination: Leg/ankle Measurements Right Calf: 50.0 cm [...] Also, venous doppler study to evaluate for icu staff nurse incompetence. Follow-up is scheduled in 1 week, sooner with any concerns or worsening symptoms. - See patient instructions for further recommendations. - Pt education along with discharge instructions given to patient - Discussed Red Flag signs and when to go to ER. - Pt agreeable with plan and verbalize understanding. Rabia Poe APRN.[facility] Charge Capture: [id number] Yasemin Inman RN, RN 09/04/2018 2:48 PM Signed WOUND CARE INSTRUCTIONS- Derrell Robert Hoyt Wound location: Right great toe and [...] following changes to the Wound Center at [phone] or go to the Emergency Department:? Fever [...] following changes to the Wound Center at [phone] or go to the Emergency Department:? Fever [...] debridement good until January 2019 for Latoya ___ States his problem started with a scratch to his LLE calf posterior . MHO DM , obesity,.HTN, H/O smoking but not current. BiLE edema . Lives with a room mate, is in long-term. Thickened and scaling on BiLE 1. Right [...] clinic Elevate your legs Follow up with [facility] for diabetic shoes Yasemin Inman RN Encounter Status:Closed by RABIA POE on 09/14/18 [facility] PROGRESSon 09-04-2018 Protein mass conc HNO ID: [id number] Author: Rabia Herman) Consuelo Service: ? Author Type: Nurse Practitioner Type: Progress Notes Filed: 09/14/2018 10:40 AM Note Text: DATE VISIT: REASON FOR VISIT: Non-healing wounds of the right great toe and left lower leg. HISTORY OF PRESENT ILLNESS: Derrell Hoyt is a 53 year old male who presents to the [facility] for further evaluation and [...] times daily. Dx: DM 250.0 Insulin: No sulfamethoxazole-trimeth oprim (BACTRIM DS) 800-160 mg per tablet Take [...] Rubor of Dependency: Negative (Y) Positive (N) De Borgia-Weistein Examination: Leg/ankle Measurements Right Calf: 50.0 cm [...] Also, venous doppler study to evaluate for icu staff nurse incompetence. Follow-up is scheduled in 1 week, sooner with any concerns or worsening symptoms. - See patient instructions for further recommendations. - Pt education along with discharge instructions given to patient - Discussed Red Flag signs and when to go to ER. - Pt agreeable with plan and verbalize understanding. Rabia Poe APRN.[facility]: [id number]PLWDMR ) -------- DERRELL HOYT ([id number]) 1965 M Date Time Provider Department 08/28/18 8:00 AM RABIA POE, ([facility]) PLWDMR During your visit today, we recorded the following information about you: Temperature Pulse Respiration Blood pressure 98.4 degrees 93/minute 19/minute 144/65 Rabia Poe APRN.CNP 09/07/2018 4:56 AM Signed DATE VISIT: 08/28/2018 REASON FOR VISIT: Non-healing wounds of the right great toe and left lower leg. HISTORY OF PRESENT ILLNESS: Derrell Hoyt is a 53 year old male who presents to the [facility] for further evaluation and [...] times daily. Dx: DM 250.0 Insulin: No sulfamethoxazole-trimeth oprim (BACTRIM DS) 800-160 mg per tablet Take [...] Rubor of Dependency: Negative (Y) Positive (N) De Borgia-Weistein Examination: Leg/ankle Measurements Right Calf: 50.0 cm [...] Also, venous doppler study to evaluate for icu staff nurse incompetence. Follow-up is scheduled in 1 week, sooner with any concerns or worsening symptoms. - See patient instructions for further recommendations. - Pt education along with discharge instructions given to patient - Discussed Red Flag signs and when to go to ER. - Pt agreeable with plan and verbalize understanding. Rabia Poe, SOCIAL DIRECTOR.[facility] Charge Capture: [id number] Yasemin Inman, RN, RN 08/28/2018 8:35 AM Signed Nursing Note See provider note for wound description and measurements Dressing removed In the presence and direction of the provider wound care as written below: Pedal pulses doppled per provider: Consent captured per provider for debridement good until January 2019 for Latoya - States his problem started with a scratch to his LLE calf posterior . MHO DM , obesity,.HTN, H/O smoking but not current. BiLE edema . Lives with a room mate, is in long-term. Thickened and scaling on BiLE 1. Right [...] Rx: Doxycycline and Bactrim Yasemin Inman RN Yasemin Inman RN, RN 08/28/2018 8:32 AM Signed WOUND [...] following changes to the Wound Center at [phone] or go to the Emergency Department:? Fever [...] Doxycycline and Bactrim Rabia Poe/veronika Lorenzo MA, FAHEEM 08/28/2018 8:50 AM Signed WOUND CENTER HYPERBARIC [...] positive [Z22.322] Order(s):PVR LEG [facility] [[id number]] Order #: [id number] FUTURE US VENOUS INCOMPETENCY [facility] [[id number]] Order #: [id number] FUTURE sulfamethoxazole-trimeth oprim (BACTRIM DS) 800-160 mg per tabletTake 1 [...] Daily - Drink a protein shake daily: Angelitogoldie gabriela Report any of the following changes to the Wound Center at [phone] or go to the Emergency Department:? Fever [...] your legs Rx: Doxycycline and Bactrim Rabia Peo/veronika Visit Notes: >> Yasemin (Rn) CHIRAG Inman FriAug 28, 2018 8:23 AM Status: Signed Nursing Note See provider note for wound description and measurements Dressing removed In the presence and direction of the provider wound care as written below: Pedal pulses doppled per provider: Consent captured per provider for debridement good until January 2019 for Latoya ___ States his problem started with a scratch to his LLE calf posterior . MHO DM , obesity,.HTN, H/O smoking but not current. BiLE edema . Lives with a room mate, is in long-term. Thickened and scaling on BiLE 1. Right [...] and Bactrim Yasemin Inman RN >> Barbara Lorenzo MA FriAug 28, 2018 8:48 AM Status: Signed [...] to ANY of questions 5-9, consult the [facility] Prescriptions ordered this encounter Disp Refills Start End SULFAMETHOXAZOLE 800 MG-TRIMETHOPRIM* 28 t* 0 08/28/2018 Route: ORAL Sig: Take 1 tablet by mouth twice daily. Encounter Status:Closed by RABIA POE on 09/07/18 [facility] PROGRESSon 08-28-2018 Protein mass conc HNO ID: [id number] Author: Rabia Soto ([facility]) Consuelo Service: ? Author Type: Nurse Practitioner Type: Progress Notes Filed: 09/07/2018 4:56 AM Note Text: DATE VISIT: 08/28/2018 REASON FOR VISIT: Non-healing wounds of the right great toe and left lower leg. HISTORY OF PRESENT ILLNESS: Derrell Hoyt is a 53 year old male who presents to the [facility] for further evaluation and [...] times daily. Dx: DM 250.0 Insulin: No sulfamethoxazole-trimeth oprim (BACTRIM DS) 800-160 mg per tablet Take [...] Rubor of Dependency: Negative (Y) Positive (N) De Borgia-Weistein Examination: Leg/ankle Measurements Right Calf: 50.0 cm [...] Also, venous doppler study to evaluate for icu staff nurse incompetence. Follow-up is scheduled in 1 week, sooner with any concerns or worsening symptoms. - See patient instructions for further recommendations. - Pt education along with discharge instructions given to patient - Discussed Red Flag signs and when to go to ER. - Pt agreeable with plan and verbalize understanding. Rabia Poe APRN.AGRICULTURAL SALES REPRESENTATIVE Charge Capture: [id number] [facility] 08-21-2018 [facility] Office Visit (PLWDMR ) -------- DERRELL HOYT ([id number]) 1965 M Date Time Provider Department 08/21/18 8:30 AM RABIA POE, (AGRICULTURAL SALES REPRESENTATIVE) PLWDMR During your visit today, we recorded the following information about you: Temperature Pulse Respiration Blood pressure 98.1 degrees 97/minute 18/minute 195/95 Rabia Poe APRN.[facility] 10/03/2018 2:53 PM Addendum DATE OF CONSULTATION: 08/21/2018 REQUESTING PHYSICIAN: Francheska Wagner CNP CONSULTING PROVIDER: Rabia Poe APRN.[facility] REASON FOR CONSULTATION: Non-healing wounds of the right great toe and left lower leg. HISTORY OF PRESENT ILLNESS: Derrell Hoty is a 53 year old male who presents to the [facility] for further evaluation and [...] times daily. Dx: DM 250.0 Insulin: No sulfamethoxazole-trimeth oprim (BACTRIM DS) 800-160 mg per tablet Take [...] Rubor of Dependency: Negative (Y) Positive (N) De Borgia-Weistein Examination: Comments: Edema Right Calf: 56.5 had [...] Healing Rate/#Weeks: Initial assessment Wound Bed (Pre-debridement): [place] Wound Bed (Post-debridement): N/A Undermining: No Tunneling: [...] Discussed with patient need for following a sales process manager for foot care due to his diabetes, [...] Also, venous doppler study to evaluate for icu staff nurse incompetence. Follow-up is scheduled in 1 week, sooner with any concerns or worsening symptoms. - See patient instructions for further recommendations. - Pt education along with discharge instructions given to patient - Discussed Red Flag signs and when to go to ER. - Pt agreeable with plan and verbalize understanding. Rabia Poe APRN.AGRICULTURAL SALES REPRESENTATIVE Charge Capture: [id number] Marivel Benton, RN, RN 08/21/2018 9:47 AM [...] debridement good until January 2019 for Latoya - States his problem started with a scratch to his LLE calf posterior . MHO DM , obesity,.HTN, H/O smoking but not current. BiLE edema . Lives with a room mate, is in long-term. Thickened and scaling on BiLE 1. Right [...] given and shoe given for BiLE DARELL WRAP/SurePress/Tubi-as400 programmer : Foot is warm and pink before and [...] Discussed with patient need for following a sales process manager for foot care due to his diabetes, [...] care doctor for your high blood pressure. Marviel Benton RN Marivel Benton, RN, RN 08/21/2018 9:34 AM [...] gauze 7. Change your dressing daily DARELL WRAP/SurePress/Tubi-as400 programmer : Foot is warm and pink before and [...] Drink a protein shake daily : Premier shake Report any of the following changes to the Wound Center at [phone] or go to the Emergency Department:? Fever [...] Rabia Poe/ monika Referring Provider: FRANCHESKA WAGNER ([facility]) [[id number]] Allergies As of Date: 08/21/2018 (No Known [...] gauze 7. Change your dressing daily DARELL WRAP/SurePress/Tubi-as400 programmer : Foot is warm and pink before and [...] following changes to the Wound Center at [phone] or go to the Emergency Department:? Fever [...] about your high blood pressure. Rabia Poe/ [facility] Visit Notes: >> Marivel (Rn) CHIRAG Benton [...] debridement good until January 2019 for Latoya ___ States his problem started with a scratch to his LLE calf posterior . MHO DM , obesity,.HTN, H/O smoking but not current. BiLE edema . Lives with a room mate, is in long-term. Thickened and scaling on BiLE 1. Right [...] given and shoe given for BiLE DARELL WRAP/SurePress/Tubi-as400 programmer : Foot is warm and pink before and [...] Discussed with patient need for following a sales process manager for foot care due to his diabetes, [...] Encounter Status:Closed by RABIA POE on 08/31/18 [facility] PROGRESSon 08-21-2018 Protein mass conc HNO ID: [id number] Author: Rabia Poe Service: ? Author Type: Nurse Practitioner Type: Progress Notes Filed: 10/03/2018 2:53 PM Note Text: DATE OF CONSULTATION: 08/21/2018 REQUESTING PHYSICIAN: Francheska Wagner CNP CONSULTING PROVIDER: Rabia Poe APRN.CNP REASON FOR CONSULTATION: Non-healing wounds of the right great toe and left lower leg. HISTORY OF PRESENT ILLNESS: Derrell Hoyt is a 53 year old male who presents to the [facility] for further evaluation and [...] times daily. Dx: DM 250.0 Insulin: No sulfamethoxazole-trimeth oprim (BACTRIM DS) 800-160 mg per tablet Take [...] Rubor of Dependency: Negative (Y) Positive (N) De Borgia-Weistein Examination: Comments: Edema Right Calf: 56.5 had [...] Healing Rate/#Weeks: Initial assessment Wound Bed (Pre-debridement): [place] Wound Bed (Post-debridement): N/A Undermining: No Tunneling: [...] Discussed with patient need for following a sales process manager for foot care due to his diabetes, [...] Also, venous doppler study to evaluate for icu staff nurse incompetence. Follow-up is scheduled in 1 week, sooner with any concerns or worsening symptoms. - See patient instructions for further recommendations. - Pt education along with discharge instructions given to patient - Discussed Red Flag signs and when to go to ER. - Pt agreeable with plan and verbalize understanding. Rabia Poe APRN.[facility] Charge Capture: [id number] Normal [facility] Anaerobe Cultureon 9 Anaerobe Culture Sp. Request/Comment: - Eswab Culture Result - Moderate Mixed anaerobic danielle --> ABNORMAL ALERT No Clostridium perfringens isolated No Bacteroides fragilis group isolated. Critically abnormal [facility] Comment on above: Performed By: #### A NACUL #### [facility] [address] [id number] CNOVon 08-20-2018 CNOV Office Visit (PLWDMR ) -------- DERRELL HOYT ([id number]) 1965 M Date Time Provider Department 08/20/18 1:00 PM RABIA POE, (AGRICULTURAL SALES REPRESENTATIVE) PLWDMR During your visit today, we recorded [...] year old male who presents to the [facility] for further evaluation and [...] times daily. Dx: DM 250.0 Insulin: No sulfamethoxazole-trimeth oprim (BACTRIM DS) 800-160 mg per tablet Take [...] Rubor of Dependency: Negative (Y) Positive (N) De Borgia-Weistein Examination: Comments: Edema Measurements: Right Calf: 56.5 [...] current and future wound care. Rabia Poe APRN.[facility] Charge Capture: [id number], [id number] Marivel Benton, RN, RN 08/20/2018 2:40 PM Addendum [...] debridement good until January 2019 for Latoya - States his problem started with a scratch to his LLE calf posterior . MHO DM , obesity,.HTN, H/O smoking but not current. BiLE edema . Lives with a room mate, is in long-term. Thickened and scaling on BiLE BiLE toes: [...] Discussed with patient need for following a sales process manager for foot care due to his diabetes, [...] following changes to the Wound Center at [phone] or go to the Emergency Department:? Fever [...] Rabia Poe/ monika Referring Provider: FRANCHESKA WAGNER ([facility]) [[id number]] Allergies As of Date: 08/20/2018 (No Known Allergies) Date Reviewed: 08/20/2018 Reviewed by: Barbara Ramsey) FAHEEM Lorenzo - Fully Assessed Reason for Visit: Wound Evaluation [1021] Cmt: left lower leg Primary Visit Diagnosis:Diabetic ulcer of toe of right foot associated with type 2 diabetes mellitus, with necrosis of muscle (HCC) [E11.621, L97.513] Order(s):WOUND CULTURE AND GRAM STAIN [SQWCUL] Order #: [id number]. #:[id number] ANAEROBE CULTURE [SQANACUL] Order #: [id number]. #:[id number] FUNGAL CULTURE [SQFCUL] Order #: [id number]. #:[id number] CBC + DIFF [SQCBCDIF] Order #: [id number] FUTURE COMP METABOLIC PANEL [SQCMP] Order #: [id number] FUTURE SED RATE WESTERGREN [SQWSR] Order #: [id number] FUTURE C-REACTIVE PROTEIN (CRP) [SQCRP] Order #: [id number] FUTURE HGB A1C [XMDER4K] Order #: [id number] FUTURE PREALBUMIN BLD [SQPREALB] Order #: [id number] FUTURE ZINC BLD [SQZINC] Order #: [id number] FUTURE XR FOOT GENERAL 3V AP/LAT/OBL RT [3887511] Order #: [id number] FUTURE WOUND CULTURE AND GRAM STAIN [SQWCUL] Order #: [id number]. #:[id number] silver sulfADIAZINE (SILVADENE) 1 % creamApply to [...] following changes to the Wound Center at [phone] or go to the Emergency Department:? Fever [...] Rx Silvadene oint Rx Clobetasol Rabia Poe/ [facility] Visit Notes: >> Marivel (Rn) CHIRAG Benton [facility] Aug 20, 2018 1:19 PM Status: Addendum [...] debridement good until January 2019 for Latoya ___ States his problem started with a scratch to his LLE calf posterior . MHO DM , obesity,.HTN, H/O smoking but not current. BiLE edema . Lives with a room mate, is in long-term. Thickened and scaling on BiLE BiLE toes: [...] Discussed with patient need for following a sales process manager for foot care due to his diabetes, [...] Encounter Status:Closed by RABIA POE on 09/03/18 [facility] Fungal Cultureon 08-20-2018 Fungal Culture Sp. Request/Comment: - Eswab Culture Result - No Fungus isolated after 32 days [facility] Comment on above: Performed By: #### W CUL #### [facility] [email or web address] [address] [place] [address] HISTORY PHYSICALon 9 HISTORY PHYSICAL HNO ID: [id number] Author: Rabia Poe Service: ? Author Type: Nurse Practitioner Type: HANDP Filed: 09/03/2018 6:14 AM Note Text: DATE OF CONSULTATION: 08/20/2018 REQUESTING PHYSICIAN: Francheska Wagner CNP CONSULTING PROVIDER: Rabia Poe APRN.CNP REASON FOR CONSULTATION: Non-healing left calf stasis ulcer and right diabetic great toe ulcer. HISTORY OF PRESENT ILLNESS: Derrell Hoyt is a 53 year old male who presents to the [facility] for further evaluation and [...] times daily. Dx: DM 250.0 Insulin: No sulfamethoxazole-trimeth oprim (BACTRIM DS) 800-160 mg per tablet Take [...] Rubor of Dependency: Negative (Y) Positive (N) De Borgia-Weistein Examination: Comments: Edema Measurements: Right Calf: 56.5 [...] current and future wound care. Rabia Poe APRN.[facility] Charge Capture: [id number], [id number] [facility] PROCEDUREon 08-20-2018 Protein mass conc HNO ID: [id number] Author: Rabia Poe Service: ? Author Type: [...] sterile normal saline and dressings were applied. [facility] Wound Culture/Stainon 2018 Wound Culture/Stain Sp. Request/Comment: - Eswab Smear Result - Many Gram positive cocci in pairs --> ABNORMAL ALERT Few --> ABNORMAL ALERT Gram negative bacilli --> ABNORMAL ALERT Rare --> ABNORMAL ALERT Gram positive diphtheroid-like bacilli --> ABNORMAL ALERT Few Polymorphonuclear leukocytes Many Red Blood Cells Culture Result - Moderate Proteus mirabilis --> ABNORMAL ALERT Call the lab ([phone]) in 72 hours if susceptibility testing for [...] F Meropenem SUSCEPTIBLE <=0.25 F Critically abnormal [facility] Comment on above: Performed By: #### W CUL #### [facility] [email or web address] [address] [place], [place] [address] Wound Culture/Stain Sp. Request/Comment: - Eswab Smear [...] on --> ABNORMAL ALERT 2.28.19 AT 1430 ([id number]) --> ABNORMAL ALERT Rare --> ABNORMAL ALERT [...] F Doxycycline SUSCEPTIBLE 2 F Critically abnormal [facility] Comment on above: Performed By: #### W CUL #### [facility] [email or web address] [address] [place], [place] [address] XR FOOT 3V AP/LAT/OBL RTon 0 08-20-2018 [...] related to an underlying inflammatory arthropathy. 1. Coating Mixer: HARRIET Transcribe Date/Time: Aug 20 2018 3:38P Dictated by : TRUE ZAPIEN MD This examination was interpreted and the report reviewed and electronically signed by: TRUE ZAPIEN MD on Aug 20 2018 3:40PM EST [id number] Normal [facility] Vital Signs Date Time Vital Sign Value Performing Clinician Jefferson walker 11-30-2024 16:29-0400 Body temperature 97.8 [degF] Radha Barajas NP-C Work Phone: [facility] 11-30-2024 16:29-0400 Diastolic blood pressure 54 mm[Hg] Radha Barajas MARINE CHRONOMETER ASSEMBLER-C Work Phone: [facility] 11-30-2024 16:29-0400 Heart rate 73 /min Radha Barajas MARINE CHRONOMETER ASSEMBLER-C Work Phone: [facility] 11-30-2024 16:29-0400 Respiratory rate 17 /min Radha Barajas MARINE CHRONOMETER ASSEMBLER-C Work Phone: [facility] 11-30-2024 16:29-0400 SaO2% (BldA) [Mass fraction] 100 % Radha Barajas MARINE CHRONOMETER ASSEMBLER-C Work Phone: [facility] 11-30-2024 16:29-0400 Systolic blood pressure 113 mm[Hg] Radha Barajas MARINE CHRONOMETER ASSEMBLER-C Work Phone: [phone])[phone] [place] [address] 11-30-2024 14:48-0400 Inhaled oxygen flow rate 2 L/min Radha Barajas MARINE CHRONOMETER ASSEMBLER-C Work Phone: [facility] 11-30-2024 12:43-0400 Body height 182.88 cm Radha Barajas MARINE CHRONOMETER ASSEMBLER-C Work Phone: [facility] 11-30-2024 12:43-0400 Body mass index (BMI) [Ratio] 45.9 kg/m2 Radha Barajas MARINE CHRONOMETER ASSEMBLER-C Work Phone: [phone])033-288880 [place] [address] 11-30-2024 12:43-0400 Body weight 153.6 kg Radha Barajas MARINE CHRONOMETER ASSEMBLER-C Work Phone: 1(323)034-976580 [place] [address] 11-19-2024 06:15-0400 Body mass index (BMI) [Ratio] 45.3 kg/m2 Radha Barajas MARINE CHRONOMETER ASSEMBLER-C Work Phone: 3(335)835-109080 [place] [address] 11-19-2024 06:15-0400 Body weight 151.49 kg Radha Barajas MARINE CHRONOMETER ASSEMBLER-C Work Phone: [facility] 11-19-2024 06:15-0400 Diastolic blood pressure 69 mm[Hg] Radha Barajas MARINE CHRONOMETER ASSEMBLER-C Work Phone: 3(783)849-787480 [place] [address] 11-19-2024 06:15-0400 Heart rate 82 /min Radha Barajas MARINE CHRONOMETER ASSEMBLER-C Work Phone: [facility] 11-19-2024 06:15-0400 Respiratory rate 20 /min Radha Barajas MARINE CHRONOMETER ASSEMBLER-C Work Phone: [facility] 11-19-2024 06:15-0400 SaO2% (BldA) [Mass fraction] 92 % Radha Barajas MARINE CHRONOMETER ASSEMBLER-C Work Phone: [facility] 11-19-2024 06:15-0400 Systolic blood pressure 111 mm[Hg] Radha Barajas MARINE CHRONOMETER ASSEMBLER-C Work Phone: [facility] 11-11-2024 15:19-0400 Body height 182.88 cm Radha Barajas MARINE CHRONOMETER ASSEMBLER-C Work Phone: [facility] 11-11-2024 15:19-0400 Body mass index (BMI) [Ratio] 45.6 kg/m2 Radha Barajas MARINE CHRONOMETER ASSEMBLER-C Work Phone: [facility] 11-11-2024 15:19-0400 Body weight 152.4 kg Radha Barajas MARINE CHRONOMETER ASSEMBLER-C Work Phone: [facility] 11-11-2024 15:19-0400 Diastolic blood pressure 74 mm[Hg] Radha Barajas MARINE CHRONOMETER ASSEMBLER-C Work Phone: [facility] 11-11-2024 15:19-0400 Heart rate 78 /min Radha Barajas MARINE CHRONOMETER ASSEMBLER-C Work Phone: [facility] 11-11-2024 15:19-0400 Respiratory rate 18 /min Radha Barajas MARINE CHRONOMETER ASSEMBLER-C Work Phone: [facility] 11-11-2024 15:19-0400 SaO2% (BldA) [Mass fraction] 87 % Radha Barajas MARINE CHRONOMETER ASSEMBLER-C Work Phone: [facility] 11-11-2024 15:19-0400 Systolic blood pressure 115 mm[Hg] Radha Barajas MARINE CHRONOMETER ASSEMBLER-C Work Phone: [facility] 11-02-2024 08:38-0400 Body height 185.4 cm Ella Bernal PA-C Work Phone: [facility] 11-02-2024 08:38-0400 Body mass index (BMI) [Ratio] 42.75 kg/m2 Ella Bernal PA-C Work Phone: [facility] 11-02-2024 08:38-0400 Body temperature 97.7 [degF] Ella Bernal PA-C Work Phone: [facility] 11-02-2024 08:38-0400 Body weight 146.97 kg Ella Bernal PA-C Work Phone: [facility] 11-02-2024 08:38-0400 Diastolic blood pressure 62 mm[Hg] Ella Bernal PA-C Work Phone: [facility] 11-02-2024 08:38-0400 Heart rate 80 /min Ella Bernal PA-C Work Phone: [facility] 11-02-2024 08:38-0400 Respiratory rate 20 /min Ella Bernal PA-C Work Phone: [facility] 11-02-2024 08:38-0400 SaO2% (BldA) [Mass fraction] 90 % Ella Bernal PA-C Work Phone: [facility] 11-02-2024 08:38-0400 Systolic blood pressure 98 mm[Hg] Ella Bernal PA-C Work Phone: [facility] 10-20-2024 10:50-0400 Body temperature 97.7 [degF] Radha Barajas MARINE CHRONOMETER ASSEMBLER-C Work Phone: [facility] 10-20-2024 10:50-0400 Diastolic blood pressure 39 mm[Hg] Radha Barajas MARINE CHRONOMETER ASSEMBLER-C Work Phone: [facility] 10-20-2024 10:50-0400 Heart rate 79 /min Radha Barajas MARINE CHRONOMETER ASSEMBLER-C Work Phone: [facility] 10-20-2024 10:50-0400 Respiratory rate 16 /min Radha Barajas MARINE CHRONOMETER ASSEMBLER-C Work Phone: [facility] 10-20-2024 10:50-0400 SaO2% (BldA) [Mass fraction] 92 % Radha Barajas MARINE CHRONOMETER ASSEMBLER-C Work Phone: [facility] 10-20-2024 10:50-0400 Systolic blood pressure 100 mm[Hg] Radha Barajas MARINE CHRONOMETER ASSEMBLER-C Work Phone: [facility] 10-20-2024 10:45-0400 Inhaled oxygen flow rate 2 L/min Radha Barajas MARINE CHRONOMETER ASSEMBLER-C Work Phone: [facility] 10-20-2024 07:44-0400 Body height 182.88 cm Radha Barajas MARINE CHRONOMETER ASSEMBLER-C Work Phone: [facility] 10-20-2024 07:44-0400 Body mass index (BMI) [Ratio] 45.1 kg/m2 Radhamary Barajas MARINE CHRONOMETER ASSEMBLER-C Work Phone: [facility] 10-20-2024 07:44-0400 Body weight 150.9 kg Radha Barajas MARINE CHRONOMETER ASSEMBLER-C Work Phone: [facility] 07-13-2024 14:24-0500 Body mass index (BMI) [Ratio] 45.3 kg/m2 Radhamary Barajas MARINE CHRONOMETER ASSEMBLER-C Work Phone: [facility] 07-13-2024 14:24-0500 Body weight 151.49 kg Radhamary Barajas MARINE CHRONOMETER ASSEMBLER-C Work Phone: [facility] 07-13-2024 14:24-0500 Diastolic blood pressure 71 mm[Hg] Radha Barajas MARINE CHRONOMETER ASSEMBLER-C Work Phone: [facility] 07-13-2024 14:24-0500 Heart rate 80 /min Radhamary Barajas MARINE CHRONOMETER ASSEMBLER-C Work Phone: [facility] 07-13-2024 14:24-0500 Respiratory rate 16 /min Radhamary Barajas MARINE CHRONOMETER ASSEMBLER-C Work Phone: [facility] 07-13-2024 14:24-0500 SaO2% (BldA) [Mass fraction] 93 % Radha Barajas MARINE CHRONOMETER ASSEMBLER-C Work Phone: [facility] 07-13-2024 14:24-0500 Systolic blood pressure 114 mm[Hg] Radha Barajas MARINE CHRONOMETER ASSEMBLER-C Work Phone: [facility] 02-26-2022 13:43-0400 Body height 185.[address] Reinaldo Paez Work Phone: [facility] Work Phone: 02-26-2022 13:43-0400 Body weight 145.[address] Reinaldo Paez Work Phone: [facility] Work Phone: 02-26-2022 13:43-0400 Heart rate 88 /min Dr. Reinaldo Paez Work Phone: [facility] Work Phone: 02-26-2022 13:43-0400 SaO2% (BldA) [Mass fraction] 96 % Dr. Reinaldo Paez Work Phone: [facility] Work Phone: 02-04-2022 10:43-0400 Body mass index (BMI) [Ratio] 42.5 kg/m2 Dr. Reinaldo Paez Work Phone: [facility] Work Phone: 02-04-2022 10:43-0400 Body weight 146.[address] Reinaldo Paez Work Phone: [facility] Work Phone: 02-04-2022 10:43-0400 Diastolic blood pressure 60 mm[Hg] Dr. Reinaldo Paez Work Phone: [facility] Work Phone: 02-04-2022 10:43-0400 Heart rate 84 /min Dr. Reinaldo Paez Work Phone: [facility] Work Phone: 02-04-2022 10:43-0400 Respiratory rate 16 /min Dr. Reinaldo Paez Work Phone: [facility] Work Phone: 02-04-2022 10:43-0400 Systolic blood pressure 102 mm[Hg] Dr. Reinaldo Paez Work Phone: [facility] Work Phone: 01-24-2022 15:58-0400 Body height 185.[address] Reinaldo Paez Work Phone: [facility] Work Phone: 01-24-2022 15:58-0400 Body mass index (BMI) [Ratio] 41.5 kg/m2 Dr. Reinaldo Paez Work Phone: [facility] Work Phone: 01-24-2022 15:58-0400 Body weight 142.[address] Reinaldo Paez Work Phone: [facility] Work Phone: 01-10-2022 10:08-0400 Body mass index (BMI) [Ratio] 42.3 kg/m2 Dr. Reinaldo Paez Work Phone: [facility] Work Phone: 01-10-2022 10:08-0400 Body temperature 94.9 [degF] Dr. Reinaldo Paez Work Phone: [facility] Work Phone: 01-10-2022 10:08-0400 Body weight 145.[address] Reinaldo Paez Work Phone: [facility] Work Phone: 01-10-2022 10:08-0400 Diastolic blood pressure 77 mm[Hg] Dr. Reinaldo Paez Work Phone: [facility] Work Phone: 01-10-2022 10:08-0400 Heart rate 86 /min Dr. Reinaldo Paez Work Phone: [facility] Work Phone: 01-10-2022 10:08-0400 Respiratory rate 16 /min Dr. Reinaldo Paez Work Phone: [facility] Work Phone: 01-10-2022 10:08-0400 SaO2% (BldA) [Mass fraction] 95 % Dr. Reinaldo Paez Work Phone: [facility] Work Phone: 01-10-2022 10:08-0400 Systolic blood pressure 118 mm[Hg] Dr. Reinaldo aPez Work Phone: [facility] Work Phone: 10-02-2021 08:32-0400 Body mass index (BMI) [Ratio] 42.6 kg/m2 Dr. Reinaldo Paez Work Phone: [facility] Work Phone: 10-02-2021 08:32-0400 Body weight 146.[address] Reinaldo Paez Work Phone: [facility] Work Phone: 10-02-2021 08:32-0400 Diastolic blood pressure 71 mm[Hg] Dr. Reinaldo Paez Work Phone: [facility] Work Phone: 10-02-2021 08:32-0400 Heart rate 94 /min Dr. Reinaldo Paez Work Phone: [facility] Work Phone: 10-02-2021 08:32-0400 Respiratory rate 20 /min Dr. Reinaldo Paez Work Phone: [facility] Work Phone: 10-02-2021 08:32-0400 SaO2% (BldA) [Mass fraction] 9 % Dr. Reinaldo Paez Work Phone: [facility] Work Phone: 10-02-2021 08:32-0400 Systolic blood pressure 105 mm[Hg] Dr. Reinaldo Paez Work Phone: [facility] Work Phone: 10-02-2021 08:32-0400 Body height 185.[address] Reinaldo Paez Work Phone: [facility] Work Phone: 10-02-2021 08:32-0400 Body mass index (BMI) [Ratio] 42.6 kg/m2 Dr. Reinaldo Paez Work Phone: [facility] Work Phone: 10-02-2021 08:32-0400 Body weight 146.[address] Reinaldo Paez Work Phone: [facility] Work Phone: 10-02-2021 08:32-0400 Diastolic blood pressure 71 mm[Hg] Dr. Reinaldo Paez Work Phone: [facility] Work Phone: 10-02-2021 08:32-0400 Heart rate 94 /min Dr. Reinaldo Paez Work Phone: [facility] Work Phone: 10-02-2021 08:32-0400 Respiratory rate 20 /min Dr. Reinaldo Paez Work Phone: [facility] Work Phone: 10-02-2021 08:32-0400 SaO2% (BldA) [Mass fraction] 9 % Dr. Reinaldo Paez Work Phone: [facility] Work Phone: 10-02-2021 08:32-0400 Systolic blood pressure 105 mm[Hg] Dr. Reinaldo Paez Work Phone: [facility] Work Phone: 09-15-2021 09:00-0400 Body temperature 97.1 [degF] Dr. Reinaldo Paez Work Phone: [facility] Work Phone: 09-15-2021 09:00-0400 Diastolic blood pressure 77 mm[Hg] Dr. Reinaldo Paez Work Phone: [facility] Work Phone: 09-15-2021 09:00-0400 Heart rate 80 /min Dr. Reinaldo Paez Work Phone: [facility] Work Phone: 09-15-2021 09:00-0400 Respiratory rate 18 /min Dr. Reinaldo Paez Work Phone: [facility] Work Phone: 09-15-2021 09:00-0400 SaO2% (BldA) [Mass fraction] 100 % Dr. Reinaldo Paez Work Phone: [facility] Work Phone: 09-15-2021 09:00-0400 Systolic blood pressure 124 mm[Hg] Dr. Reinaldo Paez Work Phone: [facility] Work Phone: 09-13-2021 17:00-0400 Body mass index (BMI) [Ratio] 41 kg/m2 Dr. Reinaldo Paez Work Phone: [facility] Work Phone: 09-13-2021 17:00-0400 Body weight [address] Reinaldo Paez Work Phone: [facility] Work Phone: 09-13-2021 16:59-0400 Body temperature 97 [degF] Dr. Reinaldo Paez Work Phone: [facility] Work Phone: 09-13-2021 16:59-0400 Diastolic blood pressure 86 mm[Hg] Dr. Reinaldo Paez Work Phone: [facility] Work Phone: 09-13-2021 16:59-0400 Heart rate 88 /min Dr. Reinaldo Paez Work Phone: [facility] Work Phone: 09-13-2021 16:59-0400 Respiratory rate 18 /min Dr. Reinaldo Paez Work Phone: [facility] Work Phone: 09-13-2021 16:59-0400 SaO2% (BldA) [Mass fraction] 98 % Dr. Reinaldo Paez Work Phone: [facility] Work Phone: 09-13-2021 16:59-0400 Systolic blood pressure 126 mm[Hg] Dr. Reinaldo Paez Work Phone: [facility] Work Phone: 09-13-2021 11:29-0400 Body height 185.[address] Reinaldo Paez Work Phone: [facility] Work Phone: 09-13-2021 11:29-0400 Body mass index (BMI) [Ratio] 43.8 kg/m2 Dr. Reinaldo Paez Work Phone: [facility] Work Phone: 09-13-2021 11:29-0400 Body weight 150.[address] Reinaldo Paez Work Phone: [facility] Work Phone: 05-22-2021 09:23-0500 Body weight 155.[address] Reinaldo Paez Work Phone: [facility] Work Phone: 05-22-2021 09:23-0500 Diastolic blood pressure 62 mm[Hg] Dr. Reinaldo Paez Work Phone: [facility] Work Phone: 05-22-2021 09:23-0500 Heart rate 76 /min Dr. Reinaldo Paez Work Phone: [facility] Work Phone: 05-22-2021 09:23-0500 Respiratory rate 18 /min Dr. Reinaldo Paez Work Phone: [facility] Work Phone: 05-22-2021 09:23-0500 Systolic blood pressure 104 mm[Hg] Dr. Reinaldo Paez Work Phone: [facility] Work Phone: 02-05-2021 10:33-0400 Body mass index (BMI) [Ratio] 50.4 kg/m2 Dr. Reinaldo Paez Work Phone: [facility] Work Phone: Encounters Encounter Date Encounter Type Care Provider Facility Start: 12-21-2024 ambulatory Radha Barajas MARINE CHRONOMETER ASSEMBLER [place] [place]: 11-30-2024 End: 11-30-2024 Emergency department patient visit Radha Barajas MARINE CHRONOMETER ASSEMBLER-C Work Phone: -Emergency Department Work Phone: Start: 11-19-2024 End: 11-19-2024 Patient encounter procedure Brissa Hawkins MARINE CHRONOMETER ASSEMBLER-C -[facility] Work Phone: Start: 11-19-2024 End: 11-19-2024 ambulatory Radha Barajas MARINE CHRONOMETER ASSEMBLER-C Work Phone: [facility] Work Phone: Start: 11-11-2024 End: 11-11-2024 Patient encounter procedure Karen Webber MARINE CHRONOMETER ASSEMBLER-C -[facility] Work Phone: Start: 11-11-2024 End: 11-11-2024 ambulatory Radha Barajas MARINE CHRONOMETER ASSEMBLER Facility:[facility] Start: 11-02-2024 End: 11-02-2024 Patient encounter procedure Ella Bernal PA-C Work Phone: Urology Comment on above: Increased frequency of urination (Primary Dx); Screening for genitourinary condition; Dysuria Start: 11-02-2024 End: 11-02-2024 ambulatory ELLA BERNAL Facility:[facility] Start: 10-20-2024 End: 11-03-2024 Telephone encounter Ella Bernal PA-C Work Phone: Urology Comment on above: Appointment Start: 10-20-2024 ambulatory Radha Barajas NP [place] [place] Start: 10-20-2024 Non-patient / Non-visit Mata Raphael nd DO -[facility] Start: 10-20-2024 End: 10-20-2024 Admission to same day surgery center Mata Pastor DO -Endoscopy Work Phone: Start: 10-20-2024 End: 10-20-2024 ambulatory Radha Barajas MARINE CHRONOMETER ASSEMBLER-C Work Phone: [facility] Work Phone: Start: 09-22-2024 End: 09-22-2024 Discharged Recurring Radha Barajas MARINE CHRONOMETER ASSEMBLER-C -Physical Therapy Work Phone: Start: 09-22-2024 Registered Recurring Radha Barajas MARINE CHRONOMETER ASSEMBLER-C -Physical Therapy Work Phone: Start: 09-22-2024 End: 09-22-2024 ambulatory Radha Barajas MARINE CHRONOMETER ASSEMBLER-C Work Phone: [facility] Work Phone: Start: 09-14-2024 ambulatory Radha Barajas MARINE CHRONOMETER ASSEMBLER Facility:[facility] Start: 08-13-2024 ambulatory Radha Barajas MARINE CHRONOMETER ASSEMBLER Facility:[facility] Start: 07-13-2024 End: 07-13-2024 Patient encounter procedure Karen Webber MARINE CHRONOMETER ASSEMBLER-C -[facility] Work Phone: Start: 07-13-2024 End: 07-13-2024 ambulatory Radha Barajas MARINE CHRONOMETER ASSEMBLER Facility:[facility] Start: 06-15-2024 ambulatory Radha Barajas MARINE CHRONOMETER ASSEMBLER Facility:[facility] Start: 06-10-2024 ambulatory Radha Barajas MARINE CHRONOMETER ASSEMBLER [facility] Start: 05-10-2024 End: 05-10-2024 ambulatory Radha Barajas MARINE CHRONOMETER ASSEMBLER [facility] Start: 03-30-2024 End: 03-30-2024 ambulatory Jeff Corinna [facility] Start: 03-29-2024 ambulatory [place] Corinna [facility] Start: 03-29-2024 End: 03-31-2024 Evaluation and management of inpatient [place] Corinna Facility:[facility] Start: 03-22-2024 ambulatory Radha Barajas MARINE CHRONOMETER ASSEMBLER Facility:[facility] Start: 03-10-2024 End: 03-10-2024 ambulatory Radha Barajas MARINE CHRONOMETER ASSEMBLER Facility:[facility] Start: 02-11-2024 End: 02-11-2024 ambulatory Radha Barajas MARINE CHRONOMETER ASSEMBLER [facility] Start: 01-13-2024 ambulatory Reinaldo Paez Facility: [facility] Start: 12-30-2023 ambulatory Radha Barajas MARINE CHRONOMETER ASSEMBLER [facility] Start: 12-30-2023 End: 01-01-2024 Evaluation and management of inpatient Radha Barajas MARINE CHRONOMETER ASSEMBLER Facility:[facility] Start: 12-30-2023 ambulatory Alex Hart Facility:[facility] Start: 11-26-2023 Telephone encounter Bob renee SOCIAL DIRECTOR.AGRICULTURAL SALES REPRESENTATIVE Work Phone: [facility] Cardiology Comment on above: Results; Patient Upd ate Start: 11-20-2023 ambulatory Enedina eckert RT(R) Nuclear Medicine Comment on above: Radiology [place] Start: 11-20-2023 Patient encounter procedure Enedina Beckman RT(R) Nuclear Medicine Start: 11-19-2023 End: 11-19-2023 Evaluation and management of inpatient EDY BHATIA Facility:[id number] Start: 11-18-2023 End: 11-22-2023 Evaluation and management of inpatient HONORIO OVALLE Facility:[id number] Start: 02-27-2022 Non-patient / Non-visit Dr. Bette Paez Work Phone: [facility] Start: 02-26-2022 End: 02-26-[address] Reinal[facility] Start: 02-26-2022 End: 02-26-[address] Reinaldo Paez Work Phone: [facility] Work Phone: Start: 02-26-2022 End: 02-26-[address] Reinal[facility]ae[facility] Start: 02-21-[address] Reinaldo Pae[facility] Start: 02-18-2022 Non-patient / Non-visit Dr. Bette Paez Work Phone: [facility] Start: 02-18-2022 End: 02-18-[address] Reinaldo Paez Work Phone: [facility] Work Phone: Start: 02-18-2022 End: 02-18-[address] Reinaldo Pae[facility] Start: 02-04-2022 End: 02-04-[address] Reinaldo Paez Work Phone: [facility] Start: 01-28-[address] Reinaldo Paez [facility] Start: 01-24-2022 Non-patient / Non-visit Dr. Bette Paez Work Phone: [facility] Start: 01-23-2022 End: 01-23-[address] Reinaldo Paez Work Phone: [facility] Start: 01-10-2022 End: 01-10-[address] Reinaldo Paez Work Phone: [facility] Start: 10-02-2021 End: 10-02-[address] Reinaldo Paez Work Phone: [facility] Start: 09-15-2021 End: 09-15-[address] Reinaldo Paez Work Phone: [facility]Cardi[facility] Start: 09-15-2021 Non-patient / Non-visit Dr. Bette Paez Work Phone: [facility] Start: 09-14-2021 End: 09-15-2021 Evaluation and management of inpatient Dr. Reinaldo Paez [facility] Phone[facility] Start: 09-14-2021 Non-patient / Non-visit Dr. Bette Peaz Work Phone: [facility] Start: 09-14-2021 Non-patient / Non-visit Dr. Bette Paez Work Phone: [facility] Start: 09-13-2021 Non-patient / Non-visit Dr. Bette Paez Work Phone: [facility] Start: 09-13-2021 Evaluation and management of inpatient Dr. Reinaldo Paez [facility] Phone[facility] Start: 09-13-2021 Non-patient / Non-visit Dr. Bette Paez Work Phone: [facility] Start: 08-23-2021 End: 10-26-[address] Reinaldo Paez Work Phone: [facility] Start: 08-23-[address] Reinaldo Paez Work Phone: [facility] Start: 07-16-2021 End: 07-16-[address] Reinaldo Paez Work Phone: [facility] Start: 07-16-[address] Reinaldo krishnamurthy Work Phone: [facility] Start: 05-22-2021 End: 05-22-[address] Reinaldo Paez Work Phone: [facility] Start: 09-11-2018 End: 09-11-2018 Patient encounter procedure RABIA J, ([facility]) [facility] Start: 09-04-2018 End: 09-04-2018 Patient encounter procedure RABIA J, ([facility] Start: 08-28-2018 End: 08-28-2018 Patient encounter procedure RABIA J, ([facility]) [facility] Start: 08-21-2018 End: 08-21-2018 Patient encounter procedure RABIA J, ([facility] Start: 08-20-2018 Patient encounter procedure RABIA J, ([facility] Start: 08-20-2018 End: 08-20-2018 Patient encounter procedure RABIA J, ([facility]) [facility] Procedures Date Procedure Procedure Detail Performing Clinician Start: 11-30-2024 Plain chest X-ray Michelle TOLLIVER Work Phone: Start: 11-30-2024 D-dimer assay, quantitative Radha TOLLIVER Work Phone: Comment on above: NORMAL D-Dimer level (<0.50) indicates no DVT or PE. Start: 11-30-2024 Estimated creatinine clearance Radha TOLLIVER Work Phone: Start: 10-20-2024 Colonoscopy Radha Mike zach MARINE CHRONOMETER ASSEMBLER-C Work Phone: Start: 01-16-2024 History of placement of stent for coronary artery disease H/O heart artery stent Ella Bernal PA-C Work Phone: Start: 11-20-2023 Lipid 1996 panel - S rosalio or Plasma Ella Bernal PA-C Work Phone: Start: 09-13-2021 Plain chest X-ray Dr. Daniel Paez Work Phone: Start: 01-18-2021 History of placement of stent for coronary artery disease History of coronary artery stent placement Dr. Reinaldo Paez Work Phone: Plan of Treatment Date Care Activity Detail Author Start: 11-19-2028 Lipid panel Lipid Screening [facility] Start: 11-21-2026 Diabetes Screening Diabetes Screening [facility] Start: 11-02-2025 BP Controlled (<130/80) BP Controlled (<130/80) [facility] Start: 02-21-2025 Influenza vaccination Influenza Vaccine (Season Ended) [facility] Start: 11-30-2024 [facility] Start: 11-30-2024 [facility] Start: 11-19-2024 Hepatitis B surface antibody level LDL Cholesterol [facility] Start: 11-19-2024 Evaluation of diagnostic study results [facility] Start: 10-20-2024 Colonoscopy w/biopsy single/multiple COLONOSCOPY AND BIOPSY [facility] Start: 10-20-2024 Colsc flx w/rmvl of tumor polyp lesion snare tq COLONOSCOPY W/LESION REMOVAL [facility] Start: 10-20-2024 Egd transoral biopsy single/multiple EGD BIOPSY SINGLE/MULTIPLE [facility] Start: 10-20-2024 Patient discharge [facility] Start: 02-22-2024 Covid-19 Vaccine ( season) Covid-19 Vaccine ( season) [facility] Start: 02-22-2024 Influenza vaccination Influenza Vaccine (Season Ended) [facility] Start: 02-20-2024 Hemoglobin A1c measurement HbA1C [facility] Start: 01-21-2024 End: 01-21-2024 Patient encounter procedure 01/21/2024 2:20 PM EDT Office Visit [facility] [address] [place] [address] Bob Du, KELIN.AGRICULTURAL SALES REPRESENTATIVE [address] [facility] [address] [place] [address] 8 week follow up after [facility] d/c for RVOT [place] [facility] Comment on above: 8 week follow up after [facility] d/c for RVOT [place] Start: 11-21-2023 End: 11-21-2023 Evaluation and management of inpatient 11/21/2023 10:00 AM EDT - 11/21/2023 11:00 AM EDT Surgery MR CARDIAC OIL EXPELLER OPERATOR [address] [place] [address] Chidi Boyer MD [address] [place] [address] LEFT HEART CATH INTRAPROCEDURAL INJECT W/ LEFT VENTRICULOGRAPHY IMAGE SUPERVISION/INTERPRETATIO N MR CARDIAC OIL EXPELLER OPERATOR Comment on above: LEFT HEART CATH INTRAPROCEDURAL INJECT W / LEFT VENTRICULOGRAPHY IMAGE SUPERVISION/INTERPRETATION Start: 11-21-2023 End: 11-21-2023 L hrt cath w/njx l ventriculography img s&i LEFT HEART CATH INTRAPROCEDURAL INJECT W/ LEFT VENTRICULOGRAPHY IMAGE SUPERVISION/INTERPRETATIO N Abnormal stress test 11/21/2023 10:00 AM EDT MR OIL EXPELLER OPERATOR Start: 06-23-2023 Behavioral Health Screening Behavioral Health Screening [facility] Start: 02-21-2023 Covid-19 Vaccine () Covid-19 Vaccine () [facility] Start: 10-16-2022 Urine microalbumin profile DTaP,Tdap,Td Vaccine (2 - Td or Tdap) [facility] Start: 04-22-2021 Hemoglobin A1c measurement HbA1C [facility] Start: 09-11-2020 Prostate specific antigen measurement Prostate Cancer Screening Discussion [facility] Start: 04-12-2020 Annual PCP Team Chronic Disease Visit Annual PCP Team Chronic Disease Visit [facility] Start: 04-12-2020 Pneumococcal vaccination Pneumococcal Vaccine (2 of 2 - PCV) [facility] Start: 04-12-2020 Pneumococcal Vaccine: 50+ (2 of 2 - PCV) Pneumococcal Vaccine: 50+ (2 of 2 - PCV) [facility] Start: 07-02-2019 Hepatitis B screening Urine Albumin:Creatinine Ratio [facility] Start: 10-06-2016 Glaucoma screening Dilated Retinal Exam [facility] Start: 06-13-2016 Diabetic foot examination Diabetic Foot Exam [facility] Start: 2015 Shingrix Vaccine (1 of 2) Shingrix Vaccine (1 of 2) [facility] Start: 2010 Screening for malignant neoplasm of colon [facility] Start: 1984 Hepatitis B Vaccine (1 of 3 - 19+ 3-dose series) Hepatitis B Vaccine (1 of 3 - 19+ 3-dose series) [facility] Start: 1983 Annual PCP Team Chronic Disease Visit Annual PCP Team Chronic Disease Visit [facility] Start: 1983 Anxiety Screening Anxiety Screening [facility] Start: 1983 BP Controlled (<130/80) BP Controlled (<130/80) [facility] Start: 1983 Hepatitis C screening Hepatitis C Screening [facility] Start: 1983 HIV screening HIV Screening [facility] CBC W Auto Different ial panel - Blood [facility] CBC W Auto Different ial panel - Blood [facility] Comprehensive metabo lic 2000 panel - Serum or Plasma [facility] CT Abdomen [facility] Exercise tolerance test [facility] Work Phone: Gamma glutamyl transferase measurement [facility] Hepatic function panel [facility] Measurement of respiratory function [facility] Work Phone: Patient Education [facility] Work Phone: Patient referral [facility] Work Phone: POST VOID RESIDUAL POST VOID RES IDUAL Procedures Routine Screening for genitourinary condition Increased frequency of urination Dysuria Ordered: 11/02/2024 [facility] Work Phone: Comment on above: Ordered: 11/02/2024 Troponin T.cardiac [Mass/volume] in Serum or Plasma by High sensitivity method [facility] Immunizations Immunization Date Immunization Notes Care Provider Fa cility 04-13-[address] Reinaldo Paez Work Phone: [facility] 04-13-2019 influenza, seasonal, injectable, preservative free Enedina McFeely RT(R) [facility] 04-13-2019 influenza virus vacc ine, unspecified formulation Enedina McFeely RT(R) [facility] 04-12-2019 influenza, injectabl e, quadrivalent, contains preservative Enedina McFeely RT(R) [facility] 04-12-2019 pneumococcal polysaccharide vaccine, 23 valent Enedina McFeely RT(R) [facility] 04-14-2017 influenza, injectabl e, quadrivalent, contains preservative Enedina McFeely RT(R) [facility] 10-16-2012 tetanus toxoid, redu susan diphtheria toxoid, and acellular pertussis vaccine, adsorbed Enedina McFeely RT(R) [facility] Payers Date Payer Category Payer Medicare (Managed Care) MARLEY FLETCHER [id number] 2024 Private Health Insurance [id number] 2023 Medicare [id number] 2023 Self-pay [id number] 2023 [facility] [id number] 2022 Medicaid [id number] 2022 Medicare [id number] 2022 Medicaid [id number] Medicaid [id number] Medicare [id number] Unknown [id number] Unknown SELF PAY INSURANCE [id number] Unknown [id number] 2.16.840.1.473577.3.579.2. 462 Unknown [id number] 2.16.840.1.988078.3.579.2. 462 Unknown [id number] 2.16.840.1.519696.3.579.2. 462 Unknown [id number] 2.16.840.1.103679.3.579.2. 462 Unknown [id number] 2.16.840.1.128574.3.579.2. 462 Unknown [id number] 2.16.840.1.562201.3.579.2. 462 Unknown [id number] 2.16.840.1.142413.3.579.2. 462 Unknown [id number] 2.16.840.1.711326.3.579.2. 462 Unknown [id number] 2.16.840.1.063284.3.579.2. 462 Unknown [id number] 2.16.840.1.644382.3.579.2. 462 Unknown [id number] 2.16.840.1.318733.3.579.2. 462 Unknown [id number] 2.16.840.1.027029.3.579.2. 462 Unknown [id number] 2.16.840.1.321314.3.579.2. 462 Unknown [id number] 2.16.840.1.958335.3.579.2. 462 Unknown [id number] 2.16.840.1.173535.3.579.2. 462 Unknown [id number] 2.16.840.1.829501.3.579.2. 462 Unknown [id number] 2.16.840.1.691664.3.579.2. 462 Unknown [id number] 2.16.840.1.511313.3.579.2. 462 Unknown [id number] 2.16.840.1.086860.3.579.2. 462 Unknown [id number] 2.16.840.1.161085.3.579.2. 462 Unknown [id number] 2.16.840.1.878340.3.579.2. 462 Unknown [id number] 2.16.840.1.573247.3.579.2. 462 Unknown [id number] 2.16.840.1.188875.3.579.2. 462 Unknown [id number] 2.16.840.1.039077.3.579.2. 462 Unknown [id number] 2.16840.1.912285.3.579.2. 462 Unknown [id number] 2.16840.1.534486.3.579.2. 462 Unknown [id number] 2.16840.1.356492.3.579.2. 462 Social History Date Type Detail Facility Start: 09-13-2021 End: 01-10-2022 Tobacco smoking status UTIS Unknown if ever smoked [facility] Work Phone: Start: 04-20-2019 Rare [facility] Start: 12-25-2018 None [facility] Start: 12-25-2018 Alone [facility] Start: 04-20-2019 Cigarettes;Cigars;Chew;P ipe [facility] Start: 1965 Sex Assigned At Male [facility] Start: 09-07-2014 End: 11-30-2024 Tobacco smoking status NHIS Ex-smoker [facility] Start: 09-07-2000 End: 09-07-2010 History of tobacco use Current smoker [facility] Start: 09-07-2000 End: 09-07-2010 History of tobacco use Cigarette Smoker [facility] History of tobacco use Cigar Smoker [facility] Start: 09-07-2014 End: 11-02-2024 Cigarettes smoked current (pack per day) - Reported 1 [facility] Start: 09-07-2014 End: 11-02-2024 Tobacco use and exposure Smokeless tobacco non-user [facility] Start: 11-19-2023 End: 10-20-2024 Alcohol intake Current non-drinker of alcohol (finding) [facility] Start: 02-05-2019 End: 11-02-2024 Social connection and isolation panel [facility] Frequency of Communication with Friends and Family Not on file [facility] Are you now , , , , never or living with a partner? [facility] Start: 10-16-2012 End: 11-02-2024 Tobacco Comment occasionally [facility] Start: 10-16-2012 Alcohol Comment quit, hx [facility] Start: 1965 Sex Assigned At Not on file [facility] Start: 10-20-2024 Sex Male (finding) [facility] Start: 11-02-2024 Alcoholic beverage intake Ex-drinker (finding) [facility] juliana Medical Equipment Procedure Code Equipment Code Equipment Origin al Text Equipment Identifier Dates Test blood sugar (s) 1 times daily. Dx: Type 2 diabetes E11.9. [id number] Start: 04-18-2015 Test blood sugar (s) 2 times daily. Dx: DM 250.0 Insulin: No [id number] Start: 09-01-2014 Goals Date Patient Goal Desired Activity /State Personal health goal Functional Status Date Assessment Result Facility 11-22-2023 Are you deaf, or do you have serious difficulty hearing No 11/22/2023 4:41 PM EDJoselin Hein RN No [facility] 11-22-2023 Are you blind, or do you have serious difficulty seeing, even when wearing glasses No 11/22/2023 4:41 PM Joselin Iqbal, CHIRAG No [facility] 11-22-2023 Do you have serious difficulty walking or climbing stairs No 11/22/2023 4:41 PM Joselin Iqbal, CHIRAG No [facility] 11-22-2023 Do you have difficul ty dressing or bathing No 11/22/2023 4:41 PM Joselin Iqbal RN No [facility] 11-22-2023 Because of a physica l, mental, or emotional condition, do you have difficulty doing errands alone such as visiting a physician's office or shopping No 11/22/2023 4:41 PM Joselin Iqbal RN No [facility] 09-15-2021 Functional status Chair [facility] Work Phone: Mental Status Date Assessment Result Facility 11-30-2024 Cognitive function Awake;Alert;A ppropriate; Follows Commands [facility] Work Phone: 10-20-2024 Cognitive function Voice/Name [facility] Work Phone: 11-22-2023 Because of a physica l, mental, or emotional condition, do you have serious difficulty concentrating, remembering, or making decisions No 11/22/2023 4:41 PM Joselin Iqbal RN No [facility] 09-15-2021 Cognitive function Voice/Name [facility] Work Phone: Clinical Notes 01-18-2021 to 12-06-2024 Note Date & Type Note Facility 12-06-2024 Hospital Discharg e instructions Additional Instructions Your labs and chest x-ray look good today. Your blood sugar is low that came back up. Your blood count is more anemic than you have been. You are 9.4 today. Supposedly you were 9.6 yesterday. Follow-up with your nurse practitioner Heather Barajas. For repeat evaluation. Probably need to have your blood count rechecked in 1 to 2 weeks. 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 COMPARISON: Chest x-ray of 12/14/2023. RAD/Chest 1 View (Portable) IMPRESSION: Left hemidiaphragm elevation with the adjacent compressive left basilar atelectasis is again seen. No evidence of pulmonary edema. No focal infiltrate is otherwise noted. No pleural effusion or pneumothorax is seen. Prior coronary artery stenting is again seen. The cardiomediastinal silhouette is stable, without evidence of cardiomegaly. Reading Location: [address] CC: MARINE CHRONOMETER ASSEMBLER-C Radha Barajas; Dr. Antoine Hahn MD ~ Coating Mixer: Signed [facility] 11-30-2024 Discharge summary Note Date/Time November 30, 2024 4:26pm [facility] Medical Records Department [address] [place] [address] Emergency Department Summary 11/30/24 MR#: [id number] Acct: [id number] Name: DERRELL HOYT Rep #:[id number] : 1965 59 From: Antoine Hahn MD PCP: Radha Barajas, CHRISTIANOC Status: REG ER Location: ED ADDENDUM by Dr. Antoine Hahn MD on 11/30/24 at 1625 Prior to discharge I did speak to the patient's nurse practitioner Heather Barajas. She will follow him up as an outpatient. These are consistent with his baseline labs including his anemia. Patient is comfortable with the plan. 11/30/24 1625<Electronically signed by Antoine Hahn MD> Cosigner Signature (if applicable): cc: UNRULY Barajas ~* Signed HPI History of Present Illness Chief Complaint: Chest Other Detail of Chief Complaint: Just not feeling myself Informant: patient Onset/Context/Timing Onset: Days Context: Gradual Onset Timing: Continuous Current Severity: Mild Maximum Severity: Mild Narrative Narrative: 59-year-old male states past medical history including diabetes, anemia, COPD, hypertension. Last stress test was 11/20/2023 he said he had a heart cath last year also. Patient is just has not felt like himself the last several days. Said he had a constant chest discomfort. He had nausea and vomiting yesterday x1. Denies diarrhea. No melena or hematemesis. No fever. No abdominal pain. No dysuria. Prior similar symptoms: No Recent Illness/Hospitalization: No PFSH PFSH Medical History Redness of skin Thyroid disease Insulin dependent diabetes mellitus Anemia Hepatitis High cholesterol Difficulty swallowing History of diverticulitis Chronic cough History of pain when walking History of stress test History of irregular heartbeat Cellulitis Sleep apnea Lives in assisted living facility Wears glasses Wears dentures Depression Low iron Fatty liver Syncope Dietary restriction CPAP (continuous positive airway pressure) dependence Shortness of breath on exertion History of edema History of echocardiogram Cardiology follow-up encounter Tumor Atherosclerosis of coronary artery of [place] heart without angina pectoris Kidney stones COPD (chronic obstructive pulmonary disease) Former smoker Irregular heart beat NSVT (nonsustained ventricular tachycardia) Diabetes Asthma Hypothyroidism Hypertension Home Medications ?Medication ?Instructions ?Recorded ?Last Taken ?Type potassium chloride 20 mEq 20 meq PO DAILYCM SUPPLEMENT 04/23/19 12/30/23 Rx tablet,extended release(part/cryst) metformin 1,000 mg tablet 1,000 mg PO BID DIABETES 12/30/23 History tamsulosin 0.4 mg capsule 0.4 mg PO QHS PROSTATE 02/0512/29/23 History albuterol sulfate 90 mcg/actuation 2 puff inhalation Q 4H PRN 02/11/21 Unknown History aerosol inhaler SHORTNESS OF BREATH/WHEEZING montelukast 10 mg tablet 10 mg PO QHS ALLERGIES 01/1012/29/23 History (Singulair) acetaminophen 650 mg 650 mg PO Q8H PRN PAIN/FEVER 02/04/22 Unknown History tablet,extended release (Tylenol Arthritis Pain) guaifenesin 600 mg tablet, 600 mg PO Q12H PRN CONGESTI ON 02/04/22 11/18/23 History extended release 12 hr (Mucinex) fluticasone propionate 115 2 puff inhalation BID COPD 07/31/22 12/30/23 History mcg-salmeterol 21 mcg/actuation HFA inhaler (Advair HFA) blood sugar diagnostic 11/25/22 Unknown History atorvastatin 80 mg tablet 80 mg PO QHS CHOLESTEROL 12/29/23 History polyethylene glycol 3350 17 17 g PO DAILY PRN Constipa tion 02/12/24 10/19/24 History gram/dose oral powder (Miralax) metoprolol tartrate 25 mg tablet 25 mg PO BID #120 tab s 03/31/24 10/20/24 Rx levothyroxine 200 mcg tablet 275 mcg PO DAILY THYROID 07/07/24 10/20/24 History omeprazole 20 mg capsule,delayed 20 mg PO DAILY GERD 0 07/13/24 10/20/24 History release semaglutide 2 mg/dose (8 mg/3 mL) 2 mg subcut QWEEK DI ABETES 07/13/24 10/06/24 History subcutaneous pen injector (Ozempic) insulin glargine 100 unit/mL (3 56 unit subcut QPM Unknown History mL) subcutaneous pen (Lantus Solostar U-100 Insulin) lisinopril 2.5 mg tablet 2.5 mg PO DAILY 10/20/24 Unk nown History finasteride 5 mg tablet (Proscar) 5 mg PO QDAY 5 Unknown History glipizide 5 mg tablet 5 mg PO QDAY 11/11/24 Unknow n History melatonin 10 mg tablet 10 mg PO QHS SLEEP 11/11/24 Unknown History sennosides 8.6 mg tablet (Greer-ajith) 17.2 mg PO QDAY Unknown History trazodone 50 mg tablet 150 mg PO QHS SLEEP 11/11/24 Unknown History bisacodyl 10 mg rectal suppository 10 mg OK ONCE PRN c onstipation 11/19/24 Unknown History doxycycline hyclate 100 mg capsule 100 mg PO BID 11/19 Unknown History furosemide 40 mg tablet 40 mg PO BID EDEMA 11/19/24 Unknown History venlafaxine 37.5 mg tablet 37.5 mg PO BID 11/19/24 Unk nown History acetaminophen 325 mg capsule 650 mg PO Q6H PRN pain Unknown History ammonium lactate 12 % topical cream 1 applic topical B ID PRN dry skin 11/30/24 Unknown History levothyroxine 75 mcg tablet 75 mcg PO DAILY 11/30/24 U nknown History (Synthroid) magnesium hydroxide 400 mg/5 mL 30 ml PO DAILY PRN con stipation 11/30/24 Unknown History oral suspension (Dulcolax (magnesium hydroxide)) mineral oil-hydrophil petrolat 1 applic topical DAILY 11/30/24 Unknown History topical ointment (AmeriPhor topical ointment) ondansetron 4 mg disintegrating 4 mg PO DAILY PRN naus ea and 11/30/24 Unknown History tablet vomiting sotalol 120 mg tablet (Betapace) 120 mg PO BID 5 Unknown History Allergy/AdvReac Type Severity Reaction Status Date / Time No Known Allergies Allergy Verified 11/19/24 11:00 Family History Unknown Colon polyps Surgical History History of cardiac catheterization Hx of colonoscopy History of coronary artery stent placement (01/18/21) History of thyroidectomy Social History household members: other details: Assisted living housing: assisted living facility current occupational status: disabled Smoking Status: Former smoker how long ago did patient quit smokin years ago alcohol intake: never substance use type: does not use caffeine: Yes Type: carbonated beverages ROS ROS ED ROS Narrative Atypical chest pain. Constitutional Constitutional ED: Denies chills or fever(s) Eyes Eyes: Denies blurry vision ENT ENT ED: Denies ear pain Cardiovascular Cardiovascular: Reports chest pain; Denies palpitations or racing heartbeat Respiratory/Chest Respiratory/Chest: Reports dyspnea; Denies cough Gastrointestinal Gastrointestinal: Denies abdominal pain Genitourinary Genitourinary ED: Denies dysuria or hematuria Musculoskeletal Musculoskeletal: Denies arthralgias or back pain Integumentary Denies abscess or Abrasions Neurologic Neurologic: Denies headache(s) Psychiatric Psychiatric: Denies anxiety or depression Endocrine Endocrinology: Denies cold intolerance Hematologic/Lymphatic Hematologic/Lymphatic: Reports none Allergic/Immunologic Allergic/Immunologic ED: Denies mouth swelling, tongue swelling or urticaria EXAM Physical Exam Narrative Exam Narrative: 59-year-old male sitting upright in bed. Vital signs are stable. Room air sat 91%. Patient does not look septic dicey. He is in no distress. H EENT exam isround react light. Moist mucous membranes. Face scalp not atraumatic. Neck nontender JVD. Back nontender. Lungs clear to auscultation bilaterally. Heartregular rhythm rate about 70 no murmur. Chest wall and ribs nontender. No ecchymosis or bruising. Abdomen soft, nontender, nondistended normal vitals without peritoneal signs. Moving all 4 extremities. 5 out of 5 as400 programmer strength. Dorsi plantarflexion. Calves are nontender without edema or cords. Neurologically is awake alert. He is answering questions following commands. Const Vital Signs: 11/30/24 12:43 11/30/24 12:43 11/30/24 12:49 Temperature 98.4 F 98.4 F Temperature Source Oral Oral Pulse Rate 72 72 Respiratory Rate 19 H 20 H Respiratory Effort Normal Non-Labored Blood Pressure 109/51 L 105/52 L Blood Pressure Mean 70 69 Pulse Ox 91 96 Oxygen Delivery Method Room Air Nasal Cannula Oxygen Flow Rate (L/min) 2 11/30/24 13:31 11/30/24 13:38 11/30/24 13:48 Temperature 97.5 F L Temperature Source Oral Pulse Rate 75 72 Respiratory Rate 17 19 H Respiratory Effort Blood Pressure 110/53 L 110/53 L Blood Pressure Mean 72 72 Pulse Ox 98 98 98 Oxygen Delivery Method Room Air Nasal Cannula Oxygen Flow Rate (L/min) 2 2 11/30/24 14:00 11/30/24 14:48 11/30/24 15:45 Temperature 97.4 F L 97.8 F Temperature Source Oral Oral Pulse Rate 67 70 Respiratory Rate 14 14 Respiratory Effort Blood Pressure 108/53 L 108/53 L 113/54 L Blood Pressure Mean 71 71 70 Pulse Ox 97 98 100 Oxygen Delivery Method Nasal Cannula Nasal Cannula Oxygen Flow Rate (L/min) 2 2 Positive well nourished, well developed and obese; Negative for cachectic, contractures or unkempt General Appearance ED: well developed and NAD; Negative for unkempt, cachectic, contractures, cyanotic, diaphoretic or pallor Nutritional Appearance: obese; Negative for cachectic HEENT Reports moist mucous membranes Negative for trauma or tenderness Eyes PERRL and EOMs intact bilaterally General Eye ED: Negative for pale conjunctiva or scleral icterus Neck no lymphadenopathy, supple and no JVD General: Negative for tenderness Chest Wall inspection of chest normal and palpation of chest normal Resp normal respiratory effort and clear to auscultation bilaterally Auscultation: Negative for rales, rhonchi, wheezes or diminished lung sounds Cardio regular rate, regular rhythm, S1 normal heart sound, S2 normal heart sound and no murmurs Palpation: Negative for palpable S3 or palpable S4 Rate: Negative for bradycardia, tachycardic or other GI normal to inspection, nondistended, normoactive bowel sounds, non-tender, non-distended and no masses Auscultation: normoactive bowel sounds Palpation: soft; Negative for tender, guarding or rebound tenderness present Back/Spine no CVA tenderness General Back: Negative for CVA tenderness Cervical Spine: Negative for cervical spine tenderness Thoracic Spine / Upper Back: Negative for thoracic spinal tenderness or paraspinal muscle tenderness Lumbar Spine / Lower Back: Negative for lumbar spinal tenderness Extremity normal to inspection General Extremety ED: Negative for edema or tenderness General Extremity: Negative for edema Neuro oriented x3 and CN's II-XII intact bilaterally Sensorium / Orientation: alert; Negative for orientation impaired, lethargic or stuporous Motor Exam: strength 5/5 throughout Psych mental status grossly normal Appearance: Negative for unkempt Attitude: No agitated Mood & Affect: Negative for depressed, anxious or tearful Skin no rashes or lesions noted and no wounds General Skin Exam: Negative for jaundice or pallor Lesions: No lesion noted Rashes: No rashes noted Trauma: Negative for abrasion Wounds: Negative for wounds noted MDM MDM MDM Narrative Medical decision making narrative: 59-year-old male with complaint of just not feeling himself. Atypical constant chest pain for the last several days. History of cardiac disease. Last heart cath was last year. Denies any history of DVT or PE. Get a general medical workup with cardiac enzymes and a D-dimer. Repeat exam patient is doing well at 4:10 PM. Hemoglobin is 9.4 reportedly was 9.6 yesterday. Lateral most recent labs here 8 months ago. I did do a rectal exam there was no gross blood or black stool. I have his nurse practitioner on page. There is no reason to admit the patient at this time. He is comfortable being discharged home. He has eaten here his blood sugars improved. History & Record Review Discussion w/independent historian: Patient Additional record(s) reviewed:: Prior inpatient record, Prior outpatient record,Prior ED visit and Prior labs Lab Data Attestation: I reviewed the patient's lab results. Lab results narrative: CBC shows white count 13.8. H&H 9.4 and 34. Patient is at baseline anemia. Platelets 257. D-dimer is 0.27 normal. Electrolytes show sodium 136. Gap 11. BUN 13 creatinine 0.60. Initial glucose was only 40 nurses rechecked it was 72 show no signs of acute hypoglycemia. Initial troponin was 22. 2-hour troponin was 20. Labs: Laboratory Results - last 24 hr 11/30/24 11/30/24 11/30/24 12:23 14:30 15:00 WBC 13.8 H RBC 4.66 Hgb 9.4 L Hct 34.2 L MCV 73.4 L MCH 20.2 L MCHC 27.5 L RDW Std Deviation 52.0 H RDW Coeff of Jovany 20.2 H Plt Count 257 MPV 9.6 Immature Gran % (Auto) 0.400 Neut % (Auto) 77.4 H Lymph % (Auto) 11.5 L [place] % (Auto) 8.8 Eos % (Auto) 1.5 Baso % (Auto) 0.4 Absolute Neuts (auto) 10.7 H Absolute Lymphs (auto) 1.59 Nucleated RBC % 0 Platelet Estimate A Polychromasia 1+ Anisocytosis 1+ Ovalocytes 1+ D-Dimer Quant (PE/DVT) 0.27 Sodium 136 Potassium 4.2 Chloride 93 L Carbon Dioxide 32.0 Anion Gap 11 BUN 13 Creatinine 0.68 L Estim Creat Clear Calc 178.68 Est GFR (MDRD) Non-Af 107 BUN/Creatinine Ratio 19.2 Glucose 40 L* Calcium 9.3 Troponin T High Sens 22 Troponin T Hi Sens 2 Hr 20 POC Glucose 52 L 11/30/24 15:17 WBC RBC Hgb Hct MCV MCH MCHC RDW Std Deviation RDW Coeff of Jovany Plt Count MPV Immature Gran % (Auto) Neut % (Auto) Lymph % (Auto) [place] % (Auto) Eos % (Auto) Baso % (Auto) Absolute Neuts (auto) Absolute Lymphs (auto) Nucleated RBC % Platelet Estimate Polychromasia Anisocytosis Ovalocytes D-Dimer Quant (PE/DVT) Sodium Potassium Chloride Carbon Dioxide Anion Gap BUN Creatinine Estim Creat Clear Calc Est GFR (MDRD) Non-Af BUN/Creatinine Ratio Glucose Calcium Troponin T High Sens Troponin T Hi Sens 2 Hr POC Glucose 74 Radiography Chest X-Ray - ED: 1 View, Read by ED Physician, Read by Radiologist, Heart, Lungs, Mediastinum, Bony Structures, No Acute Disease and Chronic Changes Diagnostic Testing: Clinical Impression(s) from Imaging Studies Chest X-Ray 11/30/24 13:30 IMPRESSION: Left hemidiaphragm elevation with the adjacent compressive left basilar atelectasis is again seen. No evidence of pulmonary edema. No focal infiltrate is otherwise noted. No pleural effusion or pneumothorax is seen. Prior coronary artery stenting is again seen. The cardiomediastinal silhouette is stable, without evidence of cardiomegaly. Reading Location: [id number] Chest x-ray, 2 films AP view. Shows chronic changes. No acute process. Bibasilar atelectasis. Rhythm Strip Rhythm Strip: Sinus Rhythm Rate: 74 Ectopy: None EKG Initial EKG: Attestation: I personally reviewed and interpreted this EKG as follows: Interpretation: Sinus Rhythm and No Acute Injury Pattern Comments: Normal sinus rhythm rate of 74 no acute signs of [place] or ischemia. No dysrhythmia. Discharge Plan Triage Chief Complaint: Chest Other ED Provider: Antoine Hahn Dx/Rx/DC Orders Clinical Impression: Malaise, Atypical chest pain, Chronic anemia, Hypoglycemia, History of diabetesmellitus Instructions: ED Chest Pain, Uncertain Cause Prescriptions: No Action tamsulosin 0.4 mg capsule 0.4 mg PO QHS acetaminophen [Tylenol Arthritis Pain] 650 mg tablet extended release 650 mg PO Q8H PRN (Reason: PAIN/FEVER) guaifenesin [Mucinex] 600 mg tablet extended release 12hr 600 mg PO Q12H PRN (Reason: CONGESTION ) montelukast [Singulair] 10 mg tablet 10 mg PO QHS fluticasone propion-salmeterol [Advair HFA] 115-21 mcg/actuation HFA aerosol inhaler 2 puff inhalation BID melatonin 10 mg tablet 10 mg PO QHS (DME) blood sugar diagnostic Kit See Rx Instructions .Route Rx Instructions: As directed omeprazole 20 mg capsule,delayed release(DR/EC) 20 mg PO DAILY Ozempic 2 mg/dose (8 mg/3 mL) pen injector 2 mg subcut QWEEK Rx Instructions: FRIDAY polyethylene glycol 3350 [Miralax] 17 gram/dose powder 17 g PO DAILY PRN (Reason: Constipation) bisacodyl 10 mg suppository 10 mg OK ONCE PRN (Reason: constipation) doxycycline hyclate 100 mg capsule 100 mg PO BID venlafaxine 37.5 mg tablet 37.5 mg PO BID sennosides [Greer-ajith] 8.6 mg tablet 17.2 mg PO QDAY glipizide 5 mg tablet 5 mg PO QDAY finasteride [Proscar] 5 mg tablet 5 mg PO QDAY potassium chloride 20 MEQ tablet 20 meq PO DAILYCM 0RF metformin 1,000 mg tablet 1,000 mg PO BID albuterol sulfate 90 mcg/actuation HFA aerosol inhaler 2 puff INHALATION Q4H PRN (Reason: SHORTNESS OF BREATH/WHEEZING ) trazodone 50 mg tablet 150 mg PO QHS atorvastatin 80 mg tablet 80 mg PO QHS levothyroxine 200 mcg tablet 275 mcg PO DAILY furosemide 40 mg tablet 40 mg PO BID metoprolol tartrate 25 mg Tablet 25 mg PO BID Qty: 120 2RF insulin glargine [Lantus Solostar U-100 Insulin] 100 unit/mL (3 mL) insulin pen 56 unit subcut QPM acetaminophen 325 mg capsule 650 mg PO Q6H PRN (Reason: pain) ammonium lactate 12 % cream 1 applic topical BID PRN (Reason: dry skin) AmeriPhor Ointment 1 applic topical DAILY levothyroxine [Synthroid] 75 mcg tablet 75 mcg PO DAILY Rx Instructions: WITH 200MCG TAB magnesium hydroxide [Dulcolax (magnesium hydroxide)] 400 mg/5 mL suspension 30 ml PO DAILY PRN (Reason: constipation) ondansetron 4 mg tablet,disintegrating 4 mg PO DAILY PRN (Reason: nausea and vomiting) sotalol [Betapace] 120 mg tablet 120 mg PO BID lisinopril 2.5 mg tablet 2.5 mg PO DAILY Primary Care Provider: Radha Barajas MARINE CHRONOMETER ASSEMBLER Referrals: Radha Barajas MARINE CHRONOMETER ASSEMBLER, MARINE CHRONOMETER ASSEMBLER-C [Primary Care Provider] - As soon as possible Activity Restrictions/Additional Instructions: Your labs and chest x-ray look good today. Your blood sugar is low that came back up. Your blood count is more anemic than you have been. You are 9.4 today. Supposedly you were 9.6 yesterday. Follow-up with your nurse practitioner Heather Barajas. For repeat evaluation. Probably need to have your blood count rechecked in 1 to 2 weeks. Print Language: Israeli Disposition Disposition: Home, Self Care What to do if you have Problems For any increased pain, shortness of breath, bleeding, nausea or vomiting, chestpain, or any unexpected problems, contact your Primary Care Provider. Call [facility] ([phone]) or report to the closest Emergency Room. Call 911 if necessary. 11/30/24 1621 <Electronically signed by Antoine Hahn MD> Cosigner Signature (if applicable): CC: MARINE CHRONOMETER ASSEMBLER-C Radha Barajas ~ Signed [facility] Work Phone: [phone] 306-586306-10-2025 Hospital Discharge instructions Additional Instructions Your labs and chest x-ray look good today. Your blood sugar is low that came back up. Your blood count is more anemic than you have been. You are 9.4 today. Supposedly you were 9.6 yesterday. Follow-up with your nurse practitioner Heather Barajas. For repeat evaluation. Probably need to have your blood count rechecked in 1 to 2 weeks.[facility] Work Phone: [phone]) 913-748205-13-2025 Instructions* Patient Instructions* Ella Bernal PA-C - 11/02/2024 9:15 AM EDT Continue taking Flomax as usual. Start taking ProScar at bedtime alongside your Flomax. It may take about six months to see full benefit; if you don t notice any change by three months, please let us know. Increase your water intake to help boost your urine output. Provide a urine sample at each visit so we can check for any signs of infection or prostate inflammation. Plan to follow up in three months if you do not observe improvement. [facility] NoteHNO ID: [id number] Author: ELLA BERNAL PA-C Service: ? Author Type: Physician Factory Laborer Type: Progress Notes Filed: 11/02/2024 13:31 Note Text: [facility] PATIENT CLINIC NOTE (M) Note was generated by [employer] and edited as appropriate SERVICE DATE: November 02, 2024 NAME: Derrell Hoyt GENDER: male CHIEF COMPLAINT: for evaluation of decreased urinary stream. HISTORY OF PRESENT ILLNESS: The patient is a 59-year-old male presenting for evaluation of decreased urinary stream. Decreased Urinary Stream: - Decreased urinary stream, unclear duration. - Attributes symptoms to inadequate hydration. - Unable to provide urine sample today. - Denies recent UTIs, dysuria, or urgency. - Reports urinary frequency, including nocturia. - Currently taking Flomax at bedtime, duration unknown. > We discussed the common causes of urinary frequency and urgency, and restricting water intake In hopes to mitigate the need to urinate, we discussed how this behavior more often worsen the problem not improving it, > We discussed increasing daily water intake to 64-84 oz 7a -7p and try to reduce bladder irritants, caffeine, alcohol and acid foods and drink. LABS: PSA Screening (ng/mL) Date Value 09/12/2015 0.18 No results found for: TESTOST Hematocrit (%) Date Value 11/21/2023 37.8 11/20/2023 37.5 11/19/2023 39.5 04/12/2019 44.4 08/20/2018 45.9 07/02/2018 44.5 PSA Screening (ng/mL) Date Value 09/12/2015 0.18 MEDICATIONS: senna (GREER-AJITH) 8.6 mg tab Take 17.2 mg by mouth every evening. glipiZIDE (GLUCOTROL) 5 mg tablet Take 5 mg by mouth once daily. LISINOPRIL ORAL Take 2.5 mg by mouth once daily. venlafaxine (EFFEXOR) 25 mg tablet Take 25 mg by mouth two times a day. Increase to 37.5 MG by mouth twice daily after 14 days sotalol (BETAPACE) 120 mg tablet Take 120 mg by mouth two times a day. atorvastatin (LIPITOR) 80 mg tablet Take 1 tablet by mouth daily at bedtime. levothyroxine (SYNTHROID) 25 mcg tablet Take 1 tablet by mouth daily before breakfast. Add to 200 mcg tablet for a total dose of 225 mcg each morning. metoprolol tartrate, short acting, (LOPRESSOR) 100 mg tablet Take 1 tablet by mouth two times a day. (Patient taking differently: Take 25 mg by mouth two times a day.) melatonin 3 mg tablet Take 1 tablet by mouth daily at bedtime. (Patient taking differently: Take 10 mg by mouth daily at bedtime.) furosemide (LASIX) 40 mg tablet Take 1 tablet by mouth once daily as needed (Lower extremity edema if persisting despite leg elevation and/or COREY hose, or greater than 3 lb weight gain within days). (Patient taking differently: Take 40 mg by mouth two times a day.) potassium chloride ER (KLOR-CON) 20 mEq tablet Take 1 tablet by mouth as directed. Only need to take if taking lasix/furosemide (Patient taking differently: Take 20 mEq by mouth two times a day.) polyethylene glycol 3350 17 gram packet Take 17 g by mouth once daily as needed for constipation. Dissolve dose in 4 - 8 ounces of liquid and take as directed. fluticasone-salmeterol HFA (ADVAIR HFA) 115-21 mcg/actuation inhaler Inhale 2 Puffs as instructed two times a day. montelukast (SINGULAIR) 10 mg tablet Take 10 mg by mouth daily at bedtime. omeprazole (PRILOSEC) 20 mg capsule Take 20 mg by mouth once daily. semaglutide (OZEMPIC) 1 mg/0.75 ml subcutaneous pen injector Inject 2 mg subcutaneously one time a week. (Patient taking differently: Inject 2 mg subcutaneously one time a week. 0.75 mL sub-q every week on Friday) insulin glargine (LANTUS U-100 INSULIN) 100 unit/mL injection Inject 38 Units subcutaneously daily at bedtime. (Patient taking differently: Inject 56 Units subcutaneously daily at bedtime.) traZODone (DESYREL) 50 mg tablet Take 50 mg by mouth daily at bedtime. (Patient taking differently: Take 150 mg by mouth daily at bedtime.) acetaminophen (TYLENOL) 325 mg tablet Take 650 mg by mouth every 8 hours as needed for pain or fever (specify temp.). albuterol HFA (PROVENTIL HFA, VENTOLIN HFA) 90 mcg/actuation inhaler Inhale 2 Puffs as instructed every 4 hours as needed for wheezing/shortness of breath. carboxymethylcellulose sodium (ARTIFICIAL TEARS) 1 % drops Use 1 Drop in both eyes as needed (dry eyes). (Patient taking differently: Use 1 Drop in both eyes as needed (dry eyes).) guaiFENesin (MUCINEX) 600 mg 12 hr tablet Take 1,200 mg by mouth twice daily as needed (congestion). glucagon (GVOKE HYPOPEN 1-PACK) 1 mg/0.2 mL AutoInjector Inject 1 Dose subcutaneously as needed (for unresponsive hypoglycemia). levothyroxine (SYNTHROID) 200 mcg tablet Take 200 mcg by mouth daily before breakfast. Add to 25 mcg tablet for a total dose of 225 mcg each morning. metFORMIN (GLUCOPHAGE) 1,000 mg tablet Take 1,000 mg by mouth twice daily with meals. Give one tablet in the morning and one tablet in (more content not included)...[facility]05-13-2025 History of Present illness Narrative* Ella Bernal PA-C - 11/02/2024 8:55 AM EDT Images from the original note were not included. [facility] PATIENT CLINIC NOTE (M) Note was generated by [employer] and edited as appropriate SERVICE DATE: November 02, 2024 NAME: Derrell Hoyt GENDER: male CHIEF COMPLAINT: for evaluation of decreased urinary stream. HISTORY OF PRESENT ILLNESS: The patient is a 59-year-old male presenting for evaluation of decreased urinary stream. Decreased Urinary Stream: - Decreased urinary stream, unclear duration. - Attributes symptoms to inadequate hydration. - Unable to provide urine sample today. - Denies recent UTIs, dysuria, or urgency. - Reports urinary frequency, including nocturia. - Currently taking Flomax at bedtime, duration unknown. > We discussed the common causes of urinary frequency and urgency, and restricting water intake In hopes to mitigate the need to urinate, we discussed how this behavior more often worsen the problem not improving it, > We discussed increasing daily water intake to 64-84 oz 7a -7p and try to reduce bladder irritants, caffeine, alcohol and acid foods and drink. LABS: PSA Screening (ng/mL) Date Value 09/12/2015 0.18 No results found for: TESTOST Hematocrit (%) Date Value 11/21/2023 37.8 11/20/2023 37.5 11/19/2023 39.5 04/12/2019 44.4 08/20/2018 45.9 07/02/2018 44.5 PSA Screening (ng/mL) Date Value 09/12/2015 0.18 MEDICATIONS: senna (GREER-AJITH) 8.6 mg tab Take 17.2 mg by mouth every evening. glipiZIDE (GLUCOTROL) 5 mg tablet Take 5 mg by mouth once daily. LISINOPRIL ORAL Take 2.5 mg by mouth once daily. venlafaxine (EFFEXOR) 25 mg tablet Take 25 mg by mouth two times a day. Increase to 37.5 MG by mouth twice daily after 14 days sotalol (BETAPACE) 120 mg tablet Take 120 mg by mouth two times a day. atorvastatin (LIPITOR) 80 mg tablet Take 1 tablet by mouth daily at bedtime. levothyroxine (SYNTHROID) 25 mcg tablet Take 1 tablet by mouth daily before breakfast. Add to 200 mcg tablet for a total dose of 225 mcg each morning. metoprolol tartrate, short acting, (LOPRESSOR) 100 mg tablet Take 1 tablet by mouth two times a day. (Patient taking differently: Take 25 mg by mouth two times a day.) melatonin 3 mg tablet Take 1 tablet by mouth daily at bedtime. (Patient taking differently: Take 10mg by mouth daily at bedtime.) furosemide (LASIX) 40 mg tablet Take 1 tablet by mouth once daily as needed (Lower extremity edema if persisting despite leg elevation and/or COREY hose, or greater than 3 lb weight gain within days). (Patient taking differently: Take 40 mg by mouth two times a day.) potassium chloride ER (KLOR-CON) 20 mEq tablet Take 1 tablet by mouth as directed. Only need to take if taking lasix/furosemide (Patient taking differently: Take 20 mEq by mouth two times a day.) polyethylene glycol 3350 17 gram packet Take 17 g by mouth once daily as needed for constipation. Dissolve dose in 4 - 8 ounces of liquid and take as directed. fluticasone-salmeterol HFA (ADVAIR HFA) 115-21 mcg/actuation inhaler Inhale 2 Puffs as instructed two times a day. montelukast (SINGULAIR) 10 mg tablet Take 10 mg by mouth daily at bedtime. omeprazole (PRILOSEC) 20 mg capsule Take 20 mg by mouth once daily. semaglutide (OZEMPIC) 1 mg/0.75 ml subcutaneous pen injector Inject 2 mg subcutaneously one time a week. (Patient taking differently: Inject 2 mg subcutaneously one time a week. 0.75 mL sub-q every week on Friday) insulin glargine (LANTUS U-100 INSULIN) 100 unit/mL injection Inject 38 Units subcutaneously daily at bedtime. (Patient taking differently: Inject 56 Units subcutaneously daily at bedtime.) traZODone (DESYREL) 50 mg tablet Take 50 mg by mouth daily at bedtime. (Patient taking differently:Take 150 mg by mouth daily at bedtime.) acetaminophen (TYLENOL) 325 mg tablet Take 650 mg by mouth every 8 hours as needed for pain or fever (specify temp.). albuterol HFA (PROVENTIL HFA, VENTOLIN HFA) 90 mcg/actuation inhaler Inhale 2 Puffs as instructed every 4 hours as needed for wheezing/shortness of breath. carboxymethylcellulose sodium (ARTIFICIAL TEARS) 1 % drops Use 1 Drop in both eyes as needed (dry eyes). (Patient taking differently: Use 1 Drop in both eyes as needed (dry eyes).) guaiFENesin (MUCINEX) 600 mg 12 hr tablet Take 1,200 mg by mouth twice daily as needed (congestion). glucagon (GVOKE HYPOPEN 1-PACK) 1 mg/0.2 mL AutoInjector Inject 1 Dose subcutaneously as needed (for unresponsive hypoglycemia). levothyroxine (SYNTHROID) 200 mcg tablet Take 200 mcg by mouth daily before breakfast. Add to 25 mcg tablet for a total dose of 225 mcg each morning. metFORMIN (GLUCOPHAGE) 1,000 mg tablet Take 1,000 mg by mouth twice daily with meals. Give one tablet in the morning and one tablet in the afternoon (supervised self-administration) tamsulosin (FLOMAX) 0.4 mg Take 0.4 mg by mouth daily at bedtime. finasteride (PROSCAR) 5 mg tablet Take 1 tablet by mouth once daily. levothyroxine (SYNTHROID) 25 mcg tablet Take 1 tablet by mouth daily at 6 am. Add to 200 mcg tablets for total 225 mcg sodium chloride (OCEAN NASAL MIST NASAL) Use 2 Sprays in the nose every 4 hours as needed (For dry nares). Fish Oil-[place]-3 Fatty Acids (FISH OIL) 340-1,000 mg cap Take 2 capsules by mouth once daily. aspirin, enteric coated (ASPIRIN, ENTERIC COATED) 81 mg EC tablet Take 1 tablet by mouth once daily. benzocaine 20 % gel Use 1 application as instructed as needed (sore gums). One dental application every 4 hours as needed for sore gums (supervised self-administration) citalopram (CELEXA) 20 mg tablet Take 20 mg by mouth once daily. mometasone-formoterol (DULERA) 100-5 mcg/actuation inhaler Inhale 2 Puffs as instructed twice daily. DULoxetine (CYMBALTA) 60 mg capsule Take 60 mg by mouth two times a day. guaiFENesin (ROBITUSSIN) 100 mg/5 mL syrup Take 200 mg by mouth daily at bedtime. For cough aluminum & magnesium hydroxide-simethicone (MYLANTA MAXIMUM STRENGTH) 400-400-40 mg/5 mL suspension Take 15 mL by mouth every 3 hours as needed (indigestion). senna-docusate (SENNA-S) 8.6-50 mg per tablet Take 2 tablets by mouth daily at bedtime. blood sugar diagnostic (FREESTYLE LITE STRIPS) test strip Test blood sugar(s) 1 times daily. Dx: Type 2 diabetes E11.9. Blood-Glucose Meter (FREESTYLE LITE METER) monitoring kit Freestyle LITE Meter Kit - (Patient taking differently: 1 Each three times a day. Freestyle LITE Meter Kit -) Lancets (FREESTYLE LANCETS) lancets Test blood sugar(s) 2 times daily. Dx: DM 250.0 Insulin: No (Patient taking differently: 1 Each three times a day. Dx: DM 250.0 Insulin: No) PAST MEDICAL HISTORY: PAST MEDICAL HISTORY Diagnosis Date Benign hypertension CAD (coronary artery disease) 2020 Depression H/O echocardiogram 11/19/2023 EF 63 5%, mild LVH, no PFO, no significant valvular abnormalities H/O heart artery stent 12/2020 BMS-proximal LAD History of cardiac cath 11/21/2023 LM normal, 20% mid LAD, patent stent-proximal LAD, mild luminal irregularities of the circumflex and RCA, RI absent by cardiac cath at [facility] History of stress test 11/19/2023 EF 75%, no scar, less than 10% ischemia in the territory of the circumflex Hypothyroidism Mixed hyperlipidemia Multinodular goiter Obstructive sleep apnea syndrome Orthostatic hypotension Papillary thyroid carcinoma (HCC) 01/2015 PVCs (premature ventricular contractions) 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) PAST SURGICAL HISTORY: PAST SURGICAL HISTORY Procedure Laterality Date ; THYROIDECTOMY TOTAL OR COMPLETE 04/2015 KNEE LEFT OP SURGERY 1997 benign tumor TONSILLECTOMY AND ADENOIDECTOMY HX 73 FAMILY HISTORY: FAMILY HISTORY Problem Relation Age of Onset Heart Mother Alcohol/Drug Mother Diabetes Mother Stroke Mother Heart Father valve disease Alcohol/Drug Father Diabetes Father No Known Problems Maternal Grandmother No Known Problems Maternal Grandfather Hypertension Paternal Grandmother Heart Paternal Grandmother Cancer Paternal Grandfather pancreatic, alcoholic Prostate Cancer Paternal Grandfather Colon Cancer Paternal Uncle SOCIAL HISTORY: Social Connections: Unknown (02/05/2019) Social Connection and Isolation Panel [NHANES] Frequency of Communication with Friends and Family: Not on file Frequency of Social Gatherings with Friends and Family: Not on file Attends Tenriism Services: Not on file Active Member of Clubs or Organizations: Not on file Attends Club or Organization Meetings: Not on file Marital Status: REVIEW OF SYSTEMS: Genitourinary: (+) slow urinary stream, (+) urinary frequency, (+) nocturia, (-) dysuria, (-) urinary urgency PHYSICAL EXAMINATION: Blood pressure 98/62, pulse 80, temperature 36.5 C (97.7 F), temperature source Temporal, resp. rate 20, height 185.4 cm (6' 1), weight (!) 147 kg (324 lb), SpO2 90%. General: Alert & oriented, no acute distress Skin: Normal HEENT: Pupils equal, round. Oral cavity, oropharynx clear Neck: Supple, no mass Breast: Deferred Respiratory: Clear to auscultation, bilaterally Cardiovascular: Regular rate and rhythm, no murmurs, rubs, or gallops Abdomen: Soft, non-tender, non-distended, no masses palpable, no hepatosplenomegaly, normal bowel sounds Genitourinary: Deferred MSK: Back is non-tender Extremities: No clubbing, cyanosis, or edema PROBLEM LIST REVIEW: Yes LABS: Not able to give urine PROCEDURES: PVR: 0 ml ASSESSMENT/PLAN: 1. Increased frequency of urination (R35.0) - Nocturia and decreased urinary stream. Currently on Flomax. Initiated Proscar to be taken at bedtime alongside Flomax; discussed that it takes approximately 6 months to become fully effective. Advised follow-up in 3 months to assess efficacy; if improvement is noted, continue for a year. If no improvement, further evaluation will be necessary. 2. Screening for genitourinary condition (Z13.89) - Unable to provide urine sample today. Advised to provide a urine sample at each visit to screen for urinary tract infections or prostatic inflammation. 3. Dysuria (R30.0) Chronic progressing, worsening > 3 mo. Appt w/ B. ANGELA Bernal MT, PA-C for new Rx Follow-up Patient Instructions (AVS) - printed for patient Continue taking Flomax as usual. Start taking ProScar at bedtime alongside your Flomax. It may take about six months to see full benefit; if you don t notice any change by three months, please let us know. Increase your water intake to help boost your urine output. Provide a urine sample at each visit so we can check for any signs of infection or prostate inflammation. Plan to follow up in three months if you do not observe improvement. ANGELA Sesay MT, PA-C * Barbara Arroyo LPN - 11/02/2024 8:29 AM EDT Verified name and date of . CC Post Void Residual HPI: Derrell Hoyt is a 59 year old male. The patient is here now for an appointment with ANGELA Sesay MT, BRENT. Procedure: Explained procedure to patient and verbalizes understanding. Performed a PVR. Patient attempted to urinate but was unable to at this time. Results of scan: 0 mL The patient tolerated the procedure well. Plan: Appointment with Ella. [facility] NoteHNO ID: [id number] Author: BARBARA ARROYO LPN Service: ? Author Type: LICENSED NURSE Type: Progress Notes Filed: 11/02/2024 13:31 Note Text: Verified name and date of . CC Post Void Residual HPI: Derrell Hoyt is a 59 year old male. The patient is here now for an appointment with ANGELA Sesay MT, BRENT. Procedure: Explained procedure to patient and verbalizes understanding. Performed a PVR. Patient attempted to urinate but was unable to at this time. Results of scan: 0 mL The patient tolerated the procedure well. Plan: Appointment with Ella.[facility]05-08-2025 Telephone encounter Note* Telephone Encounter - Barbara Arroyo LPN - 10/28/2024 4:06 PM EDT Called [facility] due to CareEverywhere. Spoke with Rupali. Patient discharged with them in 2019. Barbara Arroyo LPN [facility]05-08-[facility]25 Miscellaneous Notes* Telephone Encounter - Barbara Arroyo LPN - 10/28/2024 4:06 PM EDT Called [facility] due to CareEverywhere. Spoke with Rupali. Patient discharged with them in 2019. Barbara Arroyo LPN * Telephone Encounter - Barbara Arroyo LPN - 10/20/2024 9:21 AM EDT Called patient. No answer- left message to call clinic. Patient has appointment in October to see urology for Increased Urination & Dysuria. No referral insystem. Has patient been seen elsewhere for urological issues and if so where? We like to request records for appointment. Barbara Arroyo LPN documented in this encounterA[facility]04-30-2025 Consult note [facility] Medical Records Department [address] [place] [address] Anesthesia Postop Eval II 10/20/24 1108 MR#: [id number] Acct: [id number] Name: DERRELL HOYT Rep #:[id number] : 1965 59 From: Steve Mckenzie MD PCP: UNRULY Tamez Status: [facility] [place] Race: C Location: [place] [address] Anesthesia Postop Eval I Sum Postop Eval Completion status Anesthesia document: Postop Eval 1 completed: Yes Anesthesia Postop Eval I Summary Anesthesia Postop Eval I Summary: Anesthesia Postop Eval I: Assessment Summary Airway patent Yes 10/20/24 10:46 [email or web address] Spontaneous unlabored Yes 10/20/24 10:46 [email or web address] respirations Mental status Awake,Calm 10/20/24 10:46 [email or web address] nausea No 10/20/24 10:46 [email or web address] Vomiting No 10/20/24 10:46 [email or web address] Anesthesia Postop Eval I: Fluid Summary Crystalloid volume administer 400 10/20/24 10:46 [email or web address] (ml) Colloids volume administered ( ml) Blood Product volume administered (ml) Total IV fluid infused 400 10/20/24 10:46 [email or web address] Anesthesia Postop Eval I: Summary Notes Anesthesia Complication No 10/20/24 10:46 [email or web address] Anesthesia Complication Comment: Post-operative progress note Anesthesia: Postop Eval II Evaluation Mental status: Awake Pain Level: 0 nausea: No Vomiting: No 10/20/24 1108 > Date _ Steve Pulido Signature: Date CC: ~ Signed [facility]04-30-2025 Consult note [facility] Medical Records Department [address] [facility] [place] [address] Anesthesia Postop Eval I 10/20/24 1045 MR#: [id number] Acct: [id number] Name: DERRELL HOYT Rep #:[id number] : 1965 59 From: Diego Tejeda PCP: Radha Barajas, MARINE CHRONOMETER ASSEMBLER-C Status: [facility] [place] Race: C Location: [place] [address] Anesthesia: Postop Eval I Current Vital Signs Temperature: 98.2 F Pulse Rate: 76 Blood Pressure: 85/42 Respiratory Rate: 16 Pulse Ox: 93 Oxygen Delivery Method: Room Air Assessment Airway patent: Yes Spontaneous unlabored respirations: Yes Mental status: Awake and Calm nausea: No Vomiting: No Anesthesia Complication: No Fluid Hydration Crystalloid volume administer (ml): 400 Total IV fluid infused: 400 Progress Note Anesthesia document: Postop Eval 1 completed: Yes 10/20/24 1046 > Date _ Diego Pulido Signature: Date CC: ~ Signed [facility]04-30-2025 Procedure note [facility] Medical Records Department [address] [place] [address] Colonoscopy Report MR#: [id number] Acct: [id number] Name: DERRELL HOYT Rep #:[id number] : 1965 59 From: Mata Pastor DO PCP: Radha Barajas MARINE CHRONOMETER ASSEMBLER-C Status: [facility] Patient Name: Derrell Hoyt Procedure Date: 10/20/2024 10:04 AM Date of : 1965 Age: 59 Procedure: Colonoscopy Indications: Colon polyps of uncertain behavior Providers: Mata Pastor DO Medicines: Monitored Anesthesia Care Patient Profile: This is a 59 year old male. Refer to note in patient chart for documentation of history and physical. Patient has symptoms of chronic epigastric abdominal pain and chronic dyspepsia. This is a 59 year old male. Refer to note in patient chart for documentation of history and physical. Last Colonoscopy: within the past 3 years. Complications: No immediate complications. Procedure: Pre-Anesthesia Assessment: - Prior to the procedure, a History and Physical was performed, and patient medications and allergies were reviewed. The patient is competent. The risks and benefits of the procedure and the sedation options and risks were discussed with the patient. All questions were answered and informed consent was obtained. Patient identification and proposed procedure were verified by the physician in the pre-procedure area. Mental Status Examination: alert and oriented. Airway Examination: normal oropharyngeal airway and neck mobility. Respiratory Examination: clear to auscultation. CV Examination: normal. Prophylactic Antibiotics: The patient does not require prophylactic antibiotics. Prior Anticoagulants: The patient has taken no anticoagulant or antiplatelet agents except for NSAID medication. ASA Grade Assessment: II - A patient with mild systemic disease. After reviewing the risks and benefits, the patient was deemed in satisfactory condition to undergo the procedure. The anesthesia plan was to use monitored anesthesia care (MAC). Immediately prior to administration of medications, the patient was re-assessed for adequacy to receive sedatives. The heart rate, respiratory rate, oxygen saturations, blood pressure, adequacy of pulmonary ventilation, and response to care were monitored throughout the procedure. The physical status of the patient was re-assessed after the procedure. After I obtained informed consent, the scope was passed under direct vision. Throughout the procedure, the patient's blood pressure, pulse, and oxygen saturations were monitored continuously. The Colonoscope was introduced through the anus and advanced to the cecum, identified by appendiceal orifice and ileocecal valve. The colonoscopy was performed without difficulty. The patient tolerated the procedure well. The quality of the bowel preparation was fair. Scope In: 10:07:20 AM Scope Withdrawal Time 0 hours 14 minutes 54 seconds Scope Out: 10:28:04 AM Total Procedure Duration Time 0 hours 20 minutes 44 seconds Findings: The perianal and digital rectal examinations were normal. A 15 mm polyp was found in the ascending colon. The polyp was sessile. The polyp was removed with a hot snare. Resection and retrieval were complete. Verification of patient identification for the specimen was done. Estimated blood loss was minimal. Multiple small-mouthed diverticula were found in the recto-sigmoid colon, sigmoid colon and descending colon. Multiple sessile polyps were found in the entire colon. The polyps were 1 to 2 mm in size. Biopsies were taken with a cold forceps for histology. Verification of patient identification for the specimen was done. Estimated blood loss was minimal. Impression: - Preparation of the colon was fair. - One 15 mm polyp in the ascending colon, removed with a hot snare. Resected and retrieved. - Diverticulosis in the recto-sigmoid colon, in the sigmoid colon and in the descending colon. - Multiple 1 to 2 mm polyps in the entire colon. Biopsied. Recommendation: - Repeat colonoscopy for surveillance. - Continue present medications. Procedure Code(s): --- Professional --- 87904, Colonoscopy, flexible; with removal of tumor(s), polyp(s), or other lesion(s) by snare technique 70952, 59, Colonoscopy, flexible; with biopsy, single or multiple CPT copyright 2021 [employer]. All rights reserved. The codes documented in this report are preliminary and upon dock supervisor review may be revised to meet current compliance requirements. Mata Pastor DO 10/20/2024 10:42:28 AM This report has been signed electronically. Number of Addenda: 0 Note Initiated On: 10/20/2024 10:04 AM 10/20/24 1042 Date _ Mata Gaytan Signature: Date (if indicated) CC: MARINE CH[employer]OMETER ASSEMBLER-C Radha Barajas; Mata Pastor DO ~ Date Dictated: 10/20/24 1004 Date Transcribed: Coating Mixer: DEBBY Signed [facility]04-30-2025 Procedure note [facility] Medical Records Department [address] [place] [address] Operative Report - CC Letter MR#: [id number] Acct: [id number] Name: DERRELL HOYT Rep #:[id number] : 1965 59 From: Mata Pastor DO PCP: CHRISTIANO TamezC Status: [facility] 10/20/2024 Radha Barajas Re : Colonoscopy procedure for Derrell Hoyt Dear Karl This procedure was performed on Friday, October 20, 2024. My impressions and recommendations are as follows: Impressions : - Preparation of the colon was fair. - One 15 mm polyp in the ascending colon, removed with a hot snare. Resected and retrieved. - Diverticulosis in the recto-sigmoid colon, in the sigmoid colon and in the descending colon. - Multiple 1 to 2 mm polyps in the entire colon. Biopsied. Recommendations : - Repeat colonoscopy for surveillance. - Continue present medications. My findings are described in the full procedure note, which is enclosed. If I can be of further assistance, please feel free to contact me at . Sincerely, Mata Pastor DO 10/20/2024 10:42:28 AM This report has been signed electronically. 10/20/24 1042 Date _ Mata Wongigner Signature: Date (if indicated) CC: MARINE CHRONOMETER ASSEMBLER-Brittany Pastor DO ~ Date Dictated: 10/20/24 1004 Date Transcribed: Coating Mixer: DEBBY Signed [facility]04-30-2025 Procedure note [facility] Medical Records Department [address] [place] [address] EGD Report MR#: [id number] Acct: [id number] Name: DERRELL HOYT Rep #:[id number] : 1965 59 From: Mata Pastor DO PCP: UNRULY Tamez Status: REG [facility] Patient Name: Derrell Hoyt Procedure Date: 10/20/2024 9:51 AM Date of : 1965 Age: 59 Procedure: Upper GI endoscopy Indications: Iron deficiency anemia Providers: Mata Pastor DO Medicines: Monitored Anesthesia Care Patient Profile: This is a 59 year old male. Refer to note in patient chart for documentation of history and physical. Patient has symptoms of chronic epigastric abdominal pain and chronic dyspepsia. Complications: No immediate complications. Procedure: Pre-Anesthesia Assessment: - Prior to the procedure, a History and Physical was performed, and patient medications and allergies were reviewed. The patient is competent. The risks and benefits of the procedure and the sedation options and risks were discussed with the patient. All questions were answered and informed consent was obtained. Patient identification and proposed procedure were verified by the physician in the pre-procedure area. Mental Status Examination: alert and oriented. Airway Examination: normal oropharyngeal airway and neck mobility. Respiratory Examination: clear to auscultation. CV Examination: normal. Prophylactic Antibiotics: The patient does not require prophylactic antibiotics. Prior Anticoagulants: The patient has taken no anticoagulant or antiplatelet agents except for NSAID medication. ASA Grade Assessment: II - A patient with mild systemic disease. After reviewing the risks and benefits, the patient was deemed in satisfactory condition to undergo the procedure. The anesthesia plan was to use monitored anesthesia care (MAC). Immediately prior to administration of medications, the patient was re-assessed for adequacy to receive sedatives. The heart rate, respiratory rate, oxygen saturations, blood pressure, adequacy of pulmonary ventilation, and response to care were monitored throughout the procedure. The physical status of the patient was re-assessed after the procedure. After obtaining informed consent, the endoscope was passed under direct vision. Throughout the procedure, the patient's blood pressure, pulse, and oxygen saturations were monitored continuously. The Colonoscope was introduced through the mouth, and advanced to the third part of duodenum. The upper GI endoscopy was accomplished with ease. The patient tolerated the procedure well. Scope In: 9:59:44 AM Scope Out: 10:04:52 AM Total Procedure Duration Time 0 hours 5 minutes 8 seconds Findings: Multiple 3 mm polyps with no bleeding were found 20 to 40 cm from the incisors. Biopsies were taken with a cold forceps for histology. Verification of patient identification for the specimen was done. Estimated blood loss was minimal. Multiple 5 mm hyperplastic polyps with no bleeding and no stigmata of recent bleeding were found in the entire examined stomach. Biopsies were taken with a cold forceps for histology. Verification of patient identification for the specimen was done. Estimated blood loss was minimal. Multiple 5 mm hyperplastic polyps with no bleeding were found in the entire duodenum. Biopsies were taken with a cold forceps for histology. Verification of patient identification for the specimen was done. Estimated blood loss was minimal. Impression: - Esophageal polyp(s) were found. Biopsied. - Multiple gastric polyps. Biopsied. - Multiple duodenal polyps. Biopsied. Recommendation: - Discharge patient to home. - Resume previous diet. - Continue present medications. Procedure Code(s): --- Professional --- 22253, Esophagogastroduodenoscopy, flexible, transoral; with biopsy, single or multiple CPT copyright 2021 [employer]. All rights reserved. The codes documented in this report are preliminary and upon dock supervisor review may be revised to meet current compliance requirements. Mata Pastor DO 10/20/2024 10:38:03 AM This report has been signed electronically. Number of Addenda: 0 Note Initiated On: 10/20/2024 9:51 AM 10/20/24 1038 Date _ Mata Wongign Signature: Date (if indicated) CC: MARINE CHRONOMETER ASSEMBLERLakia Pastor DO ~ Date Dictated: 10/20/24 0951 Date Transcribed: Coating Mixer: DEBBY Signed [facility]04-30-2025 Procedure note [facility] Medical Records Department [address] [place] [address] Operative Report - CC Letter MR#: [id number] Acct: [id number] Name: DERRELL HOYT Rep #:[id number] : 1965 59 From: Mata Pastor DO PCP: UNRULY Tamez Status: [facility] 10/20/2024 Radha Barajas Re : Upper GI endoscopy procedure for Derrell Hoyt Dear Karl This procedure was performed on Sunday, October 20, 2024. My impressions and recommendations are as follows: Impressions : - Esophageal polyp(s) were found. Biopsied. - Multiple gastric polyps. Biopsied. - Multiple duodenal polyps. Biopsied. Recommendations : - Discharge patient to home. - Resume previous diet. - Continue present medications. My findings are described in the full procedure note, which is enclosed. If I can be of further assistance, please feel free to contact me at . Sincerely, Mata Pastor DO 10/20/2024 10:38:03 AM This report has been signed electronically. 10/20/24 1038 Date _ Mata Gaytan Signature: Date (if indicated) CC: MARINE CHRONOMETER ASSEMBLER-C Radha Barajas; Mata Pastor DO ~ Date Dictated: 10/20/24 0951 Date Transcribed: Coating Mixer: RF Signed [facility]04-30-2025 Consult note Author Steve Mckenzie [facility] Note Date/Time October 20, 2024 8:0 6am [facility] Medical Records Department [address] [place] [address] Pre-Anesthesia Evaluation 10/20/24 0806 MR#: [id number] Acct: [id number] Name: DERRELL HOYT Rep #:[id number] : 1965 59 From: Steve Mckenzie MD PCP: Radha Barajas, MARINE CHRONOMETER ASSEMBLER-C Status: REG [facility] Y Race: C Location: [place] [address] ASA Classification* ASA Classification ASA Classification: 3 Assessment & Plan Anesthesia* Anesthesia Assessment Anesthesia Assessment: Discussed sedation and/or anesthesia options, risks, benefits, and alternatives with patient/parents/legal guardian/POA. Questions invited. The patient/parents/legal guardian/POA seems to understand and agrees to proceedwith anesthesia plan. Reviewed the physical assessment, medical history, allergy history and patient home medications list prior to surgery/procedure/anesthetic and documented any changes. Performed airway and anesthesia risk assessments. Anesthesia Type Anesthesia Type: MAC Anesthesia Focused Assessment* Temperature: 98.2 F Pulse Rate: 75 Blood Pressure: 118/53 Respiratory Rate: 20 Pulse Ox: 92 Airway Assessment Mouth opens: >3 cm Mallampati Score: II Focused Labs Anesthesia Preop lab: CBC WBC 10.9 K/mm3 (4.4-11.0) 03/31/24 00:20 03/31/24 RBC 4.56 M/mm3 (4.6-6.2) L 03/31/24 00:20 03/31/24 Hgb 11.7 g/dL (13.0-16.5) L 03/31/24 00:20 4 Hct 39.6 % (40-54) L 03/31/24 00:20 03/31/24 Plt Count 157 K/mm3 (150-450) 03/31/24 00:20 03/31/24 CHEMISTRY Potassium 4.6 mmol/L (3.5-5.1) 03/31/24 00:20 03/31/24 Sodium 137 mmol/L (136-145) 03/31/24 00:20 03/31/24 Magnesium 2.0 mg/dL (1.6-2.6) 03/31/24 00:20 03/31/24 Phosphorus 3.0 mg/dL (2.5-4.9) 01/01/24 08:22 01/01/24 BUN 14 mg/dL (7-18) 03/31/24 00:20 03/31/24 Creatinine 0.74 mg/dL (0.70-1.30) 03/31/24 00:20 03/31/24 Glucose 118 mg/dL (74-106) H 03/31/24 00:20 03/31/24 POC Glucose 124 mg/dL (74-106) H 03/30/24 22:27 03/30/24 TSH 1.64 uIU/mL (0.358-3.74) 02/27/21 08:10 COAG PT 14.7 SECONDS (11.7-14.9) 11/18/23 10:30 Pre-Assessment Diagnosis/Proposed Procedure Planned Operative Procedure(s): COLONOSCOPY, EGD Anesthesia History Anesthesia History - systems program manager: Anesthesia History - systems program manager Hx Hospitalization No 10/18/24 11:26 Any Problems With Anesthesia No 10/18/24 11:26 Cholinesterase deficiency No 10/18/24 11:26 You/Your Family Experience No 10/18/24 11:26 fever (hyperthermia) with Relationship Recent Exposure to Contagious No 11/06/23 06:46 Disease Does patient have nerve No 10/18/24 11:26 stimulator Patient instructed to have device shut off --Does patient have Pacemaker No 10/20/24 07:44 or ICD? When Was Last Pacemaker Check QUESTION #4 FULL TEXT: You/Your Family Experience fever (hyperthermia) with Anesthesia Last Oral Intake Last Oral intake: Last Oral Intake NPO since 06:30 10/20/24 07:44 Meds taken in AM with sips of water? Meds patient instructed to take am of surgery PONV PONV - systems program manager: PONV - systems program manager Female No 10/18/24 11:26 HX of Motion Sickness No 10/18/24 11:26 HX of N/V After Surgery No 10/18/24 11:26 Non-Smoker Yes 10/18/24 11:26 Duration of Surgery greater No 10/18/24 11:26 than 60 minutes Number of Risk Factors 1 10/18/24 11:26 PONV Score Low Risk 10/18/24 11:26 Height & Weight Height & Weight: Anesthesia: Height & Weight Height 6 ft 10/20/24 07:44 Weight: 150.9 kg 10/20/24 07:44 Body Mass Index (BMI) 45.1 10/20/24 07:44 Respiratory Assessment Respiratory Assessment - systems program manager: Respiratory Tract Infection Hx - systems program manager Hx Respiratory Tract Infection No 10/18/24 11:26 STOP Sleep Apnea STOP Sleep Apnea - systems program manager: STOP Sleep Apnea - systems program manager Hx Hypertension Yes 10/18/24 11:26 Hx Sleep Apnea Yes: DOESNT WEAR CPAP OR 10/18/24 11:26 BIPAP CPAP No 10/18/24 11:26 BIPAP No 10/18/24 11:26 Do you snore loudly (louder than talking or can be heard Do you often feel tired/ fatigued/ sleepy during daytime? Has anyone observed you stop breathing during sleep? STOP Results Positive 10/18/24 11:26 QUESTION #5 FULL TEXT : Do you snore loudly (louder than talking or can be heard through closed doors)? 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 Specify any problems Hx of Preganancy in last 3 N/A 10/18/24 11:26 Months Nurse Filling Out Transfusion VLEHMAN 10/18/24 11:26 & Questions: Date: 10/18/24 10/18/24 11:26 Time: 11:33 10/18/24 11:26 Patient unable to answer at this time (ie. confused, unrespo /Reproduction History /Reproductive History - systems program manager: /Reproductive Hx- systems program manager Hx Now No 10/18/24 11:26 Gestational Age (in weeks): EDC: Hx Hx Para Hx Section SAB No 10/18/24 11:26 Active Medications Active Medications: Current Medications Generic Name Dose Route Start Last Admin Trade Name Freq PRN Reason Stop Dose Admin Lactated Ringer's 1,000 mls @ 15 mls/hr 10/20/24 07:30 10/20/24 07:52 IV 15 mls/hr .Q48H MARIAMA Administration PFSH Medical History Redness of skin Thyroid disease Insulin dependent diabetes mellitus Anemia Hepatitis High cholesterol Difficulty swallowing History of diverticulitis Chronic cough History of pain when walking History of stress test History of irregular heartbeat Cellulitis Sleep apnea Lives in assisted living facility Wears glasses Wears dentures Depression Low iron Fatty liver Syncope Dietary restriction CPAP (continuous positive airway pressure) dependence Shortness of breath on exertion History of edema History of echocardiogram Cardiology follow-up encounter Tumor Atherosclerosis of coronary artery of [place] heart without angina pectoris Kidney stones COPD (chronic obstructive pulmonary disease) Former smoker Irregular heart beat NSVT (nonsustained ventricular tachycardia) Diabetes Asthma Hypothyroidism Hypertension Home Medications ?Medication ?Instructions ?Recorded ?Last Taken ?Type potassium chloride 20 mEq 20 meq PO DAILYCM SUPPLEMENT 04/23/19 12/30/23 Rx tablet,extended release(part/cryst) metformin 1,000 mg tablet 1,000 mg PO BID DIABETES 12/30/23 History tamsulosin 0.4 mg capsule 0.4 mg PO QHS PROSTATE 02/0512/29/23 History albuterol sulfate 90 mcg/actuation 2 puff inhalation Q 4H PRN 02/11/21 Unknown History aerosol inhaler SHORTNESS OF BREATH/WHEEZING montelukast 10 mg tablet 10 mg PO QHS ALLERGIES 01/1012/29/23 History (Singulair) acetaminophen 650 mg 650 mg PO Q8H PRN PAIN/FEVER 02/04/22 Unknown History tablet,extended release (Tylenol Arthritis Pain) guaifenesin 600 mg tablet, 600 mg PO Q12H PRN CONGESTI ON 02/04/22 11/18/23 History extended release 12 hr (Mucinex) fluticasone propionate 115 2 puff inhalation BID COPD 07/31/22 12/30/23 History mcg-salmeterol 21 mcg/actuation HFA inhaler (Advair HFA) blood sugar diagnostic 11/25/22 Unknown History atorvastatin 80 mg tablet 80 mg PO QHS CHOLESTEROL 12/29/23 History polyethylene glycol 3350 17 17 g PO DAILY PRN Constipa tion 02/12/24 10/19/24 History gram/dose oral powder (Miralax) metoprolol tartrate 25 mg tablet 25 mg PO BID #120 tab s 03/31/24 10/20/24 Rx sotalol 80 mg tablet 120 mg (1.5 x 80 mg) PO BID #120 03/31/24 Unknown Rx tabs levothyroxine 200 mcg tablet 275 mcg PO DAILY THYROID 07/07/24 10/20/24 History trazodone 50 mg tablet 25 mg PO QHS SLEEP 07/07/24 Unknown History furosemide 40 mg tablet 40 mg PO DAILY PRN PRN EDEMA 07/13/24 Unknown History melatonin 10 mg tablet 9 mg PO QHS SLEEP 07/13/24 U nknown History omeprazole 20 mg capsule,delayed 20 mg PO DAILY GERD 0 07/13/24 10/20/24 History release semaglutide 2 mg/dose (8 mg/3 mL) 2 mg subcut .wed FRANDY BETES 07/13/24 10/06/24 History subcutaneous pen injector (Ozempic) aspirin 81 mg capsule 81 mg PO DAILY 09/13/24 Unkn own History insulin glargine 100 unit/mL (3 56 unit subcut QPM Unknown History mL) subcutaneous pen (Lantus Solostar U-100 Insulin) nystatin 100,000 unit/gram topical 1 applic topical 4X /DAY PRN PRN 09/13/24 Unk nown History powder SKIN FOLDS omega-3 fatty acids 2,000 mg PO DAILY 09/13/24 U nknown History senna-docusate sodium tablet 2 tab PO QHS 09/13/24 Unk nown History lisinopril 2.5 mg tablet 2.5 mg PO DAILY 10/20/24 Unk nown History Allergy/AdvReac Type Severity Reaction Status Date / Time No Known Allergies Allergy Verified 10/20/24 07:38 Family History Unknown Colon polyps Surgical History History of cardiac catheterization Hx of colonoscopy History of coronary artery stent placement (01/18/21) History of thyroidectomy Social History household members: other details: Assisted living housing: assisted living facility current occupational status: disabled Smoking Status: Former smoker how long ago did patient quit smokin years ago alcohol intake: never substance use type: does not use caffeine: Yes Type: carbonated beverages Review of Systems (Anesthesia) ROS Narrative System reviewed and no additional complaints, except as documented. 10/20/24 08 <Electronically signed by Steve Mckenzie MD > Date _ Steve Mckenzie MD Cosigner Signature: Date CC: ~ Signed [facility] Work Phone: [phone]) 309-526704-30-2025 History and physical note [facility] Medical Records Department [address] [place] [address] History & Physical Exam 10/20/24 0942 MR#: [id number] Acct: [id number] Name: DERRELL HOYT Rep #:[id number] : 1965 59 From: Mata Friend DO PCP: CHRISTIANO TamezC [place] [facility] [place] Location: [facility]16-1 HPI - General General Date of Admission: 10/20/24 Date of Service: 10/20/24 Chief Complaint: h/o polyps HPI Narrative DERRELL HOYT, is a 59 M who need a colonoscopy LUQ pain - deep pressure applying pressure relieves pain - no change with PO intake or movement - denies any weight loss - denies any HB BOWEL PREP has never been good - no change with eating - Miralax PRN - denies any bleeding BM - daily - does not always fully eliminate - denies any bleeding - weight gain - denies any falls in the past year Colon 11/06/2023 - TA, hyperplastic and inflammatory polyps - Preparation of the colon was poor. - Many 1 to 2 mm polyps in the sigmoid colon, at the hepatic flexure and in the ascending colon, removed with a hot snare. Resected and retrieved. - Multiple 4 mm polyps in the sigmoid colon and in the transverse colon, removed with a jumbo cold forceps. Resected and retrieved. - Stool in the rectum, in the recto-sigmoid colon, in the transverse colon, at the hepatic flexure, in the ascending colon and in the cecum. - Diverticulosis in the recto-sigmoid colon and in the sigmoid colon. Colon 09/17/2022 - TA and inflammatory polyps - Preparation of the colon was fair. - Diverticulosis in the recto-sigmoid colon and in the sigmoid colon. - Five 1 to 2 mm polyps in the sigmoid colon, in the transverse colon and in the ascending colon, removed with a hot snare. Resected and retrieved. - Stool in the rectum, in the recto-sigmoid colon, in the sigmoid colon, in the descending colon, at the splenic flexure and in the cecum. Colon 03/21/2022 - inflammatory polyps, random biopsies melanosis coli - Preparation of the colon was fair. - Multiple 5 mm, non-bleeding polyps in the entire colon. - Three 1 to 2 mm polyps in the rectum, in the sigmoid colon and in the descending colon, removed with a hot snare. Resected and retrieved. - Congested mucosa in the entire examined colon. Biopsied. - Diverticulosis in the recto-sigmoid colon and in the sigmoid colon. [facility] Medical History Redness of skin Thyroid disease Insulin dependent diabetes mellitus Anemia Hepatitis High cholesterol Difficulty swallowing History of diverticulitis Chronic cough History of pain when walking History of stress test History of irregular heartbeat Cellulitis Sleep apnea Lives in assisted living facility Wears glasses Wears dentures Depression Low iron Fatty liver Syncope Dietary restriction CPAP (continuous positive airway pressure) dependence Shortness of breath on exertion History of edema History of echocardiogram Cardiology follow-up encounter Tumor Atherosclerosis of coronary artery of [place] heart without angina pectoris Kidney stones COPD (chronic obstructive pulmonary disease) Former smoker Irregular heart beat NSVT (nonsustained ventricular tachycardia) Diabetes Asthma Hypothyroidism Hypertension Home Medications ?Medication ?Instructions ?Recorded ?Last Taken ?Type potassium chloride 20 mEq 20 meq PO DAILYCM SUPPLEMENT 04/23/19 12/30/23 Rx tablet,extended release(part/cryst) metformin 1,000 mg tablet 1,000 mg PO BID DIABETES 12/30/23 History tamsulosin 0.4 mg capsule 0.4 mg PO QHS PROSTATE 02/0512/29/23 History albuterol sulfate 90 mcg/actuation 2 puff inhalation Q 4H PRN 02/11/21 Unknown History aerosol inhaler SHORTNESS OF BREATH/WHEEZING montelukast 10 mg tablet 10 mg PO QHS ALLERGIES 01/1012/29/23 History (Singulair) acetaminophen 650 mg 650 mg PO Q8H PRN PAIN/FEVER 02/04/22 Unknown History tablet,extended release (Tylenol Arthritis Pain) guaifenesin 600 mg tablet, 600 mg PO Q12H PRN CONGESTI ON 02/04/22 11/18/23 History extended release 12 hr (Mucinex) fluticasone propionate 115 2 puff inhalation BID COPD 07/31/22 12/30/23 History mcg-salmeterol 21 mcg/actuation HFA inhaler (Advair HFA) blood sugar diagnostic 11/25/22 Unknown History atorvastatin 80 mg tablet 80 mg PO QHS CHOLESTEROL 12/29/23 History polyethylene glycol 3350 17 17 g PO DAILY PRN Constipa tion 02/12/24 10/19/24 History gram/dose oral powder (Miralax) metoprolol tartrate 25 mg tablet 25 mg PO BID #120 tab s 03/31/24 10/20/24 Rx sotalol 80 mg tablet 120 mg (1.5 x 80 mg) PO BID #120 03/31/24 Unknown Rx tabs levothyroxine 200 mcg tablet 275 mcg PO DAILY THYROID 07/07/24 10/20/24 History trazodone 50 mg tablet 25 mg PO QHS SLEEP 07/07/24 Unknown History furosemide 40 mg tablet 40 mg PO DAILY PRN PRN EDEMA 07/13/24 Unknown History melatonin 10 mg tablet 9 mg PO QHS SLEEP 07/13/24 U nknown History omeprazole 20 mg capsule,delayed 20 mg PO DAILY GERD 0 07/13/24 10/20/24 History release semaglutide 2 mg/dose (8 mg/3 mL) 2 mg subcut .wed FRANDY BET07/13/24 10/06/24 History subcutaneous pen injector (Ozempic) aspirin 81 mg capsule 81 mg PO DAILY 09/13/24 Unkn own History insulin glargine 100 unit/mL (3 56 unit subcut QPM Unknown History mL) subcutaneous pen (Lantus Solostar U-100 Insulin) nystatin 100,000 unit/gram topical 1 applic topical 4X /DAY PRN PRN 09/13/24 Unknown History powder SKIN FOLDS omega-3 fatty acids 2,000 mg PO DAILY 09/13/24 U nknown History senna-docusate sodium tablet 2 tab PO QHS 09/13/24 Unk nown History lisinopril 2.5 mg tablet 2.5 mg PO DAILY 10/20/24 Unk nown History Allergy/AdvReac Type Severity Reaction Status Date / Time No Known Allergies Allergy Verified 10/20/24 07:38 Family History Unknown Colon polyps Surgical History History of cardiac catheterization Hx of colonoscopy History of coronary artery stent placement (01/18/21) History of thyroidectomy Social History household members: other details: Assisted living housing: assisted living facility current occupational status: disabled Smoking Status: Former smoker how long ago did patient quit smokin years ago alcohol intake: never substance use type: does not use caffeine: Yes Type: carbonated beverages ROS Constitutional Constitutional: Denies fatigue, fever(s), poor appetite, weight gain or weight loss Gastrointestinal Gastrointestinal: Denies belching, bloating, change in bowel habits, change in stool character, chewing difficulty, coffee ground emesis, constipation, cramping, diarrhea, dyspepsia, dysphagia, earlysatiety, excessive flatus, fecalincontinence, heartburn, hematemesis, hematochezia, hemorrhoids, loose stools, melena, nausea, odynophagia, rectal bleeding, tenesmus, vomiting or weight changes Vital Signs Vital Signs Vital Signs: 10/20/24 07:44 10/20/24 07:44 10/20/24 08:06 Temperature 98.2 F 98.2 F Temperature Source Temporal Pulse Rate 75 75 Respiratory Rate 20 H 20 H Respiratory Pattern Normal Blood Pressure 118/53 L 118/53 L Blood Pressure Mean 74 Blood Pressure Source Monitor Blood Pressure Position Semi-Fowlers Blood Pressure Location Left Arm Pulse Ox 92 92 Oxygen Delivery Method Room Air Weight Weight: 332 lb 10.841 oz Body Mass Index (BMI) 45.1 Results Lab / Micro Data Labs: Laboratory Results - last 24 hr 10/20/24 07:37: POC Glucose 79 Assessment & Plan Assessment/Plan (1) LUQ pain: (2) Anemia: (3) Encounter for screening for malignant neoplasm of colon: PLAN: Assessment and Plan Assessment and Plan (1) Personal history of colonic polyps: Status: Acute (2) LUQ pain: Status: Acute (3) Anemia: Status: Acute (4) Loss of appetite: Status: Acute Orders: Orders CBC W/Diff, Automated Today D64.9 - Anemia, unspecified, R10.12 - Left upper quadrant pain, R63.0 -Anorexia, Z86.010 - Personal history of colon polyps Comprehensive Metabolic Profil Today D64.9 - Anemia, unspecified, R10.12 - Leftupper quadrant pain,R63.0 - Anorexia, Z86.010 - Personal history of colon polyps Abdomen Complete Today D64.9 - Anemia, unspecified, R10.12 - Left upper quadrant pain, R63.0 - Anorexia, Z86.010 - Personal history of colon polyps Medications: New peg 3350-electrolytes 236-22.74-6.74 -5.86 gram (Golytely) take as directed for split dose bowel prep until fecal effluent is clear 240 mL PO Q10M 4,000 mL 0RF polyethylene glycol 3350 (Miralax) Take as directed for 2day bowel prep 4 grams PO ONCE 238 grams 0RF colonoscopy polyethylene glycol 3350 (Miralax) Take as directed for 2day bowel prep 17 grams PO ONCE 238 grams 0RF colonoscopy Plan 59y/o male presents for consultation with a personal history of colon polyps andc/o LUQ pain. Colonoscopy was last performed October 2023 and revealed adenomas. Historically, all bowel preps in the past have been poor. He complains of LUQ abdominal pain. Pain is not exacerbated with PO intake or movement. He denies any N/V, but does endorse a loss of appetite. I have scheduled him for an ABD US, bidirectional endoscopies and ordered routine labs. Patient Instructions: Colon & EGD - 2 day bowel prep (1d GoLyte and 1d Miralax) ABD US CBC and CMP 10/20/24 0944 Cosigner Signature (if applicable): CC: MARINE CHRONOMETER ASSEMBLER-C Radha Barajas; Mata Pastor, ~ Signed [facility]04-30-2025 [facility] Medical Records Department [address] [place] [address] History Physical Exam 10/20/24 0942 MR#: [id number] Acct: [id number] Name: DERRELL HOYT Rep #: [id number] : 1965 59 From: Mata Pastor DO PCP: UNRULY Tamez Status:[place] [facility] [place] Location: [place] [address] HPI - General General Date of Admission: 10/20/24 Date of Service: 10/20/24 Chief Complaint: h/o polyps HPI Narrative DERRELL HOYT, is a 59 M who need a colonoscopy LUQ pain - deep pressure applying pressure relieves pain - no change with PO intake or movement - denies any weight loss - denies any HB BOWEL PREP has never been good - no change with eating - Miralax PRN - denies any bleeding BM - daily - does not always fully eliminate - denies any bleeding - weight gain - denies any falls in the past year Colon 11/06/2023 - TA, hyperplastic and inflammatory polyps - Preparation of the colon was poor. - Many 1 to 2 mm polyps in the sigmoid colon, at the hepatic flexure and in the ascending colon, removed with a hot snare. Resected and retrieved. - Multiple 4 mm polyps in the sigmoid colon and in the transverse colon, removed with a jumbo cold forceps. Resected and retrieved. - Stool in the rectum, in the recto-sigmoid colon, in the transverse colon, at the hepatic flexure, in the ascending colon and in the cecum. - Diverticulosis in the recto-sigmoid colon and in the sigmoid colon. Colon 09/17/2022 - TA and inflammatory polyps - Preparation of the colon was fair. - Diverticulosis in the recto-sigmoid colon and in the sigmoid colon. - Five 1 to 2 mm polyps in the sigmoid colon, in the transverse colon and in the ascending colon, removed with a hot snare. Resected and retrieved. - Stool in the rectum, in the recto-sigmoid colon, in the sigmoid colon, in the descending colon, at the splenic flexure and in the cecum. Colon 03/21/2022 - inflammatory polyps, random biopsies melanosis coli - Preparation of the colon was fair. - Multiple 5 mm, non-bleeding polyps in the entire colon. - Three 1 to 2 mm polyps in the rectum, in the sigmoid colon and in the descending colon, removed with a hot snare. Resected and retrieved. - Congested mucosa in the entire examined colon. Biopsied. - Diverticulosis in the recto-sigmoid colon and in the sigmoid colon. [facility] Medical History Redness of skin Thyroid disease Insulin dependent diabetes mellitus Anemia Hepatitis High cholesterol Difficulty swallowing History of diverticulitis Chronic cough History of pain when walking History of stress test History of irregular heartbeat Cellulitis Sleep apnea Lives in assisted living facility Wears glasses Wears dentures Depression Low iron Fatty liver Syncope Dietary restriction CPAP (continuous positive airway pressure) dependence Shortness of breath on exertion History of edema History of echocardiogram Cardiology follow-up encounter Tumor Atherosclerosis of coronary artery of [place] heart without angina pectoris Kidney stones COPD (chronic obstructive pulmonary disease) Former smoker Irregular heart beat NSVT (nonsustained ventricular tachycardia) Diabetes Asthma Hypothyroidism Hypertension Home Medications ???Medication ???Instructions ???Recorded ???Last Taken ???Type potassium chloride 20 mEq 20 meq PO DAILYCM SUPPLEMENT 04/2312/30/23 Rx tablet,extended release(part/cryst) metformin 1,000 mg tablet 1,000 mg PO BID DIABETES 01/18/21 12/30/23 History tamsulosin 0.4 mg capsule 0.4 mg PO QHS PROSTATE 02/05/21 History albuterol sulfate 90 mcg/actuation 2 puff inhalation Q4H PRN Unknown History aerosol inhaler SHORTNESS OF BREATH/WHEEZING montelukast 10 mg tablet 10 mg PO QHS ALLERGIES 01/10/22 History (Singulair) acetaminophen 650 mg 650 mg PO Q8H PRN PAIN/FEVER 02/04 Unknown History tablet,extended release (Tylenol Arthritis Pain) guaifenesin 600 mg tablet, 600 mg PO Q12H PRN CONGESTION 01/2111/18/23 History extended release 12 hr (Mucinex) fluticasone propionate 115 2 puff inhalation BID COPD 3 12/30/23 History mcg-salmeterol 21 mcg/actuation HFA inhaler (Advair HFA) blood sugar diagnostic 11/25/22 Unknown History atorvastatin 80 mg tablet 80 mg PO QHS CHOLESTEROL 11/18/23 12/29/23 History polyethylene glycol 3350 17 17 g PO DAILY PRN Constipation 10/19/24 History gram/dose oral powder (Miralax) metoprolol tartrate 25 mg tablet 25 mg PO BID #120 tabs 03/31/24 Rx sotalol 80 mg tablet 120 mg (1.5 x 80 mg) PO BID #120 1 Unknown Rx tabs levothyroxine 200 mcg tablet 275 mcg PO DAILY THYROID 07/07/24 10/20/24 History t (more content not included)...[facility]04-30-2025 Telephone encounter Note* Telephone Encounter - Barbara Arroyo LPN - 10/20/2024 9:21 AM EDT Called patient. No answer- left message to call clinic. Patient has appointment in October to see urology for Increased Urination & Dysuria. No referral insystem. Has patient been seen elsewhere for urological issues and if so where? We like to request records for appointment. Barbara Arroyo LPN [facility]04-30-2025 Evaluation note* Diagnosis Onset Date Resolution Status Admit Date Anemia acute October 20 7:06am Encounter for screening for malignant neoplasm of colon acute Apri l 2024 7:06am LUQ pain acute October 20 7:06am Elevated alkaline phosphatas e level acute November 11, 2024 2 :52pm LUQ pain acute November 11, 2024 2:52pm HLD (hyperlipidemia) acute November 19, 2024 10:35am S/P PTCA (percutaneous transluminal coronary angioplasty) acute November 19, 2024 1 0:35am [facility] Work Phone: 1([phone]) 876-465104-30-2025 Consult note [facility] Medical Records Department [address] [place] [address] Pre-Anesthesia Evaluation 10/20/24 0806 MR#: [id number] Acct: [id number] Name: DERRELL HOYT Rep #:[id number] : 1965 59 From: Steve Mckenzie MD PCP: Radha Barajas, MARINE CHRONOMETER ASSEMBLER-C Status: REG [facility] Race: C Location: [place] [address] ASA Classification* ASA Classification ASA Classification: 3 Assessment & Plan Anesthesia* Anesthesia Assessment Anesthesia Assessment: Discussed sedation and/or anesthesia options, risks, benefits, and alternatives with patient/parents/legal guardian/POA. Questions invited. The patient/parents/legal guardian/POA seems to understand and agrees to proceedwith anesthesia plan. Reviewed the physical assessment, medical history, allergy history and patient home medications list prior to surgery/procedure/anesthetic and documented any changes. Performed airway and anesthesia risk assessments. Anesthesia Type Anesthesia Type: MAC Anesthesia Focused Assessment* Temperature: 98.2 F Pulse Rate: 75 Blood Pressure: 118/53 Respiratory Rate: 20 Pulse Ox: 92 Airway Assessment Mouth opens: >3 cm Mallampati Score: II Focused Labs Anesthesia Preop lab: CBC WBC 10.9 K/mm3 (4.4-11.0) 03/31/24 00:20 03/31/24 RBC 4.56 M/mm3 (4.6-6.2) L 03/31/24 00:20 03/31/24 Hgb 11.7 g/dL (13.0-16.5) L 03/31/24 00:20 4 Hct 39.6 % (40-54) L 03/31/24 00:20 03/31/24 Plt Count 157 K/mm3 (150-450) 03/31/24 00:20 03/31/24 CHEMISTRY Potassium 4.6 mmol/L (3.5-5.1) 03/31/24 00:20 03/31/24 Sodium 137 mmol/L (136-145) 03/31/24 00:20 03/31/24 Magnesium 2.0 mg/dL (1.6-2.6) 03/31/24 00:20 03/31/24 Phosphorus 3.0 mg/dL (2.5-4.9) 01/01/24 08:22 01/01/24 BUN 14 mg/dL (7-18) 03/31/24 00:20 03/31/24 Creatinine 0.74 mg/dL (0.70-1.30) 03/31/24 00:20 03/31/24 Glucose 118 mg/dL (74-106) H 03/31/24 00:20 03/31/24 POC Glucose 124 mg/dL (74-106) H 03/30/24 22:27 03/30/24 TSH 1.64 uIU/mL (0.358-3.74) 02/27/21 08:10 COAG PT 14.7 SECONDS (11.7-14.9) 11/18/23 10:30 Pre-Assessment Diagnosis/Proposed Procedure Planned Operative Procedure(s): COLONOSCOPY, EGD Anesthesia History Anesthesia History - systems program manager: Anesthesia History - systems program manager Hx Hospitalization No 10/18/24 11:26 Any Problems With Anesthesia No 10/18/24 11:26 Cholinesterase deficiency No 10/18/24 11:26 You/Your Family Experience No 10/18/24 11:26 fever (hyperthermia) with Relationship Recent Exposure to Contagious No 11/06/23 06:46 Disease Does patient have nerve No 10/18/24 11:26 stimulator Patient instructed to have device shut off --Does patient have Pacemaker No 10/20/24 07:44 or ICD? When Was Last Pacemaker Check QUESTION #4 FULL TEXT: You/Your Family Experience fever (hyperthermia) with Anesthesia Last Oral Intake Last Oral intake: Last Oral Intake NPO since 06:30 10/20/24 07:44 Meds taken in AM with sips of water? Meds patient instructed to take am of surgery PONV PONV - systems program manager: PONV - systems program manager Female No 10/18/24 11:26 HX of Motion Sickness No 10/18/24 11:26 HX of N/V After Surgery No 10/18/24 11:26 Non-Smoker Yes 10/18/24 11:26 Duration of Surgery greater No 10/18/24 11:26 than 60 minutes Number of Risk Factors 1 10/18/24 11:26 PONV Score Low Risk 10/18/24 11:26 Height & Weight Height & Weight: Anesthesia: Height & Weight Height 6 ft 10/20/24 07:44 Weight: 150.9 kg 10/20/24 07:44 Body Mass Index (BMI) 45.1 10/20/24 07:44 Respiratory Assessment Respiratory Assessment - systems program manager: Respiratory Tract Infection Hx - systems program manager Hx Respiratory Tract Infection No 10/18/24 11:26 STOP Sleep Apnea STOP Sleep Apnea - systems program manager: STOP Sleep Apnea - systems program manager Hx Hypertension Yes 10/18/24 11:26 Hx Sleep Apnea Yes: DOESNT WEAR CPAP OR 10/18/24 11:26 BIPAP CPAP No 10/18/24 11:26 BIPAP No 10/18/24 11:26 Do you snore loudly (louder than talking or can be heard Do you often feel tired/ fatigued/ sleepy during daytime? Has anyone observed you stop breathing during sleep? STOP Results Positive 10/18/24 11:26 QUESTION #5 FULL TEXT : Do you snore loudly (louder than talking or can be heard through closeddoors)? 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 Specify any problems Hx of Preganancy in last 3 N/A 10/18/24 11:26 Months Nurse Filling Out Transfusion [facility] 10/18/24 11:26 & Questions: Date: 10/18/24 10/18/24 11:26 Time: 11:33 10/18/24 11:26 Patient unable to answer at this time (ie. confused, unrespo /Reproduction History /Reproductive History - systems program manager: /Reproductive Hx- systems program manager Hx Now No 10/18/24 11:26 Gestational Age (in weeks): EDC: Hx Hx Para Hx Section SAB No 10/18/24 11:26 Active Medications Active Medications: Current Medications Generic Name Dose Route Start Last Admin Trade Name Freq PRN Reason Stop Dose Admin Lactated Ringer's 1,000 mls @ 15 mls/hr 10/20/24 07:30 10/20/24 07:52 IV 15 mls/hr .Q48H MARIAMA Administration PFSH Medical History Redness of skin Thyroid disease Insulin dependent diabetes mellitus Anemia Hepatitis High cholesterol Difficulty swallowing History of diverticulitis Chronic cough History of pain when walking History of stress test History of irregular heartbeat Cellulitis Sleep apnea Lives in assisted living facility Wears glasses Wears dentures Depression Low iron Fatty liver Syncope Dietary restriction CPAP (continuous positive airway pressure) dependence Shortness of breath on exertion History of edema History of echocardiogram Cardiology follow-up encounter Tumor Atherosclerosis of coronary artery of [place] heart without angina pectoris Kidney stones COPD (chronic obstructive pulmonary disease) Former smoker Irregular heart beat NSVT (nonsustained ventricular tachycardia) Diabetes Asthma Hypothyroidism Hypertension Home Medications ?Medication ?Instructions ?Recorded ?Last Taken ?Type potassium chloride 20 mEq 20 meq PO DAILYCM SUPPLEMENT 04/23/19 12/30/23 Rx tablet,extended release(part/cryst) metformin 1,000 mg tablet 1,000 mg PO BID DIABETES 12/30/23 History tamsulosin 0.4 mg capsule 0.4 mg PO QHS PROSTATE 02/0512/29/23 History albuterol sulfate 90 mcg/actuation 2 puff inhalation Q 4H PRN 02/11/21 Unknown History aerosol inhaler SHORTNESS OF BREATH/WHEEZING montelukast 10 mg tablet 10 mg PO QHS ALLERGIES 01/1012/29/23 History (Singulair) acetaminophen 650 mg 650 mg PO Q8H PRN PAIN/FEVER 02/04/22 Unknown History tablet,extended release (Tylenol Arthritis Pain) guaifenesin 600 mg tablet, 600 mg PO Q12H PRN CONGESTI ON 02/04/22 11/18/23 History extended release 12 hr (Mucinex) fluticasone propionate 115 2 puff inhalation BID COPD 07/31/22 12/30/23 History mcg-salmeterol 21 mcg/actuation HFA inhaler (Advair HFA) blood sugar diagnostic 11/25/22 Unknown History atorvastatin 80 mg tablet 80 mg PO QHS CHOLESTEROL 12/29/23 History polyethylene glycol 3350 17 17 g PO DAILY PRN Constipa tion 02/12/24 10/19/24 History gram/dose oral powder (Miralax) metoprolol tartrate 25 mg tablet 25 mg PO BID #120 tab s 03/31/24 10/20/24 Rx sotalol 80 mg tablet 120 mg (1.5 x 80 mg) PO BID #120 03/31/24 Unknown Rx tabs levothyroxine 200 mcg tablet 275 mcg PO DAILY THYROID 07/07/24 10/20/24 History trazodone 50 mg tablet 25 mg PO QHS SLEEP 07/07/24 Unknown History furosemide 40 mg tablet 40 mg PO DAILY PRN PRN EDEMA 07/13/24 Unknown History melatonin 10 mg tablet 9 mg PO QHS SLEEP 07/13/24 U nknown History omeprazole 20 mg capsule,delayed 20 mg PO DAILY GERD 0 07/13/24 10/20/24 History release semaglutide 2 mg/dose (8 mg/3 mL) 2 mg subcut .wed FRANDY BETES 07/13/24 10/06/24 History subcutaneous pen injector (Ozempic) aspirin 81 mg capsule 81 mg PO DAILY 09/13/24 Unkn own History insulin glargine 100 unit/mL (3 56 unit subcut QPM Unknown History mL) subcutaneous pen (Lantus Solostar U-100 Insulin) nystatin 100,000 unit/gram topical 1 applic topical 4X /DAY PRN PRN 09/13/24 Unk nown History powder SKIN FOLDS omega-3 fatty acids 2,000 mg PO DAILY 09/13/24 U nknown History senna-docusate sodium tablet 2 tab PO QHS 09/13/24 Unk nown History lisinopril 2.5 mg tablet 2.5 mg PO DAILY 10/20/24 Unk nown History Allergy/AdvReac Type Severity Reaction Status Date / Time No Known Allergies Allergy Verified 10/20/24 07:38 Family History Unknown Colon polyps Surgical History History of cardiac catheterization Hx of colonoscopy History of coronary artery stent placement (01/18/21) History of thyroidectomy Social History household members: other details: Assisted living housing: assisted living facility current occupational status: disabled Smoking Status: Former smoker how long ago did patient quit smokin years ago alcohol intake: never substance use type: does not use caffeine: Yes Type: carbonated beverages Review of Systems (Anesthesia) ROS Narrative System reviewed and no additional complaints, except as documented. 10/20/24 0806 > Date _ Steve Mckenzie MD Cosigner Signature: Date CC: ~ Signed [facility]01-21-2025 Evaluation note* Diagnosis Onset Date Resolution Status Admit Date Anemia acute July 13, 2024 2:05pm Loss of appetite acute July 13, 2024 2:05pm LUQ pain acute July 13, 2024 2:05pm Personal history of colonic polyps acute July 13 2:05pm Anemia acute October 20 7:06am Encounter for screening for malignant neoplasm of colon acute Apri l 2024 7:06am LUQ pain acute October 20 7:06am [facility] Work Phone: 1(109) 174-324001-02-2025 Consult note [facility] Date/Time October 20, 2024 10: 46am [facility] Medical Records Department [address] [place] [address] Anesthesia Postop Eval I 10/20/24 1045 MR#: [id number] Acct: [id number] Name: DERRELL HOYT Rep #:[id number] : 1965 59 From: Diego Tejeda PCP: CHRISTIANO TamezC Status: REG SDC Y Race: C Location: [place] [address] Anesthesia: Postop Eval I Current Vital Signs Temperature: 98.2 F Pulse Rate: 76 Blood Pressure: 85/42 Respiratory Rate: 16 Pulse Ox: 93 Oxygen Delivery Method: Room Air Assessment Airway patent: Yes Spontaneous unlabored respirations: Yes Mental status: Awake and Calm nausea: No Vomiting: No Anesthesia Complication: No Fluid Hydration Crystalloid volume administer (ml): 400 Total IV fluid infused: 400 Progress Note Anesthesia document: Postop Eval 1 completed: Yes 10/20/24 1046 <Electronically signed by Diego Tejeda > Date _ Diego Pulido Signature: Date CC: ~ Signed [facility] Work Phone: 1(259) 656-365707-11-2024 [facility] Medical Records Department [address] [place] [address] Discharge Summary 01/01/24 1243 MR#: [id number] Acct: [id number] Name: DERRELL HOYT Rep #: [id number] : 1965 58 From: Chandu Pierson DO PCP: UNRULY Tamez Status:DIS IN Location: [place] [address] Providers Date of Admission: 12/30/23 Date of Discharge: 01/01/24 Primary Care Physician: UNRULY Tamez Reason For Visit: CELLULITIS Diagnosis Discharge Diagnosis (1) Cellulitis: Status: Acute Code(s): L03.90 - Cellulitis, unspecified Plan 1. Left lower leg cellulitis #2 coronary artery disease #3 type 2 diabetes #4 morbid obesity #5 essential hypertension #6 lactic acidosis-etiology unclear, not related to sepsis Medications at Discharge Home Medications potassium chloride 20 mEq tablet,extended release(part/cryst) 20 meq PO DAILYCM SUPPLEMENT 04/23/19 metformin 1,000 mg tablet 1,000 mg PO BID DIABETES 01/18/21 sennosides 8.6 mg-docusate sodium 50 mg tablet (Senna Plus) 2 tab PO QPM CONSTIPATION 02/05/21 sotalol 120 mg tablet 120 mg PO Q12H HEART ARRHYTHMIA 02/05/21 tamsulosin 0.4 mg capsule 0.4 mg PO QHS PROSTATE 02/05/21 albuterol sulfate 90 mcg/actuation aerosol inhaler 2 puff inhalation Q4H PRN SHORTNESS OF BREATH/WHEEZING 02/11/21 duloxetine 60 mg capsule,delayed release 60 mg PO BID DEPRESSION 05/22/21 montelukast 10 mg tablet (Singulair) 10 mg PO QHS ALLERGIES 01/10/22 acetaminophen 650 mg tablet,extended release (Tylenol Arthritis Pain) 650 mg PO Q8H PRN PAIN/FEVER 02/04/22 aluminum-mag hydroxide-simethicone 400 mg-400 mg-40 mg/5 mL oral susp (Mylanta Maximum Strength) 30 ml PO TID PRN INDIGESTION 02/04/22 guaifenesin 600 mg tablet, extended release 12 hr (Mucinex) 600 mg PO Q12H PRN CONGESTION 02/04/22 fluticasone propionate 115 mcg-salmeterol 21 mcg/actuation HFA inhaler (Advair HFA) 2 puff inhalation BID COPD 07/31/22 melatonin 10 mg tablet 10 mg PO QHS SLEEP 07/31/22 artifi.tears(hypromellose)(PF) 1.7 % eye drops with applicator 1 drp ophthalmic (eye) Q6H PRN DRY EYES 11/25/22 blood sugar diagnostic 11/25/22 sodium chloride 0.65 % nasal spray aerosol (Deep Sea Nasal) 2 spray intranasal Q4H PRN DRY NARES 11/25/22 omeprazole 20 mg capsule,delayed release 20 mg PO DAILY GERD 10/22/23 semaglutide 2 mg/dose (8 mg/3 mL) subcutaneous pen injector (Ozempic) 2 mg subcut TH DIABETES 10/22/23 trazodone 50 mg tablet 25 mg PO QHS SLEEP 11/05/23 atorvastatin 80 mg tablet 80 mg PO QHS CHOLESTEROL 11/18/23 insulin glargine 100 unit/mL (3 mL) subcutaneous pen (Lantus Solostar U-100 Insulin) 38 unit subcut QHS DIABETES 11/18/23 levothyroxine 200 mcg tablet 200 mcg PO DAILY THYROID 11/18/23 lisinopril 2.5 mg tablet 2.5 mg PO DAILY BLOOD PRESSURE 11/18/23 furosemide 40 mg tablet 40 mg PO BID EDEMA 12/30/23 metoprolol tartrate 25 mg tablet 12.5 mg PO BID BLOOD PRESSURE 12/30/23 mineral oil-hydrophil petrolat topical ointment (AmeriPhor topical ointment) 1 applic topical QHS DRY SKIN 12/30/23 nystatin 100,000 unit/gram topical powder 1 applic topical TID PRN REDNESS/RASH 12/30/23 ciprofloxacin HCl 500 mg tablet (Cipro) 500 mg PO BID #10 tabs 01/01/24 Hospital Course Operations None Procedures None Summary of Care Provided Minutes Spent on Discharge: 32 Hospital Course: This 58-year-old white male was seen in the emergency room at [facility] with concerns regarding a possible cellulitis of his legs. He noted 2 to 3 weeks of increased redness and drainage from the left lower extremity along with redness of the right lower extremity. Workup in the emergency room included a CBC which was abnormal for a white blood cell count of 11.1 and hemoglobin of 11.5. Chemistry profile was remarkable for glucose of 253, patient's lactic acid was elevated at 2.5. Patient had evidence of stasis dermatitis of both lower extremities and there was an open area on the patient's left lower leg. Patient was admitted to [place] [address], he was placed on IV antibiotics, cultures grew out Morganella, strep group C, and Proteus mirabilis. He was seen in consultation by the wound care nurse. On 01/01/2024, patient was seen and examined: On examination he appeared in good health and spirits. Patient was morbidly obese. Vital signs as documented. Skin warm and dry and without overt rashes. Neck without JVD, neck was supple, trachea midline, thyroid was normal. Lungs clear bilaterally, normal air movement was noted. Heart exam notable for regular rhythm, normal sounds and absence of murmurs, rubs or gallops. Abdomen unremarkable and without evidence of organomegaly, masses, or abdominal aortic enlargement. Bowel sounds are present, abdomen is not distended. Extremities there is noted to be generalized edema of both lower extremities, stasis dermatitis changes were noted over the patient's lower (more content not included)...[facility]06-05-2024 Telephone encounter Note* Telephone Encounter - Yris Lyn MA - 11/26/2023 3:38 PM EDT Left voicemail for patient to return call in regards to Providers message. Follow up appointment for patient already made. I am going to see if the patient wants to have the monitor mailed to him or if he wants to come in the office to have it put on. [facility]06-05-2024 Miscellaneous Notes* Telephone Encounter - Yris Lyn MA - 11/26/2023 3:38 PM EDT Left voicemail for patient to return call in regards to Providers message. Follow up appointment for patient already made. I am going to see if the patient wants to have the monitor mailed to him or if he wants to come in the office to have it put on. * Telephone Encounter - Bob Du APRN.CNP - 11/26/2023 3:09 PM EDT Patient seen by Dr. Arroyo at [facility] for RVOT [place]. He was sent home on Lopressor 100mg twice daily. Patient needs a 30-day event monitor then Hospital follow-up in 8 weeks. documented in [facility] Telephone encounter Note * Telephone Encounter - Bob Du APRN.CNP - 11/26/2023 3:09 PM EDT Patient seen by Dr. Arroyo at [facility] for RVOT [place]. He was sent home on Lopressor 100mg twice daily. Patient needs a 30-day event monitor then Hospital follow-up in 8 weeks. [facility] Work Phone: 1(724) 994-117506-01-2024 NoteHNO ID: [id number] Author: CHIDI FRENCH RN Service: Care Management Author Type: Registered Nurse Type: Care Mgt Progress Note Filed: 11/22/2023 14:07 Note Text: CARE MANAGEMENT DISCHARGE NOTE SERVICE DATE: November 22, 2023 SERVICE TIME: 1:48 PM Admission Date: 11/18/2023 LOS: 4 days Discharge Arrangement Services Arranged Provider Name: Phone: Caregiver Assessment Transportation Arrangements Handoff Communication: Additional Information: patient to d/c back to [facility] today. [facility] to setup transport at d/c, transport setup for 5:30pm today. Transport form completed. 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 Pt is from [facility] and can d/c back when medically cleared. Transport referral and forms saved in [facility]. data center project manager, Steffen, from [facility] called asking when patient is discharged that AVS/discharge summary is sent to them at [phone] SIGNATURE: ROSALIO Núñez PATIENT NAME: Derrell Hoyt DATE: November 21, 2023 TIME: 2:49 PM PAGER/CONTACT #: [phone] [facility]05-31-2024 NoteHNO ID: [id number] Author: CHIDI ARROYO MD Service: Cardiovascular Medicine [...] 12.67* PLT 179 173 193 Recent Labs 11/18/232212 INR 1.1 PTSEC 11.7 [...] HDL Cholesterol, Nonfasting 24 11/20/2023 LDL Chol, [place] 38 11/20/2023 Hemoglobin A1C 8.5 01/20/2021 TSH [...] within normal limits. ECHO: TRANSTHORACIC ECHOCARDIOGRAM AT [facility] NOVEMBER 19, 2023: CONCLUSIONS: - Technically difficult [...] on 01/19/2021 SS TEST: STRESS TEST AT [facility] NOVEMBER 20, 2023: CONCLUSIONS: 1. SPECT Perfusion Study: Abnormal. 2. No evidence of scarred myocardium. 3. There is mild (<10%) (more content not included)...[facility] 11-20-2023 NoteHNO ID: [id number] Author: AIXA PAEZ DO Service: Hospital Medicine [...] since notably also on trazodone, Planning for [facility] tomorrow, monitoring tolerance on uptitrated dose [...] up in 4-[address] [facility] for further determination by Cardiology, Medication and Non-Pharmacologic VTE Prophylaxis/Anticoagulants Anticoagulant AND Antiplatelet Medications (From admission, onward) St (more content not included)...[facility]05-30-2024 NoteHNO ID: [id number] Author: CHIDI ARROYO MD Service: Cardiovascular Medicine [...] HDL Cholesterol, Nonfasting 24 11/20/2023 LDL Chol, [place] 38 11/20/2023 Hemoglobin A1C 8.5 01/20/2021 TSH 10.919 11/18/2023 Uric Acid 6.6 11/20/2023 TELEMETRIC MONITORING: No events recorded overnight or today. Unfortunately events were erased we believe this morning. Per nursing patient did not have any ventricular ectopy overnight. He is currently in normal sinus rhythm. EKG: Normal sinus rhythm at 85 bpm. ECHO: TRANSTHORACIC ECHOCARDIOGRAM AT [facility] NOVEMBER 19, 2023: CONCLUSIONS: - Technically difficult [...] on 01/19/2021 SS TEST: STRESS TEST AT [facility] NOVEMBER 20, 2023: CONCLUSIONS: 1. SPECT Perfusion [...] 75 T CATH: No prior records in [facility]. Assessment/Plan Patient Active Hospital Problem List: 1. Right ventric (more content not included)...[facility]05-30-[facility]24 NoteHNO ID: [id number] Author: HONORIO MATHEWS RT(R) Service: ? Author [...] PATIENT PRESENTS WITH AN IMPLANTABLE OR ATTACHED FIREBRICK AND REFRACTORY TILE REPAIRER: No CREATININE: Creatinine Date Value Ref Range [...] documentation PROCEDURE TYPE: NM Stress: 16.9 mCi [id number] was administered IV for Rest Imaging at 0810 by [facility]. 53.8 mCi [id number]-Pyghdye was administered IV for Stress Imaging at 0930 by [facility]. ADMINISTRATION TIME: 09:30 PATIENT DISCHARGED TO: Patient taken to IP transport area for return to RNF/ICU/ED. A Diagnostic radioactive procedure has taken place, with no further precautions necessary other than routine body substance precautions. More information regarding radiation safety can be found using this link: [email or web address] SIGNATURE: RT Aracely(R) PATIENT NAME: Derrell Hoyt DATE: November 20, 2023 TIME: 9:31 AM PAGER/CONTACT #:[facility]05-29-2024 NoteHNO ID: [id number] Author: AIXA PAEZ DO Service: Hospital Medicine [...] test and has in (more content not included)...[facility]05-29-2024 NoteHNO ID: [id number] Author: EDGAR STEVENSON LSW Service: Care Management Author Type: In Home Baby Sitter Type: Care Mgt Initial Assessment Filed: 11/19/2023 16:12 Note Text: CARE MANAGEMENT: ASSESSMENT AND DISCHARGE PLAN SERVICE DATE: November 19, 2023 SERVICE TIME: 11:05AM PCP: Reinaldo Paez MD Primary Contact: Extended Emergency Contact Information Primary Emergency Contact: Nikunj Hoyt Relation: Daughter Secondary Emergency Contact: [facility] Relation: Other Admission Status: Inpatient Insurance Provider: DANIELE HEALYTASHI MEDICARE Discharge Planning requested by: Per Department Practice Potential Transition Plans No Services Indicated Advance Directives Current Advance Directive: None Fare Enforcement Officer Attempted to Assist with AD Completion: Yes Action: Education Provided;Patient Unwilling Current Living Arrangements and Support Lives with: Type of Residence: Assisted Living Facility Does the patient have to climb stairs at home?: No Care Facility Name: [facility] Support: data center project manager/social media campaign manager, Home care staff How do you manage to accomplish the following: Independent: Ambulation;Bathe/Shower;Dress;Going to the bathroom Needs Assistance: Medication Management Dependent: Meals/Meal Prep;Transportation to appointments/community Current Services/Equipment Current Post-Acute Service(s): None Discharge Planning Patient Goal(s): Increase strength, General wellness [place] of Choice Explained: pt wants to return [...] transportation financial coverage discussed with family?: Patient Roll Edge Stitcher Hand Location: [facility] Destination: [facility] Financial Care Management Responsibility: None Needs Prior to Discharge: Needs Prior to Discharge: To Be Determined;Discharge Prescriptions Post-Acute Discharge Plan: Chart reviewed. patient is a 58-year-old male who resides in an assisted living facility. Reportedly became lightheaded yesterday and nursing supposedly checked on him and noted him to have a low heart rate. [facility] requested transfer to [facility] for evaluation by electrophysiology -pt with several episodes of NSVT, cards consulted -pt with h/o COPD, CHF, DM2, morbid obesity, hypertension Patient lives at [facility] in [place] and pt desires to return there. Pt [...] transportation set up. Initiated referral saved in [facility]. CM to follow for dc back to [place] SIGNATURE: ROSALIO Núñez PATIENT NAME: Derrell Hoyt DATE: November 19, 2023 TIME: 2:05 PM CONTACT #: [id number] [place], [place] [address]1505-01-2024 History of Present illness Narrative* Honorio Mathews RT(R) - 11/20/2023 9:31 AM EDT RADIOLOGY SERVICE PROGRESS NOTE SERVICE DATE: 11/20/2023 SERVICE TIME: 9:31 AM PATIENT IDENTITY VERIFICATION COMPLETED USING TWO (2) STANDARD IDENTIFIERS: Name and Date of confirmed by patient verbally FALL SCREENING: Has the patient had 2 falls in the last year or 1 fall with injury or currently using an Ambulatory Assistive Device (Walker, Cane, Wheelchair, Crutches, etc.)? Inpatient: [facility] PATIENT GENDER DATA: .male ALLERGIES: Reviewed and unchanged MEDICATIONS REVIEWED: Not applicable PATIENT RELEVANT IMPLANT DATA REVIEWED: Not Applicable PATIENT PRESENTS WITH AN IMPLANTABLE OR ATTACHED FIREBRICK AND REFRACTORY TILE REPAIRER: No CREATININE: Creatinine Date Value Ref Range [...] creatinine assay has traceable calibration to isotope dilution- mass spectrometry. Refer to KDIGO guidelines for clinical interpretation. In patients with unstable renal function, e.g. those with acute kidney injury, the eGFRmay not accurately reflect actual GFR. eGFR- Date Value Ref Range Status 01/24/2021 >60 Final P.O.C.T. RESULTS: N/A November 20, [address] PERFORMED: No IV SITE: Inpatient - refer to LDA documentation POST EXAM PIV STATUS: Inpatient see LDA documentation PROCEDURE TYPE: NM Stress: 16.9 mCi [id number] was administered IV for Rest Imaging at 0810 by TM. 53.8 mCi [id number] was administered IV for Stress Imaging at 0930 by TM. ADMINISTRATION TIME: 09:30 PATIENT DISCHARGED TO: Patient taken to IP transport area for return to RNF/ICU/ED. A Diagnostic radioactive procedure has taken place, with no further precautions necessary other than routine body substance precautions. More information regarding radiation safety can be found usingthis link: [email or web address] 20Diagnostic%20Nuclear%20Medicine%[email or web address] SIGNATURE: KAYY Jessica) PATIENT NAME: Derrell Hoyt DATE: November 20, 2023 TIME: 9:31 AM PAGER/CONTACT #: documented in this encounterAcmc [facility] System08-11-2021 NoteHNO ID: [id number] Author: Kaleb Duckworth APRN.CASING SEWER Service: ? Author Type: Nurse Specialist Type: [...] on 02/27/2021 at 9:45 AM. Kaleb Duckworth APRN.[facility]08-04-2021 NoteHNO ID: [id number] Author: Sasha Koehler RN Service: Nursing Author Type: Registered Nurse Type: Progress Notes Filed: 01/24/2021 5:56 PM Note Text: Nurse to Nurse report given to CHIRAG Mirza, at [facility], and provided with patient's pickup up ETA today at 1999. RNXuan expressed concerns about patient managing his own health at the assisted living and wanted to have the D/C orders postpone until tomorrow, with the hope of having the patient admitted to the skill/long-term section of [facility]. This nurse spoke with attending, Dr. Broussard, by which it was stated the patient was cleared to go back to the [facility] with the new medical regimen by the Electro Physiology. At the [facility] patient will not have his new medication available until tomorrow, and this nurse assure to CHIRAG Mirza the patient will have tonight Med prior leaving facility. Per CHIRAG Mirza, she need it the D/C paper be fax to her BANG to [phone]. The discharge paper and MAR were successfully faxed , a copy of the confirmation is in patient's chart.[facility]08-04-2021 NoteHNO ID: [id number] Author: Serenity Virgen RN Service: Care Management Author Type: Registered Nurse Type: Care Mgt Progress Note Filed: 01/24/2021 4:16 PM Note Text: CARE MANAGEMENT DISCHARGE NOTE SERVICE DATE: 01/24/2021 SERVICE TIME: 4:14 PM LOS: 4 days Admission Date: 01/20/2021 DISCHARGE ARRANGEMENT (list agency and phone number) Discharge Arrangement: Assisted living Provider Name: [facility] CAREGIVER ASSESSMENT: HANDOFF COMMUNICATION: Handoff to: Primary Care Physician Primary Care Physician Name/Phone: Dr. Reinaldo Paez [phone] TRANSPORTATION ARRANGEMENTS: Transportation Arrangements: Ambulance/[facility] Transportation Agency and Phone #:: [facility] ( [facility] ) [phone] / [phone] Date of Trip: 01/24/21 Time of Trip: 1999 Type of Service: Wheelchair Is Patient Medicaid Pending?: No Discussion of financial coverage occurred with: Patient Roll Edge Stitcher Hand Location: [facility]: [facility] Financial Care Management Responsibility: None ADDITIONAL CONTACT RESOURCES: none Patient has been discharged and will return to [facility]. [facility] is transporting patient via at 20:00. Patient notified who will contact his dtrJessica Calvin. RN aware of discharge time. SIGNATURE: Serenity Virgen RN PATIENT NAME: Derrell Hoyt DATE: January 24, 2021 TIME: 4:14 PM [facility]AGER[facility]CONTACT #: [phone]21 NoteHNO ID: [id number] Author: Jose Carlos Dean [facility] Service: Pharmacy Author Type: Pharmacist Type: Plan [...] knowledge of prescribed medication prior to discharge. Luh Huff, [facility] January 24, 2021 3:46 PM Medication List [...] Your Medications These medications were sent to [facility] [address] [place] [address] - [phone] [place] [address] ? aspirin, enteric coated 81 mg EC tablet ? atorvastatin 80 mg tablet ? ticagrelor 90 mg tablet ? TRULICITY 4.5 mg/0.5 mL pen [facility]Over[facility]08-04-2021 NoteHNO ID: [id number] Author: Serenity Virgen RN Service: Care Management [...] for now. Discharge plan is return to [facility] when medically ready . SIGNATURE: Serenity Virgen RN PATIENT NAME: Derrell Hoyt DATE: January 24, 2021 TIME: 1:46 PM PAGER/CONTACT #: [phone] 01-24-2021 NoteHNO ID: [id number] Author: Karolina Broussard MD Service: Hospital Medicine [...] digits in the phone number beginning with ([phone]). We encourage the use of [employer] Secure Chat. SUBJECTIVE HPI: This is a [...] was kept on drip. Patient transferred to [facility] under EP for possible ablation. Outside [...] alert. Lines, Drains, and Airways Line Peripheral 01/20/21 2118 Left Forearm 20 Gauge 3 days Reviewed lines and needs to be continued: REASONS: Telemetry Data: I have reviewed all of the lab / imaging / pathology from today. Pertinent study results include: None Recent Labs 01/24/21 034 CA 8.8 Recent Labs 01/24/21 0348 WBC 13.28* RBC 4.52 HB 13.9 HCT 43.0 PLT 199 MCV 95.1 MCH 30.8 MPV 10.2 ABSNEUT 9.53* NEUTP 71.7 LYMPHP 14.7 MONOP 5.3 Recent Labs 01/24/21 034 GLUC 156* NA 135* K 4.7 CHLOR 99 CO2 28 CREAT 0.69* BUN 13 ANION 8* CA 8.8 TPROT 7.0 ALB 3.9 TBILI 0.6 ALKPHOS 252* AST 33 ALT 36 Recent Labs 01/24/2134601/23/212010 GLUC 15 (more content not included)...[facility]08-03-2021 NoteHNO ID: [id number] Author: Kyra Hinson RN Service: Nursing Author Type: Registered Nurse Type: Nursing Progress Note Filed: 01/23/2021 5:38 PM Note Text: Summary: transfer note Telephone report to Alise BEARD 4200. Plan to transfer when bed is ready.[facility]08-03-2021 NoteHNO ID: [id number] Author: Jose Carlos Dean [facility] Service: Pharmacy Author Type: Pharmacist Type: Plan of Care Filed: 01/24/2021 12:08 PM Note Text: PHARMACY MEDICATION REVIEW Patient Name: Derrell Hoyt : 1965 The following medications were updated within the [facility] medication list: Medications ADDED to [facility] medication list acetaminophen (TYLENOL) 325 mg tablet [...] a week. Every Friday. Medications CHANGED on [facility] medication list metFORMIN (GLUCOPHAGE) 1,000 mg tablet [...] by mouth once daily. Medications REMOVED from [facility] medication list levothyroxine (SYNTHROID) 300 mcg tablet (See new strength above) Take 200 mcg by mouth daily before breakfast. aspirin, enteric coated (ASPIRIN, ENTERIC COATED) 81 mg EC tablet (not on Assisted Care [facility]) Take 1 tablet by mouth once daily. Patient taking differently: Take 81 mg by mouth once daily. Taking prn simvastatin (ZOCOR) 80 mg tablet (takes atorvastatin) Take 1 tablet by mouth daily at bedtime. Patient not taking: Reported on 04/12/2019 buPROPion SR (ZYBAN SR; WELLBUTRIN SR) 150 mg 12 hr tablet (not on Assisted Care MAR) Take 1 tablet by mouth once daily. fluticasone-vilanterol (BREO ELLIPTA) 100-25 mcg/dose inhaler (uses Dulera) Inhale 1 Inhalation as instructed once daily. collagenase (SANTYL) ointment (not on Assisted Care [facility]) Apply 1 application to affected area once daily. Gauze Bandage 4 X 4 bndg (entry is from March 2019; not in Assisted Care [facility]) Apply 1 application to affected area once daily. sodium chloride (STERILE SALINE) 0.9 % IRRIGATION (entry is from March 2019; not in Assisted Care [facility]) Wet gauze pads liberally, cover ulcer. Gauze Bandage 3 X 75 bndg (entry is from March 2019; not in Assisted Care [facility]) Apply 1 application to affected area once daily. Adhesive Tape (PAPER TAPE) 1 X 10 -yard tape (entry is from March 2019; not in Assisted Care [facility]) Apply 1 application to affected area once daily. Non-Adherent Bandage (TELFA) 8 X 10 bndg (entry is from March 2019; not in Assisted Care [facility]) Apply 1 application to affected area once daily. 4 x 8 inch Additional comments: N/A The below information represents the best possible medication history: Yes Medication history completed by: Pharmacist: Stephanie Hernandez RPh Source of history: assisted/Other [facility] MAR- faxed from [facility] Medication nonadherence identified: No b (more content not included)...[facility]08-03-2021 NoteHNO ID: [id number] Author: Mikhailoctavia Vinson MD Service: Cardiovascular Medicine Author Type: Physician Type: Progress Notes Filed: 01/23/2021 3:29 PM Note Text: [facility] CVICU PROGRESS NOTE Service Date: 01/23/2021 Service [...] was kept on drip. Patient transferred to [facility] under EP for possible ablation. Outside [...] Normal rate and r (more content not included)...[facility]08-02-2021 NoteHNO ID: [id number] Author: Eren Spence MD Service: Electrophysiology Author Type: Physician Type: Progress Notes Filed: 01/22/2021 1:40 PM Note Text: PROGRESS NOTE CARDIOLOGY SERVICE [facility] Electrophysiology (EP) SERVICE DATE: 01/22/2021 SERVICE TIME: [...] Most recent telemetry monitoring Outside chart from [facility], Dr. Graham reviewed. Past 72 Hour Labs: Recent Labs [...] arrhythmia by cardiac monitoring (more content not included)...[facility] 01-22-2021 NoteHNO ID: [id number] Author: Bethany Douglass MD Service: Hospital Medicine Author Type: Resident Type: Progress Notes Filed: 01/22/2021 2:04 PM Note Text: Attestation signed by Eren Spence MD at 01/22/2021 2:10 PM [facility] Electrophysiology (EP) EP Attending Attending Note I personally saw and examined the patient. I reviewed the resident's note. I agree with the resident's assessment and plan unless otherwise noted (see my separate progress note from today where I articulate my treatment plan). Signature: Eren Spence MD Date: 01/22/2021 Time: 2:09 PM [facility] CVICU PROGRESS NOTE Service Date: 01/22/2021 Service [...] was kept on drip. Patient transferred to [facility] under EP for possible ablation. Outside [...] Meter Kit - [place] (more content not included)...[facility]08-01-2021 Note HNO ID: [id number] Author: Adarsh Wilson MD Service: Cardiovascular Medicine [...] was kept on drip. Patient transferred to [facility] under EP for possible ablation. Most [...] tablet by mouth once (more content not included)...[facility] 01-18-2021 Evaluation note* Diagnosis Onset Date Resolution Status Atherosclerosis of coronary artery of [place] heart without angina pectoris acute History of coronary artery stent placement January 18, 2021 acute NSVT (nonsustained ventricular tachycardia) acute Hypertension chronic Bradycardia acute Dizziness acute [facility] Work Phone: [phone]) 890-570507-29-2021 Evaluation note* Diagnosis Onset Date Resolution Status Atherosclerosis of coronary artery of [place] heart without angina pectoris acute NSVT (nonsustained ventricular tachycardia) acute History of coronary artery stent placement January 18, 2021 chronic Hypertension chronic Atherosclerosis of coronary artery of [place] heart without angina pectoris acute Bradycardia acute Dizziness acute NSVT (nonsustained ventricular tachycardia) acute History of coronary artery stent placement January 18, 2021 chronic Hypertension chronic [facility] Work Phone: Consult note Author Steve karen [facility] Note Date/Time October 20, 2024 11: 34am [facility] Medical Records Department [address] [place] [address] Anesthesia Postop Eval II 10/20/24 1108 MR#: [id number] Acct: [id number] Name: DERRELL HOYT Rep #:[id number] : 1965 59 From: Steve Mckenzie MD PCP: Radha Barajas [employer]-C Status: REG SDC Y Race: C Location: [place] [address]- Anesthesia Postop Eval I Sum Postop Eval Completion status Anesthesia document: Postop Eval 1 completed: Yes Anesthesia Postop Eval I Summary Anesthesia Postop Eval I Summary: Anesthesia Postop Eval I: Assessment Summary Airway patent Yes 10/20/24 10:46 [email or web address] Spontaneous unlabored Yes 10/20/24 10:46 [email or web address] respirations Mental status Awake,Calm 10/20/24 10:46 [email or web address] nausea No 10/20/24 10:46 [email or web address] Vomiting No 10/20/24 10:46 [email or web address] Anesthesia Postop Eval I: Fluid Summary Crystalloid volume administer 400 10/20/24 10:46 [email or web address] (ml) Colloids volume administered ( ml) Blood Product volume administered (ml) Total IV fluid infused 400 10/20/24 10:46 [email or web address] Anesthesia Postop Eval I: Summary Notes Anesthesia Complication No 10/20/24 10:46 [email or web address] Anesthesia Complication Comment: Post-operative progress note Anesthesia: Postop Eval II Evaluation Mental status: Awake Pain Level: 0 nausea: No Vomiting: No 10/20/24 1108 <Electronically signed by Steve Mckenzie MD > Date _ Steve Mckenzie MD Cosigner Signature: Date CC: ~ Signed [facility] Work Phone: Evaluation note* Diagnosis Onset Date Resolution Status Bradycardia resolved Dizziness resolved [facility] Work Phone: Evaluation note* Diagnosis Onset Date Resolution Status Morbid obesity acute SOB (shortness of breath) [place] [facility] Work Phone: Evaluation note* Diagnosis Onset Date Resolution Status Morbid obesity acute SOB (shortness of breath) [place] Atherosclerosis of coronary artery of [place] heart without angina pectoris acute HLD (hyperlipidemia) acute S/P PTCA (percutaneous trans luminal coronary angioplasty) acute [facility] Work Phone: Evaluation note* Diagnosis Increased frequency of urination- Primary Urinary frequency Screening for genitourinary condition Screening for other and unspecified genitourinary condition Dysuria documented in this encounter [facility] Author Mata Friend [facility] Note Date/Time October 20, 2024 9:4 4am [facility] Medical Records Department [address] [place] [address] History & Physical Exam 10/20/24 0942 MR#: [id number] Acct: [id number] Name: DERRELL HOYT Rep #:[id number] : 1965 59 From: Mata Pastor PCP: Radha Barajas, [employer] ASSEMBLERChaunceyC Status: REG [facility] Location: [place] [address]-1 HPI - General General Date of Admission: 10/20/24 Date of Service: 10/20/24 Chief Complaint: h/o polyps HPI Narrative DERRELL HOYT, is a 59 M who need a colonoscopy LUQ pain - deep pressure applying pressure relieves pain - no change with PO intake or movement - denies any weight loss - denies any HB BOWEL PREP has never been good - no change with eating - Miralax PRN - denies any bleeding BM - daily - does not always fully eliminate - denies any bleeding - weight gain - denies any falls in the past year Colon 11/06/2023 - TA, hyperplastic and inflammatory polyps - Preparation of the colon was poor. - Many 1 to 2 mm polyps in the sigmoid colon, at the hepatic flexure and in the ascending colon, removed with a hot snare. Resected and retrieved. - Multiple 4 mm polyps in the sigmoid colon and in the transverse colon, removed with a jumbo cold forceps. Resected and retrieved. - Stool in the rectum, in the recto-sigmoid colon, in the transverse colon, at the hepatic flexure, in the ascending colon and in the cecum. - Diverticulosis in the recto-sigmoid colon and in the sigmoid colon. Colon 09/17/2022 - TA and inflammatory polyps - Preparation of the colon was fair. - Diverticulosis in the recto-sigmoid colon and in the sigmoid colon. - Five 1 to 2 mm polyps in the sigmoid colon, in the transverse colon and in the ascending colon, removed with a hot snare. Resected and retrieved. - Stool in the rectum, in the recto-sigmoid colon, in the sigmoid colon, in the descending colon, at the splenic flexure and in the cecum. Colon 03/21/2022 - inflammatory polyps, random biopsies melanosis coli - Preparation of the colon was fair. - Multiple 5 mm, non-bleeding polyps in the entire colon. - Three 1 to 2 mm polyps in the rectum, in the sigmoid colon and in the descending colon, removed with a hot snare. Resected and retrieved. - Congested mucosa in the entire examined colon. Biopsied. - Diverticulosis in the recto-sigmoid colon and in the sigmoid colon. [facility] Medical History Redness of skin Thyroid disease Insulin dependent diabetes mellitus Anemia Hepatitis High cholesterol Difficulty swallowing History of diverticulitis Chronic cough History of pain when walking History of stress test History of irregular heartbeat Cellulitis Sleep apnea Lives in assisted living facility Wears glasses Wears dentures Depression Low iron Fatty liver Syncope Dietary restriction CPAP (continuous positive airway pressure) dependence Shortness of breath on exertion History of edema History of echocardiogram Cardiology follow-up encounter Tumor Atherosclerosis of coronary artery of [place] heart without angina pectoris Kidney stones COPD (chronic obstructive pulmonary disease) Former smoker Irregular heart beat NSVT (nonsustained ventricular tachycardia) Diabetes Asthma Hypothyroidism Hypertension Home Medications ?Medication ?Instructions ?Recorded ?Last Taken ?Type potassium chloride 20 mEq 20 meq PO DAILYCM SUPPLEMENT 04/23/19 12/30/23 Rx tablet,extended release(part/cryst) metformin 1,000 mg tablet 1,000 mg PO BID DIABETES 12/30/23 History tamsulosin 0.4 mg capsule 0.4 mg PO QHS PROSTATE 02/0512/29/23 History albuterol sulfate 90 mcg/actuation 2 puff inhalation Q 4H PRN 02/11/21 Unknown History aerosol inhaler SHORTNESS OF BREATH/WHEEZING montelukast 10 mg tablet 10 mg PO QHS ALLERGIES 01/1012/29/23 History (Singulair) acetaminophen 650 mg 650 mg PO Q8H PRN PAIN/FEVER 02/04/22 Unknown History tablet,extended release (Tylenol Arthritis Pain) guaifenesin 600 mg tablet, 600 mg PO Q12H PRN CONGESTI ON 02/04/22 11/18/23 History extended release 12 hr (Mucinex) fluticasone propionate 115 2 puff inhalation BID COPD 07/31/22 12/30/23 History mcg-salmeterol 21 mcg/actuation HFA inhaler (Advair HFA) blood sugar diagnostic 11/25/22 Unknown History atorvastatin 80 mg tablet 80 mg PO QHS CHOLESTEROL 12/29/23 History polyethylene glycol 3350 17 17 g PO DAILY PRN Constipa tion 02/12/24 10/19/24 History gram/dose oral powder (Miralax) metoprolol tartrate 25 mg tablet 25 mg PO BID #120 tab s 03/31/24 10/20/24 Rx sotalol 80 mg tablet 120 mg (1.5 x 80 mg) PO BID #120 03/31/24 Unknown Rx tabs levothyroxine 200 mcg tablet 275 mcg PO DAILY THYROID 07/07/24 10/20/24 History trazodone 50 mg tablet 25 mg PO QHS SLEEP 07/07/24 Unknown History furosemide 40 mg tablet 40 mg PO DAILY PRN PRN EDEMA 07/13/24 Unknown History melatonin 10 mg tablet 9 mg PO QHS SLEEP 07/13/24 U nknown History omeprazole 20 mg capsule,delayed 20 mg PO DAILY GERD 0 07/13/24 10/20/24 History release semaglutide 2 mg/dose (8 mg/3 mL) 2 mg subcut .wed FRANDY BETES 07/13/24 10/06/24 History subcutaneous pen injector (Ozempic) aspirin 81 mg capsule 81 mg PO DAILY 09/13/24 Unkn own History insulin glargine 100 unit/mL (3 56 unit subcut QPM Unknown History mL) subcutaneous pen (Lantus Solostar U-100 Insulin) nystatin 100,000 unit/gram topical 1 applic topical 4X /DAY PRN PRN 09/13/24 Unknown History powder SKIN FOLDS omega-3 fatty acids 2,000 mg PO DAILY 09/13/24 U nknown History senna-docusate sodium tablet 2 tab PO QHS 09/13/24 Unk nown History lisinopril 2.5 mg tablet 2.5 mg PO DAILY 10/20/24 Unk nown History Allergy/AdvReac Type Severity Reaction Status Date / Time No Known Allergies Allergy Verified 10/20/24 07:38 Family History Unknown Colon polyps Surgical History History of cardiac catheterization Hx of colonoscopy History of coronary artery stent placement (01/18/21) History of thyroidectomy Social History household members: other details: Assisted living housing: assisted living facility current occupational status: disabled Smoking Status: Former smoker how long ago did patient quit smokin years ago alcohol intake: never substance use type: does not use caffeine: Yes Type: carbonated beverages ROS Constitutional Constitutional: Denies fatigue, fever(s), poor appetite, weight gain or weight loss Gastrointestinal Gastrointestinal: Denies belching, bloating, change in bowel habits, change in stool character, chewing difficulty, coffee ground emesis, constipation, cramping, diarrhea, dyspepsia, dysphagia, early satiety, excessive flatus, fecalincontinence, heartburn, hematemesis, hematochezia, hemorrhoids, loose stools, melena, nausea, odynophagia, rectal bleeding, tenesmus, vomiting or weight changes Vital Signs Vital Signs Vital Signs: 10/20/24 07:44 10/20/24 07:44 10/20/24 08:06 Temperature 98.2 F 98.2 F Temperature Source Temporal Pulse Rate 75 75 Respiratory Rate 20 H 20 H Respiratory Pattern Normal Blood Pressure 118/53 L 118/53 L Blood Pressure Mean 74 Blood Pressure Source Monitor Blood Pressure Position Semi-Fowlers Blood Pressure Location Left Arm Pulse Ox 92 92 Oxygen Delivery Method Room Air Weight Weight: 332 lb 10.841 oz Body Mass Index (BMI) 45.1 Results Lab / Micro Data Labs: Laboratory Results - last 24 hr 10/20/24 07:37: POC Glucose 79 Assessment & Plan Assessment/Plan (1) LUQ pain: (2) Anemia: (3) Encounter for screening for malignant neoplasm of colon: PLAN: Assessment and Plan Assessment and Plan (1) Personal history of colonic polyps: Status: Acute (2) LUQ pain: Status: Acute (3) Anemia: Status: Acute (4) Loss of appetite: Status: Acute Orders: Orders CBC W/Diff, Automated Today D64.9 - Anemia, unspecified, R10.12 - Left upper quadrant pain, R63.0 - Anorexia, Z86.010 - Personal history of colon polyps Comprehensive Metabolic Profil Today D64.9 - Anemia, unspecified, R10.12 - Leftupper quadrant pain, R63.0 - Anorexia, Z86.010 - Personal history of colon polyps Abdomen Complete Today D64.9 - Anemia, unspecified, R10.12 - Left upper quadrant pain, R63.0 - Anorexia, Z86.010 - Personal history of colon polyps Medications: New peg 3350-electrolytes 236-22.74-6.74 -5.86 gram (Golytely) take as directed for split dose bowel prep until fecal effluent is clear 240 mL PO Q10M 4,000 mL 0RF polyethylene glycol 3350 (Miralax) Take as directed for 2day bowel prep 4 grams PO ONCE 238 grams 0RF colonoscopy polyethylene glycol 3350 (Miralax) Take as directed for 2day bowel prep 17 grams PO ONCE 238 grams 0RF colonoscopy Plan 59y/o male presents for consultation with a personal history of colon polyps andc/o LUQ pain. Colonoscopy was last performed October 2023 and revealed adenomas. Historically, all bowel preps in the past have been poor. He complains of LUQ abdominal pain. Pain is not exacerbated with PO intake or movement. He denies any N/V, but does endorse a loss of appetite. I have scheduled him for an ABD US, bidirectional endoscopies and ordered routine labs. Patient Instructions: Colon & EGD - 2 day bowel prep (1d GoLyte and 1d Miralax) ABD US CBC and CMP 10/20/24 0944 <Electronically signed by Mata Pastor DO> Cosigner Signature (if applicable): CC: UNRULY Barajas; Mata Pastor DO~ Signed [facility] Work Phone: Reason for referral (narrative)No reason for referral information availableWUniversity [facility]als [facility] Work Phone: Summary Purpose Family History No Family History Records Found Relationship Condition Age at Onset Recorded Date/T susannah Unknown Family History?- Unknown June 11:39am Family History?- Unknown June 11:39am Relationship Condition Age at Onset Recorded Date/T susannah Unknown Family History?- Unknown June 11:39am Family History?- Unknown January 08, 2022 1:58pm Relationship Condition Age at Onset Recorded Date/T susannah unrelated friend Polyp of colon Unknown Advance Directives No Advanced Directives Records Found Date Activated Date Inactivated Comments 11/18/2023 10:39 PM 11/22/2023 11:30 PM Question Answer Comments Full Code Order Discussed With: Patient Advance Directive Response Recorded Date/ Time Living Will No September 13, 2021 4:59pm Power of It Recruiter No September 13 4:59pm Advance Directive Response Recorded Date/ Time Living Will No January 08, 2022 1:58pm Power of It Recruiter No January 08 1:58pm Date Activated Date Inactivated Comments 11/18/2023 10:39 PM Advance Directive Response Recorded Date/ Time Do you have a Healthcare Power of It Recruiter? No October 18, 2024 11:26am Advance Directive Response Recorded Date/ Time Do you have a Healthcare Power of It Recruiter? No November 30, 2024 12:52pm Do you have a Healthcare Power of It Recruiter? No October 18, 2024 11:26am Chief Complaint and Reason for Visit Chief Complaint 3 M FU LONG-TERM COVID TESTING WEAKNESS Reason for Visit Atherosclerosis of c oronary artery of [place] heart without angina pectoris History of coronary artery stent placement NSVT (nonsustained ventricular tachycardia) Hypertension Bradycardia Dizziness Chief Complaint 3 M FU LONG-TERM COVID TESTING Weakness Weakness WEAKNESS Weakness Reason for Visit Atherosclerosis of c oronary artery of [place] heart without angina pectoris NSVT (nonsustained ventricular tachycardia) History of coronary artery stent placement Hypertension Atherosclerosis of coronary artery of [place] heart without angina pectoris Bradycardia Dizziness NSVT (nonsustained ventricular tachycardia) History of coronary artery stent placement Hypertension Chief Complaint LONG-TERM COVID T ESTING 48 HOUR 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 RX HERE Reason for Visit Morbid obesity SOB (shortness of breath) Chief Complaint COPD, LEFT LOWER LOB E INFILTRATE SHAHANA Amb Documentation 1 Y FU SOB Shortness of breath LACK OF CORORDINATION/WEAKNESS. RX HERE Reason for Visit Morbid obesity SOB (shortness of breath) Atherosclerosis of coronary artery of [place] heart without angina pectoris HLD (hyperlipidemia) S/P PTCA (percutaneous transluminal coronary angioplasty) Chief Complaint COPD, LEFT LOWER LOB E INFILTRATE SHAHANA Amb Documentation 1 Y FU SOB Shortness of breath LACK OF CORORDINATION/WEAKNESS. RX HERE SOB Shortness of breath Reason for Visit Morbid obesity SOB (shortness of breath) Atherosclerosis of coronary artery of [place] heart without angina pectoris HLD (hyperlipidemia) S/P PTCA (percutaneous transluminal coronary angioplasty) Chief Complaint Admit Date Pre-Colon July 13, 2024 2 :05pm ROLLATOR/GAIT RX HERE September 22, 2024 1: 20pm Reason for Visit Admit Date Anemia July 13, 2024 2 :05pm Loss of appetite July 13, 2024 2 :05pm LUQ pain July 13, 2024 2 :05pm Personal history of colonic polyps Janua 2024 2:05pm Anemia October 20, 2024 7:0 6am Encounter for screening for malignant ne oplasm of colon October 20, 2024 7:06am LUQ pain October 20, 2024 7:0 6am Chief Complaint Admit Date ROLLATOR/GAIT RX HERE September 22, 2024 1: 20pm Test Result November 11, 2024 2:52p m 6 M FU November 19, 2024 10:35 am Reason for Visit Admit Date Anemia October 20, 2024 7:0 6am Encounter for screening for malignant ne oplasm of colon October 20, 2024 7:06am LUQ pain October 20, 2024 7:0 6am Elevated alkaline phosphatase level November 11, 2024 2:52pm LUQ pain November 11, 2024 2:52p m HLD (hyperlipidemia) November 19, 2024 10:3 5am S/P PTCA (percutaneous transluminal daniella nary angioplasty) November 19, 2024 10:35am Chief Complaint Admit Date ROLLATOR/GAIT RX HERE September 22, 2024 1: 20pm Test Result November 11, 2024 2:52p m 6 M FU November 19, 2024 10:35 am chest pressure November 30, 2024 12:3 5pm Additional Source Comments (unrecognized sect ion and content) No Status Records FoundNo Status Records FoundNo Status Records FoundNo Status Records FoundNo Status Records Found INFORMATION SOURCE (unrecogn ized section and content) DATE CREATED AUTHOR 10/04/2018 [facility] DATE CREATED AUTHOR AUTHOR'S ORGANIZ ATION 02/01/2021 [facility] DATE CREATED AUTHOR AUTHOR'S ORGANIZ ATION 01/24/2024 [facility] DATE CREATED AUTHOR AUTHOR'S ORGANIZ ATION 11/04/2024 [facility] DATE CREATED AUTHOR AUTHOR'S ORGANIZ ATION 12/14/2024 [facility] Goals (unrecognized section and content) Goals may be documented in a n alternate sectionGoals may be documented in an alternate sectionGoals may be documented in an alternate sectionGoals may be documented in an alternate sectionGoals may be documented in an alternate sectionGoals may be documented in an alternate sectionGoals may be documented in an alternate sectionGoals may be documented in an alternate section Source Comments (unrecognize d section and content) In the event this informatio n is protected by the Federal Confidentiality of Alcohol and Drug Abuse Patient Records regulations: The Federal rules restrict any use of the information to criminally investigate or prosecute any alcohol or drug abuse patient.[facility] System[facility] the event this information is protected by the Federal Confidentiality of Alcohol and Drug Abuse Patient Records regulations: The Federal rules restrict any use of the information to criminally investigate or prosecute any alcohol or drug abuse patient.[facility] SystemIn the event this information is protected by the Federal Confidentiality of Alcohol and Drug Abuse Patient Records regulations: The Federal rules restrict any use of the information to criminally investigate or prosecute any alcohol or drug abuse patient.[facility] SystemIn the event this information is protected by the Federal Confidentiality of Alcohol and Drug Abuse Patient Records regulations: The Federal rules restrict any use of the information to criminally investigate or prosecute any alcohol or drug abuse patient.[facility] Reason for Visit (unrecogniz ed section and content) Reason Comments Radiology NM Reason Comments Results Patient Update Reason Comments Urinary Frequency Dysuria New Patient Specialty Diagnoses / Procedures Referred By Contac t Referred To Contact Urology / UROLOGY Diagnoses Dysuria Urination frequency Increased Urination & Dysuria. Left message for patient to call clinic- No referral. [facility] Procedures OFFICE/OUTPATIENT NEW HIGH MDM 60 MINUTES OFFICE/OUTPATIENT NEW MODERATE MDM 45 MINUTES OFFICE/OUTPATIENT NEW LOW MDM 30 MINUTES OFFICE/OUTPATIENT NEW SF MDM 15 MINUTES NEW UROL Reinaldo Paez MD [address] [place] [address] Phone: tel: fax: Ella Bernal PA-C [id number] [place] [address] Phone: tel: fax: Referral ID Status Reason Start Date Expiration Date Visits Re quested Visits Authorized [id number] Closed 10/26/2024 06/22/2025 1 1 Reason Comments Appointment Care Teams (unrecognized sec tion and content) Team Status: Active Member Role Status Dates Radha Barajas MARINE CHRONOMETER ASSEMBLER, MARINE CHRONOMETER ASSEMBLER-C Primary Care Provider Act john Team Status: Inactive Member Role Status Dates Radha Barajas MARINE CHRONOMETER ASSEMBLER, MARINE CHRONOMETER ASSEMBLER-C Primary Care Provider Act john Start: September 22, 2024 End: September 22, 2024 Radha Barajas MARINE CHRONOMETER ASSEMBLER, MARINE CHRONOMETER ASSEMBLER-C Attending Provider Active Start: September 22, 2024 End: September 22, 2024 Radha Barajas MARINE CHRONOMETER ASSEMBLER, MARINE CHRONOMETER ASSEMBLER-C Referring Provider Active Start: September 22, 2024 End: September 22, 2024 Team Status: Inactive Member Role Status Dates Radha Barajas MARINE CHRONOMETER ASSEMBLER, MARINE CHRONOMETER ASSEMBLER-C Primary Care Provider Act john Start: October 20, 2024 End: October 20, 2024 Radha Barajas MARINE CHRONOMETER ASSEMBLER, MARINE CHRONOMETER ASSEMBLER-C Referring Provider Active Start: October 20, 2024 End: October 20, 2024 Dr. Mata Pastor , Attending Provider Active Start: October 20, 2024 End: October 20, 2024 Team Status: Active Member Role Status Dates Radha Barajas MARINE CHRONOMETER ASSEMBLER, MARINE CHRONOMETER ASSEMBLER-C Primary Care Provider Act john Start: October 20, 2024 Radha Barajas MARINE CHRONOMETER ASSEMBLER, MARINE CHRONOMETER ASSEMBLER-C Referring Provider Active Start: October 20, 2024 Dr. Mata Pastor , Attending Provider Active Start: October 20, 2024 Dr. Mata Pastor , Other Provider Active St art: October 20, 2024 Team Status: Inactive Member Role Status Dates Radha Barajas MARINE CHRONOMETER ASSEMBLER, MARINE CHRONOMETER ASSEMBLER-C Primary Care Provider Act john Start: November 11, 2024 End: November 11, 2024 Radha Barajas MARINE CHRONOMETER ASSEMBLER, MARINE CHRONOMETER ASSEMBLER-C Referring Provider Active Start: November 11, 2024 End: November 11, 2024 Karen Webber NP-C Attending Provider Active Start: November 11, 2024 End: November 11, 2024 Team Status: Inactive Member Role Status Dates Radha Barajas MARINE CHRONOMETER ASSEMBLER, MARINE CHRONOMETER ASSEMBLER-C Primary Care Provider Act john Start: November 19, 2024 End: November 19, 2024 Radha Barajas MARINE CHRONOMETER ASSEMBLER, MARINE CHRONOMETER ASSEMBLER-C Referring Provider Active Start: November 19, 2024 End: November 19, 2024 Brissa Hawkins MARINE CHRONOMETER ASSEMBLER, MARINE CHRONOMETER ASSEMBLER-C Attending Provider Active Start: November 19, 2024 End: November 19, 2024 Team Status: Inactive Member Role Status Dates Radha Barajas MARINE CHRONOMETER ASSEMBLER, MARINE CHRONOMETER ASSEMBLER-C Primary Care Provider Act john Start: November 30, 2024 End: November 30, 2024 Dr. Antoine Hahn MD Emergency Provider Active S tart: November 30, 2024 End: November 30, 2024 Team Status: Active Member Role Status Dates Radha Barajas MARINE CHRONOMETER ASSEMBLER, MARINE CHRONOMETER ASSEMBLER-C Primary Care Provider Act john Start: September 22, 2024 Radha Barajas NP, MARINE CHRONOMETER ASSEMBLER-C Attending Provider Active Start: September 22, 2024 Radha Barajas NP, MARINE CHRONOMETER ASSEMBLER-C Referring Provider Active Start: September 22, 2024 Coal Hauler Relationship Specialty Start Date End Date Reinaldo Paez MD [address] [facility] [place] [address] PCP - General Family Medicine 07/30/19 Coal Hauler Relationship Specialty Start Date End Date Reinaldo Paez MD [address] [facility], [place] [id number] PCP - General Family Medicine 07/30/19 Team Status: Inactive Member Role Status Dates Radha Barajas NP, MARINE CHRONOMETER ASSEMBLER-C Primary Care Provider Act john Start: July 13, 2024 End: July 13, 2024 Radha Barajas NP, MARINE CHRONOMETER ASSEMBLER-C Referring Provider Active Start: July 13, 2024 End: July 13, 2024 UNRULY Mcallister Attending Provider Active Start: July 13, 2024 End: July 13, 2024 Coal Hauler Relationship Specialty Start Date End Date Reinaldo Paez MD [address] [facility], [place] [id number] PCP - General Family Medicine 07/30/19 Coal Hauler Relationship Specialty Start Date End Date Reinaldo Paez MD [address] [facility], [place] [id number] PCP - General Family Medicine 07/30/19 FOR [...] BE BASED ON THE PRIMARY CLINICAL RECORDS. [employer]. provides no warranty or guarantee of the accuracy or completeness of information in this document.
--- NOTE | 2024-12-15 23:05 | ECHOCS_ITS ---
Reason For Study Reason For Study: CHF Procedure This was a 2D Doppler, Color Flow transthoracic echocardiogram. The study was technically difficult. Contrast injection was performed. Exam performed portable in patient room. Left Ventricle Normal LV size. Mild concentric left ventricular hypertrophy. The LV ejection fraction is 65 %. Stage 1 diastolic dysfunction. Right Ventricle Normal right ventricle. Atria There is mild biatrial dilatation. Mitral Valve Normal mitral valve. Tricuspid Valve Normal tricuspid valve. Aortic Valve The aortic valve is not well visualized in the short axis view. There is no aortic stenosis. No aortic valve insufficiency. Pulmonic Valve The pulmonic valve is not well visualized. Great Vessels The aortic root is not well visualized. Pericardium/Pleural No pericardial effusion. Medication Diluted definity 1ml given slow IV push to enhance endocardial definition. MMode/2D Measurements & Calculations LVIDd: 5.4 cm IVSd: 1.1 cm LVOT diam: 2.0 cm LVIDs: 3.6 cm LVPWd: 1.4 cm FS: 33.9 % LVOT area: 3.3 cm2 LAV(MOD-bp): 78.0 ml LVAd ap4: 42.1 cm2 SV(MOD-sp4): 84.9 ml LAV(MOD-bp) Indexed: 29.7 ml/m2 LVLd ap4: 9.9 cm SI(MOD-sp4): 32.3 ml/m2 LAV(MOD-sp2): 83.9 ml EDV(MOD-sp4): 146.5 ml LAV(MOD-sp4): 66.9 ml EDV(sp4-el): 153.0 ml LVAs ap4: 25.5 cm2 LVLs ap4: 8.6 cm ESV(MOD-sp4): 61.5 ml ESV(sp4-el): 64.4 ml EF(MOD-sp4): 58.0 % EF(sp4-el): 57.9 % SV(sp4-el): 88.7 ml LA A4 area: 25.0 cm2 LA dimension(2D): 4.7 cm RA A4 area: 24.9 cm2 Time Measurements MV dec time: 0.29 sec Doppler Measurements & Calculations MV E max navin: 105.6 cm/sec Lat Peak E' Navin: 10.0 cm/sec Med Peak E' Navin: 9.5 cm/sec MV A max navin: 88.6 cm/sec E/E' lat: 10.6 E/E' med: 11.2 MV E/A: 1.2 MV V2 max: 103.4 cm/sec MV dec slope: 373.5 cm/sec2 Ao V2 max: 147.9 cm/sec MV max P.3 mmHg Ao max P.8 mmHg MV V2 mean: 69.1 cm/sec Ao V2 mean: 100.2 cm/sec MV mean P.1 mmHg Ao mean P.7 mmHg MV V2 VTI: 34.6 cm Ao V2 VTI: 33.5 cm MVA(VTI): 2.7 cm2 AV (velocity ratio): 0.84 ROSEANNE(I,D): 2.8 cm2 ROSEANNE(V,D): 2.9 cm2 LV V1 max: 128.2 cm/sec SV(LVOT): 93.1 ml PA V2 max: 94.5 cm/sec LV V1 max P.6 mmHg PA V2 mean: 65.5 cm/sec LV V1 mean P.1 mmHg LV V1 mean: 94.4 cm/sec LV V1 VTI: 28.3 cm ECHO/Echo Complete W/ Contrast Interpretation Summary Mild concentric left ventricular hypertrophy. The LV ejection fraction is 65 %. Stage 1 diastolic dysfunction. There is mild biatrial dilatation. The study was technically difficult. Ordering Physician: Arlette Grigsby Referring Physician: MORGAN RIVERS Performed By: Ada Browning RCS
[2024-12-15 23:27] LABS: Magnesium 2.1 mg/dL (1.5-2.2)
[2024-12-16] VITALS (13 sets, daily range): BP systolic 83–105; BP diastolic 43–55; PULSE 75–88; RESP 16–20; TEMP 36–37; O2SAT 79–97; BMI 44.6
[2024-12-16] MEDS: Vancomycin HCl 2,000 MG in 0.9% Normal Saline (500mL Bag) 500 ML 250 MG IV
[2024-12-16] MEDS: traZODone 50 MG Tablet 150 MG PO ×2 (00:03→22:22)
[2024-12-16] MEDS: MELATONIN 10 MG TABLET PO ×2 (00:03→22:21)
--- NOTE | 2024-12-16 00:46 | PCM.RX.CS ---
Consult Antibiotic Management Pharmacy has been consulted to manage selected antibiotic: Vancomycin Type of Intervention Type of Consult: Follow-up Labs Labs: Sodium 133 mmol/L (133-145) 12/15/24 19:00 Potassium 4.4 mmol/L (3.3-5.1) 12/15/24 19:00 Chloride 92 mmol/L (98-108) L 12/15/24 19:00 Carbon Dioxide 30.8 mmol/L (21.0-32.0) 12/15/24 19:00 Anion Gap 10 (5-15) 12/15/24 19:00 BUN 14 mg/dL (4-19) 12/15/24 19:00 Creatinine 0.73 mg/dL (0.70-1.20) 12/15/24 19:00 Est GFR (MDRD) Non-Af 105 (>60) 12/15/24 19:00 BUN/Creatinine Ratio 19.3 RATIO (10-20) 12/15/24 19:00 Glucose 116 mg/dL (70-99) H 12/15/24 19:00 Dosing Weight Weight used for dosin kg Estimated Creatinine Clearance Estimated Creatinine Clearance: 165 Goal Trough Goal Trough: 15-20 mcg/mL Pharmacy Plan for Drug Dosing Pharmacy Plan for Drug Dosing: Pharmacy Service will continue to monitor and adjust dosing as required. LOADING DOSE 2GM GIVEN 12/16 @ 0000. START 1500MG Q8H AND DRAW TROUGH PRIOR TO 4TH DOSE Follow-Up Labs Follow-Up Labs: Trough: Vancomycin Date/Time Labs Ordered Labs to be done on [date and time ordered]: 12/16 @ 7075
[2024-12-16 04:33] LABS: Reflex Lactate? Y
[2024-12-16 05:37] LABS: Lactic Acid 1.6 mmol/L (0.0-2.0)
[2024-12-16 05:43] LABS: Absolute Lymphocyte Count 1.25 X10^3/uL (0.83-4.51); Absolute Neutrophil Count 8.6 X10^3/uL (2.0-7.7); Basophil# 0.04 X10^3/uL; Basophil% 0.4 % (0-1); Eosinophil# 0.14 X10^3/uL; Eosinophils% 1.3 % (0-5); Hematocrit 29.9 % (40-54); Hemoglobin 7.9 g/dL (13.0-16.5); Lymphocyte # 1.25 X10^3/ul (0.83-4.51); Lymphocyte % 11.6 % (19-41); Mean Corp Hgb Conc 26.4 g/dL (32-36); Mean Corpuscular Hgb 19.8 pg (27.0-32.0); Mean Corpuscular Volume 75.1 fL (80-94); Mean Platelet Vol. 9.3 fl (6.2-12.0); Monocyte# 0.78 X10^3/uL; Monocyte% 7.2 % (0-10); NRBC Flagged by Analyzer 0 % (0-5); Neutrophil # 8.57 X10^3/uL (2.7-7.7); Neutrophil % 79.2 % (47-70); POSITIVE MORPHOLOGY YES; Platelet Count 197 K/mm3 (150-450); RBC Distribution Width CV 20.4 % (11.6-14.6); RBC Distribution Width SD 55.1 fl (35.1-43.9); Red Blood Count 3.98 M/mm3 (4.6-6.2); White Blood Count 10.8 K/mm3 (4.4-11.0)
[2024-12-16] MEDS: Piperacil/Tazobactam 3.375 GM in 0.9% Normal Saline (50mL MB+) 50 ML IV (05:55)
[2024-12-16] MEDS: Levothyroxine 100 MCG Tablet PO (05:56)
[2024-12-16] MEDS: Levothyroxine 175 MCG Tablet PO (05:56)
[2024-12-16 06:04] LABS: Differential Indicated SCAN CRITERIA MET
[2024-12-16] MEDS: Dextrose 10%-Water 250 ML 999 ML IV (06:33)
[2024-12-16 06:44] LABS: Hemoglobin A1c 5.3 % (<=5.6)
[2024-12-16 07:04] LABS: Cholesterol 72 mg/dL (<=200); Ferritin 12 ng/mL (37-417); High Density Lipoprotein 32 mg/dL; Low Density Lipoprotein Calc. 23 mg/dL; Triglycerides 83 mg/dL; Very Low Density Lipoprotein 17 mg/dL (5-40); cholesterol:hdl ratio screen 2.25
[2024-12-16 07:09] LABS: Bedside Glucose 39 mg/dL (74-106)
[2024-12-16 07:09] LABS: Bedside Glucose 100 mg/dL (74-106)
[2024-12-16] MEDS: Ipratropium/Albuterol Sulfate 3 ML AMPUL.NEB INHALATION ×3 (07:17→19:02)
[2024-12-16 07:35] LABS: ALB/GLOB Ratio 0.9 RATIO (0.9-2.4); AST(SGOT) 24 U/L (<=37); Alanine Aminotransfer ALT/SGPT 17 U/L (<=46); Albumin, Serum 3.2 g/dL (3.5-5.0); Alkaline Phosphatase 251 U/L (40-129); Anion Gap 11 (5-15); BUN 14 mg/dL (4-19); BUN/Creat Ratio 21.5 RATIO (10-20); Calcium,Total 8.3 mg/dL (7.6-11.0); Carbon Dioxide 30.2 mmol/L (21.0-32.0); Chloride 96 mmol/L (98-108); Creatinine, Serum 0.66 mg/dL (0.70-1.20); EST Glomerular Filtration Rate 108 (>60); Estimated Creatinine Clearance 181.02 ml/min (50-250); Globulin 3.7 g/dL (2.2-4.2); Glucose 42 mg/dL (70-99); Protein, Total 6.9 g/dL (5.9-8.4); Sodium Level 137 mmol/L (133-145); Total Bilirubin 0.49 mg/dL (0.00-1.30)
[2024-12-16 07:44] LABS: Anisocytosis 2+
[2024-12-16 07:47] LABS: Iron 20 ug/dL (65-175); Iron Binding Capacity,Total 295 ug/dL (250-450); Iron Binding Capacity,Unsat 275 ug/dL (228-428)
[2024-12-16] MEDS: Sotalol Hydrochloride 80 MG Tablet 120 MG PO ×2 (09:13→23:58)
[2024-12-16] MEDS: Venlafaxine HCl 25 MG Tablet 37.5 MG PO ×2 (09:13→22:21)
[2024-12-16] MEDS: Potassium Chloride Oral Tablet 20 MEQ PO (09:13)
[2024-12-16] MEDS: Pantoprazole Sodium 20 MG Tablet PO (09:14)
[2024-12-16] MEDS: Metoprolol Tartrate 25 MG Tablet PO (09:14)
[2024-12-16] MEDS: Lisinopril 2.5 MG Tablet PO (09:14)
[2024-12-16] MEDS: Finasteride 5 MG Tablet PO (09:14)
[2024-12-16] MEDS: Senna Tablet 2 TABLET PO (09:17)
--- NOTE | 2024-12-16 09:22 | PN.HOSP_ITS ---
Reason for Visit Reason for Visit: Diagnoses Cellulitis, unspecified (12/15/24) Objective Data Objective Data Vital Signs: Vital Signs Temp Pulse Resp BP Pulse Ox O2 Del Method O2 Flow Rate 97.8 F 75 18 102/55 L 94 Nasal Cannula 2 12/16/24 08:51 12/16/24 09:14 12/16/24 08:51 12/16/24 08:51 12/16/24 08:51 12/16/24 08:51 12/16/24 08:51 Oxygen Flow Rate (L/min) 2 Oxygen Delivery Method Nasal Cannula Weight: 328 lb 11.347 oz Body Mass Index (BMI) 44.6 Intake & Output: Intake and Output for Last 24 Hours 12/14/24 12/15/24 12/16/24 23:59 23:59 23:59 Intake Total 50 / 50 790 / 790 Balance 50 / 50 790 / 790 Lab / Micro Data 12/16/24 05:00 12/16/24 05:00 Labs: Laboratory Results - last 24 hr 12/15/24 19:00: WBC 11.5 H, RBC 4.31 L, Hgb 8.6 L, Hct 31.6 L, MCV 73.3 L, MCH 20.0 L, MCHC 27.2 L, RDW Std Deviation 53.4 H, RDW Coeff of Jovany 20.6 H, Plt Count 217, MPV 9.4, Immature Gran % (Auto) 0.300, Neut % (Auto) 78.6 H, Lymph % (Auto) 12.0 L, [place] % (Auto) 7.7, Eos % (Auto) 1.1, Baso % (Auto) 0.3, Absolute Neuts (auto) 9.0 H, Absolute Lymphs (auto) 1.38, Nucleated RBC % 0, Differential Comment SCANNED, Platelet Estimate ADEQUATE, Polychromasia 1+, Anisocytosis 1+, Sodium 133, Potassium 4.4, Chloride 92 L, Carbon Dioxide 30.8, Anion Gap 10, BUN 14, Creatinine 0.73, Estim Creat Clear Calc 165.21, Est GFR (MDRD) Non-Af 105, BUN/Creatinine Ratio 19.3, Glucose 116 H, Calcium 8.9, Magnesium 2.1, NT pro BNP II 220, Procalcitonin 0.10 12/15/24 20:57: Lactic Acid 2.2 H* 12/16/24 05:00: WBC 10.8, RBC 3.98 L, Hgb 7.9 L, Hct 29.9 L, MCV 75.1 L, MCH 19.8 L, MCHC 26.4 L, RDW Std Deviation 55.1 H, RDW Coeff of Jovany 20.4 H, Plt Count 197, MPV 9.3, Immature Gran % (Auto) 0.300, Neut % (Auto) 79.2 H, Lymph % (Auto) 11.6 L, [place] % (Auto) 7.2, Eos % (Auto) 1.3, Baso % (Auto) 0.4, Absolute Neuts (auto) 8.6 H, Absolute Lymphs (auto) 1.25, Nucleated RBC % 0, Anisocytosis 2+, Sodium 137, Potassium 4.0, Chloride 96 L, Carbon Dioxide 30.2, Anion Gap 11, BUN 14, Creatinine 0.66 L, Estim Creat Clear Calc 181.02, Est GFR (MDRD) Non-Af 108, BUN/Creatinine Ratio 21.5 H, Glucose 42 L*, Hemoglobin A1c 5.3, Lactic Acid 1.6, Calcium 8.3, Iron 20 L, TIBC 295, Iron Saturation 7.0 L, Unsaturated IBC 275, Ferritin 12 L, Total Bilirubin 0.49, AST 24, ALT 17, Alkaline Phosphatase 251 H, Total Protein 6.9, Albumin 3.2 L, Globulin 3.7, Albumin/Globulin Ratio 0.9, Triglycerides 83, Cholesterol 72, LDL Cholesterol, Calc 23, VLDL Cholesterol 17, HDL Cholesterol 32 L, Cholesterol/HDL Ratio 2.25, TSH 8.580 H 12/16/24 06:25: POC Glucose 39 L* 12/16/24 06:50: POC Glucose 100 Radiography Diagnostic Testing: Radiology Impression Chest X-Ray 12/15/24 20:40 IMPRESSION: Findings compatible with CHF/volume overload. Reading Location: [id number] Physical Exam Narrative Seen and examined Bilateral leg swelling. No fever. Denies limited symptom it was noted to be hypoglycemic yesterday Physical exam General: Alert, Oriented x3, Cooperative. Morbid obesity BMI 44.6 kg/m? HEENT: Atraumatic, PERRLA, EOMI, Normocephalic. Oral: No Gingival or Mucosal Lesions/ Ulcerations Neck: Supple, No JVD, Negative Carotid Bruits Chest wall/Lungs: Air entry diminished in bilateral lung bases. No crepitation/rhonchi Cardiovascular: Regular rate and rhythm, Normal S1,S2, No M/G/R Abdomen: Bowel Sounds Present, Soft, Non Tender, Non-Distended : No dysuria. No renal angle tenderness. No suprapubic tenderness. Extremities: No edema, Capillary Refill Less than 3 Seconds Skin: Bilateral venous congestion suggestive of venous hypertension/stasis Musculoskeletal: Bilateral lower extremity swelling up to thigh level with chronic skin/subcutaneous thickening Neurological: Cranial nerves II-XII grossly intact, DTR 2+/4. No acute focal neurological deficit. Psych/Mental Status: Flat affect Assessment & Plan Assessment/Plan (1) Wound cellulitis: PLAN: Plan The patient is a 59 y/o M admitted with left foot wound that has been draining for last couple weeks but started draining #1. Left lower extremity extremity edema by BL LE venous stasis disease complicated with hypotension due to diabetic: Patient admitted in PCU. Patient started on furosemide 40 mg twice daily but got hypotensive in the afternoon 83/44. IV Lasix to be hold and if blood pressure permits then Ferrazone 40 mg twice daily. Midodrine 10 mg 3 times daily started. Discussed with the wound nurse and she thinks mainly venous congestion/edema not cellulitis. On vancomycin and Zosyn titrated down to IV ceftriaxone and doxycycline. Prelim wound culture shows 2+ GPR #2. Acute Hypoxia, suspected primarily secondary to SHAHANA, Morbid obesity hypoventilation syndrome, ECHO noted 11/19/2023 from [facility] with LV mildly dilated, moderate concentric LVH, LV systolic function normal, EF 63? percent thus will Echo 12/16/2024 suggestive of chronic HFpEF Mild concentric left ventricular hypertrophy. The LV ejection fraction is 65 %. Stage 1 diastolic dysfunction. There is mild biatrial dilatation. The study was technically difficult. #3. Chronic COPD/asthma with allergic rhinitis: Current ATC duonebs, PRN albuterol, HOB, IS parameters, continue home montelukast regimen. #4. Chronic microcytic anemia/iron deficiency anemia: Admission hemoglobin 8.6, MCV 73.3, baseline hemoglobin noted previously 11/30/2024 9.4 and prior to this 03/31/2024 hemoglobin 11.7, has trended downward, currently does not appear to be listed on antiplatelet therapy, potentially bleed related, will obtain iron panel, ferritin, guaiac to be cautious and trend CBC. #5. History NSVT: Will continue patient on sotalol and metoprolol regimen, following with EP cardiology per most recent cardiology note 11/19/2024. #6. CAD: Status post previous PCI LAD PTCA/bare-metal stent 2020, will continue patient home metoprolol, lisinopril, statin therapy, clarifying antiplatelet regimen. #7. Diabetes mellitus type II complicated with hypoglycemia: A1c 5.3, glucose 42. Most recent glucose is 101, 126, 112. Hold scheduled insulin. Accu-Chek AC and at bedtime incorrigible of sliding #8. Anxiety and depression: Will continue patient home venlafaxine and low-dose trazodone regimen with hold for sedation if necessary. #9. Hypertension: continue patient home sotalol, lisinopril IV Lasix as noted. As needed IV hydralazine. #10. Hyperlipidemia: Lipid profile shows HDL 32, LDL 23, total cholesterol 72. #11. Hypothyroidism: Status post previous thyroidectomy, resulting hypothyroidism, will continue patient home levothyroxine regimen. #12. Former tobacco usage: Encourage continued tobacco cessation. #13. Morbid Obesity: Weight loss and lifestyle changes encouraged. #14. SHAHANA: Will continue CPAP nightly. #15. BPH with obstructive pathology: Will continue patient on Flomax and finasteride regimen, monitor for urinary retention. #16. GERD: Will continue patient on PPI. #17. DVT prophylaxis: SCDs, clarifying why patient is not on antiplatelet therapies and given worsening anemia will hold off on chemoprophylaxis, add if workup unremarkable and noted to be clinically appropriate. #18. CODE status: Patient HCPOA and living will are not in place but he notes his daughter would be his medical decision-maker if necessary. Discussed CODE status at length including difference between FULL code, DNR-CCA and DNR-CC status. Following discussions about the differences in these status, requested Full Code status. Clinical Impression(s) from Imaging Studies Chest X-Ray 12/15/24 20:40 IMPRESSION: Findings compatible with CHF/volume overload. Reading Location: [facility] Echocardiogram 12/15/24 23:05 Interpretation Summary Mild concentric left ventricular hypertrophy. The LV ejection fraction is 65 %. Stage 1 diastolic dysfunction. There is mild biatrial dilatation. The study was technically difficult. 12/15/24 23:30 Wound - Leg, Left Gram Stain - Final Laboratory Results 12/15/24 19:00: WBC 11.5 H, RBC 4.31 L, Hgb 8.6 L, Hct 31.6 L, MCV 73.3 L, MCH 20.0 L, MCHC 27.2 L, RDW Std Deviation 53.4 H, RDW Coeff of Jvoany 20.6 H, Plt Count 217, MPV 9.4, Immature Gran % (Auto) 0.300, Neut % (Auto) 78.6 H, Lymph % (Auto) 12.0 L, [place] % (Auto) 7.7, Eos % (Auto) 1.1, Baso % (Auto) 0.3, Absolute Neuts (auto) 9.0 H, Absolute Lymphs (auto) 1.38, Nucleated RBC % 0, Differential Comment SCANNED, Platelet Estimate ADEQUATE, Polychromasia 1+, Anisocytosis 1+, Sodium 133, Potassium 4.4, Chloride 92 L, Carbon Dioxide 30.8, Anion Gap 10, BUN 14, Creatinine 0.73, Estim Creat Clear Calc 165.21, Est GFR (MDRD) Non-Af 105, BUN/Creatinine Ratio 19.3, Glucose 116 H, Calcium 8.9, Magnesium 2.1, NT pro BNP II 220, Procalcitonin 0.10 12/15/24 20:57: Lactic Acid 2.2 H* 12/16/24 05:00: WBC 10.8, RBC 3.98 L, Hgb 7.9 L, Hct 29.9 L, MCV 75.1 L, MCH 19.8 L, MCHC 26.4 L, RDW Std Deviation 55.1 H, RDW Coeff of Jovany 20.4 H, Plt Count 197, MPV 9.3, Immature Gran % (Auto) 0.300, Neut % (Auto) 79.2 H, Lymph % (Auto) 11.6 L, [place] % (Auto) 7.2, Eos % (Auto) 1.3, Baso % (Auto) 0.4, Absolute Neuts (auto) 8.6 H, Absolute Lymphs (auto) 1.25, Nucleated RBC % 0, Anisocytosis 2+, Sodium 137, Potassium 4.0, Chloride 96 L, Carbon Dioxide 30.2, Anion Gap 11, BUN 14, Creatinine 0.66 L, Estim Creat Clear Calc 181.02, Est GFR (MDRD) Non-Af 108, BUN/Creatinine Ratio 21.5 H, Glucose 42 L*, Hemoglobin A1c 5.3, Lactic Acid 1.6, Calcium 8.3, Iron 20 L, TIBC 295, Iron Saturation 7.0 L, Unsaturated IBC 275, Ferritin 12 L, Total Bilirubin 0.49, AST 24, ALT 17, Alkaline Phosphatase 251 H, Total Protein 6.9, Albumin 3.2 L, Globulin 3.7, Albumin/Globulin Ratio 0.9, Triglycerides 83, Cholesterol 72, LDL Cholesterol, Calc 23, VLDL Cholesterol 17, HDL Cholesterol 32 L, Cholesterol/HDL Ratio 2.25, TSH 8.580 H 12/16/24 06:25: POC Glucose 39 L* 12/16/24 06:50: POC Glucose 100 12/16/24 09:01: POC Glucose 54 L 12/16/24 09:47: POC Glucose 112 H 12/16/24 11:43: POC Glucose 126 H 12/16/24 12:05: MRSA (PCR) Pending 12/16/24 15:00: POC Glucose 101 Charges/Coding Visit Charges Inpatient E&M: 48069 Subs Hosp L2
[2024-12-16 09:24] LABS: Bedside Glucose 54 mg/dL (74-106)
--- NOTE | 2024-12-16 09:55 | WOUNDNOTE ---
wound photo: left lower leg
--- NOTE | 2024-12-16 09:56 | WOUNDNOTE ---
wound photo: left lateral lower leg
--- NOTE | 2024-12-16 09:56 | WOUNDNOTE ---
wound photo: left posteromedial lower leg
--- NOTE | 2024-12-16 09:57 | WOUNDNOTE ---
wound photo: right lower leg
--- NOTE | 2024-12-16 09:58 | WOUNDNOTE ---
wound photo: right lateral lower leg
[2024-12-16 10:05] LABS: Bedside Glucose 112 mg/dL (74-106)
[2024-12-16] MEDS: Furosemide 40 MG/4 ML Vial IV (10:07)
[2024-12-16] MEDS: Vancomycin HCl 1,500 MG in 0.9% Normal Saline (500mL Bag) 500 ML 250 MG IV (10:50)
[2024-12-16] MEDS: 0.9% Saline Lock 10 ML Syringe IV ×2 (10:50→14:17)
[2024-12-16 12:08] LABS: Bedside Glucose 126 mg/dL (74-106)
[2024-12-16] MEDS: Ceftriaxone 1 GM/50 ML BAG IV (14:17)
[2024-12-16 15:18] LABS: Bedside Glucose 101 mg/dL (74-106)
[2024-12-16] MEDS: Midodrine HCl 5 MG Tablet 10 MG PO (15:56)
[2024-12-16 17:07] LABS: M R Staph aureus DNA By PCR Negative (Negative); Probe Check PASS; Specimen Processing Control PASS
[2024-12-16 17:07] LABS: Bedside Glucose 110 mg/dL (74-106)
[2024-12-16] MEDS: Furosemide 40 MG Tablet PO (17:56)
[2024-12-16] MEDS: Atorvastatin Calcium 80 MG Tablet PO (22:20)
[2024-12-16] MEDS: Tamsulosin HCl 0.4 MG Capsule PO (22:21)
[2024-12-16] MEDS: Senna/Docusate Sodium 1 Tablet 2 TABLET PO (22:24)
[2024-12-16 23:23] LABS: Bedside Glucose 94 mg/dL (74-106)
[2024-12-16] MEDS: Doxycycline 100 MG CAPSULE PO (23:41)
[2024-12-17] VITALS (14 sets, daily range): BP systolic 90–115; BP diastolic 44–63; PULSE 75–88; RESP 14–18; TEMP 36.2–37.1; O2SAT 82–98; BMI 44.9
[2024-12-17 05:24] LABS: Bedside Glucose 77 mg/dL (74-106)
[2024-12-17] MEDS: Levothyroxine 100 MCG Tablet PO (06:22)
[2024-12-17] MEDS: Levothyroxine 175 MCG Tablet PO (06:22)
[2024-12-17] MEDS: Ipratropium/Albuterol Sulfate 3 ML AMPUL.NEB INHALATION ×2 (06:49→13:15)
[2024-12-17 06:50] LABS: Bedside Glucose 88 mg/dL (74-106)
[2024-12-17] MEDS: Potassium Chloride Oral Tablet 20 MEQ PO (09:00)
[2024-12-17] MEDS: Midodrine HCl 5 MG Tablet 10 MG PO ×3 (09:00→17:42)
[2024-12-17] MEDS: Venlafaxine HCl 25 MG Tablet 37.5 MG PO ×2 (09:01→21:51)
[2024-12-17] MEDS: Pantoprazole Sodium 20 MG Tablet PO (09:01)
[2024-12-17] MEDS: Finasteride 5 MG Tablet PO (09:02)
[2024-12-17] MEDS: Senna/Docusate Sodium 1 Tablet 2 TABLET PO ×2 (09:02→21:51)
[2024-12-17] MEDS: 0.9% Saline Lock 10 ML Syringe IV ×2 (09:08→21:51)
[2024-12-17] MEDS: Ceftriaxone 1 GM/50 ML BAG IV (09:10)
[2024-12-17] MEDS: Sotalol Hydrochloride 80 MG Tablet 120 MG PO ×2 (09:13→21:51)
[2024-12-17] MEDS: Doxycycline 100 MG CAPSULE PO ×2 (10:18→21:52)
[2024-12-17] MEDS: Polyethylene Glycol 3350 17 GM PACKET PO ×2 (10:21→21:53)
--- NOTE | 2024-12-17 10:58 | CASEMGMT ---
Addendum entered by Yudi Mix 12/17/24 10:59: Fax confirmation rec'd. Yudi Mix DC Planning Asst. Original Note: Discharge Planning Updates sent to [facility] with note that pt may return over the weekend. Yudi Mix DC Planning Asst.
--- NOTE | 2024-12-17 10:58 | CASEMGMT ---
NORMA met with patient as he is from [facility]. Patient confirms his plan is to return and he will need transportation. Green sheet on chart. Elisabeth KING
[2024-12-17 11:10] LABS: Bedside Glucose 125 mg/dL (74-106)
[2024-12-17] MEDS: Furosemide 40 MG Tablet PO ×2 (12:04→17:42)
--- NOTE | 2024-12-17 14:03 | PN.HOSP_ITS ---
Reason for Visit Reason for Visit: Diagnoses Cellulitis, unspecified (12/15/24) Objective Data Objective Data Vital Signs: Vital Signs Temp Pulse Resp BP Pulse Ox O2 Del Method O2 Flow Rate 97.9 F 80 18 93/48 L 98 Nasal Cannula 2 12/17/24 12:02 12/17/24 13:15 12/17/24 13:15 12/17/24 12:02 12/17/24 12:02 12/17/24 12:02 12/17/24 12:02 Oxygen Flow Rate (L/min) 2 Oxygen Delivery Method Nasal Cannula Weight: 331 lb 5.676 oz Body Mass Index (BMI) 44.9 Intake & Output: Intake and Output for Last 24 Hours 12/15/24 12/16/24 12/17/24 23:59 23:59 23:59 Intake Total 50 / 50 826 / 826 Balance 50 / 50 826 / 826 Lab / Micro Data 12/16/24 05:00 12/16/24 05:00 Labs: Laboratory Results - last 24 hr 12/16/24 12:05: MRSA (PCR) Negative 12/16/24 15:00: POC Glucose 101 12/16/24 16:47: POC Glucose 110 H 12/16/24 22:14: POC Glucose 94 12/17/24 04:26: POC Glucose 77 12/17/24 06:27: POC Glucose 88 12/17/24 10:53: POC Glucose 125 H Micro: Microbiology 12/15/24 23:30 Wound - Leg, Left Gram Stain - Final 12/15/24 23:30 Wound - Leg, Left Wound Culture - Preliminary Mixed Gram Pos & Gram Neg Org 12/15/24 23:30 Wound - Leg, Left Skin and Soft Tissue MRSA/MSSA (PCR - Final Radiography Diagnostic Testing: Radiology Impression Echocardiogram 12/15/24 23:05 Interpretation Summary Mild concentric left ventricular hypertrophy. The LV ejection fraction is 65 %. Stage 1 diastolic dysfunction. There is mild biatrial dilatation. The study was technically difficult. Ordering Physician: Arlette Grigsby Referring Physician: MORGAN RIVERS Performed By: Ada Browning RCS Physical Exam Narrative Seen and examined Blood pressure drops when he hangs his legs down because of pulling of the blood. Bilateral leg swelling better.. No fever. Denies limited symptom it was noted to be hypoglycemic yesterday Physical exam General: Alert, Oriented x3, Cooperative. Morbid obesity BMI 44.6 kg/m? HEENT: Atraumatic, PERRLA, EOMI, Normocephalic. Oral: No Gingival or Mucosal Lesions/ Ulcerations Neck: Supple, No JVD, Negative Carotid Bruits Chest wall/Lungs: Air entry diminished in bilateral lung bases. No crepitation/rhonchi Cardiovascular: Regular rate and rhythm, Normal S1,S2, No M/G/R Abdomen: Bowel Sounds Present, Soft, Non Tender, Non-Distended : No dysuria. No renal angle tenderness. No suprapubic tenderness. Extremities: No edema, Capillary Refill Less than 3 Seconds Skin: Bilateral venous congestion suggestive of venous hypertension/stasis Musculoskeletal: Bilateral lower extremity swelling up to knee level with chronic skin/subcutaneous thickening Neurological: Cranial nerves II-XII grossly intact, DTR 2+/4. No acute focal neurological deficit. Psych/Mental Status: Flat affect Assessment & Plan Assessment/Plan (1) Wound cellulitis: PLAN: Plan The patient is a 59 y/o M admitted with left foot wound that has been draining for last couple weeks but started draining #1. Left lower extremity extremity edema by BL LE venous stasis disease complicated with hypotension due to diabetic: Patient admitted in PCU. Patient started on furosemide 40 mg twice daily but got hypotensive in the afternoon 83/44. IV Lasix to be hold and if blood pressure permits then Ferrazone 40 mg twice daily. Midodrine 10 mg 3 times daily started. Discussed with the wound nurse and she thinks mainly venous congestion/edema not cellulitis. On vancomycin and Zosyn titrated down to IV ceftriaxone and doxycycline. Prelim wound culture shows 2+ GPR 12/17: Leg swelling is getting better. Now swelling up to the knee level. #2. Acute Hypoxia, suspected primarily secondary to SHAHANA, Morbid obesity hypoventilation syndrome, ECHO noted 11/19/2023 from [facility] with LV mildly dilated, moderate concentric LVH, LV systolic function normal, EF 63? percent thus will Echo 12/16/2024 suggestive of chronic HFpEF Mild concentric left ventricular hypertrophy. The LV ejection fraction is 65 %. Stage 1 diastolic dysfunction. There is mild biatrial dilatation. The study was technically difficult. 12/17 on 2 L of oxygen pulse ox 98% #3. Chronic COPD/asthma with allergic rhinitis: Current ATC duonebs, PRN albuterol, HOB, IS parameters, continue home montelukast regimen. #4. Chronic microcytic anemia/iron deficiency anemia: Admission hemoglobin 8.6, MCV 73.3, baseline hemoglobin noted previously 11/30/2024 9.4 and prior to this 03/31/2024 hemoglobin 11.7, has trended downward, currently does not appear to be listed on antiplatelet therapy, potentially bleed related, will obtain iron panel, ferritin, guaiac to be cautious and trend CBC. 12/17 H&H 7.9/19.8%. Platelet count 197K. #5. History NSVT: Will continue patient on sotalol and metoprolol regimen, following with EP cardiology per most recent cardiology note 11/19/2024. #6. CAD: Status post previous PCI LAD PTCA/bare-metal stent 2020, will continue patient home metoprolol, lisinopril, statin therapy, clarifying antiplatelet regimen. #7. Diabetes mellitus type II complicated with hypoglycemia: A1c 5.3, glucose 42. Most recent glucose is 101, 126, 112. Hold scheduled insulin. Accu-Chek AC and at bedtime incorrigible of sliding 12/17: # He has hypoglycemia with glucose dropping to 42 in BMP. Did not getting any insulin. On hypoglycemia protocol. #8. Anxiety and depression: = continue patient home venlafaxine and low-dose trazodone regimen with hold for sedation if necessary. #9. Hypertension: continue patient home sotalol, lisinopril IV Lasix as noted. As needed IV hydralazine. #10. Hyperlipidemia: Lipid profile shows HDL 32, LDL 23, total cholesterol 72. #11. Hypothyroidism: Status post previous thyroidectomy, resulting hypothyroidism, will continue patient home levothyroxine regimen. #12. Former tobacco usage: Encourage continued tobacco cessation. #13. Morbid Obesity: Weight loss and lifestyle changes encouraged. #14. SHAHANA: continue CPAP nightly. #15. BPH with obstructive pathology: Will continue patient on Flomax and finasteride regimen, monitor for urinary retention. #16. GERD: Will continue patient on PPI. #17. DVT prophylaxis: SCDs, clarifying why patient is not on antiplatelet therapies and given worsening anemia will hold off on chemoprophylaxis, add if workup unremarkable and noted to be clinically appropriate. #18. CODE status: Patient HCPOA and living will are not in place but he notes his daughter would be his medical decision-maker if necessary. Discussed CODE status at length including difference between FULL code, DNR-CCA and DNR-CC status. Following discussions about the differences in these status, requested Full Code status. Clinical Impression(s) from Imaging Studies Chest X-Ray 12/15/24 20:40 IMPRESSION: Findings compatible with CHF/volume overload. Reading Location: [id number] Echocardiogram 12/15/24 23:05 Interpretation Summary Mild concentric left ventricular hypertrophy. The LV ejection fraction is 65 %. Stage 1 diastolic dysfunction. There is mild biatrial dilatation. The study was technically difficult. 12/15/24 23:30 Wound - Leg, Left Gram Stain - Final Laboratory Results 12/15/24 19:00: WBC 11.5 H, RBC 4.31 L, Hgb 8.6 L, Hct 31.6 L, MCV 73.3 L, MCH 20.0 L, MCHC 27.2 L, RDW Std Deviation 53.4 H, RDW Coeff of Jovany 20.6 H, Plt Count 217, MPV 9.4, Immature Gran % (Auto) 0.300, Neut % (Auto) 78.6 H, Lymph % (Auto) 12.0 L, [place] % (Auto) 7.7, Eos % (Auto) 1.1, Baso % (Auto) 0.3, Absolute Neuts (auto) 9.0 H, Absolute Lymphs (auto) 1.38, Nucleated RBC % 0, Differential Comment SCANNED, Platelet Estimate ADEQUATE, Polychromasia 1+, Anisocytosis 1+, Sodium 133, Potassium 4.4, Chloride 92 L, Carbon Dioxide 30.8, Anion Gap 10, BUN 14, Creatinine 0.73, Estim Creat Clear Calc 165.21, Est GFR (MDRD) Non-Af 105, BUN/Creatinine Ratio 19.3, Glucose 116 H, Calcium 8.9, Magnesium 2.1, NT pro BNP II 220, Procalcitonin 0.10 12/15/24 20:57: Lactic Acid 2.2 H* 12/16/24 05:00: WBC 10.8, RBC 3.98 L, Hgb 7.9 L, Hct 29.9 L, MCV 75.1 L, MCH 19.8 L, MCHC 26.4 L, RDW Std Deviation 55.1 H, RDW Coeff of Jovany 20.4 H, Plt Count 197, MPV 9.3, Immature Gran % (Auto) 0.300, Neut % (Auto) 79.2 H, Lymph % (Auto) 11.6 L, [place] % (Auto) 7.2, Eos % (Auto) 1.3, Baso % (Auto) 0.4, Absolute Neuts (auto) 8.6 H, Absolute Lymphs (auto) 1.25, Nucleated RBC % 0, Anisocytosis 2+, Sodium 137, Potassium 4.0, Chloride 96 L, Carbon Dioxide 30.2, Anion Gap 11, BUN 14, Creatinine 0.66 L, Estim Creat Clear Calc 181.02, Est GFR (MDRD) Non-Af 108, BUN/Creatinine Ratio 21.5 H, Glucose 42 L*, Hemoglobin A1c 5.3, Lactic Acid 1.6, Calcium 8.3, Iron 20 L, TIBC 295, Iron Saturation 7.0 L, Unsaturated IBC 275, Ferritin 12 L, Total Bilirubin 0.49, AST 24, ALT 17, Alkaline Phosphatase 251 H, Total Protein 6.9, Albumin 3.2 L, Globulin 3.7, Albumin/Globulin Ratio 0.9, Triglycerides 83, Cholesterol 72, LDL Cholesterol, Calc 23, VLDL Cholesterol 17, HDL Cholesterol 32 L, Cholesterol/HDL Ratio 2.25, TSH 8.580 H 12/16/24 06:25: POC Glucose 39 L* 12/16/24 06:50: POC Glucose 100 12/16/24 09:01: POC Glucose 54 L 12/16/24 09:47: POC Glucose 112 H 12/16/24 11:43: POC Glucose 126 H 12/16/24 12:05: MRSA (PCR) Pending 12/16/24 15:00: POC Glucose 101 Charges/Coding Visit Charges Inpatient E&M: 57658 Subs Hosp L2
--- NOTE | 2024-12-17 15:45 | CASEMGMT ---
Addendum entered by Yudi Mix 12/20/24 09:03: [facility] declined referral. SW updated. Yudi Mix DC Planning Asst. Original Note: Discharge Planning HH referral sent to [facility] . Yudi Mix DC Planning Asst.
[2024-12-17 16:49] LABS: Bedside Glucose 119 mg/dL (74-106)
[2024-12-17] MEDS: Atorvastatin Calcium 80 MG Tablet PO (21:51)
[2024-12-17] MEDS: MELATONIN 10 MG TABLET PO (21:51)
[2024-12-17] MEDS: traZODone 50 MG Tablet 150 MG PO (21:51)
[2024-12-17] MEDS: Tamsulosin HCl 0.4 MG Capsule PO (21:51)
[2024-12-17 22:31] LABS: Bedside Glucose 99 mg/dL (74-106)
[2024-12-18 02:50] VITALS: BP 112/60; PULSE 85; RESP 16; TEMP 36.7; O2SAT 98
[2024-12-18 04:55] VITALS: BMI 45.1
[2024-12-18 06:10] VITALS: BP 109/54; PULSE 87; RESP 18; TEMP 36.6; O2SAT 95
[2024-12-18] MEDS: Levothyroxine 175 MCG Tablet PO (06:13)
[2024-12-18] MEDS: Levothyroxine 100 MCG Tablet PO (06:13)
[2024-12-18 06:34] LABS: Bedside Glucose 108 mg/dL (74-106)
[2024-12-18] MEDS: Ipratropium/Albuterol Sulfate 3 ML AMPUL.NEB INHALATION (06:34)
[2024-12-18 06:35] VITALS: PULSE 89; RESP 18; O2SAT 91
[2024-12-18 09:11] VITALS: BP 104/54; PULSE 86; RESP 16; TEMP 37; O2SAT 93
[2024-12-18] MEDS: Ceftriaxone 1 GM/50 ML BAG IV (09:17)
[2024-12-18] MEDS: Glucerna Shake 120 ML LIQUID PO (09:17)
[2024-12-18 09:18] VITALS: PULSE 86
[2024-12-18] MEDS: Metoprolol Tartrate 25 MG Tablet PO (09:18)
[2024-12-18] MEDS: Sotalol Hydrochloride 80 MG Tablet 120 MG PO (09:19)
[2024-12-18] MEDS: Midodrine HCl 5 MG Tablet 10 MG PO (09:19)
[2024-12-18] MEDS: Potassium Chloride Oral Tablet 20 MEQ PO (09:19)
[2024-12-18] MEDS: Venlafaxine HCl 25 MG Tablet 37.5 MG PO (09:20)
[2024-12-18] MEDS: Doxycycline 100 MG CAPSULE PO (09:20)
[2024-12-18] MEDS: Furosemide 40 MG Tablet PO (09:21)
[2024-12-18] MEDS: Finasteride 5 MG Tablet PO (09:21)
[2024-12-18] MEDS: Pantoprazole Sodium 20 MG Tablet PO (09:22)
[2024-12-18] MEDS: Senna/Docusate Sodium 1 Tablet 2 TABLET PO (09:23)
--- NOTE | 2024-12-18 09:33 | DCINST_ITS ---
Discharge Instructions Diet Discharge Diet: - (Diet: Cardiac: Calorie-Controlled Food consistency:: Regular Liquid Consistency:: Regular/Thin Fluid restriction:: 1500 mL How many daily calories?: 1800 calorie) DC O2, CPAP, BIPAP needs Home O2 Discharge instructions: Yes Type of respiratory needs?: Oxygen Oxygen frequency: Continuous Continuous oxygen liters per minute: 2 Dressing / Incision Discharge Activity: Return to Normal Activity Weight Bearing Status: Weight bearing as tolerated Dressing / Incision Call your doctor if you observe: Fever of 101 or Higher, Coldness, Increased Pain, Numbness or Tingling, Change in Color, Inability to urinate, Inability to have a bowel movement, Shortness of breath, Dizziness, Fainting spells, Swelling in the ankles, Chest pain, Prolonged hiccupping, Increased palpitations (irregular heartbeat) and Calf discomfort Follow Up Care When: IN 2 WEEKS Test Results: Test results from this visit will be discussed in further detail at your follow- up appointment, if applicable. Discharge Plan Admission Admit Date/Time: 12/15/24 22:28 Primary Reason for Your Visit: Bilateral lower extremity lymphedema Attending Provider: Marcellus Gunn Primary Care Provider: Radha Barajas SHIPPING AGENT Consulting Providers: Arlette Grigsby Instructions Additional Instructions / Restrictions: Advised to follow [facility] Discharge Orders/Prescriptions Prescriptions: New midodrine 10 mg tablet 10 mg PO TIDCM 30 Days Qty: 90 0RF Rx Instructions: Hold if SBP more than 100 mmHg insulin lispro [Humalog KwikPen Insulin] 100 unit/mL Insulin Pen See Protocol subcut ACHS Qty: 0 0RF Protocol: 4. Sliding Scale Insulin High-Med Dosing Condition: 150-199 mg/dl = 2 units Condition: 200-259 mg/dl = 4 units Condition: 260-324 mg/dl = 6 units Condition: 325-374 mg/dl = 8 units Condition: 375-409 mg/dl = 10 units Condition: 410-449 mg/dl = 11 units Condition: Greater than 449 call physician Protocol Text: Suggested for: - Patients on Total Daily Insulin Dose of 56-80 units - Patient who are known to be insulin resistant or septic HIGH MEDIUM DOSING ALGORITHM cephalexin 500 mg capsule 500 mg PO TID 2 Days Qty: 6 0RF Continued tamsulosin 0.4 mg capsule 0.4 mg PO QHS guaifenesin [Mucinex] 600 mg tablet extended release 12hr 600 mg PO Q12H PRN (Reason: CONGESTION ) montelukast [Singulair] 10 mg tablet 10 mg PO QHS PRN (Reason: ALLERGIES ) fluticasone propion-salmeterol [Advair HFA] 115-21 mcg/actuation HFA aerosol inhaler 2 puff inhalation BID melatonin 10 mg tablet 10 mg PO QHS (DME) blood sugar diagnostic Kit See Rx Instructions .Route Rx Instructions: As directed omeprazole 20 mg capsule,delayed release(DR/EC) 20 mg PO DAILY Ozempic 2 mg/dose (8 mg/3 mL) pen injector 2 mg subcut QWEEK Rx Instructions: FRIDAY bisacodyl 10 mg suppository 10 mg OR ONCE PRN (Reason: constipation) venlafaxine 37.5 mg tablet 37.5 mg PO BID sennosides [Greer-danyel] 8.6 mg tablet 17.2 mg PO QDAY finasteride [Proscar] 5 mg tablet 5 mg PO QDAY potassium chloride 20 MEQ tablet 20 meq PO DAILYCM 0RF metformin 1,000 mg tablet 1,000 mg PO BID albuterol sulfate 90 mcg/actuation HFA aerosol inhaler 2 puff INHALATION Q4H PRN (Reason: SHORTNESS OF BREATH/WHEEZING ) trazodone 50 mg tablet 150 mg PO QHS atorvastatin 80 mg tablet 80 mg PO QHS levothyroxine 200 mcg tablet 275 mcg PO DAILY furosemide 40 mg tablet 40 mg PO BID metoprolol tartrate 25 mg Tablet 25 mg PO BID Qty: 120 2RF acetaminophen 325 mg capsule 650 mg PO Q6H PRN (Reason: pain) ammonium lactate 12 % cream 1 applic topical BID PRN (Reason: dry skin) AmeriPhor Ointment 1 applic topical DAILY magnesium hydroxide [Dulcolax (magnesium hydroxide)] 400 mg/5 mL suspension 30 ml PO DAILY PRN (Reason: constipation) ondansetron 4 mg tablet,disintegrating 4 mg PO DAILY PRN (Reason: nausea and vomiting) sotalol [Betapace] 120 mg tablet 120 mg PO BID lisinopril 2.5 mg tablet 2.5 mg PO DAILY Changed polyethylene glycol 3350 [Miralax] 17 gram/dose powder 17 g PO DAILY 30 Days Qty: 0 0RF Held glipizide 5 mg tablet 5 mg PO QDAY Hold Instructions: Hold if glucose less than 130 mg/dl insulin glargine [Lantus Solostar U-100 Insulin] 100 unit/mL (3 mL) insulin pen 56 unit subcut QPM Hold Instructions: Hold if glucose less than 130 mg/dl Discontinued doxycycline hyclate 100 mg capsule 100 mg PO BID Referrals / Follow Up: Radha Barajas SHIPPING AGENT, SHIPPING AGENT-C [Primary Care Provider] - Disposition Disposition (needs filled in before D/C Order can be placed): Assisted Living
--- NOTE | 2024-12-18 09:43 | PCM.DC.SUM ---
Providers Date of Admission: 12/15/24 Primary Care Physician: Radha Barajas, UNRULY Consultations 12/15/24 23:05 Consult: Onc/Wound/wharf laborer Routine Comment: Reason for Consult:: LLE stasis wound Reason For Visit: LLE WOUND, HFpEF EXAC Diagnosis Discharge Diagnosis (1) Wound cellulitis: Status: Acute Code(s): L03.90 - Cellulitis, unspecified Plan The patient is a 59 y/o M admitted with left foot wound that has been draining for last couple weeks but started draining #1. Left lower extremity extremity edema by BL LE venous stasis disease complicated with hypotension due to diabetic: Patient admitted in PCU. Patient started on furosemide 40 mg twice daily but got hypotensive in the afternoon 83/44. IV Lasix to be hold and if blood pressure permits then Ferrazone 40 mg twice daily. Midodrine 10 mg 3 times daily started. Discussed with the wound nurse and she thinks mainly venous congestion/edema not cellulitis. On vancomycin and Zosyn titrated down to IV ceftriaxone and doxycycline. Prelim wound culture shows 2+ GPR 12/17: Leg swelling is getting better. Now swelling up to the knee level. 12/18: Leg swelling is much better. Discharged on furosemide 40 mg twice daily. #2. Acute Hypoxia, suspected primarily secondary to SHAHANA, Morbid obesity hypoventilation syndrome, ECHO noted 11/19/[address] [facility] with LV mildly dilated, moderate concentric LVH, LV systolic function normal, EF 63? percent thus will Echo 12/16/2024 suggestive of chronic HFpEF Mild concentric left ventricular hypertrophy. The LV ejection fraction is 65 %. Stage 1 diastolic dysfunction. There is mild biatrial dilatation. The study was technically difficult. 12/17 on 2 L of oxygen pulse ox 98% 12/18: Patient's blood pressure is still 104/7054. On midodrine 10 mg 3 times daily advised to hold if SBP more than 100 mmHg. Prescription for midodrine given. #3. Chronic COPD/asthma with allergic rhinitis: Current ATC duonebs, PRN albuterol, HOB, IS parameters, continue home montelukast regimen. #4. Chronic microcytic anemia/iron deficiency anemia: Admission hemoglobin 8.6, MCV 73.3, baseline hemoglobin noted previously 11/30/2024 9.4 and prior to this 03/31/2024 hemoglobin 11.7, has trended downward, currently does not appear to be listed on antiplatelet therapy, potentially bleed related, will obtain iron panel, ferritin, guaiac to be cautious and trend CBC. 12/17 H&H 7.9/19.8%. Platelet count 197K. #5. History NSVT: Will continue patient on sotalol and metoprolol regimen, following with EP cardiology per most recent cardiology note 11/19/2024. #6. CAD: Status post previous PCI LAD PTCA/bare-metal stent 2020, will continue patient home metoprolol, lisinopril, statin therapy, clarifying antiplatelet regimen. #7. Diabetes mellitus type II complicated with hypoglycemia: A1c 5.3, glucose 42. Most recent glucose is 101, 126, 112. Hold scheduled insulin. Accu-Chek AC and at bedtime incorrigible of sliding 12/17: # He has hypoglycemia with glucose dropping to 42 in BMP. Did not getting any insulin. On hypoglycemia protocol. 12/18 patient glucose still about 119, 1908. Advised to hold his scheduled Lantus insulin. Discharged on sliding scale hemoglobin splint, prescription given #8. Anxiety and depression: = continue patient home venlafaxine and low-dose trazodone regimen with hold for sedation if necessary. #9. Hypertension: continue patient home sotalol, lisinopril IV Lasix as noted. As needed IV hydralazine. #10. Hyperlipidemia: Lipid profile shows HDL 32, LDL 23, total cholesterol 72. #11. Hypothyroidism: Status post previous thyroidectomy, resulting hypothyroidism, will continue patient home levothyroxine regimen. #12. Former tobacco usage: Encourage continued tobacco cessation. #13. Morbid Obesity: Weight loss and lifestyle changes encouraged. #14. SHAHANA: continue CPAP nightly. #15. BPH with obstructive pathology: Will continue patient on Flomax and finasteride regimen, monitor for urinary retention. #16. GERD: Will continue patient on PPI. #17. DVT prophylaxis: SCDs, clarifying why patient is not on antiplatelet therapies and given worsening anemia will hold off on chemoprophylaxis, add if workup unremarkable and noted to be clinically appropriate. #18. CODE status: Patient HCPOA and living will are not in place but he notes his daughter would be his medical decision-maker if necessary. Discussed CODE status at length including difference between FULL code, DNR-CCA and DNR-CC status. Following discussions about the differences in these status, requested Full Code status. Discharge medication reconciliation done. Discharge follow-up instructions completed. Discharge process discussed with the patient and all questions were answered to patient's satisfaction. Follow with PCP in 1 to 2 weeks Total time spent, exact 35 minutes on discharge meds reconciliation, examination, coordination of care with nurses and ancillary staff, review of imaging and blood test and discussion with the patient on follow-up instructions. Clinical Impression(s) from Imaging Studies Chest X-Ray 12/15/24 20:40 IMPRESSION: Findings compatible with CHF/volume overload. Reading Location: [id number] Echocardiogram 12/15/24 23:05 Interpretation Summary Mild concentric left ventricular hypertrophy. The LV ejection fraction is 65 %. Stage 1 diastolic dysfunction. There is mild biatrial dilatation. The study was technically difficult. 12/15/24 23:30 Wound - Leg, Left Gram Stain - Final Laboratory Results 12/15/24 19:00: WBC 11.5 H, RBC 4.31 L, Hgb 8.6 L, Hct 31.6 L, MCV 73.3 L, MCH 20.0 L, MCHC 27.2 L, RDW Std Deviation 53.4 H, RDW Coeff of Jovany 20.6 H, Plt Count 217, MPV 9.4, Immature Gran % (Auto) 0.300, Neut % (Auto) 78.6 H, Lymph % (Auto) 12.0 L, [place] % (Auto) 7.7, Eos % (Auto) 1.1, Baso % (Auto) 0.3, Absolute Neuts (auto) 9.0 H, Absolute Lymphs (auto) 1.38, Nucleated RBC % 0, Differential Comment SCANNED, Platelet Estimate ADEQUATE, Polychromasia 1+, Anisocytosis 1+, Sodium 133, Potassium 4.4, Chloride 92 L, Carbon Dioxide 30.8, Anion Gap 10, BUN 14, Creatinine 0.73, Estim Creat Clear Calc 165.21, Est GFR (MDRD) Non-Af 105, BUN/Creatinine Ratio 19.3, Glucose 116 H, Calcium 8.9, Magnesium 2.1, NT pro BNP II 220, Procalcitonin 0.10 06/25/25 20:57: Lactic Acid 2.2 H* 12/16/24 05:00: WBC 10.8, RBC 3.98 L, Hgb 7.9 L, Hct 29.9 L, MCV 75.1 L, MCH 19.8 L, MCHC 26.4 L, RDW Std Deviation 55.1 H, RDW Coeff of Jovany 20.4 H, Plt Count 197, MPV 9.3, Immature Gran % (Auto) 0.300, Neut % (Auto) 79.2 H, Lymph % (Auto) 11.6 L, [place] % (Auto) 7.2, Eos % (Auto) 1.3, Baso % (Auto) 0.4, Absolute Neuts (auto) 8.6 H, Absolute Lymphs (auto) 1.25, Nucleated RBC % 0, Anisocytosis 2+, Sodium 137, Potassium 4.0, Chloride 96 L, Carbon Dioxide 30.2, Anion Gap 11, BUN 14, Creatinine 0.66 L, Estim Creat Clear Calc 181.02, Est GFR (MDRD) Non-Af 108, BUN/Creatinine Ratio 21.5 H, Glucose 42 L*, Hemoglobin A1c 5.3, Lactic Acid 1.6, Calcium 8.3, Iron 20 L, TIBC 295, Iron Saturation 7.0 L, Unsaturated IBC 275, Ferritin 12 L, Total Bilirubin 0.49, AST 24, ALT 17, Alkaline Phosphatase 251 H, Total Protein 6.9, Albumin 3.2 L, Globulin 3.7, Albumin/Globulin Ratio 0.9, Triglycerides 83, Cholesterol 72, LDL Cholesterol, Calc 23, VLDL Cholesterol 17, HDL Cholesterol 32 L, Cholesterol/HDL Ratio 2.25, TSH 8.580 H 12/16/24 06:25: POC Glucose 39 L* 12/16/24 06:50: POC Glucose 100 12/16/24 09:01: POC Glucose 54 L 12/16/24 09:47: POC Glucose 112 H 12/16/24 11:43: POC Glucose 126 H 12/16/24 12:05: MRSA (PCR) Pending 12/16/24 15:00: POC Glucose 101 Medications at Discharge Home Medications potassium chloride 20 mEq tablet,extended release(part/cryst) 20 meq PO DAILYCM SUPPLEMENT 04/23/19 metformin 1,000 mg tablet 1,000 mg PO BID DIABETES 01/18/21 tamsulosin 0.4 mg capsule 0.4 mg PO QHS PROSTATE 02/05/21 albuterol sulfate 90 mcg/actuation aerosol inhaler 2 puff inhalation Q4H PRN SHORTNESS OF BREATH/WHEEZING 02/11/21 montelukast 10 mg tablet (Singulair) 10 mg PO QHS PRN ALLERGIES 01/10/22 guaifenesin 600 mg tablet, extended release 12 hr (Mucinex) 600 mg PO Q12H PRN CONGESTION 02/04/22 fluticasone propionate 115 mcg-salmeterol 21 mcg/actuation HFA inhaler (Advair HFA) 2 puff inhalation BID COPD 07/31/22 blood sugar diagnostic 11/25/22 atorvastatin 80 mg tablet 80 mg PO QHS CHOLESTEROL 11/18/23 metoprolol tartrate 25 mg tablet 25 mg PO BID #120 tabs 03/31/24 levothyroxine 200 mcg tablet 275 mcg PO DAILY THYROID 07/07/24 omeprazole 20 mg capsule,delayed release 20 mg PO DAILY GERD 07/13/24 semaglutide 2 mg/dose (8 mg/3 mL) subcutaneous pen injector (Ozempic) 2 mg subcut QWEEK DIABETES 07/13/24 insulin glargine 100 unit/mL (3 mL) subcutaneous pen (Lantus Solostar U-100 Insulin) 56 unit subcut QPM 09/13/24 Held on 12/18/24. Instructions: Hold if glucose less than 130 mg/dl lisinopril 2.5 mg tablet 2.5 mg PO DAILY 10/20/24 finasteride 5 mg tablet (Proscar) 5 mg PO QDAY 11/11/24 glipizide 5 mg tablet 5 mg PO QDAY 11/11/24 Held on 12/18/24. Instructions: Hold if glucose less than 130 mg/dl melatonin 10 mg tablet 10 mg PO QHS SLEEP 11/11/24 sennosides 8.6 mg tablet (Greer-danyel) 17.2 mg PO QDAY 11/11/24 trazodone 50 mg tablet 150 mg PO QHS SLEEP 11/11/24 bisacodyl 10 mg rectal suppository 10 mg NJ ONCE PRN constipation 11/19/24 furosemide 40 mg tablet 40 mg PO BID EDEMA 11/19/24 venlafaxine 37.5 mg tablet 37.5 mg PO BID 11/19/24 acetaminophen 325 mg capsule 650 mg PO Q6H PRN pain 11/30/24 ammonium lactate 12 % topical cream 1 applic topical BID PRN dry skin 11/30/24 magnesium hydroxide 400 mg/5 mL oral suspension (Dulcolax (magnesium hydroxide)) 30 ml PO DAILY PRN constipation 11/30/24 mineral oil-hydrophil petrolat topical ointment (AmeriPhor topical ointment) 1 applic topical DAILY 11/30/24 ondansetron 4 mg disintegrating tablet 4 mg PO DAILY PRN nausea and vomiting 11/30/24 sotalol 120 mg tablet (Betapace) 120 mg PO BID 11/30/24 cephalexin 500 mg capsule 500 mg PO TID 2 days #6 caps 12/18/24 insulin lispro 100 unit/mL subcutaneous pen (Humalog KwikPen (U-100) Insulin) See Protocol subcut ACHS #0 mL 12/18/24 insulin lispro 100 unit/mL subcutaneous pen (Humalog KwikPen (U-100) Insulin) See Protocol subcut ACHS 1 month #15 mL 12/18/24 midodrine 10 mg tablet 10 mg PO TIDCM 30 days #90 tabs 12/18/24 needle (disp) 32 gauge 32 gauge x 5/16 #100 ea 12/18/24 polyethylene glycol 3350 17 gram/dose oral powder (Miralax) 17 g PO DAILY Constipation 30 days #0 grams 12/18/24 Physical Exam Narrative Seen and examined Blood pressure is above systolic 100. Bilateral leg swellings have improved no fever. Hypoglycemia corrected Physical exam General: Alert, Oriented x3, Cooperative. Morbid obesity BMI 44.6 kg/m? HEENT: Atraumatic, PERRLA, EOMI, Normocephalic. Oral: No Gingival or Mucosal Lesions/ Ulcerations Neck: Supple, No JVD, Negative Carotid Bruits Chest wall/Lungs: Air entry diminished in bilateral lung bases. No crepitation/rhonchi Cardiovascular: Regular rate and rhythm, Normal S1,S2, No M/G/R Abdomen: Bowel Sounds Present, Soft, Non Tender, Non-Distended : No dysuria. No renal angle tenderness. No suprapubic tenderness. Extremities: Lower extremity edema have improved. Continue David wrap and, Capillary Refill Less than 3 Seconds Skin: Bilateral venous congestion suggestive of venous hypertension/stasis Musculoskeletal: Bilateral lower extremity swelling up to knee level with chronic skin/subcutaneous thickening Neurological: Cranial nerves II-XII grossly intact, DTR 2+/4. No acute focal neurological deficit. Psych/Mental Status: Flat affect Weight / BMI Weight Weight: 332 lb 14.368 oz Body Mass Index (BMI) 45.1 ABG / Lab / Microbiology Data 12/16/24 05:00 12/16/24 05:00 Laboratory: Laboratory Results - last 24 hr 12/17/24 10:53: POC Glucose 125 H 12/17/24 16:26: POC Glucose 119 H 12/17/24 22:02: POC Glucose 99 12/18/24 06:12: POC Glucose 108 H Microbiology: Microbiology 12/15/24 20:56 Blood Culture (Wb) - Anticubital Left Blood Culture - Preliminary No growth in 48 hours. 12/15/24 19:00 Blood Culture (Wb) - Right Forearm Blood Culture - Preliminary No growth in 48 hours. 12/15/24 23:30 Wound - Leg, Left Gram Stain - Final 12/15/24 23:30 Wound - Leg, Left Wound Culture - Preliminary Mixed Gram Pos & Gram Neg Org 12/15/24 23:30 Wound - Leg, Left Skin and Soft Tissue MRSA/MSSA (PCR - Final D/C Instructions Discharge Diet: - (Diet: Cardiac: Calorie-Controlled Food consistency:: Regular Liquid Consistency:: Regular/Thin Fluid restriction:: 1500 mL How many daily calories?: 1800 calorie) Weight Bearing Status: Weight bearing as tolerated Call your doctor if you observe: Fever of 101 or Higher, Coldness, Increased Pain, Numbness or Tingling, Change in Color, Inability to urinate, Inability to have a bowel movement, Shortness of breath, Dizziness, Fainting spells, Swelling in the ankles, Chest pain, Prolonged hiccupping, Increased palpitations (irregular heartbeat) and Calf discomfort DC O2, CPAP, BIPAP Needs Home O2 Discharge instructions: Yes Type of respiratory needs?: Oxygen Oxygen frequency: Continuous Continuous oxygen liters per minute: 2 DC home with Oxygen: Yes Home O2 MD Review: I have reviewed the oxygen testing, and the patient qualifies for home oxygen equipment and portability. The patient is mobile in the home and the community. When: IN 2 WEEKS Meaningful Use Info Meaningful Use Meaningful Use Diagnoses (Choose all that apply): None applicable Ischemic Stroke Statin Dosing Therapy Reference: STATIN DOSE THERAPY REFERENCE: * Patients > 75 years receive moderate or high dose statin therapy. * Patients 75 years or YOUNGER should receive HIGH intensity statin dose unless contraindicated. You will be required to document reason for non-treatment if statin daily dose does not meet guidelines. HIGH DOSE STATIN THERAPY DAILY Atorvastatin > than or = to 40 mg Rosuvastatin > than or = to 20 mg Amlodipine + Atorvastatin > than or = to 2.5/40 mg Ezetimibe + Simvastatin 10/80 mg Simvastatin 80mg Discharge Plan Admission Admit Date/Time: 12/15/24 22:28 Primary Reason for Your Visit: Bilateral lower extremity lymphedema Attending Provider: Marcellus Gunn Primary Care Provider: Radha Barajas ECHOCARDIOGRAPHY TECHNOLOGIST Consulting Providers: Arlette Grigsby Instructions Additional Instructions / Restrictions: Advised to follow [place] [facility]ound center Discharge Orders/Prescriptions Prescriptions: New midodrine 10 mg tablet 10 mg PO TIDCM 30 Days Qty: 90 0RF Rx Instructions: Hold if SBP more than 100 mmHg insulin lispro [Humalog KwikPen Insulin] 100 unit/mL Insulin Pen See Protocol subcut ACHS Qty: 0 0RF Protocol: 4. Sliding Scale Insulin High-Med Dosing Condition: 150-199 mg/dl = 2 units Condition: 200-259 mg/dl = 4 units Condition: 260-324 mg/dl = 6 units Condition: 325-374 mg/dl = 8 units Condition: 375-409 mg/dl = 10 units Condition: 410-449 mg/dl = 11 units Condition: Greater than 449 call physician Protocol Text: Suggested for: - Patients on Total Daily Insulin Dose of 56-80 units - Patient who are known to be insulin resistant or septic HIGH MEDIUM DOSING ALGORITHM cephalexin 500 mg capsule 500 mg PO TID 2 Days Qty: 6 0RF insulin lispro [Humalog KwikPen Insulin] 100 unit/mL insulin pen See Protocol subcut ACHS 30 Days Qty: 15 2RF Protocol: 4. Sliding Scale Insulin High-Med Dosing Condition: 150-199 mg/dl = 2 units Condition: 200-259 mg/dl = 4 units Condition: 260-324 mg/dl = 6 units Condition: 325-374 mg/dl = 8 units Condition: 375-409 mg/dl = 10 units Condition: 410-449 mg/dl = 11 units Condition: Greater than 449 call physician Protocol Text: Suggested for: - Patients on Total Daily Insulin Dose of 56-80 units - Patient who are known to be insulin resistant or septic HIGH MEDIUM DOSING ALGORITHM Rx Instructions: Hold if glucose less than 130 mg/dl (DME) needle (disp) 32 gauge 32 gauge x 5/16 needle See Rx Instructions .ROUTE .MEDSUPPLY Qty: 100 2RF Rx Instructions: As directed Continued tamsulosin 0.4 mg capsule 0.4 mg PO QHS guaifenesin [Mucinex] 600 mg tablet extended release 12hr 600 mg PO Q12H PRN (Reason: CONGESTION ) montelukast [Singulair] 10 mg tablet 10 mg PO QHS PRN (Reason: ALLERGIES ) fluticasone propion-salmeterol [Advair HFA] 115-21 mcg/actuation HFA aerosol inhaler 2 puff inhalation BID melatonin 10 mg tablet 10 mg PO QHS (DME) blood sugar diagnostic Kit See Rx Instructions .Route Rx Instructions: As directed omeprazole 20 mg capsule,delayed release(DR/EC) 20 mg PO DAILY Ozempic 2 mg/dose (8 mg/3 mL) pen injector 2 mg subcut QWEEK Rx Instructions: FRIDAY bisacodyl 10 mg suppository 10 mg [place] ONCE PRN (Reason: constipation) venlafaxine 37.5 mg tablet 37.5 mg PO BID sennosides [Greer-danyel] 8.6 mg tablet 17.2 mg PO QDAY finasteride [Proscar] 5 mg tablet 5 mg PO QDAY potassium chloride 20 MEQ tablet 20 meq PO DAILYCM 0RF metformin 1,000 mg tablet 1,000 mg PO BID albuterol sulfate 90 mcg/actuation HFA aerosol inhaler 2 puff INHALATION Q4H PRN (Reason: SHORTNESS OF BREATH/WHEEZING ) trazodone 50 mg tablet 150 mg PO QHS atorvastatin 80 mg tablet 80 mg PO QHS levothyroxine 200 mcg tablet 275 mcg PO DAILY furosemide 40 mg tablet 40 mg PO BID metoprolol tartrate 25 mg Tablet 25 mg PO BID Qty: 120 2RF acetaminophen 325 mg capsule 650 mg PO Q6H PRN (Reason: pain) ammonium lactate 12 % cream 1 applic topical BID PRN (Reason: dry skin) AmeriPhor Ointment 1 applic topical DAILY magnesium hydroxide [Dulcolax (magnesium hydroxide)] 400 mg/5 mL suspension 30 ml PO DAILY PRN (Reason: constipation) ondansetron 4 mg tablet,disintegrating 4 mg PO DAILY PRN (Reason: nausea and vomiting) sotalol [Betapace] 120 mg tablet 120 mg PO BID lisinopril 2.5 mg tablet 2.5 mg PO DAILY Changed polyethylene glycol 3350 [Miralax] 17 gram/dose powder 17 g PO DAILY 30 Days Qty: 0 0RF Held glipizide 5 mg tablet 5 mg PO QDAY Hold Instructions: Hold if glucose less than 130 mg/dl insulin glargine [Lantus Solostar U-100 Insulin] 100 unit/mL (3 mL) insulin pen 56 unit subcut QPM Hold Instructions: Hold if glucose less than 130 mg/dl Discontinued doxycycline hyclate 100 mg capsule 100 mg PO BID Referrals / Follow Up: Radha Barajas ECHOCARDIOGRAPHY TECHNOLOGIST, ECHOCARDIOGRAPHY TECHNOLOGIST-C [Primary Care Provider] - Disposition Disposition (needs filled in before D/C Order can be placed): Assisted Living Charges/Coding Visit Charges Inpatient E&M: 32008 Disch Hosp >30min
--- NOTE | 2024-12-20 09:01 | CASEMGMT ---
Addendum entered by Yudi Mix 12/20/24 10:09: [facility], and [facility] declined. [facility] accepted. Pt is agreeable to proceeding with [facility]. All other referrals cancelled. Per [facility], they are unable to assist pt d/t not having supplies. SW updated. Yudi Mix DC Planning Asst. Original Note: Discharge Planning HH referral sent to [facility], [facility], [facility], [facility], [facility], and [facility]. Yudi Mix DC Planning Asst.
== END 2024-12-18 11:10 | disposition home or self-care (01) | DRG 300 ==
LOC: ED 20:48 → PCU 22:52
PROVIDERS: Admitting Provider Family Medicine; Emergency Provider Surgery; PCP Nurse Practitioner Adult Health; Visit Provider Internal Medicine
DX: E11.59 Type 2 diabetes mellitus with other circulatory complications (principal); E66.2 Morbid (severe) obesity with alveolar hypoventilation; I87.332 Chronic venous hypertension (idiopathic) with ulcer and inflammation of left lower extremity; I47.10 Supraventricular tachycardia, unspecified; L97.929 Non-pressure chronic ulcer of unspecified part of left lower leg with unspecified severity; I50.32 Chronic diastolic (congestive) heart failure; Z68.41 Body mass index [BMI] 40.0-44.9, adult; N13.8 Other obstructive and reflux uropathy; E11.622 Type 2 diabetes mellitus with other skin ulcer; D50.9 Iron deficiency anemia, unspecified; J44.9 Chronic obstructive pulmonary disease, unspecified; E89.0 Postprocedural hypothyroidism; F32.A Depression, unspecified; E11.649 Type 2 diabetes mellitus with hypoglycemia without coma; E11.65 Type 2 diabetes mellitus with hyperglycemia; E78.5 Hyperlipidemia, unspecified; Z79.4 Long term (current) use of insulin; I25.10 Atherosclerotic heart disease of native coronary artery without angina pectoris; K21.9 Gastro-esophageal reflux disease without esophagitis; I95.9 Hypotension, unspecified; I87.321 Chronic venous hypertension (idiopathic) with inflammation of right lower extremity; J30.9 Allergic rhinitis, unspecified; Z79.84 Long term (current) use of oral hypoglycemic drugs; N40.1 Benign prostatic hyperplasia with lower urinary tract symptoms; Z79.890 Hormone replacement therapy; Z79.899 Other long term (current) drug therapy; Z79.51 Long term (current) use of inhaled steroids; Z79.85 Long-term (current) use of injectable non-insulin antidiabetic drugs; Z95.5 Presence of coronary angioplasty implant and graft; Z87.891 Personal history of nicotine dependence
CPT/HCPCS: 36415; 71046; 80048; 80053; 80061; 82728; 82962; 83036; 83540; 83550; 83605; 83735; 83880; 84145; 84443; 85025; 87040; 87070; 87077; 87186; 87205; 87640; 87641; 93306; 94640; 94668; 97162; 97166; 99285; Q9957; A4216; C8929; J0295; J1938

== ENCOUNTER 2024-12-23 12:52 | Inpatient (IN) | payer MEDICARE, MEDICAID, SELFPAY ==
[2024-12-23] VITALS (15 sets, daily range): BP systolic 95–125; BP diastolic 42–68; PULSE 75–85; RESP 16–20; TEMP 36.3–37.3; O2SAT 82–100; BMI 43.7; BMI 43.2
--- NOTE | 2024-12-23 13:03 | EKG12_ITS ---
Test Reason : SOB Blood Pressure : */* mmHG Vent. Rate : 80 BPM Atrial Rate : 80 BPM P-R Int : 176 ms QRS Dur : 86 ms QT Int : 372 ms P-R-T Axes : 51 5 46 degrees QTcB Int : 429 ms Normal sinus rhythm Low voltage QRS Borderline ECG Confirmed by JOSE ALEJANDRO HODGES, MYRIAM ([id number]), international editorial producer ELODIA FARRAR ([id number]) on 12/27/2024 10:23:09 AM Referred By: Alex Mccray Confirmed By: MYRIAM BLOUNT MD
--- NOTE | 2024-12-23 13:11 | ED.VIS.DYS ---
HPI <Dr. Alex Mccray, DO - Last Filed: 12/23/24 17:03> History of Present Illness Chief Complaint: Shortness of Breath Informant: patient Onset/Context/Timing Onset: Month(s) (1) Context: gradual Timing: Continuous Quality: Positive for Dyspnea on exertion and Orthopnea Worsened by: Exertion and Lying flat Relieved by: Rest Narrative Narrative: Patient presents with shortness of breath that has been getting worse over the past month. Patient states his breathing is worse with any exertion. Patient states it is worse after he sleeps. Patient states it is better with rest. Patient denies any cough. Patient denies any chest pain. Patient denies any fevers or chills. Patient denies any sore throat or rhinorrhea. Patient denies any recent travel or recent surgery. Patient denies any history of blood clots or cancer. PE Risk Factors: Negative for Cancer, OCP + Smoking + > 35, Prior DVT or PE, Recent immobilization, Recent surgery or Recent travel [facility] <Dr. Alex Mccray, DO - Last Filed: 12/23/24 17:03> [facility] Medical History Redness of skin Thyroid disease Insulin dependent diabetes mellitus Anemia Hepatitis High cholesterol Difficulty swallowing History of diverticulitis Chronic cough History of pain when walking History of stress test History of irregular heartbeat Cellulitis Sleep apnea Lives in assisted living facility Wears glasses Wears dentures Depression Low iron Fatty liver Syncope Dietary restriction CPAP (continuous positive airway pressure) dependence Shortness of breath on exertion History of edema History of echocardiogram Cardiology follow-up encounter Tumor Atherosclerosis of coronary artery of [place] heart without angina pectoris Kidney stones COPD (chronic obstructive pulmonary disease) Former smoker Irregular heart beat NSVT (nonsustained ventricular tachycardia) Diabetes Asthma Hypothyroidism Hypertension Home Medications ?Medication ?Instructions ?Recorded ?Last Taken ?Type potassium chloride 20 mEq 20 meq PO DAILYCM SUPPLEMENT 04/23/19 12/30/23 Rx tablet,extended release(part/cryst) metformin 1,000 mg tablet 1,000 mg PO BID DIABETES 01/18/21 12/30/23 History tamsulosin 0.4 mg capsule 0.4 mg PO QHS PROSTATE 02/05/21 12/29/23 History albuterol sulfate 90 mcg/actuation 2 puff inhalation Q4H PRN 02/11/21 Unknown History aerosol inhaler SHORTNESS OF BREATH/WHEEZING montelukast 10 mg tablet 10 mg PO QHS PRN ALLERGIES 01/10/22 12/29/23 History (Singulair) guaifenesin 600 mg tablet, 600 mg PO Q12H PRN CONGESTION 02/04/22 11/18/23 History extended release 12 hr (Mucinex) fluticasone propionate 115 2 puff inhalation BID COPD 07/31/22 12/30/23 History mcg-salmeterol 21 mcg/actuation HFA inhaler (Advair HFA) blood sugar diagnostic 11/25/22 Unknown History atorvastatin 80 mg tablet 80 mg PO QHS CHOLESTEROL 11/18/23 12/29/23 History metoprolol tartrate 25 mg tablet 25 mg PO BID #120 tabs 03/31/24 10/20/24 Rx levothyroxine 200 mcg tablet 275 mcg PO DAILY THYROID 07/07/24 10/20/24 History omeprazole 20 mg capsule,delayed 20 mg PO DAILY GERD 07/13/24 10/20/24 History release semaglutide 2 mg/dose (8 mg/3 mL) 2 mg subcut QWEEK DIABETES 07/13/24 10/06/24 History subcutaneous pen injector (Ozempic) insulin glargine 100 unit/mL (3 56 unit subcut QPM 09/13/24 Unknown History mL) subcutaneous pen (Lantus Solostar U-100 Insulin) lisinopril 2.5 mg tablet 2.5 mg PO DAILY 10/20/24 Unknown History finasteride 5 mg tablet (Proscar) 5 mg PO QDAY 11/11/24 Unknown History glipizide 5 mg tablet 5 mg PO QDAY 11/11/24 Unknown History melatonin 10 mg tablet 10 mg PO QHS SLEEP 11/11/24 Unknown History sennosides 8.6 mg tablet (Greer-danyel) 17.2 mg PO QDAY 11/11/24 Unknown History trazodone 50 mg tablet 100 mg PO QHS SLEEP 11/11/24 Unknown History bisacodyl 10 mg rectal suppository 10 mg HI ONCE PRN constipation 11/19/24 Unknown History furosemide 40 mg tablet 40 mg PO BID EDEMA 11/19/24 Unknown History venlafaxine 37.5 mg tablet 37.5 mg PO BID 11/19/24 Unknown History acetaminophen 325 mg capsule 650 mg PO Q6H PRN pain 11/30/24 Unknown History ammonium lactate 12 % topical cream 1 applic topical BID PRN dry skin 11/30/24 Unknown History magnesium hydroxide 400 mg/5 mL 30 ml PO DAILY PRN constipation 11/30/24 Unknown History oral suspension (Dulcolax (magnesium hydroxide)) mineral oil-hydrophil petrolat 1 applic topical DAILY 11/30/24 Unknown History topical ointment (AmeriPhor topical ointment) ondansetron 4 mg disintegrating 4 mg PO DAILY PRN nausea and 11/30/24 Unknown History tablet vomiting sotalol 120 mg tablet (Betapace) 120 mg PO BID 11/30/24 Unknown History cephalexin 500 mg capsule 500 mg PO TID 2 days #6 caps 12/18/24 Unknown Rx insulin lispro 100 unit/mL See Protocol subcut ACHS #0 mL 12/18/24 Unknown Rx subcutaneous pen (Humalog KwikPen (U-100) Insulin) insulin lispro 100 unit/mL See Protocol subcut ACHS 1 month 12/18/24 Unknown Rx subcutaneous pen (Humalog KwikPen #15 mL (U-100) Insulin) midodrine 10 mg tablet 10 mg PO TIDCM 30 days #90 tabs 12/18/24 Unknown Rx needle (disp) 32 gauge 32 gauge x #100 ea 12/18/24 Unknown Rx 5/16 polyethylene glycol 3350 17 17 g PO DAILY Constipation 30 days 12/18/24 10/19/24 Rx gram/dose oral powder (Miralax) #0 grams Allergy/AdvReac Type Severity Reaction Status Date / Time No Known Allergies Allergy Verified 12/22/24 10:52 Family History (Reviewed 12/22/24 @ 12:01 by Claudia Urena SUEDING AND BUFFING MACHINE OPERATOR, SUEDING AND BUFFING MACHINE OPERATOR-C) Father Heart disease Hypertension Mother Brain aneurysm Surgical History History of cardiac catheterization Hx of colonoscopy History of coronary artery stent placement (01/18/21) History of thyroidectomy Social History household members: other details: Assisted living housing: assisted living facility current occupational status: disabled Smoking Status: Former smoker how long ago did patient quit smokin years ago alcohol intake: never substance use type: does not use caffeine: Yes Type: carbonated beverages ROS <Dr. Alex Mccray, DO - Last Filed: 12/23/24 17:03> ROS ED Constitutional Constitutional ED: Denies chills or fever(s) Eyes Eyes: Denies blurry vision or change in vision ENT ENT ED: Denies rhinorrhea or sore throat Cardiovascular Cardiovascular: Denies chest pain or palpitations Respiratory/Chest Respiratory/Chest: Reports cough and dyspnea Gastrointestinal Gastrointestinal: Reports nausea; Denies vomiting Genitourinary Genitourinary ED: Denies dysuria or hematuria Musculoskeletal Musculoskeletal: Reports back pain; Denies neck pain Integumentary Reports rash; Denies abscess Neurologic Neurologic: Denies headache(s) or weakness Allergic/Immunologic Allergic/Immunologic ED: Denies mouth swelling or urticaria EXAM <Dr. Alex Mccray, DO - Last Filed: 12/23/24 17:03> Physical Exam Const Vital Signs: 12/23/24 12:53 12/23/24 12:56 12/23/24 13:18 Temperature 99.0 F 99 F Temperature Source Oral Oral Pulse Rate 85 85 Respiratory Rate 16 16 Respiratory Effort Respiratory Depth Respiratory Pattern Blood Pressure 125/59 H 125/59 H Blood Pressure Mean 81 81 Pulse Ox 82 91 91 Oxygen Delivery Method Room Air Nasal Cannula Nasal Cannula Oxygen Flow Rate (L/min) 2 2 12/23/24 14:00 12/23/24 15:00 12/23/24 15:05 Temperature 99 F 99 F Temperature Source Oral Oral Pulse Rate 83 83 Respiratory Rate 16 17 Respiratory Effort Short of Breath Respiratory Depth Respiratory Pattern Normal Blood Pressure 123/68 H 114/61 Blood Pressure Mean 86 78 Pulse Ox 100 100 Oxygen Delivery Method Nasal Cannula Nasal Cannula Oxygen Flow Rate (L/min) 2 2 12/23/24 15:05 12/23/24 15:10 12/23/24 15:52 Temperature 99.1 F Temperature Source Oral Pulse Rate 81 Respiratory Rate 19 H Respiratory Effort Short of Breath Respiratory Depth Normal Respiratory Pattern Normal Blood Pressure 114/61 Blood Pressure Mean 78 Pulse Ox 97 96 Oxygen Delivery Method Room Air Nasal Cannula Nasal Cannula Oxygen Flow Rate (L/min) 1 1 12/23/24 16:00 12/23/24 17:00 12/23/24 18:00 Temperature 99.0 F 99.1 F Temperature Source Oral Oral Pulse Rate 79 80 78 Respiratory Rate 19 H 19 H Respiratory Effort Respiratory Depth Respiratory Pattern Blood Pressure 114/64 114/64 111/58 L Blood Pressure Mean 80 80 75 Pulse Ox 97 99 Oxygen Delivery Method Nasal Cannula Nasal Cannula Oxygen Flow Rate (L/min) 1 1 Positive well nourished and well developed Constitutional Narrative: BMI is 43.7 General Appearance ED: well developed and NAD HEENT Reports moist mucous membranes Neck supple and no JVD Resp normal respiratory effort Auscultation: diminished lung sounds Cardio regular rate and regular rhythm GI non-tender and non-distended Palpation: soft Extremity normal to inspection Extremity Narrative: There is pitting edema of the lower extremities bilaterally. There is some mild erythema on the left lower leg. There is no calf tenderness. Neuro oriented x3, CN's II-XII intact bilaterally and no sensory deficits noted [place] Coma Scale: document GCS findings Spontaneous Obeys Commands Oriented 15 Sensorium / Orientation: alert Speech: speech normal Sensory Exam: sensory level loss detected Motor Exam: strength 5/5 throughout Psych mental status grossly normal <Dr. Antoine Hahn MD - Last Filed: 12/23/24 18:52> Physical Exam Const Vital Signs: 12/23/24 12:53 12/23/24 12:56 12/23/24 13:18 Temperature 99.0 F 99 F Temperature Source Oral Oral Pulse Rate 85 85 Respiratory Rate 16 16 Respiratory Effort Respiratory Depth Respiratory Pattern Blood Pressure 125/59 H 125/59 H Blood Pressure Mean 81 81 Pulse Ox 82 91 91 Oxygen Delivery Method Room Air Nasal Cannula Nasal Cannula Oxygen Flow Rate (L/min) 2 2 12/23/24 14:00 12/23/24 15:00 12/23/24 15:05 Temperature 99 F 99 F Temperature Source Oral Oral Pulse Rate 83 83 Respiratory Rate 16 17 Respiratory Effort Short of Breath Respiratory Depth Respiratory Pattern Normal Blood Pressure 123/68 H 114/61 Blood Pressure Mean 86 78 Pulse Ox 100 100 Oxygen Delivery Method Nasal Cannula Nasal Cannula Oxygen Flow Rate (L/min) 2 2 12/23/24 15:05 12/23/24 15:10 12/23/24 15:52 Temperature 99.1 F Temperature Source Oral Pulse Rate 81 Respiratory Rate 19 H Respiratory Effort Short of Breath Respiratory Depth Normal Respiratory Pattern Normal Blood Pressure 114/61 Blood Pressure Mean 78 Pulse Ox 97 96 Oxygen Delivery Method Room Air Nasal Cannula Nasal Cannula Oxygen Flow Rate (L/min) 1 1 12/23/24 16:00 12/23/24 17:00 12/23/24 18:00 Temperature 99.0 F 99.1 F Temperature Source Oral Oral Pulse Rate 79 80 78 Respiratory Rate 19 H 19 H Respiratory Effort Respiratory Depth Respiratory Pattern Blood Pressure 114/64 114/64 111/58 L Blood Pressure Mean 80 80 75 Pulse Ox 97 99 Oxygen Delivery Method Nasal Cannula Nasal Cannula Oxygen Flow Rate (L/min) 1 1 Neuro [place] Coma Scale: document GCS findings 15 MDM <Dr. Alex Mccray, DO - Last Filed: 12/23/24 17:03> [facility] Narrative Medical decision making narrative: Differential diagnosis includes congestive heart failure, pneumonia, bronchitis, cellulitis, sepsis, cardiac dysrhythmia, cardiac ischemia, and anxiety. EKG will be obtained to assess for cardiac dysrhythmia and cardiac ischemia. Chest x-ray will be obtained to assess for pneumonia, bronchitis, and congestive heart failure. CBC will be obtained to assess for leukocytosis and anemia. Basic metabolic profile will be obtained to assess for electrolyte abnormality and renal function. Serum lactate will be obtained to assess for sepsis. High-sensitivity troponin will be obtained to assess for cardiac ischemia. BNP will be obtained to assess for congestive heart failure. 2-hour repeat high-sensitivity troponin will be obtained to assess for ongoing cardiac ischemia. Urinalysis will be obtained to assess for urinary tract infection. History & Record Review Additional record(s) reviewed:: Prior outpatient record (Patient had echocardiogram on 12/15/2024 which showed an ejection fraction of 65%.) and Prior labs Lab Data Attestation: I reviewed the patient's lab results. Lab results narrative: CBC was reviewed. Hemoglobin was slightly low at 9.1 and hematocrit was 33.5. This was improved from previous results. Basic metabolic profile was reviewed and was essentially within normal limits. Serum lactate was reviewed and was normal at 2.0. Initial high-sensitivity troponin was reviewed and was 24. BNP was reviewed and was normal at 318. 2-hour repeat high-sensitivity troponin was reviewed and was 22 Labs: Laboratory Results - last 24 hr 12/23/24 12/23/24 12/23/24 13:10 13:37 15:01 WBC 10.5 RBC 4.50 L Hgb 9.1 L Hct 33.5 L MCV 74.4 L MCH 20.2 L MCHC 27.2 L RDW Std Deviation 55.2 H RDW Coeff of Jovany 21.3 H Plt Count 164 MPV 10.1 Immature Gran % (Auto) 0.400 Neut % (Auto) 77.2 H Lymph % (Auto) 13.4 L [place] % (Auto) 7.7 Eos % (Auto) 0.9 Baso % (Auto) 0.4 Absolute Neuts (auto) 8.1 H Absolute Lymphs (auto) 1.41 Nucleated RBC % 0 Differential Comment SCANNED Platelet Estimate ADEQUATE Polychromasia 1+ Anisocytosis 2+ Sodium 134 Potassium 5.1 Chloride 94 L Carbon Dioxide 30.1 Anion Gap 10 BUN 17 Creatinine 0.82 Estim Creat Clear Calc 148.25 Est GFR (MDRD) Non-Af 101 BUN/Creatinine Ratio 20.9 H Glucose 76 Lactic Acid 2.0 Calcium 8.5 Troponin T High Sens 24 H D Troponin T Hi Sens 2 Hr 22 Troponin T Hi Sens 4Hr NT pro BNP II 318 Urine Color Urine Clarity Urine pH Ur Specific [place] Urine Protein Urine Glucose (UA) Urine Ketones Urine Occult Blood Urine Nitrite Urine Bilirubin Urine Urobilinogen Ur Leukocyte Esterase 12/23/24 12/23/24 15:17 17:53 WBC RBC Hgb Hct MCV MCH MCHC RDW Std Deviation RDW Coeff of Jovany Plt Count MPV Immature Gran % (Auto) Neut % (Auto) Lymph % (Auto) [place] % (Auto) Eos % (Auto) Baso % (Auto) Absolute Neuts (auto) Absolute Lymphs (auto) Nucleated RBC % Differential Comment Platelet Estimate Polychromasia Anisocytosis Sodium Potassium Chloride Carbon Dioxide Anion Gap BUN Creatinine Estim Creat Clear Calc Est GFR (MDRD) Non-Af BUN/Creatinine Ratio Glucose Lactic Acid < 1.0 Calcium Troponin T High Sens Troponin T Hi Sens 2 Hr Troponin T Hi Sens 4Hr 22 NT pro BNP II Urine Color Straw Urine Clarity Sl. Cloudy Urine pH 6.5 Ur Specific [place] 1.010 Urine Protein 15 H Urine Glucose (UA) Normal Urine Ketones Negative Urine Occult Blood Negative Urine Nitrite Negative Urine Bilirubin Negative Urine Urobilinogen Normal Ur Leukocyte Esterase 25 H Radiography Chest X-Ray - ED: 2 View, Read by ED Physician, Read by Radiologist, No Acute Disease, Chronic Changes and Cardiomegaly Diagnostic Testing: Clinical Impression(s) from Imaging Studies Chest X-Ray 12/23/24 13:50 IMPRESSION: No interval change Reading Location: [facility] PA and lateral chest x-ray was obtained. There are 2 views. On my independent interpretation, lung ortiz show chronic changes. There is cardiomegaly noted. Bony thorax is normal. There is no acute process noted. Radiologist also interpreted the x-ray and agrees. EKG Initial EKG: Attestation: I personally reviewed and interpreted this EKG as follows: Interpretation: Sinus Rhythm (80) and No Acute Injury Pattern Comments: EKG was obtained. On my independent interpretation, it showed a normal sinus rhythm with a rate of 80. HI interval, QRS interval, and QTc intervals were all normal. [place] was normal. There are no acute ST or T wave changes. Prior EKG tracings: available for review Prior: Unchanged (11/30/2024) Treatment and Re-Evaluation :: Patient was advised of this finding. Patient was advised that he is not in congestive heart failure. Patient will be ambulated here in the emergency department. If the patient is ambulating and maintaining a pulse oximeter above 90%, I feel he can be discharged home. Urinalysis is also pending. If there is a urinary tract infection, the patient will be discharged home with an antibiotic. Care of the patient will be turned over to the oncoming physician pending ambulatory pulse ox and urinalysis results. <Dr. Antoine Hahn MD - Last Filed: 12/23/24 18:52> [facility] Narrative Medical decision making narrative: Differential diagnosis includes congestive heart failure, pneumonia, bronchitis, cellulitis, sepsis, cardiac dysrhythmia, cardiac ischemia, and anxiety. EKG will be obtained to assess for cardiac dysrhythmia and cardiac ischemia. Chest x-ray will be obtained to assess for pneumonia, bronchitis, and congestive heart failure. CBC will be obtained to assess for leukocytosis and anemia. Basic metabolic profile will be obtained to assess for electrolyte abnormality and renal function. Serum lactate will be obtained to assess for sepsis. High-sensitivity troponin will be obtained to assess for cardiac ischemia. BNP will be obtained to assess for congestive heart failure. 2-hour repeat high-sensitivity troponin will be obtained to assess for ongoing cardiac ischemia. Urinalysis will be obtained to assess for urinary tract infection. Patient turned over to me from Dr. Alex Joel. UA negative. Pulse ox 85% on room air the patient's not on home oxygen. Other labs are basically his baseline and chronic. This could be exacerbation of COPD or combination of COPD and mild CHF. No history of DVT or PE. No chest pain hemoptysis. I spoken to the hospitalist he is coming down evaluate the patient for admission. Repeat exam patient is resting comfortably on oxygen and his pulse ox is above 90%. But he does not have oxygen at home. Lab Data Labs: Laboratory Results - last 24 hr 12/23/24 12/23/24 12/23/24 13:10 13:37 15:01 WBC 10.5 RBC 4.50 L Hgb 9.1 L Hct 33.5 L MCV 74.4 L MCH 20.2 L MCHC 27.2 L RDW Std Deviation 55.2 H RDW Coeff of Jovany 21.3 H Plt Count 164 MPV 10.1 Immature Gran % (Auto) 0.400 Neut % (Auto) 77.2 H Lymph % (Auto) 13.4 L [place] % (Auto) 7.7 Eos % (Auto) 0.9 Baso % (Auto) 0.4 Absolute Neuts (auto) 8.1 H Absolute Lymphs (auto) 1.41 Nucleated RBC % 0 Differential Comment SCANNED Platelet Estimate ADEQUATE Polychromasia 1+ Anisocytosis 2+ Sodium 134 Potassium 5.1 Chloride 94 L Carbon Dioxide 30.1 Anion Gap 10 BUN 17 Creatinine 0.82 Estim Creat Clear Calc 148.25 Est GFR (MDRD) Non-Af 101 BUN/Creatinine Ratio 20.9 H Glucose 76 Lactic Acid 2.0 Calcium 8.5 Troponin T High Sens 24 H D Troponin T Hi Sens 2 Hr 22 Troponin T Hi Sens 4Hr NT pro BNP II 318 Urine Color Urine Clarity Urine pH Ur Specific [place] Urine Protein Urine Glucose (UA) Urine Ketones Urine Occult Blood Urine Nitrite Urine Bilirubin Urine Urobilinogen Ur Leukocyte Esterase 12/23/24 12/23/24 15:17 17:53 WBC RBC Hgb Hct MCV MCH MCHC RDW Std Deviation RDW Coeff of Jovany Plt Count MPV Immature Gran % (Auto) Neut % (Auto) Lymph % (Auto) [place] % (Auto) Eos % (Auto) Baso % (Auto) Absolute Neuts (auto) Absolute Lymphs (auto) Nucleated RBC % Differential Comment Platelet Estimate Polychromasia Anisocytosis Sodium Potassium Chloride Carbon Dioxide Anion Gap BUN Creatinine Estim Creat Clear Calc Est GFR (MDRD) Non-Af BUN/Creatinine Ratio Glucose Lactic Acid < 1.0 Calcium Troponin T High Sens Troponin T Hi Sens 2 Hr Troponin T Hi Sens 4Hr 22 NT pro BNP II Urine Color Straw Urine Clarity Sl. Cloudy Urine pH 6.5 Ur Specific [place] 1.010 Urine Protein 15 H Urine Glucose (UA) Normal Urine Ketones Negative Urine Occult Blood Negative Urine Nitrite Negative Urine Bilirubin Negative Urine Urobilinogen Normal Ur Leukocyte Esterase 25 H Radiography Diagnostic Testing: Clinical Impression(s) from Imaging Studies Chest X-Ray 12/23/24 13:50 IMPRESSION: No interval change Reading Location: [id number] Discharge Plan Triage Chief Complaint: Shortness of Breath Other Complaint: Edema ED Provider: Alex Mccray Dx/Rx/DC Orders Clinical Impression: Dyspnea, Edema of both legs Prescriptions: No Action tamsulosin 0.4 mg capsule 0.4 mg PO QHS guaifenesin [Mucinex] 600 mg tablet extended release 12hr 600 mg PO Q12H PRN (Reason: CONGESTION ) montelukast [Singulair] 10 mg tablet 10 mg PO QHS PRN (Reason: ALLERGIES ) fluticasone propion-salmeterol [Advair HFA] 115-21 mcg/actuation HFA aerosol inhaler 2 puff inhalation BID melatonin 10 mg tablet 10 mg PO QHS (DME) blood sugar diagnostic Kit See Rx Instructions .Route Rx Instructions: As directed omeprazole 20 mg capsule,delayed release(DR/EC) 20 mg PO DAILY Ozempic 2 mg/dose (8 mg/3 mL) pen injector 2 mg subcut QWEEK Rx Instructions: FRIDAY bisacodyl 10 mg suppository 10 mg HI ONCE PRN (Reason: constipation) venlafaxine 37.5 mg tablet 37.5 mg PO BID sennosides [Greer-danyel] 8.6 mg tablet 17.2 mg PO QDAY glipizide 5 mg tablet 5 mg PO QDAY finasteride [Proscar] 5 mg tablet 5 mg PO QDAY potassium chloride 20 MEQ tablet 20 meq PO DAILYCM 0RF metformin 1,000 mg tablet 1,000 mg PO BID albuterol sulfate 90 mcg/actuation HFA aerosol inhaler 2 puff INHALATION Q4H PRN (Reason: SHORTNESS OF BREATH/WHEEZING ) trazodone 50 mg tablet 100 mg PO QHS atorvastatin 80 mg tablet 80 mg PO QHS levothyroxine 200 mcg tablet 275 mcg PO DAILY furosemide 40 mg tablet 40 mg PO BID metoprolol tartrate 25 mg Tablet 25 mg PO BID Qty: 120 2RF insulin glargine [Lantus Solostar U-100 Insulin] 100 unit/mL (3 mL) insulin pen 56 unit subcut QPM acetaminophen 325 mg capsule 650 mg PO Q6H PRN (Reason: pain) ammonium lactate 12 % cream 1 applic topical BID PRN (Reason: dry skin) AmeriPhor Ointment 1 applic topical DAILY magnesium hydroxide [Dulcolax (magnesium hydroxide)] 400 mg/5 mL suspension 30 ml PO DAILY PRN (Reason: constipation) ondansetron 4 mg tablet,disintegrating 4 mg PO DAILY PRN (Reason: nausea and vomiting) sotalol [Betapace] 120 mg tablet 120 mg PO BID lisinopril 2.5 mg tablet 2.5 mg PO DAILY midodrine 10 mg tablet 10 mg PO TIDCM 30 Days Qty: 90 0RF Rx Instructions: Hold if SBP more than 100 mmHg insulin lispro [Humalog KwikPen Insulin] 100 unit/mL Insulin Pen See Protocol subcut ACHS Qty: 0 0RF Protocol: 4. Sliding Scale Insulin High-Med Dosing Condition: 150-199 mg/dl = 2 units Condition: 200-259 mg/dl = 4 units Condition: 260-324 mg/dl = 6 units Condition: 325-374 mg/dl = 8 units Condition: 375-409 mg/dl = 10 units Condition: 410-449 mg/dl = 11 units Condition: Greater than 449 call physician Protocol Text: Suggested for: - Patients on Total Daily Insulin Dose of 56-80 units - Patient who are known to be insulin resistant or septic HIGH MEDIUM DOSING ALGORITHM cephalexin 500 mg capsule 500 mg PO TID 2 Days Qty: 6 0RF polyethylene glycol 3350 [Miralax] 17 gram/dose powder 17 g PO DAILY 30 Days Qty: 0 0RF insulin lispro [Humalog KwikPen Insulin] 100 unit/mL insulin pen See Protocol subcut ACHS 30 Days Qty: 15 2RF Protocol: 4. Sliding Scale Insulin High-Med Dosing Condition: 150-199 mg/dl = 2 units Condition: 200-259 mg/dl = 4 units Condition: 260-324 mg/dl = 6 units Condition: 325-374 mg/dl = 8 units Condition: 375-409 mg/dl = 10 units Condition: 410-449 mg/dl = 11 units Condition: Greater than 449 call physician Protocol Text: Suggested for: - Patients on Total Daily Insulin Dose of 56-80 units - Patient who are known to be insulin resistant or septic HIGH MEDIUM DOSING ALGORITHM Rx Instructions: Hold if glucose less than 130 mg/dl (DME) needle (disp) 32 gauge 32 gauge x 5/16 needle See Rx Instructions .ROUTE .MEDSUPPLY Qty: 100 2RF Rx Instructions: As directed Primary Care Provider: Radha Baarjas SUEDING AND BUFFING MACHINE OPERATOR Referrals: Radha Barajas SUEDING AND BUFFING MACHINE OPERATOR, SUEDING AND BUFFING MACHINE OPERATOR-C [Primary Care Provider] - Print Language: Romanian
[2024-12-23 13:39] LABS: Hematocrit 33.5 % (40-54); Hemoglobin 9.1 g/dL (13.0-16.5); Immature Granulocytes Count 0.040 X10^3/uL (0.0-0.0); Mean Corp Hgb Conc 27.2 g/dL (32-36); Mean Corpuscular Volume 74.4 fL (80-94); NRBC Flagged by Analyzer 0 % (0-5); POSITIVE COUNT YES; POSITIVE MORPHOLOGY YES; RBC Distribution Width CV 21.3 % (11.6-14.6); RBC Distribution Width SD 55.2 fl (35.1-43.9); Red Blood Count 4.50 M/mm3 (4.6-6.2); White Blood Count 10.5 K/mm3 (4.4-11.0)
--- NOTE | 2024-12-23 13:50 | RAD_ITS ---
PROCEDURE: CHEST PA AND LATERAL 12/23/2024 REASON FOR EXAM: DYSPNEA TECHNIQUE: CHEST 2 PA AND LATERAL COMPARISON: 12/15/2024 FINDINGS: Hardware: None Heart: Stable cardiomegaly. Mediastinum: The mediastinal contour is stable. Lungs: Stable elevation of the left hemidiaphragm. Stable compressive atelectasis in the left lung base. Chronic interstitial changes in both lung ortiz without a superimposed process or significant interval change. Bones: Degenerative changes are identified within the thoracic spine. RAD/Chest PA and Lateral IMPRESSION: No interval change Reading Location: [id number]
[2024-12-23 14:26] LABS: Anion Gap 10 (5-15); BUN 17 mg/dL (4-19); BUN/Creat Ratio 20.9 RATIO (10-20); Calcium,Total 8.5 mg/dL (7.6-11.0); Carbon Dioxide 30.1 mmol/L (21.0-32.0); Chloride 94 mmol/L (98-108); Estimated Creatinine Clearance 148.25 ml/min (50-250); Glucose 76 mg/dL (70-99); Potassium 5.1 mmol/L (3.3-5.1); Pro- Brain NATRIURETIC PEPTIDE 318 pg/mL (<=900); Troponin T High Sensitivity 24 ng/L (<=22)
[2024-12-23 15:26] LABS: Mean Platelet Vol. 10.1 fl (6.2-12.0); Platelet Count 164 K/mm3 (150-450)
[2024-12-23 15:27] LABS: Differential Comment SCANNED
[2024-12-23 15:29] LABS: Anisocytosis 2+; Polychromasia 1+
[2024-12-23 16:03] LABS: Troponin T High Sens 2 HR 22 ng/L (<=22)
[2024-12-23 17:08] LABS: Color, Urine Straw (Yellow); Glucose, Dipstick Normal (Normal); Ketone-Dipstick Negative (Negative); Leukocyte Esterase-Dipstick 25 /ul (Negative); Nitrite-Dipstick Negative (Negative); Occult Blood-Urine Negative /ul (Negative); Protein-Dipstick 15 mg/dl (Negative); Specific Gravity, Urine 1.010 (1.002-1.030); Urine Bilirubin Dipstick Negative (Negative)
[2024-12-23 17:42] LABS: Reflex Lactate? Y
[2024-12-23 18:39] LABS: Troponin T High Sens 4 HR 22 ng/L (<=22)
--- NOTE | 2024-12-23 18:46 | PCM.HP.STD ---
HPI - General General Date of Admission: 12/23/24 Date of Service: 12/23/24 Chief Complaint: Shortness of breath HPI Narrative ZAK HOYT, is a 59 M who presented to [facility] ED on 12/23/2024 with worsening shortness of breath. Patient was recently hospitalized here from 12/15-12/18 for LLE wound with concerning for cellulitis. History significant for COPD/asthma with allergic rhinitis, HFpEF, CAD with stenting, nonsustained V. tach, hypertension, hyperlipidemia, type 2 diabetes mellitus and class III obesity. During this recent hospitalization he was hypoxic requiring 2 L and this was suspected to be multifactorial due to COPD, HFpEF, SHAHANA and obesity hypoventilation syndrome. However, he was able to be discharged without any supplemental oxygen. On arrival today he reports worsening shortness of breath especially with exertion. Chest x-ray was stable from previous and workup was fairly benign. He did not appear volume overloaded on exam. Breath sounds were diminished bilaterally but no wheezing or crackles noted. However, when he ambulated his oxygen saturation did drop to 85%, so hospitalist was contacted for admission. I saw the patient at bedside in the ED. Patient was somewhat unkempt appearing and mildly fatigued appearing but otherwise sitting up comfortably at the edge of the bed, conversing normally, in no acute distress. He denied any shortness of breath at rest currently. Denies any cough or sputum production. Denies any wheezing. Denies any volume overload in his legs. No other acute concerns currently. Will be admitted for further management. [facility] Medical History Redness of skin Thyroid disease Insulin dependent diabetes mellitus Anemia Hepatitis High cholesterol Difficulty swallowing History of diverticulitis Chronic cough History of pain when walking History of stress test History of irregular heartbeat Cellulitis Sleep apnea Lives in assisted living facility Wears glasses Wears dentures Depression Low iron Fatty liver Syncope Dietary restriction CPAP (continuous positive airway pressure) dependence Shortness of breath on exertion History of edema History of echocardiogram Cardiology follow-up encounter Tumor Atherosclerosis of coronary artery of [place] heart without angina pectoris Kidney stones COPD (chronic obstructive pulmonary disease) Former smoker Irregular heart beat NSVT (nonsustained ventricular tachycardia) Diabetes Asthma Hypothyroidism Hypertension Home Medications ?Medication ?Instructions ?Recorded ?Last Taken ?Type potassium chloride 20 mEq 20 meq PO DAILYCM SUPPLEMENT 04/23/19 12/30/23 Rx tablet,extended release(part/cryst) metformin 1,000 mg tablet 1,000 mg PO BID DIABETES 01/18/21 12/30/23 History tamsulosin 0.4 mg capsule 0.4 mg PO QHS PROSTATE 02/05/21 12/29/23 History albuterol sulfate 90 mcg/actuation 2 puff inhalation Q4H PRN 02/11/21 Unknown History aerosol inhaler SHORTNESS OF BREATH/WHEEZING montelukast 10 mg tablet 10 mg PO QHS PRN ALLERGIES 01/10/22 12/29/23 History (Singulair) guaifenesin 600 mg tablet, 600 mg PO Q12H PRN CONGESTION 02/04/22 11/18/23 History extended release 12 hr (Mucinex) fluticasone propionate 115 2 puff inhalation BID COPD 07/31/22 12/30/23 History mcg-salmeterol 21 mcg/actuation HFA inhaler (Advair HFA) blood sugar diagnostic 11/25/22 Unknown History atorvastatin 80 mg tablet 80 mg PO QHS CHOLESTEROL 11/18/23 12/29/23 History metoprolol tartrate 25 mg tablet 25 mg PO BID #120 tabs 03/31/24 10/20/24 Rx levothyroxine 200 mcg tablet 275 mcg PO DAILY THYROID 07/07/24 10/20/24 History omeprazole 20 mg capsule,delayed 20 mg PO DAILY GERD 07/13/24 10/20/24 History release semaglutide 2 mg/dose (8 mg/3 mL) 2 mg subcut QWEEK DIABETES 07/13/24 10/06/24 History subcutaneous pen injector (Ozempic) insulin glargine 100 unit/mL (3 56 unit subcut QPM 09/13/24 Unknown History mL) subcutaneous pen (Lantus Solostar U-100 Insulin) lisinopril 2.5 mg tablet 2.5 mg PO DAILY 10/20/24 Unknown History finasteride 5 mg tablet (Proscar) 5 mg PO QDAY 11/11/24 Unknown History glipizide 5 mg tablet 5 mg PO QDAY 11/11/24 Unknown History melatonin 10 mg tablet 10 mg PO QHS SLEEP 11/11/24 Unknown History sennosides 8.6 mg tablet (Greer-danyel) 17.2 mg PO QDAY 11/11/24 Unknown History trazodone 50 mg tablet 100 mg PO QHS SLEEP 11/11/24 Unknown History bisacodyl 10 mg rectal suppository 10 mg AZ ONCE PRN constipation 11/19/24 Unknown History furosemide 40 mg tablet 40 mg PO BID EDEMA 11/19/24 Unknown History venlafaxine 37.5 mg tablet 37.5 mg PO BID 11/19/24 Unknown History acetaminophen 325 mg capsule 650 mg PO Q6H PRN pain 11/30/24 Unknown History ammonium lactate 12 % topical cream 1 applic topical BID PRN dry skin 11/30/24 Unknown History magnesium hydroxide 400 mg/5 mL 30 ml PO DAILY PRN constipation 11/30/24 Unknown History oral suspension (Dulcolax (magnesium hydroxide)) mineral oil-hydrophil petrolat 1 applic topical DAILY 11/30/24 Unknown History topical ointment (AmeriPhor topical ointment) ondansetron 4 mg disintegrating 4 mg PO DAILY PRN nausea and 11/30/24 Unknown History tablet vomiting sotalol 120 mg tablet (Betapace) 120 mg PO BID 11/30/24 Unknown History cephalexin 500 mg capsule 500 mg PO TID 2 days #6 caps 12/18/24 Unknown Rx insulin lispro 100 unit/mL See Protocol subcut ACHS #0 mL 12/18/24 Unknown Rx subcutaneous pen (Humalog KwikPen (U-100) Insulin) insulin lispro 100 unit/mL See Protocol subcut ACHS 1 month 12/18/24 Unknown Rx subcutaneous pen (Humalog KwikPen #15 mL (U-100) Insulin) midodrine 10 mg tablet 10 mg PO TIDCM 30 days #90 tabs 12/18/24 Unknown Rx needle (disp) 32 gauge 32 gauge x #100 ea 12/18/24 Unknown Rx 5/16 polyethylene glycol 3350 17 17 g PO DAILY Constipation 30 days 12/18/24 10/19/24 Rx gram/dose oral powder (Miralax) #0 grams Allergy/AdvReac Type Severity Reaction Status Date / Time No Known Allergies Allergy Verified 12/22/24 10:52 Family History Father Heart disease Hypertension Mother Brain aneurysm Surgical History History of cardiac catheterization Hx of colonoscopy History of coronary artery stent placement (01/18/21) History of thyroidectomy Social History household members: other details: Assisted living housing: assisted living facility current occupational status: disabled Smoking Status: Former smoker how long ago did patient quit smokin years ago alcohol intake: never substance use type: does not use caffeine: Yes Type: carbonated beverages ROS Constitutional Constitutional: Reports fatigue; Denies chills, fever(s) or weakness Eyes Eyes: Denies change in vision Cardiovascular Cardiovascular: Reports dyspnea on exertion; Denies chest pain or edema Respiratory/Chest Respiratory/Chest: Reports shortness of breath with exertion; Denies cough, productive cough, shortness of breath at rest or wheezing Gastrointestinal Gastrointestinal: Denies abdominal pain Musculoskeletal Musculoskeletal: Denies arthralgias or myalgias Neurologic Neurologic: Denies dizziness, focal weakness or headache(s) Vital Signs Vital Signs Vital Signs: 12/23/24 12:53 12/23/24 12:56 12/23/24 13:18 Temperature 99.0 F 99 F Temperature Source Oral Oral Pulse Rate 85 85 Respiratory Rate 16 16 Respiratory Effort Respiratory Depth Respiratory Pattern Blood Pressure 125/59 H 125/59 H Blood Pressure Mean 81 81 Pulse Ox 82 91 91 Oxygen Delivery Method Room Air Nasal Cannula Nasal Cannula Oxygen Flow Rate (L/min) 2 2 12/23/24 14:00 12/23/24 15:00 12/23/24 15:05 Temperature 99 F 99 F Temperature Source Oral Oral Pulse Rate 83 83 Respiratory Rate 16 17 Respiratory Effort Short of Breath Respiratory Depth Respiratory Pattern Normal Blood Pressure 123/68 H 114/61 Blood Pressure Mean 86 78 Pulse Ox 100 100 Oxygen Delivery Method Nasal Cannula Nasal Cannula Oxygen Flow Rate (L/min) 2 2 12/23/24 15:05 12/23/24 15:10 12/23/24 15:52 Temperature 99.1 F Temperature Source Oral Pulse Rate 81 Respiratory Rate 19 H Respiratory Effort Short of Breath Respiratory Depth Normal Respiratory Pattern Normal Blood Pressure 114/61 Blood Pressure Mean 78 Pulse Ox 97 96 Oxygen Delivery Method Room Air Nasal Cannula Nasal Cannula Oxygen Flow Rate (L/min) 1 1 12/23/24 16:00 12/23/24 17:00 12/23/24 18:00 Temperature 99.0 F 99.1 F Temperature Source Oral Oral Pulse Rate 79 80 78 Respiratory Rate 19 H 19 H Respiratory Effort Respiratory Depth Respiratory Pattern Blood Pressure 114/64 114/64 111/58 L Blood Pressure Mean 80 80 75 Pulse Ox 97 99 Oxygen Delivery Method Nasal Cannula Nasal Cannula Oxygen Flow Rate (L/min) 1 1 Weight Weight: 150.3 kg Body Mass Index (BMI) 43.7 Physical Exam Const alert, oriented x3 and no apparent distress Constitutional Narrative: Upper middle-aged male, appears older than stated age, class III obesity, unkempt appearing, mildly fatigued appearing, otherwise sitting up comfortably at the edge of the bed, conversing normally, in no acute distress. General Appearance: cooperative and comfortable HEENT normocephalic, head/scalp atraumatic, hearing grossly normal bilaterally, nasal mucous membranes and turbinates normal and moist oral mucous membranes Eyes PERRL, EOMs intact bilaterally and conjunctivae normal Neck full ROM Chest inspection of chest normal Resp normal respiratory effort and no use of accessory muscles Resp Narrative: Breathing comfortably on 3 L nasal cannula at rest with oxygen saturations in the high 90s. Diminished breath sounds bilaterally throughout but no wheezing or crackles noted. Cardio regular rate, regular rhythm, no murmurs and peripheral pulses 2+ throughout GI normal to inspection, nondistended, normoactive bowel sounds, soft to palpation, non-tender and non-distended Back/Spine normal ROM Extremity normal to inspection, full ROM and no pedal edema Skin no rashes or lesions noted Neuro moves all extremities and no focal motor deficits Psych mental status grossly normal Results Lab / Micro Data 12/23/24 13:10 12/23/24 13:10 Labs: Laboratory Results - last 24 hr 12/23/24 13:10: WBC 10.5, RBC 4.50 L, Hgb 9.1 L, Hct 33.5 L, MCV 74.4 L, MCH 20.2 L, MCHC 27.2 L, RDW Std Deviation 55.2 H, RDW Coeff of Joavny 21.3 H, Plt Count 164, MPV 10.1, Immature Gran % (Auto) 0.400, Neut % (Auto) 77.2 H, Lymph % (Auto) 13.4 L, [place] % (Auto) 7.7, Eos % (Auto) 0.9, Baso % (Auto) 0.4, Absolute Neuts (auto) 8.1 H, Absolute Lymphs (auto) 1.41, Nucleated RBC % 0, Differential Comment SCANNED, Platelet Estimate ADEQUATE, Polychromasia 1+, Anisocytosis 2+, Sodium 134, Potassium 5.1, Chloride 94 L, Carbon Dioxide 30.1, Anion Gap 10, BUN 17, Creatinine 0.82, Estim Creat Clear Calc 148.25, Est GFR (MDRD) Non-Af 101, BUN/Creatinine Ratio 20.9 H, Glucose 76, Calcium 8.5, Troponin T High Sens 24 H D, NT pro BNP II 318 12/23/24 13:37: Lactic Acid 2.0 12/23/24 15:01: Troponin T Hi Sens 2 Hr 22 12/23/24 15:17: Urine Color Straw, Urine Clarity Sl. Cloudy, Urine pH 6.5, Ur Specific [place] 1.010, Urine Protein 15 H, Urine Glucose (UA) Normal, Urine Ketones Negative, Urine Occult Blood Negative, Urine Nitrite Negative, Urine Bilirubin Negative, Urine Urobilinogen Normal, Ur Leukocyte Esterase 25 H 12/23/24 17:53: Lactic Acid < 1.0, Troponin T Hi Sens 4Hr 22 Imaging Radiology Impression Chest X-Ray 12/23/24 13:50 IMPRESSION: No interval change Reading Location: [id number] Assessment & Plan Assessment/Plan (1) Hypoxia: PLAN: Plan Patient is a 59-year-old male who presented to [facility] ED on 12/23/2024 with worsening shortness of breath. 1. Acute hypoxia on exertion in setting of COPD/asthma with allergic rhinitis, class III obesity with SHAHANA and suspected obesity hypoventilation syndrome ? Admit under inpatient [facility] to [facility]. Patient with hypoxia on exertion down to 85% in the ED. Notably was hypoxic requiring 2 L on recent admission but was weaned off oxygen by discharge. Suspect patient has hypoxia at baseline due to factors as noted above. Chest x-ray on admit clear. Breath sounds diminished but no wheezing or crackles noted, low concern for COPD exacerbation. Continue home inhalers. Continue home CPAP at night. Will order home O2 testing for tomorrow morning in case patient is able to be discharged home tomorrow. 2. Recent admission for left lower extremity cellulitis in setting of bilateral lower extremity venous stasis ? Hospitalized from 12/15-12/18 for this, see recent discharge summary for further details. Minimal leg swelling on exam today. Continue management as below. Chronic medical conditions: ? History of CAD with stenting, chronic HFpEF, history of NSVT, hypertension, hyperlipidemia: Normotensive and in normal sinus rhythm on admit. Continue home statin, Lasix, lisinopril, Lopressor, and sotalol. Notably has had issues with orthostatic hypotension, continue home midodrine. ? Type 2 diabetes mellitus with recent episodes of hypoglycemia: Recent A1c 5.3%. Had low glucose values down to the 40s during previous hospitalization. Hold long-acting insulin and other home oral medications. Will treat with sliding scale insulin with meals while inpatient, adjust as needed. ? Hypothyroidism: Continue home Synthroid. ? BPH with obstructive disease: Continue home Flomax and finasteride. ? GERD: Continue home PPI. ? Chronic iron deficiency anemia: Hemoglobin 9.1 on admit, at baseline. ? Former tobacco use: Encouraged continued cessation. DVT prophylaxis: Lovenox twice daily CODE STATUS: Full code, verified Expected disposition: Home, TBD Total clinical time spent by myself addressing the patient's medical issues, reviewing all the data, and collaborating with patient's care team: 75 minutes. Charges/Coding Visit Charges Inpatient E&M: 02585 Init Hosp L3
[2024-12-24] VITALS (30 sets, daily range): BP systolic 90–127; BP diastolic 41–69; PULSE 64–90; RESP 12–34; TEMP 36.1–36.8; O2SAT 85–100
[2024-12-24 06:04] LABS: Hematocrit 33.0 % (40-54); Hemoglobin 8.4 g/dL (13.0-16.5); Mean Corp Hgb Conc 25.5 g/dL (32-36); Mean Corpuscular Volume 78.8 fL (80-94); Mean Platelet Vol. 9.4 fl (6.2-12.0); POSITIVE MORPHOLOGY YES; Platelet Count 215 K/mm3 (150-450); RBC Distribution Width CV 21.0 % (11.6-14.6); RBC Distribution Width SD 58.7 fl (35.1-43.9); Red Blood Count 4.19 M/mm3 (4.6-6.2); White Blood Count 10.4 K/mm3 (4.4-11.0)
[2024-12-24 06:11] LABS: Scan Indicated on CBC? Y/N YES- FLAGS NOTED
[2024-12-24 06:20] LABS: Anion Gap 7 (5-15); BUN 17 mg/dL (4-19); BUN/Creat Ratio 17.9 RATIO (10-20); Calcium,Total 8.3 mg/dL (7.6-11.0); Carbon Dioxide 34.5 mmol/L (21.0-32.0); Chloride 96 mmol/L (98-108); Estimated Creatinine Clearance 128.47 ml/min (50-250); Glucose 97 mg/dL (70-99); Potassium 4.7 mmol/L (3.3-5.1)
[2024-12-24] MEDS: Budesonide Respules 0.5 MG/2 ML AMPUL.NEB. INHALATION (07:33)
--- NOTE | 2024-12-24 07:38 | PCM.PN.HOSP ---
Reason for Visit Reason for Visit: Diagnoses Hypoxemia (12/23/24) Objective Data Objective Data Vital Signs: Vital Signs Temp Pulse Resp BP Pulse Ox O2 Del Method O2 Flow Rate 98 F 81 16 102/51 L 96 Nasal Cannula 3 12/24/24 05:30 12/24/24 05:30 12/24/24 05:30 12/24/24 05:30 12/24/24 05:30 12/24/24 05:30 12/24/24 05:30 Oxygen Flow Rate (L/min) 3 Oxygen Delivery Method Nasal Cannula Weight: 327 lb 6.183 oz Body Mass Index (BMI) 43.2 Intake & Output: Intake and Output for Last 24 Hours 12/22/24 12/23/24 12/24/24 23:59 23:59 23:59 Intake Total 0 / 0 Balance 0 / 0 Lab / Micro Data 12/24/24 05:32 12/24/24 05:32 Labs: Laboratory Results - last 24 hr 12/23/24 13:10: WBC 10.5, RBC 4.50 L, Hgb 9.1 L, Hct 33.5 L, MCV 74.4 L, MCH 20.2 L, MCHC 27.2 L, RDW Std Deviation 55.2 H, RDW Coeff of Jovany 21.3 H, Plt Count 164, MPV 10.1, Immature Gran % (Auto) 0.400, Neut % (Auto) 77.2 H, Lymph % (Auto) 13.4 L, [place] % (Auto) 7.7, Eos % (Auto) 0.9, Baso % (Auto) 0.4, Absolute Neuts (auto) 8.1 H, Absolute Lymphs (auto) 1.41, Nucleated RBC % 0, Differential Comment SCANNED, Platelet Estimate ADEQUATE, Polychromasia 1+, Anisocytosis 2+, Sodium 134, Potassium 5.1, Chloride 94 L, Carbon Dioxide 30.1, Anion Gap 10, BUN 17, Creatinine 0.82, Estim Creat Clear Calc 148.25, Est GFR (MDRD) Non-Af 101, BUN/Creatinine Ratio 20.9 H, Glucose 76, Calcium 8.5, Troponin T High Sens 24 H D, NT pro BNP II 318 12/23/24 13:37: Lactic Acid 2.0 12/23/24 15:01: Troponin T Hi Sens 2 Hr 22 12/23/24 15:17: Urine Color Straw, Urine Clarity Sl. Cloudy, Urine pH 6.5, Ur Specific [place] 1.010, Urine Protein 15 H, Urine Glucose (UA) Normal, Urine Ketones Negative, Urine Occult Blood Negative, Urine Nitrite Negative, Urine Bilirubin Negative, Urine Urobilinogen Normal, Ur Leukocyte Esterase 25 H 12/23/24 17:53: Lactic Acid < 1.0, Troponin T Hi Sens 4Hr 22 12/23/24 21:31: POC Glucose 78 12/24/24 05:32: WBC 10.4, RBC 4.19 L, Hgb 8.4 L, Hct 33.0 L, MCV 78.8 L D, MCH 20.0 L, MCHC 25.5 L D, RDW Std Deviation 58.7 H, RDW Coeff of Jovany 21.0 H, Plt Count 215, MPV 9.4, Differential Comment , Sodium 137, Potassium 4.7, Chloride 96 L, Carbon Dioxide 34.5 H, Anion Gap 7, BUN 17, Creatinine 0.94, Estim Creat Clear Calc 128.47, Est GFR (MDRD) Non-Af 94, BUN/Creatinine Ratio 17.9, Glucose 97, Calcium 8.3 12/24/24 06:35: POC Glucose 93 Radiography Diagnostic Testing: Radiology Impression Chest X-Ray 12/23/24 13:50 IMPRESSION: No interval change Reading Location: [facility] Physical Exam Narrative Called in the morning that patient is very drowsy and lethargic, not waking up. Went to see the patient immediately. BP 90/41, afebrile heart rate 83, RR normal on 2 L of oxygen but patient very lethargic, transient opening of right but nonverbal. ABG ordered stat. I again saw the patient in ICU about 10 AM and 11 AM. Physical exam General: Alert, Oriented x3, Cooperative HEENT: Atraumatic, PERRLA, EOMI, Normocephalic. Oral: No Gingival or Mucosal Lesions/ Ulcerations Neck: Supple, No JVD, Negative Carotid Bruits Chest wall/Lungs: Air entry diminished in bilateral lungs. Bibasilar lower lobe crypts/rhonchi, put on BiPAP Cardiovascular: Regular rate and rhythm, Normal S1,S2, No M/G/R Abdomen: Bowel Sounds sluggish, Soft, Non Tender, abdominal fat/swelling : No dysuria. No renal angle tenderness. No suprapubic tenderness. Extremities: Bilateral 2+ edema, Capillary Refill Less than 3 Seconds Skin: NBilateral venous congestion suggestive of venous hypertension/stasis, dressing. Musculoskeletal: No Tenderness to Palpation of Joints or Extremities Neurological: Cranial nerves II-XII grossly intact, DTR 2+/4. No acute focal neurological deficit. Psych/Mental Status: Normal Affect, Appropriate. Assessment & Plan Assessment/Plan (1) Hypoxia: PLAN: Plan Patient is a 59-year-old male who presented to [facility] ED on 12/23/2024 with worsening shortness of breath predominantly with any amount of exertion for 1 month. No cough, chest pain, fever or chills. No sore throat or rhinorrhea. 1. Acute hypoxia on exertion in setting of COPD/asthma with allergic rhinitis, class III obesity with SHAHANA and suspected obesity hypoventilation syndrome ? Admit under inpatient status to [facility]. Patient with hypoxia on exertion down to 85% in the ED. Notably was hypoxic requiring 2 L on recent admission but was weaned off oxygen by discharge. Suspect patient has hypoxia at baseline due to factors as noted above. Chest x-ray on admit clear. Breath sounds diminished but no wheezing or crackles noted, low concern for COPD exacerbation. Continue home inhalers. Continue home CPAP at night. Will order home O2 testing for tomorrow morning in case patient is able to be discharged home tomorrow. Acute hypoxic and hypercarbic respiratory with CO2 narcosis/acute encephalopathy due to metabolic encephalopathy ABG 7.20/102.2/45 on 2 L of oxygen, total CO2 43. Baseline CO2 around 30-32, today 34.5. Patient immediately ordered BiPAP and transferred to ICU for further care. Campaign Associate consulted Later on about 10 to 11 AM, I went to see the patient and he was waking up on the BiPAP. He responds that he can breathe on BiPAP. Repeat ABG shows 7.40/65.7/103 on BiPAP PEEP 10. Therefore patient does not need intubation. Discussed with Dr. Ovalles emissions testing and repair technician about ABG and acute on chronic combined respiratory failure with CO2 narcosis. Patient is improving. Regular emissions testing and repair technician consult for tomorrow. 2. Acute on chronic HFpEF with recent admission from 12/15-12/18 for left lower extremity venous edema/lymphedema complicated with mild cellulitis : During last admission patient was discharged on furosemide 40 mg twice daily, metoprolol 25 mg twice daily, lisinopril 2.5 mg daily and atorvastatin 80 mg daily. Advised to continue the same. Echo 12/16/2024 suggestive of chronic HFpEF Mild concentric left ventricular hypertrophy. The LV ejection fraction is 65 %. Stage 1 diastolic dysfunction. There is mild biatrial dilatation. The study was technically difficult. First x-ray shows chronic interstitial changes, stable compressive atelectasis of the left lung base and stable elevation of left diaphragm.. Repeat chest x-ray in the morning shows worsening of vascular congestion/pulmonary edema mainly in hilar area. Patient got Lasix 40 mg IV before x-ray was done. Continue Lasix 40 IV twice daily. Heart failure core measures including intake and output, fluid restriction less than 1500 mL, daily weight monitoring, kidney and electrolytes monitoring. Chronic medical conditions: ? History of CAD with stenting,, history of NSVT, hypertension, hyperlipidemia: Normotensive and in normal sinus rhythm on admit. Continue home statin, Lasix, lisinopril, Lopressor, and sotalol. Notably has had issues with orthostatic hypotension, continue home midodrine. ? Type 2 diabetes mellitus with recent episodes of hypoglycemia: Recent A1c 5.3%. Had low glucose values down to the 40s during previous hospitalization. Hold long-acting insulin and other home oral medications. Will treat with sliding scale insulin with meals while inpatient, adjust as needed. ? Hypothyroidism: Continue home Synthroid. ? BPH with obstructive disease: Continue home Flomax and finasteride. ? GERD: Continue home PPI. ? Chronic iron deficiency anemia: Hemoglobin 9.1 on admit, at baseline. ? Former tobacco use: Encouraged continued cessation. DVT prophylaxis: Lovenox twice daily CODE STATUS: Full code, verified Charges/Coding Addendum Addendum: Total time of the visit including total time spent in counseling or coordination of care, (more than 50% of the total time, spent in obtaining medical information from nurses and other ancillary care providers ,explaining to the patient about labs, imaging, diagnosis and management of active complex medical conditions), management of CO2 narcosis, intensive management, acute on chronic combined respiratory failure, review of labs and imaging is 60 minutes. Procedures Hospitalists Procedures: [id number] Critical Care 1st Hr
--- NOTE | 2024-12-24 09:10 | RAD_ITS ---
PROCEDURE: CHEST 1 VIEW (PORTABLE) 12/24/2024 REASON FOR EXAM: SOB TECHNIQUE: Frontal view of the chest. COMPARISON: 12/23/2024 FINDINGS: Mild pulmonary vascular congestion and pulmonary edema. Bibasilar subsegmental atelectasis. Left lower lobe opacity may reflect pneumonia, atelectasis, and/or aspiration. No significant pleural effusion. No pneumothorax. Cardiac silhouette is stable. RAD/Chest 1 View (Portable) IMPRESSION: Mild pulmonary edema. Left lower lobe opacity may reflect pneumonia, atelectas is, and/or aspiration. Overall, lung findings are not grossly changed. Reading Location: [id number]
--- NOTE | 2024-12-24 09:14 | CPS ---
Pt has a full frances so it is hard to get a great seal on the BIPAP.
[2024-12-24 09:23] LABS: Allen Test Positive; Base Excess 11 mmol/L (-2 to +2); FI02 3.0; PO2 45 mmHG (75-100); SITE R Radial; SO2 66 % (95-99); Time Given 09:21:14
--- NOTE | 2024-12-24 09:45 | NURSING ---
to ICU per bed/monitors/bipap
--- NOTE | 2024-12-24 09:47 | NURSING ---
This RN entered patient's room around 0815 and found patient resting with eyes closed. No acute distress noted. I spoke to the patient and called his name with no response. I lightly touched the patients arm and he gave minimal response. VS taken and bp was 90/41 and HR was 83, Sp02 96% on 2L. The patient would not follow commands and would barely open his eyes. Dr. Gunn and charge entry clerk were notified. Dr. Gunn came to the patient's room to evaluate. He ordered BiPap and ABG's. Respiratory was called to complete these and the results were given to Dr. Gunn per the RT. Dr. Gunn also ordered a chest xray and IV lasix. Both of those orders were completed on the MS unit. After Dr. Gunn recieved the ABG results he ordered to have the patient transferred to ICU. Report was called at approximately 0940. The patient is being moved off the unit at 0950 with instructional supervisor, MAINTAINABILITY ENGINEER and RT and cardiac/02 monitoring. Attempted to call patient's daughter and there was no answer. A message was left to call MS3 back as soon as possible for and update on the patient.
[2024-12-24] MEDS: Piperacil/Tazobactam 3.375 GM in 0.9% Normal Saline (50mL MB+) 50 ML IV ×2 (10:31→21:34)
[2024-12-24] MEDS: 0.9% Saline Lock 10 ML Syringe IV ×2 (10:32→21:21)
[2024-12-24 10:35] LABS: Mucous, Urine 0 SEEN /hpf (<or=2+); Red Blood Cells-Urine 0 SEEN /hpf (0-5); Squamous Epithelial Cells - UA 0 SEEN /hpf (0-5)
[2024-12-24 10:36] LABS: Color, Urine Yellow (Yellow); Glucose, Dipstick Normal (Normal); Ketone-Dipstick Negative (Negative); Leukocyte Esterase-Dipstick Negative /ul (Negative); Nitrite-Dipstick Negative (Negative); Occult Blood-Urine Negative /ul (Negative); Protein-Dipstick 100 mg/dl (Negative); Specific Gravity, Urine 1.025 (1.002-1.030); Urine Bilirubin Dipstick Negative (Negative)
[2024-12-24 10:54] LABS: Allen Test Positive; Base Excess 16 mmol/L (-2 to +2); FI02 40.0; PEEP 10; PO2 103 mmHG (75-100); SITE L Radial; SO2 98 % (95-99)
--- NOTE | 2024-12-24 12:29 | NURSING ---
This RN and spoke with patient's daughter (Nikunj) to give an update. She is aware that her dad was transferred to ICU and according to his nurse, he is doing better and responding more. Nikunj is aware to ask for ICU if she needs any further updates on her father.
[2024-12-24] MEDS: Furosemide 20 MG/2 ML VIAL IV (13:45)
[2024-12-24 14:44] LABS: AST(SGOT) 32 U/L (<=37); Alanine Aminotransfer ALT/SGPT 19 U/L (<=46); Albumin, Serum 3.3 g/dL (3.5-5.0); Alkaline Phosphatase 225 U/L (40-129); Bilirubin, Direct 0.26 mg/dL (0.00-0.30); Globulin 3.8 g/dL (2.2-4.2); Magnesium 2.1 mg/dL (1.5-2.2)
[2024-12-24] MEDS: Sotalol Hydrochloride 80 MG Tablet 120 MG PO (21:20)
[2024-12-24] MEDS: MELATONIN 10 MG TABLET PO (21:34)
[2024-12-25] VITALS (25 sets, daily range): BP systolic 95–138; BP diastolic 53–80; PULSE 66–86; RESP 12–28; TEMP 36.1–36.9; O2SAT 92–100; BMI 42.5
[2024-12-25] MEDS: 0.9% Saline Lock 10 ML Syringe IV ×5 (05:12→20:58)
[2024-12-25] MEDS: Piperacil/Tazobactam 3.375 GM in 0.9% Normal Saline (50mL MB+) 50 ML IV ×3 (05:12→20:56)
[2024-12-25 05:31] LABS: Hematocrit 30.6 % (40-54); Hemoglobin 8.4 g/dL (13.0-16.5); Immature Granulocytes Count 0.070 X10^3/uL (0.0-0.0); Mean Corp Hgb Conc 27.5 g/dL (32-36); Mean Corpuscular Volume 74.1 fL (80-94); Mean Platelet Vol. 9.4 fl (6.2-12.0); NRBC Flagged by Analyzer 0 % (0-5); POSITIVE MORPHOLOGY YES; Platelet Count 187 K/mm3 (150-450); RBC Distribution Width CV 20.3 % (11.6-14.6); RBC Distribution Width SD 54.2 fl (35.1-43.9); Red Blood Count 4.13 M/mm3 (4.6-6.2); White Blood Count 12.0 K/mm3 (4.4-11.0)
[2024-12-25 05:42] LABS: Differential Indicated SCAN CRITERIA MET
[2024-12-25 06:25] LABS: Anisocytosis 1+; Differential Comment SCANNED; Microcytosis 1+
[2024-12-25 07:06] LABS: Anion Gap 10 (5-15); BUN 18 mg/dL (4-19); BUN/Creat Ratio 22.9 RATIO (10-20); Calcium,Total 8.4 mg/dL (7.6-11.0); Carbon Dioxide 31.8 mmol/L (21.0-32.0); Chloride 91 mmol/L (98-108); Estimated Creatinine Clearance 151.66 ml/min (50-250); Glucose 170 mg/dL (70-99); Potassium 4.5 mmol/L (3.3-5.1)
--- NOTE | 2024-12-25 07:16 | PCM.PN.HOSP ---
Reason for Visit Reason for Visit: Diagnoses Hypoxemia (12/23/24) Objective Data Objective Data Vital Signs: Vital Signs Temp Pulse Resp BP Pulse Ox O2 Del Method O2 Flow Rate 98.5 F 74 17 107/62 94 Nasal Cannula 2 12/25/24 04:00 12/25/24 06:00 12/25/24 06:00 12/25/24 06:00 12/25/24 06:00 12/25/24 06:00 12/25/24 06:00 FiO2 40 12/25/24 04:00 Oxygen Flow Rate (L/min) 2 Oxygen Delivery Method Nasal Cannula Weight: 322 lb 12.108 oz Body Mass Index (BMI) 42.5 Intake & Output: Intake and Output for Last 24 Hours 12/23/24 12/24/24 12/25/24 23:59 23:59 23:59 Intake Total 1650 / 1650 50 / 50 Output Total 5475 / 5475 350 / 350 Balance -3825 / -3825 -300 / -300 Lab / Micro Data 12/25/24 05:24 12/25/24 05:24 Labs: Laboratory Results - last 24 hr 12/24/24 05:32: Differential Comment , Magnesium 2.1, Total Bilirubin 0.51, Direct Bilirubin 0.26, AST 32, ALT 19, Alkaline Phosphatase 225 H, Total Protein 7.1, Albumin 3.3 L, Globulin 3.8 12/24/24 09:35: Urine Color Yellow, Urine Clarity Clear, Urine pH 6.0, Ur Specific [place] 1.025, Urine Protein 100 H, Urine Glucose (UA) Normal, Urine Ketones Negative, Urine Occult Blood Negative, Urine Nitrite Negative, Urine Bilirubin Negative, Urine Urobilinogen 1 H, Ur Leukocyte Esterase Negative, Urine RBC 0 SEEN, Urine WBC 0-5 SEEN, Ur Squamous Epith Cells 0 SEEN, Urine Bacteria 0 SEEN, Hyaline Casts 5-10 SEEN, Urine Mucus 0 SEEN 12/24/24 11:13: POC Glucose 87 12/24/24 16:40: POC Glucose 119 H 12/24/24 21:26: POC Glucose 257 H 12/25/24 05:24: WBC 12.0 H, RBC 4.13 L, Hgb 8.4 L, Hct 30.6 L, MCV 74.1 L D, MCH 20.3 L, MCHC 27.5 L D, RDW Std Deviation 54.2 H, RDW Coeff of Jovany 20.3 H, Plt Count 187, MPV 9.4, Immature Gran % (Auto) 0.600, Neut % (Auto) 90.4 H, Lymph % (Auto) 6.2 L, Emmet % (Auto) 2.7, Eos % (Auto) 0.0, Baso % (Auto) 0.1, Absolute Neuts (auto) 10.9 H, Absolute Lymphs (auto) 0.74 L, Nucleated RBC % 0, Differential Comment SCANNED, Anisocytosis 1+, Microcytosis 1+, Sodium 133, Potassium 4.5, Chloride 91 L, Carbon Dioxide 31.8, Anion Gap 10, BUN 18, Creatinine 0.79, Estim Creat Clear Calc 151.66, Est GFR (MDRD) Non-Af 103, BUN/Creatinine Ratio 22.9 H, Glucose 170 H, Calcium 8.4 ABG Data ABG results: ABG 12/24/24 12/24/24 09:19 10:49 Specimen Type ART ART Sample Site R Radial L Radial pH 7.20 L 7.40 Bicarbonate Actual 39.5 H 40.8 H Total CO2 43 43 Base Excess 11 H 16 H O2 Saturation 66 L 98 O2 % 3.0 40.0 ABG pCO2 102.2 H* 65.7 H ABG pO2 45 L 103 H Sj Test Positive Positive O2 Delivery Device Cannula BiPAP Vent Mode Not entered Not entered POC PEEP 10 Crit Call To/Read Back Yes Blood Gas Notified Whom mary Blood Gas Notified Time 09:21:14 Radiography Diagnostic Testing: Radiology Impression Chest X-Ray 12/24/24 09:10 IMPRESSION: Mild pulmonary edema. Left lower lobe opacity may reflect pneumonia, atelectasis, and/or aspiration. Overall, lung findings are not grossly changed. Reading Location: [facility] Physical Exam Narrative Seen and examined in the ICU. Patient did well after BiPAP in ICU since afternoon. On baseline 2 L of oxygen. No chest pain shortness of breath. Discussed with the cleaner window. Patient had 5.5 L of urine output after Lezama catheterization. Physical exam General: Alert, Oriented x3, Cooperative HEENT: Atraumatic, PERRLA, EOMI, Normocephalic. Oral: No Gingival or Mucosal Lesions/ Ulcerations Neck: Supple, No JVD, Negative Carotid Bruits Chest wall/Lungs: Air entry diminished in bilateral lungs. Lungs fine crypts but almost clear. On BiPAP Cardiovascular: Regular rate and rhythm, Normal S1,S2, No M/G/R Abdomen: Bowel Sounds sluggish, Soft, Non Tender, abdominal fat/swelling : No dysuria. No renal angle tenderness. No suprapubic tenderness. Extremities: Bilateral 2+ edema, ambulatory. Capillary Refill Less than 3 Seconds Skin: NBilateral venous congestion suggestive of venous hypertension/stasis, dressing. Musculoskeletal: No Tenderness to Palpation of Joints or Extremities Neurological: Cranial nerves II-XII grossly intact, DTR 2+/4. No acute focal neurological deficit. Psych/Mental Status: Normal Affect, Appropriate. Assessment & Plan Assessment/Plan (1) Hypoxia: PLAN: Plan Patient is a 59-year-old male who presented to [facility] ED on 12/23/2024 with worsening shortness of breath predominantly with any amount of exertion for 1 month. No cough, chest pain, fever or chills. No sore throat or rhinorrhea. 1. Acute hypoxic and hypercarbic respiratory with CO2 narcosis due to COPD exacerbation, SHAHANA/OHS due to morbid obesity and acute encephalopathy due to metabolic encephalopathy. [facility] Patient had hypoxia with exertion, pulse ox 85% in ED and required 2-3 L on baseline. CPAP was prescribed but patient probably did not wear it. Chest x-ray on admission was clear. 12/24: The morning patient was very lethargic sleepy and hypopneic. Minimally responsive. ABG was done. Patient was immediately moved to ICU. ABG 7.20/102.2/45 on 2 L of oxygen, total CO2 43. Baseline CO2 around 30-32, today 34.5. Patient immediately ordered BiPAP and transferred to ICU for further care. Cigarette Maker consulted Later on about 10 to 11 AM, I went to see the patient and he was waking up on the BiPAP. He responds that he can breathe on BiPAP. Repeat ABG shows 7.40/65.7/103 on BiPAP PEEP 10. Therefore patient does not need intubation. Discussed with Dr. Ovalles cleaner window about ABG and acute on chronic combined respiratory failure with CO2 narcosis. Patient is improving. Regular cleaner window consult for tomorrow. 12/25: Patient diuresed well 5.5 L. Furosemide changed to 40 mg IV daily. Discussed with the cleaner window regarding probability of obesity hypoventilation and need for BiPAP during naps and at night with titration. The patient will need to go home on a BiPAP. The patient is being managed on scheduled bronchodilator, IV Solu-Medrol, Mucinex, incentive spirometry and Pep. Urine culture negative. Acute encephalopathy resolved. 2. Acute on chronic HFpEF with recent admission from 12/15-12/18 for left lower extremity venous edema/lymphedema complicated with mild cellulitis : During last admission patient was discharged on furosemide 40 mg twice daily, metoprolol 25 mg twice daily, lisinopril 2.5 mg daily and atorvastatin 80 mg daily. Advised to continue the same. Echo 12/16/2024 suggestive of chronic HFpEF Mild concentric left ventricular hypertrophy. The LV ejection fraction is 65 %. Stage 1 diastolic dysfunction. There is mild biatrial dilatation. The study was technically difficult. First x-ray shows chronic interstitial changes, stable compressive atelectasis of the left lung base and stable elevation of left diaphragm.. Repeat chest x-ray in the morning shows worsening of vascular congestion/pulmonary edema mainly in hilar area. Patient got Lasix 40 mg IV before x-ray was done. Continue Lasix 40 IV twice daily. Heart failure core measures including intake and output, fluid restriction less than 1500 mL, daily weight monitoring, kidney and electrolytes monitoring. 12/25: Continue off treatment except furosemide changed to 40 mg IV daily. Patient was also feeling thirsty and mildly hydrated. Advised oral fluid intake. Chronic medical conditions: ? History of CAD with stenting,, history of NSVT, hypertension, hyperlipidemia: Normotensive and in normal sinus rhythm on admit. Continue home statin, Lasix, lisinopril, Lopressor, and sotalol. Notably has had issues with orthostatic hypotension, continue home midodrine. ? Type 2 diabetes mellitus with recent episodes of hypoglycemia: Recent A1c 5.3%. Had low glucose values down to the 40s during previous hospitalization. Hold long-acting insulin and other home oral medications. Will treat with sliding scale insulin with meals while inpatient, adjust as needed. 12/25: Glucose varies between 156?250. Scheduled Lantus 10 units started. ? Hypothyroidism: Continue home Synthroid. ? BPH with obstructive disease: Continue home Flomax and finasteride. ? GERD: Continue home PPI. ? Chronic iron deficiency anemia: Hemoglobin 9.1 on admit, at baseline. ? Former tobacco use: Encouraged continued cessation. DVT prophylaxis: Lovenox twice daily CODE STATUS: Full code, verified Charges/Coding Addendum Addendum: Total time of the visit including total time spent in counseling or coordination of care, (more than 50% of the total time, spent in obtaining medical information from nurses and other ancillary care providers ,explaining to the patient about labs, imaging, diagnosis and management of active complex medical conditions), management of CO2 narcosis/BiPAP, discussion with cleaner window, review of labs and imaging is 35 minutes. Visit Charges Inpatient E&M: [id number] [facility] Hosp L3
[2024-12-25] MEDS: Sotalol Hydrochloride 80 MG Tablet 120 MG PO ×2 (09:04→20:57)
[2024-12-25] MEDS: Potassium Chloride Oral Tablet 20 MEQ PO (09:20)
--- NOTE | 2024-12-25 12:16 | CON.PCM.CC_ITS ---
HPI Consult Data Date of Consult: 12/25/24 HPI Narrative Reason for Consultation: Hypercapnic Respiratory Failure HPI Narrative: Pt is a pleasant 59 yo man with multiple problems outlined below who presented to this facility on 12/23/24 with acute worsening of dyspnea. He has a chronic wound in his LLE for which he has been receiving care. He was discharged from acute care recently and went to an assisted living center but developed acute worsening of his dyspnea and presented to the ED where he was found be hypoxic with SaO2 85% on room air. He was admitted with a diagnosis of acute exacerbation of COPD. In the hospital he developed worsening hypercapnia and on the night of 12/24/24 he was transferred to the ICU when pCO2 was > 100. He was placed on bipap with subsequent improvement in level of arousal and pCO2. At the time of my exam he was sitting up in a chair. He has little memory of the events of the prior night. He states that he had a sleep study a few years ago and was told he needed CPAP (or bipap) but he never started that therapy. He no longer smokes and does not wear O2 at home. [facility] Medical History Redness of skin Thyroid disease Insulin dependent diabetes mellitus Anemia Hepatitis High cholesterol Difficulty swallowing History of diverticulitis Chronic cough History of pain when walking History of stress test History of irregular heartbeat Cellulitis Sleep apnea Lives in assisted living facility Wears glasses Wears dentures Depression Low iron Fatty liver Syncope Dietary restriction CPAP (continuous positive airway pressure) dependence Shortness of breath on exertion History of edema History of echocardiogram Cardiology follow-up encounter Tumor Atherosclerosis of coronary artery of [place] heart without angina pectoris Kidney stones COPD (chronic obstructive pulmonary disease) Former smoker Irregular heart beat NSVT (nonsustained ventricular tachycardia) Diabetes Asthma Hypothyroidism Hypertension Home Medications ?Medication ?Instructions ?Recorded ?Last Taken ?Type potassium chloride 20 mEq 20 meq PO DAILYCM SUPPLEMENT 04/23/19 12/30/23 Rx tablet,extended release(part/cryst) metformin 1,000 mg tablet 1,000 mg PO BID DIABETES 12/30/23 History tamsulosin 0.4 mg capsule 0.4 mg PO QHS PROSTATE 02/0512/29/23 History albuterol sulfate 90 mcg/actuation 2 puff inhalation Q 4H PRN 02/11/21 Unknown History aerosol inhaler SHORTNESS OF BREATH/WHEEZING montelukast 10 mg tablet 10 mg PO QHS PRN ALLERGIES 0 01/10/22 12/29/23 History (Singulair) guaifenesin 600 mg tablet, 600 mg PO Q12H PRN CONGESTI ON 02/04/22 11/18/23 History extended release 12 hr (Mucinex) fluticasone propionate 115 2 puff inhalation BID COPD 07/31/22 12/30/23 History mcg-salmeterol 21 mcg/actuation HFA inhaler (Advair HFA) blood sugar diagnostic 11/25/22 Unknown History atorvastatin 80 mg tablet 80 mg PO QHS CHOLESTEROL 12/22/24 History metoprolol tartrate 25 mg tablet 25 mg PO BID #120 tab s 03/31/24 10/20/24 Rx levothyroxine 200 mcg tablet 275 mcg PO DAILY THYROID 07/07/24 10/20/24 History omeprazole 20 mg capsule,delayed 20 mg PO DAILY GERD 0 07/13/24 10/20/24 History release semaglutide 2 mg/dose (8 mg/3 mL) 2 mg subcut QWEEK DI ABETES 07/13/24 10/06/24 History subcutaneous pen injector (Ozempic) insulin glargine 100 unit/mL (3 56 unit subcut QPM Unknown History mL) subcutaneous pen (Lantus Solostar U-100 Insulin) lisinopril 2.5 mg tablet 2.5 mg PO DAILY 10/20/24 Unk nown History finasteride 5 mg tablet (Proscar) 5 mg PO QDAY 5 Unknown History glipizide 5 mg tablet 5 mg PO QDAY 11/11/24 Unknow n History melatonin 10 mg tablet 10 mg PO QHS SLEEP 11/11/24 Unknown History sennosides 8.6 mg tablet (Greer-danyel) 17.2 mg PO QDAY Unknown History trazodone 50 mg tablet 100 mg PO QHS SLEEP 11/11/24 Unknown History bisacodyl 10 mg rectal suppository 10 mg VT ONCE PRN c onstipation 11/19/24 Unknown History furosemide 40 mg tablet 40 mg PO BID EDEMA 11/19/24 Unknown History venlafaxine 37.5 mg tablet 37.5 mg PO BID 11/19/24 Unk nown History acetaminophen 325 mg capsule 650 mg PO Q6H PRN pain 12/23/24 History ammonium lactate 12 % topical cream 1 applic topical B ID PRN dry skin 11/30/24 12/23/24 History magnesium hydroxide 400 mg/5 mL 30 ml PO DAILY PRN con stipation 11/30/24 Unknown History oral suspension (Dulcolax (magnesium hydroxide)) mineral oil-hydrophil petrolat 1 applic topical DAILY 11/30/24 Unknown History topical ointment (AmeriPhor topical ointment) ondansetron 4 mg disintegrating 4 mg PO DAILY PRN naus ea and 11/30/24 Unknown History tablet vomiting sotalol 120 mg tablet (Betapace) 120 mg PO BID 5 Unknown History cephalexin 500 mg capsule 500 mg PO TID 2 days #6 caps 12/18/24 Unknown Rx insulin lispro 100 unit/mL See Protocol subcut ACHS #0 mL 12/18/24 Unknown Rx subcutaneous pen (Humalog KwikPen (U-100) Insulin) insulin lispro 100 unit/mL See Protocol subcut ACHS 1 month 12/18/24 Unknown Rx subcutaneous pen (Humalog KwikPen #15 mL (U-100) Insulin) midodrine 10 mg tablet 10 mg PO TIDCM 30 days #90 t abs 12/18/24 Unknown Rx needle (disp) 32 gauge 32 gauge x #100 ea 12/18/24 Unk nown Rx 5/16 polyethylene glycol 3350 17 17 g PO DAILY Constipation 30 days 12/18/24 10/19/24 Rx gram/dose oral powder (Miralax) #0 grams Allergy/AdvReac Type Severity Reaction Status Date / Time No Known Allergies Allergy Verified 12/22/24 10:52 Family History Father Heart disease Hypertension Mother Brain aneurysm Surgical History History of cardiac catheterization Hx of colonoscopy History of coronary artery stent placement (01/18/21) History of thyroidectomy Social History household members: other details: Assisted living housing: assisted living facility current occupational status: disabled Smoking Status: Former smoker how long ago did patient quit smokin years ago alcohol intake: never substance use type: does not use caffeine: Yes Type: carbonated beverages Objective Data Objective Data Vital Signs: Vital Signs Last response 3 Temperature 36.9 C 12/25/24 04:00 Temperature Source Temporal 12/25/24 04:00 Pulse Rate 78 12/25/24 11:12 Respiratory Rate 16 12/25/24 11:12 Respiratory Effort Short of Breath 12/25/24 08:00 Respiratory Depth Shallow 12/25/24 08:00 Respiratory Pattern Tachypnea 12/25/24 08:00 Blood Pressure 124/64 H 12/25/24 10:00 Blood Pressure Mean 84 12/25/24 10:00 Blood Pressure Source Monitor 12/25/24 10:00 Blood Pressure Position Semi-Fowlers 12/25/24 10:00 Blood Pressure Location Right Forearm 12/25/24 10:00 Pulse Ox 93 12/25/24 11:12 Oxygen Delivery Method Nasal Cannula 12/25/24 11:12 Oxygen Flow Rate (L/min) 1.5 12/25/24 11:12 Fraction of Inspired Oxygen (FIO2) 40 12/25/24 04:00 I&O: I&O Last 24 Hours 3 12/24/24 12/25/24 12/25/24 23:59 11:59 23:59 Intake Total 1650 / 1650 910 / 910 Output Total 5475 / 5475 2200 / 2200 Balance -3825 / -3825 -1290 / -1290 I&O: Total Stay 3 12/23/24 12:52 thru 12/25/24 11:36 Intake Total 2560 Output Total 7675 Balance -1645 Current Meds Ordered / Administered: Current meds ordered / Administered 3 Generic Name Dose Route Start Last Admin Trade Name Freq PRN Reason Stop Dose Admin Acetaminophen 650 mg 12/23/24 20:30 Acetaminophen 325 Mg Tablet PO Q6H PRN PRN Pain 1-10 Or Fever>100.7 Albuterol/Ipratropium 3 ml 12/24/24 09:00 12/25/24 11:11 Ipratropium/Albuterol Sulfate 3 Ml Ampul.Neb INHALATION 3 ml Q4H.RT MARIAMA Administration Atorvastatin Calcium 80 mg 07/03/25 22:00 12/24/24 21:20 Atorvastatin Calcium 80 Mg Tablet PO 80 mg QHS MARIAMA Administration Calamine/Phenol 1 applic 12/23/24 22:00 12/25/24 09:04 Menthol/Lanolin/Calamine/Znox 113 Gm Tube TOPICAL 1 applic BID MARIAMA Administration Protocol Enoxaparin Sodium 40 mg 12/24/24 10:00 12/25/24 09:19 Enoxaparin 40 Mg/0.4 Ml Syringe SC 40 mg BID MARIAMA Administration Finasteride 5 mg 12/24/24 10:00 12/24/24 08:58 Finasteride 5 Mg Tablet PO Not Given DAILY MARIAMA Furosemide 40 mg 12/26/24 10:00 Furosemide 40 Mg/4 Ml Vial IV DAILY MARIAMA Protocol Glucagon 1 mg 12/23/24 20:30 Glucagon 1 Mg/Ml Syringe IM X1 PRN Hypoglycemia Protocol Dextrose 250 mls @ 0 mls/hr 12/23/24 20:30 Dextrose 10%-Water IV .Q0M PRN HYPOGLYCEMIA Protocol As Directed Sodium Chloride 250 mls @ 15 mls/hr 12/23/24 20:33 IV .[id number] PRN Saline Flush Sodium Chloride 250 mls @ 15 mls/hr 12/23/24 20:33 IV .[id number] PRN Additional IVPB Infusion Piperacillin Sod/Tazobactam 50 mls @ 12.5 mls/hr 12/24/24 10:00 12/25/24 05:12 Sod 3.375 gm/ Sodium Chloride IV 12.5 mls/hr Q8 MARIAMA Administration Dextrose 250 mls @ 0 mls/hr 12/25/24 10:19 Dextrose 10%-Water IV .Q0M PRN HYPOGLYCEMIA Protocol As Directed Insulin Glargine 10 unit 12/25/24 11:30 Insulin Glargine-Yfgn 100 Unit/Ml Pen SC DAILY MARIAMA Protocol Insulin Human Lispro 0 unit 12/23/24 22:00 12/25/24 09:00 Insulin Lispro 100 Unit/Ml Insuln.Pen SC 2 u ACHS MARIAMA Administration Protocol Levothyroxine Sodium 200 mcg 12/24/24 06:00 12/25/24 05:12 Levothyroxine 100 Mcg Tablet PO 200 mcg DAILY@0600 MARIAMA Administration Levothyroxine Sodium 75 mcg 12/24/24 06:00 12/25/24 05:12 Levothyroxine 75 Mcg Tablet PO 75 mcg DAILY@0600 MARIAMA Administration Lisinopril 2.5 mg 12/24/24 10:00 12/25/24 09:08 Lisinopril 2.5 Mg Tablet PO Not Given DAILY MARIAMA Protocol Melatonin 10 mg 12/23/24 22:00 12/24/24 21:34 Melatonin 10 Mg Tablet PO 10 mg QHS MARIAMA Administration Methylprednisolone Sodium Succinate 40 mg 12/24/24 08:55 12/25/24 05:12 Methylprednisolone Sod Succ 40 Mg/Ml Vial IV 40 mg Q8 MARIAMA Administration
--- NOTE | 2024-12-25 12:16 | PCMCONS.TICU ---
HPI Consult Data Date of Consult: 12/25/24 HPI Narrative Reason for Consultation: Hypercapnic Respiratory Failure HPI Narrative: Pt is a pleasant 59 yo man with multiple problems outlined below who presented to this facility on 12/23/24 with acute worsening of dyspnea. He has a chronic wound in his LLE for which he has been receiving care. He was discharged from acute care recently and went to an assisted living center but developed acute worsening of his dyspnea and presented to the ED where he was found be hypoxic with SaO2 85% on room air. He was admitted with a diagnosis of acute exacerbation of COPD. In the hospital he developed worsening hypercapnia and on the night of 12/24/24 he was transferred to the ICU when pCO2 was > 100. He was placed on bipap with subsequent improvement in level of arousal and pCO2. At the time of my exam he was sitting up in a chair. He has little memory of the events of the prior night. He states that he had a sleep study a few years ago and was told he needed CPAP (or bipap) but he never started that therapy. He no longer smokes and does not wear O2 at home. [facility] Medical History Redness of skin Thyroid disease Insulin dependent diabetes mellitus Anemia Hepatitis High cholesterol Difficulty swallowing History of diverticulitis Chronic cough History of pain when walking History of stress test History of irregular heartbeat Cellulitis Sleep apnea Lives in assisted living facility Wears glasses Wears dentures Depression Low iron Fatty liver Syncope Dietary restriction CPAP (continuous positive airway pressure) dependence Shortness of breath on exertion History of edema History of echocardiogram Cardiology follow-up encounter Tumor Atherosclerosis of coronary artery of [place] heart without angina pectoris Kidney stones COPD (chronic obstructive pulmonary disease) Former smoker Irregular heart beat NSVT (nonsustained ventricular tachycardia) Diabetes Asthma Hypothyroidism Hypertension Home Medications ?Medication ?Instructions ?Recorded ?Last Taken ?Type potassium chloride 20 mEq 20 meq PO DAILYCM SUPPLEMENT 04/23/19 12/30/23 Rx tablet,extended release(part/cryst) metformin 1,000 mg tablet 1,000 mg PO BID DIABETES 01/18/21 12/30/23 History tamsulosin 0.4 mg capsule 0.4 mg PO QHS PROSTATE 02/05/21 12/29/23 History albuterol sulfate 90 mcg/actuation 2 puff inhalation Q4H PRN 02/11/21 Unknown History aerosol inhaler SHORTNESS OF BREATH/WHEEZING montelukast 10 mg tablet 10 mg PO QHS PRN ALLERGIES 01/10/22 12/29/23 History (Singulair) guaifenesin 600 mg tablet, 600 mg PO Q12H PRN CONGESTION 02/04/22 11/18/23 History extended release 12 hr (Mucinex) fluticasone propionate 115 2 puff inhalation BID COPD 07/31/22 12/30/23 History mcg-salmeterol 21 mcg/actuation HFA inhaler (Advair HFA) blood sugar diagnostic 11/25/22 Unknown History atorvastatin 80 mg tablet 80 mg PO QHS CHOLESTEROL 11/18/23 12/22/24 History metoprolol tartrate 25 mg tablet 25 mg PO BID #120 tabs 03/31/24 10/20/24 Rx levothyroxine 200 mcg tablet 275 mcg PO DAILY THYROID 07/07/24 10/20/24 History omeprazole 20 mg capsule,delayed 20 mg PO DAILY GERD 07/13/24 10/20/24 History release semaglutide 2 mg/dose (8 mg/3 mL) 2 mg subcut QWEEK DIABETES 07/13/24 10/06/24 History subcutaneous pen injector (Ozempic) insulin glargine 100 unit/mL (3 56 unit subcut QPM 09/13/24 Unknown History mL) subcutaneous pen (Lantus Solostar U-100 Insulin) lisinopril 2.5 mg tablet 2.5 mg PO DAILY 10/20/24 Unknown History finasteride 5 mg tablet (Proscar) 5 mg PO QDAY 11/11/24 Unknown History glipizide 5 mg tablet 5 mg PO QDAY 11/11/24 Unknown History melatonin 10 mg tablet 10 mg PO QHS SLEEP 11/11/24 Unknown History sennosides 8.6 mg tablet (Greer-danyel) 17.2 mg PO QDAY 11/11/24 Unknown History trazodone 50 mg tablet 100 mg PO QHS SLEEP 11/11/24 Unknown History bisacodyl 10 mg rectal suppository 10 mg LA ONCE PRN constipation 11/19/24 Unknown History furosemide 40 mg tablet 40 mg PO BID EDEMA 11/19/24 Unknown History venlafaxine 37.5 mg tablet 37.5 mg PO BID 11/19/24 Unknown History acetaminophen 325 mg capsule 650 mg PO Q6H PRN pain 11/30/24 12/23/24 History ammonium lactate 12 % topical cream 1 applic topical BID PRN dry skin 11/30/24 12/23/24 History magnesium hydroxide 400 mg/5 mL 30 ml PO DAILY PRN constipation 11/30/24 Unknown History oral suspension (Dulcolax (magnesium hydroxide)) mineral oil-hydrophil petrolat 1 applic topical DAILY 11/30/24 Unknown History topical ointment (AmeriPhor topical ointment) ondansetron 4 mg disintegrating 4 mg PO DAILY PRN nausea and 11/30/24 Unknown History tablet vomiting sotalol 120 mg tablet (Betapace) 120 mg PO BID 11/30/24 Unknown History cephalexin 500 mg capsule 500 mg PO TID 2 days #6 caps 12/18/24 Unknown Rx insulin lispro 100 unit/mL See Protocol subcut ACHS #0 mL 12/18/24 Unknown Rx subcutaneous pen (Humalog KwikPen (U-100) Insulin) insulin lispro 100 unit/mL See Protocol subcut ACHS 1 month 12/18/24 Unknown Rx subcutaneous pen (Humalog KwikPen #15 mL (U-100) Insulin) midodrine 10 mg tablet 10 mg PO TIDCM 30 days #90 tabs 12/18/24 Unknown Rx needle (disp) 32 gauge 32 gauge x #100 ea 12/18/24 Unknown Rx 5/16 polyethylene glycol 3350 17 17 g PO DAILY Constipation 30 days 12/18/24 10/19/24 Rx gram/dose oral powder (Miralax) #0 grams Allergy/AdvReac Type Severity Reaction Status Date / Time No Known Allergies Allergy Verified 12/22/24 10:52 Family History Father Heart disease Hypertension Mother Brain aneurysm Surgical History History of cardiac catheterization Hx of colonoscopy History of coronary artery stent placement (01/18/21) History of thyroidectomy Social History household members: other details: Assisted living housing: assisted living facility current occupational status: disabled Smoking Status: Former smoker how long ago did patient quit smokin years ago alcohol intake: never substance use type: does not use caffeine: Yes Type: carbonated beverages Objective Data Objective Data Vital Signs: Vital Signs Last response Temperature 36.9 C 12/25/24 04:00 Temperature Source Temporal 12/25/24 04:00 Pulse Rate 78 12/25/24 11:12 Respiratory Rate 16 12/25/24 11:12 Respiratory Effort Short of Breath 12/25/24 08:00 Respiratory Depth Shallow 12/25/24 08:00 Respiratory Pattern Tachypnea 12/25/24 08:00 Blood Pressure 124/64 H 12/25/24 10:00 Blood Pressure Mean 84 12/25/24 10:00 Blood Pressure Source Monitor 12/25/24 10:00 Blood Pressure Position Semi-Fowlers 12/25/24 10:00 Blood Pressure Location Right Forearm 12/25/24 10:00 Pulse Ox 93 12/25/24 11:12 Oxygen Delivery Method Nasal Cannula 12/25/24 11:12 Oxygen Flow Rate (L/min) 1.5 12/25/24 11:12 Fraction of Inspired Oxygen (FIO2) 40 12/25/24 04:00 I&O: I&O Last 24 Hours 12/24/24 12/25/24 12/25/24 23:59 11:59 23:59 Intake Total 1650 / 1650 910 / 910 Output Total 5475 / 5475 2200 / 2200 Balance -3825 / -3825 -1290 / -1290 I&O: Total Stay 12/23/24 12:52 thru 12/25/24 11:36 Intake Total 2560 Output Total 0315 Balance -0691 Current Meds Ordered / Administered: Current meds ordered / Administered Generic Name Dose Route Start Last Admin Trade Name Freq PRN Reason Stop Dose Admin Acetaminophen 650 mg 12/23/24 20:30 Acetaminophen 325 Mg Tablet PO Q6H PRN PRN Pain 1-10 Or Fever>100.7 Albuterol/Ipratropium 3 ml 12/24/24 09:00 12/25/24 11:11 Ipratropium/Albuterol Sulfate 3 Ml Ampul.Neb INHALATION 3 ml Q4H.RT MRAIAMA Administration Atorvastatin Calcium 80 mg 12/23/24 22:00 12/24/24 21:20 Atorvastatin Calcium 80 Mg Tablet PO 80 mg QHS MARIAMA Administration Calamine/Phenol 1 applic 12/23/24 22:00 12/25/24 09:04 Menthol/Lanolin/Calamine/Znox 113 Gm Tube TOPICAL 1 applic BID MARIAMA Administration Protocol Enoxaparin Sodium 40 mg 12/24/24 10:00 12/25/24 09:19 Enoxaparin 40 Mg/0.4 Ml Syringe SC 40 mg BID MARIAMA Administration Finasteride 5 mg 12/24/24 10:00 12/24/24 08:58 Finasteride 5 Mg Tablet PO Not Given DAILY [facility] Furosemide 40 mg 12/26/24 10:00 Furosemide 40 Mg/4 Ml Vial IV DAILY MARIAMA Protocol Glucagon 1 mg 12/23/24 20:30 Glucagon 1 Mg/Ml Syringe IM X1 PRN Hypoglycemia Protocol Dextrose 250 mls @ 0 mls/hr 12/23/24 20:30 Dextrose 10%-Water IV .Q0M PRN HYPOGLYCEMIA Protocol As Directed Sodium Chloride 250 mls @ 15 mls/hr 12/23/24 20:33 IV .[id number] PRN Saline Flush Sodium Chloride 250 mls @ 15 mls/hr 12/23/24 20:33 IV .[id number] PRN Additional IVPB Infusion Piperacillin Sod/Tazobactam 50 mls @ 12.5 mls/hr 12/24/24 10:00 12/25/24 05:12 Sod 3.375 gm/ Sodium Chloride IV 12.5 mls/hr Q8 MARIAMA Administration Dextrose 250 mls @ 0 mls/hr 12/25/24 10:19 Dextrose 10%-Water IV .Q0M PRN HYPOGLYCEMIA Protocol As Directed Insulin Glargine 10 unit 12/25/24 11:30 Insulin Glargine-Yfgn 100 Unit/Ml Pen SC DAILY MARIAMA Protocol Insulin Human Lispro 0 unit 12/23/24 22:00 12/25/24 09:00 Insulin Lispro 100 Unit/Ml Insuln.Pen SC 2 u ACHS MARIAMA Administration Protocol Levothyroxine Sodium 200 mcg 12/24/24 06:00 12/25/24 05:12 Levothyroxine 100 Mcg Tablet PO 200 mcg DAILY@0600 MARIAMA Administration Levothyroxine Sodium 75 mcg 12/24/24 06:00 12/25/24 05:12 Levothyroxine 75 Mcg Tablet PO 75 mcg DAILY@0600 MARIAMA Administration Lisinopril 2.5 mg 12/24/24 10:00 12/25/24 09:08 Lisinopril 2.5 Mg Tablet PO Not Given DAILY MARIAMA Protocol Melatonin 10 mg 12/23/24 22:00 12/24/24 21:34 Melatonin 10 Mg Tablet PO 10 mg QHS MARIAMA Administration Methylprednisolone Sodium Succinate 40 mg 12/24/24 08:55 12/25/24 05:12 Methylprednisolone Sod Succ 40 Mg/Ml Vial IV 40 mg Q8 MARIAMA Administration Metoprolol Tartrate 25 mg 12/23/24 22:00 12/25/24 09:05 Metoprolol Tartrate 25 Mg Tablet PO 25 mg BID MARIAMA Administration Protocol Midodrine 10 mg 12/24/24 08:00 12/25/24 09:03 Midodrine Hcl 5 Mg Tablet PO 10 mg TIDCM MARIAMA Administration Montelukast Sodium 10 mg 12/23/24 20:30 Montelukast 10 Mg Tablet PO QHS PRN ALLERGIES Nystatin 1 applic 12/23/24 22:00 12/25/24 09:06 Nystatin Powder 15gm Bottle TOPICAL 1 applic BID MARIAMA Administration Protocol Ondansetron HCl 4 mg 12/23/24 20:30 Ondansetron 4 Mg/2 Ml Vial IV Q8H PRN PRN NAUSEA/VOMITING Pantoprazole Sodium 20 mg 12/24/24 10:00 12/25/24 09:07 Pantoprazole Sodium 20 Mg Tablet PO 20 mg DAILY MARIAMA Administration Polyethylene Glycol 17 gm 12/23/24 20:49 Polyethylene Glycol 3350 17 Gm Packet PO DAILY PRN constipation Potassium Chloride 20 meq 12/24/24 08:00 12/25/24 09:20 Potassium Chloride Oral Tablet 20 Meq PO 20 meq DAILYCM MARIAMA Administration Senna/Docusate Sodium 2 tablet 12/24/24 09:51 Senna/Docusate Sodium 1 Tablet PO BID PRN PRN Constipation Sodium Chloride 10 - 40 ml 12/23/24 20:33 12/25/24 09:20 0.9% Saline Lock 10 Ml Syringe IV 20 ml UD PRN Administration SALINE FLUSH Sotalol HCl 120 mg 12/23/24 22:00 12/25/24 09:04 Sotalol Hydrochloride 80 Mg Tablet PO 120 mg BID MARIAMA Administration Tamsulosin HCl 0.4 mg 12/23/24 22:00 12/24/24 21:20 Tamsulosin Hcl 0.4 Mg Capsule PO 0.4 mg QHS MARIAMA Administration Physical Exam Narrative G- A&O x 3, NAD ENT- sclera anicteric, moist mm, neck obscured by frances CV-rrr no mrg, nl s1 s2 L- occ wheeze, overall fair air movement and no use of accessory muscles Ab- s nt nd nl bs Ext- wound care dressing in place Neuro- no focal deficits Psych- nl mood/affect Lab / Micro Data Attestation: I reviewed the patient's lab results. 12/25/24 05:24 12/25/24 05:24 Labs: Laboratory Results - last 24 hr 12/24/24 05:32: Magnesium 2.1, Total Bilirubin 0.51, Direct Bilirubin 0.26, AST 32, ALT 19, Alkaline Phosphatase 225 H, Total Protein 7.1, Albumin 3.3 L, Globulin 3.8 12/24/24 16:40: POC Glucose 119 H 12/24/24 21:26: POC Glucose 257 H 12/25/24 05:24: WBC 12.0 H, RBC 4.13 L, Hgb 8.4 L, Hct 30.6 L, MCV 74.1 L D, MCH 20.3 L, MCHC 27.5 L D, RDW Std Deviation 54.2 H, RDW Coeff of Jovany 20.3 H, Plt Count 187, MPV 9.4, Immature Gran % (Auto) 0.600, Neut % (Auto) 90.4 H, Lymph % (Auto) 6.2 L, [place] % (Auto) 2.7, Eos % (Auto) 0.0, Baso % (Auto) 0.1, Absolute Neuts (auto) 10.9 H, Absolute Lymphs (auto) 0.74 L, Nucleated RBC % 0, Differential Comment SCANNED, Anisocytosis 1+, Microcytosis 1+, Sodium 133, Potassium 4.5, Chloride 91 L, Carbon Dioxide 31.8, Anion Gap 10, BUN 18, Creatinine 0.79, Estim Creat Clear Calc 151.66, Est GFR (MDRD) Non-Af 103, BUN/Creatinine Ratio 22.9 H, Glucose 170 H, Calcium 8.4 12/25/24 08:52: POC Glucose 156 H 12/25/24 11:14: POC Glucose 209 H Micro: Microbiology 12/24/24 09:35 Urine Catheter - Lezama Urine Culture - Preliminary Culture exhibits no growth. Assessment and Plan . Assessment and plan: Assessment: Acute Exacerbation of COPD Acute Hypercapnic and Hypoxemic Respiratory Failure HFpEF Mild Protein Calorie Malnutrition Leukocytosis Sleep Disordered Breathing Cardiogenic Pulmonary Edema Volume Overload Chronic Wound Infection of Lower Extremity -excellent response to measures taken overnight -cont diuresis as tolerated; he may have mobilized some previously third spaced fluid contributing to dyspna -cont wound care -transition to pred taper -Bipap reccommendations: Start IPAP 12-15 cm H20, EPAP 4-5 cm H20; O2 as needed to keep SaO2 90-94% Titrate IPAP as tolerated for effect/comfort -[facility] generally will approve non-invasive ventilation for COPD patients with hypercapnia provided there is an ABG on prescribed amount of O2 which demonstrates a pCO2 > 45 mm Hg. Rec getting an ABG prior to discharge (provided he is compensated) and referring to case management for arranging the DME logistics. If his CO2 does not meet requirements he will need an outpt polysomnogram The entirety of this encounter was done via Telemedicine
[2024-12-25] MEDS: Insulin Glargine-YFGN 100 UNIT/ML Pen 10 UNIT SC (12:27)
--- NOTE | 2024-12-25 12:35 | CASEMGMT ---
CHIRAG NAVAS readmission Note: Pt was recently hospitalized from 12/15 to 12/18 for a left lower extremity wound concerning for cellulitis.During his prior admission, he was noted to be hypoxic, requiring 2 L of supplemental oxygen. The hypoxia was believed to be multifactorial, likely due to COPD, HFpEF, obstructive sleep apnea (SHAHANA), and obesity hypoventilation syndrome. He was discharged to [facility] with HHC set up through [facility]. Pt received home O2 testing and did not require O2 at time of discharge. The patient presented to the [facility] Emergency Department on 12/23/2024 with worsening shortness of breath. He reports increased dyspnea, particularly with exertion. His oxygen saturation dropped to 85% with ambulation. CHIRAG NAVAS into pt room, pt states he would like to returen to [facility] at time of DC with [facility] again. Pt denies any additional DC needs at this time.
[2024-12-25] MEDS: MELATONIN 10 MG TABLET PO (20:58)
[2024-12-26] VITALS (15 sets, daily range): BP systolic 118–151; BP diastolic 64–77; PULSE 65–78; RESP 12–20; TEMP 35.9–36.7; O2SAT 96–100
[2024-12-26 05:51] LABS: Hematocrit 32.2 % (40-54); Hemoglobin 8.6 g/dL (13.0-16.5); Immature Granulocytes Count 0.080 X10^3/uL (0.0-0.0); Mean Corp Hgb Conc 26.7 g/dL (32-36); Mean Corpuscular Volume 74.4 fL (80-94); Mean Platelet Vol. 9.6 fl (6.2-12.0); NRBC Flagged by Analyzer 0 % (0-5); POSITIVE MORPHOLOGY YES; Platelet Count 222 K/mm3 (150-450); RBC Distribution Width CV 20.6 % (11.6-14.6); RBC Distribution Width SD 55.0 fl (35.1-43.9); Red Blood Count 4.33 M/mm3 (4.6-6.2); White Blood Count 14.8 K/mm3 (4.4-11.0)
[2024-12-26 05:57] LABS: Differential Indicated SCAN CRITERIA MET
[2024-12-26 06:15] LABS: Anion Gap 9 (5-15); BUN 17 mg/dL (4-19); BUN/Creat Ratio 23.8 RATIO (10-20); Calcium,Total 8.7 mg/dL (7.6-11.0); Carbon Dioxide 32.3 mmol/L (21.0-32.0); Chloride 93 mmol/L (98-108); Estimated Creatinine Clearance 166.41 ml/min (50-250); Glucose 139 mg/dL (70-99); Potassium 4.4 mmol/L (3.3-5.1)
[2024-12-26] MEDS: Piperacil/Tazobactam 3.375 GM in 0.9% Normal Saline (50mL MB+) 50 ML IV ×2 (06:31→13:22)
[2024-12-26] MEDS: 0.9% Saline Lock 10 ML Syringe IV ×3 (06:31→17:01)
[2024-12-26 07:06] LABS: Anisocytosis 2+
[2024-12-26] MEDS: Potassium Chloride Oral Tablet 20 MEQ PO (08:23)
[2024-12-26] MEDS: Sotalol Hydrochloride 80 MG Tablet 120 MG PO ×2 (08:25→21:16)
[2024-12-26] MEDS: Insulin Glargine-YFGN 100 UNIT/ML Pen 10 UNIT SC (08:28)
--- NOTE | 2024-12-26 13:09 | PN.CC_ITS ---
Objective Data Objective Data Vital Signs: Vital Signs Last response 3 Temperature 36.2 C L 12/26/24 10:19 Temperature Source Temporal 12/26/24 10:19 Pulse Rate 78 12/26/24 10:58 Pulse Strength Weak (1+) 12/26/24 08:25 Respiratory Rate 18 12/26/24 10:58 Respiratory Effort Normal, Non-Labored 12/26/24 08:25 Respiratory Depth Normal 12/26/24 08:25 Respiratory Pattern Normal 12/26/24 10:58 Blood Pressure 136/77 H 12/26/24 10:19 Blood Pressure Mean 96 12/26/24 10:19 Blood Pressure Source Monitor 12/25/24 10:00 Blood Pressure Position Semi-Fowlers 12/25/24 10:00 Blood Pressure Location Right Forearm 12/25/24 10:00 Pulse Ox 96 12/26/24 10:19 Oxygen Delivery Method Nasal Cannula 12/26/24 10:19 Oxygen Flow Rate (L/min) 1 12/26/24 10:19 Fraction of Inspired Oxygen (FIO2) 30 12/26/24 03:16 I&O: I&O Last 24 Hours 3 12/25/24 12/26/24 12/26/24 23:59 11:59 23:59 Intake Total 645 / 1795 696.67 / 696.67 Output Total 1150 / 4500 3100 / 3100 Balance -505 / -2705 -2403.33 / -2403.33 I&O: Total Stay 3 12/23/24 12:52 thru 12/26/24 11:28 Intake Total 3901.67 Output Total 33241 Balance -8023.33 Current Meds Ordered / Administered: Current meds ordered / Administered 3 Generic Name Dose Route Start Last Admin Trade Name Freq PRN Reason Stop Dose Admin Acetaminophen 650 mg 12/23/24 20:30 Acetaminophen 325 Mg Tablet PO Q6H PRN PRN Pain 1-10 Or Fever>100.7 Albuterol/Ipratropium 3 ml 12/24/24 09:00 12/26/24 10:57 Ipratropium/Albuterol Sulfate 3 Ml Ampul.Neb INHALATION 3 ml Q4H.RT MARIAMA Administration Atorvastatin Calcium 80 mg 12/23/24 22:00 12/25/24 20:56 Atorvastatin Calcium 80 Mg Tablet PO 80 mg QHS MARIAMA Administration Calamine/Phenol 1 applic 12/23/24 22:00 12/26/24 08:24 Menthol/Lanolin/Calamine/Znox 113 Gm Tube TOPICAL 1 applic BID MARIAMA Administration Protocol Enoxaparin Sodium 40 mg 12/24/24 10:00 12/26/24 08:26 Enoxaparin 40 Mg/0.4 Ml Syringe SC 40 mg BID MARIAMA Administration Finasteride 5 mg 12/24/24 10:00 12/26/24 08:26 Finasteride 5 Mg Tablet PO 5 mg DAILY MARIAMA Administration Furosemide 40 mg 12/26/24 10:00 12/26/24 10:19 Furosemide 40 Mg/4 Ml Vial IV 40 mg DAILY MARIAMA Administration Protocol Glucagon 1 mg 12/23/24 20:30 Glucagon 1 Mg/Ml Syringe IM X1 PRN Hypoglycemia Protocol Dextrose 250 mls @ 0 mls/hr 12/23/24 20:30 Dextrose 10%-Water IV .Q0M PRN HYPOGLYCEMIA Protocol As Directed Sodium Chloride 250 mls @ 15 mls/hr 12/23/24 20:33 IV .[id number] PRN Saline Flush Sodium Chloride 250 mls @ 15 mls/hr 12/23/24 20:33 IV .[id number] PRN Additional IVPB Infusion Piperacillin Sod/Tazobactam 50 mls @ 12.5 mls/hr 12/24/24 10:00 12/26/24 10:31 Sod 3.375 gm/ Sodium Chloride IV Infused Q8 MARIAMA Infusion Dextrose 250 mls @ 0 mls/hr 12/25/24 10:19 Dextrose 10%-Water IV .Q0M PRN HYPOGLYCEMIA Protocol As Directed Insulin Glargine 10 unit 12/25/24 11:30 12/26/24 08:28 Insulin Glargine-Yfgn 100 Unit/Ml Pen SC 10 unit DAILY MARIAMA Administration Protocol Insulin Human Lispro 0 unit 12/23/24 22:00 12/26/24 11:44 Insulin Lispro 100 Unit/Ml Insuln.Pen SC 4 u ACHS MARIAMA Administration Protocol Levothyroxine Sodium 200 mcg 12/24/24 06:00 12/26/24 06:31 Levothyroxine 100 Mcg Tablet PO 200 mcg DAILY@0600 MARIAMA Administration Levothyroxine Sodium 75 mcg 12/24/24 06:00 07/06/25 06:31 Levothyroxine 75 Mcg Tablet PO 75 mcg DAILY@0600 MARIAMA Administration Lisinopril 2.5 mg 12/24/24 10:00 12/26/24 10:19 Lisinopril 2.5 Mg Tablet PO 2.5 mg DAILY MARIAMA Administration Protocol Melatonin 10 mg 12/23/24 22:00 12/25/24 20:58 Melatonin 10 Mg Tablet PO 10 mg QHS MARIAMA Administration Methylprednisolone Sodium Succinate 40 mg 12/24/24 08:55 12/26/24 06:31 Methylprednisolone Sod Succ 40 Mg/Ml Vial IV 40 mg Q8 MARIAMA Administration Metoprolol Tartrate 25 mg 12/23/24 22:00 12/26/24 08:26 Metoprolol Tartrate 25 Mg Tablet PO 25 mg BID MARIAMA Administration Protocol Midodrine 10 mg 12/24/24 08:00 12/26/24 11:44 Midodrine Hcl 5 Mg Tablet PO 10 mg TIDCM MARIAMA Administration Montelukast Sodium 10 mg 12/23/24 20:30 Montelukast 10 Mg Tablet PO QHS PRN ALLERGIES Nystatin 1 applic 12/23/24 22:00 12/26/24 08:26 Nystatin Powder 15gm Bottle TOPICAL 1 applic BID [facility] Administration Protocol Ondansetron HCl 4 mg 12/23/24 20:30 Ondansetron 4 Mg/2 Ml Vial IV Q8H PRN PRN NAUSEA/VOMITING Pantoprazole Sodium 20 mg 12/24/24 10:00 12/26/24 08:25 Pantoprazole Sodium 20 Mg Tablet PO 20 mg DAILY MARIAMA Administration Polyethylene Glycol 17 gm 12/23/24 20:49 Polyethylene Glycol 3350 17 Gm Packet PO DAILY PRN constipation Potassium Chloride 20 meq 12/24/24 08:00 12/26/24 08:23 Potassium Chloride Oral Tablet 20 Meq PO 20 meq DAILYCM MARIAMA Administration Senna/Docusate Sodium 2 tablet 12/24/24 09:51 Senna/Docusate Sodium 1 Tablet PO BID PRN PRN Constipation Sodium Chloride 10 - 40 ml 12/23/24 20:33 12/26/24 10:19 0.9% Saline Lock 10 Ml Syringe IV 10 ml UD PRN Administration SALINE FLUSH Sotalol HCl 120 mg 12/23/24 22:00 12/26/24 08:25 Sotalol Hydrochloride 80 Mg Tablet PO 120 mg BID MARIAMA Administration Tamsulosin HCl 0.4 mg 12/23/24 22:00 12/25/24 20:57 Tamsulosin Hcl 0.4 Mg Capsule PO 0.4 mg QHS MARIAMA Administration Medical Records Data Attestation: I reviewed the patient's medical records Lab / Micro Data Attestation: I reviewed the patient's lab results. 12/26/24 04:26 12/26/24 04:26 Labs: Laboratory Results - last 24 hr 12/25/24 16:48: POC Glucose 153 H 12/25/24 21:00: POC Glucose 304 H 12/26/24 04:26: WBC 14.8 H, RBC 4.33 L, Hgb 8.6 L, Hct 32.2 L, MCV 74.4 L, MCH 19.9 L, MCHC 26.7 L, RDW Std Deviation 55.0 H, RDW Coeff of Jovany 20.6 H, Plt Count 222, MPV 9.6, Immature Gran % (Auto) 0.500, Neut % (Auto) 89.7 H, Lymph % (Auto) 5.9 L, [place] % (Auto) 3.8, Eos % (Auto) 0.0, Baso % (Auto) 0.1, Absolute Neuts (auto) 13.3 H, Absolute Lymphs (auto) 0.88, Nucleated RBC % 0, Anisocytosis 2+, Sodium 134, Potassium 4.4, Chloride 93 L, Carbon Dioxide 32.3 H , Anion Gap 9, BUN 17, Creatinine 0.72, Estim Creat Clear Calc 166.41, Est GFR (MDRD) Non-Af 105, BUN/Creatinine Ratio 23.8 H, Glucose 139 H, Calcium 8.7 12/26/24 06:27: POC Glucose 144 H 12/26/24 11:42: POC Glucose 250 H Micro: Microbiology 12/24/24 09:35 Urine Catheter - Lezama Urine Culture - Final Culture exhibits no growth. Assessment and Plan . Assessment and plan: Assessment: Acute Exacerbation of COPD Acute Hypercapnic and Hypoxemic Respiratory Failure HFpEF Mild Protein Calorie Malnutrition Leukocytosis Sleep Disordered Breathing Cardiogenic Pulmonary Edema Volume Overload Chronic Wound Infection of Lower Extremity -cont diuresis as tolerated -cont wound care -transition to pred taper -Bipap recommendations: Start IPAP 12-15 cm H20, EPAP 4-5 cm H20; O2 as needed to keep SaO2 90-94% Titrate IPAP as tolerated for effect/comfort -[facility] generally will approve non-invasive ventilation for COPD patients with hypercapnia provided there is an ABG on prescribed amount of O2 which demonstrates a pCO2 > 45 mm Hg. Rec getting an ABG prior to discharge (provided he is compensated) and referring to case management for arranging the DME logistics. If his CO2 does not meet requirements he will need an outpt polysomnogram Case management/SW will assess options moving forward. May benefit from IPR or SNF. The entirety of this encounter was done via Telemedicine Physical Exam Const alert and oriented x3 General Appearance: cooperative HEENT normocephalic Eyes no scleral icterus Resp normal respiratory effort and no use of accessory muscles Effort and Inspection: able to speak in complete sentences Auscultation: clear to auscultation bilaterally Cardio regular rate, regular rhythm, S1 normal heart sound, no murmurs, no rub and no gallops GI normal to inspection, nondistended, normoactive bowel sounds Extremity no clubbing, cyanosis or edema Extremity Narrative: LE dressing intact Neuro oriented x3, moves all extremities and no focal motor deficits Psych cooperative and affect normal Appearance: well kempt Speech: normal speech Subjective Subjective Sitting up in chair. Had some trouble getting comfortable with bipap last night but wore it for at least one 3 hour stretch. Overall breathing comfortably. Concerned that Assisted Living won't be able to meet his immediate needs.
--- NOTE | 2024-12-26 14:16 | PN.HOSP_ITS ---
Reason for Visit Reason for Visit: Diagnoses Hypoxemia (12/23/24) Objective Data Objective Data Vital Signs: Vital Signs Temp Pulse Resp BP Pulse Ox O2 Del Method O2 Flow Rate 97.1 F L 78 18 136/77 H 96 Nasal Cannula 1 12/26/24 10:19 12/26/24 10:58 12/26/24 10:58 12/26/24 10:19 12/26/24 10:19 12/26/24 10:19 12/26/24 10:19 FiO2 30 12/26/24 03:16 Oxygen Flow Rate (L/min) 1 Oxygen Delivery Method Nasal Cannula Weight: 322 lb 12.108 oz Body Mass Index (BMI) 42.5 Intake & Output: Intake and Output for Last 24 Hours 12/24/24 12/25/24 12/26/24 23:59 23:59 23:59 Intake Total 1650 / 1650 1555 / 1795 696.67 / 696.67 Output Total 5475 / 5475 3350 / 4500 3100 / 3100 Balance -3825 / -3825 -1795 / -2705 -2403.33 / -2403.33 Lab / Micro Data 12/26/24 04:26 12/26/24 04:26 Labs: Laboratory Results - last 24 hr 12/25/24 16:48: POC Glucose 153 H 12/25/24 21:00: POC Glucose 304 H 12/26/24 04:26: WBC 14.8 H, RBC 4.33 L, Hgb 8.6 L, Hct 32.2 L, MCV 74.4 L, MCH 19.9 L, MCHC 26.7 L, RDW Std Deviation 55.0 H, RDW Coeff of Jovany 20.6 H, Plt Count 222, MPV 9.6, Immature Gran % (Auto) 0.500, Neut % (Auto) 89.7 H, Lymph % (Auto) 5.9 L, [place] % (Auto) 3.8, Eos % (Auto) 0.0, Baso % (Auto) 0.1, Absolute Neuts (auto) 13.3 H, Absolute Lymphs (auto) 0.88, Nucleated RBC % 0, Anisocytosis 2+, Sodium 134, Potassium 4.4, Chloride 93 L, Carbon Dioxide 32.3 H , Anion Gap 9, BUN 17, Creatinine 0.72, Estim Creat Clear Calc 166.41, Est GFR (MDRD) Non-Af 105, BUN/Creatinine Ratio 23.8 H, Glucose 139 H, Calcium 8.7 12/26/24 06:27: POC Glucose 144 H 12/26/24 11:42: POC Glucose 250 H Micro: Microbiology 12/24/24 09:35 Urine Catheter - Lezama Urine Culture - Final Culture exhibits no growth. Physical Exam Narrative Seen and examined Yesterday, patient was transferred to PCU. He did well on BiPAP last night. No acute issues. On baseline 2 L of oxygen. No chest pain shortness of breath. Physical exam General: Alert, Oriented x3, Cooperative HEENT: Atraumatic, PERRLA, EOMI, Normocephalic. Oral: No Gingival or Mucosal Lesions/ Ulcerations Neck: Supple, No JVD, Negative Carotid Bruits Chest wall/Lungs: Air entry diminished in bilateral lungs. Lungs clear. BiPAP as needed at night Cardiovascular: Regular rate and rhythm, Normal S1,S2, No M/G/R Abdomen: Bowel Sounds sluggish, Soft, Non Tender, abdominal fat/swelling : No dysuria. No renal angle tenderness. No suprapubic tenderness. Extremities: Bilateral 2+ edema, ambulatory. Capillary Refill Less than 3 Seconds Skin: NBilateral venous congestion suggestive of venous hypertension/stasis, dressing. Musculoskeletal: No Tenderness to Palpation of Joints or Extremities Neurological: Cranial nerves II-XII grossly intact, DTR 2+/4. No acute focal neurological deficit. Psych/Mental Status: Normal Affect, Appropriate. Assessment & Plan Assessment/Plan (1) Hypoxia: PLAN: Plan Patient is a 59-year-old male who presented to [facility] ED on 12/23/2024 with worsening shortness of breath predominantly with any amount of exertion for 1 month. No cough, chest pain, fever or chills. No sore throat or rhinorrhea. 1. Acute hypoxic and hypercarbic respiratory with CO2 narcosis due to COPD exacerbation, SHAAHNA/OHS due to morbid obesity and acute encephalopathy due to metabolic encephalopathy. Initially patient was admitted to Medr floor. Patient had hypoxia with exertion, pulse ox 85% in ED and required 2-3 L on baseline. CPAP was prescribed but patient probably did not wear it. Chest x- ray on admission was clear. 12/24: The morning patient was very lethargic sleepy and hypopneic. Minimally responsive. ABG was done. Patient was immediately moved to ICU. ABG 7.20/102.2/45 on 2 L of oxygen, total CO2 43. Baseline CO2 around 30-32, today 34.5. Patient immediately ordered BiPAP and transferred to ICU for further care. [employer] Tech consulted Later on about 10 to 11 AM, I went to see the patient and he was waking up on the BiPAP. He responds that he can breathe on BiPAP. Repeat ABG shows 7.40/65.7/103 on BiPAP PEEP 10. Therefore patient does not need intubation. Discussed with Dr. Ovalles transportation logistics internship about ABG and acute on chronic combined respiratory failure with CO2 narcosis. Patient is improving. Regular transportation logistics internship consult for tomorrow. 12/25: Patient diuresed well 5.5 L. Furosemide changed to 40 mg IV daily. Discussed with the transportation logistics internship regarding probability of obesity hypoventilation and need for BiPAP during naps and at night with titration. The patient will need to go home on a BiPAP. The patient is being managed on scheduled bronchodilator, IV Solu-Medrol, Mucinex, incentive spirometry and Pep. Urine culture negative. Acute encephalopathy resolved. 12/26: Change IV Solu-Medrol to prednisone. Rest above continue. manager of clinical consult and plan for discharge on BiPAP probably tomorrow. Urine culture shows no growth. Chest x-ray initially reviewed and she seems left lower lobe atelectasis. No fever or chill. Hemodynamically stable. Currently on 1 L of oxygen therefore empiric IV Zosyn discontinued 2. Acute on chronic HFpEF with recent admission from 12/15-12/18 for left lower extremity venous edema/lymphedema complicated with mild cellulitis : During last admission patient was discharged on furosemide 40 mg twice daily, metoprolol 25 mg twice daily, lisinopril 2.5 mg daily and atorvastatin 80 mg daily. Advised to continue the same. Echo 12/16/2024 suggestive of chronic HFpEF Mild concentric left ventricular hypertrophy. The LV ejection fraction is 65 %. Stage 1 diastolic dysfunction. There is mild biatrial dilatation. The study was technically difficult. First x-ray shows chronic interstitial changes, stable compressive atelectasis of the left lung base and stable elevation of left diaphragm.. Repeat chest x- ray in the morning shows worsening of vascular congestion/pulmonary edema mainly in hilar area. Patient got Lasix 40 mg IV before x-ray was done. Continue Lasix 40 IV twice daily. Heart failure core measures including intake and output, fluid restriction less than 1500 mL, daily weight monitoring, kidney and electrolytes monitoring. 12/25: Continue off treatment except furosemide changed to 40 mg IV daily. Patient was also feeling thirsty and mildly hydrated. Advised oral fluid intake. 12/26: change Lasix to 40 mg IV twice daily. Patient has significant leg swelling but his lungs are clear. Continue David wrap bandage PT and OT. BUN/creatinine 17/0.72 normal. Chronic medical conditions: ? History of CAD with stenting,, history of NSVT, hypertension, hyperlipidemia: Normotensive and in normal sinus rhythm on admit. Continue home statin, Lasix, lisinopril, Lopressor, and sotalol. Notably has had issues with orthostatic hypotension, continue home midodrine. ? Type 2 diabetes mellitus with recent episodes of hypoglycemia: Recent A1c 5.3%. Had low glucose values down to the 40s during previous hospitalization. Hold long-acting insulin and other home oral medications. Will treat with sliding scale insulin with meals while inpatient, adjust as needed. 12/25: Glucose varies between 156?250. Scheduled Lantus 10 units started. 12/26: Glucose is about 150. Fasting glucose 139. ? Hypothyroidism: Continue home Synthroid. ? BPH with obstructive disease: Continue home Flomax and finasteride. ? GERD: Continue home PPI. ? Chronic iron deficiency anemia: Hemoglobin 9.1 on admit, at baseline. ? Former tobacco use: Encouraged continued cessation. DVT prophylaxis: Lovenox twice daily CODE STATUS: Full code, verified Microbiology Past 72 Hours 12/24/24 09:35 Urine Catheter - Lezama Urine Culture - Final Culture exhibits no growth. Laboratory Results 12/25/24 16:48: POC Glucose 153 H 12/25/24 21:00: POC Glucose 304 H 12/26/24 04:26: WBC 14.8 H, RBC 4.33 L, Hgb 8.6 L, Hct 32.2 L, MCV 74.4 L, MCH 19.9 L, MCHC 26.7 L, RDW Std Deviation 55.0 H, RDW Coeff of Jovany 20.6 H, Plt Count 222, MPV 9.6, Immature Gran % (Auto) 0.500, Neut % (Auto) 89.7 H, Lymph % (Auto) 5.9 L, [place] % (Auto) 3.8, Eos % (Auto) 0.0, Baso % (Auto) 0.1, Absolute Neuts (auto) 13.3 H, Absolute Lymphs (auto) 0.88, Nucleated RBC % 0, Anisocytosis 2+, Sodium 134, Potassium 4.4, Chloride 93 L, Carbon Dioxide 32.3 H , Anion Gap 9, BUN 17, Creatinine 0.72, Estim Creat Clear Calc 166.41, Est GFR (MDRD) Non-Af 105, BUN/Creatinine Ratio 23.8 H, Glucose 139 H, Calcium 8.7 12/26/24 06:27: POC Glucose 144 H 12/26/24 11:42: POC Glucose 250 H Charges/Coding Visit Charges Inpatient E&M: 41249 Subs Hosp L2
[2024-12-26] MEDS: MELATONIN 10 MG TABLET PO (21:17)
[2024-12-27] VITALS (16 sets, daily range): BP systolic 109–135; BP diastolic 56–70; PULSE 65–92; RESP 12–20; TEMP 36.2–36.8; O2SAT 84–99; BMI 42.7
[2024-12-27 06:53] LABS: Anion Gap 7 (5-15); BUN 18 mg/dL (4-19); BUN/Creat Ratio 28.5 RATIO (10-20); Calcium,Total 8.5 mg/dL (7.6-11.0); Carbon Dioxide 34.9 mmol/L (21.0-32.0); Chloride 94 mmol/L (98-108); Estimated Creatinine Clearance 187.63 ml/min (50-250); Glucose 103 mg/dL (70-99); Potassium 4.1 mmol/L (3.3-5.1)
--- NOTE | 2024-12-27 09:48 | PCM.PN.HOSP ---
Reason for Visit Reason for Visit: Diagnoses Hypoxemia (12/23/24) Subjective Subjective Feeling better Objective Data Objective Data Vital Signs: Vital Signs Temp Pulse Resp BP Pulse Ox O2 Del Method O2 Flow Rate 36.6 C 69 16 120/70 99 Nasal Cannula 1 12/27/24 02:50 12/27/24 07:28 12/27/24 07:28 12/27/24 02:50 12/27/24 07:28 12/27/24 07:28 12/27/24 07:28 FiO2 30 12/26/24 23:00 Oxygen Flow Rate (L/min) 1 Oxygen Delivery Method Nasal Cannula Weight: 147 kg Body Mass Index (BMI) 42.7 Intake & Output: Intake and Output for Last 24 Hours 12/25/24 12/26/24 12/27/24 23:59 23:59 23:59 Intake Total 1555 / 1795 1642.09 / 1642.09 550 / 550 Output Total 3350 / 4500 9100 / 9100 700 / 700 Balance -1795 / -2705 -7457.91 / -7457.91 -150 / -150 Lab / Micro Data 12/26/24 04:26 12/27/24 06:09 Labs: Laboratory Results - last 24 hr 12/26/24 11:42: POC Glucose 250 H 12/26/24 16:37: POC Glucose 190 H 12/26/24 21:12: POC Glucose 223 H 12/27/24 06:09: Sodium 136, Potassium 4.1, Chloride 94 L, Carbon Dioxide 34.9 H, Anion Gap 7, BUN 18, Creatinine 0.64 L, Estim Creat Clear Calc 187.63, Est GFR (MDRD) Non-Af 109, BUN/Creatinine Ratio 28.5 H, Glucose 103 H, Calcium 8.5 12/27/24 06:37: POC Glucose 107 H Micro: Microbiology 12/24/24 09:35 Urine Catheter - Lezama Urine Culture - Final Culture exhibits no growth. Physical Exam Const alert and no apparent distress HEENT head/scalp atraumatic and moist oral mucous membranes Resp normal respiratory effort, no retractions, no use of accessory muscles and clear to auscultation bilaterally Cardio regular rate, regular rhythm, S1 normal heart sound and S2 normal heart sound GI normal to inspection, nondistended, normoactive bowel sounds, soft to palpation, non-tender and non-distended Extremity General Extremity: edema bilateral lower extremity Details: moderate Assessment & Plan Assessment/Plan (1) Acute hypoxic on chronic hypercapnic respiratory failure: PLAN: Initial ABG showed pH of 7.2, pCO2 102.2 pO2 of 45. Patient was placed on BiPAP and subsequently improved later on that day. Continue BiPAP at night and with naps. Multifactorial due to COPD exacerbation, HFpEF, obesity hypoventilation syndrome, SHAHANA. Changed to prednisone. (2) (HFpEF) heart failure with preserved ejection fraction: PLAN: Volume overloaded on chest x-ray. Continue with the IV furosemide. Weight down roughly 4 kg since admission. PLAN: Plan Obesity class III: Complicates care and recovery Diabetes mellitus type 2: Continue with glargine and sliding scale insulin Hypothyroidism: Continue levothyroxine Hypertension: Continue with lisinopril, metoprolol tartrate BPH with tamsulosin VTE prophylaxis with enoxaparin Disposition: hopefully home soon in 1-2 days. Charges/Coding Visit Charges Inpatient E&M: 36251 Subs Hosp L2
--- NOTE | 2024-12-27 10:01 | CASEMGMT ---
Addendum entered by Yudi Mix 12/27/24 10:06: Pt is active with SN only. Yudi Mix DC Planning Asst. Original Note: Discharge Planning Updates sent to [facility] with note asking for confirmation of disciplines being rec'd. Awaiting response. Yudi Mix DC Planning Asst.
[2024-12-27] MEDS: Sotalol Hydrochloride 80 MG Tablet 120 MG PO ×2 (10:18→22:24)
[2024-12-27] MEDS: Potassium Chloride Oral Tablet 20 MEQ PO (10:18)
[2024-12-27] MEDS: 0.9% Saline Lock 10 ML Syringe IV ×2 (10:20→17:05)
--- NOTE | 2024-12-27 10:26 | CASEMGMT ---
Discharge Planning Updates faxed to [facility]. Fax confirmation rec'd. Yudi Mix DC Planning Asst.
[2024-12-27] MEDS: Insulin Glargine-YFGN 100 UNIT/ML Pen 10 UNIT SC (11:13)
[2024-12-27] MEDS: MELATONIN 10 MG TABLET PO (22:25)
[2024-12-28] VITALS (11 sets, daily range): BP systolic 111–118; BP diastolic 62–63; PULSE 66–74; RESP 16–20; TEMP 35.8–36.6; O2SAT 84–100
[2024-12-28 06:11] LABS: Hematocrit 34.5 % (40-54); Hemoglobin 9.1 g/dL (13.0-16.5); Immature Granulocytes Count 0.040 X10^3/uL (0.0-0.0); Mean Corp Hgb Conc 26.4 g/dL (32-36); Mean Corpuscular Volume 76.0 fL (80-94); Mean Platelet Vol. 9.8 fl (6.2-12.0); NRBC Flagged by Analyzer 0 % (0-5); POSITIVE MORPHOLOGY YES; Platelet Count 227 K/mm3 (150-450); RBC Distribution Width CV 20.2 % (11.6-14.6); RBC Distribution Width SD 54.7 fl (35.1-43.9); Red Blood Count 4.54 M/mm3 (4.6-6.2); White Blood Count 11.3 K/mm3 (4.4-11.0)
[2024-12-28 06:34] LABS: Differential Indicated SCAN CRITERIA MET
[2024-12-28 06:36] LABS: Anion Gap 9 (5-15); BUN 19 mg/dL (4-19); BUN/Creat Ratio 32.1 RATIO (10-20); Calcium,Total 8.6 mg/dL (7.6-11.0); Carbon Dioxide 33.6 mmol/L (21.0-32.0); Chloride 96 mmol/L (98-108); Estimated Creatinine Clearance 203.53 ml/min (50-250); Glucose 98 mg/dL (70-99); Potassium 4.3 mmol/L (3.3-5.1)
[2024-12-28 07:23] LABS: Anisocytosis 1+
--- NOTE | 2024-12-28 08:16 | PCM.PN.HOSP ---
Reason for Visit Reason for Visit: Diagnoses Unspecified diastolic (congestive) heart failure (12/23/24) Acute respiratory failure with hypoxia (12/23/24) Chronic respiratory failure with hypercapnia (12/23/24) Hypoxemia (12/23/24) Subjective Subjective Feeling well. Oxygen 1 liter with rest and 2 liters with activity. Objective Data Objective Data Vital Signs: Vital Signs Temp Pulse Resp BP Pulse Ox O2 Del Method O2 Flow Rate 35.8 C L 70 20 H 118/62 98 Nasal Cannula 1 12/28/24 04:00 12/28/24 07:37 12/28/24 07:37 12/28/24 04:00 12/28/24 07:37 12/28/24 07:37 12/28/24 07:37 FiO2 30 12/27/24 23:31 Oxygen Flow Rate (L/min) 1 Oxygen Delivery Method Nasal Cannula Weight: 147 kg Body Mass Index (BMI) 42.7 Intake & Output: Intake and Output for Last 24 Hours 12/26/24 12/27/24 12/28/24 23:59 23:59 23:59 Intake Total 1642.09 / 1642.09 550 / 550 Output Total 9100 / 9100 2350 / 2350 Balance -7457.91 / -7457.91 -1800 / -1800 Lab / Micro Data 12/28/24 05:08 12/28/24 05:08 Labs: Laboratory Results - last 24 hr 12/27/24 11:11: POC Glucose 126 H 12/27/24 15:38: POC Glucose 236 H 12/27/24 22:20: POC Glucose 150 H 12/28/24 05:08: WBC 11.3 H, RBC 4.54 L, Hgb 9.1 L, Hct 34.5 L, MCV 76.0 L, MCH 20.0 L, MCHC 26.4 L, RDW Std Deviation 54.7 H, RDW Coeff of Jovany 20.2 H, Plt Count 227, MPV 9.8, Immature Gran % (Auto) 0.400, Neut % (Auto) 71.8 H, Lymph % (Auto) 18.8 L, [place] % (Auto) 8.7, Eos % (Auto) 0.2, Baso % (Auto) 0.1, Absolute Neuts (auto) 8.1 H, Absolute Lymphs (auto) 2.13, Nucleated RBC % 0, Platelet Estimate 1, Anisocytosis 1+, Sodium 139, Potassium 4.3, Chloride 96 L, Carbon Dioxide 33.6 H, Anion Gap 9, BUN 19, Creatinine 0.59 L, Estim Creat Clear Calc 203.53, Est GFR (MDRD) Non-Af 112, BUN/Creatinine Ratio 32.1 H, Glucose 98, Calcium 8.6 12/28/24 06:23: POC Glucose 97 Micro: Microbiology 12/24/24 09:35 Urine Catheter - Lezama Urine Culture - Final Culture exhibits no growth. Physical Exam Const alert and no apparent distress HEENT head/scalp atraumatic and moist oral mucous membranes Resp normal respiratory effort, no retractions, no use of accessory muscles and clear to auscultation bilaterally Cardio regular rate, regular rhythm, S1 normal heart sound and S2 normal heart sound GI normal to inspection, nondistended, normoactive bowel sounds and soft to palpation Extremity General Extremity: edema bilateral lower extremity Details: moderate Assessment & Plan Assessment/Plan (1) Acute hypoxic on chronic hypercapnic respiratory failure: PLAN: Initial ABG showed pH of 7.2, pCO2 102.2 pO2 of 45. Patient was placed on BiPAP and subsequently improved later on that day. Continue BiPAP at night and with naps. Multifactorial due to COPD exacerbation, HFpEF, obesity hypoventilation syndrome, SHAHANA. Changed to prednisone. Patient requires volume ventilation and all other alternative therapies, including bilevel, have been considered and ruled out due to the severity of the disease state, weak breathing muscles and potential life-threatening condition including CO2 retention probability of acute exacerbation, patient requires ventilation to be used during the day as needed, addition to every night usage with facemask. (2) (HFpEF) heart failure with preserved ejection fraction: PLAN: Volume overloaded on chest x-ray. Continue with the IV furosemide. Weight down roughly 4 kg since admission. PLAN: Plan Obesity class III: Complicates care and recovery Diabetes mellitus type 2: Continue with glargine and sliding scale insulin Hypothyroidism: Continue levothyroxine Hypertension: Continue with lisinopril, metoprolol tartrate BPH with tamsulosin VTE prophylaxis with enoxaparin Disposition: hopefully home soon in 1-2 days.
[2024-12-28] MEDS: Sotalol Hydrochloride 80 MG Tablet 120 MG PO (09:13)
[2024-12-28] MEDS: Potassium Chloride Oral Tablet 20 MEQ PO (09:14)
[2024-12-28] MEDS: 0.9% Saline Lock 10 ML Syringe IV (09:19)
--- NOTE | 2024-12-28 09:21 | CASEMGMT ---
Discharge Planning Call placed to Mala @ [facility]. Pt is appropriate to return. She stated that they had started the process of getting O2 but wasn't sure how far along her nurses had gotten. RN CM updated. Yudi Mix DC Planning Asst.
[2024-12-28] MEDS: Insulin Glargine-YFGN 100 UNIT/ML Pen 10 UNIT SC (09:25)
--- NOTE | 2024-12-28 09:37 | CASEMGMT ---
CHIRAG NAVAS called [facility] [phone], fax: [phone] to inquire if patient is still active with [facility]. No answer, voice message left with return call back number. CHIRAG NAVAS reviewed therapy notes and added PT/OT to [facility] order, DC manager planning updated to update [facility]. CM will continue to follow this patient and plan for safe discharge.
--- NOTE | 2024-12-28 10:06 | CASEMGMT ---
Addendum entered by Christine Nayak 12/28/24 11:22: Patient qualifies for home oxygen as well. RN CM in to discuss home oxygen and NIV setup, patient agreeable and prefers [facility]. RN CM received call back from Jessica Ibrahim at [facility] and received guidance for NIV setup. RN ELOISE received scripts and sent to Jessica via Email for NIV setup. Per Jessica [facility] has NIV in stock and patient can be setup today once approved by NIV team. CM will continue to follow this patient plan for a safe discharge. Original Note: Hospitalist requesting NIV at discharge. RN ELOISE called [facility] for assistance with setup. Per Sharmaine Barrera is available for assistance but is currently in meeting. Holly to request Sharmaine to call this RN CM to assist with NIV setup, awaiting call back. CM will continue to follow this patient and plan for a safe discharge.
--- NOTE | 2024-12-28 11:05 | WOUNDNOTE ---
wound photo: right lower leg
--- NOTE | 2024-12-28 11:06 | WOUNDNOTE ---
wound photo: right lower leg
--- NOTE | 2024-12-28 11:07 | WOUNDNOTE ---
wound photo: left lower leg
--- NOTE | 2024-12-28 11:07 | WOUNDNOTE ---
wound photo: left lower leg
--- NOTE | 2024-12-28 12:08 | PCM.DC.SUM ---
Providers Date of Admission: 12/23/24 Primary Care Physician: UNRULY Tamez Consultations 12/24/24 11:24 Consult: Seat Pack Inspector / Pulmonary Medicine Routine Consulting Provider: Intensivists/Pulmonary Med Reason for Consult: Acute on chronic combined respiratory failure, CO2 narcosis. For kallie am EMERGENT Consult: No MD Notified: Yes Date Notified: 12/24/24 Time Notified: 11:24 Method of Notification: Verbal 12/26/24 07:19 Consult: Onc/Wound/bar finish operator Routine Comment: Reason For Visit: HYPOXIA W/EXERTION H/O COPD AND CHF Diagnosis Discharge Diagnosis (1) Acute hypoxic on chronic hypercapnic respiratory failure: Status: Acute Code(s): J96.01 - Acute respiratory failure with hypoxia; J96.12 - Chronic respiratory failure with hypercapnia Plan: Initial ABG showed pH of 7.2, pCO2 102.2 pO2 of 45. Patient was placed on BiPAP and subsequently improved later on that day. Continue BiPAP at night and with naps. Multifactorial due to COPD exacerbation, HFpEF, obesity hypoventilation syndrome, SHAHANA. Changed to prednisone. Patient requires volume ventilation and all other alternative therapies, including bilevel, have been considered and ruled out due to the severity of the disease state, weak breathing muscles and potential life-threatening condition including CO2 retention probability of acute exacerbation, patient requires ventilation to be used during the day as needed, addition to every night usage with facemask. (2) (HFpEF) heart failure with preserved ejection fraction: Status: Acute Code(s): I50.30 - Unspecified diastolic (congestive) heart failure Plan: Volume overloaded on chest x-ray. Continue with the IV furosemide. Weight down roughly 4 kg since admission. Plan Obesity class III: Complicates care and recovery Diabetes mellitus type 2: Continue with glargine and sliding scale insulin Hypothyroidism: Continue levothyroxine Hypertension: Continue with lisinopril, metoprolol tartrate BPH with tamsulosin VTE prophylaxis with enoxaparin Disposition: DC home oxygen. Medications at Discharge Home Medications potassium chloride 20 mEq tablet,extended release(part/cryst) 20 meq PO DAILYCM SUPPLEMENT 04/23/19 tamsulosin 0.4 mg capsule 0.4 mg PO QHS PROSTATE 02/05/21 albuterol sulfate 90 mcg/actuation aerosol inhaler 2 puff inhalation Q4H PRN SHORTNESS OF BREATH/WHEEZING 02/11/21 montelukast 10 mg tablet (Singulair) 10 mg PO QHS PRN ALLERGIES 01/10/22 guaifenesin 600 mg tablet, extended release 12 hr (Mucinex) 600 mg PO Q12H PRN CONGESTION 02/04/22 fluticasone propionate 115 mcg-salmeterol 21 mcg/actuation HFA inhaler (Advair HFA) 2 puff inhalation BID COPD 07/31/22 blood sugar diagnostic 11/25/22 atorvastatin 80 mg tablet 80 mg PO QHS CHOLESTEROL 11/18/23 metoprolol tartrate 25 mg tablet 25 mg PO BID #120 tabs 03/31/24 levothyroxine 200 mcg tablet 275 mcg PO DAILY THYROID 07/07/24 omeprazole 20 mg capsule,delayed release 20 mg PO DAILY GERD 07/13/24 semaglutide 2 mg/dose (8 mg/3 mL) subcutaneous pen injector (Ozempic) 2 mg subcut QWEEK DIABETES 07/13/24 lisinopril 2.5 mg tablet 2.5 mg PO DAILY 10/20/24 finasteride 5 mg tablet (Proscar) 5 mg PO QDAY 11/11/24 glipizide 5 mg tablet 5 mg PO QDAY 11/11/24 melatonin 10 mg tablet 10 mg PO QHS SLEEP 11/11/24 sennosides 8.6 mg tablet (Greer-danyel) 17.2 mg PO QDAY 11/11/24 trazodone 50 mg tablet 100 mg PO QHS SLEEP 11/11/24 bisacodyl 10 mg rectal suppository 10 mg UT ONCE PRN constipation 11/19/24 furosemide 40 mg tablet 40 mg PO BID EDEMA 11/19/24 venlafaxine 37.5 mg tablet 37.5 mg PO BID 11/19/24 acetaminophen 325 mg capsule 650 mg PO Q6H PRN pain 11/30/24 ammonium lactate 12 % topical cream 1 applic topical BID PRN dry skin 11/30/24 magnesium hydroxide 400 mg/5 mL oral suspension (Dulcolax (magnesium hydroxide)) 30 ml PO DAILY PRN constipation 11/30/24 mineral oil-hydrophil petrolat topical ointment (AmeriPhor topical ointment) 1 applic topical DAILY 11/30/24 ondansetron 4 mg disintegrating tablet 4 mg PO DAILY PRN nausea and vomiting 11/30/24 sotalol 120 mg tablet (Betapace) 120 mg PO BID 11/30/24 insulin lispro 100 unit/mL subcutaneous pen (Humalog KwikPen (U-100) Insulin) See Protocol subcut ACHS 1 month #15 mL 12/18/24 midodrine 10 mg tablet 10 mg PO TIDCM 30 days #90 tabs 12/18/24 needle (disp) 32 gauge 32 gauge x 5/16 #100 ea 12/18/24 polyethylene glycol 3350 17 gram/dose oral powder (Miralax) 17 g PO DAILY Constipation 30 days #0 grams 12/18/24 insulin glargine 100 unit/mL (3 mL) subcutaneous pen (Lantus Solostar U-100 Insulin) 10 unit (0.1 mL) subcut QPM #15 mL 12/28/24 prednisone 20 mg tablet 40 mg (2 x 20 mg) PO DAILY #6 tabs 12/28/24 Hospital Course Operations None Procedures None Summary of Care Provided Minutes Spent on Discharge: 35 Weight / BMI Weight Weight: 147 kg Body Mass Index (BMI) 42.7 ABG / Lab / Microbiology Data 12/28/24 05:08 12/28/24 05:08 Laboratory: Laboratory Results - last 24 hr 12/27/24 15:38: POC Glucose 236 H 12/27/24 22:20: POC Glucose 150 H 12/28/24 05:08: WBC 11.3 H, RBC 4.54 L, Hgb 9.1 L, Hct 34.5 L, MCV 76.0 L, MCH 20.0 L, MCHC 26.4 L, RDW Std Deviation 54.7 H, RDW Coeff of Jovany 20.2 H, Plt Count 227, MPV 9.8, Immature Gran % (Auto) 0.400, Neut % (Auto) 71.8 H, Lymph % (Auto) 18.8 L, [place] % (Auto) 8.7, Eos % (Auto) 0.2, Baso % (Auto) 0.1, Absolute Neuts (auto) 8.1 H, Absolute Lymphs (auto) 2.13, Nucleated RBC % 0, Platelet Estimate 1, Anisocytosis 1+, Sodium 139, Potassium 4.3, Chloride 96 L, Carbon Dioxide 33.6 H, Anion Gap 9, BUN 19, Creatinine 0.59 L, Estim Creat Clear Calc 203.53, Est GFR (MDRD) Non-Af 112, BUN/Creatinine Ratio 32.1 H, Glucose 98, Calcium 8.6 12/28/24 06:23: POC Glucose 97 12/28/24 11:13: POC Glucose 154 H Microbiology: Microbiology 12/24/24 09:35 Urine Catheter - Lezama Urine Culture - Final Culture exhibits no growth. D/C Instructions Discharge Diet: 2000 Calorie Control Diet, 8 Cup Fluid Restriction and 2000 mg Sodium Diet DC O2, CPAP, BIPAP Needs Home O2 Discharge instructions: Yes Type of respiratory needs?: Oxygen Oxygen frequency: At rest and With Ambulation Oxygen liters per minute during Ambulation: 2 DC home with Oxygen: Yes Home O2 MD Review: I have reviewed the oxygen testing, and the patient qualifies for home oxygen equipment and portability. The patient is mobile in the home and the community. Meaningful Use Info Meaningful Use Meaningful Use Diagnoses (Choose all that apply): CHF CHF DARELL/ARB ordered at discharge?: Yes Documented LVEF (%): 65 Ischemic Stroke Statin Dosing Therapy Reference: STATIN DOSE THERAPY REFERENCE: * Patients > 75 years receive moderate or high dose statin therapy. * Patients 75 years or YOUNGER should receive HIGH intensity statin dose unless contraindicated. You will be required to document reason for non-treatment if statin daily dose does not meet guidelines. HIGH DOSE STATIN THERAPY DAILY Atorvastatin > than or = to 40 mg Rosuvastatin > than or = to 20 mg Amlodipine + Atorvastatin > than or = to 2.5/40 mg Ezetimibe + Simvastatin 10/80 mg Simvastatin 80mg Discharge Plan Admission Admit Date/Time: 12/23/24 18:46 Primary Reason for Your Visit: CHF exacerbation. Attending Provider: Alex Mayen Primary Care Provider: Radha Barajas ACQUISITION MANAGER Consulting Providers: Garry Gross; Salinas Waddell; Bert Byrd; Enrico Bustillo; Jeovany Ovalles; Ernesto Wilder; Zion Blount; Jose Eduardo Jim; Linda Sullivan; Foster Geronimo; Richard Peterson; Benjamin Malhotra; Nicole Haywood; Raquel Foster; Hawa Chang; Sanju Woods; David Dallas; Ronak Goff; Henry Cronin; Naga Penn; Anita Rivera; Geovany Sorenson; Dajuan Thompson; Dedrick Vides; Marcellus Gunn Instructions Patient Instructions: Heart Failure Flare Up Signs, Diabetes Blood Glucose Check Ch, Heart Failure Make Changes Diet, Heart Failure Assessment, Heart Failure Dc, Diabetes Inspect Feet, Heart Failure Care, Diabetes and Illness, Heart Failure and Physical Activity Discharge Orders/Prescriptions Prescriptions: New prednisone 20 mg tablet 40 mg PO DAILY Qty: 6 0RF Continued tamsulosin 0.4 mg capsule 0.4 mg PO QHS guaifenesin [Mucinex] 600 mg tablet extended release 12hr 600 mg PO Q12H PRN (Reason: CONGESTION ) montelukast [Singulair] 10 mg tablet 10 mg PO QHS PRN (Reason: ALLERGIES ) fluticasone propion-salmeterol [Advair HFA] 115-21 mcg/actuation HFA aerosol inhaler 2 puff inhalation BID melatonin 10 mg tablet 10 mg PO QHS (DME) blood sugar diagnostic Kit See Rx Instructions .Route Rx Instructions: As directed omeprazole 20 mg capsule,delayed release(DR/EC) 20 mg PO DAILY Ozempic 2 mg/dose (8 mg/3 mL) pen injector 2 mg subcut QWEEK Rx Instructions: FRIDAY bisacodyl 10 mg suppository 10 mg UT ONCE PRN (Reason: constipation) venlafaxine 37.5 mg tablet 37.5 mg PO BID sennosides [Greer-danyel] 8.6 mg tablet 17.2 mg PO QDAY glipizide 5 mg tablet 5 mg PO QDAY finasteride [Proscar] 5 mg tablet 5 mg PO QDAY potassium chloride 20 MEQ tablet 20 meq PO DAILYCM 0RF albuterol sulfate 90 mcg/actuation HFA aerosol inhaler 2 puff INHALATION Q4H PRN (Reason: SHORTNESS OF BREATH/WHEEZING ) trazodone 50 mg tablet 100 mg PO QHS atorvastatin 80 mg tablet 80 mg PO QHS levothyroxine 200 mcg tablet 275 mcg PO DAILY furosemide 40 mg tablet 40 mg PO BID metoprolol tartrate 25 mg Tablet 25 mg PO BID Qty: 120 2RF acetaminophen 325 mg capsule 650 mg PO Q6H PRN (Reason: pain) ammonium lactate 12 % cream 1 applic topical BID PRN (Reason: dry skin) AmeriPhor Ointment 1 applic topical DAILY magnesium hydroxide [Dulcolax (magnesium hydroxide)] 400 mg/5 mL suspension 30 ml PO DAILY PRN (Reason: constipation) ondansetron 4 mg tablet,disintegrating 4 mg PO DAILY PRN (Reason: nausea and vomiting) sotalol [Betapace] 120 mg tablet 120 mg PO BID lisinopril 2.5 mg tablet 2.5 mg PO DAILY midodrine 10 mg tablet 10 mg PO TIDCM 30 Days Qty: 90 0RF Rx Instructions: Hold if SBP more than 100 mmHg polyethylene glycol 3350 [Miralax] 17 gram/dose powder 17 g PO DAILY 30 Days Qty: 0 0RF insulin lispro [Humalog KwikPen Insulin] 100 unit/mL insulin pen See Protocol subcut ACHS 30 Days Qty: 15 2RF Protocol: 4. Sliding Scale Insulin High-Med Dosing Condition: 150-199 mg/dl = 2 units Condition: 200-259 mg/dl = 4 units Condition: 260-324 mg/dl = 6 units Condition: 325-374 mg/dl = 8 units Condition: 375-409 mg/dl = 10 units Condition: 410-449 mg/dl = 11 units Condition: Greater than 449 call physician Protocol Text: Suggested for: - Patients on Total Daily Insulin Dose of 56-80 units - Patient who are known to be insulin resistant or septic HIGH MEDIUM DOSING ALGORITHM Rx Instructions: Hold if glucose less than 130 mg/dl (DME) needle (disp) 32 gauge 32 gauge x 5/16 needle See Rx Instructions .ROUTE .MEDSUPPLY Qty: 100 2RF Rx Instructions: As directed Changed insulin glargine [Lantus Solostar U-100 Insulin] 100 unit/mL (3 mL) insulin pen 10 unit subcut QPM Qty: 15 0RF Discontinued metformin 1,000 mg tablet 1,000 mg PO BID insulin lispro [Humalog KwikPen Insulin] 100 unit/mL Insulin Pen See Protocol subcut ACHS Qty: 0 0RF Protocol: 4. Sliding Scale Insulin High-Med Dosing Condition: 150-199 mg/dl = 2 units Condition: 200-259 mg/dl = 4 units Condition: 260-324 mg/dl = 6 units Condition: 325-374 mg/dl = 8 units Condition: 375-409 mg/dl = 10 units Condition: 410-449 mg/dl = 11 units Condition: Greater than 449 call physician Protocol Text: Suggested for: - Patients on Total Daily Insulin Dose of 56-80 units - Patient who are known to be insulin resistant or septic HIGH MEDIUM DOSING ALGORITHM cephalexin 500 mg capsule 500 mg PO TID 2 Days Qty: 6 0RF Referrals / Follow Up: [facility] [Provider Group] - 01/19/25 9:30 am [facility] [Provider Group] - Within 1 Month Radha Barajas ACQUISITION MANAGER, ACQUISITION MANAGER-C [Primary Care Provider] - Within 2 Weeks Disposition Disposition (needs filled in before D/C Order can be placed): Home Health Service Charges/Coding Visit Charges Inpatient E&M: 67054 Disch Hosp >30min
--- NOTE | 2024-12-28 13:40 | CASEMGMT ---
Social Work--Waiver case packer. Pt has a waiver case packer, Michelle, , however she is on vacation. SW called the coverage line to let them know, let them know pt's daughter is interested in pt getting a hospital bed for pt, asked if Michelle can speak w/pt and family about this when she returns. SANJIV Veronica
--- NOTE | 2024-12-28 13:58 | CASEMGMT ---
Patient has order for discharge. CHIRAG NAVAS updated DC Quality Inspector [facility]. Transport setup for 4pm, CHIRAG NAVAS [place] [facility] [place] [facility] to review setup with patient and staff. CHIRAG NAVAS updated discharge plan.
--- NOTE | 2024-12-28 14:43 | CASEMGMT ---
Discharge Planning Discharge summary and transport time faxed to [facility] with note that [facility] [place] NIV delivery and training. Nursing, RN CM, and pt updated. VM left for pts daughter (Nikunj). Fax confirmation rec'd. Yudi Mix DC Planning Asst.
--- NOTE | 2024-12-28 16:08 | CASEMGMT ---
Discharge Planning Discharge Summary and updated HH order (adding PT/OT) sent to [facility]. Yudi Mix DC Planning Asst.
== END 2024-12-28 16:45 | disposition home health service (06) | DRG 189 ==
LOC: ED 18:46 → MS3 19:41 → ICU 12-24 09:53 → PCU 12-25 13:56
PROVIDERS: Internal Medicine; Admitting Provider Hospitalist; Emergency Provider Emergency Medicine; PCP Nurse Practitioner Adult Health; Referring Provider Emergency Medicine
DX: J96.01 Acute respiratory failure with hypoxia (principal); G93.41 Metabolic encephalopathy; I50.33 Acute on chronic diastolic (congestive) heart failure; E44.1 Mild protein-calorie malnutrition; E66.2 Morbid (severe) obesity with alveolar hypoventilation; J44.1 Chronic obstructive pulmonary disease with (acute) exacerbation; L97.822 Non-pressure chronic ulcer of other part of left lower leg with fat layer exposed; Z68.41 Body mass index [BMI] 40.0-44.9, adult; N13.8 Other obstructive and reflux uropathy; L03.90 Cellulitis, unspecified; E11.59 Type 2 diabetes mellitus with other circulatory complications; D50.9 Iron deficiency anemia, unspecified; I11.0 Hypertensive heart disease with heart failure; F32.A Depression, unspecified; E89.0 Postprocedural hypothyroidism; E11.622 Type 2 diabetes mellitus with other skin ulcer; J96.22 Acute and chronic respiratory failure with hypercapnia; E78.00 Pure hypercholesterolemia, unspecified; I25.10 Atherosclerotic heart disease of native coronary artery without angina pectoris; Z79.4 Long term (current) use of insulin; K21.9 Gastro-esophageal reflux disease without esophagitis; I95.1 Orthostatic hypotension; I87.323 Chronic venous hypertension (idiopathic) with inflammation of bilateral lower extremity; N40.1 Benign prostatic hyperplasia with lower urinary tract symptoms; R74.8 Abnormal levels of other serum enzymes; R60.0 Localized edema; Z95.5 Presence of coronary angioplasty implant and graft; Z87.19 Personal history of other diseases of the digestive system; Z79.84 Long term (current) use of oral hypoglycemic drugs; Z79.899 Other long term (current) drug therapy; Z79.890 Hormone replacement therapy; Z79.85 Long-term (current) use of injectable non-insulin antidiabetic drugs; Z87.891 Personal history of nicotine dependence; Z79.51 Long term (current) use of inhaled steroids
CPT/HCPCS: 11042; 11045; 36415; 36600; 71045; 71046; 80048; 80076; 81001; 81002; 82803; 82962; 83605; 83735; 83880; 84484; 85025; 85027; 87086; 93005; 94002; 94003; 94640; 94668; 94762; 97110; 97116; 97162; 97166; 97530; 97803; 99213; 99252; 99285; A4216; G0463; J1938

== ENCOUNTER 2024-12-29 09:45 | Outpatient (RCR) | payer MEDICARE, MEDICAID, SELFPAY ==
[2024-12-22 10:20] VITALS: BP 104/55; PULSE 80; RESP 18; TEMP 36.2; BMI 43.9
--- NOTE | 2024-12-22 11:58 | PCM.WC.HP ---
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 recently and he Shahid lost it and went off the deep and then was became homeless. He is now living in the [address] and he was trying to get his life back but I noticed on labs that his complete blood count that his hemoglobin is down to 7.9 and he is iron deficient anemic kidney functions were good diabetes seem to be well-controlled but his alk phos was extremely high also. He is here for follow-up on his legs they are healing well but he does not take very good care of himself and there is just dried old skin all over his lower extremities. [facility] Medical History (Reviewed 12/22/24 @ 12:01 by Claudia Urena [employer], [employer]) Redness of skin Thyroid disease Insulin dependent diabetes mellitus Anemia Hepatitis High cholesterol Difficulty swallowing History of diverticulitis Chronic cough History of pain when walking History of stress test History of irregular heartbeat Cellulitis Sleep apnea Lives in assisted living facility Wears glasses Wears dentures Depression Low iron Fatty liver Syncope Dietary restriction CPAP (continuous positive airway pressure) dependence Shortness of breath on exertion History of edema History of echocardiogram Cardiology follow-up encounter Tumor Atherosclerosis of coronary artery of [place] heart without angina pectoris Kidney stones COPD (chronic obstructive pulmonary disease) Former smoker Irregular heart beat NSVT (nonsustained ventricular tachycardia) Diabetes Asthma Hypothyroidism Hypertension Home Medications Medication Instructions Recorded Last Taken Type potassium chloride 20 mEq 20 meq PO DAILYCM SUPPLEMENT 04/23/19 12/30/23 Rx tablet,extended release(part/cryst) metformin 1,000 mg tablet 1,000 mg PO BID DIABETES 01/18/21 12/30/23 History tamsulosin 0.4 mg capsule 0.4 mg PO QHS PROSTATE 02/05/21 12/29/23 History albuterol sulfate 90 mcg/actuation 2 puff inhalation Q4H PRN 02/11/21 Unknown History aerosol inhaler SHORTNESS OF BREATH/WHEEZING montelukast 10 mg tablet 10 mg PO QHS PRN ALLERGIES 01/10/22 12/29/23 History (Singulair) guaifenesin 600 mg tablet, 600 mg PO Q12H PRN CONGESTION 02/04/22 11/18/23 History extended release 12 hr (Mucinex) fluticasone propionate 115 2 puff inhalation BID COPD 07/31/22 12/30/23 History mcg-salmeterol 21 mcg/actuation HFA inhaler (Advair HFA) blood sugar diagnostic 11/25/22 Unknown History atorvastatin 80 mg tablet 80 mg PO QHS CHOLESTEROL 11/18/23 12/29/23 History metoprolol tartrate 25 mg tablet 25 mg PO BID #120 tabs 03/31/24 10/20/24 Rx levothyroxine 200 mcg tablet 275 mcg PO DAILY THYROID 07/07/24 10/20/24 History omeprazole 20 mg capsule,delayed 20 mg PO DAILY GERD 07/13/24 10/20/24 History release semaglutide 2 mg/dose (8 mg/3 mL) 2 mg subcut QWEEK DIABETES 07/13/24 10/06/24 History subcutaneous pen injector (Ozempic) insulin glargine 100 unit/mL (3 56 unit subcut QPM 09/13/24 Unknown History mL) subcutaneous pen (Lantus Solostar U-100 Insulin) lisinopril 2.5 mg tablet 2.5 mg PO DAILY 10/20/24 Unknown History finasteride 5 mg tablet (Proscar) 5 mg PO QDAY 11/11/24 Unknown History glipizide 5 mg tablet 5 mg PO QDAY 11/11/24 Unknown History melatonin 10 mg tablet 10 mg PO QHS SLEEP 11/11/24 Unknown History sennosides 8.6 mg tablet (Greer-danyel) 17.2 mg PO QDAY 11/11/24 Unknown History trazodone 50 mg tablet 150 mg PO QHS SLEEP 11/11/24 Unknown History bisacodyl 10 mg rectal suppository 10 mg HI ONCE PRN constipation 11/19/24 Unknown History furosemide 40 mg tablet 40 mg PO BID EDEMA 11/19/24 Unknown History venlafaxine 37.5 mg tablet 37.5 mg PO BID 11/19/24 Unknown History acetaminophen 325 mg capsule 650 mg PO Q6H PRN pain 11/30/24 Unknown History ammonium lactate 12 % topical cream 1 applic topical BID PRN dry skin 11/30/24 Unknown History magnesium hydroxide 400 mg/5 mL 30 ml PO DAILY PRN constipation 11/30/24 Unknown History oral suspension (Dulcolax (magnesium hydroxide)) mineral oil-hydrophil petrolat 1 applic topical DAILY 11/30/24 Unknown History topical ointment (AmeriPhor topical ointment) ondansetron 4 mg disintegrating 4 mg PO DAILY PRN nausea and 11/30/24 Unknown History tablet vomiting sotalol 120 mg tablet (Betapace) 120 mg PO BID 11/30/24 Unknown History cephalexin 500 mg capsule 500 mg PO TID 2 days #6 caps 12/18/24 Unknown Rx insulin lispro 100 unit/mL See Protocol subcut ACHS #0 mL 12/18/24 Unknown Rx subcutaneous pen (Humalog KwikPen (U-100) Insulin) insulin lispro 100 unit/mL See Protocol subcut ACHS 1 month 12/18/24 Unknown Rx subcutaneous pen (Humalog KwikPen #15 mL (U-100) Insulin) midodrine 10 mg tablet 10 mg PO TIDCM 30 days #90 tabs 12/18/24 Unknown Rx needle (disp) 32 gauge 32 gauge x #100 ea 12/18/24 Unknown Rx 5/16" polyethylene glycol 3350 17 17 g PO DAILY Constipation 30 days 12/18/24 10/19/24 Rx gram/dose oral powder (Miralax) #0 grams Allergy/AdvReac Type Severity Reaction Status Date / Time No Known Allergies Allergy Verified 12/22/24 10:52 Family History Father Heart disease Hypertension Mother Brain aneurysm Surgical History History of cardiac catheterization Hx of colonoscopy History of coronary artery stent placement (01/18/21) History of thyroidectomy Social History household members: other details: Assisted living housing: assisted living facility current occupational status: disabled Smoking Status: Former smoker how long ago did patient quit smokin years ago alcohol intake: never substance use type: does not use caffeine: Yes Type: carbonated beverages ROS Constitutional Constitutional: Reports systems reviewed and no addt'l complaints, except as documented Eyes Eyes: Reports systems reviewed and no addt'l complaints, except as documented ENT HEENT: Reports systems reviewed and no addt'l complaints, except as documented Cardiovascular Cardiovascular: Reports systems reviewed and no addt'l complaints, except as documented Respiratory/Chest Respiratory/Chest: Reports systems reviewed and no addt'l complaints, except as documented Gastrointestinal Gastrointestinal: Reports systems reviewed and no addt'l complaints, except as documented Genitourinary Genitourinary: Reports systems reviewed and no addt'l complaints, except as documented Musculoskeletal Musculoskeletal: Reports systems reviewed and no addt'l complaints, except as documented Integumentary Integumentary: Reports wounds and other Details: Open wound some mostly left lower leg right lower leg is just edematous and has some stasis dermatitis. Neurologic Neurologic: Reports systems reviewed and no addt'l complaints, except as documented Psychiatric Psychiatric: Reports systems reviewed and no addt'l complaints, except as documented Endocrine Endocrinology: Reports systems reviewed and no addt'l complaints, except as documented Hematologic/Lymphatic Hematologic/Lymphatic: Reports systems reviewed and no addt'l complaints, except as documented Allergic/Immunologic Allergic/Immunologic: Reports systems reviewed and no addt'l complaints, except as documented Vital Signs Vital Signs Vital Signs: 12/22/24 10:20 Temperature 97.1 F L Temperature Source Temporal Pulse Rate 80 Respiratory Rate 18 Blood Pressure 104/55 L Blood Pressure Mean 71 Blood Pressure Source Monitor Blood Pressure Position Sitting Blood Pressure Location Right Arm Oxygen Delivery Method Room Air Weight Weight: 333 lb Body Mass Index (BMI) 43.9 Physical Exam Const oriented x3 General Appearance: cooperative Exam Limitations: no limitations HEENT normocephalic Nose: external nose normal Eyes General Eye: normal appearance of both eyes Neck full ROM Resp normal respiratory effort Effort and Inspection: able to speak in complete sentences Auscultation: clear to auscultation bilaterally Cardio regular rate and regular rhythm Palpation: normal PMI Rate: regular rate Rhythm: regular rhythm Extremity General Extremity: normal exam except as noted and edema Skin no rashes or lesions noted Skin Narrative: Open wounds on the anterior lower extremity superficial and dry skin that needs to be debrided off with just basic washing and then he can use the amLactin cream afterwards. General Skin Exam: desquamation, dry skin, mottling and dermatitis; Negative for no breakdown Neuro oriented x3 Psych Appearance: grossly normal Speech: normal speech Thought Content: normal thought content Judgement: judgement good Debridement Note Debridement Note Wound debrided: Ulcer left lower leg nonpressure Type of Debridement: Excisional debridement Anesthesia Used: 5% Lidocaine Gel Depth: Down to and including healthy tissue Percentage of wound debrided: 100 Instrument Used: 7mm curette Tissue Removed: Devitalized tissue and fibrin Severity: Limited To Skin Breakdown Amount of bleeding with debridement: Mild Bleeding Controlled with: Compression and gauze Patient tolerated procedure: Patient tolerated procedure well Post-Debridement Measurements and Additional Note: Post-Debridement Measurements/Treatment - Nurse 1 - General Ulcer Assessment Start: 12/22/24 10:18 Freq: Status: Active Protocol: CHANTELLE Activity Type Activity Date Activity User E-sign Co-sign Detail Recorded Client Recorded Date Recorded By Document 12/22/24 10:20 [place] [id number] 12/22/24 10:38 [place] 12/22/24 10:20 WC - Today's Visit Information Type of service Initial Visit Arrival Mode Ambulatory Accompanied by self Patient Identification Verified (Name & Yes ) Safety Precautions Fall Prevention Height and Weight Height 6 ft 1 in Weight 333 lb Weight in Pounds 333.0 lbs Weight Measurement Method Stated by Patient Body Mass Index (BMI) 43.9 BMI Classification Obese Vital Signs Temperature (97.8 F-99.1 F) 97.1 F L Temperature Source Temporal Pulse Rate (60-100) 80 Pulse Location Monitor Respiratory Rate (12-18) 18 Respiratory rate source Observation Oxygen Delivery Method Room Air Blood Pressure (90/60-120/80) 104/55 L Blood Pressure Mean 71 Source Monitor Position Sitting Blood Pressure Location Right Arm History Since Last Visit- (Skip if this is Patient's initial visit) Has dressing in place as prescribed Yes Has compression in place as prescribed Yes Has offloadiing in place as prescribed Yes Experienced any changes in pain level or Yes management Left Footwear Regular Shoe Right Footwear Regular Shoe Pain Scale: 0-10 Numeric Is Patient Pain Free? Yes [facility] Nurse 1 - General Ulcer Measurement Start: 12/22/24 10:18 Freq: Status: Active Protocol: Activity Type Activity Date Activity User E-sign Co-sign Detail Recorded Client Recorded Date Recorded By Document 12/22/24 10:20 [place] [id number] 12/22/24 10:38 [place] 12/22/24 10:20 Wound Center Nurse 1 #4 Left Lower Lateral Leg -Current Size (cm) - Length 10.1 -Current Size (cm) - Width 8.5 -Current Size (cm) - Depth 0.1 -Total Square Cm 85.85 -Date of Last Picture (Recall this 12/22/24 field) -Photo Taken Yes -Epithelialization Large 67-100% -Tunneling No -Undermining/Tunneling No -Circular Undermining No -Exudate Amt None Present -Wound Margin Flat & Intact -Granulation Amt Large (67-100%) -Granulation Quality Pale,[place] -Necrosis Amt Small (1-33%) -Necrotic Tissue Type Adherent Slough -Texture (Capri-wound Skin Appearance) Assessed -Moisture (Capri-wound Skin Appearance) Assessed -Color (Capri-wound Skin Appearance) Assessed -Temperature (Capri-wound Skin No Abnormality Appearance) (Pt Warm) -Tenderness on Palpation (Capri-wound No Skin Appearance) -Ulcer Cleansing Soap and Water -Foul Odor after Cleansing No -Anesthetic Used 5% Lidocaine Gel WC - Nurse 2 - General Ulcer CM Notes Start: 12/22/24 10:18 Freq: Status: Active Protocol: Activity Type Activity Date Activity User E-sign Co-sign Detail Recorded Client Recorded Date Recorded By Document 12/22/24 10:46 [facility] [id number] 12/22/24 10:58 [facility] 12/22/24 10:46 Wound Center Nurse 2 -Time 10:50 -Correct Patient Yes -Correct Side, Site, Position Yes -Correct Procedure Yes -Procedure Performed Yes -Type of Procedure Debridement -Clinical Debridement Subcutaneous -Tissue Removed Subcutaneous -Post Debridement (cm) - Length 11.5 -Post Debridement (cm) - Width 7 -Post Debridement (cm) - Depth 0.1 -Total Square (Post) (cm) 80.5 -Area of Debridement (cm) - Length 11.5 -Area of Debridement (cm) - Width 7 -Total Square (Area) (cm) 80.5 -Tunneling No -Undermining/Tunneling No -Circular Undermining No -Wound/Ulcer Outcome Not Healed -Ulcer Cleansing Rinsed/ Irrigated with Saline -Foul Odor after Cleansing No -Bioengineered Tissue No -Bleeding Controlled with Pressure -Treatment Response Procedure Tolerated Well -Debridement - Subq, 1st 20sq cm Yes -Debridement, SubQ, ea addt'l 20sq cm 3 or part thereof Pain Scale: 0-10 Numeric Is Patient Pain Free? Yes - Nurse 3 - General Ulcer D/C NN Start: 12/22/24 10:18 Freq: Status: Active Protocol: Activity Type Activity Date Activity User E-sign Co-sign Detail Recorded Client Recorded Date Recorded By Document 12/22/24 10:50 [place] [id number] 12/22/24 10:52 MT Document 12/22/24 11:16 DL [id number] 12/22/24 11:18 DL 12/22/24 12/22/24 10:50 11:16 [facility] Nurse 3 #4 Left Lower Lateral Leg -Ulcer Cleansing Soap and Water -Primary Dressing Applied NonAdherent Contact Layer -Other Dressing xerofrom -Primary Dressing Covered/Secured with Dry Gauze & Roll Gauze, Other -Other Covering ABD LLE -Tubular Bandage Single Layer -Size of Tubigrip Used Size F -Size F ($) 1 Treatment Response Procedure Tolerated Well Pain Scale: 0-10 Numeric Is Patient Pain Free? Yes Yes - Visit Discharge Discharge Condition Stable Ambulatory Status Ambulatory Transportation Private [facility] Facility Type Supervisor [facility] Orders Sent Yes Assessment/Plan Assessment/Plan (1) Wound cellulitis: CODE(S): L03.90 - Cellulitis, unspecified (2) Iron deficiency anemia: CODE(S): D50.9 - Iron deficiency anemia, unspecified QUALIFIERS: Iron deficiency anemia type: inadequate dietary iron intake Qualified Code(s): D50.8 - Other iron deficiency anemias (3) Elevated alkaline phosphatase level: CODE(S): R74.8 - Abnormal levels of other serum enzymes (4) Non-pressure ulcer of left lower extremity: CODE(S): L97.929 - Non-pressure chronic ulcer of unspecified part of left lower leg with unspecified severity QUALIFIERS: Non-pressure ulcer stage: with fat layer exposed Qualified Code(s): L97.922 - Non-pressure chronic ulcer of unspecified part of left lower leg with fat layer exposed PLAN: Scrub and wash lower extremities with antibacterial soap and water to get off all skin that can harbor bacteria. Apply the Xeroform to the open wound areas and cover with ABDs and Gui and then double layer Tubigrip's to both lower legs this will be done every day Follow-up 1 week
--- NOTE | 2024-12-22 15:26 | WC ---
PHOTO 12/22/24 LEFT LOWER LATERAL LEG
[2024-12-29 09:49] VITALS: BP 105/53; PULSE 89; RESP 18; TEMP 36.4; BMI 43.9
--- NOTE | 2024-12-29 13:05 | PN.PCM_ITS ---
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 recently and he Shahid lost it and went off the deep and then was became homeless. He is now living in the [address] and he was trying to get his life back but I noticed on labs that his complete blood count that his hemoglobin is down to 7.9 and he is iron deficient anemic kidney functions were good diabetes seem to be well-controlled but his alk phos was extremely high also. He is here for follow-up on his legs they are healing well but he does not take very good care of himself and there is just dried old skin all over his lower extremities. Progress of Wound: Patient's legs are healed. Patient will be discharged from the wound center and he can follow-up as needed Subjective Subjective And was pleased with the results Objective Data Objective Data No sign of open areas still has the dry skin that he can work on at home he needs to bathe and use soap and water and scrub the skin off his legs and use the amLactin cream on a regular basis. Vital Signs: Vital Signs Temp Pulse Resp BP O2 Del Method O2 Flow Rate 97.5 F L 89 18 105/53 L Room Air 2 12/29/24 09:49 12/29/24 09:49 12/29/24 09:49 12/29/24 09:49 12/22/24 10:20 12/29/24 09:49 Oxygen Flow Rate (L/min) 2 Oxygen Delivery Method Room Air Weight: 333 lb Body Mass Index (BMI) 43.9 Debridement Note Debridement Note No debridement was completed: No debridement was completed today Post-Debridement Measurements and Additional Note: Post-Debridement Measurements/Treatment WC - Nurse 1 - General Ulcer Assessment Start: 12/22/24 10:18 Freq: Status: Active Protocol: NANCIE.LOWEXT Activity Type Activity Date Activity User E-sign Co-sign Detail Recorded Client Recorded Date Recorded By Document 12/22/24 10:20 MT [id number] 12/22/24 10:38 MT Document 12/29/24 09:49 DL [id number] 12/29/24 09:59 DL 12/22/24 12/29/24 10:20 09:49 WC - Today's Visit Information Type of service Initial Visit Follow-up Visit (Physician/POT MAKER ) Arrival Mode Ambulatory Ambulatory Transfer Assistance None Accompanied by self Patient Identification Verified (Name & Yes Yes ) Patient Requires Transmission-Based No Precautions Safety Precautions Fall Prevention Height and Weight Height 6 ft 1 in Weight 333 lb Weight in Pounds 333.0 lbs Weight Measurement Method Stated by Patient Body Mass Index (BMI) 43.9 43.9 BMI Classification Obese Obese Vital Signs Temperature (97.8 F-99.1 F) 97.1 F L 97.5 F L Temperature Source Temporal Temporal Pulse Rate (60-100) 80 89 Pulse Location Monitor Monitor Respiratory Rate (12-18) 18 18 Respiratory rate source Observation Observation Oxygen Delivery Method Room Air O2 L/MIN (L/min) 2 Blood Pressure (90/60-120/80) 104/55 L 105/53 L Blood Pressure Mean (mm Hg) 71 70 Source Monitor Monitor Position Sitting Blood Pressure Location Right Arm History Since Last Visit- (Skip if this is Patient's initial visit) Have you changed medications since your No last visit? Any new allergies or adverse reactions No Had a fall/change in ADL's that may No increase risk of falls Signs or symptoms of abuse and/or No neglect since last visit Have you been in the hospital since your No last visit? Has dressing in place as prescribed Yes Yes Has compression in place as prescribed Yes Yes Has offloadiing in place as prescribed Yes N/A Experienced any changes in pain level or Yes No management Left Footwear Regular Shoe Right Footwear Regular Shoe Pain Scale: 0-10 Numeric Is Patient Pain Free? Yes Yes - Nurse 1 - General Ulcer Measurement Start: 12/22/24 10:18 Freq: Status: Active Protocol: Activity Type Activity Date Activity User E-sign Co-sign Detail Recorded Client Recorded Date Recorded By Document 12/22/24 10:20 MT [id number] 12/22/24 10:38 MT Document 12/29/24 09:49 DL [id number] 12/29/24 09:59 DL 12/22/24 12/29/24 10:20 09:49 Wound Center Nurse 1 #4 Left Lower Lateral Leg -Current Size (cm) - Length 10.1 0.1 -Current Size (cm) - Width 8.5 0.1 -Current Size (cm) - Depth 0.1 0.1 -Total Square Cm 85.85 0.01 -Date of Last Picture (Recall this 12/22/24 field) -Photo Taken Yes Yes -Epithelialization Large 67-100% -Tunneling No -Undermining/Tunneling No -Circular Undermining No -Exudate Amt None Present None Present -Wound Margin Flat & Intact Indistinct, Non -Visible -Granulation Amt Large (67-100%) Large (67-100%) -Granulation Quality Pale,Heathrow Heathrow -Necrosis Amt Small (1-33%) None Present (0 %) -Necrotic Tissue Type Adherent Slough -Structure Exposed N/A -Texture (Capri-wound Skin Appearance) Assessed Scarring -Moisture (Capri-wound Skin Appearance) Assessed Dry/Scaly -Color (Capri-wound Skin Appearance) Assessed Hemosiderin Staining -Temperature (Capri-wound Skin No Abnormality No Abnormality Appearance) (Pt Warm) (Pt Warm) -Tenderness on Palpation (Capri-wound No No Skin Appearance) -Ulcer Cleansing Soap and Water Soap and Water -Foul Odor after Cleansing No No -Anesthetic Used 5% Lidocaine Gel -Wound Comment(s) Pt admitted to [facility] 12/23/24 and D/C 12/28/24 for SOB. Pt now has portable O2 on at 2L. Right Calf (cm) 44.5 Right Ankle (cm) 31.5 Right Foot (cm) 43.3 Left Calf (cm) 26.8 - Nurse 2 - General Ulcer CM Notes Start: 12/22/24 10:18 Freq: Status: Active Protocol: Activity Type Activity Date Activity User E-sign Co-sign Detail Recorded Client Recorded Date Recorded By Document 12/22/24 10:46 [facility] [id number] 12/22/24 10:58 [facility] Document 12/29/24 10:21 [facility] [id number] 12/29/24 10:24 [facility] 12/22/24 12/29/24 10:46 10:21 Wound Center Nurse 2 #4 Left Lower Lateral Leg -Time 10:50 10:21 -Correct Patient Yes -Correct Side, Site, Position Yes -Correct Procedure Yes -Procedure Performed Yes No -Type of Procedure Debridement -Clinical Debridement Subcutaneous -Tissue Removed Subcutaneous -Post Debridement (cm) - Length 11.5 0 -Post Debridement (cm) - Width 7 0 -Post Debridement (cm) - Depth 0.1 0 -Total Square (Post) (cm) 80.5 0 -Area of Debridement (cm) - Length 11.5 0 -Area of Debridement (cm) - Width 7 0 -Total Square (Area) (cm) 80.5 0 -Tunneling No -Undermining/Tunneling No -Circular Undermining No -Wound/Ulcer Outcome Not Healed Healed- Epithelialized -Ulcer Cleansing Rinsed/ Irrigated with Saline -Foul Odor after Cleansing No -Bioengineered Tissue No -Bleeding Controlled with Pressure NA -Treatment Response Procedure Tolerated Well -Debridement - Subq, 1st 20sq cm Yes -Debridement, SubQ, ea addt'l 20sq cm 3 or part thereof Pain Scale: 0-10 Numeric Is Patient Pain Free? Yes Yes - Nurse 3 - General Ulcer D/C NN Start: 12/22/24 10:18 Freq: Status: Active Protocol: Activity Type Activity Date Activity User E-sign Co-sign Detail Recorded Client Recorded Date Recorded By Document 12/22/24 10:50 IA [id number] 12/22/24 10:52 MT Document 12/22/24 11:16 DL [id number] 12/22/24 11:18 DL Document 12/29/24 10:45 DL [id number] 12/29/24 10:46 DL 12/22/24 12/22/24 12/29/24 10:50 11:16 10:45 Wound Care Center Nurse 3 #4 Left Lower Lateral Leg -Ulcer Cleansing Soap and Water Soap and Water -Foul Odor after Cleansing No -Primary Dressing Applied NonAdherent Contact Layer -Other Dressing xerofrom -Primary Dressing Covered/Secured with Dry Gauze & Roll Gauze, Other -Other Covering ABD LLE -Tubular Bandage Single Layer Double Layer -Size of Tubigrip Used Size F Size E -Size E ($) 2 -Size F ($) 1 Treatment Response Procedure Procedure Tolerated Well Tolerated Well Pain Scale: 0-10 Numeric Is Patient Pain Free? Yes Yes Yes - Visit Discharge Discharge Condition Stable Stable Ambulatory Status Ambulatory Transportation Private Auto Private Auto Notes: Healed/ Discharged. Facility Type [employer] [facility] Facility Orders Sent Yes Yes Assessment/Plan Assessment/Plan (1) Wound cellulitis: CODE(S): L03.90 - Cellulitis, unspecified (2) Iron deficiency anemia: CODE(S): D50.9 - Iron deficiency anemia, unspecified QUALIFIERS: Iron deficiency anemia type: inadequate dietary iron intake Qualified Code(s): D50.8 - Other iron deficiency anemias (3) Elevated alkaline phosphatase level: CODE(S): R74.8 - Abnormal levels of other serum enzymes (4) Non-pressure ulcer of left lower extremity: CODE(S): L97.929 - Non-pressure chronic ulcer of unspecified part of left lower leg with unspecified severity QUALIFIERS: Non-pressure ulcer stage: with fat layer exposed Qualified Code(s): L97.922 - Non-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
--- NOTE | 2024-12-29 13:57 | WC ---
PHOTO 12/29/24 KENN UNGER
== END 2025-01-04 08:53 | disposition home or self-care (01) ==
LOC: WC 09:45
PROVIDERS: PCP Nurse Practitioner Adult Health; Referring Provider Nurse Practitioner Adult Health; Visit Provider Nurse Practitioner
DX: E11.622 Type 2 diabetes mellitus with other skin ulcer (principal); L97.822 Non-pressure chronic ulcer of other part of left lower leg with fat layer exposed; J44.9 Chronic obstructive pulmonary disease, unspecified; Z79.4 Long term (current) use of insulin; Z79.84 Long term (current) use of oral hypoglycemic drugs; I25.10 Atherosclerotic heart disease of native coronary artery without angina pectoris; Z79.85 Long-term (current) use of injectable non-insulin antidiabetic drugs; Z79.890 Hormone replacement therapy; Z87.891 Personal history of nicotine dependence; E89.0 Postprocedural hypothyroidism; R60.0 Localized edema; Z79.51 Long term (current) use of inhaled steroids; D50.9 Iron deficiency anemia, unspecified; E78.00 Pure hypercholesterolemia, unspecified; I10 Essential (primary) hypertension; L03.90 Cellulitis, unspecified; R74.8 Abnormal levels of other serum enzymes
CPT/HCPCS: 11042; 11045; 99213; G0463

== ENCOUNTER 2025-01-04 21:34 | Emergency (ER) | payer MEDICARE, MEDICAID, SELFPAY ==
[2025-01-04] VITALS (7 sets, daily range): BP systolic 123–136; BP diastolic 57–69; PULSE 94–98; RESP 16–25; TEMP 37.6; O2SAT 93–98; BMI 44.8
--- NOTE | 2025-01-04 21:40 | EKG12_ITS ---
Test Reason : DYSRHYTHMIA Blood Pressure : */* mmHG Vent. Rate : 97 BPM Atrial Rate : 97 BPM P-R Int : 166 ms QRS Dur : 86 ms QT Int : 334 ms P-R-T Axes : 38 9 33 degrees QTcB Int : 424 ms Normal sinus rhythm Low voltage QRS Possible Inferior infarct , age undetermined Abnormal ECG Confirmed by Michael Allred ([id number]), subeditor SHIELA ALBERTO ([id number]) on 01/05/2025 11:28:25 AM Referred By: ESTRELLA Confirmed By: Michael Allred
[2025-01-04 21:49] LABS: Hematocrit 29.7 % (40-54); Hemoglobin 7.9 g/dL (13.0-16.5); Immature Granulocytes Count 0.030 X10^3/uL (0.0-0.0); Mean Corp Hgb Conc 26.6 g/dL (32-36); Mean Corpuscular Volume 75.8 fL (80-94); Mean Platelet Vol. 9.3 fl (6.2-12.0); NRBC Flagged by Analyzer 0 % (0-5); POSITIVE MORPHOLOGY YES; Platelet Count 146 K/mm3 (150-450); RBC Distribution Width CV 20.1 % (11.6-14.6); RBC Distribution Width SD 54.3 fl (35.1-43.9); Red Blood Count 3.92 M/mm3 (4.6-6.2); White Blood Count 10.6 K/mm3 (4.4-11.0)
--- NOTE | 2025-01-04 21:49 | ED.VIS.DYS ---
HPI History of Present Illness Chief Complaint: Shortness of Breath Detail of Chief Complaint: I think I had an anxiety attack Informant: patient Onset/Context/Timing Onset: Today Current Severity: Gone Maximum Severity: Moderate Narrative Narrative: 59-year-old male history of anemia, CAD, diabetes, COPD on 2 L of oxygen at home. Had an echocardiogram in November 65%. Was recently hospitalized stated he was diuresed 8 pounds of fluid. He lives in assisted living [facility], [place]. Lives by himself. Said he had anxious tonight believes he may have had panic attack and felt short of breath called paramedics. Paramedics only got there his vital signs were stable but he was anxious. He denies any chest pain. No hemoptysis. No history of DVT or PE. PE Risk Factors: Negative for Cancer, OCP + Smoking + > 35, Prior DVT or PE, Recent immobilization, Recent surgery or Recent travel Prior similar symptoms: Yes Recent Illness/Hospitalization: Yes PFSH PFS Medical History Redness of skin Thyroid disease Insulin dependent diabetes mellitus Anemia Hepatitis High cholesterol Difficulty swallowing History of diverticulitis Chronic cough History of pain when walking History of stress test History of irregular heartbeat Cellulitis Sleep apnea Lives in assisted living facility Wears glasses Wears dentures Depression Low iron Fatty liver Syncope Dietary restriction CPAP (continuous positive airway pressure) dependence Shortness of breath on exertion History of edema History of echocardiogram Cardiology follow-up encounter Tumor Atherosclerosis of coronary artery of [place] heart without angina pectoris Kidney stones COPD (chronic obstructive pulmonary disease) Former smoker Irregular heart beat NSVT (nonsustained ventricular tachycardia) Diabetes Asthma Hypothyroidism Hypertension Home Medications ?Medication ?Instructions ?Recorded ?Last Taken ?Type potassium chloride 20 mEq 20 meq PO DAILYCM SUPPLEMENT 04/23/19 12/30/23 Rx tablet,extended release(part/cryst) tamsulosin 0.4 mg capsule 0.4 mg PO QHS PROSTATE 02/05/21 12/29/23 History albuterol sulfate 90 mcg/actuation 2 puff inhalation Q4H PRN 02/11/21 Unknown History aerosol inhaler SHORTNESS OF BREATH/WHEEZING montelukast 10 mg tablet 10 mg PO QHS PRN ALLERGIES 01/10/22 12/29/23 History (Singulair) guaifenesin 600 mg tablet, 600 mg PO Q12H PRN CONGESTION 02/04/22 11/18/23 History extended release 12 hr (Mucinex) fluticasone propionate 115 2 puff inhalation BID COPD 07/31/22 12/30/23 History mcg-salmeterol 21 mcg/actuation HFA inhaler (Advair HFA) blood sugar diagnostic 11/25/22 Unknown History atorvastatin 80 mg tablet 80 mg PO QHS CHOLESTEROL 11/18/23 12/22/24 History metoprolol tartrate 25 mg tablet 25 mg PO BID #120 tabs 03/31/24 10/20/24 Rx levothyroxine 200 mcg tablet 275 mcg PO DAILY THYROID 07/07/24 10/20/24 History omeprazole 20 mg capsule,delayed 20 mg PO DAILY GERD 07/13/24 10/20/24 History release semaglutide 2 mg/dose (8 mg/3 mL) 2 mg subcut QWEEK DIABETES 07/13/24 10/06/24 History subcutaneous pen injector (Ozempic) lisinopril 2.5 mg tablet 2.5 mg PO DAILY 10/20/24 Unknown History finasteride 5 mg tablet (Proscar) 5 mg PO QDAY 11/11/24 Unknown History glipizide 5 mg tablet 5 mg PO QDAY 11/11/24 Unknown History melatonin 10 mg tablet 10 mg PO QHS SLEEP 11/11/24 Unknown History sennosides 8.6 mg tablet (Greer-danyel) 17.2 mg PO QDAY 11/11/24 Unknown History trazodone 50 mg tablet 100 mg PO QHS SLEEP 11/11/24 Unknown History bisacodyl 10 mg rectal suppository 10 mg [place] ONCE PRN constipation 11/19/24 Unknown History furosemide 40 mg tablet 40 mg PO BID EDEMA 11/19/24 Unknown History venlafaxine 37.5 mg tablet 37.5 mg PO BID 11/19/24 Unknown History acetaminophen 325 mg capsule 650 mg PO Q6H PRN pain 11/30/24 12/23/24 History ammonium lactate 12 % topical cream 1 applic topical BID PRN dry skin 11/30/24 12/23/24 History magnesium hydroxide 400 mg/5 mL 30 ml PO DAILY PRN constipation 11/30/24 Unknown History oral suspension (Dulcolax (magnesium hydroxide)) mineral oil-hydrophil petrolat 1 applic topical DAILY 11/30/24 Unknown History topical ointment (AmeriPhor topical ointment) ondansetron 4 mg disintegrating 4 mg PO DAILY PRN nausea and 11/30/24 Unknown History tablet vomiting sotalol 120 mg tablet (Betapace) 120 mg PO BID 11/30/24 Unknown History insulin lispro 100 unit/mL See Protocol subcut ACHS 1 month 12/18/24 Unknown Rx subcutaneous pen (Humalog KwikPen #15 mL (U-100) Insulin) midodrine 10 mg tablet 10 mg PO TIDCM 30 days #90 tabs 12/18/24 Unknown Rx needle (disp) 32 gauge 32 gauge x #100 ea 12/18/24 Unknown Rx 5/16 polyethylene glycol 3350 17 17 g PO DAILY Constipation 30 days 12/18/24 10/19/24 Rx gram/dose oral powder (Miralax) #0 grams insulin glargine 100 unit/mL (3 10 unit (0.1 mL) subcut QPM #15 mL 12/28/24 Unknown Rx mL) subcutaneous pen (Lantus Solostar U-100 Insulin) prednisone 20 mg tablet 40 mg (2 x 20 mg) PO DAILY #6 tabs 12/28/24 Unknown Rx Allergy/AdvReac Type Severity Reaction Status Date / Time No Known Allergies Allergy Verified 01/04/25 21:35 Family History Father Heart disease Hypertension Mother Brain aneurysm Surgical History History of cardiac catheterization Hx of colonoscopy History of coronary artery stent placement (01/18/21) History of thyroidectomy Social History household members: other details: Assisted living housing: assisted living facility current occupational status: disabled Smoking Status: Former smoker how long ago did patient quit smokin years ago alcohol intake: never substance use type: does not use caffeine: Yes Type: carbonated beverages ROS ROS ED ROS Narrative Anxious. Short of breath subjectively. Denies cough. Denies chest pain. Denies fever. Constitutional Constitutional ED: Denies chills or fever(s) Eyes Eyes: Denies blurry vision ENT ENT ED: Denies ear pain Cardiovascular Cardiovascular: Denies chest pain Respiratory/Chest Respiratory/Chest: Reports dyspnea; Denies cough Gastrointestinal Gastrointestinal: Denies abdominal pain Genitourinary Genitourinary ED: Denies dysuria or hematuria Musculoskeletal Musculoskeletal: Denies arthralgias Integumentary Denies abscess Neurologic Neurologic: Denies headache(s) Psychiatric Psychiatric: Denies anxiety or depression Endocrine Endocrinology: Denies cold intolerance Hematologic/Lymphatic Hematologic/Lymphatic: Denies easy bleeding, easy bruising or lymphadenopathy Allergic/Immunologic Allergic/Immunologic ED: Denies mouth swelling, tongue swelling or urticaria EXAM Physical Exam Narrative Exam Narrative: Well-appearing 59-year-old male. Vital signs are stable. On 2 L he is 97% at his baseline. Ems are nine 9.6. He does not look septic toxic or any distress. H EENT exam pupils round reactive light. Moist mucous membranes. Neck nontender. No JVD. No lymphadenopathy. Lungs clear to auscultation bilaterally. Heart regular rhythm rate about 95 no murmur. Chest wall and ribs nontender. Abdomen soft nontender. No peritoneal signs. Back nontender. Moving all 4 extremities. 1+ edema both lower extremities. He said this is actually much better than his baseline of his peripheral edema. 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 Normal dorsi plantarflexion. Neurologically is awake alert. Answering questions following commands. Const Vital Signs: 01/04/25 21:35 01/04/25 21:40 01/04/25 21:41 Temperature 99.6 F H 99.6 F H Temperature Source Oral Oral Pulse Rate 98 98 Respiratory Rate 20 H 20 H Respiratory Effort Respiratory Depth Respiratory Pattern Blood Pressure 126/57 H 126/57 H Blood Pressure Mean 80 80 Pulse Ox 97 98 97 Oxygen Delivery Method Nasal Cannula Nasal Cannula Nasal Cannula Oxygen Flow Rate (L/min) 2 2 2 01/04/25 22:16 01/04/25 22:40 01/04/25 23:00 Temperature 99.6 F H 99.6 F H Temperature Source Oral Oral Pulse Rate 95 94 Respiratory Rate 20 H 16 Respiratory Effort Short of Breath Respiratory Depth Normal Respiratory Pattern Tachypnea Blood Pressure 136/68 H 123/69 H Blood Pressure Mean 90 87 Pulse Ox 98 98 Oxygen Delivery Method Nasal Cannula Nasal Cannula Nasal Cannula Oxygen Flow Rate (L/min) 2 2 2 Positive well nourished and well developed; Negative for cachectic, contractures or unkempt General Appearance ED: well developed and NAD; Negative for unkempt, cachectic, contractures or pallor Nutritional Appearance: Negative for cachectic HEENT Reports moist mucous membranes atraumatic Eyes PERRL and EOMs intact bilaterally Neck no lymphadenopathy, supple, no meningeal signs and no JVD General: Negative for tenderness Resp normal respiratory effort and clear to auscultation bilaterally Auscultation: Negative for rales, rhonchi, wheezes or diminished lung sounds Cardio regular rate, regular rhythm, S1 normal heart sound, S2 normal heart sound and no murmurs GI non-tender, non-distended and no masses Palpation: soft; Negative for tender, guarding or rebound tenderness present Back/Spine no CVA tenderness and normal to inspection Extremity Negative for normal to inspection Extremity Narrative: Bilateral lower extremity edema. Nontender. Calves nontender. No cords. General Extremety ED: Yes edema; Negative for tenderness General Extremity: edema Neuro oriented x3 and CN's II-XII intact bilaterally Sensorium / Orientation: alert, oriented to person, oriented to place and oriented to time Motor Exam: strength 5/5 throughout Psych mental status grossly normal Appearance: Negative for unkempt Attitude: No agitated Mood & Affect: anxious; Negative for depressed or tearful Thought Process: normal thought process Skin no wounds and skin turgor normal General Skin Exam: Negative for jaundice or pallor Lesions: no lesions Rashes: no rashes MDM MDM MDM Narrative Medical decision making narrative: 59-year-old male subjective shortness of breath. Believes he an anxiety or panic attack. Undergoing cardiac workup. If negative he may be able be discharged home as well as signs are stable on his normal 2 L. Exam is benign. Recently was admitted and diuresed. Brief exam patient is doing well at 11:45 PM. He is comfortably sitting upright. Vital signs are stable. We went over his labs. Currently he is symptom-free. His anxiety seems to be resolved. He is not short of breath. Waiting for 2-hour troponin to be checked out the overnight physician and that is okay to be discharged home. History & Record Review Discussion w/independent historian: Patient Additional record(s) reviewed:: Prior inpatient record, Prior outpatient record, Prior ED visit and Prior labs Lab Data Attestation: I reviewed the patient's lab results. Lab results narrative: CBC shows a white count 10.6. H&H is 9.9 29.7. Patient has a baseline anemia. Platelet count 146. Electrolytes show sodium 135. Gap 7. BUN and creatinine of 9 and 0.6. Glucose 276. Initial troponin 18. Chest x-ray 2 views interpreted by myself and the radiologist shows cardiomegaly. Chronic changes. Atelectasis. Chronic scarring. Compared to prior film no significant change. No pneumonia. No effusion. Labs: Laboratory Results - last 24 hr 01/04/25 21:43 WBC 10.6 RBC 3.92 L Hgb 7.9 L Hct 29.7 L MCV 75.8 L MCH 20.2 L MCHC 26.6 L RDW Std Deviation 54.3 H RDW Coeff of Jovany 20.1 H Plt Count 146 L MPV 9.3 Immature Gran % (Auto) 0.300 Neut % (Auto) 81.1 H Lymph % (Auto) 8.4 L Garza % (Auto) 7.8 Eos % (Auto) 2.1 Baso % (Auto) 0.3 Absolute Neuts (auto) 8.6 H Absolute Lymphs (auto) 0.89 Nucleated RBC % 0 Anisocytosis 1+ Sodium 135 Potassium 4.2 Chloride 99 Carbon Dioxide 29.3 Anion Gap 7 BUN 9 Creatinine 0.64 L Estim Creat Clear Calc 192.55 Est GFR (MDRD) Non-Af 109 BUN/Creatinine Ratio 13.6 Glucose 276 H Calcium 7.7 Troponin T High Sens 18 D Radiography Chest X-Ray - ED: 2 View, Read by ED Physician, Unchanged, Lungs, Mediastinum, Bony Structures, No Acute Disease, Chronic Changes and Cardiomegaly Diagnostic Testing: Clinical Impression(s) from Imaging Studies Chest X-Ray 01/04/25 22:05 IMPRESSION: 1. Chronically elevated left hemidiaphragm, with left lower lobe atelectasis and/or consolidation, not substantially changed from prior exams. 2. Cardiomegaly and vascular congestion. No appreciable pleural effusion. Reading Location: [facility] Chest x-ray, 2 views, AP and lateral, interpreted by myself and the radiologist. Shows cardiomegaly. Chronic changes. No acute pneumonia. No effusions. No change from a prior chest x-ray. Rhythm Strip Rhythm Strip: Sinus Rhythm Rate: 97 Ectopy: None EKG Initial EKG: Attestation: I personally reviewed and interpreted this EKG as follows: Interpretation: Sinus Rhythm and No Acute Injury Pattern Comments: Normal sinus rhythm. Rate of 97. No acute signs of PA nor ischemia. Discharge Plan Triage Chief Complaint: Shortness of Breath Other Complaint: Anxiety ED Provider: Antoine Hahn Dx/Rx/DC Orders Clinical Impression: Acute dyspnea, Anxiety, History of diabetes mellitus, History of COPD, Chronic anemia Instructions: ED Dyspnea, ED Panic Attack Prescriptions: No Action tamsulosin 0.4 mg capsule 0.4 mg PO QHS guaifenesin [Mucinex] 600 mg tablet extended release 12hr 600 mg PO Q12H PRN (Reason: CONGESTION ) montelukast [Singulair] 10 mg tablet 10 mg PO QHS PRN (Reason: ALLERGIES ) fluticasone propion-salmeterol [Advair HFA] 115-21 mcg/actuation HFA aerosol inhaler 2 puff inhalation BID melatonin 10 mg tablet 10 mg PO QHS (DME) blood sugar diagnostic Kit See Rx Instructions .Route Rx Instructions: As directed omeprazole 20 mg capsule,delayed release(DR/EC) 20 mg PO DAILY Ozempic 2 mg/dose (8 mg/3 mL) pen injector 2 mg subcut QWEEK Rx Instructions: FRIDAY bisacodyl 10 mg suppository 10 mg [place] ONCE PRN (Reason: constipation) venlafaxine 37.5 mg tablet 37.5 mg PO BID sennosides [Greer-danyel] 8.6 mg tablet 17.2 mg PO QDAY glipizide 5 mg tablet 5 mg PO QDAY finasteride [Proscar] 5 mg tablet 5 mg PO QDAY potassium chloride 20 MEQ tablet 20 meq PO DAILYCM 0RF albuterol sulfate 90 mcg/actuation HFA aerosol inhaler 2 puff INHALATION Q4H PRN (Reason: SHORTNESS OF BREATH/WHEEZING ) trazodone 50 mg tablet 100 mg PO QHS atorvastatin 80 mg tablet 80 mg PO QHS levothyroxine 200 mcg tablet 275 mcg PO DAILY furosemide 40 mg tablet 40 mg PO BID metoprolol tartrate 25 mg Tablet 25 mg PO BID Qty: 120 2RF acetaminophen 325 mg capsule 650 mg PO Q6H PRN (Reason: pain) ammonium lactate 12 % cream 1 applic topical BID PRN (Reason: dry skin) AmeriPhor Ointment 1 applic topical DAILY magnesium hydroxide [Dulcolax (magnesium hydroxide)] 400 mg/5 mL suspension 30 ml PO DAILY PRN (Reason: constipation) ondansetron 4 mg tablet,disintegrating 4 mg PO DAILY PRN (Reason: nausea and vomiting) sotalol [Betapace] 120 mg tablet 120 mg PO BID prednisone 20 mg tablet 40 mg PO DAILY Qty: 6 0RF insulin glargine [Lantus Solostar U-100 Insulin] 100 unit/mL (3 mL) insulin pen 10 unit subcut QPM Qty: 15 0RF lisinopril 2.5 mg tablet 2.5 mg PO DAILY midodrine 10 mg tablet 10 mg PO TIDCM 30 Days Qty: 90 0RF Rx Instructions: Hold if SBP more than 100 mmHg polyethylene glycol 3350 [Miralax] 17 gram/dose powder 17 g PO DAILY 30 Days Qty: 0 0RF insulin lispro [Humalog KwikPen Insulin] 100 unit/mL insulin pen See Protocol subcut ACHS 30 Days Qty: 15 2RF Protocol: 4. Sliding Scale Insulin High-Med Dosing Condition: 150-199 mg/dl = 2 units Condition: 200-259 mg/dl = 4 units Condition: 260-324 mg/dl = 6 units Condition: 325-374 mg/dl = 8 units Condition: 375-409 mg/dl = 10 units Condition: 410-449 mg/dl = 11 units Condition: Greater than 449 call physician Protocol Text: Suggested for: - Patients on Total Daily Insulin Dose of 56-80 units - Patient who are known to be insulin resistant or septic HIGH MEDIUM DOSING ALGORITHM Rx Instructions: Hold if glucose less than 130 mg/dl (DME) needle (disp) 32 gauge 32 gauge x 5/16 needle See Rx Instructions .ROUTE .MEDSUPPLY Qty: 100 2RF Rx Instructions: As directed Primary Care Provider: Radha Barajas STRIP POLISHER Referrals: Radha Barajas STRIP POLISHER, STRIP POLISHER-C [Primary Care Provider] - 3-5 Days if not improving Activity Restrictions/Additional Instructions: Continue your current medications. Follow-up with your primary care provider. Return if feeling worse. Your test tonight looked good. Print Language: [place] Disposition Disposition: Home, Self Care
[2025-01-04 21:56] LABS: Differential Indicated SCAN CRITERIA MET
--- NOTE | 2025-01-04 22:05 | RAD_ITS ---
PROCEDURE: CHEST PA AND LATERAL 01/04/2025 REASON FOR EXAM: CHEST PAIN TECHNIQUE: CHEST PA AND LATERAL COMPARISON: 12/24/2024, 12/23/2024. FINDINGS: Lungs/Pleura: Chronically elevated left hemidiaphragm with associated left lower lobe atelectasis and/or consolidation, not substantially changed. No definite consolidation on the right. No sizable pleural effusion. No pneumothorax. Perihilar vascular congestion. Heart/Mediastinum: Cardiomegaly. Bones/Soft tissues: Multilevel degenerative changes of the spine. RAD/Chest PA and Lateral IMPRESSION: 1. Chronically elevated left hemidiaphragm, with left lower lobe atelectasis an d/or consolidation, not substantially changed from prior exams. 2. Cardiomegaly and vascular congestion. No appreciable pleural effusion. Reading Location: [id number]
[2025-01-04 22:09] LABS: Anion Gap 7 (5-15); BUN 9 mg/dL (4-19); BUN/Creat Ratio 13.6 RATIO (10-20); Calcium,Total 7.7 mg/dL (7.6-11.0); Carbon Dioxide 29.3 mmol/L (21.0-32.0); Chloride 99 mmol/L (98-108); Estimated Creatinine Clearance 192.55 ml/min (50-250); Glucose 276 mg/dL (70-99); Potassium 4.2 mmol/L (3.3-5.1); Troponin T High Sensitivity 18 ng/L (<=22)
[2025-01-04 22:30] LABS: Anisocytosis 1+
--- OUTSIDE RECORDS SUMMARY | 2025-01-04 22:31 | XMS RPT_ITS | CCD ---
Author Organization [facility] CliniSyil Care Team Providers Care Drain Cleaner Name Role Phone RABIA POE, ([place]) Attending ELODIA Wilson ([place]) Referring UnaRABIA Marlow, ([place]) Referring Unavaila RABIA Pineda, ([place]) Attending Unavaila ELODIA May ([place]) Referring UnavaRABIA Rasmussen, ([place]) Attending Unavaila RABIA Pineda, ([place]) Attending Unavaila RABIA Pineda, ([place]) Attending Unavaila LUKAS Whitaker Referring Unavailable Dr. Nain Paez Primary Care Provider 1([facility])[phone] Dr. Nain Paez Referring Provider 1([facility])[phone] [facility] MANUFACTURING MAINTENANCE MECHANIC, MANUFACTURING MAINTENANCE MECHANIC-Brittany Beltran Attending Provider 1([facility])[phone] Dr. Antoine Hahn Emergency Provider Dr. Iwona Benton Admit Provider Dr. Iwona Benton Other Provider Dr. Cliff Roman Other Provider Dr. Marcellus Gunn Attending Provider [phone] Cliff Roman Attending Provider Dr. Iwona Benton Attending Provider Dr. Nain Paez Primary Care Provider 1([facility])[phone] Dr. Jeff Weinstein Attending Provider Dr. Iwona Benton Referring Provider Dr. Iwona Benton Attending Provider Dr. Nain Paez Referring Provider Dioni TAYLOR, [place] Rupali Hutton Attending Provider Dr. Nain Paez Primary Care Provider Dr. Jeovany Ovalles Attending Provider Dr. Nain Paez Primary Care Provider Dr. Nain Paez Referring Provider Vesna Ley Attending Provider Unavailable Tonio, Dr. Nain River Referring Provider [phone] Javon Graham Attending Provider Dr. Enrico Bustillo Attending Provider Dr. Enrico Bustillo Referring Provider Dr. Enrico Bustillo Other Provider Nain Paez MD Primary Care Provider GALINA OVALLE Referring Unavailable NAIN PAEZ Primary Care Unavailable CHIDI LIU Admitting Unavailable CHIDI ARROYO Consulting Unavailable AIXA PAEZ Attending Unavailable EDY BHATIA Referring Unavailable NAIN PAEZ Primary Care Unavailable Karl MANUFACTURING MAINTENANCE MECHANIC-C, [facility] Primary Care Provider Karl MANUFACTURING MAINTENANCE MECHANIC-C, Morganmary Lee Referring Provider Akbar MANUFACTURING MAINTENANCE MECHANIC-CKaren Attending Provider Karl MANUFACTURING MAINTENANCE MECHANIC-C, Morganmary Lee Attending Provider Dr. Mata Pastor DO Attending Provider Dr. Mata Pastor DO Other Provider SHILO BERNAL Attending Unavailable NAIN PAEZ Referring Unavailable NAIN PAEZ Primary Care Unavailable Karl MANUFACTURING MAINTENANCE MECHANIC-C, [facility] Primary Care Provider Karl MANUFACTURING MAINTENANCE MECHANIC-C, Morgan Rosa Referring Provider Akbar MANUFACTURING MAINTENANCE MECHANIC-CKaren Attending Provider Brissa Jaime Attending Provider Jovani HODGES, Dr. Schultz Emergency Provider Dr. Antoine Hahn MD Attending Provider Bashir BARRON Dr. Meza Emergency Provider Calista HODGES, Dr. Arlette Carr Admit Provider Calista HODGES, Dr. Arlette Carr Attending Provider Calista HODGES, Dr. Arlette Carr Other Provider Luis A HODGES, Dr. Germain Attending Provider Luis A HODGES, Dr. Germain Other Provider Kevin HODGES, Dr. Pena Attending Provider PHYSICIAN, NONE Attending Unavailable PHYSICIAN, NONE Primary Care Unavailable Romel MANUFACTURING MAINTENANCE MECHANIC-C, Claudia Attending Provider Romel MANUFACTURING MAINTENANCE MECHANIC-C, Claudia Other Provider Dr. Alex Mccray DO Referring Provider Dr. Alex Mccray DO Emergency Provider Dr. Garry Gross DO Admit Provider [phone] Dr. Garry Gross DO Attending Provider Karl MANUFACTURING MAINTENANCE MECHANIC-C, Morgan Lee Primary Care Provider Karl MANUFACTURING MAINTENANCE MECHANIC-C, [facility] Attending Provider Karl PENG-C, [facility] Referring Provider [phone] Darby BARRON, Dr. August Attending Provider Dr. Mata Pastor DO Other Provider [phone] Akbar MANUFACTURING MAINTENANCE MECHANIC-CKaren Attending Provider Ross MANUFACTURING MAINTENANCE MECHANIC-CBrissa Attending Provider [phone] Jovani HODGES, Dr. Schultz Attending Provider Jovani HODGES, Dr. Schultz Emergency Provider AlejandroGurmeet BARRON, Dr. Meza Emergency Provider Calista HODGES, Dr. Arlette Carr Admit Provider Calista HODGES, Dr. Arlette Carr Other Provider Luis A HODGES, Dr. Germain Attending Provider Luis A HODGES, Dr. Germain Other Provider Kevin HODGES, Dr. Pena Attending Provider Romel MANUFACTURING MAINTENANCE MECHANIC-C, Claudia Attending Provider Romel MANUFACTURING MAINTENANCE MECHANIC-C, Claudia Other Provider Mahendra BARRON, Dr. Johnson Referring Provider Mahendra BARRON, Dr. Johnson Emergency Provider Renato BARRON, Dr. Castañeda Admit Provider Renato BARRON, Dr. Castañeda Other Provider Nadira HODGES, Dr. Niño Other Provider Rochelle HODGES, Dr. Noel Other Provider Keny HODGES, Dr. Weston Other Provider Josr BARRON, Dr. Thayer Other Provider Meño HODGES, Dr. Ernesto Eaton Other Provider Mine HODGES, Dr. Donovan Other Provider [phone] Diandra HODGES, Dr. Whitt Other Provider Nate HODGES, Dr. Mckeon Other Provider Grazyna HODGES, Dr. Hutchison Other Provider Nicholas HODGES, Dr. Ramos Other Provider [phone] Benjamin Malhotra MD Other Provider Chastity HODGES, Dr. Rivera Other Provider Kristin HODGES, Dr. García Other Provider Unavailabl aleta Chang MD, Dr. Shaikh Other Provider [phone] Peggy HODGES, Dr. Bills Other Provider [phone] Burt HODGES, Dr. Hernandez Other Provider Shell HODGES, Dr. Simons Other Provider Dr. Henry Cronin DO Other Provider Isamar HODGES, Dr. Nielson Other Provider Miguel HODGES, Dr. Howard Other Provider [phone] Dr. Geovany Sorenson DO Other Provider Jay HODGES, Dr. Graff Other Provider Peewee HODGES, Dr. Tse Other Provider Dr. Alex Mayen DO Attending Provider [phone] Dr. Alex Mayen DO Other Provider [phone] Karl MANUFACTURING MAINTENANCE MECHANIC, [facility] Primary Care Unavaila ble Karl MANUFACTURING MAINTENANCE MECHANIC, [facility] Referring Unavaila ble Karl MANUFACTURING MAINTENANCE MECHANIC, [facility] Attending Unavaila ble Karl MANUFACTURING MAINTENANCE MECHANIC, [facility] Attending Unavaila ble Karl MANUFACTURING MAINTENANCE MECHANIC, [facility] Referring Unavaila ble Karl MANUFACTURING MAINTENANCE MECHANIC, [facility] Primary Care Unavaila ble Friend, Mata Attending Unavailable Karl MANUFACTURING MAINTENANCE MECHANIC, [facility] Primary Care Unavaila naomi aBrajas MANUFACTURING MAINTENANCE MECHANIC, [facility] Referring Unavaila Priscila Babb Attending Unavailable Nain Paez Referring Unavailable Karl MANUFACTURING MAINTENANCE MECHANIC, [facility] Primary Care Unavaila ble Karl MANUFACTURING MAINTENANCE MECHANIC, [facility] Referring Unavaila ble Karl MANUFACTURING MAINTENANCE MECHANIC, [facility] Primary Care Unavaila ble Friend, Mata Attending Unavailable Brissa Hawkins Attending Unavailable Brissa Hawkins Referring Unavailable Karl MANUFACTURING MAINTENANCE MECHANIC, [facility] Primary Care Unavaila ble Karl MANUFACTURING MAINTENANCE MECHANIC, [facility] Primary Care Unavaila Alex Emmanuel Referring Unavailable Garry Gross Admitting Unavailable Garry Gross Consulting Unavailable Alex Mayen Attending Unavailable Salinas Waddell Consulting Unavailable Bert Byrd Consulting Unavailable Enrico Bustillo Consulting Unavailable Jeovany Ovalles Consulting Unavailable Ernesto Wilder Consulting Unavailable Zion Blount Consulting Unavailable Jose Eduardo Jim Consulting Unavailable Linda Sullivan Consulting Unavailab le Grazyna, Foster Consulting Unavailable Richard Peterson Consulting Unavailable Benjamin Malhotra Consulting Unavailable Nicole Haywood Consulting Unavailable Raquel Foster Consulting Unavailable Hawa Chang Consulting Unavailable Sanju Woods Consulting Unavailable David Dallas Consulting Unavailable Ronak Goff Consulting Unavailable Mehrdad, Henry Consulting Unavailable Naga Penn Consulting Unavailable Anita Rivera Consulting Unavailable Geovany Sorenson Consulting Unavailable Dajuan Thompson Consulting Unavailable Dedrick Vides Consulting Unavailable Luis A, Marcellus Consulting Unavailable Corinna, Jeff Admitting Unavailable Corinna, Lyle Attending Unavailable Corinna, Jeff Referring Unavailable Karl MANUFACTURING MAINTENANCE MECHANIC, [facility] Primary Care Unavaila ble Karen Webber Attending Unavailable Karen Webber Referring Unavailable Karl MANUFACTURING MAINTENANCE MECHANIC, [facility] Care Unavaila ble Dilcia Light Attending Unavailable Brissa Hawkins Referring Unavailable Karl MANUFACTURING MAINTENANCE MECHANIC, [facility] Primary Care Unavaila ble Corinna, Jeff Attending Unavailable Corinna, Lyle Referring Unavailable Karl MANUFACTURING MAINTENANCE MECHANIC, [facility] Primary Care Unavaila ble Jean Brown Attending Unavailable Karl MANUFACTURING MAINTENANCE MECHANIC, [facility] Care Unavaila ble Karen Webber Attending Unavailable Karl MANUFACTURING MAINTENANCE MECHANIC, [facility] Referring Unavaila ble Karl MANUFACTURING MAINTENANCE MECHANIC, [facility] Primary Care Unavaila ble Brissa Hawkins Attending Unavailable Karl MANUFACTURING MAINTENANCE MECHANIC, [facility] Referring Unavaila ble Karl MANUFACTURING MAINTENANCE MECHANIC, [facility] Primary Care Unavaila ble Karl MANUFACTURING MAINTENANCE MECHANIC, [facility] Primary Care Unavaila ble Karl MANUFACTURING MAINTENANCE MECHANIC, [facility] Referring Unavaila ble Brissa Hawkins Attending Unavailable Darby, Mata Consulting Unavailable Karl MANUFACTURING MAINTENANCE MECHANIC, [facility] Primary Care Unavaila ble Karl MANUFACTURING MAINTENANCE MECHANIC, [facility] Referring Unavaila ble Mata Pastor Attending Unavailable Calista Arlette L Admitting Unavailable Luis A, Marcellus Attending Unavailable Karl MANUFACTURING MAINTENANCE MECHANIC, [facility] Primary Care Unavaila ble White, Arlette L Consulting Unavailable Luis A, Marcellus Consulting Unavailable Corinna, Jeff Admitting Unavailable Corinna, Jeff Attending Unavailable Corinna, Jeff Referring Unavailable Karl MANUFACTURING MAINTENANCE MECHANIC, [facility] Unavaila ble Corinna, Lyle Consulting Unavailable Karl MANUFACTURING MAINTENANCE MECHANIC, [facility] Primary [facility] Unavaila ble Antoine Hahn Attending Unavailable Karen Webber Attending Unavailable Karl MANUFACTURING MAINTENANCE MECHANIC, [facility] Referring Unavaila ble Karl MANUFACTURING MAINTENANCE MECHANIC, [facility] Primary Care Unavaila ble Garry Gross Consulting Unavailable Karl MANUFACTURING MAINTENANCE MECHANIC, [facility] Primary Care Unavaila Alex Emmanuel Referring Unavailable Alex Mayen Attending Unavailable Garry Gross Admitting Unavailable Salinas Waddell Consulting Unavailable Bert Byrd Consulting Unavailable Enrico Bustillo Consulting Unavailable Jeovany Ovalles Consulting Unavailable Ernesto Wilder Consulting Unavailable Zion Blount Consulting Unavailable Jose Eduardo Jim Consulting Unavailable Linda Sullivan Consulting Unavailab Foster Shanks Consulting Unavailable Richard Peterson Consulting Unavailable Benjamin Malhotra Consulting Unavailable Nicole Haywood Consulting Unavailable Raquel Foster Consulting Unavailable Hawa Chang Consulting Unavailable Sanju Woods Consulting Unavailable David Dallas Consulting Unavailable Ronak Goff Consulting Unavailable Dhekathryn Henry Consulting Unavailable Naga Penn Consulting Unavailable Anita Rivera Consulting Unavailable Geovany Sorenson Consulting Unavailable Dajuan Thompson Consulting Unavailable Dedrick Vides Consulting Unavailable Marcellus Gunn Consulting Unavailable Alex Mayen Consulting Unavailable Karl MANUFACTURING MAINTENANCE MECHANIC, [facility] Unavaila Arlette Guillen Admitting Unavailable Marcellus Gunn Attending Unavailable Arlette Grigsby Consulting Unavailable Karl MANUFACTURING MAINTENANCE MECHANIC, [facility] Unavailenmanuel Barajas MANUFACTURING MAINTENANCE MECHANIC, [facility] Referring UnavailKaren Dior Attending Unavailable Claudia Urena NP Attending Unavailable Karl MANUFACTURING MAINTENANCE MECHANIC, [facility] Referring Unavaila naomi Barajas MANUFACTURING MAINTENANCE MECHANIC, [facility] Unavaila Brissa Wood Attending Unavailable Karl MANUFACTURING MAINTENANCE MECHANIC, [facility] Referring Unavailenmanuel Barajas MANUFACTURING MAINTENANCE MECHANIC, [facility] Unavaila Karen Clifton Attending Unavailable Karl MANUFACTURING MAINTENANCE MECHANIC, [facility] Referring Unavaila naomi Barajas MANUFACTURING MAINTENANCE MECHANIC, [facility] Unavaila Jeff Springer Attending Unavailable Brissa Hawkins Referring Unavailable Karl PENG, [facility] Unavaila Arlette Guillen Attending Unavailable Garry Gross Attending Unavailable Marcellus Gunn Attending Unavailable Claudia Jyo Attending Provider Medications Current Medications Medication Drug Class(es) Dates Sig (Normalized) Sig (Original) acetaminophen 325 mg oral capsule (20 sources) Start: 11-30-2024 Start: 02-04-2022 End: 12-15-2024 take 2 tablets by mo uth every eight hours as needed acetaminophen (TYLENOL) 325 mg tablet Take 650 mg by mouth every 8 hours as needed for pain or fever (specify temp.). Active [id number] 200 actuat albuter ol 0.09 mg/actuat metered dose inhaler (20 sources) beta2-Adrenergic Agonist Start: 02-11-2021 Start: 02-11-2021 Albuterol Sulf ate 90 mcg/actuation HFA aerosol inhaler Active 2 [...] needed (indigestion). Active bisacodyl 10 mg rectal suppo sitory (8 sources) Stimulant Laxative Start: 11-19-2024 Start: 11-19-2024 Bisacodyl 10 m g suppository Active 10 mg RC ONCE as needed for constipation November 19, 2024 12:00am Blood Sugar Diagnostic kit (7 sources) Start: 11-25-2022 Blood Sugar Di agnostic kit Active 0 .Route November 25, 2022 12:00am diabetes As directed Start: 11-25-2022 Blood Sugar Di agnostic kit Active 0 .Route November 25, 2022 12:00am As directed Blood-Glucose Meter (FREESTY LE LITE METER) monitoring kit (4 sources) Start: 09-01-2014 Blood-Glucose Meter (FREESTYLE LITE METER) monitoring kit Freestyle LITE Meter Kit - 1 Each 0 09/01/2014 Active Start: 09-01-2014 Blood-Glucose Meter (FREESTYLE LITE METER) monitoring kit Freestyle LITE Meter Kit - 1 Each 0 09/01/2014 Suspended carboxymethylcellulose sodiu m 10 mg/ml ophthalmic solution (4 sources) carboxymethylcel lulose sodium (ARTIFICIAL TEARS) 1 % drops Use 1 Drop in both eyes as needed (dry eyes). Active finasteride 5 mg oral tablet (9 sources) 5-alpha Reductase Inhibitor Start: 025 Start: 11-02-2024 take 1 tablet by roosevelt th once daily finasteride (PROSCAR) 5 mg tablet Indications: Increased frequency of urination Take 1 tablet by mouth once daily. 90 tablet 3 11/02/2024 Active Fish Oil-Marion-3 Fatty Acids (FISH OIL) 340-1,000 mg cap (4 sources) take 2 capsules by m outh once daily Fish Oil-Marion-3 Fatty Acids (FISH OIL) 340-1,000 mg cap Take 2 capsules by mouth once daily. Active take 2 capsules by mouth once da nguyen Fish Oil-Marion-3 Fatty Acids (FISH OIL) 340-1,000 mg cap Take 2 capsules by mouth once daily. 0 Active take 2 capsules by mouth once da nguyen Fish Oil-Marion-3 Fatty Acids (FISH OIL) 340-1,000 mg cap Take 2 capsules by mouth once daily. 0 Suspended Fluticasone Propion-Salmeter ol (13 sources) Corticosteroid, beta2-Adrenergic Agonist Start: 07-31-2022 Start: 07-31-2022 Fluticasone Pr opion-Salmeterol (Advair Hfa) 115-21 mcg/actuation HFA aerosol inhaler Active 2 NMA INHALATION TWICE A DAY July 31, 2022 1:00am COPD Start: 07-31-2022 Fluticasone Pr opion-Salmeterol (Advair Hfa) 115-21 mcg/actuation HFA aerosol inhaler [...] 2 Puffs as instructed twice daily. Active glipiZIDE 5 mg oral tablet (18 sources) Sulfonylurea Start: 11-11-2024 Start: 11-11-2024 Glipizide 5 mg tablet Active 5 mg PO daily November 11, 2024 12:00am On Hold: Hold if glucose less than 130 mg/dl Start: 05-10-2024 End: 09-13-2024 0.2 ml glucagon 5 mg/ml auto-injector (4 sources) Antihypoglycemic Agent glucagon (GVOKE HYPOPEN 1-PACK) 1 mg/0.2 mL AutoInjector Inject 1 Dose subcutaneously as needed (for unresponsive hypoglycemia). Active 12 hr guaiFENesin 600 mg extended release oral tablet (20 sources) Start: 02-04-2022 take 200 mg by mouth once daily at bedtime for cough guaiFENesin (ROBITUSSIN) 100 mg/5 mL syr up Take 200 mg by mouth daily at bedtime. For cough Active guaiFENesin (MUC INEX) 600 mg 12 hr tablet Take 1,200 mg by mouth twice daily as needed (congestion). Active 3 ml insulin glargine 100 un t/ml pen injector (20 sources) Insulin Analog Start: 09-13-2024 End: 12-28-2024 Start: 09-13-2024 Insulin Glargi ne (Lantus Solostar U-100 Insulin) 100 unit/mL (3 mL) insulin pen Active 56 U SC EVERY EVENING September 13, 2024 12:00am Start: 09-13-2024 Insulin Glargi ne (Lantus Solostar U-100 Insulin) 100 unit/mL (3 mL) insulin pen Active 56 U SC EVERY EVENING September 13, 2024 12:00am On Hold: Hold if glucose less than 130 mg/dl Start: 05-10-2024 End: 07-13-2024 Insulin Glargine (Lantus Jenny ostar U-100 Insulin) 100 unit/mL (3 mL) insulin pen Discontinued 54 U SC AT BEDTIME May 10, 2024 11:57am July 13, 2024 3:18pm DIABETES Start: 02-11-2024 End: 05-10-2024 Insulin Glargine (Lantus Jenny ostar U-100 Insulin) 100 unit/mL (3 mL) insulin pen Discontinued 40 U SC AT BEDTIME February 11, 2024 11:35am May 10, 2024 12:01pm DIABETES Start: 11-18-2023 End: 07-13-2024 Start: 11-18-2023 End: 02-11-2024 Insulin Glargine (Lantus Jenny ostar U-100 Insulin) 100 unit/mL (3 mL) insulin pen Discontinued 38 U SC AT BEDTIME November 18, 2023 12:00am February 11, 2024 11:37am DIABETES inject 38 [IU] by canela bcutaneous injection once daily at bedtime insulin glargine (LANTUS U-100 INSULIN) 100 unit/mL injection Inject 38 Units subcutaneously daily at bedtime. Active 3 ml insulin lispro 100 unt/ml pen injector (8 sources) Insulin Analog Start: 12-18-2024 End: 12-28-2024 ammonium lactate 120 mg/ml topical cream (7 sources) Start: 11-30-2024 Lactobacillus acidophilus (4 sources) Start: 01-10-2022 Lactobacillus Acidophilus (Acidophilus) capsule Active 2000 MMU CELLS PO DAILY January 10, 2022 12:00am lisinopril 2.5 mg oral tablet (20 sources) Angiotensin Converting Enzyme Inhibitor Start: 10-20-2024 Start: 07-13-2024 End: 09-13-2024 Start: 05-10-2024 End: 07-07-2024 Start: 11-18-2023 End: 02-12-2024 Start: 04-11-2017 End: 11-18-2023 Start: 04-11-2017 End: 11-18-2023 take 2.5 mg by mouth once daily Lisinopril 10 mg table t Discontinued 2.5 mg PO DAILY January 10, 2022 10:02am November 18, 2023 11:56am blood pressure Start: 04-11-2017 End: 01-10-2022 take 1 tablet by mouth once daily Lisinopril 10 MG tablet Discontinued 10 mg PO DAILY September 13, 2021 4:58pm January 10, 2022 10:07am blood pressure Magnesium Hydroxide (5 sources) Start: 11-30-2024 take 1 mL by mouth once daily as needed for constipation Magnesium Hydroxide (Dulcolax (Magnesium Hydroxide)) 400 mg/5 mL suspension Active 30 mL PO DAILY as needed for constipation November 30, 2024 12:00am midodrine hydrochloride 10 mg oral tablet (4 sources) alpha-Adrener gic Agonist Start: 12-18-2024 Mineral Oil-Hydrophil Petrolat (Ameriphor) ointment (12 sources) Start: 11-30-2024 Mineral Oil-Hydrophil Petrolat (Ameriphor) ointment Active 1 NMA TOPICAL DAILY November 30, 2024 12:00am Start: 12-30-2023 End: 02-12-2024 Mineral Oil-Hydrophil Petrol at (Ameriphor) ointment Discontinued 1 NMA TOPICAL AT BEDTIME December 30, 2023 12:00am February 12, 2024 4:11pm DRY SKIN APPLY ONE APPLICATION TOPICALLY TO BILATERAL LOWER EXTREMITIES AT BEDTIME Start: 12-30-2023 End: 02-12-2024 Mineral Oil-Hydrophil Petrol at (Ameriphor) ointment Discontinued 1 NMA TOPICAL AT BEDTIME December 30, 2023 12:00am February 12, 2024 4:11pm APPLY ONE APPLICATION TOPICALLY TO BILATERAL LOWER EXTREMITIES AT BEDTIME montelukast 10 mg oral tablet (17 sources) Leukotriene Receptor Antagonist Start: 01-10-2022 Marion-3 Fatty Acids (3 sources) Start: 02-04-2022 take 1000 mg by mouth twice daily Marion-3 Fatty Acids Active 1000 MG PO TWICE A DAY February 04, 2022 12:00am ondansetron 4 mg disintegrating oral tablet (7 sources) Serotonin-3 Receptor Antagonist Start: 11-30-2024 microencapsulated potassium chloride 20 meq extended release oral tablet (20 sources) Start: 04-23-2019 predniSONE 20 mg oral tablet (2 sources) Start: 12-28-2024 1 mg dose 1.5 ml semaglutide 1.34 mg/ml pen injector (4 sources) inject 2 mg by subcutaneous injection every week semaglutide (OZEMPIC) 1 mg/0.75 ml subcutaneous pen injector Inject 2 mg subcutaneously one time a week. Active Semaglutide (Ozempic) 2 mg/dose (8 mg/3 mL) pen injector (14 sources) Start: 07-13-2024 Semaglutide (Ozempic) 2 mg/dose (8 mg/3 mL) pen injector Active 2 mg SC EVERY WEEK July 13, 2024 3:16pm DIABETES FRIDAY Start: 07-13-2024 Semaglutide (O zempic) 2 mg/dose (8 mg/3 mL) pen injector Active 2 mg SC EVERY WEEK July 13, 2024 3:16pm FRIDAY Start: 07-13-2024 Semaglutide (O zempic) 2 mg/dose (8 mg/3 mL) pen injector Active 2 mg SC .friJuly 13, 2024 3:16pm Start: 10-22-2023 End: 07-13-2024 Semaglutide (Ozempic) 2 mg/d ose (8 mg/3 mL) pen injector Discontinued 2 mg SC October 22, 2023 12:00am July 13, 2024 3:18pm DIABETES Start: 10-22-2023 End: 07-13-2024 Semaglutide (Ozempic) 2 mg/d ose (8 mg/3 mL) pen injector Discontinued 2 mg SC October 22, 2023 12:00am July 13, 2024 3:18pm Sennosides (Greer-Danyel) 8.6 mg tablet (6 sources) Start: 11-11-2024 Sennosides (Ge ri-Danyel) 8.6 mg tablet Active 17.2 mg PO daily November 11, 2024 12:00am sennosides, fdc 8.6 mg oral tablet (1 source) senna (GREER-DANYEL) 8.6 mg tab Take 17.2 mg by mouth every evening. Active sotalol hydrochloride 120 mg oral tablet (20 sources) Antiarrhythmic Start: 11-30-2024 Start: 03-31-2024 End: 11-30-2024 Start: 02-05-2021 End: 02-12-2024 take 1 tablet by mouth every twelve hours Sotalol 120 mg tablet Discontinued 120 mg PO Q12H February 05, 2021 12:00am February 12, 2024 4:11pm HEART ARRHYTHMIA Start: 01-24-2021 End: 02-12-2024 tamsulosin hydrochloride 0.4 mg oral capsule (20 sources) alpha-Adrenergic Ligia Start: 02-05-2021 traZODone hydrochloride 50 mg oral tablet (20 sources) Serotonin Reuptake Inhibitor Start: 11-11-2024 take 2 tablets by mouth at bedtime Trazodone 50 mg tablet Active 100 mg PO AT BEDTIME November 11, 2024 3:01pm SLEEP Start: 11-11-2024 take 3 tablets by mo uth at bedtime Trazodone 50 mg tablet Active 150 mg PO AT BEDTIME November 11, 2024 3:01pm SLEEP Start: 11-05-2023 End: 11-11-2024 Start: 11-05-2023 End: 11-11-2024 Trazodone 50 mg tablet Disco ntinued 25 mg PO AT BEDTIME July 07, 2024 9:16am November 11, 2024 3:03pm SLEEP venlafaxine 37.5 mg oral tablet (9 sources) Serotonin and Norepinephrine Reuptake Inhibitor Start: 11-19-2024 venlafaxine (EFF EXOR) 25 mg tablet Take 25 mg by mouth two times a day. Increase to 37.5 MG by mouth twice daily after 14 days Active (20 sources) Start: 12-18-2024 Start: 11-30-2024 Start: 11-11-2024 Start: 09-13-2024 End: 11-11-2024 Start: 09-13-2024 End: 11-11-2024 Start: 07-13-2024 Start: 07-07-2024 End: 07-13-2024 Start: 12-30-2023 End: 02-12-2024 Start: 10-22-2023 End: 11-18-2023 Start: 10-22-2023 End: 07-13-2024 Start: 11-25-2022 Start: 11-25-2022 End: 10-22-2023 Start: 11-25-2022 End: 11-05-2023 Start: 02-04-2022 End: 03-29-2024 Start: 02-04-2022 End: 01-01-2024 Completed/Discontinued Medications Medication Drug Class(es) Dates Sig (Normalized) Sig (Original) acetaminophen 325 mg / oxyCODONE hydrochloride 5 mg oral tablet (17 sources) Opioid Agonist Start: 02-28-2019 End: 03-05-2019 Start: 02-28-2019 End: 03-05-2019 Oxycodone-Acetaminophen 1 TA BLET tablet Discontinued 1 {tbl} PO EVERY 6 HOURS NEEDED as needed for Pain 12 3 0 February 28, 2019 March 02, 2019 12:00am March 05, 2019 12:11am Calculus of left ureter Calculus of ureter Start: 02-28-2019 End: 03-05-2019 take 1 tablet by mouth every six hours as needed Oxycodone-Acetaminophen Discontinued 1 TABLET PO EVERY 6 HOURS NEEDED 12 3 February 28, 2019 March 05, 2019 12:11am Alum-Mag Hydroxide-Simeth (Mylanta Maximum Strength) 400-400-40 mg/5 mL suspension (7 sources) Start: 02-04-2022 End: 03-29-2024 take 1 mL by mouth three times daily as needed Alum-Mag Hydroxide-Simeth (Mylanta Maximum Strength) 400-400-40 mg/5 mL suspension Discontinued 30 mL PO THREE TIMES A DAY as needed for INDIGESTION February 04, 2022 12:00am March 29, 2024 4:32pm amoxicillin 875 mg / clavulanate 125 mg oral tablet (13 sources) Penicillin-class Antibacterial Start: 01-10-2022 End: 02-04-2022 Start: 01-10-2022 End: 02-04-2022 Amoxicillin-Pot Clavulanate 875-125 mg tablet Discontinued 1 {tbl} PO TWICE A DAY January 10, 2022 12:00am February 04, 2022 10:50am Start: 01-10-2022 End: 02-04-2022 take 1 tablet by mouth twice daily Amoxicillin-Pot Clavulanate Discontinued 1 TABLET PO TWICE A DAY January 10, 2022 12:00am February 04, 2022 10:50am Aspirin (20 sources) Platelet Aggregation Inhibitor, Nonstero idal Anti-inflammatory Drug Start: 09-13-2024 End: 11-11-2024 Start: 09-13-2024 End: 11-11-2024 take 1 capsule by mouth once daily Aspirin 81 mg capsule Discontinued 81 mg PO DAILY September 13, 2024 12:00am November 11, 2024 3:03pm Start: 01-24-2021 End: 03-29-2024 atorvastatin 10 mg oral tablet (20 sources) HMG-CoA Reductase Inhibitor Start: 02-05-2021 End: 11-18-2023 Atorvastatin 10 mg tablet Discontinued 80 mg PO AT BEDTIME February 05, 2021 10:29am November 18, 2023 11:54am CHOLESTEROL Start: 02-05-2021 take 80 mg by mouth at bedtime Atorvastatin Active 80 MG PO AT BEDTIME February 05, 2021 10:29am Start: 01-24-2021 Start: 01-18-2021 End: 11-18-2023 Start: 01-18-2021 End: 02-05-2021 take 1 tablet by mouth at bedtime Atorvastatin 10 mg tablet Discontinued 10 mg PO AT BEDTIME January 18, 2021 12:00am February 05, 2021 10:32am CHOLESTEROL Benzocaine (11 sources) Standardized Chemical Allergen Start: 11-25-2022 End: 11-05-2023 Benzocaine 7.5 % gel Discontinued NMA MUCOUS MEM EVERY 6 HOURS November 25, 2022 12:00am November 05, 2023 8:40am 4 times daily as needed benzocaine 20 % gel Use 1 application as instructed as needed (sore gums). One dental application every 4 hours as needed for sore gums (supervised self-administration) Active cephalexin 500 mg oral capsu le (4 sources) Cephalosporin Antibacterial Start: 12-18-2024 End: 12-28-2024 ciprofloxacin 500 mg oral ta blet (9 sources) Quinolone Antimicrobial Start: 01-01-2024 End: 02-11-2024 citalopram 20 mg oral tablet (20 sources) Serotonin Reuptake Inhibitor Start: 02-12-2024 End: 03-29-2024 Start: 01-18-2021 End: 05-22-2021 Marion 2-Gkp-Qvv-Fish Oil (9 sources) Start: 02-12-2024 End: 03-29-2024 Start: 02-12-2024 End: 03-29-2024 Marion 2-Wks-Ikx-Fish Oil (Fi sh Oil) 300-1,000 mg capsule Discontinued 1 NMA PO DAILY February 12, 2024 12:00am March 29, 2024 4:35pm docusate sodium 50 mg / flako osides, fdc 8.6 mg oral tablet (20 sources) Start: 02-05-2021 End: 07-13-2024 Start: 02-05-2021 End: 07-13-2024 Sennosides-Docusate Sodium ( Senna Plus) 8.6-50 mg tablet Discontinued 2 {tbl} PO EVERY EVENING February 05, 2021 12:00am July 13, 2024 3:18pm CONSTIPATION doxycycline hyclate 100 mg o ral capsule (8 sources) Tetracycline-class Drug Start: 11-19-2024 End: 12-18-2024 Dulaglutide (20 sources) GLP-1 Receptor Agonist Start: 07-31-2022 End: 10-22-2023 Start: 07-31-2022 End: 10-22-2023 Dulaglutide (Trulicity) 4.5 mg/0.5 mL pen injector Discontinued 4.5 mg SC FR July 31, 2022 1:00am October 22, 2023 8:49am Start: 05-22-2021 Dulaglutide Ac tive 4.5 MG SC EVERY WEEK May 22, 2021 11:33am Start: 05-22-2021 Dulaglutide (T rulicity) 4.5 mg/0.5 mL pen injector Active 4.5 MG SC EVERY WEEK May 22, 2021 11:33am Start: 05-22-2021 End: 07-31-2022 Start: 05-22-2021 End: 07-31-2022 Dulaglutide 4.5 mg/0.5 mL pe n injector Discontinued 4.5 mg SC EVERY WEEK May 22, 2021 1:00am July 31, 2022 11:04am diabetes Start: 05-22-2021 End: 07-31-2022 Dulaglutide 4.5 mg/0.5 [...] 22, 2021 11:33am Start: 01-18-2021 End: 05-22-2021 Start: 01-18-2021 End: 05-22-2021 Dulaglutide (Trulicity) 3 mg /0.5 mL Pen Injector Discontinued 4.5 mg SC FR January 18, 2021 12:00am May 22, 2021 11:33am DM Start: 01-18-2021 End: 05-22-2021 Dulaglutide (Trulicity) 3 [...] sources) Serotonin and Norepinephrine Reuptake Inhibitor Start: 01-18-2021 End: 10-20-2024 Start: 01-18-2021 End: 05-22-2021 take 1 capsule by mouth once daily Duloxetine 60 mg capsule,delayed release(DR/EC) Discontinued 60 mg PO DAILY January 18, 2021 12:00am May 22, 2021 11:34am DEPRESSION furosemide 40 mg oral tablet (20 sources) Loop Diuretic Start: 04-23-2019 End: 11-19-2024 Start: 04-23-2019 End: 11-19-2024 hypromellose 17 mg/ml ophtha lmic solution (9 sources) Start: 11-25-2022 End: 03-29-2024 Insulin Glargine (Lantus U-1 00 Insulin) 100 unit/mL solution (14 sources) Start: 10-22-2023 End: 11-18-2023 Insulin Glargine (Lantus U-1 00 Insulin) 100 unit/mL solution Discontinued 38 U SC EVERY EVENING October 22, 2023 8:44am November 18, 2023 11:59am Start: 11-25-2022 End: 10-22-2023 Insulin Glargine (Lantus U-1 00 Insulin) 100 unit/mL solution Discontinued 7 U SC EVERY EVENING November 25, 2022 12:00am October 22, 2023 8:53am levothyroxine sodium 0.075 m g oral tablet (20 sources) l-Thyroxine Start: 11-30-2024 End: 12-15-2024 Start: 02-12-2024 End: 07-07-2024 Start: 11-22-2023 take 1 tablet by roosevelt th once daily in the morning levothyroxine (SYNTHROID) 25 mcg tablet Take 1 tablet by mouth daily at 6 am. Add to 200 mcg tablets for total 225 mcg 30 tablet 1 11/23/2023 Active Start: 11-18-2023 End: 07-07-2024 Start: 11-18-2023 End: 07-07-2024 Start: 07-31-2022 End: 11-18-2023 Start: 10-02-2021 End: 02-04-2022 Start: 02-05-2021 End: 07-31-2022 Start: 02-05-2021 End: 07-31-2022 take 1 capsule by mouth once daily Levothyroxine 200 mcg capsule Discontinued 200 ug PO DAILY February 05, 2021 12:00am July 31, 2022 11:00am thyroid Start: 04-23-2019 End: 01-18-2021 Start: 04-11-2017 End: 04-23-2019 levothyroxine (S YNTHROID) 25 mcg tablet Take 25 mcg by mouth daily before breakfast. Add to 200 mcg tablet for a total dose of 225 mcg each morning. 0 Suspended melatonin 10 mg oral tablet (20 sources) Start: 07-07-2024 End: 11-11-2024 take 9 mg by mouth at bedtime Melatonin 10 mg tablet Discontinued 9 mg PO AT BEDTIME July 13, 2024 3:14pm November 11, 2024 3:03pm SLEEP Start: 11-22-2023 take 1 tablet by roosevelt th once daily at bedtime melatonin 3 mg tablet Take 1 tablet by mouth daily at bedtime. 30 tablet 11/22/2023 Active Start: 07-31-2022 End: 11-11-2024 Start: 01-10-2022 End: 07-31-2022 Start: 01-10-2022 End: 07-31-2022 take 1 capsule by mouth at bedtime as needed for sleep Melatonin 3 mg capsule Discontinued 3 mg PO BEDTIME as needed for Sleep January 10, 2022 12:00am July 31, 2022 11:03am metFORMIN hydrochloride 1000 mg oral tablet (20 sources) Biguanide Start: 01-18-2021 End: 12-28-2024 Start: 04-11-2017 End: 04-23-2019 metoprolol tartrate 25 mg or al tablet (20 sources) beta-Adrenergic Ligia Start: 12-30-2023 End: 03-31-2024 Start: 12-30-2023 End: 03-31-2024 Start: 12-30-2023 End: 02-12-2024 Metoprolol Tartrate 25 mg ta blet Discontinued 12.5 mg PO TWICE A DAY December 30, 2023 12:00am February 12, 2024 4:13pm BLOOD PRESSURE Start: 11-22-2023 End: 12-30-2023 Start: 10-02-2021 End: 12-14-2023 Start: 10-02-2021 End: 12-14-2023 Start: 10-02-2021 End: 12-14-2023 Metoprolol Tartrate 25 mg ta blet Discontinued 12.5 mg PO TWICE A DAY October 02, 2021 12:00am December 14, 2023 7:30pm Start: 01-18-2021 End: 09-15-2021 Start: 01-18-2021 End: 09-15-2021 nystatin 100 unt/mg topical powder (20 sources) Polyene Antifungal Start: 09-13-2024 End: 11-11-2024 Start: 09-13-2024 End: 11-11-2024 Nystatin 100,000 unit/gram p owder Discontinued 1 NMA TOPICAL 4 TIMES DAILY NEEDED as needed for SKIN FOLDS September 13, 2024 12:00am November 11, 2024 3:03pm Start: 12-30-2023 End: 03-29-2024 Start: 12-30-2023 End: 03-29-2024 Nystatin 100,000 unit/gram p owder Discontinued 1 NMA TOPICAL THREE TIMES A DAY as needed for REDNESS/RASH December 30, 2023 12:00am March 29, 2024 4:35pm APPLY ONE APPLICATION TOPICALLY TO ABDOMINAL FOLDS THREE TIMES DAILY NEEDED FOR REDNESS/RASH Start: 10-02-2021 End: 02-04-2022 Start: 10-02-2021 End: 02-04-2022 Nystatin 100,000 unit/gram p owder Discontinued 1 NMA TOPICAL DAILY October 02, 2021 12:00am February 04, 2022 10:50am Start: 10-02-2021 End: 02-04-2022 Nystatin Discontinued 1 APPL IC TOPICAL DAILY October 02, 2021 12:00am February 04, 2022 10:50am Marion-3 Fatty Acids 1,000 mg capsule (14 sources) Start: 07-07-2024 End: 07-13-2024 take 1 capsule by mouth twice daily Marion-3 Fatty Acids 1,000 mg capsule Discontinued 1000 mg PO TWICE A DAY July 07, 2024 1:00am July 13, 2024 3:18pm Start: 02-04-2022 End: 01-01-2024 take 1 capsule by mouth twice daily Marion-3 Fatty Acids 1,000 mg capsule Discontinued 2000 mg PO TWICE A DAY February 04, 2022 12:00am January 01, 2024 12:30pm SUPPLEMENT Start: 02-04-2022 End: 01-01-2024 take 1 capsule by mouth twice daily Marion-3 Fatty Acids 1,000 mg capsule Discontinued 2000 mg PO TWICE A DAY February 04, 2022 12:00am January 01, 2024 12:30pm Marion-3 Fatty Acids capsule (7 sources) Start: 09-13-2024 End: 11-11-2024 take 1 capsule by mouth once daily Marion-3 Fatty Acids capsule Discontinued 2000 mg PO DAILY September 13, 2024 12:00am November 11, 2024 3:03pm Start: 09-13-2024 take 1 capsule by mouth once d ravi Marion-3 Fatty Acids capsule Active 2000 mg PO DAILY September 13, 2024 12:00am omeprazole 20 mg delayed release oral capsule (20 sources) Proton Pump Inhibitor Start: 10-22-2023 End: 07-13-2024 polyethylene glycol 3350 90139 mg powder for oral solution (20 sources) Osmotic Laxative Start: 07-13-2024 End: 07-13-2024 Polyethylene Glycol 3350 (Miralax) 17 gram/dose powder Discontinued 4 g PO ONCE 238 0 July 13, 2024 1:00am July 13, 2024 4:14pm colonoscopy Take as directed for 2day bowel prep Start: 02-12-2024 End: 12-18-2024 polyethylene glycol 3350 679189 mg / potassium chloride 2970 mg / sodium bicarbonate 6740 mg / sodium chloride 5860 mg / sodium sulfate 12307 mg powder for oral solution (9 sources) Osmotic Laxative Start: 07-13-2024 End: 09-13-2024 Senna-Docusate Sodium tablet (7 sources) Start: 09-13-2024 End: 11-11-2024 Senna-Docusate Sodium tablet Discontinued 2 {tbl} PO AT BEDTIME September 13, 2024 12:00am November 11, 2024 3:02pm Start: 09-13-2024 Senna-Docusate Sodium tablet Active 2 {tbl} PO AT BEDTIME September 13, 2024 12:00am simvastatin 20 mg oral table t (20 sources) HMG-CoA Reductase Inhibitor Start: 04-11-2017 End: 12-14-2018 sodium chloride 0.111 meq/ml nasal spray (13 sources) Start: 11-25-2022 End: 03-29-2024 Start: 11-25-2022 End: 03-29-2024 Sodium Chloride ([place] christine) 0.65 % aerosol,spray Discontinued 2 NMA INTRANASAL [...] 0 Suspended ticagrelor 90 mg oral tablet (18 sources) Start: 01-24-2021 End: 02-04-2022 Problems Active Problems Problem Classification Problem Date Documented Da te Episodic/Chronic Abdominal pain (20 sources) Left upper quadrant pain; Translations: [Left upper quadrant pain] Onset: 10-29-2024 07-13-2024 Episodic Attention-deficit, conduct, and disruptive behavior disorders (17 sources) Very low level of personal hygiene; Translations: [Very low level of personal hygiene] 07-07-2018 Episodic Cancer of thyroid (4 sources) Papillary thyroid carcinoma; Translations: [Malignant neoplasm of thyroid gland] Onset: 05-11-2015 05-11-2015 Chronic Cancer of thyroid (17 sources) History of malignant neoplasm of thyroid; Translations: [Personal history of malignant neoplasm of thyroid] 07-07-2018 Episodic Cardiac dysrhythmias (20 sources) Ventricular tachycardia; Translations: [Ventricular tachycardia] Onset: 01-20-2021 Resolved: 11-22-2023 Chronic Cardiac dysrhythmias (20 sources) Bradycardia; Translations: [Bradycardia, unspecified] Onset: 08-05-2024 Episodic Chronic ulcer of skin (20 sources) Non-pressure chronic ulcer of unspecified part of left lower leg limited to breakdown of skin; Translations: [Non-pressure chronic ulcer of other part of right foot with necrosis of muscle] Onset: 08-20-2018 12-13-2018 Chronic Conditions associated with dizziness or vertigo (20 sources) Dizziness; Translations: [Dizziness and giddiness] Episodic Congestive heart failure; nonhypertensive (10 sources) Chronic heart failure co-occurrent with normal ejection fraction; Translations: [Chronic diastolic (congestive) heart failure] Onset: 01-22-2021 Resolved: 01-16-2024 01-22-2021 Chronic Coronary atherosclerosis and other heart disease (20 sources) Coronary atherosclerosis; Translations: [Atherosclerotic heart disease of [place] coronary artery without angina pectoris] Onset: 06-23-2020 Chronic Coronary atherosclerosis and other heart disease (20 sources) Presence of coronary angioplasty implant and graft; Translations: [Percutaneous transluminal coronary angioplasty status] Onset: 01-18-2021 Episodic Deficiency and other anemia (19 sources) Anemia; Translations: [Anemia, unspecified] 07-13-2024 Episodic Deficiency and other anemia (7 sources) Chronic anemia; Translations: [Anemia, unspecified] 11-30-2024 Episodic Deficiency and other anemia (6 sources) Iron deficiency anemia; Translations: [Iron deficiency anemia, unspecified] 12-22-2024 Episodic Deficiency and other anemia (1 source) Other iron deficiency anemias; Translations: [Other iron deficiency anemias] Onset: 12-29-2024 Episodic Deficiency and other anemia (2 sources) Anemia, unspecified; Translations: [Anemia, unspecified] Onset: 10-29-2024 Episodic Diabetes mellitus with complications (20 sources) Type 2 diabetes mellitus with foot ulcer; Translations: [Skin ulcer due to diabetes mellitus] Onset: 11-02-2012 Resolved: 01-16-2024 01-22-2021 Chronic Diabetes mellitus without complication (17 sources) Diabetes mellitus; Translations: [Type 2 diabetes mellitus without complications] 12-25-2018 Chronic Disorders of lipid metabolism (20 sources) Hyperlipidemia; Translations: [Hyperlipidemia, unspecified] Onset: 01-16-2024 [...] aureus] Onset: 08-28-2018 Episodic Malaise and fatigue (7 sources) Malaise; Translations: [Other malaise] 11-30-2024 Episodic Mood disorders (19 sources) Depressive disorder; Translations: [Depression] Onset: 01-16-2024 07-07-2018 Chronic Mycoses (17 sources) Onychomycosis due to dermatophyte ; Translations: [Tinea unguium] 12-13-2018 Episodic Nonspecific chest pain (20 sources) Atypical chest pain; Translations: [Other chest pain] Onset: 12-06-2024 01-18-2021 Episodic Other and unspecified benign neoplasm (10 sources) History of polyp of colon; Translations: [History of colonic polyps] 09-17-2022 Episodic Other circulatory disease (9 sources) H/O: heart failure; Translations: [Personal history of other diseases of the circulatory system] 12-22-2023 Episodic Other circulatory disease (9 sources) H/O: heart disorder; Translations: [Personal history of other diseases of the circulatory system] 12-22-2023 Episodic Other connective tissue disease (17 sources) Swelling of lower limb; Translations: [Other specified soft tissue disorders] 07-07-2018 Episodic Other connective tissue disease (1 source) Other specified soft tissue disorders; Translations: [Other specified soft tissue disorders] Onset: 12-30-2024 Episodic Other diseases of veins and lymphatics (8 sources) Stasis dermatitis; Translations: [Venous insufficiency (chronic) (peripheral)] Episodic Other diseases of veins and lymphatics (17 sources) Peripheral venous insufficiency; Translations: [Venous insufficiency (chronic) (peripheral)] 12-18-2018 Episodic Other diseases of veins and lymphatics (9 sources) Disorder of vein of lower extremity; Translations: [Venous insufficiency (chronic) (peripheral)] 04-21-2019 Episodic Other endocrine disorders (7 sources) Hypoglycemia; Translations: [Hypoglycemia, unspecified] 11-30-2024 Chronic Other hematologic conditions (9 sources) History of anemia; Translations: [Personal history of diseases of the blood and blood-forming organs and certain disorders involving the immune mechanism] 12-22-2023 Episodic Other injuries and conditions due to external causes (9 sources) Closed injury of head; Translations: [Unspecified injury of head, initial encounter] 11-23-2022 Episodic Other liver diseases (20 sources) Alkaline phosphatase raised; Translations: [Abnormal levels of other serum enzymes] 07-22-2024 Episodic Other liver diseases (2 sources) Abnormal levels of other serum enzymes; Translations: [Abnormal levels of other serum enzymes] Onset: 11-11-2024 Episodic Other lower respiratory disease (15 sources) Acute respiratory insufficiency 04-21-2019 Episodic Other lower respiratory disease (20 sources) Dyspnea; Translations: [Dyspnea, unspecified] 01-10-2022 Episodic Other lower respiratory disease (4 sources) Shortness of breath; Translations: [Shortness of breath] Episodic Other lower respiratory disease (9 sources) History of chronic obstructive airway disease; Translations: [Personal history of other diseases of the respiratory system] 12-22-2023 Episodic Other lower respiratory disease (6 sources) Hypoxia; Translations: [Hypoxemia] 12-23-2024 Episodic Other lower respiratory disease (2 sources) Hypoxemia; Translations: [Hypoxemia] Onset: 12-28-2024 Episodic Other nutritional; endocrine; and metabolic disorders (20 sources) Body mass index 40+ - severely obese; Translations: [Morbid (severe) obesity due to excess calories] Onset: 10-30-2017 Resolved: 01-16-2024 01-22-2021 Chronic Other nutritional; endocrine; and metabolic disorders (13 sources) Morbid obesity; Translations: [Morbid (severe) obesity due to excess calories] 01-10-2022 Chronic Other nutritional; endocrine; and metabolic disorders (4 sources) Morbid (severe) obesity due to excess calories; Translations: [Morbid obesity] Chronic Other nutritional; endocrine; and metabolic disorders (4 sources) Cholesterol level - finding; Translations: [Lipoprotein deficiency] Onset: 10-19-2012 10-19-2012 Chronic Other nutritional; endocrine; and metabolic disorders (10 sources) Loss of appetite; Translations: [Anorexia] 07-13-2024 Episodic Other nutritional; endocrine; and metabolic disorders (16 sources) H/O: diabetes mellitus; Translations: [Personal history of other endocrine, nutritional and metabolic disease] 12-22-2023 Episodic Other screening for suspected conditions (not mental disorders or infectious disease) (20 sources) Patient encounter status; Translations: [Encounter for screening for malignant neoplasm of colon] Onset: 01-24-2021 01-24-2021 Episodic Other skin disorders (17 sources) Macerated skin; Translations: [Other specified disorders of the skin and subcutaneous tissue] 04-22-2019 Episodic Other skin disorders (17 sources) Hypertrophic condition of skin; Translations: [Hypertrophic disorder of the skin, unspecified] 07-07-2018 Episodic Other skin disorders (17 sources) Foot callus; Translations: [Corns and callosities] 07-07-2018 Episodic Other upper respiratory disease (9 sources) Bleeding from nose; Translations: [Epistaxis] 11-23-2022 Episodic Residual codes; unclassified (9 sources) Obstructive sleep apnea syndrome; Translations: [Obstructive sleep apnea (adult) (pediatric)] 11-25-2022 Chronic Residual codes; unclassified (20 sources) Bilateral lower limb edema; Translations: [Localized edema] 07-07-2018 Episodic Residual codes; unclassified (17 sources) Noncompliance with medication regimen; Translations: [Patient's other noncompliance with medication regimen] 04-23-2019 Episodic Residual codes; unclassified (17 sources) Dependent edema; Translations: [Edema, unspecified] 07-07-2018 Episodic Respiratory failure; insufficiency; arrest (adult) (2 sources) Chronic respiratory failure with hypercapnia; Translations: [Chronic respiratory failure with hypercapnia] Onset: 12-28-2024 Chronic Respiratory failure; insufficiency; arrest (adult) (6 sources) [id number] respiratory failure; Translations: [Acute respiratory failure with hypoxia] Onset: 12-28-2024 12-27-2024 Episodic Skin and subcutaneous tissue infections (20 sources) Cellulitis of lower limb; Translations: [Cellulitis of left lower limb] Onset: 12-29-2024 04-20-2019 Episodic Superficial injury; contusion (9 sources) Contusion of face; Translations: [Contusion of [...] Onset: 08-05-2024 Varicose veins of lower extremity (17 sources) Venous stasis ulcer of leg; Translations: [Varicose veins of left lower extremity with both ulcer of unspecified site and inflammation] 04-22-2019 Episodic Past or Other Problems Problem Classification Problem Date Documented Date Episodic/Chronic Diabetes mellitus without complication (4 sources) Hyperglycemia; Translations: [Hyperglycemia, unspecified] Onset: 10-19-2012 Resolved: 01-17-2016 01-17-2016 Episodic Other aftercare (4 sources) Taking high risk medication; Translations: [Other rat exterminator (current) drug therapy] Onset: 01-22-2021 01-22-2021 Episodic [...] caused by tuberculosis or sexually transmitted disease) (15 sources) Pneumonia (except that caused by tuberculosis or sexually transmitted disease) 04-21-2019 Residual codes; unclassified (2 sources) History of cardiac catheterization; Translations: [Other specified postprocedural states] Onset: 11-21-2023 01-16-2024 Episodic Residual codes; unclassified (4 sources) Past history of procedure; Translations: [Personal history of other medical treatment] Onset: 11-19-2023 01-16-2024 Episodic Results Test Name Value Interpretation Reference Range Facility Absolute lymphocyte countOrd ered By: Marcellus Gunn on 12-28-2024 Lymphocytes Auto (Unsp spec) [#/Vol] 2.13 10*3/uL 0.83-4.51 [facility] Anion gap in Serum or Plasma Ordered By: Alex Mayen on 12-28-2024 Anion gap [Moles/Vol] 9 mmol/L 5-15 [facility] Automated lymphocyte count a s percentage of total leukocytesOrdered By: Marcellus Gunn on 12-28-2024 Lymphocytes/100 WBC Auto (Unsp spec) 18.8 % Low 19-41 [facility] BUN/creatinine ratioOrdered By: Alex Mayen on 12-28-2024 Urea nitrogen/Creatinine [Mass ratio] 32.1 mg/mg High 10- [facility] Basic Metabolic Profile (BMP )on 12-28-2024 BUN/CRE 32.1 RATIO High 04-11 [facility] Comment on above: Performed By: #### L [id number] ####[facility] [id number] [place], [address] Calcium [Mass/Vol] 8.6 mg/dL Normal 7.6-11.0 [facility] Comment on above: Performed By: #### L [id number] ####[facility] [id number] [place], [address] Chloride [Moles/Vol] 96 mmol/L Low 98-108 [facility] Comment on above: Performed By: #### L [id number] ####[facility] [id number] [place], [address] CO2 [Moles/Vol] 33.6 mmol/L High 21.0-32.0 [facility] Comment on above: Performed By: #### L [id number] ####[facility] [id number] [place], [address] Creatinine [Mass/Vol] 0.59 mg/dL Low 0.70-1.20 [facility] Comment on above: Performed By: #### L 500.2500 ####[facility] [address] [place], [address] ECRCL 203.53 ml/min Normal 50-250 [facility] Comment on above: Performed By: #### L 500.2500 ####[facility] [address] [place], [address] GAP 9 Normal 5-15 [facility] Comment on above: Performed By: #### L 500.2500 ####[facility] [address] [place], [address] GFR/1.73 sq M.predicted among non-blacks MDRD (S/P/Bld) [Vol rate/Area] 112 mL/min/{1.73_m2} Normal >60 [facility] Comment on above: Result Comment: mL/m in/1.73m2 CKD-EPI Creatinine Equation (2020) Performed By: #### L 500.2500 ####[facility] [address] [place], [address] Glucose [Mass/Vol] 98 mg/dL Normal 70-99 [facility] Comment on above: Performed By: #### L 500.2500 ####[facility] [address] [place], [address] Potassium [Moles/Vol] 4.3 mmol/L Normal 3.3-5.1 [facility] Comment on above: Performed By: #### L 500.2500 ####[facility] [address] [place], [address] Sodium [Moles/Vol] 139 mmol/L Normal 133-145 [facility] Comment on above: Performed By: #### L 500.2500 ####[facility] [address] [place], [address] Urea nitrogen [Mass/Vol] 19 mg/dL Normal 4-19 [facility] Comment on above: Performed By: #### L 500.2500 ####[facility] [address] [place], [address] Basophil percentageOrdered B y: Marcellus Luis A on 12-28-2024 Basophils/100 WBC (Bld) 0.1 % 0-1 [facility] Bedside Glucoseon 12-28-2024 FINGERSTICK GLU 154 mg/dL High 74-106 [facility] Comment on above: Result Comment: MELI GEMENT OF PATIENT CARE PER NURSING PROTOCOL Performed By: #### L 501.080 ####[facility] [address] [place], [address] FINGERSTICK GLU 97 mg/dL Normal 74-106 [facility] Comment on above: Result Comment: MELI GEMENT OF PATIENT CARE PER NURSING PROTOCOL Performed By: #### L 501.080 ####[facility] [address] [place], [address] CBC W/Diff, Automatedon 07-0 Anisocytosis Ql (Bld) 1+ Normal [facility] Comment on above: Performed By: #### L 100.0100 ####[facility] [address] [place], [address] PLT EST 1 Normal ADEQ [facility] Comment on above: Performed By: #### L 100.0100 ####[facility] [address] [place], [address] Carbon dioxide, total [Moles /volume] in Central venous bloodOrdered By: Alex Mayen on 12-28-2024 CO2 [Moles/Vol] 33.6 mmol/L High 21.0-32.0 [facility] Chloride assayOrdered By: Dhruv Mayen on 12-28-2024 Chloride [Moles/Vol] 96 mmol/L Low 98-108 [facility] Eosinophil percentageOrdered By: Marcellus Gunn on 12-28-2024 Eosinophils/100 WBC (Bld) 0.2 % 0-5 [facility] Erythrocyte distribution wid th ratioOrdered By: Marcellus Gunn on 12-28-2024 Erythrocyte distribution width (RBC) [Ratio] 20.2 % High 11.6-14.6 [facility] Erythrocyte distribution wid th standard deviationOrdered By: Marcellus Gunn on 12-28-2024 Erythrocyte distribution width (RBC) [Ratio] 54.7 fl High 35.1-43.9 [facility] Glomerular filtration rate ( GFR) estimation/1.73 sq m using serum, plasma, or whole bOrdered By: Alex Mayen on 12-28-2024 GFR/1.73 sq M.predicted among non-blacks MDRD (S/P/Bld) [Vol rate/Area] 112 mL/min/{1.73_m2} >60 [facility] Glucose measurement at bedsi deOrdered By: Alex Mayen on 12-28-2024 Glucose [Mass/Vol] 154 mg/dL High 74-106 [facility] Hematocrit Auto (Bld) [Volum e fraction]Ordered By: Marcellus Gunn on 12-28-2024 Hematocrit (Bld) [Volume fraction] 34.5 % Low 40-54 [facility] Hemoglobin measurementOrdere d By: Marcellus Gunn on 12-28-2024 Hemoglobin (Bld) [Mass/Vol] 9.1 g/dL Low 13.0-16.5 [facility] Immature granulocytes/100 WB C Auto (Bld)Ordered By: Marcellus Gunn on 12-28-2024 Immature granulocytes/100 WBC (Bld) 0.400 % 0.0-0.9 [facility] MCV (mean corpuscular volume ) determinationOrdered By: Marcellus Gunn on 12-28-2024 MCV (RBC) [Entitic vol] 76.0 fL Low 80-94 [facility] Mean corpuscular hemoglobin (MCH) determinationOrdered By: Marcellus Gunn on 12-28-2024 MCH (RBC) [Entitic mass] 20.0 pg Low 27.0-32.0 [facility] Monocyte percentageOrdered B y: Marcellus Gunn on 12-28-2024 Monocytes/100 WBC (Bld) 8.7 % 0-10 [facility] Neutrophil percentageOrdered By: Marcellus Gunn on 12-28-2024 Neutrophils/100 WBC (Bld) 71.8 % High 47-70 [facility] No Panel InformationOrdered By: Marcellus Gunn on 12-28-2024 1+ [facility] Platelet countOrdered By: Cain Gunn on 12-28-2024 Platelets (Bld) [#/Vol] 227 10*3/uL 150-450 [facility] Platelet estimateOrdered By: Marcellus Gunn on 12-28-2024 Platelets LM Ql (Bld) 1 ADEQ [facility] Potassium measurement (mass/ volume)Ordered By: Alex Mayen on 12-28-2024 Potassium (Unsp spec) [Mass/Vol] 4.3 mmol/L 3.3-5.1 [facility] RBC Auto (Bld) [#/Vol]Ordere d By: Marcellus Gunn on 12-28-2024 RBC (Bld) [#/Vol] 4.54 10*6/uL Low 4.6-6.2 [facility] Serum creatinine measurement (mass/volume)Ordered By: Alex Mayen on 12-28-2024 Creatinine [Mass/Vol] 0.59 mg/dL Low 0.70-1.20 [facility] Serum glucose measurement (m ass/volume)Ordered By: Alex Mayen on 12-28-2024 Glucose [Mass/Vol] 98 mg/dL 70-99 [facility] Serum or plasma calcium davidson urement (mass/volume)Ordered By: Alex Mayen on 12-28-2024 Calcium [Mass/Vol] 8.6 mg/dL 7.6-11.0 [facility] Serum or plasma urea nitroge n measurement (mass/volume)Ordered By: Alex Mayen on 12-28-2024 Urea nitrogen [Mass/Vol] 19 mg/dL 4-19 [facility] Sodium levelOrdered By: Alex Mayen on 12-28-2024 Sodium [Moles/Vol] 139 mmol/L 133-145 [facility] White blood cell (WBC) count Ordered By: Marcellus Gunn on 12-28-2024 WBC (Bld) [#/Vol] 11.3 10*3/uL High 4.4-11.0 [facility] Basic Metabolic Profile (BMP )on 12-27-2024 BUN/CRE 28.5 RATIO High 10-20 [facility] Comment on above: Performed By: #### L 500.2500 ####[facility] [address] [place], [address] Calcium [Mass/Vol] 8.5 mg/dL Normal 7.6-11.0 [facility] Comment on above: Performed By: #### L 500.2500 ####[facility] [address] [place], [address] Chloride [Moles/Vol] 94 mmol/L Low 98-108 [facility] Comment on above: Performed By: #### L 500.2500 ####[facility] [address] [place], [address] CO2 [Moles/Vol] 34.9 mmol/L High 21.0-32.0 [facility] Comment on above: Performed By: #### L 500.2500 ####[facility] [address] [place], [address] Creatinine [Mass/Vol] 0.64 mg/dL Low 0.70-1.20 [facility] Comment on above: Performed By: #### L 500.2500 ####[facility] [address] [place], [address] ECRCL 187.63 ml/min Normal 50-250 [facility] Comment on above: Performed By: #### L 500.2500 ####[facility] [address] [place], [address] GAP 7 Normal 5-15 [facility] Comment on above: Performed By: #### L 500.2500 ####[facility] [address] [place], [address] GFR/1.73 sq M.predicted among non-blacks MDRD (S/P/Bld) [Vol rate/Area] 109 mL/min/{1.73_m2} Normal >60 [facility] Comment on above: Result Comment: mL/m in/1.73m2 CKD-EPI Creatinine Equation (2020) Performed By: #### L 500.2500 ####[facility] [address] [place], [address] Glucose [Mass/Vol] 103 mg/dL High 70-99 [facility] Comment on above: Performed By: #### L 500.2500 ####[facility] [address] [place], [address] Potassium [Moles/Vol] 4.1 mmol/L Normal 3.3-5.1 [facility] Comment on above: Performed By: #### L 500.2500 ####[facility] [address] [place], [address] Sodium [Moles/Vol] 136 mmol/L Normal 133-145 [facility] Comment on above: Performed By: #### L 500.2500 ####[facility] [address] [place], [address] Urea nitrogen [Mass/Vol] 18 mg/dL Normal 4-19 [facility] Comment on above: Performed By: #### L 500.2500 ####[facility] [address] [place], [address] Bedside Glucoseon 12-27-2024 FINGERSTICK GLU 150 mg/dL High 74-106 [facility] Comment on above: Result Comment: MELI GEMENT OF PATIENT CARE PER NURSING PROTOCOL Performed By: #### L 501.080 ####[facility] [address] [place], [address] FINGERSTICK GLU 236 mg/dL High 74-106 [facility] Comment on above: Result Comment: MELI GEMENT OF PATIENT CARE PER NURSING PROTOCOL Performed By: #### L 501.080 ####[facility] [address] [place], [address] FINGERSTICK GLU 126 mg/dL High 74-106 [facility] Comment on above: Result Comment: MELI GEMENT OF PATIENT CARE PER NURSING PROTOCOL Performed By: #### L 501.080 ####[facility] [address] [place], [address] FINGERSTICK GLU 107 mg/dL High 74-106 [facility] Comment on above: Result Comment: MELI GEMENT OF PATIENT CARE PER NURSING PROTOCOL Performed By: #### L 501.080 ####[facility] [address] [place], [address] Electrocardiogram reportOrde red By: Jeff Weinstein on 12-27-2024 EKG study [facility] Work Phone: Basic Metabolic Profile (BMP )on 12-26-2024 BUN/CRE 23.8 RATIO High 10-20 [facility] Comment on above: Performed By: #### L 500.2500 ####[facility] [address] [place], [address] Calcium [Mass/Vol] 8.7 mg/dL Normal 7.6-11.0 [facility] Comment on above: Performed By: #### L 500.2500 ####[facility] [address] [place], [address] Chloride [Moles/Vol] 93 mmol/L Low 98-108 [facility] Comment on above: Performed By: #### L 500.2500 ####[facility] [address] [place], [address] CO2 [Moles/Vol] 32.3 mmol/L High 21.0-32.0 [facility] Comment on above: Performed By: #### L 500.2500 ####[facility] [address] [place], [address] Creatinine [Mass/Vol] 0.72 mg/dL Normal 0.70-1.20 [facility] Comment on above: Performed By: #### L 500.2500 ####[facility] [address] [place], [address] ECRCL 166.41 ml/min Normal 50-250 [facility] Comment on above: Performed By: #### L 500.2500 ####[facility] [address] [place], [address] GAP 9 Normal 5-15 [facility] Comment on above: Performed By: #### L 500.2500 ####[facility] [address] [place], [address] GFR/1.73 sq M.predicted among non-blacks MDRD (S/P/Bld) [Vol rate/Area] 105 mL/min/{1.73_m2} Normal >60 [facility] Comment on above: Result Comment: mL/m in/1.73m2 CKD-EPI Creatinine Equation (2020) Performed By: #### L 500.2500 ####[facility] [address] [place], [address] Glucose [Mass/Vol] 139 mg/dL High 70-99 [facility] Comment on above: Performed By: #### L 500.2500 ####[facility] [address] [place], [address] Potassium [Moles/Vol] 4.4 mmol/L Normal 3.3-5.1 [facility] Comment on above: Performed By: #### L 500.2500 ####[facility] [address] [place], [address] Sodium [Moles/Vol] 134 mmol/L Normal 133-145 [facility] Comment on above: Performed By: #### L 500.2500 ####[facility] [address] [place], [address] Urea nitrogen [Mass/Vol] 17 mg/dL Normal 4-19 [facility] Comment on above: Performed By: #### L 500.2500 ####[facility] [address] [place], [address] Bedside Glucoseon 12-26-2024 FINGERSTICK GLU 223 mg/dL High 74-106 [facility] Comment on above: Result Comment: MELI GEMENT OF PATIENT CARE PER NURSING PROTOCOL Performed By: #### L 501.080 ####[facility] [address] [place], [address] FINGERSTICK GLU 190 mg/dL High 74-106 [facility] Comment on above: Result Comment: MELI GEMENT OF PATIENT CARE PER NURSING PROTOCOL Performed By: #### L 501.080 ####[facility] [address] [place], [address] FINGERSTICK GLU 250 mg/dL High 74-106 [facility] Comment on above: Result Comment: MELI GEMENT OF PATIENT CARE PER NURSING PROTOCOL Performed By: #### L 501.080 ####[facility] [address] [place], [address] FINGERSTICK GLU 144 mg/dL High 74-106 [facility] Comment on above: Result Comment: MELI GEMENT OF PATIENT CARE PER NURSING PROTOCOL Performed By: #### L 501.080 ####[facility] [address] [place], [address] CBC W/Diff, Automatedon 0 Anisocytosis Ql (Bld) 2+ Normal [facility] Comment on above: Performed By: #### L 100.0100 ####[facility] [address] [place], [address] Basic Metabolic Profile (BMP )on 12-25-2024 BUN/CRE 22.9 RATIO High 10-20 [facility] Comment on above: Performed By: #### L 100.0100, L500.2500 ####[facility] [address] [place], [address] Calcium [Mass/Vol] 8.4 mg/dL Normal 7.6-11.0 [facility] Comment on above: Performed By: #### L 100.0100, L500.2500 ####[facility] [address] [place], [address] Chloride [Moles/Vol] 91 mmol/L Low 98-108 [facility] Comment on above: Performed By: #### L 100.0100, L500.2500 ####[facility] [address] [place], [address] CO2 [Moles/Vol] 31.8 mmol/L Normal 21.0-32.0 [facility] Comment on above: Performed By: #### L 100.0100, L500.2500 ####[facility] [address] [place], [address] Creatinine [Mass/Vol] 0.79 mg/dL Normal 0.70-1.20 [facility] Comment on above: Performed By: #### L 100.0100, L500.2500 ####[facility] [address] [place], [address] ECRCL 151.66 ml/min Normal 50-250 [facility] Comment on above: Performed By: #### L 100.0100, L500.2500 ####[facility] [address] [place], [address] GAP 10 Normal 5-15 [facility] Comment on above: Performed By: #### L 100.0100, L500.2500 ####[facility] [address] [place], [address] GFR/1.73 sq M.predicted among non-blacks MDRD (S/P/Bld) [Vol rate/Area] 103 mL/min/{1.73_m2} Normal >60 [facility] Comment on above: Result Comment: mL/m in/1.73m2 CKD-EPI Creatinine Equation (2020) Performed By: #### L 100.0100, L500.2500 ####[facility] [address] [place], [address] Glucose [Mass/Vol] 170 mg/dL High 70-99 [facility] Comment on above: Performed By: #### L 100.0100, L500.2500 ####[facility] [address] [place], [address] Potassium [Moles/Vol] 4.5 mmol/L Normal 3.3-5.1 [facility] Comment on above: Performed By: #### L 100.0100, L500.2500 ####[facility] [address] [place], [address] Sodium [Moles/Vol] 133 mmol/L Normal 133-145 [facility] Comment on above: Performed By: #### L 100.0100, L500.2500 ####[facility] [address] [place], [address] Urea nitrogen [Mass/Vol] 18 mg/dL Normal 4-19 [facility] Comment on above: Performed By: #### L 100.0100, L500.2500 ####[facility] [address] [place], [address] Bedside Glucoseon 12-25-2024 FINGERSTICK GLU 304 mg/dL High -106 [facility] Comment on above: Result Comment: MELI GEMENT OF PATIENT CARE PER NURSING PROTOCOL Performed By: #### L 501.080 ####[facility] [address] [place], [address] FINGERSTICK GLU 153 mg/dL High -[address] [place] [address] Comment on above: Result Comment: MELI GEMENT OF PATIENT CARE PER NURSING PROTOCOL Performed By: #### L 501.080 ####[facility] [address] [place], [address] FINGERSTICK GLU 209 mg/dL High 74-106 [facility] Comment on above: Result Comment: MELI GEMENT OF PATIENT CARE PER NURSING PROTOCOL Performed By: #### L 501.080 ####[facility] [address] [place], [address] FINGERSTICK GLU 156 mg/dL High -106 [facility] Comment on above: Result Comment: MELI GEMENT OF PATIENT CARE PER NURSING PROTOCOL Performed By: #### L 501.080 ####[facility] [address] [place], [address] Blood manual differential co mment interpretation (narrative result)Ordered By: Marcellus Gunn on 12-25-2024 Manual differential comment Pio (Bld) [Interp] SCANNED [facility] CBC W/Diff, Automatedon 07-0 Anisocytosis Ql (Bld) 1+ Normal [facility] Comment on above: Performed By: #### L 100.0100, L500.2500 ####[facility] [address] [place], [address] MICROCYTIC 1+ Normal [facility] Comment on above: Performed By: #### L 100.0100, L500.2500 ####[facility] [address] [place], [address] SMEAR COMMENT SCANNED Normal [facility] Comment on above: Performed By: #### L 100.0100, L500.2500 ####[facility] [address] [place], [address] Consultation - Intensiviston 12-25-2024 Consultation - Clinical Study Manager Normal [facility] Urine Cultureon 12-25-2024 URC Culture exhibits no growth. Normal [facility] Comment on above: Performed By: #### M 100.2200 ####[facility] [address] [place], [address] Assessment of wrist artery p atency prior to arterial punctureOrdered By: Marcellus Gunn on 12-24-2024 Arterial patency Wrist artery --pre arterial puncture Positive [facility] Basic Metabolic Profile (BMP )on 12-24-2024 BUN/CRE 17.9 RATIO Normal 10-20 [facility] Comment on above: Performed By: #### L 500.2500, L100.4500, L100.0500 ####[facility] [address] [place], [address] Calcium [Mass/Vol] 8.3 mg/dL Normal 7.6-11.0 [facility] Comment on above: Performed By: #### L 500.2500, L100.4500, L100.0500 ####[facility] [address] [place], [address] Chloride [Moles/Vol] 96 mmol/L Low 98-108 [facility] Comment on above: Performed By: #### L 500.2500, L100.4500, L100.0500 ####[facility] [address] [place], [address] CO2 [Moles/Vol] 34.5 mmol/L High 21.0-32.0 [facility] Comment on above: Performed By: #### L 500.2500, L100.4500, L100.0500 ####[facility] [address] [place], [address] Creatinine [Mass/Vol] 0.94 mg/dL Normal 0.70-1.20 [facility] Comment on above: Performed By: #### L 500.2500, L100.4500, L100.0500 ####[facility] [facility] [address] [place], [address] ECRCL 128.47 ml/min Normal 50-250 [facility] Comment on above: Performed By: #### L 500.2500, L100.4500, L100.0500 ####[facility] [address] [place], [address] GAP 7 Normal 5-15 [facility] Comment on above: Performed By: #### L 500.2500, L100.4500, L100.0500 ####[facility] [address] [place], [address] GFR/1.73 sq M.predicted among non-blacks MDRD (S/P/Bld) [Vol rate/Area] 94 mL/min/{1.73_m2} Normal >60 [facility] Comment on above: Result Comment: mL/m in/1.73m2 CKD-EPI Creatinine Equation (2020) Performed By: #### L 500.2500, L100.4500, L100.0500 ####[facility] [address] [place], [address] Glucose [Mass/Vol] 97 mg/dL Normal 70-99 [facility] Comment on above: Performed By: #### L 500.2500, L100.4500, L100.0500 ####[facility] [address] [place], [address] Potassium [Moles/Vol] 4.7 mmol/L Normal 3.3-5.1 [facility] Comment on above: Performed By: #### L 500.2500, L100.4500, L100.0500 ####[facility] [address] [place], [address] Sodium [Moles/Vol] 137 mmol/L Normal 133-145 [facility] Comment on above: Performed By: #### L 500.2500, L100.4500, L100.0500 ####[facility] [address] [place], [address] Urea nitrogen [Mass/Vol] 17 mg/dL Normal 4-19 [facility] Comment on above: Performed By: #### L 500.2500, L100.4500, L100.0500 ####[facility] [address] [place], [address] Bedside Glucoseon 12-24-2024 FINGERSTICK GLU 257 mg/dL High 74-106 [facility] Comment on above: Result Comment: MELI GEMENT OF PATIENT CARE PER NURSING PROTOCOL Performed By: #### L 501.080 ####[facility] [address] [place], [address] FINGERSTICK GLU 119 mg/dL High 74-106 [facility] Comment on above: Result Comment: MELI GEMENT OF PATIENT CARE PER NURSING PROTOCOL Performed By: #### L 501.080 ####[facility] [address] [place], [address] FINGERSTICK GLU 87 mg/dL Normal 74-106 [facility] Comment on above: Result Comment: Dr Shawn [place] FollowedMANAGEMENT OF PATIENT CARE PER NURSING PROTOCOL Performed By: #### L 501.080 ####[facility] [address] [place], [address] FINGERSTICK GLU 93 mg/dL Normal 74-106 [facility] Comment on above: Result Comment: MELI CLINTON OF PATIENT CARE PER NURSING PROTOCOL Performed By: #### L 501.080 ####[facility] [address] [place], [address] Bilirubin Test strip Ql (U)O rdered By: Marcellus Gunn on 12-24-2024 Bilirubin Ql (U) Negative Negative [facility] Bilirubin directOrdered By: Marcellus Gunn on 12-24-2024 Bilirubin.direct [Mass/Vol] 0.26 mg/dL 0.00-0.30 [facility] Bilirubin, totalOrdered By: Marcellus Gunn on 12-24-2024 Bilirubin [Mass/Vol] 0.51 mg/dL 0.00-1.30 [facility] Blood Gases by [facility] 025 KHLOE TEST Positive Normal [facility] Comment on above: Performed By: #### L 9000.0800 ####[facility] [address] [place], [address] Base excess Calc (Bld) [Moles/Vol] 16 mmol/L High -2 to +2 [facility] Comment on above: Performed By: #### L 9000.0800 ####[facility] [address] [place], [address] Blood Gas Type ART Normal [facility] Comment on above: Performed By: #### L 9000.0800 ####[facility] [address] [place], [address] CO2 [Moles/Vol] 43 mmol/L Normal [facility] Comment on above: Performed By: #### L 9000.0800 ####[facility] [address] [place], [address] FI02 40.0 Normal [facility] Comment on above: Performed By: #### L 8999.0800 ####[facility] [address] [place], [address] HCO3 (Bld) [Moles/Vol] 40.8 mmol/L High 22-26 [facility] Comment on above: Performed By: #### L 8999.0800 ####[facility] [address] [place], [address] Mode Not entered Normal [facility] Comment on above: Performed By: #### L 8999.0800 ####[facility] [address] [place], [address] O2 Delivery Dev BiPAP Normal [facility] Comment on above: Performed By: #### L 8999.0800 ####[facility] [address] [place], [address] pCO2 65.7 mmHg High 35-45 [facility] Comment on above: Performed By: #### L 8999.0800 ####[facility] [address] [place], [address] PEEP 10 Normal [facility] Comment on above: Performed By: #### L 8999.0800 ####[facility] [address] [place], [address] pH (Bld) 7.40 [pH] Normal 7.35-7.45 [facility] Comment on above: Performed By: #### L 8999.0800 ####[facility] [address] [place], [address] PO2 103 mmHG High 75-100 [facility] Comment on above: Performed By: #### L 8999.0800 ####[facility] [address] [place], [address] SITE L Radial Normal [facility] Comment on above: Performed By: #### L 8999.799 ####[facility] [address] [place], [address] SO2 98 Normal 95-99 [facility] Comment on above: Performed By: #### L 8999.08 ####[facility] [address] [place], [address] KHLOE TEST Positive Normal [facility] Comment on above: Performed By: #### L 8999.0800 ####[facility] [address] [place], [address] Base excess Calc (Bld) [Moles/Vol] 11 mmol/L High -2 to +2 [facility] Comment on above: Performed By: #### L 8999.08 ####[facility] [address] [place], [address] Blood Gas Type ART Normal [facility] Comment on above: Performed By: #### L 8999.08 ####[facility] [address] [place], [address] CO2 [Moles/Vol] 43 mmol/L Normal [facility] Comment on above: Performed By: #### L 8999.08 ####[facility] [address] [place], [address] FI02 3.0 Normal [facility] Comment on above: Performed By: #### L 8999.08 ####[facility] [address] [place], [address] HCO3 (Bld) [Moles/Vol] 39.5 mmol/L High 22-26 [facility] Comment on above: Performed By: #### L 8999.0800 ####[facility] [address] [place], [address] Mode Not entered Normal [facility] Comment on above: Performed By: #### L 9000.0800 ####[facility] [address] [place], [address] O2 Delivery Dev Cannula Normal [facility] Comment on above: Performed By: #### L 9000.0800 ####[facility] [address] [place], [address] pCO2 102.2 mmHg Invalid Interpretation Code 35-45 [facility] Comment on above: Performed By: #### L 9000.0800 ####[facility] [address] [place], [address] pH (Bld) 7.20 [pH] Low 7.35-7.45 [facility] Comment on above: Performed By: #### L 9000.0800 ####[facility] [address] [place], [address] PO2 45 mmHG Low 75-100 [facility] Comment on above: Performed By: #### L 9000.0800 ####[facility] [address] [place], [address] Read Back By Yes Normal [facility] Comment on above: Performed By: #### L 9000.0800 ####[facility] [address] [place], [address] Results To mary [facility] Comment on above: Performed By: #### L 9000.0800 ####[facility] [address] [place], [address] SITE R Radial Normal [facility] Comment on above: Performed By: #### L 9000.0800 ####[facility] [address] [place], [address] SO2 66 Low 95-99 [facility] Comment on above: Performed By: #### L 9000.0800 ####[facility] [address] [place], [address] Time Given 09:21:14 Normal [facility] Comment on above: Performed By: #### L 9000.0800 ####[facility] [address] [place], [address] Blood base excess determinat ionOrdered By: Marcellus Gunn on 12-24-2024 Base excess Calc (BldV) [Moles/Vol] 16 mmol/L High -2-2 [facility] Blood bicarbonate measuremen tOrdered By: Marcellus Gunn on 12-24-2024 HCO3 (Bld) [Moles/Vol] 40.8 mmol/L High 22-26 [facility] CBC-Complete Blood Cnt No Di ffon 12-24-2024 Erythrocyte distribution width (RBC) [Ratio] 21.0 % High 11.6-14.6 [facility] Comment on above: Performed By: #### L 500.2500, L100.4500, L100.0500 ####[facility] [address] [place], [address] Hematocrit (Bld) [Volume fraction] 33.0 % Low 40-54 [facility] Comment on above: Performed By: #### L 500.2500, L100.4500, L100.0500 ####[facility] [address] [place], [address] Hemoglobin (Bld) [Mass/Vol] 8.4 g/dL Low 13.0-16.5 [facility] Comment on above: Performed By: #### L 500.2500, L100.4500, L100.0500 ####[facility] [address] [place], [address] MCH (RBC) [Entitic mass] 20.0 pg Low 27.0-32.0 [facility] Comment on above: Performed By: #### L 500.2500, L100.4500, L100.0500 ####[facility] [address] [place], [address] MCHC (RBC) [Mass/Vol] 25.5 g/dL Low 32-36 [facility] Comment on above: Performed By: #### L 500.2500, L100.4500, L100.0500 ####[facility] [address] [place], [address] MCV (RBC) [Entitic vol] 78.8 fL Low 80-94 [facility] Comment on above: Performed By: #### L 500.2500, L100.4500, L100.0500 ####[facility] [address] [place], [address] Platelet mean volume (Bld) [Entitic vol] 9.4 fL Normal 6.2-12.0 [facility] Comment on above: Performed By: #### L 500.2500, L100.4500, L100.0500 ####[facility] [address] [place], [address] Platelets (Bld) [#/Vol] 215 10*3/uL Normal 150-450 [facility] Comment on above: Performed By: #### L 500.2500, L100.4500, L100.0500 ####[facility] [address] [place], [address] RBC (Bld) [#/Vol] 4.19 10*6/uL Low 4.6-6.2 [facility] Comment on above: Performed By: #### L 500.2500, L100.4500, L100.0500 ####[facility] [address] [place], [address] RDW SD 58.7 fl High 35.1-43.9 [facility] Comment on above: Performed By: #### L 500.2500, L100.4500, L100.0500 ####[facility] [address] [place], [address] WBC (Bld) [#/Vol] 10.4 10*3/uL Normal 4.4-11.0 [facility] Comment on above: Performed By: #### L 500.2500, L100.4500, L100.0500 ####[facility] [address] [place], [address] Chest 1 View (Portable)on Chest 1 View (Portable) Normal [facility] Differential Commenton 12-24 SMEAR COMMENT Normal [facility] Comment on above: Result Comment: ANIS OCYTSIS 2+POLYCHROMASIA RARE Performed By: #### L 500.2500, L100.4500, L100.0500 ####[facility] [address] [place], [address] Hyaline casts LM.LPF (Urine sed) [#/Area]Ordered By: Marcellus Gunn on 12-24-2024 Hyaline casts (Urine sed) [#/Area] 5 /[LPF] 0-5 [facility] Ketones Test strip Ql (U)Ord ered By: Marcellus Gunn on 12-24-2024 Ketones Ql (U) Negative Negative [facility] Liver Profileon 12-24-2024 Albumin [Mass/Vol] 3.3 g/dL Low 3.5-5.0 [facility] Comment on above: Performed By: #### L 500.3400, L501.5200 ####[facility] [address] [place], [address] ALK PHOS 225 U/L High 40-129 [facility] Comment on above: Performed By: #### L 500.3400, L501.5200 ####[facility] [address] [place], [address] ALT [Catalytic activity/Vol] 19 U/L Normal <=46 [facility] Comment on above: Performed By: #### L 500.3400, L501.5200 ####[facility] [address] [place], [address] AST [Catalytic activity/Vol] 32 U/L Normal <=37 [facility] Comment on above: Performed By: #### L 500.3400, L501.5200 ####[facility] [address] [place], [address] Bilirubin [Mass/Vol] 0.51 mg/dL Normal 0.00-1.30 [facility] Comment on above: Performed By: #### L 500.3400, L501.5200 ####[facility] [address] [place], [address] Bilirubin.direct [Mass/Vol] 0.26 mg/dL Normal 0.00-0.30 [facility] Comment on above: Performed By: #### L 500.3400, L501.5200 ####[facility] [address] [place], [address] Globulin (S) [Mass/Vol] 3.8 g/dL Normal 2.2-4.2 [facility] Comment on above: Performed By: #### L 500.3400, L501.5200 ####[facility] [address] [place], [address] T PROT 7.1 g/dL Normal 5.9-8.4 [facility] Comment on above: Performed By: #### L 500.3400, L501.5200 ####[facility] [address] [place], [address] Magnesiumon 12-24-2024 Magnesium [Mass/Vol] 2.1 mg/dL Normal 1.5-2.2 [facility] Comment on above: Performed By: #### L 500.3400, L501.5200 ####[facility] [address] [place], [address] Magnesium measurement (mass/ volume)Ordered By: Marcellus Gunn on 12-24-2024 Magnesium (Unsp spec) [Mass/Vol] 2.1 mg/dL 1.5-2.2 [facility] Measurement, pHOrdered By: Angelito Gunn on 12-24-2024 pH (Unsp spec) 7.40 [pH] 7.35-7.45 [facility] Mucus LM Ql (Urine sed)Order ed By: Marcellus Gunn on 12-24-2024 Mucus Ql (Urine sed) 0 SEEN /hpf [facility] Nitrite Test strip Ql (U)Ord ered By: Marcellus Gunn on 12-24-2024 Nitrite Ql (U) Negative Negative [facility] No Panel InformationOrdered By: Marcellus Gunn on 12-24-2024 ART [facility] L Radial [facility] Not entered [facility] BiPAP [facility] 10 [facility] 09:21:14 [facility] mary [facility] Yes [facility] 32 U/L <38 [facility] Protein Test strip Ql (U)Ord ered By: Marcellus Gunn on 12-24-2024 Protein Ql (U) 100 mg/dl High Negative [facility] Serum globulin measurementOr dered By: Marcellus Gunn on 12-24-2024 Globulin (S) [Mass/Vol] 3.8 g/dL 2.2-4.2 [facility] Serum or plasma alanine ball otransferase (ALT) measurementOrdered By: Marcellus Gunn on 12-24-2024 ALT [Catalytic activity/Vol] 19 U/L <47 [facility] Serum or plasma albumin davidson urement (mass/volume)Ordered By: Marcellus Gunn on 12-24-2024 Albumin [Mass/Vol] 3.3 g/dL Low 3.5-5.0 [facility] Serum or plasma alkaline sabas sphatase measurementOrdered By: Marcellus Gunn on 12-24-2024 ALP [Catalytic activity/Vol] 225 U/L High 40-129 [facility] Squamous epithelial cells de tection in urine sediment by light microscopyOrdered By: Marcellus Gunn on 12-24-2024 Epithelial cells.squamous LM Ql (Urine sed) 0 SEEN /hpf 0-5 [facility] Total carbon dioxide measure mentOrdered By: Marcellus Gunn on 12-24-2024 CO2 [Moles/Vol] 43 mmol/L [facility] Total proteinOrdered By: Leah Gunn on 12-24-2024 Protein [Mass/Vol] 7.1 g/dL 5.9-8.4 [facility] Urinalysis, Completeon 12-24 CAST,HYALINE 5-10 SEEN Normal 0-5 [facility] Comment on above: Order Comment: DICKSON TER SPECIMEN Performed By: #### L 400.0001 ####[facility] [address] [place], [address] WBC 0-5 SEEN Normal 0-5 [facility] Comment on above: Order Comment: DICKSON TER SPECIMEN Performed By: #### L 400.0001 ####[facility] [address] [place], [address] BACTERIA 0 SEEN Normal None Seen [facility] Comment on above: Order Comment: DICKSON TER SPECIMEN Performed By: #### L 400.0001 ####[facility] [address] [place], [address] EPI,SQUAMOUS 0 SEEN Normal 0-5 [facility] Comment on above: Order Comment: DICKSON TER SPECIMEN Performed By: #### L 400.0001 ####[facility] [address] [place], [address] Mucus Ql (Urine sed) 0 SEEN Normal [facility] Comment on above: Order Comment: DICKSON TER SPECIMEN Performed By: #### L 400.0001 ####[facility] [address] [place], [address] RBC 0 SEEN Normal 0-5 [facility] Comment on above: Order Comment: DICKOSN TER SPECIMEN Performed By: #### L 400.0001 ####[facility] [address] [place], [address] Urine clarityOrdered By: Leah Gunn on 12-24-2024 Clarity (U) Clear Clear [facility] Urine color determinationOrd ered By: Marcellus Gunn on 12-24-2024 Color (U) Yellow Yellow [facility] Urine cultureOrdered By: Leah Gunn on 12-24-2024 Bacteria identified Cx Nom (U) Culture exhibits no growth. [facility] Urine glucose detectionOrder ed By: Marcellus Gunn on 12-24-2024 Glucose Ql (U) Normal mg/dl Normal [facility] Urine leukocyte esterase det ection by dipstickOrdered By: Marcellus Gunn on 12-24-2024 Leukocyte esterase Test strip Ql (U) Negative Negative [facility] Urine pHOrdered By: Marcellus Gunn on 12-24-2024 pH (U) 6.0 [pH] 5.0 - 8.0 [facility] Urine sediment bacteria coun t by microscopy (number/high power field)Ordered By: Marcellus Gunn on 12-24-2024 Bacteria LM.HPF (Urine sed) [#/Area] 0 /[HPF] None Seen [facility] Urine specific gravity measu rementOrdered By: Marcellus Gunn on 12-24-2024 Specific gravity (U) [Rel density] 1.025 1.002-1.030 [facility] Urine urobilinogen measureme ntOrdered By: Marcellus Gunn on 12-24-2024 Urobilinogen Ql (U) 1 mg/dl High Normal [facility] White blood cell countOrdere d By: Marcellus Gunn on 12-24-2024 White blood cell count 0-5 SEEN /hpf 0-5 [facility] 12 Lead EKGon 12-23-2024 12 Lead EKG Normal [facility] Absolute lymphocyte countOrd ered By: Alex Mccray on 12-23-2024 Lymphocytes Auto (Unsp spec) [#/Vol] 1.41 10*3/uL 0.83-4.51 [facility] Absolute neutrophil countOrd ered By: Alex Mccray on 12-23-2024 Neutrophils (Bld) [#/Vol] 8.1 10*3/uL High 2.0-7.7 [facility] Anion gap in Serum or Plasma Ordered By: Alex Mccray on 12-23-2024 Anion gap [Moles/Vol] 10 mmol/L 5-15 [facility] Automated lymphocyte count a s percentage of total leukocytesOrdered By: Alex Mccray on 12-23-2024 Lymphocytes/100 WBC Auto (Unsp spec) 13.4 % Low 19-41 [facility] BUN/creatinine ratioOrdered By: Alex Mccray on 12-23-2024 Urea nitrogen/Creatinine [Mass ratio] 20.9 mg/mg High 10-20 [facility] Basic Metabolic Profile (BMP )on 12-23-2024 BUN/CRE 20.9 RATIO High 10-20 [facility] Comment on above: Performed By: #### L 500.2500, L503.6005, L100.0100, L501.4021, L503.7505 ####[facility] [address] [place], [address] Calcium [Mass/Vol] 8.5 mg/dL Normal 7.6-11.0 [facility] Comment on above: Performed By: #### L 500.2500, L503.6005, L100.0100, L501.4021, L503.7505 ####[facility] [address] [place], [address] Chloride [Moles/Vol] 94 mmol/L Low 98-108 [facility] Comment on above: Performed By: #### L 500.2500, L503.6005, L100.0100, L501.4021, L503.7505 ####[facility] [address] [place], [address] CO2 [Moles/Vol] 30.1 mmol/L Normal 21.0-32.0 [facility] Comment on above: Performed By: #### L 500.2500, L503.6005, L100.0100, L501.4021, L503.7505 ####[facility] [address] [place], [address] Creatinine [Mass/Vol] 0.82 mg/dL Normal 0.70-1.20 [facility] Comment on above: Performed By: #### L 500.2500, L503.6005, L100.0100, L501.4021, L503.7505 ####[facility] [address] [place], [address] ECRCL 148.25 ml/min Normal 50-250 [facility] Comment on above: Performed By: #### L 500.2500, L503.6005, L100.0100, L501.4021, L503.7505 ####[facility] [address] [place], [address] GAP 10 Normal 5-15 [facility] Comment on above: Performed By: #### L 500.2500, L503.6005, L100.0100, L501.4021, L503.7505 ####[facility] [address] [place], [address] GFR/1.73 sq M.predicted among non-blacks MDRD (S/P/Bld) [Vol rate/Area] 101 mL/min/{1.73_m2} Normal >60 [facility] Comment on above: Result Comment: mL/m in/1.73m2 CKD-EPI Creatinine Equation (2020) Performed By: #### L 500.2500, L503.6005, L100.0100, L501.4021, L503.7505 ####[facility] [address] [place], [address] Glucose [Mass/Vol] 76 mg/dL Normal 70-99 [facility] Comment on above: Performed By: #### L 500.2500, L503.6005, L100.0100, L501.4021, L503.7505 ####[facility] [address] [place], [address] Potassium [Moles/Vol] 5.1 mmol/L Normal 3.3-5.1 [facility] Comment on above: Result Comment: Hemo lysis present, Results??could be affected.?? Performed By: #### L 500.2500, L503.6005, L100.0100, L501.4021, L503.7505 ####[facility] [address] [place], [address] Sodium [Moles/Vol] 134 mmol/L Normal 133-145 [facility] Comment on above: Performed By: #### L 500.2500, L503.6005, L100.0100, L501.4021, L503.7505 ####[facility] [address] [place], [address] Urea nitrogen [Mass/Vol] 17 mg/dL Normal 4-19 [facility] Comment on above: Performed By: #### L 500.2500, L503.6005, L100.0100, L501.4021, L503.7505 ####[facility] [address] [place], [address] Basophil percentageOrdered B y: Alex Mccray on 12-23-2024 Basophils/100 WBC (Bld) 0.4 % 0-1 [facility] Bedside Glucoseon 12-23-2024 FINGERSTICK GLU 78 mg/dL Normal 74-106 [facility] Comment on above: Result Comment: MELI GEMENT OF PATIENT CARE PER NURSING PROTOCOL Performed By: #### L 501.080 ####[facility] [address] [place], [address] Bilirubin Test strip Ql (U)O rdered By: Alex Mccray on 12-23-2024 Bilirubin Ql (U) Negative Negative [facility] Blood manual differential co mment interpretation (narrative result)Ordered By: Alex Mccray on 12-23-2024 Manual differential comment Pio (Bld) [Interp] SCANNED [facility] Blood polychromasia detectio n by light microscopyOrdered By: Alex Mccray on 12-23-2024 Polychromasia LM Ql (Bld) 1+ [facility] CBC W/Diff, Automatedon Anisocytosis Ql (Bld) 2+ Normal [facility] Comment on above: Performed By: #### L 500.2500, L503.6005, L100.0100, L501.4021, L503.7505 ####[facility] [address] [place], [address] POLYCHROMASIA 1+ Normal [facility] Comment on above: Performed By: #### L 500.2500, L503.6005, L100.0100, L501.4021, L503.7505 ####[facility] [address] [place], [address] PLT EST ADEQUATE Normal ADEQ [facility] Comment on above: Performed By: #### L 500.2500, L503.6005, L100.0100, L501.4021, L503.7505 ####[facility] [address] [place], [address] SMEAR COMMENT SCANNED Normal [facility] Comment on above: Performed By: #### L 500.2500, L503.6005, L100.0100, L501.4021, L503.7505 ####[facility] [address] [place], [address] Platelet mean volume (Bld) [Entitic vol] 10.1 fL Normal 6.2-12.0 [facility] Comment on above: Performed By: #### L 500.2500, L503.6005, L100.0100, L501.4021, L503.7505 ####[facility] [address] [place], [address] Platelets (Bld) [#/Vol] 164 10*3/uL Normal 150-450 [facility] Comment on above: Performed By: #### L 500.2500, L503.6005, L100.0100, L501.4021, L503.7505 ####[facility] [address] [place], [address] Carbon dioxide, total [Moles /volume] in Central venous bloodOrdered By: Alex Mccray on 12-23-2024 CO2 [Moles/Vol] 30.1 mmol/L 21.0-32.0 [facility] Chest PA and Lateralon 12-23 Chest PA and Lateral Normal [facility] Chloride assayOrdered By: Dhruv Mccray on 12-23-2024 Chloride [Moles/Vol] 94 mmol/L Low 98-108 [facility] Emergency Department Summary on 12-23-2024 Emergency Department Summary Normal [facility] Eosinophil percentageOrdered By: Alex Mccray on 12-23-2024 Eosinophils/100 WBC (Bld) 0.9 % 0-5 [facility] Erythrocyte distribution wid th ratioOrdered By: Alex Mccray on 12-23-2024 Erythrocyte distribution width (RBC) [Ratio] 21.3 % High 11.6-14.6 [facility] Erythrocyte distribution wid th standard deviationOrdered By: Alex Mccray on 12-23-2024 Erythrocyte distribution width (RBC) [Ratio] 55.2 fl High 35.1-43.9 [facility] Glomerular filtration rate ( GFR) estimation/1.73 sq m using serum, plasma, or whole bOrdered By: Alex Mccray on 12-23-2024 GFR/1.73 sq M.predicted among non-blacks MDRD (S/P/Bld) [Vol rate/Area] 101 mL/min/{1.73_m2} >60 [facility] Comment on above: mL/min/1.73m2 CKD-EP I Creatinine Equation (2020) H AND P Exam - Hospitaliston 12-23-2024 H&P Exam - Hospitalist Normal [facility] Hematocrit Auto (Bld) [Volum e fraction]Ordered By: Alex Mccray on 12-23-2024 Hematocrit (Bld) [Volume fraction] 33.5 % Low 40-54 [facility] Hemoglobin measurementOrdere d By: Alexcarmen Mccray on 12-23-2024 Hemoglobin (Bld) [Mass/Vol] 9.1 g/dL Low 13.0-16.5 [facility] Immature granulocytes/100 WB C Auto (Bld)Ordered By: Alex Mccray on 12-23-2024 Immature granulocytes/100 WBC (Bld) 0.400 % 0.0-0.9 [facility] Comment on above: IG% - Immature Granu locytes (promyelocytes, myelocytes and metamyelocytes) > 1% indicates that a LEFT SHIFT is Present. Ketones Test strip Ql (U)Ord ered By: Alex Mccray on 12-23-2024 Ketones Ql (U) Negative Negative [facility] L499.0042on 12-23-2024 Trop T High Sen 22 ng/L Normal <=22 [facility] Comment on above: Performed By: #### L 499.0042 ####[facility] [address] [place], [address] L499.0043on 12-23-2024 Trop T High Sen 22 ng/L Normal <=22 [facility] Comment on above: Performed By: #### L 499.0043 ####[facility] [address] [place], [address] L501.4021on 12-23-2024 Trop T High Sen 24 ng/L High <=22 [facility] Comment on above: Result Comment: Hemo lysis present, Results??could be affected.?? Performed By: #### L 500.2500, L503.6005, L100.0100, L501.4021, L503.7505 ####[facility] [address] [place], [address] L503.7505on 12-23-2024 Natriuretic peptide B (Bld) [Mass/Vol] 318 pg/mL Normal <=900 [facility] Comment on above: Result Comment: Hear t Failure Unlikely: < 300 pg/mLHeart Failure Likely< 50 Years: > 450 pg/mL50-75 Years: > 900 pg/mL>75 Years: > 1800 pg/mL Performed By: #### L 500.2500, L503.6005, L100.0100, L501.4021, L503.7505 ####[facility] [address] [place], [place], [id number] Laboratory - Hematology and Cell countsOrdered By: Alex Mccray on 12-23-2024 Anisocytosis Ql (Bld) 2+ [facility] Lactic Acidon 12-23-2024 Lactate [Moles/Vol] mmol/L Normal 0.0-2.0 [facility] Comment on above: Performed By: #### L 503.6005 ####[facility] [address] [place], [place], [id number] Lactate [Moles/Vol] 2.0 mmol/L Normal 0.0-2.0 [facility] Comment on above: Order Comment: Y Result Comment: Crit ical Result(s) Called at:12-23-24 14:27 TO CRISTIAN by:AUSTIN DEE Results read back by same. Performed By: #### L 500.2500, L503.6005, L100.0100, L501.4021, L503.7505 ####[facility] [address] [place], [place], [address] Lactic acid measurementOrder ed By: Alex Mccray on 12-23-2024 Lactate [Moles/Vol] mmol/L 0.0-2.0 [facility] MCV (mean corpuscular volume ) determinationOrdered By: Alex Mccray on 12-23-2024 MCV (RBC) [Entitic vol] 74.4 fL Low 80-94 [facility] Mean corpuscular hemoglobin (MCH) determinationOrdered By: Alex Mccray on 12-23-2024 MCH (RBC) [Entitic mass] 20.2 pg Low 27.0-32.0 [facility] Mean corpuscular hemoglobin concentration (MCHC) determinationOrdered By: Alex Mccray on 12-23-2024 MCHC (RBC) [Mass/Vol] 27.2 g/dL Low 32-36 [facility] Mean platelet volume determi nationOrdered By: Alex Mccray on 12-23-2024 Platelet mean volume (Bld) [Entitic vol] 10.1 fL 6.2-12.0 [facility] Monocyte percentageOrdered B y: Alex Mccray on 12-23-2024 Monocytes/100 WBC (Bld) 7.7 % 0-10 [facility] Natriuretic peptide.B prohor amanda N-Terminal [Mass/volume] in Serum or PlasmaOrdered By: Alex Mccray on 12-23-2024 Natriuretic peptide.B prohormone N-Terminal [Mass/Vol] 318 pg/mL <900 [facility] Comment on above: Heart Failure Unlike ly: < 300 pg/mLHeart Failure Likely< 50 Years: > 450 pg/mL50-75 Years: > 900 pg/mL>75 Years: > 1800 pg/mL Neutrophil percentageOrdered By: Alex Mccray on 12-23-2024 Neutrophils/100 WBC (Bld) 77.2 % High 47-70 [facility] Nitrite Test strip Ql (U)Ord ered By: Alex Mccray on 12-23-2024 Nitrite Ql (U) Negative Negative [facility] Nucleated red blood cell per centageOrdered By: Alex Mccray on 12-23-2024 Nucleated RBC/100 WBC (Bld) [Ratio] 0 % 0-5 [facility] Platelet countOrdered By: Dhruv Mccray on 12-23-2024 Platelets (Bld) [#/Vol] 164 10*3/uL 150-450 [facility] Platelet estimateOrdered By: Alex Mccray on 12-23-2024 Platelets LM Ql (Bld) ADEQUATE ADEQ [facility] Potassium measurement (mass/ volume)Ordered By: Alex Mccray on 12-23-2024 Potassium (Unsp spec) [Mass/Vol] 5.1 mmol/L 3.3-5.1 [facility] Comment on above: Hemolysis present, R esults could be affected. Protein Test strip Ql (U)Ord ered By: Alex Mccray on 12-23-2024 Protein Ql (U) 15 mg/dl High Negative [facility] RBC Auto (Bld) [#/Vol]Ordere d By: Alex Mccray on 12-23-2024 RBC (Bld) [#/Vol] 4.50 10*6/uL Low 4.6-6.2 [facility] Serum creatinine measurement (mass/volume)Ordered By: Alex Mccray on 12-23-2024 Creatinine [Mass/Vol] 0.82 mg/dL 0.70-1.20 [facility] Serum glucose measurement (m ass/volume)Ordered By: Alex Mccray on 12-23-2024 Glucose [Mass/Vol] 76 mg/dL 70-99 [facility] Serum or plasma calcium davidson urement (mass/volume)Ordered By: Alex Mccray on 12-23-2024 Calcium [Mass/Vol] 8.5 mg/dL 7.6-11.0 [facility] Serum or plasma urea nitroge n measurement (mass/volume)Ordered By: Alex Mccray on 12-23-2024 Urea nitrogen [Mass/Vol] 17 mg/dL 4-19 [facility] Sodium levelOrdered By: Alex Mccray on 12-23-2024 Sodium [Moles/Vol] 134 mmol/L 133-145 [facility] Troponin T.cardiac [Mass/vol ume] in Serum or Plasma by High sensitivity methodOrdered By: Alex Mccray on 12-23-2024 Troponin T.cardiac High sensitivity method [Mass/Vol] 22 ng/L <22 [facility] Troponin T.cardiac High sensitivity method [Mass/Vol] 22 ng/L <22 [facility] Troponin T.cardiac High sensitivity method [Mass/Vol] 24 ng/L High <22 [facility] Comment on above: Delta: 22 on 5-1223Hemolysis present, Results could be affected. Urinalysis, Routine (Dipstic k)on 12-23-2024 BILIRUBIN URINE Negative Normal Negative [facility] Comment on above: Order Comment: CLEAN CATCH Performed By: #### L 400.2010 ####[facility] [address] [place], [address] Clarity (U) Sl. Cloudy Normal Clear [facility] Comment on above: Order Comment: CLEAN CATCH Performed By: #### L 400.2010 ####[facility] [address] [place], [address] Color (U) Straw Normal Yellow [facility] Comment on above: Order Comment: CLEAN CATCH Performed By: #### L 400.2010 ####[facility] [address] [place], [address] GLUCOSE, UR Normal Normal Normal [facility] Comment on above: Order Comment: CLEAN CATCH Performed By: #### L 400.2010 ####[facility] [address] [place], [address] KETONE UR Negative Normal Negative [facility] Comment on above: Order Comment: CLEAN CATCH Performed By: #### L 400.2010 ####[facility] [address] [place], [address] LEUK ESTERASE 25 /ul Abnormal Negative [facility] Comment on above: Order Comment: CLEAN CATCH Performed By: #### L 400.2010 ####[facility] [address] [place], [address] Nitrite Ql (U) Negative Normal Negative [facility] Comment on above: Order Comment: CLEAN CATCH Performed By: #### L 400.2010 ####[facility] [address] [place], [address] OCCULT BLOOD-UR Negative Normal Negative [facility] Comment on above: Order Comment: CLEAN CATCH Performed By: #### L 400.2010 ####[facility] [address] [place], [address] pH UR 6.5 Normal 5.0 - 8.0 [facility] Comment on above: Order Comment: CLEAN CATCH Performed By: #### L 400.2010 ####[facility] [address] [place], [address] PROT DIPSTX 15 mg/dl Abnormal Negative [facility] Comment on above: Order Comment: CLEAN CATCH Performed By: #### L 400.2010 ####[facility] [address] [place], [place], [address] SP.GR. DIPSTX 1.010 Normal 1.002-1.030 [facility] Comment on above: Order Comment: CLEAN CATCH Performed By: #### L 400.2010 ####[facility] [address] [place], [place], [id number] UROBILI Normal Normal Normal [facility] Comment on above: Order Comment: CLEAN CATCH Performed By: #### L 400.2010 ####[facility] [address] [place], [address] Urine clarityOrdered By: Madai Mccray on 12-23-2024 Clarity (U) Sl. Cloudy Clear [facility] Urine color determinationOrd ered By: Alex Mccray on 12-23-2024 Color (U) Straw Yellow [facility] Urine glucose detectionOrder ed By: Alex Mccray on 12-23-2024 Glucose Ql (U) Normal mg/dl Normal [facility] Urine leukocyte esterase det ection by dipstickOrdered By: Alex Mccray on 12-23-2024 Leukocyte esterase Test strip Ql (U) 25 /ul High Negative [facility] Urine pHOrdered By: Alex liu on 12-23-2024 pH (U) 6.5 [pH] 5.0 - 8.0 [facility] Urine specific gravity measu rementOrdered By: Alex Mccray on 12-23-2024 Specific gravity (U) [Rel density] 1.010 1.002-1.030 [facility] Urine urobilinogen measureme ntOrdered By: Alex Mccray on 12-23-2024 Urobilinogen Ql (U) Normal mg/dl Normal [facility] White blood cell (WBC) count Ordered By: Alex Mccray on 12-23-2024 WBC (Bld) [#/Vol] 10.5 10*3/uL 4.4-11.0 [facility] Wound Ctr History AND Physic richard 12-22-2024 Wound Ctr History & Physical Normal [facility] Culture, Blood (WB)on 2024 CUB Blood cultures x2, f rom two different sites No growth in 5 days. [facility] Comment on above: Performed By: #### M 200.1000 ####[facility] [address] [place], [address] Wound Cultureon 12-19-2024 WC Normal [facility] Comment on above: Performed By: #### M 100.2000, M8200.1075, M100.3000 ####[facility] [address] [place], [address] Bedside Glucoseon 12-18-2024 FINGERSTICK GLU 108 mg/dL High [address] [facility] Comment on above: Result Comment: MELI GEMENT OF PATIENT CARE PER NURSING PROTOCOL Performed By: #### L 501.080 ####[facility] [address] [place], [address] Discharge Instructionon 11-22 Discharge Instruction Normal [facility] deOrdered By: Marcellus Gunn on 12-18-2024 Glucose [Mass/Vol] 108 mg/dL High 74-106 [facility] Comment on above: MANAGEMENT OF PATIEN T CARE PER NURSING PROTOCOL Bedside Glucoseon 12-17-2024 FINGERSTICK GLU 99 mg/dL Normal 74-106 [facility] Comment on above: Result Comment: MELI GEMENT OF PATIENT CARE PER NURSING PROTOCOL Performed By: #### L 501.080 ####[facility] [address] [place], [address] FINGERSTICK GLU 119 mg/dL High 74-106 [facility] Comment on above: Result Comment: MELI GEMENT OF PATIENT CARE PER NURSING PROTOCOL Performed By: #### L 501.080 ####[facility] [address] [place], [address] FINGERSTICK GLU 125 mg/dL High 74-106 [facility] Comment on above: Result Comment: MELI GEMENT OF PATIENT CARE PER NURSING PROTOCOL Performed By: #### L 501.080 ####[facility] [address] [place], [address] FINGERSTICK GLU 88 mg/dL Normal 74-106 [facility] Comment on above: Result Comment: MELI GEMENT OF PATIENT CARE PER NURSING PROTOCOL Performed By: #### L 501.080 ####[facility] [address] [place], [address] FINGERSTICK GLU 77 mg/dL Normal 74-106 [facility] Comment on above: Result Comment: MELI GEMENT OF PATIENT CARE PER NURSING PROTOCOL Performed By: #### L 501.080 ####[facility] [address] [place], [address] M8200.1075on 12-17-2024 [id number] Normal Reference Ran ge = Negative MRSA/SAUR WOUND PCR GeneXpert Instrument, PCR method MRSA/SAUR WOUND PCR MRSA PCR MRSA NEGATIVE STAPH. AUREUS PCR STAPH. AUREUS NEGATIVE Normal [facility] Comment on above: Performed By: #### M 100.2000, M8200.1075, M100.3000 ####[facility] [address] [place], [address] Absolute lymphocyte countOrd ered By: Calista on 12-16-2024 Lymphocytes Auto (Unsp spec) [#/Vol] 1.25 10*3/uL 0.83-4.51 [facility] Absolute neutrophil countOrd ered By: Calista on 12-16-2024 Neutrophils (Bld) [#/Vol] 8.6 10*3/uL High 2.0-7.7 [facility] Anion gap in Serum or Plasma Ordered By: Calista on 12-16-2024 Anion gap [Moles/Vol] 11 mmol/L 5-15 [facility] Automated lymphocyte count a s percentage of total leukocytesOrdered By: White on 12-16-2024 Lymphocytes/100 WBC Auto (Unsp spec) 11.6 % Low 19-41 [facility] BUN/creatinine ratioOrdered By: Arlette White on 12-16-2024 Urea nitrogen/Creatinine [Mass ratio] 21.5 mg/mg High 10-20 [facility] Basophil percentageOrdered B y: Arlette White on 12-16-2024 Basophils/100 WBC (Bld) 0.4 % 0-1 [facility] Bedside Glucoseon 12-16-2024 FINGERSTICK GLU 94 mg/dL Normal 74-106 [facility] Comment on above: Result Comment: MELI GEMENT OF PATIENT CARE PER NURSING PROTOCOL Performed By: #### L 501.080 ####[facility] [address] [facility] [address] FINGERSTICK GLU 110 mg/dL High 74-106 [facility] Comment on above: Result Comment: MELI GEMENT OF PATIENT CARE PER NURSING PROTOCOL Performed By: #### L 501.080 ####[facility] [address] [facility] [address] FINGERSTICK GLU 101 mg/dL Normal 74-106 [facility] Comment on above: Result Comment: MELI GEMENT OF PATIENT CARE PER NURSING PROTOCOL Performed By: #### L 501.080 ####[facility] [address] [facility] [address] FINGERSTICK GLU 126 mg/dL High 74-106 [facility] Comment on above: Result Comment: MELI GEMENT OF PATIENT CARE PER NURSING PROTOCOL Performed By: #### L 501.080 ####[facility] [address] [facility] [address] FINGERSTICK GLU 112 mg/dL High 74-106 [facility] Comment on above: Result Comment: MELI GEMENT OF PATIENT CARE PER NURSING PROTOCOL Performed By: #### L 501.080 ####[facility] [address] [facility] [address] FINGERSTICK GLU 54 mg/dL Low 74-106 [facility] Comment on above: Result Comment: MELI GEMENT OF PATIENT CARE PER NURSING PROTOCOL Performed By: #### L 501.080 ####[facility] [address] [place], [address] FINGERSTICK GLU 39 mg/dL Invalid Interpretation Code 74-106 [facility] Comment on above: Result Comment: MELI GEMENT OF PATIENT CARE PER NURSING PROTOCOL Performed By: #### L 501.080 ####[facility] [address] [place], [address] FINGERSTICK GLU 100 mg/dL Normal 74-106 [facility] Comment on above: Result Comment: MELI GEMENT OF PATIENT CARE PER NURSING PROTOCOL Performed By: #### L 501.080 ####[facility] [address] [place], [place], [id number] Bilirubin, totalOrdered By: Arlette Grigsby on 12-16-2024 Bilirubin [Mass/Vol] 0.49 mg/dL 0.00-1.30 [facility] Comment on above: Performed By: #### L 500.4050, L501.9985, L503.6550, L500.4100, L501.9520, L503.6030, L100.0100 ####[facility] [address] [place], [place], [id number] CBC W/Diff, AutomatedOrdered By: Arlette Grigsby on 12-16-2024 Anisocytosis Ql (Bld) 2+ Normal [facility] Comment on above: Performed By: #### L 500.4050, L501.9985, L503.6550, L500.4100, L501.9520, L503.6030, L100.0100 ####[facility] [address] [place], [address] Calculated very low density lipoprotein (VLDL) cholesterol measurementOrdered By: Arlette Grigsby on 12-16-2024 Calculated very low density lipoprotein (VLDL) cholesterol measurement 17 mg/dL 5-40 [facility] Carbon dioxide, total [Moles /volume] in Central venous bloodOrdered By: Arlette Grigsby on 12-16-2024 CO2 [Moles/Vol] 30.2 mmol/L 21.0-32.0 [facility] Comment on above: Performed By: #### L 500.4050, L501.9985, L503.6550, L500.4100, L501.9520, L503.6030, L100.0100 ####[facility] [address] [place], [address] Chloride assayOrdered By: Kenisha Grigsby on 12-16-2024 Chloride [Moles/Vol] 96 mmol/L Low 98-108 [facility] Comment on above: Performed By: #### L 500.4050, L501.9985, L503.6550, L500.4100, L501.9520, L503.6030, L100.0100 ####[facility] [address] [place], [address] Comprehensive Metabolic Prof ilon 12-16-2024 ALK PHOS 251 U/L High 40-129 [facility] Comment on above: Performed By: #### L 500.4050, L501.9985, L503.6550, L500.4100, L501.9520, L503.6030, L100.0100 ####[facility] [address] [place], [address] BUN/CRE 21.5 RATIO High 10-20 [facility] Comment on above: Performed By: #### L 500.4050, L501.9985, L503.6550, L500.4100, L501.9520, L503.6030, L100.0100 ####[facility] [address] [place], [address] ECRCL 181.02 ml/min Normal 50-250 [facility] Comment on above: Performed By: #### L 500.4050, L501.9985, L503.6550, L500.4100, L501.9520, L503.6030, L100.0100 ####[facility] [address] [place], [address] GAP 11 Normal 5-15 [facility] Comment on above: Performed By: #### L 500.4050, L501.9985, L503.6550, L500.4100, L501.9520, L503.6030, L100.0100 ####[facility] [address] [place], [place], [phone] Potassium [Moles/Vol] 4.0 mmol/L Normal 3.3-5.1 [facility] Comment on above: Performed By: #### L 500.4050, L501.9985, L503.6550, L500.4100, L501.9520, L503.6030, L100.0100 ####[facility] [address] [place], [place], [phone] T PROT 6.9 g/dL Normal 5.9-8.4 [facility] Comment on above: Performed By: #### L 500.4050, L501.9985, L503.6550, L500.4100, L501.9520, L503.6030, L100.0100 ####[facility] [address] [place], [place], [phone] Comprehensive Metabolic Prof ilOrdered By: Arlette Grigsby on 12-16-2024 AST [Catalytic activity/Vol] 24 U/L Normal <=37 [facility] Comment on above: Performed By: #### L 500.4050, L501.9985, L503.6550, L500.4100, L501.9520, L503.6030, L100.0100 ####[facility] [address] [place], [place], [phone] Echocardiogram study reportO rdered By: Jean Brown on 12-16-2024 Study report [facility] [address] [place] [address] Echo Complete W/ Contrast 12/16/24 1122 MR#: [id number] Acct: [id number] Name: DERRELL HOYT Rep #:[id number] : 1965 59 From: Jean Brown MD Attending Dr: Dr. Marcellus Gunn MD Status: ADM IN Ordering Dr: Arlette Grigsby MD Date: 12/15/24 Location: [facility] Sex: M C Admitted: 12/15/24 Reason For Study Reason For Study: CHF Procedure This was a 2D Doppler, Color Flow transthoracic echocardiogram. The study was technically difficult. Contrast injection was performed. Exam performed portable in patient room. Left Ventricle Normal LV size. Mild concentric left ventricular hypertrophy. The LV ejection fraction is 65 %. Stage 1 diastolic dysfunction. Right Ventricle Normal right ventricle. Atria There is mild biatrial dilatation. Mitral Valve Normal mitral valve. Tricuspid Valve Normal tricuspid valve. Aortic Valve The aortic valve is not well visualized in the short axis view. There is no aortic stenosis. No aortic valve insufficiency. Pulmonic Valve The pulmonic valve is not well visualized. Great Vessels The aortic root is not well visualized. Pericardium/Pleural No pericardial effusion. Medication Diluted definity 1ml given slow IV push to enhance endocardial definition. MMode/2D Measurements & Calculations LVIDd: 5.4 cm IVSd: 1.1 cm LVOT diam: 2.0 cm LVIDs: 3.6 cm LVPWd: 1.4 cm FS: 33.9 % LVOT area: 3.3 cm2 _ LAV(MOD-bp): 78.0 ml LVAd ap4: 42.1 cm2 SV(MOD-sp4): 84.9 ml LAV(MOD-bp) Indexed: 29.7 ml/m2 LVLd ap4: 9.9 cm SI(MOD-sp4): 32.3 ml/m2 LAV(MOD-sp2): 83.9 ml EDV(MOD-sp4): 146.5 ml LAV(MOD-sp4): 66.9 ml EDV(sp4-el): 153.0 ml LVAs ap4: 25.5 cm2 LVLs ap4: 8.6 cm ESV(MOD-sp4): 61.5 ml ESV(sp4-el): 64.4 ml EF(MOD-sp4): 58.0 % EF(sp4-el): 57.9 % SV(sp4-el): 88.7 ml LA A4 area: 25.0 cm2 LA dimension(2D): 4.7 cm RA A4 area: 24.9 cm2 Time Measurements MV dec time: 0.29 sec Doppler Measurements & Calculations MV E max marlene: 105.6 cm/sec Lat Peak E' Marlene: 10.0 cm/sec Med Peak E' Marlene: 9.5 cm/sec MV A max marlene: 88.6 cm/sec E/E' lat: 10.6 E/E' med: 11.2 MV E/A: 1.2 MV V2 max: 103.4 cm/sec MV dec slope: 373.5 cm/sec2 Ao V2 max: 147.9 cm/sec MV max P.3 mmHg Ao max P.8 mmHg MV V2 mean: 69.1 cm/sec Ao V2 mean: 100.2 cm/sec MV mean P.1 mmHg Ao mean P.7 mmHg MV V2 VTI: 34.6 cm Ao V2 VTI: 33.5 cm MVA(VTI): 2.7 cm2 AV (velocity ratio): 0.84 ROSEANNE(I,D): 2.8 cm2 ROSEANNE(V,D): 2.9 cm2 LV V1 max: 128.2 cm/sec SV(LVOT): 93.1 ml PA V2 max: 94.5 cm/sec LV V1 max P.6 mmHg PA V2 mean: 65.5 cm/sec LV V1 mean P.1 mmHg LV V1 mean: 94.4 cm/sec LV V1 VTI: 28.3 cm ECHO/Echo Complete W/ Contrast Interpretation Summary Mild concentric left ventricular hypertrophy. The LV ejection fraction is 65 %. Stage 1 diastolic dysfunction. There is mild biatrial dilatation. The study was technically difficult. Ordering Physician: Arlette Grigsby Referring Physician: MORGAN BARAJAS Performed By: Ada Browning RCS 12/16/241511 Date _ Jean Brown MD CC: [employer]ING [employer]TE[employer]CE MECH[employer]IC-C Morgan Barajas; Dr. Arlette Grigsby MD; Dr. Marcellus Gunn MD ~ Date Dictated: 12/16/24 112 Date Transcribed: 12/16/241511 Hydrologist: Signed [facility] Work Phone: [phone] Eosinophil percentageOrdered By: Arlette Grigsby on 12-16-2024 Eosinophils/100 WBC (Bld) 1.3 % 0-5 [facility] Erythrocyte distribution wid th ratioOrdered By: Arlette Grigsby on 12-16-2024 Erythrocyte distribution width (RBC) [Ratio] 20.4 % High 11.6-14.6 [facility] Erythrocyte distribution wid th standard deviationOrdered By: Arlette Calista on 12-16-2024 Erythrocyte distribution width (RBC) [Ratio] 55.1 fl High 35.1-43.9 [facility] Glomerular filtration rate ( GFR) estimation/1.73 sq m using serum, plasma, or whole bOrdered By: Arlette Grigsby on 12-16-2024 GFR/1.73 sq M.predicted among non-blacks MDRD (S/P/Bld) [Vol rate/Area] 108 mL/min/{1.73_m2} >60 [facility] Comment on above: mL/min/1.73m2 CKD-EP I Creatinine Equation (2020) Result Comment: mL/m in/1.73m2 CKD-EPI Creatinine Equation (2020) Performed By: #### L 500.4050, L501.9985, L503.6550, L500.4100, L501.9520, L503.6030, L100.0100 ####[facility] [address] [place], [place], [phone] Gram Stainon 12-16-2024 GS Positive Normal [facility] Comment on above: Performed By: #### M 100.2000, M8200.1075, M100.3000 ####[facility] [address] [place], [place], [phone] Hematocrit Auto (Bld) [Volum e fraction]Ordered By: Arlette Grigsby on 12-16-2024 Hematocrit (Bld) [Volume fraction] 29.9 % Low 40-54 [facility] Hemoglobin A1c percentageOrd ered By: Arlette Grigsby on 12-16-2024 HbA1c (Bld) [Mass fraction] 5.3 % <5.7 [facility] Comment on above: Normal < 5.7 % Predi abetic 5.7 - 6.4 % Diabetic >or= 6.5 % Please note range changes. Result Comment: Norm al < 5.7 % Prediabetic 5.7 - 6.4 % Diabetic >or= 6.5 % Please note range changes. Performed By: #### L 500.4050, L501.9985, L503.6550, L500.4100, L501.9520, L503.6030, L100.0100 ####[facility] [address] [place], [place], [phone] Hemoglobin measurementOrdere d By: Arlette Grigsby on 12-16-2024 Hemoglobin (Bld) [Mass/Vol] 7.9 g/dL Low 13.0-16.5 [facility] Immature granulocytes/100 WB C Auto (Bld)Ordered By: Arlette Grigsby on 12-16-2024 Immature granulocytes/100 WBC (Bld) 0.300 % 0.0-0.9 [facility] Comment on above: IG% - Immature Granu locytes (promyelocytes, myelocytes and metamyelocytes) > 1% indicates that a LEFT SHIFT is Present. Iron measurement (mass/mass) Ordered By: Arlette Grigsby on 12-16-2024 Iron (Unsp spec) [Mass/Mass] 20 ug/dL Low 65-175 [facility] Iron+Iron Binding Capacityon 12-16-2024 Iron [Mass/Vol] 20 ug/dL Low 65-175 [facility] Comment on above: Performed By: #### L 500.4050, L501.9985, L503.6550, L500.4100, L501.9520, L503.6030, L100.0100 ####[facility] [address] [place], [address] IRON SATURATION 7.0 Low 9-55 [facility] Comment on above: Performed By: #### L 500.4050, L501.9985, L503.6550, L500.4100, L501.9520, L503.6030, L100.0100 ####[facility] [address] [place], [address] TIBC 295 ug/dL Normal 250-450 [facility] Comment on above: Performed By: #### L 500.4050, L501.9985, L503.6550, L500.4100, L501.9520, L503.6030, L100.0100 ####[facility] [address] [place], [address] UIBC 275 ug/dL Normal 228-428 [facility] Comment on above: Performed By: #### L 500.4050, L501.9985, L503.6550, L500.4100, L501.9520, L503.6030, L100.0100 ####[facility] [address] [place], [address] L509.7001on 12-16-2024 Procalcitonin 0.10 ng/mL Normal <=0.10 [facility] Comment on above: Result Comment: Inte rpretation:<0.10-0.25 ng/mL: Antibiotic therapy discouraged. Bacterialinfection unlikely.0.25-0.50 ng/mL: Antibiotic therapy encouraged. Bacterialinfection possible.>0.50 ng/mL: Antibiotic therapy strongly encouraged.Suggestive of presence of bacterial infection.PCT should always be interpreted in the clinical context ofthe patient. Therefore, clinicians should use the PCTresults in conjunction with other laboratory findings andclinical signs of the patient. Performed By: #### L 509.7001 ####[facility] [address] [place], [address] LDL calc ser/plasOrdered By: Arlette Grigsby on 12-16-2024 Cholesterol in LDL [Mass/Vol] 23 mg/dL [facility] Comment on above: Wusfzfjvub=362-379 m g/dL & Higher Njgi=100 mg/dL or greater Result Comment: Bord ekcgag=062-825 mg/dL Higher Vicb=921 mg/dL or greater Performed By: #### L 500.4050, L501.9985, L503.6550, L500.4100, L501.9520, L503.6030, L100.0100 ####[facility] [address] [place], [address] Lactic acid measurementOrder ed By: Derrick Camejo on 12-16-2024 Lactate [Moles/Vol] 1.6 mmol/L Normal 0.0-2.0 [facility] Comment on above: Performed By: #### L 503.6007 ####[facility] [address] [place], [address] Lipid Profileon 12-16-2024 CHOL:HDL 2.25 Normal [facility] Comment on above: Performed By: #### L 500.4050, L501.9985, L503.6550, L500.4100, L501.9520, L503.6030, L100.0100 ####[facility] [address] [place], [address] Cholesterol in VLDL [Mass/Vol] 17 mg/dL Normal 5-40 [facility] Comment on above: Performed By: #### L 500.4050, L501.9985, L503.6550, L500.4100, L501.9520, L503.6030, L100.0100 ####[facility] [address] [place], [address] M R Staph Aureus DNA by PCRo n 12-16-2024 MRSA DNA ASSAY Negative Normal Negative [facility] Comment on above: Performed By: #### L 8200.1000 ####[facility] [address] [place], [address] MCV (mean corpuscular volume ) determinationOrdered By: Arlette Calista on 12-16-2024 MCV (RBC) [Entitic vol] 75.1 fL Low 80-94 [facility] Mean corpuscular hemoglobin (MCH) determinationOrdered By: Calista on 12-16-2024 MCH (RBC) [Entitic mass] 19.8 pg Low 27.0-32.0 [facility] Mean corpuscular hemoglobin concentration (MCHC) determinationOrdered By: Calista on 12-16-2024 MCHC (RBC) [Mass/Vol] 26.4 g/dL Low 32-36 [facility] Mean platelet volume determi nationOrdered By: Arlette Calista on 12-16-2024 Platelet mean volume (Bld) [Entitic vol] 9.3 fL 6.2-12.0 [facility] Monocyte percentageOrdered B y: Arlette Calista on 12-16-2024 Monocytes/100 WBC (Bld) 7.2 % 0-10 [facility] Neutrophil percentageOrdered By: Calista on 12-16-2024 Neutrophils/100 WBC (Bld) 79.2 % High 47-70 [facility] No Panel InformationOrdered By: Arlette Calista on 12-16-2024 Unsaturated Iron Binding Capacity 275 ug/dL 228-428 [facility] 2+ [facility] 24 U/L <38 [facility] 275 ug/dL 228-428 [facility] Nucleated red blood cell per centageOrdered By: Arlette Calista on 12-16-2024 Nucleated RBC/100 WBC (Bld) [Ratio] 0 % 0-5 [facility] Platelet countOrdered By: Kenisha Grigsby on 12-16-2024 Platelets (Bld) [#/Vol] 197 10*3/uL 150-450 [facility] Potassium measurement (mass/ volume)Ordered By: Arlette Grigsby on 12-16-2024 Potassium (Unsp spec) [Mass/Vol] 4.0 mmol/L 3.3-5.1 [facility] RBC Auto (Bld) [#/Vol]Ordere d By: Arlette Grigsby on 12-16-2024 RBC (Bld) [#/Vol] 3.98 10*6/uL Low 4.6-6.2 [facility] Screening total cholesterol/ high density lipoprotein (HDL) cholesterol ratioOrdered By: Arlette Grigsby on 12-16-2024 Cholesterol.total/Dipti sterol in HDL [Mass ratio] 2.25 {ratio} [facility] Serum creatinine measurement (mass/volume)Ordered By: Arlette Grigsby on 12-16-2024 Creatinine [Mass/Vol] 0.66 mg/dL Low 0.70-1.20 [facility] Comment on above: Performed By: #### L 500.4050, L501.9985, L503.6550, L500.4100, L501.9520, L503.6030, L100.0100 ####[facility] [address] [place], [place], [phone] Serum globulin measurementOr dered By: Arlette Grigsby on 12-16-2024 Globulin (S) [Mass/Vol] 3.7 g/dL 2.2-4.2 [facility] Comment on above: Performed By: #### L 500.4050, L501.9985, L503.6550, L500.4100, L501.9520, L503.6030, L100.0100 ####[facility] [address] [place], [place], [id number] Serum glucose measurement (m ass/volume)Ordered By: Arlette Grigsby on 12-16-2024 Glucose [Mass/Vol] 42 mg/dL Low 70-99 [facility] Comment on above: Critical Result(s) C alled at: 12/16/2024-07:34 by: Jeferson Grigsby to Britt Kim. Results read back by same. Result Comment: Crit ical Result(s) Called at: 12/16/2024-07:34 by: Linda to Britt Kim.??Results read back by same. Performed By: #### L 500.4050, L501.9985, L503.6550, L500.4100, L501.9520, L503.6030, L100.0100 ####[facility] [address] [place], [place], [phone](152) Serum or plasma alanine ball otransferase (ALT) measurementOrdered By: Arlette Grigsby on 12-16-2024 ALT [Catalytic activity/Vol] 17 U/L <47 [facility] Comment on above: Performed By: #### L 500.4050, L501.9985, L503.6550, L500.4100, L501.9520, L503.6030, L100.0100 ####[facility] [address] [place], [address](347) Serum or plasma albumin davidson urement (mass/volume)Ordered By: Arlette Grigsby on 12-16-2024 Albumin [Mass/Vol] 3.2 g/dL Low 3.5-5.0 [facility] Comment on above: Performed By: #### L 500.4050, L501.9985, L503.6550, L500.4100, L501.9520, L503.6030, L100.0100 ####[facility] [address] [place], [place], [phone]43) Serum or plasma albumin/glob ulin mass ratioOrdered By: Arlette Grigsby on 12-16-2024 Albumin/Globulin [Mass ratio] 0.9 {ratio} 0.9-2.4 [facility] Comment on above: Performed By: #### L 500.4050, L501.9985, L503.6550, L500.4100, L501.9520, L503.6030, L100.0100 ####[facility] [address] [place], [address](686) Serum or plasma alkaline sabas sphatase measurementOrdered By: Arlette Grigsby on 12-16-2024 ALP [Catalytic activity/Vol] 251 U/L High 40-129 [facility] Serum or plasma calcium davidson urement (mass/volume)Ordered By: Arlette Grigsby on 12-16-2024 Calcium [Mass/Vol] 8.3 mg/dL 7.6-11.0 [facility] Comment on above: Performed By: #### L 500.4050, L501.9985, L503.6550, L500.4100, L501.9520, L503.6030, L100.0100 ####[facility] [address] [place], [address] Serum or plasma cholesterol in HDL measurement (mass/volume)Ordered By: Arlette Grigsby on 12-16-2024 Cholesterol in HDL [Mass/Vol] 32 mg/dL Low >40 [facility] Comment on above: National Cholesterol Education Program (NCEP) guidelines:<40 mg/dL: Low HDL-cholesterol (major risk factor for CHD)>= 60 mg/dL: High HDL-cholesterol (negative risk factor for CHD)HDL-cholesterol is affected by a number of factors, e.g. smoking, exercise, hormones, sex and age. Result Comment: Annie onal Cholesterol Education Program (NCEP) guidelines:<40 mg/dL: Low HDL-cholesterol (major risk factor for CHD)>= 60 mg/dL: High HDL-cholesterol (negative risk factor forCHD)HDL-cholesterol is affected by a number of factors, e.g.smoking, exercise, hormones, sex and age. Performed By: #### L 500.4050, L501.9985, L503.6550, L500.4100, L501.9520, L503.6030, L100.0100 ####[facility] [address] [place], [address] Serum or plasma cholesterol measurement (mass/volume)Ordered By: Arlette Grigsby on 12-16-2024 Cholesterol [Mass/Vol] 72 mg/dL <201 [facility] Comment on above: Cholesterol level, D esirable <200 mg/dLBorderline high cholesterol 200-239 mg/dLHigh cholesterol >=240 mg/dLRecommendations of the NCEP Adult Treatment Panel for the following risk-cutoff thresholds for the [place] population. Result Comment: Chol esterol level, Desirable <200 mg/dLBorderline high cholesterol 200-239 mg/dLHigh cholesterol >=240 mg/dLRecommendations of the NCEP Adult Treatment Panel for thefollowing risk-cutoff thresholds for the [place] Americanpopulation. Performed By: #### L 500.4050, L501.9985, L503.6550, L500.4100, L501.9520, L503.6030, L100.0100 ####[facility] [address] [place], [place], [phone] Serum or plasma ferritin alyssa surement (mass/volume)Ordered By: Arlette Grigsby on 12-16-2024 Ferritin [Mass/Vol] 12 ng/mL Low 37-417 [facility] Comment on above: Performed By: #### L 500.4050, L501.9985, L503.6550, L500.4100, L501.9520, L503.6030, L100.0100 ####[facility] [address] [place], [place], [phone] Serum or plasma iron saturat ion measurement (mass fraction)Ordered By: Arlette Grigsby on 12-16-2024 Iron saturation [Mass fraction] 7.0 % Low 9-55 [facility] Serum or plasma urea nitroge n measurement (mass/volume)Ordered By: Arlette Grigsby on 12-16-2024 Urea nitrogen [Mass/Vol] 14 mg/dL 4-19 [facility] Comment on above: Performed By: #### L 500.4050, L501.9985, L503.6550, L500.4100, L501.9520, L503.6030, L100.0100 ####[facility] [address] [place], [place], [phone] Sodium levelOrdered By: Gerry Grigsby on 12-16-2024 Sodium [Moles/Vol] 137 mmol/L 133-145 [facility] Comment on above: Performed By: #### L 500.4050, L501.9985, L503.6550, L500.4100, L501.9520, L503.6030, L100.0100 ####[facility] [address] [place], [place], [phone] TSH DL <= 0.005 mIU/L QnOrde red By: Arlette Grigsby on 12-16-2024 TSH Qn 8.580 uIU/mL High 0.300-4.200 [facility] Thyroid Stim Hormone (TSH)on 12-16-2024 TSH 8.580 uIU/mL High 0.300-4.200 [facility] Comment on above: Performed By: #### L 500.4050, L501.9985, L503.6550, L500.4100, L501.9520, L503.6030, L100.0100 ####[facility] [address] [place], [place], [phone] Total proteinOrdered By: Gabriella Grigsby on 12-16-2024 Protein [Mass/Vol] 6.9 g/dL 5.9-8.4 [facility] Triglycerides measurementOrd ered By: Arlette Grigsby on 12-16-2024 Triglyceride [Mass/Vol] 83 mg/dL Normal [facility] Comment on above: The drugs N-Acetylcy steine and Metamizole may falsely depress this assay. Normal range: <150 mg/dLBorderline High: 150-199 mg/dLHigh: 200-499 mg/dLVery High: >500 mg/dL Result Comment: The drugs N-Acetylcysteine and Metamizole may falselydepress this assay.Normal range: <150 mg/dLBorderline High: 150-199 mg/dLHigh: 200-499 mg/dLVery High: >500 mg/dL Performed By: #### L 500.4050, L501.9985, L503.6550, L500.4100, L501.9520, L503.6030, L100.0100 ####[facility] [address] [place], [address] White blood cell (WBC) count Ordered By: Arlette Grigsby on 12-16-2024 WBC (Bld) [#/Vol] 10.8 10*3/uL 4.4-11.0 [facility] Absolute lymphocyte countOrd ered By: Derrick Camejo on 12-15-2024 Lymphocytes Auto (Unsp spec) [#/Vol] 1.38 10*3/uL 0.83-4.51 [facility] Absolute neutrophil countOrd ered By: Derrick Bashir on 12-15-2024 Neutrophils (Bld) [#/Vol] 9.0 10*3/uL High 2.0-7.7 [facility] Anion gap in Serum or Plasma Ordered By: Derrick Camejo on 12-15-2024 Anion gap [Moles/Vol] 10 mmol/L 5- [facility] Automated lymphocyte count a s percentage of total leukocytesOrdered By: Derrick Camejo on 12-15-2024 Lymphocytes/100 WBC Auto (Unsp spec) 12.0 % Low 19-41 [facility] BUN/creatinine ratioOrdered By: Derrick Camejo on 12-15-2024 Urea nitrogen/Creatinine [Mass ratio] 19.3 mg/mg 10-20 [facility] Basic Metabolic Profile (BMP )on 12-15-2024 BUN/CRE 19.3 RATIO Normal 10-20 [facility] Comment on above: Performed By: #### L 500.2500, L503.7505, L503.6005, L100.0100 ####[facility] [address] [place], [address] ECRCL 165.21 ml/min Normal 50-250 [facility] Comment on above: Performed By: #### L 500.2500, L503.7505, L503.6005, L100.0100 ####[facility] [address] [place], [address] GAP 10 Normal 5-15 [facility] Comment on above: Performed By: #### L 500.2500, L503.7505, L503.6005, L100.0100 ####[facility] [address] [place], [place], [phone] Potassium [Moles/Vol] 4.4 mmol/L Normal 3.3-5.1 [facility] Comment on above: Performed By: #### L 500.2500, L503.7505, L503.6005, L100.0100 ####[facility] [address] [place], [address] Basophil percentageOrdered B y: Derrick Camejo on 12-15-2024 Basophils/100 WBC (Bld) 0.3 % 0-1 [facility] Blood cultureOrdered By: Yohannes Camejo on 12-15-2024 Bacteria identified Cx Nom (Bld) No growth in 5 days. [facility] Blood manual differential co mment interpretation (narrative result)Ordered By: Derrick Camejo on 12-15-2024 Manual differential comment Pio (Bld) [Interp] SCANNED [facility] Blood polychromasia detectio n by light microscopyOrdered By: Derrick Levi on 12-15-2024 Polychromasia LM Ql (Bld) 1+ [facility] CBC W/Diff, AutomatedOrdered By: Derrick Camejo on 12-15-2024 Anisocytosis Ql (Bld) 1+ Normal [facility] Comment on above: Performed By: #### L 500.2500, L503.7505, L503.6005, L100.0100 ####[facility] [address] [place], [address] CBC W/Diff, Automatedon 11-22 POLYCHROMASIA 1+ Normal [facility] Comment on above: Performed By: #### L 500.2500, L503.7505, L503.6005, L100.0100 ####[facility] [address] [place], [address] PLT EST ADEQUATE Normal ADEQ [facility] Comment on above: Performed By: #### L 500.2500, L503.7505, L503.6005, L100.0100 ####[facility] [address] [place], [address] SMEAR COMMENT SCANNED Normal [facility] Comment on above: Performed By: #### L 500.2500, L503.7505, L503.6005, L100.0100 ####[facility] [address] [place], [address] Carbon dioxide, total [Moles /volume] in Central venous bloodOrdered By: Derrick Camejo on 12-15-2024 CO2 [Moles/Vol] 30.8 mmol/L Normal 21.0-32.0 [facility] Comment on above: Performed By: #### L 500.2500, L503.7505, L503.6005, L100.0100 ####[facility] [address] [place], [address] Chest PA and Lateralon 12-15 Chest PA and Lateral Normal [facility] Chloride assayOrdered By: Tone Camejo on 12-15-2024 Chloride [Moles/Vol] 92 mmol/L Low 98-108 [facility] Comment on above: Performed By: #### L 500.2500, L503.7505, L503.6005, L100.0100 ####[facility] [address] [place], [address] Echo Complete W/ Contraston 12-15-2024 Echo Complete W/ Contrast Normal [facility] Emergency Department Summary on 12-15-2024 Emergency Department Summary Normal [facility] Eosinophil percentageOrdered By: Derrick Camejo on 12-15-2024 Eosinophils/100 WBC (Bld) 1.1 % 0-5 [facility] Erythrocyte distribution wid th ratioOrdered By: Harshaw Bashir on 12-15-2024 Erythrocyte distribution width (RBC) [Ratio] 20.6 % High 11.6-14.6 [facility] Erythrocyte distribution wid th standard deviationOrdered By: [facility]edgardo Levi on 12-15-2024 Erythrocyte distribution width (RBC) [Ratio] 53.4 fl High 35.1-43.9 [facility] Glomerular filtration rate ( GFR) estimation/1.73 sq m using serum, plasma, or whole bOrdered By: Derrickyasmani Camejo on 12-15-2024 GFR/1.73 sq M.predicted among non-blacks MDRD (S/P/Bld) [Vol rate/Area] 105 mL/min/{1.73_m2} Normal >60 [facility] Comment on above: mL/min/1.73m2 CKD-EP I Creatinine Equation (2020) Result Comment: mL/m in/1.73m2 CKD-EPI Creatinine Equation (2020) Performed By: #### L 500.2500, L503.7505, L503.6005, L100.0100 ####[facility] [address], [place], [phone] Gram stainOrdered By: Arlette Grigsby on 12-15-2024 Microscopic observation Gram stain Nom (Unsp spec) [facility] H AND P Exam - Hospitaliston 12-15-2024 H&P Exam - Hospitalist Normal [facility] Hematocrit Auto (Bld) [Volum e fraction]Ordered By: Derrick Camejo on 12-15-2024 Hematocrit (Bld) [Volume fraction] 31.6 % Low 40-54 [facility] Hemoglobin measurementOrdere d By: Derrick Camejo on 12-15-2024 Hemoglobin (Bld) [Mass/Vol] 8.6 g/dL Low 13.0-16.5 [facility] Immature granulocytes/100 WB C Auto (Bld)Ordered By: Derrick Camejo on 12-15-2024 Immature granulocytes/100 WBC (Bld) 0.300 % 0.0-0.9 [facility] Comment on above: IG% - Immature Granu locytes (promyelocytes, myelocytes and metamyelocytes) > 1% indicates that a LEFT SHIFT is Present. L503.7505on 12-15-2024 Natriuretic peptide B (Bld) [Mass/Vol] 220 pg/mL Normal <=900 [facility] Comment on above: Result Comment: Hear t Failure Unlikely: < 300 pg/mLHeart Failure Likely< 50 Years: > 450 pg/mL50-75 Years: > 900 pg/mL>75 Years: > 1800 pg/mL Performed By: #### L 500.2500, L503.7505, L503.6005, L100.0100 ####[facility] [address] [place], [address] Lactic acid measurementOrder ed By: Derrick Camejo on 12-15-2024 Lactate [Moles/Vol] 2.2 mmol/L Invalid Interpretation Code 0.0-2.0 [facility] Comment on above: Critical Result(s) C alled at: 2200 by: GHAZAL GUZMAN TO GRACIELA DUBOIS Results read back by same. Order Comment: Y Result Comment: Crit ical Result(s) Called at: 2200 by:??GHAZAL GUZMAN TOEKATYA DUBOIS Results read back by same. Performed By: #### L 500.2500, L503.7505, L503.6005, L100.0100 ####[facility] [address] [place], [address] MCV (mean corpuscular volume ) determinationOrdered By: Derrick Camejo on 12-15-2024 MCV (RBC) [Entitic vol] 73.3 fL Low 80-94 [facility] Magnesiumon 12-15-2024 Magnesium [Mass/Vol] 2.1 mg/dL Normal 1.5-2.2 [facility] Comment on above: Order Comment: Comme nts: may add to ED labs Performed By: #### L 501.5200 ####[facility] [address] [place], [address] Magnesium measurement (mass/ volume)Ordered By: Arlette Grigsby on 12-15-2024 Magnesium (Unsp spec) [Mass/Vol] 2.1 mg/dL 1.5-2.2 [facility] Mean corpuscular hemoglobin (MCH) determinationOrdered By: Derrick Camejo on 12-15-2024 MCH (RBC) [Entitic mass] 20.0 pg Low 27.0-32.0 [facility] Mean corpuscular hemoglobin concentration (MCHC) determinationOrdered By: Derrick Camejo on 12-15-2024 MCHC (RBC) [Mass/Vol] 27.2 g/dL Low 32-36 [facility] Mean platelet volume determi nationOrdered By: Derrick Camejo on 12-15-2024 Platelet mean volume (Bld) [Entitic vol] 9.4 fL 6.2-12.0 [facility] Monocyte percentageOrdered B y: Derrick Camejo on 12-15-2024 Monocytes/100 WBC (Bld) 7.7 % 0-10 [facility] Natriuretic peptide.B prohor amanda N-Terminal [Mass/volume] in Serum or PlasmaOrdered By: Derrick Camejo on 12-15-2024 Natriuretic peptide.B prohormone N-Terminal [Mass/Vol] 220 pg/mL <900 [facility] Comment on above: Heart Failure Unlike ly: < 300 pg/mLHeart Failure Likely< 50 Years: > 450 pg/mL50-75 Years: > 900 pg/mL>75 Years: > 1800 pg/mL Neutrophil percentageOrdered By: Derrick Camejo on 12-15-2024 Neutrophils/100 WBC (Bld) 78.6 % High 47-70 [facility] Nucleated red blood cell per centageOrdered By: Derrick Camejo on 12-15-2024 Nucleated RBC/100 WBC (Bld) [Ratio] 0 % 0-5 [facility] Platelet countOrdered By: Tone Camejo on 12-15-2024 Platelets (Bld) [#/Vol] 217 10*3/uL 150-450 [facility] Platelet estimateOrdered By: Derrick Camejo on 12-15-2024 Platelets LM Ql (Bld) ADEQUATE ADEQ [facility] Potassium measurement (mass/ volume)Ordered By: Derrick Camejo on 12-15-2024 Potassium (Unsp spec) [Mass/Vol] 4.4 mmol/L 3.3-5.1 [facility] Procalcitonin [Mass/volume] in Serum or Plasma by ImmunoassayOrdered By: Arlette Grigsby on 12-15-2024 Procalcitonin IA [Mass/Vol] 0.10 ng/mL <0.11 [facility] Comment on above: Interpretation:<0.10 -0.25 ng/mL: Antibiotic therapy discouraged. Bacterial infection unlikely.0.25-0.50 ng/mL: Antibiotic therapy encouraged. Bacterial infection possible.>0.50 ng/mL: Antibiotic therapy strongly encouraged. Suggestive of presence of bacterial infection.PCT should always be interpreted in the clinical context of the patient. Therefore, clinicians should use the PCT results in conjunction with other laboratory findings and clinical signs of the patient. RBC Auto (Bld) [#/Vol]Ordere d By: Derrick Camejo on 12-15-2024 RBC (Bld) [#/Vol] 4.31 10*6/uL Low 4.6-6.2 [facility] Routine wound cultureOrdered By: Arlette Grigsby on 12-15-2024 Microbial culture, routine Alcaligenes faecalis ssp faeca Abnormal [facility] Microbial culture, routine Streptococcus agalactiae (B) Abnormal [facility] Serum creatinine measurement (mass/volume)Ordered By: Derrick Camejo on 12-15-2024 Creatinine [Mass/Vol] 0.73 mg/dL Normal 0.70-1.20 [facility] Comment on above: Performed By: #### L 500.2500, L503.7505, L503.6005, L100.0100 ####[facility] [address] [place], [place], [phone] Serum glucose measurement (m ass/volume)Ordered By: Derrick Camejo on 12-15-2024 Glucose [Mass/Vol] 116 mg/dL High 70-99 [facility] Comment on above: Performed By: #### L 500.2500, L503.7505, L503.6005, L100.0100 ####[facility] [address] [place], [address] Serum or plasma calcium davidson urement (mass/volume)Ordered By: Derrick Levi on 12-15-2024 Calcium [Mass/Vol] 8.9 mg/dL Normal 7.6-11.0 [facility] Comment on above: Performed By: #### L 500.2500, L503.7505, L503.6005, L100.0100 ####[facility] [address] [place], [address] Serum or plasma urea nitroge n measurement (mass/volume)Ordered By: Derrick Camejo on 12-15-2024 Urea nitrogen [Mass/Vol] 14 mg/dL Normal 4-19 [facility] Comment on above: Performed By: #### L 500.2500, L503.7505, L503.6005, L100.0100 ####[facility] [address] [place], [address] Sodium levelOrdered By: Ben Camejo on 12-15-2024 Sodium [Moles/Vol] 133 mmol/L Normal 133-145 [facility] Comment on above: Performed By: #### L 500.2500, L503.7505, L503.6005, L100.0100 ####[facility] [address] [place], [address] White blood cell (WBC) count Ordered By: Derrick Camejo on 12-15-2024 WBC (Bld) [#/Vol] 11.5 10*3/uL High 4.4-11.0 [facility] 12 Lead EKGon 11-30-2024 12 Lead EKG Normal [facility] Absolute lymphocyte countOrd ered By: Antoine Hahn on 11-30-2024 Lymphocytes Auto (Unsp spec) [#/Vol] 1.59 10*3/uL 0.83-4.51 [facility] Absolute neutrophil countOrd ered By: Antoine Hahn on 11-30-2024 Neutrophils (Bld) [#/Vol] 10.7 10*3/uL High 2.0-7.7 [facility] Anion gap in Serum or Plasma Ordered By: Antoine Hahn on 11-30-2024 Anion gap [Moles/Vol] 11 mmol/L 5-15 [facility] Automated lymphocyte count a s percentage of total leukocytesOrdered By: Antoine Hahn on 11-30-2024 Lymphocytes/100 WBC Auto (Unsp spec) 11.5 % Low 19-41 [facility] BUN/creatinine ratioOrdered By: Antoine Hahn on 11-30-2024 Urea nitrogen/Creatinine [Mass ratio] 19.2 mg/mg 10-20 [facility] Basic Metabolic Profile (BMP )on 11-30-2024 Glucose [Mass/Vol] 40 mg/dL Invalid Interpretation Code 70-99 [facility] Comment on above: Result Comment: Crit ical Result(s) Called at 1435: by: KEL BENTON. ??Results read back by same.Critical Result(s) Called at: by:??[facility] AMENDED REPORT 11/30/24 1521 GLU previously reported as: 40 *L mg/dLCritical Result(s) Called at 1435: by: KEL BENTON. ??Results read back by same. Performed By: #### L 100.0100, L500.2500, L501.4021 ####[facility] [address] [place], [place], [phone] Basophil percentageOrdered B y: Antoine Hahn on 11-30-2024 Basophils/100 WBC (Bld) 0.4 % 0-1 [facility] Bedside Glucoseon 11-30-2024 FINGERSTICK GLU 74 mg/dL Normal 74-106 [facility] Comment on above: Result Comment: MELI GEMENT OF PATIENT CARE PER NURSING PROTOCOL Performed By: #### L 501.080 ####[facility] [address] [place], [address] FINGERSTICK GLU 52 mg/dL Low 74-106 [facility] Comment on above: Result Comment: MELI GEMENT OF PATIENT CARE PER NURSING PROTOCOL Performed By: #### L 501.080 ####[facility] [address] [place], [address] Blood polychromasia detectio n by light microscopyOrdered By: Antoine Hahn on 11-30-2024 Polychromasia LM Ql (Bld) 1+ [facility] CBC W/Diff, Automatedon 11-21 Anisocytosis Ql (Bld) 1+ Normal [facility] Comment on above: Performed By: #### L 100.0100, L500.2500, L501.4021 ####[facility] [address] [place], [address] OVALOCYTE 1+ Normal [facility] Comment on above: Performed By: #### L 100.0100, L500.2500, L501.4021 ####[facility] [address] [place], [address] PLT EST A Normal ADEQ [facility] Comment on above: Performed By: #### L 100.0100, L500.2500, L501.4021 ####[facility] [address] [place], [address] POLYCHROMASIA 1+ Normal [facility] Comment on above: Performed By: #### L 100.0100, L500.2500, L501.4021 ####[facility] [address] [place], [address] Carbon dioxide, total [Moles /volume] in Central venous bloodOrdered By: Antoine Hahn on 11-30-2024 CO2 [Moles/Vol] 32.0 mmol/L 21.0-32.0 [facility] Chest 1 View (Portable)on Chest 1 View (Portable) Normal [facility] Chloride assayOrdered By: Rikki Hahn on 11-30-2024 Chloride [Moles/Vol] 93 mmol/L Low 98-108 [facility] D-Dimer Quantitative (DVT/PE )on 11-30-2024 D-DIMER QUANT 0.27 FEU/ug/m Normal 0.27-0.49 [facility] Comment on above: Result Comment: NORM AL D-Dimer level (<0.50) indicates no DVT or PE. Performed By: #### L 300.8000 ####[facility] [address] [place], [place], [address] Emergency Department Summary on 11-30-2024 Emergency Department Summary Normal [facility] Eosinophil percentageOrdered By: Antoine Hahn on 11-30-2024 Eosinophils/100 WBC (Bld) 1.5 % 0-5 [facility] Erythrocyte distribution wid th ratioOrdered By: Antoine Hahn on 11-30-2024 Erythrocyte distribution width (RBC) [Ratio] 20.2 % High 11.6-14.6 [facility] Erythrocyte distribution wid th standard deviationOrdered By: Antoine Hahn on 11-30-2024 Erythrocyte distribution width (RBC) [Ratio] 52.0 fl High 35.1-43.9 [facility] Glomerular filtration rate ( GFR) estimation/1.73 sq m using serum, plasma, or whole bOrdered By: Antoine Hahn on 11-30-2024 GFR/1.73 sq M.predicted among non-blacks MDRD (S/P/Bld) [Vol rate/Area] 107 mL/min/{1.73_m2} >60 [facility] Comment on above: mL/min/1.73m2 CKD-EP I Creatinine Equation (2020) Glucose measurement at bedsi deOrdered By: Antoine Hahn on 11-30-2024 Glucose [Mass/Vol] 74 mg/dL 74-106 [facility] Comment on above: MANAGEMENT OF PATIEN T CARE PER NURSING PROTOCOL Hematocrit Auto (Bld) [Volum e fraction]Ordered By: Antoine Hahn on 11-30-2024 Hematocrit (Bld) [Volume fraction] 34.2 % Low 40-54 [facility] Hemoglobin measurementOrdere d By: Antoine Hahn on 11-30-2024 Hemoglobin (Bld) [Mass/Vol] 9.4 g/dL Low 13.0-16.5 [facility] Immature granulocytes/100 WB C Auto (Bld)Ordered By: Antoine Hahn on 11-30-2024 Immature granulocytes/100 WBC (Bld) 0.400 % 0.0-0.9 [facility] Comment on above: IG% - Immature Granu locytes (promyelocytes, myelocytes and metamyelocytes) > 1% indicates that a LEFT SHIFT is Present. L499.0042on 11-30-2024 Trop T High Sen 20 ng/L Normal <=22 [facility] Comment on above: Performed By: #### L 499.0042 ####[facility] [address] [place], [address] L499.0043on 11-30-2024 Trop T High Sen Normal <=22 [facility] Comment on above: Result Comment: PT D ISCHARGED Performed By: #### L 499.0043 ####[facility] [address] [place], [address] L501.4021on 11-30-2024 Trop T High Sen 22 ng/L Normal <=22 [facility] Comment on above: Performed By: #### L 100.0100, L500.2500, L501.4021 ####[facility] [address] [place], [address] Laboratory - Hematology and Cell countsOrdered By: Antoine Hahn on 11-30-2024 Anisocytosis Ql (Bld) 1+ [facility] MCV (mean corpuscular volume ) determinationOrdered By: Antoine Hahn on 11-30-2024 MCV (RBC) [Entitic vol] 73.4 fL Low 80-94 [facility] Mean corpuscular hemoglobin (MCH) determinationOrdered By: Antoine Hahn on 11-30-2024 MCH (RBC) [Entitic mass] 20.2 pg Low 27.0-32.0 [facility] Mean corpuscular hemoglobin concentration (MCHC) determinationOrdered By: Antoine Hahn on 11-30-2024 MCHC (RBC) [Mass/Vol] 27.5 g/dL Low 32-36 [facility] Mean platelet volume determi nationOrdered By: Antoine Hahn on 11-30-2024 Platelet mean volume (Bld) [Entitic vol] 9.6 fL 6.2-12.0 [facility] Monocyte percentageOrdered B y: Antoine Hahn on 11-30-2024 Monocytes/100 WBC (Bld) 8.8 % 0-10 [facility] Neutrophil percentageOrdered By: Antoine Hahn on 11-30-2024 Neutrophils/100 WBC (Bld) 77.4 % High 47-70 [facility] No Panel InformationOrdered By: Antoine Hahn on 11-30-2024 1+ [facility] Nucleated red blood cell per centageOrdered By: Antoine Hahn on 11-30-2024 Nucleated RBC/100 WBC (Bld) [Ratio] 0 % 0-5 [facility] Ovalocyte detectionOrdered B y: Antoine Hahn on 11-30-2024 Ovalocytes LM Ql (Bld) 1+ [facility] Platelet countOrdered By: Rikki Hahn on 11-30-2024 Platelets (Bld) [#/Vol] 257 10*3/uL 150-450 [facility] Platelet estimateOrdered By: Antoine Hahn on 11-30-2024 Platelets LM Ql (Bld) A ADEQ [facility] Potassium measurement (mass/ volume)Ordered By: Antoine Hahn on 11-30-2024 Potassium (Unsp spec) [Mass/Vol] 4.2 mmol/L 3.3-5.1 [facility] RBC Auto (Bld) [#/Vol]Ordere d By: Antoine Hahn on 11-30-2024 RBC (Bld) [#/Vol] 4.66 10*6/uL 4.6-6.2 [facility] Serum creatinine measurement (mass/volume)Ordered By: Antoine Hahn on 11-30-2024 Creatinine [Mass/Vol] 0.68 mg/dL Low 0.70-1.20 [facility] Serum glucose measurement (m ass/volume)Ordered By: Antoine Hahn on 11-30-2024 Glucose [Mass/Vol] 40 mg/dL Low 70-99 [facility] Comment on above: Critical Result(s) C alled at 1435: by: KEL MARTINEZ TO REMIGIO. Results read back by same. Critical Result(s) Called at: by: Results read back by same.Previous reported result: 40 mg/dLEdited by: MARGO on 11/30/24:1521 AMENDED REPORT 11/30/24 1521 GLU previously reported as: 40 *L mg/dL Critical Result(s) Called at 1435: by: KEL FLOOD. Results read back by same. Serum or plasma calcium davidson urement (mass/volume)Ordered By: Antoine Hahn on 11-30-2024 Calcium [Mass/Vol] 9.3 mg/dL 7.6-11.0 [facility] Serum or plasma urea nitroge n measurement (mass/volume)Ordered By: Antoine Hhan on 11-30-2024 Urea nitrogen [Mass/Vol] 13 mg/dL 4-19 [facility] Sodium levelOrdered By: Antoine Hahn on 11-30-2024 Sodium [Moles/Vol] 136 mmol/L 133-145 [facility] Troponin T.cardiac [Mass/vol ume] in Serum or Plasma by High sensitivity methodOrdered By: Antoine Hahn on 11-30-2024 Troponin T.cardiac High sensitivity method [Mass/Vol] 20 ng/L <22 [facility] Troponin T.cardiac High sensitivity method [Mass/Vol] 22 ng/L <22 [facility] White blood cell (WBC) count Ordered By: Antoine Hahn on 11-30-2024 WBC (Bld) [#/Vol] 13.8 10*3/uL High 4.4-11.0 [facility] Cardiology Visit Reporton Cardiology Visit Report Normal [facility] Gastroenterology Visit Repor ton 11-11-2024 Gastroenterology Visit Report Normal [facility] CNOVon 11-02-2024 CNOV Office Visit (UROLWS ) -------- DERRELL HOYT ([id number]) 1965 M Date Time Provider Department 11/02/24 8:30 AM SHILO BERNAL UROLMENG During your visit today, we recorded the following information about you: Temperature Pulse Respiration Blood pressure 97.7 degrees 80/minute 20/minute 98/62 Weight Height 147 kg 1.854 m Ana Arroyo LPN 11/02/2024 1:31 PM Signed Verified [...] tolerated the procedure well. Plan: Appointment with Shilo Clement PA-C 11/02/2024 1:31 PM Signed [facility] NEW PATIENT CLINIC NOTE (M) Note was generated by [employer] and edited as appropriate SERVICE DATE: [...] (ng/mL) Date Value 09/12/2015 0.18 MEDICATIONS: senna (GREER-DANYEL) 8.6 mg tab Take 17.2 mg by [...] Inhale 2 (more content not included)... Normal [facility] Glucoseon 10-20-2024 FINGERSTICK GLU 79 mg/dL Normal 74-106 [facility] Comment on above: Result Comment: MELI CLINTON OF PATIENT CARE PER NURSING PROTOCOL Performed By: #### L 501.080 ####[facility] [address] [place], [address] [facility] 10-20-2024 SOLITARIO Telephone (ALBARO) -------- DERRELL HOYT ([id number]) 1965 M Date Time Provider Department 10/20/24 SHILO BERNAL During your visit today, we recorded the following information about you: Ana Arroyo LPN 10/20/2024 9:24 AM Signed Called patient. No answer- left message to call clinic. Patient has appointment in October to see urology for Increased Urination AND Dysuria. No referral in system. Has patient been seen elsewhere for urological issues and if so where? We like to request records for appointment. MER Wellington Kimberly, LPN 10/28/2024 4:08 PM Signed Called [facility] due to Care[facility]where. Spoke with Rupali. Patient discharged with them in 2019. Ana Arroyo LPN Allergies As of Date: 10/20/2024 (No Known Allergies) Date Reviewed: 11/22/2023 Reviewed by: Nikunj Lizama, RN - Fully Assessed Reason for Visit: Appointment [186] Prescriptions as of 11/03/2024 - senna (GREER-DANYEL) 8.6 mg tab Take 17.2 mg by [...] instructed two times a day. - Fish Oil-Marion-3 Fatty Acids (FISH OIL) 340-1,000 mg cap [...] self-administration) - (more content not included)... Normal [facility] Colonoscopy Reporton 025 Colonoscopy Report Normal [facility] EGD Reporton 10-20-2024 EGD Report Normal [facility] Gl[facility] measurement at [facility] deOrdered By: Mata Pastor on 10-20-2024 Bedside Glucose (Misc Panel) 79 mg/dL 74-106 [facility] Comment on above: MANAGEMENT OF PATIEN T CARE PER NURSING PROTOCOL Glucose [Mass/Vol] 79 mg/dL 74-106 [facility] Comment on above: MANAGEMENT OF PATIEN T CARE PER NURSING PROTOCOL Immunohistochemical Stainson 10-20-2024 Immunohistochemical Stains [facility] Comment on above: Performed By: #### P IMCA ####[facility] [address] [place], [address] MR/POSTOP.ANEon 10-20-2024 MR/POSTOP.ANE [facility] MR/SZEXHFDH5yt 10-20-2024 MR/POSTOPAN2 [facility] MR/PAT.ANEon 10-18-2024 MR/PAT.ANE [facility] Gastroenterology Visit Repor ton 07-13-2024 Gastroenterology Visit Report Normal [facility] 12 Lead EKG performed by [facility] on 05-10-2024 12 Lead EKG performed by [facility] Cardiology Visit Reporton Cardiology Visit Report Normal [facility] 12 Lead EKGon 03-31-2024 12 Lead EKG Normal [facility] 12 Lead EKG Normal [facility] Basic Metabolic Profile (BMP )on 03-31-2024 BUN/CRE 19.0 RATIO Normal 10-20 [facility] Comment on above: Performed By: #### L 501.5200, L100.0100, L500.2500 ####[facility] [address] [place], [address] CA,Total 9.3 mg/dL Normal 8.5-10.1 [facility] Comment on above: Performed By: #### L 501.5200, L100.0100, L500.2500 ####[facility] [address] [place], [address] Chloride [Moles/Vol] 100 mmol/L Normal 98-107 [facility] Comment on above: Performed By: #### L 501.5200, L100.0100, L500.2500 ####[facility] [address] [place], [address] CO2 [Moles/Vol] 31.0 mmol/L Normal 21.0-32.0 [facility] Comment on above: Performed By: #### L 501.5200, L100.0100, L500.2500 ####[facility] [address] [place], [address] Creatinine [Mass/Vol] 0.74 mg/dL Normal 0.70-1.30 [facility] Comment on above: Result Comment: The validity of the calculated GFR GFRAA in patients over70 years has not been determined. Clinical correlation isessential. Performed By: #### L 501.5200, L100.0100, L500.2500 ####[facility] [address] [place], [address] ECRCL 163.20 ml/min Normal [facility] Comment on above: Performed By: #### L 501.5200, L100.0100, L500.2500 ####[facility] [address] [place], [address] EST GFR - AA 140 mL/min Normal >60 [facility] Comment on above: Result Comment: Afri can [place] GFR Calc Performed By: #### L 501.5200, L100.0100, L500.2500 ####[facility] [address] [place], [address] GAP 6 Normal 5-15 [facility] Comment on above: Performed By: #### L 501.5200, L100.0100, L500.2500 ####[facility] [address] [place], [address] GFR/1.73 sq M.predicted among non-blacks MDRD (S/P/Bld) [Vol rate/Area] 116 mL/min/{1.73_m2} Normal >60 [facility] Comment on above: Result Comment: Non- GFR Calc Performed By: #### L 501.5200, L100.0100, L500.2500 ####[facility] [address] [place], [address] Glucose [Mass/Vol] 118 mg/dL High 74-106 [facility] Comment on above: Result Comment: Fast ing Glucose result from 100 to 125 mg/dLsuggests IMPAIRED HOMEOSTASIS per A.D.A. criteria. Performed By: #### L 501.5200, L100.0100, L500.2500 ####[facility] [address] [place], [address] Potassium [Moles/Vol] 4.6 mmol/L Normal 3.5-5.1 [facility] Comment on above: Performed By: #### L 501.5200, L100.0100, L500.2500 ####[facility] [address] [place], [address] Sodium [Moles/Vol] 137 mmol/L Normal 136-145 [facility] Comment on above: Performed By: #### L 501.5200, L100.0100, L500.2500 ####[facility] [address] [place], [address] Urea nitrogen [Mass/Vol] 14 mg/dL Normal 7-18 [facility] Comment on above: Performed By: #### L 501.5200, L100.0100, L500.2500 ####[facility] [address] [place], [address] Bedside Glucoseon 03-31-2024 FINGERSTICK GLU 124 mg/dL High 74-106 [facility] Comment on above: Result Comment: MELI CLINTON OF PATIENT CARE PER NURSING PROTOCOL Performed By: #### L 501.080 ####[facility] [address] [place], [address] CBC W/Diff, Automatedon Absolute Lymph 2.00 X10 3/uL Normal 0.83-4.51 [facility] Comment on above: Performed By: #### L 501.5200, L100.0100, L500.2500 ####[facility] [address] [place], [address] Absolute Neut 7.4 X10 3/uL Normal 2.0-7.7 [facility] Comment on above: Result Comment: NO S PEC RECEIVED REORDER IF INDICATED Performed By: #### L 501.5200, L100.0100, L500.2500 ####[facility] [address] [place], [address] Basophils/100 WBC (Bld) 0.5 % Normal 0-1 [facility] Comment on above: Performed By: #### L 501.5200, L100.0100, L500.2500 ####[facility] [address] [place], [address] Eosinophils/100 WBC (Bld) 4.9 % Normal 0-5 [facility] Comment on above: Performed By: #### L 501.5200, L100.0100, L500.2500 ####[facility] [address] [place], [address] Erythrocyte distribution width (RBC) [Ratio] 16.4 % High 11.6-14.6 [facility] Comment on above: Result Comment: NO S PEC RECEIVED REORDER IF INDICATED Performed By: #### L 501.5200, L100.0100, L500.2500 ####[facility] [address] [place], [address] Hematocrit (Bld) [Volume fraction] 39.6 % Low 40-54 [facility] Comment on above: Result Comment: NO S PEC RECEIVED REORDER IF INDICATED Performed By: #### L 501.5200, L100.0100, L500.2500 ####[facility] [address] [place], [address] Hemoglobin (Bld) [Mass/Vol] 11.7 g/dL Low 13.0-16.5 [facility] Comment on above: Result Comment: NO S PEC RECEIVED REORDER IF INDICATED Performed By: #### L 501.5200, L100.0100, L500.2500 ####[facility] [address] [place], [address] IG% 0.500 Normal 0.0-0.9 [facility] Comment on above: Result Comment: IG% - Immature Granulocytes (promyelocytes, myelocytes andmetamyelocytes) > 1% indicates that a LEFT SHIFT is Present. Performed By: #### L 501.5200, L100.0100, L500.2500 ####[facility] [address] [place], [address] Lymphocytes/100 WBC (Bld) 18.3 % Low 19-41 [facility] Comment on above: Performed By: #### L 501.5200, L100.0100, L500.2500 ####[facility] [address] [place], [address] MCH (RBC) [Entitic mass] 25.7 pg Low 27.0-32.0 [facility] Comment on above: Result Comment: NO S PEC RECEIVED REORDER IF INDICATED Performed By: #### L 501.5200, L100.0100, L500.2500 ####[facility] [address] [place], [address] MCHC (RBC) [Mass/Vol] 29.5 g/dL Low 32-36 [facility] Comment on above: Result Comment: NO S PEC RECEIVED REORDER IF INDICATED Performed By: #### L 501.5200, L100.0100, L500.2500 ####[facility] [address] [place], [address] MCV (RBC) [Entitic vol] 86.8 fL Normal 80-94 [facility] Comment on above: Result Comment: NO S PEC RECEIVED REORDER IF INDICATED Performed By: #### L 501.5200, L100.0100, L500.2500 ####[facility] [address] [place], [address] Monocytes/100 WBC (Bld) 8.1 % Normal 0-10 [facility] Comment on above: Performed By: #### L 501.5200, L100.0100, L500.2500 ####[facility] [address] [place], [address] Neutrophils/100 WBC (Bld) 67.7 % Normal 47-70 [facility] Comment on above: Result Comment: NO S PEC RECEIVED REORDER IF INDICATED Performed By: #### L 501.5200, L100.0100, L500.2500 ####[facility] [address] [place], [address] Nucleated RBC (Bld) [#/Vol] 0 10*3/uL Normal 0-5 [facility] Comment on above: Performed By: #### L 501.5200, L100.0100, L500.2500 ####[facility] [address] [place], [address] Platelet mean volume (Bld) [Entitic vol] 10.1 fL Normal 6.2-12.0 [facility] Comment on above: Performed By: #### L 501.5200, L100.0100, L500.2500 ####[facility] [address] [place], [address] Platelets (Bld) [#/Vol] 157 10*3/uL Normal 150-450 [facility] Comment on above: Result Comment: NO S PEC RECEIVED REORDER IF INDICATED Performed By: #### L 501.5200, L100.0100, L500.2500 ####[facility] [address] [place], [address] RBC (Bld) [#/Vol] 4.56 10*6/uL Low 4.6-6.2 [facility] Comment on above: Result Comment: NO S PEC RECEIVED REORDER IF INDICATED Performed By: #### L 501.5200, L100.0100, L500.2500 ####[facility] [address] [place], [address] RDW SD 52.4 fl High 35.1-43.9 [facility] Comment on above: Result Comment: NO S PEC RECEIVED REORDER IF INDICATED Performed By: #### L 501.5200, L100.0100, L500.2500 ####[facility] [address] [place], [address] WBC (Bld) [#/Vol] 10.9 10*3/uL Normal 4.4-11.0 [facility] Comment on above: Result Comment: NO S PEC RECEIVED REORDER IF INDICATED Performed By: #### L 501.5200, L100.0100, L500.2500 ####[facility] [address] [place], [address] Discharge Instructionon 100 Discharge Instruction Normal [facility] Magnesiumon 03-31-2024 Magnesium [Mass/Vol] 2.0 mg/dL Normal 1.6-2.6 [facility] Comment on above: Performed By: #### L 501.5200, L100.0100, L500.2500 ####[facility] [address] [place], [address] 12 Lead EKGon 03-30-2024 12 Lead EKG Normal [facility] 12 Lead EKG Normal [facility] CBC W/Diff, Automatedon Absolute Neut Normal 2.0-7.7 [facility] Comment on above: Result Comment: Canc elled via OM: adusting time per Dr. Weinstein Performed By: #### L 100.0100 ####[facility] [address] [place], [address] HCT Normal 40-54 [facility] Comment on above: Result Comment: Canc elled via OM: adusting time per Dr. Weinstein Performed By: #### L 100.0100 ####[facility] [address] [place], [address] HGB Normal 13.0-16.5 [facility] Comment on above: Result Comment: Canc elled via OM: adusting time per Dr. Weinstein Performed By: #### L 100.0100 ####[facility] [address] [place], [address] MCH Normal 27.0-32.0 [facility] Comment on above: Result Comment: Canc elled via OM: adusting time per Dr. Weinstein Performed By: #### L 100.0100 ####[facility] [address] [place], [address] MCHC Normal 32-36 [facility] Comment on above: Result Comment: Canc elled via OM: adusting time per Dr. Wienstein Performed By: #### L 100.0100 ####[facility] [address] [place], [address] MCV Normal 80-94 [facility] Comment on above: Result Comment: Canc elled via OM: adusting time per Dr. Weinstein Performed By: #### L 100.0100 ####[facility] [address] [place], [address] NEUT% Normal 47-70 [facility] Comment on above: Result Comment: Canc elled via OM: adusting time per Dr. Weinstein Performed By: #### L 100.0100 ####[facility] [address] [place], [address] PLT Normal 150-450 [facility] Comment on above: Result Comment: Canc elled via OM: adusting time per Dr. Weinstein Performed By: #### L 100.0100 ####[facility] [address] [place], [address] RBC Normal 4.6-6.2 [facility] Comment on above: Result Comment: Canc elled via OM: adusting time per Dr. Weinstein Performed By: #### L 100.0100 ####[facility] [address] [place], [address] RDW CV Normal 11.6-14.6 [facility] Comment on above: Result Comment: Canc elled via OM: adusting time per Dr. Weinstein Performed By: #### L 100.0100 ####[facility] [address] [place], [address] RDW SD Normal 35.1-43.9 [facility] Comment on above: Result Comment: Canc elled via OM: adusting time per Dr. Weinstein Performed By: #### L 100.0100 ####[facility] [address] [place], [address] WBC Normal 4.4-11.0 [facility] Comment on above: Result Comment: Canc elled via OM: adusting time per Dr. Weinstein Performed By: #### L 100.0100 ####[facility] [address] [place], [address] 12 Lead EKGon 03-29-2024 12 Lead EKG Normal [facility] Bedside Glucoseon 03-29-2024 FINGERSTICK GLU 158 mg/dL High 74-106 [facility] Comment on above: Result Comment: MELI CLINTON OF PATIENT CARE PER NURSING PROTOCOL Performed By: #### L 501.080 ####[facility] [address] [place], [address] Consultation - Cardiologyon 03-29-2024 Consultation - Cardiology Normal [facility] PT D/C Summary (1)on 03-10- 024 PT D/C Summary (1) Normal [facility] Cardiology Visit Reporton Cardiology Visit Report Normal [facility] Inital Evaluation (1) - PTon 01-29-2024 Inital Evaluation (1) - PT Normal [facility] CNCOon 01-21-2024 CNCO Letter Text Normal [facility] Basic Metabolic Profile (BMP )on 01-05-2024 BUN Normal - [facility] Comment on above: Result Comment: Canc elled via OM: Order cancelled - Patient discharged Performed By: #### L 100.0100, L500.2500 ####[facility] [address] [place], [address] BUN/CRE Normal - [facility] Comment on above: Result Comment: Canc elled via OM: Order cancelled - Patient discharged Performed By: #### L 100.0100, L500.2500 ####[facility] [address] [place], [address] CA,Total Normal 8.5-10.1 [facility] Comment on above: Result Comment: Canc elled via OM: Order cancelled - Patient discharged Performed By: #### L 100.0100, L500.2500 ####[facility] [address] [place], [address] CL Normal 98-107 [facility] Comment on above: Result Comment: Canc elled via OM: Order cancelled - Patient discharged Performed By: #### L 100.0100, L500.2500 ####[facility] [address] [place], [address] CO2 Normal 21.0-32.0 [facility] Comment on above: Result Comment: Canc elled via OM: Order cancelled - Patient discharged Performed By: #### L 100.0100, L500.2500 ####[facility] [address] [place], [address] CREAT,SERUM Normal 0.70-1.30 [facility] Comment on above: Result Comment: Canc elled via OM: Order cancelled - Patient discharged Performed By: #### L 100.0100, L500.2500 ####[facility] [address] [place], [address] EST GFR Normal >60 [facility] Comment on above: Result Comment: Canc elled via OM: Order cancelled - Patient discharged Performed By: #### L 100.0100, L500.2500 ####[facility] [address] [place], [address] EST GFR - AA Normal >60 [facility] Comment on above: Result Comment: Canc elled via OM: Order cancelled - Patient discharged Performed By: #### L 100.0100, L500.2500 ####[facility] [address] [place], [address] GAP Normal 5-15 [facility] Comment on above: Result Comment: Canc elled via OM: Order cancelled - Patient discharged Performed By: #### L 100.0100, L500.2500 ####[facility] [address] [place], [address] GLU Normal 74-106 [facility] Comment on above: Result Comment: Canc elled via OM: Order cancelled - Patient discharged Performed By: #### L 100.0100, L500.2500 ####[facility] [address] [place], [address] Potassium Normal 3.5-5.1 [facility] Comment on above: Result Comment: Canc elled via OM: Order cancelled - Patient discharged Performed By: #### L 100.0100, L500.2500 ####[facility] [address] [place], [address] Basic Metabolic Profile (BMP) Normal 136-145 [facility] Comment on above: Result Comment: Canc elled via OM: Order cancelled - Patient discharged Performed By: #### L 100.0100, L500.2500 ####[facility] [address] [place], [address] CBC W/Diff, Automatedon 07-1 Absolute Neut Normal 2.0-7.7 [facility] Comment on above: Result Comment: Canc elled via OM: Order cancelled - Patient discharged Performed By: #### L 100.0100, L500.2500 ####[facility] [address] [place], [address] HCT Normal 40-54 [facility] Comment on above: Result Comment: Canc elled via OM: Order cancelled - Patient discharged Performed By: #### L 100.0100, L500.2500 ####[facility] [address] [place], [address] HGB Normal 13.0-16.5 [facility] Comment on above: Result Comment: Canc elled via OM: Order cancelled - Patient discharged Performed By: #### L 100.0100, L500.2500 ####[facility] [address] [place], [address] MCH Normal 27.0-32.0 [facility] Comment on above: Result Comment: Canc elled via OM: Order cancelled - Patient discharged Performed By: #### L 100.0100, L500.2500 ####[facility] [address] [place], [address] MCHC Normal 32-36 [facility] Comment on above: Result Comment: Canc elled via OM: Order cancelled - Patient discharged Performed By: #### L 100.0100, L500.2500 ####[facility] [address] [place], [address] MCV Normal 80-94 [facility] Comment on above: Result Comment: Canc elled via OM: Order cancelled - Patient discharged Performed By: #### L 100.0100, L500.2500 ####[facility] [address] [place], [address] NEUT% Normal 47-70 [facility] Comment on above: Result Comment: Canc elled via OM: Order cancelled - Patient discharged Performed By: #### L 100.0100, L500.2500 ####[facility] [address] [place], [address] PLT Normal 150-450 [facility] Comment on above: Result Comment: Canc elled via OM: Order cancelled - Patient discharged Performed By: #### L 100.0100, L500.2500 ####[facility] [address] [place], [address] RBC Normal 4.6-6.2 [facility] Comment on above: Result Comment: Canc elled via OM: Order cancelled - Patient discharged Performed By: #### L 100.0100, L500.2500 ####[facility] [address] [place], [address] RDW CV Normal 11.6-14.6 [facility] Comment on above: Result Comment: Canc elled via OM: Order cancelled - Patient discharged Performed By: #### L 100.0100, L500.2500 ####[facility] [address] [place], [address] RDW SD Normal 35.1-43.9 [facility] Comment on above: Result Comment: Canc elled via OM: Order cancelled - Patient discharged Performed By: #### L 100.0100, L500.2500 ####[facility] [address] [place], [address] WBC Normal 4.4-11.0 [facility] Comment on above: Result Comment: Canc elled via OM: Order cancelled - Patient discharged Performed By: #### L 100.0100, L500.2500 ####[facility] [address] [place], [address] CNPNon 11-26-2023 CNPN Telephone ([facility]) -------- DERRELL HOYT ([id number]) 1965 M Date Time Provider Department 11/26/23 BOB DU [facility] During your visit today, we recorded the following information about you: Bob Du, SERVICES MANAGER.DETECTIVE [place] 11/26/2023 3:10 PM Signed Patient seen by Dr. Arroyo at [facility] for RVOT [place]. He was sent home [...] instructed two times a day. - Fish Oil-Marion-3 Fatty Acids (FISH OIL) 340-1,000 mg cap [...] once daily (more content not included)... Normal [facility] Basic metabolic 2000 panelon 11-22-2023 Anion gap [Moles/Vol] 3 mmol/L Low 5-16 [facility] Comment on above: Order Comment: Speci men Type: BLOOD SPECIMEN Ordering Facility: [facility] Address: [address] [place] [address] Performed By: #### 3 4528-0, 03975-5 #### [facility] CLIA [id number] [address] [place] [address] [place] Calcium [Mass/Vol] 8.4 mg/dL Low 8.5-10.5 [facility] Comment on above: Order Comment: Speci men Type: BLOOD SPECIMEN Ordering Facility: [facility] Address: [address] [place] [address] Performed By: #### 3 4528-0, 86200-9 #### [facility] CLIA [id number] [address] [place] [address] [place] Chloride [Moles/Vol] 104 mmol/L Normal 98-107 [facility] Comment on above: Order Comment: Speci men Type: BLOOD SPECIMEN Ordering Facility: [facility] Address: [address] [place] [id number] Performed By: #### 3 4528-0, 33106-2 #### [facility] CLIA [id number] [address] [place] [address] [place] CO2 [Moles/Vol] 32 mmol/L Normal 21-32 [facility] Comment on above: Order Comment: Speci men Type: BLOOD SPECIMEN Ordering Facility: [facility] Address: [address] [place] [address] Performed By: #### 3 4528-0, 13551-0 #### [facility] CLIA [id number] [address] [place] [address] [place] Creatinine [Mass/Vol] 0.61 mg/dL Normal 0.50-1.40 [facility] Comment on above: Order Comment: Yogi plascencia Type: BLOOD SPECIMEN Ordering Facility: [facility] Address: [address] [place] [address] Result Comment: Diane ents receiving either N-Acetylcysteine (NAC) or Metamizole prior to venipuncture, may have falsely depressed results. Performed By: #### 3 4528-0, 90754-3 #### [facility] CLIA [id number] [address] [place] [address] [place] [facility] [place] Creatinine and Glomerular filtration rate.predicted panel (S/P/Bld) 111 mL/min/1.73m??? Normal >=60 [facility] Comment on above: Order Comment: Yogi plascencia Type: BLOOD SPECIMEN Ordering Facility: [facility] Address: [address] [place] [address] Result Comment: Sudha mated Glomerular Filtration Rate [...] actual GFR. Performed By: #### 3 4528-0, 76078-6 #### [facility] CLIA [id number] [address] [place], [place] [address] [place] Glucose [Mass/Vol] 134 mg/dL High 70-100 [facility] Comment on above: Order Comment: Yogi plascencia Type: BLOOD SPECIMEN Ordering Facility: [facility] Address: [address] [place] [address] Result Comment: The [place] Diabetes Association (ADA) provides guidance for cutoff [...] Standards of Medical Care in Diabetes 2016, [place] [employer]. Diabetes Care. 2016.39(Suppl 1). Results may be falsely elevated after the administration of Sulfapyridine. Results may be falsely depressed after the administration of Sulfasalazine. Performed By: #### 3 4528-0, 51324-9 #### [facility] CLIA [id number] [address] [place] [address] [place] Potassium [Moles/Vol] 4.2 mmol/L Normal 3.5-5.1 [facility] Comment on above: Order Comment: Yogi plascencia Type: BLOOD SPECIMEN Ordering Facility: [facility] Address: [address] [place] [address] Performed By: #### 3 4528-0, 83476-7 #### [facility] CLIA [id number] [address] [place] [address] [place] Sodium [Moles/Vol] 139 mmol/L Normal 136-145 [facility] Comment on above: Order Comment: Yogi plascencia Type: BLOOD SPECIMEN Ordering Facility: [facility] Address: [address] [place] [address] Performed By: #### 3 4528-0, 60158-1 #### [facility] CLIA [id number] [address] [place] [address] [place] Urea nitrogen [Mass/Vol] 8 mg/dL Normal 7-26 [facility] Comment on above: Order Comment: Elpidioi temo Type: BLOOD SPECIMEN Ordering Facility: [facility] Address: [address] [place] [address] Performed By: #### 3 4528-0, 59413-0 #### [facility] CLIA [id number] [address] [place] [address] [place] CNDSon 11-22-2023 CNDS HNO ID: [id number] Author: AIXA PAEZ DO Service: Hospital Medicine [...] Doctor: Aixa Paez DO Primary Care Provider: Nain Paez MD My Medical Team Members: Treatment [...] No pending results Discharge Disposition Discharge Disposition: Care Home For Intermediate Care/Assisted Living Activity When You [...] day monitor When: In: Chidi Arroyo MD [phone] [facility] RADHA BARNETT [facility] [address] PCP Requested Referral Additional Provider to Provider Information: Treatment Team: Attending Provider: Aixa Paez DO Consulting: Chidi Arroyo MD Attending: MR NILESH CALVIN Transitions of Care Critical Issues: SPECIALIST FOLLOW-UP: Cardiology LABS AND PROCEDURES PENDING AT DISCHARGE: No pending results. FOLLOW-UP APPOINTMENTS ALREADY SCHEDULED WITH A [facility] PROVIDER: No future appointments. ALLERGIES No [...] this Lancet (more content not included)... Normal [facility] ECG COMPLETEon 11-22-2023 ECG COMPLETE Ventricular Rate : 8 0 BPM Atrial Rate : 80 BPM P-R Interval : 190 ms QRS Duration : 92 ms Q-T Interval : 366 ms QTC Calculation(Bazett) : 422 ms Calculated P Lagrange : 5 degrees Calculated R Lagrange : 4 degrees Calculated T Lagrange : 28 degrees Normal sinus rhythm EKG done during metoprolol tartrate 75 mg po q12 hrs Normal ECG When compared with ECG of 21-Nov-2023 06:21, No significant change was found Confirmed by CHIDI ARROYO MD ([id number]) on 11/22/2023 9:45:33 AM NAME : DERRELL HOYT PID : [id number] : 1965 Gender : Male Race : Unknown ORD : [id number] Procedure Date : Nov 22 2023 06:46:11 Edit Date : Nov 22 2023 09:45:35 Diagnosis: Normal sinus rhythm EKG done during metoprolol tartrate 75 mg po q12 hrs Normal ECG When compared with ECG of 21-Nov-2023 06:21, No significant change was found Confirmed by CHIDI ARROYO MD ([id number]) on 11/22/2023 9:45:33 AM Test Reason : RT Location : 13 : CCU [id number] Overread By : CHDII ARROYO MD Edited By : CHIDI ARROYO MD Referred By : GALINA OVALLE Acquired by : MIGUEL YODER [facility] Magnesium SerPl-ncon 11-21 Magnesium [Mass/Vol] 2.1 mg/dL Normal 1.6-2.6 [facility] Comment on above: Order Comment: Speci men Type: BLOOD SPECIMEN Ordering Facility: [facility] Address: [address] [place] [address] Performed By: #### 3 4528-0, 53488-6 #### [facility] CLIA [id number] [address] [place] [address] [place] BRIEF OP NOTon 11-21-2023 BRIEF OP NOT HNO ID: [id number] Author: CHIDI BOYER MD Service: Cardiovascular Medicine [...] s/p stent of the mid LAD performed [facility] 01/18/2021 (images available and single but no report available) who initially presented to [facility] with complaints of lightheadedness and dizziness [...] with Dr. Arroyo or his previous EP sat tutor at [facility] 5. Can be seen by either [facility] or [facility] sat tutor approximately once yearly if requested. Chidi Boyer MD Normal [facility] Basic metabolic 2000 panelon 11-21-2023 Anion gap [Moles/Vol] 3 mmol/L Low 5-16 [facility] Comment on above: Order Comment: Speci men Type: BLOOD SPECIMEN Ordering Facility: [facility] Address: [address] [place] [address] Performed By: #### 3 4528-0, 70352-3 #### [facility] CLIA [id number] [address] [place] [address] [place] Calcium [Mass/Vol] 8.7 mg/dL Normal 8.5-10.5 [facility] Comment on above: Order Comment: Speci men Type: BLOOD SPECIMEN Ordering Facility: [facility] Address: [address] [place] [address] Performed By: #### 3 4528-0, 87999-9 #### [facility] CLIA [id number] [address] [place] [address] [place] Chloride [Moles/Vol] 103 mmol/L Normal 98-107 [facility] Comment on above: Order Comment: Speci men Type: BLOOD SPECIMEN Ordering Facility: [facility] Address: [address] [place] [address] Performed By: #### 3 4528-0, 71579-3 #### [facility] CLIA [id number] [address] [place] [address] [place] CO2 [Moles/Vol] 30 mmol/L Normal 21-32 [facility] Comment on above: Order Comment: Speci men Type: BLOOD SPECIMEN Ordering Facility: [facility] Address: [address] [place] [address] Performed By: #### 3 4528-0, 80903-7 #### [facility] CLIA [id number] [address] [place] [address] [place] Creatinine [Mass/Vol] 0.75 mg/dL Normal 0.50-1.40 [facility] Comment on above: Order Comment: Speci men Type: BLOOD SPECIMEN Ordering Facility: [facility] Address: [address] [place] [address] Result Comment: Diane ents receiving either N-Acetylcysteine (NAC) or Metamizole prior to venipuncture, may have falsely depressed results. Performed By: #### 3 4528-0, 20071-9 #### [facility] CLIA [id number] [address] [place] [address] [place] Creatinine and Glomerular filtration rate.predicted panel (S/P/Bld) 105 mL/min/1.73m??? Normal >=60 [facility] Comment on above: Order Comment: Yogi plascencia Type: BLOOD SPECIMEN Ordering Facility: [facility] Address: [address] [place] [address] Result Comment: Sudha mated Glomerular Filtration Rate [...] actual GFR. Performed By: #### 3 4528-0, 98560-3 #### [facility] CLIA [id number] [address] [place] [address] [place] Glucose [Mass/Vol] 145 mg/dL High 70-100 [facility] Comment on above: Order Comment: Yogi plascencia Type: BLOOD SPECIMEN Ordering Facility: [facility] Address: [address] [place] [address] Result Comment: The [place] Diabetes Association (ADA) provides guidance for cutoff [...] Standards of Medical Care in Diabetes 2016, [place] [employer]. Diabetes Care. 2016.39(Suppl 1). Results may be falsely elevated after the administration of Sulfapyridine. Results may be falsely depressed after the administration of Sulfasalazine. Performed By: #### 3 4528-0, 62519-1 #### [facility] CLIA [id number] [address] [place] [address] [place] Potassium [Moles/Vol] 4.0 mmol/L Normal 3.5-5.1 [facility] Comment on above: Order Comment: Speci men Type: BLOOD SPECIMEN Ordering Facility: [facility] Address: [address] [place] [address] Performed By: #### 3 4528-0, 58528-8 #### [facility] CLIA [id number] [address] [place] [address] [place] Sodium [Moles/Vol] 136 mmol/L Normal 136-145 [facility] Comment on above: Order Comment: Speci men Type: BLOOD SPECIMEN Ordering Facility: [facility] Address: [address] [place] [address] Performed By: #### 3 4528-0, 88026-4 #### [facility] CLIA [id number] [address] [place] [address] [place] Urea nitrogen [Mass/Vol] 8 mg/dL Normal 7-26 [facility] Comment on above: Order Comment: Speci men Type: BLOOD SPECIMEN Ordering Facility: [facility] Address: [address] [place] [address] Performed By: #### 3 4528-0, 70261-5 #### [facility] CLIA [id number] [address] [place] [address] [place] CARD CATH DIAGNOSTICon 11-20 CARD CATH DIAGNOSTIC Site Id: [facility] Lab #: DEFAULT Study Date: 11/21/2023 Start Time: End Time: Name Duty Chidi Boyer MD PROC 1 Mayuri Sapp(R) PROC SCRUB 1 Kia Muhammad PROC SCRUB 2 Yadira Maria RN PROC [...] s/p stent of the mid LAD performed [facility] 01/18/2021 (images available and single but no report available) who initially presented to [facility] with complaints of lightheadedness and dizziness [...] with Dr. Arroyo or his previous EP sat tutor at [facility] 5. Can be seen by either [facility] or [facility] sat tutor approximately once yearly if requested. + + HEMODYNAMICS - XPER + + + +------ +-----+-------+-----+--- ---+------+ Measurement Name Sys Devika End Devika Mean A Wave V Wave + +------ +-----+-------+-----+--- ---+------+ AO 102.00 75.00 87.00 + +------ +-----+-------+-----+--- ---+------+ Oximetry: +----+----+ +--+---+--+ Time Site O2 Saturation O2 PO2 HB +----+----+ +--+---+--+ + + ADVERSE OUTCOME(s)/COMPLICATION( s) + + None + -------+ PROCEDURAL & TECHNICAL DETAILS + -------+ Date Time Description 11/21/2023 12:00:00 AM D [...] Dose 2 (more content not included)... Normal [facility] CBC panel Auto (Bld)on 11-20 Erythrocyte distribution width (RBC) [Ratio] 17.5 % High 11.5-15.0 [facility] Comment on above: Order Comment: Speci men Type: BLOOD SPECIMEN Ordering Facility: [facility] Address: [address] [place] [address] Performed By: #### 3 4528-0, 31474-1 #### [facility] CLIA [id number] [address] [place] [address] [place] Hematocrit (Bld) [Volume fraction] 37.8 % Low 39.0-51.0 [facility] Comment on above: Order Comment: Speci men Type: BLOOD SPECIMEN Ordering Facility: [facility] Address: [address] [place] [address] Performed By: #### 3 4528-0, 22334-4 #### [facility] CLIA [id number] [address] [place] [address] [place] Hemoglobin (Bld) [Mass/Vol] 11.2 g/dL Low 13.0-17.0 [facility] Comment on above: Order Comment: Speci men Type: BLOOD SPECIMEN Ordering Facility: [facility] Address: [address] [place] [address] Performed By: #### 3 4528-0, 73641-1 #### [facility] CLIA [id number] [address] [place] [address] [place] OF [place] MCH (RBC) [Entitic mass] 24.0 pg Low 26.0-34.0 [facility] Comment on above: Order Comment: Speci men Type: BLOOD SPECIMEN Ordering Facility: [facility] Address: [address] [place] [address] Performed By: #### 3 4528-0, 45284-9 #### [facility] CLIA [id number] [address] [place] [address] [place] MCHC (RBC) [Mass/Vol] 29.6 g/dL Low 30.5-36.0 [facility] Comment on above: Order Comment: Speci men Type: BLOOD SPECIMEN Ordering Facility: [facility] Address: [address] [place] [address] Performed By: #### 3 4528-0, 75470-6 #### [facility] CLIA [id number] [address] [place] [address] [place] MCV (RBC) [Entitic vol] 81.1 fL Normal 80.0-100.0 M [facility] Comment on above: Order Comment: Speci men Type: BLOOD SPECIMEN Ordering Facility: [facility] Address: [address] [place] [address] Performed By: #### 3 4528-0, 52381-5 #### [facility] CLIA [id number] [address] [place] [address] [place] Nucleated RBC (Bld) [#/Vol] 10*3/uL Normal <0.01 [facility] Comment on above: Order Comment: Speci men Type: BLOOD SPECIMEN Ordering Facility: [facility] Address: [address] [place] [address] Performed By: #### 3 4528-0, 06447-3 #### [facility] CLIA [id number] [address] [place] [address] [place] Platelet mean volume (Bld) [Entitic vol] 10.1 fL Normal 9.0-12.7 [facility] Comment on above: Order Comment: Speci men Type: BLOOD SPECIMEN Ordering Facility: [facility] Address: [address] [place] [address] Performed By: #### 3 4528-0, 36065-4 #### [facility] CLIA [id number] [address] [place] [address] [place] Platelets (Bld) [#/Vol] 179 10*3/uL Normal 150-400 [facility] Comment on above: Order Comment: Speci men Type: BLOOD SPECIMEN Ordering Facility: [facility] Address: [address] [place] [address] Performed By: #### 3 4528-0, 48233-3 #### [facility] CLIA [id number] [address] [place] [address] [place] RBC (Bld) [#/Vol] 4.66 10*6/uL Normal 4.20-6.00 [facility] Comment on above: Order Comment: Speci men Type: BLOOD SPECIMEN Ordering Facility: [facility] Address: [address] [place] [address] Performed By: #### 3 4528-0, 68216-2 #### [facility] CLIA [id number] [address] [place] [address] [facility] OF [place] WBC (Bld) [#/Vol] 12.39 10*3/uL High 3.70-11.00 [facility] Comment on above: Order Comment: Speci men Type: BLOOD SPECIMEN Ordering Facility: [facility] Address: [address] [place], [place] [address] [address] Performed By: #### 3 4528-0, 90704-2 #### [facility] CLIA [id number] [address] [place] [address] [facility] ECG COMPLETEon 11-21-2023 ECG COMPLETE Ventricular Rate : 8 0 BPM Atrial Rate : 80 BPM P-R Interval : 194 ms QRS Duration : 92 ms Q-T Interval : 376 ms QTC Calculation(Bazett) : 433 ms Calculated P Lagrange : 42 degrees Calculated R Lagrange : 7 degrees Calculated T Lagrange : 48 degrees Normal sinus rhythm Low voltage QRS Borderline ECG When compared with ECG of 20-Nov-2023 16:13, No PVC or ventricular couplets noted on current EKG Confirmed by JASON MORALES MD ([id number]) on 11/21/2023 4:48:08 PM NAME : DERRELL HOYT PID : [id number] : 1965 Gender : Male Race : Unknown ORD : [id number] Procedure Date : Nov 21 2023 06:21:33 Edit Date : Nov 21 2023 16:48:10 Diagnosis: Normal sinus rhythm Low voltage QRS Borderline ECG When compared with ECG of 20-Nov-2023 16:13, No PVC or ventricular couplets noted on current EKG Confirmed by JASON MORALES MD ([id number]) on 11/21/2023 4:48:08 PM Test Reason : RT Location : 13 : CCU CCU04 Overread By : JASON MORALES MD Edited By : JASON MORALES MD Referred By : GALINA OVALLE Acquired by : LAILA GRIER Normal [facility] Hepatic function 2000 panelo n 11-21-2023 Albumin [Mass/Vol] 3.4 g/dL Normal 3.2-5.0 [facility] Comment on above: Order Comment: Speci men Type: BLOOD SPECIMEN Ordering Facility: [facility] Address: [address] [place] [address] Performed By: #### 3 4528-0, 65135-5 #### [facility] CLIA [id number] [address] [place] [address] [place] ALP [Catalytic activity/Vol] 250 U/L High 45-117 [facility] Comment on above: Order Comment: Speci men Type: BLOOD SPECIMEN Ordering Facility: [facility] Address: [address] [place] [address] Performed By: #### 3 4528-0, 45339-0 #### [facility] CLIA [id number] [address] [place] [address] [place] ALT [Catalytic activity/Vol] 25 U/L Normal 13-61 [facility] Comment on above: Order Comment: Speci men Type: BLOOD SPECIMEN Ordering Facility: [facility] Address: [address] [place] [address] Result Comment: Resu lts may be falsely depressed after the administration of Sulfasalazine and/or Sulfapyridine. Performed By: #### 3 4528-0, 28423-3 #### [facility] CLIA [id number] [address] [place] [address] [place] AST [Catalytic activity/Vol] 32 U/L Normal 8-34 [facility] Comment on above: Order Comment: Speci men Type: BLOOD SPECIMEN Ordering Facility: [facility] Address: [address] [place] [address] Result Comment: Resu lts may be falsely depressed after the administration of Sulfasalazine and/or Sulfapyridine. Performed By: #### 3 4528-0, 03663-3 #### [facility] CLIA [id number] [address] [place] [address] [place] Bilirubin [Mass/Vol] 0.5 mg/dL Normal 0.2-1.0 [facility] Comment on above: Order Comment: Speci men Type: BLOOD SPECIMEN Ordering Facility: [facility] Address: [address] [place] [address] Performed By: #### 3 4528-0, 65892-1 #### [facility] CLIA [id number] [address] [place] [address] [place] Bilirubin.conjugated [Mass/Vol] 0.2 mg/dL Normal 0.0-0.4 [facility] Comment on above: Order Comment: Speci men Type: BLOOD SPECIMEN Ordering Facility: [facility] Address: [address] [place] [address] Performed By: #### 3 4528-0, 18517-5 #### [facility] CLIA [id number] [address] [place] [address] [place] Protein [Mass/Vol] 7.1 g/dL Normal 6.0-8.5 [facility] Comment on above: Order Comment: Speci men Type: BLOOD SPECIMEN Ordering Facility: [facility] Address: [address] [place] [address] Performed By: #### 3 4528-0, 88235-1 #### [facility] CLIA [id number] [address] [place] [address] [place] Magnesium SerPl-mCncon 11-20 Magnesium [Mass/Vol] 2.2 mg/dL Normal 1.6-2.6 [facility] Comment on above: Order Comment: Speci men Type: BLOOD SPECIMEN Ordering Facility: [facility] Address: [address] [place] [address] Performed By: #### 3 4528-0, 56844-1 #### [facility] CLIA [id number] [address] [place] [address] [place] Basic metabolic 2000 panelon 11-20-2023 Anion gap [Moles/Vol] 3 mmol/L Low 5-16 [facility] Comment on above: Order Comment: Speci men Type: BLOOD SPECIMENOrdering Facility: [facility] Address: [address] [place] [address] Performed By: #### 2 4321-2, , ####[facility]IA [id number] [place] [address] [place] Calcium [Mass/Vol] 8.7 mg/dL Normal 8.5-10.5 [facility] Comment on above: Order Comment: Speci men Type: BLOOD SPECIMENOrdering Facility: [facility] Address: [address] [place] [address] Performed By: #### 2 4321-2, 68742-9, ####[facility]ORY[facility]IA [id number] [place] [id number] [place] Chloride [Moles/Vol] 102 mmol/L Normal 98-107 [facility] Comment on above: Order Comment: Speci men Type: BLOOD SPECIMENOrdering Facility: [facility] Address: [address] [place] [address] Performed By: #### 2 432-2, , ####[facility]ORY[facility]IA [id number] [place] [id number] [place] CO2 [Moles/Vol] 32 mmol/L Normal 21-32 [facility] Comment on above: Order Comment: Speci men Type: BLOOD SPECIMENOrdering Facility: [facility] Address: [address] [place] [address] Performed By: #### 2 4321-2, , ####[facility]ORY[facility]IA [id number] [place] [id number] [place] Creatinine [Mass/Vol] 0.71 mg/dL Normal 0.50-1.40 [facility] Comment on above: Order Comment: Speci men Type: BLOOD SPECIMENOrdering Facility: [facility] Address: [address] [place] [address] Result Comment: Diane ents receiving either N-Acetylcysteine (NAC) or Metamizole prior to venipuncture, may have falsely depressed results. Performed By: #### 2 4321-2, , ####[facility]ORYCLIA [id number] [address] OF [place] Creatinine and Glomerular filtration rate.predicted panel (S/P/Bld) 106 mL/min/1.73m??? Normal >=60 [facility] Comment on above: Order Comment: Yogi plascencia Type: BLOOD SPECIMENOrdering Facility: [facility] Address: [address] [place] [address] Result Comment: Sudha mated Glomerular Filtration Rate [...] actual GFR. Performed By: #### 2 4321-2, 73984-1, 14588-0 ####[facility]ORYCLIA [id number] [place] [address] [place] Glucose [Mass/Vol] 145 mg/dL High 70-100 [facility] Comment on above: Order Comment: Yogi plascencia Type: BLOOD SPECIMENOrdering Facility: [facility] Address: [address] [place] [address] Result Comment: The [place] Diabetes Association (ADA) provides guidance for cutoff [...] Standards of Medical Care in Diabetes 2016, [place] Diabetes Association. Diabetes Care. 2016.39(Suppl 1). Results may be falsely elevated after the administration of Sulfapyridine. Results may be falsely depressed after the administration of Sulfasalazine. Performed By: #### 2 4321-2, 35772-0, ####[facility]ORYCLIA [id number] [place] [address] [place] Potassium [Moles/Vol] 4.5 mmol/L Normal 3.5-5.1 [facility] Comment on above: Order Comment: Speci men Type: BLOOD SPECIMENOrdering Facility: [facility] Address: [address] [place] [address] Performed By: #### 2 4321-2, 77979-6, ####[facility]ORYCLIA [id number] [place] [id number] [place] Sodium [Moles/Vol] 137 mmol/L Normal 136-145 [facility] Comment on above: Order Comment: Speci men Type: BLOOD SPECIMENOrdering Facility: [facility] Address: [address] [place] [address] Performed By: #### 2 4321-2, 49682-2, ####[facility]ORYCLIA [id number] [place] [id number] [place] Urea nitrogen [Mass/Vol] 8 mg/dL Normal 7-26 [facility] Comment on above: Order Comment: Speci men Type: BLOOD SPECIMENOrdering Facility: [facility] Address: [address] [place] [address] Performed By: #### 2 4321-2, 52760-9, ####[facility]ORYCLIA [id number] [place] [id number] [place] CBC panel Auto (Bld)on 11-19 Erythrocyte distribution width (RBC) [Ratio] 17.3 % High 11.5-15.0 [facility] Comment on above: Order Comment: Speci men Type: BLOOD SPECIMENOrdering Facility: [facility] Address: [address] [place] [address] Performed By: #### 5 8410-2 ####[facility]ORYCLIA [id number] [place] [id number] [place] Hematocrit (Bld) [Volume fraction] 37.5 % Low 39.0-51.0 [facility] Comment on above: Order Comment: Speci men Type: BLOOD SPECIMENOrdering Facility: [facility] Address: [address] [place] [address] Performed By: #### 5 8410-2 ####[facility]ORYCLIA [id number] [place] [address] [place] Hemoglobin (Bld) [Mass/Vol] 11.1 g/dL Low 13.0-17.0 [facility] Comment on above: Order Comment: Speci men Type: BLOOD SPECIMENOrdering Facility: [facility] Address: [address] [place] [address] Performed By: #### 5 8410-2 ####[facility]ORYCLIA [id number] [place] [address] [place] MCH (RBC) [Entitic mass] 23.6 pg Low 26.0-34.0 [facility] Comment on above: Order Comment: Speci men Type: BLOOD SPECIMENOrdering Facility: [facility] Address: [address] [place] [address] Performed By: #### 5 8410-2 ####[facility]ORYCLIA [id number] [place] [address] [place] MCHC (RBC) [Mass/Vol] 29.6 g/dL Low 30.5-36.0 [facility] Comment on above: Order Comment: Speci men Type: BLOOD SPECIMENOrdering Facility: [facility] Address: [address] [place], [place] [id number] Performed By: #### 5 8410-2 ####[facility]ORYCLIA [id number] [place] [address] [place] MCV (RBC) [Entitic vol] 79.6 fL Low 80.0-100.0 M [facility] Comment on above: Order Comment: Speci men Type: BLOOD SPECIMENOrdering Facility: [facility] Address: [address] [place] [address] Performed By: #### 5 8410-2 ####[facility]ORYCLIA [id number] [place] [id number] [place] Nucleated RBC (Bld) [#/Vol] 10*3/uL Normal <0.01 [facility] Comment on above: Order Comment: Speci men Type: BLOOD SPECIMENOrdering Facility: [facility] Address: [address] [place] [address] Performed By: #### 5 8410-2 ####[facility]ATORYCLIA [id number] [place] [address] [place] Platelet mean volume (Bld) [Entitic vol] 10.0 fL Normal 9.0-12.7 [facility] Comment on above: Order Comment: Speci men Type: BLOOD SPECIMENOrdering Facility: [facility] Address: [address] [place] [address] Performed By: #### 5 8410-2 ####[facility]ORYCLIA [id number] [place] [address] [place] Platelets (Bld) [#/Vol] 173 10*3/uL Normal 150-400 [facility] Comment on above: Order Comment: Speci men Type: BLOOD SPECIMENOrdering Facility: [facility] Address: [address] [place] [address] Performed By: #### 5 8410-2 ####[facility]ORYCLIA [id number] [place] [address] [place] RBC (Bld) [#/Vol] 4.71 10*6/uL Normal 4.20-6.00 [facility] Comment on above: Order Comment: Speci men Type: BLOOD SPECIMENOrdering Facility: [facility] Address: [address] [place] [address] Performed By: #### 5 8410-2 ####[facility]ORYCLIA [id number] [place] [id number] [place] WBC (Bld) [#/Vol] 9.70 10*3/uL Normal 3.70-11.00 [facility] Comment on above: Order Comment: Yogi temo Type: BLOOD SPECIMENOrdering Facility: [facility] Address: [address] [place] [id number] Performed By: #### 5 8410-2 ####[facility]ATORYCLIA [id number] [employer] [place] [id number] [facility] EKGon 11-20-2023 Electrocardiogram Ventricular Rate : 1 18 BPM Atrial Rate : 87 BPM P-R Interval : 212 ms QRS Duration : 88 ms Q-T Interval : 336 ms QTC Calculation(Bazett) : 470 ms Calculated P Lagrange : 55 degrees Calculated R Lagrange : 16 degrees Calculated T Lagrange : 57 degrees Sinus rhythm 1st degree AV block with frequent and consecutive Premature ventricular complexes Low voltage QRS Abnormal ECG When compared with ECG of 20-Nov-2023 09:06, Frequent PVC and PVC couplets noted on current EKG. Confirmed by JASON MORALES MD ([id number]) on 11/21/2023 4:43:02 PM NAME : DERRELL HOYT PID : [id number] : 1965 Gender : Male Race : [...] current EKG. Confirmed by JASON MORALES MD ([id number]) on 11/21/2023 4:43:02 PM Test Reason : RT Location : 13 : CCU CCU4 Overread By : JASON MORALES MD Edited By : JASON MORALES MD Referred By : CADY SANCHEZ Acquired by : PAULIE LICEA Normal [facility] HbA1c (Bld)on 11-20-2023 Average glucose Estimated from glycated hemoglobin (Bld) [Mass/Vol] 217 mg/dL [facility] Comment on above: Order Comment: Yogi temo Type: BLOOD SPECIMEN Ordering Facility: [facility] Address: [address] [place] [address] Result Comment: eAG: (Estimated average glucose) is a calculated value from HgbA1c and is sales representative malt liquors of the average blood glucose level in the last 2-3 month period. Performed By: #### 3 4528-0, 11768-9 #### [facility] CLIA [id number] [address] [place] [address] [place] HbA1c (Bld) [Mass fraction] 9.2 % High 4.3-5.6 [facility] Comment on above: Order Comment: Speci men Type: BLOOD SPECIMEN Ordering Facility: [facility] Address: [address] [place] [address] Result Comment: [place] Diabetes Association guidelines indicate that patients with HgbA1c in the range 5.7-6.4% are at increased risk for development of diabetes, and intervention by lifestyle modification may be beneficial. HgbA1c greater or equal to 6.5% is considered diagnostic of diabetes. Performed By: #### 3 4528-0, 68857-0 #### [facility] CLIA [id number] [address] [place] [address] [place] Lipid 1996 panelon 4 Cholesterol [Mass/Vol] 90 mg/dL Normal 0-199 [facility] Comment on above: Order Comment: Yogi plascencia Type: BLOOD SPECIMENOrdering Facility: [facility] Address: [address] [place] [address] Result Comment: <200 mg/dL, Desirable 200-239 mg/dL, Borderline high >239 mg/dL, High Performed By: #### 2 4321-2, 81869-9, ####[facility]ORYCLIA [id number] [address] STATES [place] Cholesterol in HDL [Mass/Vol] 24 mg/dL Low >40 [facility] Comment on above: Order Comment: Yogi plascencia Type: BLOOD SPECIMENOrdering Facility: [facility] Address: [address] [place] [address] Result Comment: 40-5 9 mg/dL, Acceptable >59 mg/dL, High: Negative risk factor for coronary heart disease <40 mg/dL, Low: Positive risk factor for coronary heart disease Performed By: #### 2 4321-2, 41353-7, ####[facility]ATORYCLIA [id number] [place] [address] [place] Cholesterol in LDL [Mass/Vol] 38 mg/dL Normal 0-129 [facility] Comment on above: Order Comment: Speci men Type: BLOOD SPECIMENOrdering Facility: [facility] Address: [address] [place] [address] Result Comment: <100 mg/dL, Optimal 100-129 mg/dL, Near optimal/above optimal 130-159 mg/dL, Borderline high 160-189 mg/dL, High >189 mg/dL, Very high Secondary prevention optimal LDL Cholesterol levels are recommended to be < 70 mg/dL Performed By: #### 2 4321-2, 67498-8, ####[facility]ATORYCLIA [id number] [place] [id number] [facility] Cholesterol in LDL/Cholesterol in HDL [Mass ratio] 1.58 {ratio} Normal <2.54 [facility] Comment on above: Order Comment: Speci men Type: BLOOD SPECIMENOrdering Facility: [facility] Address: [address] [place] [address] Result Comment: Refe renmike: 1. National Cholesterol Education Program ATP III Guideline At-A-Glance Quick Desk Reference: National Heart, Lung, and Blood [place]. National Institutes of Health. 2001: NIH Publication No. 01-3305. 2. An International Atherosclerosis Society position paper: global recommendations for the management of dyslipidemia: executive summary, Atherosclerosis. 2014: 232(2):410-413. Performed By: #### 2 4321-2, 65217-1, ####[facility]ATORYCLIA [id number] [place] [id number] [place] Cholesterol in VLDL [Mass/Vol] 28 mg/dL Normal <30 [facility] Comment on above: Order Comment: Speci men Type: BLOOD SPECIMENOrdering Facility: [facility] Address: [address] [place] [address] Performed By: #### 2 4321-2, 14290-1, ####[facility]ATORYCLIA [id number] [address] [place] Cholesterol non HDL [Mass/Vol] 66 mg/dL Normal <130 [facility] Comment on above: Order Comment: Speci men Type: BLOOD SPECIMENOrdering Facility: [facility] Address: [address] [place] [id number] Result Comment: <130 mg/dL, Optimal 130-159 mg/dL, Near optimal/above optimal 160-189 mg/dL, Borderline high 190-219 mg/dL, High >219 mg/dL, Very high Secondary prevention optimal non HDL Cholesterol levels are recommended to be <100 mg/dL Performed By: #### 2 4321-2, 11811-2, ####[facility]ATORYCLIA [id number] [address] [facility] Cholesterol.total/Dipti sterol in HDL [Mass ratio] 3.75 {ratio} Normal <5.10 [facility] Comment on above: Order Comment: Speci men Type: BLOOD SPECIMENOrdering Facility: [facility] Address: [address] [place] [address] Performed By: #### 2 4321-2, 36075-8, ####[facility]ATORYCLIA [id number] [address] [place] FASTING TIME 8 hours Normal [facility] Comment on above: Order Comment: Speci men Type: BLOOD SPECIMENOrdering Facility: [facility] Address: [address] [place] [address] Performed By: #### 2 4321-2, 92716-2, ####[facility]ATORYCLIA [id number] [place] [id number] [place] Triglyceride [Mass/Vol] 140 mg/dL Normal 30-149 M [facility] Comment on above: Order Comment: Speci men Type: BLOOD SPECIMENOrdering Facility: [facility] Address: [address] [place] [address] Result Comment: <150 mg/dL, Normal 150-199 mg/dL, Borderline high 200-499 mg/dL, High >499 mg/dL, Very high Patients receiving either N-Acetylcysteine (NAC) or Metamizole prior to venipuncture, may have falsely depressed results. Performed By: #### 2 4321-2, 44091-3, ####[facility]ATORYCLIA [id number] [place] [address] [facility] Magnesium SerPl-mCncon 11-19 Magnesium [Mass/Vol] 2.2 mg/dL Normal 1.6-2.6 [facility] Comment on above: Order Comment: Speci men Type: BLOOD SPECIMENOrdering Facility: [facility] Address: [address] [place] [address] Performed By: #### 2 4321-2, 81928-7, ####[facility] LAB[facility]ATORYCLIA [id number] [place] [address] [facility] NM CARDIAC PERF STRESS/PHARM on 11-20-2023 NM CARDIAC PERF STRESS/PHARM * * *Final Report* * * DATE OF EXAM: Nov 20 2023 10:40AM N 0006 - NM CARDIAC PERF STRESS/PHARM / PROCEDURE REASON: Chest pain/anginal equiv, high CAD risk, treadmill candidate * * * * Physician Interpretation * * * * Stress Wooling Machine Operator Report: [facility] Date of service: 11/20/2023 8:31:18 [...] later. See administered radiotracer and doses below. [facility] Date of service: 11/20/2023 8:31:18 [...] * * * -- Stress ECG Report: [facility] Date of service: 11/20/2023 8:31:18 AM Ordering physician: CADY SANCHEZ youth services specialist: Stephanie Flower Interpreting physician: Jason Morales [...] 138/75 mmHg. The double product achieved was 53343. Previ (more content not included)... Normal [facility] Urate SerPl-mCncon 4 Urate [Mass/Vol] 6.6 mg/dL High 2.6-6.0 [facility] Comment on above: Order Comment: Speci men Type: BLOOD SPECIMENOrdering Facility: [facility] Address: [address] [place] [address] Result Comment: Diane ents receiving Metamizole prior to venipuncture, may have falsely depressed results. Performed By: #### 3 084-1 ####[facility]ORY[facility]IA [id number] [place] [id number] [place] Basic metabolic 2000 panelon 11-19-2023 Anion gap [Moles/Vol] 3 mmol/L Low 5-16 [facility] Comment on above: Order Comment: Speci men Type: BLOOD SPECIMEN [facility]ing Facility: [facility] Address: [address] [place] [address] Performed By: #### 1 995-0 #### [facility] CLIA [id number] [address] [place] [address] [place] Calcium [Mass/Vol] 9.2 mg/dL Normal 8.5-10.5 [facility] Comment on above: Order Comment: Speci men Type: BLOOD SPECIMEN [facility]ing Facility: [facility] Address: [address] [place] [address] Performed By: #### 1 995-0 #### [facility] CLIA [id number] [address] [place] [address] [place] Chloride [Moles/Vol] 101 mmol/L Normal 98-107 [facility] Comment on above: Order Comment: Speci men Type: BLOOD SPECIMEN [facility]ing Facility: [facility] Address: [address] [place] [address] Performed By: #### 1 995-0 #### [facility] CLIA [id number] [address] [place] [address] [place] CO2 [Moles/Vol] 31 mmol/L Normal 21-32 [facility] Comment on above: Order Comment: Speci men Type: BLOOD SPECIMEN [facility]ing Facility: [facility] Address: [address] [place] [address] Performed By: #### 1 995-0 #### [facility] CLIA [id number] [address] [place] [address] [place] Creatinine [Mass/Vol] 0.61 mg/dL Normal 0.50-1.40 [facility] Comment on above: Order Comment: Yogi plascencia Type: BLOOD SPECIMEN [facility]ing Facility: [facility] Address: [address] [place] [address] Result Comment: Diane ents receiving either N-Acetylcysteine (NAC) or Metamizole prior to venipuncture, may have falsely depressed results. Performed By: #### 1 995-0 #### [facility] CLIA [id number] [address] [place] [address] [place] Creatinine and Glomerular filtration rate.predicted panel (S/P/Bld) 111 mL/min/1.73m??? Normal >=60 [facility] Comment on above: Order Comment: Yogi plascencia Type: BLOOD SPECIMEN [facility] Address: [address] [place] [address] Result Comment: Sudha mated Glomerular Filtration Rate [...] GFR. Performed By: #### 1 995-0 #### [facility] CLIA [id number] [address] [place] [address] [place] Glucose [Mass/Vol] 113 mg/dL High 70-100 [facility] Comment on above: Order Comment: Yogi plascencia Type: BLOOD SPECIMEN [facility]: [facility] Address: [address] [place] [address] Result Comment: The [place] [employer] (ADA) provides guidance for cutoff [...] Standards of Medical Care in Diabetes 2016, [place] [employer]. Diabetes Care. 2016.39(Suppl 1). Results may be falsely elevated after the administration of Sulfapyridine. Results may be falsely depressed after the administration of Sulfasalazine. Performed By: #### 1 995-0 #### [facility] CLIA [id number] [address] [place] [address] [place] Potassium [Moles/Vol] 3.8 mmol/L Normal 3.5-5.1 [facility] Comment on above: Order Comment: Speci men Type: BLOOD SPECIMEN [facility] Address: [address] [place] [address] Performed By: #### 1 995-0 #### [facility] CLIA [id number] [address] [place] [address] [place] Sodium [Moles/Vol] 135 mmol/L Low 136-145 [facility] Comment on above: Order Comment: Speci men Type: BLOOD SPECIMEN [facility]ing [facility]: [facility] Address: [address] [place] [address] Performed By: #### 1 995-0 #### [facility] CLIA [id number] [address] [place] [address] [place] Urea nitrogen [Mass/Vol] 9 mg/dL Normal 7-26 [facility] Comment on above: Order Comment: Speci men Type: BLOOD SPECIMEN [facility]: [facility] Address: [address] [place] [address] Performed By: #### 1 995-0 #### [facility] CLIA [id number] [address] [place] [address] [place] CBC W Auto Differential pane l (Bld)on 11-19-2023 Basophils (Bld) [#/Vol] 0.05 10*3/uL Normal <0.11 [facility] Comment on above: Order Comment: Speci men Type: BLOOD SPECIMEN [facility] Address: [address] [place] [address] Performed By: #### 1 995-0 #### [facility] CLIA [id number] [address] [place] [address] [place] Basophils/100 WBC (Bld) 0.4 % Normal [facility] Comment on above: Order Comment: Speci men Type: BLOOD SPECIMEN [facility] Address: [address] [place] [address] Performed By: #### 1 995-0 #### [facility] CLIA [id number] [address] [place] [address] [place] Differential cell count method Nom (Bld) Auto Normal [facility] Comment on above: Order Comment: Speci men Type: BLOOD SPECIMEN [facility] Address: [address] [place] [address] Performed By: #### 1 995-0 #### [facility] CLIA [id number] [address] [place] [address] [place] Eosinophils (Bld) [#/Vol] 0.42 10*3/uL Normal <0.46 [facility] Comment on above: Order Comment: Speci men Type: BLOOD SPECIMEN [facility] Address: [address] [place] [address] Performed By: #### 1 995-0 #### [facility] CLIA [id number] [address] [place] [address] [place] Eosinophils/100 WBC (Bld) 3.3 % Normal [facility] Comment on above: Order Comment: Speci men Type: BLOOD SPECIMEN [facility] Facility: [facility] Address: [address] [place] [address] Performed By: #### 1 995-0 #### [facility] CLIA [id number] [address] [place] [address] [place] Erythrocyte distribution width (RBC) [Ratio] 17.7 % High 11.5-15.0 [facility] Comment on above: Order Comment: Speci men Type: BLOOD SPECIMEN [facility] Address: [address] [place] [address] Performed By: #### 1 995-0 #### [facility] CLIA [id number] [address] [place] [address] [place] Hematocrit (Bld) [Volume fraction] 39.5 % Normal 39.0-51.0 [facility] Comment on above: Order Comment: Speci men Type: BLOOD SPECIMEN [facility] Address: [address] [place] [address] Performed By: #### 1 995-0 #### [facility] CLIA [id number] [address] [place] [address] [place] Hemoglobin (Bld) [Mass/Vol] 12.1 g/dL Low 13.0-17.0 [facility] Comment on above: Order Comment: Speci men Type: BLOOD SPECIMEN [facility] Address: [address] [place] [address] Performed By: #### 1 995-0 #### [facility] CLIA [id number] [address] [place] [address] [place] Immature granulocytes (Bld) [#/Vol] 0.06 10*3/uL Normal <0.10 [facility] Comment on above: Order Comment: Speci men Type: BLOOD SPECIMEN [facility] Address: [address] [place] [address] Performed By: #### 1 995-0 #### [facility] CLIA [id number] [address] [place] [address] [place] Immature granulocytes/100 WBC (Bld) 0.5 % Normal [facility] Comment on above: Order Comment: Speci men Type: BLOOD SPECIMEN [facility] Address: [address] [place] [address] Performed By: #### 1 995-0 #### [facility] CLIA [id number] [address] [place] [address] [place] Lymphocytes (Bld) [#/Vol] 2.44 10*3/uL Normal 1.00-4.00 [facility] Comment on above: Order Comment: Speci men Type: BLOOD SPECIMEN [facility] Address: [address] [place] [address] Performed By: #### 1 995-0 #### [facility] CLIA [id number] [address] [place] [address] [place] Lymphocytes/100 WBC (Bld) 19.3 % Normal [facility] Comment on above: Order Comment: Speci men Type: BLOOD SPECIMEN [facility] Address: [address] [place] [address] Performed By: #### 1 995-0 #### [facility] CLIA [id number] [address] [place] [address] [place] MCH (RBC) [Entitic mass] 23.9 pg Low 26.0-34.0 [facility] Comment on above: Order Comment: Speci men Type: BLOOD SPECIMEN [facility] Address: [address] [place] [address] Performed By: #### 1 995-0 #### [facility] CLIA [id number] [address] [place] [address] [place] MCHC (RBC) [Mass/Vol] 30.6 g/dL Normal 30.5-36.0 [facility] Comment on above: Order Comment: Speci men Type: BLOOD SPECIMEN [facility] Address: [address] [place] [address] Performed By: #### 1 995-0 #### [facility] CLIA [id number] [address] [place] [address] [place] MCV (RBC) [Entitic vol] 77.9 fL Low 80.0-100.0 [facility] Comment on above: Order Comment: Speci men Type: BLOOD SPECIMEN [facility] Address: [address] [place] [address] Performed By: #### 1 995-0 #### [facility] CLIA [id number] [address] [place] [address] [place] Monocytes (Bld) [#/Vol] 0.88 10*3/uL High <0.87 [facility] Comment on above: Order Comment: Speci men Type: BLOOD SPECIMEN [facility] Address: [address] [place] [address] Performed By: #### 1 995-0 #### [facility] CLIA [id number] [address] [place] [address] [place] Monocytes/100 WBC (Bld) 6.9 % Normal [facility] Comment on above: Order Comment: Speci men Type: BLOOD SPECIMEN [facility] Address: [address] [place] [address] Performed By: #### 1 995-0 #### [facility] CLIA [id number] [address] [place] [address] [place] Neutrophils (Bld) [#/Vol] 8.82 10*3/uL High 1.45-7.50 [facility] Comment on above: Order Comment: Speci men Type: BLOOD SPECIMEN [facility] Address: [address] [place] [address] Performed By: #### 1 995-0 #### [facility] CLIA [id number] [address] [place] [address] [place] Neutrophils/100 WBC (Bld) 69.6 % Normal [facility] Comment on above: Order Comment: Speci men Type: BLOOD SPECIMEN [facility] Address: [address] [place] [address] Performed By: #### 1 995-0 #### [facility] CLIA [id number] [address] [place] [address] [place] Nucleated RBC (Bld) [#/Vol] 10*3/uL Normal <0.01 [facility] Comment on above: Order Comment: Speci men Type: BLOOD SPECIMEN [facility] Address: [address] [place] [address] Performed By: #### 1 995-0 #### [facility] CLIA [id number] [address] [place] [address] [place] Nucleated RBC/100 WBC (Bld) [Ratio] 0.0 /100 WBC Normal [facility] Comment on above: Order Comment: Speci men Type: BLOOD SPECIMEN [facility] Address: [address] [place] [address] Performed By: #### 1 995-0 #### [facility] CLIA [id number] [address] [place] [address] [place] Platelet mean volume (Bld) [Entitic vol] 10.1 fL Normal 9.0-12.7 [facility] Comment on above: Order Comment: Speci men Type: BLOOD SPECIMEN [facility] Address: [address] [place] [address] Performed By: #### 1 995-0 #### [facility] CLIA [id number] [address] [place] [address] [place] Platelets (Bld) [#/Vol] 193 10*3/uL Normal 150-400 [facility] Comment on above: Order Comment: Speci men Type: BLOOD SPECIMEN [facility] Address: [address] [place] [address] Performed By: #### 1 995-0 #### [facility] CLIA [id number] [address] [place] [address] [place] RBC (Bld) [#/Vol] 5.07 10*6/uL Normal 4.20-6.00 [facility] Comment on above: Order Comment: Speci men Type: BLOOD SPECIMEN [facility] Address: [address] [place] [address] Performed By: #### 1 995-0 #### [facility] CLIA [id number] [address] [place], [place] [address] [place] WBC (Bld) [#/Vol] 12.67 10*3/uL High 3.70-11.00 [facility] Comment on above: Order Comment: Speci men Type: BLOOD SPECIMEN [facility] Address: [facility] [place] [id number] Performed By: #### 1 995-0 #### [facility] CLIA [id number] [address] [place] [address] [place] ECG COMPLETEon 11-19-2023 ECG COMPLETE Ventricular Rate : 8 5 BPM Atrial Rate : 85 BPM P-R Interval : 182 ms QRS Duration : 90 ms Q-T Interval : 376 ms QTC Calculation(Bazett) : 447 ms Calculated P Lagrange : 36 degrees Calculated R Lagrange : 13 degrees Calculated T [place]range : 42 degrees Normal sinus rhythm Low voltage QRS Borderline ECG When compared with ECG of 18-Nov-2023 23:05, No significant change was found Confirmed by JASON MORALES MD ([id number]) on 11/21/2023 3:34:16 PM NAME : DERRELL HOYT PID : [id number] : 1965 Gender : Male Race : Unknown ORD : [id number] Procedure Date : Nov 19 2023 06:07:47 Edit Date : Nov 21 2023 15:34:19 Diagnosis: Normal sinus rhythm Low voltage QRS Borderline ECG When compared with ECG of 18-Nov-2023 23:05, No significant change was found Confirmed by JASON MORALES MD ([id number]) on 11/21/2023 3:34:16 PM Test Reason : RT Location : 13 : [facility] CCU Overread By : JASON MORALES MD Edited By : JASON MORALES MD Referred By : GALINA OVALLE Acquired by : OMAR SIM Normal [facility] ECHOon 11-19-2023 Echocardiography Echocardiography Rep ort: Transthoracic Echo [facility] Date of service: 11/19/2023 9:10:02 AM Ordering physician: EDY BHATIA Indication: [place] Technologist: Clarence Riley [facility] Interpreting physician: Rachel Silva MD PATIENT: Name: [...] than 50 percent with inspiration. MITRAL VALVE [place] mitral valve. There is no mitral stenosis. [...] deceleration time is 248 msec. TRICUSPID VALVE [place] tricuspid valve. There is no tricuspid stenosis. [...] * * Final * * * [facility] [employer] [facility] : [id number] D [facility] Ferritin SerPl-mCncon 2023 Ferritin [Mass/Vol] 12.5 ng/mL Low 24.0-388.0 [facility] Comment on above: Order Comment: Speci men Type: BLOOD SPECIMEN [facility] Address: [address] [place] [address] Performed By: #### 1 995-0 #### [facility] CLIA [id number] [address] [place] [address] [place] Gas and Carbon monoxide pane l (BldV)on 11-19-2023 Base excess Calc (BldV) [Moles/Vol] 2 mmol/L Normal 0-2 [facility] Comment on above: Order Comment: Speci men Type: BLOOD SPECIMEN [facility] Address: [address] [place] [address] Performed By: #### 1 995-0 #### [facility] CLIA [id number] [address] [place] [address] [place] Body temperature 98.06 [degF] Normal [facility] Comment on above: Order Comment: Speci men Type: BLOOD SPECIMEN [facility] Address: [address] [place] [address] Performed By: #### 1 995-0 #### [facility] CLIA [id number] [address] [place] [address] [place] Calcium.ionized (Bld) [Mass/Vol] 1.09 mmol/L Normal 1.08-1.30 [facility] Comment on above: Order Comment: Speci men Type: BLOOD SPECIMEN [facility] Address: [address] [place] [address] Performed By: #### 1 995-0 #### [facility] CLIA [id number] [address] [place] [address] [place] Carboxyhemoglobin (BldV) [Mass fraction] 2.2 % High 0.0-2.0 [facility] Comment on above: Order Comment: Speci men Type: BLOOD SPECIMEN [facility] Address: [address] [place] [address] Result Comment: Carb oxyhemoglobin Reference Range for Smokers: 2.0-8.0% Performed By: #### 1 995-0 #### [facility] CLIA [id number] [address] [place] [address] [place] CO2 (BldV) [Partial pressure] 43 mm[Hg] Normal 42-55 [facility] Comment on above: Order Comment: Speci men Type: BLOOD SPECIMEN [facility] Address: [address] [place] [address] Performed By: #### 1 995-0 #### [facility] CLIA [id number] [address] [place] [address] [place] CO2 adjusted to patient's actual temperature (BldV) [Partial pressure] Normal [facility] Comment on above: Order Comment: Speci men Type: BLOOD SPECIMEN [facility] Address: [address] [place] [address] Performed By: #### 1 995-0 #### [facility] CLIA [id number] [address] [place] [address] [place] Glucose [Mass/Vol] 109 mg/dL High 60-105 [facility] Comment on above: Order Comment: Speci men Type: BLOOD SPECIMEN [facility]: [facility] Address: [address] [place] [address] Performed By: #### 1 995-0 #### [facility] CLIA [id number] [address] [place] [address] [place] HCO3 (Bld) [Moles/Vol] 27 mmol/L Normal 24-28 [facility] Comment on above: Order Comment: Speci men Type: BLOOD SPECIMEN [facility]: [facility] Address: [address] [place] [address] Performed By: #### 1 995-0 #### [facility] CLIA [id number] [address] [place] [address] [place] Hemoglobin (Bld) [Mass/Vol] 13.5 g/dL Normal 13.0-17.0 [facility] Comment on above: Order Comment: Speci men Type: BLOOD SPECIMEN Ordering Facility: [facility] Address: [address] [place] [address] Performed By: #### 1 995-0 #### [facility] CLIA [id number] [address] [place] [address] [place] Lactate [Moles/Vol] 1.7 mmol/L Normal 0.5-2.2 [facility] Comment on above: Order Comment: Speci men Type: BLOOD SPECIMEN Ordering Facility: [facility] Address: [address] [place] [address] Performed By: #### 1 995-0 #### [facility] IA [id number] [address] [place] [address] [place] Methemoglobin (Bld) [Mass fraction] 0.2 % Normal 0.0-1.5 [facility] Comment on above: Order Comment: Speci men Type: BLOOD SPECIMEN [facility]ing Facility: [facility] Address: [address] [place] [address] Performed By: #### 1 995-0 #### [facility] IA [id number] [address] [place] [address] [place] O2 THERAPY RA=Room Air Normal [facility] Comment on above: Order Comment: Speci men Type: BLOOD SPECIMEN [facility]ing Facility: [facility] Address: [address] [place] [address] Performed By: #### 1 995-0 #### [facility] IA [id number] [address] [place] [address] [place] Oxygen (BldV) [Partial pressure] 98 mm[Hg] High 35-45 [facility] Comment on above: Order Comment: Speci men Type: BLOOD SPECIMEN [facility]ing Facility: [facility] Address: [address] [place] [address] Performed By: #### 1 995-0 #### [facility] IA [id number] [address] [place] [address] [place] Oxygen adjusted to patient's actual temperature (BldV) [Partial pressure] Normal [facility] Comment on above: Order Comment: Speci men Type: BLOOD SPECIMEN Ordering Facility: [facility] Address: [address] [place] [address] Performed By: #### 1 995-0 #### [facility] CLIA [id number] [address] [place] [address] [place] Oxygen saturation in Venous blood 94 % High 60-85 [facility] Comment on above: Order Comment: Speci men Type: BLOOD SPECIMEN Ordering Facility: [facility] Address: [address] [place] [address] Performed By: #### 1 995-0 #### [facility] CLIA [id number] [address] [place] [address] [place] Oxyhemoglobin (BldV) [Mass fraction] 94 % Normal 4-98 [facility] Comment on above: Order Comment: Speci men Type: BLOOD SPECIMEN [facility]ing Facility: [facility] Address: [address] [place] [address] Performed By: #### 1 995-0 #### [facility] CLIA [id number] [address] [place] [address] [place] pH (BldV) 7.42 [pH] Normal 7.32-7.42 [facility] Comment on above: Order Comment: Speci men Type: BLOOD SPECIMEN [facility]ing Facility: [facility] Address: [address] [place] [address] Performed By: #### 1 995-0 #### [facility] CLIA [id number] [address] [place] [address] [place] pH adjusted to patient's actual temperature (BldV) Normal [facility] Comment on above: Order Comment: Speci men Type: BLOOD SPECIMEN [facility]ing Facility: [facility] Address: [address] [place] [address] Performed By: #### 1 995-0 #### [facility] CLIA [id number] [address] [place] [address] [place] Potassium [Moles/Vol] 3.8 mmol/L Normal 2.5-6.0 [facility] Comment on above: Order Comment: Speci men Type: BLOOD SPECIMEN Ordering Facility: [facility] Address: [facility] [place] [address] Performed By: #### 1 995-0 #### [facility] CLIA [id number] [address] [place], [place] [id number] [place] Sodium [Moles/Vol] 136 mmol/L Normal 136-144 [facility] Comment on above: Order Comment: Speci men Type: BLOOD SPECIMEN Ordering Facility: [facility] Address: [facility] [place] [address] Performed By: #### 1 995-0 #### [facility] [facility] CLIA [id number] [address] [place] [address] [place] Iron and Iron binding capaci ty panelon 11-19-2023 Iron [Mass/Vol] 26 ug/dL Low 65-175 [facility] Comment on above: Order Comment: Speci men Type: BLOOD SPECIMEN Ordering Facility: [facility] Address: [address] [place] [address] Result Comment: Diane ents treated with metal-binding drugs (e.g.deferoxamine) may have depressed iron values, as chelated iron may not properly react in the Siemens iron assay. Performed By: #### 1 995-0 #### [facility] CLIA [id number] [address] [place] [address] [place] Iron binding capacity [Mass/Vol] 329 ug/dL Normal 221-481 [facility] Comment on above: Order Comment: Speci men Type: BLOOD SPECIMEN Ordering Facility: [facility] Address: [address] [place] [address] Performed By: #### 1 995-0 #### [facility] CLIA [id number] [address] [place], [place] [address] [place] Iron/TIBC [Molar ratio] 7.9 % Low 22.0-44.0 M [facility] Comment on above: Order Comment: Speci men Type: BLOOD SPECIMEN Ordering Facility: [facility] Address: [address] [place] [address] Performed By: #### 1 995-0 #### [facility] CLIA [id number] [address] [place], [place] [address] [place] Magnesium SerPl-mCncon 11-18 Magnesium [Mass/Vol] 1.9 mg/dL Normal 1.6-2.6 [facility] Comment on above: Order Comment: Speci men Type: BLOOD SPECIMEN Ordering Facility: [facility] Address: [address] [place] [address] Performed By: #### 1 995-0 #### [facility] CLIA [id number] [address] [place], [place] [address] [place] T3Free SerPl-mCncon 11-19-19 24 Free T3 [Mass/Vol] 2.2 pg/mL Normal 2.2-4.0 [facility] Comment on above: Order Comment: Speci men Type: BLOOD SPECIMEN Ordering Facility: [facility] Address: [address] [place] [address] Performed By: #### 1 995-0 #### [facility] CLIA [id number] [address] [place], [place] [address] [place] T4 Free SerPl-mCncon 024 Free T4 [Mass/Vol] 1.1 ng/dL Normal 0.8-1.5 [facility] Comment on above: Order Comment: Speci men Type: BLOOD SPECIMEN Ordering Facility: [facility] Address: [address] [place] [address] Performed By: #### 1 995-0 #### [facility] CLIA [id number] [address] [place], [place] [address] [place] Basic metabolic 2000 panelon 11-18-2023 Anion gap [Moles/Vol] 3 mmol/L Low 5-16 [facility] Comment on above: Order Comment: Speci men Type: BLOOD SPECIMEN Ordering Facility: [facility] Address: [address] [place] [address] Performed By: #### 2 4321-2, , 3 #### [facility] CLIA [id number] [address] [place] [address] [place] Calcium [Mass/Vol] 9.1 mg/dL Normal 8.5-10.5 [facility] Comment on above: Order Comment: Speci men Type: BLOOD SPECIMEN Ordering Facility: [facility] Address: [address] [place] [address] Performed By: #### 2 4321-2, , 3 #### [facility] CLIA [id number] [address] [place], [place] [address] [place] Chloride [Moles/Vol] 100 mmol/L Normal 98-107 [facility] Comment on above: Order Comment: Speci men Type: BLOOD SPECIMEN Ordering Facility: [facility] Address: [address] [place] [address] Performed By: #### 2 4321-2, , 3 #### [facility] CLIA [id number] [address] [place], [place] [address] [place] CO2 [Moles/Vol] 32 mmol/L Normal 21-32 [facility] Comment on above: Order Comment: Speci men Type: BLOOD SPECIMEN Ordering Facility: [facility] Address: [address] [place] [address] Performed By: #### 2 4321-2, , 3 #### [facility] CLIA [id number] [address] [place] [address] [place] Creatinine [Mass/Vol] 0.66 mg/dL Normal 0.50-1.40 [facility] Comment on above: Order Comment: Speci men Type: BLOOD SPECIMEN Ordering Facility: [facility] Address: [address] [place], [place] [address] Result Comment: Diane ents receiving either N-Acetylcysteine (NAC) or Metamizole prior to venipuncture, may have falsely depressed results. Performed By: #### 2 4321-2, 78402-8, 3015-3 #### [facility] CLIA [id number] [address] [place], [place] [address] [place] Creatinine and Glomerular filtration rate.predicted panel (S/P/Bld) 109 mL/min/1.73m??? Normal >=60 [facility] Comment on above: Order Comment: Yogi plascencia Type: BLOOD SPECIMEN Ordering Facility: [facility] Address: [address] [place] [address] Result Comment: Sudha mated Glomerular Filtration Rate [...] actual GFR. Performed By: #### 2 4321-2, 78858-5, 3015-3 #### [facility] CLIA [id number] [address] [place], [place] [address] [place] Glucose [Mass/Vol] 135 mg/dL High 70-100 [facility] Comment on above: Order Comment: Yogi plascencia Type: BLOOD SPECIMEN Ordering Facility: [facility] Address: [address] [place] [address] Result Comment: The [place] [employer] Association (ADA) provides guidance for cutoff [...] Standards of Medical Care in Diabetes 2016, [place] [employer]. Diabetes Care. 2016.39(Suppl 1). Results may be falsely elevated after the administration of Sulfapyridine. Results may be falsely depressed after the administration of Sulfasalazine. Performed By: #### 2 4321-2, 55700-2, 3015-3 #### [facility] CLIA [id number] [address] [place], [place] [address] [place] Potassium [Moles/Vol] 4.2 mmol/L Normal 3.5-5.1 [facility] Comment on above: Order Comment: Speci men Type: BLOOD SPECIMEN Ordering Facility: [facility] Address: [address] [place] [address] Performed By: #### 2 4321-2, , 3015-3 #### [facility] CLIA [id number] [address] [place] [address] [place] Sodium [Moles/Vol] 135 mmol/L Low 136-145 [facility] Comment on above: Order Comment: Speci men Type: BLOOD SPECIMEN Ordering Facility: [facility] Address: [address] [place] [address] Performed By: #### 2 4321-2, , 3 #### [facility] CLIA [id number] [address] [place] [address] [place] Urea nitrogen [Mass/Vol] 11 mg/dL Normal 7-26 [facility] Comment on above: Order Comment: Speci men Type: BLOOD SPECIMEN Ordering Facility: [facility] Address: [address] [place] [address] Performed By: #### 2 4321-2, , 3 #### [facility] CLIA [id number] [address] [place] [address] [place] CBC W Auto Differential pane l (Bld)on 11-18-2023 Basophils (Bld) [#/Vol] 0.06 10*3/uL Normal <0.11 [facility] Comment on above: Order Comment: Speci men Type: BLOOD SPECIMEN Ordering Facility: [facility] Address: [address] [place] [address] Performed By: #### 5 7021-8 #### [facility] CLIA [id number] [address] [place] [address] [place] Basophils/100 WBC (Bld) 0.5 % Normal [facility] Comment on above: Order Comment: Speci men Type: BLOOD SPECIMEN Ordering Facility: [facility] Address: [address] [place] [address] Performed By: #### 5 7021-8 #### [facility] CLIA [id number] [address] [place] [address] [place] Differential cell count method Nom (Bld) Auto Normal [facility] Comment on above: Order Comment: Speci men Type: BLOOD SPECIMEN Ordering Facility: [facility] Address: [address] [place] [address] Performed By: #### 5 7021-8 #### [facility] CLIA [id number] [address] [place] [address] [place] Eosinophils (Bld) [#/Vol] 0.34 10*3/uL Normal <0.46 [facility] Comment on above: Order Comment: Speci men Type: BLOOD SPECIMEN Ordering Facility: [facility] Address: [address] [place] [address] Performed By: #### 5 7021-8 #### [facility] CLIA [id number] [address] [place] [address] [place] Eosinophils/100 WBC (Bld) 2.9 % Normal [facility] Comment on above: Order Comment: Speci men Type: BLOOD SPECIMEN Ordering Facility: [facility] Address: [address] [place] [address] Performed By: #### 5 7021-8 #### [facility] CLIA [id number] [address] [place] [address] [place] Erythrocyte distribution width (RBC) [Ratio] 17.8 % High 11.5-15.0 [facility] Comment on above: Order Comment: Speci men Type: BLOOD SPECIMEN Ordering Facility: [facility] Address: [address] [place] [address] Performed By: #### 5 7021-8 #### [facility] CLIA [id number] [address] [place] [address] [place] Hematocrit (Bld) [Volume fraction] 41.1 % Normal 39.0-51.0 [facility] Comment on above: Order Comment: Speci men Type: BLOOD SPECIMEN Ordering Facility: [facility] Address: [address] [place] [address] Performed By: #### 5 7021-8 #### [facility] CLIA [id number] [address] [place] [address] [place] Hemoglobin (Bld) [Mass/Vol] 12.5 g/dL Low 13.0-17.0 [facility] Comment on above: Order Comment: Speci men Type: BLOOD SPECIMEN Ordering Facility: [facility] Address: [address] [place] [address] Performed By: #### 5 7021-8 #### [facility] CLIA [id number] [address] [place] [address] [place] Immature granulocytes (Bld) [#/Vol] 0.04 10*3/uL Normal <0.10 [facility] Comment on above: Order Comment: Speci men Type: BLOOD SPECIMEN Ordering Facility: [facility] Address: [address] [place] [address] Performed By: #### 5 7021-8 #### [facility] CLIA [id number] [address] [place] [address] [place] Immature granulocytes/100 WBC (Bld) 0.3 % Normal [facility] Comment on above: Order Comment: Speci men Type: BLOOD SPECIMEN Ordering Facility: [facility] Address: [address] [place] [address] Performed By: #### 5 7021-8 #### [facility] CLIA [id number] [address] [place] [address] [place] Lymphocytes (Bld) [#/Vol] 2.21 10*3/uL Normal 1.00-4.00 [facility] Comment on above: Order Comment: Speci men Type: BLOOD SPECIMEN Ordering Facility: [facility] Address: [address] [place] [address] Performed By: #### 5 7021-8 #### [facility] CLIA [id number] [address] [place] [address] [place] Lymphocytes/100 WBC (Bld) 18.7 % Normal [facility] Comment on above: Order Comment: Speci men Type: BLOOD SPECIMEN Ordering Facility: [facility] Address: [address] [place] [address] Performed By: #### 5 7021-8 #### [facility] CLIA [id number] [address] [place] [address] [place] MCH (RBC) [Entitic mass] 23.7 pg Low 26.0-34.0 [facility] Comment on above: Order Comment: Speci men Type: BLOOD SPECIMEN Ordering Facility: [facility] Address: [address] [place] [address] Performed By: #### 5 7021-8 #### [facility] CLIA [id number] [address] [place] [address] [place] MCHC (RBC) [Mass/Vol] 30.4 g/dL Low 30.5-36.0 [facility] Comment on above: Order Comment: Speci men Type: BLOOD SPECIMEN Ordering Facility: [facility] Address: [address] [place] [address] Performed By: #### 5 7021-8 #### [facility] CLIA [id number] [address] [place] [address] [place] MCV (RBC) [Entitic vol] 77.8 fL Low 80.0-100.0 M [facility] Comment on above: Order Comment: Speci men Type: BLOOD SPECIMEN Ordering Facility: [facility] Address: [address] [place] [address] Performed By: #### 5 7021-8 #### [facility] CLIA [id number] [address] [place] [address] [place] Monocytes (Bld) [#/Vol] 0.67 10*3/uL Normal <0.87 [facility] Comment on above: Order Comment: Speci men Type: BLOOD SPECIMEN Ordering Facility: [facility] Address: [address] [id number] Performed By: #### 5 7021-8 #### [facility] CLIA [id number] [address] [place] [address] [place] Monocytes/100 WBC (Bld) 5.7 % Normal [facility] Comment on above: Order Comment: Speci men Type: BLOOD SPECIMEN Ordering Facility: [facility] Address: [address] [place] [address] Performed By: #### 5 7021-8 #### [facility] CLIA [id number] [address] [place] [address] [place] Neutrophils (Bld) [#/Vol] 8.52 10*3/uL High 1.45-7.50 [facility] Comment on above: Order Comment: Speci men Type: BLOOD SPECIMEN Ordering Facility: [facility] Address: [address] [place] [address] Performed By: #### 5 7021-8 #### [facility] CLIA [id number] [address] [place] [address] [place] Neutrophils/100 WBC (Bld) 71.9 % Normal [facility] Comment on above: Order Comment: Speci men Type: BLOOD SPECIMEN Ordering Facility: [facility] Address: [address] [place] [address] Performed By: #### 5 7021-8 #### [facility] CLIA [id number] [address] [place] [address] [place] Nucleated RBC (Bld) [#/Vol] 10*3/uL Normal <0.01 [facility] Comment on above: Order Comment: Speci men Type: BLOOD SPECIMEN Ordering Facility: [facility] Address: [address] [place] [address] Performed By: #### 5 7021-8 #### [facility] CLIA [id number] [address] [place], [place] [address] [place] Nucleated RBC/100 WBC (Bld) [Ratio] 0.0 /100 WBC Normal [facility] Comment on above: Order Comment: Speci men Type: BLOOD SPECIMEN Ordering Facility: [facility] Address: [address] [place] [address] Performed By: #### 5 7021-8 #### [facility] CLIA [id number] [address] [place] [address] [place] Platelet mean volume (Bld) [Entitic vol] 10.0 fL Normal 9.0-12.7 [facility] Comment on above: Order Comment: Speci men Type: BLOOD SPECIMEN Ordering Facility: [facility] Address: [address] [place] [address] Performed By: #### 5 7021-8 #### [facility] CLIA [id number] [address] [place] [address] [place] Platelets (Bld) [#/Vol] 186 10*3/uL Normal 150-400 [facility] Comment on above: Order Comment: Speci men Type: BLOOD SPECIMEN Ordering Facility: [facility] Address: [address] [place] [address] Performed By: #### 5 7021-8 #### [facility] CLIA [id number] [address] [place] [address] [place] RBC (Bld) [#/Vol] 5.28 10*6/uL Normal 4.20-6.00 [facility] Comment on above: Order Comment: Speci men Type: BLOOD SPECIMEN Ordering Facility: [facility] Address: [address] [place] [address] Performed By: #### 5 7021-8 #### [facility] CLIA [id number] [address] [place], [place] [address] [place] WBC (Bld) [#/Vol] 11.84 10*3/uL High 3.70-11.00 [facility] Comment on above: Order Comment: Speci men Type: BLOOD SPECIMEN Ordering Facility: [facility] Address: [address], [place] [address] Performed By: #### 5 7021-8 #### [facility] CLIA [id number] [address] [place] [address] [place] CONSULTon 11-18-2023 CONSULT HNO ID: [id number] Author: CHIDI ARROYO MD Service: Cardiovascular Medicine Author Type: Physician Type: Consults Filed: 11/19/2023 20:16 Note Text: CARDIOLOGY CONSULT STAFF CERTIFIED INDOOR ENVIRONMENTALIST: CHIDI ARROYO Requesting Provider: Chidi Liu MD Opinion/advice regarding: NSVT CHIEF COMPLAINT: Dizzy and lightheaded HPI: This is a 58 year old male with a past medical history of CAD, COPD, NAFLD, morbid obesity, hypertension, papillary thyroid carcinoma s/p thyroidectomy now with hypothyroidism, Hx NSVT, syncope, asthma, diabetes, SHAHANA (noncompliant) who initially presented to [facility] with complaints of lightheadedness and dizziness. [...] cardiac cath with stent placement in 2020 [facility] however required transfer to [facility] for nonsustained V. tach and EP [...] HISTORY Diagnosis Date Coronary artery disease involving [place] coronary artery of [place] heart without angina pectoris 01/22/2021 Depression DM [...] (CYMBALTA) 6 (more content not included)... Normal [facility] Calcium.ionized [Moles/Vol]o n 11-18-2023 Calcium.ionized (Bld) [Mass/Vol] 1.15 mmol/L Low 1.16-1.32 [facility] Comment on above: Order Comment: Speci men Type: BLOOD SPECIMEN Ordering Facility: [facility] Address: [address] [place] [address] Performed By: #### 1 995-0 #### [facility] CLIA [id number] [address] [place] [address] [place] ECG COMPLETEon 11-18-2023 ECG COMPLETE Ventricular Rate : 8 2 BPM Atrial Rate : 82 BPM P-R Interval : 188 ms QRS Duration : 92 ms Q-T Interval : 388 ms QTC Calculation(Bazett) : 453 ms Calculated P Lagrange : 43 degrees Calculated R Lagrange : 9 degrees Calculated T Lagrange : 44 degrees Normal sinus rhythm Normal ECG No previous ECGs available Confirmed by JASON MORALES MD ([id number]) on 11/21/2023 3:24:15 PM NAME : DERRELL HOYT PID : [id number] : 1965 Gender : Male Race : Unknown ORD : [id number] Procedure Date : Nov 18 2023 23:05:42 Edit Date : Nov 21 2023 15:24:16 Diagnosis: Normal sinus rhythm Normal ECG No previous ECGs available Confirmed by JASON MORALES MD ([id number]) on 11/21/2023 3:24:15 PM Test Reason : VTACH Location : 13 : CCU CCU4 Overread By : JASON MORALES MD Edited By : JASON MORALES MD Referred By : GALINA OVALLE Acquired by : Rosaura FORD [facility] HIGH SENSITIVITY TROPONIN Io n 11-18-2023 Tropinin I.cardiac panel High sensitivity method 3.6 pg/mL Normal 0.0-54.0 [facility] Comment on above: Order Comment: Speci men Type: BLOOD SPECIMEN Ordering Facility: [facility] Address: [address] [place] [address] Result Comment: This assay uses different antibodies than our current assay, and assays, even by the same test operator may recognize different regions of the antibody and cannot be used interchangeably. Expect results of this assay to run higher than the previous assay. Performed By: #### H STROP #### [facility] CLIA [id number] [address] [place] [address] OF [facility] HISTORY PHYSICALon HISTORY PHYSICAL HNO ID: [id number] Author: CHIDI LIU MD Service: Hospital Medicine Author Type: Physician Type: H&P Filed: 11/18/2023 22:37 Note Text: HISTORY AND PHYSICAL EXAMINATION SERVICE DATE: 11/18/2023 SERVICE TIME: 10:28 PM PRIMARY CARE PHYSICIAN: Nain Paez MD Subjective HPI the patient is a 58-year-old male who resides in an assisted living facility. Reportedly became lightheaded earlier today and nursing supposedly checked on him and noted him to have a low heart rate? Either way he was sent to outside hospital for evaluation and was thought to be having episodes of NSVT. They requested transfer to [facility] for evaluation by electrophysiology. He is not currently complaining of chest pain, shortness of breath. He stated earlier today he did break into a sweat with his symptoms. Denies fevers chills recent illness FUNCTIONAL STATUS: Independent PAST MEDICAL HISTORY Diagnosis Date Coronary artery disease involving [place] coronary artery of [place] heart without angina pectoris 01/22/2021 Depression DM [...] , Rfl (more content not included)... Normal [facility] Lactate (Bld) [Moles/Vol]on 11-18-2023 Lactate [Moles/Vol] 1.7 mmol/L Normal 0.4-2.0 [facility] Comment on above: Order Comment: Speci men Type: BLOOD SPECIMEN Ordering Facility: [facility] Address: [address] [place], [place] [address] Performed By: #### 3 2693-4 #### [facility] CLIA [id number] [address] [place], [place] [address] [place] [facility] Magnesium SerPl-mCncon 11-17 Magnesium [Mass/Vol] 2.1 mg/dL Normal 1.6-2.6 [facility] Comment on above: Order Comment: Yogi plascencia Type: BLOOD SPECIMEN Ordering Facility: [facility] Address: [address] [place] [address] Performed By: #### 2 4321-2, 94669-6, 3016-3 #### [facility] CLIA [id number] [address] [place], [place] [address] [place] PT panel Coag (PPP)on 2023 INR Coag (PPP) [Relative time] 1.1 {INR} Normal 0.9-1.3 [facility] Comment on above: Order Comment: Yogi plascencia Type: BLOOD SPECIMEN Ordering Facility: [facility] Address: [address] [place] [address] Result Comment: Xin min K Antagonist (VKA) Therapeutic Range: INR 2 to 3 (Target INR of 2.5) Note: For patients treated with VKA drugs, such as warfarin, the [place] [employer] 2012 Guideline recommends [...] Chest 2012, 141:7S-47S Radha RA, et al. JACC 2017, 70: 252-289 Performed By: #### 3 4528-0, 02212-6 #### [facility] CLIA [id number] [address] [place] [address] [place] OF [facility] PT Coag (PPP) [Time] 11.7 s Normal 9.7-13.0 [facility] Comment on above: Order Comment: Speci men Type: BLOOD SPECIMEN Ordering Facility: [facility] Address: [address] [place] [address] Performed By: #### 3 4528-0, 14760-1 #### [facility] CLIA [id number] [address] [place] [address] OF [facility] TSH SerPl-aCncon 11-18-2023 TSH Qn 10.919 m[IU]/L High 0.358-3.740 [facility] Comment on above: Order Comment: Speci men Type: BLOOD SPECIMEN Ordering Facility: [facility] Address: [address] [place] [address] Result Comment: 3rd generation ultra sensitive TSH. Performed By: #### 2 4321-2, 54012-8, 3016-3 #### [facility] CLIA [id number] [address] [place] [address] [place] aPTT PPPon 11-18-2023 aPTT Coag (PPP) [Time] 28.8 s Normal 23.0-32.4 [facility] Comment on above: Order Comment: Speci men Type: BLOOD SPECIMEN Ordering Facility: [facility] Address: [address] [place] [address] Performed By: #### 3 4528-0, 58337-7 #### [facility] CLIA [id number] [address] [place] [address] [place] Absolute lymphocyte counton 09-15-2021 Lymphocytes Auto (Unsp spec) [#/Vol] 1.87 10*3/uL 0.83-4.51 [facility] Work Phone: Basophil percentageon 2021 Basophils/100 WBC (Bld) 0.4 % 0-1 [facility] Work Phone: Chloride [Moles/Vol] 100 mmol/L 98-107 [facility] Work Phone: Eosinophils/100 WBC (Bld) 4.4 % 0-5 [facility] Work Phone: Glucose [Mass/Vol] 221 mg/dL 74-106 [facility] Work Phone: Comment on above: Glucose result great er than or equal to 200 mg/dLsuggests DIABETES MELLITUS per A.D.A. criteria. Neutrophils (Bld) [#/Vol] 9.1 10*3/uL 2.0-7.7 [facility] Work Phone: Neutrophils/100 WBC (Bld) 73.7 % 47-70 [facility] Work Phone: [phone] Potassium [Moles/Vol] 3.9 mmol/L 3.5-5.1 [facility] Work Phone: Sodium [Moles/Vol] 134 mmol/L 136-145 [facility] Work Phone: WBC (Bld) [#/Vol] 12.4 10*3/uL 4.4-11.0 [facility]: [phone] Blood erythrocytes count (nu mber/volume)on 09-15-2021 RBC (Bld) [#/Vol] 4.52 10*6/uL 4.6-6.2 [facility] Work Phone: Blood hemoglobin measurement (mass/volume)on 09-15-2021 Hemoglobin (Bld) [Mass/Vol] 13.8 g/dL 13.0-16.5 [facility] Work Phone: Blood lymphocytes/100 leukoc yteson 09-15-2021 Lymphocytes/100 WBC (Bld) 15.1 % 19-41 [facility] Work Phone: Blood monocytes/100 leukocyt eson 09-15-2021 Monocytes/100 WBC (Bld) 5.8 % 0-10 [facility] Work Phone: Blood platelet mean volumeon 09-15-2021 Platelet mean volume (Bld) [Entitic vol] 9.8 fL 6.2-12.0 [facility] Work Phone: Determination of erythrocyte mean corpuscular volume (MCV)on 09-15-2021 MCV (RBC) [Entitic vol] 89.8 fL 80-94 [facility] Work Phone: Glucose Glucometer (BldC) [M ass/Vol]on 09-15-2021 Glucose [Mass/Vol] 287 mg/dL 74-106 [facility] Work Phone: Comment on above: MANAGEMENT OF PATIEN T CARE PER NURSING PROTOCOL Hematocrit Auto (Bld) [Volum e fraction]on 09-15-2021 Hematocrit (Bld) [Volume fraction] 40.6 % 40-54 [facility] Work Phone: Laboratory - Chemistry and C hemistry - challengeon 09-15-2021 CO2 [Moles/Vol] 30.0 mmol/L 21.0-32.0 [facility] Work Phone: Urea nitrogen/Creatinine [Mass ratio] 20.0 mg/mg 10-20 [facility] Work Phone: Laboratory - Hematology and Cell countson 09-15-2021 Erythrocyte distribution width (RBC) [Entitic vol] 45.8 fL 35.1-43.9 [facility] Work Phone: Erythrocyte distribution width (RBC) [Ratio] 14.1 % 11.6-14.6 [facility] Work Phone: Immature granulocytes/100 WBC (Bld) 0.600 % 0.0-0.9 [facility] Work Phone: Comment on above: IG% - Immature Granu locytes (promyelocytes, myelocytes and metamyelocytes) > 1% indicates that a LEFT SHIFT is Present. MCH (RBC) [Entitic mass] 30.5 pg 27.0-32.0 [facility] Work Phone: Nucleated RBC/100 WBC (Bld) [Ratio] 0 % 0-5 [facility] Work Phone: MCHC Auto (RBC) [Mass/Vol]on 09-15-2021 MCHC (RBC) [Mass/Vol] 34.0 g/dL 32-36 [facility] Work Phone: No Panel Informationon 09-15 Estimated Creatinine Clearance Calc 133.17 ml/min [facility] Work Phone: Estimated GFR (MDRD) Amer 150 mL/min >60 [facility] Work Phone: Comment on above: GFR Calc Estimated GFR (MDRD) Non-Af Amer 124 mL/min >60 [facility] Work Phone: Comment on above: Non- GFR Calc Platelets bldon 09-15-2021 Platelets (Bld) [#/Vol] 187 10*3/uL 150-450 [facility] Work Phone: Serum or plasma calcium davidson urement (mass/volume)on 09-15-2021 Calcium [Mass/Vol] 8.4 mg/dL 8.5-10.1 [facility] Work Phone: Serum or plasma creatinine m easurement (mass/volume)on 09-15-2021 Creatinine [Mass/Vol] 0.70 mg/dL 0.70-1.30 [facility] Work Phone: Comment on above: The validity of the calculated GFR & GFRAA in patients over 70 years has not been determined. Clinical correlation is essential. Serum or plasma urea nitroge n measurement (mass/volume)on 09-15-2021 Urea nitrogen [Mass/Vol] 14 mg/dL 7-18 [facility] Work Phone: Thin prep Papanicolaou smear with manual screeningon 09-15-2021 Thin prep Papanicolaou smear with manual screening 4 5-15 [facility] Work Phone: Absolute lymphocyte counton 09-13-2021 Lymphocytes Auto (Unsp spec) [#/Vol] 2.01 10*3/uL 0.83-4.51 [facility] Work Phone: Basophil percentageon 2021 Basophil percentage 3.2 mg/dL 2.5-4.9 [facility] Work Phone: Basophils/100 WBC (Bld) 0.4 % 0-1 [facility] Work Phone: Chloride [Moles/Vol] 98 mmol/L 98-107 [facility] Work Phone: [phone] Eosinophils/100 WBC (Bld) 3.2 % 0-5 [facility] Work Phone: Glucose [Mass/Vol] 213 mg/dL 74-106 [facility] Work Phone: Comment on above: Glucose result great er than or equal to 200 mg/dLsuggests DIABETES MELLITUS per A.D.A. criteria. Neutrophils (Bld) [#/Vol] 9.8 10*3/uL 2.0-7.7 [facility] Work Phone: Neutrophils/100 WBC (Bld) 75.1 % 47-70 [facility] Work Phone: Potassium [Moles/Vol] 3.8 mmol/L 3.5-5.1 [facility] Work Phone: Sodium [Moles/Vol] 136 mmol/L 136-145 [facility] Work Phone: [phone] WBC (Bld) [#/Vol] 13.0 10*3/uL 4.4-11.0 [facility] Work Phone: [phone] Blood erythrocytes count (nu mber/volume)on 09-13-2021 RBC (Bld) [#/Vol] 4.49 10*6/uL 4.6-6.2 [facility] Work Phone: Blood hemoglobin measurement (mass/volume)on 09-13-2021 Hemoglobin (Bld) [Mass/Vol] 13.8 g/dL 13.0-16.5 [facility] Work Phone: Blood lymphocytes/100 leukoc yteson 09-13-2021 Lymphocytes/100 WBC (Bld) 15.4 % 19-41 [facility] Work Phone: Blood monocytes/100 leukocyt eson 09-13-2021 Monocytes/100 WBC (Bld) 5.4 % 0-10 [facility] Work Phone: Blood platelet mean volumeon 09-13-2021 Platelet mean volume (Bld) [Entitic vol] 10.0 fL 6.2-12.0 [facility] Work Phone: Determination of erythrocyte mean corpuscular volume (MCV)on 09-13-2021 MCV (RBC) [Entitic vol] 92.0 fL 80-94 [facility] Work Phone: Hematocrit Auto (Bld) [Volum e fraction]on 09-13-2021 Hematocrit (Bld) [Volume fraction] 41.3 % 40-54 [facility] Work Phone: Laboratory - Chemistry and C hemistry - challengeon 09-13-2021 CO2 [Moles/Vol] 30.0 mmol/L 21.0-32.0 [facility] Work Phone: Magnesium [Mass/Vol] 1.8 mg/dL 1.6-2.6 [facility] Work Phone: Urea nitrogen/Creatinine [Mass ratio] 12.4 mg/mg 10-20 [facility] Work Phone: Laboratory - Hematology and Cell countson 09-13-2021 Erythrocyte distribution width (RBC) [Entitic vol] 46.7 fL 35.1-43.9 [facility] Work Phone: Erythrocyte distribution width (RBC) [Ratio] 13.9 % 11.6-14.6 [facility] Work Phone: Immature granulocytes/100 WBC (Bld) 0.500 % 0.0-0.9 [facility] Work Phone: Comment on above: IG% - Immature Granu locytes (promyelocytes, myelocytes and metamyelocytes) > 1% indicates that a LEFT SHIFT is Present. MCH (RBC) [Entitic mass] 30.7 pg 27.0-32.0 [facility] Work Phone: Nucleated RBC/100 WBC (Bld) [Ratio] 0 % 0-5 [facility] Work Phone: MCHC Auto (RBC) [Mass/Vol]on 09-13-2021 MCHC (RBC) [Mass/Vol] 33.4 g/dL 32-36 [facility] Work Phone: No Panel Informationon 09-13 Troponin I High Sensitivity < 3 pg/mL 3.0-78.0 [facility] Work Phone: Comment on above: Please Note: [place] t Units and Gender Specific Reference Ranges. For more information see Policy Stat Procedure [place] High Sensitivity Troponin (TNIH) and attachments. Estimated Creatinine Clearance Calc 115.08 ml/min [facility] Work Phone: Estimated GFR (MDRD) Amer 127 mL/min >60 [facility] Work Phone: Comment on above: GFR Calc Estimated GFR (MDRD) Non-Af Amer 105 mL/min >60 [facility] Work Phone: Comment on above: Non- GFR Calc Troponin I High Sensitivity 3 pg/mL 3.0-78.0 [facility] Work Phone: Comment on above: Please Note: [place] t Units and Gender Specific Reference Ranges. For more information see Policy Stat Procedure [place] High Sensitivity Troponin (TNIH) and attachments. Platelets bldon 09-13-2021 Platelets (Bld) [#/Vol] 209 10*3/uL 150-450 [facility] Work Phone: Serum or plasma calcium davidson urement (mass/volume)on 09-13-2021 Calcium [Mass/Vol] 9.1 mg/dL 8.5-10.1 [facility] Work Phone: Serum or plasma creatinine m easurement (mass/volume)on 09-13-2021 Creatinine [Mass/Vol] 0.81 mg/dL 0.70-1.30 [facility] Work Phone: Comment on above: The validity of the calculated GFR & GFRAA in patients over 70 years has not been determined. Clinical correlation is essential. Serum or plasma urea nitroge n measurement (mass/volume)on 09-13-2021 Urea nitrogen [Mass/Vol] 10 mg/dL 7-18 [facility] Work Phone: Thin prep Papanicolaou smear with manual screeningon 09-13-2021 Thin prep Papanicolaou smear with manual screening 8 5-15 [facility] Work Phone: Laboratory - Microbiology an d Antimicrobial susceptibilityon 07-16-2021 SARS-CoV-2 (COVID-19) RNA NAMAN+probe Ql (Unsp spec) Not detected Not Detect [facility] Work Phone: Comment on above: Normal Reference Ran ge: Not DetectedMethod:(RT-PCR) real-time reverse transcriptase PCRLuminex Vinsula Instrument*The Food and Drug Administration (FDA) has issued an Emergency Use Authorization (EAU) for the Vinsula SARS-CoV-2 Assay for the rapid detection of [...] 01-31-2021 CNNURSE Nurse Visit (AGCARDP OB) -------- DERRELL HOYT ([id number]) 1965 M Date Time Provider Department 01/31/21 11:00 AM NURSE CARD AG [facility] AGCARDPOB During your visit today, we recorded the following information about you: Pulse Blood pressure Weight Height 80/minute 99/66 167.8 kg 1.753 m Marlee Truong MA 01/31/2021 10:57 AM Signed No cardiac concerns today Sharon Eubanks RN 01/31/2021 11:09 AM Signed EKG reviewed. CHIRAG Cassidy APRN.BLUE LEATHER SETTER 01/31/2021 4:52 PM Signed I reviewed EKG [...] Yuki Hedrick on 02/27/2021 at 9:45 AM. Ton Duckworth APRN.BLUE LEATHER SETTER Referring Provider: SELF [200] Allergies As of Date: 01/31/2021 (No Known Allergies) Date Reviewed: 01/31/2021 Reviewed by: Marlee Truong MA - Fully Assessed Reason for Visit: EKG [793] Cmt: nurse visit Primary Visit Diagnosis:Ventricular tachycardia, nonsustained (HCC) [I47.2] Order(s):ECG B/O W INTERP (MED OFFICE) [ECG06] Order #: [id number] Prescriptions as of 01/31/2021 - aspirin, enteric [...] kit Freestyle (more content not included)... Normal [facility] CBC W Auto Differential pane l (Bld)on 01-24-2021 Basophils (Bld) [#/Vol] 0.07 10*3/uL Normal <0.11 [facility] Comment on above: Order Comment: Speci men Type: BLOOD SPECIMEN Performed By: #### 5 7021-8 #### [facility] CLIA [id number] [address] [place] [address] Basophils/100 WBC (Bld) 0.5 % Normal A [facility] Comment on above: Order Comment: Speci men Type: BLOOD SPECIMEN Performed By: #### 5 7021-8 #### [facility] CLIA [id number] [address] [place] [address] Differential cell count method Nom (Bld) Auto Normal [facility] Comment on above: Order Comment: Speci men Type: BLOOD SPECIMEN Performed By: #### 5 7021-8 #### [facility] [place] CLIA [id number] [address] [place] [address] Eosinophils (Bld) [#/Vol] 0.91 10*3/uL High <0.46 [facility] Comment on above: Order Comment: Speci men Type: BLOOD SPECIMEN Performed By: #### 5 7021-8 #### [facility] CLIA [id number] [address] [place] [address] Eosinophils/100 WBC (Bld) 6.9 % Normal [facility] Comment on above: Order Comment: Speci men Type: BLOOD SPECIMEN Performed By: #### 5 7021-8 #### [facility] CLIA [id number] [address] [place] [address] Erythrocyte distribution width (RBC) [Ratio] 14.4 % Normal 11.5-15.0 [facility] Comment on above: Order Comment: Speci men Type: BLOOD SPECIMEN Performed By: #### 5 7021-8 #### [facility] CLIA [id number] [address] [place] [address] Hematocrit (Bld) [Volume fraction] 43.0 % Normal 39.0-51.0 [facility] Comment on above: Order Comment: Speci men Type: BLOOD SPECIMEN Performed By: #### 5 7021-8 #### [facility] CLIA [id number] [address] [place] [address] Hemoglobin (Bld) [Mass/Vol] 13.9 g/dL Normal 13.0-17.0 [facility] Comment on above: Order Comment: Speci men Type: BLOOD SPECIMEN Performed By: #### 5 7021-8 #### [facility] CLIA [id number] [address] [place] [address] IMMATURE GRAN % 0.9 % Normal [facility] Comment on above: Order Comment: Speci men Type: BLOOD SPECIMEN Performed By: #### 5 7021-8 #### [facility] CLIA [id number] [address] [place] [address] IMMATURE GRAN ABS 0.12 k/uL High <0.10 [facility] Comment on above: Order Comment: Speci men Type: BLOOD SPECIMEN Performed By: #### 5 7021-8 #### [facility] CLIA [id number] [address] [place] [address] Lymphocytes (Bld) [#/Vol] 1.95 10*3/uL Normal 1.00-4.00 [facility] Comment on above: Order Comment: Speci men Type: BLOOD SPECIMEN Performed By: #### 5 7021-8 #### [facility] CLIA [id number] [address] [place] [address] Lymphocytes/100 WBC (Bld) 14.7 % Normal [facility] Comment on above: Order Comment: Speci men Type: BLOOD SPECIMEN Performed By: #### 5 7021-8 #### [facility] [place] CLIA [id number] [address] [place] [address] MCH (RBC) [Entitic mass] 30.8 pg Normal 26.0-34.0 [facility] Comment on above: Order Comment: Speci men Type: BLOOD SPECIMEN Performed By: #### 5 7021-8 #### [facility] [place] CLIA [id number] [address] [place] [address] MCHC (RBC) [Mass/Vol] 32.3 g/dL Normal 30.5-36.0 [facility] Comment on above: Order Comment: Speci men Type: BLOOD SPECIMEN Performed By: #### 5 7021-8 #### [facility] [place] CLIA [id number] [address] [place] [address] MCV (RBC) [Entitic vol] 95.1 fL Normal 80.0-100.0 [facility] Comment on above: Order Comment: Speci men Type: BLOOD SPECIMEN Performed By: #### 5 7021-8 #### [facility] [place] CLIA [id number] [address] [place] [address] Monocytes (Bld) [#/Vol] 0.70 10*3/uL Normal <0.87 [facility] Comment on above: Order Comment: Speci men Type: BLOOD SPECIMEN Performed By: #### 5 7021-8 #### [facility] [place] CLIA [id number] [address] [place] [address] Monocytes/100 WBC (Bld) 5.3 % Normal [facility] Comment on above: Order Comment: Speci men Type: BLOOD SPECIMEN Performed By: #### 5 7021-8 #### [facility] CLIA [id number] [address] [place] [address] Neutrophils (Bld) [#/Vol] 9.53 10*3/uL High 1.45-7.50 [facility] Comment on above: Order Comment: Speci men Type: BLOOD SPECIMEN Performed By: #### 5 7021-8 #### [facility] CLIA [id number] [address] [place] [address] Neutrophils/100 WBC (Bld) 71.7 % Normal [facility] Comment on above: Order Comment: Speci men Type: BLOOD SPECIMEN Performed By: #### 5 7021-8 #### [facility] [place] CLIA [id number] [address] [place] [address] Nucleated RBC (Bld) [#/Vol] 10*3/uL Normal <0.01 [facility] Comment on above: Order Comment: Speci men Type: BLOOD SPECIMEN Performed By: #### 5 7021-8 #### [facility] [place] CLIA [id number] [address] [place] [address] Nucleated RBC/100 WBC (Bld) [Ratio] 0.0 /100 WBC Normal 0.0 [facility] Comment on above: Order Comment: Speci men Type: BLOOD SPECIMEN Performed By: #### 5 7021-8 #### [facility] [place] CLIA [id number] [address] [place] [address] Platelet mean volume (Bld) [Entitic vol] 10.2 fL Normal 9.0-12.7 [facility] Comment on above: Order Comment: Speci men Type: BLOOD SPECIMEN Performed By: #### 5 7021-8 #### [facility] CLIA [id number] [address] [place] [address] Platelets (Bld) [#/Vol] 199 10*3/uL Normal 150-400 [facility] Comment on above: Order Comment: Speci men Type: BLOOD SPECIMEN Performed By: #### 5 7021-8 #### [facility] CLIA [id number] [address] [place] [address] RBC (Bld) [#/Vol] 4.52 10*6/uL Normal 4.20-6.00 [facility] Comment on above: Order Comment: Speci men Type: BLOOD SPECIMEN Performed By: #### 5 7021-8 #### [facility] CLIA [id number] [address] [place] [address] WBC (Bld) [#/Vol] 13.28 10*3/uL High 3.70-11.00 [facility] Comment on above: Order Comment: Speci men Type: BLOOD SPECIMEN Performed By: #### 5 7021-8 #### [facility] CLIA [id number] [address] [place] [address] CNDSon 01-24-2021 CNDS HNO ID: [id number] Author: Karolina Broussard MD Service: Hospital Medicine [...] Thyroid Carcinoma s/p Thyroidectomy --> Hypothyroidism presented [place] [facility] due to palpitations. Patient states he [...] was kept on drip. Patient transferred to [facility] under EP for possible ablation. Outside [...] use POA: Yes Coronary artery disease involving [place] coronary artery of [place] heart without angina pectoris POA: Yes Chronic [...] Wound/Surgical Sit (more content not included)... Normal [facility] CNPKatiana 01-24-2021 FRANCISCO JAVIER Telephone (SONJA) -------- DERRELL HOYT ([id number]) 1965 M Date Time Provider Department 01/24/21 TON DUCKWORTH During your visit today, we recorded the following information about you: Ton Duckworth APRN.BLUE LEATHER SETTER 01/24/2021 1:36 PM Signed Patient seen in [...] 4 to 6 weeks. He lives at [facility] assisted living at [phone] and they arrange his transportation to appointments so he asked to schedule the appointment through them. Ton Duckworth APRN.BLUE LEATHER SETTER BART Sims 01/25/2021 8:58 AM Signed Contacted [facility] with scheduled appointments. Left message for Fuad [...] use [Z79.899] (more content not included)... Normal [facility] CONSULT PROGon 01-24-2021 CONSULT PROG HNO ID: [id number] Author: Ton Duckworth APRN.BLUE LEATHER SETTER Service: Electrophysiology Author Type: Nurse Specialist Type: [...] QRS duration 96 ms, QT/QTc 410/435 ms TELEMETRY/GRANTS OFFICER: Normal sinus rhythm with infrequent polymorphic PVCs [...] at [place] (more content not included)... Normal [facility] Comprehensive metabolic 2000 panelon 01-24-2021 Albumin [Mass/Vol] 3.9 g/dL Normal 3.9-4.9 [facility] Comment on above: Order Comment: Speci men Type: BLOOD SPECIMEN Performed By: #### 5 7021-8 #### [facility] [place] CLIA [id number] [address] [place] [address] ALP [Catalytic activity/Vol] 252 U/L High 38-113 [facility] Comment on above: Order Comment: Speci men Type: BLOOD SPECIMEN Performed By: #### 5 7021-8 #### [facility] [place] CLIA [id number] [address] [place] [address] ALT With P-5'-P [Catalytic activity/Vol] 36 U/L Normal 10-54 [facility] Comment on above: Order Comment: Speci men Type: BLOOD SPECIMEN Performed By: #### 5 7021-8 #### [facility] [place] CLIA [id number] [address] [place] [address] Anion gap [Moles/Vol] 8 mmol/L Low 9-18 [facility] Comment on above: Order Comment: Speci men Type: BLOOD SPECIMEN Performed By: #### 5 7021-8 #### [facility] [place] CLIA [id number] [address] [place] [address] AST With P-5'-P [Catalytic activity/Vol] 33 U/L Normal 14-40 [facility] Comment on above: Order Comment: Speci men Type: BLOOD SPECIMEN Performed By: #### 5 7021-8 #### [facility] CLIA [id number] [address] [place] [address] Bilirubin [Mass/Vol] 0.6 mg/dL Normal 0.2-1.3 [facility] Comment on above: Order Comment: Speci men Type: BLOOD SPECIMEN Performed By: #### 5 7021-8 #### [facility] CLIA [id number] [address] [place] [address] Calcium [Mass/Vol] 8.8 mg/dL Normal 8.5-10.2 [facility] Comment on above: Order Comment: Speci men Type: BLOOD SPECIMEN Performed By: #### 5 7021-8 #### [facility] CLIA [id number] [address] [place] [address] Chloride [Moles/Vol] 99 mmol/L Normal 97-105 [facility] Comment on above: Order Comment: Speci men Type: BLOOD SPECIMEN Performed By: #### 5 7021-8 #### [facility] [place] CLIA [id number] [address] [place] [address] CO2 [Moles/Vol] 28 mmol/L Normal 22-30 [facility] Comment on above: Order Comment: Speci men Type: BLOOD SPECIMEN Performed By: #### 5 7021-8 #### [facility] CLIA [id number] [address] [place] [address] Creatinine [Mass/Vol] 0.69 mg/dL Low 0.73-1.22 [facility] Comment on above: Order Comment: Speci men Type: BLOOD SPECIMEN Performed By: #### 5 7021-8 #### [facility] CLIA [id number] [address] [place] [address] GFR/1.73 sq M.predicted MDRD (S/P/Bld) [Vol rate/Area] mL/min/{1.73_m2} Normal [facility] Comment on above: Order Comment: [...] GFR. Performed By: #### 5 7021-8 #### [facility] CLIA [id number] [address] [place] [address] Glucose [Mass/Vol] 156 mg/dL High 74-99 [facility] Comment on above: Order Comment: Speci men Type: BLOOD SPECIMEN Result Comment: The [place] [employer] (ADA) provides guidance for cutoff [...] Standards of Medical Care in Diabetes 2016, [place] [employer]. Diabetes Care. 2016.39(Suppl 1). Performed By: #### 5 7021-8 #### [facility] CLIA [id number] [address] [place] [address] Potassium [Moles/Vol] 4.7 mmol/L Normal 3.7-5.1 [facility] Comment on above: Order Comment: Speci men Type: BLOOD SPECIMEN Performed By: #### 5 7021-8 #### [facility] [place] CLIA [id number] [address] [place] [address] Protein [Mass/Vol] 7.0 g/dL Normal 6.3-8.0 [facility] Comment on above: Order Comment: Speci men Type: BLOOD SPECIMEN Performed By: #### 5 7021-8 #### [facility] CLIA [id number] [address] [place] [address] Sodium [Moles/Vol] 135 mmol/L Low 136-144 [facility] Comment on above: Order Comment: Speci men Type: BLOOD SPECIMEN Performed By: #### 5 7021-8 #### [facility] [facility] CLIA [id number] [address] [place] [address] Urea nitrogen [Mass/Vol] 13 mg/dL Normal 9-24 [facility] Comment on above: Order Comment: Speci men Type: BLOOD SPECIMEN Performed By: #### 5 7021-8 #### [facility] CLIA [id number] [address] [place] [address] Magnesium SerPl-mCncon 01-24 Magnesium [Mass/Vol] 2.1 mg/dL Normal 1.7-2.3 [facility] Comment on above: Order Comment: Speci men Type: BLOOD SPECIMEN Performed By: #### 5 7021-8 #### [facility] CLIA [id number] [address] [place] [address] CBC W Auto Differential pane l (Bld)on 01-23-2021 Basophils (Bld) [#/Vol] 0.08 10*3/uL Normal <0.11 [facility] Comment on above: Order Comment: Speci men Type: BLOOD SPECIMEN Performed By: #### 5 7021-8 #### [facility] CLIA [id number] [address] [place] [address] Basophils/100 WBC (Bld) 0.6 % Normal [facility] Comment on above: Order Comment: Speci men Type: BLOOD SPECIMEN Performed By: #### 5 7021-8 #### [facility] CLIA [id number] [address] [place] [address] Differential cell count method Nom (Bld) Auto Normal [facility] Comment on above: Order Comment: Speci men Type: BLOOD SPECIMEN Performed By: #### 5 7021-8 #### [facility] CLIA [id number] [address] [place] [address] Eosinophils (Bld) [#/Vol] 0.71 10*3/uL High <0.46 [facility] Comment on above: Order Comment: Speci men Type: BLOOD SPECIMEN Performed By: #### 5 7021-8 #### [facility] CLIA [id number] [address] [place] [address] Eosinophils/100 WBC (Bld) 5.3 % Normal [facility] Comment on above: Order Comment: Speci men Type: BLOOD SPECIMEN Performed By: #### 5 7021-8 #### [facility] CLIA [id number] [address] [place] [address] Erythrocyte distribution width (RBC) [Ratio] 14.5 % Normal 11.5-15.0 [facility] Comment on above: Order Comment: Speci men Type: BLOOD SPECIMEN Performed By: #### 5 7021-8 #### [facility] CLIA [id number] [address] [place] [address] Hematocrit (Bld) [Volume fraction] 44.5 % Normal 39.0-51.0 [facility] Comment on above: Order Comment: Speci men Type: BLOOD SPECIMEN Performed By: #### 5 7021-8 #### [facility] CLIA [id number] [address] [place] [address] Hemoglobin (Bld) [Mass/Vol] 14.4 g/dL Normal 13.0-17.0 [facility] Comment on above: Order Comment: Speci men Type: BLOOD SPECIMEN Performed By: #### 5 7021-8 #### [facility] CLIA [id number] [address] [place] [address] IMMATURE GRAN % 0.9 % Normal [facility] Comment on above: Order Comment: Speci men Type: BLOOD SPECIMEN Performed By: #### 5 7021-8 #### [facility] CLIA [id number] [address] [place] [address] IMMATURE GRAN ABS 0.12 k/uL High <0.10 [facility] Comment on above: Order Comment: Speci men Type: BLOOD SPECIMEN Performed By: #### 5 7021-8 #### [facility] CLIA [id number] [address] [place] [address] Lymphocytes (Bld) [#/Vol] 1.65 10*3/uL Normal 1.00-4.00 [facility] Comment on above: Order Comment: Speci men Type: BLOOD SPECIMEN Performed By: #### 5 7021-8 #### [facility] CLIA [id number] [address] [place] [address] Lymphocytes/100 WBC (Bld) 12.3 % Normal [facility] Comment on above: Order Comment: Speci men Type: BLOOD SPECIMEN Performed By: #### 5 7021-8 #### [facility] CLIA [id number] [address] [place] [address] MCH (RBC) [Entitic mass] 30.3 pg Normal 26.0-34.0 [facility] Comment on above: Order Comment: Speci men Type: BLOOD SPECIMEN Performed By: #### 5 7021-8 #### [facility] CLIA [id number] [address] [place] [address] MCHC (RBC) [Mass/Vol] 32.4 g/dL Normal 30.5-36.0 [facility] Comment on above: Order Comment: Speci men Type: BLOOD SPECIMEN Performed By: #### 5 7021-8 #### [facility] CLIA [id number] [address] [place] [address] MCV (RBC) [Entitic vol] 93.5 fL Normal 80.0-100.0 [facility] Comment on above: Order Comment: Speci men Type: BLOOD SPECIMEN Performed By: #### 5 7021-8 #### [facility] CLIA [id number] [address] [place] [address] Monocytes (Bld) [#/Vol] 0.73 10*3/uL Normal <0.87 [facility] Comment on above: Order Comment: Speci men Type: BLOOD SPECIMEN Performed By: #### 5 7021-8 #### [facility] CLIA [id number] [address] [place] [address] Monocytes/100 WBC (Bld) 5.5 % Normal [facility] Comment on above: Order Comment: Speci men Type: BLOOD SPECIMEN Performed By: #### 5 7021-8 #### [facility] CLIA [id number] [address] [place] [address] Neutrophils (Bld) [#/Vol] 10.08 10*3/uL High 1.45-7.50 [facility] Comment on above: Order Comment: Speci men Type: BLOOD SPECIMEN Performed By: #### 5 7021-8 #### [facility] CLIA [id number] [address] [place] [address] Neutrophils/100 WBC (Bld) 75.4 % Normal [facility] Comment on above: Order Comment: Speci men Type: BLOOD SPECIMEN Performed By: #### 5 7021-8 #### [facility] CLIA [id number] [address] [place] [address] Nucleated RBC (Bld) [#/Vol] 10*3/uL Normal <0.01 [facility] Comment on above: Order Comment: Speci men Type: BLOOD SPECIMEN Performed By: #### 5 7021-8 #### [facility] CLIA [id number] [address] [place] [address] Nucleated RBC/100 WBC (Bld) [Ratio] 0.0 /100 WBC Normal 0.0 [facility] Comment on above: Order Comment: Speci men Type: BLOOD SPECIMEN Performed By: #### 5 7021-8 #### [facility] CLIA [id number] [address] [place] [address] Platelet mean volume (Bld) [Entitic vol] 9.9 fL Normal 9.0-12.7 [facility] Comment on above: Order Comment: Speci men Type: BLOOD SPECIMEN Performed By: #### 5 7021-8 #### [facility] CLIA [id number] [address] [place] [address] Platelets (Bld) [#/Vol] 183 10*3/uL Normal 150-400 [facility] Comment on above: Order Comment: Speci men Type: BLOOD SPECIMEN Performed By: #### 5 7021-8 #### [facility] CLIA [id number] [address] [place] [address] RBC (Bld) [#/Vol] 4.76 10*6/uL Normal 4.20-6.00 [facility] Comment on above: Order Comment: Speci men Type: BLOOD SPECIMEN Performed By: #### 5 7021-8 #### [facility] CLIA [id number] [address] [place] [address] WBC (Bld) [#/Vol] 13.37 10*3/uL High 3.70-11.00 [facility] Comment on above: Order Comment: Speci men Type: BLOOD SPECIMEN Performed By: #### 5 7021-8 #### [facility] CLIA [id number] [address] [place] [address] Comprehensive metabolic 2000 panelon 01-23-2021 Albumin [Mass/Vol] 4.1 g/dL Normal 3.9-4.9 [facility] Comment on above: Order Comment: Speci men Type: BLOOD SPECIMEN Performed By: #### 2 4323-8 #### [facility] CLIA [id number] [address] [place] [address] ALP [Catalytic activity/Vol] 266 U/L High 38-113 [facility] Comment on above: Order Comment: Speci men Type: BLOOD SPECIMEN Performed By: #### 2 4323-8 #### [facility] CLIA [id number] [address] [place] [address] ALT With P-5'-P [Catalytic activity/Vol] 38 U/L Normal 10-54 [facility] Comment on above: Order Comment: Speci men Type: BLOOD SPECIMEN Performed By: #### 2 4323-8 #### [facility] CLIA [id number] [address] [place] [address] Anion gap [Moles/Vol] 10 mmol/L Normal 9-18 [facility] Comment on above: Order Comment: Speci men Type: BLOOD SPECIMEN Performed By: #### 2 4323-8 #### [facility] CLIA [id number] [address] [place] [address] AST With P-5'-P [Catalytic activity/Vol] 35 U/L Normal 14-40 [facility] Comment on above: Order Comment: Speci men Type: BLOOD SPECIMEN Performed By: #### 2 4323-8 #### [facility] CLIA [id number] [address] [place] [address] Bilirubin [Mass/Vol] 0.7 mg/dL Normal 0.2-1.3 [facility] Comment on above: Order Comment: Speci men Type: BLOOD SPECIMEN Performed By: #### 2 4323-8 #### [facility] CLIA [id number] [address] [place] [address] Calcium [Mass/Vol] 8.9 mg/dL Normal 8.5-10.2 [facility] Comment on above: Order Comment: Speci men Type: BLOOD SPECIMEN Performed By: #### 2 4323-8 #### [facility] CLIA [id number] [address] [place] [address] Chloride [Moles/Vol] 98 mmol/L Normal 97-105 [facility] Comment on above: Order Comment: Speci men Type: BLOOD SPECIMEN Performed By: #### 2 4323-8 #### [facility] CLIA [id number] [address] [place] [address] CO2 [Moles/Vol] 26 mmol/L Normal 22-30 [facility] Comment on above: Order Comment: Speci men Type: BLOOD SPECIMEN Performed By: #### 2 4323-8 #### [facility] CLIA [id number] [address] [place] [address] Creatinine [Mass/Vol] 0.78 mg/dL Normal 0.73-1.22 [facility] Comment on above: Order Comment: Speci men Type: BLOOD SPECIMEN Performed By: #### 2 4323-8 #### [facility] CLIA [id number] [address] [place] [address] GFR/1.73 sq M.predicted MDRD (S/P/Bld) [Vol rate/Area] mL/min/{1.73_m2} Normal [facility] Comment on above: Order Comment: [...] GFR. Performed By: #### 2 4323-8 #### [facility] CLIA [id number] [address] [place] [address] Glucose [Mass/Vol] 166 mg/dL High 74-99 [facility] Comment on above: Order Comment: Speci [facility] Type: BLOOD SPECIMEN Result Comment: The [place] [employer] (ADA) provides guidance for cutoff [...] Standards of Medical Care in Diabetes 2016, [place] [employer]. Diabetes Care. 2016.39(Suppl 1). Performed By: #### 2 4323-8 #### [facility] CLIA [id number] [address] [place] [address] Potassium [Moles/Vol] 4.6 mmol/L Normal 3.7-5.1 [facility] Comment on above: Order Comment: Speci [facility] Type: BLOOD SPECIMEN Performed By: #### 2 4323-8 #### [facility] CLIA [id number] [address] [place] [address] Protein [Mass/Vol] 7.4 g/dL Normal 6.3-8.0 [facility] Comment on above: Order Comment: Speci men Type: BLOOD SPECIMEN Performed By: #### 2 4323-8 #### [facility] CLIA [id number] [address] [place] [address] Sodium [Moles/Vol] 134 mmol/L Low 136-144 [facility] Comment on above: Order Comment: Speci men Type: BLOOD SPECIMEN Performed By: #### 2 4323-8 #### [facility] CLIA [id number] [address] [place] [address] Urea nitrogen [Mass/Vol] 11 mg/dL Normal 9-24 [facility] Comment on above: Order Comment: Speci men Type: BLOOD SPECIMEN Performed By: #### 2 4323-8 #### [facility] CLIA [id number] [address] [place] [address] HISTORY PHYSICALon HISTORY PHYSICAL HNO ID: [id number] Author: Karolina Broussard MD Service: Hospital Medicine Author Type: Physician Type: HANDP Filed: 01/24/2021 8:43 PM Note Text: HOUSE MEDICINE SERVICE HISTORY AND PHYSICAL SERVICE DATE: January 23, 2021 SERVICE TIME: 2.46PM NIGHT AND WEEKEND COVERAGE: From 6 AM to 5 PM: You may reach the House Medicine internet programmer currently assigned to this patient by finding their pager number on the treatment team (they will be assigned as the internet programmer or resident). It is the last four digits in the phone number beginning with ([phone]). We encourage the use of [employer] Secure Chat. PCP: Nain Paez MD Admitting Attending: Lizbeth Renteria MD [...] was kept on drip. Patient transferred to [facility] under EP for possible ablation. Most [...] HISTORY Diagnosis Date Coronary artery disease involving [place] coronary artery of [place] heart without angina pectoris 01/22/2021 Depression DM [...] mouth as (more content not included)... Normal [facility] NURSING PROGon 01-23-2021 NURSING PROG HNO ID: [id number] Author: Kyra Hinson RN Service: Nursing Author Type: Registered Nurse Type: Nursing Progress Note Filed: 01/23/2021 6:37 PM Note Text: Summary: transfer note Transferred from 3241 to 4202 via wheelchair with all belongings. 4200 staff in room with patient. Normal [facility] CASE MGT INIT ASSESon 2020 CASE MGT INIT JUAN M HNO ID: [id number] Author: Connie Grier RN Service: ? Author Type: Registered Nurse Type: Care Mgt Initial Assessment Filed: 01/22/2021 11:53 AM Note Text: CARE MANAGEMENT: ASSESSMENT AND DISCHARGE PLAN SERVICE DATE: January 22, 2021 SERVICE TIME: 11:52 AM PRIMARY CARE PHYSICIAN: Nain Paez MD ADMISSION STATUS: Inpatient Needs Prior to Discharge: Discharge Prescriptions MEDICAL: [facility] MEDICA[facility] Patient/Supervisor Scouring Pads Stated Goals: To have reduction in symptoms;To return home to life as it was;To be cured/healed Health Insurance: [facility] Issues Impacting Discharge Plan: Newly diagnosed;Chronic Newly Diagnosed: [place] Chronic: MDD, DM, HTN, COPD, CHF Last Discharge Date: 04/20/15 Is this Within the Past 30 days? Last discharge within 30 days: No Advance Directive: Current Advance Directive: None Ruling Technician Attempted to Assist with AD Completion: Yes [...] None Has the Patient Been in a Long-Term Facility in the Past 30 days?: No SOCIAL: Living Arrangements: Assisted Living Lives With: Alone Facility Information: [facility] [place] Financial Resources: Disabled Primary Contact: Extended Emergency Contact Information Primary Emergency Contact: No,One Relation: None Supportive Patient Contact:: Yes Contact Resources: Family Family Name/Phone: dtr Nikunj Caregiver AssessmentCaregiver is ready, willing and able [...] Completely I feel financially burdened by my rgd-ky-tvqroc expenses for my prescription medication:: 0 - Disagree Completely Risk Score: 0 Patient is categorized as: Low risk < 2 Are you interested in bedside delivery of your medications? No Is Patient Psychosocially Complex?: No ASSESSMENT AND PLAN: Medical Needs: Medical Needs: Two or more chronic diseases;Obesity Psychosocial Needs: Psychosocial Needs: Mental Health Diagnosis Mental Health Information: MDD FREEDOM OF CHOICE EXPLAINED: [place] of Choice Given: No Reason Not Given: No placements necessary POTENTIAL TRANSITION PLANS Home Met with pt, explained CM role. Resides in [place] at [facility]. Facility manages his meds. He can drive if he wants to. Plan [place] SIGNATURE: Connie Grier RN PATIENT NAME: Derrell Hoyt DATE: January 22, 2021 TIME: 11:52 AM PAGER/CONTACT #: [phone] Normal [facility] CBC W Auto Differential pane l (Bld)on 01-22-2021 Basophils (Bld) [#/Vol] 0.07 10*3/uL Normal <0.11 [facility] Comment on above: Order Comment: Speci men Type: BLOOD SPECIMEN Performed By: #### 5 7021-8 #### [facility] CLIA [id number] [address] [place] [address] Basophils/100 WBC (Bld) 0.5 % Normal [facility] Comment on above: Order Comment: Speci men Type: BLOOD SPECIMEN Performed By: #### 5 7021-8 #### [facility] CLIA [id number] [address] [place] [address] Differential cell count method Nom (Bld) Auto Normal [facility] Comment on above: Order Comment: Speci men Type: BLOOD SPECIMEN Performed By: #### 5 7021-8 #### [facility] CLIA [id number] [address] [place] [address] Eosinophils (Bld) [#/Vol] 0.51 10*3/uL High <0.46 [facility] Comment on above: Order Comment: Speci men Type: BLOOD SPECIMEN Performed By: #### 5 7021-8 #### [facility] CLIA [id number] [address] [place] [address] Eosinophils/100 WBC (Bld) 3.9 % Normal [facility] Comment on above: Order Comment: Speci men Type: BLOOD SPECIMEN Performed By: #### 5 7021-8 #### [facility] CLIA [id number] [address] [place] [address] Erythrocyte distribution width (RBC) [Ratio] 14.8 % Normal 11.5-15.0 [facility] Comment on above: Order Comment: Speci men Type: BLOOD SPECIMEN Performed By: #### 5 7021-8 #### [facility] CLIA [id number] [address] [place] [address] Hematocrit (Bld) [Volume fraction] 41.8 % Normal 39.0-51.0 [facility] Comment on above: Order Comment: Speci men Type: BLOOD SPECIMEN Performed By: #### 5 7021-8 #### [facility] CLIA [id number] [address] [place] [address] Hemoglobin (Bld) [Mass/Vol] 13.2 g/dL Normal 13.0-17.0 [facility] Comment on above: Order Comment: Speci men Type: BLOOD SPECIMEN Performed By: #### 5 7021-8 #### [facility] CLIA [id number] [address] [place] [address] IMMATURE GRAN % 0.8 % Normal [facility] Comment on above: Order Comment: Speci men Type: BLOOD SPECIMEN Performed By: #### 5 7021-8 #### [facility] CLIA [id number] [address] [place] [address] IMMATURE GRAN ABS 0.10 k/uL High <0.10 [facility] Comment on above: Order Comment: Speci men Type: BLOOD SPECIMEN Performed By: #### 5 7021-8 #### [facility] CLIA [id number] [address] [place] [address] Lymphocytes (Bld) [#/Vol] 1.49 10*3/uL Normal 1.00-4.00 [facility] Comment on above: Order Comment: Speci men Type: BLOOD SPECIMEN Performed By: #### 5 7021-8 #### [facility] CLIA [id number] [address] [place] [address] Lymphocytes/100 WBC (Bld) 11.5 % Normal [facility] Comment on above: Order Comment: Speci men Type: BLOOD SPECIMEN Performed By: #### 5 7021-8 #### [facility] CLIA [id number] [address] [place] [address] MCH (RBC) [Entitic mass] 30.3 pg Normal 26.0-34.0 [facility] Comment on above: Order Comment: Speci men Type: BLOOD SPECIMEN Performed By: #### 5 7021-8 #### [facility] CLIA [id number] [address] [place] [address] MCHC (RBC) [Mass/Vol] 31.6 g/dL Normal 30.5-36.0 [facility] Comment on above: Order Comment: Speci men Type: BLOOD SPECIMEN Performed By: #### 5 7021-8 #### [facility] CLIA [id number] [address] [place] [address] MCV (RBC) [Entitic vol] 95.9 fL Normal 80.0-100.0 [facility] Comment on above: Order Comment: Speci men Type: BLOOD SPECIMEN Performed By: #### 5 7021-8 #### [facility] CLIA [id number] [address] [place] [address] Monocytes (Bld) [#/Vol] 0.78 10*3/uL Normal <0.87 [facility] Comment on above: Order Comment: Speci men Type: BLOOD SPECIMEN Performed By: #### 5 7021-8 #### [facility] CLIA [id number] [address] [place] [address] Monocytes/100 WBC (Bld) 6.0 % Normal [facility] Comment on above: Order Comment: Speci men Type: BLOOD SPECIMEN Performed By: #### 5 7021-8 #### [facility] CLIA [id number] [address] [place] [address] Neutrophils (Bld) [#/Vol] 10.05 10*3/uL High 1.45-7.50 [facility] Comment on above: Order Comment: Speci men Type: BLOOD SPECIMEN Performed By: #### 5 7021-8 #### [facility] CLIA [id number] [address] [place] [address] Neutrophils/100 WBC (Bld) 77.3 % Normal [facility] Comment on above: Order Comment: Speci men Type: BLOOD SPECIMEN Performed By: #### 5 7021-8 #### [facility] CLIA [id number] [address] [place] [address] Nucleated RBC (Bld) [#/Vol] 10*3/uL Normal <0.01 [facility] Comment on above: Order Comment: Speci men Type: BLOOD SPECIMEN Performed By: #### 5 7021-8 #### [facility] CLIA [id number] [address] [place] [address] Nucleated RBC/100 WBC (Bld) [Ratio] 0.0 /100 WBC Normal 0.0 [facility] Comment on above: Order Comment: Speci men Type: BLOOD SPECIMEN Performed By: #### 5 7021-8 #### [facility] CLIA [id number] [address] [place] [address] Platelet mean volume (Bld) [Entitic vol] 10.5 fL Normal 9.0-12.7 [facility] Comment on above: Order Comment: Speci men Type: BLOOD SPECIMEN Performed By: #### 5 7021-8 #### [facility] CLIA [id number] [address] [place] [address] Platelets (Bld) [#/Vol] 177 10*3/uL Normal 150-400 [facility] Comment on above: Order Comment: Speci men Type: BLOOD SPECIMEN Performed By: #### 5 7021-8 #### [facility] CLIA [id number] [address] [place] [address] RBC (Bld) [#/Vol] 4.36 10*6/uL Normal 4.20-6.00 [facility] Comment on above: Order Comment: Speci men Type: BLOOD SPECIMEN Performed By: #### 5 7021-8 #### [facility] CLIA [id number] [address] [place] [address] WBC (Bld) [#/Vol] 13.00 10*3/uL High 3.70-11.00 [facility] Comment on above: Order Comment: Speci men Type: BLOOD SPECIMEN Performed By: #### 5 7021-8 #### [facility] CLIA [id number] [address] [place] [address] Comprehensive metabolic 2000 panelon 01-22-2021 Albumin [Mass/Vol] 3.8 g/dL Low 3.9-4.9 [facility] Comment on above: Order Comment: Speci men Type: BLOOD SPECIMEN Performed By: #### 2 4323-8 #### [facility] CLIA [id number] [address] [place] [address] ALP [Catalytic activity/Vol] 217 U/L High 38-113 [facility] Comment on above: Order Comment: Speci men Type: BLOOD SPECIMEN Performed By: #### 2 4323-8 #### [facility] CLIA [id number] [address] [place] [address] ALT With P-5'-P [Catalytic activity/Vol] 33 U/L Normal 10-54 [facility] Comment on above: Order Comment: Speci men Type: BLOOD SPECIMEN Performed By: #### 2 4323-8 #### [facility] CLIA [id number] [address] [place] [address] Anion gap [Moles/Vol] 8 mmol/L Low 9-18 [facility] Comment on above: Order Comment: Speci men Type: BLOOD SPECIMEN Performed By: #### 2 4323-8 #### [facility] CLIA [id number] [address] [place] [address] AST With P-5'-P [Catalytic activity/Vol] 30 U/L Normal 14-40 [facility] Comment on above: Order Comment: Speci men Type: BLOOD SPECIMEN Performed By: #### 2 4323-8 #### [facility] CLIA [id number] [address] [place] [address] Bilirubin [Mass/Vol] 0.5 mg/dL Normal 0.2-1.3 [facility] Comment on above: Order Comment: Speci men Type: BLOOD SPECIMEN Performed By: #### 2 4323-8 #### [facility] CLIA [id number] [address] [place] [address] Calcium [Mass/Vol] 8.7 mg/dL Normal 8.5-10.2 [facility] Comment on above: Order Comment: Speci men Type: BLOOD SPECIMEN Performed By: #### 2 4323-8 #### [facility] CLIA [id number] [address] [place] [address] Chloride [Moles/Vol] 98 mmol/L Normal 97-105 [facility] Comment on above: Order Comment: Speci men Type: BLOOD SPECIMEN Performed By: #### 2 4323-8 #### [facility] CLIA [id number] [address] [place] [address] CO2 [Moles/Vol] 27 mmol/L Normal 22-30 [facility] Comment on above: Order Comment: Speci men Type: BLOOD SPECIMEN Performed By: #### 2 4323-8 #### [facility] CLIA [id number] [address] [place] [address] Creatinine [Mass/Vol] 0.82 mg/dL Normal 0.73-1.22 [facility] Comment on above: Order Comment: Speci men Type: BLOOD SPECIMEN Performed By: #### 2 4323-8 #### [facility] CLIA [id number] [address] [place] [address] GFR/1.73 sq M.predicted MDRD (S/P/Bld) [Vol rate/Area] mL/min/{1.73_m2} Normal [facility] Comment on above: Order Comment: [...] GFR. Performed By: #### 2 4323-8 #### [facility] CLIA [id number] [address] [place] [address] Glucose [Mass/Vol] 175 mg/dL High 74-99 [facility] Comment on above: Order Comment: Speci men Type: BLOOD SPECIMEN Result Comment: The [place] [employer] (ADA) provides guidance for cutoff [...] Standards of Medical Care in Diabetes 2016, [place] [employer]. Diabetes Care. 2016.39(Suppl 1). Performed By: #### 2 4323-8 #### [facility] CLIA [id number] [address] [place] [address] Potassium [Moles/Vol] 4.4 mmol/L Normal 3.7-5.1 [facility] Comment on above: Order Comment: Speci [facility] Type: BLOOD SPECIMEN Performed By: #### 2 4323-8 #### [facility] CLIA [id number] 1 [place] [address] Protein [Mass/Vol] 6.8 g/dL Normal 6.3-8.0 [facility] Comment on above: Order Comment: Speci men Type: BLOOD SPECIMEN Performed By: #### 2 4323-8 #### [facility] CLIA [id number] 1 [place] [address] Sodium [Moles/Vol] 133 mmol/L Low 136-144 [facility] Comment on above: Order Comment: Speci men Type: BLOOD SPECIMEN Performed By: #### 2 4323-8 #### [facility] CLIA [id number] 1 [place] [address] Urea nitrogen [Mass/Vol] 14 mg/dL Normal 9-24 [facility] Comment on above: Order Comment: Speci men Type: BLOOD SPECIMEN Performed By: #### 2 4323-8 #### [facility] CLIA [id number] 1 [place] [address] CBC W Auto Differential pane l (Bld)on 01-21-2021 Basophils (Bld) [#/Vol] 0.12 10*3/uL High <0.11 [facility] Comment on above: Order Comment: Speci men Type: BLOOD SPECIMEN Performed By: #### 5 7021-8 #### [facility] CLIA [id number] 1 [place] [address] Basophils/100 WBC (Bld) 0.8 % Normal A [facility] Comment on above: Order Comment: Speci men Type: BLOOD SPECIMEN Performed By: #### 5 7021-8 #### [facility] CLIA [id number] 1 [place] [address] Differential cell count method Nom (Bld) Auto Normal [facility] Comment on above: Order Comment: Speci men Type: BLOOD SPECIMEN Performed By: #### 5 7021-8 #### [facility] CLIA [id number] 1 [place] [address] Eosinophils (Bld) [#/Vol] 0.19 10*3/uL Normal <0.46 [facility] Comment on above: Order Comment: Speci men Type: BLOOD SPECIMEN Performed By: #### 5 7021-8 #### [facility] CLIA [id number] 1 [place] [address] Eosinophils/100 WBC (Bld) 1.2 % Normal [facility] Comment on above: Order Comment: Speci men Type: BLOOD SPECIMEN Performed By: #### 5 7021-8 #### [facility] CLIA [id number] [address] [place] [address] Erythrocyte distribution width (RBC) [Ratio] 15.0 % Normal 11.5-15.0 [facility] Comment on above: Order Comment: Speci men Type: BLOOD SPECIMEN Performed By: #### 5 7021-8 #### [facility] CLIA [id number] [address] [place] [address] Hematocrit (Bld) [Volume fraction] 43.1 % Normal 39.0-51.0 [facility] Comment on above: Order Comment: Speci men Type: BLOOD SPECIMEN Performed By: #### 5 7021-8 #### [facility] CLIA [id number] 1 [place] [address] Hemoglobin (Bld) [Mass/Vol] 13.7 g/dL Normal 13.0-17.0 [facility] Comment on above: Order Comment: Speci men Type: BLOOD SPECIMEN Performed By: #### 5 7021-8 #### [facility] CLIA [id number] [address] [place] [address] IMMATURE GRAN % 0.9 % Normal [facility] Comment on above: Order Comment: Speci men Type: BLOOD SPECIMEN Performed By: #### 5 7021-8 #### [facility] CLIA [id number] [address] [place] [address] IMMATURE GRAN ABS 0.14 k/uL High <0.10 [facility] Comment on above: Order Comment: Speci men Type: BLOOD SPECIMEN Performed By: #### 5 7021-8 #### [facility] CLIA [id number] 1 [place] [address] Lymphocytes (Bld) [#/Vol] 2.45 10*3/uL Normal 1.00-4.00 [facility] Comment on above: Order Comment: Speci men Type: BLOOD SPECIMEN Performed By: #### 5 7021-8 #### [facility] CLIA [id number] 1 [place] [address] Lymphocytes/100 WBC (Bld) 15.9 % Normal [facility] Comment on above: Order Comment: Speci men Type: BLOOD SPECIMEN Performed By: #### 5 7021-8 #### [facility] CLIA [id number] 1 [place] [address] MCH (RBC) [Entitic mass] 30.4 pg Normal 26.0-34.0 [facility] Comment on above: Order Comment: Speci men Type: BLOOD SPECIMEN Performed By: #### 5 7021-8 #### [facility] CLIA [id number] 1 [place] [address] MCHC (RBC) [Mass/Vol] 31.8 g/dL Normal 30.5-36.0 [facility] Comment on above: Order Comment: Speci men Type: BLOOD SPECIMEN Performed By: #### 5 7021-8 #### [facility] CLIA [id number] 1 [place] [address] MCV (RBC) [Entitic vol] 95.8 fL Normal 80.0-100.0 [facility] Comment on above: Order Comment: Speci men Type: BLOOD SPECIMEN Performed By: #### 5 7021-8 #### [facility] CLIA [id number] 1 [place] [address] Monocytes (Bld) [#/Vol] 0.76 10*3/uL Normal <0.87 [facility] Comment on above: Order Comment: Speci men Type: BLOOD SPECIMEN Performed By: #### 5 7021-8 #### [facility] CLIA [id number] 1 [place] [address] Monocytes/100 WBC (Bld) 4.9 % Normal [facility] Comment on above: Order Comment: Speci men Type: BLOOD SPECIMEN Performed By: #### 5 7021-8 #### [facility] CLIA [id number] 1 [place] [address] Neutrophils (Bld) [#/Vol] 11.76 10*3/uL High 1.45-7.50 [facility] Comment on above: Order Comment: Speci men Type: BLOOD SPECIMEN Performed By: #### 5 7021-8 #### [facility] CLIA [id number] 1 [place] [address] Neutrophils/100 WBC (Bld) 76.3 % Normal [facility] Comment on above: Order Comment: Speci men Type: BLOOD SPECIMEN Performed By: #### 5 7021-8 #### [facility] CLIA [id number] 1 [place] [address] Nucleated RBC (Bld) [#/Vol] 10*3/uL Normal <0.01 [facility] Comment on above: Order Comment: Speci men Type: BLOOD SPECIMEN Performed By: #### 5 7021-8 #### [facility] CLIA [id number] 1 [place] [address] Nucleated RBC/100 WBC (Bld) [Ratio] 0.0 /100 WBC Normal 0.0 [facility] Comment on above: Order Comment: Speci men Type: BLOOD SPECIMEN Performed By: #### 5 7021-8 #### [facility] CLIA [id number] 1 [place] [address] Platelet mean volume (Bld) [Entitic vol] 10.3 fL Normal 9.0-12.7 [facility] Comment on above: Order Comment: Speci men Type: BLOOD SPECIMEN Performed By: #### 5 7021-8 #### [facility] CLIA [id number] 1 [place] [address] Platelets (Bld) [#/Vol] 180 10*3/uL Normal 150-400 [facility] Comment on above: Order Comment: Speci men Type: BLOOD SPECIMEN Performed By: #### 5 7021-8 #### [facility] CLIA [id number] 1 [place] [address] RBC (Bld) [#/Vol] 4.50 10*6/uL Normal 4.20-6.00 [facility] Comment on above: Order Comment: Speci men Type: BLOOD SPECIMEN Performed By: #### 5 7021-8 #### [facility] CLIA [id number] 1 [place] [address] WBC (Bld) [#/Vol] 15.42 10*3/uL High 3.70-11.00 [facility] Comment on above: Order Comment: Speci men Type: BLOOD SPECIMEN Performed By: #### 5 7021-8 #### [facility] CLIA [id number] [address] [place] [address] Comprehensive metabolic 2000 panelon 01-21-2021 Albumin [Mass/Vol] 4.0 g/dL Normal 3.9-4.9 [facility] Comment on above: Order Comment: Speci men Type: BLOOD SPECIMEN Performed By: #### 2 4323-8 #### [facility] CLIA [id number] 1 [place] [address] ALP [Catalytic activity/Vol] 196 U/L High 38-113 [facility] Comment on above: Order Comment: Speci men Type: BLOOD SPECIMEN Performed By: #### 2 4323-8 #### [facility] CLIA [id number] 1 [place] [address] ALT With P-5'-P [Catalytic activity/Vol] 37 U/L Normal 10-54 [facility] Comment on above: Order Comment: Speci men Type: BLOOD SPECIMEN Performed By: #### 2 4323-8 #### [facility] CLIA [id number] 1 [place] [address] Anion gap [Moles/Vol] 10 mmol/L Normal 9-18 [facility] Comment on above: Order Comment: Speci men Type: BLOOD SPECIMEN Performed By: #### 2 4323-8 #### [facility] CLIA [id number] 1 [place] [address] AST With P-5'-P [Catalytic activity/Vol] 29 U/L Normal 14-40 [facility] Comment on above: Order Comment: Speci men Type: BLOOD SPECIMEN Performed By: #### 2 4323-8 #### [facility] CLIA [id number] 1 [place] [address] Bilirubin [Mass/Vol] 0.4 mg/dL Normal 0.2-1.3 [facility] Comment on above: Order Comment: Speci men Type: BLOOD SPECIMEN Performed By: #### 2 4323-8 #### [facility] CLIA [id number] 1 [place] [address] Calcium [Mass/Vol] 8.6 mg/dL Normal 8.5-10.2 [facility] Comment on above: Order Comment: Speci men Type: BLOOD SPECIMEN Performed By: #### 2 4323-8 #### [facility] CLIA [id number] 1 [place] [address] Chloride [Moles/Vol] 99 mmol/L Normal 97-105 [facility] Comment on above: Order Comment: Speci men Type: BLOOD SPECIMEN Performed By: #### 2 4323-8 #### [facility] CLIA [id number] 1 [place] [address] CO2 [Moles/Vol] 25 mmol/L Normal 22-30 [facility] Comment on above: Order Comment: Speci men Type: BLOOD SPECIMEN Performed By: #### 2 4323-8 #### [facility] CLIA [id number] 1 [place] [address] Creatinine [Mass/Vol] 0.85 mg/dL Normal 0.73-1.22 [facility] Comment on above: Order Comment: Speci men Type: BLOOD SPECIMEN Performed By: #### 2 4323-8 #### [facility] CLIA [id number] 1 [place] [address] GFR/1.73 sq M.predicted MDRD (S/P/Bld) [Vol rate/Area] mL/min/{1.73_m2} Normal [facility] Comment on above: Order Comment: [...] GFR. Performed By: #### 2 4323-8 #### [facility] CLIA [id number] 1 [place] [address] Glucose [Mass/Vol] 156 mg/dL High 74-99 [facility] Comment on above: Order Comment: Speci men Type: BLOOD SPECIMEN Result Comment: The [place] Diabetes Association (ADA) provides guidance for cutoff [...] Standards of Medical Care in Diabetes 2016, [place] [employer]. Diabetes Care. 2016.39(Suppl 1). Performed By: #### 2 4323-8 #### [facility] CLIA [id number] 1 [place] [address] Potassium [Moles/Vol] 4.4 mmol/L Normal 3.7-5.1 [facility] Comment on above: Order Comment: Speci men Type: BLOOD SPECIMEN Performed By: #### 2 4323-8 #### [facility] CLIA [id number] 1 [place] [address] Protein [Mass/Vol] 7.3 g/dL Normal 6.3-8.0 [facility] Comment on above: Order Comment: Speci men Type: BLOOD SPECIMEN Performed By: #### 2 4323-8 #### [facility] CLIA [id number] 1 [place] [address] Sodium [Moles/Vol] 134 mmol/L Low 136-144 [facility] Comment on above: Order Comment: Speci men Type: BLOOD SPECIMEN Performed By: #### 2 4323-8 #### [facility] CLIA [id number] 1 [place] [address] Urea nitrogen [Mass/Vol] 16 mg/dL Normal 9-24 [facility] Comment on above: Order Comment: Speci men Type: BLOOD SPECIMEN Performed By: #### 2 4323-8 #### [facility] CLIA [id number] 1 [place] [address] Gas and Carbon monoxide pane l (BldV)on 01-21-2021 Base excess Calc (BldV) [Moles/Vol] 0.7 mmol/L Normal 0-2 [facility] Comment on above: Order Comment: Speci men Type: BLOOD SPECIMEN Performed By: #### 5 7021-8 #### [facility] CLIA [id number] 1 [place] [address] Body temperature 97.7 [degF] Normal [facility] Comment on above: Order Comment: Speci men Type: BLOOD SPECIMEN Performed By: #### 5 7021-8 #### [facility] CLIA [id number] 1 [place] [address] CALCIUM IONIZED, PH CORRECTED 1.10 mmol/L Normal 1.08-1.30 [facility] Comment on above: Order Comment: Speci men Type: BLOOD SPECIMEN Performed By: #### 5 7021-8 #### [facility] CLIA [id number] 1 [place] [address] Calcium.ionized (BldV) [Mass/Vol] 1.13 mmol/L Normal 1.08-1.30 [facility] Comment on above: Order Comment: Speci men Type: BLOOD SPECIMEN Performed By: #### 5 7021-8 #### [facility] CLIA [id number] [address] [place] [address] Carboxyhemoglobin (BldV) [Mass fraction] 2.2 % High 0.0-2.0 [facility] Comment on above: Order Comment: Speci men Type: BLOOD SPECIMEN Result Comment: Carb oxyhemoglobin Reference Range for Smokers: 2.0-8.0% Performed By: #### 5 7021-8 #### [facility] CLIA [id number] [address] [place] [address] CO2 (BldV) [Partial pressure] 51 mm[Hg] Normal 42-55 [facility] Comment on above: Order Comment: Speci men Type: BLOOD SPECIMEN Performed By: #### 5 7021-8 #### [facility] CLIA [id number] [address] [place] [address] CO2 [Moles/Vol] 24.0 mmol/L Low 25-29 [facility] Comment on above: Order Comment: Speci men Type: BLOOD SPECIMEN Performed By: #### 5 7021-8 #### [facility] CLIA [id number] [address] [place] [address] CO2 adjusted to patient's actual temperature (BldV) [Partial pressure] 50 mmHg Normal 42-55 [facility] Comment on above: Order Comment: Speci men Type: BLOOD SPECIMEN Performed By: #### 5 7021-8 #### [facility] CLIA [id number] [address] [place] [address] Glucose [Mass/Vol] 181 mg/dL High 60-105 [facility] Comment on above: Order Comment: Speci men Type: BLOOD SPECIMEN Performed By: #### 5 7021-8 #### [facility] CLIA [id number] 1 [place] [address] HCO3 (Bld) [Moles/Vol] 26.9 mmol/L Normal 24-28 [facility] Comment on above: Order Comment: Speci men Type: BLOOD SPECIMEN Performed By: #### 5 7021-8 #### [facility] CLIA [id number] [address] [place] [address] Hematocrit (Bld) [Volume fraction] 43.1 % Normal 39.0-51.0 [facility] Comment on above: Order Comment: Speci men Type: BLOOD SPECIMEN Performed By: #### 5 7021-8 #### [facility] CLIA [id number] [address] [place] [address] Hemoglobin (Bld) [Mass/Vol] 14.0 g/dL Normal 13.0-17.0 [facility] Comment on above: Order Comment: Speci men Type: BLOOD SPECIMEN Performed By: #### 5 7021-8 #### [facility] CLIA [id number] [address] [place] [address] Methemoglobin (Bld) [Mass fraction] % Normal 0.0-1.5 [facility] Comment on above: Order Comment: Speci men Type: BLOOD SPECIMEN Performed By: #### 5 7021-8 #### [facility] CLIA [id number] [address] [place] [address] O2 THERAPY NC = Nasal Cannula Normal [facility] Comment on above: Order Comment: Speci men Type: BLOOD SPECIMEN Performed By: #### 5 7021-8 #### [facility] CLIA [id number] [address] [place] [address] Oxygen (BldV) [Partial pressure] 150 mm[Hg] High 35-45 [facility] Comment on above: Order Comment: Speci men Type: BLOOD SPECIMEN Performed By: #### 5 7021-8 #### [facility] CLIA [id number] [address] [place] [address] Oxygen adjusted to patient's actual temperature (BldV) [Partial pressure] 147 mmHg High 35-45 [facility] Comment on above: Order Comment: Speci men Type: BLOOD SPECIMEN Performed By: #### 5 7021-8 #### [facility] CLIA [id number] [address] [place] [address] Oxygen saturation in Blood 97.6 % High 60-85 [facility] Comment on above: Order Comment: Speci men Type: BLOOD SPECIMEN Performed By: #### 5 7021-8 #### [facility] CLIA [id number] [address] [place] [address] Oxyhemoglobin (BldV) [Mass fraction] 95 % High 60-85 [facility] Comment on above: Order Comment: Speci men Type: BLOOD SPECIMEN Performed By: #### 5 7021-8 #### [facility] CLIA [id number] [address] [place] [address] pH (BldV) 7.34 [pH] Normal 7.32-7.42 [facility] Comment on above: Order Comment: Speci men Type: BLOOD SPECIMEN Performed By: #### 5 7021-8 #### [facility] CLIA [id number] [address] [place] [address] pH adjusted to patient's actual temperature (BldV) 7.35 Normal 7.32-7.42 [facility] Comment on above: Order Comment: Speci men Type: BLOOD SPECIMEN Performed By: #### 5 7021-8 #### [facility] CLIA [id number] [address] [place] [address] Potassium [Moles/Vol] 4.6 mmol/L Normal 3.5-5.0 [facility] Comment on above: Order Comment: Speci men Type: BLOOD SPECIMEN Performed By: #### 5 7021-8 #### [facility] CLIA [id number] [address] [place] [address] Sodium [Moles/Vol] 134 mmol/L Low 136-144 [facility] Comment on above: Order Comment: Speci men Type: BLOOD SPECIMEN Performed By: #### 5 7021-8 #### [facility] CLIA [id number] [address] [place] [address] HGB A1Con 01-21-2021 Average glucose Estimated from glycated hemoglobin (Bld) [Mass/Vol] 197 mg/dL Normal [facility] Comment on above: Order Comment: Speci men Type: BLOOD SPECIMEN Result Comment: eAG: (Estimated average glucose) is a calculated value from HgbA1c and is sales representative malt liquors of the average blood glucose level in the last 2-3 month period. Performed By: #### 5 7021-8 #### [facility] CLIA [id number] [address] [place] [address] HbA1c (Bld) [Mass fraction] 8.5 % High 4.3-5.6 [facility] Comment on above: Order Comment: Speci men Type: BLOOD SPECIMEN Result Comment: [place] Diabetes Association guidelines indicate that patients with HgbA1c in the range 5.7-6.4% are at increased risk for development of diabetes, and intervention by lifestyle modification may be beneficial. HgbA1c greater or equal to 6.5% is considered diagnostic of diabetes. Performed By: #### 5 7021-8 #### [facility] CLIA [id number] [address] [place] [address] Magnesium SerPl-ncon 01-21 Magnesium [Mass/Vol] 2.0 mg/dL Normal 1.7-2.3 [facility] Comment on above: Order Comment: Speci men Type: BLOOD SPECIMEN Performed By: #### 5 7021-8 #### [facility] CLIA [id number] [address] [place] [address] PROCALCITONIN (LAB)on 2020 Procalcitonin [Mass/Vol] 0.13 ng/mL High <0.09 [facility] Comment on above: Order Comment: Speci men Type: BLOOD SPECIMEN Result Comment: For a guided interpretation of test results, please visit the Change in Procalcitonin Calculator, [email or web address]. Performed By: #### P ROCAL #### [facility] CLIA [id number] [address] [place] [address] Phosphate SerPl-mCncon 01-21 Phosphate [Mass/Vol] 3.9 mg/dL Normal 2.7-4.8 [facility] Comment on above: Order Comment: Speci men Type: BLOOD SPECIMEN Performed By: #### 5 7021-8 #### [facility] CLIA [id number] [address] [place] [address] SARS-CoV-2 RNA Resp Ql NAMAN+p robeon 01-21-2021 SARS-CoV-2 (COVID-19) RNA NAMAN+probe Ql (Resp) COVID 19 RESULT: SARS-CoV-2 (Agent of COVID-19) Not Detected by PCR. This test has been authorized by FDA under an Emergency Use Authorization (EUA) Normal [facility] Comment on above: Performed By: #### 9 4500-6 ####[facility] [id number] [place] [address] STAPH AUREUS PCRon 1 S. aureus and MRSA panel NAMAN+probe (Nose) Normal Negative [facility] Comment on above: Order Comment: Speci men Type: SWAB OF INTERNAL NOSE Result Comment: Nega tive for Staphylococcus aureus by PCR. Negative for MRSA by PCR Performed By: #### S APCR #### [facility] CLIA [id number] 1 [place] [id number] HISTORY PHYSICALon 1 HISTORY PHYSICAL HNO ID: [id number] Author: Mikhail Vinson MD Service: Cardiovascular Medicine Author Type: Physician Type: HANDP Filed: 01/21/2021 11:36 AM Note Text: HISTORY AND PHYSICAL EXAMINATION SERVICE DATE: 01/20/2021 SERVICE TIME: 7:50 PM PRIMARY CARE PHYSICIAN: Nain Paez MD Subjective CHIEF COMPLAINT: Chest Pain [...] was kept on drip. Patient transferred to [facility] under EP for possible ablation. Most [...] - ( (more content not included)... Normal [facility] XA-Cardiac IMPORTon 01-19-20 21 XA-Cardiac IMPORT Images were obtained outside of [facility] [id number] Normal [facility] CNOVon 09-11-2018 CNOV Office Visit (PLWDMR ) -------- DERRELL HOYT ([id number]) 1965 M Date Time Provider Department 09/11/18 8:00 AM RABIA POE (SOLIT[facility]) PLWDMR During your visit today, we recorded the following information about you: Temperature Pulse Respiration Blood pressure 98.2 degrees 87/minute 18/minute 176/99 Rabia Poe APRN.CNP 09/23/2018 5:07 AM Signed DATE VISIT: 09/11/2018 REASON FOR VISIT: Follow-up, right great toe and left lower leg wounds. HISTORY OF PRESENT ILLNESS: Derrell Hoyt is a 53 year old male who presents to the [facility] for further evaluation and [...] Rubor of Dependency: Negative (Y) Positive (N) [place] Examination: Leg/ankle Measurements Right Calf: 50.0 cm [...] Double layer F tubigrip applied bilaterally. DARELL WRAP/SurePress/Tubi-material scheduler : Foot is warm and pink before [...] Rx given. Rx: compression stockings Rabia Poe, KELIN.DETECTIVE [place] Charge Capture: [id number] Barbara Lorenzo MA, FAHEEM 09/11/2018 1:17 PM [...] Lives with a room mate, is in penitentiary. Thickened and scaling on BiLE 1. Right first toe plantar surface: Wound remains healed. 2. Left posterior calf: Wound remains healed Legs washed with dial soap and water. Vaseline ointment liberally applied to both lower legs. Double layer F tubigrip applied bilaterally. DARELL WRAP/SurePress/Tubi-material scheduler : Foot is warm and pink before [...] following changes to the Wound Center at [phone] or go to the Emergency Department:? Fever [...] cm Rabia Poe/ Referring Provider: LUKAS PEREZ [[id number]] Allergies As of Date: 09/11/2018 (No Known [...] following changes to the Wound Center at [phone] or go to the Emergency Department:? Fever [...] cm Length : 51.0 cm Rabia Poe/ Visit Notes: >> Barbara (Faheem) FAHEEM Lorenzo [...] Lives with a room mate, is in penitentiary. Thickened and scaling on BiLE 1. Right first toe plantar surface: Wound remains healed. 2. Left posterior calf: Wound remains healed Legs washed with dial soap and water. Vaseline ointment liberally applied to both lower legs. Double layer F tubigrip applied bilaterally. DARELL WRAP/SurePress/Tubi-material scheduler : Foot is warm and pink before [...] Return to the wound center to see Altoya as needed Make appt to see your [...] Encounter Status:Closed by RABIA POE on 09/23/18 [facility] PROGRESSon 09-11-2018 Protein mass conc HNO ID: [id number] Author: Rabia Soto ([employer] [place] [employer]yer) Consuelo Service: ? Author Type: Nurse Practitioner Type: Progress Notes Filed: 09/23/2018 5:07 AM Note Text: DATE VISIT: 09/11/2018 REASON FOR VISIT: Follow-up, right great toe and left lower leg wounds. HISTORY OF PRESENT ILLNESS: Derrell Hoyt is a 53 year old male who presents to the [facility] for further evaluation and [...] Rubor of Dependency: Negative (Y) Positive (N) [place] Examination: Leg/ankle Measurements Right Calf: 50.0 cm [...] Double layer F tubigrip applied bilaterally. DARELL WRAP/SurePress/Tubi-material scheduler : Foot is warm and pink before [...] Rx given. Rx: compression stockings Rabia Poe APRN.[facility] [place] Charge Capture: [id number] [facility] (PLWDMR ) -------- DERRELL HOYT ([id number]) 1965 M Date Time Provider Department 09/04/18 2:45 PM RABIA POE, ([facility] [place]) PLWDMR During your visit today, we recorded [...] Lives with a room mate, is in penitentiary. Thickened and scaling on BiLE 1. Right [...] [facility] for diabetic shoes CHIRAG Luong, KELIN.[facility] [place] 09/14/2018 10:40 AM Signed DATE VISIT: REASON FOR VISIT: Non-healing wounds of the right great toe and left lower leg. HISTORY OF PRESENT ILLNESS: Derrell Hoyt is a 53 year old male who presents to the [facility] for further evaluation and [...] Rubor of Dependency: Negative (Y) Positive (N) [place] Examination: Leg/ankle Measurements Right Calf: 50.0 cm [...] Also, venous doppler study to evaluate for medical transcriptionist incompetence. Follow-up is scheduled in 1 week, sooner with any concerns or worsening symptoms. - See patient instructions for further recommendations. - Pt education along with discharge instructions given to patient - Discussed Red Flag signs and when to go to ER. - Pt agreeable with plan and verbalize understanding. Rabia Poe APRN.[facility] [place] Charge Capture: [id number] Yasemin Inman, RN, RN 09/04/2018 2:48 PM [...] Daily - Drink a protein shake daily: Angelitoier gabriela Report any of the following changes to the Wound Center at [phone] or go to the Emergency Department:? Fever [...] following changes to the Wound Center at [phone] or go to the Emergency Department:? Fever [...] insert Rabia Poe/veronika Visit Notes: >> Barbara (Faheem) FAHEEM Lorenzo FriSep 04, 2018 2:37 PM Status: Signed [...] to ANY of questions 5-9, consult the [facility] >> Yasemin (Rn) CHIRAG Inman FriSep 04, 2018 2:44 PM [...] Lives with a room mate, is in penitentiary. Thickened and scaling on BiLE 1. Right [...] Encounter Status:Closed by RABIA POE on 09/14/18 [facility] PROGRESSon 09-04-2018 Protein mass conc HNO ID: [id number] Author: Rabia Soto ([employer] Sawyer) Consuelo Service: ? Author Type: Nurse Practitioner Type: Progress Notes Filed: 09/14/2018 10:40 AM Note Text: DATE VISIT: REASON FOR VISIT: Non-healing wounds of the right great toe and left lower leg. HISTORY OF PRESENT ILLNESS: Derrell Hoyt is a 53 year old male who presents to the [facility] for further evaluation and [...] Rubor of Dependency: Negative (Y) Positive (N) [place] Examination: Leg/ankle Measurements Right Calf: 50.0 cm [...] Also, venous doppler study to evaluate for medical transcriptionist incompetence. Follow-up is scheduled in 1 week, sooner with any concerns or worsening symptoms. - See patient instructions for further recommendations. - Pt education along with discharge instructions given to patient - Discussed Red Flag signs and when to go to ER. - Pt agreeable with plan and verbalize understanding. Rabia Poe APRN.[place] Charge Capture: [id number] [facility] 08-28-2018 [facility] Office Visit (PLWDMR ) -------- DERRELL HOYT ([id number]) 1965 M Date Time Provider Department 08/28/18 8:00 AM RABIA POE, ([place]) PLWDMR During your visit today, we recorded the following information about you: Temperature Pulse Respiration Blood pressure 98.4 degrees 93/minute 19/minute 144/65 Rabia Poe APRN.[place] 09/07/2018 4:56 AM Signed DATE VISIT: 08/28/2018 REASON FOR VISIT: Non-healing wounds of the right great toe and left lower leg. HISTORY OF PRESENT ILLNESS: Derrell Hoyt is a 53 year old male who presents to the [facility] for further evaluation and [...] Rubor of Dependency: Negative (Y) Positive (N) [place] Examination: Leg/ankle Measurements Right Calf: 50.0 cm [...] Also, venous doppler study to evaluate for medical transcriptionist incompetence. Follow-up is scheduled in 1 week, sooner with any concerns or worsening symptoms. - See patient instructions for further recommendations. - Pt education along with discharge instructions given to patient - Discussed Red Flag signs and when to go to ER. - Pt agreeable with plan and verbalize understanding. Rabia Poe APRN.[place] Charge Capture: [id number] Yasemin Inman, RN, RN 08/28/2018 8:35 AM [...] Lives with a room mate, is in penitentiary. Thickened and scaling on BiLE 1. Right [...] your legs Rx: Doxycycline and Bactrim Yasemin Inman, RN Yasemin Inman, RN, RN 08/28/2018 8:32 AM Signed WOUND [...] following changes to the Wound Center at [phone] or go to the Emergency Department:? Fever [...] positive [Z22.322] Order(s):PVR LEG [facility] [[id number]] Order #: [id number] FUTURE VENOUS INCOMPETENCY [facility] [[id number]] Order #: [id number] FUTURE sulfamethoxazole-trimeth oprim (BACTRIM DS) 800-160 mg [...] following changes to the Wound Center at [phone] or go to the Emergency Department:? Fever [...] Lives with a room mate, is in penitentiary. Thickened and scaling on BiLE 1. Right [...] Encounter Status:Closed by RABIA POE on 09/07/18 [facility] PROGRESSon 08-28-2018 Protein mass conc HNO ID: [id number] Author: Rabia Soto (Roque Poe Service: ? Author Type: Nurse Practitioner Type: Progress Notes Filed: 09/07/2018 4:56 AM Note Text: DATE VISIT: 08/28/2018 REASON FOR VISIT: Non-healing wounds of the right great toe and left lower leg. HISTORY OF PRESENT ILLNESS: Derrell Hoyt is a 53 year old male who presents to the [facility] for further evaluation and [...] Rubor of Dependency: Negative (Y) Positive (N) [place] Examination: Leg/ankle Measurements Right Calf: 50.0 cm [...] Also, venous doppler study to evaluate for medical transcriptionist incompetence. Follow-up is scheduled in 1 week, sooner with any concerns or worsening symptoms. - See patient instructions for further recommendations. - Pt education along with discharge instructions given to patient - Discussed Red Flag signs and when to go to ER. - Pt agreeable with plan and verbalize understanding. Rabia Poe APRN.CNP Charge Capture: [id number] [facility] 08-21-2018 CN Office Visit (PLWDMR ) -------- DERRELL HOYT ([id number]) 1965 M Date Time Provider Department 08/21/18 8:30 AM RABIA POE ([place]) PLWD During your visit today, we recorded the following information about you: Temperature Pulse Respiration Blood pressure 98.1 degrees 97/minute 18/minute 195/95 Rabia Poe APRN.CNP 10/03/2018 2:53 PM Addendum DATE OF CONSULTATION: 08/21/2018 REQUESTING PHYSICIAN: Elodia Wagner CNP CONSULTING PROVIDER: Rabia Poe APRN.CNP REASON FOR CONSULTATION: Non-healing wounds of the right great toe and left lower leg. HISTORY OF PRESENT ILLNESS: Derrell Hoyt is a 53 year old male who presents to the [facility] for further evaluation and [...] Rubor of Dependency: Negative (Y) Positive (N) [place] Examination: Comments: Edema Right Calf: 56.5 had [...] Healing Rate/#Weeks: Initial assessment Wound Bed (Pre-debridement): Weinert Wound Bed (Post-debridement): N/A Undermining: No Tunneling: [...] Discussed with patient need for following a senior environmental technician for foot care due to his diabetes, [...] Also, venous doppler study to evaluate for medical transcriptionist incompetence. Follow-up is scheduled in 1 week, sooner with any concerns or worsening symptoms. - See patient instructions for further recommendations. - Pt education along with discharge instructions given to patient - Discussed Red Flag signs and when to go to ER. - Pt agreeable with plan and verbalize understanding. Rabia Poe APRN.[place] Charge Capture: [id number] Marivel Benton, RN, RN 08/21/2018 9:47 AM [...] Lives with a room mate, is in penitentiary. Thickened and scaling on BiLE 1. Right [...] given and shoe given for BiLE DARELL WRAP/SurePress/Tubi-material scheduler : Foot is warm and pink before [...] Discussed with patient need for following a senior environmental technician for foot care due to his diabetes, [...] your high blood pressure. Marivel Benton RN Marivel Benton, RN, RN 08/21/2018 9:34 AM Addendum WOUND CARE INSTRUCTIONS- Derrell F Hoyt Wound location: Right great toe Leave [...] gauze 7. Change your dressing daily DARELL WRAP/SurePress/Tubi-material scheduler : Foot is warm and pink before [...] following changes to the Wound Center at [phone] or go to the Emergency Department:? Fever [...] blood pressure. Rabia Poe/ monika Referring Provider: ELODIA WAGNER ([facility]) [[id number]] Allergies As of Date: 08/21/2018 (No Known Allergies) Date Reviewed: 08/20/2018 Reviewed by: Barbara (Faheem) FAHEEM Lorenzo - [...] gauze 7. Change your dressing daily DARELL WRAP/SurePress/Tubi-material scheduler : Foot is warm and pink before [...] following changes to the Wound Center at [phone] or go to the Emergency Department:? Fever [...] about your high blood pressure. Rabia Poe/ [facility] Visit Notes: >> Marivel (Rn) [...] Lives with a room mate, is in penitentiary. Thickened and scaling on BiLE 1. Right [...] given and shoe given for BiLE DARELL WRAP/SurePress/Tubi-material scheduler : Foot is warm and pink before [...] Discussed with patient need for following a senior environmental technician for foot care due to his diabetes, [...] Encounter Status:Closed by RABIA POE on 08/31/18 [facility] PROGRESSon 08-21-2018 Protein mass conc HNO ID: [id number] Author: Rabia Herman) Consuelo Service: ? Author Type: Nurse Practitioner Type: Progress Notes Filed: 10/03/2018 2:53 PM Note Text: DATE OF CONSULTATION: 08/21/2018 REQUESTING PHYSICIAN: Elodia Wagner CNP CONSULTING PROVIDER: Rabia Poe APRN.CNP REASON FOR CONSULTATION: Non-healing wounds of the right great toe and left lower leg. HISTORY OF PRESENT ILLNESS: Derrell Hoyt is a 53 year old male who presents to the [facility] for further evaluation and [...] Rubor of Dependency: Negative (Y) Positive (N) [place] Examination: Comments: Edema Right Calf: 56.5 had [...] Healing Rate/#Weeks: Initial assessment Wound Bed (Pre-debridement): Weinert Wound Bed (Post-debridement): N/A Undermining: No Tunneling: [...] Discussed with patient need for following a senior environmental technician for foot care due to his diabetes, [...] Also, venous doppler study to evaluate for medical transcriptionist incompetence. Follow-up is scheduled in 1 week, sooner with any concerns or worsening symptoms. - See patient instructions for further recommendations. - Pt education along with discharge instructions given to patient - Discussed Red Flag signs and when to go to ER. - Pt agreeable with plan and verbalize understanding. Rabia Poe, KELIN.[facility] Charge Capture: [id number] Normal [facility] Anaerobe Cultureon 9 Anaerobe Culture Sp. Request/Comment: - Eswab Culture Result - Moderate Mixed anaerobic danielle --> ABNORMAL ALERT No Clostridium perfringens isolated No Bacteroides fragilis group isolated. Critically abnormal [facility] Comment on above: Performed By: #### A NACUL #### [facility] [address] [place], [place] [address] JOSE CARLOSOVsil 08-20-2018 CNOV Office Visit (PLWDMR ) -------- DERRELL HOYT ([id number]) 1965 M Date Time Provider Department 08/20/18 [...] Signed DATE OF CONSULTATION: 08/20/2018 REQUESTING PHYSICIAN: Elodia Wagner CNP CONSULTING PROVIDER: Rabia Poe APRN.CNP REASON FOR CONSULTATION: Non-healing left calf stasis ulcer and right diabetic great toe ulcer. HISTORY OF PRESENT ILLNESS: Derrell Hoyt is a 53 year old male who presents to the [facility] for further evaluation and [...] Rubor of Dependency: Negative (Y) Positive (N) [place] Examination: Comments: Edema Measurements: Right Calf: 56.5 [...] prior to treatment was obtained. Thank you, Elodia Wagner CNP, for inviting us participate in the care of this patient. We appreciate the opportunity to assist. Please do not hesitate to call with any questions or concerns you may have regarding this patient's current and future wound care. Rabia Poe APRN.[facility] Charge Capture: [id number], [id number] Marivel Benton, RN, RN 08/20/2018 2:40 PM [...] Lives with a room mate, is in penitentiary. Thickened and scaling on BiLE BiLE toes: [...] Discussed with patient need for following a senior environmental technician for foot care due to his diabetes, [...] 2:27 PM Signed WOUND CARE INSTRUCTIONS- Derrell Hoyt [...] Drink a protein shake daily : Premier gabriela Report any of the following changes to the Wound Center at [phone] or go to the Emergency Department:? Fever [...] Rx Clobetasol Rabia Poe/ monika Referring Provider: ELODIA WAGNER ([facility]) [[id number]] Allergies As of Date: 08/20/2018 (No Known Allergies) Date Reviewed: 08/20/2018 Reviewed by: Barbara Ramsey) FAHEEM Lorenzo - Fully Assessed Reason for Visit: Wound Evaluation [1021] Cmt: left lower leg Primary Visit Diagnosis:Diabetic ulcer of toe of right foot associated with type 2 diabetes mellitus, with necrosis of muscle (HCC) [E11.621, L97.513] Order(s):WOUND CULTURE AND GRAM STAIN [SQWCUL] Order #: [id number]. #:[id number] ANAEROBE CULTURE [SQANACUL] Order #: [id number]. #:[id number] FUNGAL CULTURE [SQFCUL] Order #: [id number]. #:[id number] CBC + DIFF [SQCBCDIF] Order #: [id number] FUTURE COMP METABOLIC PANEL [SQCMP] Order #: [id number] FUTURE SED RATE WESTERGREN [SQWSR] Order #: [id number] FUTURE C-REACTIVE PROTEIN (CRP) [SQCRP] Order #: [id number] FUTURE HGB A1C [TOAJP7N] Order #: [id number] FUTURE PREALBUMIN BLD [SQPREALB] Order #: [id number] FUTURE ZINC BLD [SQZINC] Order #: [id number] FUTURE XR FOOT GENERAL 3V AP/LAT/OBL RT [[id number]] Order #: [id number] FUTURE WOUND CULTURE AND GRAM STAIN [SQWCUL] Order #: [id number]. #:[id number] silver sulfADIAZINE (SILVADENE) 1 % creamApply to [...] Robert Hoyt Wound location: Right great toe 1. [...] following changes to the Wound Center at [phone] or go to the Emergency Department:? Fever [...] Visit Notes: >> Marivel (Rn) CHIRAG Benton [facility] Aug 20, 2018 1:19 PM Status: [...] Lives with a room mate, is in penitentiary. Thickened and scaling on BiLE BiLE toes: [...] Discussed with patient need for following a senior environmental technician for foot care due to his diabetes, [...] Encounter Status:Closed by RABIA POE on 09/03/18 [facility] Fungal Cultureon 08-20-2018 Fungal Culture Sp. Request/Comment: - Eswab Culture Result - No Fungus isolated after 32 days [facility] Comment on above: Performed By: #### W CUL #### [facility] [address] [place] [id number] HISTORY PHYSICALon HISTORY PHYSICAL HNO ID: [id number] Author: Rabia Poe Service: ? Author Type: Nurse Practitioner Type: HANDP Filed: 09/03/2018 6:14 AM Note Text: DATE OF CONSULTATION: 08/20/2018 REQUESTING PHYSICIAN: Elodia Wagner CNP CONSULTING PROVIDER: Rabia Poe APRN.CNP REASON FOR CONSULTATION: Non-healing left calf stasis ulcer and right diabetic great toe ulcer. HISTORY OF PRESENT ILLNESS: Derrell Hoyt is a 53 year old male who presents to the [facility] for further evaluation and [...] Rubor of Dependency: Negative (Y) Positive (N) [place] Examination: Comments: Edema Measurements: Right Calf: 56.5 [...] prior to treatment was obtained. Thank you, Elodia Wagner CNP, for inviting us participate in the care of this patient. We appreciate the opportunity to assist. Please do not hesitate to call with any questions or concerns you may have regarding this patient's current and future wound care. Rabia Poe, KELIN.[place] Charge Capture: [id number], [id number] [facility] PROCEDUREon 08-20-2018 Protein mass conc HNO ID: [id number] Author: Rabia Poe Service: ? Author Type: [...] sterile normal saline and dressings were applied. Normal [facility] Wound Culture/Stainon 2018 Wound Culture/Stain Sp. Request/Comment: - Eswab Smear Result - Many Gram positive cocci in pairs --> ABNORMAL ALERT Few --> ABNORMAL ALERT Gram negative bacilli --> ABNORMAL ALERT Rare --> ABNORMAL ALERT Gram positive diphtheroid-like bacilli --> ABNORMAL ALERT Few Polymorphonuclear leukocytes Many Red Blood Cells Culture Result - Moderate Proteus mirabilis --> ABNORMAL ALERT Call the lab ([phone]) in 72 hours if susceptibility testing for [...] F Meropenem SUSCEPTIBLE <=0.25 F Critically abnormal [facility] Comment on above: Performed By: #### W CUL #### [place] [address] Wound Culture/Stain Sp. Request/Comment: - Eswab Smear [...] on --> ABNORMAL ALERT 2.28.19 AT 1430 ([id number]) --> ABNORMAL ALERT Rare --> ABNORMAL ALERT [...] F Doxycycline SUSCEPTIBLE 2 F Critically abnormal [facility] Comment on above: Performed By: #### W CUL #### [place] [address] [place] [address] XR FOOT 3V AP/LAT/OBL RTon 0 08-20-2018 [...] related to an underlying inflammatory arthropathy. 1. Hydrologist: HARRIET Transcribe Date/Time: Aug 20 2018 3:38P Dictated by : TRUE ZAPIEN MD This examination was interpreted and the report reviewed and electronically signed by: TRUE ZAPIEN MD on Aug 20 2018 3:40PM EST [id number] [facility] Vital Signs Date Time Vital Sign Value Performing Clinician Facility 12-29-2024 09:49-0400 Body mass index (BMI) [Ratio] 43.9 kg/m2 Morgan Barajas MANUFACTURING MAINTENANCE MECHANIC-C Work Phone: [facility] 12-29-2024 09:49-0400 Body temperature 97.5 [degF] Morgan Barajas MANUFACTURING MAINTENANCE MECHANIC-C Work Phone: [facility] 12-29-2024 09:49-0400 Diastolic blood pressure 53 mm[Hg] Morgan Barajas MANUFACTURING MAINTENANCE MECHANIC-C Work Phone: [facility] 12-29-2024 09:49-0400 Heart rate 89 /min Morgan Barajas MANUFACTURING MAINTENANCE MECHANIC-C Work Phone: [facility] 12-29-2024 09:49-0400 Inhaled oxygen flow rate 2 L/min Morgan Barajas MANUFACTURING MAINTENANCE MECHANIC-C Work Phone: [facility] 12-29-2024 09:49-0400 Respiratory rate 18 /min Morgan Barajas MANUFACTURING MAINTENANCE MECHANIC-C Work Phone: [facility] 12-29-2024 09:49-0400 Systolic blood pressure 105 mm[Hg] Morgan Barajas MANUFACTURING MAINTENANCE MECHANIC-C Work Phone: [facility] 12-28-2024 15:41-0400 Heart rate 74 /min Morgan Barajas MANUFACTURING MAINTENANCE MECHANIC-C Work Phone: [facility] 12-28-2024 15:41-0400 Respiratory rate 18 /min Morgan Barajas MANUFACTURING MAINTENANCE MECHANIC-C Work Phone: [facility] 12-28-2024 12:28-0400 Body temperature 97.9 [degF] Morgan Barajas MANUFACTURING MAINTENANCE MECHANIC-C Work Phone: [facility] 12-28-2024 12:28-0400 Diastolic blood pressure 63 mm[Hg] Morgan Barajas MANUFACTURING MAINTENANCE MECHANIC-C Work Phone: [facility] 12-28-2024 12:28-0400 Inhaled oxygen flow rate 1 L/min Morgan Barajas MANUFACTURING MAINTENANCE MECHANIC-C Work Phone: [facility] 12-28-2024 12:28-0400 SaO2% (BldA) [Mass fraction] 99 % Morgan Barajas MANUFACTURING MAINTENANCE MECHANIC-C Work Phone: [facility] 12-28-2024 12:28-0400 Systolic blood pressure 111 mm[Hg] Morgan Barajas MANUFACTURING MAINTENANCE MECHANIC-C Work Phone: [phone] [place] [address] 12-27-2024 23:31-0400 Inhaled oxygen concentration 30 % Morgan Barajas MANUFACTURING MAINTENANCE MECHANIC-C Work Phone: [facility] 12-27-2024 10:58-0400 Body height 185.42 cm Morgan Barajas MANUFACTURING MAINTENANCE MECHANIC-C Work Phone: [facility] 12-27-2024 10:58-0400 Body weight 147 kg Morgan Barajas MANUFACTURING MAINTENANCE MECHANIC-C Work Phone: [facility] 12-27-2024 03:07-0400 Body mass index (BMI) [Ratio] 42.7 kg/m2 Morgan Barajas MANUFACTURING MAINTENANCE MECHANIC-C Work Phone: [facility] 12-23-2024 19:18-0400 Body temperature 98.8 [degF] Morgan Barajas MANUFACTURING MAINTENANCE MECHANIC-C Work Phone: [facility] 12-23-2024 19:18-0400 Diastolic blood pressure 58 mm[Hg] Morgan Barajas MANUFACTURING MAINTENANCE MECHANIC-C Work Phone: [facility] 12-23-2024 19:18-0400 Heart rate 79 /min Morgan Barajas MANUFACTURING MAINTENANCE MECHANIC-C Work Phone: [facility] 12-23-2024 19:18-0400 Respiratory rate 19 /min Morgan Barajas MANUFACTURING MAINTENANCE MECHANIC-C Work Phone: [facility] 12-23-2024 19:18-0400 SaO2% (BldA) [Mass fraction] 99 % Morgan Barajas MANUFACTURING MAINTENANCE MECHANIC-C Work Phone: [facility] 12-23-2024 19:18-0400 Systolic blood pressure 111 mm[Hg] Morgan Barajas MANUFACTURING MAINTENANCE MECHANIC-C Work Phone: [facility] 12-23-2024 18:00-0400 Inhaled oxygen flow rate 1 L/min Morgan Barajas MANUFACTURING MAINTENANCE MECHANIC-C Work Phone: [facility] 12-23-2024 12:53-0400 Body height 185.42 cm Morgan Barajas MANUFACTURING MAINTENANCE MECHANIC-C Work Phone: [phone] [place] [address] 12-23-2024 12:53-0400 Body mass index (BMI) [Ratio] 43.7 kg/m2 Morgan Barajas MANUFACTURING MAINTENANCE MECHANIC-C Work Phone: [facility] 12-23-2024 12:53-0400 Body weight 150.3 kg Morgan Barajas MANUFACTURING MAINTENANCE MECHANIC-C Work Phone: [facility] 12-22-2024 10:20-0400 Body mass index (BMI) [Ratio] 43.9 kg/m2 Morgan Barajas MANUFACTURING MAINTENANCE MECHANIC-C Work Phone: [facility] 12-22-2024 10:20-0400 Body temperature 97.1 [degF] Morgan Barajas MANUFACTURING MAINTENANCE MECHANIC-C Work Phone: [facility] 12-22-2024 10:20-0400 Body weight 151.04 kg Morgan Barajas MANUFACTURING MAINTENANCE MECHANIC-C Work Phone: [facility] 12-22-2024 10:20-0400 Diastolic blood pressure 55 mm[Hg] Morgan Barajas MANUFACTURING MAINTENANCE MECHANIC-C Work Phone: [phone] [place] [address] 12-22-2024 10:20-0400 Heart rate 80 /min Morgan Barajas MANUFACTURING MAINTENANCE MECHANIC-C Work Phone: [facility] 12-22-2024 10:20-0400 Respiratory rate 18 /min Morgan Barajas MANUFACTURING MAINTENANCE MECHANIC-C Work Phone: [facility] 12-22-2024 10:20-0400 Systolic blood pressure 104 mm[Hg] Morgan Barajas MANUFACTURING MAINTENANCE MECHANIC-C Work Phone: [facility] 12-18-2024 09:35-0400 Inhaled oxygen flow rate 2 L/min Morgan Barajas MANUFACTURING MAINTENANCE MECHANIC-C Work Phone: [facility] 12-18-2024 09:18-0400 Heart rate 86 /min Morgan Barajas MANUFACTURING MAINTENANCE MECHANIC-C Work Phone: [facility] 12-18-2024 09:11-0400 Body temperature 98.6 [degF] Morgan Barajas MANUFACTURING MAINTENANCE MECHANIC-C Work Phone: [facility] 12-18-2024 09:11-0400 Diastolic blood pressure 54 mm[Hg] Morgan Barajas MANUFACTURING MAINTENANCE MECHANIC-C Work Phone: [facility] 12-18-2024 09:11-0400 Respiratory rate 16 /min Morgan Barajas MANUFACTURING MAINTENANCE MECHANIC-C Work Phone: [facility] 12-18-2024 09:11-0400 SaO2% (BldA) [Mass fraction] 93 % Morgan Barajas MANUFACTURING MAINTENANCE MECHANIC-C Work Phone: [facility] 12-18-2024 09:11-0400 Systolic blood pressure 104 mm[Hg] Morgan Barajas MANUFACTURING MAINTENANCE MECHANIC-C Work Phone: [facility] 12-18-2024 04:55-0400 Body mass index (BMI) [Ratio] 45.1 kg/m2 Morgan Barajas MANUFACTURING MAINTENANCE MECHANIC-C Work Phone: [facility] 12-18-2024 04:55-0400 Body weight 151 kg Morgan Barajas MANUFACTURING MAINTENANCE MECHANIC-C Work Phone: [facility] 12-16-2024 14:28-0400 Body height 182.88 cm Morgan Barajas MANUFACTURING MAINTENANCE MECHANIC-C Work Phone: [facility] 12-15-2024 22:00-0400 Body temperature 98.4 [degF] Morgan Barajas MANUFACTURING MAINTENANCE MECHANIC-C Work Phone: [facility] 12-15-2024 22:00-0400 Diastolic blood pressure 51 mm[Hg] Morgan Barajas MANUFACTURING MAINTENANCE MECHANIC-C Work Phone: [facility] 12-15-2024 22:00-0400 Heart rate 79 /min Morgan Barajas MANUFACTURING MAINTENANCE MECHANIC-C Work Phone: 6(413)539-8[address] [place] [address] 12-15-2024 22:00-0400 Respiratory rate 18 /min Morgan Barajas MANUFACTURING MAINTENANCE MECHANIC-C Work Phone: [facility] 12-15-2024 22:00-0400 SaO2% (BldA) [Mass fraction] 91 % Morgan Barajas MANUFACTURING MAINTENANCE MECHANIC-C Work Phone: 3(757)312-018299 [place] [address] 12-15-2024 22:00-0400 Systolic blood pressure 100 mm[Hg] Morgan Barajas MANUFACTURING MAINTENANCE MECHANIC-C Work Phone: 4(001)274-915799 [place] [address] 12-15-2024 20:33-0400 Body mass index (BMI) [Ratio] 45.3 kg/m2 Morgan Barajas MANUFACTURING MAINTENANCE MECHANIC-C Work Phone: [facility] 12-15-2024 20:33-0400 Body weight 151.6 kg Morgan Barajas MANUFACTURING MAINTENANCE MECHANIC-C Work Phone: 2(585)594-341499 [place] [address] 12-15-2024 20:15-0400 Inhaled oxygen flow rate 2 L/min Morgan Barajas MANUFACTURING MAINTENANCE MECHANIC-C Work Phone: [facility] 12-15-2024 18:39-0400 Body height 182.88 cm Morgan Barajas MANUFACTURING MAINTENANCE MECHANIC-C Work Phone: [facility] 11-30-2024 16:29-0400 Body temperature 97.8 [degF] Morgan Barajas MANUFACTURING MAINTENANCE MECHANIC-C Work Phone: [facility] 11-30-2024 16:29-0400 Diastolic blood pressure 54 mm[Hg] Morgan Barajas MANUFACTURING MAINTENANCE MECHANIC-C Work Phone: [facility] 11-30-2024 16:29-0400 Heart rate 73 /min Morgan Barajas MANUFACTURING MAINTENANCE MECHANIC-C Work Phone: 8(445)588-159699 [place] [address] 11-30-2024 16:29-0400 Respiratory rate 17 /min Morgan Barajas MANUFACTURING MAINTENANCE MECHANIC-C Work Phone: [facility] 11-30-2024 16:29-0400 SaO2% (BldA) [Mass fraction] 100 % Morgan Barajas MANUFACTURING MAINTENANCE MECHANIC-C Work Phone: 4(293)634-655299 [place] [address] 11-30-2024 16:29-0400 Systolic blood pressure 113 mm[Hg] Morgan Barajas MANUFACTURING MAINTENANCE MECHANIC-C Work Phone: 9(494)799-578699 [place] [address] 11-30-2024 14:48-0400 Inhaled oxygen flow rate 2 L/min Morgan Barajas MANUFACTURING MAINTENANCE MECHANIC-C Work Phone: 2(318)422-146399 [place] [address] 11-30-2024 12:43-0400 Body height 182.88 cm Morgan Barajas MANUFACTURING MAINTENANCE MECHANIC-C Work Phone: 0(159)558-807399 [place] [address] 11-30-2024 12:43-0400 Body mass index (BMI) [Ratio] 45.9 kg/m2 Morgan Barajas MANUFACTURING MAINTENANCE MECHANIC-C Work Phone: 1(317)264-978799 [place] [address] 11-30-2024 12:43-0400 Body weight 153.6 kg Morgan Barajas MANUFACTURING MAINTENANCE MECHANIC-C Work Phone: 3(711)863-533799 [place] [address] 11-19-2024 06:15-0400 Body mass index (BMI) [Ratio] 45.3 kg/m2 Morgan Barajas MANUFACTURING MAINTENANCE MECHANIC-C Work Phone: [facility] 11-19-2024 06:15-0400 Body weight 151.49 kg Morgan Barajas MANUFACTURING MAINTENANCE MECHANIC-C Work Phone: [facility] 11-19-2024 06:15-0400 Diastolic blood pressure 69 mm[Hg] Morgan Barajas MANUFACTURING MAINTENANCE MECHANIC-C Work Phone: [facility] 11-19-2024 06:15-0400 Heart rate 82 /min Morgan Barajas MANUFACTURING MAINTENANCE MECHANIC-C Work Phone: 9(742)107-614199 [place] [address] 11-19-2024 06:15-0400 Respiratory rate 20 /min Morgan Barajas MANUFACTURING MAINTENANCE MECHANIC-C Work Phone: [facility] 11-19-2024 06:15-0400 SaO2% (BldA) [Mass fraction] 92 % Morgan Barajas MANUFACTURING MAINTENANCE MECHANIC-C Work Phone: [facility] 11-19-2024 06:15-0400 Systolic blood pressure 111 mm[Hg] Morgan Barajas MANUFACTURING MAINTENANCE MECHANIC-C Work Phone: [facility] 11-11-2024 15:19-0400 Body height 182.88 cm Morgan Barajas MANUFACTURING MAINTENANCE MECHANIC-C Work Phone: [facility] 11-11-2024 15:19-0400 Body mass index (BMI) [Ratio] 45.6 kg/m2 Morgan Barajas MANUFACTURING MAINTENANCE MECHANIC-C Work Phone: [facility] 11-11-2024 15:19-0400 Body weight 152.4 kg Morgan Barajas MANUFACTURING MAINTENANCE MECHANIC-C Work Phone: [facility] 11-11-2024 15:19-0400 Diastolic blood pressure 74 mm[Hg] Morgan Barajas MANUFACTURING MAINTENANCE MECHANIC-C Work Phone: [facility] 11-11-2024 15:19-0400 Heart rate 78 /min Morgan Barajas MANUFACTURING MAINTENANCE MECHANIC-C Work Phone: [facility] 11-11-2024 15:19-0400 Respiratory rate 18 /min Morgan Barajas MANUFACTURING MAINTENANCE MECHANIC-C Work Phone: [facility] 11-11-2024 15:19-0400 SaO2% (BldA) [Mass fraction] 87 % Morgan Barajas MANUFACTURING MAINTENANCE MECHANIC-C Work Phone: [facility] 11-11-2024 15:19-0400 Systolic blood pressure 115 mm[Hg] Morgan Barajas MANUFACTURING MAINTENANCE MECHANIC-C Work Phone: [facility] 11-02-2024 08:38-0400 Body height 185.4 cm Shilo Bernal PA-C Work Phone: [facility] 11-02-2024 08:38-0400 Body mass index (BMI) [Ratio] 42.75 kg/m2 Shilo Bernal PA-C Work Phone: [facility] 11-02-2024 08:38-0400 Body temperature 97.7 [degF] Shilo Bernal PA-C Work Phone: [facility] 11-02-2024 08:38-0400 Body weight 146.97 kg Shilo Ebrnal PA-C Work Phone: [facility] 11-02-2024 08:38-0400 Diastolic blood pressure 62 mm[Hg] Shilo Bernal PA-C Work Phone: [facility] 11-02-2024 08:38-0400 Heart rate 80 /min Shilo Bernal PA-C Work Phone: [facility] 11-02-2024 08:38-0400 Respiratory rate 20 /min Shilo Bernal PA-C Work Phone: [facility] 11-02-2024 08:38-0400 SaO2% (BldA) [Mass fraction] 90 % Shilo Bernal PA-C Work Phone: [facility] 11-02-2024 08:38-0400 Systolic blood pressure 98 mm[Hg] Shilo Bernal PA-C Work Phone: [facility] 10-20-2024 10:50-0400 Body temperature 97.7 [degF] Morgan Barajas MANUFACTURING MAINTENANCE MECHANIC-C Work Phone: [facility] 10-20-2024 10:50-0400 Diastolic blood pressure 39 mm[Hg] Morgan Barajas MANUFACTURING MAINTENANCE MECHANIC-C Work Phone: [facility] 10-20-2024 10:50-0400 Heart rate 79 /min Morgan Barajas MANUFACTURING MAINTENANCE MECHANIC-C Work Phone: [facility] 10-20-2024 10:50-0400 Respiratory rate 16 /min Morgan Barajas MANUFACTURING MAINTENANCE MECHANIC-C Work Phone: [facility] 10-20-2024 10:50-0400 SaO2% (BldA) [Mass fraction] 92 % Morgan Barajas MANUFACTURING MAINTENANCE MECHANIC-C Work Phone: [facility] 10-20-2024 10:50-0400 Systolic blood pressure 100 mm[Hg] Morgan Barajas MANUFACTURING MAINTENANCE MECHANIC-C Work Phone: [facility] 10-20-2024 10:45-0400 Inhaled oxygen flow rate 2 L/min Morgan Barajas MANUFACTURING MAINTENANCE MECHANIC-C Work Phone: [facility] 10-20-2024 07:44-0400 Body height 182.88 cm Morgan Barajas MANUFACTURING MAINTENANCE MECHANIC-C Work Phone: [facility] 10-20-2024 07:44-0400 Body mass index (BMI) [Ratio] 45.1 kg/m2 Morgan Barajas MANUFACTURING MAINTENANCE MECHANIC-C Work Phone: [facility] 10-20-2024 07:44-0400 Body weight 150.9 kg Morgan Barajas MANUFACTURING MAINTENANCE MECHANIC-C Work Phone: [facility] 07-13-2024 14:24-0500 Body mass index (BMI) [Ratio] 45.3 kg/m2 Morgan Barajas MANUFACTURING MAINTENANCE MECHANIC-C Work Phone: [facility] 07-13-2024 14:24-0500 Body weight 151.49 kg Morgan Barajas MANUFACTURING MAINTENANCE MECHANIC-C Work Phone: [facility] 07-13-2024 14:24-0500 Diastolic blood pressure 71 mm[Hg] Morgan Barajas MANUFACTURING MAINTENANCE MECHANIC-C Work Phone: [facility] 07-13-2024 14:24-0500 Heart rate 80 /min Morgan Barajas MANUFACTURING MAINTENANCE MECHANIC-C Work Phone: [facility] 07-13-2024 14:24-0500 Respiratory rate 16 /min Morgan Barajas MANUFACTURING MAINTENANCE MECHANIC-C Work Phone: [facility] 07-13-2024 14:24-0500 SaO2% (BldA) [Mass fraction] 93 % Morgan Barajas MANUFACTURING MAINTENANCE MECHANIC-C Work Phone: [facility] 07-13-2024 14:24-0500 Systolic blood pressure 114 mm[Hg] Morgan Karl PENG-C Work Phone: [facility] 02-26-2022 13:43-0400 Body height 185.[address] Nain Paez Work Phone: [facility] Work Phone: 02-26-2022 13:43-0400 Body weight 145.[address] Nain Paez Work Phone: [facility] Work Phone: 02-26-2022 13:43-0400 Heart rate 88 /min Dr. Nain Paez Work Phone: [facility] Work Phone: 02-26-2022 13:43-0400 SaO2% (BldA) [Mass fraction] 96 % Dr. Nain Paez Work Phone: [facility] Work Phone: 02-04-2022 10:43-0400 Body mass index (BMI) [Ratio] 42.5 kg/m2 Dr. Nain Paez Work Phone: [facility] Work Phone: 02-04-2022 10:43-0400 Body weight 146.[address] Nain Paez Work Phone: [facility] Work Phone: 02-04-2022 10:43-0400 Diastolic blood pressure 60 mm[Hg] Dr. Nain Paez Work Phone: [facility] Work Phone: 02-04-2022 10:43-0400 Heart rate 84 /min Dr. Nain Paez Work Phone: [facility] Work Phone: 02-04-2022 10:43-0400 Respiratory rate 16 /min Dr. Nain Paez Work Phone: [facility] Work Phone: 02-04-2022 10:43-0400 Systolic blood pressure 102 mm[Hg] Dr. Nain Paez Work Phone: [facility] Work Phone: 01-24-2022 15:58-0400 Body height 185.[address] Nain Paez Work Phone: [facility] Work Phone: 01-24-2022 15:58-0400 Body mass index (BMI) [Ratio] 41.5 kg/m2 Dr. Nain Paez Work Phone: [facility] Work Phone: 01-24-2022 15:58-0400 Body weight 142.[address] Nain Paez Work Phone: [facility] Work Phone: 01-10-2022 10:08-0400 Body mass index (BMI) [Ratio] 42.3 kg/m2 Dr. Nain Paez Work Phone: [facility] Work Phone: 01-10-2022 10:08-0400 Body temperature 94.9 [degF] Dr. Nain Paez Work Phone: [facility] Work Phone: 01-10-2022 10:08-0400 Body weight 145.[address] Nain Paez Work Phone: [facility] Work Phone: 01-10-2022 10:08-0400 Diastolic blood pressure 77 mm[Hg] Dr. Nain Paez Work Phone: [facility] Work Phone: 01-10-2022 10:08-0400 Heart rate 86 /min Dr. Nain Paez Work Phone: [facility] Work Phone: 01-10-2022 10:08-0400 Respiratory rate 16 /min Dr. Nain Paez Work Phone: [facility] Work Phone: 01-10-2022 10:08-0400 SaO2% (BldA) [Mass fraction] 95 % Dr. Nain Paez Work Phone: [facility] Work Phone: 01-10-2022 10:08-0400 Systolic blood pressure 118 mm[Hg] Dr. Nain Paez Work Phone: [facility] Work Phone: 10-02-2021 08:32-0400 Body mass index (BMI) [Ratio] 42.6 kg/m2 Dr. Nain Paez Work Phone: [facility] Work Phone: 10-02-2021 08:32-0400 Body weight 146.[address] Nain Paez Work Phone: [facility] Work Phone: 10-02-2021 08:32-0400 Diastolic blood pressure 71 mm[Hg] Dr. Nain Paez Work Phone: [facility] Work Phone: 10-02-2021 08:32-0400 Heart rate 94 /min Dr. Nain Paez Work Phone: [facility] Work Phone: 10-02-2021 08:32-0400 Respiratory rate 20 /min Dr. Nain Paez Work Phone: [facility] Work Phone: 10-02-2021 08:32-0400 SaO2% (BldA) [Mass fraction] 9 % Dr. Nain Paez Work Phone: [facility] Work Phone: 10-02-2021 08:32-0400 Systolic blood pressure 105 mm[Hg] Dr. Nain Paez Work Phone: [facility] Work Phone: 10-02-2021 08:32-0400 Body height 185.[address] Nain Paez Work Phone: [facility] Work Phone: 10-02-2021 08:32-0400 Body mass index (BMI) [Ratio] 42.6 kg/m2 Dr. Nain Paez Work Phone: [facility] Work Phone: 10-02-2021 08:32-0400 Body weight 146.[address] Nain Paez Work Phone: [facility] Work Phone: 10-02-2021 08:32-0400 Diastolic blood pressure 71 mm[Hg] Dr. Nain Paez Work Phone: [facility] Work Phone: 10-02-2021 08:32-0400 Heart rate 94 /min Dr. Nain Paez Work Phone: [facility] Work Phone: 10-02-2021 08:32-0400 Respiratory rate 20 /min Dr. Nain Paez Work Phone: [facility] Work Phone: 10-02-2021 08:32-0400 SaO2% (BldA) [Mass fraction] 9 % Dr. Nain Paez Work Phone: [facility] Work Phone: 10-02-2021 08:32-0400 Systolic blood pressure 105 mm[Hg] Dr. Nain Paez Work Phone: [facility] Work Phone: 09-15-2021 09:00-0400 Body temperature 97.1 [degF] Dr. Nain Paez Work Phone: [facility] Work Phone: 09-15-2021 09:00-0400 Diastolic blood pressure 77 mm[Hg] Dr. Nain Paez Work Phone: [facility] Work Phone: 09-15-2021 09:00-0400 Heart rate 80 /min Dr. Nain Paez Work Phone: [facility] Work Phone: 09-15-2021 09:00-0400 Respiratory rate 18 /min Dr. Nain Paez Work Phone: [facility] Work Phone: 09-15-2021 09:00-0400 SaO2% (BldA) [Mass fraction] 100 % Dr. Nain Paez Work Phone: [facility] Work Phone: 09-15-2021 09:00-0400 Systolic blood pressure 124 mm[Hg] Dr. Nain Paez Work Phone: [facility] Work Phone: 09-13-2021 17:00-0400 Body mass index (BMI) [Ratio] 41 kg/m2 Dr. Nain Paez Work Phone: [facility] Work Phone: 09-13-2021 17:00-0400 Body weight [address] Nain Paez Work Phone: [facility] Work Phone: 09-13-2021 16:59-0400 Body temperature 97 [degF] Dr. Nain Paez Work Phone: [facility] Work Phone: 09-13-2021 16:59-0400 Diastolic blood pressure 86 mm[Hg] Dr. Nain Paez Work Phone: [facility] Work Phone: 09-13-2021 16:59-0400 Heart rate 88 /min Dr. Nain Paez Work Phone: [facility] Work Phone: 09-13-2021 16:59-0400 Respiratory rate 18 /min Dr. Nain Paez Work Phone: [facility] Work Phone: 09-13-2021 16:59-0400 SaO2% (BldA) [Mass fraction] 98 % Dr. Nain Paez Work Phone: [facility] Work Phone: 09-13-2021 16:59-0400 Systolic blood pressure 126 mm[Hg] Dr. Nain Paez Work Phone: [facility] Work Phone: 09-13-2021 11:29-0400 Body height 185.[address] Nain Paez Work Phone: [facility] Work Phone: 09-13-2021 11:29-0400 Body mass index (BMI) [Ratio] 43.8 kg/m2 Dr. Nain Paez Work Phone: [facility] Work Phone: 09-13-2021 11:29-0400 Body weight 150.[address] Nain Paez Work Phone: [facility] Work Phone: 05-22-2021 09:23-0500 Body weight 155.[address] Nain Paez Work Phone: [facility] Work Phone: 05-22-2021 09:23-0500 Diastolic blood pressure 62 mm[Hg] Dr. Nain Paez Work Phone: [facility] Work Phone: 05-22-2021 09:23-0500 Heart rate 76 /min Dr. Nain Paez Work Phone: [facility] Work Phone: 05-22-2021 09:23-0500 Respiratory rate 18 /min Dr. Nain Paez Work Phone: [facility] Work Phone: 05-22-2021 09:23-0500 Systolic blood pressure 104 mm[Hg] Dr. Nain Paez Work Phone: [facility] Work Phone: 02-05-2021 10:33-0400 Body mass index (BMI) [Ratio] 50.4 kg/m2 Dr. Nain Paez Work Phone: [facility] Work Phone: Encounters Encounter Date Encounter Type Care Provider Facility Start: 12-29-2024 Claudia luque MANUFACTURING MAINTENANCE MECHANIC-C -[facility] Start: 12-29-2024 End: 01-04-2025 ambulatory Claudia Urena NP Facility:[facility] Start: 12-29-2024 End: 01-04-2025 Claudia Urena MANUFACTURING MAINTENANCE MECHANIC-C -[facility] Work Phone: Start: 12-28-2024 ambulatory Karen Akbararyan Tavera ty:[facility] Start: 12-28-2024 Dr. Alex Mayen [facility] Work Phone: Start: 12-27-2024 Dr. Alex Mayen [facility] Work Phone: Start: 12-26-2024 [facility]us [facility] Work Phone: Start: 12-25-2024 [facility] Work Phone: Start: 12-24-2024 [facility] Work Phone: Start: 12-23-2024 ambulatory Garry Harris ility:[facility] Start: 12-23-2024 End: 12-28-2024 Evaluation and management of inpatient Dr. Garry Gross DO -[facility] 3 Work Phone: Start: 12-23-2024 End: 12-28-2024 Dr. Alex Mayen DO -[facility] Work Phone: Start: 12-22-2024 Non-patient / Non-visit Claudia campos MANUFACTURING MAINTENANCE MECHANIC-C -[facility] Start: 12-22-2024 Claudia luque MANUFACTURING MAINTENANCE MECHANIC-C -[facility] Start: 12-22-2024 Registered Recurring Claudia ghosh MANUFACTURING MAINTENANCE MECHANIC-C -[facility] Work Phone: Start: 12-22-2024 Claudia luque MANUFACTURING MAINTENANCE MECHANIC-C -[facility] Work Phone: Start: 12-20-2024 ambulatory NONE PHYSICIAN Facility :[facility] Start: 12-18-2024 Non-patient / Non-visit Dr. Cain Gunn MD [facility] Work Phone: Start: 12-18-2024 Dr. Marcellus Garcia and [facility] Work Phone: Start: 12-17-2024 Non-patient / Non-visit Dr. Cain Gunn MD [facility] Work Phone: Start: 12-17-2024 Dr. Marcellus Garcia and [facility] Work Phone: Start: 12-16-2024 ambulatory Jean Brown Facility:[facility] Start: 12-16-2024 Non-patient / Non-visit Dr. Jean rincon MD [facility] Start: 12-16-2024 Dr. Jean Brown MD [facility] Start: 12-16-2024 Non-patient / Non-visit Dr. Cain Gunn MD [facility] Work Phone: Start: 12-16-2024 Dr. Marcellus Garcia and [facility] Work Phone: Start: 12-15-2024 ambulatory Arlette Grigsby Facility :[facility] Start: 12-15-2024 End: 12-18-2024 Evaluation and management of inpatient Dr. Arlette Grigsby MD -[facility] Work Phone: Start: 12-15-2024 End: 12-18-2024 Dr. Marcellus Gunn MD -[facility] Work Phone: Start: 11-30-2024 End: 11-30-2024 Dr. Antoine Hahn MD -Emergency Departmen t Work Phone: Start: 11-30-2024 End: 11-30-2024 Emergency department patient visit Morgan Barajas MANUFACTURING MAINTENANCE MECHANIC-C Work Phone: -Emergency Department Work Phone: Start: 11-19-2024 End: 11-19-2024 Patient encounter procedure Brissa Hawkins MANUFACTURING MAINTENANCE MECHANIC-C -[facility] Work Phone: Start: 11-19-2024 End: 11-19-2024 Brissa Hawkins MANUFACTURING MAINTENANCE MECHANIC-C -[facility] Work Phone: Start: 11-19-2024 End: 11-19-2024 ambulatory Morgan Barajas MANUFACTURING MAINTENANCE MECHANIC-C Work Phone: [facility] Work Phone: Start: 11-11-2024 End: 11-11-2024 Patient encounter procedure Karen Webber MANUFACTURING MAINTENANCE MECHANIC-C -[facility] Work Phone: Start: 11-11-2024 End: 11-11-2024 Karen Webber MANUFACTURING MAINTENANCE MECHANIC-C -[facility] Work Phone: Start: 11-11-2024 End: 11-11-2024 ambulatory Morgan Barajas NP Facility:[facility] Start: 11-02-2024 End: 11-02-2024 Patient encounter procedure Shilo TAYLOR-C Work Phone: Urology Comment on above: Increased frequency of urination (Primary Dx); Screening for genitourinary condition; Dysuria Start: 11-02-2024 End: 11-02-2024 ambulatory SHILO BERNAL Facility:[facility] Start: 10-20-2024 End: 11-03-2024 Telephone encounter Shilo TAYLOR-Brittany Work Phone: Urology Comment on above: Appointment Start: 10-20-2024 ambulatory Mata Pastor Facility :[facility] Start: 10-20-2024 Non-patient / Non-visit Mata Raphael nd DO -[facility] Start: 10-20-2024 Mata Pastor DO -[facility] Start: 10-20-2024 End: 10-20-2024 Admission to same day surgery center Mata Pastor DO -Endoscopy Work Phone: Start: 10-20-2024 End: 10-20-2024 Mata Pastor DO -Endoscopy Work Phone: Start: 10-20-2024 End: 10-20-2024 ambulatory Morgan Barajas MANUFACTURING MAINTENANCE MECHANIC-C Work Phone: [facility] Work Phone: Start: 09-22-2024 End: 09-22-2024 Discharged Recurring Morgan Rosa Barajas MANUFACTURING MAINTENANCE MECHANIC-C -Physical Therapy Work Phone: Start: 09-22-2024 Registered Recurring Morgan Dionicio Barajas MANUFACTURING MAINTENANCE MECHANIC-C -Physical Therapy Work Phone: Start: 09-22-2024 End: 09-22-2024 Morgan Barajas MANUFACTURING MAINTENANCE MECHANIC-C -Physical Therapy Work Phone: Start: 09-22-2024 End: 09-22-2024 ambulatory Morgan Barajas MANUFACTURING MAINTENANCE MECHANIC-C Work Phone: [facility] Work Phone: Start: 09-14-2024 ambulatory Mata Pastor Facility :[facility] Start: 08-13-2024 ambulatory Karen Tavera ty:[facility] Start: 07-13-2024 End: 07-13-2024 Patient encounter procedure Karen Webber MANUFACTURING MAINTENANCE MECHANIC-C -[facility] Work Phone: Start: 07-13-2024 End: 07-13-2024 ambulatory Karen Webber Facility:[facility] Start: 06-15-2024 ambulatory Dilcia Light [facility] Start: 06-10-2024 ambulatory Karen Tavera ty:[facility] Start: 05-10-2024 End: 05-10-2024 ambulatory Brissa Hawkins Facility:[facility] Start: 03-30-2024 End: 03-30-2024 ambulatory Lyle Corinna Facility:[facility] Start: 03-29-2024 ambulatory Jeff Corinna Facility:[facility] Start: 03-29-2024 End: 03-31-2024 Evaluation and management of inpatient Jeff Corinna Facility:[facility] Start: 03-22-2024 ambulatory Brissa Hakwins Facility: [facility] Start: 03-10-2024 End: 03-10-2024 ambulatory Morgan Barajas NP Facility:[facility] Start: 02-11-2024 End: 02-11-2024 ambulatory Brissa Hawkins Facility:[facility] Start: 01-13-2024 ambulatory Priscilalilli Rodriguez Ayse ty:[facility] Start: 11-26-2023 Telephone encounter Bob renee APRN.DETECTIVE [place] Work Phone: [facility] Comment on above: Results; Patient Upd ate Start: 11-20-2023 ambulatory Enedina eckert RT(R) Nuclear Medicine Comment on above: Radiology [place] Start: 11-20-2023 Patient encounter procedure Enedina Beckman RT(R) Nuclear Medicine Start: 11-19-2023 End: 11-19-2023 Evaluation and management of inpatient EDY BHATIA Facility:[id number] Start: 11-18-2023 End: 11-22-2023 Evaluation and management of inpatient GALINA OVALLE Facility:[id number] Start: 02-27-2022 Non-patient / Non-visit Dr. Bette Paez Work Phone: [facility] Start: 02-26-2022 End: 02-26-[address] Nain Paez Work Phone: [facility]-Pulmonary Services/Neurology Start: 02-26-2022 End: 02-26-[address] Nain Paez Work Phone: [facility] Work Phone: Start: 02-26-2022 End: 02-26-[address] Nain Paez Work Phone: [facility]-Physical Therapy Start: 02-21-[address] Nain Paez Work Phone: [facility]-Physical Therapy Start: 02-18-2022 Non-patient / Non-visit Dr. Bette Paez Work Phone: [facility] Start: 02-18-2022 End: 02-18-[address] Nain Paez Work Phone: [facility] Work Phone: Start: 02-18-2022 End: 02-18-[address] Nain Paez Work Phone: [facility]-Pulmonary Services/Neurology Start: 02-04-2022 End: 02-04-[address] Nain Paez Work Phone: [facility] Start: 01-28-[address] Nain Paez Work Phone: [facility]-Physical Therapy Start: 01-24-2022 Non-patient / Non-visit Dr. Bette Paez Work Phone: [facility] Start: 01-23-2022 End: 01-23-[address] Nain Paez Work Phone: [facility]-Sleep Lab Start: 01-10-2022 End: 01-10-[address] [facility] Start: 10-02-2021 End: 10-02-[address] Nain Paez Work Phone: [facility] Start: 09-15-2021 End: 09-15-[address] Nain Paez Work Phone: [facility]-Cardiovascular Services Start: 09-15-2021 Non-patient / Non-visit Dr. Bette Paez Work Phone: [facility] Start: 09-14-2021 End: 09-15-2021 Evaluation and management of inpatient Dr. Nain Paez Work Phone: [facility]-Progressive Care Unit Start: 09-14-2021 Non-patient / Non-visit Dr. Bette Paez Work Phone: [facility] Start: 09-14-2021 Non-patient / Non-visit Dr. Bette Paez Work Phone: [facility] Start: 09-13-2021 Non-patient / Non-visit Dr. Bette Paez Work Phone: [facility] Start: 09-13-2021 Evaluation and management of inpatient Dr. Nain Paez Work Phone: [facility] Start: 09-13-2021 Non-patient / Non-visit Dr. Bette Paez Work Phone: [facility] Start: 08-23-2021 End: 10-26-[address] Nain Paez Work Phone: [facility] Start: 08-23-[address] Nain Paez Work Phone: [facility] Start: 07-16-2021 End: 07-16-[address] Nain Paez Work Phone: [facility] Start: 07-16-[address] Nain krishnamurthy Work Phone: [facility] Start: 05-22-2021 End: 05-22-[address] Nain Paez Work Phone: [facility] Start: 09-11-2018 End: 09-11-2018 Patient encounter procedure BRYANNA GUTHRIE) [facility] Start: 09-04-2018 End: 09-04-2018 [facility] Start: 08-28-2018 End: 08-28-2018 Patient encounter procedure BRYANNA GUTHRIE) [facility] Start: 08-21-2018 End: 08-21-2018 Patient encounter procedure BRYANNA GUTHRIE) [facility] Start: 08-20-2018 Patient encounter procedure BRYANNA GUTHRIE) [facility] Start: 08-20-2018 End: 08-20-2018 [facility] Procedures Date Procedure Procedure Detail Performing Clinician Start: 12-28-2024 Blood count smear mc rscp w/mnl difrntl wbc count Morgan Barajas MANUFACTURING MAINTENANCE MECHANIC-C Work Phone: Start: 12-28-2024 Estimated creatinine clearance Morgan Barajas MANUFACTURING MAINTENANCE MECHANIC-C Work Phone: Start: 12-28-2024 Mean corpuscular hemoglobin concentration determination Morgan Barajas MANUFACTURING MAINTENANCE MECHANIC-C Work Phone: Start: 12-28-2024 Nucleated red blood cell count procedure Morgan Barajas MANUFACTURING MAINTENANCE MECHANIC-C Work Phone: Start: 12-28-2024 Platelet mean volume determination Morgan Barajas MANUFACTURING MAINTENANCE MECHANIC-C Work Phone: Start: 12-25-2024 Blood disorder - ini tial assessment Morgan Barajas MANUFACTURING MAINTENANCE MECHANIC-C Work Phone: Start: 12-24-2024 Urine culture Morgan Woods rogers MANUFACTURING MAINTENANCE MECHANIC-C Work Phone: Start: 12-24-2024 Carbon dioxide measurement, partial pressure Morgan Barajas MANUFACTURING MAINTENANCE MECHANIC-C Work Phone: Start: 12-24-2024 Gases blood o2 satur ation only direct davidson Morgan Barajas MANUFACTURING MAINTENANCE MECHANIC-C Work Phone: Start: 12-24-2024 Measurement of parti al pressure of oxygen in blood Morgan Barajas MANUFACTURING MAINTENANCE MECHANIC-C Work Phone: Start: 12-24-2024 Oxygen measurement Yolis Karl MANUFACTURING MAINTENANCE MECHANIC-C Work Phone: Start: 12-24-2024 Urine microscopy: re d cells Morgan Barajas MANUFACTURING MAINTENANCE MECHANIC-C Work Phone: Start: 12-24-2024 Urnls dip stick/tabl et reagent auto microscopy Morgan Barajas MANUFACTURING MAINTENANCE MECHANIC-C Work Phone: Start: 12-24-2024 Plain chest X-ray Michelle Barajas MANUFACTURING MAINTENANCE MECHANIC-C Work Phone: Start: 12-23-2024 Assay of lactate Morgan Barajas MANUFACTURING MAINTENANCE MECHANIC-C Work Phone: Start: 12-23-2024 Urnls dip stick/tabl et reagent auto microscopy Morgan Barajas MANUFACTURING MAINTENANCE MECHANIC-C Work Phone: Start: 12-23-2024 X-ray of chest, PA a nd lateral views Morgan Barajas MANUFACTURING MAINTENANCE MECHANIC-C Work Phone: Start: 12-23-2024 Estimated creatinine clearance Morgan Barajas MANUFACTURING MAINTENANCE MECHANIC-C Work Phone: Start: 12-16-2024 Bacterial nucleic ac id assay Morgan Barajas MANUFACTURING MAINTENANCE MECHANIC-C Work Phone: Start: 12-16-2024 Blood count smear mc rscp w/mnl difrntl wbc count Morgan Barajas MANUFACTURING MAINTENANCE MECHANIC-C Work Phone: Start: 12-16-2024 Estimated creatinine clearance Morgan Barajas MANUFACTURING MAINTENANCE MECHANIC-C Work Phone: Start: 12-16-2024 Mean corpuscular hemoglobin concentration determination Morgan Barajas MANUFACTURING MAINTENANCE MECHANIC-C Work Phone: Start: 12-16-2024 Nucleated red blood cell count procedure Morgan Barajas MANUFACTURING MAINTENANCE MECHANIC-C Work Phone: Start: 12-16-2024 Platelet mean volume determination Morgan Barajas MANUFACTURING MAINTENANCE MECHANIC-C Work Phone: Start: 12-16-2024 Total cholesterol:HD L ratio measurement Morgan Barajas MANUFACTURING MAINTENANCE MECHANIC-C Work Phone: Start: 12-16-2024 Total iron binding capacity measurement Morgan Barajas MANUFACTURING MAINTENANCE MECHANIC-C Work Phone: Start: 12-15-2024 X-ray of chest, PA a nd lateral views Morgan Barajas MANUFACTURING MAINTENANCE MECHANIC-C Work Phone: Start: 12-15-2024 Estimated creatinine clearance Morgan Barajas MANUFACTURING MAINTENANCE MECHANIC-C Work Phone: Start: 12-15-2024 End: 12-15-2024 Bacterial nucleic acid assay Morgan Barajas MANUFACTURING MAINTENANCE MECHANIC-C Work Phone: Start: 12-15-2024 Blood culture Morgan rogers MANUFACTURING MAINTENANCE MECHANIC-C Work Phone: Start: 12-15-2024 Gram stain microscopy T josy Barajas MANUFACTURING MAINTENANCE MECHANIC-C Work Phone: Start: 12-15-2024 End: 12-15-2024 Microbial culture, routine Morgan Barajas MANUFACTURING MAINTENANCE MECHANIC-C Work Phone: Start: 11-30-2024 Plain chest X-ray Michelle Barajas MANUFACTURING MAINTENANCE MECHANIC-C Work Phone: Start: 11-30-2024 Blood count smear rscp w/mnl difrntl wbc count Morgan Barajas MANUFACTURING MAINTENANCE MECHANIC-C Work Phone: Start: 11-30-2024 D-dimer assay, quantitative Morgan Barajas MANUFACTURING MAINTENANCE MECHANIC-C Work Phone: Comment on above: NORMAL D-Dimer level (<0.50) indicates no DVT or PE. Start: 11-30-2024 Estimated creatinine clearance Morgan Barajas MANUFACTURING MAINTENANCE MECHANIC-C Work Phone: Start: 11-30-2024 Mean corpuscular hemoglobin concentration determination Morgan Barajas MANUFACTURING MAINTENANCE MECHANIC-C Work Phone: Start: 11-30-2024 Nucleated red blood cell count procedure Morgan Barajas MANUFACTURING MAINTENANCE MECHANIC-C Work Phone: Start: 11-30-2024 Platelet mean volume determination Morgan Baarjas MANUFACTURING MAINTENANCE MECHANIC-C Work Phone: Start: 10-20-2024 Colonoscopy Morgan serrano MANUFACTURING MAINTENANCE MECHANIC-C Work Phone: Start: 01-16-2024 History of placement of stent for coronary artery disease H/O heart artery stent Shilo Bernal PA-C Work Phone: Start: 11-20-2023 Lipid 1996 panel - S rosalio or Plasma Shilo TAYLOR-C Work Phone: Start: 09-13-2021 Plain chest X-ray Dr. Daniel Paez Work Phone: Start: 01-18-2021 History of placement of stent for coronary artery disease History of coronary artery stent placement Dr. Nain Paez Work Phone: Plan of Treatment Date Care Activity Detail Author Start: 11-19-2028 Lipid panel Lipid Screening [facility] Start: 11-21-2026 Diabetes Screening Diabetes Screening [facility] Start: 11-02-2025 BP Controlled (<130/80) BP Controlled (<130/80) [facility] Start: 02-21-2025 Influenza vaccination Influenza Vaccine (Season Ended) [facility] Start: 12-28-2024 Patient discharge [facility] Start: 12-28-2024 Wound care [facility] Start: 12-27-2024 Referral to service [facility] Start: 12-27-2024 Removal of urinary catheter [facility] Start: 12-26-2024 [facility] Start: 12-26-2024 Consultation for treatment [facility] Start: 12-25-2024 End: 12-25-2024 [facility] Start: 12-25-2024 Care regimes management [facility] Start: 12-25-2024 Notification of physician [facility] Start: 12-24-2024 End: 12-25-2024 [facility] Start: 12-24-2024 Consultation [facility] Start: 12-24-2024 Measuring intake and output [facility] Start: 12-24-2024 Referral to occupational therapist [facility] Start: 12-24-2024 Referral to service [facility] Start: 12-24-2024 Vital signs measurements [facility] Start: 12-24-2024 Application of elastic bandage [facility] Start: 12-24-2024 Continuous pulse oximetry [facility] Start: 12-24-2024 Dual pressure spontaneous ventilation support [facility] Start: 12-24-2024 Inhalation therapy procedure [facility] Start: 12-23-2024 Following clinical pathway protocol [facility] Start: 12-23-2024 Ambulation without limitation [facility] Start: 12-23-2024 Assessment of risk of venous thromboembolism [facility] Start: 12-23-2024 Care regimes management [facility] Start: 12-23-2024 Insertion of catheter into peripheral vein [facility] Start: 12-23-2024 Measuring intake and output [facility] Start: 12-23-2024 Notification of physician [facility] Start: 12-23-2024 Oxygen therapy [facility] Start: 12-23-2024 Providing care according to standard [facility] Start: 12-23-2024 Referral to service [facility] Start: 12-23-2024 End: 12-23-2024 [facility] Start: 12-23-2024 Hospital admission, emergency, from emergency room, medical nature [facility] Start: 12-23-2024 Verification routine [facility] Start: 12-23-2024 Admission procedure [facility] Start: 12-23-2024 [facility] Start: 12-23-2024 Patient referral to dietitian [facility] Start: 12-18-2024 Patient discharge [facility] Start: 12-17-2024 Application of intermittent pneumatic compression device [facility] Start: 12-17-2024 Referral to service [facility] Start: 12-17-2024 Inhalation therapy procedure [facility] Start: 12-16-2024 End: 12-17-2024 [facility] Start: 12-15-2024 Bacterial nucleic acid assay [facility] Start: 12-15-2024 Following clinical pathway protocol [facility] Start: 12-15-2024 Application of elastic bandage [facility] Start: 12-15-2024 Assessment of risk of venous thromboembolism [facility] Start: 12-15-2024 Care regimes management [facility] Start: 12-15-2024 Consultation for treatment [facility] Start: 12-15-2024 Elevation of affected extremity [facility] Start: 12-15-2024 Fall prevention [facility] Start: 12-15-2024 Incentive spirometry [facility] Start: 12-15-2024 Insertion of catheter into peripheral vein [facility] Start: 12-15-2024 Introduction of urinary catheter [facility] Start: 12-15-2024 Measuring intake and output [facility] Start: 12-15-2024 Notification of physician [facility] Start: 12-15-2024 Oxygen therapy [facility] Start: 12-15-2024 Patient education [facility] Start: 12-15-2024 Patient referral to dietitian [facility] Start: 12-15-2024 Providing care according to standard [facility] Start: 12-15-2024 Provision of activity privileges [facility] Start: 12-15-2024 Referral to occupational therapist [facility] Start: 12-15-2024 Referral to service [facility] Start: 12-15-2024 Wound care [facility] Start: 12-15-2024 Admission procedure [facility] Start: 12-15-2024 Hospital admission, emergency, from emergency room, medical nature [facility] Start: 12-15-2024 End: 12-15-2024 [facility] Start: 12-15-2024 Bacteria identified in Blood by Culture Blood Culture [facility] Start: 12-15-2024 Blood culture Blood Culture [facility] Start: 12-15-2024 Microbial culture, routine Wound Culture [facility] Start: 12-15-2024 Patient referral to dietitian [facility] Start: 11-30-2024 [facility] Start: 11-30-2024 [facility] Start: 11-19-2024 Hepatitis B surface antibody level LDL Cholesterol [facility] Start: 11-19-2024 Evaluation of diagnostic study results [facility] Start: 10-20-2024 Colonoscopy w/biopsy single/multiple [facility] Start: 10-20-2024 Colsc flx w/rmvl of tumor polyp lesion snare tq [facility] Start: 10-20-2024 Egd transoral biopsy single/multiple [facility] Start: 10-20-2024 Patient discharge [facility] Start: 02-22-2024 Covid-19 Vaccine ( season) Covid-19 Vaccine ( season) [facility] Start: 02-22-2024 Influenza vaccination Influenza Vaccine (Season Ended) [facility] Start: 02-20-2024 Hemoglobin A1c measurement HbA1C [facility] Start: 01-21-2024 End: 01-21-2024 Patient encounter procedure 01/21/2024 2:20 PM EDT Office Visit [facility] [address] [place] [address] Bob Du, SERVICES MANAGER.DETECTIVE [place] [address] [facility] [address] [place] [address] 8 week follow up after [facility] d/c for [place] [place] [facility] Comment on above: 8 week follow up after [facility] d/c for [facility] [place] Start: 11-21-2023 End: 11-21-2023 Evaluation and management of inpatient 11/21/2023 10:00 AM EDT - 11/21/2023 11:00 AM EDT Surgery [facility] [employer] [employer] [address] [place] [address] Chidi Boyer MD [address] [place] [address] LEFT HEART CATH INTRAPROCEDURAL INJECT W/ LEFT VENTRICULOGRAPHY IMAGE SUPERVISION/INTERPRETATIO N [facility] [employer] Comment on above: LEFT HEART CATH INTRAPROCEDURAL INJECT W / LEFT VENTRICULOGRAPHY IMAGE SUPERVISION/INTERPRETATION Start: 11-21-2023 End: 11-21-2023 L hrt cath w/njx l ventriculography img s&i LEFT HEART CATH INTRAPROCEDURAL INJECT W/ LEFT VENTRICULOGRAPHY IMAGE SUPERVISION/INTERPRETATIO N Abnormal stress test 11/21/2023 10:00 AM EDT [facility] [employer] Start: 06-23-2023 Behavioral Health Screening Behavioral Health Screening [facility] Start: 02-21-2023 Covid-19 Vaccine ( season) Covid-19 Vaccine () [facility] Start: 10-16-2022 Urine microalbumin profile DTaP,Tdap,Td Vaccine (2 - Td or Tdap) [facility] Start: 04-22-2021 Hemoglobin A1c measurement HbA1C [facility] Start: 09-11-2020 Prostate specific antigen measurement Prostate Cancer Screening Discussion [facility] Start: 04-12-2020 Annual PCP Team Chronic Disease Visit Annual PCP Team Chronic Disease Visit [facility] Start: 04-12-2020 Pneumococcal vaccination Pneumococcal Vaccine (2 of 2 - PCV) [facility] Start: 04-12-2020 Pneumococcal Vaccine: 50+ (2 of 2 - PCV) Pneumococcal Vaccine: 50+ (2 of 2 - PCV) [facility] Start: 07-02-2019 Hepatitis B screening Urine Albumin:Creatinine Ratio [facility] Start: 10-06-2016 Glaucoma screening Dilated Retinal Exam [facility] Start: 06-13-2016 Diabetic foot examination Diabetic Foot Exam [facility] Start: 2015 Shingrix Vaccine (1 of 2) Shingrix Vaccine (1 of 2) [facility] Start: 2010 Screening for malignant neoplasm of colon [facility] Start: 1984 Hepatitis B Vaccine (1 of 3 - 19+ 3-dose series) Hepatitis B Vaccine (1 of 3 - 19+ 3-dose series) [facility] Start: 1983 Annual PCP Team Chronic Disease Visit Annual PCP Team Chronic Disease Visit [facility] Start: 1983 Anxiety Screening Anxiety Screening [facility] Start: 1983 BP Controlled (<130/80) BP Controlled (<130/80) [facility] Start: 1983 Hepatitis C screening Hepatitis C Screening [facility] Start: 1983 HIV screening HIV Screening [facility] CBC W Auto Different ial panel - Blood [facility] CBC W Auto Different ial panel - Blood [facility] Comprehensive metabo lic 2000 panel - Serum or Plasma [facility] CT Abdomen [facility] Exercise tolerance test [facility] Work Phone: Gamma glutamyl transferase measurement [facility] Hepatic function panel [facility] Measurement of respiratory function [facility] Work Phone: Patient Education [facility] Work Phone: Patient referral [facility] Work Phone: POST VOID RESIDUAL POST VOID RES IDUAL Procedures Routine Screening for genitourinary condition Increased frequency of urination Dysuria Ordered: 11/02/2024 [facility] Work Phone: Comment on above: Ordered: 11/02/2024 Troponin T.cardiac [Mass/volume] in Serum or Plasma by High sensitivity method [facility] Immunizations Immunization Date Immunization Notes Care Provider Fa ciligeovanni 04-03-2021 Covid (Pfizer) Morgan Barajas MANUFACTURING MAINTENANCE MECHANIC-C Work Phone: [facility] 07-05-2020 Covid (Pfizer) Morgan Barajas MANUFACTURING MAINTENANCE MECHANIC-C Work Phone: [facility] 06-14-2020 Covid (Pfizer) Morgan Barajas MANUFACTURING MAINTENANCE MECHANIC-C Work Phone: [facility] 04-13-[address] Nain Paez Work Phone: [facility] 04-13-2019 influenza, seasonal, injectable, preservative free Eneidna McFeely RT(R) [facility] 04-13-2019 influenza virus vacc ine, unspecified formulation Enedina McFeely RT(R) [facility] 04-12-2019 influenza, injectabl e, quadrivalent, contains preservative Enedina McFeely RT(R) [facility] 04-12-2019 influenza, injectabl e, quadrivalent, preservative free Morgan Barajas MANUFACTURING MAINTENANCE MECHANIC-C Work Phone: [facility] 04-12-2019 pneumococcal polysaccharide vaccine, 23 valent Enedina McFeely RT(R) [facility] 04-14-2017 influenza, injectabl e, quadrivalent, contains preservative Enedina McFeely RT(R) [facility] 04-14-2017 influenza, injectabl e, quadrivalent, preservative free Morgan Barajas MANUFACTURING MAINTENANCE MECHANIC-C Work Phone: [facility] 10-16-2012 tetanus toxoid, redu susan diphtheria toxoid, and acellular pertussis vaccine, adsorbed Enedina McFeely RT(R) [facility] Payers Date Payer Category Payer Medicare (Managed Care) MARLEY FLETCHER [id number] 2024 Private Health Insurance [id number] 2023 Medicare [id number] 2023 Self-pay [id number] 2023 Unknown [id number] 2022 Medicaid [id number]. [id number] 2022 Medicare [id number]. [id number]. [id number] 2022 Medicaid [id number] 1965 Unknown [id number] 2.16840.1.349740.3.579.2. 627 Medicaid 0 [id number] Medicare [id number] Unknown [id number] Unknown SELF PAY INSURANCE [id number] Unknown [id number] 2.840.1.585790.3.579.2. 462 Unknown [id number] 2.840.1.279114.3.579.2. 462 Unknown [id number] 2.840.1.206204.3.579.2. 462 Unknown [id number] 2.16840.1.609688.3.579.2. 462 Unknown [id number] 2.16840.1.401882.3.579.2. 462 Unknown [id number] 2.16840.1.848386.3.579.2. 462 Unknown [id number] 2.16840.1.798921.3.579.2. 462 Unknown [id number] 2.840.1.652141.3.579.2. 462 Unknown [id number] 2.16.840.1.935608.3.579.2. 462 Unknown [id number] 2.16.840.1.225887.3.579.2. 462 Unknown [id number] 2.16.840.1.829977.3.579.2. 462 Unknown [id number] 2.16.840.1.631433.3.579.2. 462 Unknown [id number] 2.16840.1.944655.3.579.2. 462 Unknown [id number] 2.840.1.831372.3.579.2. 462 Unknown [id number] 2.840.1.466098.3.579.2. 462 Unknown [id number] 2.840.1.472293.3.579.2. 462 Unknown [id number] 2.840.1.894625.3.579.2. 462 Unknown [id number] 2.840.1.459331.3.579.2. 462 Unknown [id number] 2.840.1.848959.3.579.2. 462 Unknown [id number] 2.840.1.945045.3.579.2. 462 Unknown [id number] 2.840.1.085495.3.579.2. 462 Unknown [id number] 2.840.1.153630.3.579.2. 462 Unknown [id number] 2.840.1.101585.3.579.2. 462 Unknown [id number] 2.840.1.350825.3.579.2. 462 Unknown [id number] 2.16840.1.724294.3.579.2. 462 Unknown [id number] 2.16840.1.706855.3.579.2. 462 Unknown [id number] 2.840.1.058029.3.579.2. 462 Unknown [id number] 2.16.840.1.449331.3.579.2. 462 Unknown [id number] 2.16.840.1.040074.3.579.2. 462 Unknown [id number] 2.16.840.1.123866.3.579.2. 462 Unknown [id number] 2.16.840.1.415404.3.579.2. 462 Unknown [id number] 2.16.840.1.374746.3.579.2. 462 Unknown [id number] 2.16.840.1.189568.3.579.2. 462 Unknown [id number] 2.16840.1.890897.3.579.2. 462 Unknown [id number] 2.16840.1.127150.3.579.2. 462 Unknown [id number] 2.840.1.625650.3.579.2. 462 Social History Date Type Detail Facility Start: 09-13-2021 End: 01-10-2022 Tobacco smoking status [facility] Unknown if ever smoked [facility] Work Phone: Start: 04-20-2019 Rare [facility] Start: 12-25-2018 None [facility] Start: 12-25-2018 Alone [facility] Start: 04-20-2019 Cigarettes;Cigars;Chew;P ipe [facility] Start: 1965 Sex Assigned At Male [facility] Start: 09-07-2014 End: 12-23-2024 Tobacco smoking status NHIS Ex-smoker [facility] Start: 09-07-2000 End: 09-07-2010 History of tobacco use Current smoker [facility] Start: 09-07-2000 End: 09-07-2010 History of tobacco use Cigarette Smoker [facility] History of tobacco use Cigar Smoker [facility] Start: 09-07-2014 End: 11-02-2024 Cigarettes smoked current (pack per day) - Reported 1 [facility] Start: 09-07-2014 End: 11-02-2024 Tobacco use and exposure Smokeless tobacco non-user [facility] Start: 11-19-2023 End: 10-20-2024 Alcohol intake Current non-drinker of alcohol (finding) [facility] Start: 02-05-2019 End: 11-02-2024 Social connection and isolation [facility] Frequency of Communication with Friends and Family Not on file [facility] Are you now , , , , never or living with a partner? [facility] Start: 10-16-2012 End: 11-02-2024 Tobacco Comment occasionally [facility] Start: 10-16-2012 Alcohol Comment quit, hx [facility] Start: 1965 Sex Assigned At Not on file [facility] Start: 10-20-2024 Sex Male (finding) [facility] Start: 11-02-2024 Alcoholic beverage intake [facility] Procedure Code Equipment Code Equipment Origin al Text Equipment Identifier Dates Test blood sugar (s) 1 times daily. Dx: Type 2 diabetes E11.9. [id number] Start: 04-18-2015 Test blood sugar (s) 2 times daily. Dx: DM 250.0 Insulin: No [id number] Start: 09-01-2014 Needle (Disp) 32 Gauge 32 gauge x 5/16 needle Start: 12-18-2024 Needle (Disp) 32 Gauge 32 gauge x 5/16 needle Start: 12-18-2024 Goals Date Patient Goal Desired Activity /State Personal health goal Functional Status Date Assessment Result Facility 12-28-2024 Functional status Ambulates;Chair [facility] Work Phone: 12-28-2024 Functional status Ambulates;Chair [facility] Work Phone: 12-28-2024 Functional status None [facility] Work Phone: 12-18-2024 Functional status Ambulates [facility] Work Phone: 11-22-2023 Are you deaf, or do you have serious difficulty hearing No 11/22/2023 4:41 PM Joselin Iqbal RN No [facility] 11-22-2023 Are you blind, or do you have serious difficulty seeing, even when wearing glasses No 11/22/2023 4:41 PM Joselin Iqbal, RN No [facility] 11-22-2023 Do you have serious difficulty walking or climbing stairs No 11/22/2023 4:41 PM Joselin Iqbal, RN No [facility] 11-22-2023 Do you have difficul ty dressing or bathing No 11/22/2023 4:41 PM Joselin Iqbal, RN No [facility] 11-22-2023 Because of a physica l, mental, or emotional condition, do you have difficulty doing errands alone such as visiting a physician's office or shopping No 11/22/2023 4:41 PM Joselin Iqbal, RN No [facility] 09-15-2021 Functional status Chair [facility] Work Phone: Mental Status Date Assessment Result Facility 12-28-2024 Cognitive function Voice/Name [facility] Work Phone: 12-23-2024 Cognitive function Level Of Cons ciousness Awake;Alert;Appropriate;Fol lows Commands [facility] Work Phone: 12-18-2024 Cognitive function Voice/Name [facility] Work Phone: 12-15-2024 Cognitive function Level Of Cons ciousness Awake;Alert;Appropriate;Fol lows Commands [facility] Work Phone: 11-30-2024 Cognitive function Awake;Alert;A ppropriate;Fol lows Commands [facility] Work Phone: 10-20-2024 Cognitive function Voice/Name [facility] Work Phone: 11-22-2023 Because of a physica l, mental, or emotional condition, do you have serious difficulty concentrating, remembering, or making decisions No 11/22/2023 4:41 PM Joselin Iqbal RN No [facility] 09-15-2021 Cognitive function [facility]/Name [facility] Work Phone: Clinical Notes 01-18-2021 to 12-29-2024 Note Date & Type Note Facility 12-29-2024 Progress note Note Date/Time December 29, 2024 1:07p m [facility] [address] [place] [address] Progress Note - Wound Care 12/29/24 1305 MR#: [id number] Acct: [id number] Name: DERRELL HOYT Rep #:[id number] : 1965 59 From: Claudia Urena NP MANUFACTURING MAINTENANCE MECHANIC-C PCP: CHRISTIANO TamezC Status: REG RCR Location: History of Present Illness Date of Service: 12/29/24 Chief Complaint: Chronic swelling and edema of the lower extremities, associatedwith stasis dermatitis cellulitis and sepsis History of Wound: This is a 59-year-old male that has history ofmany things multiple he is diabetic he is got COPD hypertension he had a thyroidectomy done because of 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 recently and he Shahid lost it and went off the deep and then was became homeless. He is now living in the [facility] [address] and he was trying to get his life back but I noticed on labs that his complete blood count that his hemoglobin is down to 7.9and he is iron deficient anemic kidney functions were good diabetes seem to be well-controlled but his alk phos was extremely high also. He is here for follow-up on his legs they are healing well but he does not take very good care of himself and there is just dried old skin all over his lower extremities. Progress of Wound: Patient's legs are healed. Patient will be discharged from the wound center andhe can follow-up as needed Subjective Subjective And was pleased with the results Objective Data Objective Data No sign of open areas still has the dry skin that he can work on at home he needs to bathe and use soap and water and scrub the skin off his legs and use the amLactin cream on a regular basis. Vital Signs: Vital Signs Temp Pulse Resp BP O2 Del Method O2 Flow Rate 97.5 F L 89 18 105/53 L Room Air 2 12/29/24 09:49 12/29/24 09:49 12/29/24 09:49 12/29/24 09:49 12/22/24 10:20 12/29/24 09:49 Oxygen Flow Rate (L/min) 2 Oxygen Delivery Method Room Air Weight: 333 lb Body Mass Index (BMI) 43.9 Debridement Note Debridement Note No debridement was completed: No debridement was completed today Post-Debridement Measurements and Additional Note: Post-Debridement Measurements/Treatment WC - Nurse 1 - General Ulcer Assessment Start: 12/22/24 10:18 Freq: Status: Active Protocol: NANCIE.LOWEXT Activity Type Activity Date Activity User E-sign Co-sign Detail Recorded Client Recorded Date Recorded By Document 12/22/24 10:20 MT [id number] 12/22/24 10:38 MT Document 12/29/24 09:49 DL [id number] 12/29/24 09:59 DL 12/22/24 12/29/24 10:20 09:49 WC - Today's Visit Information Type of service Initial Visit Follow-up Visit (Physician/DETECTIVE [place] ) Arrival Mode Ambulatory Ambulatory Transfer Assistance None Accompanied by self Patient Identification Verified (Name & Yes Yes ) Patient Requires Transmission-Based No Precautions Safety Precautions Fall Prevention Height and Weight Height 6 ft 1 in Weight 333 lb Weight in Pounds 333.0 lbs Weight Measurement Method Stated by Patient Body Mass Index (BMI) 43.9 43.9 BMI Classification Obese Obese Vital Signs Temperature (97.8 F-99.1 F) 97.1 F L 97.5 F L Temperature Source Temporal Temporal Pulse Rate (60-100) 80 89 Pulse Location Monitor Monitor Respiratory Rate (12-18) 18 18 Respiratory rate source Observation Observation Oxygen Delivery Method Room Air O2 L/MIN (L/min) 2 Blood Pressure (90/60-120/80) 104/55 L 105/53 L Blood Pressure Mean (mm Hg) 71 70 Source Monitor Monitor Position Sitting Blood Pressure Location Right Arm History Since Last Visit- (Skip if this is Patient's initial visit) Have you changed medications since your No last visit? Any new allergies or adverse reactions No Had a fall/change in ADL's that may No increase risk of falls Signs or symptoms of abuse and/or No neglect since last visit Have you been in the hospital since your No last visit? Has dressing in place as prescribed Yes Yes Has compression in place as prescribed Yes Yes Has offloadiing in place as prescribed Yes N/A Experienced any changes in pain level or Yes No management Left Footwear Regular Shoe Right Footwear Regular Shoe Pain Scale: 0-10 Numeric Is Patient Pain Free? Yes Yes - Nurse 1 - General Ulcer Measurement Start: 12/22/24 10:18 Freq: Status: Active Protocol: Activity Type Activity Date Activity User E-sign Co-sign Detail Recorded Client Recorded Date Recorded By Document 12/22/24 10:20 MT [id number] 12/22/24 10:38 MT Document 12/29/24 09:49 DL [id number] 12/29/24 09:59 DL 12/22/24 12/29/24 10:20 09:49 Wound Center Nurse 1 #4 Left Lower Lateral Leg -Current Size (cm) - Length 10.1 0.1 -Current Size (cm) - Width 8.5 0.1 -Current Size (cm) - Depth 0.1 0.1 -Total Square Cm 85.85 0.01 -Date of Last Picture (Recall this 12/22/24 field) -Photo Taken Yes Yes -Epithelialization Large 67-100% -Tunneling No -Undermining/Tunneling No -Circular Undermining No -Exudate Amt None Present None Present -Wound Margin Flat & Intact Indistinct, Non -Visible -Granulation Amt Large (67-100%) Large (67-100%) -Granulation Quality Pale,Weinert Weinert -Necrosis Amt Small (1-33%) None Present (0 %) -Necrotic Tissue Type Adherent Slough -Structure Exposed N/A -Texture (Capri-wound Skin Appearance) Assessed Scarring -Moisture (Capri-wound Skin Appearance) Assessed Dry/Scaly -Color (Capri-wound Skin Appearance) Assessed Hemosiderin Staining -Temperature (Capri-wound Skin No Abnormality No Abnormality Appearance) (Pt Warm) (Pt Warm) -Tenderness on Palpation (Capri-wound No No Skin Appearance) -Ulcer Cleansing Soap and Water Soap and Water -Foul Odor after Cleansing No No -Anesthetic Used 5% Lidocaine Gel -Wound Comment(s) Pt admitted to [facility] 12/23/24 and D/C 12/28/24 for SOB. Pt now has portable O2 on at 2L. Right Calf (cm) 44.5 Right Ankle (cm) 31.5 Right Foot (cm) 43.3 Left Calf (cm) 26.8 WC - Nurse 2 - General Ulcer CM Notes Start: 12/22/24 10:18 Freq: Status: Active Protocol: Activity Type Activity Date Activity User E-sign Co-sign Detail Recorded Client Recorded Date Recorded By Document 12/22/24 10:46 [facility] [id number] 12/22/24 10:58 [facility] Document 12/29/24 10:21 [facility] [id number] 12/29/24 10:24 [facility] 12/22/24 12/29/24 10:46 10:21 Wound Center Nurse 2 #4 Left Lower Lateral Leg -Time 10:50 10:21 -Correct Patient Yes -Correct Side, Site, Position Yes -Correct Procedure Yes -Procedure Performed Yes No -Type of Procedure Debridement -Clinical Debridement Subcutaneous -Tissue Removed Subcutaneous -Post Debridement (cm) - Length 11.5 0 -Post Debridement (cm) - Width 7 0 -Post Debridement (cm) - Depth 0.1 0 -Total Square (Post) (cm) 80.5 0 -Area of Debridement (cm) - Length 11.5 0 -Area of Debridement (cm) - Width 7 0 -Total Square (Area) (cm) 80.5 0 -Tunneling No -Undermining/Tunneling No -Circular Undermining No -Wound/Ulcer Outcome Not Healed Healed- Epithelialized -Ulcer Cleansing Rinsed/ Irrigated with Saline -Foul Odor after Cleansing No -Bioengineered Tissue No -Bleeding Controlled with Pressure NA -Treatment Response Procedure Tolerated Well -Debridement - Subq, 1st 20sq cm Yes -Debridement, SubQ, ea addt'l 20sq cm 3 or part thereof Pain Scale: 0-10 Numeric Is Patient Pain Free? Yes Yes WC - Nurse 3 - General Ulcer D/C NN Start: 12/22/24 10:18 Freq: Status: Active Protocol: Activity Type Activity Date Activity User E-sign Co-sign Detail Recorded Client Recorded Date Recorded By Document 12/22/24 10:50 MT [id number] 12/22/24 10:52 MT Document 12/22/24 11:16 DL [id number] 12/22/24 11:18 DL Document 12/29/24 10:45 DL [id number] 12/29/24 10:46 DL 12/22/24 12/22/24 12/29/24 10:50 11:16 10:45 Wound Care Center Nurse 3 #4 Left Lower Lateral Leg -Ulcer Cleansing Soap and Water Soap and Water -Foul Odor after Cleansing No -Primary Dressing Applied NonAdherent Contact Layer -Other Dressing xerofrom -Primary Dressing Covered/Secured with Dry Gauze & Roll Gauze, Other -Other Covering ABD LLE -Tubular Bandage Single Layer Double Layer -Size of Tubigrip Used Size F Size E -Size E ($) 2 -Size F ($) 1 Treatment Response Procedure Procedure Tolerated Well Tolerated Well Pain Scale: 0-10 Numeric Is Patient Pain Free? Yes Yes Yes WC - Visit Discharge Discharge Condition Stable Stable Ambulatory Status Ambulatory Transportation Private Auto Private Auto Notes: Healed/ Discharged. Facility Type Account Services Manager Care Account Services Manager Care Facility Facility Orders Sent Yes Yes Assessment/Plan Assessment/Plan (1) Wound cellulitis: CODE(S): L03.90 - Cellulitis, unspecified (2) Iron deficiency anemia: CODE(S): D50.9 - Iron deficiency anemia, unspecified QUALIFIERS: Iron deficiency anemia type: inadequate dietary iron intake Qualified Code(s): D50.8 - Other iron deficiency anemias (3) Elevated alkaline phosphatase level: CODE(S): R74.8 - Abnormal levels of other serum enzymes (4) Non-pressure ulcer of left lower extremity: CODE(S): L97.929 - Non-pressure chronic ulcer of unspecified part of left lower leg with unspecified severity QUALIFIERS: Non-pressure ulcer stage: with fat layer exposed Qualified Code(s): L97.922 - Non-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 12/29/24 1307 <Electronically signed by Claudia Urena NP MANUFACTURING MAINTENANCE MECHANIC-C> Cosigner Signature (if applicable): CC: ~ Signed [facility] Work Phone: [phone]) 623-394907-08-2025 Discharge summary Author Alex Mayen [facility] Note Date/Time December 28, 2024 12:27 pm [facility] Medical Records Department [address] [place] [address] Discharge Summary 12/28/24 1208 MR#: [id number] Acct: [id number] Name: DERRELL HOYT Robert Rep #:[id number] : 1965 59 From: Alex Mayen DO PCP: UNRULY Tamez Status: [facility]M IN [facility] Prov[facility] Date of Admission: 12/23/24 Primary Care Physician: UNRULY Tamez Consultations 12/24/24 11:24 Consult: Clinical Study Manager / Pulmonary Medicine Routine Consulting Provider: Intensivists/Pulmonary Med Reason for Consult: Acute on chronic combined respiratory failure, CO2 narcosis. For kallie am EMERGENT Consult: No MD Notified: Yes Date Notified: 12/24/24 Time Notified: 11:24 Method of Notification: Verbal 12/26/24 07:19 Consult: Onc/Wound/claims processor Routine Comment: Reason For Visit: HYPOXIA W/EXERTION H/O COPD AND CHF Diagnosis Discharge Diagnosis (1) Acute hypoxic on chronic hypercapnic respiratory failure: Status: Acute Code(s): J96.01 - Acute respiratory failure with hypoxia; J96.12 - Chronic respiratory failure with hypercapnia Plan: Initial ABG showed pH of 7.2, pCO2 102.2 pO2 of 45. Patient was placed on BiPAPand subsequently improved later on that day. Continue BiPAP at night and with naps. Multifactorial due to COPD exacerbation, HFpEF, obesity hypoventilation syndrome, SHAHANA. Changed to prednisone. Patient requires volume ventilation and all other alternative therapies, including bilevel, have been considered and ruled out due to the severity of thedisease state, weak breathing muscles and potential life-threatening condition including CO2 retention probability of acute exacerbation, patient requires ventilation to be used during the day as needed, addition to every night usage with facemask. (2) (HFpEF) heart failure with preserved ejection fraction: Status: Acute Code(s): I50.30 - Unspecified diastolic (congestive) heart failure Plan: Volume overloaded on chest x-ray. Continue with the IV furosemide. Weight down roughly 4 kg since admission. Plan Obesity class III: Complicates care and recovery Diabetes mellitus type 2: Continue with glargine and sliding scale insulin Hypothyroidism: Continue levothyroxine Hypertension: Continue with lisinopril, metoprolol tartrate BPH with tamsulosin VTE prophylaxis with enoxaparin Disposition: DC home oxygen. Medications at Discharge Home Medications potassium chloride 20 mEq tablet,extended release(part/cryst) 20 meq PO DAILYCM SUPPLEMENT 04/23/19 tamsulosin 0.4 mg capsule 0.4 mg PO QHS PROSTATE 02/05/21 albuterol sulfate 90 mcg/actuation aerosol inhaler 2 puff inhalation Q4H PRN SHORTNESS OF BREATH/WHEEZING 02/11/21 montelukast 10 mg tablet (Singulair) 10 mg PO QHS PRN ALLERGIES 01/10/22 guaifenesin 600 mg tablet, extended release 12 hr (Mucinex) 600 mg PO Q12H PRN CONGESTION 02/04/22 fluticasone propionate 115 mcg-salmeterol 21 mcg/actuation HFA inhaler (Advair HFA) 2 puff inhalation BID COPD 07/31/22 blood sugar diagnostic 11/25/22 atorvastatin 80 mg tablet 80 mg PO QHS CHOLESTEROL 11/18/23 metoprolol tartrate 25 mg tablet 25 mg PO BID #120 tabs 03/31/24 levothyroxine 200 mcg tablet 275 mcg PO DAILY THYROID 07/07/24 omeprazole 20 mg capsule,delayed release 20 mg PO DAILY GERD 07/13/24 semaglutide 2 mg/dose (8 mg/3 mL) subcutaneous pen injector (Ozempic) 2 mg subcut QWEEK DIABETES 07/13/24 lisinopril 2.5 mg tablet 2.5 mg PO DAILY 10/20/24 finasteride 5 mg tablet (Proscar) 5 mg PO QDAY 11/11/24 glipizide 5 mg tablet 5 mg PO QDAY 11/11/24 melatonin 10 mg tablet 10 mg PO QHS SLEEP 11/11/24 sennosides 8.6 mg tablet (Greer-danyel) 17.2 mg PO QDAY 11/11/24 trazodone 50 mg tablet 100 mg PO QHS SLEEP 11/11/24 bisacodyl 10 mg rectal suppository 10 mg AR ONCE PRN constipation 11/19/24 furosemide 40 mg tablet 40 mg PO BID EDEMA 11/19/24 venlafaxine 37.5 mg tablet 37.5 mg PO BID 11/19/24 acetaminophen 325 mg capsule 650 mg PO Q6H PRN pain 11/30/24 ammonium lactate 12 % topical cream 1 applic topical BID PRN dry skin 11/30/24 magnesium hydroxide 400 mg/5 mL oral suspension (Dulcolax (magnesium hydroxide))30 ml PO DAILY PRN constipation 11/30/24 mineral oil-hydrophil petrolat topical ointment (AmeriPhor topical ointment) 1 applic topical DAILY 11/30/24 ondansetron 4 mg disintegrating tablet 4 mg PO DAILY PRN nausea and vomiting 11/30/24 sotalol 120 mg tablet (Betapace) 120 mg PO BID 11/30/24 insulin lispro 100 unit/mL subcutaneous pen (Humalog KwikPen (U-100) Insulin) See Protocol subcut ACHS 1 month #15 mL 12/18/24 midodrine 10 mg tablet 10 mg PO TIDCM 30 days #90 tabs 12/18/24 needle (disp) 32 gauge 32 gauge x 5/16 #100 ea 12/18/24 polyethylene glycol 3350 17 gram/dose oral powder (Miralax) 17 g PO DAILY Constipation 30 days #0 grams 12/18/24 insulin glargine 100 unit/mL (3 mL) subcutaneous pen (Lantus Solostar U-100 Insulin) 10 unit (0.1 mL) subcut QPM #15 mL 12/28/24 prednisone 20 mg tablet 40 mg (2 x 20 mg) PO DAILY #6 tabs 12/28/24 Hospital Course Operations None Procedures None Summary of Care Provided Minutes Spent on Discharge: 35 Weight / BMI Weight Weight: 147 kg Body Mass Index (BMI) 42.7 ABG / Lab / Microbiology Data 12/28/24 05:08 12/28/24 05:08 Laboratory: Laboratory Results - last 24 hr 12/27/24 15:38: POC Glucose 236 H 12/27/24 22:20: POC Glucose 150 H 12/28/24 05:08: WBC 11.3 H, RBC 4.54 L, Hgb 9.1 L, Hct 34.5 L, MCV 76.0 L, MCH 20.0 L, MCHC 26.4 L, RDW Std Deviation 54.7 H, RDW Coeff of Jovany 20.2 H, Plt Count 227, MPV 9.8, Immature Gran % (Auto) 0.400, Neut % (Auto) 71.8 H, Lymph % (Auto) 18.8 L, [place] % (Auto) 8.7, Eos % (Auto) 0.2, Baso % (Auto) 0.1, Absolute Neuts (auto) 8.1 H, Absolute Lymphs (auto) 2.13, Nucleated RBC % 0, Platelet Estimate 1, Anisocytosis 1+, Sodium 139, Potassium 4.3, Chloride 96 L, Carbon Dioxide 33.6 H, Anion Gap 9, BUN 19, Creatinine 0.59 L, Estim Creat Clear Calc 203.53, Est GFR (MDRD) Non-Af 112, BUN/Creatinine Ratio 32.1 H, Glucose 98, Calcium 8.6 12/28/24 06:23: POC Glucose 97 12/28/24 11:13: POC Glucose 154 H Microbiology: Microbiology 12/24/24 09:35 Urine Catheter - Lezama Urine Culture - Final Culture exhibits no growth. D/C Instructions Discharge Diet: 2000 Calorie Control Diet, 8 Cup Fluid Restriction and 2000 mg Sodium Diet DC O2, CPAP, BIPAP Needs Home O2 Discharge instructions: Yes Type of respiratory needs?: Oxygen Oxygen frequency: At rest and With Ambulation Oxygen liters per minute during Ambulation: 2 DC home with Oxygen: Yes Home O2 MD Review: I have reviewed the oxygen testing, and the patient qualifies for home oxygen equipment and portability. The patient is mobile in the home and the community. Meaningful Use Info Meaningful Use Meaningful Use Diagnoses (Choose all that apply): CHF CHF DARELL/ARB ordered at discharge?: Yes Documented LVEF (%): 65 Ischemic Stroke Statin Dosing Therapy Reference: STATIN DOSE THERAPY REFERENCE: * Patients > 75 years receive moderate or high dose statin therapy. * Patients 75 years or YOUNGER should receive HIGH intensity statin dose unless contraindicated. You will be required to document reason for non-treatment if statin daily dose does not meet guidelines. HIGH DOSE STATIN THERAPY DAILY Atorvastatin > than or = to 40 mg Rosuvastatin > than or = to 20 mg Amlodipine + Atorvastatin > than or = to 2.5/40 mg Ezetimibe + Simvastatin 10/80 mg Simvastatin 80mg Discharge Plan Admission Admit Date/Time: 12/23/24 18:46 Primary Reason for Your Visit: CHF exacerbation. Attending Provider: Alex Mayen Primary Care Provider: Morgan Baarjas MANUFACTURING MAINTENANCE MECHANIC Consulting Providers: Garyr Gross; Salinas Waddell; Bert Byrd; Enrico Bustillo; Jeovany Ovalles; Ernesto Wilder; Zion Blount; Jose Eduardo Jim; Linda Sullivan; Foster Geronimo; Richard Peterson; Benjamin Malhotra; Nicole Haywood; Raquel Foster; Hawa Chang; Sanju Woods; David Dallas; Ronak Goff; Henry Cronin; Naga Penn; Anita Rivera; Geovany Sorenson; Dajuan Thompson; Dedrick Vides; Marcellus Gunn Instructions Patient Instructions: Heart Failure Flare Up Signs, Diabetes Blood Glucose Check Ch, Heart Failure Make Changes Diet, Heart Failure Assessment, Heart Failure Dc, Diabetes Inspect Feet, Heart Failure Care, Diabetes and Illness, Heart Failure and Physical Activity Discharge Orders/Prescriptions Prescriptions: New prednisone 20 mg tablet 40 mg PO DAILY Qty: 6 0RF Continued tamsulosin 0.4 mg capsule 0.4 mg PO QHS guaifenesin [Mucinex] 600 mg tablet extended release 12hr 600 mg PO Q12H PRN (Reason: CONGESTION ) montelukast [Singulair] 10 mg tablet 10 mg PO QHS PRN (Reason: ALLERGIES ) fluticasone propion-salmeterol [Advair HFA] 115-21 mcg/actuation HFA aerosol inhaler 2 puff inhalation BID melatonin 10 mg tablet 10 mg PO QHS (DME) blood sugar diagnostic Kit See Rx Instructions .Route Rx Instructions: As directed omeprazole 20 mg capsule,delayed release(DR/EC) 20 mg PO DAILY Ozempic 2 mg/dose (8 mg/3 mL) pen injector 2 mg subcut QWEEK Rx Instructions: FRIDAY bisacodyl 10 mg suppository 10 mg AR ONCE PRN (Reason: constipation) venlafaxine 37.5 mg tablet 37.5 mg PO BID sennosides [Greer-danyel] 8.6 mg tablet 17.2 mg PO QDAY glipizide 5 mg tablet 5 mg PO QDAY finasteride [Proscar] 5 mg tablet 5 mg PO QDAY potassium chloride 20 MEQ tablet 20 meq PO DAILYCM 0RF albuterol sulfate 90 mcg/actuation HFA aerosol inhaler 2 puff INHALATION Q4H PRN (Reason: SHORTNESS OF BREATH/WHEEZING ) trazodone 50 mg tablet 100 mg PO QHS atorvastatin 80 mg tablet 80 mg PO QHS levothyroxine 200 mcg tablet 275 mcg PO DAILY furosemide 40 mg tablet 40 mg PO BID metoprolol tartrate 25 mg Tablet 25 mg PO BID Qty: 120 2RF acetaminophen 325 mg capsule 650 mg PO Q6H PRN (Reason: pain) ammonium lactate 12 % cream 1 applic topical BID PRN (Reason: dry skin) AmeriPhor Ointment 1 applic topical DAILY magnesium hydroxide [Dulcolax (magnesium hydroxide)] 400 mg/5 mL suspension 30 ml PO DAILY PRN (Reason: constipation) ondansetron 4 mg tablet,disintegrating 4 mg PO DAILY PRN (Reason: nausea and vomiting) sotalol [Betapace] 120 mg tablet 120 mg PO BID lisinopril 2.5 mg tablet 2.5 mg PO DAILY midodrine 10 mg tablet 10 mg PO TIDCM 30 Days Qty: 90 0RF Rx Instructions: Hold if SBP more than 100 mmHg polyethylene glycol 3350 [Miralax] 17 gram/dose powder 17 g PO DAILY 30 Days Qty: 0 0RF insulin lispro [Humalog KwikPen Insulin] 100 unit/mL insulin pen See Protocol subcut ACHS 30 Days Qty: 15 2RF Protocol: 4. Sliding Scale Insulin High-Med Dosing Condition: 150-199 mg/dl = 2 units Condition: 200-259 mg/dl = 4 units Condition: 260-324 mg/dl = 6 units Condition: 325-374 mg/dl = 8 units Condition: 375-409 mg/dl = 10 units Condition: 410-449 mg/dl = 11 units Condition: Greater than 449 call physician Protocol Text: Suggested for: - Patients on Total Daily Insulin Dose of 56-80 units - Patient who are known to be insulin resistant or septic HIGH MEDIUM DOSING ALGORITHM Rx Instructions: Hold if glucose less than 130 mg/dl (DME) needle (disp) 32 gauge 32 gauge x 5/16 needle See Rx Instructions .ROUTE .MEDSUPPLY Qty: 100 2RF Rx Instructions: As directed Changed insulin glargine [Lantus Solostar U-100 Insulin] 100 unit/mL (3 mL) insulin pen 10 unit subcut QPM Qty: 15 0RF Discontinued metformin 1,000 mg tablet 1,000 mg PO BID insulin lispro [Humalog KwikPen Insulin] 100 unit/mL Insulin Pen See Protocol subcut ACHS Qty: 0 0RF Protocol: 4. Sliding Scale Insulin High-Med Dosing Condition: 150-199 mg/dl = 2 units Condition: 200-259 mg/dl = 4 units Condition: 260-324 mg/dl = 6 units Condition: 325-374 mg/dl = 8 units Condition: 375-409 mg/dl = 10 units Condition: 410-449 mg/dl = 11 units Condition: Greater than 449 call physician Protocol Text: Suggested for: - Patients on Total Daily Insulin Dose of 56-80 units - Patient who are known to be insulin resistant or septic HIGH MEDIUM DOSING ALGORITHM cephalexin 500 mg capsule 500 mg PO TID 2 Days Qty: 6 0RF Referrals / Follow Up: [facility] [Provider Group] - 01/19/25 9:30 am [facility] [Provider Group] - Within 1 Month Morgan Barajas MANUFACTURING MAINTENANCE MECHANIC, MANUFACTURING MAINTENANCE MECHANIC-C [Primary Care Provider] - Within 2 Weeks Disposition Disposition (needs filled in before D/C Order can be placed): Home Health Service Charges/Coding Visit Charges Inpatient E&M: 65220 Disch Hosp >30min 12/28/24 1227 <Electronically signed by Alex Mayen DO> Cosigner Signature (if applicable): CC: MANUFACTURING MAINTENANCE MECHANIC-C Morgan Barajas; Dr. Alex Mayen DO~ Signed [facility] Work Phone: [phone] 272-566707-08-2025 Progress note Author Alex Mayen [facility] Note Date/Time December 28, 2024 12:08 pm [facility] Medical Records Department [address] [place] [address] Progress Note - Hospitalist 12/28/24 0816 MR#: [id number] Acct: [id number] Name: DERRELL HOYT Rep #:[id number] : 1965 59 From: Alex Mayen DO PCP: Morgan Barajas, MANUFACTURING MAINTENANCE MECHANIC-C Status: ADM IN Location: [place] [address] Reason for Visit Reason for Visit: Diagnoses Unspecified diastolic (congestive) heart failure (12/23/24) Acute respiratory failure with hypoxia (12/23/24) Chronic respiratory failure with hypercapnia (12/23/24) Hypoxemia (12/23/24) Subjective Subjective Feeling well. Oxygen 1 liter with rest and 2 liters with activity. Objective Data Objective Data Vital Signs: Vital Signs Temp Pulse Resp BP Pulse Ox O2 Del Method O2 Flow Rate 35.8 C L 70 20 H 118/62 98 Nasal Cannula 1 12/28/24 04:00 12/28/24 07:37 12/28/24 07:37 12/28/24 04:00 12/28/24 07:37 12/28/24 07:37 12/28/24 07:37 FiO2 30 12/27/24 23:31 Oxygen Flow Rate (L/min) 1 Oxygen Delivery Method Nasal Cannula Weight: 147 kg Body Mass Index (BMI) 42.7 Intake & Output: Intake and Output for Last 24 Hours 12/26/24 12/27/24 12/28/24 23:59 23:59 23:59 Intake Total 1642.09 / 1642.09 550 / 550 Output Total 9100 / 9100 2350 / 2350 Balance -7457.91 / -7457.91 -1800 / -1800 Lab / Micro Data 12/28/24 05:08 12/28/24 05:08 Labs: Laboratory Results - last 24 hr 12/27/24 11:11: POC Glucose 126 H 12/27/24 15:38: POC Glucose 236 H 12/27/24 22:20: POC Glucose 150 H 12/28/24 05:08: WBC 11.3 H, RBC 4.54 L, Hgb 9.1 L, Hct 34.5 L, MCV 76.0 L, MCH 20.0 L, MCHC 26.4 L, RDW Std Deviation 54.7 H, RDW Coeff of Jovany 20.2 H, Plt Count 227, MPV 9.8, Immature Gran % (Auto) 0.400, Neut % (Auto) 71.8 H, Lymph % (Auto) 18.8 L, [place] % (Auto) 8.7, Eos % (Auto) 0.2, Baso % (Auto) 0.1, Absolute Neuts (auto) 8.1 H, Absolute Lymphs (auto) 2.13, Nucleated RBC % 0, Platelet Estimate 1, Anisocytosis 1+, Sodium 139, Potassium 4.3, Chloride 96 L, Carbon Dioxide 33.6 H, Anion Gap 9, BUN 19, Creatinine 0.59 L, Estim Creat Clear Calc 203.53, Est GFR (MDRD) Non-Af 112, BUN/Creatinine Ratio 32.1 H, Glucose 98, Calcium 8.6 12/28/24 06:23: POC Glucose 97 Micro: Microbiology 12/24/24 09:35 Urine Catheter - Lezama Urine Culture - Final Culture exhibits no growth. Physical Exam Const alert and no apparent distress HEENT head/scalp atraumatic and moist oral mucous membranes Resp normal respiratory effort, no retractions, no use of accessory muscles and clearto auscultation bilaterally Cardio regular rate, regular rhythm, S1 normal heart sound and S2 normal heart sound GI normal to inspection, nondistended, normoactive bowel sounds and soft to palpation Extremity General Extremity: edema bilateral lower extremity Details: moderate Assessment & Plan Assessment/Plan (1) Acute hypoxic on chronic hypercapnic respiratory failure: PLAN: Initial ABG showed pH of 7.2, pCO2 102.2 pO2 of 45. Patient was placed onBiPAP and subsequently improved later on that day. Continue BiPAP at night and with naps. Multifactorial due to COPD exacerbation, HFpEF, obesity hypoventilation syndrome, SHAHANA. Changed to prednisone. Patient requires volume ventilation and all other alternative therapies, including bilevel, have been considered and ruled out due to the severity of thedisease state, weak breathing muscles and potential life-threatening condition including CO2 retention probability of acute exacerbation, patient requires ventilation to be used during the day as needed, addition to every night usage with facemask. (2) (HFpEF) heart failure with preserved ejection fraction: PLAN: Volume overloaded on chest x-ray. Continue with the IV furosemide. Weight down roughly 4 kg since admission. PLAN: Plan Obesity class III: Complicates care and recovery Diabetes mellitus type 2: Continue with glargine and sliding scale insulin Hypothyroidism: Continue levothyroxine Hypertension: Continue with lisinopril, metoprolol tartrate BPH with tamsulosin VTE prophylaxis with enoxaparin Disposition: hopefully home soon in 1-2 days. 12/28/24 1208 <Electronically signed by Alex Mayen DO> Cosigner Signature (if applicable): CC: ~ Signed [facility] Work Phone: 1(423) 798-776007-08-2025 [facility]07-07-2025 Progress note Author Alex Mayen [facility] Note Date/Time December 27, 2024 4:26p m [facility] Medical Records Department [address] [place] [address] Progress Note - Hospitalist 12/27/24 0948 MR#: [id number] Acct: [id number] Name: DERRELL HOYT Rep #:[id number] : 1965 59 From: Alex Mayen DO PCP: Morgan Barajas MANUFACTURING MAINTENANCE MECHANIC-C Status: ADM IN Location: [place] [address] Reason for Visit Reason for Visit: Diagnoses Hypoxemia (12/23/24) Subjective Subjective Feeling better Objective Data Objective Data Vital Signs: Vital Signs Temp Pulse Resp BP Pulse Ox O2 Del Method O2 Flow Rate 36.6 C 69 16 120/70 99 Nasal Cannula 1 12/27/24 02:50 12/27/24 07:28 12/27/24 07:28 12/27/24 02:50 12/27/24 07:28 12/27/24 07:28 12/27/24 07:28 FiO2 30 12/26/24 23:00 Oxygen Flow Rate (L/min) 1 Oxygen Delivery Method Nasal Cannula Weight: 147 kg Body Mass Index (BMI) 42.7 Intake & Output: Intake and Output for Last 24 Hours 12/25/24 12/26/24 12/27/24 23:59 23:59 23:59 Intake Total 1555 / 1795 1642.09 / 1642.09 550 / 550 Output Total 3350 / 4500 9100 / 9100 700 / 700 Balance -1795 / -2705 -7457.91 / -7457.91 -150 / -150 Lab / Micro Data 12/26/24 04:26 12/27/24 06:09 Labs: Laboratory Results - last 24 hr 12/26/24 11:42: POC Glucose 250 H 12/26/24 16:37: POC Glucose 190 H 12/26/24 21:12: POC Glucose 223 H 12/27/24 06:09: Sodium 136, Potassium 4.1, Chloride 94 L, Carbon Dioxide 34.9 H,Anion Gap 7, BUN 18, Creatinine 0.64 L, Estim Creat Clear Calc 187.63, Est GFR (MDRD) Non-Af 109, BUN/Creatinine Ratio 28.5 H, Glucose 103 H, Calcium 8.5 12/27/24 06:37: POC Glucose 107 H Micro: Microbiology 12/24/24 09:35 Urine Catheter - Lezama Urine Culture - Final Culture exhibits no growth. Physical Exam Const alert and no apparent distress HEENT head/scalp atraumatic and moist oral mucous membranes Resp normal respiratory effort, no retractions, no use of accessory muscles and clearto auscultation bilaterally Cardio regular rate, regular rhythm, S1 normal heart sound and S2 normal heart sound GI normal to inspection, nondistended, normoactive bowel sounds, soft to palpation,non-tender and non-distended Extremity General Extremity: edema bilateral lower extremity Details: moderate Assessment & Plan Assessment/Plan (1) Acute hypoxic on chronic hypercapnic respiratory failure: PLAN: Initial ABG showed pH of 7.2, pCO2 102.2 pO2 of 45. Patient was placed onBiPAP and subsequently improved later on that day. Continue BiPAP at night and with naps. Multifactorial due to COPD exacerbation, HFpEF, obesity hypoventilation syndrome, SHAHANA. Changed to prednisone. (2) (HFpEF) heart failure with preserved ejection fraction: PLAN: Volume overloaded on chest x-ray. Continue with the IV furosemide. Weight down roughly 4 kg since admission. PLAN: Plan Obesity class III: Complicates care and recovery Diabetes mellitus type 2: Continue with glargine and sliding scale insulin Hypothyroidism: Continue levothyroxine Hypertension: Continue with lisinopril, metoprolol tartrate BPH with tamsulosin VTE prophylaxis with enoxaparin Disposition: hopefully home soon in 1-2 days. Charges/Coding Visit Charges Inpatient E&M: 60722 Subs Hosp L2 12/27/24 1626 <Electronically signed by Alex Mayen DO> Cosigner Signature (if applicable): CC: ~ Signed [facility] Work Phone: 1(280) 426-120607-06-2025 Progress note Author Marcellus Gunn [facility] Note Date/Time December 26, 2024 2:24p m [facility] Medical Records Department [address] [place] [address] Progress Note - Hospitalist 12/26/24 1416 MR#: [id number] Acct: [id number] Name: DERRELL HOYT Rep #:[id number] : 1965 59 From: Marcellus Cochran PCP: CHRISTIANO TamezC Status: ADM IN Location: [facility] [id number] Reason for Visit Reason for Visit: Diagnoses Hypoxemia (12/23/24) Objective Data Objective Data Vital Signs: Vital Signs Temp Pulse Resp BP Pulse Ox O2 Del Method O2 Flow Rate 97.1 F L 78 18 136/77 H 96 Nasal Cannula 1 12/26/24 10:19 12/26/24 10:58 12/26/24 10:58 12/26/24 10:19 12/26/24 10:19 12/26/24 10:19 12/26/24 10:19 FiO2 30 12/26/24 03:16 Oxygen Flow Rate (L/min) 1 Oxygen Delivery Method Nasal Cannula Weight: 322 lb 12.108 oz Body Mass Index (BMI) 42.5 Intake & Output: Intake and Output for Last 24 Hours 12/24/24 12/25/24 12/26/24 23:59 23:59 23:59 Intake Total 1650 / 1650 1555 / 1795 696.67 / 696.67 Output Total 5475 / 5475 3350 / 4500 3100 / 3100 Balance -3825 / -3825 -1795 / -2705 -2403.33 / -2403.33 Lab / Micro Data 12/26/24 04:26 12/26/24 04:26 Labs: Laboratory Results - last 24 hr 12/25/24 16:48: POC Glucose 153 H 12/25/24 21:00: POC Glucose 304 H 12/26/24 04:26: WBC 14.8 H, RBC 4.33 L, Hgb 8.6 L, Hct 32.2 L, MCV 74.4 L, MCH 19.9 L, MCHC 26.7 L, RDW Std Deviation 55.0 H, RDW Coeff of Jovany 20.6 H, Plt Count 222, MPV 9.6, Immature Gran % (Auto) 0.500, Neut % (Auto) 89.7 H, Lymph % (Auto) 5.9 L, [place] % (Auto) 3.8, Eos % (Auto) 0.0, Baso % (Auto) 0.1, Absolute Neuts (auto) 13.3 H, Absolute Lymphs (auto) 0.88, Nucleated RBC % 0, Anisocytosis 2+, Sodium 134, Potassium 4.4, Chloride 93 L, Carbon Dioxide 32.3 H, Anion Gap 9, BUN 17, Creatinine 0.72, Estim Creat Clear Calc 166.41, Est GFR (MDRD) Non-Af 105, BUN/Creatinine Ratio 23.8 H, Glucose 139 H, Calcium 8.7 12/26/24 06:27: POC Glucose 144 H 12/26/24 11:42: POC Glucose 250 H Micro: Microbiology 12/24/24 09:35 Urine Catheter - Lezama Urine Culture - Final Culture exhibits no growth. Physical Exam Narrative Seen and examined Yesterday, patient was transferred to PCU. He did well on BiPAP last night. Noacute issues. On baseline 2 L of oxygen. No chest pain shortness of breath. Physical exam General: Alert, Oriented x3, Cooperative HEENT: Atraumatic, PERRLA, EOMI, Normocephalic. Oral: No Gingival or Mucosal Lesions/ Ulcerations Neck: Supple, No JVD, Negative Carotid Bruits Chest wall/Lungs: Air entry diminished in bilateral lungs. Lungs clear. BiPAPas needed at night Cardiovascular: Regular rate and rhythm, Normal S1,S2, No M/G/R Abdomen: Bowel Sounds sluggish, Soft, Non Tender, abdominal fat/swelling : No dysuria. No renal angle tenderness. No suprapubic tenderness. Extremities: Bilateral 2+ edema, ambulatory. Capillary Refill Less than 3 Seconds Skin: NBilateral venous congestion suggestive of venous hypertension/stasis, dressing. Musculoskeletal: No Tenderness to Palpation of Joints or Extremities Neurological: Cranial nerves II-XII grossly intact, DTR 2+/4. No acute focal neurological deficit. Psych/Mental Status: Normal Affect, Appropriate. Assessment & Plan Assessment/Plan (1) Hypoxia: PLAN: Plan Patient is a 59-year-old male who presented to [facility] ED on 12/23/2024 with worsening shortness of breath predominantly with any amount of exertion for 1 month. No cough, chest pain, fever or chills. No sore throat orrhinorrhea. 1. Acute hypoxic and hypercarbic respiratory with CO2 narcosis due to COPD exacerbation, SHAHANA/OHS due to morbid obesity and acute encephalopathy due to metabolic encephalopathy. Initially patient was admitted to [facility] floor. Patient had hypoxia with exertion, pulse ox 85% in ED and required 2-3 L on baseline. CPAP was prescribed but patient probably did not wear it. Chest x-ray on admission was clear. 12/24: The morning patient was very lethargic sleepy and hypopneic. Minimally responsive. ABG was done. Patient was immediately moved to ICU. ABG 7.20/102.2/45 on 2 L of oxygen, total CO2 43. Baseline CO2 around 30-32, today 34.5. Patient immediately ordered BiPAP and transferred to ICU for further care. Clinical Study Manager consulted Later on about 10 to 11 AM, I went to see the patient and he was waking up on the BiPAP. He responds that he can breathe on BiPAP. Repeat ABG shows 7.40/65.7/103 on BiPAP PEEP 10. Therefore patient does not need intubation. Discussed with Dr. Ovalles bsw about ABG and acute on chronic combined respiratory failure with [id number]. Patient is improving. Regular bsw consult for tomorrow. 12/25: Patient diuresed well 5.5 L. Furosemide changed to 40 mg IV daily. Discussed with the bsw regarding probability of obesity hypoventilation and need for BiPAP during naps and at night with titration. The patient will need to go home on a BiPAP. The patient is being managed on scheduled bronchodilator, IV Solu-Medrol, Mucinex, incentive spirometry and Pep. Urine culture negative. Acute encephalopathy resolved. 12/26: Change IV Solu-Medrol to prednisone. Rest above continue. recreation establishment manager consult and plan for discharge on BiPAP probably tomorrow. Urine culture shows no growth. Chest x-ray initially reviewed and she seems left lower lobe atelectasis. No fever or chill. Hemodynamically stable. Currently on 1 L ofoxygen therefore empiric IV Zosyn discontinued 2. Acute on chronic HFpEF with recent admission from 12/15-12/18 for left lower extremity venous edema/lymphedema complicated with mild cellulitis : During last admission patient was discharged on furosemide 40 mg twice daily, metoprolol 25 mg twice daily, lisinopril 2.5 mg daily and atorvastatin 80 mg daily. Advised to continue the same. Echo 12/16/2024 suggestive of chronic HFpEF Mild concentric left ventricular hypertrophy. The LV ejection fraction is 65 %. Stage 1 diastolic dysfunction. There is mild biatrial dilatation. The study was technically difficult. First x-ray shows chronic interstitial changes, stable compressive atelectasis of the left lung base and stable elevation of left diaphragm.. Repeat chest x-ray in the morning shows worsening of vascular congestion/pulmonary edema mainlyin hilar area. Patient got Lasix 40 mg IV before x-ray was done. Continue Lasix 40 IV twice daily. Heart failure core measures including intake and output, fluid restriction less than 1500 mL, daily weight monitoring, kidney and electrolytes monitoring. 12/25: Continue off treatment except furosemide changed to 40 mg IV daily. Patient was also feeling thirsty and mildly hydrated. Advised oral fluid intake. 12/26: change Lasix to 40 mg IV twice daily. Patient has significant leg swellingbut his lungs are clear. Continue Darell wrap bandage PT and OT. BUN/creatinine 17/0.72 normal. Chronic medical conditions: ? History of CAD with stenting,, history of NSVT, hypertension, hyperlipidemia: Normotensive and in normal sinus rhythm on admit. Continue home statin, Lasix, lisinopril, Lopressor, and sotalol. Notably has had issues with orthostatic hypotension, continue home midodrine. ? Type 2 diabetes mellitus with recent episodes of hypoglycemia: Recent A1c 5.3%. Had low glucose values down to the 40s during previous hospitalization. Hold long- acting insulin and other home oral medications. Will treat with sliding scale insulin with meals while inpatient, adjust as needed. 12/25: Glucose varies between 156?250. Scheduled Lantus 10 units started. 12/26: Glucose is about 150. Fasting glucose 139. ? Hypothyroidism: Continue home Synthroid. ? BPH with obstructive disease: Continue home Flomax and finasteride. ? GERD: Continue home PPI. ? Chronic iron deficiency anemia: Hemoglobin 9.1 on admit, at baseline. ? Former tobacco use: Encouraged continued cessation. DVT prophylaxis: Lovenox twice daily CODE STATUS: Full code, verified Microbiology Past 72 Hours 12/24/24 09:35 Urine Catheter - Lezama Urine Culture - Final Culture exhibits no growth. Laboratory Results 12/25/24 16:48: POC Glucose 153 H 12/25/24 21:00: POC Glucose 304 H 12/26/24 04:26: WBC 14.8 H, RBC 4.33 L, Hgb 8.6 L, Hct 32.2 L, MCV 74.4 L, MCH 19.9 L, MCHC 26.7 L, RDW Std Deviation 55.0 H, RDW Coeff of Jovany 20.6 H, Plt Count 222, MPV 9.6, Immature Gran % (Auto) 0.500, Neut % (Auto) 89.7 H, Lymph % (Auto) 5.9 L, [place] % (Auto) 3.8, Eos % (Auto) 0.0, Baso % (Auto) 0.1, Absolute Neuts (auto) 13.3 H, Absolute Lymphs (auto) 0.88, Nucleated RBC % 0, Anisocytosis 2+, Sodium 134, Potassium 4.4, Chloride 93 L, Carbon Dioxide 32.3 H, Anion Gap 9, BUN 17, Creatinine 0.72, Estim Creat Clear Calc 166.41, Est GFR (MDRD) Non-Af 105, BUN/Creatinine Ratio 23.8 H, Glucose 139 H, Calcium 8.7 12/26/24 06:27: POC Glucose 144 H 12/26/24 11:42: POC Glucose 250 H Charges/Coding Visit Charges Inpatient E&M: 53778 Subs Hosp L2 12/26/24 1424 <Electronically signed by Marcellus Gunn MD> Cosigner Signature (if applicable): CC: ~ Signed [facility] Work Phone: [phone]) 769-269907-06-2025 Progress note Author Ernesto Wilder [facility] Note Date/Time December 26, 2024 1:13p [facility] Medical Records Department [address] [place] [id number] Progress Note - Clinical Study Manager 12/26/24 1309 MR#: [id number] Acct: [id number] Name: DERRELL HOYT Rep #:[id number] : 1965 59 From: Ernesto Cochran PCP: Morgan Barajas, MANUFACTURING MAINTENANCE MECHANIC-C Status: ADM IN Location: [place] [address] Objective Data Objective Data Vital Signs: Vital Signs Last response 3 Temperature 36.2 C L 12/26/24 10:19 Temperature Source Temporal 12/26/24 10:19 Pulse Rate 78 12/26/24 10:58 Pulse Strength Weak (1+) 12/26/24 08:25 Respiratory Rate 18 12/26/24 10:58 Respiratory Effort Normal, Non-Labored 12/26/24 08:25 Respiratory Depth Normal 12/26/24 08:25 Respiratory Pattern Normal 12/26/24 10:58 Blood Pressure 136/77 H 12/26/24 10:19 Blood Pressure Mean 96 12/26/24 10:19 Blood Pressure Source Monitor 12/25/24 10:00 Blood Pressure Position Semi-Fowlers 12/25/24 10:00 Blood Pressure Location Right Forearm 12/25/24 10:00 Pulse Ox 96 12/26/24 10:19 Oxygen Delivery Method Nasal Cannula 12/26/24 10:19 Oxygen Flow Rate (L/min) 1 12/26/24 10:19 Fraction of Inspired Oxygen (FIO2) 30 12/26/24 03:16 I&O: I&O Last 24 Hours 3 12/25/24 12/26/24 12/26/24 23:59 11:59 23:59 Intake Total 645 / 1795 696.67 / 696.67 Output Total 1150 / 4500 3100 / 3100 Balance -505 / -2705 -2403.33 / -2403.33 I&O: Total Stay 3 12/23/24 12:52 thru 12/26/24 11:28 Intake Total 3901.67 Output Total 80036 Balance -8023.33 Current Meds Ordered / Administered: Current meds ordered / Administered 3 Generic Name Dose Route Start Last Admin Trade Name Leona PRN Reason Stop Dose Admin Acetaminophen 650 mg 12/23/24 20:30 Acetaminophen 325 Mg Tablet PO Q6H PRN PRN Pain 1-10 Or Fever>100.7 Albuterol/Ipratropium 3 ml 12/24/24 09:00 12/26/24 10:57 Ipratropium/Albuterol Sulfate 3 Ml Ampul.Neb INHALATION 3 ml Q4H.RT MARIAMA Administration Atorvastatin Calcium 80 mg 12/23/24 22:00 12/25/24 20:56 Atorvastatin Calcium 80 Mg Tablet PO 80 mg QHS MARIAMA Administration Calamine/Phenol 1 applic 12/23/24 22:00 12/26/24 08:24 Menthol/Lanolin/Calamine/Znox 113 Gm Tube TOPICAL 1 applic BID MARIAMA Administration Protocol Enoxaparin Sodium 40 mg 12/24/24 10:00 12/26/24 08:26 Enoxaparin 40 Mg/0.4 Ml Syringe SC 40 mg BID MARIAMA Administration Finasteride 5 mg 12/24/24 10:00 12/26/24 08:26 Finasteride 5 Mg Tablet PO 5 mg DAILY MARIAAM Administration Furosemide 40 mg 12/26/24 10:00 12/26/24 10:19 Furosemide 40 Mg/4 Ml Vial IV 40 mg DAILY MARIAMA Administration Protocol Glucagon 1 mg 12/23/24 20:30 Glucagon 1 Mg/Ml Syringe IM X1 PRN Hypoglycemia Protocol Dextrose 250 mls @ 0 mls/hr 12/23/24 20:30 Dextrose 10%-Water IV .Q0M PRN HYPOGLYCEMIA Protocol As Directed Sodium Chloride 250 mls @ 15 mls/hr 12/23/24 20:33 IV .[id number] PRN Saline Flush Sodium Chloride 250 mls @ 15 mls/hr 12/23/24 20:33 IV .[id number] PRN Additional IVPB Infusion Piperacillin Sod/Tazobactam 50 mls @ 12.5 mls/hr 12/24/24 10:00 12/26/24 10:31 Sod 3.375 gm/ Sodium Chloride IV Infused Q8 MARIAMA Infusion Dextrose 250 mls @ 0 mls/hr 12/25/24 10:19 Dextrose 10%-Water IV .Q0M PRN HYPOGLYCEMIA Protocol As Directed Insulin Glargine 10 unit 12/25/24 11:30 12/26/24 08:28 Insulin Glargine-Yfgn 100 Unit/Ml Pen SC 10 unit DAILY MARIAMA Administration Protocol Insulin Human Lispro 0 unit 12/23/24 22:00 12/26/24 11:44 Insulin Lispro 100 Unit/Ml Insuln.Pen SC 4 u ACHS MARIAMA Administration Protocol Levothyroxine Sodium 200 mcg 12/24/24 06:00 12/26/24 06:31 Levothyroxine 100 Mcg Tablet PO 200 mcg DAILY@0600 MARIAMA Administration Levothyroxine Sodium 75 mcg 12/24/24 06:00 12/26/24 06:31 Levothyroxine 75 Mcg Tablet PO 75 mcg DAILY@0600 MARIAMA Administration Lisinopril 2.5 mg 12/24/24 10:00 12/26/24 10:19 Lisinopril 2.5 Mg Tablet PO 2.5 mg DAILY MARIAMA Administration Protocol Melatonin 10 mg 12/23/24 22:00 12/25/24 20:58 Melatonin 10 Mg Tablet PO 10 mg QHS MARIAMA Administration Methylprednisolone Sodium Succinate 40 mg 12/24/24 08:55 12/26/24 06:31 Methylprednisolone Sod Succ 40 Mg/Ml Vial IV 40 mg Q8 MARIAMA Administration Metoprolol Tartrate 25 mg 12/23/24 22:00 12/26/24 08:26 Metoprolol Tartrate 25 Mg Tablet PO 25 mg BID MARIAMA Administration Protocol Midodrine 10 mg 12/24/24 08:00 12/26/24 11:44 Midodrine Hcl 5 Mg Tablet PO 10 mg TIDCM MARIAMA Administration Montelukast Sodium 10 mg 12/23/24 20:30 Montelukast 10 Mg Tablet PO QHS PRN ALLERGIES Nystatin 1 applic 12/23/24 22:00 12/26/24 08:26 Nystatin Powder 15gm Bottle TOPICAL 1 applic BID [facility] Administration Protocol Ondansetron HCl 4 mg 12/23/24 20:30 Ondansetron 4 Mg/2 Ml Vial IV Q8H PRN PRN NAUSEA/VOMITING Pantoprazole Sodium 20 mg 12/24/24 10:00 12/26/24 08:25 Pantoprazole Sodium 20 Mg Tablet PO 20 mg DAILY MARIAMA Administration Polyethylene Glycol 17 gm 12/23/24 20:49 Polyethylene Glycol 3350 17 Gm Packet PO DAILY PRN constipation Potassium Chloride 20 meq 12/24/24 08:00 12/26/24 08:23 Potassium Chloride Oral Tablet 20 Meq PO 20 meq DAILYCM MARIAMA Administration Senna/Docusate Sodium 2 tablet 12/24/24 09:51 Senna/Docusate Sodium 1 Tablet PO BID PRN PRN Constipation Sodium Chloride 10 - 40 ml 12/23/24 20:33 12/26/24 10:19 0.9% Saline Lock 10 Ml Syringe IV 10 ml UD PRN Administration SALINE FLUSH Sotalol HCl 120 mg 12/23/24 22:00 12/26/24 08:25 Sotalol Hydrochloride 80 Mg Tablet PO 120 mg BID MARIAMA Administration Tamsulosin HCl 0.4 mg 12/23/24 22:00 12/25/24 20:57 Tamsulosin Hcl 0.4 Mg Capsule PO 0.4 mg QHS MARIAMA Administration Medical Records Data Attestation: I reviewed the patient's medical records Lab / Micro Data Attestation: I reviewed the patient's lab results. 12/26/24 04:26 12/26/24 04:26 Labs: Laboratory Results - last 24 hr 12/25/24 16:48: POC Glucose 153 H 12/25/24 21:00: POC Glucose 304 H 12/26/24 04:26: WBC 14.8 H, RBC 4.33 L, Hgb 8.6 L, Hct 32.2 L, MCV 74.4 L, MCH 19.9 L, MCHC 26.7 L, RDW Std Deviation 55.0 H, RDW Coeff of Jovany 20.6 H, Plt Count 222, MPV 9.6, Immature Gran % (Auto) 0.500, Neut % (Auto) 89.7 H, Lymph % (Auto) 5.9 L, [place] % (Auto) 3.8, Eos % (Auto) 0.0, Baso % (Auto) 0.1, Absolute Neuts (auto) 13.3 H, Absolute Lymphs (auto) 0.88, Nucleated RBC % 0, Anisocytosis 2+, Sodium 134, Potassium 4.4, Chloride 93 L, Carbon Dioxide 32.3 H, Anion Gap 9, BUN 17, Creatinine 0.72, Estim Creat Clear Calc 166.41, Est GFR (MDRD) Non-Af 105, BUN/Creatinine Ratio 23.8 H, Glucose 139 H, Calcium 8.7 12/26/24 06:27: POC Glucose 144 H 12/26/24 11:42: POC Glucose 250 H Micro: Microbiology 12/24/24 09:35 Urine Catheter - Lezama Urine Culture - Final Culture exhibits no growth. Assessment and Plan . Assessment and plan: Assessment: Acute Exacerbation of COPD Acute Hypercapnic and Hypoxemic Respiratory Failure HFpEF Mild Protein Calorie Malnutrition Leukocytosis Sleep Disordered Breathing Cardiogenic Pulmonary Edema Volume Overload Chronic Wound Infection of Lower Extremity -cont diuresis as tolerated -cont wound care -transition to pred taper -Bipap recommendations: Start IPAP 12-15 cm H20, EPAP 4-5 cm H20; O2 as needed to keep SaO2 90-94% Titrate IPAP as tolerated for effect/comfort -[facility] generally will approve non-invasive ventilation for COPD patients with hypercapnia provided there is an ABG on prescribed amount of O2 which demonstrates a pCO2 > 45 mm Hg. Rec getting an ABG prior to discharge (provided he is compensated) and referringto case management for arranging the DME logistics. If his CO2 does not meet requirements he will need an outpt polysomnogram Case management/SW will assess options moving forward. May benefit from IPR or SNF. The entirety of this encounter was done via Telemedicine Physical Exam Const alert and oriented x3 General Appearance: cooperative HEENT normocephalic Eyes no scleral icterus Resp normal respiratory effort and no use of accessory muscles Effort and Inspection: able to speak in complete sentences Auscultation: clear to auscultation bilaterally Cardio regular rate, regular rhythm, S1 normal heart sound, no murmurs, no rub and no gallops GI normal to inspection, nondistended, normoactive bowel sounds Extremity no clubbing, cyanosis or edema Extremity Narrative: LE dressing intact Neuro oriented x3, moves all extremities and no focal motor deficits Psych cooperative and affect normal Appearance: well kempt Speech: normal speech Subjective Subjective Sitting up in chair. Had some trouble getting comfortable with bipap last night but wore it for at least one 3 hour stretch. Overall breathing comfortably. Concerned that Assisted Living won't be able to meet his immediate needs. 12/26/24 1313 <Electronically signed by Ernesto Wilder MD> Cosigner Signature (if applicable): CC: ~ Signed [facility] Work Phone: [phone] 359-966907-05-2025 Consult note Author Ernesto Wilder [facility] Note Date/Time December 25, 2024 12:37 pm [facility] Medical Records Department [address] [place] [address] Consultation - Clinical Study Manager 12/25/24 1216 MR#: [id number] Acct: [id number] Name: DERRELL HOYT Rep #:[id number] : 1965 59 From: Ernesto Cochran PCP: Morgan Barajas NP-C Status: ADM IN Location: ICU ICU04-1 HPI Consult Data Date of Consult: 12/25/24 HPI Narrative Reason for Consultation: Hypercapnic Respiratory Failure HPI Narrative: Pt is a pleasant 59 yo man with multiple problems outlined below who presented to this facility on 12/23/24 with acute worsening of dyspnea. He has a chronic wound in his LLE for which he has been receiving care. He was discharged from acute care recently and went to an assisted living center but developed acute worsening of his dyspnea and presented to the ED where he was found be hypoxic with SaO2 85% on room air. He was admitted with a diagnosis of acute exacerbation of COPD. In the hospital he developed worsening hypercapnia and onthe night of 12/24/24 he was transferred to the ICU when pCO2 was > 100. He was placed on bipap with subsequent improvement in level of arousal and pCO2. At thetime of my exam he was sitting up in a chair. He has little memory of the events of the prior night. He states that he had a sleep study a few years ago and was told he needed CPAP (or bipap) but he never started that therapy. He nolonger smokes and does not wear O2 at home. [facility] Medical History (Reviewed 12/22/24 @ 12:01 by Claudia Urena MANUFACTURING MAINTENANCE MECHANIC, MANUFACTURING MAINTENANCE MECHANIC-C) Redness of skin Thyroid disease Insulin dependent [...] encounter Tumor Atherosclerosis of coronary artery of [place] heart without angina pectoris Kidney stones COPD [...] 10 mg tablet 10 mg PO QHS PRN ALLERGIES 0 01/10/22 12/29/23 History (Singulair) guaifenesin 600 mg tablet, 600 mg PO Q12H PRN CONGESTI ON 02/04/22 11/18/23 History extended release 12 hr (Mucinex) fluticasone propionate 115 2 puff inhalation BID COPD 07/31/22 12/30/23 History mcg-salmeterol 21 mcg/actuation HFA inhaler (Advair HFA) blood sugar diagnostic 11/25/22 Unknown History atorvastatin 80 mg tablet 80 mg PO QHS CHOLESTEROL 12/22/24 History metoprolol tartrate 25 mg tablet 25 mg [...] 11/11/24 Unknown History sennosides 8.6 mg tablet (Greer-danyel) 17.2 mg PO QDAY Unknown History trazodone 50 mg tablet 100 mg PO QHS SLEEP 11/11/24 Unknown History bisacodyl 10 mg rectal suppository 10 mg AR ONCE PRN c onstipation 11/19/24 Unknown History furosemide 40 mg tablet 40 mg PO BID EDEMA 11/19/24 Unknown History venlafaxine 37.5 mg tablet 37.5 mg PO BID 11/19/24 Unk nown History acetaminophen 325 mg capsule 650 mg PO Q6H PRN pain 12/23/24 History ammonium lactate 12 % topical cream 1 applic topical B ID PRN dry skin 11/30/24 12/23/24 History magnesium hydroxide 400 mg/5 mL 30 ml [...] 120 mg PO BID 5 Unknown History cephalexin 500 mg capsule 500 mg PO TID 2 days #6 caps 12/18/24 Unknown Rx insulin lispro 100 unit/mL See Protocol subcut ACHS #0 mL 12/18/24 Unknown Rx subcutaneous pen (Humalog KwikPen (U-100) Insulin) insulin lispro 100 unit/mL See Protocol subcut ACHS 1 month 12/18/24 Unknown Rx subcutaneous pen (Humalog KwikPen #15 mL (U-100) Insulin) midodrine 10 mg tablet 10 mg PO TIDCM 30 days #90 t abs 12/18/24 Unknown Rx needle (disp) 32 gauge 32 gauge x #100 ea 12/18/24 Unk nown Rx 11/05 polyethylene glycol 3350 17 17 g PO DAILY Constipation 30 days 12/18/24 10/19/24 Rx gram/dose oral powder (Miralax) #0 grams Allergy/AdvReac Type Severity Reaction Status Date / Time No Known Allergies Allergy Verified 12/22/24 10:52 Family History Father Heart disease Hypertension Mother Brain aneurysm Surgical History History of cardiac catheterization Hx of colonoscopy History of coronary artery stent placement (01/18/21) History of thyroidectomy Social History household members: other details: Assisted living housing: assisted living facility current occupational status: disabled Smoking Status: Former smoker how long ago did patient quit smokin years ago alcohol intake: never substance use type: does not use caffeine: Yes Type: carbonated beverages Objective Data Objective Data Vital Signs: Vital Signs Last response 3 Temperature 36.9 C 12/25/24 04:00 Temperature Source Temporal 12/25/24 04:00 Pulse Rate 78 12/25/24 11:12 Respiratory Rate 16 12/25/24 11:12 Respiratory Effort Short of Breath 12/25/24 08:00 Respiratory Depth Shallow 12/25/24 08:00 Respiratory Pattern Tachypnea 12/25/24 08:00 Blood Pressure 124/64 H 12/25/24 10:00 Blood Pressure Mean 84 12/25/24 10:00 Blood Pressure Source Monitor 12/25/24 10:00 Blood Pressure Position Semi-Fowlers 12/25/24 10:00 Blood Pressure Location Right Forearm 12/25/24 10:00 Pulse Ox 93 12/25/24 11:12 Oxygen Delivery Method Nasal Cannula 12/25/24 11:12 Oxygen Flow Rate (L/min) 1.5 12/25/24 11:12 Fraction of Inspired Oxygen (FIO2) 40 12/25/24 04:00 I&O: I&O Last 24 Hours 3 12/24/24 12/25/24 12/25/24 23:59 11:59 23:59 Intake Total 1650 / 1650 910 / 910 Output Total 5475 / 5475 2200 / 2200 Balance -3825 / -3825 -1290 / -1290 I&O: Total Stay 3 12/23/24 12:52 thru 12/25/24 11:36 Intake Total 2560 Output Total 7675 Balance -5115 Current Meds Ordered / Administered: Current meds ordered / Administered 3 Generic Name Dose Route Start Last Admin Trade Name Freq PRN Reason Stop Dose Admin Acetaminophen 650 mg 12/23/24 20:30 Acetaminophen 325 Mg Tablet PO Q6H PRN PRN Pain 1-10 Or Fever>100.7 Albuterol/Ipratropium 3 ml 12/24/24 09:00 12/25/24 11:11 Ipratropium/Albuterol Sulfate 3 Ml Ampul.Neb INHALATION 3 ml Q4H.RT MARIAMA Administration Atorvastatin Calcium 80 mg 12/23/24 22:00 12/24/24 21:20 Atorvastatin Calcium 80 Mg Tablet PO 80 mg QHS MARIAMA Administration Calamine/Phenol 1 applic 12/23/24 22:00 12/25/24 09:04 Menthol/Lanolin/Calamine/Znox 113 Gm Tube TOPICAL 1 applic BID MARIAMA Administration Protocol Enoxaparin Sodium 40 mg 12/24/24 10:00 12/25/24 09:19 Enoxaparin 40 Mg/0.4 Ml Syringe SC 40 mg BID MARIAMA Administration Finasteride 5 mg 12/24/24 10:00 12/24/24 08:58 Finasteride 5 Mg Tablet PO Not Given DAILY MARIAMA Furosemide 40 mg 12/26/24 10:00 Furosemide 40 Mg/4 Ml Vial IV DAILY MARIAMA Protocol Glucagon 1 mg 12/23/24 20:30 Glucagon 1 Mg/Ml Syringe IM X1 PRN Hypoglycemia Protocol Dextrose 250 mls @ 0 mls/hr 12/23/24 20:30 Dextrose 10%-Water IV .Q0M PRN HYPOGLYCEMIA Protocol As Directed Sodium Chloride 250 mls @ 15 mls/hr 12/23/24 20:33 IV .[id number] PRN Saline Flush Sodium Chloride 250 mls @ 15 mls/hr 12/23/24 20:33 IV .[id number] PRN Additional IVPB Infusion Piperacillin Sod/Tazobactam 50 mls @ 12.5 mls/hr 12/24/24 10:00 12/25/24 05:12 Sod 3.375 gm/ Sodium Chloride IV 12.5 mls/hr Q8 MARIAMA Administration Dextrose 250 mls @ 0 mls/hr 12/25/24 10:19 Dextrose 10%-Water IV .Q0M PRN HYPOGLYCEMIA Protocol As Directed Insulin Glargine 10 unit 12/25/24 11:30 Insulin Glargine-Yfgn 100 Unit/Ml Pen SC DAILY MARIAMA Protocol Insulin Human Lispro 0 unit 12/23/24 22:00 12/25/24 09:00 Insulin Lispro 100 Unit/Ml Insuln.Pen SC 2 u ACHS MARIAMA Administration Protocol Levothyroxine Sodium 200 mcg 12/24/24 06:00 12/25/24 05:12 Levothyroxine 100 Mcg Tablet PO 200 mcg DAILY@0600 MARIAMA Administration Levothyroxine Sodium 75 mcg 12/24/24 06:00 12/25/24 05:12 Levothyroxine 75 Mcg Tablet PO 75 mcg DAILY@0600 MARIAMA Administration Lisinopril 2.5 mg 12/24/24 10:00 12/25/24 09:08 Lisinopril 2.5 Mg Tablet PO Not Given DAILY MARIAMA Protocol Melatonin 10 mg 12/23/24 22:00 12/24/24 21:34 Melatonin 10 Mg Tablet PO 10 mg QHS MARIAMA Administration Methylprednisolone Sodium Succinate 40 mg 12/24/24 08:55 12/25/24 05:12 Methylprednisolone Sod Succ 40 Mg/Ml Vial IV 40 mg Q8 MARIAMA Administration Metoprolol Tartrate 25 mg 12/23/24 22:00 12/25/24 09:05 Metoprolol Tartrate 25 Mg Tablet PO 25 mg BID MARIAMA Administration Protocol Midodrine 10 mg 12/24/24 08:00 12/25/24 09:03 Midodrine Hcl 5 Mg Tablet PO 10 mg TIDCM MARIAMA Administration Montelukast Sodium 10 mg 12/23/24 20:30 Montelukast 10 Mg Tablet PO QHS PRN ALLERGIES Nystatin 1 applic 12/23/24 22:00 12/25/24 09:06 Nystatin Powder 15gm Bottle TOPICAL 1 applic BID [facility] Administration Protocol Ondansetron HCl 4 mg 12/23/24 20:30 Ondansetron 4 Mg/2 Ml Vial IV Q8H PRN PRN NAUSEA/VOMITING Pantoprazole Sodium 20 mg 12/24/24 10:00 12/25/24 09:07 Pantoprazole Sodium 20 Mg Tablet PO 20 mg DAILY MARIAMA Administration Polyethylene Glycol 17 gm 12/23/24 20:49 Polyethylene Glycol 3350 17 Gm Packet PO DAILY PRN constipation Potassium Chloride 20 meq 12/24/24 08:00 12/25/24 09:20 Potassium Chloride Oral Tablet 20 Meq PO 20 meq DAILYCM MARIAMA Administration Senna/Docusate Sodium 2 tablet 12/24/24 09:51 Senna/Docusate Sodium 1 Tablet PO BID PRN PRN Constipation Sodium Chloride 10 - 40 ml 12/23/24 20:33 12/25/24 09:20 0.9% Saline Lock 10 Ml Syringe IV 20 ml UD PRN Administration SALINE FLUSH Sotalol HCl 120 mg 12/23/24 22:00 12/25/24 09:04 Sotalol Hydrochloride 80 Mg Tablet PO 120 mg BID MARIAMA Administration Tamsulosin HCl 0.4 mg 12/23/24 22:00 12/24/24 21:20 Tamsulosin Hcl 0.4 Mg Capsule PO 0.4 mg QHS MARIAMA Administration Physical Exam Narrative G- A&O x 3, NAD ENT- sclera anicteric, moist mm, neck obscured by frances CV-rrr no mrg, nl s1 s2 L- occ wheeze, overall fair air movement and no use of accessory muscles Ab- s nt nd nl bs Ext- wound care dressing in place Neuro- no focal deficits Psych- nl mood/affect Lab / Micro Data Attestation: I reviewed the patient's lab results. 12/25/24 05:24 12/25/24 05:24 Labs: Laboratory Results - last 24 hr 12/24/24 05:32: Magnesium 2.1, Total Bilirubin 0.51, Direct Bilirubin 0.26, AST 32, ALT 19, Alkaline Phosphatase 225 H, Total Protein 7.1, Albumin 3.3 L, Globulin 3.8 12/24/24 16:40: POC Glucose 119 H 12/24/24 21:26: POC Glucose 257 H 12/25/24 05:24: WBC 12.0 H, RBC 4.13 L, Hgb 8.4 L, Hct 30.6 L, MCV 74.1 L D, MCH20.3 L, MCHC 27.5 L D, RDW Std Deviation 54.2 H, RDW Coeff of Jovany 20.3 H, Plt Count 187, MPV 9.4, Immature Gran % (Auto) 0.600, Neut % (Auto) 90.4 H, Lymph % (Auto) 6.2 L, [place] % (Auto) 2.7, Eos % (Auto) 0.0, Baso % (Auto) 0.1, Absolute Neuts (auto) 10.9 H, Absolute Lymphs (auto) 0.74 L, Nucleated RBC % 0, Differential Comment SCANNED, Anisocytosis 1+, Microcytosis 1+, Sodium 133, Potassium 4.5, Chloride 91 L, Carbon Dioxide 31.8, Anion Gap 10, BUN 18, Creatinine 0.79, Estim Creat Clear Calc 151.66, Est GFR (MDRD) Non-Af 103, BUN/Creatinine Ratio 22.9 H, Glucose 170 H, Calcium 8.4 12/25/24 08:52: POC Glucose 156 H 12/25/24 11:14: POC Glucose 209 H Micro: Microbiology 12/24/24 09:35 Urine Catheter - Lezama Urine Culture - Preliminary Culture exhibits no growth. Assessment and Plan . Assessment and plan: Assessment: Acute Exacerbation of COPD Acute Hypercapnic and Hypoxemic Respiratory Failure HFpEF Mild Protein Calorie Malnutrition Leukocytosis Sleep Disordered Breathing Cardiogenic Pulmonary Edema Volume Overload Chronic Wound Infection of Lower Extremity -excellent response to measures taken overnight -cont diuresis as tolerated; he may have mobilized some previously third spaced fluid contributing to dyspna -cont wound care -transition to pred taper -Bipap reccommendations: Start IPAP 12-15 cm H20, EPAP 4-5 cm H20; O2 as needed to keep SaO2 90-94% Titrate IPAP as tolerated for effect/comfort -[facility] generally will approve non-invasive ventilation for COPD patients with hypercapnia provided there is an ABG on prescribed amount of O2 which demonstrates a pCO2 > 45 mm Hg. Rec getting an ABG prior to discharge (provided he is compensated) and referringto case management for arranging the DME logistics. If his CO2 does not meet requirements he will need an outpt polysomnogram The entirety of this encounter was done via Telemedicine 12/25/24 3937 <Electronically signed by Ernesto Wilder MD> Cosigner Signature (if applicable): CC: MANUFACTURING MAINTENANCE MECHANIC-C Morgan Barajas; Dr. Alex Mccray, DO~ Signed [facility] Work Phone: [phone] Progress note Author Marcellus Gunn [facility] Note Date/Time December 25, 2024 10:23 am [facility] Medical Records Department [address] [place] [address] Progress Note - Hospitalist 12/25/24 0716 MR#: [id number] Acct: [id number] Name: DERRELL HOYT Rep #:[id number] : 1965 59 From: Marcellus Cochran PCP: UNRULY Tamez Status: ADM IN Location: ICU ICU04-1 Reason for Visit Reason for Visit: Diagnoses Hypoxemia (12/23/24) Objective Data Objective Data Vital Signs: Vital Signs Temp Pulse Resp BP Pulse Ox O2 Del Method O2 Flow Rate 98.5 F 74 17 107/62 94 Nasal Cannula 2 12/25/24 04:00 12/25/24 06:00 12/25/24 06:00 12/25/24 06:00 12/25/24 06:00 12/25/24 06:00 12/25/24 06:00 FiO2 40 12/25/24 04:00 Oxygen Flow Rate (L/min) 2 Oxygen Delivery Method Nasal Cannula Weight: 322 lb 12.108 oz Body Mass Index (BMI) 42.5 Intake & Output: Intake and Output for Last 24 Hours 12/23/24 12/24/24 12/25/24 23:59 23:59 23:59 Intake Total 1650 / 1650 50 / 50 Output Total 5475 / 5475 350 / 350 Balance -3825 / -3825 -300 / -300 Lab / Micro Data 12/25/24 05:24 12/25/24 05:24 Labs: Laboratory Results - last 24 hr 12/24/24 05:32: Differential Comment , Magnesium 2.1, Total Bilirubin 0.51, Direct Bilirubin 0.26, AST 32, ALT 19, Alkaline Phosphatase 225 H, Total Protein7.1, Albumin 3.3 L, Globulin 3.8 12/24/24 09:35: Urine Color Yellow, Urine Clarity Clear, Urine pH 6.0, Ur Specific Barnum 1.025, Urine Protein 100 H, Urine Glucose (UA) Normal, Urine Ketones Negative, Urine Occult Blood Negative, Urine Nitrite Negative, Urine Bilirubin Negative, Urine Urobilinogen 1 H, Ur Leukocyte Esterase Negative, Urine RBC 0 SEEN, Urine WBC 0-5 SEEN, Ur Squamous Epith Cells 0 SEEN, Urine Bacteria 0 SEEN, Hyaline Casts 5-10 SEEN, Urine Mucus 0 SEEN 12/24/24 11:13: POC Glucose 87 12/24/24 16:40: POC Glucose 119 H 12/24/24 21:26: POC Glucose 257 H 12/25/24 05:24: WBC 12.0 H, RBC 4.13 L, Hgb 8.4 L, Hct 30.6 L, MCV 74.1 L D, MCH20.3 L, MCHC 27.5 L D, RDW Std Deviation 54.2 H, RDW Coeff of Jovany 20.3 H, Plt Count 187, MPV 9.4, Immature Gran % (Auto) 0.600, Neut % (Auto) 90.4 H, Lymph % (Auto) 6.2 L, [place]ier % (Auto) 2.7, Eos % (Auto) 0.0, Baso % (Auto) 0.1, Absolute Neuts (auto) 10.9 H, Absolute Lymphs (auto) 0.74 L, Nucleated RBC % 0, Differential Comment SCANNED, Anisocytosis 1+, Microcytosis 1+, Sodium 133, Potassium 4.5, Chloride 91 L, Carbon Dioxide 31.8, Anion Gap 10, BUN 18, Creatinine 0.79, Estim Creat Clear Calc 151.66, Est GFR (MDRD) Non-Af 103, BUN/Creatinine Ratio 22.9 H, Glucose 170 H, Calcium 8.4 ABG Data ABG results: ABG 12/24/24 12/24/24 09:19 10:49 Specimen Type ART ART Sample Site R Radial L Radial pH 7.20 L 7.40 Bicarbonate Actual 39.5 H 40.8 H Total CO2 43 43 Base Excess 11 H 16 H O2 Saturation 66 L 98 O2 % 3.0 40.0 ABG pCO2 102.2 H* 65.7 H ABG pO2 45 L 103 H Khloe Test Positive Positive O2 Delivery Device Cannula BiPAP Vent Mode Not entered Not entered POC PEEP 10 Crit Call To/Read Back Yes Blood Gas Notified Whom mary Blood Gas Notified Time 09:21:14 Radiography Diagnostic Testing: Radiology Impression Chest X-Ray 12/24/24 09:10 IMPRESSION: Mild pulmonary edema. Left lower lobe opacity may reflect pneumonia, atelectasis, and/or aspiration. Overall, lung findings are not grossly changed. Reading Location: [facility] Physical Exam Narrative Seen and examined in the ICU. Patient did well after BiPAP in ICU since afternoon. On baseline 2 L of oxygen. No chest pain shortness of breath. Discussed with the bsw. Patient had 5.5 L of urine output after Lezama catheterization. Physical exam General: Alert, Oriented x3, Cooperative HEENT: Atraumatic, PERRLA, EOMI, Normocephalic. Oral: No Gingival or Mucosal Lesions/ Ulcerations Neck: Supple, No JVD, Negative Carotid Bruits Chest wall/Lungs: Air entry diminished in bilateral lungs. Lungs fine crypts but almost clear. On BiPAP Cardiovascular: Regular rate and rhythm, Normal S1,S2, No M/G/R Abdomen: Bowel Sounds sluggish, Soft, Non Tender, abdominal fat/swelling : No dysuria. No renal angle tenderness. No suprapubic tenderness. Extremities: Bilateral 2+ edema, ambulatory. Capillary Refill Less than 3 Seconds Skin: NBilateral venous congestion suggestive of venous hypertension/stasis, dressing. Musculoskeletal: No Tenderness to Palpation of Joints or Extremities Neurological: Cranial nerves II-XII grossly intact, DTR 2+/4. No acute focal neurological deficit. Psych/Mental Status: Normal Affect, Appropriate. Assessment & Plan Assessment/Plan (1) Hypoxia: PLAN: Plan Patient is a 59-year-old male who presented to [facility] ED on 12/23/2024 with worsening shortness of breath predominantly with any amount of exertion for 1 month. No cough, chest pain, fever or chills. No sore throat orrhinorrhea. 1. Acute hypoxic and hypercarbic respiratory with CO2 narcosis due to COPD exacerbation, SHAHANA/OHS due to morbid obesity and acute encephalopathy due to metabolic encephalopathy. [facility] Patient had hypoxia with exertion, pulse ox 85% in ED and required 2-3 L on baseline. CPAP was prescribed but patient probably did not wear it. Chest x-ray on admission was clear. 12/24: The morning patient was very lethargic sleepy and hypopneic. Minimally responsive. ABG was done. Patient was immediately moved to ICU. ABG 7.20/102.2/45 on 2 L of oxygen, total CO2 43. Baseline CO2 around 30-32, today 34.5. Patient immediately ordered BiPAP and transferred to ICU for further care. Clinical Study Manager consulted Later on about 10 to 11 AM, I went to see the patient and he was waking up on the BiPAP. He responds that he can breathe on BiPAP. Repeat ABG shows 7.40/65.7/103 on BiPAP PEEP 10. Therefore patient does not need intubation. Discussed with Dr. Ovalles bsw about ABG and acute on chronic combined respiratory failure with [id number]. Patient is improving. Regular bsw consult for tomorrow. 12/25: Patient diuresed well 5.5 L. Furosemide changed to 40 mg IV daily. Discussed with the bsw regarding probability of obesity hypoventilation and need for BiPAP during naps and at night with titration. The patient will need to go home on a BiPAP. The patient is being managed on scheduled bronchodilator, IV Solu-Medrol, Mucinex, incentive spirometry and Pep. Urine culture negative. Acute encephalopathy resolved. 2. Acute on chronic HFpEF with recent admission from 12/15-6/28 for left lower extremity venous edema/lymphedema complicated with mild cellulitis : During last admission patient was discharged on furosemide 40 mg twice daily, metoprolol 25 mg twice daily, lisinopril 2.5 mg daily and atorvastatin 80 mg daily. Advised to continue the same. Echo 12/16/2024 suggestive of chronic HFpEF Mild concentric left ventricular hypertrophy. The LV ejection fraction is 65 %. Stage 1 diastolic dysfunction. There is mild biatrial dilatation. The study was technically difficult. First x-ray shows chronic interstitial changes, stable compressive atelectasis of the left lung base and stable elevation of left diaphragm.. Repeat chest x-ray in the morning shows worsening of vascular congestion/pulmonary edema mainlyin hilar area. Patient got Lasix 40 mg IV before x-ray was done. Continue Lasix 40 IV twice daily. Heart failure core measures including intake and output, fluid restriction less than 1500 mL, daily weight monitoring, kidney and electrolytes monitoring. 12/25: Continue off treatment except furosemide changed to 40 mg IV daily. Patient was also feeling thirsty and mildly hydrated. Advised oral fluid intake. Chronic medical conditions: ? History of CAD with stenting,, history of NSVT, hypertension, hyperlipidemia: Normotensive and in normal sinus rhythm on admit. Continue home statin, Lasix, lisinopril, Lopressor, and sotalol. Notably has had issues with orthostatic hypotension, continue home midodrine. ? Type 2 diabetes mellitus with recent episodes of hypoglycemia: Recent A1c 5.3%. Had low glucose values down to the 40s during previous hospitalization. Hold long- acting insulin and other home oral medications. Will treat with sliding scale insulin with meals while inpatient, adjust as needed. 12/25: Glucose varies between 156?250. Scheduled Lantus 10 units started. ? Hypothyroidism: Continue home Synthroid. ? BPH with obstructive disease: Continue home Flomax and finasteride. ? GERD: Continue home PPI. ? Chronic iron deficiency anemia: Hemoglobin 9.1 on admit, at baseline. ? Former tobacco use: Encouraged continued cessation. DVT prophylaxis: Lovenox twice daily CODE STATUS: Full code, verified Charges/Coding Addendum Addendum: Total time of the visit including total time spent in counseling or coordinationof care, (more than 50% of the total time, spent in obtaining medical information from nurses and other ancillary care providers ,explaining to the patient about labs, imaging, diagnosis and management of active complex medical conditions), management of CO2 narcosis/BiPAP, discussion with bsw, review of labs and imaging is 35 minutes. Visit Charges Inpatient E&M: 16314 Subs Hosp L3 12/25/24 1023 <Electronically signed by Marcellus Gunn MD> Cosigner Signature (if applicable): CC: ~ Signed [facility] Work Phone: 1(767) 217-679107-04-2025 Progress note Author Marcellus Gunn [facility] Note Date/Time December 24, 2024 11:27 am [facility] Medical Records Department [address] [place] [address] Progress Note - Hospitalist 12/24/24 0738 MR#: [id number] Acct: [id number] Name: DERRELL HOYT Rep #:[id number] : 1965 59 From: Marcellus Cochran PCP: Morgan Barajas, MANUFACTURING MAINTENANCE MECHANIC-C Status: ADM IN Location: ICU ICU-1 Reason for Visit Reason for Visit: Diagnoses Hypoxemia (12/23/24) Objective Data Objective Data Vital Signs: Vital Signs Temp Pulse Resp BP Pulse Ox O2 Del Method O2 Flow Rate 98 F 81 16 102/51 L 96 Nasal Cannula 3 12/24/24 05:30 12/24/24 05:30 12/24/24 05:30 12/24/24 05:30 12/24/24 05:30 12/24/24 05:30 12/24/24 05:30 Oxygen Flow Rate (L/min) 3 Oxygen Delivery Method Nasal Cannula Weight: 327 lb 6.183 oz Body Mass Index (BMI) 43.2 Intake & Output: Intake and Output for Last 24 Hours 12/22/24 12/23/24 12/24/24 23:59 23:59 23:59 Intake Total 0 / 0 Balance 0 / 0 Lab / Micro Data 12/24/24 05:32 12/24/24 05:32 Labs: Laboratory Results - last 24 hr 12/23/24 13:10: WBC 10.5, RBC 4.50 L, Hgb 9.1 L, Hct 33.5 L, MCV 74.4 L, MCH 20.2 L, MCHC 27.2 L, RDW Std Deviation 55.2 H, RDW Coeff of Jovany 21.3 H, Plt Count 164, MPV 10.1, Immature Gran % (Auto) 0.400, Neut % (Auto) 77.2 H, Lymph %(Auto) 13.4 L, [place] % (Auto) 7.7, Eos % (Auto) 0.9, Baso % (Auto) 0.4, Absolute Neuts (auto) 8.1 H, Absolute Lymphs (auto) 1.41, Nucleated RBC % 0, DifferentialComment SCANNED, Platelet Estimate ADEQUATE, Polychromasia 1+, Anisocytosis 2+, Sodium 134, Potassium 5.1, Chloride 94 L, Carbon Dioxide 30.1, Anion Gap 10, BUN 17, Creatinine 0.82, Estim Creat Clear Calc 148.25, Est GFR (MDRD) Non-Af 101, BUN/Creatinine Ratio 20.9 H, Glucose 76, Calcium 8.5, Troponin T High Sens 24 H D, NT pro BNP II 318 12/23/24 13:37: Lactic Acid 2.0 12/23/24 15:01: Troponin T Hi Sens 2 Hr 22 12/23/24 15:17: Urine Color Straw, Urine Clarity Sl. Cloudy, Urine pH 6.5, Ur Specific Barnum 1.010, Urine Protein 15 H, Urine Glucose (UA) Normal, Urine Ketones Negative, Urine Occult Blood Negative, Urine Nitrite Negative, Urine Bilirubin Negative, Urine Urobilinogen Normal, Ur Leukocyte Esterase 25 H 12/23/24 17:53: Lactic Acid < 1.0, Troponin T Hi Sens 4Hr 22 12/23/24 21:31: POC Glucose 78 12/24/24 05:32: WBC 10.4, RBC 4.19 L, Hgb 8.4 L, Hct 33.0 L, MCV 78.8 L D, MCH 20.0 L, MCHC 25.5 L D, RDW Std Deviation 58.7 H, RDW Coeff of Jovany 21.0 H, Plt Count 215, MPV 9.4, Differential Comment , Sodium 137, Potassium 4.7, Chloride 96 L, Carbon Dioxide 34.5 H, Anion Gap 7, BUN 17, Creatinine 0.94, Estim Creat Clear Calc 128.47, Est GFR (MDRD) Non-Af 94, BUN/Creatinine Ratio 17.9, Glucose 97, Calcium 8.3 12/24/24 06:35: POC Glucose 93 Radiography Diagnostic Testing: Radiology Impression Chest X-Ray 12/23/24 13:50 IMPRESSION: No interval change Reading Location: [facility] Physical Exam Narrative Called in the morning that patient is very drowsy and lethargic, not waking up. Went to see the patient immediately. BP 90/41, afebrile heart rate 83, RR normal on 2 L of oxygen but patient very lethargic, transient opening of right but nonverbal. ABG ordered stat. I again saw the patient in ICU about 10 AM and 11 AM. Physical exam General: Alert, Oriented x3, Cooperative HEENT: Atraumatic, PERRLA, EOMI, Normocephalic. Oral: No Gingival or Mucosal Lesions/ Ulcerations Neck: Supple, No JVD, Negative Carotid Bruits Chest wall/Lungs: Air entry diminished in bilateral lungs. Bibasilar lower lobe crypts/rhonchi, put on BiPAP Cardiovascular: Regular rate and rhythm, Normal S1,S2, No M/G/R Abdomen: Bowel Sounds sluggish, Soft, Non Tender, abdominal fat/swelling : No dysuria. No renal angle tenderness. No suprapubic tenderness. Extremities: Bilateral 2+ edema, Capillary Refill Less than 3 Seconds Skin: NBilateral venous congestion suggestive of venous hypertension/stasis, dressing. Musculoskeletal: No Tenderness to Palpation of Joints or Extremities Neurological: Cranial nerves II-XII grossly intact, DTR 2+/4. No acute focal neurological deficit. Psych/Mental Status: Normal Affect, Appropriate. Assessment & Plan Assessment/Plan (1) Hypoxia: PLAN: Plan Patient is a 59-year-old male who presented to [facility] ED on 12/23/2024 with worsening shortness of breath predominantly with any amount of exertion for 1 month. No cough, chest pain, fever or chills. No sore throat orrhinorrhea. 1. Acute hypoxia on exertion in setting of COPD/asthma with allergic rhinitis, class III obesity with SHAHANA and suspected obesity hypoventilation syndrome ? Admit under inpatient status to [facility]. Patient with hypoxia on exertion down to 85% in the ED. Notably was hypoxic requiring 2 L on recent admission but was weaned off oxygen by discharge. Suspect patient has hypoxia at baselinedue to factors as noted above. Chest x-ray on admit clear. Breath sounds diminished but no wheezing or crackles noted, low concern for COPD exacerbation. Continue home inhalers. Continue home CPAP at night. Will order home O2 testing for tomorrow morning in case patient is able to be discharged home tomorrow. Acute hypoxic and hypercarbic respiratory with CO2 narcosis/acute encephalopathydue to metabolic encephalopathy ABG 7.20/102.2/45 on 2 L of oxygen, total CO2 43. Baseline CO2 around 30-32, today 34.5. Patient immediately ordered BiPAP and transferred to ICU for further care. Clinical Study Manager consulted Later on about 10 to 11 AM, I went to see the patient and he was waking up on the BiPAP. He responds that he can breathe on BiPAP. Repeat ABG shows 7.40/65.7/103 on BiPAP PEEP 10. Therefore patient does not need intubation. Discussed with Dr. Ovalles bsw about ABG and acute on chronic combined respiratory failure with [id number]. Patient is improving. Regular bsw consult for tomorrow. 2. Acute on chronic HFpEF with recent admission from 12/15-12/18 for left lower extremity venous edema/lymphedema complicated with mild cellulitis : During last admission patient was discharged on furosemide 40 mg twice daily, metoprolol 25 mg twice daily, lisinopril 2.5 mg daily and atorvastatin 80 mg daily. Advised to continue the same. Echo 12/16/2024 suggestive of chronic HFpEF Mild concentric left ventricular hypertrophy. The LV ejection fraction is 65 %. Stage 1 diastolic dysfunction. There is mild biatrial dilatation. The study was technically difficult. First x-ray shows chronic interstitial changes, stable compressive atelectasis of the left lung base and stable elevation of left diaphragm.. Repeat chest x-ray in the morning shows worsening of vascular congestion/pulmonary edema mainlyin hilar area. Patient got Lasix 40 mg IV before x-ray was done. Continue Lasix 40 IV twice daily. Heart failure core measures including intake and output, fluid restriction less than 1500 mL, daily weight monitoring, kidney and electrolytes monitoring. Chronic medical conditions: ? History of CAD with stenting,, history of NSVT, hypertension, hyperlipidemia: Normotensive and in normal sinus rhythm on admit. Continue home statin, Lasix, lisinopril, Lopressor, and sotalol. Notably has had issues with orthostatic hypotension, continue home midodrine. ? Type 2 diabetes mellitus with recent episodes of hypoglycemia: Recent A1c 5.3%. Had low glucose values down to the 40s during previous hospitalization. Hold long- acting insulin and other home oral medications. Will treat with sliding scale insulin with meals while inpatient, adjust as needed. ? Hypothyroidism: Continue home Synthroid. ? BPH with obstructive disease: Continue home Flomax and finasteride. ? GERD: Continue home PPI. ? Chronic iron deficiency anemia: Hemoglobin 9.1 on admit, at baseline. ? Former tobacco use: Encouraged continued cessation. DVT prophylaxis: Lovenox twice daily CODE STATUS: Full code, verified Charges/Coding Addendum Addendum: Total time of the visit including total time spent in counseling or coordinationof care, (more than 50% of the total time, spent in obtaining medical information from nurses and other ancillary care providers ,explaining to the patient about labs, imaging, diagnosis and management of active complex medical conditions), management of CO2 narcosis, intensive management, acute on chronic combined respiratory failure, review of labs and imaging is 60 minutes. Procedures Hospitalists Procedures: 16270 Critical Care 1st Hr 12/24/24 1127 <Electronically signed by Marcellus Gunn MD> Cosigner Signature (if applicable): CC: ~ Signed [facility] Work Phone: 1([phone]) 535-957007-04-2025 Radiology Diagnostic study [facility]07-04-2025 Discharge summary Author Alex Mccray [facility] Note Date/Time December 24, 2024 7:22a m [facility] Medical Records Department [address] [place] [address] Emergency Department Summary 12/23/24 MR#: [id number] Acct: [id number] Name: DERRELL HOYT Rep #:[id number] : 1965 59 From: Alex Escobar PCP: CHRISTIANO TamezC Status: ADM IN Location: [facility] [place] KD683-7 HPI <Dr. Alex Mccray, DO - Last Filed: 12/23/24 17:03> History of Present Illness Chief Complaint: Shortness of Breath Informant: patient Onset/Context/Timing Onset: Month(s) (1) Context: gradual Timing: Continuous Quality: Positive for Dyspnea on exertion and Orthopnea Worsened by: Exertion and Lying flat Relieved by: Rest Narrative Narrative: Patient presents with shortness of breath that has been getting worse over the past month. Patient states his breathing is worse with any exertion. Patient states it is worse after he sleeps. Patient states it is better with rest. Patient denies any cough. Patient denies any chest pain. Patient denies any fevers or chills. Patient denies any sore throat or rhinorrhea. Patient deniesany recent travel or recent surgery. Patient denies any history of blood clots or cancer. PE Risk Factors: Negative for Cancer, OCP + Smoking + > 35, Prior DVT or PE, Recent immobilization, Recent surgery or Recent travel [facility] <Dr. Alex Mccray, DO - Last Filed: 12/23/24 17:03> [facility] Medical History (Reviewed 12/22/24 @ 12:01 by Claudia Urena MANUFACTURING MAINTENANCE MECHANIC, MANUFACTURING MAINTENANCE MECHANIC-C) Redness of skin Thyroid disease Insulin dependent [...] encounter Tumor Atherosclerosis of coronary artery of [place] heart without angina pectoris Kidney stones COPD [...] 10 mg tablet 10 mg PO QHS PRN ALLERGIES 0 01/10/22 12/29/23 History (Singulair) guaifenesin 600 mg tablet, 600 mg PO Q12H PRN CONGESTI ON 02/04/22 11/18/23 History extended release 12 hr (Mucinex) fluticasone propionate 115 2 puff inhalation BID COPD 07/31/22 12/30/23 History mcg-salmeterol 21 mcg/actuation HFA inhaler (Advair HFA) blood sugar diagnostic 11/25/22 Unknown History atorvastatin 80 mg tablet 80 mg PO QHS CHOLESTEROL 12/29/23 History metoprolol tartrate 25 mg tablet 25 mg [...] 11/11/24 Unknown History sennosides 8.6 mg tablet (Greer-danyel) 17.2 mg PO QDAY Unknown History trazodone 50 mg tablet 100 mg PO QHS SLEEP 11/11/24 Unknown History bisacodyl 10 mg rectal suppository 10 mg AR ONCE PRN c onstipation 11/19/24 Unknown History furosemide 40 mg tablet 40 mg PO BID EDEMA 11/19/24 Unknown History venlafaxine 37.5 mg tablet 37.5 mg PO BID 11/19/24 Unk nown History acetaminophen 325 mg capsule 650 mg PO Q6H PRN pain Unknown History ammonium lactate 12 % topical cream 1 applic topical B ID PRN dry skin 11/30/24 Unknown History magnesium hydroxide 400 mg/5 mL 30 ml [...] 120 mg PO BID 5 Unknown History cephalexin 500 mg capsule 500 mg PO TID 2 days #6 caps 12/18/24 Unknown Rx insulin lispro 100 unit/mL See Protocol subcut ACHS #0 mL 12/18/24 Unknown Rx subcutaneous pen (Humalog KwikPen (U-100) Insulin) insulin lispro 100 unit/mL See Protocol subcut ACHS 1 month 12/18/24 Unknown Rx subcutaneous pen (Humalog KwikPen #15 mL (U-100) Insulin) midodrine 10 mg tablet 10 mg PO TIDCM 30 days #90 t abs 12/18/24 Unknown Rx needle (disp) 32 gauge 32 gauge x #100 ea 12/18/24 Unk nown Rx 16 polyethylene glycol 3350 17 17 g PO DAILY Constipation 30 days 12/18/24 10/19/24 Rx gram/dose oral powder (Miralax) #0 grams Allergy/AdvReac Type Severity Reaction Status Date / Time No Known Allergies Allergy Verified 12/22/24 10:52 Family History Father Heart disease Hypertension Mother Brain aneurysm Surgical History History of cardiac catheterization Hx of colonoscopy History of coronary artery stent placement (01/18/21) History of thyroidectomy Social History household members: other details: Assisted living housing: assisted living facility current occupational status: disabled Smoking Status: Former smoker how long ago did patient quit smokin years ago alcohol intake: never substance use type: does not use caffeine: Yes Type: carbonated beverages ROS <Dr. Alex Mccray, DO - Last Filed: 12/23/24 17:03> ROS ED Constitutional Constitutional ED: Denies chills or fever(s) Eyes Eyes: Denies blurry vision or change in vision ENT ENT ED: Denies rhinorrhea or sore throat Cardiovascular Cardiovascular: Denies chest pain or palpitations Respiratory/Chest Respiratory/Chest: Reports cough and dyspnea Gastrointestinal Gastrointestinal: Reports nausea; Denies vomiting Genitourinary Genitourinary ED: Denies dysuria or hematuria Musculoskeletal Musculoskeletal: Reports back pain; Denies neck pain Integumentary Reports rash; Denies abscess Neurologic Neurologic: Denies headache(s) or weakness Allergic/Immunologic Allergic/Immunologic ED: Denies mouth swelling or urticaria EXAM <Dr. Alex Mccrya, DO - Last Filed: 12/23/24 17:03> Physical Exam Const Vital Signs: 12/23/24 12:53 12/23/24 12:56 12/23/24 13:18 Temperature 99.0 F 99 F Temperature Source Oral Oral Pulse Rate 85 85 Respiratory Rate 16 16 Respiratory Effort Respiratory Depth Respiratory Pattern Blood Pressure 125/59 H 125/59 H Blood Pressure Mean 81 81 Pulse Ox 82 91 91 Oxygen Delivery Method Room Air Nasal Cannula Nasal Cannula Oxygen Flow Rate (L/min) 2 2 12/23/24 14:00 12/23/24 15:00 12/23/24 15:05 Temperature 99 F 99 F Temperature Source Oral Oral Pulse Rate 83 83 Respiratory Rate 16 17 Respiratory Effort Short of Breath Respiratory Depth Respiratory Pattern Normal Blood Pressure 123/68 H 114/61 Blood Pressure Mean 86 78 Pulse Ox 100 100 Oxygen Delivery Method Nasal Cannula Nasal Cannula Oxygen Flow Rate (L/min) 2 2 12/23/24 15:05 12/23/24 15:10 12/23/24 15:52 Temperature 99.1 F Temperature Source Oral Pulse Rate 81 Respiratory Rate 19 H Respiratory Effort Short of Breath Respiratory Depth Normal Respiratory Pattern Normal Blood Pressure 114/61 Blood Pressure Mean 78 Pulse Ox 97 96 Oxygen Delivery Method Room Air Nasal Cannula Nasal Cannula Oxygen Flow Rate (L/min) 1 1 12/23/24 16:00 12/23/24 17:00 12/23/24 18:00 Temperature 99.0 F 99.1 F Temperature Source Oral Oral Pulse Rate 79 80 78 Respiratory Rate 19 H 19 H Respiratory Effort Respiratory Depth Respiratory Pattern Blood Pressure 114/64 114/64 111/58 L Blood Pressure Mean 80 80 75 Pulse Ox 97 99 Oxygen Delivery Method Nasal Cannula Nasal Cannula Oxygen Flow Rate (L/min) 1 1 Positive well nourished and well developed Constitutional Narrative: BMI is 43.7 General Appearance ED: well developed and NAD HEENT Reports moist mucous membranes Neck supple and no JVD Resp normal respiratory effort Auscultation: diminished lung sounds Cardio regular rate and regular rhythm GI non-tender and non-distended Palpation: soft Extremity normal to inspection Extremity Narrative: There is pitting edema of the lower extremities bilaterally. There is some milderythema on the left lower leg. There is no calf tenderness. Neuro oriented x3, CN's II-XII intact bilaterally and no sensory deficits noted Nikolay Coma Scale: document GCS findings Spontaneous Obeys Commands Oriented 15 Sensorium / Orientation: alert Speech: speech normal Sensory Exam: sensory level loss detected Motor Exam: strength 5/5 throughout Psych mental status grossly normal <Dr. Antoine Hahn MD - Last Filed: 12/23/24 18:52> Physical Exam Const Vital Signs: 12/23/24 12:53 12/23/24 12:56 12/23/24 13:18 Temperature 99.0 F 99 F Temperature Source Oral Oral Pulse Rate 85 85 Respiratory Rate 16 16 Respiratory Effort Respiratory Depth Respiratory Pattern Blood Pressure 125/59 H 125/59 H Blood Pressure Mean 81 81 Pulse Ox 82 91 91 Oxygen Delivery Method Room Air Nasal Cannula Nasal Cannula Oxygen Flow Rate (L/min) 2 2 12/23/24 14:00 12/23/24 15:00 12/23/24 15:05 Temperature 99 F 99 F Temperature Source Oral Oral Pulse Rate 83 83 Respiratory Rate 16 17 Respiratory Effort Short of Breath Respiratory Depth Respiratory Pattern Normal Blood Pressure 123/68 H 114/61 Blood Pressure Mean 86 78 Pulse Ox 100 100 Oxygen Delivery Method Nasal Cannula Nasal Cannula Oxygen Flow Rate (L/min) 2 2 12/23/24 15:05 12/23/24 15:10 12/23/24 15:52 Temperature 99.1 F Temperature Source Oral Pulse Rate 81 Respiratory Rate 19 H Respiratory Effort Short of Breath Respiratory Depth Normal Respiratory Pattern Normal Blood Pressure 114/61 Blood Pressure Mean 78 Pulse Ox 97 96 Oxygen Delivery Method Room Air Nasal Cannula Nasal Cannula Oxygen Flow Rate (L/min) 1 1 12/23/24 16:00 12/23/24 17:00 12/23/24 18:00 Temperature 99.0 F 99.1 F Temperature Source Oral Oral Pulse Rate 79 80 78 Respiratory Rate 19 H 19 H Respiratory Effort Respiratory Depth Respiratory Pattern Blood Pressure 114/64 114/64 111/58 L Blood Pressure Mean 80 80 75 Pulse Ox 97 99 Oxygen Delivery Method Nasal Cannula Nasal Cannula Oxygen Flow Rate (L/min) 1 1 Neuro Nikolay Coma Scale: document GCS findings 15 MDM <Dr. Alex Mccray, DO - Last Filed: 12/23/24 17:03> [facility] Narrative Medical decision making narrative: Differential diagnosis includes congestive heart failure, pneumonia, bronchitis,cellulitis, sepsis, cardiac dysrhythmia, cardiac ischemia, and anxiety. EKG will be obtained to assess for cardiac dysrhythmia and cardiac ischemia. Chest x-ray will be obtained to assess for pneumonia, bronchitis, and congestive heartfailure. CBC will be obtained to assess for leukocytosis and anemia. Basic metabolic profile will be obtained to assess for electrolyte abnormality and renal function. Serum lactate will be obtained to assess for sepsis. High-sensitivity troponin will be obtained to assess for cardiac ischemia. BNP will be obtained to assess for congestive heart failure. 2-hour repeat high-sensitivity troponin will be obtained to assess for ongoing cardiac ischemia. Urinalysis will be obtained to assess for urinary tract infection. History & Record Review Additional record(s) reviewed:: Prior outpatient record (Patient had echocardiogram on 12/15/2024 which showed an ejection fraction of 65%.) and Prior[facility]abs Lab Data Attestation: I reviewed the patient's lab results. Lab results narrative: CBC was reviewed. Hemoglobin was slightly low at 9.1 and hematocrit was 33.5. This was improved from previous results. Basic metabolic profile was reviewed and was essentially within normal limits. Serum lactate was reviewed and was normal at 2.0. Initial high-sensitivity troponin was reviewed and was 24. BNP was reviewed and was normal at 318. 2-hour repeat high-sensitivity troponin wasreviewed and was 22 Labs: Laboratory Results - last 24 hr 12/23/24 12/23/24 12/23/24 13:10 13:37 15:01 WBC 10.5 RBC 4.50 L Hgb 9.1 L Hct 33.5 L MCV 74.4 L MCH 20.2 L MCHC 27.2 L RDW Std Deviation 55.2 H RDW Coeff of Jovany 21.3 H Plt Count 164 MPV 10.1 Immature Gran % (Auto) 0.400 Neut % (Auto) 77.2 H Lymph % (Auto) 13.4 L [place] % (Auto) 7.7 Eos % (Auto) 0.9 Baso % (Auto) 0.4 Absolute Neuts (auto) 8.1 H Absolute Lymphs (auto) 1.41 Nucleated RBC % 0 Differential Comment SCANNED Platelet Estimate ADEQUATE Polychromasia 1+ Anisocytosis 2+ Sodium 134 Potassium 5.1 Chloride 94 L Carbon Dioxide 30.1 Anion Gap 10 BUN 17 Creatinine 0.82 Estim Creat Clear Calc 148.25 Est GFR (MDRD) Non-Af 101 BUN/Creatinine Ratio 20.9 H Glucose 76 Lactic Acid 2.0 Calcium 8.5 Troponin T High Sens 24 H D Troponin T Hi Sens 2 Hr 22 Troponin T Hi Sens 4Hr NT pro BNP II 318 Urine Color Urine Clarity Urine pH Ur Specific Barnum Urine Protein Urine Glucose (UA) Urine Ketones Urine Occult Blood Urine Nitrite Urine Bilirubin Urine Urobilinogen Ur Leukocyte Esterase 12/23/24 12/23/24 15:17 17:53 WBC RBC Hgb Hct MCV MCH MCHC RDW Std Deviation RDW Coeff of Jovany Plt Count MPV Immature Gran % (Auto) Neut % (Auto) Lymph % (Auto) [place] % (Auto) Eos % (Auto) Baso % (Auto) Absolute Neuts (auto) Absolute Lymphs (auto) Nucleated RBC % Differential Comment Platelet Estimate Polychromasia Anisocytosis Sodium Potassium Chloride Carbon Dioxide Anion Gap BUN Creatinine Estim Creat Clear Calc Est GFR (MDRD) Non-Af BUN/Creatinine Ratio Glucose Lactic Acid < 1.0 Calcium Troponin T High Sens Troponin T Hi Sens 2 Hr Troponin T Hi Sens 4Hr 22 NT pro BNP II Urine Color Straw Urine Clarity Sl. Cloudy Urine pH 6.5 Ur Specific Barnum 1.010 Urine Protein 15 H Urine Glucose (UA) Normal Urine Ketones Negative Urine Occult Blood Negative Urine Nitrite Negative Urine Bilirubin Negative Urine Urobilinogen Normal Ur Leukocyte Esterase 25 H Radiography Chest X-Ray - ED: 2 View, Read by ED Physician, Read by Radiologist, No Acute Disease, Chronic Changes and Cardiomegaly Diagnostic Testing: Clinical Impression(s) from Imaging Studies Chest X-Ray 12/23/24 13:50 IMPRESSION: No interval change Reading Location: [facility] PA and lateral chest x-ray was obtained. There are 2 views. On my independent interpretation, lung ortiz show chronic changes. There is cardiomegaly noted. Bony thorax is normal. There is no acute process noted. Radiologist also interpreted the x-ray and agrees. EKG Initial EKG: Attestation: I personally reviewed and interpreted this EKG as follows: Interpretation: Sinus Rhythm (80) and No Acute Injury Pattern Comments: EKG was obtained. On my independent interpretation, it showed anormal sinus rhythm with a rate of 80. AR interval, QRS interval, and QTc intervals were all normal. Lagrange was normal. There are no acute ST or T wave changes. Prior EKG tracings: available for review Prior: Unchanged (11/30/2024) Treatment and Re-Evaluation :: Patient was advised of this finding. Patient was advised that he is not in congestive heart failure. Patient will be ambulated here in the emergency department. If the patient is ambulating and maintaining a pulse oximeter above90%, I feel he can be discharged home. Urinalysis is also pending. If there jeff urinary tract infection, the patient will be discharged home with an antibiotic. Care of the patient will be turned over to the oncoming physician pending ambulatory pulse ox and urinalysis results. <Dr. Antoine Hahn MD - Last Filed: 12/23/24 18:52> [facility] MDM Narrative Medical decision making narrative: Differential diagnosis includes congestive heart failure, pneumonia, bronchitis,cellulitis, sepsis, cardiac dysrhythmia, cardiac ischemia, and anxiety. EKG will be obtained to assess for cardiac dysrhythmia and cardiac ischemia. Chest x-ray will be obtained to assess for pneumonia, bronchitis, and congestive heartfailure. CBC will be obtained to assess for leukocytosis and anemia. Basic metabolic profile will be obtained to assess for electrolyte abnormality and renal function. Serum lactate will be obtained to assess for sepsis. High-sensitivity troponin will be obtained to assess for cardiac ischemia. BNP will be obtained to assess for congestive heart failure. 2-hour repeat high-sensitivity troponin will be obtained to assess for ongoing cardiac ischemia. Urinalysis will be obtained to assess for urinary tract infection. Patient turned over to me from Dr. Alex Joel. UA negative. Pulse ox 85% on room air the patient's not on home oxygen. Other labs are basically his baseline and chronic. This could be exacerbation of COPD or combination of COPDand mild CHF. No history of DVT or PE. No chest pain hemoptysis. I spoken to the hospitalist he is coming down evaluate the patient for admission. Repeat exam patient is resting comfortably on oxygen and his pulse ox is above 90%. But he does not have oxygen at home. Lab Data Labs: Laboratory Results - last 24 hr 12/23/24 12/23/24 12/23/24 13:10 13:37 15:01 WBC 10.5 RBC 4.50 L Hgb 9.1 L Hct 33.5 L MCV 74.4 L MCH 20.2 L MCHC 27.2 L RDW Std Deviation 55.2 H RDW Coeff of Jovany 21.3 H Plt Count 164 MPV 10.1 Immature Gran % (Auto) 0.400 Neut % (Auto) 77.2 H Lymph % (Auto) 13.4 L [place] % (Auto) 7.7 Eos % (Auto) 0.9 Baso % (Auto) 0.4 Absolute Neuts (auto) 8.1 H Absolute Lymphs (auto) 1.41 Nucleated RBC % 0 Differential Comment SCANNED Platelet Estimate ADEQUATE Polychromasia 1+ Anisocytosis 2+ Sodium 134 Potassium 5.1 Chloride 94 L Carbon Dioxide 30.1 Anion Gap 10 BUN 17 Creatinine 0.82 Estim Creat Clear Calc 148.25 Est GFR (MDRD) Non-Af 101 BUN/Creatinine Ratio 20.9 H Glucose 76 Lactic Acid 2.0 Calcium 8.5 Troponin T High Sens 24 H D Troponin T Hi Sens 2 Hr 22 Troponin T Hi Sens 4Hr NT pro BNP II 318 Urine Color Urine Clarity Urine pH Ur Specific Barnum Urine Protein Urine Glucose (UA) Urine Ketones Urine Occult Blood Urine Nitrite Urine Bilirubin Urine Urobilinogen Ur Leukocyte Esterase 12/23/24 12/23/24 15:17 17:53 WBC RBC Hgb Hct MCV MCH MCHC RDW Std Deviation RDW Coeff of Jovany Plt Count MPV Immature Gran % (Auto) Neut % (Auto) Lymph % (Auto) [place] % (Auto) Eos % (Auto) Baso % (Auto) Absolute Neuts (auto) Absolute Lymphs (auto) Nucleated RBC % Differential Comment Platelet Estimate Polychromasia Anisocytosis Sodium Potassium Chloride Carbon Dioxide Anion Gap BUN Creatinine Estim Creat Clear Calc Est GFR (MDRD) Non-Af BUN/Creatinine Ratio Glucose Lactic Acid < 1.0 Calcium Troponin T High Sens Troponin T Hi Sens 2 Hr Troponin T Hi Sens 4Hr 22 NT pro BNP II Urine Color Straw Urine Clarity Sl. Cloudy Urine pH 6.5 Ur Specific Barnum 1.010 Urine Protein 15 H Urine Glucose (UA) Normal Urine Ketones Negative Urine Occult Blood Negative Urine Nitrite Negative Urine Bilirubin Negative Urine Urobilinogen Normal Ur Leukocyte Esterase 25 H Radiography Diagnostic Testing: Clinical Impression(s) from Imaging Studies Chest X-Ray 12/23/24 13:50 IMPRESSION: No interval change Reading Location: [facility] Discharge Plan Triage Chief Complaint: Shortness of Breath Other Complaint: Edema ED Provider: Alex Mccray Dx/Rx/DC Orders Clinical Impression: Dyspnea, Edema of both legs Prescriptions: No Action tamsulosin 0.4 mg capsule 0.4 mg PO QHS guaifenesin [Mucinex] 600 mg tablet extended release 12hr 600 mg PO Q12H PRN (Reason: CONGESTION ) montelukast [Singulair] 10 mg tablet 10 mg PO QHS PRN (Reason: ALLERGIES ) fluticasone propion-salmeterol [Advair HFA] 115-21 mcg/actuation HFA aerosol inhaler 2 puff inhalation BID melatonin 10 mg tablet 10 mg PO QHS (DME) blood sugar diagnostic Kit See Rx Instructions .Route Rx Instructions: As directed omeprazole 20 mg capsule,delayed release(DR/EC) 20 mg PO DAILY Ozempic 2 mg/dose (8 mg/3 mL) pen injector 2 mg subcut QWEEK Rx Instructions: FRIDAY bisacodyl 10 mg suppository 10 mg AR ONCE PRN (Reason: constipation) venlafaxine 37.5 mg tablet 37.5 mg PO BID sennosides [Greer-danyel] 8.6 mg tablet 17.2 mg PO QDAY glipizide 5 mg tablet 5 mg PO QDAY finasteride [Proscar] 5 mg tablet 5 mg PO QDAY potassium chloride 20 MEQ tablet 20 meq PO DAILYCM 0RF metformin 1,000 mg tablet 1,000 mg PO BID albuterol sulfate 90 mcg/actuation HFA aerosol inhaler 2 puff INHALATION Q4H PRN (Reason: SHORTNESS OF BREATH/WHEEZING ) trazodone 50 mg tablet 100 mg PO QHS atorvastatin 80 mg tablet [...] skin) AmeriPhor Ointment 1 applic topical DAILY magnesium hydroxide [Dulcolax (magnesium hydroxide)] 400 mg/5 mL suspension 30 ml PO DAILY PRN (Reason: constipation) ondansetron 4 mg tablet,disintegrating 4 mg PO DAILY PRN (Reason: nausea and vomiting) sotalol [Betapace] 120 mg tablet 120 mg PO BID lisinopril 2.5 mg tablet 2.5 mg PO DAILY midodrine 10 mg tablet 10 mg PO TIDCM 30 Days Qty: 90 0RF Rx Instructions: Hold if SBP more than 100 mmHg insulin lispro [Humalog KwikPen Insulin] 100 unit/mL Insulin Pen See Protocol subcut ACHS Qty: 0 0RF Protocol: 4. Sliding Scale Insulin High-Med Dosing Condition: 150-199 mg/dl = 2 units Condition: 200-259 mg/dl = 4 units Condition: 260-324 mg/dl = 6 units Condition: 325-374 mg/dl = 8 units Condition: 375-409 mg/dl = 10 units Condition: 410-449 mg/dl = 11 units Condition: Greater than 449 call physician Protocol Text: Suggested for: - Patients on Total Daily Insulin Dose of 56-80 units - Patient who are known to be insulin resistant or septic HIGH MEDIUM DOSING ALGORITHM cephalexin 500 mg capsule 500 mg PO TID 2 Days Qty: 6 0RF polyethylene glycol 3350 [Miralax] 17 gram/dose powder 17 g PO DAILY 30 Days Qty: 0 0RF insulin lispro [Humalog KwikPen Insulin] 100 unit/mL insulin pen See Protocol subcut ACHS 30 Days Qty: 15 2RF Protocol: 4. Sliding Scale Insulin High-Med Dosing Condition: 150-199 mg/dl = 2 units Condition: 200-259 mg/dl = 4 units Condition: 260-324 mg/dl = 6 units Condition: 325-374 mg/dl = 8 units Condition: 375-409 mg/dl = 10 units Condition: 410-449 mg/dl = 11 units Condition: Greater than 449 call physician Protocol Text: Suggested for: - Patients on Total Daily Insulin Dose of 56-80 units - Patient who are known to be insulin resistant or septic HIGH MEDIUM DOSING ALGORITHM Rx Instructions: Hold if glucose less than 130 mg/dl (DME) needle (disp) 32 gauge 32 gauge x 5/16 needle See Rx Instructions .ROUTE .MEDSUPPLY Qty: 100 2RF Rx Instructions: As directed Primary Care Provider: Morgan Barajas [employer]UFACTURING MAINTENANCE MECHANIC Referrals: oMrgan Barajas MANUFACTURING MAINTENANCE MECHANIC, MANUFACTURING MAINTENANCE MECHANIC-C [Primary Care Provider] - Print Language: Lao What to do if you have Problems For any increased pain, shortness of breath, bleeding, nausea or vomiting, chestpain, or any unexpected problems, contact your Primary Care Provider. Call [facility] ([phone]) or report to the closest Emergency Room. Call 911 if necessary. 12/24/24 07 <Electronically signed by Alex Mccray DO> Cosigner Signature (if applicable): 12/23/24 1852 <Electronically signed by Antoine Hahn MD> CC: MANUFACTURING MAINTENANCE MECHANIC-C Morgan Barajas ~ Signed [facility] Work Phone: [phone] History and physical note Author Garry Gross [facility] Note Date/Time December 23, 2024 7:19p m [facility] Medical Records Department [address] [place] [address] H&P Exam - Hospitalist 12/23/24 1846 MR#: [id number] Acct: [id number] Name: DERRELL HOYT Rep #:[id number] : 1965 59 From: Garry loredo DO PCP: UNRULY Tamez Status: REG ER Location: ED HPI - General General Date of Admission: 12/23/24 Date of Service: 12/23/24 Chief Complaint: Shortness of breath HPI Narrative DERRELL HOYT, is a 59 M who presented to [facility] ED on 12/23/2024with worsening shortness of breath. Patient was recently hospitalized here from12/15- 12/18 for LLE wound with concerning for cellulitis. History significant forCOPD/asthma with allergic rhinitis, HFpEF, CAD with stenting, nonsustained V. tach, hypertension, hyperlipidemia, type 2 diabetes mellitus and class III obesity. During this recent hospitalization he was hypoxic requiring 2 L and this was suspected to be multifactorial due to COPD, HFpEF, SHAHANA and obesity hypoventilation syndrome. However, he was able to be discharged without any supplemental oxygen. On arrival today he reports worsening shortness of breath especially with exertion. Chest x-ray was stable from previous and workup was fairly benign. He did not appear volume overloaded on exam. Breath sounds werediminished bilaterally but no wheezing or crackles noted. However, when he ambulated his oxygen saturation did drop to 85%, so hospitalist was contacted for admission. I saw the patient at bedside in the ED. Patient was somewhat unkempt appearing and mildly fatigued appearing but otherwise sitting up comfortably at the edge of the bed, conversing normally, in no acute distress. He denied any shortness of breath at rest currently. Denies any cough or sputumproduction. Denies any wheezing. Denies any volume overload in his legs. No other acute concerns currently. Will be admitted for further management. [facility] Medical History Redness of skin Thyroid disease [...] encounter Tumor Atherosclerosis of coronary artery of [place] heart without angina pectoris Kidney stones COPD [...] 10 mg tablet 10 mg PO QHS PRN ALLERGIES 0 01/10/22 12/29/23 History (Singulair) guaifenesin 600 mg tablet, 600 mg PO Q12H PRN CONGESTI ON 02/04/22 11/18/23 History extended release 12 hr (Mucinex) fluticasone propionate 115 2 puff inhalation BID COPD 07/31/22 12/30/23 History mcg-salmeterol 21 mcg/actuation HFA inhaler (Advair HFA) blood sugar diagnostic 11/25/22 Unknown History atorvastatin 80 mg tablet 80 mg PO QHS CHOLESTEROL 12/29/23 History metoprolol tartrate 25 mg tablet 25 mg [...] 11/11/24 Unknown History sennosides 8.6 mg tablet (Greer-danyel) 17.2 mg PO QDAY Unknown History trazodone 50 mg tablet 100 mg PO QHS SLEEP 11/11/24 Unknown History bisacodyl 10 mg rectal suppository 10 mg AR ONCE PRN c onstipation 11/19/24 Unknown History furosemide 40 mg tablet 40 mg PO BID EDEMA 11/19/24 Unknown History venlafaxine 37.5 mg tablet 37.5 mg PO BID 11/19/24 Unk nown History acetaminophen 325 mg capsule 650 mg PO Q6H PRN pain Unknown History ammonium lactate 12 % topical cream 1 applic topical B ID PRN dry skin 11/30/24 Unknown History magnesium hydroxide 400 mg/5 mL 30 ml [...] 120 mg PO BID 5 Unknown History cephalexin 500 mg capsule 500 mg PO TID 2 days #6 caps 12/18/24 Unknown Rx insulin lispro 100 unit/mL See Protocol subcut ACHS #0 mL 12/18/24 Unknown Rx subcutaneous pen (Humalog KwikPen (U-100) Insulin) insulin lispro 100 unit/mL See Protocol subcut ACHS 1 month 12/18/24 Unknown Rx subcutaneous pen (Humalog KwikPen #15 mL (U-100) Insulin) midodrine 10 mg tablet 10 mg PO TIDCM 30 days #90 t abs 12/18/24 Unknown Rx needle (disp) 32 gauge 32 gauge x #100 ea 12/18/24 Unk nown Rx 11/05 polyethylene glycol 3350 17 17 g PO DAILY Constipation 30 days 12/18/24 10/19/24 Rx gram/dose oral powder (Miralax) #0 grams Allergy/AdvReac Type Severity Reaction Status Date / Time No Known Allergies Allergy Verified 12/22/24 10:52 Family History (Reviewed 12/22/24 @ 12:01 by Claudia Urena MANUFACTURING MAINTENANCE MECHANIC, MANUFACTURING MAINTENANCE MECHANIC-C) Father Heart disease Hypertension Mother Brain aneurysm Surgical History History of cardiac catheterization Hx [...] Yes Type: carbonated beverages ROS Constitutional Constitutional: Reports fatigue; Denies chills, fever(s) or weakness Eyes Eyes: Denies change in vision Cardiovascular Cardiovascular: Reports dyspnea on exertion; Denies chest pain or edema Respiratory/Chest Respiratory/Chest: Reports shortness of breath with exertion; Denies cough, productive cough, shortness of breath at rest or wheezing Gastrointestinal Gastrointestinal: Denies abdominal pain Musculoskeletal Musculoskeletal: Denies arthralgias or myalgias Neurologic Neurologic: Denies dizziness, focal weakness or headache(s) Vital Signs Vital Signs Vital Signs: 12/23/24 12:53 12/23/24 12:56 12/23/24 13:18 Temperature 99.0 F 99 F Temperature Source Oral Oral Pulse Rate 85 85 Respiratory Rate 16 16 Respiratory Effort Respiratory Depth Respiratory Pattern Blood Pressure 125/59 H 125/59 H Blood Pressure Mean 81 81 Pulse Ox 82 91 91 Oxygen Delivery Method Room Air Nasal Cannula Nasal Cannula Oxygen Flow Rate (L/min) 2 2 12/23/24 14:00 12/23/24 15:00 12/23/24 15:05 Temperature 99 F 99 F Temperature Source Oral Oral Pulse Rate 83 83 Respiratory Rate 16 17 Respiratory Effort Short of Breath Respiratory Depth Respiratory Pattern Normal Blood Pressure 123/68 H 114/61 Blood Pressure Mean 86 78 Pulse Ox 100 100 Oxygen Delivery Method Nasal Cannula Nasal Cannula Oxygen Flow Rate (L/min) 2 2 12/23/24 15:05 12/23/24 15:10 12/23/24 15:52 Temperature 99.1 F Temperature Source Oral Pulse Rate 81 Respiratory Rate 19 H Respiratory Effort Short of Breath Respiratory Depth Normal Respiratory Pattern Normal Blood Pressure 114/61 Blood Pressure Mean 78 Pulse Ox 97 96 Oxygen Delivery Method Room Air Nasal Cannula Nasal Cannula Oxygen Flow Rate (L/min) 1 1 12/23/24 16:00 12/23/24 17:00 12/23/24 18:00 Temperature 99.0 F 99.1 F Temperature Source Oral Oral Pulse Rate 79 80 78 Respiratory Rate 19 H 19 H Respiratory Effort Respiratory Depth Respiratory Pattern Blood Pressure 114/64 114/64 111/58 L Blood Pressure Mean 80 80 75 Pulse Ox 97 99 Oxygen Delivery Method Nasal Cannula Nasal Cannula Oxygen Flow Rate (L/min) 1 1 Weight Weight: 150.3 kg Body Mass Index (BMI) 43.7 Physical Exam Const alert, oriented x3 and no apparent distress Constitutional Narrative: Upper middle-aged male, appears older than stated age, class III obesity, unkempt appearing, mildly fatigued appearing, otherwise sitting up comfortably at the edge of the bed, conversing normally, in no acute distress. General Appearance: cooperative and comfortable HEENT normocephalic, head/scalp atraumatic, hearing grossly normal bilaterally, nasal mucous membranes and turbinates normal and moist oral mucous membranes Eyes PERRL, EOMs intact bilaterally and conjunctivae normal Neck full ROM Chest inspection of chest normal Resp normal respiratory effort and no use of accessory muscles Resp Narrative: Breathing comfortably on 3 L nasal cannula at rest with oxygen saturations in the high 90s. Diminished breath sounds bilaterally throughout but no wheezing or crackles noted. Cardio regular rate, regular rhythm, no murmurs and peripheral pulses 2+ throughout GI normal to inspection, nondistended, normoactive bowel sounds, soft to palpation,non-tender and non-distended Back/Spine normal ROM Extremity normal to inspection, full ROM and no pedal edema Skin no rashes or lesions noted Neuro moves all extremities and no focal motor deficits Psych mental status grossly normal Results Lab / Micro Data 12/23/24 13:10 12/23/24 13:10 Labs: Laboratory Results - last 24 hr 12/23/24 13:10: WBC 10.5, RBC 4.50 L, Hgb 9.1 L, Hct 33.5 L, MCV 74.4 L, MCH 20.2 L, MCHC 27.2 L, RDW Std Deviation 55.2 H, RDW Coeff of Jovany 21.3 H, Plt Count 164, MPV 10.1, Immature Gran % (Auto) 0.400, Neut % (Auto) 77.2 H, Lymph %(Auto) 13.4 L, [place] % (Auto) 7.7, Eos % (Auto) 0.9, Baso % (Auto) 0.4, Absolute Neuts (auto) 8.1 H, Absolute Lymphs (auto) 1.41, Nucleated RBC % 0, DifferentialComment SCANNED, Platelet Estimate ADEQUATE, Polychromasia 1+, Anisocytosis 2+, Sodium 134, Potassium 5.1, Chloride 94 L, Carbon Dioxide 30.1, Anion Gap 10, BUN17, Creatinine 0.82, Estim Creat Clear Calc 148.25, Est GFR (MDRD) Non-Af 101, BUN/Creatinine Ratio 20.9 H, Glucose 76, Calcium 8.5, Troponin T High Sens 24 H D, NT pro BNP II 318 12/23/24 13:37: Lactic Acid 2.0 12/23/24 15:01: Troponin T Hi Sens 2 Hr 22 12/23/24 15:17: Urine Color Straw, Urine Clarity Sl. Cloudy, Urine pH 6.5, Ur Specific Barnum 1.010, Urine Protein 15 H, Urine Glucose (UA) Normal, Urine Ketones Negative, Urine Occult Blood Negative, Urine Nitrite Negative, Urine Bilirubin Negative, Urine Urobilinogen Normal, Ur Leukocyte Esterase 25 H 12/23/24 17:53: Lactic Acid < 1.0, Troponin T Hi Sens 4Hr 22 Imaging Radiology Impression Chest X-Ray 12/23/24 13:50 IMPRESSION: No interval change Reading Location: [id number] Assessment & Plan Assessment/Plan (1) Hypoxia: PLAN: Plan Patient is a 59-year-old male who presented to [facility] ED on 12/23/2024 with worsening shortness of breath. 1. Acute hypoxia on exertion in setting of COPD/asthma with allergic rhinitis, class III obesity with SHAHANA and suspected obesity hypoventilation syndrome ? Admit under inpatient status to [facility]. Patient with hypoxia on exertion down to 85% in the ED. Notably was hypoxic requiring 2 L on recent admission but was weaned off oxygen by discharge. Suspect patient has hypoxia at baselinedue to factors as noted above. Chest x-ray on admit clear. Breath sounds diminished but no wheezing or crackles noted, low concern for COPD exacerbation. Continue home inhalers. Continue home CPAP at night. Will order home O2 testing for tomorrow morning in case patient is able to be discharged home tomorrow. 2. Recent admission for left lower extremity cellulitis in setting of bilaterallower extremity venous stasis ? Hospitalized from 12/15-12/18 for this, see recent discharge summary for furtherdetails. Minimal leg swelling on exam today. Continue management as below. Chronic medical conditions: ? History of CAD with stenting, chronic HFpEF, history of NSVT, hypertension, hyperlipidemia: Normotensive and in normal sinus rhythm on admit. Continue homestatin, Lasix, lisinopril, Lopressor, and sotalol. Notably has had issues with orthostatic hypotension, continue home midodrine. ? Type 2 diabetes mellitus with recent episodes of hypoglycemia: Recent A1c 5.3%. Had low glucose values down to the 40s during previous hospitalization. Hold long- acting insulin and other home oral medications. Will treat with sliding scale insulin with meals while inpatient, adjust as needed. ? Hypothyroidism: Continue home Synthroid. ? BPH with obstructive disease: Continue home Flomax and finasteride. ? GERD: Continue home PPI. ? Chronic iron deficiency anemia: Hemoglobin 9.1 on admit, at baseline. ? Former tobacco use: Encouraged continued cessation. DVT prophylaxis: Lovenox twice daily CODE STATUS: Full code, verified Expected disposition: Home, TBD Total clinical time spent by myself addressing the patient's medical issues, reviewing all the data, and collaborating with patient's care team: 75 minutes. Charges/Coding Visit Charges Inpatient E&M: 60940 Init Hosp L3 12/23/241918 <Electronically signed by Garry Gross DO> Cosigner Signature (if applicable): CC: MANUFACTURING MAINTENANCE MECHANIC-C Morgan Barajas; Dr. Garry Gross DO~ Signed [facility] Work Phone: [phone] 407-985607-03-2025 History and physical note [facility] Medical Records Department [address] [place] [address] H&P Exam - Hospitalist 12/23/24 1846 MR#: [id number] Acct: [id number] Name: DERRELL HOYT Rep #:[id number] : 1965 59 From: Garry loredo DO PCP: UNRULY Tamez Status: REG ER Location: ED HPI - General General Date of Admission: 12/23/24 Date of Service: 12/23/24 Chief Complaint: Shortness of breath HPI Narrative DERRELL HOYT, is a 59 M who presented to [facility] ED on 12/23/2024with worsening shortness of breath. Patient was recently hospitalized here from12/15-12/18 for LLE wound with concerning for cellulitis. History significant forCOPD/asthma with allergic rhinitis, HFpEF, CAD with stenting, nonsustained V. tach, hypertension, hyperlipidemia, type 2 diabetes mellitus and class III obesity.During this recent hospitalization he was hypoxic requiring 2 L and this was suspected to be multifactorial due to COPD, HFpEF, SHAHANA and obesity hypoventilation syndrome. However, he was able to be discharged without any supplemental oxygen. On arrival today he reports worsening shortness of breath especially with exertion. Chest x-ray was stable from previous and workup was fairly benign. He did not appear volume overloaded on exam. Breath sounds werediminished bilaterally but no wheezing or crackles noted. However, when he ambulated his oxygen saturation did drop to 85%, so hospitalist was contacted for admission. I saw the patient at bedside in the ED. Patient was somewhat unkempt appearing and mildly fatigued appearing but otherwise sitting up comfortably at the edge of the bed, conversing normally, in no acute distress. He denied any shortness of breath at rest currently. Denies anycough or sputumproduction. Denies any wheezing. Denies any volume overload in his legs. No other acute concerns currently. Will be admitted for further management. [facility] Medical History Redness of skin Thyroid disease [...] encounter Tumor Atherosclerosis of coronary artery of [place] heart without angina pectoris Kidney stones COPD [...] 10 mg tablet 10 mg PO QHS PRN ALLERGIES 0 01/10/22 12/29/23 History (Singulair) guaifenesin 600 mg tablet, 600 mg PO Q12H PRN CONGESTI ON 02/04/22 11/18/23 History extended release 12 hr (Mucinex) fluticasone propionate 115 2 puff inhalation BID COPD 07/31/22 12/30/23 History mcg-salmeterol 21 mcg/actuation HFA inhaler (Advair HFA) blood sugar diagnostic 11/25/22 Unknown History atorvastatin 80 mg tablet 80 mg PO QHS CHOLESTEROL 12/29/23 History metoprolol tartrate 25 mg tablet 25 mg [...] 11/11/24 Unknown History sennosides 8.6 mg tablet (Greer-danyel) 17.2 mg PO QDAY Unknown History trazodone 50 mg tablet 100 mg PO QHS SLEEP 11/11/24 Unknown History bisacodyl 10 mg rectal suppository 10 mg AR ONCE PRN c onstipation 11/19/24 Unknown History furosemide 40 mg tablet 40 mg PO BID EDEMA 11/19/24 Unknown History venlafaxine 37.5 mg tablet 37.5 mg PO BID 11/19/24 Unk nown History acetaminophen 325 mg capsule 650 mg PO Q6H PRN pain Unknown History ammonium lactate 12 % topical cream 1 applic topical B ID PRN dry skin 11/30/24 Unknown History magnesium hydroxide 400 mg/5 mL 30 ml [...] 120 mg PO BID 5 Unknown History cephalexin 500 mg capsule 500 mg PO TID 2 days #6 caps 12/18/24 Unknown Rx insulin lispro 100 unit/mL See Protocol subcut ACHS #0 mL 12/18/24 Unknown Rx subcutaneous pen (Humalog KwikPen (U-100) Insulin) insulin lispro 100 unit/mL See Protocol subcut ACHS 1 month 12/18/24 Unknown Rx subcutaneous pen (Humalog KwikPen #15 mL (U-100) Insulin) midodrine 10 mg tablet 10 mg PO TIDCM 30 days #90 t abs 12/18/24 Unknown Rx needle (disp) 32 gauge 32 gauge x #100 ea 12/18/24 Unk nown Rx 11/05 polyethylene glycol 3350 17 17 g PO DAILY Constipation 30 days 12/18/24 10/19/24 Rx gram/dose oral powder (Miralax) #0 grams Allergy/AdvReac Type Severity Reaction Status Date / Time No Known Allergies Allergy Verified 12/22/24 10:52 Family History (Reviewed 12/22/24 @ 12:01 by Claudia Urena MANUFACTURING MAINTENANCE MECHANIC, MANUFACTURING MAINTENANCE MECHANIC-C) Father Heart disease Hypertension Mother Brain aneurysm Surgical History History of cardiac catheterization Hx [...] Yes Type: carbonated beverages ROS Constitutional Constitutional: Reports fatigue; Denies chills, fever(s) or weakness Eyes Eyes: Denies change in vision Cardiovascular Cardiovascular: Reports dyspnea on exertion; Denies chest pain or edema Respiratory/Chest Respiratory/Chest: Reports shortness of breath with exertion; Denies cough, productive cough, shortness of breath at rest or wheezing Gastrointestinal Gastrointestinal: Denies abdominal pain Musculoskeletal Musculoskeletal: Denies arthralgias or myalgias Neurologic Neurologic: Denies dizziness, focal weakness or headache(s) Vital Signs Vital Signs Vital Signs: 12/23/24 12:53 12/23/24 12:56 12/23/24 13:18 Temperature 99.0 F 99 F Temperature Source Oral Oral Pulse Rate 85 85 Respiratory Rate 16 16 Respiratory Effort Respiratory Depth Respiratory Pattern Blood Pressure 125/59 H 125/59 H Blood Pressure Mean 81 81 Pulse Ox 82 91 91 Oxygen Delivery Method Room Air Nasal Cannula Nasal Cannula Oxygen Flow Rate (L/min) 2 2 12/23/24 14:00 12/23/24 15:00 12/23/24 15:05 Temperature 99 F 99 F Temperature Source Oral Oral Pulse Rate 83 83 Respiratory Rate 16 17 Respiratory Effort Short of Breath Respiratory Depth Respiratory Pattern Normal Blood Pressure 123/68 H 114/61 Blood Pressure Mean 86 78 Pulse Ox 100 100 Oxygen Delivery Method Nasal Cannula Nasal Cannula Oxygen Flow Rate (L/min) 2 2 12/23/24 15:05 12/23/24 15:10 12/23/24 15:52 Temperature 99.1 F Temperature Source Oral Pulse Rate 81 Respiratory Rate 19 H Respiratory Effort Short of Breath Respiratory Depth Normal Respiratory Pattern Normal Blood Pressure 114/61 Blood Pressure Mean 78 Pulse Ox 97 96 Oxygen Delivery Method Room Air Nasal Cannula Nasal Cannula Oxygen Flow Rate (L/min) 1 1 12/23/24 16:00 12/23/24 17:00 12/23/24 18:00 Temperature 99.0 F 99.1 F Temperature Source Oral Oral Pulse Rate 79 80 78 Respiratory Rate 19 H 19 H Respiratory Effort Respiratory Depth Respiratory Pattern Blood Pressure 114/64 114/64 111/58 L Blood Pressure Mean 80 80 75 Pulse Ox 97 99 Oxygen Delivery Method Nasal Cannula Nasal Cannula Oxygen Flow Rate (L/min) 1 1 Weight Weight: 150.3 kg Body Mass Index (BMI) 43.7 Physical Exam Const alert, oriented x3 and no apparent distress Constitutional Narrative: Upper middle-aged male, appears older than stated age, class III obesity, unkempt appearing, mildlyfatigued appearing, otherwise sitting up comfortably at the edge of the bed, conversing normally, in no acute distress. General Appearance: cooperative and comfortable HEENT normocephalic, head/scalp atraumatic, hearing grossly normal bilaterally, nasal mucous membranes and turbinates normal and moist oral mucous membranes Eyes PERRL, EOMs intact bilaterally and conjunctivae normal Neck full ROM Chest inspection of chest normal Resp normal respiratory effort and no use of accessory muscles Resp Narrative: Breathing comfortably on 3 L nasal cannula at rest with oxygen saturations in the high 90s. Diminished breath sounds bilaterally throughout but no wheezing or crackles noted. Cardio regular rate, regular rhythm, no murmurs and peripheral pulses 2+ throughout GI normal to inspection, nondistended, normoactive bowel sounds, soft to palpation,non-tender and non-distended Back/Spine normal ROM Extremity normal to inspection, full ROM and no pedal edema Skin no rashes or lesions noted Neuro moves all extremities and no focal motor deficits Psych mental status grossly normal Results Lab / Micro Data 12/23/24 13:10 12/23/24 13:10 Labs: Laboratory Results - last 24 hr 12/23/24 13:10: WBC 10.5, RBC 4.50 L, Hgb 9.1 L, Hct 33.5 L, MCV 74.4 L, MCH 20.2 L, MCHC 27.2 L, RDW Std Deviation 55.2 H, RDW Coeff of Jovany 21.3 H, Plt Count 164, MPV 10.1, Immature Gran % (Auto) 0.400, Neut % (Auto) 77.2 H, Lymph %(Auto) 13.4 L, [place] % (Auto) 7.7, Eos % (Auto) 0.9, Baso % (Auto) 0.4, Absolute Neuts (auto) 8.1 H, Absolute Lymphs (auto) 1.41, Nucleated RBC % 0, DifferentialComment SCANNED, Platelet Estimate ADEQUATE, Polychromasia 1+, Anisocytosis 2+, Sodium 134, Potassium 5.1,Chloride 94 L, Carbon Dioxide 30.1, Anion Gap 10, BUN17, Creatinine 0.82, Estim Creat Clear Calc 148.25, Est GFR (MDRD) Non-Af 101, BUN/Creatinine Ratio 20.9 H, Glucose 76, Calcium 8.5, Troponin T High Sens 24 H D, NT pro BNP II 318 12/23/24 13:37: Lactic Acid 2.0 12/23/24 15:01: Troponin T Hi Sens 2 Hr 22 12/23/24 15:17: Urine Color Straw, Urine Clarity Sl. Cloudy, Urine pH 6.5, Ur Specific Barnum 1.010, Urine Protein 15 H, Urine Glucose (UA) Normal, Urine Ketones Negative, Urine Occult Blood Negative, Urine Nitrite Negative, Urine Bilirubin Negative, Urine Urobilinogen Normal, Ur Leukocyte Esterase 25 H 12/23/24 17:53: Lactic Acid < 1.0, Troponin T Hi Sens 4Hr 22 Imaging Radiology Impression Chest X-Ray 12/23/24 13:50 IMPRESSION: No interval change Reading Location: [id number] Assessment & Plan Assessment/Plan (1) Hypoxia: PLAN: Plan Patient is a 59-year-old male who presented to [facility] ED on 12/23/2024 with worsening shortness of breath. 1. Acute hypoxia on exertion in setting of COPD/asthma with allergic rhinitis, class III obesity with SHAHANA and suspected obesity hypoventilation syndrome ? Admit under inpatient status to [facility]. Patient with hypoxia on exertion down to 85% in the ED. Notably was hypoxic requiring 2 L on recent admission but was weaned off oxygen by discharge. Suspect patient has hypoxia at baselinedue to factors as noted above. Chest x-ray on admit clear. Breath sounds diminished but no wheezing or crackles noted, low concern for COPD exacerbation. Continue home inhalers. Continue home CPAP at night. Will order home O2 testing for tomorrow morning in case patient is able to be discharged home tomorrow. 2. Recent admission for left lower extremity cellulitis in setting of bilaterallower extremity venous stasis ? Hospitalized from 12/15-12/18 for this, see recent discharge summary for furtherdetails. Minimal leg swelling on exam today. Continue management as below. Chronic medical conditions: ? History of CAD with stenting, chronic HFpEF, history of NSVT, hypertension, hyperlipidemia: Normotensive and in normal sinus rhythm on admit. Continue homestatin, Lasix, lisinopril, Lopressor, and sotalol. Notably has had issues with orthostatic hypotension, continue home midodrine. ? Type 2 diabetes mellitus with recent episodes of hypoglycemia: Recent A1c 5.3%. Had low glucose values down to the 40s during previous hospitalization. Hold long-acting insulin and other home oral medications. Will treat with sliding scale insulin with meals while inpatient, adjust as needed. ? Hypothyroidism: Continue home Synthroid. ? BPH with obstructive disease: Continue home Flomax and finasteride. ? GERD: Continue home PPI. ? Chronic iron deficiency anemia: Hemoglobin 9.1 on admit, at baseline. ? Former tobacco use: Encouraged continued cessation. DVT prophylaxis: Lovenox twice daily CODE STATUS: Full code, verified Expected disposition: Home, TBD Total clinical time spent by myself addressing the patient's medical issues, reviewing all the data, and collaborating with patient's care team: 75 minutes. Charges/Coding Visit Charges Inpatient E&M: 12409 Init Hosp L3 12/23/241918 Cosigner Signature (if applicable): CC: MANUFACTURING MAINTENANCE MECHANIC-C Morgan Barajas; Dr. Garry Gross, DO~ Signed [facility]07-03-2025 Radiology Diagnostic study note [facility] Imaging Services [address] [place], [place] [address] Chest PA and Lateral MR#: [id number] Acct: [id number] Name: DERRELL HOYT Rep #: [id number] : 1965 M 59 From: Padma Segura MD PCP: CHRISTIANO TamezC Status: REG ER Study:Chest PA and Lateral Date of Exam: 12/23/24 Exam# [id number] Ordering Dr: Alex Mccray DO PROCEDURE: CHEST PA AND LATERAL 12/23/2024 REASON FOR EXAM: DYSPNEA TECHNIQUE: CHEST 2 PA AND LATERAL COMPARISON: 12/15/2024 FINDINGS: Hardware: None Heart: Stable cardiomegaly. Mediastinum: The mediastinal contour is stable. Lungs: Stable elevation of the left hemidiaphragm. Stable compressive atelectasis in the left lung base. Chronic interstitial changes in both lung ortiz without a superimposed process or significant interval change. Bones: Degenerative changes are identified within the thoracic spine. RAD/Chest PA and Lateral IMPRESSION: No interval change Reading Location: [id number] CC: MANUFACTURING MAINTENANCE MECHANIC-C Morgan Barajas; Dr. Alex Mccray, DO ~ Hydrologist: Signed [facility]07-02-2025 History and physical note Author Claudia Urena [facility] Note Date/Time December 22, 2024 12:09 pm [facility] [address] [place] [address] H&P Exam - Wound Care 12/22/24 1158 MR#: [id number] Acct: [id number] Name: DERRELL HOYT Rep #:[id number] : 1965 59 From: Cluadia Urena NP MANUFACTURING MAINTENANCE MECHANIC-C PCP: UNRULY Tamez Status: REG RCR Location: History of Present Illness Date of Service: 12/22/24 Chief Complaint: Chronic swelling and edema of the lower extremities, associatedwith stasis dermatitis cellulitis and sepsis History of Wound: This is a 59-year-old male that has history ofmany things multiple he is diabetic he is got COPD hypertension he had a thyroidectomy done because of 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 recently and he Shahid lost it and went off the deep and then was became homeless. He is now living in the [address] and he was trying to get his life back but I noticed on labs that his complete blood count that his hemoglobin is down to 7.9and he is iron deficient anemic kidney functions were good diabetes seem to be well-controlled but his alk phos was extremely high also. He is here for follow-up on his legs they are healing well but he does not take very good care of himself and there is just dried old skin all over his lower extremities. [facility] Medical History (Reviewed 12/22/24 @ 12:01 by Claudia Urena MANUFACTURING MAINTENANCE MECHANIC, MANUFACTURING MAINTENANCE MECHANIC-C) Redness of skin Thyroid disease Insulin dependent [...] encounter Tumor Atherosclerosis of coronary artery of [place] heart without angina pectoris Kidney stones COPD [...] 10 mg tablet 10 mg PO QHS PRN ALLERGIES 0 01/10/22 12/29/23 History (Singulair) guaifenesin 600 mg tablet, 600 mg PO Q12H PRN CONGESTI ON 02/04/22 11/18/23 History extended release 12 hr (Mucinex) fluticasone propionate 115 2 puff inhalation BID COPD 07/31/22 12/30/23 History mcg-salmeterol 21 mcg/actuation HFA inhaler (Advair HFA) blood sugar diagnostic 11/25/22 Unknown History atorvastatin 80 mg tablet 80 mg PO QHS CHOLESTEROL 12/29/23 History metoprolol tartrate 25 mg tablet 25 mg [...] 11/11/24 Unknown History sennosides 8.6 mg tablet (Greer-danyel) 17.2 mg PO QDAY Unknown History trazodone 50 mg tablet 150 mg PO QHS SLEEP 11/11/24 Unknown History bisacodyl 10 mg rectal suppository 10 mg AR ONCE PRN c onstipation 11/19/24 Unknown History furosemide 40 mg tablet 40 mg PO BID EDEMA 11/19/24 Unknown History venlafaxine 37.5 mg tablet 37.5 mg PO BID 11/19/24 Unk nown History acetaminophen 325 mg capsule 650 mg PO Q6H PRN pain Unknown History ammonium lactate 12 % topical cream 1 applic topical B ID PRN dry skin 11/30/24 Unknown History magnesium hydroxide 400 mg/5 mL 30 ml [...] 120 mg PO BID 5 Unknown History cephalexin 500 mg capsule 500 mg PO TID 2 days #6 caps 12/18/24 Unknown Rx insulin lispro 100 unit/mL See Protocol subcut ACHS #0 mL 12/18/24 Unknown Rx subcutaneous pen (Humalog KwikPen (U-100) Insulin) insulin lispro 100 unit/mL See Protocol subcut ACHS 1 month 12/18/24 Unknown Rx subcutaneous pen (Humalog KwikPen #15 mL (U-100) Insulin) midodrine 10 mg tablet 10 mg PO TIDCM 30 days #90 t abs 12/18/24 Unknown Rx needle (disp) 32 gauge 32 gauge x #100 ea 12/18/24 Unk nown Rx 5/16 polyethylene glycol 3350 17 17 g PO DAILY Constipation 30 days 12/18/24 10/19/24 Rx gram/dose oral powder (Miralax) #0 grams Allergy/AdvReac Type Severity Reaction Status Date / Time No Known Allergies Allergy Verified 12/22/24 10:52 Family History Father Heart disease Hypertension Mother Brain aneurysm Surgical History History of cardiac catheterization Hx [...] Yes Type: carbonated beverages ROS Constitutional Constitutional: Reports systems reviewed and no addt'l complaints, except as documented Eyes Eyes: Reports systems reviewed and no addt'l complaints, except as documented ENT HEENT: Reports systems reviewed and no addt'l complaints, except as documented Cardiovascular Cardiovascular: Reports systems reviewed and no addt'l complaints, except as documented Respiratory/Chest Respiratory/Chest: Reports systems reviewed and no addt'l complaints, except as documented Gastrointestinal Gastrointestinal: Reports systems reviewed and no addt'l complaints, except as documented Genitourinary Genitourinary: Reports systems reviewed and no addt'l complaints, except as documented Musculoskeletal Musculoskeletal: Reports systems reviewed and no addt'l complaints, except as documented Integumentary Integumentary: Reports wounds and other Details: Open wound some mostly left lower leg right lower leg is just edematous and has some stasis dermatitis. Neurologic Neurologic: Reports systems reviewed and no addt'l complaints, except as documented Psychiatric Psychiatric: Reports systems reviewed and no addt'l complaints, except as documented Endocrine Endocrinology: Reports systems reviewed and no addt'l complaints, except as documented Hematologic/Lymphatic Hematologic/Lymphatic: Reports systems reviewed and no addt'l complaints, exceptas documented Allergic/Immunologic Allergic/Immunologic: Reports systems reviewed and no addt'l complaints, except as documented Vital Signs Vital Signs Vital Signs: 12/22/24 10:20 Temperature 97.1 F L Temperature Source Temporal Pulse Rate 80 Respiratory Rate 18 Blood Pressure 104/55 L Blood Pressure Mean 71 Blood Pressure Source Monitor Blood Pressure Position Sitting Blood Pressure Location Right Arm Oxygen Delivery Method Room Air Weight Weight: 333 lb Body Mass Index (BMI) 43.9 Physical Exam Const oriented x3 General Appearance: cooperative Exam Limitations: no limitations HEENT normocephalic Nose: external nose normal Eyes General Eye: normal appearance of both eyes Neck full ROM Resp normal respiratory effort Effort and Inspection: able to speak in complete sentences Auscultation: clear to auscultation bilaterally Cardio regular rate and regular rhythm Palpation: normal PMI Rate: regular rate Rhythm: regular rhythm Extremity General Extremity: normal exam except as noted and edema Skin no rashes or lesions noted Skin Narrative: Open wounds on the anterior lower extremity superficial and dry skin that needs to be debrided off with just basic washing and then he can use the amLactin cream afterwards. General Skin Exam: desquamation, dry skin, mottling and dermatitis; Negative forno breakdown Neuro oriented x3 Psych Appearance: grossly normal Speech: normal speech Thought Content: normal thought content Judgement: judgement good Debridement Note Debridement Note Wound debrided: Ulcer left lower leg nonpressure Type of Debridement: Excisional debridement Anesthesia Used: 5% Lidocaine Gel Depth: Down to and including healthy tissue Percentage of wound debrided: 100 Instrument Used: 7mm curette Tissue Removed: Devitalized tissue and fibrin Severity: Limited To Skin Breakdown Amount of bleeding with debridement: Mild Bleeding Controlled with: Compression and gauze Patient tolerated procedure: Patient tolerated procedure well Post-Debridement Measurements and Additional Note: Post-Debridement Measurements/Treatment NANCIE - Nurse 1 - General Ulcer Assessment Start: 12/22/24 10:18 Freq: Status: Active Protocol: CHANTELLE Activity Type Activity Date Activity User E-sign Co-sign Detail Recorded Client Recorded Date Recorded By Document 12/22/24 10:20 MT [id number] 12/22/24 10:38 NC 12/22/24 10:20 - Today's Visit Information Type of service Initial Visit Arrival Mode Ambulatory Accompanied by self Patient Identification Verified (Name & Yes ) Safety Precautions Fall Prevention Height and Weight Height 6 ft 1 in Weight 333 lb Weight in Pounds 333.0 lbs Weight Measurement Method Stated by Patient Body Mass Index (BMI) 43.9 BMI Classification Obese Vital Signs Temperature (97.8 F-99.1 F) 97.1 F L Temperature Source Temporal Pulse Rate (60-100) 80 Pulse Location Monitor Respiratory Rate (12-18) 18 Respiratory rate source Observation Oxygen Delivery Method Room Air Blood Pressure (90/60-120/80) 104/55 L Blood Pressure Mean 71 Source Monitor Position Sitting Blood Pressure Location Right Arm History Since Last Visit- (Skip if this is Patient's initial visit) Has dressing in place as prescribed Yes Has compression in place as prescribed Yes Has offloadiing in place as prescribed Yes Experienced any changes in pain level or Yes management Left Footwear Regular Shoe Right Footwear Regular Shoe Pain Scale: 0-10 Numeric Is Patient Pain Free? Yes - Nurse 1 - General Ulcer Measurement Start: 12/22/24 10:18 Freq: Status: Active Protocol: Activity Type Activity Date Activity User E-sign Co-sign Detail Recorded Client Recorded Date Recorded By Document 12/22/24 10:20 NC [id number] 12/22/24 10:38 NC 12/22/24 10:20 Wound Center Nurse 1 #4 Left Lower Lateral Leg -Current Size (cm) - Length 10.1 -Current Size (cm) - Width 8.5 -Current Size (cm) - Depth 0.1 -Total Square Cm 85.85 -Date of Last Picture (Recall this 12/22/24 field) -Photo Taken Yes -Epithelialization Large 67-100% -Tunneling No -Undermining/Tunneling No -Circular Undermining No -Exudate Amt None Present -Wound Margin Flat & Intact -Granulation Amt Large (67-100%) -Granulation Quality Pale,Weinert -Necrosis Amt Small (1-33%) -Necrotic Tissue Type Adherent Slough -Texture (Capri-wound Skin Appearance) Assessed -Moisture (Capri-wound Skin Appearance) Assessed -Color (Capri-wound Skin Appearance) Assessed -Temperature (Capri-wound Skin No Abnormality Appearance) (Pt Warm) -Tenderness on Palpation (Capri-wound No Skin Appearance) -Ulcer Cleansing Soap and Water -Foul Odor after Cleansing No -Anesthetic Used 5% Lidocaine Gel NANCIE - Nurse 2 - General Ulcer CM Notes Start: 12/22/24 10:18 Freq: Status: Active Protocol: Activity Type Activity Date Activity User E-sign Co-sign Detail Recorded Client Recorded Date Recorded By Document 12/22/24 10:46 [facility] [id number] 12/22/24 10:58 [facility] 12/22/24 10:46 W[facility] Nurse 2 -Time 10:50 -Correct Patient Yes -Correct Side, Site, Position Yes -Correct Procedure Yes -Procedure Performed Yes -Type of Procedure Debridement -Clinical Debridement Subcutaneous -Tissue Removed Subcutaneous -Post Debridement (cm) - Length 11.5 -Post Debridement (cm) - Width 7 -Post Debridement (cm) - Depth 0.1 -Total Square (Post) (cm) 80.5 -Area of Debridement (cm) - Length 11.5 -Area of Debridement (cm) - Width 7 -Total Square (Area) (cm) 80.5 -Tunneling No -Undermining/Tunneling No -Circular Undermining No -Wound/Ulcer Outcome Not Healed -Ulcer Cleansing Rinsed/ Irrigated with Saline -Foul Odor after Cleansing No -Bioengineered Tissue No -Bleeding Controlled with Pressure -Treatment Response Procedure Tolerated Well -Debridement - Subq, 1st 20sq cm Yes -Debridement, SubQ, ea addt'l 20sq cm 3 or part thereof Pain Scale: 0-10 Numeric Is Patient Pain Free? Yes NANCIE - Nurse 3 - General Ulcer D/C NN Start: 12/22/24 10:18 Freq: Status: Active Protocol: Activity Type Activity Date Activity User E-sign Co-sign Detail Recorded Client Recorded Date Recorded By Document 12/22/24 10:50 MT [id number] 12/22/24 10:52 NC Document 12/22/24 11:16 DL [id number] 12/22/24 11:18 DL 12/22/24 12/22/24 10:50 11:16 [facility] Center Nurse 3 #4 Left Lower Lateral Leg -Ulcer Cleansing Soap and Water -Primary Dressing Applied NonAdherent Contact Layer -Other Dressing xerofrom -Primary Dressing Covered/Secured with Dry Gauze & Roll Gauze, Other -Other Covering ABD LLE -Tubular Bandage Single Layer -Size of Tubigrip Used Size F -Size F ($) 1 Treatment Response Procedure Tolerated Well Pain Scale: 0-10 Numeric Is Patient Pain Free? Yes Yes WC - Visit Discharge Discharge Condition Stable Ambulatory Status Ambulatory Transportation Private Auto Facility Type Detention Care Facility Orders Sent Yes Assessment/Plan Assessment/Plan (1) Wound cellulitis: CODE(S): L03.90 - Cellulitis, unspecified (2) Iron deficiency anemia: CODE(S): D50.9 - Iron deficiency anemia, unspecified QUALIFIERS: Iron deficiency anemia type: inadequate dietary iron intake Qualified Code(s): D50.8 - Other iron deficiency anemias (3) Elevated alkaline phosphatase level: CODE(S): R74.8 - Abnormal levels of other serum enzymes (4) Non-pressure ulcer of left lower extremity: CODE(S): L97.929 - Non-pressure chronic ulcer of unspecified part of left lower leg with unspecified severity QUALIFIERS: Non-pressure ulcer stage: with fat layer exposed Qualified Code(s): L97.922 - Non-pressure chronic ulcer of unspecified part of left lower leg with fat layer exposed PLAN: Scrub and wash lower extremities with antibacterial soap and water to get off all skin that can harbor bacteria. Apply the Xeroform to the open wound areas and cover with ABDs and Gui and then double layer Tubigrip's to both lower legs this will be done every day Follow-up 1 week 12/22/24 1200 <Electronically signed by Claudia Urena NP MANUFACTURING MAINTENANCE MECHANIC-C> Cosigner Signature (if applicable): CC: ~ Signed [facility] Work Phone: [phone] Discharge summary [facility] Medical Records Department [address] [place] [address] Discharge Summary 12/18/24 0943 MR#: [id number] Acct: [id number] Name: DRERELL HOYT Rep #:[id number] : 1965 59 From: Marcellus Cochran PCP: UNRULY Tamez Status: ADM IN Location: [place] [address] Providers Date of Admission: 12/15/24 Primary Care Physician: Morgan Barajas, MANUFACTURING MAINTENANCE MECHANIC-C Consultations 12/15/24 23:05 Consult: Onc/Wound/claims processor Routine Comment: Reason for Consult:: LLE stasis wound Reason For Visit: LLE WOUND, HFpEF EXAC Diagnosis Discharge Diagnosis (1) Wound cellulitis: Status: Acute Code(s): L03.90 - Cellulitis, unspecified Plan The patient is a 59 y/o M admitted with left foot wound that has been draining for last couple weeks but started draining #1. Left lower extremity extremity edema by BL LE venous stasis disease complicated with hypotension due to diabetic: Patient admitted in PCU. Patient started on furosemide 40 mg twice daily but got hypotensive in the afternoon 83/44. IV Lasix to be hold and if blood pressure permits then [id number] mg twice daily. Midodrine 10 mg 3 times daily started. Discussed with the wound nurse and she thinks mainly venous congestion/edema not cellulitis. On vancomycin and Zosyn titrated down to IV ceftriaxone and doxycycline. Prelim wound culture shows 2+ GPR 12/17: Leg swelling is getting better. Now swelling up to the knee level. 12/18: Leg swelling is much better. Discharged on furosemide 40 mg twice daily. #2. Acute Hypoxia, suspected primarily secondary to SHAHANA, Morbid obesity hypoventilation syndrome, ECHO noted 11/19/2023 from [facility] with LV mildly dilated, moderate concentric LVH, LV systolic function normal, EF 63? percent thus will Echo 12/16/2024 suggestive of chronic HFpEF Mild concentric left ventricular hypertrophy. The LV ejection fraction is 65 %. Stage 1 diastolic dysfunction. There is mild biatrial dilatation. The study was technically difficult. 12/17 on 2 L of oxygen pulse ox 98% 12/18: Patient's blood pressure is still 104/7054. On midodrine 10 mg 3 times daily advised to hold if SBP more than 100 mmHg. Prescription for midodrine given. #3. Chronic COPD/asthma with allergic rhinitis: Current ATC duonebs, PRN albuterol, HOB, IS parameters, continue home montelukast regimen. #4. Chronic microcytic anemia/iron deficiency anemia: Admission hemoglobin 8.6,MCV 73.3, baseline hemoglobin noted previously 11/30/2024 9.4 and prior to this 03/31/2024 hemoglobin 11.7, has trended downward, currently does not appear to belisted on antiplatelet therapy, potentially bleed related, will obtain iron panel, ferritin, guaiac to be cautious and trend CBC. 12/17 H&H 7.9/19.8%. Platelet count 197K. #5. History NSVT: Will continue patient on sotalol and metoprolol regimen, following with EP cardiology per most recent cardiology note 11/19/2024. #6. CAD: Status post previous PCI LAD PTCA/bare-metal stent 2020, will continuepatient home metoprolol, lisinopril, statin therapy, clarifying antiplatelet regimen. #7. Diabetes mellitus type II complicated with hypoglycemia: A1c 5.3, glucose 42. Most recent glucose is 101, 126, 112. Hold scheduled insulin. Accu-Chek AC and at bedtime incorrigible of sliding 12/17: # He has hypoglycemia with glucose dropping to 42 in BMP. Did not gettingany insulin. On hypoglycemia protocol. 12/18 patient glucose still about 119, 1908. Advised to hold his scheduled Lantus insulin. Discharged on sliding scale hemoglobin splint, prescription given #8. Anxiety and depression: = continue patient home venlafaxine and low-dose trazodone regimen withhold for sedation if necessary. #9. Hypertension: continue patient home sotalol, lisinopril IV Lasix as noted. As needed IV hydralazine. #10. Hyperlipidemia: Lipid profile shows HDL 32, LDL 23, total cholesterol 72. #11. Hypothyroidism: Status post previous thyroidectomy, resulting hypothyroidism, will continue patient home levothyroxine regimen. #12. Former tobacco usage: Encourage continued tobacco cessation. #13. Morbid Obesity: Weight loss and lifestyle changes encouraged. #14. SHAHANA: continue CPAP nightly. #15. BPH with obstructive pathology: Will continue patient on Flomax and finasteride regimen, monitor for urinary retention. #16. GERD: Will continue patient on PPI. #17. DVT prophylaxis: SCDs, clarifying why patient is not on antiplatelet therapies and given worsening anemia will hold off on chemoprophylaxis, add if workup unremarkable and noted to be clinicallyappropriate. #18. CODE status: Patient HCPOA and living will are not in place but he notes his daughter would behis medical decision-maker if necessary. Discussed CODE status at length including difference between FULL code, DNR-CCA and DNR-CC status. Following discussions about the differences in these status, requested Full Code status. Discharge medication reconciliation done. Discharge follow-up instructions completed. Discharge process discussed with the patient and all questions wereanswered to patient's satisfaction. Follow with PCP in 1 to 2 weeks Total time spent, exact 35 minutes on discharge meds reconciliation, examination, coordination of care with nurses and ancillary staff, review of imaging and blood test and discussion with the patient on follow-up instructions. Clinical Impression(s) from Imaging Studies Chest X-Ray 12/15/24 20:40 IMPRESSION: Findings compatible with CHF/volume overload. Reading Location: [id number] Echocardiogram 12/15/24 23:05 Interpretation Summary Mild concentric left ventricular hypertrophy. The LV ejection fraction is 65 %. Stage 1 diastolic dysfunction. There is mild biatrial dilatation. The study was technically difficult. 12/15/24 23:30 Wound - Leg, Left Gram Stain - Final Laboratory Results 12/15/24 19:00: WBC 11.5 H, RBC 4.31 L, Hgb 8.6 L, Hct 31.6 L, MCV 73.3 L, MCH 20.0 L, MCHC 27.2 L,RDW Std Deviation 53.4 H, RDW Coeff of Jovany 20.6 H, Plt Count 217, MPV 9.4, Immature Gran % (Auto) 0.300, Neut % (Auto) 78.6 H, Lymph % (Auto) 12.0 L, [place] % (Auto) 7.7, Eos % (Auto) 1.1, Baso % (Auto) 0.3, Absolute Neuts (auto) 9.0 H, Absolute Lymphs (auto) 1.38, Nucleated RBC % 0, DifferentialComme nt SCANNED, Platelet Estimate ADEQUATE, Polychromasia 1+, Anisocytosis 1+, Sodium 133, Potassium 4.4, Chloride 92 L, Carbon Dioxide 30.8, Anion Gap 10, BUN14, Creatinine 0.73, Estim Creat Clear Calc 165.21, Est GFR (MDRD) Non-Af 105, BUN/Creatinine Ratio 19.3, Glucose 116 H, Calcium 8.9, Magnesium 2.1, NT pro BNPII 220, Procalcitonin 0.10 12/15/24 20:57: Lactic Acid 2.2 H* 12/16/24 05:00: WBC 10.8, RBC 3.98 L, Hgb 7.9 L, Hct 29.9 L, MCV 75.1 L, MCH 19.8 L, MCHC 26.4 L, RDW Std Deviation 55.1 H, RDW Coeff of Jovany 20.4 H, Plt Count 197, MPV 9.3, Immature Gran % (Auto) 0.300, Neut % (Auto) 79.2 H, Lymph % (Auto) 11.6 L, Bossier % (Auto) 7.2, Eos % (Auto) 1.3, Baso % (Auto) 0.4, Absolute Neuts (auto) 8.6 H, Absolute Lymphs (auto) 1.25, Nucleated RBC % 0, Anisocytosis2+, Sodium 137, Potassium 4.0, Chloride 96 L, Carbon Dioxide 30.2, Anion Gap 11,BUN 14, Creatinine 0.66 L,Estim Creat Clear Calc 181.02, Est GFR (MDRD) Non-Af 108, BUN/Creatinine Ratio 21.5 H, Glucose 42 L*, Hemoglobin A1c 5.3, Lactic Acid1.6, Calcium 8.3, Iron 20 L, TIBC 295, Iron Saturation 7.0 L, Unsaturated IBC 275, Ferritin 12 L, Total Bilirubin 0.49, AST 24, ALT 17, Alkaline Phosphatase 251 H, Total Protein 6.9, Albumin 3.2 L, Globulin 3.7, Albumin/Globulin Ratio 0.9, Triglycerides 83, Cholesterol 72, LDL Cholesterol, Calc 23, VLDL Cholesterol 17, HDL Cholesterol 32 L, Cholesterol/HDL Ratio 2.25, TSH 8.580 H 12/16/24 06:25: POC Glucose 39 L* 12/16/24 06:50: POC Glucose 100 12/16/24 09:01: POC Glucose 54 L 12/16/24 09:47: POC Glucose 112 H 12/16/24 11:43: POC Glucose 126 H 12/16/24 12:05: MRSA (PCR) Pending 12/16/24 15:00: POC Glucose 101 Medications at Discharge Home Medications potassium chloride 20 mEq tablet,extended release(part/cryst) 20 meq PO DAILYCM SUPPLEMENT 04/23/19 metformin 1,000 mg tablet 1,000 mg PO BID DIABETES 01/18/21 tamsulosin 0.4 mg capsule 0.4 mg PO QHS PROSTATE 02/05/21 albuterol sulfate 90 mcg/actuation aerosol inhaler 2 puff inhalation Q4H PRN SHORTNESS OF BREATH/WHEEZING 02/11/21 montelukast 10 mg tablet (Singulair) 10 mg PO QHS PRN ALLERGIES 01/10/22 guaifenesin 600 mg tablet, extended release 12 hr (Mucinex) 600 mg PO Q12H PRN CONGESTION 02/04/22 fluticasone propionate 115 mcg-salmeterol 21 mcg/actuation HFA inhaler (Advair HFA) 2 puff inhalation BID COPD 07/31/22 blood sugar diagnostic 11/25/22 atorvastatin 80 mg tablet 80 mg PO QHS CHOLESTEROL 11/18/23 metoprolol tartrate 25 mg tablet 25 mg PO BID #120 tabs 03/31/24 levothyroxine 200 mcg tablet 275 mcg PO DAILY THYROID 07/07/24 omeprazole 20 mg capsule,delayed release 20 mg PO DAILY GERD 07/13/24 semaglutide 2 mg/dose (8 mg/3 mL) subcutaneous pen injector (Ozempic) 2 mg subcut QWEEK DIABETES 07/13/24 insulin glargine 100 unit/mL (3 mL) subcutaneous pen (Lantus Solostar U-100 Insulin) 56 unit subcutQPM 09/13/24 Held on 12/18/24. Instructions: Hold if glucose less than 130 mg/dl lisinopril 2.5 mg tablet 2.5 mg PO DAILY 10/20/24 finasteride 5 mg tablet (Proscar) 5 mg PO QDAY 11/11/24 glipizide 5 mg tablet 5 mg PO QDAY 11/11/24 Held on 12/18/24. Instructions: Hold if glucose less than 130 mg/dl melatonin 10 mg tablet 10 mg PO QHS SLEEP 11/11/24 sennosides 8.6 mg tablet (Greer-danyel) 17.2 mg PO QDAY 11/11/24 trazodone 50 mg tablet 150 mg PO QHS SLEEP 11/11/24 bisacodyl 10 mg rectal suppository 10 mg AR ONCE PRN constipation 11/19/24 furosemide 40 mg tablet 40 mg PO BID EDEMA 11/19/24 venlafaxine 37.5 mg tablet 37.5 mg PO BID 11/19/24 acetaminophen 325 mg capsule 650 mg PO Q6H PRN pain 11/30/24 ammonium lactate 12 % topical cream 1 applic topical BID PRN dry skin 11/30/24 magnesium hydroxide 400 mg/5 mL oral suspension (Dulcolax (magnesium hydroxide))30 ml PO DAILY PRN constipation 11/30/24 mineral oil-hydrophil petrolat topical ointment (AmeriPhor topical ointment) 1 applic topical DAILY11/30/24 ondansetron 4 mg disintegrating tablet 4 mg PO DAILY PRN nausea and vomiting 11/30/24 sotalol 120 mg tablet (Betapace) 120 mg PO BID 11/30/24 cephalexin 500 mg capsule 500 mg PO TID 2 days #6 caps 12/18/24 insulin lispro 100 unit/mL subcutaneous pen (Humalog KwikPen (U-100) Insulin) See Protocol subcut ACHS #0 mL 12/18/24 insulin lispro 100 unit/mL subcutaneous pen (Humalog KwikPen (U-100) Insulin) See Protocol subcut ACHS 1 month #15 mL 12/18/24 midodrine 10 mg tablet 10 mg PO TIDCM 30 days #90 tabs 12/18/24 needle (disp) 32 gauge 32 gauge x 5/16 #100 ea 12/18/24 polyethylene glycol 3350 17 gram/dose oral powder (Miralax) 17 g PO DAILY Constipation 30 days #0 grams 12/18/24 Physical Exam Narrative Seen and examined Blood pressure is above systolic 100. Bilateral leg swellings have improved no fever. Hypoglycemia corrected Physical exam General: Alert, Oriented x3, Cooperative. Morbid obesity BMI 44.6 kg/m? HEENT: Atraumatic, PERRLA, EOMI, Normocephalic. Oral: No Gingival or Mucosal Lesions/ Ulcerations Neck: Supple, No JVD, Negative Carotid Bruits Chest wall/Lungs: Air entry diminished in bilateral lung bases. No crepitation/rhonchi Cardiovascular: Regular rate and rhythm, Normal S1,S2, No M/G/R Abdomen: Bowel Sounds Present, Soft, Non Tender, Non-Distended : No dysuria. No renal angle tenderness. No suprapubic tenderness. Extremities: Lower extremity edema have improved. Continue Darell wrap and, Capillary Refill Less than3 Seconds Skin: Bilateral venous congestion suggestive of venous hypertension/stasis Musculoskeletal: Bilateral lower extremity swelling up to knee level with chronic skin/subcutaneousthickening Neurological: Cranial nerves II-XII grossly intact, DTR 2+/4. No acute focal neurological deficit. Psych/Mental Status: Flat affect Weight / BMI Weight Weight: 332 lb 14.368 oz Body Mass Index (BMI) 45.1 ABG / Lab / Microbiology Data 12/16/24 05:00 12/16/24 05:00 Laboratory: Laboratory Results - last 24 hr 12/17/24 10:53: POC Glucose 125 H 12/17/24 16:26: POC Glucose 119 H 12/17/24 22:02: POC Glucose 99 12/18/24 06:12: POC Glucose 108 H Microbiology: Microbiology 12/15/24 20:56 Blood Culture (Wb) - Anticubital Left Blood Culture - Preliminary No growth in 48 hours. 12/15/24 19:00 Blood Culture (Wb) - Right Forearm Blood Culture - Preliminary No growth in 48 hours. 12/15/24 23:30 Wound - Leg, Left Gram Stain - Final 12/15/24 23:30 Wound - Leg, Left Wound Culture - Preliminary Mixed Gram Pos & Gram Neg Org 12/15/24 23:30 Wound - Leg, Left Skin and Soft Tissue MRSA/MSSA (PCR - Final D/C Instructions Discharge Diet: - (Diet: Cardiac: Calorie-Controlled Food consistency:: Regular Liquid Consistency:: Regular/Thin Fluid restriction:: 1500 mL How many daily calories?: 1800 calorie) Weight Bearing Status: Weight bearing as tolerated Call your doctor if you observe: Fever of 101 or Higher, Coldness, Increased Pain, Numbness or Tingling, Change in Color, Inability to urinate, Inability to have a bowel movement, Shortness of breath, Dizziness, Fainting spells, Swellingin the ankles, Chest pain, Prolonged hiccupping, Increased palpitations (irregular heartbeat) and Calf discomfort DC O2, CPAP, BIPAP Needs Home O2 Discharge instructions: Yes Type of respiratory needs?: Oxygen Oxygen frequency: ContinuousContinuous oxygen liters per minute: 2 DC home with Oxygen: Yes Home O2 MD Review: I have reviewed the oxygen testing, and the patient qualifies for home oxygen equipment and portability. The patient is mobile in the home and the community. When: IN 2 WEEKS Meaningful Use Info Meaningful Use Meaningful Use Diagnoses (Choose all that apply): None applicable Ischemic Stroke Statin Dosing Therapy Reference: STATIN DOSE THERAPY REFERENCE: * Patients > 75 years receive moderate or high dose statin therapy. * Patients 75 years or YOUNGER should receive HIGH intensity statin dose unless contraindicated. You will be required to document reason for non-treatment if statin daily dose does not meet guidelines. HIGH DOSE STATIN THERAPY DAILY Atorvastatin > than or = to 40 mg Rosuvastatin > than or = to 20 mg Amlodipine + Atorvastatin > than or = to 2.5/40 mg Ezetimibe + Simvastatin 10/80 mg Simvastatin 80mg Discharge Plan Admission Admit Date/Time: 12/15/24 22:28 Primary Reason for Your Visit: Bilateral lower extremity lymphedema Attending Provider: Marcellus Gunn Primary Care Provider: Morgan Barajas MANUFACTURING MAINTENANCE MECHANIC Consulting Providers: Arlette Grigsby Instructions Additional Instructions / Restrictions: Advised to follow [place] lymphedema clinic/wound center Discharge Orders/Prescriptions Prescriptions: New midodrine 10 mg tablet 10 mg PO TIDCM 30 Days Qty: 90 0RF Rx Instructions: Hold if SBP more than 100 mmHg insulin lispro [Humalog KwikPen Insulin] 100 unit/mL Insulin Pen See Protocol subcut ACHS Qty: 0 0RF Protocol: 4. Sliding Scale Insulin High-Med Dosing Condition: 150-199 mg/dl = 2 units Condition: 200-259 mg/dl = 4 units Condition: 260-324 mg/dl = 6 units Condition: 325-374 mg/dl = 8 units Condition: 375-409 mg/dl = 10 units Condition: 410-449 mg/dl = 11 units Condition: Greater than 449 call physician Protocol Text: Suggested for: - Patients on Total Daily Insulin Dose of 56-80 units - Patient who are known to be insulin resistant or septic HIGH MEDIUM DOSING ALGORITHM cephalexin 500 mg capsule 500 mg PO TID 2 Days Qty: 6 0RF insulin lispro [Humalog KwikPen Insulin] 100 unit/mL insulin pen See Protocol subcut ACHS 30 Days Qty: 15 2RF Protocol: 4. Sliding Scale Insulin High-Med Dosing Condition: 150-199 mg/dl = 2 units Condition: 200-259 mg/dl = 4 units Condition: 260-324 mg/dl = 6 units Condition: 325-374 mg/dl = 8 units Condition: 375-409 mg/dl = 10 units Condition: 410-449 mg/dl = 11 units Condition: Greater than 449 call physician Protocol Text: Suggested for: - Patients on Total Daily Insulin Dose of 56-80 units - Patient who are known to be insulin resistant or septic HIGH MEDIUM DOSING ALGORITHM Rx Instructions: Hold if glucose less than 130 mg/dl (DME) needle (disp) 32 gauge 32 gauge x 5/16 needle See Rx Instructions .ROUTE .MEDSUPPLY Qty: 100 2RF Rx Instructions: As directed Continued tamsulosin 0.4 mg capsule 0.4 mg PO QHS guaifenesin [Mucinex] 600 mg tablet extended release 12hr 600 mg PO Q12H PRN (Reason: CONGESTION ) montelukast [Singulair] 10 mg tablet 10 mg PO QHS PRN (Reason: ALLERGIES ) fluticasone propion-salmeterol [Advair HFA] 115-21 mcg/actuation HFA aerosol inhaler 2 puff inhalation BID melatonin 10 mg tablet 10 mg PO QHS (DME) blood sugar diagnostic Kit See Rx Instructions .Route Rx Instructions: As directed omeprazole 20 mg capsule,delayed release(DR/EC) 20 mg PO DAILY Ozempic 2 mg/dose (8 mg/3 mL) pen injector 2 mg subcut QWEEK Rx Instructions: FRIDAY bisacodyl 10 mg suppository 10 mg AR ONCE PRN (Reason: constipation) venlafaxine 37.5 mg tablet 37.5 mg PO BID sennosides [Greer-danyel] 8.6 mg tablet 17.2 mg PO QDAY finasteride [Proscar] 5 mg [...] 25 mg PO BID Qty: 120 2RF acetaminophen 325 mg capsule 650 mg PO Q6H PRN (Reason: pain) ammonium lactate 12 % cream 1 applic topical BID PRN (Reason: dry skin) AmeriPhor Ointment 1 applic topical DAILY magnesium hydroxide [Dulcolax (magnesium hydroxide)] 400 mg/5 mL suspension 30 ml PO DAILY PRN (Reason: constipation) ondansetron 4 mg tablet,disintegrating 4 mg PO DAILY PRN (Reason: nausea and vomiting) sotalol [Betapace] 120 mg tablet 120 mg PO BID lisinopril 2.5 mg tablet 2.5 mg PO DAILY Changed polyethylene glycol 3350 [Miralax] 17 gram/dose powder 17 g PO DAILY 30 Days Qty: 0 0RF Held glipizide 5 mg tablet 5 mg PO QDAY Hold Instructions: Hold if glucose less than 130 mg/dl insulin glargine [Lantus Solostar U-100 Insulin] 100 unit/mL (3 mL) insulin pen 56 unit subcut QPM Hold Instructions: Hold if glucose less than 130 mg/dl Discontinued doxycycline hyclate 100 mg capsule 100 mg PO BID Referrals / Follow Up: Morgan Barajas MANUFACTURING MAINTENANCE MECHANIC, MANUFACTURING MAINTENANCE MECHANIC-C [Primary Care Provider] - Disposition Disposition (needs filled in before D/C Order can be placed): Assisted Living Charges/Coding Visit Charges Inpatient E&M: 60821 Disch Hosp >30min 12/18/24 0949 Cosigner Signature (if applicable): CC: CHRISTIANOC Morgan Barajas; Dr. Marcellus Gunn MD~ Signed [facility]06-28-2025 Discharge summary [facility] Medical Records Department [address] [place] [address] Instructions for Home/Discharge Instructions 12/18/24 0933 MR#: [id number] Acct: [id number] Name: DERRELL HOYT Rep #:[id number] : 1965 59 From: Marcellus Cochran PCP: UNRULY Tamez Status: ADM IN Discharge Instructions Diet Discharge Diet: - (Diet: Cardiac: Calorie-Controlled Food consistency:: Regular Liquid Consistency:: Regular/Thin Fluid restriction:: 1500 mL How many daily calories?: 1800 calorie) DC O2, CPAP, BIPAP needs Home O2 Discharge instructions: Yes Type of respiratory needs?: Oxygen Oxygen frequency: ContinuousContinuous oxygen liters per minute: 2 Dressing / Incision Discharge Activity: Return to Normal Activity Weight Bearing Status: Weight bearing as tolerated Dressing / Incision Call your doctor if you observe: Fever of 101 or Higher, Coldness, Increased Pain, Numbness or Tingling, Change in Color, Inability to urinate, Inability to have a bowel movement, Shortness of breath, Dizziness, Fainting spells, Swellingin the ankles, Chest pain, Prolonged hiccupping, Increased palpitations (irregular heartbeat) and Calf discomfort Follow Up Care When: IN 2 WEEKS Test Results: Test results from this visit will be discussed in further detail at your follow- up appointment, if applicable. Discharge Plan Admission Admit Date/Time: 12/15/24 22:28 Primary Reason for Your Visit: Bilateral lower extremity lymphedema Attending Provider: Marcellus Gunn Primary Care Provider: Morgan Barajas MANUFACTURING MAINTENANCE MECHANIC Consulting Providers: Arlette Grigsby Instructions Additional Instructions / Restrictions: Advised to follow [place] lymphed[facility] clinic/wound center Discharge Orders/Prescriptions Prescriptions: New midodrine 10 mg tablet 10 mg PO TIDCM 30 Days Qty: 90 0RF Rx Instructions: Hold if SBP more than 100 mmHg insulin lispro [Humalog KwikPen Insulin] 100 unit/mL Insulin Pen See Protocol subcut ACHS Qty: 0 0RF Protocol: 4. Sliding Scale Insulin High-Med Dosing Condition: 150-199 mg/dl = 2 units Condition: 200-259 mg/dl = 4 units Condition: 260-324 mg/dl = 6 units Condition: 325-374 mg/dl = 8 units Condition: 375-409 mg/dl = 10 units Condition: 410-449 mg/dl = 11 units Condition: Greater than 449 call physician Protocol Text: Suggested for: - Patients on Total Daily Insulin Dose of 56-80 units - Patient who are known to be insulin resistant or septic HIGH MEDIUM DOSING ALGORITHM cephalexin 500 mg capsule 500 mg PO TID 2 Days Qty: 6 0RF Continued tamsulosin 0.4 mg capsule 0.4 mg PO QHS guaifenesin [Mucinex] 600 mg tablet extended release 12hr 600 mg PO Q12H PRN (Reason: CONGESTION ) montelukast [Singulair] 10 mg tablet 10 mg PO QHS PRN (Reason: ALLERGIES ) fluticasone propion-salmeterol [Advair HFA] 115-21 mcg/actuation HFA aerosol inhaler 2 puff inhalation BID melatonin 10 mg tablet 10 mg PO QHS (DME) blood sugar diagnostic Kit See Rx Instructions .Route Rx Instructions: As directed omeprazole 20 mg capsule,delayed release(DR/EC) 20 mg PO DAILY Ozempic 2 mg/dose (8 mg/3 mL) pen injector 2 mg subcut QWEEK Rx Instructions: FRIDAY bisacodyl 10 mg suppository 10 mg AR ONCE PRN (Reason: constipation) venlafaxine 37.5 mg tablet 37.5 mg PO BID sennosides [Greer-danyel] 8.6 mg tablet 17.2 mg PO QDAY finasteride [Proscar] 5 mg [...] 25 mg PO BID Qty: 120 2RF acetaminophen 325 mg capsule 650 mg PO Q6H PRN (Reason: pain) ammonium lactate 12 % cream 1 applic topical BID PRN (Reason: dry skin) AmeriPhor Ointment 1 applic topical DAILY magnesium hydroxide [Dulcolax (magnesium hydroxide)] 400 mg/5 mL suspension 30 ml PO DAILY PRN (Reason: constipation) ondansetron 4 mg tablet,disintegrating 4 mg PO DAILY PRN (Reason: nausea and vomiting) sotalol [Betapace] 120 mg tablet 120 mg PO BID lisinopril 2.5 mg tablet 2.5 mg PO DAILY Changed polyethylene glycol 3350 [Miralax] 17 gram/dose powder 17 g PO DAILY 30 Days Qty: 0 0RF Held glipizide 5 mg tablet 5 mg PO QDAY Hold Instructions: Hold if glucose less than 130 mg/dl insulin glargine [Lantus Solostar U-100 Insulin] 100 unit/mL (3 mL) insulin pen 56 unit subcut QPM Hold Instructions: Hold if glucose less than 130 mg/dl Discontinued doxycycline hyclate 100 mg capsule 100 mg PO BID Referrals / Follow Up: Morgan Barajas MANUFACTURING MAINTENANCE MECHANIC, MANUFACTURING MAINTENANCE MECHANIC-C [Primary Care Provider] - Disposition Disposition (needs filled in before D/C Order can be placed): Assisted Living 12/18/24 0943Marcellus Gunn MD CC: MANUFACTURING MAINTENANCE MECHANIC-C Morgan Barajas; Dr. Arlette Grigsby MD ~ Signed [facility]06-28-2025 [facility]06-27-2025 Progress note Author Marcellus Gunn [facility] Note Date/Time December 17, 2024 2:10 pm [facility] Medical Records Department [address] [place] [address] Progress Note - Hospitalist 12/17/24 1403 MR#: [id number] Acct: [id number] Name: DERRELL HOYT Rep #:[id number] : 1965 59 From: Marcellus Cochran PCP: UNRULY Tamez Status: ADM IN Location: [place] [address] Reason for Visit Reason for Visit: Diagnoses Cellulitis, unspecified (12/15/24) Objective Data Objective Data Vital Signs: Vital Signs Temp Pulse Resp BP Pulse Ox O2 Del Method O2 Flow Rate 97.9 F 80 18 93/48 L 98 Nasal Cannula 2 12/17/24 12:02 12/17/24 13:15 12/17/24 13:15 12/17/24 12:02 12/17/24 12:02 12/17/24 12:02 12/17/24 12:02 Oxygen Flow Rate (L/min) 2 Oxygen Delivery Method Nasal Cannula Weight: 331 lb 5.676 oz Body Mass Index (BMI) 44.9 Intake & Output: Intake and Output for Last 24 Hours 12/15/24 12/16/24 12/17/24 23:59 23:59 23:59 Intake Total 50 / 50 826 / 826 Balance 50 / 50 826 / 826 Lab / Micro Data 12/16/24 05:00 12/16/24 05:00 Labs: Laboratory Results - last 24 hr 12/16/24 12:05: MRSA (PCR) Negative 12/16/24 15:00: POC Glucose 101 12/16/24 16:47: POC Glucose 110 H 12/16/24 22:14: POC Glucose 94 12/17/24 04:26: POC Glucose 77 12/17/24 06:27: POC Glucose 88 12/17/24 10:53: POC Glucose 125 H Micro: Microbiology 12/15/24 23:30 Wound - Leg, Left Gram Stain - Final 12/15/24 23:30 Wound - Leg, Left Wound Culture - Preliminary Mixed Gram Pos & Gram Neg Org 12/15/24 23:30 Wound - Leg, Left Skin and Soft Tissue MRSA/MSSA (PCR - Final Radiography Diagnostic Testing: Radiology Impression Echocardiogram 12/15/24 23:05 Interpretation Summary Mild concentric left ventricular hypertrophy. The LV ejection fraction is 65 %. Stage 1 diastolic dysfunction. There is mild biatrial dilatation. The study was technically difficult. Ordering Physician: Arlette Grigsby Referring Physician: MORGAN BARAJAS Performed By: Ada Browning RCS Physical Exam Narrative Seen and examined Blood pressure drops when he hangs his legs down because of pulling of the blood. Bilateral leg swelling better.. No fever. Denies limited symptom it was noted to be hypoglycemic yesterday Physical exam General: Alert, Oriented x3, Cooperative. Morbid obesity BMI 44.6 kg/m? HEENT: Atraumatic, PERRLA, EOMI, Normocephalic. Oral: No Gingival or Mucosal Lesions/ Ulcerations Neck: Supple, No JVD, Negative Carotid Bruits Chest wall/Lungs: Air entry diminished in bilateral lung bases. No crepitation/rhonchi Cardiovascular: Regular rate and rhythm, Normal S1,S2, No M/G/R Abdomen: Bowel Sounds Present, Soft, Non Tender, Non-Distended : No dysuria. No renal angle tenderness. No suprapubic tenderness. Extremities: No edema, Capillary Refill Less than 3 Seconds Skin: Bilateral venous congestion suggestive of venous hypertension/stasis Musculoskeletal: Bilateral lower extremity swelling up to knee level with chronic skin/subcutaneous thickening Neurological: Cranial nerves II-XII grossly intact, DTR 2+/4. No acute focal neurological deficit. Psych/Mental Status: Flat affect Assessment & Plan Assessment/Plan (1) Wound cellulitis: PLAN: Plan The patient is a 59 y/o M admitted with left foot wound that has been draining for last couple weeks but started draining #1. Left lower extremity extremity edema by BL LE venous stasis disease complicated with hypotension due to diabetic: Patient admitted in PCU. Patient started on furosemide 40 mg twice daily but got hypotensive in the afternoon 83/44. IV Lasix to be hold and if blood pressure permits then Ferrazone 40 mg twice daily. Midodrine 10 mg 3 times daily started. Discussed with the wound nurse and she thinks mainly venous congestion/edema not cellulitis. On vancomycin and Zosyn titrated down to IV ceftriaxone and doxycycline. Prelim wound culture shows 2+ GPR 12/17: Leg swelling is getting better. Now swelling up to the knee level. #2. Acute Hypoxia, suspected primarily secondary to SHAHANA, Morbid obesity hypoventilation syndrome, ECHO noted 11/19/2023 from [facility] with LV mildly dilated, moderate concentric LVH, LV systolic function normal, EF 63? percent thus will Echo 12/16/2024 suggestive of chronic HFpEF Mild concentric left ventricular hypertrophy. The LV ejection fraction is 65 %. Stage 1 diastolic dysfunction. There is mild biatrial dilatation. The study was technically difficult. 12/17 on 2 L of oxygen pulse ox 98% #3. Chronic COPD/asthma with allergic rhinitis: Current ATC duonebs, PRN albuterol, HOB, IS parameters, continue home montelukast regimen. #4. Chronic microcytic anemia/iron deficiency anemia: Admission hemoglobin 8.6,MCV 73.3, baseline hemoglobin noted previously 11/30/2024 9.4 and prior to this 03/31/2024 hemoglobin 11.7, has trended downward, currently does not appear to belisted on antiplatelet therapy, potentially bleed related, will obtain iron panel, ferritin, guaiac to be cautious and trend CBC. 12/17 H&H 7.9/19.8%. Platelet count 197K. #5. History NSVT: Will continue patient on sotalol and metoprolol regimen, following with EP cardiology per most recent cardiology note 11/19/2024. #6. CAD: Status post previous PCI LAD PTCA/bare-metal stent 2020, will continuepatient home metoprolol, lisinopril, statin therapy, clarifying antiplatelet regimen. #7. Diabetes mellitus type II complicated with hypoglycemia: A1c 5.3, glucose 42. Most recent glucose is 101, 126, 112. Hold scheduled insulin. Accu-Chek AC and at bedtime incorrigible of sliding 12/17: # He has hypoglycemia with glucose dropping to 42 in BMP. Did not gettingany insulin. On hypoglycemia protocol. #8. Anxiety and depression: = continue patient home venlafaxine and low-dose trazodone regimen with hold for sedation if necessary. #9. Hypertension: continue patient home sotalol, lisinopril IV Lasix as noted. As needed IV hydralazine. #10. Hyperlipidemia: Lipid profile shows HDL 32, LDL 23, total cholesterol 72. #11. Hypothyroidism: Status post previous thyroidectomy, resulting hypothyroidism, will continue patient home levothyroxine regimen. #12. Former tobacco usage: Encourage continued tobacco cessation. #13. Morbid Obesity: Weight loss and lifestyle changes encouraged. #14. SHAHANA: continue CPAP nightly. #15. BPH with obstructive pathology: Will continue patient on Flomax and finasteride regimen, monitor for urinary retention. #16. GERD: Will continue patient on PPI. #17. DVT prophylaxis: SCDs, clarifying why patient is not on antiplatelet therapies and given worsening anemia will hold off on chemoprophylaxis, add if workup unremarkable and noted to be clinically appropriate. #18. CODE status: Patient HCPOA and living will are not in place but he notes his daughter would be his medical decision-maker if necessary. Discussed CODE status at length including difference between FULL code, DNR-CCA and DNR-CC status. Following discussions about the differences in these status, requested Full Code status. Clinical Impression(s) from Imaging Studies Chest X-Ray 12/15/24 20:40 IMPRESSION: Findings compatible with CHF/volume overload. Reading Location: [id number] Echocardiogram 12/15/24 23:05 Interpretation Summary Mild concentric left ventricular hypertrophy. The LV ejection fraction is 65 %. Stage 1 diastolic dysfunction. There is mild biatrial dilatation. The study was technically difficult. 12/15/24 23:30 Wound - Leg, Left Gram Stain - Final Laboratory Results 12/15/24 19:00: WBC 11.5 H, RBC 4.31 L, Hgb 8.6 L, Hct 31.6 L, MCV 73.3 L, MCH 20.0 L, MCHC 27.2 L, RDW Std Deviation 53.4 H, RDW Coeff of Jovany 20.6 H, Plt Count 217, MPV 9.4, Immature Gran % (Auto) 0.300, Neut % (Auto) 78.6 H, Lymph % (Auto) 12.0 L, [place] % (Auto) 7.7, Eos % (Auto) 1.1, Baso % (Auto) 0.3, Absolute Neuts (auto) 9.0 H, Absolute Lymphs (auto) 1.38, Nucleated RBC % 0, DifferentialComment SCANNED, Platelet Estimate ADEQUATE, Polychromasia 1+, Anisocytosis 1+, Sodium 133, Potassium 4.4, Chloride 92 L, Carbon Dioxide 30.8, Anion Gap 10, BUN14, Creatinine 0.73, Estim Creat Clear Calc 165.21, Est GFR (MDRD) Non-Af 105, BUN/Creatinine Ratio 19.3, Glucose 116 H, Calcium 8.9, Magnesium 2.1, NT pro BNPII 220, Procalcitonin 0.10 12/15/24 20:57: Lactic Acid 2.2 H* 12/16/24 05:00: WBC 10.8, RBC 3.98 L, Hgb 7.9 L, Hct 29.9 L, MCV 75.1 L, MCH 19.8 L, MCHC 26.4 L, RDW Std Deviation 55.1 H, RDW Coeff of Jovany 20.4 H, Plt Count 197, MPV 9.3, Immature Gran % (Auto) 0.300, Neut % (Auto) 79.2 H, Lymph % (Auto) 11.6 L, [place] % (Auto) 7.2, Eos % (Auto) 1.3, Baso % (Auto) 0.4, Absolute Neuts (auto) 8.6 H, Absolute Lymphs (auto) 1.25, Nucleated RBC % 0, Anisocytosis2+, Sodium 137, Potassium 4.0, Chloride 96 L, Carbon Dioxide 30.2, Anion Gap 11,BUN 14, Creatinine 0.66 L, Estim Creat Clear Calc 181.02, Est GFR (MDRD) Non-Af 108, BUN/Creatinine Ratio 21.5 H, Glucose 42 L*, Hemoglobin A1c 5.3, Lactic Acid1.6, Calcium 8.3, Iron 20 L, TIBC 295, Iron Saturation 7.0 L, Unsaturated IBC 275, Ferritin 12 L, Total Bilirubin 0.49, AST 24, ALT 17, Alkaline Phosphatase 251 H, Total Protein 6.9, Albumin 3.2 L, Globulin 3.7, Albumin/Globulin Ratio 0.9, Triglycerides 83, Cholesterol 72, LDL Cholesterol, Calc 23, VLDL Cholesterol 17, HDL Cholesterol 32 L, Cholesterol/HDL Ratio 2.25, TSH 8.580 H 12/16/24 06:25: POC Glucose 39 L* 12/16/24 06:50: POC Glucose 100 12/16/24 09:01: POC Glucose 54 L 12/16/24 09:47: POC Glucose 112 H 12/16/24 11:43: POC Glucose 126 H 12/16/24 12:05: MRSA (PCR) Pending 12/16/24 15:00: POC Glucose 101 Charges/Coding Visit Charges Inpatient E&M: 67679 Subs Hosp L2 12/17/24 1410 <Electronically signed by Marcellus Gunn MD> Cosigner Signature (if applicable): CC: ~ Signed [facility] Work Phone: [phone] 636-812406-27-2025 Progress note [facility] Medical Records Department [address] [place] [id number] Progress Note - Hospitalist 12/17/24 1403 MR#: [id number] Acct: [id number] Name: DERRELL HOYT Rep #:[id number] : 1965 59 From: Marcellus Cochran PCP: UNRULY Tamez Status: ADM IN Location: [place] [id number] Reason for Visit Reason for Visit: Diagnoses Cellulitis, unspecified (12/15/24) Objective Data Objective Data Vital Signs: Vital Signs Temp Pulse Resp BP Pulse Ox O2 Del Method O2 Flow Rate 97.9 F 80 18 93/48 L 98 Nasal Cannula 2 12/17/24 12:02 12/17/24 13:15 12/17/24 13:15 12/17/24 12:02 12/17/24 12:02 12/17/24 12:02 12/17/24 12:02 Oxygen Flow Rate (L/min) 2 Oxygen Delivery Method Nasal Cannula Weight: 331 lb 5.676 oz Body Mass Index (BMI) 44.9 Intake & Output: Intake and Output for Last 24 Hours 12/15/24 12/16/24 12/17/24 23:59 23:59 23:59 Intake Total 50 50 826 / 826 Balance 50 / 50 826 / 826 Lab / Micro Data 12/16/24 05:00 12/16/24 05:00 Labs: Laboratory Results - last 24 hr 12/16/24 12:05: MRSA (PCR) Negative 12/16/24 15:00: POC Glucose 101 12/16/24 16:47: POC Glucose 110 H 12/16/24 22:14: POC Glucose 94 12/17/24 04:26: POC Glucose 77 12/17/24 06:27: POC Glucose 88 12/17/24 10:53: POC Glucose 125 H Micro: Microbiology 12/15/24 23:30 Wound - Leg, Left Gram Stain - Final 12/15/24 23:30 Wound - Leg, Left Wound Culture - Preliminary Mixed Gram Pos & Gram Neg Org 12/15/24 23:30 Wound - Leg, Left Skin and Soft Tissue MRSA/MSSA (PCR - Final Radiography Diagnostic Testing: Radiology Impression Echocardiogram 12/15/24 23:05 Interpretation Summary Mild concentric left ventricular hypertrophy. The LV ejection fraction is 65 %. Stage 1 diastolic dysfunction. There is mild biatrial dilatation. The study was technically difficult. Ordering Physician: Arlette Grigsby Referring Physician: MORGAN BARAJAS Performed By: Ada Browning RCS Physical Exam Narrative Seen and examined Blood pressure drops when he hangs his legs down because of pulling of the blood. Bilateral leg swelling better.. No fever. Denies limited symptom it was noted to be hypoglycemic yesterday Physical exam General: Alert, Oriented x3, Cooperative. Morbid obesity BMI 44.6 kg/m? HEENT: Atraumatic, PERRLA, EOMI, Normocephalic. Oral: No Gingival or Mucosal Lesions/ Ulcerations Neck: Supple, No JVD, Negative Carotid Bruits Chest wall/Lungs: Air entry diminished in bilateral lung bases. No crepitation/rhonchi Cardiovascular: Regular rate and rhythm, Normal S1,S2, No M/G/R Abdomen: Bowel Sounds Present, Soft, Non Tender, Non-Distended : No dysuria. No renal angle tenderness. No suprapubic tenderness. Extremities: No edema, Capillary Refill Less than 3 Seconds Skin: Bilateral venous congestion suggestive of venous hypertension/stasis Musculoskeletal: Bilateral lower extremity swelling up to knee level with chronic skin/subcutaneousthickening Neurological: Cranial nerves II-XII grossly intact, DTR 2+/4. No acute focal neurological deficit. Psych/Mental Status: Flat affect Assessment & Plan Assessment/Plan (1) Wound cellulitis: PLAN: Plan The patient is a 59 y/o M admitted with left foot wound that has been draining for last couple weeks but started draining #1. Left lower extremity extremity edema by BL LE venous stasis disease complicated with hypotension due to diabetic: Patient admitted in PCU. Patient started on furosemide 40 mg twice daily but got hypotensive in the afternoon 83/44. IV Lasix to be hold and if blood pressure permits then [id number] mg twice daily. Midodrine 10 mg 3 times daily started. Discussed with the wound nurse and she thinks mainly venous congestion/edema not cellulitis. On vancomycin and Zosyn titrated down to IV ceftriaxone and doxycycline. Prelim wound culture shows 2+ GPR 12/17: Leg swelling is getting better. Now swelling up to the knee level. #2. Acute Hypoxia, suspected primarily secondary to SHAHANA, Morbid obesity hypoventilation syndrome, ECHO noted 11/19/2023 from [facility] with LV mildly dilated, moderate concentric LVH, LV systolic function normal, EF 63? percent thus will Echo 12/16/2024 suggestive of chronic HFpEF Mild concentric left ventricular hypertrophy. The LV ejection fraction is 65 %. Stage 1 diastolic dysfunction. There is mild biatrial dilatation. The study was technically difficult. 12/17 on 2 L of oxygen pulse ox 98% #3. Chronic COPD/asthma with allergic rhinitis: Current ATC duonebs, PRN albuterol, HOB, IS parameters, continue home montelukast regimen. #4. Chronic microcytic anemia/iron deficiency anemia: Admission hemoglobin 8.6,MCV 73.3, baseline hemoglobin noted previously 11/30/2024 9.4 and prior to this 03/31/2024 hemoglobin 11.7, has trended downward, currently does not appear to belisted on antiplatelet therapy, potentially bleed related, will obtain iron panel, ferritin, guaiac to be cautious and trend CBC. 12/17 H&H 7.9/19.8%. Platelet count 197K. #5. History NSVT: Will continue patient on sotalol and metoprolol regimen, following with EP cardiology per most recent cardiology note 11/19/2024. #6. CAD: Status post previous PCI LAD PTCA/bare-metal stent 2020, will continuepatient home metoprolol, lisinopril, statin therapy, clarifying antiplatelet regimen. #7. Diabetes mellitus type II complicated with hypoglycemia: A1c 5.3, glucose 42. Most recent glucose is 101, 126, 112. Hold scheduled insulin. Accu-Chek AC and at bedtime incorrigible of sliding 12/17: # He has hypoglycemia with glucose dropping to 42 in BMP. Did not gettingany insulin. On hypoglycemia protocol. #8. Anxiety and depression: = continue patient home venlafaxine and low-dose trazodone regimen withhold for sedation if necessary. #9. Hypertension: continue patient home sotalol, lisinopril IV Lasix as noted. As needed IV hydralazine. #10. Hyperlipidemia: Lipid profile shows HDL 32, LDL 23, total cholesterol 72. #11. Hypothyroidism: Status post previous thyroidectomy, resulting hypothyroidism, will continue patient home levothyroxine regimen. #12. Former tobacco usage: Encourage continued tobacco cessation. #13. Morbid Obesity: Weight loss and lifestyle changes encouraged. #14. SHAHANA: continue CPAP nightly. #15. BPH with obstructive pathology: Will continue patient on Flomax and finasteride regimen, monitor for urinary retention. #16. GERD: Will continue patient on PPI. #17. DVT prophylaxis: SCDs, clarifying why patient is not on antiplatelet therapies and given worsening anemia will hold off on chemoprophylaxis, add if workup unremarkable and noted to be clinicallyappropriate. #18. CODE status: Patient HCPOA and living will are not in place but he notes his daughter would behis medical decision-maker if necessary. Discussed CODE status at length including difference between FULL code, DNR-CCA and DNR-CC status. Following discussions about the differences in these status, requested Full Code status. Clinical Impression(s) from Imaging Studies Chest X-Ray 12/15/24 20:40 IMPRESSION: Findings compatible with CHF/volume overload. Reading Location: [id number] Echocardiogram 12/15/24 23:05 Interpretation Summary Mild concentric left ventricular hypertrophy. The LV ejection fraction is 65 %. Stage 1 diastolic dysfunction. There is mild biatrial dilatation. The study was technically difficult. 12/15/24 23:30 Wound - Leg, Left Gram Stain - Final Laboratory Results 12/15/24 19:00: WBC 11.5 H, RBC 4.31 L, Hgb 8.6 L, Hct 31.6 L, MCV 73.3 L, MCH 20.0 L, MCHC 27.2 L,RDW Std Deviation 53.4 H, RDW Coeff of Jovany 20.6 H, Plt Count 217, MPV 9.4, Immature Gran % (Auto) 0.300, Neut % (Auto) 78.6 H, Lymph % (Auto) 12.0 L, [place] % (Auto) 7.7, Eos % (Auto) 1.1, Baso % (Auto) 0.3, Absolute Neuts (auto) 9.0 H, Absolute Lymphs (auto) 1.38, Nucleated RBC % 0, DifferentialComme nt SCANNED, Platelet Estimate ADEQUATE, Polychromasia 1+, Anisocytosis 1+, Sodium 133, Potassium 4.4, Chloride 92 L, Carbon Dioxide 30.8, Anion Gap 10, BUN14, Creatinine 0.73, Estim Creat Clear Calc 165.21, Est GFR (MDRD) Non-Af 105, BUN/Creatinine Ratio 19.3, Glucose 116 H, Calcium 8.9, Magnesium 2.1, NT pro BNPII 220, Procalcitonin 0.10 12/15/24 20:57: Lactic Acid 2.2 H* 12/16/24 05:00: WBC 10.8, RBC 3.98 L, Hgb 7.9 L, Hct 29.9 L, MCV 75.1 L, MCH 19.8 L, MCHC 26.4 L, RDW Std Deviation 55.1 H, RDW Coeff of Jovany 20.4 H, Plt Count 197, MPV 9.3, Immature Gran % (Auto) 0.300, Neut % (Auto) 79.2 H, Lymph % (Auto) 11.6 L, [place] % (Auto) 7.2, Eos % (Auto) 1.3, Baso % (Auto) 0.4, Absolute Neuts (auto) 8.6 H, Absolute Lymphs (auto) 1.25, Nucleated RBC % 0, Anisocytosis2+, Sodium 137, Potassium 4.0, Chloride 96 L, Carbon Dioxide 30.2, Anion Gap 11,BUN 14, Creatinine 0.66 L,Estim Creat Clear Calc 181.02, Est GFR (MDRD) Non-Af 108, BUN/Creatinine Ratio 21.5 H, Glucose 42 L*, Hemoglobin A1c 5.3, Lactic Acid1.6, Calcium 8.3, Iron 20 L, TIBC 295, Iron Saturation 7.0 L, Unsaturated IBC 275, Ferritin 12 L, Total Bilirubin 0.49, AST 24, ALT 17, Alkaline Phosphatase 251 H, Total Protein 6.9, Albumin 3.2 L, Globulin 3.7, Albumin/Globulin Ratio 0.9, Triglycerides 83, Cholesterol 72, LDL Cholesterol, Calc 23, VLDL Cholesterol 17, HDL Cholesterol 32 L, Cholesterol/HDL Ratio 2.25, TSH 8.580 H 12/16/24 06:25: POC Glucose 39 L* 12/16/24 06:50: POC Glucose 100 12/16/24 09:01: POC Glucose 54 L 12/16/24 09:47: POC Glucose 112 H 12/16/24 11:43: POC Glucose 126 H 12/16/24 12:05: MRSA (PCR) Pending 12/16/24 15:00: POC Glucose 101 Charges/Coding Visit Charges Inpatient E&M: 54351 Subs Hosp L2 12/17/24 1410 Cosigner Signature (if applicable): CC: ~ Signed [facility] Progress note Author Marcellus Gunn [facility] Note Date/Time December 16, 2024 4:02 pm [facility] Medical Records Department [address] [place] [address] Progress Note - Hospitalist 12/16/24 0922 MR#: [id number] Acct: [id number] Name: DERRELL HOYT Rep #:[id number] : 1965 59 From: Marcellus Cochran PCP: UNRULY Tamez Status: ADM IN Location: [address] 1 Reason for Visit Reason for Visit: Diagnoses Cellulitis, unspecified (12/15/24) Objective Data Objective Data Vital Signs: Vital Signs Temp Pulse Resp BP Pulse Ox O2 Del Method O2 Flow Rate 97.8 F 75 18 102/55 L 94 Nasal Cannula 2 12/16/24 08:51 12/16/24 09:14 12/16/24 08:51 12/16/24 08:51 12/16/24 08:51 12/16/24 08:51 12/16/24 08:51 Oxygen Flow Rate (L/min) 2 Oxygen Delivery Method Nasal Cannula Weight: 328 lb 11.347 oz Body Mass Index (BMI) 44.6 Intake & Output: Intake and Output for Last 24 Hours 12/14/24 12/15/24 12/16/24 23:59 23:59 23:59 Intake Total 50 / 50 790 / 790 Balance 50 / 50 790 / 790 Lab / Micro Data 12/16/24 05:00 12/16/24 05:00 Labs: Laboratory Results - last 24 hr 12/15/24 19:00: WBC 11.5 H, RBC 4.31 L, Hgb 8.6 L, Hct 31.6 L, MCV 73.3 L, MCH 20.0 L, MCHC 27.2 L, RDW Std Deviation 53.4 H, RDW Coeff of Jovany 20.6 H, Plt Count 217, MPV 9.4, Immature Gran % (Auto) 0.300, Neut % (Auto) 78.6 H, Lymph % (Auto) 12.0 L, [place] % (Auto) 7.7, Eos % (Auto) 1.1, Baso % (Auto) 0.3, Absolute Neuts (auto) 9.0 H, Absolute Lymphs (auto) 1.38, Nucleated RBC % 0, DifferentialComment SCANNED, Platelet Estimate ADEQUATE, Polychromasia 1+, Anisocytosis 1+, Sodium 133, Potassium 4.4, Chloride 92 L, Carbon Dioxide 30.8, Anion Gap 10, BUN14, Creatinine 0.73, Estim Creat Clear Calc 165.21, Est GFR (MDRD) Non-Af 105, BUN/Creatinine Ratio 19.3, Glucose 116 H, Calcium 8.9, Magnesium 2.1, NT pro BNPII 220, Procalcitonin 0.10 12/15/24 20:57: Lactic Acid 2.2 H* 12/16/24 05:00: WBC 10.8, RBC 3.98 L, Hgb 7.9 L, Hct 29.9 L, MCV 75.1 L, MCH 19.8 L, MCHC 26.4 L, RDW Std Deviation 55.1 H, RDW Coeff of Jovany 20.4 H, Plt Count 197, MPV 9.3, Immature Gran % (Auto) 0.300, Neut % (Auto) 79.2 H, Lymph % (Auto) 11.6 L, [place] % (Auto) 7.2, Eos % (Auto) 1.3, Baso % (Auto) 0.4, Absolute Neuts (auto) 8.6 H, Absolute Lymphs (auto) 1.25, Nucleated RBC % 0, Anisocytosis2+, Sodium 137, Potassium 4.0, Chloride 96 L, Carbon Dioxide 30.2, Anion Gap 11,BUN 14, Creatinine 0.66 L, Estim Creat Clear Calc 181.02, Est GFR (MDRD) Non-Af 108, BUN/Creatinine Ratio 21.5 H, Glucose 42 L*, Hemoglobin A1c 5.3, Lactic Acid1.6, Calcium 8.3, Iron 20 L, TIBC 295, Iron Saturation 7.0 L, Unsaturated IBC 275, Ferritin 12 L, Total Bilirubin 0.49, AST 24, ALT 17, Alkaline Phosphatase 251 H, Total Protein 6.9, Albumin 3.2 L, Globulin 3.7, Albumin/Globulin Ratio 0.9, Triglycerides 83, Cholesterol 72, LDL Cholesterol, Calc 23, VLDL Cholesterol 17, HDL Cholesterol 32 L, Cholesterol/HDL Ratio 2.25, TSH 8.580 H 12/16/24 06:25: POC Glucose 39 L* 12/16/24 06:50: POC Glucose 100 Radiography Diagnostic Testing: Radiology Impression Chest X-Ray 12/15/24 20:40 IMPRESSION: Findings compatible with CHF/volume overload. Reading Location: [facility] Physical Exam Narrative Seen and examined Bilateral leg swelling. No fever. Denies limited symptom it was noted to be hypoglycemic yesterday Physical exam General: Alert, Oriented x3, Cooperative. Morbid obesity BMI 44.6 kg/m? HEENT: Atraumatic, PERRLA, EOMI, Normocephalic. Oral: No Gingival or Mucosal Lesions/ Ulcerations Neck: Supple, No JVD, Negative Carotid Bruits Chest wall/Lungs: Air entry diminished in bilateral lung bases. No crepitation/rhonchi Cardiovascular: Regular rate and rhythm, Normal S1,S2, No M/G/R Abdomen: Bowel Sounds Present, Soft, Non Tender, Non-Distended : No dysuria. No renal angle tenderness. No suprapubic tenderness. Extremities: No edema, Capillary Refill Less than 3 Seconds Skin: Bilateral venous congestion suggestive of venous hypertension/stasis Musculoskeletal: Bilateral lower extremity swelling up to thigh level with chronic skin/subcutaneous thickening Neurological: Cranial nerves II-XII grossly intact, DTR 2+/4. No acute focal neurological deficit. Psych/Mental Status: Flat affect Assessment & Plan Assessment/Plan (1) Wound cellulitis: PLAN: Plan The patient is a 59 y/o M admitted with left foot wound that has been draining for last couple weeks but started draining #1. Left lower extremity extremity edema by BL LE venous stasis disease complicated with hypotension due to diabetic: Patient admitted in PCU. Patient started on furosemide 40 mg twice daily but got hypotensive in the afternoon 83/44. IV Lasix to be hold and if blood pressure permits then Ferrazone 40 mg twice daily. Midodrine 10 mg 3 times daily started. Discussed with the wound nurse and she thinks mainly venous congestion/edema not cellulitis. On vancomycin and Zosyn titrated down to IV ceftriaxone and doxycycline. Prelim wound culture shows 2+ GPR #2. Acute Hypoxia, suspected primarily secondary to SHAHANA, Morbid obesity hypoventilation syndrome, ECHO noted 11/19/2023 from [facility] with LV mildly dilated, moderate concentric LVH, LV systolic function normal, EF 63? percent thus will Echo 12/16/2024 suggestive of chronic HFpEF Mild concentric left ventricular hypertrophy. The LV ejection fraction is 65 %. Stage 1 diastolic dysfunction. There is mild biatrial dilatation. The study was technically difficult. #3. Chronic COPD/asthma with allergic rhinitis: Current ATC duonebs, PRN albuterol, HOB, IS parameters, continue home montelukast regimen. #4. Chronic microcytic anemia/iron deficiency anemia: Admission hemoglobin 8.6,MCV 73.3, baseline hemoglobin noted previously 11/30/2024 9.4 and prior to this 03/31/2024 hemoglobin 11.7, has trended downward, currently does not appear to belisted on antiplatelet therapy, potentially bleed related, will obtain iron panel, ferritin, guaiac to be cautious and trend CBC. #5. History NSVT: Will continue patient on sotalol and metoprolol regimen, following with EP cardiology per most recent cardiology note 11/19/2024. #6. CAD: Status post previous PCI LAD PTCA/bare-metal stent 2020, will continuepatient home metoprolol, lisinopril, statin therapy, clarifying antiplatelet regimen. #7. Diabetes mellitus type II complicated with hypoglycemia: A1c 5.3, glucose 42. Most recent glucose is 101, 126, 112. Hold scheduled insulin. Accu-Chek AC and at bedtime incorrigible of sliding #8. Anxiety and depression: Will continue patient home venlafaxine and low-dosetrazodone regimen with hold for sedation if necessary. #9. Hypertension: continue patient home sotalol, lisinopril IV Lasix as noted. As needed IV hydralazine. #10. Hyperlipidemia: Lipid profile shows HDL 32, LDL 23, total cholesterol 72. #11. Hypothyroidism: Status post previous thyroidectomy, resulting hypothyroidism, will continue patient home levothyroxine regimen. #12. Former tobacco usage: Encourage continued tobacco cessation. #13. Morbid Obesity: Weight loss and lifestyle changes encouraged. #14. SHAHANA: Will continue CPAP nightly. #15. BPH with obstructive pathology: Will continue patient on Flomax and finasteride regimen, monitor for urinary retention. #16. GERD: Will continue patient on PPI. #17. DVT prophylaxis: SCDs, clarifying why patient is not on antiplatelet therapies and given worsening anemia will hold off on chemoprophylaxis, add if workup unremarkable and noted to be clinically appropriate. #18. CODE status: Patient HCPOA and living will are not in place but he notes his daughter would be his medical decision-maker if necessary. Discussed CODE status at length including difference between FULL code, DNR-CCA and DNR-CC status. Following discussions about the differences in these status, requested Full Code status. Clinical Impression(s) from Imaging Studies Chest X-Ray 12/15/24 20:40 IMPRESSION: Findings compatible with CHF/volume overload. Reading Location: [facility] Echocardiogram 12/15/24 23:05 Interpretation Summary Mild concentric left ventricular hypertrophy. The LV ejection fraction is 65 %. Stage 1 diastolic dysfunction. There is mild biatrial dilatation. The study was technically difficult. 12/15/24 23:30 Wound - Leg, Left Gram Stain - Final Laboratory Results 12/15/24 19:00: WBC 11.5 H, RBC 4.31 L, Hgb 8.6 L, Hct 31.6 L, MCV 73.3 L, MCH 20.0 L, MCHC 27.2 L, RDW Std Deviation 53.4 H, RDW Coeff of Jovany 20.6 H, Plt Count 217, MPV 9.4, Immature Gran % (Auto) 0.300, Neut % (Auto) 78.6 H, Lymph % (Auto) 12.0 L, [place] % (Auto) 7.7, Eos % (Auto) 1.1, Baso % (Auto) 0.3, Absolute Neuts (auto) 9.0 H, Absolute Lymphs (auto) 1.38, Nucleated RBC % 0, DifferentialComment SCANNED, Platelet Estimate ADEQUATE, Polychromasia 1+, Anisocytosis 1+, Sodium 133, Potassium 4.4, Chloride 92 L, Carbon Dioxide 30.8, Anion Gap 10, BUN14, Creatinine 0.73, Estim Creat Clear Calc 165.21, Est GFR (MDRD) Non-Af 105, BUN/Creatinine Ratio 19.3, Glucose 116 H, Calcium 8.9, Magnesium 2.1, NT pro BNPII 220, Procalcitonin 0.10 12/15/24 20:57: Lactic Acid 2.2 H* 12/16/24 05:00: WBC 10.8, RBC 3.98 L, Hgb 7.9 L, Hct 29.9 L, MCV 75.1 L, MCH 19.8 L, MCHC 26.4 L, RDW Std Deviation 55.1 H, RDW Coeff of Jovany 20.4 H, Plt Count 197, MPV 9.3, Immature Gran % (Auto) 0.300, Neut % (Auto) 79.2 H, Lymph % (Auto) 11.6 L, [place] % (Auto) 7.2, Eos % (Auto) 1.3, Baso % (Auto) 0.4, Absolute Neuts (auto) 8.6 H, Absolute Lymphs (auto) 1.25, Nucleated RBC % 0, Anisocytosis2+, Sodium 137, Potassium 4.0, Chloride 96 L, Carbon Dioxide 30.2, Anion Gap 11,BUN 14, Creatinine 0.66 L, Estim Creat Clear Calc 181.02, Est GFR (MDRD) Non-Af 108, BUN/Creatinine Ratio 21.5 H, Glucose 42 L*, Hemoglobin A1c 5.3, Lactic Acid1.6, Calcium 8.3, Iron 20 L, TIBC 295, Iron Saturation 7.0 L, Unsaturated IBC 275, Ferritin 12 L, Total Bilirubin 0.49, AST 24, ALT 17, Alkaline Phosphatase 251 H, Total Protein 6.9, Albumin 3.2 L, Globulin 3.7, Albumin/Globulin Ratio 0.9, Triglycerides 83, Cholesterol 72, LDL Cholesterol, Calc 23, VLDL Cholesterol 17, HDL Cholesterol 32 L, Cholesterol/HDL Ratio 2.25, TSH 8.580 H 12/16/24 06:25: POC Glucose 39 L* 12/16/24 06:50: POC Glucose 100 12/16/24 09:01: POC Glucose 54 L 12/16/24 09:47: POC Glucose 112 H 12/16/24 11:43: POC Glucose 126 H 12/16/24 12:05: MRSA (PCR) Pending 12/16/24 15:00: POC Glucose 101 Charges/Coding Visit Charges Inpatient E&M: 96789 Subs Hosp L2 12/16/24 1602 <Electronically signed by Marcellus Gunn MD> Cosigner Signature (if applicable): CC: ~ Signed [facility] Work Phone: 1(827) 561-591506-26-2025 Progress note [facility] Medical Records Department [address] [place] [address] Progress Note - Hospitalist 12/16/2422 MR#: [id number] Acct: [id number] Name: DERRELL HOYT Rep #:[id number] : 1965 59 From: Marcellus Cochran PCP: UNRULY Tamez Status: ADM IN Location: [place] [address] Reason for Visit Reason for Visit: Diagnoses Cellulitis, unspecified (12/15/24) Objective Data Objective Data Vital Signs: Vital Signs Temp Pulse Resp BP Pulse Ox O2 Del Method O2 Flow Rate 97.8 F 75 18 102/55 L 94 Nasal Cannula 2 12/16/24 08:51 12/16/24 09:14 12/16/24 08:51 12/16/24 08:51 12/16/24 08:51 12/16/24 08:51 12/16/24 08:51 Oxygen Flow Rate (L/min) 2 Oxygen Delivery Method Nasal Cannula Weight: 328 lb 11.347 oz Body Mass Index (BMI) 44.6 Intake & Output: Intake and Output for Last 24 Hours 12/14/24 12/15/24 12/16/24 23:59 23:59 23:59 Intake Total 50 / 50 790 / 790 Balance 50 / 50 790 / 790 Lab / Micro Data 12/16/24 05:00 12/16/24 05:00 Labs: Laboratory Results - last 24 hr 12/15/24 19:00: WBC 11.5 H, RBC 4.31 L, Hgb 8.6 L, Hct 31.6 L, MCV 73.3 L, MCH 20.0 L, MCHC 27.2 L,RDW Std Deviation 53.4 H, RDW Coeff of Jovany 20.6 H, Plt Count 217, MPV 9.4, Immature Gran % (Auto) 0.300, Neut % (Auto) 78.6 H, Lymph % (Auto) 12.0 L, [place] % (Auto) 7.7, Eos % (Auto) 1.1, Baso % (Auto) 0.3, Absolute Neuts (auto) 9.0 H, Absolute Lymphs (auto) 1.38, Nucleated RBC % 0, DifferentialComme nt SCANNED, Platelet Estimate ADEQUATE, Polychromasia 1+, Anisocytosis 1+, Sodium 133, Potassium 4.4, Chloride 92 L, Carbon Dioxide 30.8, Anion Gap 10, BUN14, Creatinine 0.73, Estim Creat Clear Calc 165.21, Est GFR (MDRD) Non-Af 105, BUN/Creatinine Ratio 19.3, Glucose 116 H, Calcium 8.9, Magnesium 2.1, NT pro BNPII 220, Procalcitonin 0.10 12/15/24 20:57: Lactic Acid 2.2 H* 12/16/24 05:00: WBC 10.8, RBC 3.98 L, Hgb 7.9 L, Hct 29.9 L, MCV 75.1 L, MCH 19.8 L, MCHC 26.4 L, RDW Std Deviation 55.1 H, RDW Coeff of Jovany 20.4 H, Plt Count 197, MPV 9.3, Immature Gran % (Auto) 0.300, Neut % (Auto) 79.2 H, Lymph % (Auto) 11.6 L, [place] % (Auto) 7.2, Eos % (Auto) 1.3, Baso % (Auto) 0.4, Absolute Neuts (auto) 8.6 H, Absolute Lymphs (auto) 1.25, Nucleated RBC % 0, Anisocytosis2+, Sodium 137, Potassium 4.0, Chloride 96 L, Carbon Dioxide 30.2, Anion Gap 11,BUN 14, Creatinine 0.66 L,Estim Creat Clear Calc 181.02, Est GFR (MDRD) Non-Af 108, BUN/Creatinine Ratio 21.5 H, Glucose 42 L*, Hemoglobin A1c 5.3, Lactic Acid1.6, Calcium 8.3, Iron 20 L, TIBC 295, Iron Saturation 7.0 L, Unsaturated IBC 275, Ferritin 12 L, Total Bilirubin 0.49, AST 24, ALT 17, Alkaline Phosphatase 251 H, Total Protein 6.9, Albumin 3.2 L, Globulin 3.7, Albumin/Globulin Ratio 0.9, Triglycerides 83, Cholesterol 72, LDL Cholesterol, Calc 23, VLDL Cholesterol 17, HDL Cholesterol 32 L, Cholesterol/HDL Ratio 2.25, TSH 8.580 H 12/16/24 06:25: POC Glucose 39 L* 12/16/24 06:50: POC Glucose 100 Radiography Diagnostic Testing: Radiology Impression Chest X-Ray 12/15/24 20:40 IMPRESSION: Findings compatible with CHF/volume overload. Reading Location: [facility] Physical Exam Narrative Seen and examined Bilateral leg swelling. No fever. Denies limited symptom it was noted to be hypoglycemic yesterday Physical exam General: Alert, Oriented x3, Cooperative. Morbid obesity BMI 44.6 kg/m? HEENT: Atraumatic, PERRLA, EOMI, Normocephalic. Oral: No Gingival or Mucosal Lesions/ Ulcerations Neck: Supple, No JVD, Negative Carotid Bruits Chest wall/Lungs: Air entry diminished in bilateral lung bases. No crepitation/rhonchi Cardiovascular: Regular rate and rhythm, Normal S1,S2, No M/G/R Abdomen: Bowel Sounds Present, Soft, Non Tender, Non-Distended : No dysuria. No renal angle tenderness. No suprapubic tenderness. Extremities: No edema, Capillary Refill Less than 3 Seconds Skin: Bilateral venous congestion suggestive of venous hypertension/stasis Musculoskeletal: Bilateral lower extremity swelling up to thigh level with chronic skin/subcutaneous thickening Neurological: Cranial nerves II-XII grossly intact, DTR 2+/4. No acute focal neurological deficit. Psych/Mental Status: Flat affect Assessment & Plan Assessment/Plan (1) Wound cellulitis: PLAN: Plan The patient is a 59 y/o M admitted with left foot wound that has been draining for last couple weeks but started draining #1. Left lower extremity extremity edema by BL LE venous stasis disease complicated with hypotension due to diabetic: Patient admitted in PCU. Patient started on furosemide 40 mg twice daily but got hypotensive in the afternoon 83/44. IV Lasix to be hold and if blood pressure permits then [id number] mg twice daily. Midodrine 10 mg 3 times daily started. Discussed with the wound nurse and she thinks mainly venous congestion/edema not cellulitis. On vancomycin and Zosyn titrated down to IV ceftriaxone and doxycycline. Prelim wound culture shows 2+ GPR #2. Acute Hypoxia, suspected primarily secondary to SHAHANA, Morbid obesity hypoventilation syndrome, ECHO noted 11/19/2023 from [facility] with LV mildly dilated, moderate concentric LVH, LV systolic function normal, EF 63? percent thus will Echo 12/16/2024 suggestive of chronic HFpEF Mild concentric left ventricular hypertrophy. The LV ejection fraction is 65 %. Stage 1 diastolic dysfunction. There is mild biatrial dilatation. The study was technically difficult. #3. Chronic COPD/asthma with allergic rhinitis: Current ATC duonebs, PRN albuterol, HOB, IS parameters, continue home montelukast regimen. #4. Chronic microcytic anemia/iron deficiency anemia: Admission hemoglobin 8.6,MCV 73.3, baseline hemoglobin noted previously 11/30/2024 9.4 and prior to this 03/31/2024 hemoglobin 11.7, has trended downward, currently does not appear to belisted on antiplatelet therapy, potentially bleed related, will obtain iron panel, ferritin, guaiac to be cautious and trend CBC. #5. History NSVT: Will continue patient on sotalol and metoprolol regimen, following with EP cardiology per most recent cardiology note 11/19/2024. #6. CAD: Status post previous PCI LAD PTCA/bare-metal stent 2020, will continuepatient home metoprolol, lisinopril, statin therapy, clarifying antiplatelet regimen. #7. Diabetes mellitus type II complicated with hypoglycemia: A1c 5.3, glucose 42. Most recent glucose is 101, 126, 112. Hold scheduled insulin. Accu-Chek AC and at bedtime incorrigible of sliding #8. Anxiety and depression: Will continue patient home venlafaxine and low- dosetrazodone regimen with hold for sedation if necessary. #9. Hypertension: continue patient home sotalol, lisinopril IV Lasix as noted. As needed IV hydralazine. #10. Hyperlipidemia: Lipid profile shows HDL 32, LDL 23, total cholesterol 72. #11. Hypothyroidism: Status post previous thyroidectomy, resulting hypothyroidism, will continue patient home levothyroxine regimen. #12. Former tobacco usage: Encourage continued tobacco cessation. #13. Morbid Obesity: Weight loss and lifestyle changes encouraged. #14. SHAHANA: Will continue CPAP nightly. #15. BPH with obstructive pathology: Will continue patient on Flomax and finasteride regimen, monitor for urinary retention. #16. GERD: Will continue patient on PPI. #17. DVT prophylaxis: SCDs, clarifying why patient is not on antiplatelet therapies and given worsening anemia will hold off on chemoprophylaxis, add if workup unremarkable and noted to be clinicallyappropriate. #18. CODE status: Patient HCPOA and living will are not in place but he notes his daughter would behis medical decision-maker if necessary. Discussed CODE status at length including difference between FULL code, DNR-CCA and DNR-CC status. Following discussions about the differences in these status, requested Full Code status. Clinical Impression(s) from Imaging Studies Chest X-Ray 12/15/24 20:40 IMPRESSION: Findings compatible with CHF/volume overload. Reading Location: [id number] Echocardiogram 12/15/24 23:05 Interpretation Summary Mild concentric left ventricular hypertrophy. The LV ejection fraction is 65 %. Stage 1 diastolic dysfunction. There is mild biatrial dilatation. The study was technically difficult. 12/15/24 23:30 Wound - Leg, Left Gram Stain - Final Laboratory Results 12/15/24 19:00: WBC 11.5 H, RBC 4.31 L, Hgb 8.6 L, Hct 31.6 L, MCV 73.3 L, MCH 20.0 L, MCHC 27.2 L,RDW Std Deviation 53.4 H, RDW Coeff of Jovany 20.6 H, Plt Count 217, MPV 9.4, Immature Gran % (Auto) 0.300, Neut % (Auto) 78.6 H, Lymph % (Auto) 12.0 L, [place] % (Auto) 7.7, Eos % (Auto) 1.1, Baso % (Auto) 0.3, Absolute Neuts (auto) 9.0 H, Absolute Lymphs (auto) 1.38, Nucleated RBC % 0, DifferentialComme nt SCANNED, Platelet Estimate ADEQUATE, Polychromasia 1+, Anisocytosis 1+, Sodium 133, Potassium 4.4, Chloride 92 L, Carbon Dioxide 30.8, Anion Gap 10, BUN14, Creatinine 0.73, Estim Creat Clear Calc 165.21, Est GFR (MDRD) Non-Af 105, BUN/Creatinine Ratio 19.3, Glucose 116 H, Calcium 8.9, Magnesium 2.1, NT pro BNPII 220, Procalcitonin 0.10 12/15/24 20:57: Lactic Acid 2.2 H* 12/16/24 05:00: WBC 10.8, RBC 3.98 L, Hgb 7.9 L, Hct 29.9 L, MCV 75.1 L, MCH 19.8 L, MCHC 26.4 L, RDW Std Deviation 55.1 H, RDW Coeff of Jovany 20.4 H, Plt Count 197, MPV 9.3, Immature Gran % (Auto) 0.300, Neut % (Auto) 79.2 H, Lymph % (Auto) 11.6 L, [place] % (Auto) 7.2, Eos % (Auto) 1.3, Baso % (Auto) 0.4, Absolute Neuts (auto) 8.6 H, Absolute Lymphs (auto) 1.25, Nucleated RBC % 0, Anisocytosis2+, Sodium 137, Potassium 4.0, Chloride 96 L, Carbon Dioxide 30.2, Anion Gap 11,BUN 14, Creatinine 0.66 L,Estim Creat Clear Calc 181.02, Est GFR (MDRD) Non-Af 108, BUN/Creatinine Ratio 21.5 H, Glucose 42 L*, Hemoglobin A1c 5.3, Lactic Acid1.6, Calcium 8.3, Iron 20 L, TIBC 295, Iron Saturation 7.0 L, Unsaturated IBC 275, Ferritin 12 L, Total Bilirubin 0.49, AST 24, ALT 17, Alkaline Phosphatase 251 H, Total Protein 6.9, Albumin 3.2 L, Globulin 3.7, Albumin/Globulin Ratio 0.9, Triglycerides 83, Cholesterol 72, LDL Cholesterol, Calc 23, VLDL Cholesterol 17, HDL Cholesterol 32 L, Cholesterol/HDL Ratio 2.25, TSH 8.580 H 12/16/24 06:25: POC Glucose 39 L* 12/16/24 06:50: POC Glucose 100 12/16/24 09:01: POC Glucose 54 L 12/16/24 09:47: POC Glucose 112 H 12/16/24 11:43: POC Glucose 126 H 12/16/24 12:05: MRSA (PCR) Pending 12/16/24 15:00: POC Glucose 101 Charges/Coding Visit Charges Inpatient E&M: 66083 Subs Hosp L2 12/16/24 1602 Cosigner Signature (if applicable): CC: ~ Signed [facility]06-26-2025 Consult note Author Nain David [facility] Note Date/Time December 16, 2024 12:4 7am [facility] Medical Records Department [address] [place] [address] Pharmacokinetic/Renal -Consult 12/16/24 0046 MR#: [id number] Acct: [id number] Name: DERRELL HOYT Rep #:[id number] : 1965 59 From: Nain Layne od PCP: Morgan Barajas, [employer]ING [employer]TE[employer]IC-C Status: ADM IN Location: [place] [address] Consult Antibiotic Management Pharmacy has been consulted to manage selected antibiotic: Vancomycin Type of Intervention Type of Consult: Follow-up Labs Labs: Sodium 133 mmol/L (133-145) 12/15/24 19:00 Potassium 4.4 mmol/L (3.3-5.1) 12/15/24 19:00 Chloride 92 mmol/L (98-108) L 12/15/24 19:00 Carbon Dioxide 30.8 mmol/L (21.0-32.0) 12/15/24 19:00 Anion Gap 10 (5-15) 12/15/24 19:00 BUN 14 mg/dL (4-19) 12/15/24 19:00 Creatinine 0.73 mg/dL (0.70-1.20) 12/15/24 19:00 Est GFR (MDRD) Non-Af 105 (>60) 12/15/24 19:00 BUN/Creatinine Ratio 19.3 RATIO (10-20) 12/15/24 19:00 Glucose 116 mg/dL (70-99) H 12/15/24 19:00 Dosing Weight Weight used for dosin kg Estimated Creatinine Clearance Estimated Creatinine Clearance: 165 Goal Trough Goal Trough: 15-20 mcg/mL Pharmacy Plan for Drug Dosing Pharmacy Plan for Drug Dosing: Pharmacy Service will continue to monitor and adjust dosing as required. LOADING DOSE 2GM GIVEN 12/16 @ 0000. START 1500MG Q8H AND DRAW TROUGH PRIOR TO 4TH DOSE Follow-Up Labs Follow-Up Labs: Trough: Vancomycin Date/Time Labs Ordered Labs to be done on [date and time ordered]: 12/16 @ 2330 12/16/24 0047 <Electronically signed by Nain monet> Date _ Nain David Cosigner Signature (if applicable): Date CC: ~ Signed [facility] Work Phone: 1(856) 319-699106-26-2025 History and physical note Author Arlette Grigsby [facility] Note Date/Time December 15, 2024 11:0 6pm [facility] Medical Records Department [address] [place] [address] H&P Exam - Hospitalist 12/15/242222 MR#: [id number] Acct: [id number] Name: DERRELL HOYT Rep #:[id number] : 1965 59 From: Arlette Grigsby MD PCP: Morgan Barajas, MANUFA[employer]URING [employer]TENA[employer]CE MECH[employer]IC-C Status: ADM IN Location: [place] [address] HPI - General General Date of Admission: 12/15/24 Date of Service: 12/15/24 Chief Complaint: Worsening BL LE edema, LLE wound, increased pain, drainage. HPI Narrative The patient is a 59 y/o M w/ PMHx: Morbid obesity, BPH with obstructive pathology HTN, HLD, Hypothyroidism, IDDM, SHAHANA on CPAP, Chronic microcytic anemia/Fe deficiency anemia, Former tobacco use, Asthma/COPD, CAD s/p PCI who presents to the [facility] ED on 12/15/2024 with history of left lower extremity wounds noted to have worsened over the past week with self application of creams and dressings unclear of exactly what it is but following with podiatry however they become a red and are draining and mildly uncomfortable with no fevers or chills but given persistent worsening appearanceprompted ED evaluation. Patient does have worsening bilateral lower extremity swelling with chronic orthopnea he notes. Review of weights in the system note 11/30/2024 weight 338 and now upon current presentation 12/15/2024 weight 334. Ian report chronic orthopnea and has had increased bilateral lower extremity swelling but does report that he chronically has increased swelling more so to the left greater than the right. He is unsure of who from podiatry he has been following with outpatient. Patient reports that his left lower extremity primarily throbs and rates the discomfort 4 out of 10 in severity. He denies any severe dyspnea sensation but is chronically dyspneic with activity. Workup in the ED included T99.1 Oral, heart rate 89, BP 122/70, respiratory rate 20, initially 90% on room air however desaturated down to 77% with improvement to 97% on 2 L nasal cannula, CBC with WC 11.5, he one 8.6, MCV 73.3, platelet 217 with left shift, BMP with chloride 92, BUN/Willie 14/0.73, GFR 105, glucose 116,lactic acid 2.2, NT proBNP 220, chest x-ray with questionable pulmonary vascularcongestion with stable moderate cardiomegaly. In the ED patient ministered IV Unasyn 3 g IV x 1, Zosyn 3.375 g IV x 1, Lasix 40 mg IV x 1. [facility] Medical History Redness of skin Thyroid disease [...] encounter Tumor Atherosclerosis of coronary artery of [place] heart without angina pectoris Kidney stones COPD [...] 10 mg tablet 10 mg PO QHS PRN ALLERGIES 0 01/10/22 12/29/23 History (Singulair) guaifenesin 600 mg tablet, 600 mg PO [...] 11/11/24 Unknown History sennosides 8.6 mg tablet (Greer-danyel) 17.2 mg PO QDAY Unknown History trazodone 50 mg tablet 150 mg PO QHS SLEEP 11/11/24 Unknown History bisacodyl 10 mg rectal suppository 10 mg AR ONCE PRN c onstipation 11/19/24 Unknown History [...] ID PRN dry skin 11/30/24 Unknown History magnesium hydroxide 400 mg/5 mL 30 ml [...] Allergies Allergy Verified 11/19/24 11:00 Family History Father Heart disease Hypertension Mother Brain aneurysm Surgical History History of cardiac catheterization Hx [...] caffeine: Yes Type: carbonated beverages ROS ROS Narrative Admission Review of Systems: CONSTITUTIONAL: No weight loss, fever, chills, +weakness or fatigue. HEENT: Eyes: No visual loss, blurred vision, double vision or yellow sclerae. Ears, Nose, Throat: No hearing loss, sneezing, congestion, runny nose or sore throat. SKIN: No rash or itching, lesions except + worsening bilateral lower extremity venous stasis disease with left lower extremity stasis blister with eventual stasis ulceration with drainage, purulent appearing, odor. CARDIOVASCULAR: No chest pain, chest pressure or chest discomfort, palpitations,edema, orthopnea, syncopal events. RESPIRATORY: + Increased lower extremity swelling, orthopnea, occasional dyspnea. No marked cough, productive sputum, wheezing or hemoptysis. GASTROINTESTINAL: No anorexia, nausea, vomiting or diarrhea, abdominal pain, melena, BRBPR. GENITOURINARY: No dysuria, frequency, urgency or retention. NEUROLOGICAL: No headache, dizziness, syncope, paralysis, ataxia, numbness or tingling in the extremities, focal weakness, change in bowel or bladder control,seizure. MUSCULOSKELETAL: + muscle, back pain, joint pain or stiffness. HEMATOLOGIC: + Chronic anemia, easy bleeding/bruising. LYMPHATICS: No enlarged nodes. No history of splenectomy. PSYCHIATRIC: No history of depression or anxiety. ENDOCRINOLOGIC: No reports of sweating, cold or heat intolerance. No polyuria orpolydipsia. ALLERGIES: + History of asthma, allergic rhinitis. Vital Signs Vital Signs Vital Signs: 12/15/24 18:39 12/15/24 20:00 12/15/24 20:05 Temperature 99.1 F 98.5 F Temperature Source Oral Oral Pulse Rate 89 82 Respiratory Rate 20 H 18 Respiratory Effort Respiratory Pattern Blood Pressure 132/70 H 126/58 H Blood Pressure Mean 90 80 Pulse Ox 90 77 90 Oxygen Delivery Method Room Air Room Air Room Air Oxygen Flow Rate (L/min) 12/15/24 20:05 12/15/24 20:07 12/15/24 20:10 Temperature Temperature Source Pulse Rate Respiratory Rate Respiratory Effort Respiratory Pattern Blood Pressure Blood Pressure Mean Pulse Ox 90 87 96 Oxygen Delivery Method Room Air Room Air Nasal Cannula Oxygen Flow Rate (L/min) 2 12/15/24 20:15 12/15/24 20:20 12/15/24 20:26 Temperature Temperature Source Pulse Rate Respiratory Rate Respiratory Effort Normal Non-Labored Respiratory Pattern Normal Blood Pressure Blood Pressure Mean Pulse Ox 97 90 Oxygen Delivery Method Nasal Cannula Room Air Oxygen Flow Rate (L/min) 2 12/15/24 21:00 12/15/24 22:00 12/15/24 22:00 Temperature 98.4 F 98.4 F 98.4 F Temperature Source Oral Oral Pulse Rate 79 79 79 Respiratory Rate 18 18 18 Respiratory Effort Respiratory Pattern Blood Pressure 100/51 L 106/57 L 100/51 L Blood Pressure Mean 67 73 67 Pulse Ox 92 91 91 Oxygen Delivery Method Room Air Room Air Oxygen Flow Rate (L/min) Weight Weight: 334 lb 3.532 oz Body Mass Index (BMI) 45.3 Physical Exam Narrative Physical Examination: General: Awake, alert, oriented x 3 and cooperative, seated upright in ED bed, leaning forward, notes he cannot lay back because of dyspnea, notes some throbbing discomfort to the left lower extremity rating it 4 out of 10. Skin: Normal color, normal turgor, no icterus, no cyanosis except for significant bilateral lower extremity venous stasis skin changes, notable bilateral lichenification, left lower extremity lateral distal stasis wound withpurulent discharge with mild odor noted with mild periwound increased erythema beyond the stasis changes. HEENT: AT/NC, EOMI, PERRLA, MMM, difficult to discern carotid bruit and JVD given thickened neck and frances. Lungs: Diminished, greater bases, mildly increased respiratory rate but no distress, despite chest x-ray unable to appreciate any rales, rhonchi or wheezing. Heart: Regular rate and rhythm; no gallop, rub audible. Abdomen: Soft, morbidly obese, distant BS, difficult to discern distention and HSM given habitus. Extremities: No cyanosis, no cyanosis, see skin, chronic significant bilateral lower extremity lymphedema. Neurological: Patient awake, alert, oriented as noted, cognitive function intact; pupils equally reactive to light and accommodation, cranial nerves grossly ormal, moving all 4 extremities, no focal deficits, strength moderately to severely global decreased Psychiatric: Affect appears fatigued, no acute evidence of depressive or anxietyfeelings. Results Lab / Micro Data 12/15/24 19:00 12/15/24 19:00 Labs: Laboratory Results - last 24 hr 12/15/24 19:00: WBC 11.5 H, RBC 4.31 L, Hgb 8.6 L, Hct 31.6 L, MCV 73.3 L, MCH 20.0 L, MCHC 27.2 L, RDW Std Deviation 53.4 H, RDW Coeff of Jovany 20.6 H, Plt Count 217, MPV 9.4, Immature Gran % (Auto) 0.300, Neut % (Auto) 78.6 H, Lymph % (Auto) 12.0 L, [place] % (Auto) 7.7, Eos % (Auto) 1.1, Baso % (Auto) 0.3, Absolute Neuts (auto) 9.0 H, Absolute Lymphs (auto) 1.38, Nucleated RBC % 0, DifferentialComment SCANNED, Platelet Estimate ADEQUATE, Polychromasia 1+, Anisocytosis 1+, Sodium 133, Potassium 4.4, Chloride 92 L, Carbon Dioxide 30.8, Anion Gap 10, BUN14, Creatinine 0.73, Estim Creat Clear Calc 165.21, Est GFR (MDRD) Non-Af 105, BUN/Creatinine Ratio 19.3, Glucose 116 H, Calcium 8.9, NT pro BNP II 220 12/15/24 20:57: Lactic Acid 2.2 H* Imaging Radiology Impression Chest X-Ray 12/15/24 20:40 IMPRESSION: Findings compatible with CHF/volume overload. Reading Location: [id number] Assessment & Plan Assessment/Plan (1) Wound cellulitis: PLAN: Plan The patient is a 59 y/o M w/ PMHx: Morbid obesity, BPH with obstructive pathology HTN, HLD, Hypothyroidism, IDDM, SHAHANA on CPAP, Chronic microcytic anemia/Fe deficiency anemia, Former tobacco use, Asthma/COPD, CAD s/p PCI who presents to the [facility] ED on 12/15/2024 with history of left lower extremity wounds noted to have worsened over the past week with self application of creams and dressings unclear of exactly what it is but following with podiatry however they become a red and are draining and mildly uncomfortable with no fevers or chills but given persistent worsening appearanceprompted ED evaluation. #1. Left lower extremity concern for infected stasis wound with mild lactic acidosis complicated by BL LE venous stasis disease and #2 potentially as noted:Given stasis wounds with significant discharge, mildly foul odor and mild WC elevation with left shift, will admit to PCU given concurrent #2, maintain on IVVanco and Zosyn pending wound culture and wound MRSA PCR with de-escalation of antibiotic therapy and narrowing as able, will continue to trend CBC, continue affected extremity elevation above heart when seated and in bed, monitor erythema outline with VS checks, low threshold to obtain duplex US to assure no DVT concurrently. Wound care consulted. Will continue diuresis given this presentation but also #2, will place neck darell wraps with elevation of patient able to tolerate. #2. Acute Hypoxia, suspected primarily secondary to SHAHANA, Morbid obesity hypoventilation syndrome, but certainly could be component volume overload/HFpEFexacerbation but uncertain (given habitus do not always expect elevated BNP level) complicated by #3: Patient administered IV lasix in the ED, maintain on cardiac telemetry, continue IV lasix diuresis, monitor I/Os, maintain on intake restriction, continue medical therapy but clarifying antiplatelet therapy history and given worsening anemia we will hold off on adding pending anemia evaluation as noted, obtain TSH and magnesium level. Most recent ECHO noted 11/19/2023 from [facility] with LV mildly dilated, moderate concentric LVH, LV systolic function normal, EF 63? percent thus will request repeat. #3. Chronic COPD/asthma with allergic rhinitis: Will maintain on oxygen with wean as tolerated to room air complicated by presentation as noted #1, will temporally hold on inhaler in the interim will maintain on ATC duonebs, PRN albuterol, HOB, IS parameters, continue home montelukast regimen. #4. Chronic microcytic anemia/iron deficiency anemia: Admission hemoglobin 8.6,MCV 73.3, baseline hemoglobin noted previously 11/30/2024 9.4 and prior to this 03/31/2024 hemoglobin 11.7, has trended downward, currently does not appear to belisted on antiplatelet therapy, potentially bleed related, will obtain iron panel, ferritin, guaiac to be cautious and trend CBC. #5. History NSVT: Will continue patient on sotalol and metoprolol regimen, following with EP cardiology per most recent cardiology note 11/19/2024. #6. CAD: Status post previous PCI LAD PTCA/bare-metal stent 2020, will continuepatient home metoprolol, lisinopril, statin therapy, clarifying antiplatelet regimen. #7. Diabetes mellitus type II: Hold oral home regimen, continue home insulin regimen, ADA diet, accu checks w/ ISS, HgbA1c requested given #1. #8. Anxiety and depression: Will continue patient home venlafaxine and low-dosetrazodone regimen with hold for sedation if necessary. #9. Hypertension: Will continue patient home sotalol, lisinopril IV Lasix as noted. As needed IV hydralazine. #10. Hyperlipidemia: Will continue patient home statin therapy, FLP in AM. #11. Hypothyroidism: Status post previous thyroidectomy, resulting hypothyroidism, will continue patient home levothyroxine regimen. #12. Former tobacco usage: Encourage continued tobacco cessation. #13. Morbid Obesity: Weight loss and lifestyle changes encouraged. #14. SHAHANA: Will continue CPAP nightly. #15. BPH with obstructive pathology: Will continue patient on Flomax and finasteride regimen, monitor for urinary retention. #16. GERD: Will continue patient on PPI. #17. DVT prophylaxis: SCDs, clarifying why patient is not on antiplatelet therapies and given worsening anemia will hold off on chemoprophylaxis, add if workup unremarkable and noted to be clinically appropriate. #18. CODE status: Patient HCPOA and living will are not in place but he notes his daughter would be his medical decision-maker if necessary. Discussed CODE status at length including difference between FULL code, DNR-CCA and DNR-CC status. Following discussions about the differences in these status, requested Full Code status. Advanced Care Planning Face to Face Time: 16 minutes. Charges/Coding Visit Charges Inpatient E&M: 40187 Init Hosp L3 Procedures Hospitalists Procedures: 40262 Advncd Care Plan 30 Min 12/15/24 2306 <Electronically signed by Arlette Grigsby MD> Cosigner Signature (if applicable): CC: MANUFACTURING MAINTENANCE MECHANIC-C Morgan aBrajas; Dr. Arlette Grigsby MD~ Signed [facility] Work Phone: [phone]) [phone] Consult note [facility] Medical Records Department [address] [place] [address] Pharmacokinetic/Renal -Consult 12/16/24 0046 MR#: [id number] Acct: [id number] Name: DERRELL HOYT Rep #:[id number] : 1965 59 From: Nain Layne od PCP: UNRULY Tamez Status: ADM IN Location: [place] [address] Consult Antibiotic Management Pharmacy has been consulted to manage selected antibiotic: Vancomycin Type of Intervention Type of Consult: Follow-up Labs Labs: Sodium 133 mmol/L (133-145) 12/15/24 19:00 Potassium 4.4 mmol/L (3.3-5.1) 12/15/24 19:00 Chloride 92 mmol/L (98-108) L 12/15/24 19:00 Carbon Dioxide 30.8 mmol/L (21.0-32.0) 12/15/24 19:00 Anion Gap 10 (5-15) 12/15/24 19:00 BUN 14 mg/dL (4-19) 12/15/24 19:00 Creatinine 0.73 mg/dL (0.70-1.20) 12/15/24 19:00 Est GFR (MDRD) Non-Af 105 (>60) 12/15/24 19:00 BUN/Creatinine Ratio 19.3 RATIO (10-20) 12/15/24 19:00 Glucose 116 mg/dL (70-99) H 12/15/24 19:00 Dosing Weight Weight used for dosin kg Estimated Creatinine Clearance Estimated Creatinine Clearance: 165 Goal Trough Goal Trough: 15-20 mcg/mL Pharmacy Plan for Drug Dosing Pharmacy Plan for Drug Dosing: Pharmacy Service will continue to monitor and adjust dosing as required. LOADING DOSE 2GM GIVEN 12/16 @ 0000. START 1500MG Q8H AND DRAW TROUGH PRIOR TO 4TH DOSE Follow-Up Labs Follow-Up Labs: Trough: Vancomycin Date/Time Labs Ordered Labs to be done on [date and time ordered]: 12/16 @ 2330 12/16/24 0047 lood> Date _ Nain Pulido Signature (if applicable): Date CC: ~ Signed [facility]06-26-2025 Discharge summary Author Derrick Camejo [facility] Note Date/Time December 15, 2024 10:3 7pm [facility] Medical Records Department [address] [place] [address] Emergency Department Summary 12/15/24 MR#: [id number] Acct: [id number] Name: DERRELL HOYT Rep #:[id number] : 1965 59 From: Derrick haywood DO PCP: Morgan Barajas, MANUFACTURING MAINTENANCE MECHANIC-C Status: REG ER Location: ED HPI History of Present Illness Chief Complaint: Wound Narrative Narrative: Chief complaint and HPI: Left lower extremity wounds. 59-year-old male with past medical history of DM2, COPD, HTN presents for evaluation of left lower extremity wounds. Patient states he lives in assisted care facility. States for the past week he has had wounds on his left lower extremity. States that hehas been dressing them and applying a cream. He does not know what the cream iscalled however on chart review it appears that he is likely applying [employer]. Patient states he is unsure if he follows with a foot doctor. Patient states the wounds have become more red and are now draining. Mild pain. He states hissugars have been controlled. He denies any fever, chills, shortness of breath, chest pain, nausea, vomiting. Patient endorses bilateral lower extremity swelling. Review of systems: See HPI Medications: As listed on the chart Allergies: As listed on the chart PFSH: Per chart Vital signs: As listed on the chart. Reviewed. Physical exam: Gen: A&O x3, NAD Head: Normocephalic, atraumatic Eyes: No sclera icterus, conjunctiva clear ENT: Moist mucous membranes Neck: Trachea midline, No JVD CV: RRR, no murmurs, + 2 bilateral peripheral edema of the lower extremities Resp: Lungs diminished in the bilateral bases, difficult to auscultate due to body habitus GI: Obese, abd soft, non-distended, non-tender, no r/r/g Musc: Moves all extremities, no deformity Skin: Warm, patient has chronic lymphedema skin changes to the bilateral lower extremities left lower extremity has multiple large ulcers that are weeping clear drainage, erythematous, mildly warm Neuro: Alert, oriented, grossly intact, sensation intact Psych: Cooperative, appropriate mood and affect [facility] Medical History Redness of skin Thyroid [...] encounter Tumor Atherosclerosis of coronary artery of [place] heart without angina pectoris Kidney stones COPD [...] 11/11/24 Unknown History sennosides 8.6 mg tablet (Greer-danyel) 17.2 mg PO QDAY Unknown History trazodone 50 mg tablet 150 mg PO QHS SLEEP 11/11/24 Unknown History bisacodyl 10 mg rectal suppository 10 mg AR ONCE PRN c onstipation 11/19/24 Unknown History [...] not use caffeine: Yes Type: carbonated beverages EXAM Physical Exam Const Vital Signs: 12/15/24 18:39 12/15/24 20:00 12/15/24 20:05 Temperature 99.1 F 98.5 F Temperature Source Oral Oral Pulse Rate 89 82 Respiratory Rate 20 H 18 Respiratory Effort Respiratory Pattern Blood Pressure 132/70 H 126/58 H Blood Pressure Mean 90 80 Pulse Ox 90 77 90 Oxygen Delivery Method Room Air Room Air Room Air Oxygen Flow Rate (L/min) 12/15/24 20:05 12/15/24 20:07 12/15/24 20:10 Temperature Temperature Source Pulse Rate Respiratory Rate Respiratory Effort Respiratory Pattern Blood Pressure Blood Pressure Mean Pulse Ox 90 87 96 Oxygen Delivery Method Room Air Room Air Nasal Cannula Oxygen Flow Rate (L/min) 2 12/15/24 20:15 12/15/24 20:20 12/15/24 20:26 Temperature Temperature Source Pulse Rate Respiratory Rate Respiratory Effort Normal Non-Labored Respiratory Pattern Normal Blood Pressure Blood Pressure Mean Pulse Ox 97 90 Oxygen Delivery Method Nasal Cannula Room Air Oxygen Flow Rate (L/min) 2 12/15/24 21:00 12/15/24 22:00 12/15/24 22:00 Temperature 98.4 F 98.4 F 98.4 F Temperature Source Oral Oral Pulse Rate 79 79 79 Respiratory Rate 18 18 18 Respiratory Effort Respiratory Pattern Blood Pressure 100/51 L 106/57 L 100/51 L Blood Pressure Mean 67 73 67 Pulse Ox 92 91 91 Oxygen Delivery Method Room Air Room Air Oxygen Flow Rate (L/min) MDM MDM MDM Narrative Medical decision making narrative: 59-year-old male with past medical history of DM2, COPD, HTN presents for evaluation of left lower extremity wounds. Left lower extremity wounds have been present for multiple weeks. More erythematous and now draining clear fluid. Also endorses bilateral lower extremity edema. Patient has no history of heart failure. See physical exam findings. Differential diagnosis includes but is not limited to left lower extremity cellulitis, heart failure, peripheraledema, electrolyte abnormality, bacteremia. On chart review, I do not see any notes from podiatry. However patient did see plastic surgery in the past for lower extremity wounds. Basic labs ordered with chest x-ray. CBC with mild leukocytosis 11.5. Patient has baseline anemia with a hemoglobin of 8.6. Platelets unremarkable. BMP relatively unremarkable except for hyperglycemia of116. BNP unremarkable. Chest x-ray was personally reviewed and interpreted by me, ED physician. Patient has cardiomegaly with pulmonary vascular congestion and bilateral small effusions. Radiology in agreement. Lasix ordered. Although lactic acid is elevated at 2.2. Will not be giving any fluids due to patient's fluid overload. Patient would benefit from admission for continued diuresis as well as antibiotics for his left lower extremity. Originally I ordered Unasyn however on chart review, patient's previous wound cultures grew out multiple bacteria. One of the bacteria was resistant to Unasyn. They were all sensitive to Zosyn. Zosyn ordered and Unasyn DC'd.. Patient was updated ofall the results and the plan. He confirmed understanding. Hospitalist acceptedadmission. Impression: 1. Left lower extremity cellulitis secondary to diabetic wound 2. Fluid overload with peripheral edema, concern for heart failure Lab Data Labs: Laboratory Results - last 24 hr 12/15/24 12/15/24 19:00 20:57 WBC 11.5 H RBC 4.31 L Hgb 8.6 L Hct 31.6 L MCV 73.3 L MCH 20.0 L MCHC 27.2 L RDW Std Deviation 53.4 H RDW Coeff of Jovany 20.6 H Plt Count 217 MPV 9.4 Immature Gran % (Auto) 0.300 Neut % (Auto) 78.6 H Lymph % (Auto) 12.0 L [place] % (Auto) 7.7 Eos % (Auto) 1.1 Baso % (Auto) 0.3 Absolute Neuts (auto) 9.0 H Absolute Lymphs (auto) 1.38 Nucleated RBC % 0 Differential Comment SCANNED Platelet Estimate ADEQUATE Polychromasia 1+ Anisocytosis 1+ Sodium 133 Potassium 4.4 Chloride 92 L Carbon Dioxide 30.8 Anion Gap 10 BUN 14 Creatinine 0.73 Estim Creat Clear Calc 165.21 Est GFR (MDRD) Non-Af 105 BUN/Creatinine Ratio 19.3 Glucose 116 H Lactic Acid 2.2 H* Calcium 8.9 NT pro BNP II 220 Radiography Diagnostic Testing: Clinical Impression(s) from Imaging Studies Chest X-Ray 12/15/24 20:40 IMPRESSION: Findings compatible with CHF/volume overload. Reading Location: [id number] Discharge Plan Triage Chief Complaint: Wound ED Provider: Derrick Camejo Dx/Rx/DC Orders Prescriptions: No Action tamsulosin 0.4 mg capsule [...] Constipation) bisacodyl 10 mg suppository 10 mg AR ONCE PRN (Reason: constipation) doxycycline hyclate 100 mg capsule 100 mg PO BID venlafaxine 37.5 mg tablet 37.5 mg PO BID sennosides [Greer-danyel] 8.6 mg tablet 17.2 mg PO QDAY [...] 2.5 mg PO DAILY Primary Care Provider: Morgan Barajas MANUFACTURING MAINTENANCE MECHANIC Referrals: Morgan Barajas MANUFACTURING MAINTENANCE MECHANIC, MANUFACTURING MAINTENANCE MECHANIC-C [Primary Care Provider] - Print Language: Lao What to do if you have Problems For any increased pain, shortness of breath, bleeding, nausea or vomiting, chestpain, or any unexpected problems, contact your Primary Care Provider. Call [facility] ([phone]) or report to the closest Emergency Room. Call 911 if necessary. 12/15/242236 <Electronically signed by Derrick Camejo DO> Cosigner Signature (if applicable): CC: UNRULY Barajas ~ Signed [facility] Work Phone: [phone]) 369-276806-25-2025 History and physical note [facility] Medical Records Department [address] [place] [address] H&P Exam - Hospitalist 12/15/243 MR#: [id number] Acct: [id number] Name: DERRELL HOYT Rep #:[id number] : 1965 59 From: Arlette Grigsby MD PCP: Morgan Barajas, MANUFACTURING MAINTENANCE MECHANIC-C Status: ADM IN Location: [place] [id number] HPI - General General Date of Admission: 12/15/24 Date of Service: 12/15/24 Chief Complaint: Worsening BL LE edema, LLE wound, increased pain, drainage. HPI Narrative The patient is a 59 y/o M w/ PMHx: Morbid obesity, BPH with obstructive pathology HTN, HLD, Hypothyroidism, IDDM, SHAHANA on CPAP, Chronic microcytic anemia/Fe deficiency anemia, Former tobacco use, Asthma/COPD, CAD s/p PCI who presents to the [facility] ED on 12/15/2024 with history of left lower extremity wounds noted to have worsened over the past week with self application of creams and dressings unclear of exactly what it is but following with podiatry however they become a red and are draining and mildly uncomfortable with no fevers or chills but given persistent worsening susi earanceprompted ED evaluation. Patient does have worsening bilateral lower extremity swelling with chronic orthopnea he notes. Review of weights in the system note 11/30/2024 weight 338 and now upon current presentation 12/15/2024 weight 334. Dalyoes report chronic orthopnea and has had increased bilateral lower extremity swelling but does report that he chronically has increased swelling more so tothe left greater than the right. He is unsure of who from podiatry he has been following with outpatient. Patient reports that his left lower extremity primarily throbs and rates the discomfort 4 outof 10 in severity. He denies any severe dyspnea sensation but is chronically dyspneic with activity. Workup in the ED included T99.1 Oral, heart rate 89, BP 122/70, respiratory rate 20, initially 90%on room air however desaturated down to 77% with improvement to 97% on 2 L nasal cannula, CBC with WC 11.5, he one 8.6, MCV 73.3, platelet 217 with left shift, BMP with chloride 92, BUN/Willie 14/0.73, GFR 105, glucose 116,lactic acid 2.2, NT proBNP 220, chest x-ray with questionable pulmonary vascularcongestion with stable moderate cardiomegaly. In the ED patient ministered IV Unasyn 3 g IV x 1,Zosyn 3.375 g IV x 1, Lasix 40 mg IV x 1. PFSH Medical History Redness of skin Thyroid [...] encounter Tumor Atherosclerosis of coronary artery of [place] heart without angina pectoris Kidney stones COPD [...] 10 mg tablet 10 mg PO QHS PRN ALLERGIES 0 01/10/22 12/29/23 History (Singulair) guaifenesin 600 mg tablet, 600 mg PO [...] 11/11/24 Unknown History sennosides 8.6 mg tablet (Greer-danyel) 17.2 mg PO QDAY Unknown History trazodone 50 mg tablet 150 mg PO QHS SLEEP 11/11/24 Unknown History bisacodyl 10 mg rectal suppository 10 mg AR ONCE PRN c onstipation 11/19/24 Unknown History [...] ID PRN dry skin 11/30/24 Unknown History magnesium hydroxide 400 mg/5 mL 30 ml [...] Allergies Allergy Verified 11/19/24 11:00 Family History Father Heart disease Hypertension Mother Brain aneurysm Surgical History History of cardiac catheterization Hx [...] caffeine: Yes Type: carbonated beverages ROS ROS Narrative Admission Review of Systems: CONSTITUTIONAL: No weight loss, fever, chills, +weakness or fatigue. HEENT: Eyes: No visual loss, blurred vision, double vision or yellow sclerae. Ears, Nose, Throat: No hearing loss, sneezing, congestion, runny nose or sore throat. SKIN: No rash or itching, lesions except + worsening bilateral lower extremity venous stasis disease with left lower extremity stasis blister with eventual stasis ulceration with drainage, purulent appearing, odor. CARDIOVASCULAR: No chest pain, chest pressure or chest discomfort, palpitations,edema, orthopnea, syncopal events. RESPIRATORY: + Increased lower extremity swelling, orthopnea, occasional dyspnea. No marked cough, productive sputum, wheezing or hemoptysis. GASTROINTESTINAL: No anorexia, nausea, vomiting or diarrhea, abdominal pain, melena, BRBPR. GENITOURINARY: No dysuria, frequency, urgency or retention. NEUROLOGICAL: No headache, dizziness, syncope, paralysis, ataxia, numbness or tingling in the extremities, focal weakness, change in bowel or bladder control,seizure. MUSCULOSKELETAL: + muscle, back pain, joint pain or stiffness. HEMATOLOGIC: + Chronic anemia, easy bleeding/bruising. LYMPHATICS: No enlarged nodes. No history of splenectomy. PSYCHIATRIC: No history of depression or anxiety. ENDOCRINOLOGIC: No reports of sweating, cold or heat intolerance. No polyuria orpolydipsia. ALLERGIES: + History of asthma, allergic rhinitis. Vital Signs Vital Signs Vital Signs: 12/15/24 18:39 12/15/24 20:00 12/15/24 20:05 Temperature 99.1 F 98.5 F Temperature Source Oral Oral Pulse Rate 89 82 Respiratory Rate 20 H 18 Respiratory Effort Respiratory Pattern Blood Pressure 132/70 H 126/58 H Blood Pressure Mean 90 80 Pulse Ox 90 77 90 Oxygen Delivery Method Room Air Room Air Room Air Oxygen Flow Rate (L/min) 12/15/24 20:05 12/15/24 20:07 12/15/24 20:10 Temperature Temperature Source Pulse Rate Respiratory Rate Respiratory Effort Respiratory Pattern Blood Pressure Blood Pressure Mean Pulse Ox 90 87 96 Oxygen Delivery Method Room Air Room Air Nasal Cannula Oxygen Flow Rate (L/min) 2 12/15/24 20:15 12/15/24 20:20 12/15/24 20:26 Temperature Temperature Source Pulse Rate Respiratory Rate Respiratory Effort Normal Non-Labored Respiratory Pattern Normal Blood Pressure Blood Pressure Mean Pulse Ox 97 90 Oxygen Delivery Method Nasal Cannula Room Air Oxygen Flow Rate (L/min) 2 12/15/24 21:00 12/15/24 22:00 12/15/24 22:00 Temperature 98.4 F 98.4 F 98.4 F Temperature Source Oral Oral Pulse Rate 79 79 79 Respiratory Rate 18 18 18 Respiratory Effort Respiratory Pattern Blood Pressure 100/51 L 106/57 L 100/51 L Blood Pressure Mean 67 73 67 Pulse Ox 92 91 91 Oxygen Delivery Method Room Air Room Air Oxygen Flow Rate (L/min) Weight Weight: 334 lb 3.532 oz Body Mass Index (BMI) 45.3 Physical Exam Narrative Physical Examination: General: Awake, alert, oriented x 3 and cooperative, seated upright in ED bed, leaning forward, notes he cannot lay back because of dyspnea, notes some throbbing discomfort to the left lower extremity rating it 4 out of 10. Skin: Normal color, normal turgor, no icterus, no cyanosis except for significant bilateral lower extremity venous stasis skin changes, notable bilateral lichenification, left lower extremity lateraldistal stasis wound withpurulent discharge with mild odor noted with mild periwound increased erythe ma beyond the stasis changes. HEENT: AT/NC, EOMI, PERRLA, MMM, difficult to discern carotid bruit and JVD given thickened neck and frances. Lungs: Diminished, greater bases, mildly increased respiratory rate but no distress, despite chest x-ray unable to appreciate any rales, rhonchi or wheezing. Heart: Regular rate and rhythm; no gallop, rub audible. Abdomen: Soft, morbidly obese, distant BS, difficult to discern distention and HSM given habitus. Extremities: No cyanosis, no cyanosis, see skin, chronic significant bilateral lower extremity lymphedema. Neurological: Patient awake, alert, oriented as noted, cognitive function intact; pupils equally reactive to light and accommodation, cranial nerves grossly ormal, moving all 4 extremities, no focal deficits, strength moderately to severely global decreased Psychiatric: Affect appears fatigued, no acute evidence of depressive or anxietyfeelings. Results Lab / Micro Data 12/15/24 19:00 12/15/24 19:00 Labs: Laboratory Results - last 24 hr 12/15/24 19:00: WBC 11.5 H, RBC 4.31 L, Hgb 8.6 L, Hct 31.6 L, MCV 73.3 L, MCH 20.0 L, MCHC 27.2 L,RDW Std Deviation 53.4 H, RDW Coeff of Jovany 20.6 H, Plt Count 217, MPV 9.4, Immature Gran % (Auto) 0.300, Neut % (Auto) 78.6 H, Lymph % (Auto) 12.0 L, [place] % (Auto) 7.7, Eos % (Auto) 1.1, Baso % (Auto) 0.3, Absolute Neuts (auto) 9.0 H, Absolute Lymphs (auto) 1.38, Nucleated RBC % 0, DifferentialComme nt SCANNED, Platelet Estimate ADEQUATE, Polychromasia 1+, Anisocytosis 1+, Sodium 133, Potassium 4.4, Chloride 92 L, Carbon Dioxide 30.8, Anion Gap 10, BUN14, Creatinine 0.73, Estim Creat Clear Calc 165.21, Est GFR (MDRD) Non-Af 105, BUN/Creatinine Ratio 19.3, Glucose 116 H, Calcium 8.9, NT pro BNPII 220 12/15/24 20:57: Lactic Acid 2.2 H* Imaging Radiology Impression Chest X-Ray 12/15/24 20:40 IMPRESSION: Findings compatible with CHF/volume overload. Reading Location: [id number] Assessment & Plan Assessment/Plan (1) Wound cellulitis: PLAN: Plan The patient is a 59 y/o M w/ PMHx: Morbid obesity, BPH with obstructive pathology HTN, HLD, Hypothyroidism, IDDM, SHAHANA on CPAP, Chronic microcytic anemia/Fe deficiency anemia, Former tobacco use, Asthma/COPD, CAD s/p PCI who presents to [facility] ED on 12/15/2024 with history of left lower extremity wounds noted to have worsened over the past week with self application of creams and dressings unclear of exactly what it is but following with podiatry however they become a red and are draining and mildly uncomfortable with no fevers or chills but given persistent worsening susi earanceprompted ED evaluation. #1. Left lower extremity concern for infected stasis wound with mild lactic acidosis complicated byBL LE venous stasis disease and #2 potentially as noted:Given stasis wounds with significant discharge, mildly foul odor and mild WC elevation with left shift, will admit to PCU given concurrent #2, maintain on IVVanco and Zosyn pending wound culture and wound MRSA PCR with de-escalation of antibiotic therapy and narrowing as able, will continue to trend CBC, continue affected extremity elevationabove heart when seated and in bed, monitor erythema outline with VS checks, low threshold to obtain duplex US to assure no DVT concurrently. Wound care consulted. Will continue diuresis given this pr esentation but also #2, will place neck darell wraps with elevation of patient able to tolerate. #2. Acute Hypoxia, suspected primarily secondary to SHAHANA, Morbid obesity hypoventilation syndrome, but certainly could be component volume overload/HFpEFexacerbation but uncertain (given habitus do not always expect elevated BNP level) complicated by #3: Patient administered IV lasix in the ED, maintain on cardiac telemetry, continue IV lasix diuresis, monitor I/Os, maintain on intake restriction,continue medical therapy but clarifying antiplatelet therapy history and given worsening anemia we will hold off on adding pending anemia evaluation as noted, obtain TSH and magnesium level. Most recent ECHO noted 11/19/2023 from [facility] with LV mildly dilated, moderate concentric LVH, LV systolic function normal, EF 63? percent thus will request repeat. #3. Chronic COPD/asthma with allergic rhinitis: Will maintain on oxygen with wean as tolerated to room air complicated by presentation as noted #1, will temporally hold on inhaler in the interim willmaintain on ATC duonebs, PRN albuterol, HOB, IS parameters, continue home montelukast regimen. #4. Chronic microcytic anemia/iron deficiency anemia: Admission hemoglobin 8.6,MCV 73.3, baseline hemoglobin noted previously 11/30/2024 9.4 and prior to this 03/31/2024 hemoglobin 11.7, has trended downward, currently does not appear to belisted on antiplatelet therapy, potentially bleed related, will obtain iron panel, ferritin, guaiac to be cautious and trend CBC. #5. History NSVT: Will continue patient on sotalol and metoprolol regimen, following with EP cardiology per most recent cardiology note 11/19/2024. #6. CAD: Status post previous PCI LAD PTCA/bare-metal stent 2020, will continuepatient home metoprolol, lisinopril, statin therapy, clarifying antiplatelet regimen. #7. Diabetes mellitus type II: Hold oral home regimen, continue home insulin regimen, ADA diet, accu checks w/ ISS, HgbA1c requested given #1. #8. Anxiety and depression: Will continue patient home venlafaxine and low- dosetrazodone regimen with hold for sedation if necessary. #9. Hypertension: Will continue patient home sotalol, lisinopril IV Lasix as noted. As needed IV hydralazine. #10. Hyperlipidemia: Will continue patient home statin therapy, FLP in AM. #11. Hypothyroidism: Status post previous thyroidectomy, resulting hypothyroidism, will continue patient home levothyroxine regimen. #12. Former tobacco usage: Encourage continued tobacco cessation. #13. Morbid Obesity: Weight loss and lifestyle changes encouraged. #14. SHAHANA: Will continue CPAP nightly. #15. BPH with obstructive pathology: Will continue patient on Flomax and finasteride regimen, monitor for urinary retention. #16. GERD: Will continue patient on PPI. #17. DVT prophylaxis: SCDs, clarifying why patient is not on antiplatelet therapies and given worsening anemia will hold off on chemoprophylaxis, add if workup unremarkable and noted to be clinicallyappropriate. #18. CODE status: Patient HCPOA and living will are not in place but he notes his daughter would behis medical decision-maker if necessary. Discussed CODE status at length including difference between FULL code, DNR-CCA and DNR-CC status. Following discussions about the differences in these status, requested Full Code status. Advanced Care Planning Face to Face Time: 16 minutes. Charges/Coding Visit Charges Inpatient E&M: 65772 Init Hosp L3 Procedures Hospitalists Procedures: 67533 Advncd Care Plan 30 Min 12/15/24 2306 Cosigner Signature (if applicable): CC: MANUFACTURING MAINTENANCE MECHANIC-C Morgan Barajas; Dr. Arlette Grigsby MD~ Signed [facility]06-25-2025 Discharge summary [facility] Medical Records Department [address] [place] [address] Emergency Department Summary 12/15/24 MR#: [id number] Acct: [id number] Name: DERRELL HOYT Rep #:[id number] : 1965 59 From: Derrick haywood DO PCP: Morgan Barajas, MANUFACTURING MAINTENANCE MECHANIC-C Status: REG ER Location: ED HPI History of Present Illness Chief Complaint: Wound Narrative Narrative: Chief complaint and HPI: Left lower extremity wounds. 59-year-old male with past medical history ofDM2, COPD, HTN presents for evaluation of left lower extremity wounds. Patient states he lives in assisted care facility. States for the past week he has had wounds on his left lower extremity. States that hehas been dressing them and applying a cream. He does not know what the cream iscalled however on chart review it appears that he is likely applying AmeriPhor. Patient states he is unsure if he follows with a foot doctor. Patient states the wounds have become more red and are now draining. Mild pain. He states hissugars have been controlled. He denies any fever, chills, shortness of breath, chest pain, nausea, vomiting. Patient endorses bilateral lower extremity swelling. Review of systems: See HPI Medications: As listed on the chart Allergies: As listed on the chart PFSH: Per chart Vital signs: As listed on the chart. Reviewed. Physical exam: Gen: A&O x3, NAD Head: Normocephalic, atraumatic Eyes: No sclera icterus, conjunctiva clear ENT: Moist mucous membranes Neck: Trachea midline, No JVD CV: RRR, no murmurs, + 2 bilateral peripheral edema of the lower extremities Resp: Lungs diminished in the bilateral bases, difficult to auscultate due to body habitus GI: Obese, abd soft, non-distended, non-tender, no r/r/g Musc: Moves all extremities, no deformity Skin: Warm, patient has chronic lymphedema skin changes to the bilateral lower extremities left lower extremity has multiple large ulcers that are weeping clear drainage, erythematous, mildly warm Neuro: Alert, oriented, grossly intact, sensation intact Psych: Cooperative, appropriate mood and affect [facility] Medical History Redness of skin Thyroid [...] encounter Tumor Atherosclerosis of coronary artery of [place] heart without angina pectoris Kidney stones COPD [...] 11/11/24 Unknown History sennosides 8.6 mg tablet (Greer-danyel) 17.2 mg PO QDAY Unknown History trazodone 50 mg tablet 150 mg PO QHS SLEEP 11/11/24 Unknown History bisacodyl 10 mg rectal suppository 10 mg AR ONCE PRN c onstipation 11/19/24 Unknown History [...] not use caffeine: Yes Type: carbonated beverages EXAM Physical Exam Const Vital Signs: 12/15/24 18:39 12/15/24 20:00 12/15/24 20:05 Temperature 99.1 F 98.5 F Temperature Source Oral Oral Pulse Rate 89 82 Respiratory Rate 20 H 18 Respiratory Effort Respiratory Pattern Blood Pressure 132/70 H 126/58 H Blood Pressure Mean 90 80 Pulse Ox 90 77 90 Oxygen Delivery Method Room Air Room Air Room Air Oxygen Flow Rate (L/min) 12/15/24 20:05 12/15/24 20:07 12/15/24 20:10 Temperature Temperature Source Pulse Rate Respiratory Rate Respiratory Effort Respiratory Pattern Blood Pressure Blood Pressure Mean Pulse Ox 90 87 96 Oxygen Delivery Method Room Air Room Air Nasal Cannula Oxygen Flow Rate (L/min) 2 12/15/24 20:15 12/15/24 20:20 12/15/24 20:26 Temperature Temperature Source Pulse Rate Respiratory Rate Respiratory Effort Normal Non-Labored Respiratory Pattern Normal Blood Pressure Blood Pressure Mean Pulse Ox 97 90 Oxygen Delivery Method Nasal Cannula Room Air Oxygen Flow Rate (L/min) 2 12/15/24 21:00 12/15/24 22:00 12/15/24 22:00 Temperature 98.4 F 98.4 F 98.4 F Temperature Source Oral Oral Pulse Rate 79 79 79 Respiratory Rate 18 18 18 Respiratory Effort Respiratory Pattern Blood Pressure 100/51 L 106/57 L 100/51 L Blood Pressure Mean 67 73 67 Pulse Ox 92 91 91 Oxygen Delivery Method Room Air Room Air Oxygen Flow Rate (L/min) MDM MDM MDM Narrative Medical decision making narrative: 59-year-old male with past medical history of DM2, COPD, HTN presents for evaluation of left lower extremity wounds. Left lower extremity wounds have been present for multiple weeks. More erythematous and now draining clear fluid. Also endorses bilateral lower extremity edema. Patient has no history of heart failure. See physical exam findings. Differential diagnosis includes but is not limited to left lower extremity cellulitis, heart failure, peripheraledema, electrolyte abnormality, bacteremia. On chart review, I do not see any notes from podiatry. However patient did see plastic surgery in the past for lower extremity wounds. Basic labs ordered with chest x-ray. CBC with mild leukocytosi s 11.5. Patient has baseline anemia with a hemoglobin of 8.6. Platelets unremarkable. BMP relatively unremarkable except for hyperglycemia of116. BNP unremarkable. Chest x-ray was personally reviewedand interpreted by me, ED physician. Patient has cardiomegaly with pulmonary vascular congestion and bilateral small effusions. Radiology in agreement. Lasix ordered. Although lactic acid is elevatedat 2.2. Will not be giving any fluids due to patient's fluid overload. Patient would benefit from admission for continued diuresis as well as antibiotics for his left lower extremity. Originally I ordered Unasyn however on chart review, patient's previous wound cultures grew out multiple bacteria. One of the bacteria was resistant to Unasyn. They were all sensitive to Zosyn. Zosyn ordered and Unasyn DC'd.. Patient was updated ofall the results and the plan. He confirmed understanding. Hospitalist acceptedadmission. Impression: 1. Left lower extremity cellulitis secondary to diabetic wound 2. Fluid overload with peripheral edema, concern for heart failure Lab Data Labs: Laboratory Results - last 24 hr 12/15/24 12/15/24 19:00 20:57 WBC 11.5 H RBC 4.31 L Hgb 8.6 L Hct 31.6 L MCV 73.3 L MCH 20.0 L MCHC 27.2 L RDW Std Deviation 53.4 H RDW Coeff of Jovany 20.6 H Plt Count 217 MPV 9.4 Immature Gran % (Auto) 0.300 Neut % (Auto) 78.6 H Lymph % (Auto) 12.0 L [place] % (Auto) 7.7 Eos % (Auto) 1.1 Baso % (Auto) 0.3 Absolute Neuts (auto) 9.0 H Absolute Lymphs (auto) 1.38 Nucleated RBC % 0 Differential Comment SCANNED Platelet Estimate ADEQUATE Polychromasia 1+ Anisocytosis 1+ Sodium 133 Potassium 4.4 Chloride 92 L Carbon Dioxide 30.8 Anion Gap 10 BUN 14 Creatinine 0.73 Estim Creat Clear Calc 165.21 Est GFR (MDRD) Non-Af 105 BUN/Creatinine Ratio 19.3 Glucose 116 H Lactic Acid 2.2 H* Calcium 8.9 NT pro BNP II 220 Radiography Diagnostic Testing: Clinical Impression(s) from Imaging Studies Chest X-Ray 12/15/24 20:40 IMPRESSION: Findings compatible with CHF/volume overload. Reading Location: [facility] Discharge Plan Triage Chief Complaint: Wound ED Provider: Derrick Camejo Dx/Rx/DC Orders Prescriptions: No Action tamsulosin 0.4 mg capsule [...] Constipation) bisacodyl 10 mg suppository 10 mg AR ONCE PRN (Reason: constipation) doxycycline hyclate 100 mg capsule 100 mg PO BID venlafaxine 37.5 mg tablet 37.5 mg PO BID sennosides [Greer-danyel] 8.6 mg tablet 17.2 mg PO QDAY [...] 2.5 mg PO DAILY Primary Care Provider: Morgan Barajas MANUFACTURING MAINTENANCE MECHANIC Referrals: Morgan Barajas MANUFACTURING MAINTENANCE MECHANIC, MANUFACTURING MAINTENANCE MECHANIC-C [Primary Care Provider] - Print Language: Lao What to do if you have Problems For any increased pain, shortness of breath, bleeding, nausea or vomiting, chestpain, or any unexpected problems, contact your Primary Care Provider. Call [facility] ([phone]) or report tothe closest Emergency Room. Call 911 if necessary. 12/15/242236 Cosigner Signature (if applicable): CC: MANUFACTURING MAINTENANCE MECHANIC-C Morgan Barajas ~ Signed [facility]06-25-2025 Radiology Diagnostic study note [facility] Imaging Services [address] [place] [address] Chest PA and Lateral MR#: [id number] Acct: [id number] Name: DERRELL HOYT Rep #: [id number] : 1965 M 59 From: Cassandra Carter MD PCP: CHRISTIANO TamezC Status: REG ER Study:Chest PA and Lateral Date of Exam: 12/15/24 Exam# [id number] Ordering Dr: Drerick Elias DO PROCEDURE: CHEST PA AND LATERAL 12/15/2024 REASON FOR EXAM: FLUID OVERLOAD TECHNIQUE: CHEST PA AND LATERAL COMPARISON: Chest radiograph 11/30/2024. FINDINGS: Hardware: None. Heart: Stable moderate cardiomegaly with pulmonary vascular congestion. Retrocardiac lucency, compatible with hiatal hernia. Mediastinum: The mediastinal contour is stable. Lungs: Trace pleural effusions. Bibasilar atelectasis/scarring. No obvious focal consolidation or pneumothorax. Bones: Degenerative changes are identified within the thoracic spine. RAD/Chest PA and Lateral IMPRESSION: Findings compatible with CHF/volume overload. Reading Location: [facility] CC: UNRULY Barajas; Dr. Derrick Camejo DO ~ Hydrologist: Signed [facility]06-25-2025 Discharge summary Author Derrick Camejo [facility] Note Date/Time December 15, 2024 10:3 7pm [facility] Medical Records Department [address] [place] [address] Emergency Department Summary 12/15/24 MR#: [id number] Acct: [id number] Name: DERRELL HOYT Rep #:[id number] : 1965 59 From: Derrick haywood DO PCP: Morgan Barajas, CHRISTIANOC Status: REG ER Location: ED HPI History of Present Illness Chief Complaint: Wound Narrative Narrative: Chief complaint and HPI: Left lower extremity wounds. 59-year-old male with past medical history of DM2, COPD, HTN presents for evaluation of left lower extremity wounds. Patient states he lives in assisted care facility. States for the past week he has had wounds on his left lower extremity. States that hehas been dressing them and applying a cream. He does not know what the cream iscalled however on chart review it appears that he is likely applying AmeriPhor. Patient states he is unsure if he follows with a foot doctor. Patient states the wounds have become more red and are now draining. Mild pain. He states hissugars have been controlled. He denies any fever, chills, shortness of breath, chest pain, nausea, vomiting. Patient endorses bilateral lower extremity swelling. Review of systems: See HPI Medications: As listed on the chart Allergies: As listed on the chart PFSH: Per chart Vital signs: As listed on the chart. Reviewed. Physical exam: Gen: A&O x3, NAD Head: Normocephalic, atraumatic Eyes: No sclera icterus, conjunctiva clear ENT: Moist mucous membranes Neck: Trachea midline, No JVD CV: RRR, no murmurs, + 2 bilateral peripheral edema of the lower extremities Resp: Lungs diminished in the bilateral bases, difficult to auscultate due to body habitus GI: Obese, abd soft, non-distended, non-tender, no r/r/g Musc: Moves all extremities, no deformity Skin: Warm, patient has chronic lymphedema skin changes to the bilateral lower extremities left lower extremity has multiple large ulcers that are weeping clear drainage, erythematous, mildly warm Neuro: Alert, oriented, grossly intact, sensation intact Psych: Cooperative, appropriate mood and affect [facility] Medical History Redness of skin Thyroid [...] encounter Tumor Atherosclerosis of coronary artery of [place] heart without angina pectoris Kidney stones COPD [...] 11/11/24 Unknown History sennosides 8.6 mg tablet (Greer-danyel) 17.2 mg PO QDAY Unknown History trazodone 50 mg tablet 150 mg PO QHS SLEEP 11/11/24 Unknown History bisacodyl 10 mg rectal suppository 10 mg AR ONCE PRN c onstipation 11/19/24 Unknown History [...] not use caffeine: Yes Type: carbonated beverages EXAM Physical Exam Const Vital Signs: 12/15/24 18:39 12/15/24 20:00 12/15/24 20:05 Temperature 99.1 F 98.5 F Temperature Source Oral Oral Pulse Rate 89 82 Respiratory Rate 20 H 18 Respiratory Effort Respiratory Pattern Blood Pressure 132/70 H 126/58 H Blood Pressure Mean 90 80 Pulse Ox 90 77 90 Oxygen Delivery Method Room Air Room Air Room Air Oxygen Flow Rate (L/min) 12/15/24 20:05 12/15/24 20:07 12/15/24 20:10 Temperature Temperature Source Pulse Rate Respiratory Rate Respiratory Effort Respiratory Pattern Blood Pressure Blood Pressure Mean Pulse Ox 90 87 96 Oxygen Delivery Method Room Air Room Air Nasal Cannula Oxygen Flow Rate (L/min) 2 12/15/24 20:15 12/15/24 20:20 12/15/24 20:26 Temperature Temperature Source Pulse Rate Respiratory Rate Respiratory Effort Normal Non-Labored Respiratory Pattern Normal Blood Pressure Blood Pressure Mean Pulse Ox 97 90 Oxygen Delivery Method Nasal Cannula Room Air Oxygen Flow Rate (L/min) 2 12/15/24 21:00 12/15/24 22:00 12/15/24 22:00 Temperature 98.4 F 98.4 F 98.4 F Temperature Source Oral Oral Pulse Rate 79 79 79 Respiratory Rate 18 18 18 Respiratory Effort Respiratory Pattern Blood Pressure 100/51 L 106/57 L 100/51 L Blood Pressure Mean 67 73 67 Pulse Ox 92 91 91 Oxygen Delivery Method Room Air Room Air Oxygen Flow Rate (L/min) MDM MDM MDM Narrative Medical decision making narrative: 59-year-old male with past medical history of DM2, COPD, HTN presents for evaluation of left lower extremity wounds. Left lower extremity wounds have been present for multiple weeks. More erythematous and now draining clear fluid. Also endorses bilateral lower extremity edema. Patient has no history of heart failure. See physical exam findings. Differential diagnosis includes but is not limited to left lower extremity cellulitis, heart failure, peripheraledema, electrolyte abnormality, bacteremia. On chart review, I do not see any notes from podiatry. However patient did see plastic surgery in the past for lower extremity wounds. Basic labs ordered with chest x-ray. CBC with mild leukocytosis 11.5. Patient has baseline anemia with a hemoglobin of 8.6. Platelets unremarkable. BMP relatively unremarkable except for hyperglycemia of116. BNP unremarkable. Chest x-ray was personally reviewed and interpreted by me, ED physician. Patient has cardiomegaly with pulmonary vascular congestion and bilateral small effusions. Radiology in agreement. Lasix ordered. Although lactic acid is elevated at 2.2. Will not be giving any fluids due to patient's fluid overload. Patient would benefit from admission for continued diuresis as well as antibiotics for his left lower extremity. Originally I ordered Unasyn however on chart review, patient's previous wound cultures grew out multiple bacteria. One of the bacteria was resistant to Unasyn. They were all sensitive to Zosyn. Zosyn ordered and Unasyn DC'd.. Patient was updated ofall the results and the plan. He confirmed understanding. Hospitalist acceptedadmission. Impression: 1. Left lower extremity cellulitis secondary to diabetic wound 2. Fluid overload with peripheral edema, concern for heart failure Lab Data Labs: Laboratory Results - last 24 hr 12/15/24 12/15/24 19:00 20:57 WBC 11.5 H RBC 4.31 L Hgb 8.6 L Hct 31.6 L MCV 73.3 L MCH 20.0 L MCHC 27.2 L RDW Std Deviation 53.4 H RDW Coeff of Jovany 20.6 H Plt Count 217 MPV 9.4 Immature Gran % (Auto) 0.300 Neut % (Auto) 78.6 H Lymph % (Auto) 12.0 L Bossier % (Auto) 7.7 Eos % (Auto) 1.1 Baso % (Auto) 0.3 Absolute Neuts (auto) 9.0 H Absolute Lymphs (auto) 1.38 Nucleated RBC % 0 Differential Comment SCANNED Platelet Estimate ADEQUATE Polychromasia 1+ Anisocytosis 1+ Sodium 133 Potassium 4.4 Chloride 92 L Carbon Dioxide 30.8 Anion Gap 10 BUN 14 Creatinine 0.73 Estim Creat Clear Calc 165.21 Est GFR (MDRD) Non-Af 105 BUN/Creatinine Ratio 19.3 Glucose 116 H Lactic Acid 2.2 H* Calcium 8.9 NT pro BNP II 220 Radiography Diagnostic Testing: Clinical Impression(s) from Imaging Studies Chest X-Ray 12/15/24 20:40 IMPRESSION: Findings compatible with CHF/volume overload. Reading Location: [id number] Discharge Plan Triage Chief Complaint: Wound ED Provider: Derrick Camejo Dx/Rx/DC Orders Prescriptions: No Action tamsulosin 0.4 mg capsule [...] Constipation) bisacodyl 10 mg suppository 10 mg AR ONCE PRN (Reason: constipation) doxycycline hyclate 100 mg capsule 100 mg PO BID venlafaxine 37.5 mg tablet 37.5 mg PO BID sennosides [Greer-danyel] 8.6 mg tablet 17.2 mg PO QDAY [...] 2.5 mg PO DAILY Primary Care Provider: Morgan Barajas MANUFACTURING MAINTENANCE MECHANIC Referrals: Morgan Barajas MANUFACTURING MAINTENANCE MECHANIC, MANUFACTURING MAINTENANCE MECHANIC-C [Primary Care Provider] - Print Language: Lao What to do if you have Problems For any increased pain, shortness of breath, bleeding, nausea or vomiting, chestpain, or any unexpected problems, contact your Primary Care Provider. Call [facility] ([phone]) or report to the closest Emergency Room. Call 911 if necessary. 12/15/24 9231 <Electronically signed by Derrick Camejo DO> Cosigner Signature (if applicable): CC: MANUFACTURING MAINTENANCE MECHANIC-C Morgan Barajas ~ Signed [facility] Work Phone: 1(309) 144-230706-16-2025 Hospital Discharge instructions Additional Instructions Your labs and chest x-ray look good today. Your blood sugar is low that came back up. Your blood count is more anemic than you have been. You are 9.4 today. Supposedly you were 9.6 yesterday. Follow-up with your nurse practitioner Heather Barajas. For repeat evaluation. Probably need to have your blood count rechecked in 1 to 2 weeks.[facility] Work Phone: 1(218) 622-960306-10-2025 Discharge summary [facility] Medical Records Department [address] [place] [address] Emergency Department Summary 11/30/24 MR#: [id number] Acct: [id number] Name: DERRELL HOYT Rep #:[id number] : 1965 59 From: Antoine Hahn MD PCP: UNRULY Tamez Status: REG ER Location: ED ADDENDUM by Dr. Antoine Hahn MD on 11/30/24 at 1625 Prior to discharge I did speak to the patient's nurse practitioner Heather Barajas. She will follow him up as an outpatient. These are consistent with his baseline labs including his anemia. Patient is comfortable with the plan. 11/30/24 1625 Cosigner Signature (if applicable): cc: MANUFACTURING MAINTENANCE MECHANIC-C Morgan Barajas ~* Signed HPI History of Present [...] similar symptoms: No Recent Illness/Hospitalization: No PFSH PFS Medical History Redness of skin Thyroid disease [...] encounter Tumor Atherosclerosis of coronary artery of [place] heart without angina pectoris Kidney stones COPD [...] 11/11/24 Unknown History sennosides 8.6 mg tablet (Greer-danyel) 17.2 mg PO QDAY Unknown History trazodone 50 mg tablet 150 mg PO QHS SLEEP 11/11/24 Unknown History bisacodyl 10 mg rectal suppository 10 mg AR ONCE PRN c onstipation 11/19/24 Unknown History [...] stable. Room air sat 91%. Patient does notlook septic dicey. He is in no distress. H EENT exam isround react light. Moist mucous membranes. Face scalp not atraumatic. Neck nontender JVD. Back nontender. Lungs clear to auscultation bilaterally. Heartregular rhythm rate about 70 no murmur. Chest wall and ribs nontender. No ecchymosis or bruising. Abdomen soft, nontender, nondistended normal vitals without peritoneal signs. Moving all 4 extremities. 5 out of 5 material scheduler strength. Dorsi plantarflexion. Calves are nontender without [...] to inspection, nondistended, normoactive bowel sounds, non-tender, non- distended and no masses Auscultation: normoactive bowel sounds [...] 77.4 H Lymph % (Auto) 11.5 L Bossier % (Auto) 8.8 Eos % (Auto) 1.5 [...] (Auto) Neut % (Auto) Lymph % (Auto) Bossier % (Auto) Eos % (Auto) Baso % [...] stable, without evidence of cardiomegaly. Reading Location: [id number] Chest x-ray, 2 films AP view. Shows chronic changes. No acute process. Bibasilar atelectasis. Rhythm Strip Rhythm Strip: Sinus Rhythm Rate: 74 Ectopy: None EKG Initial EKG: Attestation: I personally reviewed and interpreted this EKG as follows: Interpretation: Sinus Rhythm and No Acute Injury Pattern Comments: Normal sinus rhythm rate of 74 no acute signs of NM or ischemia. No dysrhythmia. Discharge Plan Triage [...] Constipation) bisacodyl 10 mg suppository 10 mg AR ONCE PRN (Reason: constipation) doxycycline hyclate 100 mg capsule 100 mg PO BID venlafaxine 37.5 mg tablet 37.5 mg PO BID sennosides [Greer-danyel] 8.6 mg tablet 17.2 mg PO QDAY [...] 2.5 mg PO DAILY Primary Care Provider: Morgan Barajas MANUFACTURING MAINTENANCE MECHANIC Referrals: Morgan Barajas MANUFACTURING MAINTENANCE MECHANIC, MANUFACTURING MAINTENANCE MECHANIC-C [Primary Care Provider] - As soon as [...] in 1 to 2 weeks. Print Language: Lao Disposition Disposition: Home, Self Care What to do if you have Problems For any increased pain, shortness of breath, bleeding, nausea or vomiting, chestpain, or any unexpected problems, contact your Primary Care Provider. Call [facility] ([phone]) or report tothe closest Emergency Room. Call 911 if necessary. 11/30/24 1621 Cosigner Signature (if applicable): CC: MANUFACTURING MAINTENANCE MECHANICLakia Barajas ~ Signed [facility]06-10-2025 Radiology Diagnostic study note [facility] Imaging Services [address] [place] [address] Chest 1 View (Portable) MR#: [id number] Acct: [id number] Name: DERRELL HOYT Rep #: [id number] : 1965 M 59 From: Jignesh Del Valle MD PCP: UNRULY Tamez Status: REG ER Study:Chest 1 View (Portable) Date of Exam: 11/30/24 Exam# [id number] Ordering Dr: Daniel Hahn MD PROCEDURE: CHEST [...] stable, without evidence of cardiomegaly. Reading Location: [address] CC: UNRULY Barajas; Dr. Antoine Hahn MD ~ Hydrologist: Signed [facility]06-10-2025 Discharge summary Author Antoine Hahn [facility] Note Date/Time November 30, 2024 4:26 pm [facility] Medical Records Department [address] [place] [address] Emergency Department Summary 11/30/24 MR#: [id number] Acct: [id number] Name: DERRELL HOYT Rep #:[id number] : 1965 59 From: Antoine Hahn MD PCP: UNRULY Tamez Status: REG ER Location: ED ADDENDUM by [...] Hahn MD> Cosigner Signature (if applicable): cc: MANUFACTURING MAINTENANCE MECHANIC-C Morgan Barajas ~* Signed HPI History of Present [...] encounter Tumor Atherosclerosis of coronary artery of [place] heart without angina pectoris Kidney stones COPD [...] 11/11/24 Unknown History sennosides 8.6 mg tablet (Greer-danyel) 17.2 mg PO QDAY Unknown History trazodone 50 mg tablet 150 mg PO QHS SLEEP 11/11/24 Unknown History bisacodyl 10 mg rectal suppository 10 mg AR ONCE PRN c onstipation 11/19/24 Unknown History [...] all 4 extremities. 5 out of 5 material scheduler strength. Dorsi plantarflexion. Calves are nontender without [...] 77.4 H Lymph % (Auto) 11.5 L Bossier % (Auto) 8.8 Eos % (Auto) 1.5 [...] (Auto) Neut % (Auto) Lymph % (Auto) Bossier % (Auto) Eos % (Auto) Baso % [...] stable, without evidence of cardiomegaly. Reading Location: [id number] Chest x-ray, 2 films AP view. Shows chronic changes. No acute process. Bibasilar atelectasis. Rhythm Strip Rhythm Strip: Sinus Rhythm Rate: 74 Ectopy: None EKG Initial EKG: Attestation: I personally reviewed and interpreted this EKG as follows: Interpretation: Sinus Rhythm and No Acute Injury Pattern Comments: Normal sinus rhythm rate of 74 no acute signs of NM or ischemia. No dysrhythmia. Discharge Plan Triage [...] Constipation) bisacodyl 10 mg suppository 10 mg AR ONCE PRN (Reason: constipation) doxycycline hyclate 100 mg capsule 100 mg PO BID venlafaxine 37.5 mg tablet 37.5 mg PO BID sennosides [Greer-danyel] 8.6 mg tablet 17.2 mg PO QDAY [...] 2.5 mg PO DAILY Primary Care Provider: Morgan Barajas MANUFACTURING MAINTENANCE MECHANIC Referrals: Morgan Barajas MANUFACTURING MAINTENANCE MECHANIC, MANUFACTURING MAINTENANCE MECHANIC-C [Primary Care Provider] - As soon as [...] in 1 to 2 weeks. Print Language: Lao Disposition Disposition: Home, Self Care What to do if you have Problems For any increased pain, shortness of breath, bleeding, nausea or vomiting, chestpain, or any unexpected problems, contact your Primary Care Provider. Call [facility] ([phone]) or report to the closest Emergency Room. Call 911 if necessary. 11/30/24 1621 <Electronically signed by Antoine Hahn MD> Cosigner Signature (if applicable): CC: MANUFACTURING MAINTENANCE MECHANIC-C Morgan Barajas ~ Signed [facility] Work Phone: 1(853) 387-669406-10-2025 Hospital Discharge instructions Additional Instructions Your labs and chest x-ray look good today. Your blood sugar is low that came back up. Your blood count is more anemic than you have been. You are 9.4 today. Supposedly you were 9.6 yesterday. Follow-up with your nurse practitioner Heather Barajas. For repeat evaluation. Probably need to have your blood count rechecked in 1 to 2 weeks.[facility] Work Phone: 1(679) 387-106305-13-2025 Instructions* Patient Instructions* Shilo Beranl PA-C - 11/02/2024 9:15 AM EDT Continue [...] do not observe improvement. [facility]25 NoteHNO ID: [id number] Author: SHILO BERNAL PA-C Service: ? Author Type: Physician Quality Engineering Manager Type: Progress Notes Filed: 11/02/2024 13:31 Note Text: [facility] NEW PATIENT CLINIC NOTE (M) Note was generated by [employer] and edited as appropriate SERVICE DATE: [...] (ng/mL) Date Value 09/12/2015 0.18 MEDICATIONS: senna (GREER-DANYEL) 8.6 mg tab Take 17.2 mg by [...] and one tablet in (more content not included)...[facility]05-13-2025 History of Present illness Narrative* Shilo Bernal PA-C - 11/02/2024 8:55 AM EDT Images from the original note were not included. [facility] PATIENT CLINIC NOTE (M) Note was generated by [employer] and edited as appropriate SERVICE DATE: [...] (ng/mL) Date Value 09/12/2015 0.18 MEDICATIONS: senna (GREER-DANYEL) 8.6 mg tab Take 17.2 mg by [...] hours as needed (For dry nares). Fish Oil-Marion-3 Fatty Acids (FISH OIL) 340-1,000 mg cap [...] RCA, RI absent by cardiac cath at [facility] History of stress test 11/19/2023 EF 75%, [...] Friends and Family: Not on file Attends Yarsanism Services: Not on file Active Member of [...] worsening > 3 mo. Appt w/ B. Vilma, ANGELA, MT, PA-C for new Rx Follow-up Patient [...] observe improvement. ANGELA Sesay MT, PA-C * Ana Arroyo LPN - 11/02/2024 8:29 AM EDT [...] tolerated the procedure well. Plan: Appointment with Shilo. documented in this encounterTr[facility]05-13-2025 NoteHNO ID: [id number] Author: ANA ARROYO LPN Service: ? Author Type: LICENSED [...] tolerated the procedure well. Plan: Appointment with Shilo.[facility]05-08-2025 Telephone encounter Note* Telephone Encounter - Ana Arroyo LPN - 10/28/2024 4:06 PM EDT Called [facility] due to CareEverywhere. Spoke with Rupali. Patient discharged with them in 2019. Ana Arroyo LPN [facility]05-08-[facility]25 Miscellaneous Notes* Telephone Encounter - Ana Arroyo LPN - 10/28/2024 4:06 PM EDT Called [facility] due to CareEverywhere. Spoke with Rupali. Patient discharged with them in 2019. Ana Arroyo LPN * Telephone Encounter - Ana Arroyo LPN - 10/20/2024 9:21 AM EDT Called patient. No answer- left message to call clinic. Patient has appointment in October to see urology for Increased Urination & Dysuria. No referral insystem. Has patient been seen elsewhere for urological issues and if so where? We like to request records for appointment. Ana Arroyo LPN documented in this encounterTr[facility]ull [facility]04-30-2025 Consult note [facility] Medical Records Department [address] [place] [address] Anesthesia Postop Eval II 10/20/24 1108 MR#: [id number] Acct: [id number] Name: DERRELL HOYT Rep #:[id number] : 1965 59 From: Steve Mckenzie MD PCP: UNRULY Tamez Status: [place] [facility] [place] Race: C Location: [place] [address] Anesthesia Postop Eval I Sum Postop Eval [...] Steve Pulido Signature: Date CC: ~ Signed [facility]04-30-2025 Consult note [facility] Medical Records Department [address] [place] [address] Anesthesia Postop Eval I 10/20/24 1045 MR#: [id number] Acct: [id number] Name: DERRELL HOYT Rep #:[id number] : 1965 59 From: Diego Tejeda PCP: Morgan Barajas, MANUFACTURING MAINTENANCE MECHANIC-C Status: REG [facility] Y Race: C Location: [place] [address] Anesthesia: Postop Eval I Current Vital Signs [...] Diego Pulido Signature: Date CC: ~ Signed [facility]04-30-2025 Procedure note [facility] Medical Records Department [address] [place] [address] Colonoscopy Report MR#: [id number] Acct: [id number] Name: DERRELL HOYT Rep #:[id number] : 1965 59 From: Mata Pastor DO PCP: CHRISTIANO TamezC Status: REG SDC Patient Name: Derrell Hoyt [...] present medications. Procedure Code(s): --- Professional --- 68019, Colonoscopy, flexible; with removal of tumor(s), polyp(s), or other lesion(s) by snare technique 67612, 59, Colonoscopy, flexible; with biopsy, single or multiple CPT copyright 2021 [employer]. All rights reserved. The codes documented in this report are preliminary and upon log manager review may be revised to meet current compliance requirements. Mata Pastor DO 10/20/2024 10:42:28 AM This report has been signed electronically. Number of Addenda: 0 Note Initiated On: 10/20/2024 10:04 AM 10/20/24 1042 Date _ Mata Wongigndhruv Signature: Date (if indicated) CC: MANUFACTURING MAINTENANCE MECHANIC-C Morgan Barajas; Mata Pastor DO ~ Date Dictated: 10/20/24 1004 Date Transcribed: Hydrologist: RF Signed [facility]04-30-2025 Procedure note [facility] Medical Records Department [address] [place] [address] Operative Report - CC Letter MR#: [id number] Acct: [id number] Name: DERRELL HOYT Rep #:[id number] : 1965 59 From: Mata Pastor DO PCP: UNRULY Tamez Status: REG SDC 10/20/2024 Morgan Barajas Re : Colonoscopy procedure for Derrell [...] signed electronically. 10/20/24 1042 Date _ Mata Gaytan Signature: Date (if indicated) CC: MANUFACTURING MAINTENANCE MECHANIC-C Morgan Barajas; Mata Pastor DO ~ Date Dictated: 10/20/24 1004 Date Transcribed: Hydrologist: DEBBY Signed [facility]04-30-2025 Procedure note [facility] Medical Records Department [address] [place] [address] EGD Report MR#: [id number] Acct: [id number] Name: DERRELL HYOT Rep #:[id number] : 1965 59 From: Mata Pastor DO [...] present medications. Procedure Code(s): --- Professional --- 46112, Esophagogastroduodenoscopy, flexible, transoral; with biopsy, single or multiple CPT copyright 2021 [employer]. All rights reserved. The codes documented in this report are preliminary and upon log manager review may be revised to meet current compliance requirements. Mata Pastor DO 10/20/2024 10:38:03 AM This report has been signed electronically. Number of Addenda: 0 Note Initiated On: 10/20/2024 9:51 AM 10/20/24 1038 Date _ Mata Wongigndhruv Signature: Date (if indicated) CC: MANUFACTURING MAINTENANCE MECHANIC-Brittany Pastor DO ~ Date Dictated: 10/20/24950 Date Transcribed: Hydrologist: DEBBY Signed [facility]-30[facility]2025 Procedure note [facility] Medical Records Department [address] [facility] [place] [address] Operative Report - CC Letter MR#: [id number] Acct: [id number] Name: DERRELL HOYT Rep #:[id number] : 1965 59 From: Mata Pastor DO PCP: UNRULY Tamez Status: [place] [facility] 10/20/2024 Morgan Barajas Re : Upper GI endoscopy procedure [...] AM This report has been signed electronically. 10/20/241037 Date _ Mata Gaytan Signature: Date (if indicated) CC: MANUFACTURING MAINTENANCE MECHANICLakia Pastor DO ~ Date Dictated: 10/20/24950 Date Transcribed: Hydrologist: DEBBY Signed [facility]04-30-2025 Consult note Author Steve Mckenzie [facility] Note Date/Time October 20, 2024 8:0 6am [facility] Medical Records Department [address] [place] [address] Pre-Anesthesia Evaluation 10/20/24805 MR#: [id number] Acct: [id number] Name: EDRRELL HOYT Rep #:[id number] : 1965 59 From: Steve Mckenzie MD PCP: Morgan Barajas, MANUFACTURING MAINTENANCE MECHANIC-C Status: REG SDC Y Race: C Location: [place] [address] ASA Classification* ASA Classification ASA Classification: 3 [...] COLONOSCOPY, EGD Anesthesia History Anesthesia History - immigration officer: Anesthesia History - immigration officer Hx Hospitalization No 10/18/24 11:26 Any Problems [...] take am of surgery PONV PONV - immigration officer: PONV - immigration officer Female No 10/18/24 11:26 HX of Motion [...] 10/20/24 07:44 Respiratory Assessment Respiratory Assessment - immigration officer: Respiratory Tract Infection Hx - immigration officer Hx Respiratory Tract Infection No 10/18/24 11:26 STOP Sleep Apnea STOP Sleep Apnea - immigration officer: STOP Sleep Apnea - immigration officer Hx Hypertension Yes 10/18/24 11:26 Hx Sleep [...] Tobacco Use History Tobacco Use History - immigration officer: Tobacco Use History - immigration officer Tobacco Use Smoking Status Former smoker 10/18/24 11:26 Hx Tobacco Use No 10/18/24 11:26 Years Smoking Packs Smoked per Day Smoking Cessation Date was No - quit smoking greater 10/18/24 11:26 within the last 15 years than 15 years ago Hx Smoking Cessation Date 06/23/07 10/18/24 11:26 Hx Smoking Cessation No 10/18/24 11:26 Counseling Hematologic Medial History Hematologic Hx - immigration officer: Hematologic Medical Hx - 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 Specify any problems Hx of Preganancy in last 3 N/A 10/18/24 11:26 Months Nurse Filling Out Transfusion [facility] 10/18/24 11:26 & Questions: Date: 10/18/24 10/18/24 11:26 Time: 11:33 10/18/24 11:26 Patient unable to answer at this time (ie. confused, unrespo /Reproduction History /Reproductive History - immigration officer: /Reproductive Hx- immigration officer Hx Now No 10/18/24 11:26 Gestational Age [...] encounter Tumor Atherosclerosis of coronary artery of [place] heart without angina pectoris Kidney stones COPD [...] (8 mg/3 mL) 2 mg subcut .wed DEVIKA BETES 07/13/24 10/06/24 History subcutaneous pen injector [...] additional complaints, except as documented. 10/20/24 0806 <Electronically signed by Steve Mckenzie MD > Date _ Steve Mckenzie MD Cosigner Signature: Date CC: ~ Signed [facility] Work Phone: 1(681) 286-953504-30-2025 History and physical note [facility] Medical Records Department [address] [place] [address] History & Physical Exam 10/20/24 0942 MR#: [id number] Acct: [id number] Name: DERRELL HOYT Rep #:[id number] : 1965 59 From: Mata Friend DO PCP: UNRULY Tamez Status: [facility] Location: [place] [address] HPI - General General Date of Admission: [...] recto-sigmoid colon and in the sigmoid colon. [facility] Medical History Redness of skin Thyroid disease [...] encounter Tumor Atherosclerosis of coronary artery of [place] heart without angina pectoris Kidney stones COPD [...] (8 mg/3 mL) 2 mg subcut .wed DEVIKA BETES 07/13/24 10/06/24 History subcutaneous pen injector [...] 10/20/24 0944 Cosigner Signature (if applicable): CC: MANUFACTURING MAINTENANCE MECHANIC-C Morgan Barajas; Mata Friend, DO~ Signed [facility]04-30-2025 [facility]04-30-2025 Telephone encounter Note* Telephone Encounter - Ana Arroyo LPN - 10/20/2024 9:21 AM EDT Called patient. No answer- left message to call clinic. Patient has appointment in October to see urology for Increased Urination & Dysuria. No referral insystem. Has patient been seen elsewhere for urological issues and if so where? We like to request records for appointment. Ana Arroyo LPN [facility]04-[facility] Evaluation note* Diagnosis Onset Date Resolution Status [...] angioplasty) acute November 19, 2024 1 0:35am [facility] Work Phone: 1(491) 729-155704-30-2025 Evaluation note* Diagnosis Onset Date Resolution Status Admit Date Anemia acute October 20 7:06am Encounter for screening for malignant neoplasm of colon acute Apri 2024 7:06am LUQ pain acute October 20 7:06am Elevated alkaline phosphatas e level acute November 11, 2024 2 :52pm LUQ pain acute November 11, 2024 2:52pm HLD (hyperlipidemia) acute November 19, 2024 10:35am S/P PTCA (percutaneous transluminal coronary angioplasty) acute November 19, 2024 1 0:35am Wound cellulitis acute November 10:28pm [facility] Work Phone: 1(979) 142-405604-30-2025 Evaluation note* Diagnosis Onset Date Resolution Status Admit Date Anemia acute October 20 7:06am Encounter for screening for malignant neoplasm of colon acute Sepi 2024 7:06am LUQ pain acute October 20 7:06am Elevated alkaline phosphatas e level acute November 11, 2024 2 :52pm LUQ pain acute November 11, 2024 2:52pm HLD (hyperlipidemia) acute November 19, 2024 10:35am S/P PTCA (percutaneous transluminal coronary angioplasty) acute November 19, 2024 1 0:35am Wound cellulitis acute November 10:28pm Elevated alkaline phosphatas e level acute December 22, 2024 1 0:00am Iron deficiency anemia acute 2024 10:00am Non-pressure ulcer of left l ower extremity acute December 22, 2024 1 0:00am Wound cellulitis acute December 10:00am Hypoxia acute December 23, 2024 6:46pm [facility] Work Phone: 1(308) 580-287104-30-2025 Evaluation note* Diagnosis Onset Date Resolution Status Admit Date Anemia acute October 20 7:06am Encounter for screening for malignant neoplasm of colon acute 2024 7:06am LUQ pain acute October 20 7:06am Elevated alkaline phosphatas e level acute November 11, 2024 2 :52pm LUQ pain acute November 11, 2024 2:52pm HLD (hyperlipidemia) acute November 19, 2024 10:35am S/P PTCA (percutaneous transluminal coronary angioplasty) acute November 19, 2024 1 0:35am Wound cellulitis resolved November 10:28pm Elevated alkaline phosphatas e level acute December 22, 2024 1 0:00am Iron deficiency anemia acute Ju ly 2024 10:00am Non-pressure ulcer of left lower extremity acute December 22, 2024 1 0:00am Wound cellulitis resolved December 10:00am (HFpEF) heart failure with preserved ejection fraction acute December 23, 2024 6:46pm Acute hypoxic on chronic hypercapnic respiratory failure acute December 23, 2024 6:46pm Hypoxia acute December 23, 2024 6:46pm [facility] Work Phone: 1(939) 158-942404-30-2025 Evaluation note* Diagnosis Onset Date Resolution Status [...] angioplasty) acute November 19, 2024 1 0:35am Wound cellulitis resolved November 10:28pm (HFpEF) heart failure with preserved ejection fraction acute December 23, 2024 6:46pm Acute hypoxic on chronic hypercapnic respiratory failure acute December 23, 2024 6:46pm Hypoxia acute December 23, 2024 6:46pm Elevated alkaline phosphatas e level acute December 29, 2024 9 :45am Iron deficiency anemia acute Ju ly 2024 9:45am Non-pressure ulcer of left lower extremity acute December 29, 2024 9 :45am Wound cellulitis resolved December 9:45am [facility] Work Phone: 1(891) 852-862204-30-2025 Consult note [facility] Medical Records Department [address] [address] Pre-Anesthesia Evaluation 10/20/24 0806 MR#: [id number] Acct: [id number] Name: DERRELL HOYT Rep #:[id number] : 1965 59 From: Steve Mckenzie MD PCP: Morgan Barajas, MANUFACTURING MAINTENANCE MECHANIC-C Status: REG SDC Y Race: C Location: [place] [address] ASA Classification* ASA Classification ASA Classification: 3 [...] COLONOSCOPY, EGD Anesthesia History Anesthesia History - immigration officer: Anesthesia History - immigration officer Hx Hospitalization No 10/18/24 11:26 Any Problems [...] take am of surgery PONV PONV - immigration officer: PONV - immigration officer Female No 10/18/24 11:26 HX of Motion [...] 10/20/24 07:44 Respiratory Assessment Respiratory Assessment - immigration officer: Respiratory Tract Infection Hx - immigration officer Hx Respiratory Tract Infection No 10/18/24 11:26 STOP Sleep Apnea STOP Sleep Apnea - immigration officer: STOP Sleep Apnea - immigration officer Hx Hypertension Yes 10/18/24 11:26 Hx Sleep [...] Tobacco Use History Tobacco Use History - immigration officer: Tobacco Use History - immigration officer Tobacco Use Smoking Status Former smoker 10/18/24 11:26 Hx Tobacco Use No 10/18/24 11:26 Years Smoking Packs Smoked per Day Smoking Cessation Date was No - quit smoking greater 10/18/24 11:26 within the last 15 years than 15 years ago Hx Smoking Cessation Date 06/23/07 10/18/24 11:26 Hx Smoking Cessation No 10/18/24 11:26 Counseling Hematologic Medial History Hematologic Hx - immigration officer: Hematologic Medical Hx - 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 Specify any problems Hx of Preganancy in last 3 N/A 10/18/24 11:26 Months Nurse Filling Out Transfusion EHVADO 10/18/24 11:26 & Questions: Date: 10/18/24 10/18/24 11:26 Time: 11:33 10/18/24 11:26 Patient unable to answer at this time (ie. confused, unrespo /Reproduction History /Reproductive History - immigration officer: /Reproductive Hx- immigration officer Hx Now No 10/18/24 11:26 Gestational Age [...] encounter Tumor Atherosclerosis of coronary artery of [place] heart without angina pectoris Kidney stones COPD [...] (8 mg/3 mL) 2 mg subcut .wed DEVIKA BETES 07/13/24 10/06/24 History subcutaneous pen injector [...] MD Cosigner Signature: Date CC: ~ Signed [facility]01-21-2025 Evaluation note* Diagnosis Onset Date Resolution [...] 7:06am LUQ pain acute October 20 7:06am [facility] Work Phone: 1(113) 274-550801-02-2025 Consult note Author Diego Tejeda [facility] Note Date/Time October 20, 2024 10: 46am [facility] Medical Records Department [address] [place] [address] Anesthesia Postop Eval I 10/20/24 1045 MR#: [id number] Acct: [id number] Name: DERRELL HOYT Rep #:[id number] : 1965 59 From: Diego Tejeda PCP: CHRISTIANO TamezC Status: REG SDC Y Race: C Location: [place] [address] Anesthesia: Postop Eval I Current Vital Signs [...] by Diego Tejeda > Date _ Diego Tejeda Cosigner Signature: Date CC: ~ Signed [facility] Work Phone: 1(164) 266-856706-05-2024 Telephone encounter Note* Telephone Encounter - Yris Lyn MA - 11/26/2023 3:38 PM EDT Left voicemail for patient to return call in regards to Providers message. Follow up appointment for patient already made. I am going to see if the patient wants to have the monitor mailed to him or if he wants to come in the office to have it put on. [facility]06-05-2024 Miscellaneous Notes* Telephone Encounter - Yris Lyn [...] EDT Patient seen by Dr. Arroyo at [facility] for RVOT [place]. He was sent home on Lopressor 100mg twice daily. Patient needs a 30-day event monitor then Hospital follow-up in 8 weeks. [facility] Telephone encounter Note * Telephone Encounter - Bob Du APRN.CNP - 11/26/2023 3:09 PM EDT Patient seen by Dr. Arroyo at [facility] for RVOT [place]. He was sent home on Lopressor 100mg twice daily. Patient needs a 30-day event monitor then Hospital follow-up in 8 weeks. [facility] Work Phone: 1(806) 683-292506-01-2024 NoteHNO ID: [id number] Author: CHIDI FRENCH RN Service: Care Management Author Type: Registered Nurse Type: Care Mgt Progress Note Filed: 11/22/2023 14:07 Note Text: CARE MANAGEMENT DISCHARGE NOTE SERVICE DATE: November 22, 2023 SERVICE TIME: 1:48 PM Admission Date: 11/18/2023 LOS: 4 days Discharge Arrangement Services Arranged Provider Name: Phone: Caregiver Assessment Transportation Arrangements Handoff Communication: Additional Information: patient to d/c back to [facility] today. [facility] to setup transport at d/c, transport setup for 5:30pm today. Transport form completed. SIGNATURE: Chidi French RN PATIENT NAME: Derrell Hoyt DATE: November 22, 2023 TIME: 1:47 PM CONTACT #: [phone]05-31-2024 NoteHNO ID: [id number] Author: AIXA PAEZ DO Service: Hospital Medicine [...] so certainly will need blood sugar control long-term - gave half as much as usual insulin glargine last night can possibly uptitrate once eating tomorrow, hypoglycemia protocol there, avoid metformin for now due to heart cath for 72 hours Hypothyroidism Pt does endorse occasional brittle nails but no overwhelming syndrome of hypothyroidism though otherwise is nonspecific, does likely ne (more content not included)...[facility]05-31-2024 NoteHNO ID: [id number] Author: EDGAR STEVENSON LSW Service: Care Management Author Type: Ostomy Nurse Type: Care Mgt Progress Note Filed: 11/21/2023 [...] in the lateral wall. Pt is from [facility] and can d/c back when medically cleared. Transport referral and forms saved in [facility]. recreation establishment manager, Steffen, from [facility] called asking when patient is discharged that AVS/discharge summary is sent to them at [phone] SIGNATURE: ROSALIO Núñez PATIENT NAME: Derrell Hoyt DATE: November 21, 2023 TIME: 2:49 PM PAGER/CONTACT #: [phone] Hills Hospital05-31-2024 NoteHNO ID: [id number] Author: CHIDI ARROYO MD Service: Cardiovascular Medicine [...] HDL Cholesterol, Nonfasting 24 11/20/2023 LDL Chol, [place] 38 11/20/2023 Hemoglobin A1C 8.5 01/20/2021 TSH [...] within normal limits. ECHO: TRANSTHORACIC ECHOCARDIOGRAM AT [facility] NOVEMBER 19, 2023: CONCLUSIONS: - Technically [...] on 01/19/2021 SS TEST: STRESS TEST AT [facility] NOVEMBER 20, 2023: CONCLUSIONS: 1. SPECT Perfusion Study: Abnormal. 2. No evidence of scarred myocardium. 3. There is mild (<10%) (more content not included)...[facility] 11-20-2023 NoteHNO ID: [id number] Author: AIXA PAEZ DO Service: Hospital Medicine [...] since notably also on trazodone, Planning for [facility] tomorrow, monitoring tolerance on uptitrated dose [...] up in 4-6 weeks repeat TSH Pending [facility] for further determination by Cardiology, Medication and Non-Pharmacologic VTE Prophylaxis/Anticoagulants Anticoagulant AND Antiplatelet Medications (From admission, onward) St (more content not included)...[facility]05-30-2024 NoteHNO ID: [id number] Author: CHIDI ARROYO MD Service: Cardiovascular Medicine [...] HDL Cholesterol, Nonfasting 24 11/20/2023 LDL Chol, [place] 38 11/20/2023 Hemoglobin A1C 8.5 01/20/2021 TSH 10.919 11/18/2023 Uric Acid 6.6 11/20/2023 TELEMETRIC MONITORING: No events recorded overnight or today. Unfortunately events were erased we believe this morning. Per nursing patient did not have any ventricular ectopy overnight. He is currently in normal sinus rhythm. EKG: Normal sinus rhythm at 85 bpm. ECHO: TRANSTHORACIC ECHOCARDIOGRAM AT [facility] NOVEMBER 19, 2023: CONCLUSIONS: - Technically [...] on 01/19/2021 SS TEST: STRESS TEST AT [facility] NOVEMBER 20, 2023: CONCLUSIONS: 1. SPECT [...] List: 1. Right ventric (more content not included)...[facility]05-30-2024 NoteHNO ID: [id number] Author: GALINA MATHEWS RT(R) Service: ? Author Type: Technologist [...] PATIENT PRESENTS WITH AN IMPLANTABLE OR ATTACHED SSDS MK 2 ADVANCED OPERATOR: No CREATININE: Creatinine Date Value Ref Range [...] documentation PROCEDURE TYPE: NM Stress: 16.9 mCi [id number]-[id number] was administered IV for Rest Imaging at 0810 by [facility]. 53.8 mCi Aj18q-Hnzpsdm was administered IV for Stress Imaging at 0930 by [facility]. ADMINISTRATION TIME: 09:30 PATIENT DISCHARGED TO: Patient taken to IP transport area for return to RNF/ICU/ED. A Diagnostic radioactive procedure has taken place, with no further precautions necessary other than routine body substance precautions. More information regarding radiation safety can be found using this link: [email or web address] 20Diagnostic%20Nuclear%20Medicine%20Procedures.pdf SIGNATURE: RT Aracely(R) PATIENT NAME: Derrell Hoyt DATE: November 20, 2023 TIME: 9:31 AM PAGER/CONTACT #:[facility]05-29-2024 NoteHNO ID: [id number] Author: AIXA PAEZ DO Service: Hospital Medicine [...] test and has in (more content not included)...[facility]05-29-2024 NoteHNO ID: [id number] Author: EDGAR STEVENSON LSW Service: Care Management Author Type: Ostomy Nurse Type: Care Mgt Initial Assessment Filed: 11/19/2023 16:12 Note Text: CARE MANAGEMENT: ASSESSMENT AND DISCHARGE PLAN SERVICE DATE: November 19, 2023 SERVICE TIME: 11:05AM PCP: Nain Paez MD Primary Contact: Extended Emergency Contact Information Primary Emergency Contact: Nikunj Hoyt Relation: Daughter Secondary Emergency Contact: [facility] Relation: Other Admission Status: Inpatient Insurance Provider: DANIELE [employer]LL[employer]TH MEDICARE Discharge Planning requested by: Per Department Practice Potential Transition Plans No Services Indicated Advance Directives Current Advance Directive: None Ruling Technician Attempted to Assist with AD Completion: Yes Action: Education Provided;Patient Unwilling Current Living Arrangements and Support Lives with: Type of Residence: Assisted Living Facility Does the patient have to climb stairs at home?: No Care Facility Name: [facility] Support: recreation establishment manager/director of social services, Home care staff How do you manage to accomplish the following: Independent: Ambulation;Bathe/Shower;Dress;Going to the bathroom Needs Assistance: Medication Management Dependent: Meals/Meal Prep;Transportation to appointments/community Current Services/Equipment Current Post-Acute Service(s): None Discharge Planning Patient Goal(s): Increase strength, General wellness [place] of Choice Explained: pt wants to return [...] transportation financial coverage discussed with family?: Patient Cutter Apprentice Hand Location: [facility] Destination: [facility] Financial Care Management Responsibility: None Needs Prior to Discharge: Needs Prior to Discharge: To Be Determined;Discharge Prescriptions Post-Acute Discharge Plan: Chart reviewed. patient is a 58-year-old male who resides in an assisted living facility. Reportedly became lightheaded yesterday and nursing supposedly checked on him and noted him to have a low heart rate. [facility] requested transfer to [facility] for evaluation by electrophysiology -pt with several episodes of NSVT, cards consulted -pt with h/o COPD, CHF, DM2, morbid obesity, hypertension Patient lives at [facility] in [place] and pt desires to return there. Pt [...] transportation set up. [facility] to follow for dc back to [place] SIGNATURE: ROSALIO Núñez PATIENT NAME: Derrell Hoyt DATE: November 19, 2023 TIME: 2:05 PM CONTACT #: [id number] Hills Hospital05-01-2024 History of Present illness Narrative* OctoberGalina RT(R) - 11/20/2023 9:31 AM EDT RADIOLOGY [...] (Walker, Cane, Wheelchair, Crutches, etc.)? Inpatient: Screened onfloor PATIENT GENDER DATA: .male ALLERGIES: Reviewed and unchanged MEDICATIONS REVIEWED: Not applicable PATIENT RELEVANT IMPLANT DATA REVIEWED: Not Applicable PATIENT PRESENTS WITH AN IMPLANTABLE OR ATTACHED SSDS MK 2 ADVANCED OPERATOR: No CREATININE: Creatinine Date Value Ref Range [...] documentation PROCEDURE TYPE: NM Stress: 16.9 mCi Mn95j-Lswqwtt was administered IV for Rest Imaging at 0810 by [facility]. 53.8 mCi Qz70p-Srnuzmz was administered IV for Stress Imaging at 0930 by [facility]. ADMINISTRATION TIME: 09:30 PATIENT DISCHARGED TO: Patient taken to IP transport area for return to RNF/ICU/ED. A Diagnostic radioactive procedure has taken place, with no further precautions necessary other than routine body substance precautions. More information regarding radiation safety can be found using[facility]uuxs link: [email or web address] 20Diagnostic%20Nuclear%20Medicine%20Procedures.pdf SIGNATURE: KAYY Jessica) PATIENT NAME: Derrell Hoyt DATE: November 20, 2023 TIME: 9:31 AM PAGER/CONTACT #: documented in this encounterTrumbull [facility] Hospital08-11-2021 NoteHNO ID: [id number] Author: Ton Duckworth APRN.BLUE LEATHER SETTER Service: ? Author Type: Nurse Specialist Type: [...] Yuki Hedrick on 02/27/2021 at 9:45 AM. Ton Duckworth APRN.[facility]08-04-2021 NoteHNO ID: [id number] Author: Sasha Koehler RN Service: Nursing Author Type: Registered Nurse Type: Progress Notes Filed: 01/24/2021 5:56 PM Note Text: Nurse to Nurse report given to CHIRAG Mirza, at [facility], and provided with patient's pickup up ETA today at 2000. Saran expressed concerns about patient managing his own health at the assisted [facility] and wanted to have the D/C orders postpone until tomorrow, with the hope of having the patient admitted to the skill/penitentiary section of [facility]. This nurse spoke with attending, Dr. Broussard, by which it was stated the patient was cleared to go back to the [place] with the new medical regimen by the Electro Physiology. At the [place] patient will not have his new medication available until tomorrow, and this nurse assure to CHIRAG Mirza the patient will have tonight Med prior leaving facility. Per CHIRAG Mirza, she need it the D/C paper be fax to her BANG to [phone]. The discharge paper and MAR were successfully faxed , a copy of the confirmation is in patient's chart.[facility]08-04-2021 NoteHNO ID: [id number] Author: Serenity Virgen RN Service: Care Management Author Type: Registered Nurse Type: Care Mgt Progress Note Filed: 01/24/2021 4:16 PM Note Text: CARE MANAGEMENT DISCHARGE NOTE SERVICE DATE: 01/24/2021 SERVICE TIME: 4:14 PM LOS: 4 days Admission Date: 01/20/2021 DISCHARGE ARRANGEMENT (list agency and phone number) Discharge Arrangement: Assisted living Provider Name: [facility] CAREGIVER ASSESSMENT: HANDOFF COMMUNICATION: Handoff to: Primary Care Physician Primary Care Physician Name/Phone: Dr. Nain Paez [phone] TRANSPORTATION ARRANGEMENTS: Transportation Arrangements: Ambulance/[facility] Transportation Agency and Phone #:: [facility] ( [facility] ) [phone] / [phone] Date of Trip: 01/24/21 Time of Trip: 1999 Type of Service: Wheelchair Is Patient Medicaid Pending?: No Discussion of financial coverage occurred with: Patient Cutter Apprentice Hand Location: [facility] Destination: [facility] Financial Care Management Responsibility: None ADDITIONAL CONTACT RESOURCES: none Patient has been discharged and will return to [facility]. [employer] is transporting patient via at 20:00. Patient notified who will contact his dtr. Calvin. RN aware of discharge time. SIGNATURE: Serenity Virgen RN PATIENT NAME: Derrell Hoyt DATE: January 24, 2021 TIME: 4:14 PM PAGER/CONTACT #: [phone][facility]-2021 NoteHNO ID: [id number] Author: Jose Carlos [facility] Service: Pharmacy Author Type: Pharmacist [...] knowledge of prescribed medication prior to discharge. [place], [facility] January 24, 2021 3:46 PM [...] Your Medications These medications were sent to [facility] [address] [place] [address] ? aspirin, enteric coated 81 mg EC tablet ? atorvastatin 80 mg tablet ? ticagrelor 90 mg tablet ? TRULICITY 4.5 mg/0.5 mL pen [facility]-2021 NoteHNO ID: [id number] Author: Serenity Virgen RN Service: Care Management [...] for now. Discharge plan is return to [facility] when medically ready . SIGNATURE: Serenity Virgen RN PATIENT NAME: Derrell Hoyt DATE: January 24, 2021 TIME: 1:46 PM PAGER/CONTACT #: [phone] [facility]21 NoteHNO ID: [id number] Author: Karolina Broussard MD Service: Hospital Medicine Author Type: Physician Type: Progress Notes Filed: 01/24/2021 8:46 PM Note Text: HOUSE MEDICINE SERVICE PROGRESS NOTE SERVICE DATE: January 24, 2021 SERVICE TIME: 6:45 AM NIGHT AND WEEKEND COVERAGE: From 6 AM to 5 PM: You may reach the House Medicine internet programmer currently assigned to this patient by finding their pager number on the treatment team (they will be assigned as the internet programmer or resident). It is the last four digits in the phone number beginning with ([phone]). We encourage the use of [employer] Secure Chat. SUBJECTIVE HPI: This is a [...] was kept on drip. Patient transferred to [facility] under EP for possible ablation. Outside [...] Labs 01/24/21 034 CA 8.8 Recent Labs 01/24/21347 WBC 13.28* [...] 252* AST 33 ALT 36 Recent Labs 01/24/2134601/23/21 2011 GLUC 15 (more content not included)...[facility]08-03-2021 NoteHNO ID: [id number] Author: Kyra Hinson RN Service: Nursing Author Type: Registered Nurse Type: Nursing Progress Note Filed: 01/23/2021 5:38 PM Note Text: Summary: transfer note Telephone report to Alise BEARD 4206. Plan to transfer when bed is ready.[facility]08-03-2021 NoteHNO ID: [id number] Author: Jose Carlos [facility] Service: Pharmacy Author Type: Pharmacist Type: Plan of Care Filed: 01/24/2021 12:08 PM Note Text: PHARMACY MEDICATION REVIEW Patient Name: Derrell Hoyt : 1965 The following medications were updated within the RADAR [facility]ENT[facility] medication list: Medications ADDED to [facility] medication list acetaminophen (TYLENOL) 325 mg tablet [...] a week. Every Friday. Medications CHANGED on [facility] medication list metFORMIN (GLUCOPHAGE) 1,000 mg tablet [...] by mouth once daily. Medications REMOVED from [facility] medication list levothyroxine (SYNTHROID) 300 mcg tablet (See new strength above) Take 200 mcg by mouth daily before breakfast. aspirin, enteric coated (ASPIRIN, ENTERIC COATED) 81 mg EC tablet (not on Assisted Care MAR) Take [...] collagenase (SANTYL) ointment (not on Assisted Care [facility]) Apply 1 application to affected area once daily. Gauze Bandage 4 X 4 bndg (entry is from March 2019; not in Assisted Care [facility]) Apply 1 application to affected area once daily. sodium chloride (STERILE SALINE) 0.9 % IRRIGATION (entry is from March 2019; not in Assisted Care [facility]) Wet gauze pads liberally, cover ulcer. Gauze Bandage 3 X 75 bndg (entry is from March 2019; not in Assisted Care [facility]) Apply 1 application to affected area once daily. Adhesive Tape (PAPER TAPE) 1 X 10 -yard tape (entry is from March 2019; not in Assisted Care [facility]) Apply 1 application to affected area once daily. Non-Adherent Bandage (TELFA) 8 X 10 bndg (entry is from March 2019; not in Assisted Care [facility]) Apply 1 application to affected area once daily. 4 x 8 inch Additional comments: N/A The below information represents the best possible medication history: Yes Medication history completed by: Pharmacist: Stephanie Hernandez RPh Source of history: group home/Other [facility] - [facility] MAR- faxed from assisted care facility Medication nonadherence identified: No b (more content not included)...[facility]08-03-2021 NoteHNO ID: [id number] Author: Mikhail Vinson MD Service: Cardiovascular Medicine Author Type: Physician Type: Progress Notes Filed: 01/23/2021 3:29 PM Note Text: [facility] CVICU PROGRESS NOTE Service Date: 01/23/2021 Service [...] was kept on drip. Patient transferred to [facility] under EP for possible ablation. Outside [...] Normal rate and r (more content not included)...[facility]08-02-2021 NoteHNO ID: [id number] Author: Eren Spence MD Service: Electrophysiology Author Type: Physician Type: Progress Notes Filed: 01/22/2021 1:40 PM Note Text: PROGRESS NOTE CARDIOLOGY SERVICE [facility] General Electrophysiology (EP) SERVICE DATE: 01/22/2021 SERVICE TIME: [...] Most recent telemetry monitoring Outside chart from [facility], Dr. Graham reviewed. Past 72 Hour [...] HDL Cholesterol, Nonfasting 27 04/12/2019 LDL Chol, [place] Value: Unable to calculate due to increased Triglycerides. See LDL-Chol, Direct. 04/12/2019 Total Cholesterol, Nonfasting 219 04/12/2019 Assessment/Plan Principal Problem: Ventricular tachycardia, nonsustained (HCC) POA: Yes Assessment AND Plan: NSVT; seems to be stable now, not much arrhythmia by cardiac monitoring (more content not included)...[facility] 01-22-2021 NoteHNO ID: [id number] Author: Bethany Douglass MD Service: Hospital Medicine Author Type: Resident Type: Progress Notes Filed: 01/22/2021 2:04 PM Note Text: Attestation signed by Eren Spence MD at 01/22/2021 2:10 PM [facility] Electrophysiology (EP) EP Attending Attending Note I personally saw and examined the patient. I reviewed the resident's note. I agree with the resident's assessment and plan unless otherwise noted (see my separate progress note from today where I articulate my treatment plan). Signature: Eren Spence MD Date: 01/22/2021 Time: 2:09 PM [facility] CVICU PROGRESS NOTE Service Date: 01/22/2021 Service Time: 7:31 AM HPI: This is a 55 year old male with PMH of MDD, T2DM, HTN, COPD, NAFLD, Papillary Thyroid Carcinoma s/p Thyroidectomy --> Hypothyroidism presented [place] [facility] due to palpitations. Patient states he [...] was kept on drip. Patient transferred to [facility] under EP for possible ablation. Outside [...] Meter Kit - [place] (more content not included)...[facility]08-01-2021 Note HNO ID: [id number] Author: Adarsh Wilson MD Service: Cardiovascular Medicine Author Type: Resident Type: Progress Notes Filed: 01/21/2021 11:52 AM Note Text: Attestation signed by Mikhail Vinson MD at 01/21/2021 11:54 AM CVICU PROGRESS NOTE SERVICE DATE: 01/21/2021 SERVICE TIME: 6:15 AM PRIMARY CARE PHYSICIAN: Nain Paez MD Subjective CHIEF COMPLAINT: Chest Pain [...] was kept on drip. Patient transferred to [facility] under EP for possible ablation. Most [...] tablet by mouth once (more content not included)...[facility] 01-18-2021 Evaluation note* Diagnosis Onset Date Resolution Status Atherosclerosis of coronary artery of [place] heart without angina pectoris acute History of coronary artery stent placement January 18, 2021 acute NSVT (nonsustained ventricular tachycardia) acute Hypertension chronic Bradycardia acute Dizziness acute [facility] Work Phone: [phone]) 326-202007-29-2021 Evaluation note* Diagnosis Onset Date Resolution Status Atherosclerosis of coronary artery of [place] heart without angina pectoris acute NSVT (nonsustained ventricular tachycardia) acute History of coronary artery stent placement January 18, 2021 chronic Hypertension chronic Atherosclerosis of coronary artery of [place] heart without angina pectoris acute Bradycardia acute Dizziness acute NSVT (nonsustained ventricular tachycardia) acute History of coronary artery stent placement January 18, 2021 chronic Hypertension chronic [facility] Work Phone: Consult note Author Steve Mckenzie [facility] Note Date/Time October 20, 2024 11: 34am [facility] Medical Records Department [address] [address] Anesthesia Postop Eval II 10/20/24 1108 MR#: [id number] Acct: [id number] Name: DERRELL HOYT Rep #:[id number] : 1965 59 From: Steve Mckenzie MD PCP: Morgan Barajas, MANUFACTURING MAINTENANCE MECHANIC-C Status: REG SDC Y Race: C Location: [place] [address] Anesthesia Postop Eval I Sum Postop Eval [...] MD > Date _ Steve Mckenzie MD [facility] Signature: Date CC: ~ Signed [facility] Work Phone: Discharge summary Author Marcellus Gunn [facility] Note Date/Time December 18, 2024 9:43 am [facility] Medical Records Department [address] [place] [address] Instructions for Home/Discharge Instructions 12/18/24 0933 MR#: [id number] Acct: [id number] Name: DERRELL HOYT Rep #:[id number] : 1965 59 From: Marcellus Cochran PCP: UNRULY Tamez Status: ADM IN Discharge Instructions Diet Discharge Diet: - (Diet: Cardiac: Calorie-Controlled Food consistency:: Regular Liquid Consistency:: Regular/Thin Fluid restriction:: 1500 mL How many daily calories?: 1800 calorie) DC O2, CPAP, BIPAP needs Home O2 Discharge instructions: Yes Type of respiratory needs?: Oxygen Oxygen frequency: Continuous Continuous oxygen liters per minute: 2 Dressing / Incision Discharge Activity: Return to Normal Activity Weight Bearing Status: Weight bearing as tolerated Dressing / Incision Call your doctor if you observe: Fever of 101 or Higher, Coldness, Increased Pain, Numbness or Tingling, Change in Color, Inability to urinate, Inability to have a bowel movement, Shortness of breath, Dizziness, Fainting spells, Swellingin the ankles, Chest pain, Prolonged hiccupping, Increased palpitations (irregular heartbeat) and Calf discomfort Follow Up Care When: IN 2 WEEKS Test Results: Test results from this visit will be discussed in further detail at your follow- up appointment, if applicable. Discharge Plan Admission Admit Date/Time: 12/15/24 22:28 Primary Reason for Your Visit: Bilateral lower extremity lymphedema Attending Provider: Marcellus Gunn Primary Care Provider: Morgan Barajas NP Consulting Providers: Arlette Grigsby Instructions Additional Instructions / Restrictions: Advised to follow [place] lymphedema clinic/wound center Discharge Orders/Prescriptions Prescriptions: New midodrine 10 mg tablet 10 mg PO TIDCM 30 Days Qty: 90 0RF Rx Instructions: Hold if SBP more than 100 mmHg insulin lispro [Humalog KwikPen Insulin] 100 unit/mL Insulin Pen See Protocol subcut ACHS Qty: 0 0RF Protocol: 4. Sliding Scale Insulin High-Med Dosing Condition: 150-199 mg/dl = 2 units Condition: 200-259 mg/dl = 4 units Condition: 260-324 mg/dl = 6 units Condition: 325-374 mg/dl = 8 units Condition: 375-409 mg/dl = 10 units Condition: 410-449 mg/dl = 11 units Condition: Greater than 449 call physician Protocol Text: Suggested for: - Patients on Total Daily Insulin Dose of 56-80 units - Patient who are known to be insulin resistant or septic HIGH MEDIUM DOSING ALGORITHM cephalexin 500 mg capsule 500 mg PO TID 2 Days Qty: 6 0RF Continued tamsulosin 0.4 mg capsule 0.4 mg PO QHS guaifenesin [Mucinex] 600 mg tablet extended release 12hr 600 mg PO Q12H PRN (Reason: CONGESTION ) montelukast [Singulair] 10 mg tablet 10 mg PO QHS PRN (Reason: ALLERGIES ) fluticasone propion-salmeterol [Advair HFA] 115-21 mcg/actuation HFA aerosol inhaler 2 puff inhalation BID melatonin 10 mg tablet 10 mg PO QHS (DME) blood sugar diagnostic Kit See Rx Instructions .Route Rx Instructions: As directed omeprazole 20 mg capsule,delayed release(DR/EC) 20 mg PO DAILY Ozempic 2 mg/dose (8 mg/3 mL) pen injector 2 mg subcut QWEEK Rx Instructions: FRIDAY bisacodyl 10 mg suppository 10 mg AR ONCE PRN (Reason: constipation) venlafaxine 37.5 mg tablet 37.5 mg PO BID sennosides [Greer-danyel] 8.6 mg tablet 17.2 mg PO QDAY finasteride [Proscar] 5 mg [...] 25 mg PO BID Qty: 120 2RF acetaminophen 325 mg capsule 650 mg PO Q6H PRN (Reason: pain) ammonium lactate 12 % cream 1 applic topical BID PRN (Reason: dry skin) AmeriPhor Ointment 1 applic topical DAILY magnesium hydroxide [Dulcolax (magnesium hydroxide)] 400 mg/5 mL suspension 30 ml PO DAILY PRN (Reason: constipation) ondansetron 4 mg tablet,disintegrating 4 mg PO DAILY PRN (Reason: nausea and vomiting) sotalol [Betapace] 120 mg tablet 120 mg PO BID lisinopril 2.5 mg tablet 2.5 mg PO DAILY Changed polyethylene glycol 3350 [Miralax] 17 gram/dose powder 17 g PO DAILY 30 Days Qty: 0 0RF Held glipizide 5 mg tablet 5 mg PO QDAY Hold Instructions: Hold if glucose less than 130 mg/dl insulin glargine [Lantus Solostar U-100 Insulin] 100 unit/mL (3 mL) insulin pen 56 unit subcut QPM Hold Instructions: Hold if glucose less than 130 mg/dl Discontinued doxycycline hyclate 100 mg capsule 100 mg PO BID Referrals / Follow Up: Morgan Barajas NP, MANUFACTURING MAINTENANCE MECHANIC-C [Primary Care Provider] - Disposition Disposition (needs filled in before D/C Order can be placed): Assisted Living 12/18/24942<Electronically signed by Marcellus Gunn MD>Marcellus Gunn MD CC: MANUFACTURING MAINTENANCE MECHANIC-C Morgan Barajas; Dr. Arlette Grigsby MD ~ Signed [facility] Work Phone: Discharge summary Author Marcellus Luis A [facility] Note Date/Time December 18, 2024 9:49 am [facility] Medical Records Department [address] [place] [id number] Discharge Summary 12/18/24942 MR#: [id number] Acct: [id number] Name: DERRELL HOYT Rep #:[id number] : 1965 59 From: Marcellus Cochran PCP: UNRULY Tamez Status: ADM IN Location: [place] [address] Providers Date of Admission: 12/15/24 Primary Care Physician: UNRULY Tamez Consultations 12/15/24 23:05 Consult: Onc/Wound/claims processor Routine Comment: Reason for Consult:: LLE stasis wound Reason For Visit: LLE WOUND, HFpEF EXAC Diagnosis Discharge Diagnosis (1) Wound cellulitis: Status: Acute Code(s): L03.90 - Cellulitis, unspecified Plan The patient is a 59 y/o M admitted with left foot wound that has been draining for last couple weeks but started draining #1. Left lower extremity extremity edema by BL LE venous stasis disease complicated with hypotension due to diabetic: Patient admitted in PCU. Patient started on furosemide 40 mg twice daily but got hypotensive in the afternoon 83/44. IV Lasix to be hold and if blood pressure permits then Ferrazone 40 mg twice daily. Midodrine 10 mg 3 times daily started. Discussed with the wound nurse and she thinks mainly venous congestion/edema not cellulitis. On vancomycin and Zosyn titrated down to IV ceftriaxone and doxycycline. Prelim wound culture shows 2+ GPR 12/17: Leg swelling is getting better. Now swelling up to the knee level. 12/18: Leg swelling is much better. Discharged on furosemide 40 mg twice daily. #2. Acute Hypoxia, suspected primarily secondary to SHAHANA, Morbid obesity hypoventilation syndrome, ECHO noted 11/19/2023 from [facility] with LV mildly dilated, moderate concentric LVH, LV systolic function normal, EF 63? percent thus will Echo 12/16/2024 suggestive of chronic HFpEF Mild concentric left ventricular hypertrophy. The LV ejection fraction is 65 %. Stage 1 diastolic dysfunction. There is mild biatrial dilatation. The study was technically difficult. 12/17 on 2 L of oxygen pulse ox 98% 12/18: Patient's blood pressure is still 104/7054. On midodrine 10 mg 3 times daily advised to hold if SBP more than 100 mmHg. Prescription for midodrine given. #3. Chronic COPD/asthma with allergic rhinitis: Current ATC duonebs, PRN albuterol, HOB, IS parameters, continue home montelukast regimen. #4. Chronic microcytic anemia/iron deficiency anemia: Admission hemoglobin 8.6,MCV 73.3, baseline hemoglobin noted previously 11/30/2024 9.4 and prior to this 03/31/2024 hemoglobin 11.7, has trended downward, currently does not appear to belisted on antiplatelet therapy, potentially bleed related, will obtain iron panel, ferritin, guaiac to be cautious and trend CBC. 12/17 H&H 7.9/19.8%. Platelet count 197K. #5. History NSVT: Will continue patient on sotalol and metoprolol regimen, following with EP cardiology per most recent cardiology note 11/19/2024. #6. CAD: Status post previous PCI LAD PTCA/bare-metal stent 2020, will continuepatient home metoprolol, lisinopril, statin therapy, clarifying antiplatelet regimen. #7. Diabetes mellitus type II complicated with hypoglycemia: A1c 5.3, glucose 42. Most recent glucose is 101, 126, 112. Hold scheduled insulin. Accu-Chek AC and at bedtime incorrigible of sliding 12/17: # He has hypoglycemia with glucose dropping to 42 in BMP. Did not gettingany insulin. On hypoglycemia protocol. 12/18 patient glucose still about 119, 1908. Advised to hold his scheduled Lantus insulin. Discharged on sliding scale hemoglobin splint, prescription given #8. Anxiety and depression: = continue patient home venlafaxine and low-dose trazodone regimen with hold for sedation if necessary. #9. Hypertension: continue patient home sotalol, lisinopril IV Lasix as noted. As needed IV hydralazine. #10. Hyperlipidemia: Lipid profile shows HDL 32, LDL 23, total cholesterol 72. #11. Hypothyroidism: Status post previous thyroidectomy, resulting hypothyroidism, will continue patient home levothyroxine regimen. #12. Former tobacco usage: Encourage continued tobacco cessation. #13. Morbid Obesity: Weight loss and lifestyle changes encouraged. #14. SHAHANA: continue CPAP nightly. #15. BPH with obstructive pathology: Will continue patient on Flomax and finasteride regimen, monitor for urinary retention. #16. GERD: Will continue patient on PPI. #17. DVT prophylaxis: SCDs, clarifying why patient is not on antiplatelet therapies and given worsening anemia will hold off on chemoprophylaxis, add if workup unremarkable and noted to be clinically appropriate. #18. CODE status: Patient HCPOA and living will are not in place but he notes his daughter would be his medical decision-maker if necessary. Discussed CODE status at length including difference between FULL code, DNR-CCA and DNR-CC status. Following discussions about the differences in these status, requested Full Code status. Discharge medication reconciliation done. Discharge follow-up instructions completed. Discharge process discussed with the patient and all questions wereanswered to patient's satisfaction. Follow with PCP in 1 to 2 weeks Total time spent, exact 35 minutes on discharge meds reconciliation, examination, coordination of care with nurses and ancillary staff, review of imaging and blood test and discussion with the patient on follow-up instructions. Clinical Impression(s) from Imaging Studies Chest X-Ray 12/15/24 20:40 IMPRESSION: Findings compatible with CHF/volume overload. Reading Location: [facility] Echocardiogram 12/15/24 23:05 Interpretation Summary Mild concentric left ventricular hypertrophy. The LV ejection fraction is 65 %. Stage 1 diastolic dysfunction. There is mild biatrial dilatation. The study was technically difficult. 12/15/24 23:30 Wound - Leg, Left Gram Stain - Final Laboratory Results 12/15/24 19:00: WBC 11.5 H, RBC 4.31 L, Hgb 8.6 L, Hct 31.6 L, MCV 73.3 L, MCH 20.0 L, MCHC 27.2 L, RDW Std Deviation 53.4 H, RDW Coeff of Jovany 20.6 H, Plt Count 217, MPV 9.4, Immature Gran % (Auto) 0.300, Neut % (Auto) 78.6 H, Lymph % (Auto) 12.0 L, [place] % (Auto) 7.7, Eos % (Auto) 1.1, Baso % (Auto) 0.3, Absolute Neuts (auto) 9.0 H, Absolute Lymphs (auto) 1.38, Nucleated RBC % 0, DifferentialComment SCANNED, Platelet Estimate ADEQUATE, Polychromasia 1+, Anisocytosis 1+, Sodium 133, Potassium 4.4, Chloride 92 L, Carbon Dioxide 30.8, Anion Gap 10, BUN14, Creatinine 0.73, Estim Creat Clear Calc 165.21, Est GFR (MDRD) Non-Af 105, BUN/Creatinine Ratio 19.3, Glucose 116 H, Calcium 8.9, Magnesium 2.1, NT pro BNPII 220, Procalcitonin 0.10 12/15/24 20:57: Lactic Acid 2.2 H* 12/16/24 05:00: WBC 10.8, RBC 3.98 L, Hgb 7.9 L, Hct 29.9 L, MCV 75.1 L, MCH 19.8 L, MCHC 26.4 L, RDW Std Deviation 55.1 H, RDW Coeff of Jovany 20.4 H, Plt Count 197, MPV 9.3, Immature Gran % (Auto) 0.300, Neut % (Auto) 79.2 H, Lymph % (Auto) 11.6 L, [place] % (Auto) 7.2, Eos % (Auto) 1.3, Baso % (Auto) 0.4, Absolute Neuts (auto) 8.6 H, Absolute Lymphs (auto) 1.25, Nucleated RBC % 0, Anisocytosis2+, Sodium 137, Potassium 4.0, Chloride 96 L, Carbon Dioxide 30.2, Anion Gap 11,BUN 14, Creatinine 0.66 L, Estim Creat Clear Calc 181.02, Est GFR (MDRD) Non-Af 108, BUN/Creatinine Ratio 21.5 H, Glucose 42 L*, Hemoglobin A1c 5.3, Lactic Acid1.6, Calcium 8.3, Iron 20 L, TIBC 295, Iron Saturation 7.0 L, Unsaturated IBC 275, Ferritin 12 L, Total Bilirubin 0.49, AST 24, ALT 17, Alkaline Phosphatase 251 H, Total Protein 6.9, Albumin 3.2 L, Globulin 3.7, Albumin/Globulin Ratio 0.9, Triglycerides 83, Cholesterol 72, LDL Cholesterol, Calc 23, VLDL Cholesterol 17, HDL Cholesterol 32 L, Cholesterol/HDL Ratio 2.25, TSH 8.580 H 12/16/24 06:25: POC Glucose 39 L* 12/16/24 06:50: POC Glucose 100 12/16/24 09:01: POC Glucose 54 L 12/16/24 09:47: POC Glucose 112 H 12/16/24 11:43: POC Glucose 126 H 12/16/24 12:05: MRSA (PCR) Pending 12/16/24 15:00: POC Glucose 101 Medications at Discharge Home Medications potassium chloride 20 mEq tablet,extended release(part/cryst) 20 meq PO DAILYCM SUPPLEMENT 04/23/19 metformin 1,000 mg tablet 1,000 mg PO BID DIABETES 01/18/21 tamsulosin 0.4 mg capsule 0.4 mg PO QHS PROSTATE 02/05/21 albuterol sulfate 90 mcg/actuation aerosol inhaler 2 puff inhalation Q4H PRN SHORTNESS OF BREATH/WHEEZING 02/11/21 montelukast 10 mg tablet (Singulair) 10 mg PO QHS PRN ALLERGIES 01/10/22 guaifenesin 600 mg tablet, extended release 12 hr (Mucinex) 600 mg PO Q12H PRN CONGESTION 02/04/22 fluticasone propionate 115 mcg-salmeterol 21 mcg/actuation HFA inhaler (Advair HFA) 2 puff inhalation BID COPD 07/31/22 blood sugar diagnostic 11/25/22 atorvastatin 80 mg tablet 80 mg PO QHS CHOLESTEROL 11/18/23 metoprolol tartrate 25 mg tablet 25 mg PO BID #120 tabs 03/31/24 levothyroxine 200 mcg tablet 275 mcg PO DAILY THYROID 07/07/24 omeprazole 20 mg capsule,delayed release 20 mg PO DAILY GERD 07/13/24 semaglutide 2 mg/dose (8 mg/3 mL) subcutaneous pen injector (Ozempic) 2 mg subcut QWEEK DIABETES 07/13/24 insulin glargine 100 unit/mL (3 mL) subcutaneous pen (Lantus Solostar U-100 Insulin) 56 unit subcut QPM 09/13/24 Held on 12/18/24. Instructions: Hold if glucose less than 130 mg/dl lisinopril 2.5 mg tablet 2.5 mg PO DAILY 10/20/24 finasteride 5 mg tablet (Proscar) 5 mg PO QDAY 11/11/24 glipizide 5 mg tablet 5 mg PO QDAY 11/11/24 Held on 12/18/24. Instructions: Hold if glucose less than 130 mg/dl melatonin 10 mg tablet 10 mg PO QHS SLEEP 11/11/24 sennosides 8.6 mg tablet (Greer-danyel) 17.2 mg PO QDAY 11/11/24 trazodone 50 mg tablet 150 mg PO QHS SLEEP 11/11/24 bisacodyl 10 mg rectal suppository 10 mg AR ONCE PRN constipation 11/19/24 furosemide 40 mg tablet 40 mg PO BID EDEMA 11/19/24 venlafaxine 37.5 mg tablet 37.5 mg PO BID 11/19/24 acetaminophen 325 mg capsule 650 mg PO Q6H PRN pain 11/30/24 ammonium lactate 12 % topical cream 1 applic topical BID PRN dry skin 11/30/24 magnesium hydroxide 400 mg/5 mL oral suspension (Dulcolax (magnesium hydroxide))30 ml PO DAILY PRN constipation 11/30/24 mineral oil-hydrophil petrolat topical ointment (AmeriPhor topical ointment) 1 applic topical DAILY 11/30/24 ondansetron 4 mg disintegrating tablet 4 mg PO DAILY PRN nausea and vomiting 11/30/24 sotalol 120 mg tablet (Betapace) 120 mg PO BID 11/30/24 cephalexin 500 mg capsule 500 mg PO TID 2 days #6 caps 12/18/24 insulin lispro 100 unit/mL subcutaneous pen (Humalog KwikPen (U-100) Insulin) See Protocol subcut ACHS #0 mL 12/18/24 insulin lispro 100 unit/mL subcutaneous pen (Humalog KwikPen (U-100) Insulin) See Protocol subcut ACHS 1 month #15 mL 12/18/24 midodrine 10 mg tablet 10 mg PO TIDCM 30 days #90 tabs 12/18/24 needle (disp) 32 gauge 32 gauge x 5/16 #100 ea 12/18/24 polyethylene glycol 3350 17 gram/dose oral powder (Miralax) 17 g PO DAILY Constipation 30 days #0 grams 12/18/24 Physical Exam Narrative Seen and examined Blood pressure is above systolic 100. Bilateral leg swellings have improved no fever. Hypoglycemia corrected Physical exam General: Alert, Oriented x3, Cooperative. Morbid obesity BMI 44.6 kg/m? HEENT: Atraumatic, PERRLA, EOMI, Normocephalic. Oral: No Gingival or Mucosal Lesions/ Ulcerations Neck: Supple, No JVD, Negative Carotid Bruits Chest wall/Lungs: Air entry diminished in bilateral lung bases. No crepitation/rhonchi Cardiovascular: Regular rate and rhythm, Normal S1,S2, No M/G/R Abdomen: Bowel Sounds Present, Soft, Non Tender, Non-Distended : No dysuria. No renal angle tenderness. No suprapubic tenderness. Extremities: Lower extremity edema have improved. Continue Darell wrap and, Capillary Refill Less than 3 Seconds Skin: Bilateral venous congestion suggestive of venous hypertension/stasis Musculoskeletal: Bilateral lower extremity swelling up to knee level with chronic skin/subcutaneous thickening Neurological: Cranial nerves II-XII grossly intact, DTR 2+/4. No acute focal neurological deficit. Psych/Mental Status: Flat affect Weight / BMI Weight Weight: 332 lb 14.368 oz Body Mass Index (BMI) 45.1 ABG / Lab / Microbiology Data 12/16/24 05:00 12/16/24 05:00 Laboratory: Laboratory Results - last 24 hr 12/17/24 10:53: POC Glucose 125 H 12/17/24 16:26: POC Glucose 119 H 12/17/24 22:02: POC Glucose 99 12/18/24 06:12: POC Glucose 108 H Microbiology: Microbiology 12/15/24 20:56 Blood Culture (Wb) - Anticubital Left Blood Culture - Preliminary No growth in 48 hours. 12/15/24 19:00 Blood Culture (Wb) - Right Forearm Blood Culture - Preliminary No growth in 48 hours. 12/15/24 23:30 Wound - Leg, Left Gram Stain - Final 12/15/24 23:30 Wound - Leg, Left Wound Culture - Preliminary Mixed Gram Pos & Gram Neg Org 12/15/24 23:30 Wound - Leg, Left Skin and Soft Tissue MRSA/MSSA (PCR - Final D/C Instructions Discharge Diet: - (Diet: Cardiac: Calorie-Controlled Food consistency:: Regular Liquid Consistency:: Regular/Thin Fluid restriction:: 1500 mL How many daily calories?: 1800 calorie) Weight Bearing Status: Weight bearing as tolerated Call your doctor if you observe: Fever of 101 or Higher, Coldness, Increased Pain, Numbness or Tingling, Change in Color, Inability to urinate, Inability to have a bowel movement, Shortness of breath, Dizziness, Fainting spells, Swellingin the ankles, Chest pain, Prolonged hiccupping, Increased palpitations (irregular heartbeat) and Calf discomfort DC O2, CPAP, BIPAP Needs Home O2 Discharge instructions: Yes Type of respiratory needs?: Oxygen Oxygen frequency: Continuous Continuous oxygen liters per minute: 2 DC home with Oxygen: Yes Home O2 MD Review: I have reviewed the oxygen testing, and the patient qualifies for home oxygen equipment and portability. The patient is mobile in the home and the community. When: IN 2 WEEKS Meaningful Use Info Meaningful Use Meaningful Use Diagnoses (Choose all that apply): None applicable Ischemic Stroke Statin Dosing Therapy Reference: STATIN DOSE THERAPY REFERENCE: * Patients > 75 years receive moderate or high dose statin therapy. * Patients 75 years or YOUNGER should receive HIGH intensity statin dose unless contraindicated. You will be required to document reason for non-treatment if statin daily dose does not meet guidelines. HIGH DOSE STATIN THERAPY DAILY Atorvastatin > than or = to 40 mg Rosuvastatin > than or = to 20 mg Amlodipine + Atorvastatin > than or = to 2.5/40 mg Ezetimibe + Simvastatin 10/80 mg Simvastatin 80mg Discharge Plan Admission Admit Date/Time: 12/15/24 22:28 Primary Reason for Your Visit: Bilateral lower extremity lymphedema Attending Provider: Marcellus Gunn Primary Care Provider: Morgan Barajas MANUFACTURING MAINTENANCE MECHANIC Consulting Providers: Arlette Grigsby Instructions Additional Instructions / Restrictions: Advised to follow [place] lymphedema clinic/wound center Discharge Orders/Prescriptions Prescriptions: New midodrine 10 mg tablet 10 mg PO TIDCM 30 Days Qty: 90 0RF Rx Instructions: Hold if SBP more than 100 mmHg insulin lispro [Humalog KwikPen Insulin] 100 unit/mL Insulin Pen See Protocol subcut ACHS Qty: 0 0RF Protocol: 4. Sliding Scale Insulin High-Med Dosing Condition: 150-199 mg/dl = 2 units Condition: 200-259 mg/dl = 4 units Condition: 260-324 mg/dl = 6 units Condition: 325-374 mg/dl = 8 units Condition: 375-409 mg/dl = 10 units Condition: 410-449 mg/dl = 11 units Condition: Greater than 449 call physician Protocol Text: Suggested for: - Patients on Total Daily Insulin Dose of 56-80 units - Patient who are known to be insulin resistant or septic HIGH MEDIUM DOSING ALGORITHM cephalexin 500 mg capsule 500 mg PO TID 2 Days Qty: 6 0RF insulin lispro [Humalog KwikPen Insulin] 100 unit/mL insulin pen See Protocol subcut ACHS 30 Days Qty: 15 2RF Protocol: 4. Sliding Scale Insulin High-Med Dosing Condition: 150-199 mg/dl = 2 units Condition: 200-259 mg/dl = 4 units Condition: 260-324 mg/dl = 6 units Condition: 325-374 mg/dl = 8 units Condition: 375-409 mg/dl = 10 units Condition: 410-449 mg/dl = 11 units Condition: Greater than 449 call physician Protocol Text: Suggested for: - Patients on Total Daily Insulin Dose of 56-80 units - Patient who are known to be insulin resistant or septic HIGH MEDIUM DOSING ALGORITHM Rx Instructions: Hold if glucose less than 130 mg/dl (DME) needle (disp) 32 gauge 32 gauge x 5/16 needle See Rx Instructions .ROUTE .MEDSUPPLY Qty: 100 2RF Rx Instructions: As directed Continued tamsulosin 0.4 mg capsule 0.4 mg PO QHS guaifenesin [Mucinex] 600 mg tablet extended release 12hr 600 mg PO Q12H PRN (Reason: CONGESTION ) montelukast [Singulair] 10 mg tablet 10 mg PO QHS PRN (Reason: ALLERGIES ) fluticasone propion-salmeterol [Advair HFA] 115-21 mcg/actuation HFA aerosol inhaler 2 puff inhalation BID melatonin 10 mg tablet 10 mg PO QHS (DME) blood sugar diagnostic Kit See Rx Instructions .Route Rx Instructions: As directed omeprazole 20 mg capsule,delayed release(DR/EC) 20 mg PO DAILY Ozempic 2 mg/dose (8 mg/3 mL) pen injector 2 mg subcut QWEEK Rx Instructions: FRIDAY bisacodyl 10 mg suppository 10 mg AR ONCE PRN (Reason: constipation) venlafaxine 37.5 mg tablet 37.5 mg PO BID sennosides [Greer-danyel] 8.6 mg tablet 17.2 mg PO QDAY finasteride [Proscar] 5 mg [...] 25 mg PO BID Qty: 120 2RF acetaminophen 325 mg capsule 650 mg PO Q6H PRN (Reason: pain) ammonium lactate 12 % cream 1 applic topical BID PRN (Reason: dry skin) AmeriPhor Ointment 1 applic topical DAILY magnesium hydroxide [Dulcolax (magnesium hydroxide)] 400 mg/5 mL suspension 30 ml PO DAILY PRN (Reason: constipation) ondansetron 4 mg tablet,disintegrating 4 mg PO DAILY PRN (Reason: nausea and vomiting) sotalol [Betapace] 120 mg tablet 120 mg PO BID lisinopril 2.5 mg tablet 2.5 mg PO DAILY Changed polyethylene glycol 3350 [Miralax] 17 gram/dose powder 17 g PO DAILY 30 Days Qty: 0 0RF Held glipizide 5 mg tablet 5 mg PO QDAY Hold Instructions: Hold if glucose less than 130 mg/dl insulin glargine [Lantus Solostar U-100 Insulin] 100 unit/mL (3 mL) insulin pen 56 unit subcut QPM Hold Instructions: Hold if glucose less than 130 mg/dl Discontinued doxycycline hyclate 100 mg capsule 100 mg PO BID Referrals / Follow Up: Morgan Barajas MANUFACTURING MAINTENANCE MECHANIC, MANUFACTURING MAINTENANCE MECHANIC-C [Primary Care Provider] - Disposition Disposition (needs filled in before D/C Order can be placed): Assisted Living Charges/Coding Visit Charges Inpatient E&M: 00304 Disch Hosp >30min 12/18/24 0949 <Electronically signed by Marcellus Gunn MD> Cosigner Signature (if applicable): CC: MANUFACTURING MAINTENANCE MECHANIC-C Morgan Barajas; Dr. Marcellus Gunn MD~ Signed [facility] Work Phone: Evaluation note* Diagnosis Onset Date Resolution Status Bradycardia resolved Dizziness resolved [facility] Work Phone: Evaluation note* Diagnosis Onset Date Resolution Status Morbid obesity acute SOB (shortness of breath) ac levelock [facility] Work Phone: Evaluation note* Diagnosis Onset Date Resolution Status Morbid obesity acute SOB (shortness of breath) ac [place] Atherosclerosis of coronary artery of [place] heart without angina pectoris acute HLD (hyperlipidemia) acute S/P PTCA (percutaneous trans luminal coronary angioplasty) acute [facility] Work Phone: Evaluation note* Diagnosis Increased frequency of urination- Primary Urinary frequency Screening for genitourinary condition Screening for other and unspecified genitourinary condition Dysuria [facility] Mata Friend [facility] Note Date/Time October 20, 2024 9:4 4am [facility] Medical Records Department [address] [place] [address] History & Physical Exam 10/20/24 0942 MR#: [id number] Acct: [id number] Name: DERRELL HOYT Rep #:[id number] : 1965 59 From: Mata Pastor DO PCP: CHRISTIANO TamezC [place] [facility] [place] [facility]16-1 HPI - General General Date of [...] recto-sigmoid colon and in the sigmoid colon. [facility] Medical History Redness of skin Thyroid disease [...] encounter Tumor Atherosclerosis of coronary artery of [place] heart without angina pectoris Kidney stones COPD [...] (8 mg/3 mL) 2 mg subcut .wed DEVIKA BETES 07/13/24 10/06/24 History subcutaneous pen injector [...] Pastor DO> Cosigner Signature (if applicable): CC: MANUFACTURING MAINTENANCE MECHANIC-C Morgan Barajas; Mata Pastor DO~ Signed [facility] Work Phone: History and physical note Author Garry Gross [facility] Note Date/Time December 23, 2024 7:19p m [facility] Medical Records Department [address] [place] [address] H&P Exam - Hospitalist 12/23/24 1846 MR#: [id number] Acct: [id number] Name: DERRELL HOYT Rep #:[id number] : 1965 59 From: Garry loredo DO PCP: UNRULY Tamez Status: REG ER Location: ED HPI - General General Date of Admission: 12/23/24 Date of Service: 12/23/24 Chief Complaint: Shortness of breath HPI Narrative DERRELL HOYT, is a 59 M who presented to [facility] ED on 12/23/2024with worsening shortness of breath. Patient was recently hospitalized here from12/15- 12/18 for LLE wound with concerning for cellulitis. History significant forCOPD/asthma with allergic rhinitis, HFpEF, CAD with stenting, nonsustained V. tach, hypertension, hyperlipidemia, type 2 diabetes mellitus and class III obesity. During this recent hospitalization he was hypoxic requiring 2 L and this was suspected to be multifactorial due to COPD, HFpEF, SHAHANA and obesity hypoventilation syndrome. However, he was able to be discharged without any supplemental oxygen. On arrival today he reports worsening shortness of breath especially with exertion. Chest x-ray was stable from previous and workup was fairly benign. He did not appear volume overloaded on exam. Breath sounds werediminished bilaterally but no wheezing or crackles noted. However, when he ambulated his oxygen saturation did drop to 85%, so hospitalist was contacted for admission. I saw the patient at bedside in the ED. Patient was somewhat unkempt appearing and mildly fatigued appearing but otherwise sitting up comfortably at the edge of the bed, conversing normally, in no acute distress. He denied any shortness of breath at rest currently. Denies any cough or sputumproduction. Denies any wheezing. Denies any volume overload in his legs. No other acute concerns currently. Will be admitted for further management. [facility] Medical History (Reviewed 12/22/24 @ 12:01 by Claudia Urena MANUFACTURING MAINTENANCE MECHANIC, MANUFACTURING MAINTENANCE MECHANIC-C) Redness of skin Thyroid disease Insulin dependent [...] encounter Tumor Atherosclerosis of coronary artery of [place] heart without angina pectoris Kidney stones COPD [...] 10 mg tablet 10 mg PO QHS PRN ALLERGIES 0 01/10/22 12/29/23 History (Singulair) guaifenesin 600 mg tablet, 600 mg PO Q12H PRN CONGESTI ON 02/04/22 11/18/23 History extended release 12 hr (Mucinex) fluticasone propionate 115 2 puff inhalation BID COPD 07/31/22 12/30/23 History mcg-salmeterol 21 mcg/actuation HFA inhaler (Advair HFA) blood sugar diagnostic 11/25/22 Unknown History atorvastatin 80 mg tablet 80 mg PO QHS CHOLESTEROL 12/29/23 History metoprolol tartrate 25 mg tablet 25 mg [...] 11/11/24 Unknown History sennosides 8.6 mg tablet (Greer-danyel) 17.2 mg PO QDAY Unknown History trazodone 50 mg tablet 100 mg PO QHS SLEEP 11/11/24 Unknown History bisacodyl 10 mg rectal suppository 10 mg AR ONCE PRN c onstipation 11/19/24 Unknown History furosemide 40 mg tablet 40 mg PO BID EDEMA 11/19/24 Unknown History venlafaxine 37.5 mg tablet 37.5 mg PO BID 11/19/24 Unk nown History acetaminophen 325 mg capsule 650 mg PO Q6H PRN pain Unknown History ammonium lactate 12 % topical cream 1 applic topical B ID PRN dry skin 11/30/24 Unknown History magnesium hydroxide 400 mg/5 mL 30 ml [...] 120 mg PO BID 5 Unknown History cephalexin 500 mg capsule 500 mg PO TID 2 days #6 caps 12/18/24 Unknown Rx insulin lispro 100 unit/mL See Protocol subcut ACHS #0 mL 12/18/24 Unknown Rx subcutaneous pen (Humalog KwikPen (U-100) Insulin) insulin lispro 100 unit/mL See Protocol subcut ACHS 1 month 12/18/24 Unknown Rx subcutaneous pen (Humalog KwikPen #15 mL (U-100) Insulin) midodrine 10 mg tablet 10 mg PO TIDCM 30 days #90 t abs 12/18/24 Unknown Rx needle (disp) 32 gauge 32 gauge x #100 ea 12/18/24 Unk nown Rx 11/05 polyethylene glycol 3350 17 17 g PO DAILY Constipation 30 days 12/18/24 10/19/24 Rx gram/dose oral powder (Miralax) #0 grams Allergy/AdvReac Type Severity Reaction Status Date / Time No Known Allergies Allergy Verified 12/22/24 10:52 Family History (Reviewed 12/22/24 @ 12:01 by Claudia Urena MANUFACTURING MAINTENANCE MECHANIC, MANUFACTURING MAINTENANCE MECHANIC-C) Father Heart disease Hypertension Mother Brain aneurysm Surgical History History of cardiac catheterization Hx [...] Yes Type: carbonated beverages ROS Constitutional Constitutional: Reports fatigue; Denies chills, fever(s) or weakness Eyes Eyes: Denies change in vision Cardiovascular Cardiovascular: Reports dyspnea on exertion; Denies chest pain or edema Respiratory/Chest Respiratory/Chest: Reports shortness of breath with exertion; Denies cough, productive cough, shortness of breath at rest or wheezing Gastrointestinal Gastrointestinal: Denies abdominal pain Musculoskeletal Musculoskeletal: Denies arthralgias or myalgias Neurologic Neurologic: Denies dizziness, focal weakness or headache(s) Vital Signs Vital Signs Vital Signs: 12/23/24 12:53 12/23/24 12:56 12/23/24 13:18 Temperature 99.0 F 99 F Temperature Source Oral Oral Pulse Rate 85 85 Respiratory Rate 16 16 Respiratory Effort Respiratory Depth Respiratory Pattern Blood Pressure 125/59 H 125/59 H Blood Pressure Mean 81 81 Pulse Ox 82 91 91 Oxygen Delivery Method Room Air Nasal Cannula Nasal Cannula Oxygen Flow Rate (L/min) 2 2 12/23/24 14:00 12/23/24 15:00 12/23/24 15:05 Temperature 99 F 99 F Temperature Source Oral Oral Pulse Rate 83 83 Respiratory Rate 16 17 Respiratory Effort Short of Breath Respiratory Depth Respiratory Pattern Normal Blood Pressure 123/68 H 114/61 Blood Pressure Mean 86 78 Pulse Ox 100 100 Oxygen Delivery Method Nasal Cannula Nasal Cannula Oxygen Flow Rate (L/min) 2 2 12/23/24 15:05 12/23/24 15:10 12/23/24 15:52 Temperature 99.1 F Temperature Source Oral Pulse Rate 81 Respiratory Rate 19 H Respiratory Effort Short of Breath Respiratory Depth Normal Respiratory Pattern Normal Blood Pressure 114/61 Blood Pressure Mean 78 Pulse Ox 97 96 Oxygen Delivery Method Room Air Nasal Cannula Nasal Cannula Oxygen Flow Rate (L/min) 1 1 12/23/24 16:00 12/23/24 17:00 12/23/24 18:00 Temperature 99.0 F 99.1 F Temperature Source Oral Oral Pulse Rate 79 80 78 Respiratory Rate 19 H 19 H Respiratory Effort Respiratory Depth Respiratory Pattern Blood Pressure 114/64 114/64 111/58 L Blood Pressure Mean 80 80 75 Pulse Ox 97 99 Oxygen Delivery Method Nasal Cannula Nasal Cannula Oxygen Flow Rate (L/min) 1 1 Weight Weight: 150.3 kg Body Mass Index (BMI) 43.7 Physical Exam Const alert, oriented x3 and no apparent distress Constitutional Narrative: Upper middle-aged male, appears older than stated age, class III obesity, unkempt appearing, mildly fatigued appearing, otherwise sitting up comfortably at the edge of the bed, conversing normally, in no acute distress. General Appearance: cooperative and comfortable HEENT normocephalic, head/scalp atraumatic, hearing grossly normal bilaterally, nasal mucous membranes and turbinates normal and moist oral mucous membranes Eyes PERRL, EOMs intact bilaterally and conjunctivae normal Neck full ROM Chest inspection of chest normal Resp normal respiratory effort and no use of accessory muscles Resp Narrative: Breathing comfortably on 3 L nasal cannula at rest with oxygen saturations in the high 90s. Diminished breath sounds bilaterally throughout but no wheezing or crackles noted. Cardio regular rate, regular rhythm, no murmurs and peripheral pulses 2+ throughout GI normal to inspection, nondistended, normoactive bowel sounds, soft to palpation,non-tender and non-distended Back/Spine normal ROM Extremity normal to inspection, full ROM and no pedal edema Skin no rashes or lesions noted Neuro moves all extremities and no focal motor deficits Psych mental status grossly normal Results Lab / Micro Data 12/23/24 13:10 12/23/24 13:10 Labs: Laboratory Results - last 24 hr 12/23/24 13:10: WBC 10.5, RBC 4.50 L, Hgb 9.1 L, Hct 33.5 L, MCV 74.4 L, MCH 20.2 L, MCHC 27.2 L, RDW Std Deviation 55.2 H, RDW Coeff of Jovany 21.3 H, Plt Count 164, MPV 10.1, Immature Gran % (Auto) 0.400, Neut % (Auto) 77.2 H, Lymph %(Auto) 13.4 L, [place] % (Auto) 7.7, Eos % (Auto) 0.9, Baso % (Auto) 0.4, Absolute Neuts (auto) 8.1 H, Absolute Lymphs (auto) 1.41, Nucleated RBC % 0, DifferentialComment SCANNED, Platelet Estimate ADEQUATE, Polychromasia 1+, Anisocytosis 2+, Sodium 134, Potassium 5.1, Chloride 94 L, Carbon Dioxide 30.1, Anion Gap 10, BUN17, Creatinine 0.82, Estim Creat Clear Calc 148.25, Est GFR (MDRD) Non-Af 101, BUN/Creatinine Ratio 20.9 H, Glucose 76, Calcium 8.5, Troponin T High Sens 24 H D, NT pro BNP II 318 12/23/24 13:37: Lactic Acid 2.0 12/23/24 15:01: Troponin T Hi Sens 2 Hr 22 12/23/24 15:17: Urine Color Straw, Urine Clarity Sl. Cloudy, Urine pH 6.5, Ur Specific Barnum 1.010, Urine Protein 15 H, Urine Glucose (UA) Normal, Urine Ketones Negative, Urine Occult Blood Negative, Urine Nitrite Negative, Urine Bilirubin Negative, Urine Urobilinogen Normal, Ur Leukocyte Esterase 25 H 12/23/24 17:53: Lactic Acid < 1.0, Troponin T Hi Sens 4Hr 22 Imaging Radiology Impression Chest X-Ray 12/23/24 13:50 IMPRESSION: No interval change Reading Location: [id number] Assessment & Plan Assessment/Plan (1) Hypoxia: PLAN: Plan Patient is a 59-year-old male who presented to [facility] ED on 12/23/2024 with worsening shortness of breath. 1. Acute hypoxia on exertion in setting of COPD/asthma with allergic rhinitis, class III obesity with SHAHANA and suspected obesity hypoventilation syndrome ? Admit under inpatient status to [facility]. Patient with hypoxia on exertion down to 85% in the ED. Notably was hypoxic requiring 2 L on recent admission but was weaned off oxygen by discharge. Suspect patient has hypoxia at baselinedue to factors as noted above. Chest x-ray on admit clear. Breath sounds diminished but no wheezing or crackles noted, low concern for COPD exacerbation. Continue home inhalers. Continue home CPAP at night. Will order home O2 testing for tomorrow morning in case patient is able to be discharged home tomorrow. 2. Recent admission for left lower extremity cellulitis in setting of bilaterallower extremity venous stasis ? Hospitalized from 12/15-12/18 for this, see recent discharge summary for furtherdetails. Minimal leg swelling on exam today. Continue management as below. Chronic medical conditions: ? History of CAD with stenting, chronic HFpEF, history of NSVT, hypertension, hyperlipidemia: Normotensive and in normal sinus rhythm on admit. Continue homestatin, Lasix, lisinopril, Lopressor, and sotalol. Notably has had issues with orthostatic hypotension, continue home midodrine. ? Type 2 diabetes mellitus with recent episodes of hypoglycemia: Recent A1c 5.3%. Had low glucose values down to the 40s during previous hospitalization. Hold long- acting insulin and other home oral medications. Will treat with sliding scale insulin with meals while inpatient, adjust as needed. ? Hypothyroidism: Continue home Synthroid. ? BPH with obstructive disease: Continue home Flomax and finasteride. ? GERD: Continue home PPI. ? Chronic iron deficiency anemia: Hemoglobin 9.1 on admit, at baseline. ? Former tobacco use: Encouraged continued cessation. DVT prophylaxis: Lovenox twice daily CODE STATUS: Full code, verified Expected disposition: Home, TBD Total clinical time spent by myself addressing the patient's medical issues, reviewing all the data, and collaborating with patient's care team: 75 minutes. Charges/Coding Visit Charges Inpatient E&M: 47662 Init Hosp L3 12/23/241918 <Electronically signed by Garry Gross DO> Cosigner Signature (if applicable): CC: MANUFACTURING MAINTENANCE MECHANICLakia Barajas; Dr. Garry Gross DO~ Signed [facility] Work Phone: Hospital Discharge instructionsAdditional Instructions Advised [facility] [place] [facility] Work Phone: Reason for referral (narrative)No reason for referral information availableWAdena [facility] Work Phone: Summary Purpose Family History Relationship Condition Age at Onset Recorded Date/T susannah Unknown Family History?- Unknown June 11:39am Family History?- Unknown June 11:39am Relationship Condition Age at Onset Recorded Date/T susannah Unknown Family History?- Unknown June 11:39am Family History?- Unknown January 08, 2022 1:58pm Relationship Condition Age at Onset Recorded Date/T susannah unrelated friend Polyp of colon Unknown Relationship Condition Age at Onset Recorded Date/T susannah Not Specified Polyp of colon Unknown father Cardiac disease Unknown Hypertension Unknown mother Cerebral aneurysm Unknown Relationship Condition Age at Onset Recorded Date/T susannah father Cardiac disease Unknown Hypertension Unknown mother Cerebral aneurysm Unknown Advance Directives Date Activated Date Inactivated Comments 11/18/2023 10:39 PM 11/22/2023 11:30 PM Question Answer Comments Full Code Order Discussed With: Patient Advance Directive Response Recorded Date/ Time Living Will No September 13, 2021 4:59pm Power of Locator No September 13 4:59pm Advance Directive Response Recorded Date/ Time Living Will No January 08, 2022 1:58pm Power of Locator No January 08 1:58pm Date Activated Date Inactivated Comments 11/18/2023 10:39 PM Advance Directive Response Recorded Date/ Time Do you have a Healthcare Power of Locator? No October 18, 2024 11:26am Advance Directive Response Recorded Date/ Time Do you have a Healthcare Power of Locator? No November 30, 2024 12:52pm Do you have a Healthcare Power of Locator? No October 18, 2024 11:26am Advance Directive Response Recorded Date/ Time Do you have a Healthcare Power of Locator? No November 30, 2024 12:52pm Do you have a Healthcare Power of Locator? No October 18, 2024 11:26am Do you have a Healthcare Power of Locator? No December 15, 2024 6:57pm Advance Directive Response Recorded Date/ Time Do you have a Healthcare Power of Locator? No November 30, 2024 12:52pm Do you have a Healthcare Power of Locator? No October 18, 2024 11:26am Do you have a Healthcare Power of Locator? No December 15, 2024 11:07pm Advance Directive Response Recorded Date/ Time Do you have a Healthcare Power of Locator? No November 30, 2024 12:52pm Do you have a Healthcare Power of Locator? No December 23, 2024 1:18pm Do you have a Healthcare Power of Locator? No October 18, 2024 11:26am Do you have a Healthcare Power of Locator? No December 15, 2024 11:07pm Advance Directive Response Recorded Date/ Time Do you have a Healthcare Power of Locator? No November 30, 2024 12:52pm Do you have a Healthcare Power of Locator? No December 23, 2024 8:18pm Do you have a Healthcare Power of Locator? No October 18, 2024 11:26am Do you have a Healthcare Power of Locator? No December 15, 2024 11:07pm Chief Complaint and Reason for Visit Chief Complaint 3 M FU LONG TERM COVID TESTING WEAKNESS Reason for Visit Atherosclerosis of c oronary artery of [place] heart without angina pectoris History of coronary artery stent placement NSVT (nonsustained ventricular tachycardia) Hypertension Bradycardia Dizziness Chief Complaint 3 M FU LONG TERM COVID TESTING Weakness Weakness WEAKNESS Weakness Reason for Visit Atherosclerosis of c oronary artery of [place] heart without angina pectoris NSVT (nonsustained ventricular tachycardia) History of coronary artery stent placement Hypertension Atherosclerosis of coronary artery of [place] heart without angina pectoris Bradycardia Dizziness NSVT (nonsustained ventricular tachycardia) History of coronary artery stent placement Hypertension Chief Complaint LONG TERM COVID T ESTING 48 HOUR HOLTER MONITOR Weakness Weakness WEAKNESS Weakness 48 HOUR HOLTER MONITOR 2 WK S/P WCH Reason for Visit Bradycardia Dizziness Chief Complaint 2 WK S/P WCH COPD, LEFT LOWER LOBE INFILTRATE SHAHANA Amb Documentation LACK OF CORORDINATION/WEAKNESS. RX HERE Reason for Visit Morbid obesity SOB (shortness of breath) Chief Complaint COPD, LEFT LOWER LOB E INFILTRATE SHAHANA Amb Documentation 1 Y FU SOB Shortness of breath LACK OF CORORDINATION/WEAKNESS. RX HERE Reason for Visit Morbid obesity SOB (shortness of breath) Atherosclerosis of coronary artery of [place] heart without angina pectoris HLD (hyperlipidemia) S/P PTCA (percutaneous transluminal coronary angioplasty) Chief Complaint COPD, LEFT LOWER LOB E INFILTRATE SHAHANA Amb Documentation 1 Y FU SOB Shortness of breath LACK OF CORORDINATION/WEAKNESS. RX HERE SOB Shortness of breath Reason for Visit Morbid obesity SOB (shortness of breath) Atherosclerosis of coronary artery of [place] heart without angina pectoris HLD (hyperlipidemia) S/P [...] chest pressure November 30, 2024 12:3 5pm Chief Complaint Admit Date ROLLATOR/GAIT RX HERE September 22, 2024 1: 20pm Test Result November 11, 2024 2:52p m 6 M FU November 19, 2024 10:35 am chest pressure November 30, 2024 12:3 5pm LLE WOUND, HFpEF EXAC December 15, 2024 10 :28pm Reason for Visit Admit Date Anemia October [...] daniella nary angioplasty) November 19, 2024 10:35am Wound cellulitis December 15, 2024 10:2 8pm Chief Complaint Admit Date ROLLATOR/GAIT RX HERE September 22, 2024 1: 20pm Test Result November 11, 2024 2:52p m 6 M FU November 19, 2024 10:35 am chest pressure November 30, 2024 12:3 5pm LLE WOUND, HFpEF EXAC December 15, 2024 10 :28pm LLE WOUND, HFpEF EXAC December 16, 2024 9: 22am LLE WOUND, HFpEF EXAC December 17, 2024 2: 03pm LLE WOUND, HFpEF EXAC December 18, 2024 9: 43am Chief Complaint Admit Date ROLLATOR/GAIT RX HERE September 22, 2024 1: 20pm Test Result November 11, 2024 2:52p m 6 M FU November 19, 2024 10:35 am chest pressure November 30, 2024 12:3 5pm LLE WOUND, HFpEF EXAC December 15, 2024 10 :28pm LLE WOUND, HFpEF EXAC December 16, 2024 9: 22am LLE WOUND, HFpEF EXAC December 17, 2024 2: 03pm LLE WOUND, HFpEF EXAC December 18, 2024 9: 43am wound December 22, 2024 10:00 am wound December 22, 2024 11:58 am HYPOXIA W/EXERTION H/O COPD AND CHF December 23, 2024 6:46pm Reason for Visit Admit Date Anemia October [...] daniella nary angioplasty) November 19, 2024 10:35am Wound cellulitis December 15, 2024 10:2 8pm Elevated alkaline phosphatase level December 22, 2024 10:00am Iron deficiency anemia December 22, 2024 10 :00am Non-pressure ulcer of left lower extremi ty December 22, 2024 10:00am Wound cellulitis December 22, 2024 10:00 am Hypoxia December 23, 2024 6:46p m Chief Complaint Admit Date ROLLATOR/GAIT RX HERE September 22, 2024 1: 20pm Test Result November 11, 2024 2:52p m 6 M FU November 19, 2024 10:35 am chest pressure November 30, 2024 12:3 5pm LLE WOUND, HFpEF EXAC December 15, 2024 10 :28pm LLE WOUND, HFpEF EXAC December 16, 2024 9: 22am LLE WOUND, HFpEF EXAC December 17, 2024 2: 03pm LLE WOUND, HFpEF EXAC December 18, 2024 9: 43am wound December 22, 2024 10:00 am wound December 22, 2024 11:58 am HYPOXIA W/EXERTION H/O COPD AND CHF December 23, 2024 6:46pm HYPOXIA W/EXERTION H/O COPD AND CHF December 24, 2024 7:38am HYPOXIA W/EXERTION H/O COPD AND CHF December 25, 2024 7:16am HYPOXIA W/EXERTION H/O COPD AND CHF December 26, 2024 2:16pm HYPOXIA W/EXERTION H/O COPD AND CHF December 27, 2024 9:48am HYPOXIA W/EXERTION H/O COPD AND CHF December 28, 2024 8:16am Reason for Visit Admit Date Anemia October [...] daniella nary angioplasty) November 19, 2024 10:35am Wound cellulitis December 15, 2024 10:2 8pm Elevated alkaline phosphatase level December 22, 2024 10:00am Iron deficiency anemia December 22, 2024 10 :00am Non-pressure ulcer of left lower extremi ty December 22, 2024 10:00am Wound cellulitis December 22, 2024 10:00 am (HFpEF) heart failure with preserved eje ction fraction December 23, 2024 6:46pm Acute hypoxic on chronic hypercapnic res piratory failure December 23, 2024 6:46pm Hypoxia December 23, 2024 6:46p m Chief Complaint Admit Date ROLLATOR/GAIT RX HERE September 22, 2024 1: 20pm Test Result November 11, 2024 2:52p m 6 M FU November 19, 2024 10:35 am chest pressure November 30, 2024 12:3 5pm LLE WOUND, HFpEF EXAC December 15, 2024 10 :28pm LLE WOUND, HFpEF EXAC December 16, 2024 9: 22am LLE WOUND, HFpEF EXAC December 17, 2024 2: 03pm LLE WOUND, HFpEF EXAC December 18, 2024 9: 43am wound December 22, 2024 11:58 am HYPOXIA W/EXERTION H/O COPD AND CHF December 23, 2024 6:46pm HYPOXIA W/EXERTION H/O COPD AND CHF December 24, 2024 7:38am HYPOXIA W/EXERTION H/O COPD AND CHF December 25, 2024 7:16am HYPOXIA W/EXERTION H/O COPD AND CHF December 26, 2024 2:16pm HYPOXIA W/EXERTION H/O COPD AND CHF December 27, 2024 9:48am HYPOXIA W/EXERTION H/O COPD AND CHF December 28, 2024 8:16am wound December 29, 2024 9:45a m wound December 29, 2024 1:05p m Reason for Visit Admit Date Anemia October [...] daniella nary angioplasty) November 19, 2024 10:35am Wound cellulitis December 15, 2024 10:2 8pm (HFpEF) heart failure with preserved eje ction fraction December 23, 2024 6:46pm Acute hypoxic on chronic hypercapnic res piratory failure December 23, 2024 6:46pm Hypoxia December 23, 2024 6:46p m Elevated alkaline phosphatase level December 29, 2024 9:45am Iron deficiency anemia December 29, 2024 9: 45am Non-pressure ulcer of left lower extremi ty December 29, 2024 9:45am Wound cellulitis December 29, 2024 9:45a m Additional Source Comments (unrecognized sect ion and content) No Status Records FoundNo Status Records FoundNo Status Records FoundNo Status Records FoundNo Status Records FoundNo Status Records Found INFORMATION SOURCE (unrecogn ized section and content) DATE CREATED AUTHOR 10/04/2018 [facility] DATE CREATED AUTHOR AUTHOR'S ORGANIZ ATION 02/01/2021 [facility] DATE CREATED AUTHOR AUTHOR'S ORGANIZ ATION 01/24/2024 [facility] nt DATE CREATED AUTHOR AUTHOR'S ORGANIZ ATION 11/04/2024 [facility] DATE CREATED AUTHOR AUTHOR'S ORGANIZ ATION 12/20/[address] [facility] DATE CREATED AUTHOR AUTHOR'S ORGANIZ ATION 01/03/2025 [facility] Goals (unrecognized section and content) Goals may [...] or prosecute any alcohol or drug abuse patient.[facility] the event this information is protected by the Federal Confidentiality of Alcohol and Drug Abuse Patient Records regulations: The Federal rules restrict any use of the information to criminally investigate or prosecute any alcohol or drug abuse patient.[facility] the event this information is protected by the Federal Confidentiality of Alcohol and Drug Abuse Patient Records regulations: The Federal rules restrict any use of the information to criminally investigate or prosecute any alcohol or drug abuse patient.[facility] the event this information is protected by the Federal Confidentiality of Alcohol and Drug Abuse Patient Records regulations: The Federal rules restrict any use of the information to criminally investigate or prosecute any alcohol or drug abuse patient.[facility] Reason for Visit (unrecogniz ed section and content) Reason Comments Radiology NM Reason Comments Results Patient Update Reason Comments Urinary Frequency Dysuria New Patient Specialty Diagnoses / Procedures Referred By Terrence walsh Referred To Contact Urology / UROLOGY Diagnoses Dysuria Urination frequency Increased Urination & Dysuria. Left message for patient to call clinic- No referral. [facility] Procedures OFFICE/OUTPATIENT NEW HIGH MDM 60 MINUTES OFFICE/OUTPATIENT NEW MODERATE MDM 45 MINUTES OFFICE/OUTPATIENT NEW LOW MDM 30 MINUTES OFFICE/OUTPATIENT NEW SF MDM 15 MINUTES NEW UROL Nain Paez MD [address] [place] [address] Phone: tel: fax: Shilo Bernal PA-C [phone] [place] [address] Phone: tel: fax: Referral ID Status Reason Start Date Expiration Date Visits Re quested Visits Authorized [id number] Closed 10/26/2024 06/22/2025 1 1 Reason Comments Appointment Care Teams (unrecognized sec tion and content) Team Status: Active Member Role Status Dates Morgan Barajas MANUFACTURING MAINTENANCE MECHANIC, MANUFACTURING MAINTENANCE MECHANIC-C Primary Care Provider Act john Team Status: Inactive Member Role Status Dates Morgan Rosa Karl MANUFACTURING MAINTENANCE MECHANIC, MANUFACTURING MAINTENANCE MECHANIC-C Primary Care Provider Act john Start: September 22, 2024 End: September 22, 2024 Morgan Barajas MANUFACTURING MAINTENANCE MECHANIC, MANUFACTURING MAINTENANCE MECHANIC-C Attending Provider Active Start: September 22, 2024 End: September 22, 2024 Morgan Barajas MANUFACTURING MAINTENANCE MECHANIC, MANUFACTURING MAINTENANCE MECHANIC-C Referring Provider Active Start: September 22, 2024 End: September 22, 2024 Team Status: Inactive Member Role Status Dates Morgan Barajas MANUFACTURING MAINTENANCE MECHANIC, MANUFACTURING MAINTENANCE MECHANIC-C Primary Care Provider Act john Start: October 20, 2024 End: October 20, 2024 Morgan Barajas MANUFACTURING MAINTENANCE MECHANIC, MANUFACTURING MAINTENANCE MECHANIC-C Referring Provider Active Start: October 20, 2024 End: October 20, 2024 Dr. Mata Pastor DO Attending Provider Active Start: October 20, 2024 End: October 20, 2024 Team Status: Active Member Role Status Dates Morgan Barajas MANUFACTURING MAINTENANCE MECHANIC, MANUFACTURING MAINTENANCE MECHANIC-C Primary Care Provider Act john Start: October 20, 2024 Morgan Barajas MANUFACTURING MAINTENANCE MECHANIC, MANUFACTURING MAINTENANCE MECHANIC-C Referring Provider Active Start: October 20, 2024 Dr. Mata Pastor DO Attending Provider Active Start: October 20, 2024 Dr. Mata Pastor DO Other Provider Active St art: October 20, 2024 Team Status: Inactive Member Role Status Dates Morgan Barajas MANUFACTURING MAINTENANCE MECHANIC, MANUFACTURING MAINTENANCE MECHANIC-C Primary Care Provider Act john Start: November 11, 2024 End: November 11, 2024 Morgan Barajas MANUFACTURING MAINTENANCE MECHANIC, MANUFACTURING MAINTENANCE MECHANIC-C Referring Provider Active Start: November 11, 2024 End: November 11, 2024 Karen Webber MANUFACTURING MAINTENANCE MECHANIC-C Attending Provider Active Start: November 11, 2024 End: November 11, 2024 Team Status: Inactive Member Role Status Dates Morgan Barajas MANUFACTURING MAINTENANCE MECHANIC, MANUFACTURING MAINTENANCE MECHANIC-C Primary Care Provider Act john Start: November 19, 2024 End: November 19, 2024 Morgan Barajas MANUFACTURING MAINTENANCE MECHANIC, MANUFACTURING MAINTENANCE MECHANIC-C Referring Provider Active Start: November 19, 2024 End: November 19, 2024 Brissa Hawkins MANUFACTURING MAINTENANCE MECHANIC, MANUFACTURING MAINTENANCE MECHANIC-C Attending Provider Active Start: November 19, 2024 End: November 19, 2024 Team Status: Inactive Member Role Status Dates Morgan Barajas MANUFACTURING MAINTENANCE MECHANIC, MANUFACTURING MAINTENANCE MECHANIC-C Primary Care Provider Act john Start: November 30, 2024 End: November 30, 2024 Dr. Antoine Hahn MD Emergency Provider Active S tart: November 30, 2024 End: November 30, 2024 Team Status: Active Member Role Status Dates Morgan Barajas MANUFACTURING MAINTENANCE MECHANIC, MANUFACTURING MAINTENANCE MECHANIC-C Primary Care Provider Act john Start: September 22, 2024 Morgan Barajas MANUFACTURING MAINTENANCE MECHANIC, MANUFACTURING MAINTENANCE MECHANIC-C Attending Provider Active Start: September 22, 2024 Morgan Barajas MANUFACTURING MAINTENANCE MECHANIC, MANUFACTURING MAINTENANCE MECHANIC-C Referring Provider Active Start: September 22, 2024 Drain Cleaner Relationship Specialty Start Date End Date Nain Paez MD [address] [place], [place] [id number] PCP - General Family Medicine 07/30/19 Drain Cleaner Relationship Specialty Start Date End Date Nain Paez MD [address] [place], [place] [id number] PCP - General Family Medicine 07/30/19 Team Status: Inactive Member Role Status Dates Morgan Barajas MANUFACTURING MAINTENANCE MECHANIC, MANUFACTURING MAINTENANCE MECHANIC-C Primary Care Provider Act john Start: July 13, 2024 End: July 13, 2024 Morgan Barajas MANUFACTURING MAINTENANCE MECHANIC, MANUFACTURING MAINTENANCE MECHANIC-C Referring Provider Active Start: July 13, 2024 End: July 13, 2024 Karen Webber NP-C Attending Provider Active Start: July 13, 2024 End: July 13, 2024 Drain Cleaner Relationship Specialty Start Date End Date Nain Paez MD [address] [place] [address] PCP - General Family Medicine 07/30/19 Drain Cleaner Relationship Specialty Start Date End Date Nain Paez MD [address] [place], [place] [address] PCP - General Family Medicine 07/30/19 Team Status: Inactive Member Role Status Dates Morgan Barajas MANUFACTURING MAINTENANCE MECHANIC, MANUFACTURING MAINTENANCE MECHANIC-C Primary Care Provider Act john Start: November 30, 2024 End: November 30, 2024 Dr. Antoine Hahn MD Attending Provider Active S tart: November 30, 2024 End: November 30, 2024 Dr. Antoine Hahn MD Emergency Provider Active S tart: November 30, 2024 End: November 30, 2024 Team Status: Active Member Role Status Dates Morgan Barajas MANUFACTURING MAINTENANCE MECHANIC, MANUFACTURING MAINTENANCE MECHANIC-C Primary Care Provider Act john Start: December 15, 2024 Dr. Derrick Camejo , Emergency Provider Activ e Start: December 15, 2024 Dr. Arlette Grigsby MD Admit Provider Active St art: December 15, 2024 Dr. Arlette Grigsby MD Attending Provider Active Start: December 15, 2024 Team Status: Active Member Role/Relationship Status Dates Morgan Barajas MANUFACTURING MAINTENANCE MECHANIC, MANUFACTURING MAINTENANCE MECHANIC-C Primary Care Provider Act john Team Status: Inactive Member Role/Relationship Status Dates Morgan Barajas MANUFACTURING MAINTENANCE MECHANIC, MANUFACTURING MAINTENANCE MECHANIC-C Primary Care Provider Act john Start: September 22, 2024 End: September 22, 2024 Morgan Barajas MANUFACTURING MAINTENANCE MECHANIC, MANUFACTURING MAINTENANCE MECHANIC-C Attending Provider Active Start: September 22, 2024 End: September 22, 2024 Morgan Barajas MANUFACTURING MAINTENANCE MECHANIC, MANUFACTURING MAINTENANCE MECHANIC-C Referring Provider Active Start: September 22, 2024 End: September 22, 2024 Team Status: Inactive Member Role/Relationship Status Dates Morgan Barajas MANUFACTURING MAINTENANCE MECHANIC, MANUFACTURING MAINTENANCE MECHANIC-C Primary Care Provider Act john Start: October 20, 2024 End: October 20, 2024 Morgan Barajas MANUFACTURING MAINTENANCE MECHANIC, MANUFACTURING MAINTENANCE MECHANIC-C Referring Provider Active Start: October 20, 2024 End: October 20, 2024 Dr. Mata Pastor DO Attending Provider Active Start: October 20, 2024 End: October 20, 2024 Team Status: Active Member Role/Relationship Status Dates Morgan Barajas MANUFACTURING MAINTENANCE MECHANIC, MANUFACTURING MAINTENANCE MECHANIC-C Primary Care Provider Act john Start: October 20, 2024 Morgan Barajas MANUFACTURING MAINTENANCE MECHANIC, MANUFACTURING MAINTENANCE MECHANIC-C Referring Provider Active Start: October 20, 2024 Dr. Mata Pastor DO Attending Provider Active Start: October 20, 2024 Dr. Mata Pastor DO Other Provider Active St art: October 20, 2024 Team Status: Inactive Member Role/Relationship Status Dates Morgan Barajas MANUFACTURING MAINTENANCE MECHANIC, MANUFACTURING MAINTENANCE MECHANIC-C Primary Care Provider Act john Start: November 11, 2024 End: November 11, 2024 Morgan Barajas MANUFACTURING MAINTENANCE MECHANIC, MANUFACTURING MAINTENANCE MECHANIC-C Referring Provider Active Start: November 11, 2024 End: November 11, 2024 Karen Webber NP-C Attending Provider Active Start: November 11, 2024 End: November 11, 2024 Team Status: Inactive Member Role/Relationship Status Dates Morgan Lee Karl MANUFACTURING MAINTENANCE MECHANIC, MANUFACTURING MAINTENANCE MECHANIC-C Primary Care Provider Act john Start: November 19, 2024 End: November 19, 2024 Morgan Lee Karl MANUFACTURING MAINTENANCE MECHANIC, MANUFACTURING MAINTENANCE MECHANIC-C Referring Provider Active Start: November 19, 2024 End: November 19, 2024 Brissa Hawkins MANUFACTURING MAINTENANCE MECHANIC, MANUFACTURING MAINTENANCE MECHANIC-C Attending Provider Active Start: November 19, 2024 End: November 19, 2024 Team Status: Inactive Member Role/Relationship Status Dates Morgan Lee Karl MANUFACTURING MAINTENANCE MECHANIC, MANUFACTURING MAINTENANCE MECHANIC-C Primary Care Provider Act john Start: November 30, 2024 End: November 30, 2024 Dr. Antoine Hahn MD Attending Provider Active S tart: November 30, 2024 End: November 30, 2024 Dr. Antoine Hahn MD Emergency Provider Active S tart: November 30, 2024 End: November 30, 2024 Team Status: Inactive Member Role/Relationship Status Dates Morgan Lee Karl MANUFACTURING MAINTENANCE MECHANIC, MANUFACTURING MAINTENANCE MECHANIC-C Primary Care Provider Act john Start: December 15, 2024 End: December 18, 2024 Dr. Derrick Camejo DO Emergency Provider Activ e Start: December 15, 2024 End: December 18, 2024 Dr. Arlette Grigsby MD Admit Provider Active St art: December 15, 2024 End: December 18, 2024 Dr. Arlette Grigsby MD Other Provider Active St art: December 15, 2024 End: December 18, 2024 Dr. Marcellus Gunn MD Attending Provider Active Start: December 15, 2024 End: December 18, 2024 Team Status: Active Member Role/Relationship Status Dates Morgan Lee Karl MANUFACTURING MAINTENANCE MECHANIC, MANUFACTURING MAINTENANCE MECHANIC-C Primary Care Provider Act john Start: December 16, 2024 Dr. Derrick Camejo DO Emergency Provider Activ e Start: December 16, 2024 Dr. Arlette Grigsby MD Admit Provider Active St art: December 16, 2024 Dr. Arlette Grigsby MD Other Provider Active St art: December 16, 2024 Dr. Marcellus uGnn MD Attending Provider Active Start: December 16, 2024 Dr. Marcellus Gunn MD Other Provider Active Sta rt: December 16, 2024 Team Status: Active Member Role/Relationship Status Dates Morgan Lee Karl MANUFACTURING MAINTENANCE MECHANIC, MANUFACTURING MAINTENANCE MECHANIC-C Primary Care Provider Act john Start: December 16, 2024 Dr. Jean Brown MD Attending Provider Active Start: December 16, 2024 Team Status: Active Member Role/Relationship Status Dates Morgan Barajas MANUFACTURING MAINTENANCE MECHANIC, MANUFACTURING MAINTENANCE MECHANIC-C Primary Care Provider Act john Start: December 17, 2024 Dr. Derrick Camejo DO Emergency Provider Activ e Start: December 17, 2024 Dr. Arlette Grigsby MD Admit Provider Active St art: December 17, 2024 Dr. Arlette Grigsby MD Other Provider Active St art: December 17, 2024 Dr. Marcellus Gunn MD Attending Provider Active Start: December 17, 2024 Dr. Marcellus Gunn MD Other Provider Active Sta rt: December 17, 2024 Team Status: Active Member Role/Relationship Status Dates Morgan Barajas MANUFACTURING MAINTENANCE MECHANIC, MANUFACTURING MAINTENANCE MECHANIC-C Primary Care Provider Act john Start: December 18, 2024 Dr. Derrick Camejo DO Emergency Provider Activ e Start: December 18, 2024 Dr. Arlette Grigsby MD Admit Provider Active St art: December 18, 2024 Dr. Arlette Grigsby MD Other Provider Active St art: December 18, 2024 Dr. Marcellus Gunn MD Attending Provider Active Start: December 18, 2024 Dr. Marcellus Gunn MD Other Provider Active Sta rt: December 18, 2024 Team Status: Active Member Role/Relationship Status Dates Morgan Barajas MANUFACTURING MAINTENANCE MECHANIC, MANUFACTURING MAINTENANCE MECHANIC-C Primary Care Provider Act john Start: December 22, 2024 Morgan Barajas MANUFACTURING MAINTENANCE MECHANIC, MANUFACTURING MAINTENANCE MECHANIC-C Referring Provider Active Start: December 22, 2024 Claudia Urena MANUFACTURING MAINTENANCE MECHANIC, MANUFACTURING MAINTENANCE MECHANIC-C Attending Provider Active Start: December 22, 2024 Team Status: Active Member Role/Relationship Status Dates Morgan Barajas MANUFACTURING MAINTENANCE MECHANIC, MANUFACTURING MAINTENANCE MECHANIC-C Primary Care Provider Act john Start: December 22, 2024 Morgan Barajas MANUFACTURING MAINTENANCE MECHANIC, MANUFACTURING MAINTENANCE MECHANIC-C Referring Provider Active Start: December 22, 2024 Claudia Urena MANUFACTURING MAINTENANCE MECHANIC, MANUFACTURING MAINTENANCE MECHANIC-C Attending Provider Active Start: December 22, 2024 Claudia Urena MANUFACTURING MAINTENANCE MECHANIC, MANUFACTURING MAINTENANCE MECHANIC-C Other Provider Active S tart: December 22, 2024 Team Status: Active Member Role/Relationship Status Dates Morgan Barajas MANUFACTURING MAINTENANCE MECHANIC, MANUFACTURING MAINTENANCE MECHANIC-C Primary Care Provider Act john Start: December 23, 2024 Dr. Alex Mccray DO Referring Provider Active Start: December 23, 2024 Dr. Alex Mccray DO Emergency Provider Active Start: December 23, 2024 Dr. Garry Gross DO Admit Provider Active Start: December 23, 2024 Dr. Garry Gross DO Attending Provider Active Start: December 23, 2024 Team Status: Inactive Member Role/Relationship Status Dates Morgan Lee Karl MANUFACTURING MAINTENANCE MECHANIC, MANUFACTURING MAINTENANCE MECHANIC-C Primary Care Provider Act john Start: December 23, 2024 End: December 28, 2024 Dr. Alex Mccray DO Referring Provider Active Start: December 23, 2024 End: December 28, 2024 Dr. Alex Mccray DO Emergency Provider Active Start: December 23, 2024 End: December 28, 2024 Dr. Garry Gross DO Admit Provider Active Start: December 23, 2024 End: December 28, 2024 Dr. Garry Gross DO Other Provider Active Start: December 23, 2024 End: December 28, 2024 Dr. Salinas Waddell MD Other Provider Active Start: December 23, 2024 End: December 28, 2024 Dr. Bert Byrd MD Other Provider Active Start: December 23, 2024 End: December 28, 2024 Dr. Enrico Bustillo MD Other Provider Active Star t: December 23, 2024 End: December 28, 2024 Dr. Jeovany Ovalles DO Other Provider Active Start : December 23, 2024 End: December 28, 2024 Dr. Ernesto Wilder MD Other Provider Active Sta rt: December 23, 2024 End: December 28, 2024 Dr. Zion Blount MD Other Provider Active St art: December 23, 2024 End: December 28, 2024 Dr. Jose Eduardo Jim MD Other Provider Active S tart: December 23, 2024 End: December 28, 2024 Dr. Linda Sullivan MD Other Provider Active Start: December 23, 2024 End: December 28, 2024 Dr. Foster Geronimo MD Other Provider Active Start : December 23, 2024 End: December 28, 2024 Dr. Richard Peterson MD Other Provider Active Start: December 23, 2024 End: December 28, 2024 Dr. Benjamin Malhotra MD Other Provider Active Start : December 23, 2024 End: December 28, 2024 Dr. Nicloe Haywood MD Other Provider Active Star t: December 23, 2024 End: December 28, 2024 Dr. Raquel Foster MD Other Provider Active Sta rt: December 23, 2024 End: December 28, 2024 Dr. Hawa Chang MD Other Provider Active Sta rt: December 23, 2024 End: December 28, 2024 Dr. Sanju Woods MD Other Provider Active Star t: December 23, 2024 End: December 28, 2024 Dr. David Dallas MD Other Provider Active St art: December 23, 2024 End: December 28, 2024 Dr. Ronak Goff MD Other Provider Active Star t: December 23, 2024 End: December 28, 2024 Dr. Henry Cronin DO Other Provider Active St art: December 23, 2024 End: December 28, 2024 Dr. Naga Penn MD Other Provider Active Start: December 23, 2024 End: December 28, 2024 Dr. Anita Rivera MD Other Provider Active St art: December 23, 2024 End: December 28, 2024 Dr. Geovany Sorenson DO Other Provider Active Start: December 23, 2024 End: December 28, 2024 Dr. Dajuan Thompson MD Other Provider Active Star t: December 23, 2024 End: December 28, 2024 Dr. Dedrick Vides MD Other Provider Active Sta rt: December 23, 2024 End: December 28, 2024 Dr. Alex Mayen DO Attending Provider Active Start: December 23, 2024 End: December 28, 2024 Dr. Marcellus Gunn MD Other Provider Active Sta rt: December 23, 2024 End: December 28, 2024 Team Status: Active Member Role/Relationship Status Dates Morgan Barajas MANUFACTURING MAINTENANCE MECHANIC, MANUFACTURING MAINTENANCE MECHANIC-C Primary Care Provider Act john Start: December 24, 2024 Dr. Alex Mccray DO Referring Provider Active Start: December 24, 2024 Dr. Alex Mccray DO Emergency Provider Active Start: December 24, 2024 Dr. Garry Gross DO Admit Provider Active Start: December 24, 2024 Dr. Garry Gross DO Other Provider Active Start: December 24, 2024 Dr. Marcellus Gunn MD Attending Provider Active Start: December 24, 2024 Dr. Marcellus Gunn MD Other Provider Active Sta rt: December 24, 2024 Dr. Raquel Foster MD Other Provider Active Sta rt: December 24, 2024 Dr. Dajuan Thompson MD Other Provider Active Star t: December 24, 2024 Dr. Enrico Bustillo MD Other Provider Active Star t: December 24, 2024 Dr. Jose Eduardo Jim MD Other Provider Active S tart: December 24, 2024 Dr. Jeovany Ovalles , Other Provider Active Start : December 24, 2024 Dr. Foster Geronimo MD Other Provider Active Start : December 24, 2024 Dr. Henry Cronin , Other Provider Active St art: December 24, 2024 Dr. Ronak Goff MD Other Provider Active Star t: December 24, 2024 Dr. Geovany Sorenson , Other Provider Active Start: December 24, 2024 Dr. Nicole Haywood MD Other Provider Active Star t: December 24, 2024 Dr. Salinas Waddell MD Other Provider Active Start: December 24, 2024 Dr. Sanju Woods MD Other Provider Active Star t: December 24, 2024 Dr. Naga Penn MD Other Provider Active Start: December 24, 2024 Dr. Anita Rivera MD Other Provider Active St art: December 24, 2024 Dr. Linda Sullivan MD Other Provider Active Start: December 24, 2024 Dr. Dedrick Vides MD Other Provider Active Sta rt: December 24, 2024 Dr. David Dallas MD Other Provider Active St art: December 24, 2024 Dr. Hawa Chang MD Other Provider Active Sta rt: December 24, 2024 Dr. Zion Blount MD Other Provider Active St art: December 24, 2024 Dr. Bert Byrd MD Other Provider Active Start: December 24, 2024 Dr. Ernesto Wilder MD Other Provider Active Sta rt: December 24, 2024 Dr. Richard Peterson MD Other Provider Active Start: December 24, 2024 Dr. Benjamin Malhotra MD Other Provider Active Start : December 24, 2024 Team Status: Active Member Role/Relationship Status Dates Morgan Barajas MANUFACTURING MAINTENANCE MECHANIC, MANUFACTURING MAINTENANCE MECHANIC-C Primary Care Provider Act john Start: December 25, 2024 Dr. Alex Mccray DO Referring Provider Active Start: December 25, 2024 Dr. Alex Mccray DO Emergency Provider Active Start: December 25, 2024 Dr. Garry Gross DO Admit Provider Active Start: December 25, 2024 Dr. Garry Gross DO Other Provider Active Start: December 25, 2024 Dr. Marcellus Gunn MD Attending Provider Active Start: December 25, 2024 Dr. Marcellus Gunn MD Other Provider Active Sta rt: December 25, 2024 Dr. Salinas Waddell MD Other Provider Active Start: December 25, 2024 Dr. Bert Byrd MD Other Provider Active Start: December 25, 2024 Dr. nErico Bustillo MD Other Provider Active Star t: December 25, 2024 Dr. Jeovany Ovalles DO Other Provider Active Start : December 25, 2024 Dr. Ernesto Wilder MD Other Provider Active Sta rt: December 25, 2024 Dr. Zion Blount MD Other Provider Active St art: December 25, 2024 Dr. Jose Eduardo Jim MD Other Provider Active S tart: December 25, 2024 Dr. Linda Sullivan MD Other Provider Active Start: December 25, 2024 Dr. Foster Geronimo MD Other Provider Active Start : December 25, 2024 Dr. Richard Peterson MD Other Provider Active Start: December 25, 2024 Dr. Benjamin Malhotra MD Other Provider Active Start : December 25, 2024 Dr. Nicole Haywood MD Other Provider Active Star t: December 25, 2024 Dr. Raquel Foster MD Other Provider Active Sta rt: December 25, 2024 Dr. Hawa Chang MD Other Provider Active Sta rt: December 25, 2024 Dr. Sanju Woods MD Other Provider Active Star t: December 25, 2024 Dr. David Dallas MD Other Provider Active St art: December 25, 2024 Dr. Ronak Goff MD Other Provider Active Star t: December 25, 2024 Dr. Henry Cronin DO Other Provider Active St art: December 25, 2024 Dr. Naga Penn MD Other Provider Active Start: December 25, 2024 Dr. Anita Rivera MD Other Provider Active St art: December 25, 2024 Dr. Geovany Sorenson DO Other Provider Active Start: December 25, 2024 Dr. Dajuan Thompson MD Other Provider Active Star t: December 25, 2024 Dr. Dedrick Vides MD Other Provider Active Sta rt: December 25, 2024 Team Status: Active Member Role/Relationship Status Dates Morgan Lee Karl MANUFACTURING MAINTENANCE MECHANIC, MANUFACTURING MAINTENANCE MECHANIC-C Primary Care Provider Act john Start: December 26, 2024 Dr. Alex Mccray , Referring Provider Active Start: December 26, 2024 Dr. Alex Mccray DO Emergency Provider Active Start: December 26, 2024 Dr. Garry Gross , Admit Provider Active Start: December 26, 2024 Dr. Garry Gross DO Other Provider Active Start: December 26, 2024 Dr. Marcellus Gunn MD Attending Provider Active Start: December 26, 2024 Dr. Marcellus Gunn MD Other Provider Active Sta rt: December 26, 2024 Dr. Salinas Waddell MD Other Provider Active Start: December 26, 2024 Dr. Bert Byrd MD Other Provider Active Start: December 26, 2024 Dr. Enrico Bustillo MD Other Provider Active Star t: December 26, 2024 Dr. Jeovany Ovalles DO Other Provider Active Start : December 26, 2024 Dr. Ernesto Wilder MD Other Provider Active Sta rt: December 26, 2024 Dr. Zion Blount MD Other Provider Active St art: December 26, 2024 Dr. Jose Eduardo Jim MD Other Provider Active S tart: December 26, 2024 Dr. Linda Sullivan MD Other Provider Active Start: December 26, 2024 Dr. Foster Geronimo MD Other Provider Active Start : December 26, 2024 Dr. Richard Peterson MD Other Provider Active Start: December 26, 2024 Dr. Benjamin Malhotra MD Other Provider Active Start : December 26, 2024 Dr. Nicole Haywood MD Other Provider Active Star t: December 26, 2024 Dr. Raquel Foster MD Other Provider Active Sta rt: December 26, 2024 Dr. Hawa Chang MD Other Provider Active Sta rt: December 26, 2024 Dr. Sanju Woods MD Other Provider Active Star t: December 26, 2024 Dr. David Dallas MD Other Provider Active St art: December 26, 2024 Dr. Ronak Goff MD Other Provider Active Star t: December 26, 2024 Dr. Henry Cronin DO Other Provider Active St art: December 26, 2024 Dr. Naga Penn MD Other Provider Active Start: December 26, 2024 Dr. Anita Rivera MD Other Provider Active St art: December 26, 2024 Dr. Geovany Sorenson , Other Provider Active Start: December 26, 2024 Dr. Dajuan Thompson MD Other Provider Active Star t: December 26, 2024 Dr. Dedrick Vides MD Other Provider Active Sta rt: December 26, 2024 Team Status: Active Member Role/Relationship Status Dates Morgan Barajas MANUFACTURING MAINTENANCE MECHANIC, MANUFACTURING MAINTENANCE MECHANIC-C Primary Care Provider Act john Start: December 27, 2024 Dr. Alex Mccray , DO Referring Provider Active Start: December 27, 2024 Dr. Alex Mccray DO Emergency Provider Active Start: December 27, 2024 Dr. Garry Gross DO Admit Provider Active Start: December 27, 2024 Dr. Garry Gross , DO Other Provider Active Start: December 27, 2024 Dr. Salinas Waddell MD Other Provider Active Start: December 27, 2024 Dr. Bert Byrd MD Other Provider Active Start: December 27, 2024 Dr. Enrico Bustillo MD Other Provider Active Star t: December 27, 2024 Dr. Jeovany Ovalles , Other Provider Active Start : December 27, 2024 Dr. Ernesto Wilder MD Other Provider Active Sta rt: December 27, 2024 Dr. Zion Blount MD Other Provider Active St art: December 27, 2024 Dr. Jose Eduardo Jim MD Other Provider Active S tart: December 27, 2024 Dr. Linda Sullivan MD Other Provider Active Start: December 27, 2024 Dr. Foster Geronimo MD Other Provider Active Start : December 27, 2024 Dr. Richard Peterson MD Other Provider Active Start: December 27, 2024 Dr. Benjamin Malhotra MD Other Provider Active Start : December 27, 2024 Dr. Nicole Haywood MD Other Provider Active Star t: December 27, 2024 Dr. Raquel Foster MD Other Provider Active Sta rt: December 27, 2024 Dr. Hawa Chang MD Other Provider Active Sta rt: December 27, 2024 Dr. Sanju Woods MD Other Provider Active Star t: December 27, 2024 Dr. David Dallas MD Other Provider Active St art: December 27, 2024 Dr. Ronak Goff MD Other Provider Active Star t: December 27, 2024 Dr. Henry Cronin , Other Provider Active St art: December 27, 2024 Dr. Naga Penn MD Other Provider Active Start: December 27, 2024 Dr. Anita Rivera MD Other Provider Active St art: December 27, 2024 Dr. Geovany Sorenson , Other Provider Active Start: December 27, 2024 Dr. Dajuan Thompson MD Other Provider Active Star t: December 27, 2024 Dr. Dedrick Vides MD Other Provider Active Sta rt: December 27, 2024 Dr. Alex Mayen DO Attending Provider Active Start: December 27, 2024 Dr. Alex Mayen DO Other Provider Active Star t: December 27, 2024 Dr. Marcellus Gunn MD Other Provider Active Sta rt: December 27, 2024 Team Status: Active Member Role/Relationship Status Dates Morgan Barajas MANUFACTURING MAINTENANCE MECHANIC, MANUFACTURING MAINTENANCE MECHANIC-C Primary Care Provider Act john Start: December 28, 2024 Dr. Alex Mccray DO Referring Provider Active Start: December 28, 2024 Dr. Alex Mccray DO Emergency Provider Active Start: December 28, 2024 Dr. Garry Gross DO Admit Provider Active Start: December 28, 2024 Dr. Garry Gross DO Other Provider Active Start: December 28, 2024 Dr. Salinas Waddell MD Other Provider Active Start: December 28, 2024 Dr. Bert Byrd MD Other Provider Active Start: December 28, 2024 Dr. Enrico Bustillo MD Other Provider Active Star t: December 28, 2024 Dr. Jeovany Ovalles DO Other Provider Active Start : December 28, 2024 Dr. Ernesto Wilder MD Other Provider Active Sta rt: December 28, 2024 Dr. Zion Blount MD Other Provider Active St art: December 28, 2024 Dr. Jose Eduardo Jim MD Other Provider Active S tart: December 28, 2024 Dr. Linda Sullivan MD Other Provider Active Start: December 28, 2024 Dr. Foster Geronimo MD Other Provider Active Start : December 28, 2024 Dr. Richard Peterson MD Other Provider Active Start: December 28, 2024 Dr. Benjamin Malhotra MD Other Provider Active Start : December 28, 2024 Dr. Nicole Haywood MD Other Provider Active Star t: December 28, 2024 Dr. Raquel Foster MD Other Provider Active Sta rt: December 28, 2024 Dr. Hawa Chang MD Other Provider Active Sta rt: December 28, 2024 Dr. Sanju Woods MD Other Provider Active Star t: December 28, 2024 Dr. David Dallas MD Other Provider Active St art: December 28, 2024 Dr. Ronak Goff MD Other Provider Active Star t: December 28, 2024 Dr. Henry Cronin DO Other Provider Active St art: December 28, 2024 Dr. Naga Penn MD Other Provider Active Start: December 28, 2024 Dr. Anita Rivera MD Other Provider Active St art: December 28, 2024 Dr. Geovany Sorenson DO Other Provider Active Start: December 28, 2024 Dr. Dajuan Thompson MD Other Provider Active Star t: December 28, 2024 Dr. Dedrick Vides MD Other Provider Active Sta rt: December 28, 2024 Dr. Alex Mayen DO Attending Provider Active Start: December 28, 2024 Dr. Alex Mayen DO Other Provider Active Star t: December 28, 2024 Dr. Marcellus Gunn MD Other Provider Active Sta rt: December 28, 2024 Team Status: Active Member Role/Relationship Status Dates Morgan Barajas MANUFACTURING MAINTENANCE MECHANIC, MANUFACTURING MAINTENANCE MECHANIC-C Primary Care Provider Act john Start: December 22, 2024 Morgan Barajas MANUFACTURING MAINTENANCE MECHANIC, MANUFACTURING MAINTENANCE MECHANIC-C Referring Provider Active Start: December 22, 2024 Claudia Urena MANUFACTURING MAINTENANCE MECHANIC, MANUFACTURING MAINTENANCE MECHANIC-C Attending Provider Active Start: December 22, 2024 Claudia Urena MANUFACTURING MAINTENANCE MECHANIC, MANUFACTURING MAINTENANCE MECHANIC-C Other Provider Active S tart: December 22, 2024 Team Status: Inactive Member Role/Relationship Status Dates Morgan Barajas MANUFACTURING MAINTENANCE MECHANIC, MANUFACTURING MAINTENANCE MECHANIC-C Primary Care Provider Act john Start: December 23, 2024 End: December 28, 2024 Dr. Alex Mccray DO Referring Provider Active Start: December 23, 2024 End: December 28, 2024 Dr. Alex Mccray DO Emergency Provider Active Start: December 23, 2024 End: December 28, 2024 Dr. Garry Gross DO Admit Provider Active Start: December 23, 2024 End: December 28, 2024 Dr. Garry Gross DO Other Provider Active Start: December 23, 2024 End: December 28, 2024 Dr. Salinas Waddell MD Other Provider Active Start: December 23, 2024 End: December 28, 2024 Dr. Bert Byrd MD Other Provider Active Start: December 23, 2024 End: December 28, 2024 Dr. Enrico Bustillo MD Other Provider Active Star t: December 23, 2024 End: December 28, 2024 Dr. Jeovany Ovalles DO Other Provider Active Start : December 23, 2024 End: December 28, 2024 Dr. Ernesto Wilder MD Other Provider Active Sta rt: December 23, 2024 End: December 28, 2024 Dr. Zion Blount MD Other Provider Active St art: December 23, 2024 End: December 28, 2024 Dr. Jose Eduardo Jim MD Other Provider Active S tart: December 23, 2024 End: December 28, 2024 Dr. Linda Sullivan MD Other Provider Active Start: December 23, 2024 End: December 28, 2024 Dr. Foster Geronimo MD Other Provider Active Start : December 23, 2024 End: December 28, 2024 Dr. Richard Peterson MD Other Provider Active Start: December 23, 2024 End: December 28, 2024 Dr. Benjamin Malhotra MD Other Provider Active Start : December 23, 2024 End: December 28, 2024 Dr. Nicole Haywood MD Other Provider Active Star t: December 23, 2024 End: December 28, 2024 Dr. Raquel Foster MD Other Provider Active Sta rt: December 23, 2024 End: December 28, 2024 Dr. Hawa Chang MD Other Provider Active Sta rt: December 23, 2024 End: December 28, 2024 Dr. Sanju Woods MD Other Provider Active Star t: December 23, 2024 End: December 28, 2024 Dr. Dvaid Dallas MD Other Provider Active St art: December 23, 2024 End: December 28, 2024 Dr. Ronak Goff MD Other Provider Active Star t: December 23, 2024 End: December 28, 2024 Dr. Henry Dhesi , DO Other Provider Active St art: December 23, 2024 End: December 28, 2024 Dr. Naga Penn MD Other Provider Active Start: December 23, 2024 End: December 28, 2024 Dr. Anita Rivera MD Other Provider Active St art: December 23, 2024 End: December 28, 2024 Dr. Geovany Sorenson DO Other Provider Active Start: December 23, 2024 End: December 28, 2024 Dr. Dajuan Thompson MD Other Provider Active Star t: December 23, 2024 End: December 28, 2024 Dr. Dedrick Vides MD Other Provider Active Sta rt: December 23, 2024 End: December 28, 2024 Dr. Alex Mayen , Attending Provider Active Start: December 23, 2024 End: December 28, 2024 Dr. Marcellus Gunn MD Other Provider Active Sta rt: December 23, 2024 End: December 28, 2024 Team Status: Active Member Role/Relationship Status Dates Morgan Barajas MANUFACTURING MAINTENANCE MECHANIC, MANUFACTURING MAINTENANCE MECHANIC-C Primary Care Provider Act john Start: December 24, 2024 Dr. Alex Mccray DO Referring Provider Active Start: December 24, 2024 Dr. Alex Mccray DO Emergency Provider Active Start: December 24, 2024 Dr. Garry Gross , DO Admit Provider Active Start: December 24, 2024 Dr. Garry Gross , Other Provider Active Start: December 24, 2024 Dr. Marcellus Gunn MD Attending Provider Active Start: December 24, 2024 Dr. Marcellus Gunn MD Other Provider Active Sta rt: December 24, 2024 Dr. Raquel Foster MD Other Provider Active Sta rt: December 24, 2024 Dr. Dajuan Thompson MD Other Provider Active Star t: December 24, 2024 Dr. Enrico Bustillo MD Other Provider Active Star t: December 24, 2024 Dr. Jose Eduardo Jim MD Other Provider Active S tart: December 24, 2024 Dr. Jeovany Ovalles , Other Provider Active Start : December 24, 2024 Dr. Foster Geronimo MD Other Provider Active Start : December 24, 2024 Dr. Henry Cronin , DO Other Provider Active St art: December 24, 2024 Dr. Ronak Goff MD Other Provider Active Star t: December 24, 2024 Dr. Geovany Sorenson , DO Other Provider Active Start: December 24, 2024 Dr. Nicole Haywood MD Other Provider Active Star t: December 24, 2024 Dr. Salinas Waddell MD Other Provider Active Start: December 24, 2024 Dr. Sanju Woods MD Other Provider Active Star t: December 24, 2024 Dr. Naga Penn MD Other Provider Active Start: December 24, 2024 Dr. Anita Rivera MD Other Provider Active St art: December 24, 2024 Dr. Linda Sullivan MD Other Provider Active Start: December 24, 2024 Dr. Dedrick Vides MD Other Provider Active Sta rt: December 24, 2024 Dr. David Dallas MD Other Provider Active St art: December 24, 2024 Dr. Hawa Chang MD Other Provider Active Sta rt: December 24, 2024 Dr. Zion Blount MD Other Provider Active St art: December 24, 2024 Dr. Bert Byrd MD Other Provider Active Start: December 24, 2024 Dr. Ernesto Wilder MD Other Provider Active Sta rt: December 24, 2024 Dr. Richard Peterson MD Other Provider Active Start: December 24, 2024 Dr. Benjamin Malhotra MD Other Provider Active Start : December 24, 2024 Team Status: Active Member Role/Relationship Status Dates Morgan Barajas MANUFACTURING MAINTENANCE MECHANIC, MANUFACTURING MAINTENANCE MECHANIC-C Primary Care Provider Act john Start: December 25, 2024 Dr. Alex Mccray DO Referring Provider Active Start: December 25, 2024 Dr. Alex Mccray DO Emergency Provider Active Start: December 25, 2024 Dr. Garry Gross DO Admit Provider Active Start: December 25, 2024 Dr. Garry Gross DO Other Provider Active Start: December 25, 2024 Dr. Marcellus Gunn MD Attending Provider Active Start: December 25, 2024 Dr. Marcellus Gunn MD Other Provider Active Sta rt: December 25, 2024 Dr. Salinas Waddell MD Other Provider Active Start: December 25, 2024 Dr. Bert Byrd MD Other Provider Active Start: December 25, 2024 Dr. Enrico Bustillo MD Other Provider Active Star t: December 25, 2024 Dr. Jeovany Ovalles DO Other Provider Active Start : December 25, 2024 Dr. Ernesto Wilder MD Other Provider Active Sta rt: December 25, 2024 Dr. Zion Blount MD Other Provider Active St art: December 25, 2024 Dr. Jose Eduardo Jim MD Other Provider Active S tart: December 25, 2024 Dr. Linda Sullivan MD Other Provider Active Start: December 25, 2024 Dr. Foster Geronimo MD Other Provider Active Start : December 25, 2024 Dr. Richard Peterson MD Other Provider Active Start: December 25, 2024 Dr. Benjamin Malhotra MD Other Provider Active Start : December 25, 2024 Dr. Nicole Haywood MD Other Provider Active Star t: December 25, 2024 Dr. Raquel Foster MD Other Provider Active Sta rt: December 25, 2024 Dr. Hawa Chang MD Other Provider Active Sta rt: December 25, 2024 Dr. Sanju Woods MD Other Provider Active Star t: December 25, 2024 Dr. David Dallas MD Other Provider Active St art: December 25, 2024 Dr. Ronak Goff MD Other Provider Active Star t: December 25, 2024 Dr. Henry Cronin DO Other Provider Active St art: December 25, 2024 Dr. Naga Penn MD Other Provider Active Start: December 25, 2024 Dr. Anita Rivera MD Other Provider Active St art: December 25, 2024 Dr. Geovany Sorenson DO Other Provider Active Start: December 25, 2024 Dr. Dajuan Thompson MD Other Provider Active Star t: December 25, 2024 Dr. Dedrick Vides MD Other Provider Active Sta rt: December 25, 2024 Team Status: Active Member Role/Relationship Status Dates Morgan Barajas MANUFACTURING MAINTENANCE MECHANIC, MANUFACTURING MAINTENANCE MECHANIC-C Primary Care Provider Act john Start: December 26, 2024 Dr. Alex Mccray DO Referring Provider Active Start: December 26, 2024 Dr. Alex Mccray DO Emergency Provider Active Start: December 26, 2024 Dr. Garry Gross DO Admit Provider Active Start: December 26, 2024 Dr. Garry Gross DO Other Provider Active Start: December 26, 2024 Dr. Marcellus Gunn MD Attending Provider Active Start: December 26, 2024 Dr. Marcellus Gunn MD Other Provider Active Sta rt: December 26, 2024 Dr. Salinas Waddell MD Other Provider Active Start: December 26, 2024 Dr. Bert Byrd MD Other Provider Active Start: December 26, 2024 Dr. Enrico Bustillo MD Other Provider Active Star t: December 26, 2024 Dr. Jeovany Ovalles DO Other Provider Active Start : December 26, 2024 Dr. Ernesto Wilder MD Other Provider Active Sta rt: December 26, 2024 Dr. Zion Blount MD Other Provider Active St art: December 26, 2024 Dr. Jose Eduardo Jim MD Other Provider Active S tart: December 26, 2024 Dr. Linda Sullivan MD Other Provider Active Start: December 26, 2024 Dr. Foster Geronimo MD Other Provider Active Start : December 26, 2024 Dr. Richard Peterson MD Other Provider Active Start: December 26, 2024 Dr. Benjamin Malhotra MD Other Provider Active Start : December 26, 2024 Dr. Nicole Haywood MD Other Provider Active Star t: December 26, 2024 Dr. Raquel Foster MD Other Provider Active Sta rt: December 26, 2024 Dr. Hawa Chang MD Other Provider Active Sta rt: December 26, 2024 Dr. Sanju Woods MD Other Provider Active Star t: December 26, 2024 Dr. David Dallas MD Other Provider Active St art: December 26, 2024 Dr. Ronak Goff MD Other Provider Active Star t: December 26, 2024 Dr. Henry Cronin DO Other Provider Active St art: December 26, 2024 Dr. Naga Penn MD Other Provider Active Start: December 26, 2024 Dr. Anita Rivera MD Other Provider Active St art: December 26, 2024 Dr. Geovany Sorenson DO Other Provider Active Start: December 26, 2024 Dr. Dajuan Thompson MD Other Provider Active Star t: December 26, 2024 Dr. Dedrick Vides MD Other Provider Active Sta rt: December 26, 2024 Team Status: Active Member Role/Relationship Status Dates Morgan Barajas MANUFACTURING MAINTENANCE MECHANIC, MANUFACTURING MAINTENANCE MECHANIC-C Primary Care Provider Act john Start: December 27, 2024 Dr. Alex Mccray DO Referring Provider Active Start: December 27, 2024 Dr. Alex Mccray DO Emergency Provider Active Start: December 27, 2024 Dr. Garry Gross , DO Admit Provider Active Start: December 27, 2024 Dr. Garry Gross , DO Other Provider Active Start: December 27, 2024 Dr. Salinas Waddell MD Other Provider Active Start: December 27, 2024 Dr. Bert Byrd MD Other Provider Active Start: December 27, 2024 Dr. Enrico Bustillo MD Other Provider Active Star t: December 27, 2024 Dr. Jeovany Ovalles , Other Provider Active Start : December 27, 2024 Dr. Ernesto Wilder MD Other Provider Active Sta rt: December 27, 2024 Dr. Zion Blount MD Other Provider Active St art: December 27, 2024 Dr. Jose Eduardo Jim MD Other Provider Active S tart: December 27, 2024 Dr. Linda Sullivan MD Other Provider Active Start: December 27, 2024 Dr. Foster Geronimo MD Other Provider Active Start : December 27, 2024 Dr. Richard Peterson MD Other Provider Active Start: December 27, 2024 Dr. Benjamin Malhotra MD Other Provider Active Start : December 27, 2024 Dr. Nicole Haywood MD Other Provider Active Star t: December 27, 2024 Dr. Raquel Foster MD Other Provider Active Sta rt: December 27, 2024 Dr. Hawa Chang MD Other Provider Active Sta rt: December 27, 2024 Dr. Sanju Woods MD Other Provider Active Star t: December 27, 2024 Dr. David Dallas MD Other Provider Active St art: December 27, 2024 Dr. Ronak Goff MD Other Provider Active Star t: December 27, 2024 Dr. Henry Cronin DO Other Provider Active St art: December 27, 2024 Dr. Naga Penn MD Other Provider Active Start: December 27, 2024 Dr. Anita Rivera MD Other Provider Active St art: December 27, 2024 Dr. Geovany Sorenson , Other Provider Active Start: December 27, 2024 Dr. Dajuan Thompson MD Other Provider Active Star t: December 27, 2024 Dr. Dedrick Vides MD Other Provider Active Sta rt: December 27, 2024 Dr. Alex Jopperi , DO Attending Provider Active Start: December 27, 2024 Dr. Alex Mayen , DO Other Provider Active Star t: December 27, 2024 Dr. Marcellus Gunn MD Other Provider Active Sta rt: December 27, 2024 Team Status: Active Member Role/Relationship Status Dates Morgan Lee Karl MANUFACTURING MAINTENANCE MECHANIC, MANUFACTURING MAINTENANCE MECHANIC-C Primary Care Provider Act john Start: December 28, 2024 Dr. Alex Mccray , DO Referring Provider Active Start: December 28, 2024 Dr. Alex Mccray , DO Emergency Provider Active Start: December 28, 2024 Dr. Garry Gross , DO Admit Provider Active Start: December 28, 2024 Dr. Garry Gross , DO Other Provider Active Start: December 28, 2024 Dr. Salinas Waddell MD Other Provider Active Start: December 28, 2024 Dr. Bert Byrd MD Other Provider Active Start: December 28, 2024 Dr. Enrico Bustillo MD Other Provider Active Star t: December 28, 2024 Dr. Jeovany Ovalles , DO Other Provider Active Start : December 28, 2024 Dr. Ernesto Wilder MD Other Provider Active Sta rt: December 28, 2024 Dr. Zion Blount MD Other Provider Active St art: December 28, 2024 Dr. Jose Eduardo Jim MD Other Provider Active S tart: December 28, 2024 Dr. Linda Sullivan MD Other Provider Active Start: December 28, 2024 Dr. Foster Geronimo MD Other Provider Active Start : December 28, 2024 Dr. Richard Peterson MD Other Provider Active Start: December 28, 2024 Dr. Benjamin Malhotra MD Other Provider Active Start : December 28, 2024 Dr. Nicole Haywood MD Other Provider Active Star t: December 28, 2024 Dr. Raquel Foster MD Other Provider Active Sta rt: December 28, 2024 Dr. Hawa Chang MD Other Provider Active Sta rt: December 28, 2024 Dr. Sanju Woods MD Other Provider Active Star t: December 28, 2024 Dr. David Dallas MD Other Provider Active St art: December 28, 2024 Dr. Ronak Goff MD Other Provider Active Star t: December 28, 2024 Dr. Henry Cronin , Other Provider Active St art: December 28, 2024 Dr. Naga Penn MD Other Provider Active Start: December 28, 2024 Dr. Anita Rivera MD Other Provider Active St art: December 28, 2024 Dr. Geovany Sorenson DO Other Provider Active Start: December 28, 2024 Dr. Dajuan Thompson MD Other Provider Active Star t: December 28, 2024 Dr. Dedrick Vides MD Other Provider Active Sta rt: December 28, 2024 Dr. Alex Mayen DO Attending Provider Active Start: December 28, 2024 Dr. Alex Mayen DO Other Provider Active Star t: December 28, 2024 Dr. Marcellus Gunn MD Other Provider Active Sta rt: December 28, 2024 Team Status: Inactive Member Role/Relationship Status Dates Morgan Barajas MANUFACTURING MAINTENANCE MECHANIC, MANUFACTURING MAINTENANCE MECHANIC-C Primary Care Provider Act john Start: December 29, 2024 End: January 04, 2025 Morgan Barajas MANUFACTURING MAINTENANCE MECHANIC, MANUFACTURING MAINTENANCE MECHANIC-C Referring Provider Active Start: December 29, 2024 End: January 04, 2025 Claudia Urena MANUFACTURING MAINTENANCE MECHANIC, MANUFACTURING MAINTENANCE MECHANIC-C Attending Provider Active Start: December 29, 2024 End: January 04, 2025 Team Status: Active Member Role/Relationship Status Dates Morgan Barajas MANUFACTURING MAINTENANCE MECHANIC, MANUFACTURING MAINTENANCE MECHANIC-C Primary Care Provider Act john Start: December 29, 2024 Morgan Barajas MANUFACTURING MAINTENANCE MECHANIC, MANUFACTURING MAINTENANCE MECHANIC-C Referring Provider Active Start: December 29, 2024 Claudia Urena MANUFACTURING MAINTENANCE MECHANIC, MANUFACTURING MAINTENANCE MECHANIC-C Attending Provider Active Start: December 29, 2024 Claudia Urena NP, MANUFACTURING MAINTENANCE MECHANIC-C Other Provider Active S tart: December 29, 2024 FOR RECORDS PERTAINING TO PATIENTS WHO ARE [...] BE BASED ON THE PRIMARY CLINICAL RECORDS. [facility]. provides no warranty or guarantee of the accuracy or completeness of information in this document.
[2025-01-05 00:11] LABS: Troponin T High Sens 2 HR 17 ng/L (<=22)
[2025-01-05 01:02] VITALS: BP 123/62; PULSE 90; RESP 18; TEMP 36.6; O2SAT 95
[2025-01-05 03:00] VITALS: PULSE 89; O2SAT 93
== END 2025-01-05 03:50 | disposition home or self-care (01) ==
PROVIDERS: Emergency Provider Emergency Medicine; PCP Nurse Practitioner Adult Health; Visit Provider Emergency Medicine
DX: R06.00 Dyspnea, unspecified (principal); J44.9 Chronic obstructive pulmonary disease, unspecified; E11.9 Type 2 diabetes mellitus without complications; Z79.4 Long term (current) use of insulin; F41.9 Anxiety disorder, unspecified; D64.9 Anemia, unspecified; I25.10 Atherosclerotic heart disease of native coronary artery without angina pectoris; Z99.81 Dependence on supplemental oxygen; F32.A Depression, unspecified; E03.9 Hypothyroidism, unspecified; E78.00 Pure hypercholesterolemia, unspecified; Z79.85 Long-term (current) use of injectable non-insulin antidiabetic drugs; Z79.84 Long term (current) use of oral hypoglycemic drugs; Z79.51 Long term (current) use of inhaled steroids; Z95.5 Presence of coronary angioplasty implant and graft; Z79.890 Hormone replacement therapy; Z79.899 Other long term (current) drug therapy; Z87.891 Personal history of nicotine dependence
CPT/HCPCS: 71046; 80048; 84484; 85025; 93005; 99285

== ENCOUNTER → 2025-01-19 | Outpatient (CLI) | payer MEDICARE, MEDICAID, SELFPAY ==
[2025-01-19 12:03] LABS: Hematocrit 32.2 % (40-54); Hemoglobin 8.4 g/dL (13.0-16.5); Immature Granulocytes Count 0.040 X10^3/uL (0.0-0.0); Mean Corp Hgb Conc 26.1 g/dL (32-36); Mean Corpuscular Volume 78.7 fL (80-94); Mean Platelet Vol. 9.8 fl (6.2-12.0); NRBC Flagged by Analyzer 0 % (0-5); POSITIVE MORPHOLOGY YES; Platelet Count 214 K/mm3 (150-450); RBC Distribution Width CV 20.9 % (11.6-14.6); RBC Distribution Width SD 59.5 fl (35.1-43.9); Red Blood Count 4.09 M/mm3 (4.6-6.2); White Blood Count 10.5 K/mm3 (4.4-11.0)
[2025-01-19 12:08] LABS: Differential Indicated SCAN CRITERIA MET
[2025-01-19 12:43] LABS: Anisocytosis 2+; Differential Comment SCANNED
[2025-01-19 13:33] LABS: CRP 10.80 mg/L (0.0-3.0)
== END | disposition home or self-care (01) ==
LOC: LAB 10:32
PROVIDERS: PCP Nurse Practitioner Adult Health; Referring Provider Nurse Practitioner Acute Care; Visit Provider Nurse Practitioner Acute Care
DX: D64.9 Anemia, unspecified (principal); R10.12 Left upper quadrant pain
CPT/HCPCS: 36415; 85025; 86140

== ENCOUNTER 2025-02-24 14:30 | Outpatient (RCR) | payer MEDICARE, MEDICAID, SELFPAY ==
--- NOTE | 2025-01-13 15:33 | HP.PTEVAL ---
Patient's Visit Information Visit Information Visit Information: ZAK HOYT is a 59 year old M referred to Physical Therapy by UNRULY Tamez with a diagnosis of Debility. Date of Evaluation: 01/13/25 Physical Therapist: Antonino De La Cruz, PT, ATC Visit Plan Frequency: 2x /Week Duration: 4-6 Weeks Plan: Monitor O2 with ex's. Hold exercises temporarily if patient descends below 90% o2. B LE strengthening, gait training, balance and proprio, tranfer training, nustep, and HEP Subjective Subjective: Pt reports he was recently hospitalized secondary to his low O2 levels. Pt notes he has been on home O2 since. Pt reports he is very debilitated at this time. Pt notes he lives in assisted living right now. Pt reports someone comes to check on him every couple hours. Pt reports he is able to get himself dressed, but relies on help with his hygiene care. Pt reports he usually uses his rollator with ambulation but forgot to bring it today. pt denies any falls at this time. Pt denies any LE tingling or numbness in LE's, but does report his LE's are hyposensitive to light touch. Pt reports he recently had a lot of fluid taken off of him secondary to CHF. Pt reports his goal is to get stronger and be able to move better. Pt reports he is not in any pain this date. Objective Objective: Neuro: B LE's sensation is WNL to light touch. TU sec (decreased O2 to 89% on 4 L) ROM: B LE's are equal when compared bilaterally. MMT: B LE's are grossly rated at 4-/5 throughout Gait: Pt is able to ambulate 20 feet with WW and CGAx1 until needing to sit and rest secondary to O2 levels dropping Transfers: very limited secondary to O2 deficiencly Balance/Special Test Scores Lower Extremity Functional Score: 0 Goals Goal 1:: Pt will be able to ambulate greater than 50 feet with rollator to aid with I Goal Time Frame: 4-6 Weeks Goal 2:: Perform TUG test in under 20 seconds Goal Time Frame: 4-6 Weeks Goal 3:: Increase B LE strength x 1 grade to aid with ambulation Goal Time Frame: 4-6 Weeks Goal 4:: I with HEP Goal Time Frame: 4-6 Weeks Rehabilitation Potential Physical Therapy Diagnosis: Pt has B LE weakness, difficulty with ambulation, and difficulty with transfers secondary to debilitation Rehabilitation Potential: Good Anticipated Interventions Patient/Client Instruction: Educate patient on: Condition and Plan of Care For the Purpose of:: To improve self management Therapeutic Exercise to Include: Strength training, Endurance training, Balance training, Gait and locomotor training and Dynamic Lumbar Stabilization For the Purpose of:: To decrease pain, To increase ROM and To improve muscle performance and motor function Text: Thank you for the opportunity to evaluate your patient. For Medicare and Medicare HMO plans, please review the plan of care and approve it. It will need to be FAXED BACK to us at [phone] for Medicare purposes. For Medicare only, by signing this I certify the plan of care. Please let me know if there are questions or concerns regarding this plan of care. Physician Signature: Date:
--- NOTE | 2025-02-24 15:33 | HP.PTDCSUM_ITS ---
Discharge Summary D/C summary: It has been my pleasure to treat ZAK HOYT referred by Radha Barajas, CHEMICAL ENGRAVER-C, with the diagnosis of Debility for a total of 10 visit(s). Discharge Date: Please see the following information for a summary of their discharge status. Subjective Subjective: Pt reports he is ready to continue independently at this time. Overall Improvement % Improvement: 40 Objective Objective/Function: TU.3 sec Gait: Pt is now able to ambulate from waiting room to treatment jenkins (120 ft) without difficulty Pt is I with HEP MMT: B LE's are grossly 5/5 throughout Goals Goal 1:: Pt will be able to ambulate greater than 50 feet with rollator to aid with I Goal Progress: Goal Met Goal 2:: Perform TUG test in under 20 seconds Goal Progress: Progressing Goal 3:: Increase B LE strength x 1 grade to aid with ambulation Goal Progress: Goal Met Goal 4:: I with HEP Goal Progress: Goal Met Plan Plan: Discharge to HEP D/C Information d/c sentence: If there are questions or concerns regarding this patient's physical therapy, please feel free to call me at [phone]. Thank you for the referral of this patient. Sincerely, Antonino De La Cruz, PT, ATC Balance/Gait/Functional tests Balance/Special Test Scores Lower Extremity Functional Score: 58 Improvement % Improvement: 40
== END 2025-02-24 19:00 | disposition home or self-care (01) ==
LOC: PT 14:30
PROVIDERS: PCP Nurse Practitioner Adult Health; Referring Provider Nurse Practitioner Adult Health; Visit Provider Nurse Practitioner Adult Health
DX: R26.89 Other abnormalities of gait and mobility (principal); Z91.81 History of falling
CPT/HCPCS: 97110; 97161; 97530